=== PATIENT | female | born 1935 | race Caucasian/White ===

== ENCOUNTER 2016-10-12 15:52 | Inpatient (IN) | payer MEDICARE ==
[~2016-10-12 15:52] MED LIST: LEVOFLOXACIN 500MG-D5W PMX 500 MG in DEXTROSE/WATER 1 100ML.BAG IVPB STA
--- NOTE | 2016-10-12 16:13 | ED ---
General Adult HPI - General Source: patient, RN notes reviewed Mode of arrival: wheelchair Limitations: no limitations <Enoc Oropeza - Last Filed: 10/12/16 16:11> <Haris Owens - Last Filed: 10/12/16 19:55> - General Chief complaint: Shortness of Breath Stated complaint: SOB Time Seen by Provider: 10/12/16 15:59 - History of Present Illness Initial comments: Patient is a pleasant 80-year-old female presenting to the emergency department complaining of difficulty in breathing. Onset of symptoms was a couple of weeks ago. Symptoms have progressively worsened since that time. Symptoms do worsen with exertion. Patient does have fatigue. does have some increased leg swelling from normal. Patient does have occasional fluttering in her chest. No chest pain. Occasional nonproductive cough. (Enoc Oropeza) - Related Data Home Medications Medication Instructions Recorded Confirmed Allopurinol [Zyloprim] 300 mg PO DAILY 01/31/14 10/12/16 Furosemide [Lasix] 60 mg PO DAILY 01/31/14 10/12/16 Ibuprofen [Motrin] 800 mg PO BID 01/31/14 10/12/16 Levothyroxine Sodium [Synthroid] 100 mcg PO DAILY 01/31/14 10/12/16 Losartan [Cozaar] 50 mg PO BID 01/31/14 10/12/16 Simvastatin [Zocor] 40 mg PO HS 01/31/14 10/12/16 metFORMIN HCL [Glucophage] 500 mg PO BID 01/31/14 10/12/16 Glimepiride [Amaryl] 1 mg PO AC-BRKFST 03/10/16 10/12/16 Glucosamine HCl/Chondr Lemos A Na 1 tab PO DAILY 03/10/16 10/12/16 [Osteo Bi-Flex Caplet] Magnesium Oxide [Mag-Ox] 250 mg PO DAILY 03/10/16 10/12/16 Multivitamins, Thera [Multivitamin] 1 tab PO DAILY 03/19/16 10/12/16 hydrALAZINE HCL 25 mg PO BID 03/20/16 10/12/16 Apixaban [Eliquis] 2.5 mg PO BID 10/12/16 10/12/16 Aspirin EC [Ecotrin Low Dose] 81 mg PO DAILY 10/12/16 10/12/16 Flecainide [Tambocor] 50 mg PO BID 10/12/16 10/12/16 Pantoprazole Sodium [Protonix] 40 mg PO DAILY 10/12/16 10/12/16 Previous Rx's Medication Instructions Recorded Atenolol [Tenormin] 50 mg PO BID #60 tab 03/25/16 Allergies Allergy/AdvReac Type Severity Reaction Status Date / Time meperidine HCl [From Demerol] Allergy Nausea & Verified 10/12/16 17:33 Vomiting Penicillins Allergy Rash/Hives Verified 10/12/16 17:33 Sulfa (Sulfonamide Allergy Rash/Hives Verified 10/12/16 17:33 Antibiotics) Review of Systems ROS Other: All systems not noted in ROS Statement are negative. Constitutional: Denies: fever, chills Eyes: Denies: eye pain ENT: Denies: ear pain Respiratory: Reports: cough, dyspnea Cardiovascular: Reports: palpitations. Denies: chest pain Endocrine: Reports: fatigue Gastrointestinal: Denies: abdominal pain Genitourinary: Denies: dysuria Musculoskeletal: Denies: back pain Skin: Denies: rash Neurological: Reports: weakness (Generalized) <Enoc Oropeza - Last Filed: 10/12/16 16:11> ROS Other: All systems not noted in ROS Statement are negative. <Haris Owens - Last Filed: 10/12/16 19:55> ROS Statement: Those systems with pertinent positive or pertinent negative responses have been documented in the HPI. Past Medical History Past Medical History: Diabetes Mellitus, GERD/Reflux, Hyperlipidemia, Hypertension, Myocardial Infarction ([place]), Thyroid Disorder Last Myocardial Infarction Date:: 32 years ago History of Any Multi-Drug Resistant Organisms: None Reported Past Surgical History: Hysterectomy Additional Past Surgical History / Comment(s): hemmorrhoidectom/rectocele/ cystocele. vein stripping Past Anesthesia/Blood Transfusion Reactions: No Reported Reaction Past Psychological History: No Psychological Hx Reported Smoking Status: Never smoker Past Alcohol Use History: None Reported Past Drug Use History: None Reported - Past Family History Father Family Medical History: Coronary Artery Disease (CAD), Hyperlipidemia, Hypertension Mother Family Medical History: Unable to Obtain Sister(s) Family Medical History: Cancer <Enoc Oropeza - Last Filed: 10/12/16 16:11> General Exam Limitations: no limitations General appearance: alert, in no apparent distress Head exam: Present: atraumatic Eye exam: Present: normal appearance, PERRL ENT exam: Present: normal oropharynx Neck exam: Present: normal inspection Respiratory exam: Present: normal lung sounds bilaterally Cardiovascular Exam: Present: regular rate, normal rhythm GI/Abdominal exam: Present: soft. Absent: tenderness, guarding Extremities exam: Present: pedal edema. Absent: calf tenderness Neurological exam: Present: alert Psychiatric exam: Present: normal affect, normal mood Skin exam: Absent: rash <Enoc Oropeza - Last Filed: 10/12/16 16:11> EKG Findings - EKG Comments: EKG Findings:: Sinus rhythm at 76. First-degree AV block with a SC of 268. QRS 200. QT 452. QTC 508. Left axis. Left bundle branch block. Nonspecific ST-T. <Enoc Oropeza - Last Filed: 10/12/16 16:11> Medical Decision Making <Enoc Oropeza - Last Filed: 10/12/16 16:11> - Lab Data Result diagrams: 10/12/16 16:15 10/12/16 16:15 - Radiology Data Radiology results: report reviewed (X-ray were reviewed there is evidence of urinary fibrotic changes no acute findings otherwise), image reviewed <Haris Owens - Last Filed: 10/12/16 19:55> - Medical Decision Making I did a long discussion with the patient family regarding the findings patient will be admitted for treatment of renal failure and CHF. I did discuss the case with the attending covering Dr. Blood. (Haris Owens) - Lab Data Lab Results 10/12/16 10/12/16 10/12/16 Range/Units 16:15 16:15 16:15 WBC 9.5 (3.8-10.6) k/uL RBC 3.42 L (3.80-5.40) m/uL Hgb 10.8 L (11.4-16.0) gm/dL Hct 32.9 L (34.0-46.0) % MCV 96.0 (80.0-100.0) fL MCH 31.5 (25.0-35.0) pg MCHC 32.8 (31.0-37.0) g/dL RDW 16.0 H (11.5-15.5) % Plt Count 216 (150-450) k/uL Neutrophils % 75 % Lymphocytes % 17 % Monocytes % 5 % Eosinophils % 2 % Basophils % 0 % Neutrophils # 7.1 (1.3-7.7) k/uL Lymphocytes # 1.6 (1.0-4.8) k/uL Monocytes # 0.5 (0-1.0) k/uL Eosinophils # 0.2 (0-0.7) k/uL Basophils # 0.0 (0-0.2) k/uL PT (9.0-12.0) sec INR (<1.1) APTT (22.0-30.0) sec Sodium 141 (137-145) mmol/L Potassium 5.1 (3.5-5.1) mmol/L Chloride 108 H (98-107) mmol/L Carbon Dioxide 14 L (22-30) mmol/L Anion Gap 19 mmol/L BUN 102 H* (7-17) mg/dL Creatinine 3.41 H (0.52-1.04) mg/dL Est GFR (MDRD) Af Amer 16 (>60 ml/min/1.73 sqM) Est GFR (MDRD) Non-Af 13 (>60 ml/min/1.73 sqM) Glucose 136 H (74-99) mg/dL Calcium 9.2 (8.4-10.2) mg/dL Total Bilirubin 0.5 (0.2-1.3) mg/dL AST 23 (14-36) U/L ALT 31 (9-52) U/L Alkaline Phosphatase 107 (38-126) U/L Total Creatine Kinase 45 (30-135) U/L CK-MB (CK-2) 2.2 (0.0-2.4) ng/mL CK-MB (CK-2) Rel Index 4.9 Troponin I <0.012 (0.000-0.034) ng/mL NT-Pro-B Natriuret Pep pg/mL Total Protein 7.3 (6.3-8.2) g/dL Albumin 3.9 (3.5-5.0) g/dL 10/12/16 10/12/16 Range/Units 16:15 16:15 WBC (3.8-10.6) k/uL RBC (3.80-5.40) m/uL Hgb (11.4-16.0) gm/dL Hct (34.0-46.0) % MCV (80.0-100.0) fL MCH (25.0-35.0) pg MCHC (31.0-37.0) g/dL RDW (11.5-15.5) % Plt Count (150-450) k/uL Neutrophils % % Lymphocytes % % Monocytes % % Eosinophils % % Basophils % % Neutrophils # (1.3-7.7) k/uL Lymphocytes # (1.0-4.8) k/uL Monocytes # (0-1.0) k/uL Eosinophils # (0-0.7) k/uL Basophils # (0-0.2) k/uL PT 10.2 (9.0-12.0) sec INR 1.0 (<1.1) APTT 22.1 (22.0-30.0) sec Sodium (137-145) mmol/L Potassium (3.5-5.1) mmol/L Chloride (98-107) mmol/L Carbon Dioxide (22-30) mmol/L Anion Gap mmol/L BUN (7-17) mg/dL Creatinine (0.52-1.04) mg/dL Est GFR (MDRD) Af Amer (>60 ml/min/1.73 sqM) Est GFR (MDRD) Non-Af (>60 ml/min/1.73 sqM) Glucose (74-99) mg/dL Calcium (8.4-10.2) mg/dL Total Bilirubin (0.2-1.3) mg/dL AST (14-36) U/L ALT (9-52) U/L Alkaline Phosphatase (38-126) U/L Total Creatine Kinase (30-135) U/L CK-MB (CK-2) (0.0-2.4) ng/mL CK-MB (CK-2) Rel Index Troponin I (0.000-0.034) ng/mL NT-Pro-B Natriuret Pep 4000 pg/mL Total Protein (6.3-8.2) g/dL Albumin (3.5-5.0) g/dL Disposition <Enoc Oropeza - Last Filed: 10/12/16 16:11> <Haris Owens - Last Filed: 02/11/17 19:55> Clinical Impression: Congestive heart failure, Acute renal failure (ARF) Disposition: ADMITTED IP TO THIS HOSP Condition: Stable
[2016-10-12 16:30] LABS: Basophils % (A) 0 %; CH 32.2; CHCM 33.7; Eosinophils # (A) 0.2 k/uL (0-0.7); Eosinophils % (A) 2 %; HCT 32.9 % (34.0-46.0); HDW 3.13; HGB 10.8 gm/dL (11.4-16.0); Luc # (Auto) 0.19; Luc % (Auto) 2; Lymphocytes # (A) 1.6 k/uL (1.0-4.8); Lymphocytes % (A) 17 %; MCH 31.5 pg (25.0-35.0); MCHC 32.8 g/dL (31.0-37.0); Monocytes # (A) 0.5 k/uL (0-1.0); Monocytes % (A) 5 %; Neutrophils # (A) 7.1 k/uL (1.3-7.7); Neutrophils % (A) 75 %; RBC 3.42 m/uL (3.80-5.40); WBC 9.5 k/uL (3.8-10.6); WBC (Perox) 10.16
--- NOTE | 2016-10-12 16:30 | XR ---
EXAMINATION TYPE: XR chest 2V DATE OF EXAM: 10/12/2016 4:26 PM COMPARISON: 03/24/2016 HISTORY: Difficulty breathing. Chest pain. TECHNIQUE: Frontal and lateral views of the chest are obtained. FINDINGS: There is no heart failure nor confluent pneumonic infiltrate. There is mild coarsening of interstitial markings. There is a left axillary pacemaker with the lead tips in the right ventricle. There is no pleural effusion. IMPRESSION: Mild pulmonary fibrotic changes. No change compared to old exam.
[2016-10-12 16:40] LABS: Calcium 9.2 mg/dL (8.4-10.2); Potassium 5.1 mmol/L (3.5-5.1); Total Bilirubin 0.5 mg/dL (0.2-1.3); Total Protein 7.3 g/dL (6.3-8.2)
[2016-10-12 16:43] LABS: Partial Thromboplastin Time 22.1 sec (22.0-30.0); Prothrombin Time 10.2 sec (9.0-12.0)
[2016-10-12 16:59] LABS: Creatine Kinase 45 U/L (30-135)
[2016-10-12 17:12] LABS: Creatine Kinase MB 2.2 ng/mL (0.0-2.4); Troponin I <0.012 ng/mL (0.000-0.034)
[2016-10-12] MEDS ORDERED: FUROSEMIDE 10 MG/ML 4 ML VIAL IV SCH (20:00)
[2016-10-12] MEDS ORDERED: SODIUM CHLORIDE 0.9% 1,000 ML IV SCH (20:00)
[2016-10-12] MEDS ORDERED: LOSARTAN 50 MG TAB PO SCH (21:00)
[2016-10-12] MEDS ORDERED: metFORMIN 500 MG TAB PO SCH (21:00)
--- NOTE | 2016-10-12 21:13 | P.HPIM ---
History of Present Illness Chief complaint and history of present illness: Patient presented to the emergency room this evening with complaints of shortness of breath and weakness that has appeared to be worsening over some weeks now and getting worse to the point where she could not get up and around doing her normal activities in the house or outside. She also has noted some increase edema. Some decreased appetite. Mild cough. Shortness of breath with exertion. No definite fever or chills. No nausea or vomiting or diarrhea. She states that she has noticed abdominal girth increasing but not noticing any change in her bowel movements. No blood in her stools. She's been compliant with taking all her medications. Past medical history: 1. Patient does have a history of previous pacemaker placement for sick sinus syndrome. At one point she did have some congestive heart failure related to her bradycardia which resolved. Patient did have an echocardiogram last March which revealed an ejection fraction at that time normal at 55-60%. 2. Diabetes type 2 on oral medications 3. Hypertension 4. Hypothyroidism on replacement therapy 5. Previous surgeries that include hysterectomy, vein stripping and hemorrhoidectomy. 6. History of sleep apnea. Medications: ALLERGIES to penicillin and sulfa along with Demerol. Home medications: Please refer to list. Metformin 500 mg twice a day Hydralazine 25 mg twice a day Simvastatin 40 mg at at bedtime Protonix 40 mg daily Multiple vitamin 1 daily Mag oxide 250 mg daily Cozaar 50 mg twice a day Levothyroxin 100 g daily Ibuprofen 800 mg twice a day Glucosamine one daily Glimepiride 1 mg before breakfast Lasix 60 mg daily Flecainide 50 mg twice a day Atenolol 50 mg twice a day Aspirin 81 mg daily Eloquis 2.5 mg twice a day Allopurinol 300 mg daily. Review of systems: Basically as listed in the history of present illness Social history: The patient lives up in the [facility] and apparently is cared for by her daughter. She does not smoke or drink alcohol. Her about 10 years ago. Family history: Positive for heart disease. Father had coronary artery disease and hypertension and hyperlipidemia. Physical examination: Patient is lying in bed in no acute distress slightly flushed in the face. Temperature is 98.2 with a pulse of 70 respirations 20 and blood pressure 156/ 82. She is 96% saturated with 2 L nasal cannula. Mild facial flushing. Head and neck exam otherwise unremarkable. Extraocular movements were intact. Neck is supple without thyromegaly, adenopathy, or bruits detected. Breasts exam does not reveal any definite nodules. Lungs are generally clear to auscultation. Heart tones were somewhat distant but regular without murmurs or rubs appreciated. Abdomen is obese but positive bowel sounds. Soft and nontender without organomegaly or masses detected. Patient does have compression stockings in place but does have a grade 2 edema bilaterally without any tenderness. Neurologically she is alert and oriented. Cranial nerves intact. No focal weakness noted. Laboratory values: White count was 9.5 with a hemoglobin 10.8 and a platelet count of 216. INR is 1.0. BUN was 102 with a creatinine of 3.41 giving her GFR of 13. Sodium 141 with potassium IV 0.1 and a CO2 content of 14. Anion gap elevated at 19. Glucose is 136. Calcium was normal at 9.2. Other liver function tests and bilirubin and alk phos were normal. CK and troponin values normal. Albumin is 3.9. BNP was 4000. EKG shows a sinus rhythm with first-degree block and left axis deviation and left bundle branch block pattern. Chest x-ray is reported as mild fibrotic changes but no changes compared to last years exam in March. Impressions: 1. Acute on chronic renal failure etiology not determined at this time. Could be related to prerenal causes and need to rule out underlying urinary tract infection and sepsis. Need to check for any underlying obstruction. Patient is on multiple medications that can have some renal effects. 2. Possibility of acute congestive heart failure. 3. Hypertension 4. Hypothyroidism 5. Hyperlipidemia 6. Sleep apnea 7. Previous surgical history includes hysterectomy, hemorrhoidectomy, pacemaker placement and a stripping in the past. Plans: At this point we will attempt to rehydrate the patient gently. We will hold the patient's metformin, magnesium, losartan, ibuprofen, Lasix, and allopurinol. Renal ultrasound and echocardiogram ordered. Accu-Cheks and insulin coverage. Consult with cardiology and nephrology. Repeat renal function labs along with magnesium and thyroid function. Urinalysis and culture. Further recommendations and treatment pending clinical response and results of above. Discussed with patient and family at bedside along with the emergency room physician. Prognosis is guarded. Past Medical History Past Medical History: Diabetes Mellitus, GERD/Reflux, Hyperlipidemia, Hypertension, Myocardial Infarction ([place]), Thyroid Disorder Last Myocardial Infarction Date:: 32 years ago History of Any Multi-Drug Resistant Organisms: None Reported Past Surgical History: Hysterectomy Additional Past Surgical History / Comment(s): hemmorrhoidectom/rectocele/ cystocele. vein stripping Past Anesthesia/Blood Transfusion Reactions: No Reported Reaction Past Psychological History: No Psychological Hx Reported Smoking Status: Never smoker Past Alcohol Use History: None Reported Past Drug Use History: None Reported - Past Family History Father Family Medical History: Coronary Artery Disease (CAD), Hyperlipidemia, Hypertension Mother Family Medical History: Unable to Obtain Sister(s) Family Medical History: Cancer Medications and Allergies Home Medications Medication Instructions Recorded Confirmed Type Allopurinol [Zyloprim] 300 mg PO DAILY 01/31/14 10/12/16 History Furosemide [Lasix] 60 mg PO DAILY 01/31/14 10/12/16 History Ibuprofen [Motrin] 800 mg PO BID 01/31/14 10/12/16 History Levothyroxine Sodium [Synthroid] 100 mcg PO DAILY 01/31/14 10/12/16 History Losartan [Cozaar] 50 mg PO BID 01/31/14 10/12/16 History Simvastatin [Zocor] 40 mg PO HS 01/31/14 10/12/16 History metFORMIN HCL [Glucophage] 500 mg PO BID 01/31/14 10/12/16 History Glimepiride [Amaryl] 1 mg PO AC-BRKFST 03/10/16 10/12/16 History Glucosamine HCl/Chondr Lemos A Na 1 tab PO DAILY 03/10/16 10/12/16 History [Osteo Bi-Flex Caplet] Magnesium Oxide [Mag-Ox] 250 mg PO DAILY 03/10/16 10/12/16 History Multivitamins, Thera [Multivitamin] 1 tab PO DAILY 03/19/16 10/12/16 History hydrALAZINE HCL 25 mg PO BID 03/20/16 10/12/16 History Apixaban [Eliquis] 2.5 mg PO BID 10/12/16 10/12/16 History Aspirin EC [Ecotrin Low Dose] 81 mg PO DAILY 10/12/16 10/12/16 History Flecainide [Tambocor] 50 mg PO BID 10/12/16 10/12/16 History Pantoprazole Sodium [Protonix] 40 mg PO DAILY 10/12/16 10/12/16 History Allergies Allergy/AdvReac Type Severity Reaction Status Date / Time meperidine HCl [From Demerol] Allergy Nausea & Verified 10/12/16 17:33 Vomiting Penicillins Allergy Rash/Hives Verified 10/12/16 17:33 Sulfa (Sulfonamide Allergy Rash/Hives Verified 10/12/16 17:33 Antibiotics) Results CBC & Chem 7: 10/12/16 16:15 10/12/16 16:15
[2016-10-12 22:10] LABS: Appearance,Urine Turbid (Clear); Bacteria,Urine Many /hpf; Bilirubin,Urine Negative (Negative); Glucose,Urine (UA) Negative (Negative); Ketones,Urine Negative (Negative); Leukocyte Esterase,Urine Large (Negative); Nitrite,Urine Negative (Negative); PH, Urine 5.5 (5.0-8.0); Particle Count 7463; Protein,Urine 1+ (Negative); Specific Gravity,Urine 1.014 (1.001-1.035); Squamous Epithelial Cell,Urine 2 /hpf (0-4); UA Billing (MACRO vs. MICRO) MICRO; Urobilinogen,Urine <2.0 mg/dL (<2.0); WBC,Urine >182 /hpf (0-5)
[2016-10-12] MEDS: APIXABAN 2.5 MG TABLET PO SCH (22:23)
[2016-10-12] MEDS: hydrALAZINE HCL 25 MG TAB PO SCH (22:23)
[2016-10-12] MEDS: ATENOLOL 50 MG TAB PO SCH (22:23)
[2016-10-12] MEDS: FLECAINIDE 50 MG TAB PO SCH (22:23)
[2016-10-12] MEDS: ATORVASTATIN 20 MG TAB PO SCH (22:23)
[2016-10-12 22:24] LABS: Glucose,Whole Blood 136 mg/dL (75-99)
[2016-10-12] MEDS: INSULIN LISPRO (humaLOG) 300 UNIT/3 ML VIAL SQ SCH (22:32)
[2016-10-12] MEDS: SODIUM CHLORIDE 0.9% 1,000 ML IV SCH (22:33)
[2016-10-12] MEDS ORDERED: TEMAZEPAM 7.5 MG CAP PO PRN (23:31)
[2016-10-13 06:16] LABS: Glucose,Whole Blood 97 mg/dL (75-99)
[2016-10-13] MEDS: SODIUM CHLORIDE 0.9% 1,000 ML IV SCH (06:17)
[2016-10-13] MEDS: INSULIN LISPRO (humaLOG) 300 UNIT/3 ML VIAL SQ SCH ×4 (06:38→21:04)
[2016-10-13] MEDS: PANTOPRAZOLE 40 MG TABLET PO SCH (06:39)
[2016-10-13] MEDS: GLIMEPIRIDE 1 MG TAB PO SCH (06:39)
[2016-10-13] MEDS: LEVOTHYROXINE 100 MCG TAB PO SCH (06:39)
[2016-10-13 07:13] LABS: Anisocytosis Slight; Basophils % (A) 0 %; CHCM 33.1; Eosinophils # (A) 0.2 k/uL (0-0.7); Eosinophils % (A) 2 %; HCT 29.5 % (34.0-46.0); HDW 3.07; HGB 9.7 gm/dL (11.4-16.0); Luc # (Auto) 0.15; Luc % (Auto) 2; Lymphocytes # (A) 1.3 k/uL (1.0-4.8); Lymphocytes % (A) 17 %; MCHC 32.9 g/dL (31.0-37.0); MCV 97.4 fL (80.0-100.0); Macrocytosis Slight; Mean Platelet Volume 8.1; Monocytes # (A) 0.4 k/uL (0-1.0); Monocytes % (A) 6 %; Neutrophils # (A) 5.3 k/uL (1.3-7.7); Neutrophils % (A) 72 %; RBC 3.03 m/uL (3.80-5.40); WBC 7.3 k/uL (3.8-10.6)
[2016-10-13 07:26] LABS: Magnesium 1.9 mg/dL (1.6-2.3); Potassium 4.3 mmol/L (3.5-5.1)
--- NOTE | 2016-10-13 08:31 | US ---
EXAMINATION TYPE: US kidneys/renal and bladder DATE OF EXAM: 10/13/2016 8:18 AM COMPARISON: NONE CLINICAL HISTORY: acute renal failure. possible UTI EXAM MEASUREMENTS: Right Kidney: 11.5 x 4.6 x 5.2cm Left Kidney: 10.6 x 3.9 x 4.9cm TECHNOLOGIST IMPRESSION: There is no evidence for hydronephrosis at this point in time. No nephroli thiasis is seen. No masses are identified. The urinary bladder is anechoic. Bilateral ureteral jet s are seen. Right Kidney: No hydronephrosis or masses seen. There is normal cortical medullary differentiation. N o shadowing renal calculi. Left Kidney: No hydronephrosis or masses seen. There is normal cortical medullary differentiation. No shadowing renal calculi. Bladder: wnl Bilateral Jets seen: Yes IMPRESSION: No evidence of hydronephrosis, nephrolithiasis, or medical renal disease.
[2016-10-13] MEDS: hydrALAZINE HCL 25 MG TAB PO SCH ×2 (08:42→20:08)
[2016-10-13] MEDS: FLECAINIDE 50 MG TAB PO SCH ×2 (08:42→20:08)
[2016-10-13] MEDS: ASPIRIN 81 MG CHEW PO SCH (08:42)
[2016-10-13] MEDS: ATENOLOL 50 MG TAB PO SCH ×2 (08:42→20:08)
[2016-10-13] MEDS: APIXABAN 2.5 MG TABLET PO SCH ×2 (08:42→20:08)
[2016-10-13] MEDS ORDERED: NON-FORMULARY DRUG (Glucosamine Hcl/Chondr Su A Na [Osteo Bi-Flex Caplet] 1 TAB) PO SCH (09:00)
[2016-10-13] MEDS ORDERED: ALLOPURINOL 300 MG TAB PO SCH (09:00)
[2016-10-13] MEDS ORDERED: ALLOPURINOL 100 MG TAB PO SCH (09:00)
--- NOTE | 2016-10-13 09:34 | P.NPCON ---
History of Present Illness - Reason for Consult Consult date: 10/13/16 acute renal failure - History of Present Illness 80 year old female came in with weakness. Noted in the ED to have [id number]/ 3.4. Baseline creat is 1.2-1.4. She was recently started on lasix 60mg qd and is taking motrin 800mg bid (has been fro a long time). UA + for a UTI. Started on IVf and creat has improved to 2.9. No diarrhea but no no appetite. Renal US was negative. Review of Systems All systems: negative Past Medical History Past Medical History: Diabetes Mellitus, GERD/Reflux, Hyperlipidemia, Hypertension, Myocardial Infarction ([place]), Thyroid Disorder Last Myocardial Infarction Date:: 32 years ago History of Any Multi-Drug Resistant Organisms: None Reported Past Surgical History: Hysterectomy Additional Past Surgical History / Comment(s): hemmorrhoidectom/rectocele/ cystocele. vein stripping Past Anesthesia/Blood Transfusion Reactions: No Reported Reaction Type of Cardiac Device: Permanent Pacemaker Device Placement Date:: 03/2016 Past Psychological History: No Psychological Hx Reported Smoking Status: Never smoker Past Alcohol Use History: None Reported Past Drug Use History: None Reported - Past Family History Father Family Medical History: Coronary Artery Disease (CAD), Hyperlipidemia, Hypertension Mother Family Medical History: Unable to Obtain Sister(s) Family Medical History: Cancer Medications and Allergies Home Medications Medication Instructions Recorded Confirmed Type Allopurinol [Zyloprim] 300 mg PO DAILY 01/31/14 10/12/16 History Furosemide [Lasix] 60 mg PO DAILY 01/31/14 10/12/16 History Ibuprofen [Motrin] 800 mg PO BID 01/31/14 10/12/16 History Levothyroxine Sodium [Synthroid] 100 mcg PO DAILY 01/31/14 10/12/16 History Losartan [Cozaar] 50 mg PO BID 01/31/14 10/12/16 History Simvastatin [Zocor] 40 mg PO HS 01/31/14 10/12/16 History metFORMIN HCL [Glucophage] 500 mg PO BID 01/31/14 10/12/16 History Glimepiride [Amaryl] 1 mg PO AC-BRKFST 03/10/16 10/12/16 History Glucosamine HCl/Chondr Lemos A Na 1 tab PO DAILY 03/10/16 10/12/16 History [Osteo Bi-Flex Caplet] Magnesium Oxide [Mag-Ox] 250 mg PO DAILY 03/10/16 10/12/16 History Multivitamins, Thera [Multivitamin] 1 tab PO DAILY 03/19/16 10/12/16 History hydrALAZINE HCL 25 mg PO BID 03/20/16 10/12/16 History Apixaban [Eliquis] 2.5 mg PO BID 10/12/16 10/12/16 History Aspirin EC [Ecotrin Low Dose] 81 mg PO DAILY 10/12/16 10/12/16 History Flecainide [Tambocor] 50 mg PO BID 10/12/16 10/12/16 History Pantoprazole Sodium [Protonix] 40 mg PO DAILY 10/12/16 10/12/16 History Allergies Allergy/AdvReac Type Severity Reaction Status Date / Time meperidine HCl [From Demerol] Allergy Nausea & Verified 10/12/16 17:33 Vomiting Penicillins Allergy Rash/Hives Verified 10/12/16 17:33 Sulfa (Sulfonamide Allergy Rash/Hives Verified 10/12/16 17:33 Antibiotics) Physical Exam Vitals: Vital Signs Temp Pulse Resp BP Pulse Ox 10/13/16 08:00 96.9 F L 78 20 115/59 96 10/13/16 04:00 97.4 F L 75 18 113/56 98 10/13/16 00:00 97.0 F L 61 17 131/60 100 Intake and Output 10/12/16 10/13/16 10/13/16 22:59 06:59 14:59 Intake Total 400 240 Output Total 350 525 Balance -350 -125 240 Intake: Oral 400 240 Output: Urine 350 525 Other: Voiding Method Toilet # Voids 1 Weight 96.8 kg 96.2 kg - Constitutional General appearance: cooperative - Respiratory Respiratory: bilateral: CTA - Cardiovascular Rhythm: regular Heart sounds: normal: S1, S2 leg Peripheral Edema: bilateral: Trace - Gastrointestinal General gastrointestinal: normal bowel sounds, soft Results - Lab Results Most recent lab results Calcium 9.0 mg/dL (8.4-10.2) 10/13/16 05:55 Magnesium 1.9 mg/dL (1.6-2.3) 10/13/16 05:55 10/13/16 05:55 10/13/16 05:55 Assessment and Plan Plan: Assessment: 1. Nonoliguric BETINA due to volume depletion and chronic Motrin. 2. Stage III CKD with baseline creatinien 1.2-1.4 due to nephroslcerosis. 3. Metabolc Acidosis 4. UTI Plan: 1. Change IVF to D5W with 150meq NaHCO3. 2. Hold metformin. 3. Check BMP in am. 4. On levaquin for UTI.
--- NOTE | 2016-10-13 10:08 | P.PN ---
Progress Note - Text The patient is an 80-year-old female who presented yesterday to the emergency room with increasing weakness and fluid retention. She did have some dysuria. She was found to have acute renal failure with acute kidney injury nonoliguric with a initial BUN of 102 and creatinine of 3.41 and GFR of 13. Her furosemide and some of her other home medications have been held and she has been hydrated through the night. She also has had 1 dose of Levaquin and has been found to have marked pyuria in her urine. Culture pending. Patient herself is alert and oriented and states she feels somewhat better. Denies any unusual pain or shortness of breath. Vital signs reveal temperature of 96.9 with a pulse of 78 and respirations 20 and nonlabored. Blood pressure is 115/59 and she is 96% saturated on 2 L. Head and neck exam unremarkable. Lung and heart exam is clear at this time. Monitor shows sinus rhythm and at times pacemaker rhythm through the night. Patient still with a grade 1 distal edema. Some improvement since yesterday No focal neurological changes. Patient has put out about 900 mL of fluid since admission. Her weight is slightly down though from 96.8 kg to 96.2 kg. Laboratory values: White count is stable at 7.3 with slightly decreased hemoglobin 9.7 after hydration. Platelet count 183. BUN is 96 with a creatinine of 2.9 and a GFR of 16 showing hottest improvement over yesterday's. Blood sugar is 97. CO2 content slightly increased at 15. Potassium is 4.3 and sodium 142. Other testing showed a normal TSH 1.06 and normal magnesium 1.9. A urinalysis did reveal large leukocyte esterase with greater than 182 white cells. A bladder and kidney ultrasound did not show any evidence of obstruction or hydronephrosis. Impressions and plans: Patient has been seen by nephrology this morning. Their impressions are the patient has nonoliguric acute kidney injury from volume depletion and usage of anti-inflammatory medicine. This is associated with metabolic acidosis and likely an underlying urinary tract infection with possible sepsis and inflammatory response syndrome. Fluid administration has been changed per nephrology. Patient did receive a dose of Levaquin pending culture of her urine. Patient is ALLERGIC to penicillin and sulfa. Repeat laboratory values for tomorrow. We'll continue to hold some of her home medications which include her metformin , magnesium, losartan, ibuprofen, Lasix and allopurinol. Some of which may be reinstated pending clinical response. Anemia likely related to underlying kidney disease. Further workup may be needed if persistent. Protein electrophoresis ordered. Dr. Phil Blood to resume care tomorrow.
[2016-10-13] MEDS: DEXTROSE 5% IN WATER 1,000 ML with SODIUM BICARB (1 MEQ/ML) 150 ML IV SCH ×2 (11:29→21:01)
[2016-10-13] MEDS: MULTIVITAMINS, THERA 1 EACH TAB PO SCH (11:31)
[2016-10-13 11:34] LABS: Glucose,Whole Blood 110 mg/dL (75-99)
--- NOTE | 2016-10-13 11:41 | CONS ---
DATE OF CONSULTATION: CHIEF COMPLAINT: Shortness of breath Yamilet is an 80-year-old lady with history of type 2 diabetes, hypertension, hypothyroidism, sleep apnea, who presented to the hospital complaining of feeling fatigued, tired, and shortness of breath that has been getting worse over the last 1 to 2 weeks prior to coming in. She was getting tired and short of breath with very minimal activity. While I do not have LV function from this admission, she had an echo in the past that showed normal LV systolic function. She had been diuresed and developed significant prerenal azotemia. Her diuretics are currently on hold and she is receiving IV fluids. I do not believe she came in with congestive heart failure. Her chest x-ray did not reveal pulmonary congestion. She does not have significant leg edema. She had elevated BNP. Past medical history is significant for hypertension, diabetes, dyslipidemia, sick sinus syndrome, status post permanent pacemaker placement. Hypothyroidism, sleep apnea, hysterectomy, vein stripping hemorrhoidectomy, history of atrial fibrillation. Medications include: 1. Glucophage 500 b.i.d. 2. Hydralazine 25 b.i.d. 3. Zocor 40 daily. 4. Protonix. 5. Cozaar 50 b.i.d. 6. Synthroid. 7. Lasix. 8. Amaryl. 9. Tambocor. 10. Tenormin. 11. Zyloprim. 12. Eliquis. ALLERGIES: DEMEROL, PENICILLIN AND SULFA. FAMILY HISTORY: Negative for premature coronary artery disease. SOCIAL HISTORY: Negative for current smoking, ETOH abuse, or drug abuse. REVIEW OF SYSTEMS: HEENT: Unremarkable. CARDIAC: As described above. RESPIRATORY: As described above. GI: Negative. GENITOURINARY: As described above. PSYCHOSOCIAL: Negative. ENDOCRINE: Negative. Dermatological: Negative. CONSTITUTIONAL: Significant for not feeling well. Oncological: Negative. The rest of the system review is not relevant. EKG shows sinus rhythm with left bundle branch block with occasional PVCs. ASSESSMENT: 1. Acute exacerbation of chronic renal failure, shortness of breath, probably unrelated to heart failure. 2. Hypertension. 3. Paroxysmal atrial fibrillation. 4. Sick sinus syndrome, status post permanent pacemaker placement. I agree with holding the diuretics at this time. Continue the atenolol, aspirin and Eliquis, Apresoline and Insulin. Continue the Tambocor also.
[2016-10-13] MEDS ORDERED: MAGNESIUM OXIDE 250 MG TAB PO SCH (12:00)
[2016-10-13 13:58] LABS: Hemoglobin A1C 6.3 % (4.2-6.1)
[2016-10-13 16:39] LABS: Glucose,Whole Blood 164 mg/dL (75-99)
[2016-10-13] MEDS: ATORVASTATIN 20 MG TAB PO SCH (20:08)
[2016-10-13 21:42] LABS: Glucose,Whole Blood 195 mg/dL (75-99)
[2016-10-14 07:04] LABS: Glucose,Whole Blood 157 mg/dL (75-99)
[2016-10-14] MEDS: PANTOPRAZOLE 40 MG TABLET PO SCH (07:08)
[2016-10-14] MEDS: INSULIN LISPRO (humaLOG) 300 UNIT/3 ML VIAL SQ SCH ×4 (07:08→22:15)
[2016-10-14] MEDS: GLIMEPIRIDE 1 MG TAB PO SCH (07:08)
[2016-10-14] MEDS: LEVOTHYROXINE 100 MCG TAB PO SCH (07:08)
[2016-10-14 07:17] LABS: Calcium 9.1 mg/dL (8.4-10.2); Potassium 4.2 mmol/L (3.5-5.1)
--- NOTE | 2016-10-14 07:37 | ECHOF ---
Referral Reason: MEASUREMENTS -------- HEIGHT: 167.6 cm WEIGHT: 97.5 kg BP: 115/59 IVSd: 1.1 cm (0.6 - 1.1) LVIDd: 4.9 cm (3.9 - 5.3) LVPWd: 1.1 cm (0.6 - 1.1) LVIDs: 3.4 cm LA Diam: 3.9 cm (2.7 - 3.8) RVIDd: 3.9 cm (< 3.3) LAESV Index (A-L): 30.66 ml/m Ao Diam: 3.4 cm (2.0 - 3.7) AV Cusp: 2.0 cm (1.5 - 2.6) EPSS: 1.0 cm MV E Earnest: 1.29 m/s MV DecT: 194 ms MV A Earnest: 0.74 m/s MV E/A Ratio: 1.75 AV maxP.45 mmHg AV meanP.26 mmHg RAP: 5.00 mmHg RVSP: 48.16 mmHg MV EF SLOPE: 39.96 mm/s (70 - 150) MV EXCURSION: 17.70 mm (> 18.000) FINDINGS -------- Sinus rhythm with extra systolic beats. This was a technically good study. The left ventricular size is normal. There is borderline concentric left ventricular hypertrophy. Overall left ventricular systolic function is normal with, an EF between 55 - 60 %. The right ventricle is moderately enlarged. LA is midly dilated 29-33ml/m2. The right atrium is normal in size. Aortic valve is trileaflet and is mildly thickened. There is mild aortic stenosis present. Peak/mean gradient across the Aortic Valve is 13.45mmHg / 7.26mmHg. The mitral valve leaflets are mildly thickened. Mild mitral annular calcification present. Mild mitral regurgitation is present. Mild tricuspid regurgitation present. There is moderate pulmonary hypertension. The right ventricular systolic pressure, as measured by Doppler, is 48.16mmHg. Trace/mild (physiologic) pulmonic regurgitation. The aortic root size is normal. The inferior vena cava is mildly dilated. There is no pericardial effusion. CONCLUSIONS -------- 1. Sinus rhythm with extra systolic beats. 2. There is mild aortic stenosis present. 3. Peak/mean gradient across the Aortic Valve is 13.45mmHg / 7.26mmHg. 4. The mitral valve leaflets are mildly thickened. 5. Mild mitral annular calcification present. 6. Mild mitral regurgitation is present. 7. Mild tricuspid regurgitation present. 8. There is moderate pulmonary hypertension. 9. The right ventricular systolic pressure, as measured by Doppler, is 48.16mmHg. 10. Trace/mild (physiologic) pulmonic regurgitation. 11. The aortic root size is normal. 12. This was a technically good study. 13. The inferior vena cava is mildly dilated. 14. There is no pericardial effusion. 15. The left ventricular size is normal. 16. There is borderline concentric left ventricular hypertrophy. 17. Overall left ventricular systolic function is normal with, an EF between 55 - 60 %. 18. The right ventricle is moderately enlarged. 19. LA is midly dilated 29-33ml/m2. 20. The right atrium is normal in size. 21. Aortic valve is trileaflet and is mildly thickened. POTASH FLAKER: Payton Duenas RDCS
[2016-10-14 09:25] LABS: Anisocytosis Slight; CH 32.2; CHCM 33.8; HCT 28.7 % (34.0-46.0); HDW 3.08; HGB 9.6 gm/dL (11.4-16.0); MCH 32.1 pg (25.0-35.0); MCHC 33.4 g/dL (31.0-37.0); Mean Platelet Volume 8.3; RBC 2.99 m/uL (3.80-5.40); WBC 7.2 k/uL (3.8-10.6)
[2016-10-14] MEDS: DEXTROSE 5% IN WATER 1,000 ML with SODIUM BICARB (1 MEQ/ML) 150 ML IV SCH (09:33)
[2016-10-14] MEDS: hydrALAZINE HCL 25 MG TAB PO SCH ×2 (09:34→22:14)
[2016-10-14] MEDS: MULTIVITAMINS, THERA 1 EACH TAB PO SCH (09:34)
[2016-10-14] MEDS: APIXABAN 2.5 MG TABLET PO SCH ×2 (09:34→22:14)
[2016-10-14] MEDS: ASPIRIN 81 MG CHEW PO SCH (09:35)
[2016-10-14] MEDS: ATENOLOL 50 MG TAB PO SCH ×2 (09:35→22:14)
[2016-10-14] MEDS: FLECAINIDE 50 MG TAB PO SCH ×2 (09:35→22:14)
--- NOTE | 2016-10-14 11:11 | P.PN ---
Subjective Principal diagnosis: Renal failure This is an 80-year-old female with history of diabetes, hypertension, hyperlipidemia, hypothyroidism, sleep apnea, sick sinus syndrome with prior pacemaker implantation, paroxysmal atrial fibrillation who follows with Dr. Starr in the office. She presented to the hospital mainly with symptoms of feeling fatigued and tired. She also states that she's had progressively worsening shortness of breath. Patient had been diuresed significantly and developed prerenal azotemia. Currently her diuretics are on hold and she is receiving IV fluids. Chest x-ray on admission did not reveal any evidence of pulmonary congestion. Echocardiogram with Doppler study performed on admission revealed an ejection fraction of 55-60%. Blood pressure this morning 140/68 heart rate in the 60s. Potassium 4.2, BUN 77, creatinine 2.5. Patient was seen and examined, overall she states she feels well. Denies any shortness of breath. Objective - Vital Signs Vital signs: Vital Signs Temp 97.0 F L 10/14/16 08:00 Pulse 67 10/14/16 08:00 Resp 18 10/14/16 08:00 BP 149/68 10/14/16 08:00 Pulse Ox 96 10/14/16 08:00 Intake & Output 10/13/16 10/14/16 10/14/16 18:59 06:59 18:59 Intake Total 1380 1000 420 Output Total 300 600 600 Balance 1080 400 -180 Weight 97.4 kg Intake: IV 1000 Dextrose 5% in Water 1, 1000 000 ml @ 100 mls/hr IV . [id number] [place] with Sodium Bicarb (1 Meq/ml) 150 ml Rx#:[id number] Intake, IV Titration 800 Amount Dextrose 5% in Water 1, 400 000 ml @ 100 mls/hr IV . [id number] [place] with Sodium Bicarb (1 Meq/ml) 150 ml Rx#:[id number] Sodium Chloride 0.9% 1, 400 000 ml @ 100 mls/hr IV . Q10H [place] Rx#:[id number] Oral 580 420 Output: Urine 300 600 600 Other: Voiding Method Toilet Toilet Toilet # Voids 1 - Exam PHYSICAL EXAMINATION: HEENT: Head is atraumatic, normocephalic. Pupils equal, round. Neck is supple. There is no elevated jugular venous pressure. HEART EXAMINATION: Heart S1, S2 normal. No murmur or gallop heard. CHEST EXAMINATION: Lungs are clear to auscultation and precussion. No chest wall tenderness is noted on palpation or with deep breathing. ABDOMEN: Soft, nontender. Bowel sounds are heard. No organomegaly noted. EXTREMITIES: 2+ peripheral pulses with trace evidence of peripheral edema and no calf tenderness noted. NEUROLOGIC patient is awake, alert and oriented -3. . - Labs CBC & Chem 7: 10/14/16 05:26 10/14/16 05:47 Labs: Abnormal Lab Results - Last 24 Hours (Table) 10/13/16 10/13/16 10/13/16 Range/Units 05:55 11:33 16:37 RBC (3.80-5.40) m/uL Hgb (11.4-16.0) gm/dL Hct (34.0-46.0) % RDW (11.5-15.5) % Chloride (98-107) mmol/L BUN (7-17) mg/dL Creatinine (0.52-1.04) mg/dL Glucose (74-99) mg/dL POC Glucose (mg/dL) 110 H 164 H (75-99) mg/dL Hemoglobin A1c 6.3 H (4.2-6.1) % 10/13/16 10/14/16 10/14/16 Range/Units 20:58 05:26 05:47 RBC 2.99 L (3.80-5.40) m/uL Hgb 9.6 L (11.4-16.0) gm/dL Hct 28.7 L (34.0-46.0) % RDW 16.0 H (11.5-15.5) % Chloride 108 H (98-107) mmol/L BUN 77 H (7-17) mg/dL Creatinine 2.53 H (0.52-1.04) mg/dL Glucose 150 H (74-99) mg/dL POC Glucose (mg/dL) 195 H (75-99) mg/dL Hemoglobin A1c (4.2-6.1) % 10/14/16 Range/Units 06:26 RBC (3.80-5.40) m/uL Hgb (11.4-16.0) gm/dL Hct (34.0-46.0) % RDW (11.5-15.5) % Chloride (98-107) mmol/L BUN (7-17) mg/dL Creatinine (0.52-1.04) mg/dL Glucose (74-99) mg/dL POC Glucose (mg/dL) 157 H (75-99) mg/dL Hemoglobin A1c (4.2-6.1) % Microbiology - Last 24 Hours (Table) 10/12/16 21:40 Urine Culture - Preliminary Urine,Clean Catch Assessment and Plan (1) Pacemaker Status: Acute (2) Sleep apnea Status: Acute (3) Acute renal failure (ARF) Status: Acute (4) Diabetes mellitus Status: Acute (5) Hypertension Status: Acute (6) Paroxysmal a-fib Status: Acute Plan: From cardiology's perspective, we will recommend to continue the patient on her current medications. Continue to hold diuretics at this time. Once she is discharged home from the hospital we'll make her follow-up appointment with Dr. Starr in the office post discharge. DNP note has been reviewed, I agree with a documented findings and plan of care. Patient was seen and examined.
[2016-10-14 12:15] LABS: Glucose,Whole Blood 150 mg/dL (75-99)
[2016-10-14 14:27] VITALS: BMI 34.6
--- NOTE | 2016-10-14 15:07 | PN ---
Patient is seen for followup for acute kidney injury. She had been taking Motrin at home prior to admission. She is being treated for urinary tract infection and is maintained on IV fluids. Her serum creatinine has improved from 3.4 on admission to 2.53 now. Patient has had good urine output. She is maintained on a bicarb drip. On examination, blood pressure is 137/62, heart rate 62 per minute. She is afebrile. Examination of the heart, S1 and S2. Examination of the lungs, bilateral breath sounds are heard. Abdomen is soft, nontender. Examination of lower extremities shows no significant edema. [employer] exam is grossly intact. Labs show sodium 143, potassium 4.2, chloride 108, CO2 is 24, BUN 77, serum creatinine 2.53, hemoglobin at 9.6 g/dL. ASSESSMENT: 1. Acute kidney injury, prerenal, currently improving. Also, a component from acute kidney injury from NSAIDs. Patient is advised to avoid the use of NSAIDs on a long-term basis. 2. Hypovolemia. Continue IV fluids. 3. Non-gap metabolic acidosis secondary to renal failure, maintained on IV bicarb, currently improved. Will switch the bicarb to IV saline. 4. Urinary tract infection with gram-negative bacilli on urine culture. Plan is DC IV bicarb, switch fluids to normal saline. Avoid NSAIDs. Repeat labs in a.m.
[2016-10-14 16:40] LABS: Glucose,Whole Blood 86 mg/dL (75-99)
[2016-10-14] MEDS: SODIUM CHLORIDE 0.9% 1,000 ML IV SCH (17:25)
[2016-10-14 20:43] LABS: Glucose,Whole Blood 177 mg/dL (75-99)
[2016-10-14] MEDS: ATORVASTATIN 20 MG TAB PO SCH (22:14)
[2016-10-15 06:12] LABS: Glucose,Whole Blood 134 mg/dL (75-99)
--- NOTE | 2016-10-15 07:29 | PN ---
CHIEF COMPLAINT: Re-evaluation. HISTORY OF PRESENT ILLNESS: This is an elderly female, 80 years of age, was admitted to the hospital with feeling weak. The patient is noted to have evidence suggestive of acute on chronic renal failure. The patient medications have been held. She has been taking some nonsteroidals. Patient's general condition is improved. She is cautiously being hydrated. She denies any shortness of breath, cough, hemoptysis. Her echocardiogram reveals ejection fraction about 55%. Renal ultrasound reveals adequate renal size and structure. The patient has a pacemaker. REVIEW OF SYSTEMS: NEURO: Denies any headaches, dizziness. PSYCH: No anxiety. CARDIAC: No chest pain, angina, palpitation. RESPIRATORY: No shortness of breath, cough. GI: No nausea, vomiting, abdominal pain, diarrhea. : No symptoms of dysuria, hematuria. EXTREMITIES: No pain. Does have some edema. CONSTITUTIONAL: No fever or chills. PHYSICAL EXAMINATION: A pleasant female in no distress. Vital signs reveal temperature 97, pulse 67, respirations 18, blood pressure 149/60, pulse ox of 96% on room air. HEENT: Normocephalic. NECK: No JVD. Chest is clear to auscultation. CARDIAC: Normal S1, S2 with no gallops. Systolic murmur 2/6 left sternal border. ABDOMEN: Soft. Bowel sounds normal. No organomegaly. No bruits. Extremities reveal trace edema. Neurologically awake, alert, oriented with well-coordinated movements. LABORATORY ASSESSMENT: Electrolytes which are normal. Patient's BUN 77, creatinine 2.53, glucose 150. ASSESSMENT: 1. Acute on chronic renal failure, improving. 2. ASHD. 3. Hypertensive cardiovascular disease. 4. Diabetes mellitus. 5. Degenerative arthritis. PLAN: The patient at present is stable. Continue present medical regimen. Patient's condition discussed with the patient. Prognosis guarded. Patient's urine culture does reveal over 100,000 colonies of gram-negative bacilli. Patient will be placed on oral antibiotic. Patient's general condition discussed with the patient and daughter. Overall prognosis remains guarded.
[2016-10-15 07:33] LABS: Calcium 8.5 mg/dL (8.4-10.2)
[2016-10-15] MEDS: SODIUM CHLORIDE 0.9% 1,000 ML IV SCH ×2 (08:06→16:02)
[2016-10-15] MEDS: PANTOPRAZOLE 40 MG TABLET PO SCH (08:08)
[2016-10-15] MEDS: INSULIN LISPRO (humaLOG) 300 UNIT/3 ML VIAL SQ SCH ×4 (08:08→22:37)
[2016-10-15] MEDS: GLIMEPIRIDE 1 MG TAB PO SCH (08:08)
[2016-10-15] MEDS: LEVOTHYROXINE 100 MCG TAB PO SCH (08:08)
[2016-10-15] MEDS: ASPIRIN 81 MG CHEW PO SCH (08:09)
[2016-10-15] MEDS: APIXABAN 2.5 MG TABLET PO SCH ×2 (08:09→22:36)
[2016-10-15] MEDS: FLECAINIDE 50 MG TAB PO SCH ×2 (08:10→22:36)
[2016-10-15] MEDS: ATENOLOL 50 MG TAB PO SCH ×2 (08:10→22:36)
[2016-10-15] MEDS: hydrALAZINE HCL 25 MG TAB PO SCH ×2 (10:00→22:37)
[2016-10-15] MEDS: MULTIVITAMINS, THERA 1 EACH TAB PO SCH (10:01)
[2016-10-15 11:40] LABS: Glucose,Whole Blood 153 mg/dL (75-99)
--- NOTE | 2016-10-15 13:15 | P.PN ---
Subjective Principal diagnosis: Renal failure This is an 80-year-old female with history of diabetes, hypertension, hyperlipidemia, hypothyroidism, sleep apnea, sick sinus syndrome with prior pacemaker implantation, paroxysmal atrial fibrillation who follows with Dr. Starr in the office. She presented to the hospital mainly with symptoms of feeling fatigued and tired. She also states that she's had progressively worsening shortness of breath. Patient had been diuresed significantly and developed prerenal azotemia. Currently her diuretics are on hold and she is receiving IV fluids. Chest x-ray on admission did not reveal any evidence of pulmonary congestion. Echocardiogram with Doppler study performed on admission revealed an ejection fraction of 55-60%. Blood pressure this morning 118/60, heart rate in the 60s. Potassium 4.0, BUN 63 , creatinine 2.09 Patient was seen and examined, overall she states she feels well. Denies any shortness of breath. Objective - Vital Signs Vital signs: Vital Signs Temp 97.1 F L 10/15/16 08:00 Pulse 62 10/15/16 08:00 Resp 18 10/15/16 08:00 BP 118/57 10/15/16 08:00 Pulse Ox 96 10/15/16 08:35 Intake & Output 10/14/16 10/15/16 10/15/16 18:59 06:59 18:59 Intake Total 900 600 240 Output Total 1400 925 400 Balance -500 -325 -160 Weight 97.4 kg 99.2 kg Intake: Oral 900 600 240 Output: Urine 1400 925 400 Other: Voiding Method Toilet Toilet Toilet # Voids 2 - Exam PHYSICAL EXAMINATION: HEENT: Head is atraumatic, normocephalic. Pupils equal, round. Neck is supple. There is no elevated jugular venous pressure. HEART EXAMINATION: Heart S1, S2 normal. No murmur or gallop heard. CHEST EXAMINATION: Lungs are clear to auscultation and precussion. No chest wall tenderness is noted on palpation or with deep breathing. ABDOMEN: Soft, nontender. Bowel sounds are heard. No organomegaly noted. EXTREMITIES: 2+ peripheral pulses with trace evidence of peripheral edema and no calf tenderness noted. NEUROLOGIC patient is awake, alert and oriented -3. . - Labs CBC & Chem 7: 10/14/16 05:26 10/15/16 06:19 Labs: Abnormal Lab Results - Last 24 Hours (Table) 10/14/16 10/15/16 10/15/16 Range/Units 20:42 06:10 06:19 Chloride 108 H (98-107) mmol/L BUN 63 H (7-17) mg/dL Creatinine 2.09 H (0.52-1.04) mg/dL Glucose 131 H (74-99) mg/dL POC Glucose (mg/dL) 177 H 134 H (75-99) mg/dL 10/15/16 Range/Units 11:38 Chloride (98-107) mmol/L BUN (7-17) mg/dL Creatinine (0.52-1.04) mg/dL Glucose (74-99) mg/dL POC Glucose (mg/dL) 153 H (75-99) mg/dL Microbiology - Last 24 Hours (Table) 10/12/16 21:40 Urine Culture - Final Urine,Clean Catch Escherichia coli Assessment and Plan (1) Pacemaker Status: Acute (2) Sleep apnea Status: Acute (3) Acute renal failure (ARF) Status: Acute (4) Diabetes mellitus Status: Acute (5) Hypertension Status: Acute (6) Paroxysmal a-fib Status: Acute Plan: From cardiology's perspective, we will recommend to continue the patient on her current medications. Continue to hold diuretics at this time. Once she is discharged home from the hospital we'll make her follow-up appointment with Dr. Starr in the office post discharge. DNP note has been reviewed, I agree with a documented findings and plan of care. Patient was seen and examined.
[2016-10-15 16:48] LABS: Glucose,Whole Blood 199 mg/dL (75-99)
--- NOTE | 2016-10-15 19:17 | PN ---
Patient is seen for follow-up for acute kidney injury. Her renal function has been improving with serum creatinine now down to 2.02 from 3.4 mg/dL on initial admission. Patient is maintained on IV fluids at 75 mL an hour. She has good urine output. On examination, blood pressure is 130/60, heart rate 64 per minute. She is afebrile. Examination of the heart S1 and S2. Examination of the lungs: Bilateral breath sounds are heard. ABDOMEN: Soft, nontender. Examination of lower extremities shows no significant edema. [employer] exam is grossly intact. Patient is moving all 4 extremities. Labs revealed, sodium 142, potassium 4.0, BUN 63, serum creatinine 2.0 ASSESSMENT: 1. Acute kidney injury. Prerenal as well as from nonsteroidal anti-inflammatory agents. Currently maintained on IV fluids with improving renal function. 2. Escherichia coli urinary tract infection, maintained on Rocephin. 3. Hypovolemia, currently on normal saline at 75 mL an hour. 4. Diabetes, maintained on Amaryl. 5. Dyslipidemia. 6. Paroxysmal atrial fibrillation, currently with controlled ventricular response, maintained on atenolol and Eliquis. PLAN: Continue IV fluids. The patient can likely be discharged by tomorrow. She will need to follow up as outpatient.
[2016-10-15 20:43] LABS: Glucose,Whole Blood 149 mg/dL (75-99)
[2016-10-15] MEDS ORDERED: ACETAMINOPHEN TAB 500 MG TAB PO PRN (22:11)
[2016-10-15] MEDS: ATORVASTATIN 20 MG TAB PO SCH (22:36)
[2016-10-16 05:58] LABS: Glucose,Whole Blood 117 mg/dL (75-99)
[2016-10-16 06:52] LABS: Calcium 8.5 mg/dL (8.4-10.2)
[2016-10-16] MEDS: GLIMEPIRIDE 1 MG TAB PO SCH (06:54)
[2016-10-16] MEDS: LEVOTHYROXINE 100 MCG TAB PO SCH (06:54)
[2016-10-16] MEDS: PANTOPRAZOLE 40 MG TABLET PO SCH (06:54)
--- NOTE | 2016-10-16 06:57 | PN ---
CHIEF COMPLAINT: Re-evaluation. HISTORY OF PRESENT ILLNESS: This 80-year-old was admitted to the hospital with weakness and noted to have evidence suggestive of acute renal failure. The patient's renal failure is felt to be secondary to combination of prerenal azotemia associated with use of nonsteroidals and urinary tract infection. The patient is actually feeling much better. Breathing is well. She is feeling strong. Her renal function is improving. REVIEW OF SYSTEMS: NEURO: Denies any headaches, dizziness. PSYCH: No anxiety. CARDIAC: No chest pain, angina, palpitations. RESPIRATORY: No shortness of breath, cough, hemoptysis. GI: No nausea, vomiting, abdominal pain, diarrhea. : No symptoms of dysuria, hematuria, urgency, frequency. EXTREMITIES: Denies pain. Does have some edema. CONSTITUTIONAL: No fever or chills. PHYSICAL EXAMINATION: Pleasant female in no distress. Vital signs recorded as temperature 97.5, pulse 64, respirations 18, blood pressure 130/60, pulse ox 95% on room air. HEENT: Normocephalic. NECK: No JVD. Chest is clear to auscultation and percussion. CARDIAC: Normal S1, S2 with no gallops. Systolic murmur 2/6 left sternal border. ABDOMEN: Soft. Bowel sounds present. EXTREMITIES: 1+ edema of the ankles. NEUROLOGIC: Awake, alert, and oriented with well coordinated movements. Laboratory assessment was electrolytes which are normal. BUN down to 63, creatinine 2.09. Glucose 131. Calcium 8.5. Urine culture shows E. coli sensitive to Rocephin, which the patient is on. ASSESSMENT: 1. Acute on chronic renal failure, improved. 2. Acute kidney injury. 3. Diabetes mellitus. 4. Paroxysmal atrial fibrillation. 5. Urinary tract infection. PLAN: The patient is stable. Continue present medical regimen. Potential discharge home tomorrow.
[2016-10-16 07:55] VITALS: PULSE 74; TEMP 97.4
[2016-10-16] MEDS: APIXABAN 2.5 MG TABLET PO SCH (08:28)
[2016-10-16] MEDS: ASPIRIN 81 MG CHEW PO SCH (08:28)
[2016-10-16] MEDS: hydrALAZINE HCL 25 MG TAB PO SCH (08:29)
[2016-10-16] MEDS: FLECAINIDE 50 MG TAB PO SCH (08:29)
[2016-10-16] MEDS: ATENOLOL 50 MG TAB PO SCH (08:29)
[2016-10-16 08:53] VITALS: BP 145/68; RESP 15
[2016-10-16] MEDS: INSULIN LISPRO (humaLOG) 300 UNIT/3 ML VIAL SQ SCH (09:23)
[2016-10-16] MEDS: SODIUM CHLORIDE 0.9% 1,000 ML IV SCH (09:23)
--- NOTE | 2016-10-16 12:00 | P.PN ---
Subjective Principal diagnosis: Renal failure This is an 80-year-old female with history of diabetes, hypertension, hyperlipidemia, hypothyroidism, sleep apnea, sick sinus syndrome with prior pacemaker implantation, paroxysmal atrial fibrillation who follows with Dr. Starr in the office. She presented to the hospital mainly with symptoms of feeling fatigued and tired. She also states that she's had progressively worsening shortness of breath. Patient had been diuresed significantly and developed prerenal azotemia. Currently her diuretics are on hold and she is receiving IV fluids. Patient seen and examined this morning, feeling well overall. Planning for discharge home today. Objective - Vital Signs Vital signs: Vital Signs Temp 97.4 F L 10/16/16 08:00 Pulse 74 10/16/16 08:00 Resp 15 10/16/16 08:00 BP 145/68 10/16/16 08:00 Pulse Ox 96 10/16/16 09:17 Intake & Output 10/15/16 10/16/16 10/16/16 18:59 06:59 18:59 Intake Total 720 300 200 Output Total 1400 800 200 Balance -680 -500 0 Weight 101.1 kg Intake: Oral 720 300 200 Output: Urine 1400 800 200 Other: Voiding Method Toilet Toilet Toilet # Voids 2 # Bowel Movements 0 - Exam PHYSICAL EXAMINATION: HEENT: Head is atraumatic, normocephalic. Pupils equal, round. Neck is supple. There is no elevated jugular venous pressure. HEART EXAMINATION: Heart S1, S2 normal. No murmur or gallop heard. CHEST EXAMINATION: Lungs are clear to auscultation and precussion. No chest wall tenderness is noted on palpation or with deep breathing. ABDOMEN: Soft, nontender. Bowel sounds are heard. No organomegaly noted. EXTREMITIES: 2+ peripheral pulses with trace evidence of peripheral edema and no calf tenderness noted. NEUROLOGIC patient is awake, alert and oriented -3. . - Labs CBC & Chem 7: 10/14/16 05:26 10/16/16 05:55 Labs: Abnormal Lab Results - Last 24 Hours (Table) 10/14/16 10/15/16 10/15/16 Range/Units 05:47 16:44 20:41 Chloride (98-107) mmol/L Carbon Dioxide (22-30) mmol/L BUN (7-17) mg/dL Creatinine (0.52-1.04) mg/dL Glucose (74-99) mg/dL POC Glucose (mg/dL) 199 H 149 H (75-99) mg/dL Total Protein (PEP) 5.8 L (6.2-8.2) g/dL Albumin (PEP) 3.37 L (3.80-4.90) g/dL 10/16/16 10/16/16 Range/Units 05:55 05:57 Chloride 111 H (98-107) mmol/L Carbon Dioxide 21 L (22-30) mmol/L BUN 53 H (7-17) mg/dL Creatinine 1.87 H (0.52-1.04) mg/dL Glucose 115 H (74-99) mg/dL POC Glucose (mg/dL) 117 H (75-99) mg/dL Total Protein (PEP) (6.2-8.2) g/dL Albumin (PEP) (3.80-4.90) g/dL Microbiology - Last 24 Hours (Table) 10/12/16 21:40 Urine Culture - Final Urine,Clean Catch Escherichia coli Assessment and Plan (1) Pacemaker Status: Acute (2) Sleep apnea Status: Acute (3) Acute renal failure (ARF) Status: Acute (4) Diabetes mellitus Status: Acute (5) Hypertension Status: Acute (6) Paroxysmal a-fib Status: Acute Plan: From cardiology's perspective, we will recommend to continue the patient on her current medications. Patient may be discharged home today. We'll make her a follow-up appointment with Dr. Starr in the office post discharge. DNP note has been reviewed, I agree with a documented findings and plan of care. Patient was seen and examined.
--- NOTE | 2016-10-17 05:59 | PN ---
CHIEF COMPLAINT: Re-evaluation. HISTORY OF PRESENT ILLNESS: This is an 80-year-old female who was admitted to the hospital with weakness. Noted to have acute renal failure. The patient's renal function is improved and is approaching baseline. The patient in view of this with no further symptoms is going to be discharged home today. REVIEW OF SYSTEMS: NEURO: Denies any headaches, dizziness. PSYCH: No anxiety. CARDIAC: No chest pain, angina, palpitations. RESPIRATORY: No shortness breath, cough, hemoptysis. GI: No nausea, vomiting, abdominal pain, diarrhea. : No symptoms of dysuria, hematuria. EXTREMITIES: Chronic edema. CONSTITUTIONAL: No fever or chills. PHYSICAL EXAMINATION: Pleasant female in no distress. Vitals revealed temperature 97.4, pulse 74, respirations 14, blood pressure 148/63, pulse ox is 96% on room air. HEENT: Normocephalic. NECK: No JVD. Chest is clear to auscultation and percussion. CARDIAC: Normal S1, S2 with no gallop. Systolic murmur 2/6 left sternal border. No rubs. ABDOMEN: Soft, no palpable masses. Bowel sounds normal. Extremities reveal 1+ edema. NEUROLOGIC: Awake, alert, oriented with well coordinated movements. LABORATORY ASSESSMENT: Sodium 141, potassium 4, chloride 111, CO2 content 21, BUN 53, creatinine 1.87. Glucose was 115. Calcium was 8.5. ASSESSMENT: 1. Acute on chronic renal failure, improving. 2. Urinary tract infection. 3. Diabetes mellitus. 4. Pacemaker status. 5. History of paroxysmal atrial fibrillation. 6. Hypertension. PLAN: The patient at present is stable. Continue present medical regimen. The patient will be discharged home. The patient's medications are reviewed with the patient. The patient will see me in the next couple of days. We will probably start the patient back on Lasix at 20 mg. Patient's general condition was discussed with the patient. Prognosis remains guarded.
--- NOTE | 2016-11-24 13:59 | P.DS ---
Providers Date of admission: 10/12/16 19:55 Attending physician: Phil Blood Consults: 10/12/16 20:32 Consult Physician Urgent Consulting Provider: Sofia Child Consult Reason/Comments: acute renal failure Do you want consulting provider notified?: Yes, Notify in am 10/12/16 20:33 Consult Physician Urgent Consulting Provider: Liza Rendon Consult Reason/Comments: CHF Do you want consulting provider notified?: Yes, Notify in am Primary care physician: Phil Blood Hospital Course: Hospital course: This 81-year-old female was admitted to the hospital with generalized weakness and noted to be in acute on chronic renal failure. Patient also has underlying history of chronic congestive cardiac failure secondary to diastolic dysfunction , history of paroxysmal atrial fibrillation, mild pulmonary hypertension and mild aortic stenosis. Patient was also noted to have urinary tract infection which is treated. Her renal status improved. Nephrology is in the patient. It is felt the patient was also using nonsteroidals which had contributed to the renal failure. Her ultrasound of the kidneys revealed fairly normal kidneys. There is no obstruction. At the time of discharge patient's general condition was improved she was feeling markedly improved ambulatory and back to her usual status. At this point patient's being discharged home. Condition of the patient was discussed with patient and daughter. Prognosis remains guarded reviewed potential hazards to the kidney especially medications such as nonsteroidals. Patient was recommended to always check with the pharmacist if she has a new prescription. Adequate fluid intake and continuation of medication as discussed Final diagnosis to include 1. Acute on chronic renal failure 2. Chronic diastolic dysfunction associated CHF 3. Mild pulmonary hypertension 4. Mild aortic stenosis 5. Paroxysmal atrial fibrillation 6. Pacemaker status 7. History of gout 8. History of degenerative arthritis 9. Diabetes mellitus 10. Hypertension 11. Urinary tract infection Patient Condition at Discharge: Stable Plan - Discharge Summary New Discharge Prescriptions: Cephalexin [Keflex] 250 mg PO Q8HR #15 capsule Discharge Medication List Levothyroxine Sodium [Synthroid] 100 mcg PO DAILY 01/31/14 [History] Losartan [Cozaar] 50 mg PO BID 01/31/14 [History] Simvastatin [Zocor] 40 mg PO HS 01/31/14 [History] Glimepiride [Amaryl] 1 mg PO AC-BRKFST 03/10/16 [History] Magnesium Oxide [Mag-Ox] 250 mg PO DAILY 03/10/16 [History] hydrALAZINE HCL 25 mg PO BID 03/20/16 [History] Atenolol [Tenormin] 50 mg PO BID #60 tab 03/25/16 [Rx] Apixaban [Eliquis] 2.5 mg PO BID 10/12/16 [History] Aspirin EC [Ecotrin Low Dose] 81 mg PO DAILY 10/12/16 [History] Flecainide [Tambocor] 50 mg PO BID 10/12/16 [History] Pantoprazole Sodium [Protonix] 40 mg PO DAILY 10/12/16 [History] Acetaminophen Tab [Tylenol] 1,000 mg PO Q8HR PRN #0 tab 10/16/16 [Rx] Cephalexin [Keflex] 250 mg PO Q8HR #15 capsule 10/16/16 [Rx] Multivitamins, Thera [Multivitamin (formulary)] 1 each PO 1200 tab 10/16/16 [Rx ] Follow up Appointment(s)/Referral(s): Phil Blood MD [Primary Care Provider] - 10/21/16 9:15 am [facility], [NON-STAFF] - Theodore Starr MD [STAFF PHYSICIAN] - 10/28/16 4:00 pm (At [facility] Patient Instructions/Handouts: Heart Failure (DC), Acute Kidney Injury (DC) Discharge Disposition: HOME WITH HOME HEALTH SERVICES
== END 2016-10-16 11:46 | disposition home health service (06) | DRG 292 ==
LOC: EC 15:52 → 6SEL 19:55
PROVIDERS: ADMIT Internal Medicine; ATTEND Internal Medicine
DX: I13.0 Hypertensive heart and chronic kidney disease with heart failure and stage 1 through stage 4 chronic kidney disease, or unspecified chronic kidney disease (principal); N17.9 Acute kidney failure, unspecified; E87.2 Acidosis; I49.5 Sick sinus syndrome; E11.22 Type 2 diabetes mellitus with diabetic chronic kidney disease; I27.2 Other secondary pulmonary hypertension; E86.1 Hypovolemia; N39.0 Urinary tract infection, site not specified; I48.0 Paroxysmal atrial fibrillation; I50.32 Chronic diastolic (congestive) heart failure; E03.9 Hypothyroidism, unspecified; E78.5 Hyperlipidemia, unspecified; D63.1 Anemia in chronic kidney disease; N18.3 Chronic kidney disease, stage 3 (moderate); B96.20 Unspecified Escherichia coli [E. coli] as the cause of diseases classified elsewhere; G47.30 Sleep apnea, unspecified; K21.9 Gastro-esophageal reflux disease without esophagitis; M19.90 Unspecified osteoarthritis, unspecified site; I25.10 Atherosclerotic heart disease of native coronary artery without angina pectoris; T39.395A Adverse effect of other nonsteroidal anti-inflammatory drugs [NSAID], initial encounter; I25.2 Old myocardial infarction; Z79.82 Long term (current) use of aspirin; Z79.84 Long term (current) use of oral hypoglycemic drugs; Z79.1 Long term (current) use of non-steroidal anti-inflammatories (NSAID); Z79.899 Other long term (current) drug therapy; Z95.0 Presence of cardiac pacemaker; Z88.2 Allergy status to sulfonamides; Z88.0 Allergy status to penicillin; Z82.49 Family history of ischemic heart disease and other diseases of the circulatory system; I35.0 Nonrheumatic aortic (valve) stenosis; M10.9 Gout, unspecified
CPT/HCPCS: 36415; 71020; 76770; 80048; 80053; 81001; 82550; 82553; 83036; 83735; 83880; 84165; 84443; 84484; 84550; 85025; 85027; 85610; 85730; 87077; 87086; 87186; 93005; 93306; 94660; 94760; 99285

== ENCOUNTER 2016-12-10 14:14 | Inpatient (IN) | payer MEDICARE ==
[2016-12-10] MEDS ORDERED: FUROSEMIDE 10 MG/ML 4 ML VIAL IV STA (15:11)
--- NOTE | 2016-12-10 15:14 | ED ---
General Adult HPI - General Chief complaint: Shortness of Breath Stated complaint: SOB Hx CHF Time Seen by Provider: 12/10/16 15:00 Source: patient, RN notes reviewed Mode of arrival: wheelchair Limitations: no limitations - History of Present Illness Initial comments: This is an 81-year-old female who comes in with a past medical history significant for congestive heart failure. Patient states over the last week she 's noticed her reading coming more difficult especially with exertion. Patient states she also shows quite a bit more edema in her legs. Patient states she's also had a weight gain over the last few days. Patient denies any chest pain palpitations. Patient denies any recent fever chills or significant cough. Patient denies any abdominal pain. Patient denies nausea vomiting or diarrhea. Patient denies headache patient denies numbness weakness. Patient denies lightheadedness dizziness or near syncopal episode. Patient denies any recent injury or trauma. Patient denies any calf tenderness. - Related Data Home Medications Medication Instructions Recorded Confirmed Levothyroxine Sodium [Synthroid] 100 mcg PO DAILY 01/31/14 12/10/16 Simvastatin [Zocor] 40 mg PO HS 01/31/14 12/10/16 Glimepiride [Amaryl] 1 mg PO AC-BRKFST 03/10/16 12/10/16 Magnesium Oxide [Mag-Ox] 250 mg PO DAILY 03/10/16 12/10/16 hydrALAZINE HCL 25 mg PO DAILY 03/20/16 12/10/16 Apixaban [Eliquis] 2.5 mg PO BID 10/12/16 12/10/16 Aspirin EC [Ecotrin Low Dose] 81 mg PO DAILY 10/12/16 12/10/16 Flecainide [Tambocor] 50 mg PO BID 10/12/16 12/10/16 Pantoprazole Sodium [Protonix] 40 mg PO DAILY 10/12/16 12/10/16 Ferrous Sulfate [Feosol] 325 mg PO DAILY 12/10/16 12/10/16 Furosemide [Lasix] 40 mg PO DAILY 12/10/16 12/10/16 Losartan Potassium 50 mg PO DAILY 12/10/16 12/10/16 Multivitamins, Thera [Multivitamin 1 tab PO 1200 12/10/16 12/10/16 (formulary)] Previous Rx's Medication Instructions Recorded Atenolol [Tenormin] 50 mg PO BID #60 tab 03/25/16 Acetaminophen Tab [Tylenol] 1,000 mg PO Q8HR PRN #0 tab 10/16/16 Allergies Allergy/AdvReac Type Severity Reaction Status Date / Time meperidine HCl [From Demerol] Allergy Nausea & Verified 12/10/16 15:44 Vomiting Penicillins Allergy Rash/Hives Verified 12/10/16 15:44 Sulfa (Sulfonamide Allergy Rash/Hives Verified 12/10/16 15:44 Antibiotics) Review of Systems ROS Statement: Those systems with pertinent positive or pertinent negative responses have been documented in the HPI. ROS Other: All systems not noted in ROS Statement are negative. Past Medical History Past Medical History: Heart Failure, Diabetes Mellitus, GERD/Reflux, Hyperlipidemia, Hypertension, Myocardial Infarction (NC), Thyroid Disorder Last Myocardial Infarction Date:: 32 years ago History of Any Multi-Drug Resistant Organisms: None Reported Past Surgical History: Hysterectomy Additional Past Surgical History / Comment(s): hemmorrhoidectom/rectocele/ cystocele. vein stripping Past Anesthesia/Blood Transfusion Reactions: No Reported Reaction Type of Cardiac Device: Permanent Pacemaker Device Placement Date:: 03/2016 Past Psychological History: No Psychological Hx Reported Smoking Status: Never smoker Past Alcohol Use History: None Reported Past Drug Use History: None Reported - Past Family History Father Family Medical History: Coronary Artery Disease (CAD), Hyperlipidemia, Hypertension Mother Family Medical History: Unable to Obtain Sister(s) Family Medical History: Cancer General Exam - General Exam Comments Initial Comments: GENERAL: Patient is well-developed and well-nourished. Patient is nontoxic and well- hydrated and is in mild distress. ENT: Neck is soft and supple. No significant lymphadenopathy is noted. Oropharynx is clear. Moist mucous membranes. Neck has full range of motion without eliciting any pain. EYES: The sclera were anicteric and conjunctiva were pink and moist. Extraocular movements were intact and pupils were equal round and reactive to light. Eyelids were unremarkable. PULMONARY: Unlabored respirations. Good breath sounds bilaterally. No audible rales rhonchi or wheezing was noted. CARDIOVASCULAR: There is a regular rate and rhythm without any murmurs gallops or rubs. ABDOMEN: Soft and nontender with normal bowel sounds. No palpable organomegaly was noted. There is no palpable pulsatile mass. SKIN: Skin is clear with no lesions or rashes and otherwise unremarkable. NEUROLOGIC: Patient is alert and oriented x3. Cranial nerves II through XII are grossly intact. Motor and sensory are also intact. Normal speech, volume and content. Symmetrical smile. MUSCULOSKELETAL: Normal extremities with adequate strength and full range of motion. 2+ edema bilaterally. LYMPHATICS: No significant lymphadenopathy is noted PSYCHIATRIC: Normal psychiatric evaluation. Normal interpersonal interactions appears functionally intact in deals appropriately with others. No signs of depression. No signs of anxiety. Limitations: no limitations Course Vital Signs 12/10/16 12/10/16 14:55 15:53 Temperature 98.4 F Pulse Rate 89 71 Respiratory 20 18 Rate Blood Pressure 128/96 126/60 O2 Sat by Pulse 98 100 Oximetry Medical Decision Making - Medical Decision Making EKG shows a paced rhythm at 63 bpm CO interval 316 QRS is 28 QTC is 498 QTC is 509. Chest x-ray shows mild pulmonary edema patient received Lasix. I spoke with Dr. Blood he agreed to admit the patient I wrote admitting orders I continue the Lasix on the floor Nitropaste on the floor. - Lab Data Result diagrams: 12/10/16 15:15 12/10/16 15:15 Lab Results 12/10/16 12/10/16 12/10/16 Range/Units 15:15 15:15 15:15 WBC 6.8 (3.8-10.6) k/uL RBC 3.76 L (3.80-5.40) m/uL Hgb 11.8 (11.4-16.0) gm/dL Hct 37.7 (34.0-46.0) % MCV 100.4 H (80.0-100.0) fL MCH 31.4 (25.0-35.0) pg MCHC 31.3 (31.0-37.0) g/dL RDW 13.6 (11.5-15.5) % Plt Count 159 (150-450) k/uL Neutrophils % 70 % Lymphocytes % 21 % Monocytes % 5 % Eosinophils % 2 % Basophils % 0 % Neutrophils # 4.8 (1.3-7.7) k/uL Lymphocytes # 1.4 (1.0-4.8) k/uL Monocytes # 0.4 (0-1.0) k/uL Eosinophils # 0.1 (0-0.7) k/uL Basophils # 0.0 (0-0.2) k/uL Hypochromasia Slight Macrocytosis Slight PT (9.0-12.0) sec INR (<1.1) APTT (22.0-30.0) sec Sodium 139 (137-145) mmol/L Potassium 4.8 (3.5-5.1) mmol/L Chloride 102 (98-107) mmol/L Carbon Dioxide 22 (22-30) mmol/L Anion Gap 15 mmol/L BUN 62 H (7-17) mg/dL Creatinine 1.90 H (0.52-1.04) mg/dL Est GFR (MDRD) Af Amer 31 (>60 ml/min/1.73 sqM) Est GFR (MDRD) Non-Af 25 (>60 ml/min/1.73 sqM) Glucose 127 H (74-99) mg/dL Calcium 9.3 (8.4-10.2) mg/dL Magnesium 2.1 (1.6-2.3) mg/dL Total Bilirubin 0.4 (0.2-1.3) mg/dL AST 19 (14-36) U/L ALT 30 (9-52) U/L Alkaline Phosphatase 104 (38-126) U/L Total Creatine Kinase 20 L (30-135) U/L CK-MB (CK-2) 0.8 (0.0-2.4) ng/mL CK-MB (CK-2) Rel Index 4.0 Troponin I <0.012 (0.000-0.034) ng/mL NT-Pro-B Natriuret Pep pg/mL Total Protein 7.0 (6.3-8.2) g/dL Albumin 4.2 (3.5-5.0) g/dL 12/10/16 12/10/16 Range/Units 15:15 15:15 WBC (3.8-10.6) k/uL RBC (3.80-5.40) m/uL Hgb (11.4-16.0) gm/dL Hct (34.0-46.0) % MCV (80.0-100.0) fL MCH (25.0-35.0) pg MCHC (31.0-37.0) g/dL RDW (11.5-15.5) % Plt Count (150-450) k/uL Neutrophils % % Lymphocytes % % Monocytes % % Eosinophils % % Basophils % % Neutrophils # (1.3-7.7) k/uL Lymphocytes # (1.0-4.8) k/uL Monocytes # (0-1.0) k/uL Eosinophils # (0-0.7) k/uL Basophils # (0-0.2) k/uL Hypochromasia Macrocytosis PT 10.5 (9.0-12.0) sec INR 1.0 (<1.1) APTT 22.8 (22.0-30.0) sec Sodium (137-145) mmol/L Potassium (3.5-5.1) mmol/L Chloride (98-107) mmol/L Carbon Dioxide (22-30) mmol/L Anion Gap mmol/L BUN (7-17) mg/dL Creatinine (0.52-1.04) mg/dL Est GFR (MDRD) Af Amer (>60 ml/min/1.73 sqM) Est GFR (MDRD) Non-Af (>60 ml/min/1.73 sqM) Glucose (74-99) mg/dL Calcium (8.4-10.2) mg/dL Magnesium (1.6-2.3) mg/dL Total Bilirubin (0.2-1.3) mg/dL AST (14-36) U/L ALT (9-52) U/L Alkaline Phosphatase (38-126) U/L Total Creatine Kinase (30-135) U/L CK-MB (CK-2) (0.0-2.4) ng/mL CK-MB (CK-2) Rel Index Troponin I (0.000-0.034) ng/mL NT-Pro-B Natriuret Pep 41817 pg/mL Total Protein (6.3-8.2) g/dL Albumin (3.5-5.0) g/dL Critical Care Time Critical Care Time: Yes Total Critical Care Time: 35 Disposition Clinical Impression: Acute pulmonary edema Disposition: ADMITTED IP TO THIS HOSP Referrals: Phil Blood MD [Primary Care Provider] - 1-2 days Time of Disposition: 16:25
[2016-12-10 15:32] LABS: Basophils % (A) 0 %; CH 31.2; CHCM 31.2; Eosinophils # (A) 0.1 k/uL (0-0.7); Eosinophils % (A) 2 %; HCT 37.7 % (34.0-46.0); HDW 2.51; HGB 11.8 gm/dL (11.4-16.0); Hypochromasia Slight; Luc # (Auto) 0.12; Luc % (Auto) 2; Lymphocytes # (A) 1.4 k/uL (1.0-4.8); Lymphocytes % (A) 21 %; MCH 31.4 pg (25.0-35.0); MCHC 31.3 g/dL (31.0-37.0); MCV 100.4 fL (80.0-100.0); Macrocytosis Slight; Monocytes # (A) 0.4 k/uL (0-1.0); Monocytes % (A) 5 %; Neutrophils # (A) 4.8 k/uL (1.3-7.7); Neutrophils % (A) 70 %; RBC 3.76 m/uL (3.80-5.40); RDW 13.6 % (11.5-15.5); WBC 6.8 k/uL (3.8-10.6); WBC (Perox) 6.99
[2016-12-10 15:43] LABS: Partial Thromboplastin Time 22.8 sec (22.0-30.0); Prothrombin Time 10.5 sec (9.0-12.0)
--- NOTE | 2016-12-10 15:43 | XR ---
EXAMINATION TYPE: XR chest 2V DATE OF EXAM: 12/10/2016 3:34 PM CLINICAL HISTORY: History of CHF presents with shortness of breath. TECHNIQUE: Frontal and lateral views of the chest are obtained. COMPARISON: Prior chest x-ray October 12, 2016. FINDINGS: There is cardiomegaly with small right greater than left pleural effusions. A dual lead pa cemaker is redemonstrated. The cardiac silhouette size is within normal limits. Atherosclerotic [place] in thoracic aorta is redemonstrated. The osseous structures are intact. IMPRESSION: Cardiomegaly with new small right greater than left pleural effusions suggesting CHF exac erbation, clinical correlation advised.
[2016-12-10 15:46] LABS: Calcium 9.3 mg/dL (8.4-10.2); Magnesium 2.1 mg/dL (1.6-2.3); Potassium 4.8 mmol/L (3.5-5.1); Total Bilirubin 0.4 mg/dL (0.2-1.3)
[2016-12-10 15:59] LABS: Creatine Kinase 20 U/L (30-135)
[2016-12-10 16:12] LABS: Creatine Kinase MB 0.8 ng/mL (0.0-2.4); Troponin I <0.012 ng/mL (0.000-0.034)
[2016-12-10] MEDS: NITROGLYCERIN OINT 1 INCH/GM PACKET TOPICAL SCH ×2 (18:38→23:55)
[2016-12-10 21:08] LABS: Glucose,Whole Blood 165 mg/dL (75-99)
[2016-12-10] MEDS ORDERED: ACETAMINOPHEN TAB 500 MG TAB PO PRN (21:29)
[2016-12-10] MEDS: APIXABAN 2.5 MG TABLET PO SCH (22:19)
[2016-12-10] MEDS: FLECAINIDE 50 MG TAB PO SCH (22:19)
[2016-12-10] MEDS: ATORVASTATIN 20 MG TAB PO SCH (22:19)
[2016-12-10] MEDS: hydrALAZINE HCL 25 MG TAB PO SCH (22:19)
[2016-12-10] MEDS: ATENOLOL 50 MG TAB PO SCH (22:19)
[2016-12-10] MEDS ORDERED: MELATONIN 5 MG TABLET PO PRN (23:23)
[2016-12-10] MEDS: FUROSEMIDE 10 MG/ML 4 ML VIAL IV SCH (23:54)
[2016-12-11] MEDS: PANTOPRAZOLE 40 MG TABLET PO SCH (06:30)
[2016-12-11] MEDS: GLIMEPIRIDE 1 MG TAB PO SCH (06:30)
[2016-12-11] MEDS: LEVOTHYROXINE 100 MCG TAB PO SCH (06:30)
[2016-12-11 06:34] LABS: Glucose,Whole Blood 116 mg/dL (75-99)
[2016-12-11 06:56] LABS: Calcium 9.1 mg/dL (8.4-10.2); Potassium 4.1 mmol/L (3.5-5.1)
[2016-12-11] MEDS: FUROSEMIDE 10 MG/ML 4 ML VIAL IV SCH ×3 (09:20→16:16)
[2016-12-11] MEDS: NITROGLYCERIN OINT 1 INCH/GM PACKET TOPICAL SCH ×4 (09:31→20:42)
[2016-12-11] MEDS: APIXABAN 2.5 MG TABLET PO SCH ×2 (09:32→20:48)
[2016-12-11] MEDS: FERROUS SULFATE 325 MG TAB PO SCH (09:33)
[2016-12-11] MEDS: LOSARTAN 50 MG TAB PO SCH (09:33)
[2016-12-11] MEDS: FLECAINIDE 50 MG TAB PO SCH ×2 (09:33→20:48)
[2016-12-11] MEDS: hydrALAZINE HCL 25 MG TAB PO SCH ×2 (09:34→20:48)
[2016-12-11] MEDS: MAGNESIUM OXIDE 400 MG TAB PO SCH (09:36)
[2016-12-11] MEDS: ATENOLOL 50 MG TAB PO SCH ×2 (09:36→20:48)
[2016-12-11] MEDS: ASPIRIN 81 MG CHEW PO SCH (09:36)
--- NOTE | 2016-12-11 10:29 | HP ---
DATE OF ADMISSION: 12/10/2016 CHIEF COMPLAINT: Shortness of breath. HISTORY OF PRESENT ILLNESS: An 81-year-old female admitted to the hospital after presenting to the emergency room with complaints of shortness of breath. She had gained about 3 pounds of weight and had talked to me yesterday and I recommended that she take an extra Lasix dose. The patient, however during the night, had some increased orthopnea. She had to sleep on 2 pillows; normally she does not. The patient also noticed that with minimal activity she was getting out of breath. In view of this, she presented to the emergency room. She denied any chest pain. She has had no fever or chills or cough. She does have a history of atherosclerotic heart disease and a previous pacemaker for complete heart block. The patient is also followed by the software sales manager. She has underlying chronic kidney disease, stage IV, and is followed by the metal die finisher. Renal ultrasound showed there was normal kidney size with no hydronephrosis. The patient's admission back in October had a creatinine of 3.41 with a BUN of 102. It was felt that she had significant renal issues due to use of nonsteroidals. The patient is not on any nonsteroidals at present. Past medical history as mentioned above, ASHD, sick sinus syndrome with pacemaker with chronic atrial fibrillation and chronic kidney disease. The patient also has obstructive sleep apnea on BiPAP and hypothyroidism. She also has some chronic venostasis of the lower legs. She has gastroesophageal reflux with occasional symptoms and diabetes mellitus type 2 with no complications. PAST SURGICAL HISTORY: Significant for placement of a pacemaker. Allergies to PENICILLIN, SULFA. Sensitive to DEMEROL. Medications at present include: 1. Hydralazine 25 mg daily. 2. Simvastatin 40 mg daily. 3. Protonix 40 mg daily. 4. Multivitamin daily. 5. Magnesium oxide 1 daily. 6. Losartan 50 mg daily. 7. Levothyroxine 100 mcg daily. 8. Glimepiride 1 mg with breakfast. 9. Lasix 40 mg daily. 10. Tambocor 50 mg b.i.d. 11. Ferrous sulfate 1 daily. 12. Atenolol 50 mg b.i.d. 13. Aspirin 81 mg daily. 14. Eliquis 2.5 mg b.i.d. SOCIAL HISTORY: The patient is , lives alone. FAMILY MEDICAL HISTORY: The patient has 3 daughters, 1 daughter has had aortic valve disease. Other than that, in good health. The father of cardiac ailments. REVIEW OF SYSTEMS: NEURO: Denies any headaches, dizziness. No double vision, blurred vision. No symptoms of TIA, syncope, seizures. PSYCH: Anxiety and apprehension regarding dyspnea. PSYCH: Depression. CARDIAC: Denies angina or palpitations. At present complains of shortness of breath, dyspnea and orthopnea. RESPIRATORY: Shortness of breath. No cough or hemoptysis. GI: No nausea, vomiting, abdominal pain, heartburn, diarrhea, constipation, hematochezia, melena. : No symptoms of dysuria, hematuria, urgency, frequency. EXTREMITIES: Denies pain. Does have chronic edema. CONSTITUTIONAL: No fever or chills. SKIN: No rashes. ENT: No symptoms. PHYSICAL EXAMINATION: Pleasant female, at present in no distress. Vital signs reveal temperature of 98.4, pulse 89, respirations 20, blood pressure 128/96, pulse 98% on room air. HEENT: Normocephalic. HEENT: Normocephalic. NECK: 1+ JVD. No thyromegaly no supraclavicular lymphadenopathy. Oral cavity is moist. Pupils are reactive. Conjunctivae are pink. Scleral anicteric. CHEST: Clear to auscultation with decreased air flow at the bases. No rhonchi or wheezing appreciated. The patient does have some dullness to percussion in the right base. CARDIAC: Distant heart sounds. S1, S2 with no gallops. Systolic murmur 2/6 left sternal border and right second intercostal space. ABDOMEN: Soft, no palpable masses. Bowel sounds normal. No organomegaly. No abdominal bruits. EXTREMITIES: Reveal 1+ chronic edema. NEUROLOGIC: Awake, alert, oriented x3 with well-coordinated movements. LABORATORY ASSESSMENT: White count is normal. Hemoglobin is 11.8, platelet count 159. INR PTT and PTT are normal. Electrolytes are normal. BUN 62, creatinine 1.9, glucose 127, CK 20, troponin negative. BNP 19,000, has been 4.2. Chest x-ray shows changes of CHF. EKG reveals pacemaker rhythm. ASSESSMENT: 1. Acute on chronic congestive heart failure with diastolic dysfunction. 2. Sick sinus syndrome with history of atrial fibrillation and pacemaker. 3. Chronic kidney disease, stage IV. 4. Hypertension. 5. Mild aortic stenosis. 6. Obstructive sleep apnea. 7. History of carotid stenosis. PLAN: Patient admitted to the hospital and will be diuresed with close monitoring of renal function. Patient's general condition discussed with the patient. Prognosis guarded.
[2016-12-11] MEDS: MULTIVITAMINS, THERA 1 EACH TAB PO SCH (11:51)
[2016-12-11 11:55] LABS: Glucose,Whole Blood 142 mg/dL (75-99)
[2016-12-11 17:00] LABS: Glucose,Whole Blood 135 mg/dL (75-99)
[2016-12-11] MEDS: ATORVASTATIN 20 MG TAB PO SCH (20:48)
[2016-12-11 21:22] LABS: Glucose,Whole Blood 177 mg/dL (75-99)
--- NOTE | 2016-12-12 05:40 | PN ---
CHIEF COMPLAINT: Re-evaluation. HISTORY OF PRESENT ILLNESS: This 81-year-old female was admitted to the hospital because of shortness of breath. The patient has a history of chronic atrial fibrillation, pacemaker. The patient also has underlying history of chronic congestive cardiac failure secondary to diastolic dysfunction. She also has associated chronic kidney disease, stage IV. She is feeling better. She was unable to sleep well during the night because of having to urinate frequently. The patient's breathing, however, has improved. She is lying flatter in bed. REVIEW OF SYSTEMS: NEURO: Denies any headaches, dizziness. PSYCH: Some anxiety. CARDIAC: No chest pain, angina, palpitation. RESPIRATORY: No shortness of breath, cough, hemoptysis. No orthopnea today. GI: No nausea, vomiting, abdominal pain, diarrhea. : No symptoms of dysuria, hematuria. Does have frequency. EXTREMITIES: Decreased pain. CONSTITUTIONAL: No fever or chills. PHYSICAL EXAMINATION: Pleasant female in no distress. Vital signs reveal temperature 97.8, pulse 83, respirations 18, blood pressure 120/56, pulse ox 98% on 2 L. HEENT: Normocephalic. NECK: No JVD. CHEST: Mild decreased air flow at the bases. CARDIAC: Distant heart sounds. S1, S2 with no gallops. Systolic murmur 2/6 left sternal border. Irregular rhythm. ABDOMEN: Soft, no palpable masses. Bowel sounds normal. No organomegaly. No abdominal bruits. Extremities reveal chronic trace edema. NEUROLOGIC: Awake, alert, oriented with well coordinated movements. Laboratory assessment reveals normal electrolytes. Patient's CO2 content was 21. BUN 65, creatinine 1.87. Glucose 120. Calcium 9.1. ASSESSMENT: 1. Acute on chronic congestive cardiac failure secondary to diastolic dysfunction. 2. Hypertensive cardiovascular disease. 3. Chronic atrial fibrillation. 4. Sick sinus syndrome. 5. Pacemaker. 6. Chronic kidney disease, stage IV. 7. Degenerative arthritis. PLAN: The patient is stable. Continue present medical regimen. The patient's IV diuretics were decreased. Continue present regimen. Prognosis guarded. We will re-evaluate patient in the morning tomorrow. Potential discharge.
[2016-12-12 06:19] LABS: Glucose,Whole Blood 121 mg/dL (75-99)
[2016-12-12] MEDS: PANTOPRAZOLE 40 MG TABLET PO SCH (06:50)
[2016-12-12] MEDS: LEVOTHYROXINE 100 MCG TAB PO SCH (06:50)
[2016-12-12] MEDS: GLIMEPIRIDE 1 MG TAB PO SCH (06:50)
[2016-12-12 07:18] LABS: Calcium 9.1 mg/dL (8.4-10.2); Potassium 4.4 mmol/L (3.5-5.1)
[2016-12-12] MEDS: FUROSEMIDE 10 MG/ML 4 ML VIAL IV SCH ×2 (09:07→20:57)
[2016-12-12] MEDS: ATENOLOL 50 MG TAB PO SCH ×2 (09:09→20:58)
[2016-12-12] MEDS: FERROUS SULFATE 325 MG TAB PO SCH (09:09)
[2016-12-12] MEDS: FLECAINIDE 50 MG TAB PO SCH ×2 (09:09→20:57)
[2016-12-12] MEDS: NITROGLYCERIN OINT 1 INCH/GM PACKET TOPICAL SCH ×4 (09:10→20:54)
[2016-12-12] MEDS: ASPIRIN 81 MG CHEW PO SCH (09:11)
[2016-12-12] MEDS: LOSARTAN 50 MG TAB PO SCH (09:11)
[2016-12-12] MEDS: APIXABAN 2.5 MG TABLET PO SCH ×2 (09:12→20:58)
[2016-12-12] MEDS: hydrALAZINE HCL 25 MG TAB PO SCH ×2 (09:12→20:57)
[2016-12-12] MEDS: MAGNESIUM OXIDE 400 MG TAB PO SCH (09:13)
[2016-12-12 10:57] VITALS: BMI 34.8
[2016-12-12 11:57] LABS: Glucose,Whole Blood 102 mg/dL (75-99)
[2016-12-12] MEDS: MULTIVITAMINS, THERA 1 EACH TAB PO SCH (12:06)
[2016-12-12 13:04] LABS: Hemoglobin A1C 6.3 % (4.2-6.1)
--- NOTE | 2016-12-12 16:50 | XR ---
EXAMINATION TYPE: XR chest 2V DATE OF EXAM: 12/12/2016 4:13 PM COMPARISON: NONE INDICATION: Short of breath history of CHF TECHNIQUE: Single frontal view of the chest is obtained. FINDINGS: The heart size is normal. The pulmonary vasculature is normal. There may be some minimal blunting of the right costophrenic angle. Correlate for small pleural effus ion. Pacemaker overlies left chest. IMPRESSION: 1. There may be a small right pleural effusion.
[2016-12-12 17:18] LABS: Glucose,Whole Blood 131 mg/dL (75-99)
[2016-12-12] MEDS: ATORVASTATIN 20 MG TAB PO SCH (20:57)
[2016-12-12 21:13] LABS: Glucose,Whole Blood 173 mg/dL (75-99)
[2016-12-13 06:40] LABS: Glucose,Whole Blood 123 mg/dL (75-99)
[2016-12-13] MEDS: LEVOTHYROXINE 100 MCG TAB PO SCH (06:53)
[2016-12-13] MEDS: PANTOPRAZOLE 40 MG TABLET PO SCH (06:53)
[2016-12-13] MEDS: GLIMEPIRIDE 1 MG TAB PO SCH (06:53)
--- NOTE | 2016-12-13 07:03 | PN ---
CHIEF COMPLAINT: Re-evaluation. HISTORY OF PRESENT ILLNESS: An 81-year-old female who was admitted to the hospital with shortness of breath. Patient noted to be in congestive cardiac failure. Her symptoms are improved with diuresis. She also has underlying history of chronic kidney disease, stage IV. She has a history of atrial fibrillation chronic and sick sinus syndrome with a pacemaker. She feels much improved. REVIEW OF SYSTEMS: NEURO: Denies any headaches, dizziness. PSYCH: No anxiety. CARDIAC: No chest pain, angina, palpitation. RESPIRATORY: No shortness breath, cough. No orthopnea. GI: No nausea, vomiting, abdominal pain, diarrhea. : No symptoms of dysuria, hematuria. EXTREMITIES: Some edema. CONSTITUTIONAL: No fever or chills. PHYSICAL EXAMINATION: Pleasant female in no distress. Vital signs reveal temperature 96.5, pulse 62, respirations 16, blood pressure 113/59, pulse ox 97% on room air. HEENT: Normocephalic. NECK: No JVD. Chest is clear to auscultation with minimal air with decreased air flow at the right base. CARDIAC: Distant heart sounds. S1, S2 with no gallops. Systolic murmur 2/6 left sternal border. ABDOMEN: Soft. Bowel sounds present. Extremities reveal chronic nonpitting edema. NEUROLOGIC: Awake, alert, oriented with well coordinated movements. Laboratory assessment was electrolytes which are normal. BUN 69, creatinine 1.86 stable. A1c 6.3. Patient's blood sugar is adequately controlled. ASSESSMENT: 1. Acute on chronic congestive cardiac failure secondary to diastolic dysfunction. 2. Sick sinus syndrome. 3. Chronic atrial fibrillation. 4. Diabetes mellitus. 5. Chronic kidney disease, stage IV. PLAN: The patient at present is stable. Continue present medical regimen. The patient's condition discussed with the patient. Prognosis guarded. We will continue treating the patient with IV diuretic today. Plan for discharge home tomorrow. Patient's condition discussed with the patient. Prognosis guarded. Management for CHF discussed with the patient.
[2016-12-13] MEDS: ASPIRIN 81 MG CHEW PO SCH (08:09)
[2016-12-13] MEDS: FERROUS SULFATE 325 MG TAB PO SCH (08:10)
[2016-12-13] MEDS: ATENOLOL 50 MG TAB PO SCH (08:10)
[2016-12-13] MEDS: hydrALAZINE HCL 25 MG TAB PO SCH (08:10)
[2016-12-13] MEDS: MAGNESIUM OXIDE 400 MG TAB PO SCH (08:11)
[2016-12-13] MEDS: LOSARTAN 50 MG TAB PO SCH (08:11)
[2016-12-13] MEDS: APIXABAN 2.5 MG TABLET PO SCH (08:11)
[2016-12-13] MEDS: FLECAINIDE 50 MG TAB PO SCH (08:11)
[2016-12-13] MEDS: MULTIVITAMINS, THERA 1 EACH TAB PO SCH (08:11)
[2016-12-13 08:47] VITALS: BP 128/56; PULSE 63; RESP 18; TEMP 96.8
== END 2016-12-13 10:50 | disposition home health service (06) | DRG 291 ==
LOC: EC 14:14 → 6SEL 16:33
PROVIDERS: ADMIT Internal Medicine; ATTEND Internal Medicine
DX: I13.0 Hypertensive heart and chronic kidney disease with heart failure and stage 1 through stage 4 chronic kidney disease, or unspecified chronic kidney disease (principal); I50.33 Acute on chronic diastolic (congestive) heart failure; N18.4 Chronic kidney disease, stage 4 (severe); E11.22 Type 2 diabetes mellitus with diabetic chronic kidney disease; I48.2 Chronic atrial fibrillation; I35.0 Nonrheumatic aortic (valve) stenosis; G47.33 Obstructive sleep apnea (adult) (pediatric); I25.2 Old myocardial infarction; E78.5 Hyperlipidemia, unspecified; I25.10 Atherosclerotic heart disease of native coronary artery without angina pectoris; E03.9 Hypothyroidism, unspecified; K21.9 Gastro-esophageal reflux disease without esophagitis; M19.91 Primary osteoarthritis, unspecified site; Z88.2 Allergy status to sulfonamides; Z88.0 Allergy status to penicillin; Z95.0 Presence of cardiac pacemaker; Z79.82 Long term (current) use of aspirin; Z79.01 Long term (current) use of anticoagulants; Z79.84 Long term (current) use of oral hypoglycemic drugs; Z79.899 Other long term (current) drug therapy; Z82.49 Family history of ischemic heart disease and other diseases of the circulatory system
CPT/HCPCS: 36415; 71020; 80048; 80053; 82550; 82553; 83036; 83735; 83880; 84484; 85025; 85610; 85730; 93005; 94760; 96374; 99291

== ENCOUNTER → 2017-01-02 | Outpatient (CLI) | payer MEDICARE ==
--- NOTE | 2017-01-02 14:26 | PN ---
DATE OF SERVICE: 01/02/2017 An 81-year-old lady who has been [facility] for treatment of obstructive sleep apnea-hypopnea syndrome. Patient continued to use her BiPAP unit. She brought her unit with her and I checked the unit. Usage is 27 out of 30 nights for more than 4 hours. BiPAP pressure of 12/8 with a significant leak from the mask up to 42 L/min. At the same time, apnea-hypopnea index was totally normal, range only 1.1. [place] Sleepiness Scale today is 6. MEDICATIONS: Calcitriol, allopurinol, ( ), vitamin D, losartan, simvastatin, melatonin, acetaminophen, atenolol, furosemide, levothyroxine, glimepiride, magnesium oxide, multivitamins, Eliquis, aspirin, Tambocor, pantoprazole. During physical exam, an 81-year-old lady without distress. BP 113/55, HR 60, RR 16. Height 5, 3. Weight 215. Neck 15 inches in circumference. Temp 97.6. BMI 38, oxygen saturation at room air 98%. Oropharynx, extremely low position of soft palate. ABDOMEN: Obese. NECK: Supple. No JVD, Thyroid is not palpable. LUNGS: Clear to percussion and to auscultation. Good air exchange. No wheezing or rhonchi. HEART: S1, S2 regular. No murmurs, gallops, or rubs. CHAIR INSPECTOR AND LEVELER: Awake, alert, and oriented x3. Cranial nerves 2 to 7 intact. There is no fasciculation or atrophy noted. No focal deficits observed. EXTREMITIES: 1+ ankle edema. IMPRESSION: 1. Obstructive sleep apnea-hypopnea syndrome. Patient continued to demonstrate great compliance with treatment, benefiting from treatment. 2. There is quite a significant leak from the mask. 3. Obesity. 4. Diabetes mellitus. 5. Hypertension. 6. History of cardiac arrhythmia, status post permanent pacemaker insertion. 7. Congestive heart failure. 8. Hypothyroidism. 9. Acid reflux. 10. Gout. 11. Hyperlipidemia. PLAN: 1. Continue treatment with BiPAP every night for the whole night. 2. Watching weight. 3. Prescription for all necessary BiPAP supplies, including mask, tube, filters. 4. Precautions related to driving, no driving if feeling any sleepiness. Thank you very much for allowing me to participate in the management of your patient. Sincerely, Celio Islas MD, PhD, FAASM Diplomat of [place] [employer], Sleep Medicine Board by [place] [employer] [place] [employer] of [facility] [place]
== END | disposition home or self-care (01) ==
LOC: SLEEP 13:12
PROVIDERS: ATTEND Internal Medicine
DX: G47.33 Obstructive sleep apnea (adult) (pediatric) (principal); E66.9 Obesity, unspecified; I10 Essential (primary) hypertension; I50.9 Heart failure, unspecified; E03.9 Hypothyroidism, unspecified; E78.5 Hyperlipidemia, unspecified; I49.9 Cardiac arrhythmia, unspecified; K21.9 Gastro-esophageal reflux disease without esophagitis; M10.9 Gout, unspecified; Z95.0 Presence of cardiac pacemaker; Z68.38 Body mass index [BMI] 38.0-38.9, adult; Z79.84 Long term (current) use of oral hypoglycemic drugs; Z79.82 Long term (current) use of aspirin; Z99.89 Dependence on other enabling machines and devices; Z79.02 Long term (current) use of antithrombotics/antiplatelets; Z79.899 Other long term (current) drug therapy

== ENCOUNTER 2017-01-18 13:00 | Inpatient (IN) | payer MEDICARE ==
[2017-01-18] MEDS ORDERED: NITROGLYCERIN OINT 1 INCH/GM PACKET TOPICAL STA (13:41)
[2017-01-18] MEDS ORDERED: FUROSEMIDE 10 MG/ML 4 ML VIAL IV STA (13:43)
--- NOTE | 2017-01-18 13:48 | ED ---
General Adult HPI - General Chief complaint: Chest Pain Stated complaint: revisit JASMINE Time Seen by Provider: 01/18/17 13:20 Source: patient, RN notes reviewed Mode of arrival: wheelchair Limitations: no limitations - History of Present Illness Initial comments: This is an 81-year-old female who presents emergency Department complaining of difficulty breathing with exertion. Patient states is worsening over the last couple of days. Patient states she's also notices significant weight gain and edema to the legs. Patient denies any fever. Patient states she has had a cough recently but no sputum production. Patient denies any chest pain palpitations. Patient denies any abdominal pain patient denies nausea vomiting or diarrhea. Patient denies any lightheadedness dizziness or near syncopal episode. Patient states she did have a little chest pressure yesterday but it' s typical of her when she gets short of breath. Patient denies any diaphoresis patient denies any nausea. - Related Data Home Medications Medication Instructions Recorded Confirmed Levothyroxine Sodium [Synthroid] 100 mcg PO DAILY 01/31/14 01/18/17 Glimepiride [Amaryl] 1 mg PO AC-BRKFST 03/10/16 01/18/17 Magnesium Oxide [Mag-Ox] 250 mg PO DAILY 03/10/16 01/18/17 Apixaban [Eliquis] 2.5 mg PO BID 10/12/16 01/18/17 Aspirin EC [Ecotrin Low Dose] 81 mg PO DAILY 10/12/16 01/18/17 Flecainide [Tambocor] 50 mg PO BID 10/12/16 01/18/17 Pantoprazole Sodium [Protonix] 40 mg PO DAILY 10/12/16 01/18/17 Ferrous Sulfate [Iron (65 MG 325 mg PO DAILY 12/10/16 01/18/17 Elemental)] Losartan Potassium 50 mg PO DAILY 12/10/16 01/18/17 Multivitamins, Thera [Multivitamin 1 tab PO DAILY@1200 12/10/16 01/18/17 (formulary)] Allopurinol [Zyloprim] 100 mg PO DAILY 01/18/17 01/18/17 Calcitriol [Rocaltrol] 0.25 mcg PO TU 01/18/17 01/18/17 Cholecalciferol [Vitamin D3] 2,000 unit PO DAILY 01/18/17 01/18/17 Ciprofloxacin HCl [Cipro] 250 mg PO Q12HR 01/18/17 01/18/17 hydrALAZINE HCL [Apresoline] 12.5 mg PO DIRECTED 01/18/17 01/18/17 Previous Rx's Medication Instructions Recorded Atenolol [Tenormin] 50 mg PO BID #60 tab 03/25/16 Acetaminophen Tab [Tylenol] 1,000 mg PO Q8HR PRN #0 tab 12/13/16 Furosemide [Lasix] 40 mg PO BID #60 tablet 12/13/16 Melatonin 5 mg PO HS PRN #0 tablet 12/13/16 Simvastatin [Zocor] 20 mg PO HS #90 tab 12/13/16 Allergies Allergy/AdvReac Type Severity Reaction Status Date / Time meperidine HCl [From Demerol] Allergy Nausea & Verified 01/18/17 14:51 Vomiting Penicillins Allergy Rash/Hives Verified 01/18/17 14:51 Sulfa (Sulfonamide Allergy Rash/Hives Verified 01/18/17 14:51 Antibiotics) Review of Systems ROS Statement: Those systems with pertinent positive or pertinent negative responses have been documented in the HPI. ROS Other: All systems not noted in ROS Statement are negative. Past Medical History Past Medical History: Heart Failure, Diabetes Mellitus, GERD/Reflux, Hyperlipidemia, Hypertension, Myocardial Infarction (OR), Thyroid Disorder Additional Past Medical History / Comment(s): PALPITATIONS Last Myocardial Infarction Date:: 32 years ago History of Any Multi-Drug Resistant Organisms: None Reported Past Surgical History: Hysterectomy, Pacemaker Additional Past Surgical History / Comment(s): hemmorrhoidectomy/rectocele/ cystocele, cataracats,. vein stripping Past Anesthesia/Blood Transfusion Reactions: No Reported Reaction Type of Cardiac Device: Permanent Pacemaker Device Placement Date:: 03/2016 Past Psychological History: No Psychological Hx Reported Additional Psychological History / Comment(s): lives in own home has 2 steps into home. no pets. gets meals on wheels. has rolling walker /cane. gets meals on wheels. has life alert necklace. has 4 adults children, 4 grand kids,8 great grand kids. Smoking Status: Never smoker Past Alcohol Use History: None Reported Past Drug Use History: None Reported - Past Family History Father Family Medical History: Coronary Artery Disease (CAD), Hyperlipidemia, Hypertension Mother Family Medical History: Unable to Obtain Sister(s) Family Medical History: Cancer General Exam - General Exam Comments Initial Comments: GENERAL: Patient is well-developed and well-nourished. Patient is nontoxic and well- hydrated and is in mild distress ENT: Neck is soft and supple. No significant lymphadenopathy is noted. Oropharynx is clear. Moist mucous membranes. Neck has full range of motion without eliciting any pain. EYES: The sclera were anicteric and conjunctiva were pink and moist. Extraocular movements were intact and pupils were equal round and reactive to light. Eyelids were unremarkable. PULMONARY: Unlabored respirations. Good breath sounds bilaterally. No audible rales rhonchi or wheezing was noted. CARDIOVASCULAR: There is a regular rate and rhythm without any murmurs gallops or rubs. ABDOMEN: Soft and nontender with normal bowel sounds. No palpable organomegaly was noted. There is no palpable pulsatile mass. SKIN: Skin is clear with no lesions or rashes and otherwise unremarkable. NEUROLOGIC: Patient is alert and oriented x3. Cranial nerves II through XII are grossly intact. Motor and sensory are also intact. Normal speech, volume and content. Symmetrical smile. MUSCULOSKELETAL: Normal extremities with adequate strength and full range of motion. 2+ edema LYMPHATICS: No significant lymphadenopathy is noted PSYCHIATRIC: Normal psychiatric evaluation. Limitations: no limitations Course Vital Signs 01/18/17 01/18/17 01/18/17 13:16 13:42 14:03 Temperature 98.2 F Pulse Rate 65 63 Respiratory 20 18 16 Rate Blood Pressure 125/89 143/66 O2 Sat by Pulse 99 100 Oximetry Medical Decision Making - Medical Decision Making EKG shows ventricular paced rhythm at 72 bpm QRS is 212 QT interval 544 QTC is 595. Chest x-ray shows pulmonary edema - Lab Data Result diagrams: 01/18/17 13:35 01/18/17 13:35 Lab Results 01/18/17 01/18/17 01/18/17 Range/Units 13:35 13:35 13:35 WBC 8.6 (3.8-10.6) k/uL RBC 3.99 (3.80-5.40) m/uL Hgb 12.0 (11.4-16.0) gm/dL Hct 37.9 (34.0-46.0) % MCV 95.0 D (80.0-100.0) fL MCH 30.0 (25.0-35.0) pg MCHC 31.5 (31.0-37.0) g/dL RDW 14.1 (11.5-15.5) % Plt Count 211 (150-450) k/uL Neutrophils % 69 % Lymphocytes % 18 % Monocytes % 7 % Eosinophils % 4 % Basophils % 0 % Neutrophils # 6.0 (1.3-7.7) k/uL Lymphocytes # 1.6 (1.0-4.8) k/uL Monocytes # 0.6 (0-1.0) k/uL Eosinophils # 0.3 (0-0.7) k/uL Basophils # 0.0 (0-0.2) k/uL Hypochromasia Slight PT (9.0-12.0) sec INR (<1.1) APTT (22.0-30.0) sec Sodium 138 (137-145) mmol/L Potassium 4.9 (3.5-5.1) mmol/L Chloride 105 (98-107) mmol/L Carbon Dioxide 20 L (22-30) mmol/L Anion Gap 13 mmol/L BUN 62 H (7-17) mg/dL Creatinine 1.69 H (0.52-1.04) mg/dL Est GFR (MDRD) Af Amer 35 (>60 ml/min/1.73 sqM) Est GFR (MDRD) Non-Af 29 (>60 ml/min/1.73 sqM) Glucose 155 H (74-99) mg/dL Calcium 9.0 (8.4-10.2) mg/dL Magnesium 2.4 H (1.6-2.3) mg/dL Total Bilirubin 0.5 (0.2-1.3) mg/dL AST 23 (14-36) U/L ALT 26 (9-52) U/L Alkaline Phosphatase 121 (38-126) U/L Total Creatine Kinase <20 L (30-135) U/L CK-MB (CK-2) 1.0 (0.0-2.4) ng/mL CK-MB (CK-2) Rel Index 0.0 Troponin I <0.012 (0.000-0.034) ng/mL NT-Pro-B Natriuret Pep pg/mL Total Protein 6.8 (6.3-8.2) g/dL Albumin 3.8 (3.5-5.0) g/dL Urine Color Urine Appearance (Clear) Urine pH (5.0-8.0) Ur Specific [place] (1.001-1.035) Urine Protein (Negative) Urine Glucose (UA) (Negative) Urine Ketones (Negative) Urine Blood (Negative) Urine Nitrite (Negative) Urine Bilirubin (Negative) Urine Urobilinogen (<2.0) mg/dL Ur Leukocyte Esterase (Negative) Urine WBC (0-5) /hpf Ur Squamous Epith Cells (0-4) /hpf Urine Bacteria (None) /hpf 01/18/17 01/18/17 01/18/17 Range/Units 13:35 13:35 13:49 WBC (3.8-10.6) k/uL RBC (3.80-5.40) m/uL Hgb (11.4-16.0) gm/dL Hct (34.0-46.0) % MCV (80.0-100.0) fL MCH (25.0-35.0) pg MCHC (31.0-37.0) g/dL RDW (11.5-15.5) % Plt Count (150-450) k/uL Neutrophils % % Lymphocytes % % Monocytes % % Eosinophils % % Basophils % % Neutrophils # (1.3-7.7) k/uL Lymphocytes # (1.0-4.8) k/uL Monocytes # (0-1.0) k/uL Eosinophils # (0-0.7) k/uL Basophils # (0-0.2) k/uL Hypochromasia PT 11.4 (9.0-12.0) sec INR 1.1 (<1.1) APTT 23.3 (22.0-30.0) sec Sodium (137-145) mmol/L Potassium (3.5-5.1) mmol/L Chloride (98-107) mmol/L Carbon Dioxide (22-30) mmol/L Anion Gap mmol/L BUN (7-17) mg/dL Creatinine (0.52-1.04) mg/dL Est GFR (MDRD) Af Amer (>60 ml/min/1.73 sqM) Est GFR (MDRD) Non-Af (>60 ml/min/1.73 sqM) Glucose (74-99) mg/dL Calcium (8.4-10.2) mg/dL Magnesium (1.6-2.3) mg/dL Total Bilirubin (0.2-1.3) mg/dL AST (14-36) U/L ALT (9-52) U/L Alkaline Phosphatase (38-126) U/L Total Creatine Kinase (30-135) U/L CK-MB (CK-2) (0.0-2.4) ng/mL CK-MB (CK-2) Rel Index Troponin I (0.000-0.034) ng/mL NT-Pro-B Natriuret Pep 52766 pg/mL Total Protein (6.3-8.2) g/dL Albumin (3.5-5.0) g/dL Urine Color Light Yellow Urine Appearance Clear (Clear) Urine pH 5.0 (5.0-8.0) Ur Specific [place] 1.006 (1.001-1.035) Urine Protein Negative (Negative) Urine Glucose (UA) Negative (Negative) Urine Ketones Negative (Negative) Urine Blood Negative (Negative) Urine Nitrite Negative (Negative) Urine Bilirubin Negative (Negative) Urine Urobilinogen <2.0 (<2.0) mg/dL Ur Leukocyte Esterase Large H (Negative) Urine WBC 52 H (0-5) /hpf Ur Squamous Epith Cells <1 (0-4) /hpf Urine Bacteria Rare H (None) /hpf Disposition Clinical Impression: Acute pulmonary edema, Urinary tract infection Disposition: ADMITTED IP TO THIS HOSP Referrals: Phil Blood MD [Primary Care Provider] - 1-2 days Time of Disposition: 15:35
[2017-01-18 14:08] LABS: Basophils % (A) 0 %; CH 29.8; CHCM 31.6; Eosinophils # (A) 0.3 k/uL (0-0.7); Eosinophils % (A) 4 %; HCT 37.9 % (34.0-46.0); Hypochromasia Slight; Luc % (Auto) 2; Lymphocytes # (A) 1.6 k/uL (1.0-4.8); Lymphocytes % (A) 18 %; MCHC 31.5 g/dL (31.0-37.0); Mean Platelet Volume 7.7; Monocytes # (A) 0.6 k/uL (0-1.0); Monocytes % (A) 7 %; Neutrophils % (A) 69 %; RBC 3.99 m/uL (3.80-5.40); RDW 14.1 % (11.5-15.5); WBC 8.6 k/uL (3.8-10.6); WBC (Perox) 8.97
[2017-01-18 14:10] LABS: Magnesium 2.4 mg/dL (1.6-2.3); Potassium 4.9 mmol/L (3.5-5.1); Total Bilirubin 0.5 mg/dL (0.2-1.3); Total Protein 6.8 g/dL (6.3-8.2)
[2017-01-18 14:18] LABS: Partial Thromboplastin Time 23.3 sec (22.0-30.0)
[2017-01-18 14:20] LABS: INR 1.1 (<1.1); Prothrombin Time 11.4 sec (9.0-12.0)
--- NOTE | 2017-01-18 14:23 | XR ---
EXAMINATION TYPE: XR chest 2V DATE OF EXAM: 01/18/2017 2:14 PM COMPARISON: 12/12/2016 HISTORY: 81-year-old female with chest pain TECHNIQUE: Frontal and lateral views FINDINGS: Left anterior chest wall pacemaker generator with right atrial and right ventricular leads. Heart is borderline enlarged. Diffuse interstitial prominence has a chronic appearance. No jorden cons olidation or pleural effusion. IMPRESSION: Borderline heart size. Interstitial changes appear largely chronic. Correlate to exclude mild pulmona ry vascular congestion.
[2017-01-18 14:28] LABS: Creatine Kinase <20 U/L (30-135)
[2017-01-18 14:41] LABS: Troponin I <0.012 ng/mL (0.000-0.034)
[2017-01-18 14:54] LABS: Appearance,Urine Clear (Clear); Bacteria,Urine Rare /hpf; Bilirubin,Urine Negative (Negative); Glucose,Urine (UA) Negative (Negative); Ketones,Urine Negative (Negative); Leukocyte Esterase,Urine Large (Negative); Nitrite,Urine Negative (Negative); Particle Count 604; Protein,Urine Negative (Negative); Specific Gravity,Urine 1.006 (1.001-1.035); Squamous Epithelial Cell,Urine <1 /hpf (0-4); UA Billing (MACRO vs. MICRO) MICRO; Urobilinogen,Urine <2.0 mg/dL (<2.0); WBC,Urine 52 /hpf (0-5)
[2017-01-18] MEDS ORDERED: LEVOFLOXACIN 750 MG TAB PO STA (15:38)
[2017-01-18 16:43] LABS: Glucose,Whole Blood 144 mg/dL (75-99)
[2017-01-18] MEDS: NITROGLYCERIN OINT 1 INCH/GM PACKET TOPICAL SCH ×2 (17:27→21:08)
[2017-01-18] MEDS ORDERED: ACETAMINOPHEN TAB 500 MG TAB PO PRN (20:17)
[2017-01-18] MEDS ORDERED: hydrALAZINE HCL 25 MG TAB PO SCH (20:30)
[2017-01-18] MEDS ORDERED: MELATONIN 5 MG TABLET PO PRN (21:00)
--- NOTE | 2017-01-18 21:00 | P.HPIM ---
History of Present Illness Chief complaint: Shortness of breath. History of present illness: The patient is an 81-year-old female patient of Dr. Phil Corral for whom I am covering. Patient presented earlier today to the emergency room with shortness of breath the last 3 days increasing. Some cough associated with this. No fever or chills or hemoptysis. She also noted a weight gain of 5 pounds at that time. She states she felt some palpitations but no definite chest pain or discomfort. No actual phlegm production. Patient states she was short of breath with minimal exertion in her home. Also was feeling very weak over the past several days. Past medical history: Patient has a history of atherosclerotic heart disease along with previous pacemaker placement for complete heart block. She has chronic diastolic congestive heart failure. Patient apparently has chronic kidney disease stage IV and is followed by nephrology. There is a history of chronic atrial fibrillation. Obstructive sleep apnea on BiPAP. Hypothyroidism. Patient has chronic venous stasis of the lower extremities and gastroesophageal reflux. Type 2 diabetes. ALLERGIES are positive to penicillin and sulfa. Reactions to Demerol. Home medications: Melatonin 5 mg at at bedtime for sleep Hydralazine 12.5 mg for elevated blood pressures. Zocor 20 mg at at bedtime for cholesterol. Protonix 40 mg daily. Multiple vitamin daily. Magnesium oxide 250 mg daily Losartan 50 mg daily Levothyroxine 100 g daily Amaryl 1 mg before breakfast Lasix 40 mg twice a day Flecainide 50 mg twice a day Ferrous sulfate 325 mg daily Patient has recently been on ciprofloxacin 2050 mg twice a day for urinary tract infection per nephrology Vitamin D3 2000 units daily Calcitriol 0.25 g on Friday Atenolol 50 mg twice a day Aspirin 81 mg daily Eliquis 2.5 twice a day Allopurinol 100 mg daily Acetaminophen the thousand milligrams every 8 hours when necessary for pain. Social history: Patient is and still lives independently. Family history: Patient has a daughter who had aortic valve disease. Her father of cardiac illnesses. 2 other daughters in good health. Physical examination: Reveal temperature of 96.8 with a pulse of 78 and irregular. Respirations are 20, with blood pressure 122/67 and she is 98% saturated on room air. Head and neck examination reveals it to be atraumatic. Extraocular movements intact. Pupils equal and reactive to light. No adenopathy in the neck. No thyromegaly. No bruits detected. Breast and pelvic exam deferred. Lungs reveal rales at the left base. Heart tones were slightly irregular but no definite murmurs or rubs appreciated. Abdomen is soft and nontender without organomegaly. No masses. Extremities reveal grade 1-2 edema of the lower extremities with varicose veins. Homans signs negative bilaterally. Neurologically patient is alert. No cranial nerve deficits. No focal weakness. Laboratory results: White count is 8.6 with hemoglobin 12 and a platelet count of 211 INR 1.1 Sodium is 138 with potassium 4.9. CO2 content was 20. Blood urea nitrogen 62 with a creatinine 1.69 GFR 29. Blood sugar was 155. Magnesium mildly elevated at 2.4. CK was 20. Troponin 0.012. BNP was 18,600 Albumin 3.8. Urinalysis still shows large amount of leukocyte esterase. Radiologic studies: Interstitial changes present consistent with some pulmonary vascular congestion and borderline heart size. EKG shows a pacemaker rhythm. Impressions: 1. Acute on chronic diastolic congestive heart failure with shortness of breath and cough and elevated BNP studies. 2. Acute urinary tract infection on antibiotic as an outpatient with ciprofloxacin. 3. Hypermagnesemia 4. Chronic stage IV renal failure 5. Other comorbidities as listed in the past medical history. Plans: Patient has been started on IV Lasix and we will follow output and weights daily. Consult has been placed with cardiology. Will continue on Levaquin but decrease her dose in light of her renal failure. Also will hold magnesium. In light of renal failure may need decreased dose upon discharge. Follow up on renal function and electrolytes. Discussed with patient and staff at bedside. Past Medical History Past Medical History: Heart Failure, Diabetes Mellitus, GERD/Reflux, Hyperlipidemia, Hypertension, Myocardial Infarction (OR), Thyroid Disorder Additional Past Medical History / Comment(s): PALPITATIONS Last Myocardial Infarction Date:: 32 years ago History of Any Multi-Drug Resistant Organisms: None Reported Past Surgical History: Hysterectomy, Pacemaker Additional Past Surgical History / Comment(s): hemmorrhoidectomy/rectocele/ cystocele, cataracats,. vein stripping Past Anesthesia/Blood Transfusion Reactions: No Reported Reaction Type of Cardiac Device: Permanent Pacemaker Device Placement Date:: 03/2016 Past Psychological History: No Psychological Hx Reported Additional Psychological History / Comment(s): lives in own home has 2 steps into home. no pets. gets meals on wheels. has rolling walker /cane. gets meals on wheels. has life alert necklace. has 4 adults children, 4 grand kids,8 great grand kids. Smoking Status: Never smoker Past Alcohol Use History: None Reported Past Drug Use History: None Reported - Past Family History Father Family Medical History: Coronary Artery Disease (CAD), Hyperlipidemia, Hypertension Mother Family Medical History: Unable to Obtain Sister(s) Family Medical History: Cancer Medications and Allergies Home Medications Medication Instructions Recorded Confirmed Type Levothyroxine Sodium [Synthroid] 100 mcg PO DAILY 01/31/14 01/18/17 History Glimepiride [Amaryl] 1 mg PO AC-BRKFST 03/10/16 01/18/17 History Magnesium Oxide [Mag-Ox] 250 mg PO DAILY 03/10/16 01/18/17 History Apixaban [Eliquis] 2.5 mg PO BID 10/12/16 01/18/17 History Aspirin EC [Ecotrin Low Dose] 81 mg PO DAILY 10/12/16 01/18/17 History Flecainide [Tambocor] 50 mg PO BID 10/12/16 01/18/17 History Pantoprazole Sodium [Protonix] 40 mg PO DAILY 10/12/16 01/18/17 History Ferrous Sulfate [Iron (65 MG 325 mg PO DAILY 12/10/16 01/18/17 History Elemental)] Losartan Potassium 50 mg PO DAILY 12/10/16 01/18/17 History Multivitamins, Thera [Multivitamin 1 tab PO DAILY@1200 12/10/16 01/18/17 History (formulary)] Allopurinol [Zyloprim] 100 mg PO DAILY 01/18/17 01/18/17 History Calcitriol [Rocaltrol] 0.25 mcg PO TU 01/18/17 01/18/17 History Cholecalciferol [Vitamin D3] 2,000 unit PO DAILY 01/18/17 01/18/17 History Ciprofloxacin HCl [Cipro] 250 mg PO Q12HR 01/18/17 01/18/17 History hydrALAZINE HCL [Apresoline] 12.5 mg PO DIRECTED 01/18/17 01/18/17 History Allergies Allergy/AdvReac Type Severity Reaction Status Date / Time meperidine HCl [From Demerol] Allergy Nausea & Verified 01/18/17 14:51 Vomiting Penicillins Allergy Rash/Hives Verified 01/18/17 14:51 Sulfa (Sulfonamide Allergy Rash/Hives Verified 01/18/17 14:51 Antibiotics) Physical Exam Vitals: Vital Signs Temp Pulse Pulse Resp BP BP Pulse Ox 01/18/17 17:24 96.8 F L 78 20 122/67 98 01/18/17 17:20 78 16 01/18/17 16:21 97.8 F 60 16 136/87 98 01/18/17 16:10 96.8 F L 78 20 122/67 98 01/18/17 14:03 63 16 143/66 100 01/18/17 13:42 18 01/18/17 13:16 98.2 F 65 20 125/89 99 Intake and Output 01/18/17 01/18/17 01/18/17 06:59 14:59 22:59 Intake Total 120 Balance 120 Intake: Oral 120 Other: Voiding Method Toilet # Voids 1 Weight 99.79 kg 99.79 kg Patient Weight 01/19/17 06:59 Weight 99.79 kg Results CBC & Chem 7: 01/18/17 13:35 01/18/17 13:35 Labs: Abnormal Lab Results - Last 24 Hours (Table) 01/18/17 01/18/17 01/18/17 Range/Units 13:35 13:35 13:49 Carbon Dioxide 20 L (22-30) mmol/L BUN 62 H (7-17) mg/dL Creatinine 1.69 H (0.52-1.04) mg/dL Glucose 155 H (74-99) mg/dL POC Glucose (mg/dL) (75-99) mg/dL Magnesium 2.4 H (1.6-2.3) mg/dL Total Creatine Kinase <20 L (30-135) U/L Ur Leukocyte Esterase Large H (Negative) Urine WBC 52 H (0-5) /hpf Urine Bacteria Rare H (None) /hpf 01/18/17 Range/Units 16:39 Carbon Dioxide (22-30) mmol/L BUN (7-17) mg/dL Creatinine (0.52-1.04) mg/dL Glucose (74-99) mg/dL POC Glucose (mg/dL) 144 H (75-99) mg/dL Magnesium (1.6-2.3) mg/dL Total Creatine Kinase (30-135) U/L Ur Leukocyte Esterase (Negative) Urine WBC (0-5) /hpf Urine Bacteria (None) /hpf Thrombosis Risk Factor Assmnt - Choose All That Apply Each Factor Represents 1 point: Obesity (BMI >25), Swollen legs (current) Each Risk Factor Represents 3 Points: Age 75 years or older Thrombosis Risk Factor Assessment Total Risk Factor Score: 5 Thrombosis Risk Factor Assessment Level: High Risk
[2017-01-18] MEDS: FUROSEMIDE 10 MG/ML 4 ML VIAL IV SCH (21:09)
[2017-01-18 21:14] LABS: Glucose,Whole Blood 178 mg/dL (75-99)
[2017-01-18] MEDS: ATORVASTATIN 10 MG TAB PO SCH (22:49)
[2017-01-18] MEDS: FLECAINIDE 50 MG TAB PO SCH (22:49)
[2017-01-18] MEDS: APIXABAN 2.5 MG TABLET PO SCH (22:49)
[2017-01-18] MEDS: ATENOLOL 50 MG TAB PO SCH (22:49)
[2017-01-19 05:57] LABS: Glucose,Whole Blood 130 mg/dL (75-99)
[2017-01-19 06:47] LABS: Basophils % (A) 0 %; CH 29.9; CHCM 31.8; Eosinophils # (A) 0.2 k/uL (0-0.7); Eosinophils % (A) 3 %; HCT 33.1 % (34.0-46.0); HDW 2.86; HGB 10.6 gm/dL (11.4-16.0); Hypochromasia Slight; Luc # (Auto) 0.13; Luc % (Auto) 2; Lymphocytes # (A) 0.9 k/uL (1.0-4.8); Lymphocytes % (A) 13 %; MCH 30.2 pg (25.0-35.0); MCHC 31.9 g/dL (31.0-37.0); MCV 94.5 fL (80.0-100.0); Mean Platelet Volume 7.5; Monocytes # (A) 0.5 k/uL (0-1.0); Monocytes % (A) 7 %; Neutrophils # (A) 5.2 k/uL (1.3-7.7); Neutrophils % (A) 75 %; WBC (Perox) 7.42
[2017-01-19] MEDS: LEVOTHYROXINE 100 MCG TAB PO SCH (06:51)
[2017-01-19] MEDS: GLIMEPIRIDE 1 MG TAB PO SCH (06:51)
[2017-01-19 06:56] LABS: Calcium 9.2 mg/dL (8.4-10.2); Potassium 4.4 mmol/L (3.5-5.1)
[2017-01-19] MEDS: CHOLECALCIFEROL 1,000 UNIT TAB PO SCH (08:07)
[2017-01-19] MEDS: LOSARTAN 50 MG TAB PO SCH (08:07)
[2017-01-19] MEDS: PANTOPRAZOLE 40 MG TABLET PO SCH (08:07)
[2017-01-19] MEDS: ALLOPURINOL 100 MG TAB PO SCH (08:07)
[2017-01-19] MEDS: APIXABAN 2.5 MG TABLET PO SCH ×2 (08:08→21:30)
[2017-01-19] MEDS: ATENOLOL 50 MG TAB PO SCH ×2 (08:08→21:30)
[2017-01-19] MEDS: FERROUS SULFATE 325 MG TAB PO SCH (08:08)
[2017-01-19] MEDS: FLECAINIDE 50 MG TAB PO SCH ×2 (08:08→21:30)
[2017-01-19] MEDS: ASPIRIN 81 MG CHEW PO SCH (08:08)
[2017-01-19] MEDS: NITROGLYCERIN OINT 1 INCH/GM PACKET TOPICAL SCH (08:09)
[2017-01-19] MEDS: MULTIVITAMINS, THERA 1 EACH TAB PO SCH (08:09)
[2017-01-19] MEDS: FUROSEMIDE 10 MG/ML 4 ML VIAL IV SCH ×3 (08:11→21:31)
[2017-01-19] MEDS ORDERED: LEVOFLOXACIN 250 MG TAB PO SCH (09:00)
[2017-01-19] MEDS ORDERED: MAGNESIUM OXIDE 400 MG TAB PO SCH (09:00)
[2017-01-19] MEDS ORDERED: LEVOFLOXACIN 750 MG TAB PO SCH (09:00)
[2017-01-19] MEDS ORDERED: SENNOSIDES 8.6 MG TAB PO PRN (09:05)
--- NOTE | 2017-01-19 10:19 | P.PN ---
Progress Note - Text The patient is an 81-year-old female, a patient of Dr. Corral for whom I am covering this weekend. Patient presented yesterday to the emergency room with shortness of breath. As she appears to have acute on chronic diastolic congestive heart failure associated with shortness of breath and cough and elevated BNP levels. Ejection fractions from apical earlier this year were good. Patient does have comorbidities with the chronic stage III renal failure. And history of atherosclerotic heart disease with previous pacemaker placement for heart block and sick sinus syndrome. Chronic atrial fibrillation and type 2 diabetes. Also recent urinary tract infection. Presently this morning she is alert lying in bed. She is lying flat without acute shortness of breath and states she feels better than yesterday with exertion in the room. She still has her coughing. No chest pain. Vital signs reveal temperature 96.8 with a pulse of 63 and respirations 18 and nonlabored. Blood pressure 125/57 and she is 97% saturated on room air. Head and neck exam unremarkable except for her chronic facial erythema. Lungs are clearer this morning at the bases. No wheezing. Heart tones regular without murmurs. Abdomen nontender. Minimal edema. No new focal neurological changes. Laboratory results: White count is 7 with a hemoglobin 10.6 and a platelet count of 183. Electrolytes were unremarkable. Potassium 4.4. Blood urea nitrogen 63 with creatinine 1.8 and a GFR of 27. Blood sugar 121. I&O: Patient has had about 600 mL of output recorded. Her weight is down from 99.7 kg to 96.6 kg. Impressions and plans: At this time we will continue with the Lasix pending cardiology consultation. Recheck magnesium in the morning. Continue with Levaquin as culture of urine pending. Discussed with patient at bedside.
--- NOTE | 2017-01-19 11:16 | CONS ---
DATE OF CONSULTATION: Yamilet Lopez presents to the hospital with shortness of breath. She came in with difficulty breathing mostly with exertion. She denied any chest discomfort. This has been going on for quite some time and she also noticed some weight gain and edema. REVIEW OF SYSTEMS: No fever, chills, rigors. No cough or expectoration. No nausea, vomiting, diarrhea. No hematuria or dysuria. No strokes or seizures. No skin lesions or musculoskeletal complaints. Medication list was reviewed and is documented in the chart. ALLERGIES TO PENICILLIN AND SULFA. Past medical history of diabetes, diastolic heart failure, complete heart block status post permanent pacemaker implantation for syncope. Thyroid disorder. On examination, the blood pressure has been in the normal range here 125/57 mmHg. Heart rate is in the 60s. She is afebrile, 96.8. She is lying comfortably in bed. She lies flat in bed. Head and neck examination is normal. Heart sounds S1, S2 are soft. Lungs are clear to auscultation. IMPRESSION: 1. Worsening congestive heart failure, likely diastolic. 2. Permanent pacemaker implantation with 100% RV pacing and previously preserved LV systolic function. 3. Hypertension. Blood pressure is well controlled. 4. Chronic kidney disease with GFR around 30, stage IV kidney disease. 5. Elevated sugar level with diabetes. 6. Troponin is normal. BNP is 18,600. SUGGEST: This is likely a combination of diastolic heart failure in the setting of chronic kidney disease. Her blood pressure seems to be well controlled. I would add hydralazine 10 mg 3 times a day in addition to her current regimen and add metolazone a 2.5 mg at least once or twice a week. Repeat 2-D echo Doppler.
[2017-01-19 12:04] LABS: Glucose,Whole Blood 140 mg/dL (75-99)
[2017-01-19] MEDS: hydrALAZINE HCL 10 MG TAB PO SCH ×3 (12:10→21:30)
[2017-01-19] MEDS ORDERED: MAGNESIUM HYDROXIDE 2,400 MG/10 ML CUP PO PRN (13:56)
[2017-01-19 16:47] LABS: Glucose,Whole Blood 191 mg/dL (75-99)
[2017-01-19] MEDS: ATORVASTATIN 10 MG TAB PO SCH (21:31)
[2017-01-19 21:43] LABS: Glucose,Whole Blood 145 mg/dL (75-99)
[2017-01-20] MEDS: LEVOTHYROXINE 100 MCG TAB PO SCH (06:30)
[2017-01-20] MEDS: GLIMEPIRIDE 1 MG TAB PO SCH (06:30)
[2017-01-20 06:35] LABS: Glucose,Whole Blood 116 mg/dL (75-99)
[2017-01-20 07:17] LABS: Magnesium 2.2 mg/dL (1.6-2.3); Potassium 4.5 mmol/L (3.5-5.1)
[2017-01-20] MEDS: hydrALAZINE HCL 10 MG TAB PO SCH ×2 (08:04→21:24)
[2017-01-20] MEDS: CHOLECALCIFEROL 1,000 UNIT TAB PO SCH (08:05)
[2017-01-20] MEDS: PANTOPRAZOLE 40 MG TABLET PO SCH (08:05)
[2017-01-20] MEDS: FLECAINIDE 50 MG TAB PO SCH ×2 (08:05→21:23)
[2017-01-20] MEDS: FERROUS SULFATE 325 MG TAB PO SCH (08:05)
[2017-01-20] MEDS: FUROSEMIDE 10 MG/ML 4 ML VIAL IV SCH ×3 (08:05→23:55)
[2017-01-20] MEDS: APIXABAN 2.5 MG TABLET PO SCH ×2 (08:05→21:23)
[2017-01-20] MEDS: ASPIRIN 81 MG CHEW PO SCH (08:05)
[2017-01-20] MEDS: ALLOPURINOL 100 MG TAB PO SCH (08:05)
[2017-01-20] MEDS: ATENOLOL 50 MG TAB PO SCH ×2 (08:06→21:23)
[2017-01-20] MEDS: MULTIVITAMINS, THERA 1 EACH TAB PO SCH (08:06)
[2017-01-20] MEDS: LOSARTAN 50 MG TAB PO SCH (08:06)
[2017-01-20] MEDS: SPIRONOLACTONE 25 MG TAB PO SCH (08:14)
[2017-01-20 10:48] VITALS: BMI 34.0
[2017-01-20 11:16] LABS: Glucose,Whole Blood 164 mg/dL (75-99)
--- NOTE | 2017-01-20 14:40 | P.PN ---
<Laura Costa E - Last Filed: 01/20/17 14:32> Subjective Principal diagnosis: CHf This is an 81-year-old female who presented to the hospital mainly with complaints of exertional shortness of breath. She is also noted some weight gain at home. She is currently being treated for congestive heart failure, diastolic in nature. Patient also has a permanent pacemaker in place. Echocardiogram with Doppler study results are yet pending. Continues to be on IV Lasix. Weight down 1 kg. Objective - Vital Signs Vital signs: Vital Signs Temp 96.0 F L 01/20/17 11:27 Pulse 63 01/20/17 11:27 Resp 18 01/20/17 11:27 BP 123/58 01/20/17 11:27 Pulse Ox 98 01/20/17 11:27 Intake & Output 01/19/17 01/20/17 01/20/17 18:59 06:59 18:59 Intake Total 760 100 Output Total 1250 300 350 Balance -490 -300 -250 Weight 95.5 kg 95.5 kg Intake: Oral 760 100 Output: Urine 1250 300 350 Other: Voiding Method Toilet Toilet Toilet # Voids 2 1 2 # Bowel Movements 3 - Exam PHYSICAL EXAMINATION: HEENT: Head is atraumatic, normocephalic. Pupils equal, round. Neck is supple. There is elevated jugular venous pressure. HEART EXAMINATION: Heart S1, S2 normal. No murmur or gallop heard. CHEST EXAMINATION: His reveal diminished air entry to bilateral bases. ABDOMEN: Soft, nontender. Bowel sounds are heard. No organomegaly noted. EXTREMITIES: 2+ peripheral pulses with no evidence of peripheral edema and no calf tenderness noted. NEUROLOGIC patient is awake, alert and oriented -3. . - Labs CBC & Chem 7: 01/19/17 06:16 01/20/17 06:10 Labs: Abnormal Lab Results - Last 24 Hours (Table) 01/19/17 01/19/17 01/20/17 Range/Units 16:45 21:29 06:10 BUN 68 H (7-17) mg/dL Creatinine 1.98 H (0.52-1.04) mg/dL Glucose 123 H (74-99) mg/dL POC Glucose (mg/dL) 191 H 145 H (75-99) mg/dL 01/20/17 01/20/17 Range/Units 06:34 11:15 BUN (7-17) mg/dL Creatinine (0.52-1.04) mg/dL Glucose (74-99) mg/dL POC Glucose (mg/dL) 116 H 164 H (75-99) mg/dL Microbiology - Last 24 Hours (Table) 01/18/17 13:49 Urine Culture - Final Urine,Voided 01/18/17 13:53 Blood Culture - Preliminary Blood No Growth after 24 hours Assessment and Plan (1) Diastolic CHF, acute on chronic Status: Acute (2) Pacemaker Status: Acute (3) HTN (hypertension) Status: Acute (4) CKD (chronic kidney disease) Status: Acute (5) Diabetes Status: Acute (6) Hyperlipemia Status: Acute Plan: From Cardiologys perspective, we'll continue current medications. Await results of echocardiogram with Doppler study. DNP note has been reviewed, I agree with a documented findings and plan of care. Patient was seen and examined. <Romel Ladd - Last Filed: 01/21/17 13:31> Objective - Vital Signs Vital signs: Vital Signs Temp 97.5 F L 01/21/17 11:17 Pulse 62 01/21/17 11:18 Resp 18 01/21/17 11:18 BP 111/56 01/21/17 11:17 Pulse Ox 96 01/21/17 11:17 Intake & Output 01/20/17 01/21/17 01/21/17 18:59 06:59 18:59 Intake Total 420 360 Output Total 1350 700 300 Balance -930 -700 60 Weight 95.5 kg 95 kg Intake: Oral 420 360 Output: Urine 1350 700 300 Other: Voiding Method Toilet Toilet Toilet # Voids 2 2 1 # Bowel Movements 1 - Labs CBC & Chem 7: 01/19/17 06:16 01/21/17 08:37 Labs: Abnormal Lab Results - Last 24 Hours (Table) 01/20/17 01/20/17 01/21/17 Range/Units 16:22 21:08 05:51 Sodium (137-145) mmol/L BUN (7-17) mg/dL Creatinine (0.52-1.04) mg/dL Glucose (74-99) mg/dL POC Glucose (mg/dL) 158 H 159 H 141 H (75-99) mg/dL 01/21/17 01/21/17 Range/Units 08:37 11:17 Sodium 135 L (137-145) mmol/L BUN 71 H (7-17) mg/dL Creatinine 2.14 H (0.52-1.04) mg/dL Glucose 177 H (74-99) mg/dL POC Glucose (mg/dL) 152 H (75-99) mg/dL Microbiology - Last 24 Hours (Table) 01/18/17 13:53 Blood Culture - Preliminary Blood No Growth after 48 hours
[2017-01-20 16:38] LABS: Glucose,Whole Blood 158 mg/dL (75-99)
[2017-01-20 21:10] LABS: Glucose,Whole Blood 159 mg/dL (75-99)
[2017-01-20] MEDS: ATORVASTATIN 10 MG TAB PO SCH (21:23)
[2017-01-21 06:04] LABS: Glucose,Whole Blood 141 mg/dL (75-99)
[2017-01-21] MEDS: LEVOTHYROXINE 100 MCG TAB PO SCH (06:31)
[2017-01-21] MEDS: GLIMEPIRIDE 1 MG TAB PO SCH (06:31)
[2017-01-21] MEDS: FUROSEMIDE 10 MG/ML 4 ML VIAL IV SCH (08:18)
[2017-01-21] MEDS: ASPIRIN 81 MG CHEW PO SCH (08:20)
[2017-01-21] MEDS: FLECAINIDE 50 MG TAB PO SCH ×2 (08:20→20:34)
[2017-01-21] MEDS: CHOLECALCIFEROL 1,000 UNIT TAB PO SCH (08:20)
[2017-01-21] MEDS: hydrALAZINE HCL 10 MG TAB PO SCH ×2 (08:20→20:35)
[2017-01-21] MEDS: FERROUS SULFATE 325 MG TAB PO SCH (08:20)
[2017-01-21] MEDS: ALLOPURINOL 100 MG TAB PO SCH (08:20)
[2017-01-21] MEDS: PANTOPRAZOLE 40 MG TABLET PO SCH (08:20)
[2017-01-21] MEDS: APIXABAN 2.5 MG TABLET PO SCH ×2 (08:20→20:34)
[2017-01-21] MEDS: LOSARTAN 50 MG TAB PO SCH (08:20)
[2017-01-21] MEDS: MULTIVITAMINS, THERA 1 EACH TAB PO SCH (08:20)
[2017-01-21] MEDS: ATENOLOL 50 MG TAB PO SCH ×2 (08:21→20:34)
[2017-01-21] MEDS: FUROSEMIDE 20 MG TAB PO SCH ×2 (08:32→16:29)
--- NOTE | 2017-01-21 08:57 | PN ---
CHIEF COMPLAINT: Re-evaluation. HISTORY OF PRESENT ILLNESS: This is an 81-year-old female who was admitted to the hospital with shortness of breath and dyspnea on exertion class IV. The patient following admission was diuresed with ( ). REVIEW OF SYSTEMS: NEURO: Denies any headaches, dizziness. PSYCH: Some anxiety. CARDIAC: Denies chest pain, angina, palpitation. RESPIRATORY: Denies shortness of breath, cough, orthopnea. GI: No nausea, vomiting, abdominal pain, diarrhea. : No symptoms of dysuria, hematuria. EXTREMITIES: Denies pain. Some edema. CONSTITUTIONAL: No fever or chills. PHYSICAL EXAMINATION: A pleasant female in no distress. VITAL SIGNS: Temperature 97.1, pulse 62, respirations 18, blood pressure 111/46, pulse ox 97% on room air. HEENT: Normocephalic. NECK: No JVD. Chest is clear to auscultation and percussion. CARDIAC: Normal S1, S2 with no gallops. Irregular rhythm. Systolic murmur 2/6 at the apex. ABDOMEN: Soft. Bowel sounds normal. EXTREMITIES: Trace edema. NEUROLOGIC: Awake, alert, oriented, well coordinated movements. LABORATORY ASSESSMENT: Electrolytes normal. BUN 16, creatinine 1.98. Glucose 123. ASSESSMENT: 1. Acute on chronic congestive cardiac failure secondary to systolic dysfunction. 2. Sick sinus syndrome with a pacemaker. 3. Chronic atrial fibrillation. 4. Chronic kidney disease stage IV. PLAN: The patient is stable. Continue present medical regimen. The patient's IV Lasix, which will be decreased to oral Lasix. Patient will be added on small dose of Aldactone 12.5 mg every other day. Obviously with her renal status, we will have to be very careful with her potassium ( ) hydralazine 10 mg b.i.d. The patient's condition discussed with the patient. Prognosis remains guarded. Potential discharge in the next 24 to 48 hours.
[2017-01-21] MEDS ORDERED: CALCITRIOL 0.25 MCG CAP PO SCH (09:00)
[2017-01-21 09:42] LABS: Calcium 9.1 mg/dL (8.4-10.2); Potassium 4.2 mmol/L (3.5-5.1)
[2017-01-21 11:18] VITALS: RESP 18
[2017-01-21 11:18] LABS: Glucose,Whole Blood 152 mg/dL (75-99)
--- NOTE | 2017-01-21 11:33 | ECHOF ---
Referral Reason:chf MEASUREMENTS -------- HEIGHT: 167.6 cm WEIGHT: 95.3 kg BP: 111/58 RVIDd: 5.1 cm (< 3.3) IVSd: 1.0 cm (0.6 - 1.1) LVIDd: 5.2 cm (3.9 - 5.3) LVPWd: 1.1 cm (0.6 - 1.1) IVSs: 1.1 cm LVIDs: 4.6 cm LVPWs: 1.0 cm LAESV Index (A-L): 34.91 ml/m Ao Diam: 3.0 cm (2.0 - 3.7) AV Cusp: 1.8 cm (1.5 - 2.6) LA Diam: 4.6 cm (2.7 - 3.8) MV EXCURSION: 9.718 mm (> 18.000) MV EF SLOPE: 44 mm/s (70 - 150) EPSS: 1.7 cm MV E Earnest: 1.18 m/s MV DecT: 204 ms MV A Earnest: 0.66 m/s MV E/A Ratio: 1.81 RAP: 5.00 mmHg RVSP: 44.48 mmHg FINDINGS -------- Sinus rhythm. This was a technically difficult study with suboptimal views. Left ventricular wall thickness is normal. There is severe global hypokinesis of LV . Overall left ventricular systolic function is severely impaired with, an EF between 25 - 30 %. Mitral Doppler inflow pattern suggests diastolic filling abnormality 22.51. Basal Segment Rossi only. The right ventricle is severely enlarged. LA is moderately dilated 34-39 ml/m2 The right atrium is normal in size. 1.5mg of Definity was utilized for enhancement of images Aortic valve is trileaflet and is mildly thickened. The mitral valve leaflets are mildly thickened. Mild mitral regurgitation is present. Moderate tricuspid regurgitation present. There is mild pulmonary hypertension. The right ventricular systolic pressure, as measured by Doppler, is 44.48mmHg. Trace/mild (physiologic) pulmonic regurgitation. The aortic root size is normal. The pericardium is normal. CONCLUSIONS -------- 1. Sinus rhythm. 2. The right atrium is normal in size. 3. 1.5mg of Definity was utilized for enhancement of images 4. Aortic valve is trileaflet and is mildly thickened. 5. The mitral valve leaflets are mildly thickened. 6. Mild mitral regurgitation is present. 7. Moderate tricuspid regurgitation present. 8. There is mild pulmonary hypertension. 9. The right ventricular systolic pressure, as measured by Doppler, is 44.48mmHg. 10. Trace/mild (physiologic) pulmonic regurgitation. 11. The aortic root size is normal. 12. This was a technically difficult study with suboptimal views. 13. The pericardium is normal. 14. Left ventricular wall thickness is normal. 15. There is severe global hypokinesis of LV . 16. Overall left ventricular systolic function is severely impaired with, an EF between 25 - 30 %. 17. Mitral Doppler inflow pattern suggest diastolic filling abnormality 22.51. 18. Basal Segment Rossi only. 19. The right ventricle is severely enlarged. 20. LA is moderately dilated 34-39 ml/m2 QUOTATION CHECKER: Manisha Anand RDCS
--- NOTE | 2017-01-21 15:52 | P.PN ---
Subjective Principal diagnosis: CHf This is an 81-year-old female who presented to the hospital mainly with complaints of exertional shortness of breath. She is also noted some weight gain at home. She is currently being treated for congestive heart failure. Diuresed on IV Lasix, currently on by mouth Lasix. Creat 2.1 today, up from 1.9. Echocardiogram with Doppler study was performed which revealed an ejection fraction of 25-30%. Echocardiogram with Doppler study which was performed in October revealed an ejection fraction of 55-60%. Patient is 100% paced which could be contributing to the reduced LV function. Dr. Ladd hopes to do a venogram on the patient prior to discharge. Objective - Vital Signs Vital signs: Vital Signs Temp 97.5 F L 01/21/17 11:17 Pulse 62 01/21/17 11:18 Resp 18 01/21/17 11:18 BP 111/56 01/21/17 11:17 Pulse Ox 96 01/21/17 11:17 Intake & Output 01/20/17 01/21/17 01/21/17 18:59 06:59 18:59 Intake Total 420 600 Output Total 1350 700 800 Balance -930 -700 -200 Weight 95.5 kg 95 kg Intake: Oral 420 600 Output: Urine 1350 700 800 Other: Voiding Method Toilet Toilet Toilet # Voids 2 2 1 # Bowel Movements 1 - Exam PHYSICAL EXAMINATION: HEENT: Head is atraumatic, normocephalic. Pupils equal, round. Neck is supple. There is elevated jugular venous pressure. HEART EXAMINATION: Heart S1, S2 normal. No murmur or gallop heard. CHEST EXAMINATION: His reveal diminished air entry to bilateral bases. ABDOMEN: Soft, nontender. Bowel sounds are heard. No organomegaly noted. EXTREMITIES: 2+ peripheral pulses with no evidence of peripheral edema and no calf tenderness noted. NEUROLOGIC patient is awake, alert and oriented -3. . - Labs CBC & Chem 7: 01/19/17 06:16 01/21/17 08:37 Labs: Abnormal Lab Results - Last 24 Hours (Table) 01/20/17 01/20/17 01/21/17 Range/Units 16:22 21:08 05:51 Sodium (137-145) mmol/L BUN (7-17) mg/dL Creatinine (0.52-1.04) mg/dL Glucose (74-99) mg/dL POC Glucose (mg/dL) 158 H 159 H 141 H (75-99) mg/dL 01/21/17 01/21/17 Range/Units 08:37 11:17 Sodium 135 L (137-145) mmol/L BUN 71 H (7-17) mg/dL Creatinine 2.14 H (0.52-1.04) mg/dL Glucose 177 H (74-99) mg/dL POC Glucose (mg/dL) 152 H (75-99) mg/dL Microbiology - Last 24 Hours (Table) 01/18/17 13:53 Blood Culture - Preliminary Blood No Growth after 48 hours Assessment and Plan (1) Diastolic CHF, acute on chronic Status: Acute (2) Pacemaker Status: Acute (3) HTN (hypertension) Status: Acute (4) CKD (chronic kidney disease) Status: Acute (5) Diabetes Status: Acute (6) Hyperlipemia Status: Acute (7) Cardiomyopathy Status: Acute Plan: From Cardiologys perspective, we'll continue current medications. Check the creatinine in the morning, her [facility] would like to perform a venogram on the patient prior to discharge home. Further recommendations to follow. DNP note has been reviewed, I agree with a documented findings and plan of care. Patient was seen and examined.
[2017-01-21 16:27] LABS: Glucose,Whole Blood 138 mg/dL (75-99)
[2017-01-21] MEDS: ATORVASTATIN 10 MG TAB PO SCH (20:34)
[2017-01-21 21:23] LABS: Glucose,Whole Blood 206 mg/dL (75-99)
[2017-01-22 06:15] LABS: Glucose,Whole Blood 112 mg/dL (75-99)
[2017-01-22] MEDS: PANTOPRAZOLE 40 MG TABLET PO SCH (07:18)
[2017-01-22] MEDS: hydrALAZINE HCL 10 MG TAB PO SCH (07:18)
[2017-01-22] MEDS: LEVOTHYROXINE 100 MCG TAB PO SCH (07:18)
[2017-01-22] MEDS: SPIRONOLACTONE 25 MG TAB PO SCH (07:19)
[2017-01-22] MEDS: GLIMEPIRIDE 1 MG TAB PO SCH (07:19)
[2017-01-22] MEDS: ASPIRIN 81 MG CHEW PO SCH (07:20)
[2017-01-22] MEDS: CHOLECALCIFEROL 1,000 UNIT TAB PO SCH (07:20)
[2017-01-22] MEDS: ATENOLOL 50 MG TAB PO SCH (07:20)
[2017-01-22] MEDS: FERROUS SULFATE 325 MG TAB PO SCH (07:20)
[2017-01-22] MEDS: APIXABAN 2.5 MG TABLET PO SCH (07:20)
[2017-01-22] MEDS: ALLOPURINOL 100 MG TAB PO SCH (07:20)
[2017-01-22] MEDS: FUROSEMIDE 20 MG TAB PO SCH (07:21)
[2017-01-22] MEDS: LOSARTAN 50 MG TAB PO SCH (07:21)
[2017-01-22] MEDS: FLECAINIDE 50 MG TAB PO SCH (07:21)
[2017-01-22 07:37] VITALS: PULSE 60
--- NOTE | 2017-01-22 07:44 | PN ---
CHIEF COMPLAINT: Re-evaluation. HISTORY OF PRESENT ILLNESS: An 81-year-old was admitted to the hospital with congestive cardiac failure. The patient has improved symptoms. REVIEW OF SYSTEMS: NEURO: Denies any headaches, dizziness. PSYCH: Anxiety. CARDIAC: No chest pain, angina, palpitations. RESPIRATORY: No shortness of breath. No cough. No hemoptysis. GI: No nausea, vomiting, abdominal pain, diarrhea. : No symptoms of dysuria, hematuria. EXTREMITIES: Denies pain Edema improved. CONSTITUTIONAL: No fever or chills. PHYSICAL EXAMINATION: Pleasant female in no distress. VITALS: Temperature 97.2, pulse 65, respirations 20, blood pressure 111/58, pulse ox 96% on room air. HEENT: Normocephalic. NECK: No JVD. Chest is clear to auscultation. CARDIAC: Normal S1, S2 with no gallops. Systolic murmur 2/6 left sternal border. ABDOMEN: Soft. Bowel sounds are present. EXTREMITIES: Trace edema. NEUROLOGIC: Awake, alert, oriented with well coordinated movements. Laboratory assessment is an echocardiogram which shows significant decrease ejection fraction from October between 25% to 30%. Laboratory assessment reveals the sodium was 135, potassium 4.2, chloride 100, CO2 content 23, BUN 71, creatinine 2.14. Glucose was 177. ASSESSMENT: 1. Acute on chronic congestive cardiac failure secondary to systolic dysfunction. 2. Atrial fibrillation. 3. Pacemaker status. 4. Acute on chronic renal failure. PLAN: Continue present medical regimen. The patient's condition was discussed with the patient. Prognosis guarded. We will repeat patient's electrolytes, BUN and creatinine tomorrow. Potential discharge home tomorrow. I will also discuss with cardiology regarding consideration of Entresto in the treatment of this patient.
[2017-01-22 08:40] LABS: Potassium 4.3 mmol/L (3.5-5.1)
[2017-01-22 11:35] LABS: Glucose,Whole Blood 159 mg/dL (75-99)
[2017-01-22] MEDS: MULTIVITAMINS, THERA 1 EACH TAB PO SCH (13:19)
[2017-01-22 13:38] VITALS: BP 103/51; TEMP 98.8
[2017-01-22] MEDS ORDERED: IOHEXOL 350 MG/ML 50ML BOTTLE INJ ONE (13:41)
--- NOTE | 2017-01-22 13:46 | P.PCN ---
Preoperative Diagnosis: 81-year-old female admitted with congestive heart failure symptoms once again. She has complete heart block with 100% RV pacing few months back her LV function was reportedly in the normal range. Repeat 2-D echo revealed reduced LV systolic function, left ventricular ejection fraction between 25-30% and this is a new finding and explains her heart failure symptoms. Previously she had normal LV systolic function Impression and indication for the procedure dictated below: RV pacing-induced cardiomyopathy Recurrent congestive heart failure symptoms Suggest Upgrade to a biventricular pacemaker Procedure performed 10 mL of IV dye injected in the left upper extremity. Patent left subclavian and axillary venous system along with the innominate and SVC Plan Upgrade to a biventricular pacemaker Maximal heart failure medical therapy Postoperative Diagnosis: Procedure(s) Performed: Implants: Indications for Procedure: Operative Findings: Description of Procedure:
--- NOTE | 2017-01-25 13:31 | P.DS ---
Providers Date of admission: 01/18/17 15:35 Attending physician: Phil Blood Consults: 01/18/17 15:35 Consult Physician Routine Consulting Provider: [facility] Consult Reason/Comments: Acute pulmonary edema Do you want consulting provider notified?: Yes Primary care physician: Phil Blood Hospital Course: Hospital course: This 81-year-old female was admitted to the hospital with complaints of shortness of breath with minimal less than usual activity and associated with some orthopnea. Patient also has noticed some increased weight. She weighs is off every day. The patient tried taking extra Lasix at home due to the increased weight however due to progressive shortness of breath she presents to the emergency room. Patient's noted to have suggestion of decompensation of her congestive cardiac failure. Patient also has associated history of chronic kidney disease stage IV. The patient apparently had been placed on Cipro by the nephrology nurse practitioner for possible urinary tract infection. The patient's urine analysis was unremarkable and urine culture was negative. Patient not on any antibiotics. Patient's was seen by cardiology. Her repeat echo done reveals ejection fraction is down to 20-25% from 50% back in October 2016. In the interim she has had no myocardial infarction. She does have a pacemaker for sick sinus syndrome and bradycardia. She has had anticoagulation with Eliquis. Patient with IV diuresis improved. We also added a small dose Aldactone 12.5 mg every other day realizing patient does have chronic kidney disease stage IV. Her Lasix was increased to 60 mg daily. Have discussed the possibility of starting the patient on entresto. Patient after further that abrasion was taken in for a venogram by the system safety engineer to map out for a possible biventricular pacer. He has planned that a number months time. Meanwhile patient was doing well so she is discharged home. Again instructions to weigh herself and contact us if she gains more than 5 pounds a week or 2 pounds a day patient is fairly compliant with her diet and medications Final diagnosis to include 1. Acute on chronic congestive cardiac failure secondary to systolic dysfunction 2. Dilated cardiomyopathy 3. History of hypertension 4. Sick sinus syndrome status post pacemaker 5. Chronic kidney disease stage IV Plan - Discharge Summary New Discharge Prescriptions: Furosemide [Lasix] 60 mg PO BID@0900,1600 #60 tab hydrALAZINE HCL [Apresoline] 10 mg PO BID #60 tab Spironolactone [Aldactone] 12.5 mg PO Q48H #30 tab Discharge Medication List Levothyroxine Sodium [Synthroid] 100 mcg PO DAILY 01/31/14 [History] Glimepiride [Amaryl] 1 mg PO [id number] 03/10/16 [History] Magnesium Oxide [Mag-Ox] 250 mg PO DAILY 03/10/16 [History] Atenolol [Tenormin] 50 mg PO BID #60 tab 03/25/16 [Rx] Apixaban [Eliquis] 2.5 mg PO BID 10/12/16 [History] Flecainide [Tambocor] 50 mg PO BID 10/12/16 [History] Pantoprazole Sodium [Protonix] 40 mg PO DAILY 10/12/16 [History] Ferrous Sulfate [Iron (65 MG Elemental)] 325 mg PO DAILY 12/10/16 [History] Losartan Potassium 50 mg PO DAILY 12/10/16 [History] Multivitamins, Thera [Multivitamin (formulary)] 1 tab PO DAILY@1200 12/10/16 [ History] Acetaminophen Tab [Tylenol] 1,000 mg PO Q8HR PRN #0 tab 12/13/16 [Rx] Melatonin 5 mg PO HS PRN #0 tablet 12/13/16 [Rx] Simvastatin [Zocor] 20 mg PO HS #90 tab 12/13/16 [Rx] Allopurinol [Zyloprim] 100 mg PO DAILY 01/18/17 [History] Calcitriol [Rocaltrol] 0.25 mcg PO TU 01/18/17 [History] Cholecalciferol [Vitamin D3] 2,000 unit PO DAILY 01/18/17 [History] Furosemide [Lasix] 60 mg PO BID@0900,1600 #60 tab 01/22/17 [Rx] Spironolactone [Aldactone] 12.5 mg PO Q48H #30 tab 01/22/17 [Rx] hydrALAZINE HCL [Apresoline] 10 mg PO BID #60 tab 01/22/17 [Rx] Follow up Appointment(s)/Referral(s): Phil Blood MD [Primary Care Provider] - 1-2 days (office closed at this time patient given all info to make follow up APT.) [facility], [NON-STAFF] - Theodore Starr MD [STAFF PHYSICIAN] - 1 Week (office will contact patient to make APT. patient currently has APT on february 06 2017) Discharge Disposition: HOME SELF-CARE
== END 2017-01-22 15:51 | disposition home or self-care (01) | DRG 291 ==
LOC: EC 13:00 → 6SEL 15:35
PROVIDERS: ADMIT Internal Medicine; ATTEND Internal Medicine
PROC: B51M1ZZ Fluoroscopy of Right Upper Extremity Veins using Low Osmolar Contrast (ICD-10-PCS; principal; 2017-01-22 13:15)
DX: I13.0 Hypertensive heart and chronic kidney disease with heart failure and stage 1 through stage 4 chronic kidney disease, or unspecified chronic kidney disease (principal); I50.43 Acute on chronic combined systolic (congestive) and diastolic (congestive) heart failure; I44.2 Atrioventricular block, complete; N18.4 Chronic kidney disease, stage 4 (severe); N17.9 Acute kidney failure, unspecified; E11.22 Type 2 diabetes mellitus with diabetic chronic kidney disease; E83.41 Hypermagnesemia; I49.5 Sick sinus syndrome; N39.0 Urinary tract infection, site not specified; I25.2 Old myocardial infarction; G47.33 Obstructive sleep apnea (adult) (pediatric); I42.0 Dilated cardiomyopathy; I25.10 Atherosclerotic heart disease of native coronary artery without angina pectoris; I48.2 Chronic atrial fibrillation; E03.9 Hypothyroidism, unspecified; R53.1 Weakness; E78.5 Hyperlipidemia, unspecified; K21.9 Gastro-esophageal reflux disease without esophagitis; I87.8 Other specified disorders of veins; R05 Cough; Z88.0 Allergy status to penicillin; Z82.49 Family history of ischemic heart disease and other diseases of the circulatory system; Z79.899 Other long term (current) drug therapy; Z79.84 Long term (current) use of oral hypoglycemic drugs; Z79.82 Long term (current) use of aspirin; Z95.0 Presence of cardiac pacemaker; Z88.5 Allergy status to narcotic agent; Z88.2 Allergy status to sulfonamides; Z79.01 Long term (current) use of anticoagulants; Z98.49 Cataract extraction status, unspecified eye; Z71.3 Dietary counseling and surveillance; Z90.710 Acquired absence of both cervix and uterus
CPT/HCPCS: 36005; 36415; 71020; 75820; 80048; 80053; 81001; 82550; 82553; 83735; 83880; 84484; 85025; 85610; 85730; 87040; 87086; 93005; 93306; 96374; 99285

== ENCOUNTER 2017-02-13 12:24 | Day surgery (SDC) | payer MEDICARE ==
[2017-02-11 10:28] VITALS: BMI 33.2
[~2017-02-13 12:24] MED LIST changes: +CLINDAMYCIN 600 MG in SODIUM CHLORIDE 0.9% IRRIGATIO 250 ML IRRIGATION ONE; +HYDROmorphone 1 MG/ML 1 ML SYRINGE IVP PRN; +LACTATED RINGERS 1,000 ML IV SCH; -LEVOFLOXACIN 500MG-D5W PMX 500 MG in DEXTROSE/WATER 1 100ML.BAG IVPB STA; +LIDOCAINE 1% 20 ML VIAL (10MG/ML) FOR IV START INTRADERMA PRN; +ONDANSETRON 4 MG/2 ML VIAL IVP PRN; +SODIUM CHLORIDE 0.9% 1,000 ML IV SCH
[2017-02-13 13:32] LABS: Basophils % (A) 0 %; CH 30.3; CHCM 32.6; Eosinophils # (A) 0.3 k/uL (0-0.7); Eosinophils % (A) 3 %; HCT 38.3 % (34.0-46.0); HDW 2.65; HGB 12.5 gm/dL (11.4-16.0); Luc # (Auto) 0.18; Luc % (Auto) 2; Lymphocytes # (A) 1.9 k/uL (1.0-4.8); Lymphocytes % (A) 22 %; MCH 30.6 pg (25.0-35.0); MCHC 32.8 g/dL (31.0-37.0); MCV 93.3 fL (80.0-100.0); Mean Platelet Volume 8.4; Monocytes # (A) 0.4 k/uL (0-1.0); Monocytes % (A) 4 %; Neutrophils # (A) 5.9 k/uL (1.3-7.7); Neutrophils % (A) 68 %; RDW 15.3 % (11.5-15.5); WBC 8.6 k/uL (3.8-10.6); WBC (Perox) 8.56
[2017-02-13 13:37] LABS: Glucose,Whole Blood 142 mg/dL (75-99)
[2017-02-13] MEDS: CLINDAMYCIN 900 MG in DEXTROSE 5% IN WATER 50 ML IVPB ONE ×4 (15:05→17:59)
[2017-02-13] MEDS ORDERED: CLINDAMYCIN 300 MG in DEXTROSE 5% IN WATER 50 ML IVPB STA ×2 (16:02)
[2017-02-13] MEDS ORDERED: MIDAZOLAM 2 MG/2 ML VIAL ONE (16:25)
[2017-02-13] MEDS ORDERED: PROPOFOL 10 MG/ML 20 ML VIAL IV ONE (16:25)
[2017-02-13] MEDS ORDERED: fentaNYL (PF) 50 MCG/ML 2 ML AMP ONE (16:25)
[2017-02-13] MEDS ORDERED: LIDOCAINE 2% INJ 20 MG/ML SQ ONE (16:54)
[2017-02-13] MEDS ORDERED: LIDOCAINE 1% INJ 10MG/ML (10 ML MDV) SQ ONE (17:21)
[2017-02-13] MEDS ORDERED: IOHEXOL 350 MG/ML 50ML BOTTLE INJ ONE (17:55)
[2017-02-13] MEDS ORDERED: ACETAMINOPHEN TAB 325 MG TAB PO PRN ×2 (19:16→19:18)
[2017-02-13] MEDS ORDERED: HYDROcodone/APAP 5-325MG 1 EACH TAB PO PRN (19:18)
--- NOTE | 2017-02-13 19:32 | P.PCN ---
Preoperative Diagnosis: Transvenous temporary pacing procedure Indication for the procedure: Complete heart block with 100% RV pacing, pacemaker dependency, awaiting upgrade to an biventricular pacemaker Patient was brought to the EP lab in a fasting state. Written informed consent was obtained prior to the procedure. The right groin was prepped and draped as a protocol. A 6-Gabonese sheath was placed in the right femoral vein. Via this, a temporary pacing catheter was placed in the right ventricle. Thresholds were interrogated. Temporary pacing was performed through the rest of the procedure. At the end of the entire procedure, the TVP was removed. The sheath was removed and hemostasis was assured. Patient tolerated the procedure well without any acute complications. Procedure performed Transvenous temporary pacing Postoperative Diagnosis: Procedure(s) Performed: Implants: Anesthesia: MAC Indications for Procedure: Operative Findings: Description of Procedure:
--- NOTE | 2017-02-13 19:45 | LTR ---
February 13, 2017 RE: Yamilet Lopez Smitha Dear Dr. Blood: I had the pleasure of seeing Yamilet Lopez in electrophysiology follow-up. Yamilet underwent upgrade to a biventricular ICD and hopefully, this helps with her LV systolic function which plummeted after a dual chamber pacemaker implantation and 100% RV pacing. I will continue all her current medications. She will follow with you and Dr. Starr as before. Thank you for entrusting me with the care of your patient. Warm regards, Sincerely, ZHAO URENA MD
[2017-02-13] MEDS ORDERED: ACETAMINOPHEN IV (For NPO) 1,000 MG in EMPTY BAG 1 BAG IVPB ONE (20:00)
[2017-02-13] MEDS: hydrALAZINE HCL 10 MG TAB PO SCH (20:03)
[2017-02-13] MEDS: CLINDAMYCIN 900 MG in DEXTROSE 5% IN WATER 50 ML IVPB SCH ×2 (20:03)
[2017-02-13] MEDS: ATENOLOL 50 MG TAB PO SCH (20:04)
[2017-02-13] MEDS: FUROSEMIDE 20 MG TAB PO SCH (20:04)
--- NOTE | 2017-02-13 20:07 | PCN ---
DATE OF PROCEDURE: This patient is an 81-year-old female who underwent a biventricular ICD implantation. She has complete heart block, recent reduction in left ventricular systolic function with acute heart failure, with admission for an acute heart failure exacerbation. Currently she is stable from a heart failure standpoint. She has 100% RV pacing with a complete heart block. Previously LV function was normal. She was brought in for an upgrade to a biventricular pacemaker for management of cardiomyopathy and heart failure. She is appropriate medical treatment. Patient was brought to the EP lab in a fasting state. Written informed consent was obtained prior to the procedure. A transvenous temporary pacemaker was first placed. Thereafter the left pectoral area was prepped and draped as per protocol. Lidocaine 1% was used for local anesthesia. A 4 cm incision was made directly over the previous surgical site and carried down to the level of the generator. The dual-chamber generator was explanted. This was a [employer] [id number] implanted on 03/20/2016, following which there was a gradual progressive reduction in LV systolic function on 2-D echo along with development of heart failure. The left axillary vein was accessed at a single point, and via appropriate-sized introducer sheath, coronary sinus was cannulated and an LV lead was placed. Venogram was performed first. The venogram revealed that she had a very large coronary sinus body that became the lateral vein with a superior and inferior tributary. This was a very large-size lateral vein. She also had a middle cardiac vein. Because of the large caliber of the lateral vein, the largest lead was used for adequate fixation. The standard lead was also used; however, initially the standard curved lead was used. This was placed in the lateral vein in its superior tributary and then later in its inferior tributary. But this lead would slip once. The sheath was removed, and with a little bit of heel it would tend to tort out of the vein because of lack of adequate fixation. Therefore, a large curved lead was used. This was a [employer], model #1458QL, 75 cm in length, and serial #[id number]. This provided adequate and transfixation. However, initially this lead was placed in the superior tributary with excellent thresholds, but once again the lead would slip out, and therefore the inferior tributary was chosen. This resulted in high thresholds as well as diaphragmatic stimulation. Therefore over the wire the LV lead was positioned from the coronary sinus body to the lateral vein to this tributary, which connected to the middle cardiac vein. The tip was then placed in the middle cardiac vein for adequate transfixation because of the size of the lateral vein and the presence of phrenic nerve stimulation and high thresholds within the lateral vein and its tributary. This was a long procedure involving interrogation of the lateral vein, its superior tributary, its inferior tributary, and the middle cardiac vein. Two leads were used. Once the sheath was removed, the lead dislodged because of inadequate transfixation. Therefore the large curved lead had to be ( ) over the angioplasty wire. This was successfully performed and placed in the middle cardiac vein via the large-caliber lateral vein. Finally the lead was in very stable position. Thresholds were excellent, but we had to accept the middle cardiac vein as the target. Once again the route was the coronary sinus to the lateral vein to the inferior tributary connecting to the middle cardiac vein. Diaphragmatic stimulation was noted in the tributaries. Thresholds were poor in the inferior tributary. Transfixation and stability were poor in the superior tributary. Patient tolerated the procedure well without any acute complications. The new generator was implanted: [employer] [id number], serial #[id number]. The atrial pacing threshold was 1 v at 0.5 ms, pacing impedance of 419 ohms. RV pacing threshold was 0.75 v at 0.5 ms, pacing impedance of 830 ohms. LV pacing threshold from the middle cardiac vein distal poles 1 and 2 was 980 ohms, pacing threshold 0.75 v at 0.5 ms. No diaphragmatic stimulation noted. The device was then programmed to DDDR at 50 to 130 bpm with LV offset of minus 40 ms. Patient tolerated the procedure well without any acute complications. IMPRESSION: 1. Removal of the dual-chamber pacemaker generator. 2. Implantation of a new biventricular pacemaker generator, [id number]. 3. Insertion of an LV lead at the time of generator implant [id number]. 4. Increased procedural services as described above, modified 22.
[2017-02-13 20:11] LABS: Glucose,Whole Blood 119 mg/dL (75-99)
[2017-02-13] MEDS ORDERED: ATORVASTATIN 10 MG TAB PO SCH (21:00)
[2017-02-14] MEDS: CLINDAMYCIN 900 MG in DEXTROSE 5% IN WATER 50 ML IVPB SCH ×6 (01:35→13:29)
[2017-02-14] MEDS ORDERED: LEVOTHYROXINE 100 MCG TAB PO SCH (06:30)
[2017-02-14 06:58] LABS: Glucose,Whole Blood 125 mg/dL (75-99)
[2017-02-14] MEDS ORDERED: GLIMEPIRIDE 1 MG TAB PO SCH (07:30)
--- NOTE | 2017-02-14 07:32 | XR ---
EXAMINATION TYPE: XR chest 2V DATE OF EXAM: 02/14/2017 COMPARISON: NONE INDICATION: Lead placement check TECHNIQUE: Frontal and lateral views of the chest are obtained. FINDINGS: The heart size is mildly prominent. The pulmonary vasculature is normal. The lungs are clear. No pneumothorax is evident. Electronic device overlies the left chest. Pacemake r leads appear typical for placement IMPRESSION: 1. Cardiomegaly. 2. No pneumothorax post pacemaker exchange
[2017-02-14 07:33] VITALS: PULSE 60; RESP 16
[2017-02-14] MEDS: hydrALAZINE HCL 10 MG TAB PO SCH (08:26)
[2017-02-14] MEDS: ATENOLOL 50 MG TAB PO SCH (08:26)
[2017-02-14] MEDS: FUROSEMIDE 20 MG TAB PO SCH (08:26)
--- NOTE | 2017-02-14 08:53 | PN ---
Yamilet underwent upgrade to a biventricular pacemaker. She is doing well today. Her pacemaker site has healed well. There is no hematoma. Heart sounds are normal. Breath sounds are normal. Vitals are stable. She is afebrile. She has one more dose of antibiotic left. She is awaiting for pacemaker interrogation. Chest x-ray report was reviewed and is within normal limits. PLAN: Discharge home today and follow up in the device clinic in [address] Starr as before. No changes in the medications. FINAL IMPRESSION: 1. Third degree heart block with 100% RV pacing, pacemaker dependency. 2. Previously normal LV function and now within the last one year with 100% RV pacing severe LV dysfunction. 3. Congestive heart failure secondary to severe LV dysfunction secondary to 100% RV pacing. 4. Status post upgrade to a biventricular pacemaker with addition of an LV lead. Hopefully this improves the LV function and heart failure status.
[2017-02-14] MEDS ORDERED: LOSARTAN 25 MG TAB PO SCH (09:00)
[2017-02-14] MEDS ORDERED: ALLOPURINOL 100 MG TAB PO SCH (09:00)
[2017-02-14] MEDS ORDERED: SPIRONOLACTONE 25 MG TAB PO SCH (09:00)
[2017-02-14] MEDS ORDERED: MAGNESIUM OXIDE 400 MG TAB PO SCH (09:00)
[2017-02-14 11:25] VITALS: BP 117/49; TEMP 98.1
[2017-02-14 11:51] LABS: Glucose,Whole Blood 180 mg/dL (75-99)
== END 2017-02-14 15:48 | disposition home or self-care (01) ==
LOC: CATHEP 12:24 → 3OBS 18:53 → CATHEP 02-14 15:48
PROVIDERS: ATTEND Internal Medicine Clinical Cardiac Electrophysiology
DX: Z45.02 Encounter for adjustment and management of automatic implantable cardiac defibrillator (principal); I44.2 Atrioventricular block, complete; I42.9 Cardiomyopathy, unspecified; E11.9 Type 2 diabetes mellitus without complications; E78.00 Pure hypercholesterolemia, unspecified; E66.9 Obesity, unspecified; M19.90 Unspecified osteoarthritis, unspecified site; D64.9 Anemia, unspecified; I12.9 Hypertensive chronic kidney disease with stage 1 through stage 4 chronic kidney disease, or unspecified chronic kidney disease; N18.3 Chronic kidney disease, stage 3 (moderate); Z86.73 Personal history of transient ischemic attack (TIA), and cerebral infarction without residual deficits; Z68.35 Body mass index [BMI] 35.0-35.9, adult; I50.9 Heart failure, unspecified; Z79.02 Long term (current) use of antithrombotics/antiplatelets; Z79.82 Long term (current) use of aspirin; Z79.899 Other long term (current) drug therapy; Z88.0 Allergy status to penicillin; Z88.2 Allergy status to sulfonamides
CPT/HCPCS: 33225; 33229; 85025; 71020; C1769 ×5; C1894; C1892; C1730 ×2; C1900; C2621; J2001 ×2; J2250; J3010; J0131; J2704; Q9967

== ENCOUNTER → 2017-09-05 | Outpatient (CLI) | payer MEDICARE ==
[2017-09-05 11:59] LABS: Calcium 9.6 mg/dL (8.4-10.2); Potassium 4.7 mmol/L (3.5-5.1)
[2017-09-05 12:16] LABS: Appearance,Urine Clear (Clear); Bilirubin,Urine Negative (Negative); Blood,Urine Negative (Negative); Color,Urine Light Yellow; Glucose,Urine (UA) Negative (Negative); Ketones,Urine Negative (Negative); Leukocyte Esterase,Urine Trace (Negative); Mucus,Urine Rare /hpf; Nitrite,Urine Negative (Negative); Protein,Urine Negative (Negative); RBC,Urine 1 /hpf (0-5); Specific Gravity,Urine 1.004 (1.001-1.035); Squamous Epithelial Cell,Urine <1 /hpf (0-4); Urobilinogen,Urine <2.0 mg/dL (<2.0); WBC,Urine 8 /hpf (0-5)
== END | disposition home or self-care (01) ==
LOC: LABWHC1 11:07
PROVIDERS: ATTEND Internal Medicine
DX: N18.3 Chronic kidney disease, stage 3 (moderate) (principal); A49.8 Other bacterial infections of unspecified site
CPT/HCPCS: 36415; 80048; 81001; 87086

== ENCOUNTER 2017-10-10 13:45 | Inpatient (IN) | payer MEDICARE ==
[2017-10-10] MEDS ORDERED: IPRATROPIUM-ALBUTEROL 3 ML NEB INHALATION STA (14:23)
[2017-10-10] MEDS ORDERED: FUROSEMIDE 10 MG/ML 4 ML VIAL IV STA (14:23)
[2017-10-10] MEDS ORDERED: NITROGLYCERIN OINT 1 INCH/GM PACKET TOPICAL STA (14:23)
--- NOTE | 2017-10-10 14:25 | ED ---
General Adult HPI - General Chief complaint: Shortness of Breath Stated complaint: Dyspnea Time Seen by Provider: 10/10/17 14:15 Source: patient, family, RN notes reviewed Mode of arrival: wheelchair Limitations: no limitations - History of Present Illness Initial comments: Patient is a pleasant 81-year-old female presenting to the emergency Department with shortness of breath. Symptoms have been progressive for over the past week. No fever. Mild nonproductive cough. Legs have been swelling. Patient does have a history of similar symptoms previously associated with CHF. No history of asthma or COPD. No chest pain. - Related Data Home Medications Medication Instructions Recorded Confirmed Levothyroxine Sodium [Synthroid] 100 mcg PO DAILY 01/31/14 10/10/17 Apixaban [Eliquis] 2.5 mg PO BID 10/12/16 10/10/17 Flecainide [Tambocor] 50 mg PO BID 10/12/16 10/10/17 Multivitamins, Thera [Multivitamin 1 tab PO DAILY@1200 12/10/16 10/10/17 (formulary)] Allopurinol [Zyloprim] 100 mg PO DAILY 01/18/17 10/10/17 Calcitriol [Rocaltrol] 0.25 mcg PO TU 01/18/17 10/10/17 Cholecalciferol [Vitamin D3] 4,000 unit PO DAILY 01/18/17 10/10/17 Acetaminophen [Tylenol Arthritis] 650 mg PO Q8H PRN 07/11/17 10/10/17 Atenolol [Tenormin] 50 mg PO BID 10/10/17 10/10/17 Furosemide [Lasix] 20 mg PO DAILY 10/10/17 10/10/17 Glimepiride [Amaryl] 1 mg PO AC-BID 10/10/17 10/10/17 Losartan [Cozaar] 50 mg PO DAILY 10/10/17 10/10/17 Pantoprazole [Protonix] 40 mg PO DAILY 10/10/17 10/10/17 Spironolactone [Aldactone] 12.5 mg PO Q48H 10/10/17 10/10/17 Previous Rx's Medication Instructions Recorded Simvastatin [Zocor] 20 mg PO HS #90 tab 12/13/16 Allergies Allergy/AdvReac Type Severity Reaction Status Date / Time meperidine HCl [From Demerol] Allergy Nausea & Verified 10/10/17 15:12 Vomiting Penicillins Allergy Rash/Hives Verified 10/10/17 15:12 Sulfa (Sulfonamide Allergy Rash/Hives Verified 10/10/17 15:12 Antibiotics) Review of Systems ROS Statement: Those systems with pertinent positive or pertinent negative responses have been documented in the HPI. ROS Other: All systems not noted in ROS Statement are negative. Constitutional: Denies: fever Eyes: Denies: eye pain ENT: Denies: ear pain Respiratory: Reports: cough, dyspnea Cardiovascular: Denies: chest pain Endocrine: Reports: fatigue Gastrointestinal: Denies: abdominal pain, vomiting Genitourinary: Denies: dysuria Musculoskeletal: Denies: back pain Skin: Denies: rash Neurological: Denies: headache Past Medical History Past Medical History: Atrial Fibrillation, Heart Failure, Diabetes Mellitus, GERD/Reflux, Hyperlipidemia, Hypertension, Myocardial Infarction (PR), Sleep Apnea/CPAP/BIPAP, Thyroid Disorder Additional Past Medical History / Comment(s): PALPITATIONS, patient states kidney function tests are not normal and see saw Dr Child about it. Uses CPAP machine. Sick Sinus Syndrome with pacemaker, chronic afib Last Myocardial Infarction Date:: 32 years ago History of Any Multi-Drug Resistant Organisms: ESBL Date of last positivie culture/infection: 07/11/17 MDRO Source:: URINE Past Surgical History: Hysterectomy, Pacemaker Additional Past Surgical History / Comment(s): hemmorrhoidectomy/rectocele/ cystocele, cataracts,. vein stripping Past Anesthesia/Blood Transfusion Reactions: No Reported Reaction Type of Cardiac Device: Permanent Pacemaker Device Placement Date:: 01/2017 Past Psychological History: No Psychological Hx Reported Smoking Status: Never smoker Past Alcohol Use History: None Reported Past Drug Use History: None Reported - Past Family History Father Family Medical History: Coronary Artery Disease (CAD), Hyperlipidemia, Hypertension Mother Family Medical History: Unable to Obtain Sister(s) Family Medical History: Cancer General Exam Limitations: no limitations General appearance: alert, in no apparent distress Head exam: Present: atraumatic Eye exam: Present: normal appearance, PERRL ENT exam: Present: normal oropharynx Neck exam: Present: normal inspection Respiratory exam: Present: wheezes, rales Cardiovascular Exam: Present: regular rate, normal rhythm GI/Abdominal exam: Present: soft. Absent: tenderness Extremities exam: Present: pedal edema. Absent: calf tenderness Back exam: Present: normal inspection Neurological exam: Present: alert Psychiatric exam: Present: normal affect, normal mood Skin exam: Present: normal color Course Vital Signs 10/10/17 10/10/17 10/10/17 13:54 14:42 14:45 Temperature 97.0 F L Pulse Rate 65 62 68 Respiratory 18 20 Rate Blood Pressure 150/68 157/75 O2 Sat by Pulse 100 98 Oximetry 10/10/17 14:55 Temperature Pulse Rate 63 Respiratory Rate Blood Pressure O2 Sat by Pulse Oximetry EKG Findings - EKG Comments: EKG Findings:: Paced rhythm at 63. WA 208. QRS 190. QT 486. QTc 497. Left axis. Wide-complex QRS. Nonspecific ST-T. Medical Decision Making - Medical Decision Making Patient reevaluated and somewhat improved. Still wheezing. Patient still feels short of breath. Patient is not comfortable with discharge home. Case was discussed in detail with Dr. Arrieta, who will admit for Dr. Blood. Patient and family were updated. - Lab Data Result diagrams: 10/10/17 14:36 10/10/17 14:36 Lab Results 10/10/17 10/10/17 10/10/17 Range/Units 14:36 14:36 14:36 WBC 6.5 (3.8-10.6) k/uL RBC 3.32 L (3.80-5.40) m/uL Hgb 10.4 L (11.4-16.0) gm/dL Hct 33.0 L (34.0-46.0) % MCV 99.4 (80.0-100.0) fL MCH 31.3 (25.0-35.0) pg MCHC 31.5 (31.0-37.0) g/dL RDW 14.3 (11.5-15.5) % Plt Count 157 (150-450) k/uL Neutrophils % 65 % Lymphocytes % 22 % Monocytes % 8 % Eosinophils % 4 % Basophils % 0 % Neutrophils # 4.2 (1.3-7.7) k/uL Lymphocytes # 1.4 (1.0-4.8) k/uL Monocytes # 0.5 (0-1.0) k/uL Eosinophils # 0.3 (0-0.7) k/uL Basophils # 0.0 (0-0.2) k/uL PT (9.0-12.0) sec INR (<1.2) APTT (22.0-30.0) sec Sodium 144 (137-145) mmol/L Potassium 6.1 H (3.5-5.1) mmol/L Chloride 113 H (98-107) mmol/L Carbon Dioxide 17 L (22-30) mmol/L Anion Gap 14 mmol/L BUN 73 H (7-17) mg/dL Creatinine 2.26 H (0.52-1.04) mg/dL Est GFR (MDRD) Af Amer 25 (>60 ml/min/1.73 sqM) Est GFR (MDRD) Non-Af 21 (>60 ml/min/1.73 sqM) Glucose 115 H (74-99) mg/dL Calcium 9.6 (8.4-10.2) mg/dL Total Bilirubin 0.3 (0.2-1.3) mg/dL AST 22 (14-36) U/L ALT 27 (9-52) U/L Alkaline Phosphatase 160 H (38-126) U/L Total Creatine Kinase 55 (30-135) U/L CK-MB (CK-2) 1.7 (0.0-2.4) ng/mL CK-MB (CK-2) Rel Index 3.1 Troponin I 0.029 (0.000-0.034) ng/mL NT-Pro-B Natriuret Pep pg/mL Total Protein 7.0 (6.3-8.2) g/dL Albumin 4.0 (3.5-5.0) g/dL Urine Color Urine Appearance (Clear) Urine pH (5.0-8.0) Ur Specific [place] (1.001-1.035) Urine Protein (Negative) Urine Glucose (UA) (Negative) Urine Ketones (Negative) Urine Blood (Negative) Urine Nitrite (Negative) Urine Bilirubin (Negative) Urine Urobilinogen (<2.0) mg/dL Ur Leukocyte Esterase (Negative) Urine RBC (0-5) /hpf Urine WBC (0-5) /hpf Ur Squamous Epith Cells (0-4) /hpf Urine Bacteria (None) /hpf Urine Mucus (None) /hpf 02/05/1910/10/17 10/10/17 Range/Units 14:36 14:36 14:36 WBC (3.8-10.6) k/uL RBC (3.80-5.40) m/uL Hgb (11.4-16.0) gm/dL Hct (34.0-46.0) % MCV (80.0-100.0) fL MCH (25.0-35.0) pg MCHC (31.0-37.0) g/dL RDW (11.5-15.5) % Plt Count (150-450) k/uL Neutrophils % % Lymphocytes % % Monocytes % % Eosinophils % % Basophils % % Neutrophils # (1.3-7.7) k/uL Lymphocytes # (1.0-4.8) k/uL Monocytes # (0-1.0) k/uL Eosinophils # (0-0.7) k/uL Basophils # (0-0.2) k/uL PT 9.6 (9.0-12.0) sec INR 1.0 (<1.2) APTT 24.3 (22.0-30.0) sec Sodium (137-145) mmol/L Potassium (3.5-5.1) mmol/L Chloride (98-107) mmol/L Carbon Dioxide (22-30) mmol/L Anion Gap mmol/L BUN (7-17) mg/dL Creatinine (0.52-1.04) mg/dL Est GFR (MDRD) Af Amer (>60 ml/min/1.73 sqM) Est GFR (MDRD) Non-Af (>60 ml/min/1.73 sqM) Glucose (74-99) mg/dL Calcium (8.4-10.2) mg/dL Total Bilirubin (0.2-1.3) mg/dL AST (14-36) U/L ALT (9-52) U/L Alkaline Phosphatase (38-126) U/L Total Creatine Kinase (30-135) U/L CK-MB (CK-2) (0.0-2.4) ng/mL CK-MB (CK-2) Rel Index Troponin I (0.000-0.034) ng/mL NT-Pro-B Natriuret Pep 2590 pg/mL Total Protein (6.3-8.2) g/dL Albumin (3.5-5.0) g/dL Urine Color Light Yellow Urine Appearance Clear (Clear) Urine pH 5.5 (5.0-8.0) Ur Specific [place] 1.008 (1.001-1.035) Urine Protein Negative (Negative) Urine Glucose (UA) Negative (Negative) Urine Ketones Negative (Negative) Urine Blood Negative (Negative) Urine Nitrite Negative (Negative) Urine Bilirubin Negative (Negative) Urine Urobilinogen <2.0 (<2.0) mg/dL Ur Leukocyte Esterase Large H (Negative) Urine RBC 2 (0-5) /hpf Urine WBC 98 H (0-5) /hpf Ur Squamous Epith Cells <1 (0-4) /hpf Urine Bacteria Moderate H (None) /hpf Urine Mucus Rare H (None) /hpf - Radiology Data Radiology results: image reviewed (Chest x-ray shows left lung base nodule. No acute process.) Disposition Clinical Impression: Diastolic CHF, acute on chronic, Urinary tract infection, Dyspnea Disposition: ADMITTED IP TO THIS [facility] Referrals: Phil Blood MD [Primary Care Provider] - 1-2 days Decision Time: 16:15
[2017-10-10 14:47] LABS: Basophils % (A) 0 %; Eosinophils # (A) 0.3 k/uL (0-0.7); Eosinophils % (A) 4 %; HGB 10.4 gm/dL (11.4-16.0); Lymphocytes # (A) 1.4 k/uL (1.0-4.8); Lymphocytes % (A) 22 %; MCH 31.3 pg (25.0-35.0); MCHC 31.5 g/dL (31.0-37.0); MCV 99.4 fL (80.0-100.0); Mean Platelet Volume 7.8; Monocytes # (A) 0.5 k/uL (0-1.0); Monocytes % (A) 8 %; Neutrophils # (A) 4.2 k/uL (1.3-7.7); Neutrophils % (A) 65 %; Platelet Count 157 k/uL (150-450); RBC 3.32 m/uL (3.80-5.40); RDW 14.3 % (11.5-15.5); WBC 6.5 k/uL (3.8-10.6)
[2017-10-10 14:56] LABS: Appearance,Urine Clear (Clear); Bacteria,Urine Moderate /hpf; Bilirubin,Urine Negative (Negative); Blood,Urine Negative (Negative); Color,Urine Light Yellow; Glucose,Urine (UA) Negative (Negative); Ketones,Urine Negative (Negative); Leukocyte Esterase,Urine Large (Negative); Mucus,Urine Rare /hpf; Nitrite,Urine Negative (Negative); PH, Urine 5.5 (5.0-8.0); Protein,Urine Negative (Negative); RBC,Urine 2 /hpf (0-5); Specific Gravity,Urine 1.008 (1.001-1.035); Squamous Epithelial Cell,Urine <1 /hpf (0-4); Urobilinogen,Urine <2.0 mg/dL (<2.0); WBC,Urine 98 /hpf (0-5)
[2017-10-10 14:59] LABS: Calcium 9.6 mg/dL (8.4-10.2); Potassium 6.1 mmol/L (3.5-5.1); Total Bilirubin 0.3 mg/dL (0.2-1.3)
[2017-10-10 15:05] LABS: Partial Thromboplastin Time 24.3 sec (22.0-30.0); Prothrombin Time 9.6 sec (9.0-12.0)
[2017-10-10 15:17] LABS: Creatine Kinase MB 1.7 ng/mL (0.0-2.4); Troponin I 0.029 ng/mL (0.000-0.034)
--- NOTE | 2017-10-10 15:34 | XR ---
EXAMINATION TYPE: XR chest 2V DATE OF EXAM: 10/10/2017 COMPARISON: 07/17/2017 INDICATION: Difficulty breathing cough short of breath TECHNIQUE: Frontal and lateral views of the chest are obtained. FINDINGS: The heart size is normal. The pulmonary vasculature is normal. There is a 0.4 cm nodular along the left heart border. Suspicious infiltrates are not evident. Pacema ker overlies left chest.. IMPRESSION: 1. Small nodular density left lung base. Follow-up exam in 3 months is recommended. 2. An acute pulmonary process is not otherwise identified.
[2017-10-10] MEDS ORDERED: IPRATROPIUM-ALBUTEROL 3 ML NEB INHALATION PRN (16:18)
[2017-10-10] MEDS ORDERED: cefTRIAXone IN SWFI 1,000 MG/10 ML SYRINGE IVP STA (16:22)
[2017-10-10] MEDS: FUROSEMIDE 10 MG/ML 4 ML VIAL IV SCH (16:40)
[2017-10-10] MEDS: NITROGLYCERIN OINT 1 INCH/GM PACKET TOPICAL SCH ×2 (18:33→22:19)
[2017-10-10] MEDS: SODIUM CHLORIDE 0.9% 1,000 ML IV SCH (18:33)
[2017-10-10] MEDS ORDERED: ACETAMINOPHEN TAB 325 MG TAB PO PRN (19:23)
[2017-10-10] MEDS ORDERED: SPIRONOLACTONE 25 MG TAB PO SCH (19:30)
[2017-10-10] MEDS ORDERED: TEMAZEPAM 7.5 MG CAP PO PRN (19:53)
--- NOTE | 2017-10-10 19:54 | P.HPIM ---
History of Present Illness Chief complaint Cough and shortness of breath History of present illness The patient is a 81-year-old female who presented to emergency room with increasing shortness of breath and cough which has been progressive over the past week. Apparently she saw Dr. Blood her primary care physician about a week previous and at that time had her Lasix increased to 40 mg daily. She states she did have some improvement in her urination but continued to have increased cough and discolored phlegm and increasing shortness of breath. She denied any unusual chest pain. No definite fever or chills associated with this. No hemoptysis. Patient has had some increased urination but no unusual dysuria or hematuria. Past medical history Patient has history of chronic congestive heart failure with both systolic and diastolic dysfunction. Dilated cardiomyopathy Chronic venous insufficiency Chronic kidney disease stage 3-4. History of previous atrial fibrillation, paroxysmal on anticoagulation History of diabetes type 2 Positive history of gastroesophageal reflux Hypertension Surgical history: Patient has had pacemaker placement and a previous hysterectomy. Hemorrhoidectomy, rectocele, cystocele repair along with cataract surgery and varicose vein stripping. ALLERGIES Demerol with nausea and vomiting Penicillin with rash and hives Sulfa with rash and hives Home medications Protonix 40 mg daily Amaryl 1 mg before meals twice a day Aldactone 12.5 mg every 48 hours Cozaar 50 mg daily Levothyroxine 100 g daily Tambocor 50 mg twice a day Allopurinol 100 mg daily Calcitriol 0.25 g on Tuesdays Atenolol 50 mg twice a day Eloquis 2.5 twice a day Acetaminophen 650 mg every 8 hours when necessary for pain Lasix recently increased to 40 mg daily Cholecalciferol 4000 units daily Zocor 20 mg at at bedtime Multiple vitamin 1 daily Review of systems As mentioned in history of present illness Patient denies any unusual headache or visual disturbances. No recent falls or trauma. Positive cough which shortness of breath and dyspnea on minimal exertion as mentioned above. No abdominal pain. No nausea vomiting. No bowel changes. No medication. Increased frequency of urination without dysuria. Increase in edema and increase 10 pound weight gain. Social history Patient presently lives alone and has been . She does not smoke or intake alcohol. Family history Patient has a daughter with some cardiac concerns. Father had coronary artery disease and hypertension. He is . Mother also is unknown cause. One sister with a unknown type of malignancy. Physical examination Patient sitting up at the side of the bed. She is alert and oriented. In no acute distress. Temperature 96.9 with a pulse of 70 and respirations 18. Blood pressure has risen to 188/84. She is 100% saturated on room air. Head and neck exam is unremarkable. Atraumatic. Extraocular movements intact. Neck supple without bruits, adenopathy or thyromegaly. Breast and pelvic exam deferred. Lungs revealed generally good air entry with some end expiratory wheeze at the bases bilaterally. Heart tones were regular without murmurs. Abdomen is nontender. No definite organomegaly or masses detected. Extremities reveal 2+ bilateral edema. Neurologically she is alert. Cranial nerves intact. No focal weakness noted. Laboratory White count 6.5 with a hemoglobin 10.4 and a platelet count of 157. INR is 1.0 Sodium is 144 with a potassium 6.1 and a chloride of 133 and a CO2 content of 17. BUN is 73 with a creatinine of 2.26 giving her a GFR of only 21. Blood sugar was 1:15. Alk phos is elevated at 160 but all other liver function tests were unremarkable. Troponin was 0.029. BNP was 2590. Albumin 4 Urinalysis revealed large amount of leukocyte esterase with 98 white cells and moderate bacteria Chest x-ray showed small nodular density at the left lung base, 0.4 cm. Otherwise no acute processes noted. EKG showed wide complexes and pacemaker rhythm. There was some suspicion of pacemaker malfunction Impressions 1. Acute on chronic congestive heart failure with diastolic and systolic components. Associated with increasing shortness of breath, weight gain and edema along with wheezing in the chest. 2. Also additional acute bronchitis with wheeze. 3. Acute on chronic renal failure worsened likely secondary to urinary tract sepsis presently of unknown organism. 4. Hyperkalemia secondary to patient's renal failure. 5. Other comorbidities as listed in the past medical history. Plans The patient is being admitted and will be monitored on the cardiac floor. She will receive increase dosages of Lasix. Follow her weights and I and O. Urine sent for culture and antibiotics in the form of ceftriaxone have been initiated. We will hold her Aldactone even though she is only taking it 12.5 every other day. Kayexalate will be initiated and repeat laboratory values to be drawn tomorrow. Consult with cardiology for evaluation and treatment. Discussed with patient and nursing staff at bedside. Past Medical History Past Medical History: Atrial Fibrillation, Heart Failure, Diabetes Mellitus, GERD/Reflux, Hyperlipidemia, Hypertension, Myocardial Infarction ([place]), Sleep Apnea/CPAP/BIPAP, Thyroid Disorder Additional Past Medical History / Comment(s): PALPITATIONS, patient states kidney function tests are not normal and see saw Dr Child about it. Uses CPAP machine. Sick Sinus Syndrome with pacemaker, chronic afib Last Myocardial Infarction Date:: 32 years ago History of Any Multi-Drug Resistant Organisms: ESBL Date of last positivie culture/infection: 07/11/17 MDRO Source:: URINE Past Surgical History: Hysterectomy, Pacemaker Additional Past Surgical History / Comment(s): hemmorrhoidectomy/rectocele/ cystocele, cataracts,. vein stripping Past Anesthesia/Blood Transfusion Reactions: No Reported Reaction Type of Cardiac Device: Permanent Pacemaker Device Placement Date:: 01/2017 Past Psychological History: No Psychological Hx Reported Smoking Status: Never smoker Past Alcohol Use History: None Reported Past Drug Use History: None Reported - Past Family History Father Family Medical History: Coronary Artery Disease (CAD), Hyperlipidemia, Hypertension Mother Family Medical History: Unable to Obtain Sister(s) Family Medical History: Cancer Medications and Allergies Home Medications Medication Instructions Recorded Confirmed Type Levothyroxine Sodium [Synthroid] 100 mcg PO DAILY 01/31/14 10/10/17 History Apixaban [Eliquis] 2.5 mg PO BID 10/12/16 10/10/17 History Flecainide [Tambocor] 50 mg PO BID 10/12/16 10/10/17 History Multivitamins, Thera [Multivitamin 1 tab PO DAILY@1200 12/10/16 10/10/17 History (formulary)] Simvastatin [Zocor] 20 mg PO HS #90 tab 12/13/16 10/10/17 Rx Allopurinol [Zyloprim] 100 mg PO DAILY 01/18/17 10/10/17 History Calcitriol [Rocaltrol] 0.25 mcg PO TU 01/18/17 10/10/17 History Cholecalciferol [Vitamin D3] 4,000 unit PO DAILY 01/18/17 10/10/17 History Acetaminophen [Tylenol Arthritis] 650 mg PO Q8H PRN 07/11/17 10/10/17 History Atenolol [Tenormin] 50 mg PO BID 10/10/17 10/10/17 History Furosemide [Lasix] 20 mg PO DAILY 10/10/17 10/10/17 History Glimepiride [Amaryl] 1 mg PO AC-BID 10/10/17 10/10/17 History Losartan [Cozaar] 50 mg PO DAILY 10/10/17 10/10/17 History Pantoprazole [Protonix] 40 mg PO DAILY 10/10/17 10/10/17 History Spironolactone [Aldactone] 12.5 mg PO Q48H 10/10/17 10/10/17 History Allergies Allergy/AdvReac Type Severity Reaction Status Date / Time meperidine HCl [From Demerol] Allergy Nausea & Verified 10/10/17 15:12 Vomiting Penicillins Allergy Rash/Hives Verified 10/10/17 15:12 Sulfa (Sulfonamide Allergy Rash/Hives Verified 10/10/17 15:12 Antibiotics) Physical Exam Vitals: Vital Signs Temp Pulse Pulse Resp BP BP Pulse Ox 10/10/17 18:00 96.9 F L 70 18 188/84 100 10/10/17 17:52 68 20 121/56 95 10/10/17 16:39 98.2 F 65 20 119/51 95 10/10/17 14:55 63 10/10/17 14:45 68 10/10/17 14:42 62 20 157/75 98 10/10/17 13:54 97.0 F L 65 18 150/68 100 Intake and Output 10/10/17 10/10/17 10/10/17 06:59 14:59 22:59 Intake Total 240 Balance 240 Intake: Oral 240 Other: Voiding Method Toilet Weight 90.718 kg Patient Weight 10/11/17 06:59 Weight 90.718 kg Results CBC & Chem 7: 10/10/17 14:36 10/10/17 14:36 Labs: Abnormal Lab Results - Last 24 Hours (Table) 10/10/17 10/10/17 10/10/17 Range/Units 14:36 14:36 14:36 RBC 3.32 L (3.80-5.40) m/uL Hgb 10.4 L (11.4-16.0) gm/dL Hct 33.0 L (34.0-46.0) % Potassium 6.1 H (3.5-5.1) mmol/L Chloride 113 H (98-107) mmol/L Carbon Dioxide 17 L (22-30) mmol/L BUN 73 H (7-17) mg/dL Creatinine 2.26 H (0.52-1.04) mg/dL Glucose 115 H (74-99) mg/dL Alkaline Phosphatase 160 H (38-126) U/L Ur Leukocyte Esterase Large H (Negative) Urine WBC 98 H (0-5) /hpf Urine Bacteria Moderate H (None) /hpf Urine Mucus Rare H (None) /hpf
[2017-10-10] MEDS: IPRATROPIUM-ALBUTEROL 3 ML NEB INHALATION SCH (20:32)
[2017-10-10] MEDS: FLECAINIDE 50 MG TAB PO SCH (22:17)
[2017-10-10] MEDS: ATENOLOL 50 MG TAB PO SCH (22:17)
[2017-10-10] MEDS: APIXABAN 2.5 MG TABLET PO SCH (22:17)
[2017-10-10] MEDS: ATORVASTATIN 10 MG TAB PO SCH (22:17)
[2017-10-10] MEDS: SODIUM POLYSTYRENE SULFONATE 15 GM/60 ML BOTTLE PO SCH (22:18)
[2017-10-10 23:01] LABS: Creatine Kinase MB 1.1 ng/mL (0.0-2.4); Troponin I 0.028 ng/mL (0.000-0.034)
[2017-10-11 03:32] LABS: Basophils % (A) 0 %; Eosinophils # (A) 0.2 k/uL (0-0.7); Eosinophils % (A) 4 %; HCT 31.1 % (34.0-46.0); HGB 10.2 gm/dL (11.4-16.0); Lymphocytes # (A) 1.3 k/uL (1.0-4.8); Lymphocytes % (A) 24 %; MCH 31.9 pg (25.0-35.0); MCHC 32.6 g/dL (31.0-37.0); MCV 97.7 fL (80.0-100.0); Mean Platelet Volume 8.1; Monocytes # (A) 0.4 k/uL (0-1.0); Monocytes % (A) 7 %; Neutrophils # (A) 3.2 k/uL (1.3-7.7); Neutrophils % (A) 62 %; Platelet Count 160 k/uL (150-450); RBC 3.19 m/uL (3.80-5.40); RDW 14.6 % (11.5-15.5); WBC 5.3 k/uL (3.8-10.6)
[2017-10-11 03:46] LABS: Calcium 9.3 mg/dL (8.4-10.2); Potassium 5.2 mmol/L (3.5-5.1)
[2017-10-11 04:23] LABS: Troponin I 0.037 ng/mL (0.000-0.034)
[2017-10-11] MEDS: FUROSEMIDE 10 MG/ML 4 ML VIAL IV SCH (04:30)
[2017-10-11] MEDS: PANTOPRAZOLE 40 MG TABLET PO SCH (06:31)
[2017-10-11] MEDS: GLIMEPIRIDE 1 MG TAB PO SCH ×2 (06:31→17:25)
[2017-10-11] MEDS: LEVOTHYROXINE 100 MCG TAB PO SCH (06:32)
[2017-10-11] MEDS: IPRATROPIUM-ALBUTEROL 3 ML NEB INHALATION SCH ×4 (08:47→21:08)
[2017-10-11] MEDS: ALLOPURINOL 100 MG TAB PO SCH (08:53)
[2017-10-11] MEDS: APIXABAN 2.5 MG TABLET PO SCH ×2 (08:53→21:39)
[2017-10-11] MEDS: ATENOLOL 50 MG TAB PO SCH ×2 (08:53→21:39)
[2017-10-11] MEDS: NITROGLYCERIN OINT 1 INCH/GM PACKET TOPICAL SCH ×4 (08:54→21:40)
[2017-10-11] MEDS: CHOLECALCIFEROL 1,000 UNIT TAB PO SCH (08:54)
[2017-10-11] MEDS: cefTRIAXone IN SWFI 1,000 MG/10 ML SYRINGE IVP SCH ×2 (08:54→21:44)
[2017-10-11] MEDS: FLECAINIDE 50 MG TAB PO SCH ×2 (08:54→21:39)
[2017-10-11] MEDS: SODIUM POLYSTYRENE SULFONATE 15 GM/60 ML BOTTLE PO SCH ×2 (08:55→21:39)
[2017-10-11] MEDS: LOSARTAN 50 MG TAB PO SCH (10:19)
--- NOTE | 2017-10-11 10:37 | P.PN ---
Progress Note - Text The patient is an 81-year-old female presented to the emergency room yesterday with increasing shortness of breath, along with productive cough. The patient is a patient of Dr. Blood for whom I am covering. The patient appears to have some element of acute on chronic congestive heart failure along with acute bronchitis and acute on chronic renal failure. Patient also found to have urinary tract infection with sepsis and is presently on antibiotics along with respiratory treatments. Patient also hyperkalemic. Patient states she is feeling better with less cough today. No unusual chest pain. No nausea or vomiting. Patient states urinary symptoms improved. Vital signs reveal temperature 97 with a pulse of 76 and respirations 16. Blood pressure 104/59 and she is 99% saturated on room air. Patient still has some end expiratory wheezing diffusely. Heart tones were somewhat distant but regular. Abdomen nontender. Grade 1 edema. Seems overall improved. No focal neurological deficits. She is alert and oriented. Laboratory White count is 5.3 with a hemoglobin 10.2 and a platelet count of 160. Sodium was 141. Potassium is better at 5.2 although still elevated. CO2 content was 17. BUN of 75 with creatinine of 2.4 giving her a GFR of 19 which is about the same. Blood sugar 107. Troponin did go up slightly to 0.037. no urine culture back yet. Impressions and plans Will add a course of corticosteroids in light of her wheezing as I think her bronchitis may be causing more of her wheeze than congestive heart failure. Will also await further recommendations from cardiology. Repeat labs in the morning. She is still on Kayexalate. Discussed with patient at bedside this morning.
[2017-10-11 11:01] VITALS: BMI 32.5
--- NOTE | 2017-10-11 11:50 | P.CRDCN ---
History of Present Illness Consult date: 10/11/17 History of present illness: This is a 80-year-old female with history of nonischemic cardiomyopathy and also biventricular pacemaker and also chronic renal failure who came to the hospital with complaints of cough and increasing shortness of breath. Patient was having exertional shortness of breath. Denied any chest pain or palpitations. Her chest x-ray did not reveal any significant CHF. Her pro BNP is mildly elevated. On auscultation. Patient is found to have expiratory wheezing and rhonchi suggestive of bronchitis. Patient is started on inhalers along with antibiotics. Patient seemed to be feeling a little better. I will discontinue IV Lasix and start on by mouth Lasix. We'll hold off on the Aldactone because of hyperkalemia. Further recommendations will depend upon clinical course Past Medical History Past Medical History: Atrial Fibrillation, Heart Failure, Diabetes Mellitus, GERD/Reflux, Hyperlipidemia, Hypertension, Myocardial Infarction ([place]), Sleep Apnea/CPAP/BIPAP, Thyroid Disorder Additional Past Medical History / Comment(s): uti's,PALPITATIONS, patient states kidney function tests are not normal and see saw Dr Child about it. Uses CPAP machine. Sick Sinus Syndrome with pacemaker, chronic afib Last Myocardial Infarction Date:: 32 years ago History of Any Multi-Drug Resistant Organisms: ESBL Date of last positivie culture/infection: 07/11/17 MDRO Source:: URINE Past Surgical History: Hysterectomy, Pacemaker Additional Past Surgical History / Comment(s): hemmorrhoidectomy/rectocele/ cystocele, cataracts,. vein stripping Past Anesthesia/Blood Transfusion Reactions: No Reported Reaction Type of Cardiac Device: Permanent Pacemaker Device Placement Date:: 01/2017 Smoking Status: Never smoker - Past Family History Father Family Medical History: Coronary Artery Disease (CAD), Hyperlipidemia, Hypertension, Myocardial Infarction ([place]) Mother Family Medical History: Unable to Obtain Sister(s) Family Medical History: Cancer Medications and Allergies Home Medications Medication Instructions Recorded Confirmed Type Levothyroxine Sodium [Synthroid] 100 mcg PO DAILY 01/31/14 10/10/17 History Apixaban [Eliquis] 2.5 mg PO BID 10/12/16 10/10/17 History Flecainide [Tambocor] 50 mg PO BID 10/12/16 10/10/17 History Multivitamins, Thera [Multivitamin 1 tab PO DAILY@1200 12/10/16 10/10/17 History (formulary)] Simvastatin [Zocor] 20 mg PO HS #90 tab 12/13/16 10/10/17 Rx Allopurinol [Zyloprim] 100 mg PO DAILY 01/18/17 10/10/17 History Calcitriol [Rocaltrol] 0.25 mcg PO TU 01/18/17 10/10/17 History Cholecalciferol [Vitamin D3] 4,000 unit PO DAILY 01/18/17 10/10/17 History Acetaminophen [Tylenol Arthritis] 650 mg PO Q8H PRN 07/11/17 10/10/17 History Atenolol [Tenormin] 50 mg PO BID 10/10/17 10/10/17 History Furosemide [Lasix] 20 mg PO DAILY 10/10/17 10/10/17 History Glimepiride [Amaryl] 1 mg PO AC-BID 10/10/17 10/10/17 History Losartan [Cozaar] 50 mg PO DAILY 10/10/17 10/10/17 History Pantoprazole [Protonix] 40 mg PO DAILY 10/10/17 10/10/17 History Spironolactone [Aldactone] 12.5 mg PO Q48H 10/10/17 10/10/17 History Allergies Allergy/AdvReac Type Severity Reaction Status Date / Time meperidine HCl [From Demerol] Allergy Nausea & Verified 10/10/17 15:12 Vomiting Penicillins Allergy Rash/Hives Verified 10/10/17 15:12 Sulfa (Sulfonamide Allergy Rash/Hives Verified 10/10/17 15:12 Antibiotics) Physical Exam Vitals: Vital Signs Temp Pulse Pulse Resp BP BP BP 10/11/17 11:42 72 10/11/17 08:59 76 10/11/17 08:48 76 10/11/17 08:00 97.0 F L 82 16 104/59 10/11/17 04:00 60 16 101/49 10/11/17 00:00 98.0 F 77 18 129/86 10/10/17 20:42 72 10/10/17 20:32 74 10/10/17 20:00 97.1 F L 74 18 128/58 10/10/17 18:00 96.9 F L 70 18 188/84 10/10/17 17:52 68 20 121/56 10/10/17 16:39 98.2 F 65 20 119/51 10/10/17 14:55 63 10/10/17 14:45 68 10/10/17 14:42 62 20 157/75 10/10/17 13:54 97.0 F L 65 18 150/68 Pulse Ox 10/11/17 11:42 10/11/17 08:59 10/11/17 08:48 10/11/17 08:00 99 10/11/17 04:00 100 10/11/17 00:00 99 10/10/17 20:42 10/10/17 20:32 10/10/17 20:00 98 10/10/17 18:00 100 10/10/17 17:52 95 10/10/17 16:39 95 10/10/17 14:55 10/10/17 14:45 10/10/17 14:42 98 10/10/17 13:54 100 Intake and Output 10/10/17 10/11/17 10/11/17 22:59 06:59 14:59 Intake Total 240 200 Balance 240 200 Intake: Oral 240 200 Other: Voiding Method Toilet Toilet # Voids 0 2 Weight 90.718 kg 91.3 kg 91.3 kg Patient Weight 10/12/17 06:59 Weight 91.3 kg GENERAL EXAM: Patient is alert and oriented and doesn't appear to be in any acute distress HEENT: Normocephalic. Normal reaction of pupils, equal size, normal range of extraocular motion. No erythema or exudates in the throat. NECK: No masses, no nuchal rigidity. CHEST: No chest wall deformity. LUNGS: Diffuse expiratory wheezes and rhonchi HEART: S1 and S2 normal with no audible mumurs or gallops. Regular rhythm, femorals equal on both sides.. ABDOMEN: No hepatosplenomegaly, normal bowel sounds, no guarding or rigidity. SKIN: No rashes CENTRAL NERVOUS SYSTEM: No focal deficits. EXTREMITIES: Resolving edema Results 10/11/17 03:07 10/11/17 03:07 Cardiac Enzymes 10/10/17 10/10/17 10/10/17 Range/Units 14:36 14:36 21:52 AST 22 (14-36) U/L CK-MB (CK-2) 1.7 1.1 (0.0-2.4) ng/mL Troponin I 0.029 0.028 (0.000-0.034) ng/mL 10/11/17 Range/Units 03:07 AST (14-36) U/L CK-MB (CK-2) 1.0 (0.0-2.4) ng/mL Troponin I 0.037 H* (0.000-0.034) ng/mL Coagulation 10/10/17 Range/Units 14:36 PT 9.6 (9.0-12.0) sec APTT 24.3 (22.0-30.0) sec CBC 10/10/17 10/11/17 Range/Units 14:36 03:07 WBC 6.5 5.3 (3.8-10.6) k/uL RBC 3.32 L 3.19 L (3.80-5.40) m/uL Hgb 10.4 L 10.2 L (11.4-16.0) gm/dL Hct 33.0 L 31.1 L (34.0-46.0) % Plt Count 157 160 (150-450) k/uL Comprehensive Metabolic Panel 10/10/17 10/11/17 Range/Units 14:36 03:07 Sodium 144 141 (137-145) mmol/L Potassium 6.1 H 5.2 H (3.5-5.1) mmol/L Chloride 113 H 111 H (98-107) mmol/L Carbon Dioxide 17 L 17 L (22-30) mmol/L BUN 73 H 75 H (7-17) mg/dL Creatinine 2.26 H 2.40 H (0.52-1.04) mg/dL Glucose 115 H 107 H (74-99) mg/dL Calcium 9.6 9.3 (8.4-10.2) mg/dL AST 22 (14-36) U/L ALT 27 (9-52) U/L Alkaline Phosphatase 160 H (38-126) U/L Total Protein 7.0 (6.3-8.2) g/dL Albumin 4.0 (3.5-5.0) g/dL Current Medications Generic Name Dose Route Start Last Admin Trade Name Freq PRN Reason Stop Dose Admin Acetaminophen 650 mg 10/10/17 19:23 Tylenol Tab PO Q8H PRN Pain Albuterol/Ipratropium 3 ml 10/10/17 20:00 10/11/17 11:41 Duoneb 0.5 Mg-3 Mg/3 Ml Soln INHALATION 3 ml RT-QID [facility] Administration Albuterol/Ipratropium 3 ml 10/10/17 16:18 Duoneb 0.5 Mg-3 Mg/3 Ml Soln INHALATION RT-QID PRN Shortness Of Breath Or Wheezing Allopurinol 100 mg 10/11/17 09:00 10/11/17 08:53 Zyloprim PO 100 mg DAILY [facility] Administration Apixaban 2.5 mg 10/10/17 21:00 10/11/17 08:53 Eliquis PO 2.5 mg BID [facility] Administration Atenolol 50 mg 10/10/17 21:00 10/11/17 08:53 Tenormin PO 50 mg BID [facility] Administration Atorvastatin Calcium 10 mg 10/10/17 21:00 10/10/17 22:17 Lipitor PO 10 mg HS [facility] Administration Calcitriol 0.25 mcg 10/14/17 12:00 Rocaltrol PO TU [facility] Ceftriaxone Sodium 1,000 mg 10/11/17 09:00 10/11/17 08:54 Rocephin IVP 1,000 mg Q12HR [facility] Administration Cholecalciferol 4,000 unit 10/11/17 09:00 10/11/17 08:54 Vitamin D3 PO 4,000 unit DAILY [facility] Administration Flecainide Acetate 50 mg 10/10/17 21:00 10/11/17 08:54 Tambocor PO 50 mg BID [facility] Administration Furosemide 40 mg 10/11/17 16:00 Lasix PO BID@0900,1600 [facility] Glimepiride 1 mg 10/11/17 07:30 10/11/17 06:31 Amaryl PO 1 mg AC-BID [facility] Administration Sodium Chloride 1,000 mls @ 20 mls/hr 10/10/17 16:15 10/10/17 18:33 Saline 0.9% IV Not Given .Q24H [facility] Levothyroxine Sodium 100 mcg 10/11/17 06:30 10/11/17 06:32 Synthroid PO 100 mcg DAILY@0630 [facility] Administration Losartan Potassium 50 mg 10/11/17 09:00 10/11/17 10:19 Cozaar PO 50 mg DAILY [facility] Administration Methylprednisolone Sodium Succinate 40 mg 10/11/17 16:00 Solu-Medrol IV Q8HR [facility] Multivitamins 1 each 10/11/17 12:00 Theragran PO DAILY@1200 [facility] Nitroglycerin 1 inch 10/10/17 18:00 10/11/17 08:54 Nitro-Bid Oint TOPICAL 1 inch QID [facility] Administration Pantoprazole Sodium 40 mg 10/11/17 07:30 10/11/17 06:31 Protonix PO 40 mg AC-BRKFST [facility] Administration Sodium Polystyrene Sulfonate 15 gm 10/10/17 21:00 10/11/17 08:55 Kayexalate PO 15 gm BID [facility] Administration Temazepam 7.5 mg 10/10/17 19:53 Restoril PO HS PRN Insomnia Intake and Output 10/10/17 10/11/17 10/11/17 22:59 06:59 14:59 Intake Total 240 200 Balance 240 200 Intake: Oral 240 200 Other: Voiding Method Toilet Toilet # Voids 0 2 Weight 90.718 kg 91.3 kg 91.3 kg Patient Weight 10/12/17 06:59 Weight 91.3 kg 10/11/17 03:07 10/11/17 03:07 EKG Interpretations (text) Pacemaker rhythm Assessment and Plan (1) Acute asthmatic bronchitis Current Visit: Yes Status: Acute Code(s): J45.909 - UNSPECIFIED ASTHMA, UNCOMPLICATED SNOMED Code(s): 279201673 (2) Diastolic CHF, acute on chronic Current Visit: Yes Status: Acute Code(s): I50.33 - ACUTE ON CHRONIC DIASTOLIC (CONGESTIVE) HEART FAILURE SNOMED Code(s): 510378078 (3) CKD (chronic kidney disease) Current Visit: No Status: Acute Code(s): N18.9 - CHRONIC KIDNEY DISEASE, UNSPECIFIED SNOMED Code(s): 987385392 (4) Cardiomyopathy Current Visit: No Status: Acute Code(s): I42.9 - CARDIOMYOPATHY, UNSPECIFIED SNOMED Code(s): 59754657 Plan: Continue with antibiotics and bronchodilators. I will discontinue IV Lasix and start on by mouth Lasix. We'll hold off on Aldactone. Further comminution depend upon clinical course
[2017-10-11] MEDS: MULTIVITAMINS, THERA 1 EACH TAB PO SCH (12:32)
[2017-10-11] MEDS: FUROSEMIDE 40 MG TAB PO SCH (17:24)
[2017-10-11] MEDS: SODIUM CHLORIDE 0.9% 1,000 ML IV SCH (17:24)
[2017-10-11] MEDS: methylPREDNISolone SOD SUCCI 40 MG/ML 1 ML VIAL IV SCH ×2 (17:24→23:45)
[2017-10-11] MEDS: ATORVASTATIN 10 MG TAB PO SCH (21:39)
[2017-10-12] MEDS: LEVOTHYROXINE 100 MCG TAB PO SCH (06:36)
[2017-10-12] MEDS: PANTOPRAZOLE 40 MG TABLET PO SCH (06:36)
[2017-10-12] MEDS: GLIMEPIRIDE 1 MG TAB PO SCH ×2 (06:36→17:27)
[2017-10-12 07:25] LABS: Calcium 9.2 mg/dL (8.4-10.2); Potassium 4.9 mmol/L (3.5-5.1)
[2017-10-12 07:56] LABS: Glucose,Whole Blood 238 mg/dL (75-99)
[2017-10-12] MEDS: cefTRIAXone IN SWFI 1,000 MG/10 ML SYRINGE IVP SCH ×2 (08:01→22:23)
[2017-10-12] MEDS: methylPREDNISolone SOD SUCCI 40 MG/ML 1 ML VIAL IV SCH (08:01)
[2017-10-12] MEDS: ALLOPURINOL 100 MG TAB PO SCH (08:01)
[2017-10-12] MEDS: APIXABAN 2.5 MG TABLET PO SCH ×2 (08:01→23:35)
[2017-10-12] MEDS: ATENOLOL 50 MG TAB PO SCH ×2 (08:01→23:35)
[2017-10-12] MEDS: INSULIN ASPART 100 UNIT/ML 1 ML 10 ML VIAL SQ SCH ×4 (08:01→23:34)
[2017-10-12] MEDS: FLECAINIDE 50 MG TAB PO SCH ×2 (08:02→23:35)
[2017-10-12] MEDS: FUROSEMIDE 40 MG TAB PO SCH (08:02)
[2017-10-12] MEDS: SODIUM POLYSTYRENE SULFONATE 15 GM/60 ML BOTTLE PO SCH (08:02)
[2017-10-12] MEDS: LOSARTAN 50 MG TAB PO SCH (08:02)
[2017-10-12] MEDS: NITROGLYCERIN OINT 1 INCH/GM PACKET TOPICAL SCH ×4 (08:02→23:36)
[2017-10-12] MEDS: CHOLECALCIFEROL 1,000 UNIT TAB PO SCH (08:02)
--- NOTE | 2017-10-12 10:15 | P.PN ---
Progress Note - Text The patient is an 81-year-old female presented to the emergency room 2 days previous with increasing shortness of breath and productive cough. The patient is a patient of Dr. Blood for whom I am covering. The patient has acute bronchitis. Also element of acute on chronic congestive heart failure and acute on chronic renal failure. Patient was started on IV corticosteroids yesterday and appears to be improved this morning. Less shortness of breath and cough. Cardiology note to have regarded. Lasix has been changed to oral. The patient did present with hyperkalemia of 6.1 and a GFR of 21. Vital signs with temperature 97.1 with a pulse of 70 respirations 16. Blood pressure 120/91 and she is 98% saturated on room air. Lungs are clearer today with less expiratory wheeze. Heart tones are regular. Abdomen nontender. No unusual edema. She is alert and oriented without focal weakness. Laboratory Sodium was 141 with potassium down to 4.9. BUN is 82 with creatinine of 2.77. Blood sugars 238 on IV Solu-Medrol. Impressions and plans Patient at this time appears to be responding to treatment. Expiratory wheezing and cough has improved. At this time we will change her IV Solu-Medrol to oral prednisone. Patient also appears to have a urinary tract infection and is on ceftriaxone. Urine cultures pending. We will also add Symbicort Decrease Lasix to just once a day. Repeat BMP in the morning. Discussed with patient at bedside. Possible discharge to home over the next 24- 48 hours if continued improvement. We will also stop her Kayexalate and continue her off Aldactone at this time.
[2017-10-12] MEDS: predniSONE 20 MG TAB PO SCH (10:27)
[2017-10-12] MEDS: IPRATROPIUM-ALBUTEROL 3 ML NEB INHALATION SCH ×4 (10:31→18:55)
[2017-10-12 11:59] LABS: Glucose,Whole Blood 223 mg/dL (75-99)
--- NOTE | 2017-10-12 12:21 | P.PN ---
Subjective Progress Note Date: 10/19/17 Mrs. Lopez is seen and examined today in no acute distress. 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 She presented to the hospital with shortness of breath and is being treated for bronchitis with inhaler and steroids. IV lasix was changes to oral yesterday and she seems to be tolerating this well. Breathing is stable and much improved since admission. Renal function is increasing with Cr today 2.77. Continue to hold off on aldactone. Objective - Vital Signs Vital signs: Vital Signs Temp 97.0 F L 10/12/17 11:35 Pulse 81 10/12/17 11:35 Resp 16 10/12/17 11:35 BP 169/72 10/12/17 11:35 Pulse Ox 98 10/12/17 11:35 Intake & Output 10/11/17 10/12/17 10/12/17 18:59 06:59 18:59 Intake Total 200 600 Balance 200 600 Weight 91.3 kg 90.3 kg Intake: Oral 200 600 Other: Voiding Method Toilet # Voids 1 1 1 # Bowel Movements 1 - Exam Blood pressure 120/91 heart rate 78 afebrile. GENERAL: Well-appearing, well-nourished and in no acute distress. NECK: Supple without JVD or thyromegaly. LUNGS: Faint expiratory wheeze with coarse rhonchi. Respiration equal and unlabored. No rales. HEART: Regular rate and rhythm without murmurs, rubs or gallops. S1 and S2 heard. EXTREMITIES: Normal range of motion, no edema. No clubbing or cyanosis. Peripheral pulses intact and strong. - Labs CBC & Chem 7: 10/11/17 03:07 10/12/17 06:25 Labs: Abnormal Lab Results - Last 24 Hours (Table) 10/12/17 10/12/17 10/12/17 Range/Units 06:25 07:53 11:57 Carbon Dioxide 17 L (22-30) mmol/L BUN 82 H* (7-17) mg/dL Creatinine 2.77 H (0.52-1.04) mg/dL Glucose 221 H (74-99) mg/dL POC Glucose (mg/dL) 238 H 223 H (75-99) mg/dL Assessment and Plan Assessment: ASSESSMENT 1. Acute asthmatic bronchitis 2. Acute on chronic diastolic heart failure, mild and improved 3. Chronic kidney disease, Cr 2.77 4. Ischemic cardiomyopathy 5. Paroxysmal atrial fibrillation on termite control technician anticoagulation 6. Diabetes mellitus 7. Hypertension 8. Dysplidemia PLAN Obtain 2D echocardiogram and doppler study to assess cardiac structure and function. Continue with medical management, recommend pulmonary consult as this seems more pulmonary than cardiac origin. Nurse Practitioner note has been reviewed, I agree with a documented findings and plan of care. Patient was seen and examined.
[2017-10-12] MEDS: MULTIVITAMINS, THERA 1 EACH TAB PO SCH (12:49)
[2017-10-12] MEDS: SODIUM CHLORIDE 0.9% 1,000 ML IV SCH (14:33)
[2017-10-12 16:58] LABS: Glucose,Whole Blood 269 mg/dL (75-99)
[2017-10-12 18:16] LABS: Hemoglobin A1C 5.8 % (4.0-6.0)
[2017-10-12] MEDS: SYMBICORT 80-4.5 MCG INHALER INHALATION SCH (18:55)
[2017-10-12 21:06] LABS: Glucose,Whole Blood 287 mg/dL (75-99)
[2017-10-12] MEDS: ATORVASTATIN 10 MG TAB PO SCH (23:36)
[2017-10-13] MEDS: LEVOTHYROXINE 100 MCG TAB PO SCH (06:25)
[2017-10-13] MEDS: GLIMEPIRIDE 1 MG TAB PO SCH ×2 (06:25→16:58)
[2017-10-13] MEDS: PANTOPRAZOLE 40 MG TABLET PO SCH (06:25)
[2017-10-13 06:32] LABS: Glucose,Whole Blood 206 mg/dL (75-99)
[2017-10-13] MEDS: INSULIN ASPART 100 UNIT/ML 1 ML 10 ML VIAL SQ SCH ×4 (06:53→21:00)
[2017-10-13 07:02] LABS: Calcium 9.2 mg/dL (8.4-10.2); Potassium 3.9 mmol/L (3.5-5.1)
[2017-10-13] MEDS: SYMBICORT 80-4.5 MCG INHALER INHALATION SCH (07:37)
[2017-10-13] MEDS: IPRATROPIUM-ALBUTEROL 3 ML NEB INHALATION SCH ×4 (07:37→19:54)
--- NOTE | 2017-10-13 08:16 | P.PN ---
Progress Note - Text The patient is a 81-year-old female patient of Dr. Blood's for whom I'm covering who 3 days previous presented to emergency room with increasing shortness of breath along with a productive cough. [place] to have acute bronchitis with wheeze along with acute on chronic congestive heart failure and acute on chronic renal failure. Patient did improve somewhat on corticosteroids. She also has received some IV Lasix. She has had some increase in her BUN and creatinine. Initial hyperkalemia has improved. Patient was treated with Kayexalate. This morning she is still coughing. Nonproductive. Still short of breath with exertion in the room. Patient also appeared to have a urinary tract infection on presentation but apparently the lab did not conduct a urine culture. Symptoms though have resolved. Vital signs with temperature 97.8 with a pulse of 80 and respirations 18. Blood pressure 168/79 and she was 95% saturated. Lungs do reveal some end expiratory wheeze. Heart tones were regular. Abdomen nontender. No marked edema noted. No focal neurological changes. Laboratory Sodium is 139 with potassium 3.9. BUN has risen to 88 with a creatinine of 2.49 giving her GFR of 18. Blood sugar was 193 this morning. Impressions and plans 1. Patient continues on prednisone and respiratory treatments along with Symbicort inhaler and is also on ceftriaxone and continues to have some end expiratory wheeze. We will ask pulmonary medicine to see for evaluation and treatment. 2. Worsening renal failure. Patient has seen nephrology in the past and they will be consulted. 3. Cardiology has ordered an echocardiogram which is to be done today. Further recommendations pending results of above and recommendations from consultants. Discussed with patient at bedside.
[2017-10-13] MEDS: ALLOPURINOL 100 MG TAB PO SCH (08:27)
[2017-10-13] MEDS: FLECAINIDE 50 MG TAB PO SCH ×2 (08:27→21:00)
[2017-10-13] MEDS: CHOLECALCIFEROL 1,000 UNIT TAB PO SCH (08:27)
[2017-10-13] MEDS: ATENOLOL 50 MG TAB PO SCH ×2 (08:27→21:00)
[2017-10-13] MEDS: APIXABAN 2.5 MG TABLET PO SCH ×2 (08:27→21:00)
[2017-10-13] MEDS: predniSONE 20 MG TAB PO SCH (08:28)
[2017-10-13] MEDS: NITROGLYCERIN OINT 1 INCH/GM PACKET TOPICAL SCH ×4 (08:28→21:17)
[2017-10-13] MEDS: FUROSEMIDE 40 MG TAB PO SCH (08:28)
[2017-10-13] MEDS: MULTIVITAMINS, THERA 1 EACH TAB PO SCH (08:29)
[2017-10-13] MEDS: LOSARTAN 50 MG TAB PO SCH (08:34)
--- NOTE | 2017-10-13 10:24 | ECHOF ---
Referral Reason:shortness of breath MEASUREMENTS -------- HEIGHT: 165.1 cm WEIGHT: 90.3 kg BP: RVIDd: 3.9 cm (< 3.3) IVSd: 1.2 cm (0.6 - 1.1) LVIDd: 4.2 cm (3.9 - 5.3) LVPWd: 1.2 cm (0.6 - 1.1) IVSs: 1.5 cm LVIDs: 3.1 cm LVPWs: 1.4 cm LA Diam: 4.0 cm (2.7 - 3.8) LAESV Index (A-L): 45.19 ml/m Ao Diam: 2.5 cm (2.0 - 3.7) AV Cusp: 1.6 cm (1.5 - 2.6) LA Diam: 4.6 cm (2.7 - 3.8) MV EXCURSION: 13.666 mm (> 18.000) MV EF SLOPE: 60 mm/s (70 - 150) EPSS: 0.7 cm MV E Earnest: 0.68 m/s MV DecT: 322 ms MV A Earnest: 1.15 m/s MV E/A Ratio: 0.59 AV maxP.06 mmHg AV meanP.06 mmHg RAP: 5.00 mmHg RVSP: 36.57 mmHg FINDINGS -------- Pacerwire seen in RV and RA. This was a technically adequate study. The left ventricular size is normal. There is mild concentric left ventricular hypertrophy. Overa left ventricular systolic function is normal with, an EF between 55 - 60 %. The right ventricle is normal in size. LA is severely dilated >40 ml/m2 The right atrial size is normal. There is mild aortic valve sclerosis. There is mild aortic stenosis present. Peak/mean gradient a cross the Aortic Valve is 20.06mmHg / 11.06mmHg. The mitral valve is normal. Mild mitral regurgitation is present. Mild tricuspid regurgitation present. There is mild pulmonary hypertension. The right ventricular systolic pressure, as measured by Doppler, is 36.57mmHg. Trace/mild (physiologic) pulmonic regurgitation. The aortic root size is normal. There is no pericardial effusion. CONCLUSIONS -------- 1. Pacerwire seen in RV and RA. 2. This was a technically adequate study. 3. The left ventricular size is normal. 4. There is mild concentric left ventricular hypertrophy. 5. Overall left ventricular systolic function is normal with, an EF between 55 - 60 %. 6. LA is severely dilated >40 ml/m2 7. There is mild aortic valve sclerosis. 8. There is mild aortic stenosis present. 9. Peak/mean gradient across the Aortic Valve is 20.06mmHg / 11.06mmHg. 10. Mild mitral regurgitation is present. 11. Mild tricuspid regurgitation present. 12. There is mild pulmonary hypertension. 13. Trace/mild (physiologic) pulmonic regurgitation. 14. The aortic root size is normal. 15. There is no pericardial effusion. CODE NUMBER STAMPER: Jacinda Miller RDCS
[2017-10-13] MEDS: cefTRIAXone IN SWFI 1,000 MG/10 ML SYRINGE IVP SCH ×2 (10:30→21:00)
[2017-10-13 11:34] LABS: Glucose,Whole Blood 164 mg/dL (75-99)
--- NOTE | 2017-10-13 14:23 | P.PN ---
Subjective Progress Note Date: 10/13/17 Principal diagnosis: CHF Mrs. Lopez is seen and examined today in no acute distress. 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 She presented to the hospital with shortness of breath and is being treated for bronchitis with inhaler and steroids. IV lasix was changes to oral , patient's breathing is much more stable today overall. A repeat echocardiogram with Doppler study was performed which revealed a normal left ventricular systolic function. BUN 88, creatinine 2.4. Objective - Vital Signs Vital signs: Vital Signs Temp 97.8 F 10/13/17 04:00 Pulse 82 10/13/17 11:48 Resp 18 10/13/17 11:48 BP 120/58 10/13/17 11:48 Pulse Ox 97 10/13/17 11:48 Intake & Output 10/12/17 10/13/17 10/13/17 18:59 06:59 18:59 Intake Total 1340 360 Balance 1340 360 Weight 99 kg Intake: Oral 1340 360 Other: Voiding Method Toilet Toilet # Voids 1 1 2 # Bowel Movements 1 - Exam PHYSICAL EXAMINATION: HEENT: Head is atraumatic, normocephalic. Pupils equal, round. Neck is supple. There is no elevated jugular venous pressure. HEART EXAMINATION: Heart S1, S2 normal. No murmur or gallop heard. CHEST EXAMINATION: Lungs clear with mild expiratory wheezing throughout. ABDOMEN: Soft, nontender. Bowel sounds are heard. No organomegaly noted. EXTREMITIES: 2+ peripheral pulses with no evidence of peripheral edema and no calf tenderness noted. NEUROLOGIC patient is awake, alert and oriented -3. . - Labs CBC & Chem 7: 10/11/17 03:07 10/13/17 05:57 Labs: Abnormal Lab Results - Last 24 Hours (Table) 10/12/17 10/12/17 10/13/17 Range/Units 16:46 20:52 05:57 Carbon Dioxide 19 L (22-30) mmol/L BUN 88 H* (7-17) mg/dL Creatinine 2.49 H (0.52-1.04) mg/dL Glucose 193 H (74-99) mg/dL POC Glucose (mg/dL) 269 H 287 H (75-99) mg/dL 10/13/17 10/13/17 Range/Units 06:30 11:31 Carbon Dioxide (22-30) mmol/L BUN (7-17) mg/dL Creatinine (0.52-1.04) mg/dL Glucose (74-99) mg/dL POC Glucose (mg/dL) 206 H 164 H (75-99) mg/dL Assessment and Plan Plan: Assessment and plan #1 acute asthmatic bronchitis #2 diastolic congestive heart failure acute on chronic #3 chronic kidney disease, stage III #4 ischemic cardio myopathy #5 paroxysmal atrial fibrillation #6 diabetes #7 hypertension #8 hyperlipidemia Repeat echocardiogram with Doppler study was performed which revealed a normal left ventricular systolic function. From cardiology's perspective, we'll continue current medications, she may be able to be discharged once cleared by primary. DNP note has been reviewed, I agree with a documented findings and plan of care. Patient was seen and examined.
--- NOTE | 2017-10-13 15:28 | CONS ---
CONSULTATION REASON FOR CONSULT: Renal failure. HISTORY OF PRESENT ILLNESS: Patient is an 81-year-old female who was admitted to the hospital with complaints of shortness of breath. She also noticed increased swelling of her lower extremities. The patient was recently discharged. The patient was admitted to the hospital about 3 months ago with urine tract infection and acute kidney injury. Her serum creatinine on this admission was 2.26. It did go up to 2.7 and it is back down to 2.49 today. Her creatinine had been as high as 6 mg/dL on 07/21/2017. Serum creatinine was 2.1 on 09/05/2017. Currently, patient is maintained on 40 mg of Lasix p.o. daily. She has received IV Lasix. Currently, no fluids are running. She states overall she is feeling better. Blood pressure had been slightly low occasionally with systolic of 100- 101 mmHg. No history of use of NSAIDs. HOME MEDICATIONS: Included Lasix 20 mg daily and losartan at 50 mg daily. PAST MEDICAL HISTORY: Significant for hypertension, chronic kidney disease. Recent acute kidney injury, mainly ATN with peak creatinine about 6 on 07/21/2017 with subsequent improvement in kidney function. Creatinine coming down to about 2.1. The CKD stage IIIB with a previous baseline creatinine about 1.8-2 secondary to nephrosclerosis and cardiorenal syndrome, cardiomyopathy, systolic heart failure with ejection fraction 25% with moderate tricuspid regurgitation, type 2 diabetes, hypertension, hyperlipidemia, history of NE, hypothyroidism, atrial fibrillation, gastroesophageal reflux disease. PAST SURGICAL HISTORY: Hysterectomy, pacemaker placement, hemorrhoidectomy, rectocele, cystocele, vein stripping, cataract surgery. SOCIAL HISTORY: Negative for smoking, drug abuse or alcohol abuse. MEDICATIONS: At home include: Synthroid, Amaryl, Mag oxide, Tenormin, Eliquis, Tambocor, Protonix, iron, potassium, multivitamins, Zocor, Zyloprim, Rocaltrol, vitamin D3, Lasix, Aldactone, Tylenol. ALLERGIES: INCLUDE DEMEROL, PENICILLIN, SULFA, THE PENICILLIN AND SULFA CAUSE RASH AND HIVES AND DEMEROL CAUSES NAUSEA AND VOMITING. REVIEW OF SYSTEMS: As per HPI. Other systems negative. EXAMINATION: Patient is comfortable, awake, alert, oriented x3, not in any acute distress. Blood pressure is 142/60, heart rate 82 per minute. She is afebrile. Examination of the heart S1, S2. Examination lungs bilateral breath sounds are heard. Decreased breath sounds at bases. Abdomen is soft, nontender. Exam of lower extremities shows edema 1+ bilaterally. TEST BORER exam is grossly intact. LABS: Chest x-ray shows no acute pulmonary process. Pulmonary vasculature is normal. Small nodular density in the left lung base is noted. Other labs show sodium 139, potassium 3.9, chloride 105, CO2 is 19, BUN 88, serum creatinine 2.49. UA shows no blood or protein, large leukocyte esterase, WBC 98. ASSESSMENT: 1. Acute kidney injury secondary to hypoperfusion with serum creatinine peaking at 2.7 on this admission. It is back down to 2.49. The patient did receive Lasix initially. Currently, it is decreased to 40 mg p.o. daily. The angiotensin receptor blockers are also on hold. Her renal function has improved and I would continue with the current dose of Lasix. Chest x-ray does not show significant pulmonary vascular congestion. Continue to maintain patient off of Cozaar for now. 2. Hypertension, blood pressure currently controlled with occasional systolic pressures of 100-101 mmHg. Continue off of Cozaar. 3. Chronic kidney disease secondary to diabetic nephropathy with baseline creatinine about 1.8-2 mg/dL. 4. Pulmonary nodule to be evaluated by pulmonology. 5. Chronic kidney disease mineral bone disorder maintained on Rocaltrol, which we can continue. 6. Pyuria rule out urinary tract infection. 7. Disproportionately elevated BUN secondary to steroids. 8. Hyperkalemia on initial admission, currently resolved. Etiology was acute kidney injury and use of angiotensin receptor blockers and Aldactone on admission. 9. Cardiomyopathy, ejection fraction 25%. PLAN: Continue current dose of Lasix. Decrease dose of Cozaar it was not on hold. The patient still remains on it. I will decrease the dose to 25 mg daily. Repeat labs in a.m. and check urine culture. Check a CBC in a.m. to rule out underlying GI bleed. MMODL / IJN: [id number] /
[2017-10-13] MEDS: SODIUM CHLORIDE 0.9% 1,000 ML IV SCH (16:58)
[2017-10-13 17:06] LABS: Glucose,Whole Blood 232 mg/dL (75-99)
--- NOTE | 2017-10-13 17:31 | P.CNPUL ---
History of Present Illness Consult date: 10/13/17 Requesting physician: Bj Greenberg Reason for consult: dyspnea, cough, obstructive sleep apnea Chief complaint: Increasing shortness of breath, wheezing, congested cough History of present illness: Yamilet is a 81-year-old white female patient of Dr. Blood who we are asked to see in consultation for patient's persistent symptoms of shortness of breath, congested cough, wheezing. Patient also had increasing peripheral edema. Her cough has been increasingly worse over the last week and she apparently saw Dr. Blood, her PCP, who prescribed the patient oral Lasix 40 mg daily. She did not have any any fever or chills, her phlegm was discolored, yellowish and thick. She denies any chest pain or palpitations. Patient has an underlying history of nonischemic cardiomyopathy, status post biventricular pacemaker implantation , atrial fibrillation, congestive heart failure hypertension, hyperlipidemia, previous myocardial infarction as well as chronic renal failure. She was seen in consultation by cardiology and nephrology, who recommended the patient to remain on the current dose of oral Lasix of 40 mg daily. 2-D echocardiogram from 10/13/2017 showed left ventricular systolic function within normal limits with an EF between 55-60%, there is evidence of mild pulmonary hypertension with right ventricular systolic pressure of 36.57 mmHg. ProBNP was 2590, 3 sets of troponins were done and it peaked at 0.037, total CKs and CK-MBs were negative. Patient had evidence of hyperkalemia on admission, with potassium of 6.1, BUN of 73, and creatinine of 2.26. Currently her renal profile is slightly worse with BUN of 88 and creatinine of 2.49. Patient does have an underlying chronic kidney disease, stage IIIB with a previous baseline creatinine about 1.8-2 secondary to nephrosclerosis and cardiorenal syndrome, cardiomyopathy, systolic heart failure which ejection fraction of 25%. Hyperkalemia is currently resolved, nephrology is following, patient's angiotensin receptor blockers are on hold. Chest x-ray on admission on 2017 showed small nodular density in the left lung base, follow-up was recommended in 3 months. Patient is a lifetime nonsmoker. She states she used to see an asthma and inventory specialist manager in the past, and receive ALLERGY injections. Also has obstructive sleep apnea, has a BiPAP unit with pressures of 12/8 cm of water, the patient is compliant with. During our evaluation patient still has a congested cough, lung sounds are positive for scattered wheezes. But overall she reports improvement in terms of her dyspnea and coughing. She did receive IV Solu-Medrol, Symbicort, and nebulized treatments during this admission, and she responded to treatments well. Review of Systems All systems: negative Constitutional: Denies chills, Denies fever Eyes: denies blurred vision, denies pain Ears, nose, mouth and throat: Denies headache, Denies sore throat Cardiovascular: Reports dyspnea on exertion, Reports edema, Denies chest pain, Denies shortness of breath Respiratory: Reports congestion, Reports cough with sputum, Reports dyspnea, Reports respiratory infections, Reports sleep apnea, Reports wheezing, Denies cough Gastrointestinal: Denies abdominal pain, Denies diarrhea, Denies nausea, Denies vomiting Genitourinary: Denies dysuria, Denies hematuria Musculoskeletal: Denies myalgias Integumentary: Denies pruritus, Denies rash Neurological: Denies numbness, Denies weakness Psychiatric: Denies anxiety, Denies depression Endocrine: Denies fatigue, Denies weight change Allergic/Immunologic: Reports wheezing Past Medical History Past Medical History: Atrial Fibrillation, Heart Failure, Diabetes Mellitus, GERD/Reflux, Hyperlipidemia, Hypertension, Myocardial Infarction ([place]), Sleep Apnea/CPAP/BIPAP, Thyroid Disorder Additional Past Medical History / Comment(s): uti's,PALPITATIONS, patient states kidney function tests are not normal and see saw Dr Child about it. Uses CPAP machine. Sick Sinus Syndrome with pacemaker, chronic afib Last Myocardial Infarction Date:: 32 years ago History of Any Multi-Drug Resistant Organisms: ESBL Date of last positivie culture/infection: 07/11/17 MDRO Source:: URINE Past Surgical History: Hysterectomy, Pacemaker Additional Past Surgical History / Comment(s): hemmorrhoidectomy/rectocele/ cystocele, cataracts,. vein stripping Past Anesthesia/Blood Transfusion Reactions: No Reported Reaction Type of Cardiac Device: Permanent Pacemaker Device Placement Date:: 01/2017 Smoking Status: Never smoker - Past Family History Father Family Medical History: Coronary Artery Disease (CAD), Hyperlipidemia, Hypertension, Myocardial Infarction ([place]) Mother Family Medical History: Unable to Obtain Sister(s) Family Medical History: Cancer Medications and Allergies Home Medications Medication Instructions Recorded Confirmed Type Levothyroxine Sodium [Synthroid] 100 mcg PO DAILY 01/31/14 10/10/17 History Apixaban [Eliquis] 2.5 mg PO BID 10/12/16 10/10/17 History Flecainide [Tambocor] 50 mg PO BID 10/12/16 10/10/17 History Multivitamins, Thera [Multivitamin 1 tab PO DAILY@1200 12/10/16 10/10/17 History (formulary)] Simvastatin [Zocor] 20 mg PO HS #90 tab 12/13/16 10/10/17 Rx Allopurinol [Zyloprim] 100 mg PO DAILY 01/18/17 10/10/17 History Calcitriol [Rocaltrol] 0.25 mcg PO TU 01/18/17 10/10/17 History Cholecalciferol [Vitamin D3] 4,000 unit PO DAILY 01/18/17 10/10/17 History Acetaminophen [Tylenol Arthritis] 650 mg PO Q8H PRN 07/11/17 10/10/17 History Atenolol [Tenormin] 50 mg PO BID 10/10/17 10/10/17 History Furosemide [Lasix] 20 mg PO DAILY 10/10/17 10/10/17 History Glimepiride [Amaryl] 1 mg PO AC-BID 10/10/17 10/10/17 History Losartan [Cozaar] 50 mg PO DAILY 10/10/17 10/10/17 History Pantoprazole [Protonix] 40 mg PO DAILY 10/10/17 10/10/17 History Spironolactone [Aldactone] 12.5 mg PO Q48H 10/10/17 10/10/17 History Albuterol Inhaler [Ventolin Hfa 1 - 2 puff INHALATION Q6HR PRN 30 10/13/17 Rx Inhaler] Days #1 inhaler Budesonide-Formot 160-4.5 Mcg 2 puff INHALATION BID 30 Days #1 10/13/17 Rx [Symbicort 160-4.5 Mcg Inhaler] inhaler Cefuroxime Axetil [Ceftin] 500 mg PO BID 7 Days #14 tab 10/13/17 Rx Ipratropium-Albuterol Nebulize 0 ml INHALATION QID 30 Days #2 box 10/13/17 Rx [Duoneb 0.5 mg-3 mg/3 ml Soln] Montelukast Sodium [Singulair] 10 mg PO HS 30 Days #30 tab 10/13/17 Rx predniSONE 10 mg PO DAILY 16 Days #40 tab 10/13/17 Rx Allergies Allergy/AdvReac Type Severity Reaction Status Date / Time meperidine HCl [From Demerol] Allergy Nausea & Verified 10/10/17 15:12 Vomiting Penicillins Allergy Rash/Hives Verified 10/10/17 15:12 Sulfa (Sulfonamide Allergy Rash/Hives Verified 10/10/17 15:12 Antibiotics) Physical Exam Vitals: Vital Signs Temp Pulse Pulse Resp BP BP BP 10/13/17 15:57 79 18 131/63 10/13/17 15:43 84 10/13/17 15:20 76 10/13/17 11:48 82 16 120/58 10/13/17 11:30 92 10/13/17 11:20 88 10/13/17 08:20 76 18 142/60 10/13/17 07:55 80 10/13/17 07:40 76 10/13/17 04:00 97.8 F 76 18 168/79 10/13/17 00:00 97.9 F 88 18 119/67 10/12/17 20:00 98.0 F 91 16 100/49 10/12/17 19:05 104 H 10/12/17 18:56 101 H Pulse Ox 10/13/17 15:57 97 10/13/17 15:43 10/13/17 15:20 10/13/17 11:48 97 10/13/17 11:30 10/13/17 11:20 10/13/17 08:20 97 10/13/17 07:55 10/13/17 07:40 95 10/13/17 04:00 95 10/13/17 00:00 96 10/12/17 20:00 95 10/12/17 19:05 10/12/17 18:56 Intake and Output 10/13/17 10/13/17 10/13/17 06:59 14:59 22:59 Intake Total 360 Balance 360 Intake: Oral 360 Other: Voiding Method Toilet Toilet Toilet # Voids 1 2 Weight 99 kg Patient Weight 10/14/17 06:59 Weight 99 kg GENERAL EXAM: Alert, , comfortable in no apparent distress. HEAD: Normocephalic/atraumatic. EYES: Normal reaction of pupils, equal size. Conjunctiva pink, sclera white. NOSE: Clear with pink turbinates. THROAT: No erythema or exudates. NECK: No masses, no JVD, no thyroid enlargement, no adenopathy. CHEST: No chest wall deformity. Symmetrical expansion. LUNGS: Equal air entry with diffuse wheezing, patient has a congested cough CVS: Regular rate and rhythm, normal S1 and S2, no gallops, no murmurs, no rubs ABDOMEN: Soft, nontender. No hepatosplenomegaly, normal bowel sounds, no guarding or rigidity. EXTREMITIES: No clubbing, no edema, no cyanosis, 2+ pulses and upper and lower extremities. MUSCULOSKELETAL: Muscle strength and tone normal. SPINE: No scoliosis or deformity SKIN: No rashes CENTRAL NERVOUS SYSTEM: Alert and oriented -3. No focal deficits, tone is normal in all 4 extremities. PSYCHIATRIC: Alert and oriented -3. Appropriate affect. Intact judgment and insight. Results - Laboratory Findings CBC and BMP: 10/11/17 03:07 10/13/17 05:57 PT/INR, D-dimer PT 9.6 sec (9.0-12.0) 10/10/17 14:36 INR 1.0 (<1.2) 10/10/17 14:36 Abnormal lab findings: Abnormal Labs 10/10/17 10/10/17 10/10/17 14:36 14:36 14:36 RBC 3.32 L Hgb 10.4 L Hct 33.0 L Potassium 6.1 H Chloride 113 H Carbon Dioxide 17 L BUN 73 H Creatinine 2.26 H Glucose 115 H POC Glucose (mg/dL) Alkaline Phosphatase 160 H Troponin I Ur Leukocyte Esterase Large H Urine WBC 98 H Urine Bacteria Moderate H Urine Mucus Rare H 10/11/17 10/11/17 10/11/17 03:07 03:07 03:07 RBC 3.19 L Hgb 10.2 L Hct 31.1 L Potassium 5.2 H Chloride 111 H Carbon Dioxide 17 L BUN 75 H Creatinine 2.40 H Glucose 107 H POC Glucose (mg/dL) Alkaline Phosphatase Troponin I 0.037 H* Ur Leukocyte Esterase Urine WBC Urine Bacteria Urine Mucus 10/12/17 10/12/17 10/12/17 06:25 07:53 11:57 RBC Hgb Hct Potassium Chloride Carbon Dioxide 17 L BUN 82 H* Creatinine 2.77 H Glucose 221 H POC Glucose (mg/dL) 238 H 223 H Alkaline Phosphatase Troponin I Ur Leukocyte Esterase Urine WBC Urine Bacteria Urine Mucus 10/12/17 10/12/17 10/13/17 16:46 20:52 05:57 RBC Hgb Hct Potassium Chloride Carbon Dioxide 19 L BUN 88 H* Creatinine 2.49 H Glucose 193 H POC Glucose (mg/dL) 269 H 287 H Alkaline Phosphatase Troponin I Ur Leukocyte Esterase Urine WBC Urine Bacteria Urine Mucus 10/13/17 10/13/17 06:30 11:31 RBC Hgb Hct Potassium Chloride Carbon Dioxide BUN Creatinine Glucose POC Glucose (mg/dL) 206 H 164 H Alkaline Phosphatase Troponin I Ur Leukocyte Esterase Urine WBC Urine Bacteria Urine Mucus - Diagnostic Findings Chest x-ray: report reviewed Additional studies: 2-D echocardiogram, and 12-lead EKG reviewed Assessment and Plan Plan: Assessment: #1. Dyspnea, wheezing, congestive cough secondary to acute asthma exacerbation , with tracheobronchitis #2. Suspect severe persistent asthma, patient reports multiple exacerbations. Reports previously receiving ALLERGY shots from asthma/inventory specialist manager #3. Acute on chronic diastolic congestive heart failure, echocardiogram from shows left ventricular systolic function with EF of 55-60% #4. Acute on chronic renal failure, secondary to ATN. Creatinine peaked at 2.7 this admission, and is currently down to 2.49. Patient has a history of chronic kidney disease secondary to diabetic nephropathy #5. Possible UTI, urinalysis was positive for large amount of leukocyte esterase, urine WBCs, bacteria and mucus. Patient did not have any urinary symptoms on admission, did receive Rocephin empirically. Urine culture was sent , but the patient remained afebrile #6. Nonischemic cardiomyopathy, status post biventricular pacemaker placement #7. Chronic persistent atrial fibrillation, on long-term anticoagulation with Apixaban #8. Hyperkalemia, present on admission, with potassium 6.1, treated with Kayexalate, improved, today's potassium is 3.9 on 10/13/2017 #9. Small nodular density in the left lung base, nonspecific, will be followed up on an outpatient basis #10. Diabetes mellitus type 2 #11. GERD/reflux #12. Hyperlipidemia, hypertension #13. Previous history of myocardial infarction #14. Obstructive sleep apnea, on BiPAP therapy, compliant, her BiPAP settings are 08/08 #15. Lifetime nonsmoker Plan: We will switch the IV steroids to oral prednisone, continue with Rocephin, continue with nebulized treatments we will add Symbicort. We will add Singulair. Patient will need a follow-up appointment with Dr. Lux in the office. Suspect patient has severe persistent asthma, with current exacerbation , with an element of tracheobronchitis. From our standpoint upon discharge, she can be discharged home on prednisone taper, outpatient course of oral Ceftin , Symbicort, DuoNeb nebulized treatments, Ventolin HFA inhaler, and Singulair. Will follow-up regarding a small nodular density in the left lung base on an outpatient basis as well. Continue with her home BiPAP unit at her home settings. I performed a history & physical examination of the patient and discussed their management with my nurse practitioner, Rocio Eden. I reviewed the nurse practitioner's note and agree with the documented findings and plan of care. Lung sounds are positive for diffuse wheezes throughout the lung matthews. The findings and the impression was discussed with the patient. I attest to the documentation by the nurse practitioner. Time with Patient: Greater than 30
[2017-10-13] MEDS: SYMBICORT 160-4.5 MCG INHALER INHALATION SCH (19:54)
[2017-10-13 20:45] LABS: Glucose,Whole Blood 224 mg/dL (75-99)
[2017-10-13] MEDS ORDERED: MONTELUKAST 10 MG TAB PO SCH (21:00)
[2017-10-13] MEDS: ATORVASTATIN 10 MG TAB PO SCH (21:00)
[2017-10-14 00:28] LABS: Appearance,Urine Clear (Clear); Bilirubin,Urine Negative (Negative); Blood,Urine Negative (Negative); Color,Urine Yellow; Glucose,Urine (UA) Negative (Negative); Ketones,Urine Negative (Negative); Leukocyte Esterase,Urine Negative (Negative); Nitrite,Urine Negative (Negative); PH, Urine 5.5 (5.0-8.0); Protein,Urine Negative (Negative); Specific Gravity,Urine 1.011 (1.001-1.035); Urobilinogen,Urine <2.0 mg/dL (<2.0)
[2017-10-14 06:09] LABS: Glucose,Whole Blood 169 mg/dL (75-99)
[2017-10-14] MEDS: INSULIN ASPART 100 UNIT/ML 1 ML 10 ML VIAL SQ SCH ×2 (07:01→11:39)
[2017-10-14] MEDS: PANTOPRAZOLE 40 MG TABLET PO SCH (07:01)
[2017-10-14] MEDS: LEVOTHYROXINE 100 MCG TAB PO SCH (07:01)
[2017-10-14 07:03] LABS: Basophils % (A) 0 %; Eosinophils % (A) 0 %; HCT 28.8 % (34.0-46.0); HGB 8.9 gm/dL (11.4-16.0); Lymphocytes # (A) 0.9 k/uL (1.0-4.8); Lymphocytes % (A) 14 %; MCH 31.1 pg (25.0-35.0); MCHC 30.8 g/dL (31.0-37.0); MCV 100.9 fL (80.0-100.0); Macrocytosis Slight; Mean Platelet Volume 8.1; Monocytes # (A) 0.4 k/uL (0-1.0); Monocytes % (A) 6 %; Neutrophils # (A) 5.2 k/uL (1.3-7.7); Neutrophils % (A) 79 %; Platelet Count 169 k/uL (150-450); RBC 2.86 m/uL (3.80-5.40); RDW 14.5 % (11.5-15.5); WBC 6.7 k/uL (3.8-10.6)
[2017-10-14 07:04] VITALS: RESP 16
[2017-10-14] MEDS: IPRATROPIUM-ALBUTEROL 3 ML NEB INHALATION SCH ×2 (07:25→10:52)
[2017-10-14] MEDS: SYMBICORT 160-4.5 MCG INHALER INHALATION SCH (07:25)
[2017-10-14 07:38] LABS: Calcium 9.2 mg/dL (8.4-10.2); Potassium 4.2 mmol/L (3.5-5.1)
[2017-10-14 08:10] VITALS: TEMP 97.2
[2017-10-14] MEDS: GLIMEPIRIDE 1 MG TAB PO SCH (08:19)
[2017-10-14] MEDS: cefTRIAXone IN SWFI 1,000 MG/10 ML SYRINGE IVP SCH (08:19)
[2017-10-14] MEDS: APIXABAN 2.5 MG TABLET PO SCH (08:21)
[2017-10-14] MEDS: NITROGLYCERIN OINT 1 INCH/GM PACKET TOPICAL SCH ×2 (08:21→11:28)
[2017-10-14] MEDS: ALLOPURINOL 100 MG TAB PO SCH (08:21)
[2017-10-14] MEDS: FUROSEMIDE 40 MG TAB PO SCH (08:22)
[2017-10-14] MEDS: FLECAINIDE 50 MG TAB PO SCH (08:22)
[2017-10-14] MEDS: ATENOLOL 50 MG TAB PO SCH (08:22)
[2017-10-14] MEDS: CHOLECALCIFEROL 1,000 UNIT TAB PO SCH (08:22)
[2017-10-14] MEDS ORDERED: LOSARTAN 25 MG TAB PO SCH (09:00)
[2017-10-14] MEDS ORDERED: predniSONE 10 MG TAB PO SCH (09:00)
[2017-10-14] MEDS ORDERED: CEFUROXIME 250 MG TAB PO SCH (09:00)
--- NOTE | 2017-10-14 11:18 | P.PN ---
Subjective Progress Note Date: 10/14/17 Yamilet is a 81-year-old white female patient of Dr. Blood who we are asked to see in consultation for patient's persistent symptoms of shortness of breath, congested cough, wheezing. Patient also had increasing peripheral edema. Her cough has been increasingly worse over the last week and she apparently saw Dr. Blood, her PCP, who prescribed the patient oral Lasix 40 mg daily. She did not have any any fever or chills, her phlegm was discolored, yellowish and thick. She denies any chest pain or palpitations. Patient has an underlying history of nonischemic cardiomyopathy, status post biventricular pacemaker implantation , atrial fibrillation, congestive heart failure hypertension, hyperlipidemia, previous myocardial infarction as well as chronic renal failure. She was seen in consultation by cardiology and nephrology, who recommended the patient to remain on the current dose of oral Lasix of 40 mg daily. 2-D echocardiogram from 10/13/2017 showed left ventricular systolic function within normal limits with an EF between 55-60%, there is evidence of mild pulmonary hypertension with right ventricular systolic pressure of 36.57 mmHg. ProBNP was 2590, 3 sets of troponins were done and it peaked at 0.037, total CKs and CK-MBs were negative. Patient had evidence of hyperkalemia on admission, with potassium of 6.1, BUN of 73, and creatinine of 2.26. Currently her renal profile is slightly worse with BUN of 88 and creatinine of 2.49. Patient does have an underlying chronic kidney disease, stage IIIB with a previous baseline creatinine about 1.8-2 secondary to nephrosclerosis and cardiorenal syndrome, cardiomyopathy, systolic heart failure which ejection fraction of 25%. Hyperkalemia is currently resolved, nephrology is following, patient's angiotensin receptor blockers are on hold. Chest x-ray on admission on 2017 showed small nodular density in the left lung base, follow-up was recommended in 3 months. Patient is a lifetime nonsmoker. She states she used to see an asthma and medical imaging specialist in the past, and receive ALLERGY injections. Also has obstructive sleep apnea, has a BiPAP unit with pressures of 12/8 cm of water, the patient is compliant with. During our evaluation patient still has a congested cough, lung sounds are positive for scattered wheezes. But overall she reports improvement in terms of her dyspnea and coughing. She did receive IV Solu-Medrol, Symbicort, and nebulized treatments during this admission, and she responded to treatments well. The patient is seen again today 10/14/2017 in follow-up on the selective care unit. She is awake and alert in no acute distress. He is breathing easier today as compared to yesterday. She is maintaining O2 saturations in the upper 90s on room air. She's been afebrile. No tachycardia. No tachypnea. No leukocytosis. Hemoglobin 8.9. Creatinine 2.35. Objective - Vital Signs Vital signs: Vital Signs Temp 97.2 F L 10/14/17 08:00 Pulse 80 10/14/17 10:53 Resp 16 10/14/17 08:00 BP 125/61 10/14/17 08:00 Pulse Ox 98 10/14/17 08:00 Intake & Output 10/13/17 10/14/17 10/14/17 18:59 06:59 18:59 Intake Total 540 480 180 Output Total 250 Balance 540 230 180 Weight 99 kg 91.9 kg Intake: Oral 540 480 180 Output: Urine 250 Other: Voiding Method Toilet Toilet # Voids 2 1 - Exam GENERAL EXAM: Alert, active, comfortable in no apparent distress. HEAD: Normocephalic. EYES: Normal reaction of pupils, equal size. NOSE: Clear with pink turbinates. THROAT: No erythema or exudates. NECK: No masses, no JVD. CHEST: No chest wall deformity. LUNGS: Equal air entry with faint end expiratory wheeze.. CVS: S1 and S2 normal with no audible murmur, regular rhythm. ABDOMEN: No hepatosplenomegaly, normal bowel sounds, no guarding or rigidity. SPINE: No scoliosis or deformity SKIN: No rashes CENTRAL NERVOUS SYSTEM: No focal deficits, tone is normal in all 4 extremities. EXTREMITIES: There is no peripheral edema. No clubbing, no cyanosis. Peripheral pulses are intact. - Labs CBC & Chem 7: 10/14/17 06:41 10/14/17 06:41 Labs: Abnormal Lab Results - Last 24 Hours (Table) 10/13/17 10/13/17 10/13/17 Range/Units 11:31 17:00 20:44 RBC (3.80-5.40) m/uL Hgb (11.4-16.0) gm/dL Hct (34.0-46.0) % MCV (80.0-100.0) fL MCHC (31.0-37.0) g/dL Lymphocytes # (1.0-4.8) k/uL Carbon Dioxide (22-30) mmol/L BUN (7-17) mg/dL Creatinine (0.52-1.04) mg/dL Glucose (74-99) mg/dL POC Glucose (mg/dL) 164 H 232 H 224 H (75-99) mg/dL 10/14/17 10/14/17 10/14/17 Range/Units 06:05 06:41 06:41 RBC 2.86 L (3.80-5.40) m/uL Hgb 8.9 L (11.4-16.0) gm/dL Hct 28.8 L (34.0-46.0) % MCV 100.9 H (80.0-100.0) fL MCHC 30.8 L (31.0-37.0) g/dL Lymphocytes # 0.9 L (1.0-4.8) k/uL Carbon Dioxide 21 L (22-30) mmol/L BUN 84 H* (7-17) mg/dL Creatinine 2.35 H (0.52-1.04) mg/dL Glucose 148 H (74-99) mg/dL POC Glucose (mg/dL) 169 H (75-99) mg/dL Assessment and Plan Assessment: Impression: #1 Acute exacerbation of her suspected severe persistent chronic bronchial asthma. #2 Acute on chronic diastolic congestive heart failure with a preserved left ventricular systolic function and EF of 55-60%. #3 Acute on chronic renal failure secondary to acute tubular necrosis. His story of diabetic nephropathy. Current creatinine 2.35. #4 Obstructive sleep apnea utilizing BiPAP in the outpatient setting 12/8 cm of water. #5 Diabetes mellitus. #6 Hypertension. #7 Hyperlipidemia. #8 Atrial fibrillation anticoagulated with Eliquis. #9 Sick sinus syndrome status post permanent pacemaker implantation. #10 Hypothyroidism. Plan: The patient was seen and evaluated by Dr. Lux. She is cleared for discharge from the pulmonary standpoint. She would benefit from a workup in our office within 1-2 weeks' time including full pulmonary function testing to evaluate the severity of her moderate persistent asthma and make recommendations regarding maintenance medications. In the interim she'll remain on her Symbicort and albuterol. Please her prednisone taper. Complete her course of empiric antibiotics. She remains anticoagulated with Eliquis. She is encouraged to call sooner with any recurrence of symptoms or other questions or concerns. I, the cosigning physician, performed a history & physical examination of the patient. Lungs sounds have faint bilateral end expiratory wheeze. Diminished. Maintaining good O2 saturations in the 90s on room air. I discussed the assessment and plan of care with my nurse practitioner, Merline Devries. I attest to the above note as dictated by her.
[2017-10-14] MEDS: MULTIVITAMINS, THERA 1 EACH TAB PO SCH (11:28)
[2017-10-14 11:36] LABS: Glucose,Whole Blood 134 mg/dL (75-99)
[2017-10-14 11:38] VITALS: BP 145/67
[2017-10-14] MEDS ORDERED: CALCITRIOL 0.25 MCG CAP PO SCH (12:00)
[2017-10-14 12:02] VITALS: PULSE 84
--- NOTE | 2017-10-14 14:49 | P.PN ---
Subjective Progress Note Date: 10/14/17 Principal diagnosis: CHF Mrs. Lopez is seen and examined today in no acute distress. Past medical history significant for ischemic cardiomyopathy, biventriulcar pacemaker, paroxysmal atrial fibrillation on jail anticoagulation with Eliquis, hypertension, dyslipidemia, diabetes mellitus and chronic renal failure. She presented to the hospital with shortness of breath and is being treated for bronchitis with inhaler and steroids. IV lasix was changes to oral , patient's breathing is much more stable today overall. A repeat echocardiogram with Doppler study was performed which revealed a normal left ventricular systolic function. BUN 88, creatinine 2.4. O2 2017 Patient seen and examined this morning, breathing is stable. Hemodynamically stable. Arrangements being made for discharge home today. Objective - Vital Signs Vital signs: Vital Signs Temp 97.2 F L 10/14/17 08:00 Pulse 91 10/14/17 11:37 Resp 16 10/14/17 11:37 BP 145/67 10/14/17 11:37 Pulse Ox 91 L 10/14/17 11:37 Intake & Output 10/13/17 10/14/17 10/14/17 18:59 06:59 18:59 Intake Total 540 480 180 Output Total 250 Balance 540 230 180 Weight 99 kg 91.9 kg Intake: Oral 540 480 180 Output: Urine 250 Other: Voiding Method Toilet Toilet # Voids 2 1 1 - Exam PHYSICAL EXAMINATION: HEENT: Head is atraumatic, normocephalic. Pupils equal, round. Neck is supple. There is no elevated jugular venous pressure. HEART EXAMINATION: Heart S1, S2 normal. No murmur or gallop heard. CHEST EXAMINATION: Lungs clear with mild expiratory wheezing throughout. ABDOMEN: Soft, nontender. Bowel sounds are heard. No organomegaly noted. EXTREMITIES: 2+ peripheral pulses with no evidence of peripheral edema and no calf tenderness noted. NEUROLOGIC patient is awake, alert and oriented -3. . - Labs CBC & Chem 7: 10/14/17 06:41 10/14/17 06:41 Labs: Abnormal Lab Results - Last 24 Hours (Table) 10/13/17 10/13/17 10/14/17 Range/Units 17:00 20:44 06:05 RBC (3.80-5.40) m/uL Hgb (11.4-16.0) gm/dL Hct (34.0-46.0) % MCV (80.0-100.0) fL MCHC (31.0-37.0) g/dL Lymphocytes # (1.0-4.8) k/uL Carbon Dioxide (22-30) mmol/L BUN (7-17) mg/dL Creatinine (0.52-1.04) mg/dL Glucose (74-99) mg/dL POC Glucose (mg/dL) 232 H 224 H 169 H (75-99) mg/dL 10/14/17 10/14/17 10/14/17 Range/Units 06:41 06:41 11:34 RBC 2.86 L (3.80-5.40) m/uL Hgb 8.9 L (11.4-16.0) gm/dL Hct 28.8 L (34.0-46.0) % MCV 100.9 H (80.0-100.0) fL MCHC 30.8 L (31.0-37.0) g/dL Lymphocytes # 0.9 L (1.0-4.8) k/uL Carbon Dioxide 21 L (22-30) mmol/L BUN 84 H* (7-17) mg/dL Creatinine 2.35 H (0.52-1.04) mg/dL Glucose 148 H (74-99) mg/dL POC Glucose (mg/dL) 134 H (75-99) mg/dL Microbiology - Last 24 Hours (Table) 10/13/17 23:30 Urine Culture - Preliminary Urine,Clean Catch Assessment and Plan Plan: Assessment and plan #1 acute asthmatic bronchitis #2 diastolic congestive heart failure acute on chronic #3 chronic kidney disease, stage III #4 ischemic cardio myopathy #5 paroxysmal atrial fibrillation #6 diabetes #7 hypertension #8 hyperlipidemia Repeat echocardiogram with Doppler study was performed which revealed a normal left ventricular systolic function. From cardiology's perspective, we'll continue current medications, she may be able to be discharged once cleared by primary. DNP note has been reviewed, I agree with a documented findings and plan of care. Patient was seen and examined.
--- NOTE | 2017-10-14 19:04 | PN ---
PROGRESS NOTE Patient is seen for followup for acute kidney injury. Renal function has been staying fairly stable. Creatinine did decrease from 2.7-2.3 mg/dL. The patient is admitted to the hospital with shortness of breath. She did receive IV Lasix on initial admission. Currently maintained on oral Lasix. The patient is actually being discharged. She was evaluated by Pulmonary and has underlying asthma and will follow up as outpatient. Chest x-ray did not show any significant vascular congestion. PHYSICAL EXAMINATION: Blood pressure 145/67, heart rate 91 per minute. Patient is afebrile. HEART: S1 and S2. LUNGS: Bilateral breath sounds are heard. Abdomen is soft, nontender. Lower extremities show edema 1+ bilaterally. LABS: Show sodium 141, potassium 4.2, chloride 106, BUN 84, serum creatinine 2.35. Hemoglobin 8.9 g/dL. ASSESSMENT: 1. Acute kidney injury and chronic kidney disease, nonoliguric, currently improved. Patient's blood pressure had been slightly on the lower side. She did receive IV Lasix initially which is now switched over to oral and the patient has been fairly stable. 2. Hypertension, currently off of Cozaar. His blood pressure has been has been staying low. 3. Chronic kidney disease secondary to diabetic nephropathy with baseline creatinine of 1.82 mg/dL. 4. Chronic kidney disease mineral bone disorder maintained on Rocaltrol. 5. Hyperkalemia on initial admission, now resolved. 6. Cardiomyopathy, ejection fraction of about 20%. PLAN: Patient can be discharged home. She may continue with the decreased dose of Cozaar as well as oral Lasix. We will see her back for followup as outpatient in about 1 week's time. MMODL / IJN: [id number] /
--- NOTE | 2017-10-14 20:16 | PN ---
PROGRESS NOTE ATTENDING PHYSICIAN: Dr. Katarzyna Blood. CHIEF COMPLAINT: Re-evaluation. HISTORY OF PRESENT ILLNESS: 81-year-old woman was admitted to the hospital with cough, congestion and some wheezing. The patient is felt to have some respiratory infection. The patient has been treated for the same. She is feeling better. There is no wheezing. She has some rhonchi and her cough is improving and bringing up some sputum. Has mostly mucus. Denies any chest pain. No shortness of breath. No PND or orthopnea. REVIEW OF SYSTEMS: Neuro: Denies any headaches or dizziness. Psych no anxiety or depression. Cardiac: No chest pain, angina or palpitations. Respiratory: Some cough. No hemoptysis. GI no nausea, vomiting, abdominal pain, diarrhea, no melanotic stool. : No symptoms of dysuria or hematuria. Extremities: No pain or edema. Constitutional: No fever or chills. PHYSICAL EXAMINATION: Pleasant female in no distress. Vital signs reveals temperature 97.2, pulse 77, respirations 16, blood pressure 125/61, pulse ox 98% on room air. HEENT: Normocephalic. Neck no JVD. CHEST: Clear to auscultation with occasional rhonchi which cleared with cough. Cardiac: Normal S1, S2 with no gallop. Systolic murmur 2/6 left sternal border. ABDOMEN: Soft. Bowel sounds present. Extremities reveal no edema. Neurological awake, alert, oriented with well-coordinated movements. LABORATORY ASSESSMENT: Was hemoglobin 8.9 with no evidence of bleeding. BUN 84, creatinine 2.35, blood sugar 142. ASSESSMENT: 1. Tracheobronchitis improving. 2. Chronic kidney disease. 3. Hypertension. 4. Diabetes mellitus. 5. Chronic atrial fibrillation. 6. Chronic congestive cardiac failure, compensated with medical therapy. Congestive cardiac failure used to be secondary to systolic and diastolic dysfunction. Now the patient has improved systolic function. PLAN: Continue present medical regimen. Patient's condition discussed with the patient. Prognosis is guarded. The patient will be discharged home today. MMODL / IJN: [id number] /
--- NOTE | 2017-11-02 14:08 | P.DS ---
Providers Date of admission: 10/10/17 16:17 Attending physician: Phil Blood Consults: 10/10/17 16:15 Consult Physician Routine Consulting Provider: Nish Brooks Consult Reason/Comments: chf Do you want consulting provider notified?: Yes 10/12/17 12:20 Consult Physician Routine Consulting Provider: Haris Lux Consult Reason/Comments: increasing shortness of breath Do you want consulting provider notified?: Yes 10/13/17 08:17 Consult Physician Routine Consulting Provider: Sofia Child Consult Reason/Comments: elevated BUN and Creatinine Do you want consulting provider notified?: Yes Primary care physician: Phil Blood Hospital Course: This 81-year-old female was admitted to the hospital with tracheobronchitis wheezing and shortness of breath. She has a history of chronic congestive cardiac failure secondary to systolic and diastolic dysfunction. Recent biventricular pacer has improved her friend her function status. She's had an ejection fraction of 55% noted at this admission. He was a 25% previously. She also has underlying history of chronic kidney disease stage IV. His office significant anxiety relating to her dyspnea. She presents to the hospital in view of this. She was treated on the outpatient with increasing weight on increasing doses of Lasix. It was felt she probably had cardiac asthma on the outpatient evaluation. Posthospitalization patient placed on updrafts and oxygen continued on cardiac medications with no significant adjustment. General condition improved. She was also seen by nephrology for significantly elevated BUN. Medications readjusted. Condition stable at the time of discharge prognosis continues to be remained guarded she will follow up with Dr. Blood in outpatient. She will hospital stay she was seen by Dr. Greenberg was covering for me Final diagnosis to include 1. Acute exacerbation of bronchial asthma 2. Tracheobronchitis 3. Chronic congestive cardiac failure secondary systolic and diastolic dysfunction 4. Acute on chronic renal failure 5. Chronic kidney disease stage IV 6. Chronic atrial fibrillation and pacemaker status 7. Obesity. Plan - Discharge Summary Discharge Rx Participant: Yes New Discharge Prescriptions: New Budesonide-Formot 160-4.5 Mcg [Symbicort 160-4.5 Mcg Inhaler] 2 puff INHALATION RT-BID #1 puff Cefuroxime [Ceftin] 250 mg PO BID #14 tab predniSONE 10 mg PO DIRECTED #20 tab Continue Levothyroxine Sodium [Synthroid] 100 mcg PO DAILY Flecainide [Tambocor] 50 mg PO BID Apixaban [Eliquis] 2.5 mg PO BID Multivitamins, Thera [Multivitamin (formulary)] 1 tab PO DAILY@1200 Simvastatin [Zocor] 20 mg PO HS #90 tab Cholecalciferol [Vitamin D3] 4,000 unit PO DAILY Calcitriol [Rocaltrol] 0.25 mcg PO TU Allopurinol [Zyloprim] 100 mg PO DAILY Acetaminophen [Tylenol Arthritis] 650 mg PO Q8H PRN PRN Reason: Pain Furosemide [Lasix] 20 mg PO DAILY Glimepiride [Amaryl] 1 mg PO AC-BID Spironolactone [Aldactone] 12.5 mg PO Q48H Losartan [Cozaar] 50 mg PO DAILY Atenolol [Tenormin] 50 mg PO BID Pantoprazole [Protonix] 40 mg PO DAILY Discharge Medication List Levothyroxine Sodium [Synthroid] 100 mcg PO DAILY 01/31/14 [History] Apixaban [Eliquis] 2.5 mg PO BID 10/12/16 [History] Flecainide [Tambocor] 50 mg PO BID 10/12/16 [History] Multivitamins, Thera [Multivitamin (formulary)] 1 tab PO DAILY@1200 12/10/16 [ History] Simvastatin [Zocor] 20 mg PO HS #90 tab 12/13/16 [Rx] Allopurinol [Zyloprim] 100 mg PO DAILY 01/18/17 [History] Calcitriol [Rocaltrol] 0.25 mcg PO TU 01/18/17 [History] Cholecalciferol [Vitamin D3] 4,000 unit PO DAILY 01/18/17 [History] Acetaminophen [Tylenol Arthritis] 650 mg PO Q8H PRN 07/11/17 [History] Atenolol [Tenormin] 50 mg PO BID 10/10/17 [History] Furosemide [Lasix] 20 mg PO DAILY 10/10/17 [History] Glimepiride [Amaryl] 1 mg PO AC-BID 10/10/17 [History] Losartan [Cozaar] 50 mg PO DAILY 10/10/17 [History] Pantoprazole [Protonix] 40 mg PO DAILY 10/10/17 [History] Spironolactone [Aldactone] 12.5 mg PO Q48H 10/10/17 [History] Budesonide-Formot 160-4.5 Mcg [Symbicort 160-4.5 Mcg Inhaler] 2 puff INHALATION RT-BID #1 puff 10/14/17 [Rx] Cefuroxime [Ceftin] 250 mg PO BID #14 tab 10/14/17 [Rx] predniSONE 10 mg PO DIRECTED #20 tab 10/14/17 [Rx] Follow up Appointment(s)/Referral(s): Phil Blood MD [Primary Care Provider] - 1-2 days (Office is closed. Please call to make appointment) Sofia Child MD [STAFF PHYSICIAN] - 1 Week Haris Lux DO [Doctor of Osteopathic Medicine] - 1 Week (Office is closed. Please call to make appointment) [facility], [NON-STAFF] - Patient Instructions/Handouts: Heart Failure (DC), Urinary Tract Infection in Women (DC) Discharge Disposition: HOME SELF-CARE
== END 2017-10-14 13:15 | disposition home or self-care (01) | DRG 871 ==
LOC: EC 13:45 → 6SEL 16:17
PROVIDERS: ADMIT Internal Medicine; ATTEND Internal Medicine
DX: A41.9 Sepsis, unspecified organism (principal); I50.43 Acute on chronic combined systolic (congestive) and diastolic (congestive) heart failure; N17.0 Acute kidney failure with tubular necrosis; E11.21 Type 2 diabetes mellitus with diabetic nephropathy; I48.0 Paroxysmal atrial fibrillation; E11.22 Type 2 diabetes mellitus with diabetic chronic kidney disease; I48.1 Persistent atrial fibrillation; I13.0 Hypertensive heart and chronic kidney disease with heart failure and stage 1 through stage 4 chronic kidney disease, or unspecified chronic kidney disease; I42.0 Dilated cardiomyopathy; J45.901 Unspecified asthma with (acute) exacerbation; N18.4 Chronic kidney disease, stage 4 (severe); N39.0 Urinary tract infection, site not specified; E87.5 Hyperkalemia; E03.9 Hypothyroidism, unspecified; E78.5 Hyperlipidemia, unspecified; G47.33 Obstructive sleep apnea (adult) (pediatric); I07.1 Rheumatic tricuspid insufficiency; I25.2 Old myocardial infarction; I25.5 Ischemic cardiomyopathy; I27.20 Pulmonary hypertension, unspecified; I48.2 Chronic atrial fibrillation; I87.2 Venous insufficiency (chronic) (peripheral); J20.9 Acute bronchitis, unspecified; K21.9 Gastro-esophageal reflux disease without esophagitis; M89.9 Disorder of bone, unspecified; T38.0X5A Adverse effect of glucocorticoids and synthetic analogues, initial encounter; Z79.01 Long term (current) use of anticoagulants; Z79.51 Long term (current) use of inhaled steroids; Z79.84 Long term (current) use of oral hypoglycemic drugs; Z79.899 Other long term (current) drug therapy; Z82.49 Family history of ischemic heart disease and other diseases of the circulatory system; Z90.710 Acquired absence of both cervix and uterus; Z95.0 Presence of cardiac pacemaker; Z88.0 Allergy status to penicillin; Z88.2 Allergy status to sulfonamides; Z79.890 Hormone replacement therapy
CPT/HCPCS: 36415; 71046; 80048; 80053; 81001; 81003; 82550; 82553; 83036; 83735; 83880; 83970; 84484; 85025; 85610; 85730; 87086; 93005; 93306; 94640; 94760; 96374; 96375; 99285

== ENCOUNTER → 2017-11-25 | Outpatient (CLI) | payer MEDICARE ==
[2017-11-25 17:31] LABS: Appearance,Urine Clear (Clear); Bacteria,Urine Rare /hpf; Bilirubin,Urine Negative (Negative); Blood,Urine Negative (Negative); Calcium 9.1 mg/dL (8.4-10.2); Color,Urine Colorless; Glucose,Urine (UA) Negative (Negative); Ketones,Urine Negative (Negative); Leukocyte Esterase,Urine Small (Negative); Nitrite,Urine Negative (Negative); Phosphorus 5.3 mg/dL (2.5-4.5); Potassium 5.2 mmol/L (3.5-5.1); Protein,Urine Negative (Negative); RBC,Urine <1 /hpf (0-5); Specific Gravity,Urine 1.006 (1.001-1.035); Squamous Epithelial Cell,Urine 1 /hpf (0-4); Urobilinogen,Urine <2.0 mg/dL (<2.0); WBC,Urine 6 /hpf (0-5)
[2017-11-25 17:32] LABS: Basophils % (A) 0 %; Eosinophils # (A) 0.1 k/uL (0-0.7); Eosinophils % (A) 2 %; HCT 31.7 % (34.0-46.0); HGB 10.2 gm/dL (11.4-16.0); Lymphocytes # (A) 1.2 k/uL (1.0-4.8); Lymphocytes % (A) 23 %; MCV 96.8 fL (80.0-100.0); Mean Platelet Volume 8.2; Monocytes # (A) 0.5 k/uL (0-1.0); Monocytes % (A) 9 %; Neutrophils # (A) 3.3 k/uL (1.3-7.7); Neutrophils % (A) 62 %; Platelet Count 165 k/uL (150-450); RBC 3.27 m/uL (3.80-5.40); RDW 14.4 % (11.5-15.5); WBC 5.4 k/uL (3.8-10.6)
[2017-11-26 01:25] LABS: Iron Saturation 35.23 (12.00-45.00)
[2017-11-26 01:34] LABS: Vitamin D 25 Hydroxy 27.3 ng/mL (30.0-100.0)
[2017-11-26 01:42] LABS: Parathyroid Hormone Intact 203.9 pg/mL (14.0-72.0)
== END | disposition home or self-care (01) ==
LOC: LABWHC1 16:49
PROVIDERS: ATTEND Internal Medicine Nephrology
DX: N18.3 Chronic kidney disease, stage 3 (moderate) (principal); D50.9 Iron deficiency anemia, unspecified; E55.9 Vitamin D deficiency, unspecified; N25.81 Secondary hyperparathyroidism of renal origin; M10.9 Gout, unspecified; N39.0 Urinary tract infection, site not specified
CPT/HCPCS: 36415; 80048; 81001; 82306; 82728; 83540; 83550; 83735; 83970; 84100; 84550; 85025

== ENCOUNTER → 2018-02-05 | Outpatient (CLI) | payer MEDICARE ==
--- NOTE | 2018-02-05 16:14 | SFUN ---
SLEEP CENTER FOLLOW UP NOTE DATE OF SERVICE: 02/05/2018. 82-year-old lady has been followed in Sleep Center for treatment of obstructive sleep apnea-hypopnea syndrome. The patient continued to use her BiPAP equipment every night for the whole night without any problems related to mask fitting, pressure, or humidification. During the last year, she received new permanent pacemaker. Presently, she sleeps well with the machine. [place] Sleepiness Scale is 13. I checked her BiPAP unit pressure is 12/8 cm of water. Leak is 10 L/minute, which is normal range. Usage is 100% of the time more than 4 hours. Average usage is 7.7 hours. Apnea-hypopnea index only 1.2 per hour which is absolutely perfect. MEDICATIONS: Allopurinol, , Calcitriol, ferrous sulfate, Tambocor, Lasix, Amaryl, losartan, magnesium supplement, Protonix, Zocor, . PHYSICAL EXAM: GENERAL Patient in no distress. VITAL SIGNS BP 148/70, HR 70, RR 16, height 5 foot 3, weight 213, which is 2 pounds less than during previous visit, BMI 37.7, temperature 97.1. Oxygen saturation room air 97%. HEENT PERRLA, EOMI, evaluation of oropharynx showed extremely low position of soft palate. NECK Supple, no JVD. Thyroid is not palpable. LUNGS Clear to percussion and to auscultation. Good air exchange. No wheezing or rhonchi. HEART S1, S2 regular. No murmurs, gallops, or rubs. ABDOMEN Soft and nontender. Bowel sounds are present. No organomegaly appreciated. EXTREMITIES 1 to 2+ bilateral ankle edema. HOME HEALTH AID Awake, alert, and oriented X3. Cranial nerves 2 to 7 intact. There is no fasciculation or atrophy. noted. No focal deficits observed. IMPRESSION: 1. Obstructive sleep apnea-hypopnea syndrome. Patient demonstrated 100% compliance with treatment. Respiration is normal on treatment with CPAP. No significant leak from the mask. 2. Obesity. 3. Diabetes mellitus. 4. Hypertension. 5. History of cardiac arrhythmias, status post permanent pacemaker insertion. 6. Congestive heart failure. 7. Hypothyroidism. 8. Acid reflux. 9. Gout. 10.Hyperlipidemia. PLAN: 1. Patient will continue treatment with BiPAP every night for the whole night. 2. Watching and losing weight. 3. Sleep hygiene with regular time bed for at least 8 hours. 4. No driving if feeling any sleepiness. 5. Prescription for all necessary BiPAP supplies including mask, tube, filters. 6. Followup visit in 1 year or earlier if the patient has any problems. Thank you very much for allowing me to participate in management of your patient. Sincerely, Celio Islas MD, PhD, FAASM Diplomat of [employer] [employer] [employer] Psychologist [facility] MMODL / IJN: [id number] /
== END | disposition home or self-care (01) ==
LOC: SLEEP 13:51
PROVIDERS: ATTEND Internal Medicine
DX: G47.33 Obstructive sleep apnea (adult) (pediatric) (principal); E66.9 Obesity, unspecified; E11.9 Type 2 diabetes mellitus without complications; M10.9 Gout, unspecified; E78.5 Hyperlipidemia, unspecified; K21.9 Gastro-esophageal reflux disease without esophagitis; I11.0 Hypertensive heart disease with heart failure; I50.9 Heart failure, unspecified; Z79.899 Other long term (current) drug therapy; Z79.84 Long term (current) use of oral hypoglycemic drugs; Z79.891 Long term (current) use of opiate analgesic; Z86.79 Personal history of other diseases of the circulatory system; Z95.0 Presence of cardiac pacemaker; Z68.37 Body mass index [BMI] 37.0-37.9, adult

== ENCOUNTER 2018-02-19 21:01 | Inpatient (IN) | payer MEDICARE ==
[2018-02-19 21:53] LABS: Appearance,Urine Cloudy (Clear); Bilirubin,Urine Negative (Negative); Blood,Urine Trace (Negative); Color,Urine Yellow; Glucose,Urine (UA) Negative (Negative); Ketones,Urine Negative (Negative); Leukocyte Esterase,Urine Large (Negative); Mucus,Urine Rare /hpf; Nitrite,Urine Negative (Negative); PH, Urine 5.5 (5.0-8.0); Protein,Urine Trace (Negative); Specific Gravity,Urine 1.012 (1.001-1.035); Squamous Epithelial Cell,Urine 2 /hpf (0-4); Urobilinogen,Urine <2.0 mg/dL (<2.0); WBC,Urine >182 /hpf (0-5)
[2018-02-19 22:25] LABS: Basophils % (A) 0 %; Eosinophils # (A) 0.1 k/uL (0-0.7); Eosinophils % (A) 1 %; HCT 33.3 % (34.0-46.0); HGB 11.1 gm/dL (11.4-16.0); Lymphocytes # (A) 0.3 k/uL (1.0-4.8); Lymphocytes % (A) 3 %; MCH 32.1 pg (25.0-35.0); MCHC 33.4 g/dL (31.0-37.0); MCV 96.2 fL (80.0-100.0); Monocytes # (A) 0.3 k/uL (0-1.0); Monocytes % (A) 3 %; Neutrophils # (A) 8.6 k/uL (1.3-7.7); Neutrophils % (A) 93 %; Platelet Count 158 k/uL (150-450); RBC 3.46 m/uL (3.80-5.40); RDW 13.5 % (11.5-15.5); WBC 9.2 k/uL (3.8-10.6)
[2018-02-19 22:36] LABS: Albumin 3.8 g/dL (3.5-5.0); Magnesium 1.5 mg/dL (1.6-2.3); Phosphorus 4.4 mg/dL (2.5-4.5); Potassium 4.6 mmol/L (3.5-5.1); Total Bilirubin 0.3 mg/dL (0.2-1.3); Total Protein 6.2 g/dL (6.3-8.2)
--- NOTE | 2018-02-19 22:44 | XR ---
EXAMINATION TYPE: XR chest 2V DATE OF EXAM: 02/19/2018 COMPARISON: October 10, 2017 HISTORY: Weakness TECHNIQUE: Frontal and lateral views of the chest are obtained. FINDINGS: There is no heart failure nor confluent pneumonic infiltrate. Costophrenic angles are fran r. There is left axillary pacemaker with the lead tips in the right ventricle. There is no pleural ef fusion. There is slight blunting of the lateral left costophrenic angle. IMPRESSION: There is some mild pleural reaction or scarring at the lateral left lung base that is in creased compared to old exam. No heart failure.
[2018-02-19 22:57] LABS: Creatine Kinase MB 1.5 ng/mL (0.0-2.4); Troponin I 0.017 ng/mL (0.000-0.034)
[2018-02-19] MEDS ORDERED: MEROPENEM 2 GM in SODIUM CHLORIDE 0.9% 100 ML IVPB STA (23:26)
[2018-02-19] MEDS ORDERED: SODIUM CHLORIDE 0.9% 1,000 ML IV ONE (23:26)
--- NOTE | 2018-02-19 23:26 | ED ---
General Adult HPI - General Chief complaint: Recheck/Abnormal Lab/Rx Stated complaint: bacteria in urine Time Seen by Provider: 02/19/18 21:28 Source: patient, RN notes reviewed, old records reviewed Mode of arrival: ambulatory Limitations: no limitations - History of Present Illness Initial comments: This is an 82-year-old female to the ER for evaluation. She presents today for evaluation. Abnormal lab tests, mild abdominal pain burning with urination and shortness of breath on exertion. Patient does have a cavity lung medical history significant for kidney disease heart disease and chronic urinary tract infections. She denies fever no nausea no vomiting. No recent travel history no sick contacts. Patient states she had lab test on Friday was told they are abnormal and was told to come to the emergency room - Related Data Home Medications Medication Instructions Recorded Confirmed Levothyroxine Sodium [Synthroid] 100 mcg PO DAILY 01/31/14 02/19/18 Apixaban [Eliquis] 2.5 mg PO BID 10/12/16 02/19/18 Flecainide [Tambocor] 50 mg PO BID 10/12/16 02/19/18 Multivitamins, Thera [Multivitamin 1 tab PO DAILY@1200 12/10/16 02/19/18 (formulary)] Allopurinol [Zyloprim] 100 mg PO DAILY 01/18/17 02/19/18 Calcitriol [Rocaltrol] 0.25 mcg PO MOWEFR 01/18/17 02/19/18 Cholecalciferol [Vitamin D3] 4,000 unit PO DAILY 01/18/17 02/19/18 Acetaminophen [Tylenol Arthritis] 650 mg PO Q8H PRN 07/11/17 02/19/18 Atenolol [Tenormin] 50 mg PO BID 10/10/17 02/19/18 Furosemide [Lasix] 20 mg PO DAILY 10/10/17 02/19/18 Glimepiride [Amaryl] 1 mg PO AC-BID 10/10/17 02/19/18 Losartan [Cozaar] 25 mg PO DAILY 10/10/17 02/19/18 Pantoprazole [Protonix] 40 mg PO DAILY 10/10/17 02/19/18 Spironolactone [Aldactone] 12.5 mg PO Q48H 10/10/17 02/19/18 Previous Rx's Medication Instructions Recorded Simvastatin [Zocor] 20 mg PO HS #90 tab 12/13/16 Allergies Allergy/AdvReac Type Severity Reaction Status Date / Time meperidine HCl [From Demerol] Allergy Nausea & Verified 02/19/18 22:24 Vomiting Penicillins Allergy Rash/Hives Verified 02/19/18 22:24 Sulfa (Sulfonamide Allergy Rash/Hives Verified 02/19/18 22:24 Antibiotics) Review of Systems ROS Statement: Those systems with pertinent positive or pertinent negative responses have been documented in the HPI. ROS Other: All systems not noted in ROS Statement are negative. Past Medical History Past Medical History: Atrial Fibrillation, Heart Failure, Diabetes Mellitus, GERD/Reflux, Hyperlipidemia, Hypertension, Myocardial Infarction ([place]), Sleep Apnea/CPAP/BIPAP, Thyroid Disorder Additional Past Medical History / Comment(s): uti's,PALPITATIONS, patient states kidney function tests are not normal and see saw Dr Child about it. Uses CPAP machine. Sick Sinus Syndrome with pacemaker, chronic afib Last Myocardial Infarction Date:: 32 years ago History of Any Multi-Drug Resistant Organisms: ESBL Date of last positivie culture/infection: 07/11/17 MDRO Source:: URINE Past Surgical History: Hysterectomy, Pacemaker Additional Past Surgical History / Comment(s): hemmorrhoidectomy/rectocele/ cystocele, cataracts,. vein stripping Past Anesthesia/Blood Transfusion Reactions: No Reported Reaction Type of Cardiac Device: Permanent Pacemaker Device Placement Date:: 01/2017 Past Psychological History: No Psychological Hx Reported Smoking Status: Never smoker Past Alcohol Use History: None Reported Past Drug Use History: None Reported - Past Family History Father Family Medical History: Coronary Artery Disease (CAD), Hyperlipidemia, Hypertension, Myocardial Infarction ([place]) Mother Family Medical History: Unable to Obtain Sister(s) Family Medical History: Cancer General Exam - General Exam Comments Initial Comments: Bilateral lower extremity edema Limitations: no limitations General appearance: alert, in no apparent distress Head exam: Present: atraumatic, normocephalic, normal inspection Eye exam: Present: normal appearance, PERRL, EOMI. Absent: scleral icterus, conjunctival injection, periorbital swelling ENT exam: Present: normal exam, mucous membranes moist Neck exam: Present: normal inspection. Absent: tenderness, meningismus, lymphadenopathy Respiratory exam: Present: normal lung sounds bilaterally. Absent: respiratory distress, wheezes, rales, rhonchi, stridor Cardiovascular Exam: Present: regular rate, normal rhythm, normal heart sounds. Absent: systolic murmur, diastolic murmur, rubs, gallop, clicks GI/Abdominal exam: Present: soft, normal bowel sounds. Absent: distended, tenderness, guarding, rebound, rigid Extremities exam: Present: normal inspection, full ROM, normal capillary refill. Absent: tenderness, pedal edema, joint swelling, calf tenderness Back exam: Present: normal inspection Neurological exam: Present: alert, oriented X3, CN II-XII intact Psychiatric exam: Present: normal affect, normal mood Skin exam: Present: warm, dry, intact, normal color. Absent: rash Course Vital Signs 02/19/18 02/19/18 21:07 22:42 Temperature 97.9 F Pulse Rate 77 67 Respiratory 18 16 Rate Blood Pressure 153/74 115/56 O2 Sat by Pulse 95 100 Oximetry - Reevaluation(s) Reevaluation #1: 02/19/18 23:25 Medical records thoroughly reviewed Medical Decision Making - Medical Decision Making 82 female the ER for evaluation of abnormal outpatient lab test, positive urinary tract infection, acute renal fracture failure with dehydration, mild diastolic heart failure with lower extremity edema - Lab Data Result diagrams: 02/19/18 22:10 02/19/18 22:10 Lab Results 02/19/18 02/19/18 02/19/18 Range/Units 21:41 22:10 22:10 WBC 9.2 (3.8-10.6) k/uL RBC 3.46 L (3.80-5.40) m/uL Hgb 11.1 L (11.4-16.0) gm/dL Hct 33.3 L (34.0-46.0) % MCV 96.2 (80.0-100.0) fL MCH 32.1 (25.0-35.0) pg MCHC 33.4 (31.0-37.0) g/dL RDW 13.5 (11.5-15.5) % Plt Count 158 (150-450) k/uL Neutrophils % 93 % Lymphocytes % 3 % Monocytes % 3 % Eosinophils % 1 % Basophils % 0 % Neutrophils # 8.6 H (1.3-7.7) k/uL Lymphocytes # 0.3 L (1.0-4.8) k/uL Monocytes # 0.3 (0-1.0) k/uL Eosinophils # 0.1 (0-0.7) k/uL Basophils # 0.0 (0-0.2) k/uL Sodium (137-145) mmol/L Potassium (3.5-5.1) mmol/L Chloride (98-107) mmol/L Carbon Dioxide (22-30) mmol/L Anion Gap mmol/L BUN (7-17) mg/dL Creatinine (0.52-1.04) mg/dL Est GFR (CKD-EPI)AfAm (>60 ml/min/1.73 sqM) Est GFR (CKD-EPI)NonAf (>60 ml/min/1.73 sqM) Glucose (74-99) mg/dL Calcium (8.4-10.2) mg/dL Phosphorus (2.5-4.5) mg/dL Magnesium (1.6-2.3) mg/dL Total Bilirubin (0.2-1.3) mg/dL AST (14-36) U/L ALT (9-52) U/L Alkaline Phosphatase (38-126) U/L Total Creatine Kinase 39 (30-135) U/L CK-MB (CK-2) 1.5 (0.0-2.4) ng/mL CK-MB (CK-2) Rel Index 3.8 Troponin I 0.017 (0.000-0.034) ng/mL Total Protein (6.3-8.2) g/dL Albumin (3.5-5.0) g/dL Urine Color Yellow Urine Appearance Cloudy H (Clear) Urine pH 5.5 (5.0-8.0) Ur Specific [place] 1.012 (1.001-1.035) Urine Protein Trace H (Negative) Urine Glucose (UA) Negative (Negative) Urine Ketones Negative (Negative) Urine Blood Trace H (Negative) Urine Nitrite Negative (Negative) Urine Bilirubin Negative (Negative) Urine Urobilinogen <2.0 (<2.0) mg/dL Ur Leukocyte Esterase Large H (Negative) Urine WBC >182 H (0-5) /hpf Urine WBC Clumps Many H (None) /hpf Ur Squamous Epith Cells 2 (0-4) /hpf Urine Mucus Rare H (None) /hpf 02/19/18 Range/Units 22:10 WBC (3.8-10.6) k/uL RBC (3.80-5.40) m/uL Hgb (11.4-16.0) gm/dL Hct (34.0-46.0) % MCV (80.0-100.0) fL MCH (25.0-35.0) pg MCHC (31.0-37.0) g/dL RDW (11.5-15.5) % Plt Count (150-450) k/uL Neutrophils % % Lymphocytes % % Monocytes % % Eosinophils % % Basophils % % Neutrophils # (1.3-7.7) k/uL Lymphocytes # (1.0-4.8) k/uL Monocytes # (0-1.0) k/uL Eosinophils # (0-0.7) k/uL Basophils # (0-0.2) k/uL Sodium 136 L (137-145) mmol/L Potassium 4.6 (3.5-5.1) mmol/L Chloride 103 (98-107) mmol/L Carbon Dioxide 19 L (22-30) mmol/L Anion Gap 14 mmol/L BUN 84 H* (7-17) mg/dL Creatinine 2.57 H (0.52-1.04) mg/dL Est GFR (CKD-EPI)AfAm 19 (>60 ml/min/1.73 sqM) Est GFR (CKD-EPI)NonAf 17 (>60 ml/min/1.73 sqM) Glucose 150 H (74-99) mg/dL Calcium 9.0 (8.4-10.2) mg/dL Phosphorus 4.4 (2.5-4.5) mg/dL Magnesium 1.5 L (1.6-2.3) mg/dL Total Bilirubin 0.3 (0.2-1.3) mg/dL AST 19 (14-36) U/L ALT 29 (9-52) U/L Alkaline Phosphatase 97 (38-126) U/L Total Creatine Kinase (30-135) U/L CK-MB (CK-2) (0.0-2.4) ng/mL CK-MB (CK-2) Rel Index Troponin I (0.000-0.034) ng/mL Total Protein 6.2 L (6.3-8.2) g/dL Albumin 3.8 (3.5-5.0) g/dL Urine Color Urine Appearance (Clear) Urine pH (5.0-8.0) Ur Specific [place] (1.001-1.035) Urine Protein (Negative) Urine Glucose (UA) (Negative) Urine Ketones (Negative) Urine Blood (Negative) Urine Nitrite (Negative) Urine Bilirubin (Negative) Urine Urobilinogen (<2.0) mg/dL Ur Leukocyte Esterase (Negative) Urine WBC (0-5) /hpf Urine WBC Clumps (None) /hpf Ur Squamous Epith Cells (0-4) /hpf Urine Mucus (None) /hpf - Radiology Data Radiology results: report reviewed (Chest x-ray is negative for Acute disease), image reviewed Disposition Clinical Impression: Diastolic CHF, acute on chronic, Acute renal failure (ARF), Urinary tract infection Disposition: ADMITTED IP TO THIS [facility] Condition: Good Is patient prescribed a controlled substance at d/c from ED?: No Referrals: Phil Blood MD [Primary Care Provider] - 1-2 days
[2018-02-20] MEDS ORDERED: ACETAMINOPHEN TAB 325 MG TAB PO PRN (07:41)
[2018-02-20] MEDS ORDERED: LOSARTAN 25 MG TAB PO SCH (09:00)
[2018-02-20] MEDS ORDERED: CALCITRIOL 0.25 MCG CAP PO SCH (09:00)
[2018-02-20] MEDS: MEROPENEM 1 GM in SODIUM CHLORIDE 0.9% 100 ML IVPB SCH ×2 (10:17→20:42)
[2018-02-20] MEDS: SPIRONOLACTONE 25 MG TAB PO SCH (10:17)
[2018-02-20] MEDS: ALLOPURINOL 100 MG TAB PO SCH (10:18)
[2018-02-20] MEDS: FLECAINIDE 50 MG TAB PO SCH ×2 (10:19→20:42)
[2018-02-20] MEDS: APIXABAN 2.5 MG TABLET PO SCH ×2 (10:19→20:42)
[2018-02-20] MEDS: ATENOLOL 50 MG TAB PO SCH ×2 (10:19→20:42)
[2018-02-20] MEDS: LEVOTHYROXINE 100 MCG TAB PO SCH (10:20)
[2018-02-20] MEDS: PANTOPRAZOLE 40 MG TABLET PO SCH (10:20)
[2018-02-20 10:24] LABS: Calcium 8.6 mg/dL (8.4-10.2); Potassium 4.7 mmol/L (3.5-5.1)
[2018-02-20] MEDS: CHOLECALCIFEROL 1,000 UNIT TAB PO SCH (12:36)
[2018-02-20] MEDS: MULTIVITAMINS, THERA 1 EACH TAB PO SCH (12:36)
--- NOTE | 2018-02-20 15:59 | P.CONS ---
History of Present Illness - Reason for Consult Consult date: 02/20/18 - Chief Complaint recurrent urinary tract infection - History of Present Illness raoul 82-year-old woman relates that she started to feel very poorly at home, her son-in-law brought her to the hospital for further evaluation. She relates that she had been seen in the outpatient setting because she was having worsening urinary symptoms with frequency going every hour, burning and discomfort some bilateral flank pain and developing some shortness of breath on exertion. At the time of evaluation there is evidence of the urinary infection and with her many medical troubles was brought into hospital for treatment of her underlying infection. With her history of an ESBL E. coli the infectious diseases consultation was requested. Carbapenem antibiotic has been initiated. The patient continues to feel poorly, but at least does not have a high-grade fever or chill. She has significant fatigue and malaise. She's had multiple urinary tract infections she relates to 8 and the last period of time, and her last hospital stay in October she was having difficulties with congestive heart failure. Review of Systems raoul 82-year-old woman feels poorly HEENT:Denies headache or acute visual change. Denies sinus or mouth discomforts. Denies neck stiffness or pain. Denies significant oral cavity pain. Denies difficulty on swallowing. Lungs: Denies significant shortness of breath, cough, sputum production, or hemoptysis. Cardiovascular: Denies significant shortness of breath, chest pain, chest wall pain, orthopnea, dyspnea on exertion, syncope Gastrointestinal:patient had nausea at this is improved no emesis but does have bilateral flank pain and suprapubic pain Musculoskeletal: denies significant myalgias or arthralgias. No new joint swelling. Denies new back pain. Skin: Denies new rash or lesions. No new ulcers or wounds are related.. Neuro: Denies headache or visual change. she's having generalized weakness and difficulty ambulating Psychiatric:Denies anxiety or depression. Endocrine: significant fatigue with her illness weight has been stable Past Medical History Past Medical History: Atrial Fibrillation, Heart Failure, Diabetes Mellitus, GERD/Reflux, Hyperlipidemia, Hypertension, Myocardial Infarction ([place]), Sleep Apnea/CPAP/BIPAP, Thyroid Disorder Additional Past Medical History / Comment(s): uti's,PALPITATIONS, patient states kidney function tests are not normal and see saw Dr Child about it. Uses CPAP machine. Sick Sinus Syndrome with pacemaker, chronic afib Last Myocardial Infarction Date:: 32 years ago History of Any Multi-Drug Resistant Organisms: ESBL Year Discovered:: 07/11/17 MDRO Source:: URINE Past Surgical History: Hysterectomy, Pacemaker Additional Past Surgical History / Comment(s): hemmorrhoidectomy/rectocele/ cystocele, cataracts,. vein stripping Past Anesthesia/Blood Transfusion Reactions: No Reported Reaction Type of Cardiac Device: Permanent Pacemaker Device Placement Date:: 01/2017 Past Psychological History: No Psychological Hx Reported Additional Psychological History / Comment(s): lives in own home has 2 steps into home. recieved cleaning services .no pets. gets meals on wheels. has cpap machine,rolling walker /cane. has life alert necklace. she is an adult daughter and son-in-law who help her with day to day needs including shopping and transporter as needed. If she needs to have outpatient antibiotic therapy it would come and stay with her. Smoking Status: Never smoker Past Alcohol Use History: None Reported Past Drug Use History: None Reported - Past Family History Father Family Medical History: Coronary Artery Disease (CAD), Hyperlipidemia, Hypertension, Myocardial Infarction ([place]) Mother Family Medical History: Unable to Obtain Sister(s) Family Medical History: Cancer Medications and Allergies Home Medications and Allergies Comment(s): Current Medications Acetaminophen (Tylenol Tab) 650 mg PO Q8H PRN PRN Reason: Mild Pain Allopurinol (Zyloprim) 100 mg PO DAILY [facility] Last Admin: 02/20/18 10:18 Dose: 100 mg Apixaban (Eliquis) 2.5 mg PO BID [facility] Last Admin: 02/20/18 10:19 Dose: 2.5 mg Atenolol (Tenormin) 50 mg PO BID [facility] Last Admin: 02/20/18 10:19 Dose: 50 mg Atorvastatin Calcium (Lipitor) 10 mg PO HS [facility] Calcitriol (Rocaltrol) 0.25 mcg PO MoWeFr@0900 [facility] Last Admin: 02/20/18 10:19 Dose: 0.25 mcg Cholecalciferol (Vitamin D3) 4,000 unit PO DAILY@1200 [facility] Last Admin: 02/20/18 12:36 Dose: 4,000 unit Flecainide Acetate (Tambocor) 50 mg PO BID [facility] Last Admin: 02/20/18 10:19 Dose: 50 mg Glimepiride (Amaryl) 1 mg PO AC-BID [facility] Meropenem 1 gm/ Sodium (Chloride) 100 mls @ 200 mls/hr IVPB Q12HR [facility] Last Admin: 02/20/18 10:17 Dose: 200 mls/hr Levothyroxine Sodium (Synthroid) 100 mcg PO DAILY@0630 [facility] Last Admin: 02/20/18 10:20 Dose: 100 mcg Multivitamins (Theragran) 1 each PO DAILY@1200 [facility] Last Admin: 02/20/18 12:36 Dose: 1 each Pantoprazole Sodium (Protonix) 40 mg PO AC-BRKFST [facility] Last Admin: 02/20/18 10:20 Dose: 40 mg Spironolactone (Aldactone) 12.5 mg PO Q48H [facility] Last Admin: 02/20/18 10:17 Dose: 12.5 mg Home Medications Medication Instructions Recorded Confirmed Type Levothyroxine Sodium [Synthroid] 100 mcg PO DAILY 01/31/14 02/19/18 History Apixaban [Eliquis] 2.5 mg PO BID 10/12/16 02/19/18 History Flecainide [Tambocor] 50 mg PO BID 10/12/16 02/19/18 History Multivitamins, Thera [Multivitamin 1 tab PO DAILY@1200 12/10/16 02/19/18 History (formulary)] Simvastatin [Zocor] 20 mg PO HS #90 tab 12/13/16 02/19/18 Rx Allopurinol [Zyloprim] 100 mg PO DAILY 01/18/17 02/19/18 History Calcitriol [Rocaltrol] 0.25 mcg PO MOWEFR 01/18/17 02/19/18 History Cholecalciferol [Vitamin D3] 4,000 unit PO DAILY 01/18/17 02/19/18 History Acetaminophen [Tylenol Arthritis] 650 mg PO Q8H PRN 07/11/17 02/19/18 History Atenolol [Tenormin] 50 mg PO BID 10/10/17 02/19/18 History Furosemide [Lasix] 20 mg PO DAILY 10/10/17 02/19/18 History Glimepiride [Amaryl] 1 mg PO AC-BID 10/10/17 02/19/18 History Losartan [Cozaar] 25 mg PO DAILY 10/10/17 02/19/18 History Pantoprazole [Protonix] 40 mg PO DAILY 10/10/17 02/19/18 History Spironolactone [Aldactone] 12.5 mg PO Q48H 10/10/17 02/19/18 History Allergies Allergy/AdvReac Type Severity Reaction Status Date / Time meperidine HCl [From Demerol] Allergy Nausea & Verified 02/19/18 22:24 Vomiting Penicillins Allergy Rash/Hives Verified 02/19/18 22:24 Sulfa (Sulfonamide Allergy Rash/Hives Verified 02/19/18 22:24 Antibiotics) Physical Exam Vitals: Vital Signs Temp Pulse Pulse Resp BP BP Pulse Ox 02/20/18 15:00 97.2 F L 64 20 141/65 100 02/20/18 08:00 65 16 02/20/18 06:11 97.3 F L 65 16 99/42 94 L 02/20/18 00:46 97.4 F L 79 18 152/68 95 02/20/18 00:12 98.4 F 74 18 144/64 97 02/19/18 22:42 67 16 115/56 100 02/19/18 21:07 97.9 F 77 18 153/74 95 Intake and Output 02/20/18 02/20/18 02/20/18 06:59 14:59 22:59 Intake Total 400 Balance 400 Intake: Oral 400 Other: Voiding Method Toilet Toilet # Voids 2 1 # Bowel Movements 1 Weight 214.7 kg pleasant 82-year-old woman who is not feeling well, complaining of some flank pain and suprapubic pain and urinary frequency of nearly every hour. HEENT: Anicteric conjunctiva are pink and moist nasal mucosa grossly intact without significant lesions, there is no thrush. Neck: The neck is supple without significant lymphadenopathy or thyromegaly. Lungs: Good bilateral air entry without significant crackles or wheezing. There is no significant bronchial sounds. There is no egophony or dullness. Heart: Regular rate and rhythm with an audible S1-S2, no S3 no S4. There is no significant murmur click or rub, PMI was nondisplaced. Abdomen: Positive bowel sounds soft and nontender without palpable masses or organomegaly. There was no guarding or rebound.there is suprapubic tenderness, there is evidence of flank tenderness which is mild and symmetric Extremities: The upper extremities have excellent pulses they are symmetric, no significant petechiae or telangiectasia. No splinter hemorrhages were noted. The lower extremities are free from significant edema. The peripheral pulses were 2+ and symmetric. Neuro: Awake alert oriented to person place and time. There are no acute new gross focal sensory motor deficits. Results CBC & Chem 7: 02/19/18 22:10 02/20/18 09:49 Labs: Abnormal Lab Results - Last 24 Hours (Table) 02/19/18 02/19/18 02/19/18 Range/Units 21:41 22:10 22:10 RBC 3.46 L (3.80-5.40) m/uL Hgb 11.1 L (11.4-16.0) gm/dL Hct 33.3 L (34.0-46.0) % Neutrophils # 8.6 H (1.3-7.7) k/uL Lymphocytes # 0.3 L (1.0-4.8) k/uL Sodium 136 L (137-145) mmol/L Carbon Dioxide 19 L (22-30) mmol/L BUN 84 H* (7-17) mg/dL Creatinine 2.57 H (0.52-1.04) mg/dL Glucose 150 H (74-99) mg/dL Magnesium 1.5 L (1.6-2.3) mg/dL Total Protein 6.2 L (6.3-8.2) g/dL Urine Appearance Cloudy H (Clear) Urine Protein Trace H (Negative) Urine Blood Trace H (Negative) Ur Leukocyte Esterase Large H (Negative) Urine WBC >182 H (0-5) /hpf Urine WBC Clumps Many H (None) /hpf Urine Mucus Rare H (None) /hpf 02/20/18 Range/Units 09:49 RBC (3.80-5.40) m/uL Hgb (11.4-16.0) gm/dL Hct (34.0-46.0) % Neutrophils # (1.3-7.7) k/uL Lymphocytes # (1.0-4.8) k/uL Sodium 136 L (137-145) mmol/L Carbon Dioxide 18 L (22-30) mmol/L BUN 84 H* (7-17) mg/dL Creatinine 2.60 H (0.52-1.04) mg/dL Glucose 142 H (74-99) mg/dL Magnesium (1.6-2.3) mg/dL Total Protein (6.3-8.2) g/dL Urine Appearance (Clear) Urine Protein (Negative) Urine Blood (Negative) Ur Leukocyte Esterase (Negative) Urine WBC (0-5) /hpf Urine WBC Clumps (None) /hpf Urine Mucus (None) /hpf Microbiology - Last 24 Hours (Table) 02/19/18 21:41 Urine Culture - Preliminary Urine,Voided Laboratory Results WBC 9.2 k/uL (3.8-10.6) 02/19/18 22:10 RBC 3.46 m/uL (3.80-5.40) L 02/19/18 22:10 Hgb 11.1 gm/dL (11.4-16.0) L 02/19/18 22:10 Hct 33.3 % (34.0-46.0) L 02/19/18 22:10 MCV 96.2 fL (80.0-100.0) 02/19/18 22:10 MCH 32.1 pg (25.0-35.0) 02/19/18 22:10 MCHC 33.4 g/dL (31.0-37.0) 02/19/18 22:10 RDW 13.5 % (11.5-15.5) 02/19/18 22:10 Plt Count 158 k/uL (150-450) 02/19/18 22:10 Neutrophils % 93 % 02/19/18 22:10 Lymphocytes % 3 % 02/19/18 22:10 Monocytes % 3 % 02/19/18 22:10 Eosinophils % 1 % 02/19/18 22:10 Basophils % 0 % 02/19/18 22:10 Neutrophils # 8.6 k/uL (1.3-7.7) H 02/19/18 22:10 Lymphocytes # 0.3 k/uL (1.0-4.8) L 02/19/18 22:10 Monocytes # 0.3 k/uL (0-1.0) 02/19/18 22:10 Eosinophils # 0.1 k/uL (0-0.7) 02/19/18 22:10 Basophils # 0.0 k/uL (0-0.2) 02/19/18 22:10 Sodium 136 mmol/L (137-145) L 02/20/18 09:49 Potassium 4.7 mmol/L (3.5-5.1) 02/20/18 09:49 Chloride 105 mmol/L (98-107) 02/20/18 09:49 Carbon Dioxide 18 mmol/L (22-30) L 02/20/18 09:49 Anion Gap 13 mmol/L 02/20/18 09:49 BUN 84 mg/dL (7-17) H* 02/20/18 09:49 Creatinine 2.60 mg/dL (0.52-1.04) H 02/20/18 09:49 Est GFR (CKD-EPI)AfAm 19 (>60 ml/min/1.73 sqM) 02/20/18 09:49 Est GFR (CKD-EPI)NonAf 16 (>60 ml/min/1.73 sqM) 02/20/18 09:49 Glucose 142 mg/dL (74-99) H 02/20/18 09:49 Calcium 8.6 mg/dL (8.4-10.2) 02/20/18 09:49 Phosphorus 4.4 mg/dL (2.5-4.5) 02/19/18 22:10 Magnesium 1.5 mg/dL (1.6-2.3) L 02/19/18 22:10 Total Bilirubin 0.3 mg/dL (0.2-1.3) 02/19/18 22:10 AST 19 U/L (14-36) 02/19/18 22:10 ALT 29 U/L (9-52) 02/19/18 22:10 Alkaline Phosphatase 97 U/L (38-126) 02/19/18 22:10 Total Creatine Kinase 39 U/L (30-135) 02/19/18 22:10 CK-MB (CK-2) 1.5 ng/mL (0.0-2.4) 02/19/18 22:10 CK-MB (CK-2) Rel Index 3.8 02/19/18 22:10 Troponin I 0.017 ng/mL (0.000-0.034) 02/19/18 22:10 Total Protein 6.2 g/dL (6.3-8.2) L 02/19/18 22:10 Albumin 3.8 g/dL (3.5-5.0) 02/19/18 22:10 Urine Color Yellow 02/19/18 21:41 Urine Appearance Cloudy (Clear) H 02/19/18 21:41 Urine pH 5.5 (5.0-8.0) 02/19/18 21:41 Ur Specific [place] 1.012 (1.001-1.035) 02/19/18 21:41 Urine Protein Trace (Negative) H 02/19/18 21:41 Urine Glucose (UA) Negative (Negative) 02/19/18 21:41 Urine Ketones Negative (Negative) 02/19/18 21:41 Urine Blood Trace (Negative) H 02/19/18 21:41 Urine Nitrite Negative (Negative) 02/19/18 21:41 Urine Bilirubin Negative (Negative) 02/19/18 21:41 Urine Urobilinogen <2.0 mg/dL (<2.0) 02/19/18 21:41 Ur Leukocyte Esterase Large (Negative) H 02/19/18 21:41 Urine WBC >182 /hpf (0-5) H 02/19/18 21:41 Urine WBC Clumps Many /hpf (None) H 02/19/18 21:41 Ur Squamous Epith Cells 2 /hpf (0-4) 02/19/18 21:41 Urine Mucus Rare /hpf (None) H 02/19/18 21:41 Microbiology 02/19/18 21:41 Urine,Voided Urine Culture - Preliminary Assessment and Plan (1) UTI (urinary tract infection) Narrative/Plan: 82-year-old female presents to Hospital from home feeling very poorly. She is known history of multiple urinary tract infections and again is found to have evidence of sepsis from urinary tract. She has urine culture that does reveal evidence of ESBL in the Urine. If this is again found that we can make arrangements for outpatient antibiotic therapy with carbapenem. For now meropenem is being dose adjusted by pharmacy and should be appropriate for this isolate a pathogen from the past. We'll further adjust antibiotic therapy as needed. She does have chronic anemia that is actually improved from prior readings Does have evidence of chronic renal failure with an acute component at this time with her acute sepsis. Hydration is being utilized also. Her pain is being well managed. Chest x-ray is reviewed without evidence of any pneumonia. No other focus of infection is found at this time. She did have an ultrasound done several months ago and they did suggest a follow -up, if indicated that be done at this time. Current Visit: Yes Status: Acute Code(s): N39.0 - URINARY TRACT INFECTION, SITE NOT SPECIFIED SNOMED Code(s): 66543572 (2) Diastolic CHF, acute on chronic Current Visit: Yes Status: Acute Code(s): I50.33 - ACUTE ON CHRONIC DIASTOLIC (CONGESTIVE) HEART FAILURE SNOMED Code(s): 164774397 (3) CKD (chronic kidney disease) Current Visit: No Status: Acute Code(s): N18.9 - CHRONIC KIDNEY DISEASE, UNSPECIFIED SNOMED Code(s): 409499723
[2018-02-20] MEDS: GLIMEPIRIDE 1 MG TAB PO SCH (18:27)
[2018-02-20] MEDS: ATORVASTATIN 10 MG TAB PO SCH (20:42)
--- NOTE | 2018-02-20 22:29 | HP ---
HISTORY AND PHYSICAL ATTENDING PHYSICIAN: Dr. Lester Blood. CHIEF COMPLAINT: Not feeling well. HISTORY OF PRESENT ILLNESS: This 82-year-old female came to the emergency room for evaluation. Earlier in the day, I had talked to her about her worsening renal function. The patient also had evidence of urinary tract infection with no fever or chills. The patient has a prescription of Bactrim 400 and was told to take 1 every other day due to her renal status. The patient now presents to the emergency room, nervous because she has persistent E. coli in the urine which she has been resistant to being eradicated. The patient gets a repeat E. coli infection about every 4-6 weeks. The patient has the same bacteria resistant to oral antibiotics except for Bactrim and nitrofurantoin. She has bacteria sensitive to imipenem. The patient states she felt chills, felt malaise. She was basically nervous because of the fact regarding our discussion that her renal function is worsening and the GFR is at 18 now. The patient has no other symptoms at the time of evaluation. 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 The patient also has chronic congestive cardiac failure, adequately compensated with medical therapy. She has a history of carotid stenosis and cerebrovascular disease. The patient has history of diabetes mellitus, chronic lymphangitic and venous stasis, lower extremities. The patient also has history of a pacemaker. No history of any myocardial infarction, CVA, lung disease, liver disease, thyroid condition, ulcers, TB, hepatitis. No history of any rheumatic fever, myocardial infarction or CVA. PAST SURGICAL HISTORY: Significant for biventricular pacemaker placement. She has also had a previous hysterectomy, hemorrhoidectomy, rectocele, cystocele repair, cataract surgery and varicose vein stripping. PERSONAL HISTORY: Nonsmoker. No alcohol. ALLERGIES: To PENICILLIN, which causes rash and hives. The patient is not allergic to sulfa. Patient is allergic to DEMEROL with nausea, vomiting. SOCIAL HISTORY: Patient is , lives alone. FAMILY MEDICAL HISTORY: One daughter with a history of aortic valve disease. The patient's father had coronary artery disease and hypertension. Mother's health status unknown. One sister with an unknown type of malignancy. REVIEW OF SYSTEMS: NEURO: Denies any headaches, dizziness. PSYCH: Anxiety. CARDIAC: Denies chest pain, angina, palpitation. RESPIRATORY: Denies shortness of breath, cough, hemoptysis. GI: No nausea, vomiting, abdominal pain, diarrhea. : No symptoms of dysuria, hematuria. Has frequency, urgency, some dysuria. EXTREMITIES: No pain. Chronic edema. CONSTITUTIONAL: No fever, chills. HEMATOLOGICAL: No anemia or bleeding disorder. ENDOCRINE: Diabetes mellitus, controlled. SKIN: No rashes. PHYSICAL EXAMINATION: Pleasant female in no distress. Vital signs revealed temperature 97.3, pulse 65, respirations 16, blood pressure 99/42, pulse ox 94 on 2L. HEENT: Normocephalic. NECK: Supple. No JVD. Chest is clear to auscultation, percussion. CARDIAC: Normal S1, S2 with no gallops. There is irregular rhythm. Systolic murmur 2/6 at the apex. ABDOMEN: Soft. Bowel sounds normal. No organomegaly. No abdominal bruits. No CVA tenderness. Extremities reveal chronic edema. No tenderness. NEUROLOGICALLY: Awake, alert, oriented x3 with well-coordinated movements. LABORATORY ASSESSMENT: White count 9.2, hemoglobin 11.1. Sodium 136, potassium 4.6, chloride 103, CO2 of 19, BUN 84, creatinine 2.57, glucose 150. Magnesium was 1.5. Troponin 0.017. Urinalysis: Numerous WBCs, negative nitrite. ASSESSMENT: 1. Urinary tract infection with Escherichia coli resistant to most oral antibiotics. 2. Acute on chronic renal failure, stage 4. 3. Chronic atrial fibrillation. 4. Chronic congestive cardiac failure secondary to systolic dysfunction, compensated. 5. Biventricular pacer. 6. Diabetes mellitus. 7. Chronic venous hypertension, lower extremities. PLAN: The patient at present is clinically stable. Continue present medical regimen. The patient is on imipenem. Will ask ID's opinion as well as Nephrology to see the patient. Patient's condition discussed with the patient. Prognosis guarded. MMODL / IJN: [id number] /
[2018-02-21] MEDS: LEVOTHYROXINE 100 MCG TAB PO SCH (06:13)
[2018-02-21 08:59] LABS: Potassium 4.7 mmol/L (3.5-5.1)
[2018-02-21] MEDS: PANTOPRAZOLE 40 MG TABLET PO SCH (09:19)
[2018-02-21] MEDS: GLIMEPIRIDE 1 MG TAB PO SCH ×2 (09:19→17:09)
[2018-02-21] MEDS: FLECAINIDE 50 MG TAB PO SCH ×2 (09:19→22:29)
[2018-02-21] MEDS: ALLOPURINOL 100 MG TAB PO SCH (09:19)
[2018-02-21] MEDS: ATENOLOL 50 MG TAB PO SCH ×2 (09:20→22:29)
[2018-02-21] MEDS: MEROPENEM 1 GM in SODIUM CHLORIDE 0.9% 100 ML IVPB SCH ×2 (09:20→22:29)
[2018-02-21] MEDS: APIXABAN 2.5 MG TABLET PO SCH ×2 (09:20→22:29)
[2018-02-21] MEDS: MULTIVITAMINS, THERA 1 EACH TAB PO SCH (09:21)
[2018-02-21] MEDS: CHOLECALCIFEROL 1,000 UNIT TAB PO SCH (09:21)
--- NOTE | 2018-02-21 12:41 | P.NPCON ---
History of Present Illness - Reason for Consult chronic renal failure - History of Present Illness Reason for consultation: Chronic kidney disease next History of present illness: Patient is a 82-year-old female seen in renal consultation for acute kidney injury on chronic kidney disease. 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 Creatinine is 2.64 today. Patient had blood work done as an outpatient and the results were discussed by her primary care physician. Patient decided to come to the hospital. Patient states she did admit of urinary frequency as well as dysuria. She was noted to have E. coli on urine culture as an outpatient in the urine culture now showing group B strep. She is maintained on IV antibiotics. She was taking single strength Bactrim every other day prior to admission. She denies any chest pain or shortness of breath. Denies edema. Admits to good urine output. No hematuria. Appetite is good. Denies nausea vomiting or diarrhea. She does have chronic UTIs. She also has history of systolic CHF with ejection fraction of 25%. Vital signs are stable. General: The patient appeared well nourished and normally developed. HEENT: Head exam is unremarkable. Neck is without jugular venous distension. LUNGS: Lungs are clear to auscultation and percussion. Breath sounds decreased. HEART: Rate and Rhythm are regular. First and second heart sounds normal. No murmurs, rubs or gallops. ABDOMEN: Abdominal exam reveals normal bowel sounds. Non-tender and non- distended. No evidence of peritonitis. EXTREMITITES: No clubbing, cyanosis, or edema. Past Medical History Past Medical History: Atrial Fibrillation, Heart Failure, Diabetes Mellitus, GERD/Reflux, Hyperlipidemia, Hypertension, Myocardial Infarction ([place]), Sleep Apnea/CPAP/BIPAP, Thyroid Disorder Additional Past Medical History / Comment(s): uti's,PALPITATIONS, patient states kidney function tests are not normal and see saw Dr Child about it. Uses CPAP machine. Sick Sinus Syndrome with pacemaker, chronic afib Last Myocardial Infarction Date:: 32 years ago History of Any Multi-Drug Resistant Organisms: ESBL Date of last positivie culture/infection: 07/11/17 MDRO Source:: URINE Past Surgical History: Hysterectomy, Pacemaker Additional Past Surgical History / Comment(s): hemmorrhoidectomy/rectocele/ cystocele, cataracts,. vein stripping Past Anesthesia/Blood Transfusion Reactions: No Reported Reaction Type of Cardiac Device: Permanent Pacemaker Device Placement Date:: 01/2017 Past Psychological History: No Psychological Hx Reported Additional Psychological History / Comment(s): lives in own home has 2 steps into home. recieved cleaning services .no pets. gets meals on wheels. has cpap machine,rolling walker /cane. has life alert necklace. she is an adult daughter and son-in-law who help her with day to day needs including shopping and transporter as needed. If she needs to have outpatient antibiotic therapy it would come and stay with her. Smoking Status: Never smoker Past Alcohol Use History: None Reported Past Drug Use History: None Reported - Past Family History Father Family Medical History: Coronary Artery Disease (CAD), Hyperlipidemia, Hypertension, Myocardial Infarction ([place]) Mother Family Medical History: Unable to Obtain Sister(s) Family Medical History: Cancer Medications and Allergies Home Medications Medication Instructions Recorded Confirmed Type Levothyroxine Sodium [Synthroid] 100 mcg PO DAILY 01/31/14 02/19/18 History Apixaban [Eliquis] 2.5 mg PO BID 10/12/16 02/19/18 History Flecainide [Tambocor] 50 mg PO BID 10/12/16 02/19/18 History Multivitamins, Thera [Multivitamin 1 tab PO DAILY@1200 12/10/16 02/19/18 History (formulary)] Simvastatin [Zocor] 20 mg PO HS #90 tab 12/13/16 02/19/18 Rx Allopurinol [Zyloprim] 100 mg PO DAILY 01/18/17 02/19/18 History Calcitriol [Rocaltrol] 0.25 mcg PO MOWEFR 01/18/17 02/19/18 History Cholecalciferol [Vitamin D3] 4,000 unit PO DAILY 01/18/17 02/19/18 History Acetaminophen [Tylenol Arthritis] 650 mg PO Q8H PRN 07/11/17 02/19/18 History Atenolol [Tenormin] 50 mg PO BID 10/10/17 02/19/18 History Furosemide [Lasix] 20 mg PO DAILY 10/10/17 02/19/18 History Glimepiride [Amaryl] 1 mg PO AC-BID 10/10/17 02/19/18 History Losartan [Cozaar] 25 mg PO DAILY 10/10/17 02/19/18 History Pantoprazole [Protonix] 40 mg PO DAILY 10/10/17 02/19/18 History Spironolactone [Aldactone] 12.5 mg PO Q48H 10/10/17 02/19/18 History Allergies Allergy/AdvReac Type Severity Reaction Status Date / Time meperidine HCl [From Demerol] Allergy Nausea & Verified 02/19/18 22:24 Vomiting Penicillins Allergy Rash/Hives Verified 02/19/18 22:24 Sulfa (Sulfonamide Allergy Rash/Hives Verified 02/19/18 22:24 Antibiotics) Physical Exam Vitals: Vital Signs Temp Pulse Resp BP Pulse Ox 02/21/18 05:50 98.4 F 67 17 116/58 97 02/20/18 23:00 98.1 F 77 18 120/58 93 L 02/20/18 20:20 20 02/20/18 16:00 64 20 02/20/18 15:00 97.2 F L 64 20 141/65 100 Intake and Output 02/20/18 02/21/18 02/21/18 22:59 06:59 14:59 Other: Voiding Method Toilet # Voids 3 3 4 # Bowel Movements 1 Results - Lab Results Most recent lab results Calcium 9.0 mg/dL (8.4-10.2) 02/21/18 08:08 Phosphorus 4.4 mg/dL (2.5-4.5) 02/19/18 22:10 Magnesium 1.5 mg/dL (1.6-2.3) L 02/19/18 22:10 02/19/18 22:10 02/21/18 08:08 Assessment and Plan Plan: Assessment: 1. Mild nonoliguric acute kidney injury mostly prerenal from diuretics and UTI. Creatinine stable at 2.64 today. 2. Chronic kidney disease stage IV secondary to diabetic kidney disease and cardiorenal syndrome with baseline creatinine in the range of 2.3-2.5. 3. UTI with urine culture positive for E. coli as outpatient and now positive for group B strep. She is maintained on IV antibiotics. 4. Metabolic acidosis secondary to chronic kidney disease. 5. Diabetes mellitus. 6. Chronic systolic CHF with ejection fraction of 25%. Currently compensated. 7. Hypertension with chronic kidney disease. Controlled. 8. Chronic kidney disease mineral bone disease maintained on calcitriol. Plan: Encourage oral intake. Add oral sodium bicarbonate 650 mg twice daily. Continue to hold Cozaar and Lasix for now. Her blood pressures well controlled. Repeat electrolytes in the morning. Thank you for the consultation. I will continue to follow the patient with you during her hospital stay.
[2018-02-21] MEDS: SODIUM BICARBONATE TAB 650 MG TAB PO SCH ×2 (12:48→22:30)
--- NOTE | 2018-02-21 13:40 | P.PN ---
Subjective Progress Note Date: 02/21/18 This 82-year-old female was admitted to the hospital because of urinary tract infection and worsening renal function. Outpatient urine culture grew E. coli resistant to most antibiotics. The patient in view of this was admitted to the hospital and started on meropenem. Her urine culture is showing strep group B. She has had no fever. Her urinary symptoms are improved. She has no orthopnea or PND. She does have history of chronic congestive cardiac failure. IV fluids were discontinued renal function is stabilized creatinine encephalopathy 0.64 with the BUN is improved. Patient has been seen by nephrology and has been placed on medical treatment with sodium bicarbonate for mild acidosis from renal failure. Patient also has had history of diabetes mellitus blood sugars adequately controlled. REVIEW OF SYSTEMS: Neuro: Denies any headaches dizziness. Psych: Denies anxiety depression feels oriented. Cardiac: Denies chest pain and angina palpitations. Respiratory: Denies shortness of breath cough. GI: Denies nausea vomiting or abdominal pain. No diarrhea or constipation, no bowel movement yet. : Denies dysuria hematuria. Extremities: Denies pain. No edema. Skin: Intact. Constitutional: No fever, chills. Objective - Vital Signs Vital signs: Vital Signs Temp 98.4 F 02/21/18 05:50 Pulse 67 02/21/18 05:50 Resp 17 02/21/18 05:50 BP 116/58 02/21/18 05:50 Pulse Ox 97 02/21/18 05:50 Intake & Output 02/20/18 02/21/18 02/21/18 18:59 06:59 18:59 Intake Total 400 Balance 400 Intake: Oral 400 Other: Voiding Method Toilet Toilet Toilet # Voids 1 3 4 # Bowel Movements 1 1 PHYSICAL EXAMINATION: Cooperative, at present in no acute distress. HEENT: Neck supple. No JVD. Chest: Clear to auscultation percussion. Cardiac: Normal S1-S2 no gallops, no rubs. Abdomen: Soft bowel sounds present. Extremities: Chronic edema with no change no tenderness Neurologically: Awake, alert, oriented with well-coordinated movements. - Labs CBC & Chem 7: 02/19/18 22:10 02/21/18 08:08 Labs: Abnormal Lab Results - Last 24 Hours (Table) 02/21/18 Range/Units 08:08 Chloride 110 H (98-107) mmol/L Carbon Dioxide 18 L (22-30) mmol/L BUN 73 H (7-17) mg/dL Creatinine 2.64 H (0.52-1.04) mg/dL Glucose 108 H (74-99) mg/dL Microbiology - Last 24 Hours (Table) 02/19/18 21:41 Urine Culture - Final Urine,Voided Strep agalactiae - (group b) Assessment and Plan Assessment: ASSESSMENT: 1. Urinary tract infection with resistant bacteria. 2. Recurrent cystitis. 3. Chronic kidney disease stage IV. 4. Hypertensive cardiovascular disease. 5. Chronic congestive cardiac failure secondary to systolic dysfunction, stable. 6. Obesity 7. Acute kidney injury due to prerenal azotemia from increased diuresis and infection 8. Dilated cardiomyopathy 9. Mild metabolic acidosis secondary to renal disease PLAN: . Continue present medical regimen. Patient has been started on sodium bicarbonate by nephrology. Meanwhile will continue to monitor closely. Patient 's prognosis remains guarded continue present antibiotics for several discharge home tomorrow or day after
[2018-02-21 15:40] VITALS: RESP 16
[2018-02-21 17:31] LABS: Glucose,Whole Blood 137 mg/dL (75-99)
[2018-02-21] MEDS: ATORVASTATIN 10 MG TAB PO SCH (22:29)
[2018-02-22] MEDS: LEVOTHYROXINE 100 MCG TAB PO SCH (06:17)
[2018-02-22 07:36] LABS: Glucose,Whole Blood 121 mg/dL (75-99)
[2018-02-22] MEDS: ATENOLOL 50 MG TAB PO SCH (07:59)
[2018-02-22] MEDS: ALLOPURINOL 100 MG TAB PO SCH (07:59)
[2018-02-22] MEDS: SPIRONOLACTONE 25 MG TAB PO SCH (08:00)
[2018-02-22] MEDS: FLECAINIDE 50 MG TAB PO SCH (08:00)
[2018-02-22] MEDS: MEROPENEM 1 GM in SODIUM CHLORIDE 0.9% 100 ML IVPB SCH (08:00)
[2018-02-22] MEDS: GLIMEPIRIDE 1 MG TAB PO SCH (08:00)
[2018-02-22] MEDS: MULTIVITAMINS, THERA 1 EACH TAB PO SCH (08:00)
[2018-02-22] MEDS: SODIUM BICARBONATE TAB 650 MG TAB PO SCH (08:00)
[2018-02-22] MEDS: CHOLECALCIFEROL 1,000 UNIT TAB PO SCH (08:01)
[2018-02-22] MEDS: APIXABAN 2.5 MG TABLET PO SCH (08:01)
[2018-02-22] MEDS: PANTOPRAZOLE 40 MG TABLET PO SCH (08:01)
[2018-02-22 11:29] LABS: Potassium 4.8 mmol/L (3.5-5.1)
--- NOTE | 2018-02-22 12:06 | P.PN ---
Subjective Patient is seen in follow-up for acute kidney injury on chronic kidney disease. Creatinine is down to 2.2 today. She had 1 episode of diarrhea this morning. Admits to good urine output. Denies chest pain or shortness of breath. She is currently being treated for UTI. Vital signs are stable. General: The patient appeared well nourished and normally developed. HEENT: Head exam is unremarkable. Neck is without jugular venous distension. LUNGS: Lungs are clear to auscultation and percussion. Breath sounds decreased. HEART: Rate and Rhythm are regular. First and second heart sounds normal. No murmurs, rubs or gallops. ABDOMEN: Abdominal exam reveals normal bowel sounds. Non-tender and non- distended. No evidence of peritonitis. EXTREMITITES: No clubbing, cyanosis, or edema. Objective - Vital Signs Vital signs: Vital Signs Temp 98.1 F 02/22/18 06:00 Pulse 67 02/22/18 06:00 Resp 16 02/22/18 06:00 BP 132/54 02/22/18 06:00 Pulse Ox 95 02/22/18 06:00 Intake & Output 02/21/18 02/22/18 02/22/18 18:59 06:59 18:59 Intake Total 1000 Balance 1000 Weight 97.1 kg Intake: Oral 1000 Other: Voiding Method Toilet Toilet Toilet # Voids 4 3 # Bowel Movements 1 - Labs CBC & Chem 7: 02/19/18 22:10 02/22/18 10:50 Labs: Abnormal Lab Results - Last 24 Hours (Table) 02/21/18 02/22/18 02/22/18 Range/Units 17:28 07:22 10:50 Chloride 110 H (98-107) mmol/L Carbon Dioxide 20 L (22-30) mmol/L BUN 64 H (7-17) mg/dL Creatinine 2.20 H (0.52-1.04) mg/dL Glucose 125 H (74-99) mg/dL POC Glucose (mg/dL) 137 H 121 H (75-99) mg/dL Assessment and Plan Plan: Assessment: 1. Mild nonoliguric acute kidney injury mostly prerenal from diuretics and UTI. Improved. Creatinine down to 2.2 today. 2. Chronic kidney disease stage IV secondary to diabetic kidney disease and cardiorenal syndrome with baseline creatinine in the range of 2.3-2.5. 3. UTI with urine culture positive for E. coli as outpatient and now positive for group B strep. She is maintained on IV antibiotics. 4. Metabolic acidosis secondary to chronic kidney disease. Improved. 5. Diabetes mellitus. 6. Chronic systolic CHF with ejection fraction of 25%. Currently compensated. 7. Hypertension with chronic kidney disease. Controlled. 8. Chronic kidney disease mineral bone disease maintained on calcitriol. Plan: Encourage oral intake. Maintain oral sodium bicarbonate 650 mg twice daily. Continue to hold Cozaar and Lasix for now. Her blood pressures well controlled. Potential discharge today. She will need to follow-up as an outpatient in the next 1-2 weeks.
--- NOTE | 2018-02-22 12:36 | P.DS ---
Providers Date of admission: 02/20/18 11:35 Attending physician: Phil Blood Consults: 02/20/18 08:07 Consult Physician Routine Consulting Provider: Soifa Child Consult Reason/Comments: arf/crf Do you want consulting provider notified?: Yes 02/20/18 08:09 Consult Physician Routine Consulting Provider: Gama Villegas Reason/Comments: recurrant uti with resistant e.coli Do you want consulting provider notified?: Yes Primary care physician: Phil Blood Hospital Course: This 82-year-old female was admitted to the hospital because of feeling weak. She also had evidence incision made tract infection on a culture done on the outpatient. Her urine analysis have been unremarkable however the culture grown E. coli resistant to all medications except Bactrim and Macrodantin. She had taken 1 tablet of Bactrim 400 at home. The patient apparently also take an extra Lasix because she felt she was putting on more water weight. She does have underlying history of chronic congestive cardiac failure. The patient seen in the ER noted to have some further progression of her chronic kidney disease stage IV. Her GFR was down to 17. The patient mildly acidotic. Negative for any fever or lactic acid. The patient did have a suggestion of infection on urine analysis. Patient is admitted to start an IV hydration Lasix held patient placed on meropenem. Patient's general condition is improved she's had no fever or leukocytosis. No further urinary tract symptoms patient's renal function is improved. She was seen by the ditch repairer and the ID physician. Her urine culture comes back with strep group B. She is currently be discharged home on Bactrim 400 daily. Lasix 20 mg daily will be resumed. She was taking Lasix 40 every other day and 20 every other day. She will be seen in the office. She has been started on sodium bicarbonate one twice a day Final diagnosis to include 1. Acute on chronic kidney failure 2. CKD4 3 urinary tract infection with resistant bacteria 4. Recurrent cystitis 5. Hypertensive cardiovascular disease 6. Chronic congestive cardiac failure secondary to systolic dysfunction stable 7. Acute kidney injury due to prerenal azotemia from increased diuresis and infection 8. Mild metabolic acidosis secondary to renal disease 9. Dilated cardiomyopathy 10. Obesity Patient Condition at Discharge: Good Plan - Discharge Summary New Discharge Prescriptions: New Sodium Bicarbonate Tab 650 mg PO BID #60 tab Sulfamethoxazole/Trimethoprim [Bactrim SS 400-80 mg] 1 each PO QAM #7 tablet Continue Levothyroxine Sodium [Synthroid] 100 mcg PO DAILY Flecainide [Tambocor] 50 mg PO BID Apixaban [Eliquis] 2.5 mg PO BID Multivitamins, Thera [Multivitamin (formulary)] 1 tab PO DAILY@1200 Simvastatin [Zocor] 20 mg PO HS #90 tab Cholecalciferol [Vitamin D3] 4,000 unit PO DAILY Calcitriol [Rocaltrol] 0.25 mcg PO MOWEFR Allopurinol [Zyloprim] 100 mg PO DAILY Acetaminophen [Tylenol Arthritis] 650 mg PO Q8H PRN PRN Reason: Pain Furosemide [Lasix] 20 mg PO DAILY Glimepiride [Amaryl] 1 mg PO AC-BID Spironolactone [Aldactone] 12.5 mg PO Q48H Losartan [Cozaar] 25 mg PO DAILY Atenolol [Tenormin] 50 mg PO BID Pantoprazole [Protonix] 40 mg PO DAILY Discharge Medication List Levothyroxine Sodium [Synthroid] 100 mcg PO DAILY 01/31/14 [History] Apixaban [Eliquis] 2.5 mg PO BID 10/12/16 [History] Flecainide [Tambocor] 50 mg PO BID 10/12/16 [History] Multivitamins, Thera [Multivitamin (formulary)] 1 tab PO DAILY@1200 12/10/16 [ History] Simvastatin [Zocor] 20 mg PO HS #90 tab 12/13/16 [Rx] Allopurinol [Zyloprim] 100 mg PO DAILY 01/18/17 [History] Calcitriol [Rocaltrol] 0.25 mcg PO MOWEFR 01/18/17 [History] Cholecalciferol [Vitamin D3] 4,000 unit PO DAILY 01/18/17 [History] Acetaminophen [Tylenol Arthritis] 650 mg PO Q8H PRN 07/11/17 [History] Atenolol [Tenormin] 50 mg PO BID 10/10/17 [History] Furosemide [Lasix] 20 mg PO DAILY 10/10/17 [History] Glimepiride [Amaryl] 1 mg PO AC-BID 10/10/17 [History] Losartan [Cozaar] 25 mg PO DAILY 10/10/17 [History] Pantoprazole [Protonix] 40 mg PO DAILY 10/10/17 [History] Spironolactone [Aldactone] 12.5 mg PO Q48H 10/10/17 [History] Sodium Bicarbonate Tab 650 mg PO BID #60 tab 02/22/18 [Rx] Sulfamethoxazole/Trimethoprim [Bactrim SS 400-80 mg] 1 each PO QAM #7 tablet [Rx] Follow up Appointment(s)/Referral(s): Phil Blood MD [Primary Care Provider] - 1-2 days Patient Instructions/Handouts: Urinary Tract Infection in Women (DC) Activity/Diet/Wound Care/Special Instructions: activity as tolerated continue regular diet Discharge Disposition: HOME SELF-CARE
[2018-02-22 15:03] VITALS: BP 143/62; PULSE 69; TEMP 97.8
== END 2018-02-22 16:54 | disposition home or self-care (01) | DRG 682 ==
LOC: EC 21:01 → 4MS4W 23:27 → OBSVTOIN 02-20 11:35
PROVIDERS: ADMIT Internal Medicine; ATTEND Internal Medicine
DX: N17.9 Acute kidney failure, unspecified (principal); I50.23 Acute on chronic systolic (congestive) heart failure; I42.0 Dilated cardiomyopathy; E87.2 Acidosis; I13.2 Hypertensive heart and chronic kidney disease with heart failure and with stage 5 chronic kidney disease, or end stage renal disease; N39.0 Urinary tract infection, site not specified; N18.4 Chronic kidney disease, stage 4 (severe); I48.2 Chronic atrial fibrillation; E11.22 Type 2 diabetes mellitus with diabetic chronic kidney disease; B95.1 Streptococcus, group B, as the cause of diseases classified elsewhere; I65.29 Occlusion and stenosis of unspecified carotid artery; R19.7 Diarrhea, unspecified; T50.1X5A Adverse effect of loop [high-ceiling] diuretics, initial encounter; R53.81 Other malaise; K21.9 Gastro-esophageal reflux disease without esophagitis; G47.30 Sleep apnea, unspecified; E78.5 Hyperlipidemia, unspecified; E66.9 Obesity, unspecified; E07.9 Disorder of thyroid, unspecified; I49.5 Sick sinus syndrome; D64.9 Anemia, unspecified; I87.8 Other specified disorders of veins; I87.309 Chronic venous hypertension (idiopathic) without complications of unspecified lower extremity; I67.9 Cerebrovascular disease, unspecified; I25.2 Old myocardial infarction; Z90.710 Acquired absence of both cervix and uterus; Z95.0 Presence of cardiac pacemaker; Z79.899 Other long term (current) drug therapy; Z82.49 Family history of ischemic heart disease and other diseases of the circulatory system; Z87.440 Personal history of urinary (tract) infections; Z16.24 Resistance to multiple antibiotics; Z79.01 Long term (current) use of anticoagulants; Z79.84 Long term (current) use of oral hypoglycemic drugs; Z68.34 Body mass index [BMI] 34.0-34.9, adult; Z98.49 Cataract extraction status, unspecified eye; Z79.890 Hormone replacement therapy; Z83.49 Family history of other endocrine, nutritional and metabolic diseases; Z88.2 Allergy status to sulfonamides; Z88.0 Allergy status to penicillin; Z88.5 Allergy status to narcotic agent; Z80.9 Family history of malignant neoplasm, unspecified
CPT/HCPCS: 36415; 71046; 80048; 80053; 81001; 82550; 82553; 83735; 84100; 84484; 85025; 87086; 99285

== ENCOUNTER 2018-05-22 15:18 | Emergency (ER) | payer MEDICARE ==
[2018-05-22 15:35] VITALS: TEMP 98.2
[2018-05-22] MEDS ORDERED: SODIUM CHLORIDE 0.9% 1,000 ML IV STA (15:49)
[2018-05-22] MEDS ORDERED: LABETALOL 5 MG/ML VIAL MDV IVP STA (15:49)
[2018-05-22 16:05] LABS: Basophils % (A) 0 %; Eosinophils # (A) 0.2 k/uL (0-0.7); Eosinophils % (A) 2 %; HCT 32.7 % (34.0-46.0); HGB 10.8 gm/dL (11.4-16.0); Lymphocytes # (A) 1.3 k/uL (1.0-4.8); Lymphocytes % (A) 17 %; MCH 32.4 pg (25.0-35.0); MCHC 33.2 g/dL (31.0-37.0); MCV 97.6 fL (80.0-100.0); Mean Platelet Volume 7.5; Monocytes # (A) 0.3 k/uL (0-1.0); Monocytes % (A) 4 %; Neutrophils # (A) 5.6 k/uL (1.3-7.7); Neutrophils % (A) 75 %; Platelet Count 170 k/uL (150-450); RBC 3.35 m/uL (3.80-5.40); RDW 13.5 % (11.5-15.5); WBC 7.4 k/uL (3.8-10.6)
[2018-05-22 16:15] LABS: Albumin 3.9 g/dL (3.5-5.0); Magnesium 1.9 mg/dL (1.6-2.3); Total Bilirubin 0.4 mg/dL (0.2-1.3); Total Protein 6.8 g/dL (6.3-8.2)
[2018-05-22 16:18] LABS: Partial Thromboplastin Time 23.3 sec (22.0-30.0); Prothrombin Time 9.7 sec (9.0-12.0)
[2018-05-22 16:19] LABS: Creatine Kinase 41 U/L (30-135)
[2018-05-22 16:25] LABS: D-Dimer 0.62 mg/L FEU (<0.60)
[2018-05-22 16:32] LABS: Creatine Kinase MB 1.9 ng/mL (0.0-2.4); Troponin I <0.012 ng/mL (0.000-0.034)
--- NOTE | 2018-05-22 16:37 | ED ---
Dizziness HPI - General Chief Complaint: Syncope Stated Complaint: hypertension Time Seen by Provider: 05/22/18 15:45 Source: patient, RN notes reviewed, old records reviewed Mode of arrival: EMS Limitations: no limitations - History of Present Illness Initial Comments: this is a 82-year-old female the ER for evaluation. This patient presents today for evaluation of weakness and dizziness. Patient was seen by EMS and brought to ER for evaluation regarding dizziness and she noted that she had hypertension at home. Patient was concerned about elevated blood pressure. He does admit to be in have increased anxiety secondary to dizziness. She did not feel issues in the past several she has pressed on the past. Again currently denies any headache chest pain shortness breath or abdominal - Related Data Home Medications Medication Instructions Recorded Confirmed Levothyroxine Sodium [Synthroid] 100 mcg PO DAILY 01/31/14 05/22/18 Apixaban [Eliquis] 2.5 mg PO BID 10/12/16 05/22/18 Flecainide [Tambocor] 50 mg PO BID 10/12/16 05/22/18 Multivitamins, Thera [Multivitamin 1 tab PO DAILY 12/10/16 05/22/18 (formulary)] Allopurinol [Zyloprim] 100 mg PO DAILY 01/18/17 05/22/18 Calcitriol [Rocaltrol] 0.25 mcg PO MOWEFR 01/18/17 05/22/18 Cholecalciferol [Vitamin D3] 4,000 unit PO DAILY 01/18/17 05/22/18 Atenolol [Tenormin] 50 mg PO BID 10/10/17 05/22/18 Glimepiride [Amaryl] 1 mg PO AC-BID 10/10/17 05/22/18 Losartan [Cozaar] 25 mg PO DAILY 10/10/17 05/22/18 Pantoprazole [Protonix] 40 mg PO DAILY 10/10/17 05/22/18 Spironolactone [Aldactone] 12.5 mg PO Q48H 10/10/17 05/22/18 Acetaminophen [Tylenol] 1,000 mg PO Q8H PRN 05/22/18 05/22/18 Previous Rx's Medication Instructions Recorded Simvastatin [Zocor] 20 mg PO HS #90 tab 12/13/16 Sodium Bicarbonate Tab 650 mg PO BID #60 tab 02/22/18 Allergies Allergy/AdvReac Type Severity Reaction Status Date / Time meperidine HCl [From Demerol] Allergy Nausea & Verified 05/22/18 16:31 Vomiting Penicillins Allergy Rash/Hives Verified 05/22/18 16:31 Sulfa (Sulfonamide Allergy Rash/Hives Verified 05/22/18 16:31 Antibiotics) Review of Systems ROS Statement: Those systems with pertinent positive or pertinent negative responses have been documented in the HPI. ROS Other: All systems not noted in ROS Statement are negative. Past Medical History Past Medical History: Atrial Fibrillation, Heart Failure, Diabetes Mellitus, GERD/Reflux, Hyperlipidemia, Hypertension, Myocardial Infarction ([place]), Sleep Apnea/CPAP/BIPAP, Thyroid Disorder Additional Past Medical History / Comment(s): uti's,PALPITATIONS, patient states kidney function tests are not normal and see saw Dr Child about it. Uses CPAP machine. Sick Sinus Syndrome with pacemaker, chronic afib Last Myocardial Infarction Date:: 32 years ago History of Any Multi-Drug Resistant Organisms: ESBL Date of last positivie culture/infection: 07/11/17 MDRO Source:: URINE Past Surgical History: Hysterectomy, Pacemaker Additional Past Surgical History / Comment(s): hemmorrhoidectomy/rectocele/ cystocele, cataracts,. vein stripping Past Anesthesia/Blood Transfusion Reactions: No Reported Reaction Type of Cardiac Device: Permanent Pacemaker Device Placement Date:: 01/2017 Past Psychological History: No Psychological Hx Reported Smoking Status: Never smoker Past Alcohol Use History: None Reported Past Drug Use History: None Reported - Past Family History Father Family Medical History: Coronary Artery Disease (CAD), Hyperlipidemia, Hypertension, Myocardial Infarction ([place]) Mother Family Medical History: Unable to Obtain Sister(s) Family Medical History: Cancer General Exam Limitations: no limitations General appearance: alert, in no apparent distress Head exam: Present: atraumatic, normocephalic, normal inspection Eye exam: Present: normal appearance, PERRL, EOMI. Absent: scleral icterus, conjunctival injection, periorbital swelling ENT exam: Present: normal exam, mucous membranes moist Neck exam: Present: normal inspection. Absent: tenderness, meningismus, lymphadenopathy Respiratory exam: Present: normal lung sounds bilaterally. Absent: respiratory distress, wheezes, rales, rhonchi, stridor Cardiovascular Exam: Present: regular rate, normal rhythm, normal heart sounds. Absent: systolic murmur, diastolic murmur, rubs, gallop, clicks GI/Abdominal exam: Present: soft, normal bowel sounds. Absent: distended, tenderness, guarding, rebound, rigid Extremities exam: Present: normal inspection, full ROM, normal capillary refill. Absent: tenderness, pedal edema, joint swelling, calf tenderness Back exam: Present: normal inspection Neurological exam: Present: alert, oriented X3, CN II-XII intact Psychiatric exam: Present: normal affect, normal mood Skin exam: Present: warm, dry, intact, normal color. Absent: rash Course Vital Signs 05/22/18 05/22/18 05/22/18 15:32 16:03 17:46 Temperature 98.2 F Pulse Rate 60 64 67 Respiratory 16 18 16 Rate Blood Pressure 217/83 150/56 175/75 O2 Sat by Pulse 100 99 98 Oximetry 05/22/18 18:45 Temperature 98.2 F Pulse Rate 66 Respiratory 16 Rate Blood Pressure 164/75 O2 Sat by Pulse 98 Oximetry - Reevaluation(s) Reevaluation #1: patient does admit to anxiety symptoms now improved. Reevaluation #2: patient with elevated d-dimer low denies chest pain denies shortness of breath patient is also on Alquist EKG Findings - EKG Comments: EKG Findings:: EKG shows normal sinus rhythm rate of 67, [place] 162, QRS 22, QTc 536 Medical Decision Making - Medical Decision Making 82 female the ER for evaluation of dizziness near syncopal event dehydration. Patient states she feels much better currently. Like to be discharged home - Lab Data Result diagrams: 05/22/18 15:45 05/22/18 15:45 Lab Results 05/22/18 05/22/18 05/22/18 Range/Units 15:45 15:45 15:45 WBC 7.4 (3.8-10.6) k/uL RBC 3.35 L (3.80-5.40) m/uL Hgb 10.8 L (11.4-16.0) gm/dL Hct 32.7 L (34.0-46.0) % MCV 97.6 (80.0-100.0) fL MCH 32.4 (25.0-35.0) pg MCHC 33.2 (31.0-37.0) g/dL RDW 13.5 (11.5-15.5) % Plt Count 170 (150-450) k/uL Neutrophils % 75 % Lymphocytes % 17 % Monocytes % 4 % Eosinophils % 2 % Basophils % 0 % Neutrophils # 5.6 (1.3-7.7) k/uL Lymphocytes # 1.3 (1.0-4.8) k/uL Monocytes # 0.3 (0-1.0) k/uL Eosinophils # 0.2 (0-0.7) k/uL Basophils # 0.0 (0-0.2) k/uL PT (9.0-12.0) sec INR (<1.2) APTT (22.0-30.0) sec D-Dimer (<0.60) mg/L FEU Sodium 138 (137-145) mmol/L Potassium 5.0 (3.5-5.1) mmol/L Chloride 107 (98-107) mmol/L Carbon Dioxide 17 L (22-30) mmol/L Anion Gap 14 mmol/L BUN 75 H (7-17) mg/dL Creatinine 2.24 H (0.52-1.04) mg/dL Est GFR (CKD-EPI)AfAm 23 (>60 ml/min/1.73 sqM) Est GFR (CKD-EPI)NonAf 20 (>60 ml/min/1.73 sqM) Glucose 176 H (74-99) mg/dL Calcium 9.0 (8.4-10.2) mg/dL Phosphorus 5.0 H (2.5-4.5) mg/dL Magnesium 1.9 (1.6-2.3) mg/dL Total Bilirubin 0.4 (0.2-1.3) mg/dL AST 23 (14-36) U/L ALT 21 (9-52) U/L Alkaline Phosphatase 99 (38-126) U/L Total Creatine Kinase 41 (30-135) U/L CK-MB (CK-2) 1.9 (0.0-2.4) ng/mL CK-MB (CK-2) Rel Index 4.6 Troponin I <0.012 (0.000-0.034) ng/mL Total Protein 6.8 (6.3-8.2) g/dL Albumin 3.9 (3.5-5.0) g/dL Urine Color Urine Appearance (Clear) Urine pH (5.0-8.0) Ur Specific [place] (1.001-1.035) Urine Protein (Negative) Urine Glucose (UA) (Negative) Urine Ketones (Negative) Urine Blood (Negative) Urine Nitrite (Negative) Urine Bilirubin (Negative) Urine Urobilinogen (<2.0) mg/dL Ur Leukocyte Esterase (Negative) Urine RBC (0-5) /hpf Urine WBC (0-5) /hpf Ur Squamous Epith Cells (0-4) /hpf Urine Bacteria (None) /hpf Urine Mucus (None) /hpf 05/22/18 05/22/18 Range/Units 15:45 16:32 WBC (3.8-10.6) k/uL RBC (3.80-5.40) m/uL Hgb (11.4-16.0) gm/dL Hct (34.0-46.0) % MCV (80.0-100.0) fL MCH (25.0-35.0) pg MCHC (31.0-37.0) g/dL RDW (11.5-15.5) % Plt Count (150-450) k/uL Neutrophils % % Lymphocytes % % Monocytes % % Eosinophils % % Basophils % % Neutrophils # (1.3-7.7) k/uL Lymphocytes # (1.0-4.8) k/uL Monocytes # (0-1.0) k/uL Eosinophils # (0-0.7) k/uL Basophils # (0-0.2) k/uL PT 9.7 (9.0-12.0) sec INR 1.0 (<1.2) APTT 23.3 (22.0-30.0) sec D-Dimer 0.62 H (<0.60) mg/L FEU Sodium (137-145) mmol/L Potassium (3.5-5.1) mmol/L Chloride (98-107) mmol/L Carbon Dioxide (22-30) mmol/L Anion Gap mmol/L BUN (7-17) mg/dL Creatinine (0.52-1.04) mg/dL Est GFR (CKD-EPI)AfAm (>60 ml/min/1.73 sqM) Est GFR (CKD-EPI)NonAf (>60 ml/min/1.73 sqM) Glucose (74-99) mg/dL Calcium (8.4-10.2) mg/dL Phosphorus (2.5-4.5) mg/dL Magnesium (1.6-2.3) mg/dL Total Bilirubin (0.2-1.3) mg/dL AST (14-36) U/L ALT (9-52) U/L Alkaline Phosphatase (38-126) U/L Total Creatine Kinase (30-135) U/L CK-MB (CK-2) (0.0-2.4) ng/mL CK-MB (CK-2) Rel Index Troponin I (0.000-0.034) ng/mL Total Protein (6.3-8.2) g/dL Albumin (3.5-5.0) g/dL Urine Color Light Yellow Urine Appearance Clear (Clear) Urine pH 5.5 (5.0-8.0) Ur Specific [place] 1.007 (1.001-1.035) Urine Protein Negative (Negative) Urine Glucose (UA) Negative (Negative) Urine Ketones Negative (Negative) Urine Blood Negative (Negative) Urine Nitrite Negative (Negative) Urine Bilirubin Negative (Negative) Urine Urobilinogen <2.0 (<2.0) mg/dL Ur Leukocyte Esterase Trace H (Negative) Urine RBC 2 (0-5) /hpf Urine WBC 6 H (0-5) /hpf Ur Squamous Epith Cells <1 (0-4) /hpf Urine Bacteria Rare H (None) /hpf Urine Mucus Rare H (None) /hpf - Radiology Data Radiology results: report reviewed (CT brain is negative for acute disease), image reviewed Disposition Clinical Impression: Paroxysmal a-fib, Dizziness, Hypertension Disposition: HOME SELF-CARE Condition: Good Instructions: Dizziness (ED) Is patient prescribed a controlled substance at d/c from ED?: No Referrals: Phil Blood MD [Primary Care Provider] - 1-2 days
[2018-05-22 16:38] LABS: Appearance,Urine Clear (Clear); Bacteria,Urine Rare /hpf; Bilirubin,Urine Negative (Negative); Blood,Urine Negative (Negative); Color,Urine Light Yellow; Glucose,Urine (UA) Negative (Negative); Ketones,Urine Negative (Negative); Leukocyte Esterase,Urine Trace (Negative); Mucus,Urine Rare /hpf; Nitrite,Urine Negative (Negative); PH, Urine 5.5 (5.0-8.0); Protein,Urine Negative (Negative); RBC,Urine 2 /hpf (0-5); Specific Gravity,Urine 1.007 (1.001-1.035); Squamous Epithelial Cell,Urine <1 /hpf (0-4); Urobilinogen,Urine <2.0 mg/dL (<2.0); WBC,Urine 6 /hpf (0-5)
--- NOTE | 2018-05-22 16:57 | CT ---
EXAMINATION TYPE: CT brain wo con DATE OF EXAM: 05/22/2018 COMPARISON: 03/10/2016 HISTORY: Hypertension, dizziness and nausea. CT DLP: 1013 mGycm Automated exposure control for dose reduction was used. FINDINGS: There is cerebral cortical atrophy. There is a 4 cm area of hypodensity in the left posterior frontal lobe cortex consistent with old cortical infarct. There is no mass effect nor midline shift. There i s no sign of intracranial hemorrhage. There is hypodensity in the periventricular white matter. IMPRESSION: CEREBRAL ATROPHY. 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 SMALL VESSEL ISCHEMIA. CHRONIC LE FT MAXILLARY SINUSITIS NOTED WITH CALCIFICATION.
[2018-05-22 17:46] VITALS: RESP 16
[2018-05-22 18:46] VITALS: BP 164/75; PULSE 66
== END 2018-05-22 19:00 | disposition home or self-care (01) ==
LOC: EC 15:18
DX: I48.0 Paroxysmal atrial fibrillation (principal); I11.0 Hypertensive heart disease with heart failure; R42 Dizziness and giddiness; E86.0 Dehydration; I50.9 Heart failure, unspecified; E11.9 Type 2 diabetes mellitus without complications; K21.9 Gastro-esophageal reflux disease without esophagitis; I25.2 Old myocardial infarction; E07.9 Disorder of thyroid, unspecified; G47.30 Sleep apnea, unspecified; Z95.0 Presence of cardiac pacemaker; Z79.01 Long term (current) use of anticoagulants; Z79.84 Long term (current) use of oral hypoglycemic drugs; Z79.899 Other long term (current) drug therapy; Z88.5 Allergy status to narcotic agent; Z88.0 Allergy status to penicillin; Z88.2 Allergy status to sulfonamides
CPT/HCPCS: 36415; 70450; 80053; 81001; 82550; 82553; 83735; 84100; 84484; 85025; 85379; 85610; 85730; 87086; 93005; 96361; 96374; 99285

== ENCOUNTER 2018-08-01 15:04 | Emergency (ER) | payer MEDICARE ==
[2018-08-01 15:13] VITALS: TEMP 97.1
[2018-08-01] MEDS ORDERED: SODIUM CHLORIDE 0.9% 500 ML 500 ML IV ONE (15:36)
--- NOTE | 2018-08-01 15:40 | ED ---
Fall HPI <KendraDarren P - Last Filed: 08/01/18 18:22> - General Source: patient, EMS Mode of arrival: EMS <Derick Lawson - Last Filed: 08/02/18 01:28> - General Chief Complaint: Fall Stated Complaint: Facial Lac Time Seen by Provider: 08/01/18 15:21 - History of Present Illness Initial Comments: Patient is an 82-year-old female presenting for head trauma. The patient states that she is on [place] was for CHF in that just prior to arrival, she was outside checking her mail when she lost her balance falling forward hitting her face on the concrete. She is unsure whether she had loss of consciousness but she told EMS that she did not. She admits to some mild headache as well as some facial numbness that was originally but that has since resolved. She also denies any neck pain as well as back pain, chest pain, abdominal pain and states that she has not had any nausea or vomiting. She also states that she lives at home by herself but her daughter may be coming to live with her. ( Derick Lawson) - Related Data Home Medications Medication Instructions Recorded Confirmed Levothyroxine Sodium [Synthroid] 100 mcg PO DAILY 01/31/14 05/22/18 Apixaban [Eliquis] 2.5 mg PO BID 10/12/16 05/22/18 Flecainide [Tambocor] 50 mg PO BID 10/12/16 05/22/18 Multivitamins, Thera [Multivitamin 1 tab PO DAILY 12/10/16 05/22/18 (formulary)] Allopurinol [Zyloprim] 100 mg PO DAILY 01/18/17 05/22/18 Calcitriol [Rocaltrol] 0.25 mcg PO MOWEFR 01/18/17 05/22/18 Cholecalciferol [Vitamin D3] 4,000 unit PO DAILY 01/18/17 05/22/18 Atenolol [Tenormin] 50 mg PO BID 10/10/17 05/22/18 Glimepiride [Amaryl] 1 mg PO AC-BID 10/10/17 05/22/18 Losartan [Cozaar] 25 mg PO DAILY 10/10/17 05/22/18 Pantoprazole [Protonix] 40 mg PO DAILY 10/10/17 05/22/18 Spironolactone [Aldactone] 12.5 mg PO Q48H 10/10/17 05/22/18 Acetaminophen [Tylenol] 1,000 mg PO Q8H PRN 05/22/18 05/22/18 Previous Rx's Medication Instructions Recorded Simvastatin [Zocor] 20 mg PO HS #90 tab 12/13/16 Sodium Bicarbonate Tab 650 mg PO BID #60 tab 02/22/18 Doxycycline Monohydrate 150 mg PO BID 5 Days #10 tablet 08/01/18 Allergies Allergy/AdvReac Type Severity Reaction Status Date / Time meperidine HCl [From Demerol] Allergy Nausea & Verified 05/22/18 16:31 Vomiting Penicillins Allergy Rash/Hives Verified 05/22/18 16:31 Sulfa (Sulfonamide Allergy Rash/Hives Verified 05/22/18 16:31 Antibiotics) Review of Systems ROS Other: All systems not noted in ROS Statement are negative. <Darren Gardner P - Last Filed: 08/01/18 18:22> ROS Other: All systems not noted in ROS Statement are negative. <Derick Lawson - Last Filed: 08/02/18 01:28> ROS Statement: Those systems with pertinent positive or pertinent negative responses have been documented in the HPI. Constitutional: Negative for chills, fatigue and fever. HENT: Negative for congestion. Respiratory: Negative for chest tightness, shortness of breath and wheezing. Negative for cough Cardiovascular: Negative for chest pain and palpitations. Gastrointestinal: Negative for abdominal pain. Negative for abdominal distention , diarrhea, nausea and vomiting. Genitourinary: Negative for dysuria. Musculoskeletal: Negative for back pain, neck pain and neck stiffness. Positive for facial pain Skin: Positive for wound and color change Neurological: Negative for dizziness, speech difficulty, weakness and light- headedness. Psychiatric/Behavioral: Negative for agitation and confusion. Negative for anxiety (Derick Lawson) Past Medical History Past Medical History: Atrial Fibrillation, Heart Failure, Diabetes Mellitus, GERD/Reflux, Hyperlipidemia, Hypertension, Myocardial Infarction ([place]), Sleep Apnea/CPAP/BIPAP, Thyroid Disorder Additional Past Medical History / Comment(s): uti's,PALPITATIONS, patient states kidney function tests are not normal and see saw Dr Child about it. Uses CPAP machine. Sick Sinus Syndrome with pacemaker, chronic afib Last Myocardial Infarction Date:: 32 years ago History of Any Multi-Drug Resistant Organisms: ESBL Date of last positivie culture/infection: 07/03/18 ESBL E.coli MDRO Source:: URINE Past Surgical History: Hysterectomy, Pacemaker Additional Past Surgical History / Comment(s): hemmorrhoidectomy/rectocele/ cystocele, cataracts,. vein stripping Past Anesthesia/Blood Transfusion Reactions: No Reported Reaction Type of Cardiac Device: Permanent Pacemaker Device Placement Date:: 01/2017 Past Psychological History: No Psychological Hx Reported Smoking Status: Never smoker Past Alcohol Use History: None Reported Past Drug Use History: None Reported - Past Family History Father Family Medical History: Coronary Artery Disease (CAD), Hyperlipidemia, Hypertension, Myocardial Infarction ([place]) Mother Family Medical History: Unable to Obtain Sister(s) Family Medical History: Cancer <Derick Lawson - Last Filed: 08/02/18 01:28> General Exam <Darren Gardner - Last Filed: 08/01/18 18:22> Limitations: no limitations <Derick Lawson M - Last Filed: 08/02/18 01:28> - General Exam Comments Initial Comments: Constitutional: Pt is oriented to person, place, and time. Pt appears well- developed and well-nourished. No distress. HENT: Head: Normocephalic and overlying abrasions of the nasal bridge with raccoon eyes on the right.. Eyes: EOM are normal. Neck: Normal range of motion. Neck supple. Cardiovascular: Normal rate, regular rhythm, S1 normal, S2 normal and normal heart sounds. Exam reveals no gallop and no friction rub. No murmur heard. Pulmonary/Chest: Effort normal and breath sounds normal. No tachypnea and no bradypnea. No respiratory distress. No wheezes or rales noted. Abdominal: Soft. Bowel sounds are normal. Pt exhibits no shifting dullness, no distension, no pulsatile liver, no fluid wave, no abdominal bruit and no ascites. There is no tenderness. There is no rigidity, no rebound, no guarding, no tenderness at McBurney's point and negative Dudley's sign. Musculoskeletal: Normal range of motion. No tenderness to C-spine, T-spine, L- spine. Full range of motion of the lower extremities with 5 out of 5 muscle strength. No tenderness or pelvic instability Neurological: Pt is alert and oriented to person, place, and time. No cranial nerve deficit. Skin: Skin is warm and dry. No rash noted. Pt is not diaphoretic. No erythema. No pallor. 2 cm laceration above the right eye along eyebrow Psychiatric: Pt has a normal mood and affect. Pt behavior is normal. Thought content normal. (Derick Lawson) Vital Signs 08/01/18 08/01/18 15:06 19:35 Temperature 97.1 F L Pulse Rate 70 63 Respiratory 18 16 Rate Blood Pressure 169/76 166/69 O2 Sat by Pulse 97 99 Oximetry Procedures - Laceration Laceration #1 Consent Obtained: verbal consent Indication: laceration Site: face Size (cm): 2 Description: linear Depth: simple, single layer Anesthetic Used: lidocaine 1% Anesthesia Technique: local infiltration Amount (mls): 2 Pre-repair: wound explored, irrigated extensively Type of Sutures: vicryl Size of Sutures: 5-0 Number of Sutures: 5 Technique: simple, interrupted Patient Tolerated Procedure: well, no complications <Darren Gardner P - Last Filed: 08/01/18 18:22> Medical Decision Making - Lab Data Result diagrams: 08/01/18 15:55 08/01/18 15:55 <Darren Gardner - Last Filed: 08/01/18 18:22> - Lab Data Result diagrams: 08/01/18 15:55 08/01/18 15:55 <Derick Lawson - Last Filed: 08/02/18 01:28> - Medical Decision Making CT of the head and neck was performed and showed no evidence of acute pathology. However, CT of the face showed a minimally displaced left nasal bone fracture with soft tissue swelling. Results were communicated to the patient and her family and option of transfer to traumatic Center were observation could be performed overnight was offered but they currently declined and stated that because she does have a good social support network, the patient could be discharged home and that they would watch the patient appropriately.Explained all labs and diagnostic test results and that we will discharge the patient home and patient is to follow up with PCP in 1-2 days and return to the ED if symptoms worsen. Pt is agreeable to plan. (Derick Lawson) - Lab Data Lab Results 08/01/18 08/01/18 08/01/18 Range/Units 15:55 15:55 15:55 WBC 7.6 (3.8-10.6) k/uL RBC 3.50 L (3.80-5.40) m/uL Hgb 11.4 (11.4-16.0) gm/dL Hct 34.2 (34.0-46.0) % MCV 97.8 (80.0-100.0) fL MCH 32.6 (25.0-35.0) pg MCHC 33.3 (31.0-37.0) g/dL RDW 14.1 (11.5-15.5) % Plt Count 174 (150-450) k/uL Neutrophils % 78 % Lymphocytes % 14 % Monocytes % 4 % Eosinophils % 2 % Basophils % 0 % Neutrophils # 6.0 (1.3-7.7) k/uL Lymphocytes # 1.0 (1.0-4.8) k/uL Monocytes # 0.3 (0-1.0) k/uL Eosinophils # 0.2 (0-0.7) k/uL Basophils # 0.0 (0-0.2) k/uL PT 9.6 (9.0-12.0) sec INR 1.0 (<1.2) APTT 22.8 (22.0-30.0) sec Sodium 143 (137-145) mmol/L Potassium 4.6 (3.5-5.1) mmol/L Chloride 107 (98-107) mmol/L Carbon Dioxide 24 (22-30) mmol/L Anion Gap 12 mmol/L BUN 75 H (7-17) mg/dL Creatinine 2.44 H (0.52-1.04) mg/dL Est GFR (CKD-EPI)AfAm 20 (>60 ml/min/1.73 sqM) Est GFR (CKD-EPI)NonAf 18 (>60 ml/min/1.73 sqM) Glucose 122 H (74-99) mg/dL Calcium 9.3 (8.4-10.2) mg/dL Disposition <Darren Gardner - Last Filed: 08/01/18 18:22> Is patient prescribed a controlled substance at d/c from ED?: No Time of Disposition: 18:35 <Derick Lawson - Last Filed: 08/02/18 01:28> Clinical Impression: Nasal fracture, Head trauma Disposition: HOME SELF-CARE Condition: Good Instructions: Fall Prevention for Older Adults (ED) Prescriptions: Doxycycline Monohydrate 150 mg PO BID 5 Days #10 tablet Referrals: Phil Blood MD [Primary Care Provider] - 1-2 days Akshat Farfan MD [STAFF PHYSICIAN] - 1-2 days
[2018-08-01 16:17] LABS: Basophils % (A) 0 %; Eosinophils # (A) 0.2 k/uL (0-0.7); Eosinophils % (A) 2 %; HCT 34.2 % (34.0-46.0); HGB 11.4 gm/dL (11.4-16.0); Lymphocytes % (A) 14 %; MCH 32.6 pg (25.0-35.0); MCHC 33.3 g/dL (31.0-37.0); MCV 97.8 fL (80.0-100.0); Mean Platelet Volume 7.8; Monocytes # (A) 0.3 k/uL (0-1.0); Monocytes % (A) 4 %; Neutrophils % (A) 78 %; Platelet Count 174 k/uL (150-450); RDW 14.1 % (11.5-15.5); WBC 7.6 k/uL (3.8-10.6)
[2018-08-01 16:26] LABS: Partial Thromboplastin Time 22.8 sec (22.0-30.0); Prothrombin Time 9.6 sec (9.0-12.0)
--- NOTE | 2018-08-01 16:31 | CT ---
EXAMINATION TYPE: CT brain moshe garibay con DATE OF EXAM: 08/01/2018 COMPARISON: NONE HISTORY: Facial lacerations after fall injury CT DLP: 1775.2 mGycm. Automated Exposure Control for Dose Reduction was Utilized. TECHNIQUE: CT scan of the head and cervical spine are performed without contrast. FINDINGS: There is no acute intracranial hemorrhage, mass effect, or midline shift identified. Andrea te ischemic injury in the left frontal lobe. The ventricles and sulci are within normal limits in si ze. Cervical spine is visualized in its entirety from C1 through upper thoracic levels and demonstrates s atisfactory alignment without evidence of acute fracture or dislocation. Prevertebral soft tissue ap pears within normal limits. The C1-C2 articulation is unremarkable. IMPRESSION: 1. There is no acute fracture or dislocation evident in the cervical spine. 2. No acute intracranial hemorrhage, mass effect, or midline shift is seen. 3. Please refer to the concurrently performed CT of the facial bones for further findings.
[2018-08-01 16:33] LABS: Calcium 9.3 mg/dL (8.4-10.2); Potassium 4.6 mmol/L (3.5-5.1)
--- NOTE | 2018-08-01 16:36 | CT ---
EXAMINATION TYPE: CT facial bones wo con DATE OF EXAM: 08/01/2018 COMPARISON: NONE HISTORY: Facial lacerations after fall injury CT DLP: 1775.2 mGycm. Automated Exposure Control for Dose Reduction was Utilized. TECHNIQUE: CT scan of the sinuses is performed without contrast, axial images are obtained, coronal r eformatted images are also reviewed. FINDINGS: Repairer Controller Tester image reveals the presence of a dual-lead pacemaker. Soft tissue swelling is seen in the right periorbital region as well as near the nasal bridge. There is a minimally displaced fracture of the left nasal bone. The globes are intact. There is minimal right-sided preseptal soft tissue swelling. The bony orbits a re intact. Visualized portion of the mandible are unremarkable. The bilateral maxillary bones are int act. There is mucoperiosteal reaction with mucosal thickening and high density material within the left ma xillary sinus favored to represent chronic sinusitis. IMPRESSION: 1. Minimally displaced left nasal bone fracture. 2. Periorbital and right frontal scalp region soft tissue swelling/laceration. 3. Chronic left maxillary sinusitis with associated mucoperiosteal thickening.
--- NOTE | 2018-08-01 16:39 | XR ---
EXAMINATION TYPE: XR pelvis AP view DATE OF EXAM: 08/01/2018 CLINICAL HISTORY: Fall, pain TECHNIQUE: A single AP view of the pelvis is obtained. COMPARISON: None. FINDINGS: There is no acute fracture/dislocation evident in the pelvis. The hip and sacroiliac join ts appear symmetric.The overlying soft tissue appears unremarkable. IMPRESSION: There is no acute fracture or dislocation in the pelvis.
--- NOTE | 2018-08-01 16:41 | XR ---
EXAMINATION TYPE: XR chest 2V DATE OF EXAM: 08/01/2018 COMPARISON: Chest radiograph 02/19/2018 HISTORY: Fall, pain TECHNIQUE: Frontal and lateral views of the chest are obtained. FINDINGS: Trilead cardiac conduction device is present. The heart is enlarged but unchanged in the i nterval. No focal airspace opacity. No pleural effusion or pneumothorax. Osseous structures appear in tact. Multilevel degenerative changes of the spine and shoulders. IMPRESSION: No acute cardiopulmonary process. No evidence of a fracture.
[2018-08-01] MEDS ORDERED: LIDOCAINE (PF) 10 MG/ML 2 ML VIAL SQ STA (17:04)
[2018-08-01] MEDS ORDERED: LIDOCAINE 1%-EPI 1:100,000 20 ML VIAL SUBMUCOSAL STA (17:04)
[2018-08-01 19:36] VITALS: BP 166/69; PULSE 63; RESP 16
== END 2018-08-01 19:30 | disposition home or self-care (01) ==
LOC: EC 15:04
DX: S02.2XXA Fracture of nasal bones, initial encounter for closed fracture (principal); S05.31XA Ocular laceration without prolapse or loss of intraocular tissue, right eye, initial encounter; S01.111A Laceration without foreign body of right eyelid and periocular area, initial encounter; I48.91 Unspecified atrial fibrillation; I11.0 Hypertensive heart disease with heart failure; I50.9 Heart failure, unspecified; E11.9 Type 2 diabetes mellitus without complications; K21.9 Gastro-esophageal reflux disease without esophagitis; E78.5 Hyperlipidemia, unspecified; I25.2 Old myocardial infarction; E07.9 Disorder of thyroid, unspecified; G47.30 Sleep apnea, unspecified; Z79.84 Long term (current) use of oral hypoglycemic drugs; Z79.01 Long term (current) use of anticoagulants; Z79.899 Other long term (current) drug therapy; Z88.0 Allergy status to penicillin; Z88.2 Allergy status to sulfonamides; Z88.5 Allergy status to narcotic agent; Z95.0 Presence of cardiac pacemaker; Z53.8 Procedure and treatment not carried out for other reasons; W18.09XA Striking against other object with subsequent fall, initial encounter; Y93.01 Activity, walking, marching and hiking
CPT/HCPCS: 12011; 36415; 70450; 70486; 71046; 72125; 72170; 80048; 85025; 85610; 85730; 99284

== ENCOUNTER 2018-11-20 12:04 | Emergency (ER) | payer MEDICARE ==
--- NOTE | 2018-11-20 12:37 | ED ---
General Adult HPI - General Chief complaint: Shortness of Breath Stated complaint: SOB Time Seen by Provider: 11/20/18 12:18 Source: patient Mode of arrival: wheelchair Limitations: no limitations - History of Present Illness Initial comments: Dictation was produced using [employer] dictation software. please excuse any grammatical, word or spelling errors. Chief Complaint: 83-year-old female with past medical history of H or for ablation, heart failure, hypertension, CHF presents with shortness of breath and weight gain. History of Present Illness: 83-year-old female she presents with chief complaint of shortness of breath and weight gain. For the past week she's been feeling progressively short of breath. She does have a history of congestive heart failure. Patient is on a liquid is for atrial fibrillation. She reports that she has recent weight gain of approximately 4 pounds. She was instructed by cardiology to come to the emergency Department with anything more than 2 pounds of weight gain. Patient denies any excessive sodium ingestion recently. Denies any pain complaints. Denies any worsening of dyspnea with supine position. She is accompanied by her daughter. The ROS documented in this emergency department record has been reviewed and confirmed by me. Those systems with pertinent positive or negative responses have been documented in the HPI. All other systems are other negative and/or noncontributory. PHYSICAL EXAM: General Impression: Alert and oriented x3, not in acute distress HEENT: Normocephalic atraumatic, extra-ocular movements intact, pupils equal and reactive to light bilaterally, mucous membranes moist. Cardiovascular: Heart regular rate and rhythm, S1&S2 audible, no murmurs, rubs or gallops Chest: Lungs clear to auscultation bilaterally, no rhonchi, no wheeze, no rales Abdomen: Bowel sounds present, abdomen soft, non-tender, non-distended, no organomegaly Musculoskeletal: Pulses present and equal in all extremities, 1+ pitting edema Motor: no focal deficits noted Neurological: CN II-XII grossly intact, no focal motor or sensory deficits noted Skin: Intact with no visualized rashes Psych: Normal affect and mood ED course: 83 yo female presents with chief complaint of dyspnea 7 days. Upon arrival are within acceptable limits. Patient is in no acute distress. He shows that patient had an echocardiogram October last year most recently according to her notes. Laboratory evaluation obtained. CBC unremarkable. Metabolic panel shows creatinine of 2.41 which is around patient's baseline. Patient has negative troponin. Prematurity peptide is 4000. This is slightly elevated compared to recent prematurity peptide urinalysis is unremarkable. Chest x-rays unremarkable. Patient is well-appearing at this time. Clinical presentation consistent with mild CHF exacerbation. Patient is not hypoxic and rest of vital signs are unremarkable. Patient given 40 mg of IV Lasix. Patient clear for discharge. She is counseled on fluid restriction and withholding any salty foods. Patient does have a appointment with her primary care physician early next week. Patient amenable for discharge. She is told to return to emergency Department with any worsening symptoms. EKG interpretation: Ventricular rate 60, AV dual paced rhythm, AL interval 186, QS 190, QTC 498. No AL prolongation, no QTC prolongation, no ST or T-wave changes noted. Overall, this EKG is unremarkable - Related Data Home Medications Medication Instructions Recorded Confirmed Levothyroxine Sodium [Synthroid] 100 mcg PO DAILY 01/31/14 11/20/18 Apixaban [Eliquis] 2.5 mg PO BID 10/12/16 11/20/18 Flecainide [Tambocor] 50 mg PO BID 10/12/16 11/20/18 Multivitamins, Thera [Multivitamin 1 tab PO DAILY 12/10/16 11/20/18 (formulary)] Allopurinol [Zyloprim] 100 mg PO DAILY 01/18/17 11/20/18 Calcitriol [Rocaltrol] 0.25 mcg PO MOWEFR 01/18/17 11/20/18 Cholecalciferol [Vitamin D3] 4,000 unit PO DAILY 01/18/17 11/20/18 Atenolol [Tenormin] 50 mg PO BID 10/10/17 11/20/18 Glimepiride [Amaryl] 1 mg PO AC-BID 10/10/17 11/20/18 Losartan [Cozaar] 25 mg PO DAILY 10/10/17 11/20/18 Pantoprazole [Protonix] 40 mg PO DAILY 10/10/17 11/20/18 Spironolactone [Aldactone] 12.5 mg PO DAILY 10/10/17 11/20/18 Acetaminophen [Tylenol] 1,000 mg PO Q8H PRN 05/22/18 11/20/18 Torsemide [Demadex] 10 mg PO BID@0700,1300 11/20/18 11/20/18 Previous Rx's Medication Instructions Recorded Simvastatin [Zocor] 20 mg PO HS #90 tab 12/13/16 Sodium Bicarbonate Tab 650 mg PO BID #60 tab 02/22/18 Allergies Allergy/AdvReac Type Severity Reaction Status Date / Time meperidine HCl [From Demerol] Allergy Nausea & Verified 11/20/18 13:03 Vomiting Penicillins Allergy Rash/Hives Verified 11/20/18 13:03 Sulfa (Sulfonamide Allergy Rash/Hives Verified 11/20/18 13:03 Antibiotics) Review of Systems ROS Statement: Those systems with pertinent positive or pertinent negative responses have been documented in the HPI. ROS Other: All systems not noted in ROS Statement are negative. Past Medical History Past Medical History: Atrial Fibrillation, Heart Failure, Diabetes Mellitus, GERD/Reflux, Hyperlipidemia, Hypertension, Myocardial Infarction ([place]), Sleep Apnea/CPAP/BIPAP, Thyroid Disorder Additional Past Medical History / Comment(s): uti's,PALPITATIONS, patient states kidney function tests are not normal and see saw Dr Child about it. Uses CPAP machine. Sick Sinus Syndrome with pacemaker, chronic afib Last Myocardial Infarction Date:: 32 years ago History of Any Multi-Drug Resistant Organisms: ESBL Date of last positivie culture/infection: 07/03/18 ESBL E.coli MDRO Source:: URINE Past Surgical History: Hysterectomy, Pacemaker Additional Past Surgical History / Comment(s): hemmorrhoidectomy/rectocele/cystocele, cataracts,. vein stripping Past Anesthesia/Blood Transfusion Reactions: No Reported Reaction Type of Cardiac Device: Permanent Pacemaker Device Placement Date:: 01/2017 Past Psychological History: No Psychological Hx Reported Smoking Status: Never smoker Past Alcohol Use History: None Reported Past Drug Use History: None Reported - Past Family History Father Family Medical History: Coronary Artery Disease (CAD), Hyperlipidemia, Hypertension, Myocardial Infarction ([place]) Mother Family Medical History: Unable to Obtain Sister(s) Family Medical History: Cancer General Exam Limitations: no limitations Course Vital Signs 11/20/18 11/20/18 12:09 14:08 Temperature 97.4 F L Pulse Rate 60 60 Respiratory 16 18 Rate Blood Pressure 177/71 139/75 O2 Sat by Pulse 98 96 Oximetry Medical Decision Making - Lab Data Result diagrams: 11/20/18 12:40 11/20/18 12:40 Lab Results 11/20/18 11/20/18 11/20/18 Range/Units 12:40 12:40 12:40 WBC 7.0 (3.8-10.6) k/uL RBC 3.45 L (3.80-5.40) m/uL Hgb 11.2 L (11.4-16.0) gm/dL Hct 34.6 (34.0-46.0) % MCV 100.4 H (80.0-100.0) fL MCH 32.5 (25.0-35.0) pg MCHC 32.4 (31.0-37.0) g/dL RDW 13.6 (11.5-15.5) % Plt Count 166 (150-450) k/uL Neutrophils % 67 % Lymphocytes % 23 % Monocytes % 5 % Eosinophils % 3 % Basophils % 1 % Neutrophils # 4.7 (1.3-7.7) k/uL Lymphocytes # 1.6 (1.0-4.8) k/uL Monocytes # 0.4 (0-1.0) k/uL Eosinophils # 0.2 (0-0.7) k/uL Basophils # 0.0 (0-0.2) k/uL Macrocytosis Slight PT (9.0-12.0) sec INR (<1.2) APTT (22.0-30.0) sec Sodium 140 (137-145) mmol/L Potassium 5.1 (3.5-5.1) mmol/L Chloride 108 H (98-107) mmol/L Carbon Dioxide 23 (22-30) mmol/L Anion Gap 9 mmol/L BUN 76 H (7-17) mg/dL Creatinine 2.41 H (0.52-1.04) mg/dL Est GFR (CKD-EPI)AfAm 21 (>60 ml/min/1.73 sqM) Est GFR (CKD-EPI)NonAf 18 (>60 ml/min/1.73 sqM) Glucose 142 H (74-99) mg/dL Calcium 9.4 (8.4-10.2) mg/dL Magnesium 2.0 (1.6-2.3) mg/dL Total Bilirubin 0.4 (0.2-1.3) mg/dL AST 18 (14-36) U/L ALT 19 (9-52) U/L Alkaline Phosphatase 110 (38-126) U/L Troponin I (0.000-0.034) ng/mL NT-Pro-B Natriuret Pep 4090 pg/mL Total Protein 6.4 (6.3-8.2) g/dL Albumin 3.8 (3.5-5.0) g/dL Urine Color Urine Appearance (Clear) Urine pH (5.0-8.0) Ur Specific [place] (1.001-1.035) Urine Protein (Negative) Urine Glucose (UA) (Negative) Urine Ketones (Negative) Urine Blood (Negative) Urine Nitrite (Negative) Urine Bilirubin (Negative) Urine Urobilinogen (<2.0) mg/dL Ur Leukocyte Esterase (Negative) Urine RBC (0-5) /hpf Urine Bacteria (None) /hpf Urine Mucus (None) /hpf 11/20/18 11/20/18 11/20/18 Range/Units 12:40 12:40 14:00 WBC (3.8-10.6) k/uL RBC (3.80-5.40) m/uL Hgb (11.4-16.0) gm/dL Hct (34.0-46.0) % MCV (80.0-100.0) fL MCH (25.0-35.0) pg MCHC (31.0-37.0) g/dL RDW (11.5-15.5) % Plt Count (150-450) k/uL Neutrophils % % Lymphocytes % % Monocytes % % Eosinophils % % Basophils % % Neutrophils # (1.3-7.7) k/uL Lymphocytes # (1.0-4.8) k/uL Monocytes # (0-1.0) k/uL Eosinophils # (0-0.7) k/uL Basophils # (0-0.2) k/uL Macrocytosis PT 9.7 (9.0-12.0) sec INR 0.9 (<1.2) APTT 23.5 (22.0-30.0) sec Sodium (137-145) mmol/L Potassium (3.5-5.1) mmol/L Chloride (98-107) mmol/L Carbon Dioxide (22-30) mmol/L Anion Gap mmol/L BUN (7-17) mg/dL Creatinine (0.52-1.04) mg/dL Est GFR (CKD-EPI)AfAm (>60 ml/min/1.73 sqM) Est GFR (CKD-EPI)NonAf (>60 ml/min/1.73 sqM) Glucose (74-99) mg/dL Calcium (8.4-10.2) mg/dL Magnesium (1.6-2.3) mg/dL Total Bilirubin (0.2-1.3) mg/dL AST (14-36) U/L ALT (9-52) U/L Alkaline Phosphatase (38-126) U/L Troponin I <0.012 (0.000-0.034) ng/mL NT-Pro-B Natriuret Pep pg/mL Total Protein (6.3-8.2) g/dL Albumin (3.5-5.0) g/dL Urine Color Light Yellow Urine Appearance Clear (Clear) Urine pH 6.5 (5.0-8.0) Ur Specific [place] 1.008 (1.001-1.035) Urine Protein Trace H (Negative) Urine Glucose (UA) Negative (Negative) Urine Ketones Negative (Negative) Urine Blood Negative (Negative) Urine Nitrite Negative (Negative) Urine Bilirubin Negative (Negative) Urine Urobilinogen <2.0 (<2.0) mg/dL Ur Leukocyte Esterase Large H (Negative) Urine RBC 1 (0-5) /hpf Urine Bacteria Occasional H (None) /hpf Urine Mucus Rare H (None) /hpf Disposition Clinical Impression: Congestive heart disease Disposition: HOME SELF-CARE Condition: Good Instructions (If sedation given, give patient instructions): Heart Failure (ER) Is patient prescribed a controlled substance at d/c from ED?: No Referrals: Phil Blood MD [Primary Care Provider] - 1-2 days Time of Disposition: 14:52
[2018-11-20 12:55] LABS: Basophils % (A) 1 %; Eosinophils # (A) 0.2 k/uL (0-0.7); Eosinophils % (A) 3 %; HCT 34.6 % (34.0-46.0); HGB 11.2 gm/dL (11.4-16.0); Lymphocytes # (A) 1.6 k/uL (1.0-4.8); Lymphocytes % (A) 23 %; MCH 32.5 pg (25.0-35.0); MCHC 32.4 g/dL (31.0-37.0); MCV 100.4 fL (80.0-100.0); Macrocytosis Slight; Mean Platelet Volume 7.8; Monocytes # (A) 0.4 k/uL (0-1.0); Monocytes % (A) 5 %; Neutrophils # (A) 4.7 k/uL (1.3-7.7); Neutrophils % (A) 67 %; Platelet Count 166 k/uL (150-450); RBC 3.45 m/uL (3.80-5.40); RDW 13.6 % (11.5-15.5)
[2018-11-20 12:59] LABS: INR 0.9 (<1.2); Partial Thromboplastin Time 23.5 sec (22.0-30.0); Prothrombin Time 9.7 sec (9.0-12.0)
[2018-11-20 13:04] LABS: Albumin 3.8 g/dL (3.5-5.0); Calcium 9.4 mg/dL (8.4-10.2); Potassium 5.1 mmol/L (3.5-5.1); Total Bilirubin 0.4 mg/dL (0.2-1.3); Total Protein 6.4 g/dL (6.3-8.2)
--- NOTE | 2018-11-20 13:30 | XR ---
EXAMINATION TYPE: XR chest 2V DATE OF EXAM: 11/20/2018 COMPARISON: Chest x-ray August 01, 2018 HISTORY: Shortness of breath and weight gain. TECHNIQUE: Frontal and lateral views of the chest are obtained. FINDINGS: There is chronic parenchymal change without suspicious focal air space opacity, pleural ef fusion, or pneumothorax seen. The cardiac silhouette size is enlarged with multi lead pacemaker. T he osseous structures are demineralized. IMPRESSION: Chronic changes and cardiomegaly without acute pulmonary process. No significant change from prior.
[2018-11-20 14:09] VITALS: RESP 18
[2018-11-20] MEDS ORDERED: FUROSEMIDE 10 MG/ML 4 ML VIAL IV STA (14:09)
[2018-11-20 14:28] LABS: Appearance,Urine Clear (Clear); Bacteria,Urine Occasional /hpf; Bilirubin,Urine Negative (Negative); Blood,Urine Negative (Negative); Color,Urine Light Yellow; Glucose,Urine (UA) Negative (Negative); Ketones,Urine Negative (Negative); Leukocyte Esterase,Urine Large (Negative); Mucus,Urine Rare /hpf; Nitrite,Urine Negative (Negative); PH, Urine 6.5 (5.0-8.0); Protein,Urine Trace (Negative); RBC,Urine 1 /hpf (0-5); Specific Gravity,Urine 1.008 (1.001-1.035); Urobilinogen,Urine <2.0 mg/dL (<2.0)
[2018-11-20 15:12] VITALS: BP 156/76; PULSE 66; TEMP 97.8
== END 2018-11-20 15:16 | disposition home or self-care (01) ==
LOC: EC 12:04
DX: I50.9 Heart failure, unspecified (principal); R82.998 Other abnormal findings in urine; I11.0 Hypertensive heart disease with heart failure; I48.2 Chronic atrial fibrillation; E11.9 Type 2 diabetes mellitus without complications; E78.5 Hyperlipidemia, unspecified; I25.2 Old myocardial infarction; E07.9 Disorder of thyroid, unspecified; K21.9 Gastro-esophageal reflux disease without esophagitis; G47.30 Sleep apnea, unspecified; I49.5 Sick sinus syndrome; Z88.0 Allergy status to penicillin; Z88.2 Allergy status to sulfonamides; Z88.5 Allergy status to narcotic agent; Z79.01 Long term (current) use of anticoagulants; Z79.84 Long term (current) use of oral hypoglycemic drugs; Z79.890 Hormone replacement therapy; Z79.899 Other long term (current) drug therapy; Z95.0 Presence of cardiac pacemaker; Z99.89 Dependence on other enabling machines and devices; Z82.49 Family history of ischemic heart disease and other diseases of the circulatory system
CPT/HCPCS: 36415; 93005; 83880; 80053; 83735; 84484; 85025; 85610; 85730; 81001; 87086; 87077; 87186; 71046; 99285; 96374; J1940

== ENCOUNTER → 2019-04-01 | Outpatient (CLI) | payer MEDICARE ==
--- NOTE | 2019-04-01 14:09 | SFUN ---
SLEEP CENTER FOLLOW UP NOTE DATE OF SERVICE: 04/01/2019 An 83-year-old lady has been followed in the Sleep Center for treatment of obstructive sleep apnea-hypopnea syndrome. The patient continued to use her BiPAP equipment every night for the whole night without any significant problems. No snoring with the machine. [place] Sleepiness Scale slightly increased to 12. Patient explained that she was recently diagnosed with some kidney problems and CHF and she may go for treatment on dialysis. I checked her BiPAP unit, BiPAP pressure 12/8 cm of water. Usage is every night 100% of the time with average usage 8.7 hours per night. Leak only 1 L/minute which is perfect. Apnea-hypopnea index is only 1.1, which is also perfect. MEDICATIONS: Furosemide, sodium bicarb, atenolol, acetaminophen, simvastatin, Aldactone, glimepiride, pantoprazole, Tambocor, Eliquis, multivitamins, levothyroxine, allopurinol, calcitriol, vitamin D. PHYSICAL EXAM: Patient in no distress, BP 151/58, HR 60, RR 16, height 5 foot, 3 inches, weight 222 pounds which is 9 pounds more than during the last year, body mass index 39.3, temperature 96.9, oxygen saturation at room air 100%. ABDOMEN: Slightly obese. EXTREMITIES: 1+ ankle edema. IMPRESSION: 1. Obstructive sleep apnea-hypopnea syndrome. Patient demonstrated 100% compliance with treatment. Normal aspiration on treatment, benefitting from treatment. 2. Obesity. 3. Diabetes mellitus. 4. End-stage renal disease, according to patient. 5. Hypertension. 6. History of cardiac arrhythmias, status post permanent pacemaker insertion. 7. History of congestive heart failure. 8. Hypothyroidism. 9. Acid reflux. 10.Gout. 11.Hyperlipidemia. PLAN: 1. Patient will continue treatment with BiPAP every night for the whole night. 2. Watching and losing weight. 3. Sleep hygiene with regular time in bed for at least 7 or 8 hours. 4. No driving if feeling sleepiness. 5. Prescription for all necessary BiPAP supplies. Thank you very much for allowing me to participate in the management of your patient. Sincerely, Celio Islas MD, PhD, FAASM Diplomat of [place] [place] [employer] Certified [facility] [place] MMODL / IJN: [id number] /
== END | disposition home or self-care (01) ==

== ENCOUNTER 2019-05-26 19:21 | Observation (INO) | payer MEDICARE ==
[2019-05-26 21:14] LABS: Albumin 4.1 g/dL (3.5-5.0); Calcium 9.4 mg/dL (8.4-10.2); Potassium 4.8 mmol/L (3.5-5.1); Total Bilirubin 0.3 mg/dL (0.2-1.3); Total Protein 6.8 g/dL (6.3-8.2)
[2019-05-26 21:17] LABS: Appearance,Urine Clear (Clear); Bilirubin,Urine Negative (Negative); Blood,Urine Negative (Negative); Color,Urine Light Yellow; Glucose,Urine (UA) Negative (Negative); Ketones,Urine Negative (Negative); Leukocyte Esterase,Urine Moderate (Negative); Nitrite,Urine Negative (Negative); PH, Urine 6.5 (5.0-8.0); Protein,Urine 1+ (Negative); RBC,Urine <1 /hpf (0-5); Specific Gravity,Urine 1.012 (1.001-1.035); Squamous Epithelial Cell,Urine 1 /hpf (0-4); Urobilinogen,Urine <2.0 mg/dL (<2.0)
[2019-05-26 21:17] LABS: INR 0.9 (<1.2); Partial Thromboplastin Time 24.9 sec (22.0-30.0); Prothrombin Time 9.7 sec (9.0-12.0)
--- NOTE | 2019-05-26 21:24 | XR ---
EXAMINATION TYPE: XR chest 2V DATE OF EXAM: 05/26/2019 COMPARISON: 11/20/2018 HISTORY: Difficulty breathing TECHNIQUE: Frontal and lateral views of the chest are obtained. FINDINGS: There is an enlarged cardiomediastinal silhouette. Minimal interstitial pulmonary edema is seen. Central pulmonary vascular congestion is noted. Multilead left-sided cardiac device is present . No sizable pleural effusion or pneumothorax. Diffuse osseous demineralization is present. IMPRESSION: Mild fluid overload decompensated favoring congestive heart failure
[2019-05-26 21:47] LABS: Basophils % (A) 1 %; Eosinophils % (A) 2 %; HCT 34.3 % (34.0-46.0); HGB 11.7 gm/dL (11.4-16.0); Lymphocytes # (A) 1.6 k/uL (1.0-4.8); Lymphocytes % (A) 20 %; MCHC 34.2 g/dL (31.0-37.0); MCV 96.3 fL (80.0-100.0); Mean Platelet Volume 8.8; Monocytes # (A) 0.6 k/uL (0-1.0); Monocytes % (A) 7 %; Neutrophils # (A) 5.7 k/uL (1.3-7.7); Neutrophils % (A) 67 %; Platelet Count 171 k/uL (150-450); RBC 3.56 m/uL (3.80-5.40); RDW 15.5 % (11.5-15.5); WBC 8.4 k/uL (3.8-10.6)
[2019-05-26 21:48] LABS: Basophils # (A) 0.1 k/uL (0-0.2); Eosinophils # (A) 0.2 k/uL (0-0.7)
[2019-05-26] MEDS ORDERED: FUROSEMIDE 10 MG/ML 4 ML VIAL IV STA (22:58)
[2019-05-26] MEDS ORDERED: NALOXONE 0.4 MG/ML 1 ML VIAL IV PRN (22:59)
--- NOTE | 2019-05-26 22:59 | ED ---
SOB HPI - General Chief Complaint: Shortness of Breath Stated Complaint: SOB, Weight Gain Time Seen by Provider: 05/26/19 19:40 Source: patient Mode of arrival: wheelchair Limitations: no limitations - History of Present Illness Initial Comments: The patient is an 83-year-old female with past medical history of congestive heart failure who presents to the emergency room with reported shortness of breath. She states that over the past several days she has gained 7 pounds. She also reports to a decrease in the amount of urination. She does have a h istory of stage IV chronic kidney disease. She is on torsemide 20 mg daily. States that she did take an extra dose yesterday and today however she has had minimal urination. She reports to significant or extremity edema. Daughter is at bedside and states that the patient has been unable to walk across a room without getting short of breath. Also reports that she's been wheezing. The patient denies any chest pain, diaphoresis, nausea or vomiting. No recent fevers or chills. Denies a productive cough. No hemoptysis. No vomiting or tearing sensation to her back. Does report to a history of DVT after vein stripping. She is on Eliquis. Denies missing any doses. There are no other al leviating, precipitating or modifying factors - Related Data Home Medications Medication Instructions Recorded Confirmed Levothyroxine Sodium [Synthroid] 100 mcg PO DAILY 01/31/14 05/26/19 Apixaban [Eliquis] 2.5 mg PO BID 10/12/16 05/26/19 Flecainide [Tambocor] 50 mg PO BID 10/12/16 05/26/19 Multivitamins, Thera [Multivitamin 1 tab PO DAILY 12/10/16 05/26/19 (formulary)] Allopurinol [Zyloprim] 100 mg PO DAILY 01/18/17 05/26/19 Calcitriol [Rocaltrol] 0.25 mcg PO MOWEFR 01/18/17 05/26/19 Atenolol [Tenormin] 50 mg PO BID 10/10/17 05/26/19 Glimepiride [Amaryl] 1 mg PO AC-BID 10/10/17 05/26/19 Spironolactone [Aldactone] 12.5 mg PO DAILY 10/10/17 05/26/19 Acetaminophen [Tylenol] 1,000 mg PO Q8H PRN 05/22/18 05/26/19 Torsemide [Demadex] 20 mg PO DAILY 11/20/18 05/26/19 Cholecalciferol (Vitamin D3) 4,000 unit PO DAILY 05/26/19 05/26/19 [Vitamin D3] Previous Rx's Medication Instructions Recorded Simvastatin [Zocor] 20 mg PO HS #90 tab 12/13/16 Sodium Bicarbonate Tab 650 mg PO BID #60 tab 02/22/18 Cephalexin [Keflex] 500 mg PO Q12HR #10 cap 05/28/19 Nitrofurantoin Macrocrystal 100 mg PO AC-BID #10 capsule 05/28/19 [Nitrofurantoin] Torsemide [Demadex] 10 mg PO HS #30 tablet 05/28/19 Allergies Allergy/AdvReac Type Severity Reaction Status Date / Time meperidine HCl [From Demerol] Allergy Nausea & Verified 05/26/19 21:20 Vomiting Penicillins Allergy Rash/Hives Verified 05/26/19 21:20 Sulfa (Sulfonamide Allergy Rash/Hives Verified 05/26/19 21:20 Antibiotics) Review of Systems ROS Statement: Those systems with pertinent positive or pertinent negative responses have been documented in the HPI. ROS Other: All systems not noted in ROS Statement are negative. Past Medical History Past Medical History: Atrial Fibrillation, Heart Failure, Diabetes Mellitus, GERD/Reflux, Hyperlipidemia, Hypertension, Myocardial Infarction (ND), Sleep Apnea/CPAP/BIPAP, Thyroid Disorder Additional Past Medical History / Comment(s): uti's,PALPITATIONS, patient states kidney function tests are not normal and see saw Dr Child about it. Uses CPAP machine. Sick Sinus Syndrome with pacemaker, chronic afib. Stage 4 kidney disease. Last Myocardial Infarction Date:: 32 years ago History of Any Multi-Drug Resistant Organisms: ESBL Date of last positivie culture/infection: 07/03/18 ESBL E.coli MDRO Source:: URINE Past Surgical History: Hysterectomy, Pacemaker Additional Past Surgical History / Comment(s): hemmorrhoidectomy/rectocele/cystocele, cataracts,. vein stripping Past Anesthesia/Blood Transfusion Reactions: No Reported Reaction Type of Cardiac Device: Permanent Pacemaker Device Placement Date:: 01/2017 Past Psychological History: No Psychological Hx Reported Smoking Status: Never smoker Past Alcohol Use History: None Reported Past Drug Use History: None Reported - Past Family History Father Family Medical History: Coronary Artery Disease (CAD), Hyperlipidemia, Hypertension, Myocardial Infarction (ND) Mother Family Medical History: Unable to Obtain Sister(s) Family Medical History: Cancer General Exam Limitations: no limitations General appearance: alert, in no apparent distress Head exam: Present: atraumatic, normocephalic, normal inspection Eye exam: Present: normal appearance, PERRL, EOMI. Absent: scleral icterus, conjunctival injection, periorbital swelling ENT exam: Present: normal exam, mucous membranes moist Neck exam: Present: normal inspection. Absent: tenderness, meningismus, lymphadenopathy Respiratory exam: Present: rales. Absent: respiratory distress, wheezes, rhonchi, stridor Cardiovascular Exam: Present: regular rate, normal rhythm, normal heart sounds. Absent: systolic murmur, diastolic murmur, rubs, gallop, clicks GI/Abdominal exam: Present: soft, normal bowel sounds. Absent: distended, tenderness, guarding, rebound, rigid Extremities exam: Present: full ROM, normal capillary refill, pedal edema. Absent: tenderness, joint swelling, calf tenderness Back exam: Present: normal inspection Neurological exam: Present: alert, oriented X3, CN II-XII intact Psychiatric exam: Present: normal affect, normal mood Skin exam: Present: warm, dry, intact, normal color. Absent: rash Course Vital Signs 05/26/19 05/26/19 05/26/19 19:35 20:47 21:57 Temperature 97.9 F Pulse Rate 64 88 Pulse Rate [ Pulse Oximetery ] Respiratory 16 18 18 Rate Blood Pressure 183/67 154/75 Blood Pressure [Right Arm] O2 Sat by Pulse 99 98 Oximetry 05/26/19 05/27/19 23:32 00:00 Temperature 98 F 97.5 F L Pulse Rate 60 Pulse Rate [ 67 Pulse Oximetery ] Respiratory 18 19 Rate Blood Pressure 157/52 Blood Pressure 152/70 [Right Arm] O2 Sat by Pulse 97 97 Oximetry Medical Decision Making - Medical Decision Making Upon arrival the patient was placed into room 5. She is hooked up to continuous pulse ox and cardiac monitoring. A thorough history and physical exam was performed. A 12-lead EKG is performed which demonstrates a paced rhythm. Laboratory studies were conducted. WBC 11.7, BUNs 59, creatinine 2.2, glucose 169, BNP 7930. UA shows 1+ protein, moderate leukocyte esterase and 18 white blood cells. X-ray demonstrates fluid overload. I did discuss results with the patient. I did recommend hospital admission for which the patient did agree. A call discuss case with Dr. Buck who accepted admission. He did agree to Lasix diuresis. The patient was given 40 mg IV. I will consult cardiology. The patient remained in stable condition and was transported to the floor - Lab Data Result diagrams: 05/27/19 06:25 05/28/19 05:52 Lab Results 05/26/19 05/26/19 05/26/19 Range/Units 20:40 20:40 20:40 WBC 8.4 (3.8-10.6) k/uL RBC 3.56 L (3.80-5.40) m/uL Hgb 11.7 (11.4-16.0) gm/dL Hct 34.3 (34.0-46.0) % MCV 96.3 (80.0-100.0) fL MCH 33.0 (25.0-35.0) pg MCHC 34.2 (31.0-37.0) g/dL RDW 15.5 (11.5-15.5) % Plt Count 171 (150-450) k/uL Neutrophils % 67 % Lymphocytes % 20 % Monocytes % 7 % Eosinophils % 2 % Basophils % 1 % Neutrophils # 5.7 (1.3-7.7) k/uL Lymphocytes # 1.6 (1.0-4.8) k/uL Monocytes # 0.6 (0-1.0) k/uL Eosinophils # 0.2 (0-0.7) k/uL Basophils # 0.1 (0-0.2) k/uL PT (9.0-12.0) sec INR (<1.2) APTT (22.0-30.0) sec Sodium 139 (137-145) mmol/L Potassium 4.8 (3.5-5.1) mmol/L Chloride 104 (98-107) mmol/L Carbon Dioxide 25 (22-30) mmol/L Anion Gap 10 mmol/L BUN 59 H (7-17) mg/dL Creatinine 2.24 H (0.52-1.04) mg/dL Est GFR (CKD-EPI)AfAm 22 (>60 ml/min/1.73 sqM) Est GFR (CKD-EPI)NonAf 19 (>60 ml/min/1.73 sqM) Glucose 169 H (74-99) mg/dL Calcium 9.4 (8.4-10.2) mg/dL Total Bilirubin 0.3 (0.2-1.3) mg/dL AST 18 (14-36) U/L ALT 20 (9-52) U/L Alkaline Phosphatase 103 (38-126) U/L Creatine Kinase 36 (30-135) U/L Troponin I (0.000-0.034) ng/mL NT-Pro-B Natriuret Pep 7930 pg/mL Total Protein 6.8 (6.3-8.2) g/dL Albumin 4.1 (3.5-5.0) g/dL TSH 0.797 (0.465-4.680) mIU/L Urine Color Urine Appearance (Clear) Urine pH (5.0-8.0) Ur Specific [place] (1.001-1.035) Urine Protein (Negative) Urine Glucose (UA) (Negative) Urine Ketones (Negative) Urine Blood (Negative) Urine Nitrite (Negative) Urine Bilirubin (Negative) Urine Urobilinogen (<2.0) mg/dL Ur Leukocyte Esterase (Negative) Urine RBC (0-5) /hpf Urine WBC (0-5) /hpf Ur Squamous Epith Cells (0-4) /hpf 05/26/19 05/26/19 05/26/19 Range/Units 20:40 20:40 21:03 WBC (3.8-10.6) k/uL RBC (3.80-5.40) m/uL Hgb (11.4-16.0) gm/dL Hct (34.0-46.0) % MCV (80.0-100.0) fL MCH (25.0-35.0) pg MCHC (31.0-37.0) g/dL RDW (11.5-15.5) % Plt Count (150-450) k/uL Neutrophils % % Lymphocytes % % Monocytes % % Eosinophils % % Basophils % % Neutrophils # (1.3-7.7) k/uL Lymphocytes # (1.0-4.8) k/uL Monocytes # (0-1.0) k/uL Eosinophils # (0-0.7) k/uL Basophils # (0-0.2) k/uL PT 9.7 (9.0-12.0) sec INR 0.9 (<1.2) APTT 24.9 (22.0-30.0) sec Sodium (137-145) mmol/L Potassium (3.5-5.1) mmol/L Chloride (98-107) mmol/L Carbon Dioxide (22-30) mmol/L Anion Gap mmol/L BUN (7-17) mg/dL Creatinine (0.52-1.04) mg/dL Est GFR (CKD-EPI)AfAm (>60 ml/min/1.73 sqM) Est GFR (CKD-EPI)NonAf (>60 ml/min/1.73 sqM) Glucose (74-99) mg/dL Calcium (8.4-10.2) mg/dL Total Bilirubin (0.2-1.3) mg/dL AST (14-36) U/L ALT (9-52) U/L Alkaline Phosphatase (38-126) U/L Creatine Kinase (30-135) U/L Troponin I <0.012 (0.000-0.034) ng/mL NT-Pro-B Natriuret Pep pg/mL Total Protein (6.3-8.2) g/dL Albumin (3.5-5.0) g/dL TSH (0.465-4.680) mIU/L Urine Color Light Yellow Urine Appearance Clear (Clear) Urine pH 6.5 (5.0-8.0) Ur Specific [place] 1.012 (1.001-1.035) Urine Protein 1+ H (Negative) Urine Glucose (UA) Negative (Negative) Urine Ketones Negative (Negative) Urine Blood Negative (Negative) Urine Nitrite Negative (Negative) Urine Bilirubin Negative (Negative) Urine Urobilinogen <2.0 (<2.0) mg/dL Ur Leukocyte Esterase Moderate H (Negative) Urine RBC <1 (0-5) /hpf Urine WBC 18 H (0-5) /hpf Ur Squamous Epith Cells 1 (0-4) /hpf - EKG Data EKG Comments: EKG demonstrates a paced rhythm. Rate of 69. [place] interval 188. QRS 180. QTC 486. Pacemaker captures appropriately. No sgarbossa criteria. Disposition Clinical Impression: Congestive heart failure, Acute pulmonary edema Disposition: ADMITTED IP TO THIS HOSP Condition: Stable Is patient prescribed a controlled substance at d/c from ED?: No Decision to Admit Reason: Admit from EC Decision Date: 05/26/19 Decision Time: 22:59
[2019-05-26] MEDS ORDERED: ACETAMINOPHEN TAB 500 MG TAB PO PRN (23:01)
[2019-05-26] MEDS ORDERED: APIXABAN 2.5 MG TABLET PO SCH (23:15)
[2019-05-27] MEDS: SODIUM BICARBONATE TAB 650 MG TAB PO SCH ×2 (00:21→10:46)
[2019-05-27] MEDS: ATORVASTATIN 10 MG TAB PO SCH ×2 (00:21→20:36)
[2019-05-27] MEDS: FLECAINIDE 50 MG TAB PO SCH ×3 (00:21→20:36)
[2019-05-27] MEDS: ATENOLOL 50 MG TAB PO SCH ×3 (00:21→20:36)
[2019-05-27 00:42] VITALS: BMI 36.3
--- NOTE | 2019-05-27 01:16 | P.HPIM ---
History of Present Illness H&P Date: 05/26/19 Chief Complaint: Shortness of breath 83-year-old female with history of congestive heart failure and A. fib on blood thinners Patient lives alone at home. She is very hard of hearing give limited history this was assisted by her daughter at bedside who reported that her mother been having some wheezing off and on over the past couple weeks however over the past couple days she started to have progressively worsening of her shortness of breath as now she became shortness of breath with mild exertion. Last time she saw her PCP was a week ago when he did full exam and reported to them that her lungs were clear. No adjustments in her medications were done. However patient is reporting that she gained 7 pounds overnight yesterday for which she grew concerned and decided to come to the hospital. She also reports that her urine output has decreased significantly however she has not changed the doses of her diuretics. Patient daughter is not sure of her mother is compliant with fluid intakes but she thinks she has been taking her medications as prescribed. No recent traveling no recent hospitalization. Patient has obstructive sleep apnea and been compliant with her CPAP. Patient doesn't sleep on her back and she does wake up multiple times during the night over the past few days. But otherwise denies orthopnea. Patient also noticed that her legs were swollen Patient has chronic kidney disease stage IV and has an appointment on Friday for evaluation regarding AV fistula in preparation for dialysis in the future. she denies any chest pain fevers chills denies any coughing denies any abdominal pain nausea vomiting. She denies any changes in her bowel habits denies any GI bleeding. In the ED she was found to be in mild to moderate exacerbation of systolic CHF, due to the fact that the patient lives alone she preferred to be admitted to be monitored and treated with IV diuretics overnight Chest x-ray didn't reveal fluid congestion overload Review of Systems Pertinent positives as noted in HPI. All other systems were reviewed and are negative Past Medical History Past Medical History: Atrial Fibrillation, Heart Failure, Diabetes Mellitus, GERD/Reflux, Hyperlipidemia, Hypertension, Myocardial Infarction (ND), Sleep Apnea/CPAP/BIPAP, Thyroid Disorder Additional Past Medical History / Comment(s): uti's,PALPITATIONS, patient states kidney function tests are not normal and see saw Dr Child about it. Uses CPAP machine. Sick Sinus Syndrome with pacemaker, chronic afib. Stage 4 kidney disease. Last Myocardial Infarction Date:: 32 years ago History of Any Multi-Drug Resistant Organisms: ESBL Date of last positivie culture/infection: 07/03/18 ESBL E.coli MDRO Source:: URINE Past Surgical History: Hysterectomy, Pacemaker Additional Past Surgical History / Comment(s): hemmorrhoidectomy/rec tocele/cystocele, cataracts,. vein stripping Past Anesthesia/Blood Transfusion Reactions: No Reported Reaction Type of Cardiac Device: Permanent Pacemaker Device Placement Date:: 01/2017 Past Psychological History: No Psychological Hx Reported Smoking Status: Never smoker Past Alcohol Use History: None Reported Past Drug Use History: None Reported - Past Family History Father Family Medical History: Coronary Artery Disease (CAD), Hyperlipidemia, Hypertension, Myocardial Infarction (ND) Mother Family Medical History: Unable to Obtain Sister(s) Family Medical History: Cancer Medications and Allergies Home Medications Medication Instructions Recorded Confirmed Type Levothyroxine Sodium [Synthroid] 100 mcg PO DAILY 01/31/14 05/26/19 History Apixaban [Eliquis] 2.5 mg PO BID 10/12/16 05/26/19 History Flecainide [Tambocor] 50 mg PO BID 10/12/16 05/26/19 History Multivitamins, Thera [Multivitamin 1 tab PO DAILY 12/10/16 05/26/19 History (formulary)] Simvastatin [Zocor] 20 mg PO HS #90 tab 12/13/16 05/26/19 Rx Allopurinol [Zyloprim] 100 mg PO DAILY 01/18/17 05/26/19 History Calcitriol [Rocaltrol] 0.25 mcg PO MOWEFR 01/18/17 05/26/19 History Atenolol [Tenormin] 50 mg PO BID 10/10/17 05/26/19 History Glimepiride [Amaryl] 1 mg PO AC-BID 10/10/17 05/26/19 History Spironolactone [Aldactone] 12.5 mg PO DAILY 10/10/17 05/26/19 History Sodium Bicarbonate Tab 650 mg PO BID #60 tab 02/22/18 05/26/19 Rx Acetaminophen [Tylenol] 1,000 mg PO Q8H PRN 05/22/18 05/26/19 History Torsemide [Demadex] 20 mg PO DAILY 11/20/18 05/26/19 History Cholecalciferol (Vitamin D3) 4,000 unit PO DAILY 05/26/19 05/26/19 History [Vitamin D3] Allergies Allergy/AdvReac Type Severity Reaction Status Date / Time meperidine HCl [From Demerol] Allergy Nausea & Verified 05/26/19 21:20 Vomiting Penicillins Allergy Rash/Hives Verified 05/26/19 21:20 Sulfa (Sulfonamide Allergy Rash/Hives Verified 05/26/19 21:20 Antibiotics) Physical Exam Vitals: Vital Signs Temp Pulse Resp BP Pulse Ox 05/26/19 23:32 98 F 60 18 157/52 97 05/26/19 21:57 88 18 154/75 98 05/26/19 20:47 18 05/26/19 19:35 97.9 F 64 16 183/67 99 Intake and Output 05/26/19 05/26/19 05/27/19 14:59 22:59 06:59 Other: Weight 102.058 kg Patient was examined on the medical floor, she reported that she has went to the bathroom to urinate multiple times since she has received her IV diuretic Patient does seem to feel better already, she was on room air and was talking full sentences. And breathing comfortably Constitutional: No acute distress, conversant, pleasant, very hard of hearing, daughter at bedside assisting with history taking and exam Eyes: Anicteric sclerae, moist conjunctiva, no lid-lag Pupils equal round reactive to light ENMT: NC/AT Oropharynx clear, no erythema, exudates Neck: Supple, FROM, no masses, or JVD No carotid bruits No thyromegaly Lungs: Clear to auscultation Clear to percussion Normal respiratory effort, no accessory muscle use Cardiovascular: Heart regular in rate and rhythm, No murmurs, gallops, or rubs +1 leg edema bilaterally Abdominal: Soft Nontender, no guarding, rebound or rigidity Abdomen moving with respiration Normoactive bowel sounds No hepatomegaly, No splenomegaly No palpable mass No abdominal wall hernia noted Skin: Normal temperature, tone, texture, turgor No induration No subcutaneous nodules No rash, lesions No ulcers Extremities: No digital cyanosis No clubbing Pedal pulses intact and symmetrical Radial pulses intact and symmetrical No calf tenderness Psychiatric: Alert and oriented to person, place and time Appropriate affect fair judgment Neuro Muscles Strength 4/5 in all 4 extremities Sensation to light touch grossly present throughout Cranial nerves II-XII grossly intact, patient very hard of hearing No focal sensory deficits Lymphatics: no palpable cervical or supraclavicular , or inguinal lymph nodes Results CBC & Chem 7: 05/26/19 20:40 05/26/19 20:40 Labs: Abnormal Lab Results - Last 24 Hours (Table) 05/26/19 05/26/19 05/26/19 Range/Units 20:40 20:40 21:03 RBC 3.56 L (3.80-5.40) m/uL BUN 59 H (7-17) mg/dL Creatinine 2.24 H (0.52-1.04) mg/dL Glucose 169 H (74-99) mg/dL Urine Protein 1+ H (Negative) Ur Leukocyte Esterase Moderate H (Negative) Urine WBC 18 H (0-5) /hpf Assessment and Plan Assessment: 83-year-old female with history of congestive heart failure, A. fib on blood thinner, CK D stage IV and diabetes. Admitted as an inpatient with anticipated length of stay more than 2 midnights for acute exacerbation of systolic CHF, with mild to moderate fluid overload. Patient will be admitted for IV diuresis and close monitoring will recheck echocardiogram of the heart follow-up her electrolytes and kidney function which currently at baseline. Plan: Acute exacerbation of systolic CHF Fluid overload IV diuresis Check echocardiogram Cardiac consult Close monitoring of vital signs Strict I's and O's Continue with home meds Daily weights Fluid restriction Chronic conditions CK D stage IV, currently at baseline Obstructive sleep apnea continue CPAP Hypertension Hyperlipidemia A. fib on blood thinners GERD Diabetes mellitus continue with insulin sliding scale hold oral hypoglycemic agents Hypothyroid continue with levothyroxine History of CAD Fall precautions DVT prophylaxis patient is on blood thinner for A. fib Surrogate decision-maker: Patient daughter CODE STATUS: Full code Discussed with: Patient, ER, RN Anticipated length of stay more than [address]: Home with home health care A total of 65 minutes was spent on the care of this complex patient more than 50% of the time was spent in counseling and care coordination.
[2019-05-27 06:29] LABS: Glucose,Whole Blood 144 mg/dL (75-99)
[2019-05-27] MEDS: LEVOTHYROXINE 100 MCG TAB PO SCH (06:31)
[2019-05-27] MEDS: INSULIN ASPART (NovoLOG) 100 UNIT/ML VIAL SQ SCH ×4 (06:33→20:39)
[2019-05-27 06:50] LABS: Basophils % (A) 1 %; Eosinophils # (A) 0.1 k/uL (0-0.7); Eosinophils % (A) 2 %; HCT 31.4 % (34.0-46.0); HGB 10.6 gm/dL (11.4-16.0); Lymphocytes # (A) 1.3 k/uL (1.0-4.8); Lymphocytes % (A) 20 %; MCH 33.3 pg (25.0-35.0); MCHC 33.9 g/dL (31.0-37.0); MCV 98.2 fL (80.0-100.0); Mean Platelet Volume 8.2; Monocytes # (A) 0.5 k/uL (0-1.0); Monocytes % (A) 8 %; Neutrophils # (A) 4.5 k/uL (1.3-7.7); Neutrophils % (A) 67 %; Platelet Count 156 k/uL (150-450); RDW 15.1 % (11.5-15.5); WBC 6.7 k/uL (3.8-10.6)
[2019-05-27 07:06] LABS: Calcium 9.2 mg/dL (8.4-10.2); Potassium 4.3 mmol/L (3.5-5.1)
--- NOTE | 2019-05-27 09:01 | P.PN ---
Subjective Progress Note Date: 05/27/19 The patient is seen and examined follow-up, sitting bedside, breathing comfortably on room air. Reported that she was having increasing dyspnea exertion and lower extremity swelling prior to presenting also had a 5/6 pound weight gain. Also reports that she is scheduled to see Dr. Argueta to decide on hemodialysis catheter placement as she has chronic kidney disease stage IV . no acute events overnight Objective - Vital Signs Vital signs: Vital Signs Temp 98.0 F 05/27/19 04:00 Pulse 68 05/27/19 04:00 Resp 18 05/27/19 04:00 BP 138/65 05/27/19 04:00 Pulse Ox 96 05/27/19 04:00 Intake & Output 05/26/19 05/27/19 05/27/19 18:59 06:59 18:59 Output Total 400 Balance -400 Weight 99.7 kg Output: Urine 400 Other: Voiding Method Toilet - Exam Constitutional: No acute distress, conversant, pleasant Eyes: Anicteric sclerae, moist conjunctiva, no lid-lag, PERRLA ENMT: NC/AT,Oropharynx clear, no erythema, exudates Neck:Supple, FROM, no masses, or JVD, No carotid bruits; No thyromegaly Lungs: Clear to auscultation, Clear to percussion, Normal respiratory effort, no accessory muscle use Cardiovascular: Irregularly irregular, No murmurs, gallops, or rubs, + 1.5 peripheral edema Abdominal: Soft Nontender, nom distended, no guarding, no rebound or rigidity, Normoactive bowel sounds No hepatomegaly, No splenomegaly, No palpable mass No abdominal wall hernia noted Skin: Normal temperature, tone, texture, turgor, No induration No subcutaneous nodules, No rash, lesions, No ulcers Extremities:No digital cyanosis No clubbing, Pedal pulses intact and symmetrical Radial pulses intact and symmetrical Normal gait and station, No calf tenderness Psychiatric: Alert and oriented to person, place and time, Appropriate affect Intact judgement Neuro: Muscles Strength 5/5 in all 4 extremities, Sensation to light touch jatinder ssly present throughout, Cranial nerves II-XII grossly intact. No focal sensory deficits - Labs CBC & Chem 7: 05/27/19 06:25 05/27/19 06:25 Labs: Abnormal Lab Results - Last 24 Hours (Table) 05/26/19 05/26/19 05/26/19 Range/Units 20:40 20:40 21:03 RBC 3.56 L (3.80-5.40) m/uL Hgb (11.4-16.0) gm/dL Hct (34.0-46.0) % BUN 59 H (7-17) mg/dL Creatinine 2.24 H (0.52-1.04) mg/dL Glucose 169 H (74-99) mg/dL POC Glucose (mg/dL) (75-99) mg/dL Urine Protein 1+ H (Negative) Ur Leukocyte Esterase Moderate H (Negative) Urine WBC 18 H (0-5) /hpf 05/27/19 05/27/19 05/27/19 Range/Units 06:25 06:25 06:29 RBC 3.20 L (3.80-5.40) m/uL Hgb 10.6 L (11.4-16.0) gm/dL Hct 31.4 L (34.0-46.0) % BUN 60 H (7-17) mg/dL Creatinine 2.21 H (0.52-1.04) mg/dL Glucose 141 H (74-99) mg/dL POC Glucose (mg/dL) 144 H (75-99) mg/dL Urine Protein (Negative) Ur Leukocyte Esterase (Negative) Urine WBC (0-5) /hpf Microbiology - Last 24 Hours (Table) 05/26/19 21:03 Urine Culture - Preliminary Urine,Clean Catch Assessment and Plan (1) Acute on chronic combined systolic (congestive) and diastolic (congestive) heart failure Narrative/Plan: * Mildly decompensated in the setting of CKD stage IV possibly progressing to to ESRD * Initial chest x-ray showing mild CHF exacerbation, with elevated NT proBNP is 7000 range * We'll order echocardiogram, consult cardiology, continue low sodium diet, daily weights and strict I&O's * Continue diuresis with Lasix, Aldactone. Continue beta henok Current Visit: Yes Status: Acute Code(s): I50.43 - ACUTE ON CHRONIC COMBINED SYSTOLIC AND DIASTOLIC HRT FAIL SNOMED Code(s): 655417139686956 (2) CKD (chronic kidney disease), stage IV Narrative/Plan: * Nephrology consulted * Dr. Argueta vascular also consulted for possible hemodialysis catheter placement, we'll plan to hold DOAC Current Visit: Yes Status: Acute Code(s): N18.4 - CHRONIC KIDNEY DISEASE, STAGE 4 (SEVERE) SNOMED Code(s): 795120998 (3) Chronic atrial fibrillation Narrative/Plan: * With controlled ventricular rate * Continue with beta blockers * Patient continued on DOAC with eliquis (currently held for procedure) Current Visit: Yes Status: Chronic Code(s): I48.2 - CHRONIC ATRIAL FIBRILLATION SNOMED Code(s): 523501399 (4) Type 2 diabetes mellitus Narrative/Plan: * Continue to hold oral hypoglycemics * Monitor blood sugars with correctional scale insulin coverage Current Visit: Yes Status: Acute Code(s): E11.9 - TYPE 2 DIABETES MELLITUS WITHOUT COMPLICATIONS SNOMED Code(s): 18762762 Plan: Disposition * Anticipated discharge 1-2 days * Follow-up consultants recommendations
--- NOTE | 2019-05-27 10:12 | XR ---
EXAMINATION TYPE: XR chest 2V DATE OF EXAM: 05/27/2019 COMPARISON: 05/26/2019 HISTORY: Difficulty breathing TECHNIQUE: Frontal and lateral views of the chest are obtained. FINDINGS: There is no focal air space opacity, pleural effusion, or pneumothorax seen. The cardiac silhouette size is enlarged with multilead left-sided cardiac device. Lingular atelectasis is noted. The osseous structures are intact. Mild degenerative changes of the spine and diffuse osseous demin eralization. IMPRESSION: Lingular atelectasis otherwise no acute cardiopulmonary process.
[2019-05-27] MEDS: ALLOPURINOL 100 MG TAB PO SCH (10:40)
[2019-05-27] MEDS: FUROSEMIDE 10 MG/ML 4 ML VIAL IV SCH ×2 (10:41→20:36)
[2019-05-27] MEDS: SPIRONOLACTONE 25 MG TAB PO SCH (10:41)
--- NOTE | 2019-05-27 11:00 | ECHOF ---
Referral Reason:chf MEASUREMENTS -------- HEIGHT: 167.6 cm WEIGHT: 99.3 kg BP: 138/65 RVIDd: 4.6 cm (< 3.3) IVSd: 1.4 cm (0.6 - 1.1) LVIDd: 4.5 cm (3.9 - 5.3) LVPWd: 1.3 cm (0.6 - 1.1) IVSs: 1.6 cm LVIDs: 3.2 cm LVPWs: 1.7 cm LAESV Index (A-L): 30.37 ml/m Ao Diam: 3.1 cm (2.0 - 3.7) AV Cusp: 1.6 cm (1.5 - 2.6) LA Diam: 4.3 cm (2.7 - 3.8) EPSS: 0.9 cm MV E Earnest: 1.26 m/s MV DecT: 188 ms MV A Earnest: 0.88 m/s MV E/A Ratio: 1.43 AV maxP.45 mmHg AV meanP.76 mmHg RAP: 5.00 mmHg RVSP: 40.95 mmHg MV EF SLOPE: 99.91 mm/s (70 - 150) MV EXCURSION: 1.43 cm (> 18.000) FINDINGS -------- Sinus rhythm. This was a technically adequate study. The left ventricular size is normal. There is mild concentric left ventricular hypertrophy. Overa ll left ventricular systolic function is low-normal with, an EF between 50 - 55 %. The diastolic fi lling pattern is normal for the age of the patient. The right ventricle is severely enlarged. Left atrium is mildly dilated by volume. The right atrium is mildly enlarged. Interatrial and interventricular septum intact. There is moderate aortic valve sclerosis. There is mild aortic regurgitation. There is mild aorti c stenosis present. Peak/mean gradient across the valve is 24.45mmHg / 11.76mmHg. Mild mitral annular calcification present. Mild mitral regurgitation is present. [id number] tricuspid regurgitation present. There is moderate pulmonary hypertension. The r ight ventricular systolic pressure, as measured by Doppler, is 40.95mmHg. The pulmonic valve was not well visualized. There is no pulmonic regurgitation present. The aortic root size is normal. IVC not well visualized There is no pericardial effusion. CONCLUSIONS -------- 1. Sinus rhythm. 2. This was a technically adequate study. 3. The left ventricular size is normal. 4. There is mild concentric left ventricular hypertrophy. 5. Overall left ventricular systolic function is low-normal with, an EF between 50 - 55 %. 6. The diastolic filling pattern is normal for the age of the patient. 7. The right ventricle is severely enlarged. 8. Left atrium is mildly dilated by volume. 9. The right atrium is mildly enlarged. 10. There is moderate aortic valve sclerosis. 11. There is mild aortic regurgitation. 12. There is mild aortic stenosis present. 13. Peak/mean gradient across the valve is 24.45mmHg / 11.76mmHg. 14. Mild mitral annular calcification present. 15. Mild mitral regurgitation is present. 16. Ciqt-nn-oyyytksx tricuspid regurgitation present. 17. There is moderate pulmonary hypertension. 18. There is no pulmonic regurgitation present. 19. The aortic root size is normal. 20. IVC not well visualized 21. There is no pericardial effusion. LAYER OUT: Liliana Espinoza RDCS
[2019-05-27 11:52] LABS: Glucose,Whole Blood 149 mg/dL (75-99)
--- NOTE | 2019-05-27 13:06 | P.CRDCN ---
History of Present Illness History of present illness: This is a pleasant 83-year-old female past medical history significant for permanent pacemaker implantation secondary to complete heart block, pacemaker induced cardiomyopathy, hypertension, diabetes mellitus, dyslipidemia and chronic persistent atrial fibrillation on long-term anticoagulation and chronic kidney disease. She follows in the office with Dr. Starr. We have been asked in consultation secondary to fluid overload. She presented to the hospital yesterday with symptoms of shortness of breath, increasing abdominal girth and lower extremity edema. She states she had been relatively stable until about Friday when she started noticing when she would bend over her stomach felt full and she became short of breath with any sort of mild activity. She also noticed a 5 pound weight gain. She denies any change in her diet or habits. She has been started on IV Lasix 40 mg twice a day. She is seen and examined sitting up in bed in no acute distress. She states she has been up urinating frequently. She states her abdomen feels much less taut however she still has lower extremity edema. She still has some mild shortness of breath. She denies chest discomfort, dizziness, palpitations, nausea, vomiting or diaphoresis. Weight is down 3 kg since admission. The patient she has been seen by Dr. Child and they plan to place an AV fistula tomorrow. Prior to coming to the hospital she states she has not been urinating much at all. Since admission and IV lasix she has been up frequently and is putting out urine. Maintaining a negative fluid balance. EKG on arrival reveals ventricular paced rhythm with right bundle branch block. Chest x-ray on admission reveals fluid overload yesterday, repeat today has normalized. Laboratory data reviewed, WBC 6.7, hemoglobin 10.6, platelets 156, sodium 141, potassium 4.3, creatinine 2.21 with a GFR 20, proBNP 7930, TSH 0.797, creatinine enzymes negative 1. Current daily cardiac medications include atenolol 50 mg twice a day, Eliquis 2.5 mg twice a day, flecainide 50 mg twice a day, simvastatin 20 mg daily, Aldactone 12.5 mg daily and torsemide 20 mg daily. Echocardiogram obtained on admission reveals preserved LV systolic function with ejection fraction 50-55%, normal diastolic filling pattern, mild aortic regurgitation, mild aortic stenosis with a mean gradient of 11 mmHg, mild mitral regurgitation, mild to moderate tricuspid regurgitation and moderate pulmonary hypertension with RVSP of 40 mmHg. She recently underwent a Lexiscan stress test in the office April 2019 revealed a mild fixed defect involving the inferior basal wall secondary to soft tissue attenuation with no definite reversible ischemia noted. At the time of my exam: CONSTITUTIONAL: Denies fever. Denies chills. EYES: Denies blurred vision. Denies vision changes. Denies eye pain. EARS, NOSE, MOUTH & THROAT: Denies headache. Denies sore throat. Denies ear pain. CARDIOVASCULAR: Denies chest pain. Complains of shortness of breath. Denies orthopnea. Denies PND. Denies palpitations. RESPIRATORY: Denies cough. GASTROINTESTINAL: Denies abdominal pain. Denies diarrhea. Denies constipation. Denies nausea. Denies vomiting. MUSCULOSKELETAL: Denies myalgias. INTEGUMENTARY: Denies pruitis. Denies rash. NEUROLOGIC: Denies numbness. Denies tingling. Denies weakness. PSYCHIATRIC: Denies anxiety. Denies depression. ENDOCRINE: Denies fatigue. Denies weight change. Denies polydipsia. Denies polyurina. GENITOURINARY: Denies burning, hematuria or urgency with micturation. HEMATOLOGIC: Denies history of anemia. Denies bleeding. Blood pressure 131/94 heart rate 64 afebrile maintaining oxygen saturation on room air GENERAL: This is a 83-year-old female in no apparent distress at the time of my examination. HEENT: Head is atraumatic, normocephalic. Pupils are equal, round. Sclerae anicteric. Conjunctivae are clear. Mucous membranes of the mouth are moist. Neck is supple. There is no jugular venous distention. No carotid bruit is heard. LUNGS: Bibasilar rales, scattered rhonchi, no wheezes. No chest wall tenderness is noted on palpation or with deep breathing. HEART: Regular rate and rhythm with systolic ejectin murmur at the base, no rubs or gallops. S1 and S2 heard. distant heart sounds. ABDOMEN: Soft, nontender. Bowel sounds are heard. No organomegaly noted. EXTREMITIES: 1+ bilateral lower extremity pitting edema and no calf tenderness noted. VASCULAR: Radial and dorsalis pedis pulses palpated, no evidence of clubbing. NEUROLOGIC: Patient is awake, alert and oriented x3. ASSESSMENT Acute on chronic diastolic heart failure Fluid overload secondary to renal failure as well as heart failure Chronic kidney disease, creatinine 2.21. This is her baseline for the previous 2 years. Chronic persistent atrial fibrillation on long-term anticoagulation Complete heart block status post permanent pacemaker implantation Dyslipidemia Hypertension Diabetes mellitus PLAN Ramon has some placed on hold for AV fistula implantation tomorrow. Continue IV diuresis. Follow renal function and electrolytes in the morning. Document accurate intake and output along with daily weights. We will continue to follow and make recommendations accordingly. Thank you kindly for this consultation. Nurse Practitioner note has been reviewed, I agree with a documented findings and plan of care. Patient was seen and examined. Past Medical History Past Medical History: Atrial Fibrillation, Heart Failure, Diabetes Mellitus, GERD/Reflux, Hyperlipidemia, Hypertension, Myocardial Infarction ([place]), Sleep Apnea/CPAP/BIPAP, Thyroid Disorder Additional Past Medical History / Comment(s): uti's,PALPITATIONS, patient states kidney function tests are not normal and see saw Dr Child about it. Uses CPAP machine. Sick Sinus Syndrome with pacemaker, chronic afib. Stage 4 kidney disease. Last Myocardial Infarction Date:: 32 years ago History of Any Multi-Drug Resistant Organisms: ESBL Date of last positivie culture/infection: 07/03/18 ESBL E.coli MDRO Source:: URINE Past Surgical History: Hysterectomy, Pacemaker Additional Past Surgical History / Comment(s): hemmorrhoidectomy/rectocele/cystocele, cataracts,. vein stripping Past Anesthesia/Blood Transfusion Reactions: No Reported Reaction Type of Cardiac Device: Permanent Pacemaker Device Placement Date:: 01/2017 Past Psychological History: No Psychological Hx Reported Smoking Status: Never smoker Past Alcohol Use History: None Reported Past Drug Use History: None Reported - Past Family History Father Family Medical History: Coronary Artery Disease (CAD), Hyperlipidemia, Hypertension, Myocardial Infarction ([place]) Mother Family Medical History: Unable to Obtain Sister(s) Family Medical History: Cancer Medications and Allergies Home Medications Medication Instructions Recorded Confirmed Type Levothyroxine Sodium [Synthroid] 100 mcg PO DAILY 01/31/14 05/26/19 History Apixaban [Eliquis] 2.5 mg PO BID 10/12/16 05/26/19 History Flecainide [Tambocor] 50 mg PO BID 10/12/16 05/26/19 History Multivitamins, Thera [Multivitamin 1 tab PO DAILY 12/10/16 05/26/19 History (formulary)] Simvastatin [Zocor] 20 mg PO HS #90 tab 12/13/16 05/26/19 Rx Allopurinol [Zyloprim] 100 mg PO DAILY 01/18/17 05/26/19 History Calcitriol [Rocaltrol] 0.25 mcg PO MOWEFR 01/18/17 05/26/19 History Atenolol [Tenormin] 50 mg PO BID 10/10/17 05/26/19 History Glimepiride [Amaryl] 1 mg PO AC-BID 10/10/17 05/26/19 History Spironolactone [Aldactone] 12.5 mg PO DAILY 10/10/17 05/26/19 History Sodium Bicarbonate Tab 650 mg PO BID #60 tab 02/22/18 05/26/19 Rx Acetaminophen [Tylenol] 1,000 mg PO Q8H PRN 05/22/18 05/26/19 History Torsemide [Demadex] 20 mg PO DAILY 11/20/18 05/26/19 History Cholecalciferol (Vitamin D3) 4,000 unit PO DAILY 05/26/19 05/26/19 History [Vitamin D3] Allergies Allergy/AdvReac Type Severity Reaction Status Date / Time meperidine HCl [From Demerol] Allergy Nausea & Verified 05/26/19 21:20 Vomiting Penicillins Allergy Rash/Hives Verified 05/26/19 21:20 Sulfa (Sulfonamide Allergy Rash/Hives Verified 05/26/19 21:20 Antibiotics) Physical Exam Vitals: Vital Signs Temp Pulse Pulse Resp BP BP BP 05/27/19 11:55 97.6 F 64 16 131/94 05/27/19 08:40 98.4 F 92 16 90/59 05/27/19 08:00 66 05/27/19 04:00 98.0 F 68 18 138/65 05/27/19 00:08 97.5 F L 67 18 152/70 05/27/19 00:00 97.5 F L 67 19 152/70 05/26/19 23:32 98 F 60 18 157/52 05/26/19 21:57 88 18 154/75 05/26/19 20:47 18 05/26/19 19:35 97.9 F 64 16 183/67 Pulse Ox 05/27/19 11:55 97 05/27/19 08:40 97 05/27/19 08:00 05/27/19 04:00 96 05/27/19 00:08 97 05/27/19 00:00 97 05/26/19 23:32 97 05/26/19 21:57 98 05/26/19 20:47 05/26/19 19:35 99 Intake and Output 05/26/19 05/27/19 05/27/19 22:59 06:59 14:59 Intake Total 480 Output Total 400 800 Balance -400 -320 Intake: Oral 480 Output: Urine 400 800 Other: Voiding Method Toilet Toilet Weight 102.058 kg 99.7 kg Results 05/27/19 06:25 05/27/19 06:25 Cardiac Enzymes 05/26/19 05/26/19 Range/Units 20:40 20:40 AST 18 (14-36) U/L Troponin I <0.012 (0.000-0.034) ng/mL Coagulation 05/26/19 Range/Units 20:40 PT 9.7 (9.0-12.0) sec APTT 24.9 (22.0-30.0) sec CBC 05/26/19 05/27/19 Range/Units 20:40 06:25 WBC 8.4 6.7 (3.8-10.6) k/uL RBC 3.56 L 3.20 L (3.80-5.40) m/uL Hgb 11.7 10.6 L (11.4-16.0) gm/dL Hct 34.3 31.4 L (34.0-46.0) % Plt Count 171 156 (150-450) k/uL Comprehensive Metabolic Panel 05/26/19 05/27/19 Range/Units 20:40 06:25 Sodium 139 141 (137-145) mmol/L Potassium 4.8 4.3 (3.5-5.1) mmol/L Chloride 104 106 (98-107) mmol/L Carbon Dioxide 25 25 (22-30) mmol/L BUN 59 H 60 H (7-17) mg/dL Creatinine 2.24 H 2.21 H (0.52-1.04) mg/dL Glucose 169 H 141 H (74-99) mg/dL Calcium 9.4 9.2 (8.4-10.2) mg/dL AST 18 (14-36) U/L ALT 20 (9-52) U/L Alkaline Phosphatase 103 (38-126) U/L Total Protein 6.8 (6.3-8.2) g/dL Albumin 4.1 (3.5-5.0) g/dL Current Medications Generic Name Dose Route Start Last Admin Trade Name Chong PRN Reason Stop Dose Admin Acetaminophen 1,000 mg 05/26/19 23:01 Tylenol Tab PO Q8H PRN Pain or Fever > 100.5 Allopurinol 100 mg 05/27/19 09:00 05/27/19 10:40 Zyloprim PO 100 mg DAILY [facility] Administration Atenolol 50 mg 05/26/19 23:15 05/27/19 10:41 Tenormin PO 50 mg BID [facility] Administration Atorvastatin Calcium 10 mg 05/26/19 23:15 05/27/19 00:21 Lipitor PO Not Given HS [facility] Flecainide Acetate 50 mg 05/26/19 23:15 05/27/19 10:41 Tambocor PO 50 mg BID [facility] Administration Furosemide 40 mg 05/27/19 09:00 05/27/19 10:41 Lasix IV 40 mg Q12HR [facility] Administration Insulin Aspart 0 unit 05/27/19 07:30 05/27/19 06:33 Novolog SQ 1 unit ACHS [facility] Administration Protocol Levothyroxine Sodium 100 mcg 05/27/19 06:30 05/27/19 06:31 Synthroid PO 100 mcg DAILY@0630 [facility] Administration Naloxone HCl 0.2 mg 05/26/19 22:59 Narcan IV Q2M PRN Opioid Reversal Sodium Bicarbonate 650 mg 05/26/19 23:15 05/27/19 10:46 Sodium Bicarbonate Tab PO 650 mg BID [facility] Administration Spironolactone 12.5 mg 05/27/19 09:00 05/27/19 10:41 Aldactone PO 12.5 mg DAILY [facility] Administration Intake and Output 05/26/19 05/27/19 05/27/19 22:59 06:59 14:59 Intake Total 480 Output Total 400 800 Balance -400 -320 Intake: Oral 480 Output: Urine 400 800 Other: Voiding Method Toilet Toilet Weight 102.058 kg 99.7 kg 05/27/19 06:25 05/27/19 06:25
[2019-05-27 17:00] LABS: Glucose,Whole Blood 203 mg/dL (75-99)
[2019-05-27 20:30] LABS: Glucose,Whole Blood 100 mg/dL (75-99)
[2019-05-27] MEDS: APIXABAN 2.5 MG TABLET PO SCH (20:36)
--- NOTE | 2019-05-27 21:03 | CONS ---
DATE OF CONSULTATION: 05/27/2019 This patient is an 83-year-old female. She was supposed to see me in the office today for venous mapping for fistula. The patient had some shortness of breath. The patient was admitted and today her creatinine is 2.3. The patient also has a history of chronic renal failure, sleep apnea and diabetes. The patient has a history of DVT in the past and also had stripping done in the past x2. She is on Eliquis. On examination, the patient is seen in her room. NECK: Supple. Trachea central. CHEST: Clear. ABDOMEN: Soft. Brachial and radial pulses are present. Patient was seen by Dr. Child, who recommended at this point that she does not need urgent dialysis. We will wait. I will see her Friday in my office for venous mapping and we will arrange for fistula. MMLILI / TAVO: [id number] / MTDD
--- NOTE | 2019-05-27 21:12 | CONS ---
CONSULTATION Patient is an 83-year-old female with history of end-stage renal disease, stage IV, secondary to nephrosclerosis and chronic interstitial nephropathy. She was admitted to the hospital with complaints of increased shortness of breath and increased weight gain over the past few days; patient states just since the weekend, which is about 3-4 days. Patient noticed increased weight gain. She denies any change in her dose of diuretics. No complaints of chest pains. The patient was scheduled to see Dr. Argueta as outpatient for placement of a fistula in preparation for renal replacement therapy down the road. Patient states there is no change in her urine output. Her appetite is fairly good. PAST MEDICAL HISTORY: 1. CKD, stage IV. 2. Coronary artery disease. 3. History of atrial fibrillation. 4. Type 2 diabetes. 5. Gastroesophageal reflux disease. 6. Hyperlipidemia. 7. Hypothyroidism. 8. Chronic atrial fibrillation. PAST SURGICAL HISTORY: 1. Hysterectomy. 2. Pacemaker placement. 3. Hemorrhoidectomy. 4. Rectocele. 5. Cystocele. 6. Cataract surgery. 7. History of vein stripping. 8. Permanent pacemaker placement. SOCIAL HISTORY: Negative for smoking, drug abuse or alcohol abuse. MEDICATIONS: Medications prior to admission included: 1. Synthroid. 2. Eliquis. 3. Flecainide. 4. Zocor. 5. Zyloprim. 6. Rocaltrol. 7. Tenormin. 8. Amaryl. 9. Aldactone. 10.Tylenol. 11.Demadex. 12.Vitamin D3. ALLERGIES: ALLERGIES include: 1. DEMEROL. 2. PENICILLIN. 3. SULFA. Reaction causes rash and hives. REVIEW OF SYSTEMS: As per HPI. Other systems negative. PHYSICAL EXAMINATION: Patient is currently comfortable, awake, alert, oriented x3, not in any acute distress. This morning blood pressure was low at 90/59, heart rate 92 per minute. She is afebrile. EXAMINATION OF THE HEART: S1 and S2. EXAMINATION OF LUNGS: Bilateral breath sounds are heard. Basal crackles are heard. ABDOMEN: Soft, non-tender. Examination of lower extremities shows edema 2+ bilaterally. [employer] exam is grossly intact. LABS: Hemoglobin 10.6, sodium 141, potassium 4.3, BUN 60, serum creatinine 2.21. UA shows 1+ protein, leukocyte esterase moderate, WBCs 18. ASSESSMENT: 1. Chronic kidney disease, stage IV, secondary to nephrosclerosis and chronic interstitial nephropathy. Renal function is not far from baseline. At this time we do not need PermCath placement. Vascular Surgery has been consulted. If patient can have an AV fistula during her hospitalization, we can proceed with the surgery. Otherwise, she can follow up with Dr. Argueta as outpatient. 2. Volume overload, maintained on IV Lasix. 3. Congestive heart failure, acute on top of chronic, mainly diastolic; ejection fraction about 50% to 55%. 4. Moderate pulmonary hypertension. 5. Metabolic acidosis, maintained on sodium bicarb, which I will decrease, given the volume overload. PLAN: Continue with IV Lasix. At this time we do not need an IJ PermCath. Avoid hypotension. Patient's blood pressure was low this morning. If it continues to be low, I will decrease the Tenormin. Decrease oral sodium bicarb. Repeat labs in a.m. MMODL / IJN: [id number] /
[2019-05-28 06:10] LABS: Glucose,Whole Blood 161 mg/dL (75-99)
[2019-05-28 06:25] LABS: Calcium 8.9 mg/dL (8.4-10.2); Potassium 4.4 mmol/L (3.5-5.1)
[2019-05-28] MEDS: LEVOTHYROXINE 100 MCG TAB PO SCH (06:54)
[2019-05-28] MEDS: INSULIN ASPART (NovoLOG) 100 UNIT/ML VIAL SQ SCH (06:55)
[2019-05-28] MEDS: ALLOPURINOL 100 MG TAB PO SCH (08:26)
[2019-05-28] MEDS: FLECAINIDE 50 MG TAB PO SCH (08:26)
[2019-05-28] MEDS: ATENOLOL 50 MG TAB PO SCH (08:26)
[2019-05-28] MEDS: APIXABAN 2.5 MG TABLET PO SCH (08:26)
[2019-05-28] MEDS: SPIRONOLACTONE 25 MG TAB PO SCH (08:29)
[2019-05-28] MEDS: FUROSEMIDE 10 MG/ML 4 ML VIAL IV SCH (08:31)
--- NOTE | 2019-05-28 08:55 | PN ---
PROGRESS NOTE Patient is seen for followup for CKD. She is currently comfortable. Patient denies any significant symptoms. She wants to go home. She is breathing much better. PHYSICAL EXAMINATION: Blood pressure is 136/58, heart rate 77 per minute. She is afebrile. Examination of the heart S1, S2. Examination of the lungs, bilateral breath sounds are heard. Abdomen is soft, nontender. Examination of the lower extremities shows edema 1+ bilaterally. TAPE SEWER exam grossly intact. LABS: Show sodium 140, potassium 4.4, BUN 64, serum creatinine 2.3. ASSESSMENT: 1. CKD NKF stage IV, renal function close to baseline. 2. Volume overload, currently improved. 3. CKD mineral bone disorder. 4. Asymptomatic pyuria. PLAN: Patient can be discharged. Her diuretics will be increased to 20 mg of torsemide a.m., 10 mg in the afternoon. She will follow up as outpatient with Vascular Surgery and Nephrology in about one week. She is scheduled to see Dr. Argueta in the next 3 days. MMODL / IJN: [id number] /
[2019-05-28] MEDS ORDERED: SODIUM BICARBONATE TAB 650 MG TAB PO SCH (09:00)
[2019-05-28 09:03] VITALS: PULSE 64; RESP 18; TEMP 97.3
[2019-05-28] MEDS ORDERED: NITROFURANTOIN MONOHYD/M-CRYST 100 MG CAP PO STA (09:06)
[2019-05-28 10:02] VITALS: BP 138/63
--- NOTE | 2019-05-28 10:35 | P.DS ---
Providers Date of admission: 05/26/19 23:02 Expected date of discharge: 05/28/19 Attending physician: Raimundo Araiza MD Consults: 05/26/19 23:00 Consult Physician Urgent Consulting Provider: [facility] Consult Reason/Comments: AECHF Do you want consulting provider notified?: Yes 05/27/19 08:01 Consult Physician Routine Consulting Provider: Erik Argueta Consult Reason/Comments: renal failure, pt has appointment 05/28 for insertion of dialysis cath Do you want consulting provider notified?: Yes Consult Physician Urgent Consulting Provider: Sofia Child Consult Reason/Comments: renal failure Do you want consulting provider notified?: Yes Primary care physician: Phil Blood - Discharge Diagnosis(es) (1) Acute on chronic combined systolic (congestive) and diastolic (congestive) heart failure Current Visit: Yes Status: Acute (2) CKD (chronic kidney disease), stage IV Current Visit: Yes Status: Acute (3) Chronic atrial fibrillation Current Visit: Yes Status: Chronic (4) Type 2 diabetes mellitus Current Visit: Yes Status: Acute Hospital Course: the patient is a 83-year-old female is admitted with acute on chronic combined systolic and diastolic CHF exacerbation after presenting with increasing lower extremity swelling, weight gain, and progressively worsening dyspnea on exertion. On admission patient was noted to have elevated NT proBNP is 7000 range, and chest x-ray confirmed mild fluid overload suggesting decompensated CHF. The patient was started on diuresis with Lasix 40 mg IV twice a day, low-sodium diet, strict I's and O's and daily weights. She was diuresed well echocardiogram showed a preserved LVEF of 50-55%, normal diastolic filling pattern mild aortic regurgitation, mild aortic stenosis, mild MR, mild to moderate TR and moderate pulmonary artery hypertension. The patient was seen by nephrology for ongoing CKD stage IV secondary to nephrosclerosis and chronic interstitial neuropathy as he reports that the patient was supposed to be evaluated by vascular for possible treatment as catheter placement. Nephrology Dr. Child determined that the patient did not need IJ permanent catheter at this time and the patient was continued on Lasix and transitioned to oral diuretics with torsemide. She was subsequently discharged home after resolution of her symptoms and recommended to follow-up with nephrology, cardiology and vascular. This discharge process took approximately 35 minutes. Focused exam Cardiovascular: Regular rate and rhythm, no murmurs or gallops, +1 bilateral lower actually pitting edema Patient Condition at Discharge: Stable Plan - Discharge Summary Discharge Rx Participant: No New Discharge Prescriptions: New Cephalexin [Keflex] 500 mg PO Q12HR #10 cap Nitrofurantoin Macrocrystal [Nitrofurantoin] 100 mg PO AC-BID #10 capsule Torsemide 10 mg PO HS #30 tablet Continue Levothyroxine Sodium [Synthroid] 100 mcg PO DAILY Flecainide [Tambocor] 50 mg PO BID Apixaban [Eliquis] 2.5 mg PO BID Multivitamins, Thera [Multivitamin (formulary)] 1 tab PO DAILY Simvastatin [Zocor] 20 mg PO HS #90 tab Calcitriol [Rocaltrol] 0.25 mcg PO MOWEFR Allopurinol [Zyloprim] 100 mg PO DAILY Glimepiride [Amaryl] 1 mg PO AC-BID Spironolactone [Aldactone] 12.5 mg PO DAILY Atenolol [Tenormin] 50 mg PO BID Sodium Bicarbonate Tab 650 mg PO BID #60 tab Acetaminophen [Tylenol] 1,000 mg PO Q8H PRN PRN Reason: Pain Or Fever > 100.5 Torsemide [Demadex] 20 mg PO DAILY Cholecalciferol (Vitamin D3) [Vitamin D3] 4,000 unit PO DAILY Discharge Medication List Levothyroxine Sodium [Synthroid] 100 mcg PO DAILY 01/31/14 [History] Apixaban [Eliquis] 2.5 mg PO BID 10/12/16 [History] Flecainide [Tambocor] 50 mg PO BID 10/12/16 [History] Multivitamins, Thera [Multivitamin (formulary)] 1 tab PO DAILY 12/10/16 [History] Simvastatin [Zocor] 20 mg PO HS #90 tab 12/13/16 [Rx] Allopurinol [Zyloprim] 100 mg PO DAILY 01/18/17 [History] Calcitriol [Rocaltrol] 0.25 mcg PO MOWEFR 01/18/17 [History] Atenolol [Tenormin] 50 mg PO BID 10/10/17 [History] Glimepiride [Amaryl] 1 mg PO AC-BID 10/10/17 [History] Spironolactone [Aldactone] 12.5 mg PO DAILY 10/10/17 [History] Sodium Bicarbonate Tab 650 mg PO BID #60 tab 02/22/18 [Rx] Acetaminophen [Tylenol] 1,000 mg PO Q8H PRN 05/22/18 [History] Torsemide [Demadex] 20 mg PO DAILY 11/20/18 [History] Cholecalciferol (Vitamin D3) [Vitamin D3] 4,000 unit PO DAILY 05/26/19 [History] Cephalexin [Keflex] 500 mg PO Q12HR #10 cap 05/28/19 [Rx] Nitrofurantoin Macrocrystal [Nitrofurantoin] 100 mg PO AC-BID #10 capsule 05/28/19 [Rx] Torsemide 10 mg PO HS #30 tablet 05/28/19 [Rx] Follow up Appointment(s)/Referral(s): Phil Blood MD [Primary Care Provider] - 06/03/19 1:45 pm () Sofia Child MD [STAFF PHYSICIAN] - 06/01/19 1:40 pm (Friday -previously scheduled appointment) Erik Argueta MD [STAFF PHYSICIAN] - 05/31/19 9:30 am (Friday for venous mapping ) Patient Instructions/Handouts: Heart Failure (DC), Chronic Kidney Disease (DC) Discharge Disposition: HOME SELF-CARE
== END 2019-05-28 11:39 | disposition home or self-care (01) ==
LOC: EC 19:21 → 3SCARD 23:02
PROVIDERS: ADMIT Internal Medicine; ATTEND Internal Medicine
DX: I13.2 Hypertensive heart and chronic kidney disease with heart failure and with stage 5 chronic kidney disease, or end stage renal disease (principal); I50.43 Acute on chronic combined systolic (congestive) and diastolic (congestive) heart failure; N18.4 Chronic kidney disease, stage 4 (severe); I48.1 Persistent atrial fibrillation; I44.2 Atrioventricular block, complete; E87.2 Acidosis; N39.0 Urinary tract infection, site not specified; I42.8 Other cardiomyopathies; E03.9 Hypothyroidism, unspecified; I27.21 Secondary pulmonary arterial hypertension; I08.3 Combined rheumatic disorders of mitral, aortic and tricuspid valves; I49.5 Sick sinus syndrome; I25.10 Atherosclerotic heart disease of native coronary artery without angina pectoris; E78.5 Hyperlipidemia, unspecified; E11.22 Type 2 diabetes mellitus with diabetic chronic kidney disease; H91.90 Unspecified hearing loss, unspecified ear; G47.33 Obstructive sleep apnea (adult) (pediatric); Z99.89 Dependence on other enabling machines and devices; K21.9 Gastro-esophageal reflux disease without esophagitis; Z79.01 Long term (current) use of anticoagulants; Z79.890 Hormone replacement therapy; Z79.899 Other long term (current) drug therapy; Z88.0 Allergy status to penicillin; Z88.2 Allergy status to sulfonamides; Z88.5 Allergy status to narcotic agent; Z95.0 Presence of cardiac pacemaker; Z90.710 Acquired absence of both cervix and uterus; I25.2 Old myocardial infarction; Z87.440 Personal history of urinary (tract) infections; Z16.24 Resistance to multiple antibiotics; Z86.718 Personal history of other venous thrombosis and embolism; Z98.49 Cataract extraction status, unspecified eye; Z82.49 Family history of ischemic heart disease and other diseases of the circulatory system; Z83.49 Family history of other endocrine, nutritional and metabolic diseases; Z80.9 Family history of malignant neoplasm, unspecified
CPT/HCPCS: 96376 ×2; 96374; 99285; 36415; 93005; 93306; 83880; 80053; 80048 ×2; 84443; 82550; 84484; 85025 ×2; 85610; 85730; 81001; 87086; 87077; 87186; 71046 ×2; G0378 ×3; J1940 ×3

== ENCOUNTER 2019-08-16 15:52 | Inpatient (IN) | payer MEDICARE ==
[2019-08-16] MEDS ORDERED: IPRATROPIUM-ALBUTEROL 3 ML NEB INHALATION STA (16:20)
[2019-08-16] MEDS ORDERED: FUROSEMIDE 10 MG/ML 4 ML VIAL IV STA (16:20)
--- NOTE | 2019-08-16 16:23 | ED ---
General Adult HPI - General Chief complaint: Shortness of Breath Stated complaint: SOB Time Seen by Provider: 08/16/19 16:01 Source: patient, RN notes reviewed Mode of arrival: ambulatory Limitations: no limitations - History of Present Illness Initial comments: Patient is a pleasant 83-year-old female presenting to the emergency department with difficulty breathing. Onset of symptoms was yesterday. Minimal cough. Patient does have leg swelling and weight gain per family. Patient does have history of similar symptoms previously associated with CHF. Patient has fatigue, especially with exertion.no fever. - Related Data Home Medications Medication Instructions Recorded Confirmed Levothyroxine Sodium [Synthroid] 100 mcg PO DAILY 01/31/14 08/16/19 Apixaban [Eliquis] 2.5 mg PO BID 10/12/16 08/16/19 Flecainide [Tambocor] 50 mg PO BID 10/12/16 08/16/19 Multivitamins, Thera [Multivitamin 1 tab PO DAILY 12/10/16 08/16/19 (formulary)] Allopurinol [Zyloprim] 100 mg PO DAILY 01/18/17 08/16/19 Calcitriol [Rocaltrol] 0.25 mcg PO MOTUWETHFR 01/18/17 08/16/19 Atenolol [Tenormin] 50 mg PO BID 10/10/17 08/16/19 Glimepiride [Amaryl] 1 mg PO AC-BID 10/10/17 08/16/19 Spironolactone [Aldactone] 12.5 mg PO DAILY 10/10/17 08/16/19 Acetaminophen [Tylenol] 1,000 mg PO Q8H PRN 05/22/18 08/16/19 Torsemide [Demadex] 10 mg PO TID 11/20/18 08/16/19 Cholecalciferol (Vitamin D3) 4,000 unit PO DAILY 05/26/19 08/16/19 [Vitamin D3] Pantoprazole [Protonix] 40 mg PO DAILY 08/16/19 08/16/19 Previous Rx's Medication Instructions Recorded Simvastatin [Zocor] 20 mg PO HS #90 tab 12/13/16 Sodium Bicarbonate Tab 650 mg PO BID #60 tab 02/22/18 Allergies Allergy/AdvReac Type Severity Reaction Status Date / Time meperidine HCl [From Demerol] Allergy Nausea & Verified 08/16/19 16:51 Vomiting Penicillins Allergy Rash/Hives Verified 08/16/19 16:51 Sulfa (Sulfonamide Allergy Rash/Hives Verified 08/16/19 16:51 Antibiotics) Review of Systems ROS Statement: Those systems with pertinent positive or pertinent negative responses have been documented in the HPI. ROS Other: All systems not noted in ROS Statement are negative. Constitutional: Denies: fever, chills Eyes: Denies: eye pain ENT: Denies: ear pain Respiratory: Reports: dyspnea Cardiovascular: Denies: chest pain Endocrine: Reports: fatigue Gastrointestinal: Denies: abdominal pain Genitourinary: Denies: dysuria Musculoskeletal: Denies: back pain Skin: Denies: rash Neurological: Denies: weakness Past Medical History Past Medical History: Atrial Fibrillation, Heart Failure, Diabetes Mellitus, GERD/Reflux, Hyperlipidemia, Hypertension, Myocardial Infarction ([place]), Sleep Apnea/CPAP/BIPAP, Thyroid Disorder Additional Past Medical History / Comment(s): uti's,PALPITATIONS, patient states kidney function tests are not normal and see saw Dr Child about it. Uses CPAP machine. Sick Sinus Syndrome with pacemaker, chronic afib. Stage 4 kidney disease. Last Myocardial Infarction Date:: 32 years ago History of Any Multi-Drug Resistant Organisms: ESBL Date of last positivie culture/infection: 07/03/18 ESBL E.coli MDRO Source:: URINE Past Surgical History: Hysterectomy, Pacemaker Additional Past Surgical History / Comment(s): hemmorrhoidectomy/rectocele/cystocele, cataracts,. vein stripping Past Anesthesia/Blood Transfusion Reactions: No Reported Reaction Type of Cardiac Device: Permanent Pacemaker Device Placement Date:: 01/2017 Past Psychological History: No Psychological Hx Reported Smoking Status: Never smoker Past Alcohol Use History: None Reported Past Drug Use History: None Reported - Past Family History Father Family Medical History: Coronary Artery Disease (CAD), Hyperlipidemia, Hypertension, Myocardial Infarction ([place]) Mother Family Medical History: Unable to Obtain Sister(s) Family Medical History: Cancer General Exam Limitations: no limitations General appearance: alert, in no apparent distress Head exam: Present: normocephalic Eye exam: Present: normal appearance, PERRL ENT exam: Present: normal oropharynx Neck exam: Present: normal inspection Respiratory exam: Present: decreased breath sounds Cardiovascular Exam: Present: regular rate, normal rhythm GI/Abdominal exam: Present: soft. Absent: tenderness Extremities exam: Present: pedal edema. Absent: calf tenderness Neurological exam: Present: alert Psychiatric exam: Present: normal affect, normal mood Skin exam: Present: normal color Course Vital Signs 08/16/19 08/16/19 08/16/19 15:56 16:30 16:36 Temperature 97.6 F Pulse Rate 70 65 65 Respiratory 18 Rate Blood Pressure 176/74 149/56 O2 Sat by Pulse 100 98 Oximetry 08/16/19 08/16/19 08/16/19 16:38 16:46 17:00 Temperature Pulse Rate 68 68 Respiratory 20 20 Rate Blood Pressure O2 Sat by Pulse Oximetry EKG Findings - EKG Comments: EKG Findings:: paced rhythm with a rate of 68. QRS 180. QT or 84. QTC 514. Left axis. Wide-complex QRS. Nonspecific ST-T. Medical Decision Making - Medical Decision Making patient reevaluated and resting comfortably in bed. Patient and family updated on results and plan. Case discussed in detail with Dr. Buckley, covering for Dr. Blood, who will admit. Research done on previous urine cultures. Patient will be started on Rocephin. Nephrology will be placed on consult. - Lab Data Result diagrams: 08/16/19 16:10 08/16/19 16:10 Lab Results 08/16/19 08/16/19 08/16/19 Range/Units 16:10 16:10 16:10 WBC 7.3 (3.8-10.6) k/uL RBC 3.42 L (3.80-5.40) m/uL Hgb 10.7 L (11.4-16.0) gm/dL Hct 33.4 L (34.0-46.0) % MCV 97.8 (80.0-100.0) fL MCH 31.4 (25.0-35.0) pg MCHC 32.1 (31.0-37.0) g/dL RDW 13.5 (11.5-15.5) % Plt Count 202 (150-450) k/uL Neutrophils % 65 % Lymphocytes % 25 % Monocytes % 5 % Eosinophils % 2 % Basophils % 0 % Neutrophils # 4.7 (1.3-7.7) k/uL Lymphocytes # 1.8 (1.0-4.8) k/uL Monocytes # 0.4 (0-1.0) k/uL Eosinophils # 0.2 (0-0.7) k/uL Basophils # 0.0 (0-0.2) k/uL PT (9.0-12.0) sec INR (<1.2) APTT (22.0-30.0) sec Sodium 141 (137-145) mmol/L Potassium 5.2 H (3.5-5.1) mmol/L Chloride 107 (98-107) mmol/L Carbon Dioxide 22 (22-30) mmol/L Anion Gap 12 mmol/L BUN 92 H (7-17) mg/dL Creatinine 3.27 H (0.52-1.04) mg/dL Est GFR (CKD-EPI)AfAm 14 (>60 ml/min/1.73 sqM) Est GFR (CKD-EPI)NonAf 12 (>60 ml/min/1.73 sqM) Glucose 144 H (74-99) mg/dL Calcium 9.3 (8.4-10.2) mg/dL Total Bilirubin 0.3 (0.2-1.3) mg/dL AST 18 (14-36) U/L ALT 13 (4-34) U/L Alkaline Phosphatase 98 (38-126) U/L Troponin I (0.000-0.034) ng/mL NT-Pro-B Natriuret Pep 7340 pg/mL Total Protein 7.0 (6.3-8.2) g/dL Albumin 4.3 (3.5-5.0) g/dL Urine Color Urine Appearance (Clear) Urine pH (5.0-8.0) Ur Specific [place] (1.001-1.035) Urine Protein (Negative) Urine Glucose (UA) (Negative) Urine Ketones (Negative) Urine Blood (Negative) Urine Nitrite (Negative) Urine Bilirubin (Negative) Urine Urobilinogen (<2.0) mg/dL Ur Leukocyte Esterase (Negative) Urine RBC (0-5) /hpf Urine WBC (0-5) /hpf Urine WBC Clumps (None) /hpf Ur Squamous Epith Cells (0-4) /hpf Urine Mucus (None) /hpf 08/16/19 08/16/19 08/16/19 Range/Units 16:10 16:10 16:22 WBC (3.8-10.6) k/uL RBC (3.80-5.40) m/uL Hgb (11.4-16.0) gm/dL Hct (34.0-46.0) % MCV (80.0-100.0) fL MCH (25.0-35.0) pg MCHC (31.0-37.0) g/dL RDW (11.5-15.5) % Plt Count (150-450) k/uL Neutrophils % % Lymphocytes % % Monocytes % % Eosinophils % % Basophils % % Neutrophils # (1.3-7.7) k/uL Lymphocytes # (1.0-4.8) k/uL Monocytes # (0-1.0) k/uL Eosinophils # (0-0.7) k/uL Basophils # (0-0.2) k/uL PT 9.8 (9.0-12.0) sec INR 0.9 (<1.2) APTT 23.6 (22.0-30.0) sec Sodium (137-145) mmol/L Potassium (3.5-5.1) mmol/L Chloride (98-107) mmol/L Carbon Dioxide (22-30) mmol/L Anion Gap mmol/L BUN (7-17) mg/dL Creatinine (0.52-1.04) mg/dL Est GFR (CKD-EPI)AfAm (>60 ml/min/1.73 sqM) Est GFR (CKD-EPI)NonAf (>60 ml/min/1.73 sqM) Glucose (74-99) mg/dL Calcium (8.4-10.2) mg/dL Total Bilirubin (0.2-1.3) mg/dL AST (14-36) U/L ALT (4-34) U/L Alkaline Phosphatase (38-126) U/L Troponin I 0.013 (0.000-0.034) ng/mL NT-Pro-B Natriuret Pep pg/mL Total Protein (6.3-8.2) g/dL Albumin (3.5-5.0) g/dL Urine Color Light Yellow Urine Appearance Clear (Clear) Urine pH 5.5 (5.0-8.0) Ur Specific [place] 1.011 (1.001-1.035) Urine Protein Trace H (Negative) Urine Glucose (UA) Negative (Negative) Urine Ketones Negative (Negative) Urine Blood Negative (Negative) Urine Nitrite Negative (Negative) Urine Bilirubin Negative (Negative) Urine Urobilinogen <2.0 (<2.0) mg/dL Ur Leukocyte Esterase Large H (Negative) Urine RBC 1 (0-5) /hpf Urine WBC 110 H (0-5) /hpf Urine WBC Clumps Many H (None) /hpf Ur Squamous Epith Cells 3 (0-4) /hpf Urine Mucus Rare H (None) /hpf - Radiology Data Radiology results: image reviewed (Chest x-ray shows fibrosis) Disposition Clinical Impression: CHF (congestive heart failure), CKD (chronic kidney disease), Dyspnea, Urinary tract infection Disposition: ADMITTED IP TO THIS HOSP Is patient prescribed a controlled substance at d/c from ED?: No Referrals: Phil Blood MD [Primary Care Provider] - 1-2 days Decision Time: 17:56
[2019-08-16 16:30] LABS: Basophils % (A) 0 %; Eosinophils # (A) 0.2 k/uL (0-0.7); Eosinophils % (A) 2 %; HCT 33.4 % (34.0-46.0); HGB 10.7 gm/dL (11.4-16.0); Lymphocytes # (A) 1.8 k/uL (1.0-4.8); Lymphocytes % (A) 25 %; MCH 31.4 pg (25.0-35.0); MCHC 32.1 g/dL (31.0-37.0); MCV 97.8 fL (80.0-100.0); Mean Platelet Volume 8.6; Monocytes # (A) 0.4 k/uL (0-1.0); Monocytes % (A) 5 %; Neutrophils # (A) 4.7 k/uL (1.3-7.7); Neutrophils % (A) 65 %; Platelet Count 202 k/uL (150-450); RBC 3.42 m/uL (3.80-5.40); RDW 13.5 % (11.5-15.5); WBC 7.3 k/uL (3.8-10.6)
[2019-08-16 16:46] LABS: Appearance,Urine Clear (Clear); Bilirubin,Urine Negative (Negative); Blood,Urine Negative (Negative); Color,Urine Light Yellow; Glucose,Urine (UA) Negative (Negative); Ketones,Urine Negative (Negative); Leukocyte Esterase,Urine Large (Negative); Mucus,Urine Rare /hpf; Nitrite,Urine Negative (Negative); PH, Urine 5.5 (5.0-8.0); Protein,Urine Trace (Negative); RBC,Urine 1 /hpf (0-5); Specific Gravity,Urine 1.011 (1.001-1.035); Squamous Epithelial Cell,Urine 3 /hpf (0-4); Urobilinogen,Urine <2.0 mg/dL (<2.0); WBC,Urine 110 /hpf (0-5)
[2019-08-16 16:48] LABS: INR 0.9 (<1.2); Partial Thromboplastin Time 23.6 sec (22.0-30.0); Prothrombin Time 9.8 sec (9.0-12.0)
[2019-08-16 16:51] LABS: Albumin 4.3 g/dL (3.5-5.0); Calcium 9.3 mg/dL (8.4-10.2); Potassium 5.2 mmol/L (3.5-5.1); Total Bilirubin 0.3 mg/dL (0.2-1.3)
--- NOTE | 2019-08-16 17:36 | XR ---
EXAMINATION TYPE: XR chest 2V DATE OF EXAM: 08/16/2019 COMPARISON: 05/27/2019 HISTORY: Short of breath TECHNIQUE: 2 views FINDINGS: There is coarse interstitial density in the lungs. There is no pleural effusion. There is l eft axillary pacemaker. There is no obvious heart failure. There are chest leads. IMPRESSION: Pulmonary fibrosis. No heart failure. No significant change compared to old exam.
[2019-08-16] MEDS ORDERED: NALOXONE 0.4 MG/ML 1 ML VIAL IV PRN (17:56)
[2019-08-16] MEDS ORDERED: ASPIRIN 325 MG TAB PO STA (17:59)
[2019-08-16] MEDS: SODIUM CHLORIDE 0.9% 1,000 ML IV SCH (18:12)
[2019-08-16] MEDS: NITROGLYCERIN OINT 1 INCH/GM PACKET TOPICAL SCH ×2 (18:15→22:14)
[2019-08-16 20:54] LABS: Glucose,Whole Blood 166 mg/dL (75-99)
[2019-08-16] MEDS ORDERED: ACETAMINOPHEN TAB 500 MG TAB PO PRN (21:54)
[2019-08-16] MEDS: ATORVASTATIN 10 MG TAB PO SCH (22:14)
[2019-08-16] MEDS: SODIUM BICARBONATE TAB 650 MG TAB PO SCH (22:14)
[2019-08-16] MEDS: APIXABAN 2.5 MG TABLET PO SCH (22:14)
[2019-08-16] MEDS: ATENOLOL 50 MG TAB PO SCH (22:14)
[2019-08-16] MEDS: FLECAINIDE 50 MG TAB PO SCH (22:14)
[2019-08-16] MEDS: TORSEMIDE 20 MG TAB PO SCH (22:16)
[2019-08-17 00:41] VITALS: RESP 18
--- NOTE | 2019-08-17 01:14 | P.HPIM ---
History of Present Illness H&P Date: 08/16/19 Chief Complaint: Exertional dyspnea, urinary symptoms 83-year-old female with extensive past medical history Patient comes in due to 1 day history of difficulty in breathing with mild to moderate exertion. Patient also noticed weight gain of 5 pounds today with worsening of her leg swelling. For which she decided come to the hospital for evaluation most recent hospitalization back in May she had diastolic and systolic congestive heart failure exacerbation left ventricular EF was 50-55%. Since then she's been doing well. She denies any associated chest pain however she noticed worsening exertional dyspnea with [id number] exertion over the past 1-2 days today had worsening symptoms and she was afraid that she will get worse. She denies any sick contacts she denies any recent traveling. She reports that recently had a right arm fistula. She also reports associated dysuria and frequent urination with sensation of incomplete emptying of her bladder along with suprapubic abdominal discomfort denies any hematuria denies any nausea vomiting denies any back pain denies any fevers or chills. Patient doesn't use any home oxygen, she uses a walker. But she's been having difficulties climbing stairs recently due to worsening exertional dyspnea She reports that she is compliant with her medications In the ED blood work showed anemia at her baseline elevated creatinine with CK D stage IV at baseline vital signs are stable. EKG showed ventricular paced rhythm. Urine was positive for leukocyte esterases. Chest x-ray showed pulmonary fibrosis. Review of Systems Pertinent positives as noted in HPI. All other systems were reviewed and are negative Past Medical History Past Medical History: Atrial Fibrillation, Heart Failure, Diabetes Mellitus, GERD/Reflux, Hyperlipidemia, Hypertension, Myocardial Infarction ([place]), Sleep Apnea/CPAP/BIPAP, Thyroid Disorder Additional Past Medical History / Comment(s): uti's,PALPITATIONS, patient states kidney function tests are not normal and see saw Dr Child about it. Uses CPAP machine. Sick Sinus Syndrome with pacemaker, chronic afib. Stage 4 kidney disease. Last Myocardial Infarction Date:: 32 years ago History of Any Multi-Drug Resistant Organisms: ESBL Date of last positivie culture/infection: 07/03/18 ESBL E.coli MDRO Source:: URINE Past Surgical History: Hysterectomy, Pacemaker Additional Past Surgical History / Comment(s): hemmorrhoidectomy/r ectocele/cystocele, cataracts,. vein stripping Past Anesthesia/Blood Transfusion Reactions: No Reported Reaction Type of Cardiac Device: Permanent Pacemaker Device Placement Date:: 01/2017 Past Psychological History: No Psychological Hx Reported Additional Psychological History / Comment(s): lives in own home has 2 steps into home. recieved cleaning services .no pets. gets meals on wheels. has cpap machine,rolling walker /cane. has life alert necklace. she is an adult daughter and son-in-law who help her with day to day needs including shopping and transporter as needed. If she needs to have outpatient antibiotic therapy it would come and stay with her. Smoking Status: Never smoker Past Alcohol Use History: None Reported Past Drug Use History: None Reported - Past Family History Father Family Medical History: Coronary Artery Disease (CAD), Hyperlipidemia, Hypertension, Myocardial Infarction ([place]) Mother Family Medical History: Unable to Obtain Sister(s) Family Medical History: Cancer Medications and Allergies Home Medications Medication Instructions Recorded Confirmed Type Levothyroxine Sodium [Synthroid] 100 mcg PO DAILY 01/31/14 08/16/19 History Apixaban [Eliquis] 2.5 mg PO BID 10/12/16 08/16/19 History Flecainide [Tambocor] 50 mg PO BID 10/12/16 08/16/19 History Multivitamins, Thera [Multivitamin 1 tab PO DAILY 12/10/16 08/16/19 History (formulary)] Simvastatin [Zocor] 20 mg PO HS #90 tab 12/13/16 08/16/19 Rx Allopurinol [Zyloprim] 100 mg PO DAILY 01/18/17 08/16/19 History Calcitriol [Rocaltrol] 0.25 mcg PO MOTUWETHFR 01/18/17 08/16/19 History Atenolol [Tenormin] 50 mg PO BID 10/10/17 08/16/19 History Glimepiride [Amaryl] 1 mg PO AC-BID 10/10/17 08/16/19 History Spironolactone [Aldactone] 12.5 mg PO DAILY 10/10/17 08/16/19 History Sodium Bicarbonate Tab 650 mg PO BID #60 tab 02/22/18 08/16/19 Rx Acetaminophen [Tylenol] 1,000 mg PO Q8H PRN 05/22/18 08/16/19 History Torsemide [Demadex] 10 mg PO TID 11/20/18 08/16/19 History Cholecalciferol (Vitamin D3) 4,000 unit PO DAILY 05/26/19 08/16/19 History [Vitamin D3] Pantoprazole [Protonix] 40 mg PO DAILY 08/16/19 08/16/19 History Allergies Allergy/AdvReac Type Severity Reaction Status Date / Time meperidine HCl [From Demerol] Allergy Nausea & Verified 08/16/19 16:51 Vomiting Penicillins Allergy Rash/Hives Verified 08/16/19 16:51 Sulfa (Sulfonamide Allergy Rash/Hives Verified 08/16/19 16:51 Antibiotics) Physical Exam Vitals: Vital Signs Temp Pulse Pulse Resp BP BP Pulse Ox 08/16/19 19:00 60 16 146/50 100 08/16/19 18:49 97.5 F L 60 18 171/104 100 08/16/19 18:30 18 168/58 08/16/19 18:00 60 18 162/62 98 08/16/19 17:30 66 16 147/87 70 L 08/16/19 17:00 65 18 149/56 08/16/19 16:46 68 08/16/19 16:38 20 08/16/19 16:36 65 08/16/19 16:30 65 149/56 98 08/16/19 15:56 97.6 F 70 18 176/74 100 Intake and Output 08/16/19 08/16/19 08/16/19 06:59 14:59 22:59 Other: Weight 100.244 kg Constitutional: No acute distress, conversant, pleasant Eyes: Anicteric sclerae, moist conjunctiva, no lid-lag Pupils equal round reactive to light ENMT: NC/AT Oropharynx clear, no erythema, exudates Neck: Supple, FROM, no masses, or JVD No carotid bruits No thyromegaly Lungs: Clear to auscultation Clear to percussion Normal respiratory effort, no accessory muscle use Cardiovascular: Heart regular in rate and rhythm, No murmurs, gallops, or rubs +2 bilateral leg edema Abdominal: Soft, tenderness to deep palpation of the suprapubic region no guarding, rebound or rigidity Abdomen moving with respiration Normoactive bowel sounds No hepatomegaly, No splenomegaly No palpable mass No abdominal wall hernia noted Skin: Normal temperature, tone, texture, turgor No induration No subcutaneous nodules No rash, lesions No ulcers Extremities: palpable thrill over right AV fistula No digital cyanosis No clubbing Pedal pulses weak and symmetrical, toes warm to the touch, capillary refill immediate Radial pulses intact and symmetrical No calf tenderness Psychiatric: Alert and oriented to person, place and time Appropriate affect fair judgement Neuro Muscles Strength 5/5 in all 4 extremities Sensation to light touch grossly present throughout Cranial nerves II-XII grossly intact No focal sensory deficits Lymphatics: no palpable cervical or supraclavicular , or inguinal lymph nodes Results CBC & Chem 7: 08/16/19 16:10 08/16/19 16:10 Labs: Abnormal Lab Results - Last 24 Hours (Table) 08/16/19 08/16/19 08/16/19 Range/Units 16:10 16:10 16:22 RBC 3.42 L (3.80-5.40) m/uL Hgb 10.7 L (11.4-16.0) gm/dL Hct 33.4 L (34.0-46.0) % Potassium 5.2 H (3.5-5.1) mmol/L BUN 92 H (7-17) mg/dL Creatinine 3.27 H (0.52-1.04) mg/dL Glucose 144 H (74-99) mg/dL Urine Protein Trace H (Negative) Ur Leukocyte Esterase Large H (Negative) Urine WBC 110 H (0-5) /hpf Urine WBC Clumps Many H (None) /hpf Urine Mucus Rare H (None) /hpf Thrombosis Risk Factor Assmnt - Choose All That Apply Any of the Below Risk Factors Present?: Yes Each Factor Represents 1 point: Medical pt on bed rest, Obesity (BMI >25), Swollen legs (current) Other Risk Factors: Yes Each Risk Factor Represents 3 Points: Age 75 years or older Thrombosis Risk Factor Assessment Total Risk Factor Score: 6 Thrombosis Risk Factor Assessment Level: High Risk Assessment and Plan Assessment: 83-year-old female with extensive past medical history Comes in due to urinary symptoms and exertional difficulty in breathing patient was found to have urinary tract infection and possible underlying mild diastolic CHF exacerbation with weight gain and leg swelling admitted for diuresis and treatment of UTI Anticipated length of stay more than 2 midnight Plan: urinary tract infection acute on chronic diastolic CHF exacerbation, NYHA class 3 stage 4 CKD afib s/p pace maker, on eliquis anemia of chronic disease, stable at baseline, denies any GI bleeding hypothyroid hypertension diabetes mellitus HARRIS, on cpap patient started on IV diuretics rocephine , follow up cultures resume home meds daily 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
[2019-08-17 06:17] LABS: Glucose,Whole Blood 118 mg/dL (75-99)
[2019-08-17 06:37] LABS: Potassium 4.5 mmol/L (3.5-5.1)
[2019-08-17] MEDS: LEVOTHYROXINE 100 MCG TAB PO SCH (06:46)
[2019-08-17] MEDS ORDERED: INSULIN ASPART (NovoLOG) 100 UNIT/ML VIAL SQ SCH (07:30)
[2019-08-17] MEDS: SPIRONOLACTONE 25 MG TAB PO SCH (09:00)
[2019-08-17] MEDS: ASPIRIN 325 MG TAB PO SCH (09:02)
[2019-08-17] MEDS: APIXABAN 2.5 MG TABLET PO SCH ×2 (09:02→20:17)
[2019-08-17] MEDS: SODIUM BICARBONATE TAB 650 MG TAB PO SCH ×2 (09:02→20:17)
[2019-08-17] MEDS: ALLOPURINOL 100 MG TAB PO SCH (09:02)
[2019-08-17] MEDS: TORSEMIDE 20 MG TAB PO SCH ×3 (09:02→20:17)
[2019-08-17] MEDS: CALCITRIOL 0.25 MCG CAP PO SCH (09:02)
[2019-08-17] MEDS: PANTOPRAZOLE 40 MG TABLET PO SCH (09:02)
[2019-08-17] MEDS: ATENOLOL 50 MG TAB PO SCH ×2 (09:02→20:17)
[2019-08-17] MEDS: NITROGLYCERIN OINT 1 INCH/GM PACKET TOPICAL SCH ×4 (09:03→20:17)
[2019-08-17] MEDS ORDERED: hydrALAZINE HCL 20 MG/ML 1 ML VIAL IVP PRN (11:17)
--- NOTE | 2019-08-17 11:19 | P.NPCON ---
History of Present Illness - Reason for Consult acute renal failure, chronic renal failure - History of Present Illness Reason for consultation: Acute kidney injury on chronic kidney disease History of present illness: Patient is a 83-year-old female seen in renal consultation for acute kidney injury on chronic kidney disease. Patient has chronic kidney disease stage IV with baseline creatinine near 2.2. Etiology is diabetic kidney disease and cardiorenal syndrome. Patient has a maturing upper extremity AV fistula. Patient presented to the hospital due to dyspnea and edema. Patient states she takes 20 mg of torsemide in the morning and 10 mg in the afternoon. Patient had noticed about 4 pound weight gain and decided to come to the hospital. Patient states her edema has improved. She has good urine output. No hematuria or dysuria. Patient has chronic diastolic CHF and mild to moderate tricuspid regurgitation and moderate pulmonary hypertension. Hemodynamically she is stable. Blood sugars are controlled. Denies active chest pain or shortness of breath. Denies use of nonsteroidals. UA is suggestive of UTI. Vital signs are stable. General: The patient appeared well nourished and normally developed. HEENT: Head exam is unremarkable. Neck is without jugular venous distension. LUNGS: Lungs are clear to auscultation and percussion. Breath sounds decreased. HEART: Rate and Rhythm are regular. First and second heart sounds normal. No murmurs, rubs or gallops. ABDOMEN: Abdominal exam reveals normal bowel sounds. Non-tender and non- distended. No evidence of peritonitis. EXTREMITITES: No clubbing, cyanosis, or edema. Past Medical History Past Medical History: Atrial Fibrillation, Heart Failure, Diabetes Mellitus, GERD/Reflux, Hyperlipidemia, Hypertension, Myocardial Infarction ([place]), Sleep Apnea/CPAP/BIPAP, Thyroid Disorder Additional Past Medical History / Comment(s): uti's,PALPITATIONS, patient states kidney function tests are not normal and see saw Dr Child about it. Uses CPAP machine. Sick Sinus Syndrome with pacemaker, chronic afib. Stage 4 kidney disease. Last Myocardial Infarction Date:: 32 years ago History of Any Multi-Drug Resistant Organisms: ESBL Date of last positivie culture/infection: 07/03/18 ESBL E.coli MDRO Source:: URINE Past Surgical History: Hysterectomy, Pacemaker Additional Past Surgical History / Comment(s): hemmorrhoidecto my/rectocele/cystocele, cataracts,. vein stripping Past Anesthesia/Blood Transfusion Reactions: No Reported Reaction Type of Cardiac Device: Permanent Pacemaker Device Placement Date:: 01/2017 Past Psychological History: No Psychological Hx Reported Additional Psychological History / Comment(s): lives in own home has 2 steps into home. recieved cleaning services .no pets. gets meals on wheels. has cpap machine,rolling walker /cane. has life alert necklace. she is an adult daughter and son-in-law who help her with day to day needs including shopping and transporter as needed. If she needs to have outpatient antibiotic therapy it would come and stay with her. Smoking Status: Never smoker Past Alcohol Use History: None Reported Past Drug Use History: None Reported - Past Family History Father Family Medical History: Coronary Artery Disease (CAD), Hyperlipidemia, Hypertension, Myocardial Infarction ([place]) Mother Family Medical History: Unable to Obtain Sister(s) Family Medical History: Cancer Medications and Allergies Home Medications Medication Instructions Recorded Confirmed Type Levothyroxine Sodium [Synthroid] 100 mcg PO DAILY 01/31/14 08/16/19 History Apixaban [Eliquis] 2.5 mg PO BID 10/12/16 08/16/19 History Flecainide [Tambocor] 50 mg PO BID 10/12/16 08/16/19 History Multivitamins, Thera [Multivitamin 1 tab PO DAILY 12/10/16 08/16/19 History (formulary)] Simvastatin [Zocor] 20 mg PO HS #90 tab 12/13/16 08/16/19 Rx Allopurinol [Zyloprim] 100 mg PO DAILY 01/18/17 08/16/19 History Calcitriol [Rocaltrol] 0.25 mcg PO MOTUWETHFR 01/18/17 08/16/19 History Atenolol [Tenormin] 50 mg PO BID 10/10/17 08/16/19 History Glimepiride [Amaryl] 1 mg PO AC-BID 10/10/17 08/16/19 History Spironolactone [Aldactone] 12.5 mg PO DAILY 10/10/17 08/16/19 History Sodium Bicarbonate Tab 650 mg PO BID #60 tab 02/22/18 08/16/19 Rx Acetaminophen [Tylenol] 1,000 mg PO Q8H PRN 05/22/18 08/16/19 History Torsemide [Demadex] 10 mg PO TID 11/20/18 08/16/19 History Cholecalciferol (Vitamin D3) 4,000 unit PO DAILY 05/26/19 08/16/19 History [Vitamin D3] Pantoprazole [Protonix] 40 mg PO DAILY 08/16/19 08/16/19 History Allergies Allergy/AdvReac Type Severity Reaction Status Date / Time meperidine HCl [From Demerol] Allergy Nausea & Verified 08/16/19 16:51 Vomiting Penicillins Allergy Rash/Hives Verified 08/16/19 16:51 Sulfa (Sulfonamide Allergy Rash/Hives Verified 08/16/19 16:51 Antibiotics) Physical Exam Vitals: Vital Signs Temp Pulse Pulse Resp BP BP Pulse Ox 08/17/19 08:00 97.4 F L 62 177/66 100 08/17/19 03:06 68 18 158/65 98 08/16/19 23:34 98 F 65 18 163/60 99 08/16/19 19:00 60 16 146/50 100 08/16/19 18:49 97.5 F L 60 18 171/104 100 08/16/19 18:30 18 168/58 08/16/19 18:00 60 18 162/62 98 08/16/19 17:30 66 16 147/87 70 L 08/16/19 17:00 65 18 149/56 08/16/19 16:46 68 08/16/19 16:38 20 08/16/19 16:36 65 08/16/19 16:30 65 149/56 98 08/16/19 15:56 97.6 F 70 18 176/74 100 Intake and Output 08/16/19 08/17/19 08/17/19 22:59 06:59 14:59 Intake Total 120 Output Total 400 Balance -400 120 Intake: Oral 120 Output: Urine 400 Other: Voiding Method Bedside Commode # Voids 1 1 # Bowel Movements 1 Weight 100.244 kg 97.7 kg Results - Lab Results Most recent lab results Calcium 9.0 mg/dL (8.4-10.2) 08/17/19 05:57 08/16/19 16:10 08/17/19 05:57 Assessment and Plan Plan: Assessment: 1. Acute kidney injury mostly prerenal secondary to cardiorenal syndrome. Creatinine was 3.7 on admission and is down to 2.87 today. 2. Chronic kidney disease stage IV with baseline creatinine near 2.2 secondary to diabetic kidney disease and cardiorenal syndrome. Patient has a maturing upper extremity AV fistula. 3. Chronic diastolic CHF with mild to moderate tricuspid regurgitation and moderate pulmonary hypertension. 4. Diabetes mellitus. 5. Metabolic acidosis secondary to acute kidney injury. 6. Chronic kidney disease mineral bone disease maintained on calcitriol. 7. UTI maintained on antibiotics. 8. Hypertension with chronic kidney disease. Home meds resumed. Plan: Maintain home dose of torsemide. Continue oral sodium bicarbonate. Follow-up urine culture. Avoid nephrotoxins. Repeat electrolytes in the morning. No urgent need for renal replacement therapy at this time. I advised the patient to monitor her weight closely at home. To call our office is notices more than 3 pound weight gain or worsening of edema. Thank you for the consultation. I will continue to follow the patient with you during her hospital stay.
[2019-08-17 11:50] VITALS: BMI 34.7
[2019-08-17 11:53] LABS: Glucose,Whole Blood 163 mg/dL (75-99)
[2019-08-17] MEDS: FLECAINIDE 50 MG TAB PO SCH ×2 (12:51→20:17)
[2019-08-17 16:52] LABS: Glucose,Whole Blood 155 mg/dL (75-99)
[2019-08-17] MEDS: SODIUM CHLORIDE 0.9% 1,000 ML IV SCH (18:15)
--- NOTE | 2019-08-17 18:43 | P.PN ---
Subjective Progress Note Date: 08/17/19 (delayed charting seen at 0945) Principal diagnosis: shortness of breath Patient is an 83-year-old female with past medical history of chronic kidney disease stage IV with fistula in place, congestive heart failure with preserved ejection fraction, hypertension, dyslipidemia, multiple other comorbid conditions who presented to the ER with complaints of difficulty in breathing and a 5 pound weight gain. In the ER she underwent an extensive evaluation. Her initial vital signs showed an elevated blood pressure 176/74 but were otherwise within normal limits. Initial laboratory analysis showed a hemoglobin 10.7 which is at her baseline, erythema 5.2, creatinine 3.27 with normal baseline creatinine of approximately 2.4, urinalysis showed white blood cell count of 110.. Chest x-ray did not demonstrate any signs of heart failure did show some pulmonary fibrosis. He was found to clinically demonstrate congestive heart failure and an elevated BNP at 7340. She was given IV diuresis and admitted for further management of her congestive heart failure. She was also started on Rocephin for treatment of urinary tract infection. Patient seen and examined at bedside. She reports that her breathing is much better than on admission, no significant change in her lower extremity edema from baseline, no nausea, no vomiting, no shortness of breath. Her daughter is asking if she should continue to live alone. She states that she uses a rolling walker at baseline. She is not having any difficulty with dressing. She has Meals on Wheels and a sausage smoker are ready. She does not report any cognitive issues she doesn't forget to take her medications. She is able to tell me that her primary care physician is Dr. Blood, automatic clipper Dr. Velazco, kiln charger Dr. Starr. She states she feels her memory is good and that she does not need someone to live with her that she feels her daughter just wants to move in. We discussed that we will have physical therapy and occupational therapy evaluation. Spoke with Dr. Blood who feels that she is still okay to live independently. Objective - Vital Signs Vital signs: Vital Signs Temp 97.4 F L 08/17/19 08:00 Pulse 66 08/17/19 12:00 Resp 18 08/17/19 03:06 BP 148/55 08/17/19 12:00 Pulse Ox 98 08/17/19 12:00 Intake & Output 08/16/19 08/17/19 08/17/19 18:59 06:59 18:59 Intake Total 480 Output Total 400 Balance -400 480 Weight 100.244 kg 97.7 kg 97.7 kg Intake: Oral 480 Output: Urine 400 Other: Voiding Method Bedside Commode # Voids 1 1 # Bowel Movements 1 - Exam General: non toxic, no distress, appears at stated age Derm: warm, dry Head: atraumatic, normocephalic, symmetric Eyes: EOMI, no lid lag, anicteric sclera Mouth: no lip lesion, mucus membranes moist Cardiovascular: S1S2 reg, no murmur, positive posterior tibial pulse bilateral, Lungs: decreased bs bilateral, no rhonchi, no rales , no accessory muscle use Abdominal: soft, nontender to palpation, no guarding, no appreciable organomegaly Ext: no gross muscle atrophy, 1+ edema, no contractures Neuro: CN II-XI grossly intact, no focal neuro deficits Psych: Alert, oriented, appropriate affect - Labs CBC & Chem 7: 08/16/19 16:10 08/17/19 05:57 Labs: Abnormal Lab Results - Last 24 Hours (Table) 08/16/19 08/17/19 08/17/19 Range/Units 20:34 05:57 06:16 Chloride 110 H (98-107) mmol/L Carbon Dioxide 18 L (22-30) mmol/L BUN 94 H (7-17) mg/dL Creatinine 2.87 H (0.52-1.04) mg/dL Glucose 108 H (74-99) mg/dL POC Glucose (mg/dL) 166 H 118 H (75-99) mg/dL 08/17/19 08/17/19 Range/Units 11:51 16:51 Chloride (98-107) mmol/L Carbon Dioxide (22-30) mmol/L BUN (7-17) mg/dL Creatinine (0.52-1.04) mg/dL Glucose (74-99) mg/dL POC Glucose (mg/dL) 163 H 155 H (75-99) mg/dL Microbiology - Last 24 Hours (Table) 08/16/19 16:22 Urine Culture - Preliminary Urine,Voided Assessment and Plan Assessment: Acute exacerbation of diastolic congestive heart failure, NYHA class III with ejection fraction 50-55% -No indication to repeat echocardiogram -Continue with torsemide 30 mg daily, Aldactone -Strict I's and O's, daily weights -Continue with atenolol - not chronically on ARB and will not start due to CKD BETINA on CKD IV, with metabolic acoidosis, baseline creatinine 2.7 - Conitnue wih diuresis, Cr improving and likely due to heparorenal syndrome - continue with sodium bicarb - Nephro recs appreciated - avoid additional nephro toxic agents - repeat Cr in AM UTI present on admission - rocephine - await urine culture Diabetes mellitus type 2 -Hold Amaryl -Sliding-scale insulin -Follow blood sugars -Hemoglobin A1c 6.310/25/ Paroxysmal Atrial fibrillation, currently rate controlled -Continue with Eliquis for stroke prophylaxis and flecainide for rhythm control Chronic: Dyslipidemia Hypertension Hypothyroidism Vitamin D deficiency DVT prophylaxis: SCD Discussed with: Patient, nursing, Dr. Velazco Anticipated discharge: in AM Anticipated discharge place: home A total of 35 minutes was spent on the care of this complex patient more than 50% of the time was spent in counseling and care coordination.
[2019-08-17] MEDS: ATORVASTATIN 10 MG TAB PO SCH (20:17)
[2019-08-17 20:30] LABS: Glucose,Whole Blood 194 mg/dL (75-99)
[2019-08-18 06:20] LABS: Glucose,Whole Blood 145 mg/dL (75-99)
[2019-08-18] MEDS: LEVOTHYROXINE 100 MCG TAB PO SCH (06:23)
[2019-08-18 06:55] LABS: HGB 9.8 gm/dL (11.4-16.0); MCH 33.4 pg (25.0-35.0); MCHC 33.8 g/dL (31.0-37.0); MCV 98.8 fL (80.0-100.0); Mean Platelet Volume 8.7; Platelet Count 183 k/uL (150-450); RBC 2.94 m/uL (3.80-5.40); RDW 13.7 % (11.5-15.5); WBC 6.4 k/uL (3.8-10.6)
[2019-08-18 07:09] LABS: Calcium 9.2 mg/dL (8.4-10.2); Phosphorus 5.2 mg/dL (2.5-4.5); Potassium 4.4 mmol/L (3.5-5.1)
[2019-08-18] MEDS ORDERED: INSULIN ASPART (NovoLOG) 100 UNIT/ML VIAL SQ SCH (07:30)
[2019-08-18 08:09] VITALS: BP 120/56; PULSE 63; TEMP 98.2
[2019-08-18] MEDS: CALCITRIOL 0.25 MCG CAP PO SCH (08:17)
[2019-08-18] MEDS: ALLOPURINOL 100 MG TAB PO SCH (08:17)
[2019-08-18] MEDS: SODIUM BICARBONATE TAB 650 MG TAB PO SCH (08:17)
[2019-08-18] MEDS: FLECAINIDE 50 MG TAB PO SCH (08:17)
[2019-08-18] MEDS: TORSEMIDE 20 MG TAB PO SCH (08:17)
[2019-08-18] MEDS: PANTOPRAZOLE 40 MG TABLET PO SCH (08:18)
[2019-08-18] MEDS: APIXABAN 2.5 MG TABLET PO SCH (08:18)
[2019-08-18] MEDS: ASPIRIN 325 MG TAB PO SCH (08:18)
[2019-08-18] MEDS: NITROGLYCERIN OINT 1 INCH/GM PACKET TOPICAL SCH (08:18)
[2019-08-18] MEDS: ATENOLOL 50 MG TAB PO SCH (08:18)
[2019-08-18] MEDS: SPIRONOLACTONE 25 MG TAB PO SCH (08:18)
--- NOTE | 2019-08-18 10:38 | P.DS ---
Providers Date of admission: 08/16/19 17:56 Expected date of discharge: 08/18/19 Attending physician: Diogo Buckley MD Consults: 08/16/19 17:57 Consult Physician Urgent Consulting Provider: Sofia Child Consult Reason/Comments: renal failure Do you want consulting provider notified?: Yes Primary care physician: Phil Blood Hospital Course: Discharge Diagnosis: acute exacerbation of Diastolic CHF, EF 55% BETINA on CKD IV with fistula in place Group B strep UTI DM 2 Paroxysmal A fib on Eliquis HTN HLD Hypothyroidism Anemia of chronic kidney disease Hospital Course: Patient is an 83-year-old female with past medical history of chronic kidney disease stage IV with fistula in place, congestive heart failure with preserved ejection fraction, hypertension, dyslipidemia, multiple other comorbid conditions who presented to the ER with complaints of difficulty in breathing and a 5 pound weight gain. In the ER she underwent an extensive evaluation. Her initial vital signs showed an elevated blood pressure 176/74 but were otherwise within normal limits. Initial laboratory analysis showed a hemoglobin 10.7 which is at her baseline, erythema 5.2, creatinine 3.27 with normal baseline creatinine of approximately 2.4, urinalysis showed white blood cell count of 110.. Chest x-ray did not demonstrate any signs of heart failure did show some pulmonary fibrosis. He was found to clinically demonstrate congestive heart failure and an elevated BNP at 7340. She was given IV diuresis and admitted for further management of her congestive heart failure. She was also started on Rocephin for treatment of urinary tract infection. Urine culture final pending on discharge but showed group B strep and 1 additional gram negative organism. Her creatinine improved. Her fluid status was optimized and she was determined stable for discharge. She was seen by nephro who agreed with discharge. She will continue her Torsamide. She will call Dr. Velazco's office with weight gain or increased fluid. She will follow with nephro in 2-3 weeks and she has an appointment with Dr. Blood on 08/20 at 3:15pm. Patient seen and examined at bedside. No chest pain, breathing is at baseline, edema is improved and she feels that she can manage at home. Vital signs reviewed and stable. General: non toxic, no distress, appears younger than stated age Derm: warm, dry Head: atraumatic, normocephalic, symmetric Eyes: EOMI, no lid lag, anicteric sclera Mouth: no lip lesion, mucus membranes moist Cardiovascular: S1S2 reg, no murmur, positive posterior tibial pulse bilateral, Lungs: CTA bilateral, no rhonchi, no rales , no accessory muscle use Abdominal: soft, nontender to palpation, no guarding, no appreciable organomegaly Ext: no gross muscle atrophy, 1+ edema, no contractures Neuro: CN II-XI grossly intact, no focal neuro deficits Psych: Alert, oriented, appropriate affect A total of 25 minutes of time were spent preparing this complex discharge summary . Patient Condition at Discharge: Stable Plan - Discharge Summary New Discharge Prescriptions: New Torsemide [Demadex] 20 mg PO DAILY tab Torsemide [Demadex] 10 mg PO DAILY #30 tablet Cefpodoxime Proxetil [Vantin] 200 mg PO DAILY #5 tab Continue Levothyroxine Sodium [Synthroid] 100 mcg PO DAILY Flecainide [Tambocor] 50 mg PO BID Apixaban [Eliquis] 2.5 mg PO BID Multivitamins, Thera [Multivitamin (formulary)] 1 tab PO DAILY Simvastatin [Zocor] 20 mg PO HS #90 tab Calcitriol [Rocaltrol] 0.25 mcg PO MOTUWETHFR Allopurinol [Zyloprim] 100 mg PO DAILY Glimepiride [Amaryl] 1 mg PO AC-BID Spironolactone [Aldactone] 12.5 mg PO DAILY Atenolol [Tenormin] 50 mg PO BID Sodium Bicarbonate Tab 650 mg PO BID #60 tab Acetaminophen [Tylenol] 1,000 mg PO Q8H PRN PRN Reason: Pain Or Fever > 100.5 Cholecalciferol (Vitamin D3) [Vitamin D3] 4,000 unit PO DAILY Pantoprazole [Protonix] 40 mg PO DAILY Discontinued Torsemide [Demadex] 10 mg PO TID Discharge Medication List Levothyroxine Sodium [Synthroid] 100 mcg PO DAILY 01/31/14 [History] Apixaban [Eliquis] 2.5 mg PO BID 10/12/16 [History] Flecainide [Tambocor] 50 mg PO BID 10/12/16 [History] Multivitamins, Thera [Multivitamin (formulary)] 1 tab PO DAILY 12/10/16 [History] Simvastatin [Zocor] 20 mg PO HS #90 tab 12/13/16 [Rx] Allopurinol [Zyloprim] 100 mg PO DAILY 01/18/17 [History] Calcitriol [Rocaltrol] 0.25 mcg PO MOTUWETHFR 01/18/17 [History] Atenolol [Tenormin] 50 mg PO BID 10/10/17 [History] Glimepiride [Amaryl] 1 mg PO AC-BID 10/10/17 [History] Spironolactone [Aldactone] 12.5 mg PO DAILY 10/10/17 [History] Sodium Bicarbonate Tab 650 mg PO BID #60 tab 02/22/18 [Rx] Acetaminophen [Tylenol] 1,000 mg PO Q8H PRN 05/22/18 [History] Cholecalciferol (Vitamin D3) [Vitamin D3] 4,000 unit PO DAILY 05/26/19 [History] Pantoprazole [Protonix] 40 mg PO DAILY 08/16/19 [History] Cefpodoxime Proxetil [Vantin] 200 mg PO DAILY #5 tab 08/18/19 [Rx] Torsemide [Demadex] 10 mg PO DAILY #30 tablet 08/18/19 [Rx] Torsemide [Demadex] 20 mg PO DAILY tab 08/18/19 [Rx] Follow up Appointment(s)/Referral(s): Phil Blood MD [Primary Care Provider] - 08/23/19 3:00 pm (Friday) Sofia Child MD [STAFF PHYSICIAN] - 09/17/19 11:20 am (Friday) Activity/Diet/Wound Care/Special Instructions: Activity: as tolerated Diet: 2 gram sodium, 2L fluid restriction Special Instructions: Daily weights, call Dr. Velazco if increased weight gain Discharge Disposition: HOME SELF-CARE
--- NOTE | 2019-08-18 11:04 | P.PN ---
Subjective Patient is seen in follow-up for acute kidney injury on chronic kidney disease. Renal function improving. Creatinine 2.64 today. Urine output is good. No vomiting or diarrhea. Vital signs are stable. General: The patient appeared well nourished and normally developed. HEENT: Head exam is unremarkable. Neck is without jugular venous distension. LUNGS: Lungs are clear to auscultation and percussion. Breath sounds decreased. HEART: Rate and Rhythm are regular. First and second heart sounds normal. No murmurs, rubs or gallops. ABDOMEN: Abdominal exam reveals normal bowel sounds. Non-tender and non- distended. No evidence of peritonitis. EXTREMITITES: 1+ edema. Objective - Vital Signs Vital signs: Vital Signs Temp 98.2 F 08/18/19 08:00 Pulse 63 08/18/19 08:00 Resp 18 08/18/19 08:00 BP 120/56 08/18/19 08:00 Pulse Ox 97 08/18/19 08:00 Intake & Output 08/17/19 08/18/19 08/18/19 18:59 06:59 18:59 Intake Total 480 480 Output Total 250 Balance 480 -250 480 Weight 97.7 kg 97.7 kg Intake: Oral 480 480 Output: Urine 250 Other: Voiding Method Bedside Commode Bedside Commode # Voids 1 1 1 # Bowel Movements 1 - Labs CBC & Chem 7: 08/18/19 06:20 08/18/19 06:20 Labs: Abnormal Lab Results - Last 24 Hours (Table) 08/17/19 08/17/19 08/17/19 Range/Units 11:51 16:51 20:29 RBC (3.80-5.40) m/uL Hgb (11.4-16.0) gm/dL Hct (34.0-46.0) % Chloride (98-107) mmol/L Carbon Dioxide (22-30) mmol/L BUN (7-17) mg/dL Creatinine (0.52-1.04) mg/dL Glucose (74-99) mg/dL POC Glucose (mg/dL) 163 H 155 H 194 H (75-99) mg/dL Phosphorus (2.5-4.5) mg/dL 08/18/19 08/18/19 08/18/19 Range/Units 06:18 06:20 06:20 RBC 2.94 L (3.80-5.40) m/uL Hgb 9.8 L (11.4-16.0) gm/dL Hct 29.0 L (34.0-46.0) % Chloride 110 H (98-107) mmol/L Carbon Dioxide 19 L (22-30) mmol/L BUN 90 H (7-17) mg/dL Creatinine 2.64 H (0.52-1.04) mg/dL Glucose 128 H (74-99) mg/dL POC Glucose (mg/dL) 145 H (75-99) mg/dL Phosphorus 5.2 H (2.5-4.5) mg/dL Microbiology - Last 24 Hours (Table) 08/16/19 16:22 Urine Culture - Preliminary Urine,Voided Strep agalactiae - (group b) Gram Neg Bacilli Assessment and Plan Plan: Assessment: 1. Acute kidney injury mostly prerenal secondary to cardiorenal syndrome. Creatinine was 3.7 on admission and is down to 2.64 today. 2. Chronic kidney disease stage IV with baseline creatinine near 2.2 secondary to diabetic kidney disease and cardiorenal syndrome. Patient has a maturing upp er extremity AV fistula. 3. Chronic diastolic CHF with mild to moderate tricuspid regurgitation and moderate pulmonary hypertension. 4. Diabetes mellitus. 5. Metabolic acidosis secondary to acute kidney injury. Better. 6. Chronic kidney disease mineral bone disease maintained on calcitriol. 7. UTI maintained on antibiotics. Urine culture positive for group B strep and gram-negative bacilli. 8. Hypertension with chronic kidney disease. Home meds resumed. Plan: Maintain home dose of torsemide. Continue oral sodium bicarbonate. Avoid nephrotoxins. Repeat electrolytes in the morning. No urgent need for renal replacement therapy at this time. I advised the patient to monitor her weight closely at home. To call our office is notices more than 3 pound weight gain or worsening of edema. Potential discharge home today.
[2019-08-18 12:10] LABS: Glucose,Whole Blood 143 mg/dL (75-99)
== END 2019-08-18 13:30 | disposition home health service (06) | DRG 291 ==
LOC: EC 15:52 → 3SCARD 17:56
PROVIDERS: ADMIT Family Medicine; ATTEND Family Medicine
DX: I13.0 Hypertensive heart and chronic kidney disease with heart failure and stage 1 through stage 4 chronic kidney disease, or unspecified chronic kidney disease (principal); I50.43 Acute on chronic combined systolic (congestive) and diastolic (congestive) heart failure; N39.0 Urinary tract infection, site not specified; N18.4 Chronic kidney disease, stage 4 (severe); I48.20 Chronic atrial fibrillation, unspecified; N17.9 Acute kidney failure, unspecified; E87.2 Acidosis; J84.10 Pulmonary fibrosis, unspecified; G47.33 Obstructive sleep apnea (adult) (pediatric); E03.9 Hypothyroidism, unspecified; E78.5 Hyperlipidemia, unspecified; E11.22 Type 2 diabetes mellitus with diabetic chronic kidney disease; D63.1 Anemia in chronic kidney disease; I27.20 Pulmonary hypertension, unspecified; K21.9 Gastro-esophageal reflux disease without esophagitis; I49.5 Sick sinus syndrome; N25.0 Renal osteodystrophy; E55.9 Vitamin D deficiency, unspecified; B95.1 Streptococcus, group B, as the cause of diseases classified elsewhere; I07.1 Rheumatic tricuspid insufficiency; Z79.899 Other long term (current) drug therapy; Z79.890 Hormone replacement therapy; Z79.84 Long term (current) use of oral hypoglycemic drugs; Z79.01 Long term (current) use of anticoagulants; Z90.710 Acquired absence of both cervix and uterus; Z82.49 Family history of ischemic heart disease and other diseases of the circulatory system; Z88.0 Allergy status to penicillin; Z88.2 Allergy status to sulfonamides; Z88.8 Allergy status to other drugs, medicaments and biological substances; I25.2 Old myocardial infarction; Z86.19 Personal history of other infectious and parasitic diseases; Z87.440 Personal history of urinary (tract) infections; Z99.89 Dependence on other enabling machines and devices; Z98.49 Cataract extraction status, unspecified eye; Z80.9 Family history of malignant neoplasm, unspecified
CPT/HCPCS: 36415; 71046; 80048; 80053; 81001; 83735; 83880; 84100; 84484; 85025; 85027; 85610; 85730; 87077; 87086; 87186; 93005; 94640; 96365; 96375; 99285

== ENCOUNTER 2019-10-14 13:13 | Emergency (ER) | payer MEDICARE ==
--- NOTE | 2019-10-14 14:19 | ED ---
General Adult HPI - General Chief complaint: Shortness of Breath Stated complaint: SOB/weakness Time Seen by Provider: 10/14/19 13:20 Source: patient, family, RN notes reviewed, old records reviewed Mode of arrival: wheelchair Limitations: no limitations - History of Present Illness Initial comments: This is an 83-year-old female presents emergency Department with a past medical history significant for congestive heart failure and renal failure. Patient also states she is a diabetic. Patient comes in today because she states over the last week she's been having difficulty breathing and she thinks she's gone back and congestive heart failure. Patient states she was told that at about this time this month she would probably be on dialysis. Patient states she is post get blood work tomorrow but because of her difficulty breathing she decided come to the emergency department. Patient denies any chest pain or palpitations. Patient denies any recent fever chills or cough. Patient denies any headache patient denies numbness weakness. Patient denies any lightheadedness or dizziness. Patient denies any abdominal pain patient denies nausea vomiting diarrhea. - Related Data Home Medications Medication Instructions Recorded Confirmed Levothyroxine Sodium [Synthroid] 100 mcg PO DAILY 01/31/14 08/16/19 Apixaban [Eliquis] 2.5 mg PO BID 10/12/16 08/16/19 Flecainide [Tambocor] 50 mg PO BID 10/12/16 08/16/19 Multivitamins, Thera [Multivitamin 1 tab PO DAILY 12/10/16 08/16/19 (formulary)] Allopurinol [Zyloprim] 100 mg PO DAILY 01/18/17 08/16/19 Calcitriol [Rocaltrol] 0.25 mcg PO MOTUWETHFR 01/18/17 08/16/19 Atenolol [Tenormin] 50 mg PO BID 10/10/17 08/16/19 Glimepiride [Amaryl] 1 mg PO AC-BID 10/10/17 08/16/19 Spironolactone [Aldactone] 12.5 mg PO DAILY 10/10/17 08/16/19 Acetaminophen [Tylenol] 1,000 mg PO Q8H PRN 05/22/18 08/16/19 Cholecalciferol (Vitamin D3) 4,000 unit PO DAILY 05/26/19 08/16/19 [Vitamin D3] Pantoprazole [Protonix] 40 mg PO DAILY 08/16/19 08/16/19 Previous Rx's Medication Instructions Recorded Simvastatin [Zocor] 20 mg PO HS #90 tab 12/13/16 Sodium Bicarbonate Tab 650 mg PO BID #60 tab 02/22/18 Cefpodoxime Proxetil [Vantin] 200 mg PO DAILY #5 tab 08/18/19 Torsemide [Demadex] 10 mg PO DAILY #30 tablet 08/18/19 Torsemide [Demadex] 20 mg PO DAILY tab 08/18/19 Nitrofurantoin Monohyd/M-Cryst 100 mg PO Q12HR #14 cap 10/14/19 [Macrobid] Allergies Allergy/AdvReac Type Severity Reaction Status Date / Time meperidine HCl [From Demerol] Allergy Nausea & Verified 10/14/19 13:20 Vomiting Penicillins Allergy Rash/Hives Verified 10/14/19 13:20 Sulfa (Sulfonamide Allergy Rash/Hives Verified 10/14/19 13:20 Antibiotics) Review of Systems ROS Statement: Those systems with pertinent positive or pertinent negative responses have been documented in the HPI. ROS Other: All systems not noted in ROS Statement are negative. Past Medical History Past Medical History: Atrial Fibrillation, Heart Failure, Diabetes Mellitus, GERD/Reflux, Hyperlipidemia, Hypertension, Myocardial Infarction ([place]), Sleep Apnea/CPAP/BIPAP, Thyroid Disorder Additional Past Medical History / Comment(s): uti's,PALPITATIONS, patient states kidney function tests are not normal and see saw Dr Child about it. Uses CPAP machine. Sick Sinus Syndrome with pacemaker, chronic afib. Stage 4 kidney disease. Last Myocardial Infarction Date:: 32 years ago History of Any Multi-Drug Resistant Organisms: ESBL Date of last positivie culture/infection: 07/03/18 ESBL E.coli MDRO Source:: URINE Past Surgical History: Hysterectomy, Pacemaker Additional Past Surgical History / Comment(s): hemmorrhoidecto my/rectocele/cystocele, cataracts,. vein stripping Past Anesthesia/Blood Transfusion Reactions: No Reported Reaction Type of Cardiac Device: Permanent Pacemaker Device Placement Date:: 01/2017 Past Psychological History: No Psychological Hx Reported Smoking Status: Never smoker Past Alcohol Use History: None Reported Past Drug Use History: None Reported - Past Family History Father Family Medical History: Coronary Artery Disease (CAD), Hyperlipidemia, Hypertension, Myocardial Infarction ([place]) Mother Family Medical History: Unable to Obtain Sister(s) Family Medical History: Cancer General Exam - General Exam Comments Initial Comments: GENERAL: Patient is well-developed and well-nourished. Patient is nontoxic and well- hydrated and is in mild distress. ENT: Neck is soft and supple. No significant lymphadenopathy is noted. Oropharynx is clear. Moist mucous membranes. Neck has full range of motion without eliciting any pain. EYES: The sclera were anicteric and conjunctiva were pink and moist. Extraocular movements were intact and pupils were equal round and reactive to light. Eyelids were unremarkable. PULMONARY: Unlabored respirations. Good breath sounds bilaterally. No audible rales rhonchi or wheezing was noted. CARDIOVASCULAR: There is a regular rate and rhythm without any murmurs gallops or rubs. ABDOMEN: Soft and nontender with normal bowel sounds. SKIN: Skin is clear with no lesions or rashes and otherwise unremarkable. NEUROLOGIC: Patient is alert and oriented x3. Cranial nerves II through XII are grossly intact. Motor and sensory are also intact. Normal speech, volume and content. Symmetrical smile. MUSCULOSKELETAL: Normal extremities with adequate strength and full range of motion. 2+ edema bilaterally LYMPHATICS: No significant lymphadenopathy is noted PSYCHIATRIC: Normal psychiatric evaluation. Limitations: no limitations Course Vital Signs 10/14/19 10/14/19 10/14/19 13:19 14:45 15:00 Temperature 97.7 F Pulse Rate 70 63 Respiratory 20 18 18 Rate Blood Pressure 143/55 147/57 O2 Sat by Pulse 97 100 Oximetry 10/14/19 16:15 Temperature Pulse Rate 64 Respiratory 18 Rate Blood Pressure 148/57 O2 Sat by Pulse 99 Oximetry Medical Decision Making - Medical Decision Making EKG shows a paced rhythm at 63 bpm [place] interval is 204 QRS is 206 QT interval is 516 QTC is 520. Chest x-ray shows no acute abnormality. I spoke with Dr. Blood he agreed that the patient be discharged home I gave the patient a dose of Lasix prior to discharge and told to take an extra Demadex tomorrow. Patient also has a urinary tract infectious I gave her 1 dose of Rocephin. - Lab Data Result diagrams: 10/14/19 14:22 10/14/19 14:22 Lab Results 10/14/19 10/14/19 10/14/19 Range/Units 14:22 14:22 14:22 WBC 6.7 (3.8-10.6) k/uL RBC 3.22 L (3.80-5.40) m/uL Hgb 10.4 L (11.4-16.0) gm/dL Hct 32.3 L (34.0-46.0) % MCV 100.2 H (80.0-100.0) fL MCH 32.3 (25.0-35.0) pg MCHC 32.2 (31.0-37.0) g/dL RDW 14.3 (11.5-15.5) % Plt Count 168 (150-450) k/uL Neutrophils % 69 % Lymphocytes % 21 % Monocytes % 6 % Eosinophils % 2 % Basophils % 1 % Neutrophils # 4.6 (1.3-7.7) k/uL Lymphocytes # 1.4 (1.0-4.8) k/uL Monocytes # 0.4 (0-1.0) k/uL Eosinophils # 0.1 (0-0.7) k/uL Basophils # 0.0 (0-0.2) k/uL Macrocytosis Slight PT (9.0-12.0) sec INR (<1.2) APTT (22.0-30.0) sec Sample Site ABG pH (7.35-7.45) ABG pCO2 (35-45) mmHg ABG pO2 (83-108) mmHg ABG HCO3 (21-25) mmol/L ABG Total CO2 (19-24) mmol/L ABG O2 Saturation (94-97) % ABG Base Excess mmol/L Awnder Test FiO2 % Sodium 140 (137-145) mmol/L Potassium 4.6 (3.5-5.1) mmol/L Chloride 105 (98-107) mmol/L Carbon Dioxide 21 L (22-30) mmol/L Anion Gap 14 mmol/L BUN 81 H (7-17) mg/dL Creatinine 2.64 H (0.52-1.04) mg/dL Est GFR (CKD-EPI)AfAm 18 (>60 ml/min/1.73 sqM) Est GFR (CKD-EPI)NonAf 16 (>60 ml/min/1.73 sqM) Glucose 82 (74-99) mg/dL Uric Acid 7.6 H (3.7-7.4) mg/dL Calcium 9.2 (8.4-10.2) mg/dL Phosphorus 4.7 H (2.5-4.5) mg/dL Total Bilirubin 0.4 (0.2-1.3) mg/dL AST 16 (14-36) U/L ALT 12 (4-34) U/L Alkaline Phosphatase 96 (38-126) U/L Troponin I (0.000-0.034) ng/mL NT-Pro-B Natriuret Pep 45542 pg/mL Total Protein 6.9 (6.3-8.2) g/dL Albumin 4.0 (3.5-5.0) g/dL Urine Color Urine Appearance (Clear) Urine pH (5.0-8.0) Ur Specific [place] (1.001-1.035) Urine Protein (Negative) Urine Glucose (UA) (Negative) Urine Ketones (Negative) Urine Blood (Negative) Urine Nitrite (Negative) Urine Bilirubin (Negative) Urine Urobilinogen (<2.0) mg/dL Ur Leukocyte Esterase (Negative) Urine RBC (0-5) /hpf Urine WBC (0-5) /hpf Urine WBC Clumps (None) /hpf Urine Bacteria (None) /hpf Urine Mucus (None) /hpf Urine Creatinine mg/dL Protein/Creatinin Ratio Urine Total Protein mg/dL 10/14/19 10/14/19 10/14/19 Range/Units 14:22 14:22 14:22 WBC (3.8-10.6) k/uL RBC (3.80-5.40) m/uL Hgb (11.4-16.0) gm/dL Hct (34.0-46.0) % MCV (80.0-100.0) fL MCH (25.0-35.0) pg MCHC (31.0-37.0) g/dL RDW (11.5-15.5) % Plt Count (150-450) k/uL Neutrophils % % Lymphocytes % % Monocytes % % Eosinophils % % Basophils % % Neutrophils # (1.3-7.7) k/uL Lymphocytes # (1.0-4.8) k/uL Monocytes # (0-1.0) k/uL Eosinophils # (0-0.7) k/uL Basophils # (0-0.2) k/uL Macrocytosis PT 10.4 (9.0-12.0) sec INR 1.0 (<1.2) APTT 25.1 (22.0-30.0) sec Sample Site ABG pH (7.35-7.45) ABG pCO2 (35-45) mmHg ABG pO2 (83-108) mmHg ABG HCO3 (21-25) mmol/L ABG Total CO2 (19-24) mmol/L ABG O2 Saturation (94-97) % ABG Base Excess mmol/L Wander Test FiO2 % Sodium (137-145) mmol/L Potassium (3.5-5.1) mmol/L Chloride (98-107) mmol/L Carbon Dioxide (22-30) mmol/L Anion Gap mmol/L BUN (7-17) mg/dL Creatinine (0.52-1.04) mg/dL Est GFR (CKD-EPI)AfAm (>60 ml/min/1.73 sqM) Est GFR (CKD-EPI)NonAf (>60 ml/min/1.73 sqM) Glucose (74-99) mg/dL Uric Acid (3.7-7.4) mg/dL Calcium (8.4-10.2) mg/dL Phosphorus (2.5-4.5) mg/dL Total Bilirubin (0.2-1.3) mg/dL AST (14-36) U/L ALT (4-34) U/L Alkaline Phosphatase (38-126) U/L Troponin I <0.012 (0.000-0.034) ng/mL NT-Pro-B Natriuret Pep pg/mL Total Protein (6.3-8.2) g/dL Albumin (3.5-5.0) g/dL Urine Color Light Yellow Urine Appearance Cloudy H (Clear) Urine pH 5.5 (5.0-8.0) Ur Specific [place] 1.012 (1.001-1.035) Urine Protein Trace H (Negative) Urine Glucose (UA) Negative (Negative) Urine Ketones Negative (Negative) Urine Blood Negative (Negative) Urine Nitrite Negative (Negative) Urine Bilirubin Negative (Negative) Urine Urobilinogen <2.0 (<2.0) mg/dL Ur Leukocyte Esterase Negative (Negative) Urine RBC 1 (0-5) /hpf Urine WBC >182 H (0-5) /hpf Urine WBC Clumps Few H (None) /hpf Urine Bacteria Rare H (None) /hpf Urine Mucus Rare H (None) /hpf Urine Creatinine mg/dL Protein/Creatinin Ratio Urine Total Protein mg/dL 10/14/19 10/14/19 Range/Units 14:22 14:59 WBC (3.8-10.6) k/uL RBC (3.80-5.40) m/uL Hgb (11.4-16.0) gm/dL Hct (34.0-46.0) % MCV (80.0-100.0) fL MCH (25.0-35.0) pg MCHC (31.0-37.0) g/dL RDW (11.5-15.5) % Plt Count (150-450) k/uL Neutrophils % % Lymphocytes % % Monocytes % % Eosinophils % % Basophils % % Neutrophils # (1.3-7.7) k/uL Lymphocytes # (1.0-4.8) k/uL Monocytes # (0-1.0) k/uL Eosinophils # (0-0.7) k/uL Basophils # (0-0.2) k/uL Macrocytosis PT (9.0-12.0) sec INR (<1.2) APTT (22.0-30.0) sec Sample Site R Radial ABG pH 7.37 (7.35-7.45) ABG pCO2 36 (35-45) mmHg ABG pO2 81 L (83-108) mmHg ABG HCO3 21 (21-25) mmol/L ABG Total CO2 22 (19-24) mmol/L ABG O2 Saturation 95.3 (94-97) % ABG Base Excess -4.4 mmol/L Wander Test Yes FiO2 21 % Sodium (137-145) mmol/L Potassium (3.5-5.1) mmol/L Chloride (98-107) mmol/L Carbon Dioxide (22-30) mmol/L Anion Gap mmol/L BUN (7-17) mg/dL Creatinine (0.52-1.04) mg/dL Est GFR (CKD-EPI)AfAm (>60 ml/min/1.73 sqM) Est GFR (CKD-EPI)NonAf (>60 ml/min/1.73 sqM) Glucose (74-99) mg/dL Uric Acid (3.7-7.4) mg/dL Calcium (8.4-10.2) mg/dL Phosphorus (2.5-4.5) mg/dL Total Bilirubin (0.2-1.3) mg/dL AST (14-36) U/L ALT (4-34) U/L Alkaline Phosphatase (38-126) U/L Troponin I (0.000-0.034) ng/mL NT-Pro-B Natriuret Pep pg/mL Total Protein (6.3-8.2) g/dL Albumin (3.5-5.0) g/dL Urine Color Urine Appearance (Clear) Urine pH (5.0-8.0) Ur Specific [place] (1.001-1.035) Urine Protein (Negative) Urine Glucose (UA) (Negative) Urine Ketones (Negative) Urine Blood (Negative) Urine Nitrite (Negative) Urine Bilirubin (Negative) Urine Urobilinogen (<2.0) mg/dL Ur Leukocyte Esterase (Negative) Urine RBC (0-5) /hpf Urine WBC (0-5) /hpf Urine WBC Clumps (None) /hpf Urine Bacteria (None) /hpf Urine Mucus (None) /hpf Urine Creatinine 44.5 mg/dL Protein/Creatinin Ratio 0.584 Urine Total Protein 26 mg/dL Disposition Clinical Impression: Urinary tract infection Disposition: ADMITTED IP TO THIS [facility] Instructions (If sedation given, give patient instructions): Urinary Tract Infection in Women (ED) Prescriptions: Nitrofurantoin Monohyd/M-Cryst [Macrobid] 100 mg PO Q12HR #14 cap Is patient prescribed a controlled substance at d/c from ED?: No Referrals: Phil Blood MD [Primary Care Provider] - 1-2 days Time of Disposition: 16:29
[2019-10-14 14:47] LABS: Basophils % (A) 1 %; Eosinophils # (A) 0.1 k/uL (0-0.7); Eosinophils % (A) 2 %; HCT 32.3 % (34.0-46.0); HGB 10.4 gm/dL (11.4-16.0); Lymphocytes # (A) 1.4 k/uL (1.0-4.8); Lymphocytes % (A) 21 %; MCH 32.3 pg (25.0-35.0); MCHC 32.2 g/dL (31.0-37.0); MCV 100.2 fL (80.0-100.0); Macrocytosis Slight; Mean Platelet Volume 8.8; Monocytes # (A) 0.4 k/uL (0-1.0); Monocytes % (A) 6 %; Neutrophils # (A) 4.6 k/uL (1.3-7.7); Neutrophils % (A) 69 %; Platelet Count 168 k/uL (150-450); RBC 3.22 m/uL (3.80-5.40); RDW 14.3 % (11.5-15.5); WBC 6.7 k/uL (3.8-10.6)
[2019-10-14 14:48] VITALS: RESP 18
[2019-10-14 14:55] LABS: Calcium 9.2 mg/dL (8.4-10.2); Phosphorus 4.7 mg/dL (2.5-4.5); Potassium 4.6 mmol/L (3.5-5.1); Total Bilirubin 0.4 mg/dL (0.2-1.3); Total Protein 6.9 g/dL (6.3-8.2); Uric Acid 7.6 mg/dL (3.7-7.4)
[2019-10-14 15:03] LABS: ABG Base Excess -4.4 mmol/L; ABG HCO3 21 mmol/L (21-25); ABG Oxygen Saturation 95.3 % (94-97); ABG PCO2 36 mmHg (35-45); ABG PH 7.37 (7.35-7.45); ABG PO2 81 mmHg (83-108); ABG TCO2 22 mmol/L (19-24); Allen Test Performed? Yes
[2019-10-14 15:05] LABS: Partial Thromboplastin Time 25.1 sec (22.0-30.0); Prothrombin Time 10.4 sec (9.0-12.0)
[2019-10-14 15:10] LABS: Appearance,Urine Cloudy (Clear); Bacteria,Urine Rare /hpf; Bilirubin,Urine Negative (Negative); Blood,Urine Negative (Negative); Color,Urine Light Yellow; Glucose,Urine (UA) Negative (Negative); Ketones,Urine Negative (Negative); Leukocyte Esterase,Urine Negative (Negative); Mucus,Urine Rare /hpf; Nitrite,Urine Negative (Negative); PH, Urine 5.5 (5.0-8.0); Protein,Urine Trace (Negative); RBC,Urine 1 /hpf (0-5); Specific Gravity,Urine 1.012 (1.001-1.035); Urobilinogen,Urine <2.0 mg/dL (<2.0); WBC,Urine >182 /hpf (0-5)
[2019-10-14 15:12] LABS: Protein/Creatinine Ratio,Urine 0.584
--- NOTE | 2019-10-14 15:21 | XR ---
EXAMINATION TYPE: XR chest 2V DATE OF EXAM: 10/14/2019 COMPARISON: 08/16/2019 HISTORY: Difficulty breathing TECHNIQUE: Frontal and lateral views of the chest are obtained. FINDINGS: There is no focal air space opacity, pleural effusion, or pneumothorax seen. Chronic inter stitial prominence. The cardiac silhouette size is enlarged with multilead left-sided cardiac device. The osseous structures are intact. Arthropathy of the shoulders is noted as well as diffuse osseou s demineralization and mild degenerative change of the thoracic spine. IMPRESSION: Chronic findings with no acute cardiopulmonary process.
[2019-10-14] MEDS ORDERED: cefTRIAXone IN SWFI 1,000 MG/10 ML SYRINGE IVP STA (15:57)
[2019-10-14 16:17] VITALS: BP 148/57; PULSE 64
[2019-10-14] MEDS ORDERED: FUROSEMIDE 10 MG/ML 4 ML VIAL IV STA (16:27)
[2019-10-14 17:01] VITALS: TEMP 98
[2019-10-14 18:30] LABS: % Iron Saturation 12.41 (12.00-45.00)
== END 2019-10-14 16:55 | disposition other institution (70) ==
LOC: EC 13:13
DX: N39.0 Urinary tract infection, site not specified (principal); R60.0 Localized edema; R06.00 Dyspnea, unspecified; I48.20 Chronic atrial fibrillation, unspecified; I13.0 Hypertensive heart and chronic kidney disease with heart failure and stage 1 through stage 4 chronic kidney disease, or unspecified chronic kidney disease; I50.9 Heart failure, unspecified; N18.4 Chronic kidney disease, stage 4 (severe); E11.22 Type 2 diabetes mellitus with diabetic chronic kidney disease; K21.9 Gastro-esophageal reflux disease without esophagitis; E78.5 Hyperlipidemia, unspecified; I25.2 Old myocardial infarction; G47.30 Sleep apnea, unspecified; E07.9 Disorder of thyroid, unspecified; I49.5 Sick sinus syndrome; Z88.0 Allergy status to penicillin; Z88.2 Allergy status to sulfonamides; Z88.5 Allergy status to narcotic agent; Z79.01 Long term (current) use of anticoagulants; Z79.84 Long term (current) use of oral hypoglycemic drugs; Z79.890 Hormone replacement therapy; Z79.899 Other long term (current) drug therapy; Z95.0 Presence of cardiac pacemaker; Z99.89 Dependence on other enabling machines and devices; Z82.49 Family history of ischemic heart disease and other diseases of the circulatory system
CPT/HCPCS: 36415; 36600; 93005; 82652; 83880; 82570; 80053; 84156; 82805; 83540; 83550; 83605; 84100; 84550; 84484; 85025; 85610; 85730; 81001; 87040; 83970; 87086; 71046; 99285; 96374; 96375; J1940; J0696

== ENCOUNTER 2019-10-22 12:15 | Inpatient (IN) | payer MEDICARE ==
--- NOTE | 2019-10-22 12:39 | ED ---
General Adult HPI - General Chief complaint: Shortness of Breath Stated complaint: SOB Time Seen by Provider: 10/22/19 12:21 Source: patient, family, RN notes reviewed Mode of arrival: ambulatory Limitations: no limitations - History of Present Illness Initial comments: Patient is an 83-year-old female presenting to the emergency Department with fatigue and dyspnea. Patient saw her plasterer stucco today, Dr. Child, who does recommend patient be hospitalized for dialysis. Patient did have here graft placed in the right arm recently. Patient states fatigue has been severe. Patient has also had dyspnea and weight gain, especially the past few days. - Related Data Home Medications Medication Instructions Recorded Confirmed Levothyroxine Sodium [Synthroid] 100 mcg PO DAILY 01/31/14 10/22/19 Apixaban [Eliquis] 2.5 mg PO BID 10/12/16 10/22/19 Flecainide [Tambocor] 50 mg PO BID 10/12/16 10/22/19 Multivitamins, Thera [Multivitamin 1 tab PO DAILY 12/10/16 10/22/19 (formulary)] Allopurinol [Zyloprim] 100 mg PO DAILY 01/18/17 10/22/19 Calcitriol [Rocaltrol] 0.25 mcg PO MOTUWETHFR 01/18/17 10/22/19 Atenolol [Tenormin] 50 mg PO BID 10/10/17 10/22/19 Glimepiride [Amaryl] 1 mg PO AC-BID 10/10/17 10/22/19 Spironolactone [Aldactone] 12.5 mg PO DAILY 10/10/17 10/22/19 Acetaminophen [Tylenol] 1,000 mg PO Q8H PRN 05/22/18 10/22/19 Cholecalciferol (Vitamin D3) 4,000 unit PO DAILY 05/26/19 10/22/19 [Vitamin D3] Pantoprazole [Protonix] 40 mg PO DAILY 08/16/19 10/22/19 Torsemide [Demadex] 10 mg PO DAILY@1400 10/22/19 10/22/19 Previous Rx's Medication Instructions Recorded Simvastatin [Zocor] 20 mg PO HS #90 tab 12/13/16 Sodium Bicarbonate Tab 650 mg PO BID #60 tab 02/22/18 Torsemide [Demadex] 20 mg PO DAILY tab 08/18/19 Allergies Allergy/AdvReac Type Severity Reaction Status Date / Time meperidine HCl [From Demerol] Allergy Nausea & Verified 10/22/19 12:16 Vomiting Penicillins Allergy Rash/Hives Verified 10/22/19 12:16 Sulfa (Sulfonamide Allergy Rash/Hives Verified 10/22/19 12:16 Antibiotics) Review of Systems ROS Statement: Those systems with pertinent positive or pertinent negative responses have been documented in the HPI. ROS Other: All systems not noted in ROS Statement are negative. Constitutional: Denies: fever Eyes: Denies: eye pain ENT: Denies: ear pain Respiratory: Reports: as per HPI, dyspnea Cardiovascular: Reports: edema. Denies: chest pain Endocrine: Reports: fatigue Gastrointestinal: Denies: abdominal pain Genitourinary: Denies: dysuria Musculoskeletal: Denies: back pain Skin: Denies: rash Neurological: Denies: weakness Past Medical History Past Medical History: Atrial Fibrillation, Heart Failure, Diabetes Mellitus, GERD/Reflux, Hyperlipidemia, Hypertension, Myocardial Infarction ([place]), Renal Disease, Sleep Apnea/CPAP/BIPAP, Thyroid Disorder Additional Past Medical History / Comment(s): uti's,PALPITATIONS, patient states kidney function tests are not normal and see saw Dr Child about it. Uses CPAP machine. Sick Sinus Syndrome with pacemaker, chronic afib. Stage 4 kidney disease. Last Myocardial Infarction Date:: 32 years ago History of Any Multi-Drug Resistant Organisms: ESBL Date of last positivie culture/infection: 07/03/18 ESBL E.coli MDRO Source:: URINE Past Surgical History: Hysterectomy, Pacemaker Additional Past Surgical History / Comment(s): hemmorrhoidectomy/rectocele/cysto cristopher, cataracts,. vein stripping Past Anesthesia/Blood Transfusion Reactions: No Reported Reaction Type of Cardiac Device: Permanent Pacemaker Device Placement Date:: 01/2017 Past Psychological History: No Psychological Hx Reported Smoking Status: Never smoker Past Alcohol Use History: None Reported Past Drug Use History: None Reported - Past Family History Father Family Medical History: Coronary Artery Disease (CAD), Hyperlipidemia, Hypertension, Myocardial Infarction ([place]) Mother Family Medical History: Unable to Obtain Sister(s) Family Medical History: Cancer General Exam Limitations: no limitations General appearance: alert, in no apparent distress Head exam: Present: normocephalic Eye exam: Present: normal appearance Neck exam: Present: normal inspection Respiratory exam: Present: normal lung sounds bilaterally Cardiovascular Exam: Present: regular rate, normal rhythm GI/Abdominal exam: Present: soft. Absent: tenderness Extremities exam: Present: pedal edema. Absent: calf tenderness Neurological exam: Present: alert Psychiatric exam: Present: normal affect, normal mood Skin exam: Present: normal color Course Vital Signs 10/22/19 10/22/19 10/22/19 12:16 12:39 12:42 Temperature 97.5 F L Pulse Rate 60 69 Respiratory 16 16 Rate Blood Pressure 136/77 159/56 O2 Sat by Pulse 100 94 L 93 L Oximetry 10/22/19 10/22/19 13:00 13:30 Temperature Pulse Rate 67 72 Respiratory 16 16 Rate Blood Pressure 151/56 137/52 O2 Sat by Pulse 99 Oximetry EKG Findings - EKG Comments: EKG Findings:: Paced rhythm with rate of 60. CA 208. QRS to 6. QT 532. QTC 532. Left axis. LVH with repolarization change. Inferior Q waves. Nonspecific ST-T. Medical Decision Making - Medical Decision Making Patient reevaluated. Patient and family updated. Case discussed with Dr. Rudolph, who will admit covering for Dr. Blood. Dr. Child placed on consult. - Lab Data Result diagrams: 10/22/19 12:36 10/22/19 12:36 Lab Results 10/22/19 10/22/19 10/22/19 Range/Units 12:36 12:36 12:36 WBC 7.8 (3.8-10.6) k/uL RBC 3.27 L (3.80-5.40) m/uL Hgb 10.5 L (11.4-16.0) gm/dL Hct 32.5 L (34.0-46.0) % MCV 99.5 (80.0-100.0) fL MCH 32.2 (25.0-35.0) pg MCHC 32.4 (31.0-37.0) g/dL RDW 14.5 (11.5-15.5) % Plt Count 180 (150-450) k/uL Neutrophils % 74 % Lymphocytes % 17 % Monocytes % 5 % Eosinophils % 2 % Basophils % 1 % Neutrophils # 5.8 (1.3-7.7) k/uL Lymphocytes # 1.3 (1.0-4.8) k/uL Monocytes # 0.4 (0-1.0) k/uL Eosinophils # 0.2 (0-0.7) k/uL Basophils # 0.0 (0-0.2) k/uL Macrocytosis Slight PT (9.0-12.0) sec INR (<1.2) APTT (22.0-30.0) sec Sodium 139 (137-145) mmol/L Potassium 5.0 (3.5-5.1) mmol/L Chloride 106 (98-107) mmol/L Carbon Dioxide 22 (22-30) mmol/L Anion Gap 11 mmol/L BUN 101 H* (7-17) mg/dL Creatinine 2.55 H (0.52-1.04) mg/dL Est GFR (CKD-EPI)AfAm 19 (>60 ml/min/1.73 sqM) Est GFR (CKD-EPI)NonAf 17 (>60 ml/min/1.73 sqM) Glucose 184 H (74-99) mg/dL Plasma Lactic Acid Gilberto 1.0 (0.7-2.0) mmol/L Calcium 9.2 (8.4-10.2) mg/dL Phosphorus 5.4 H (2.5-4.5) mg/dL Magnesium 2.2 (1.6-2.3) mg/dL Total Bilirubin 0.4 (0.2-1.3) mg/dL AST 19 (14-36) U/L ALT 16 (4-34) U/L Alkaline Phosphatase 121 (38-126) U/L Creatine Kinase 24 L (30-135) U/L Troponin I (0.000-0.034) ng/mL NT-Pro-B Natriuret Pep pg/mL Total Protein 6.8 (6.3-8.2) g/dL Albumin 4.1 (3.5-5.0) g/dL Urine Color Urine Appearance (Clear) Urine pH (5.0-8.0) Ur Specific [place] (1.001-1.035) Urine Protein (Negative) Urine Glucose (UA) (Negative) Urine Ketones (Negative) Urine Blood (Negative) Urine Nitrite (Negative) Urine Bilirubin (Negative) Urine Urobilinogen (<2.0) mg/dL Ur Leukocyte Esterase (Negative) Urine RBC (0-5) /hpf Urine WBC (0-5) /hpf Ur Squamous Epith Cells (0-4) /hpf Urine Mucus (None) /hpf 10/22/19 10/22/19 10/22/19 Range/Units 12:36 12:36 12:36 WBC (3.8-10.6) k/uL RBC (3.80-5.40) m/uL Hgb (11.4-16.0) gm/dL Hct (34.0-46.0) % MCV (80.0-100.0) fL MCH (25.0-35.0) pg MCHC (31.0-37.0) g/dL RDW (11.5-15.5) % Plt Count (150-450) k/uL Neutrophils % % Lymphocytes % % Monocytes % % Eosinophils % % Basophils % % Neutrophils # (1.3-7.7) k/uL Lymphocytes # (1.0-4.8) k/uL Monocytes # (0-1.0) k/uL Eosinophils # (0-0.7) k/uL Basophils # (0-0.2) k/uL Macrocytosis PT 9.8 (9.0-12.0) sec INR 0.9 (<1.2) APTT 22.9 (22.0-30.0) sec Sodium (137-145) mmol/L Potassium (3.5-5.1) mmol/L Chloride (98-107) mmol/L Carbon Dioxide (22-30) mmol/L Anion Gap mmol/L BUN (7-17) mg/dL Creatinine (0.52-1.04) mg/dL Est GFR (CKD-EPI)AfAm (>60 ml/min/1.73 sqM) Est GFR (CKD-EPI)NonAf (>60 ml/min/1.73 sqM) Glucose (74-99) mg/dL Plasma Lactic Acid Gilberto (0.7-2.0) mmol/L Calcium (8.4-10.2) mg/dL Phosphorus (2.5-4.5) mg/dL Magnesium (1.6-2.3) mg/dL Total Bilirubin (0.2-1.3) mg/dL AST (14-36) U/L ALT (4-34) U/L Alkaline Phosphatase (38-126) U/L Creatine Kinase (30-135) U/L Troponin I <0.012 (0.000-0.034) ng/mL NT-Pro-B Natriuret Pep 20037 pg/mL Total Protein (6.3-8.2) g/dL Albumin (3.5-5.0) g/dL Urine Color Urine Appearance (Clear) Urine pH (5.0-8.0) Ur Specific [place] (1.001-1.035) Urine Protein (Negative) Urine Glucose (UA) (Negative) Urine Ketones (Negative) Urine Blood (Negative) Urine Nitrite (Negative) Urine Bilirubin (Negative) Urine Urobilinogen (<2.0) mg/dL Ur Leukocyte Esterase (Negative) Urine RBC (0-5) /hpf Urine WBC (0-5) /hpf Ur Squamous Epith Cells (0-4) /hpf Urine Mucus (None) /hpf 10/22/19 Range/Units 12:36 WBC (3.8-10.6) k/uL RBC (3.80-5.40) m/uL Hgb (11.4-16.0) gm/dL Hct (34.0-46.0) % MCV (80.0-100.0) fL MCH (25.0-35.0) pg MCHC (31.0-37.0) g/dL RDW (11.5-15.5) % Plt Count (150-450) k/uL Neutrophils % % Lymphocytes % % Monocytes % % Eosinophils % % Basophils % % Neutrophils # (1.3-7.7) k/uL Lymphocytes # (1.0-4.8) k/uL Monocytes # (0-1.0) k/uL Eosinophils # (0-0.7) k/uL Basophils # (0-0.2) k/uL Macrocytosis PT (9.0-12.0) sec INR (<1.2) APTT (22.0-30.0) sec Sodium (137-145) mmol/L Potassium (3.5-5.1) mmol/L Chloride (98-107) mmol/L Carbon Dioxide (22-30) mmol/L Anion Gap mmol/L BUN (7-17) mg/dL Creatinine (0.52-1.04) mg/dL Est GFR (CKD-EPI)AfAm (>60 ml/min/1.73 sqM) Est GFR (CKD-EPI)NonAf (>60 ml/min/1.73 sqM) Glucose (74-99) mg/dL Plasma Lactic Acid Gilberto (0.7-2.0) mmol/L Calcium (8.4-10.2) mg/dL Phosphorus (2.5-4.5) mg/dL Magnesium (1.6-2.3) mg/dL Total Bilirubin (0.2-1.3) mg/dL AST (14-36) U/L ALT (4-34) U/L Alkaline Phosphatase (38-126) U/L Creatine Kinase (30-135) U/L Troponin I (0.000-0.034) ng/mL NT-Pro-B Natriuret Pep pg/mL Total Protein (6.3-8.2) g/dL Albumin (3.5-5.0) g/dL Urine Color Yellow Urine Appearance Clear (Clear) Urine pH 5.5 (5.0-8.0) Ur Specific [place] 1.011 (1.001-1.035) Urine Protein Negative (Negative) Urine Glucose (UA) Negative (Negative) Urine Ketones Negative (Negative) Urine Blood Negative (Negative) Urine Nitrite Negative (Negative) Urine Bilirubin Negative (Negative) Urine Urobilinogen <2.0 (<2.0) mg/dL Ur Leukocyte Esterase Small H (Negative) Urine RBC 1 (0-5) /hpf Urine WBC 11 H (0-5) /hpf Ur Squamous Epith Cells <1 (0-4) /hpf Urine Mucus Rare H (None) /hpf - Radiology Data Radiology results: image reviewed (X-ray shows some atelectasis) Disposition Clinical Impression: Renal failure Disposition: ADMITTED IP TO THIS [facility] Condition: Serious Is patient prescribed a controlled substance at d/c from ED?: No Referrals: Phil Blood MD [Primary Care Provider] - 1-2 days Decision Time: 13:58
[2019-10-22 12:55] LABS: Basophils % (A) 1 %; Eosinophils # (A) 0.2 k/uL (0-0.7); Eosinophils % (A) 2 %; HCT 32.5 % (34.0-46.0); HGB 10.5 gm/dL (11.4-16.0); Lymphocytes # (A) 1.3 k/uL (1.0-4.8); Lymphocytes % (A) 17 %; MCH 32.2 pg (25.0-35.0); MCHC 32.4 g/dL (31.0-37.0); MCV 99.5 fL (80.0-100.0); Macrocytosis Slight; Mean Platelet Volume 8.5; Monocytes # (A) 0.4 k/uL (0-1.0); Monocytes % (A) 5 %; Neutrophils # (A) 5.8 k/uL (1.3-7.7); Neutrophils % (A) 74 %; Platelet Count 180 k/uL (150-450); RBC 3.27 m/uL (3.80-5.40); RDW 14.5 % (11.5-15.5); WBC 7.8 k/uL (3.8-10.6)
[2019-10-22 13:07] LABS: Albumin 4.1 g/dL (3.5-5.0); Calcium 9.2 mg/dL (8.4-10.2); Magnesium 2.2 mg/dL (1.6-2.3); Phosphorus 5.4 mg/dL (2.5-4.5); Total Bilirubin 0.4 mg/dL (0.2-1.3); Total Protein 6.8 g/dL (6.3-8.2)
--- NOTE | 2019-10-22 13:08 | XR ---
EXAMINATION TYPE: XR chest 2V DATE OF EXAM: 10/22/2019 COMPARISON: Prior chest x-ray 10/14/2019 HISTORY: Difficulty breathing TECHNIQUE: Frontal and lateral views of the chest are obtained. FINDINGS: Defibrillator device is stable. No evident pneumothorax or pleural effusion. Heart is enla rged. Aorta is dense and possibly ectatic. Patchy density present at the left lower lobe. There is th oracic spondylosis. IMPRESSION: There may be some subsegmental basilar atelectatic changes. Additional findings above.
[2019-10-22 13:10] LABS: INR 0.9 (<1.2); Partial Thromboplastin Time 22.9 sec (22.0-30.0); Prothrombin Time 9.8 sec (9.0-12.0)
[2019-10-22 13:26] LABS: Appearance,Urine Clear (Clear); Bilirubin,Urine Negative (Negative); Blood,Urine Negative (Negative); Color,Urine Yellow; Glucose,Urine (UA) Negative (Negative); Ketones,Urine Negative (Negative); Leukocyte Esterase,Urine Small (Negative); Mucus,Urine Rare /hpf; Nitrite,Urine Negative (Negative); PH, Urine 5.5 (5.0-8.0); Protein,Urine Negative (Negative); RBC,Urine 1 /hpf (0-5); Specific Gravity,Urine 1.011 (1.001-1.035); Squamous Epithelial Cell,Urine <1 /hpf (0-4); Urobilinogen,Urine <2.0 mg/dL (<2.0); WBC,Urine 11 /hpf (0-5)
[2019-10-22] MEDS ORDERED: NALOXONE 0.4 MG/ML 1 ML VIAL IV PRN (13:58)
[2019-10-22] MEDS ORDERED: HYDROcodone/APAP 5-325MG 1 EACH TAB PO PRN (16:58)
[2019-10-22 17:00] LABS: Glucose,Whole Blood 140 mg/dL (75-99)
--- NOTE | 2019-10-22 17:42 | P.HPIM ---
History of Present Illness H&P Date: 10/22/19 Chief Complaint: Shortness of breath 83-year-old female with PMH of atrial fibrillation, diabetes mellitus, hypertension, CAD, chronic kidney disease, sleep apnea on CPAP, hypothyroidism presents the ED after being sent from Dr. Child's clinic. Patient has been progressively feeling short of breath along with fatigue over the past week. Patient states she is usually very active. Patient reports her kidney function is progressively been getting worse and she recently underwent a right upper extremity fistula on July 14 at [facility]. She denies any headaches, fever or chills, chest pain, palpitations or changes in bowel habits. She does report some lower extremity swelling. She reports some nausea but denies any vomiting. Patient reports a dry cough that is associated with her shortness of breath. Patient states over the last couple of days she has been unable to produce much urine. She reports a decreased appetite. She denies any dizziness, numbness/weakness/tingling. In the ED, her vital signs are stable. CBC showed hemoglobin of 10.5. Coagulation panel was negative. CMP showed BUN of 101 and creatinine of 2.55. Troponin was less than 0.012, EKG showing atrial pacemaker rhythm with left axis deviation. BNP was 12,800, chest x-ray showing atelectatic changes. Urinalysis showed small leukocyte esterase. Patient is admitted for end-stage renal disease and initiation of dialysis. Vascular surgery and nephrology has been consulted. Review of Systems Pertinent positives and negatives as discussed in HPI, a complete review of systems was performed and all other systems are negative. Past Medical History Past Medical History: Atrial Fibrillation, Heart Failure, Diabetes Mellitus, GERD/Reflux, Hyperlipidemia, Hypertension, Myocardial Infarction (VT), Osteoarthritis (OA), Renal Disease, Rheumatoid Arthritis (RA), Sleep Apnea/CP AP/BIPAP, Thyroid Disorder Additional Past Medical History / Comment(s): uti's,PALPITATIONS, Uses CPAP machine. Sick Sinus Syndrome with pacemaker, chronic afib. Stage 4 kidney disease. Last Myocardial Infarction Date:: 32 years ago History of Any Multi-Drug Resistant Organisms: ESBL Date of last positivie culture/infection: 07/03/18 ESBL E.coli MDRO Source:: URINE Past Surgical History: Hysterectomy, Pacemaker Additional Past Surgical History / Comment(s): hemmorrhoidectomy/rectocele/cystocele, cataracts,. vein stripping x2, right arm fistula placement. Past Anesthesia/Blood Transfusion Reactions: No Reported Reaction Type of Cardiac Device: Permanent Pacemaker Device Placement Date:: 01/2017 Past Psychological History: No Psychological Hx Reported Additional Psychological History / Comment(s): lives in own home has 2 steps into home. recieved cleaning services .no pets. gets meals on wheels. has cpap machine,rolling walker /cane. has life alert necklace. she is an adult daughter and son-in-law who help her with day to day needs including shopping and transporter as needed. If she needs to have outpatient antibiotic therapy it would come and stay with her. Smoking Status: Never smoker Past Alcohol Use History: None Reported Past Drug Use History: None Reported - Past Family History Father Family Medical History: Coronary Artery Disease (CAD), Hyperlipidemia, Hypertension, Myocardial Infarction (VT) Mother Family Medical History: Unable to Obtain Sister(s) Family Medical History: Cancer Medications and Allergies Home Medications Medication Instructions Recorded Confirmed Type Levothyroxine Sodium [Synthroid] 100 mcg PO DAILY 01/31/14 10/22/19 History Apixaban [Eliquis] 2.5 mg PO BID 10/12/16 10/22/19 History Flecainide [Tambocor] 50 mg PO BID 10/12/16 10/22/19 History Multivitamins, Thera [Multivitamin 1 tab PO DAILY 12/10/16 10/22/19 History (formulary)] Simvastatin [Zocor] 20 mg PO HS #90 tab 12/13/16 10/22/19 Rx Allopurinol [Zyloprim] 100 mg PO DAILY 01/18/17 10/22/19 History Calcitriol [Rocaltrol] 0.25 mcg PO MOTUWETHFR 01/18/17 10/22/19 History Atenolol [Tenormin] 50 mg PO BID 10/10/17 10/22/19 History Glimepiride [Amaryl] 1 mg PO AC-BID 10/10/17 10/22/19 History Spironolactone [Aldactone] 12.5 mg PO DAILY 10/10/17 10/22/19 History Sodium Bicarbonate Tab 650 mg PO BID #60 tab 02/22/18 10/22/19 Rx Acetaminophen [Tylenol] 1,000 mg PO Q8H PRN 05/22/18 10/22/19 History Cholecalciferol (Vitamin D3) 4,000 unit PO DAILY 05/26/19 10/22/19 History [Vitamin D3] Pantoprazole [Protonix] 40 mg PO DAILY 08/16/19 10/22/19 History Torsemide [Demadex] 20 mg PO DAILY tab 08/18/19 10/22/19 Rx Torsemide [Demadex] 10 mg PO DAILY@1400 10/22/19 10/22/19 History Allergies Allergy/AdvReac Type Severity Reaction Status Date / Time meperidine HCl [From Demerol] Allergy Nausea & Verified 10/22/19 12:16 Vomiting Penicillins Allergy Rash/Hives Verified 10/22/19 12:16 Sulfa (Sulfonamide Allergy Rash/Hives Verified 10/22/19 12:16 Antibiotics) Physical Exam Vitals: Vital Signs Temp Pulse Pulse Resp BP BP Pulse Ox 10/22/19 15:00 97.4 F L 60 16 173/61 100 10/22/19 14:30 98.0 F 75 18 155/59 98 10/22/19 14:00 74 18 137/52 98 10/22/19 13:30 72 16 137/52 99 10/22/19 13:00 67 16 151/56 10/22/19 12:42 93 L 10/22/19 12:39 69 16 159/56 94 L 10/22/19 12:16 97.5 F L 60 16 136/77 100 Intake and Output 10/22/19 10/22/19 10/22/19 06:59 14:59 22:59 Other: Weight 100.698 kg 100.698 kg General: [non toxic], [no distress], [appears at stated age] Derm: [warm], [dry] Head: [atraumatic], [normocephalic], [symmetric] Eyes: [EOMI], [no lid lag], [anicteric sclera] Mouth: [no lip lesion], [mucus membranes moist] Cardiovascular: [S1S2 reg], [no murmur], [positive DP pulse bilateral], Lungs: [Decreased breath sounds bilateral], [no rhonchi, no rales] , [no accessory muscle use] Abdominal: [soft], [ nontender to palpation], [no guarding], [no appreciable organomegaly] Ext: [no gross muscle atrophy], [1+ pitting bilateral lower extremity edema], [no contractures], [right upper extremity fistula without thrill] Neuro: [ CN II-XI grossly intact], [no focal neuro deficits] Psych: [Alert], [oriented], [appropriate affect] Results CBC & Chem 7: 10/22/19 12:36 10/22/19 12:36 Labs: Abnormal Lab Results - Last 24 Hours (Table) 10/22/19 10/22/19 10/22/19 Range/Units 12:36 12:36 12:36 RBC 3.27 L (3.80-5.40) m/uL Hgb 10.5 L (11.4-16.0) gm/dL Hct 32.5 L (34.0-46.0) % BUN 101 H* (7-17) mg/dL Creatinine 2.55 H (0.52-1.04) mg/dL Glucose 184 H (74-99) mg/dL POC Glucose (mg/dL) (75-99) mg/dL Phosphorus 5.4 H (2.5-4.5) mg/dL Creatine Kinase 24 L (30-135) U/L Ur Leukocyte Esterase Small H (Negative) Urine WBC 11 H (0-5) /hpf Urine Mucus Rare H (None) /hpf 10/22/19 Range/Units 16:59 RBC (3.80-5.40) m/uL Hgb (11.4-16.0) gm/dL Hct (34.0-46.0) % BUN (7-17) mg/dL Creatinine (0.52-1.04) mg/dL Glucose (74-99) mg/dL POC Glucose (mg/dL) 140 H (75-99) mg/dL Phosphorus (2.5-4.5) mg/dL Creatine Kinase (30-135) U/L Ur Leukocyte Esterase (Negative) Urine WBC (0-5) /hpf Urine Mucus (None) /hpf Thrombosis Risk Factor Assmnt - Choose All That Apply Any of the Below Risk Factors Present?: Yes Each Factor Represents 1 point: Minor surgery planned, Obesity (BMI >25), Varicose veins Other Risk Factors: Yes Each Risk Factor Represents 3 Points: Age 75 years or older Other congenital or acquired thrombophilia - If yes, enter type in comment: No Thrombosis Risk Factor Assessment Total Risk Factor Score: 6 Thrombosis Risk Factor Assessment Level: High Risk Assessment and Plan Assessment: Stage IV CKD pending initiation of dialysis Diabetes mellitus with hyperglycemia Abnormal urinalysis Anemia Atrial fibrillation on anticoagulation Hypertension CAD Sleep apnea Hypothyroidism BUN 101 creatinine 2.55 GFR 17. Patient is admitted for initiation of dialysis due to her symptoms of extreme fatigue and dyspnea. Plans: Daily BMP. Avoid nephrotoxins. Continue calcitriol. Continue sodium bicarbonate supplementation. Consult nephrology. Consult vascular surgery for dialysis access. [id number] glucose 140. Plans: Insulin sliding-scale. Regular Accu-Cheks. Hyperglycemia precautions. Urinalysis shows leukocyte esterase positive. Patient is asymptomatic. Plans: Nothing further to do. Hemolytic 10.5. Normocytic. Likely due to chronic kidney disease. Plans: Daily CBC. Transfuse if hemoglobin less than 7. Plans: Continue atenolol. Continue flecainide. Stop Eliquis for plans to obtain dialysis access on Friday. BP 173/61. Plans: Continue beta henok. Continue Aldactone. Monitor vitals, adjust medications as necessary. Plans: Eliquis on hold for planned procedure. Continue Lipitor. Continue beta henok. Plans: CPAP at nighttime. Plans: Continue Synthroid. DVT prophylaxis: [SCD] Discussed with: [Patient] Anticipated discharge: [1-2 days] Anticipated discharge place: [Home] A total of [45] minutes was spent on the care of this complex patient more than 50% of the time was spent in counseling and care coordination. Patient names her son Gama decision maker if she can't make decisions for herself. Patient would like to be full code. Her PCP is Dr. Blood.
--- NOTE | 2019-10-22 19:45 | CONS ---
CONSULTATION Patient 83-year-old female. Patient has history of chronic renal failure. We created a fistula in the right arm of the left brachial fistula which needed transposition. Patient came with acute renal failure. Discussed with Dr. Child. The patient needs a catheter for dialysis. Then we will do the secondary procedure for transposition of basilic vein later on. The patient also has history of atrial fibrillation. Patient on Eliquis. She took her Eliquis today this morning. MEDICAL HISTORY: History of chronic renal failure, hypertension. SURGICAL HISTORY: Patient had basilar brachial fistula placed in the past. On examination, neck is supple. Trachea central. Chest is clear. Abdomen is soft. Femoral pulses are present. Patient has a fistula on the right upper arm, basilar brachial fistula which needs transposition. PLAN: Placement of the dialysis catheter and fistulogram. We will hold Eliquis and we will do that on Friday, dialysis catheter and fistulogram. MMODL / IJN: [id number] /
[2019-10-22] MEDS: ATORVASTATIN 10 MG TAB PO SCH (20:29)
[2019-10-22] MEDS: SODIUM BICARBONATE TAB 650 MG TAB PO SCH (20:29)
[2019-10-22] MEDS: ATENOLOL 50 MG TAB PO SCH (20:29)
[2019-10-22] MEDS: FLECAINIDE 50 MG TAB PO SCH (20:29)
[2019-10-22 20:33] LABS: Glucose,Whole Blood 201 mg/dL (75-99)
[2019-10-22] MEDS: INSULIN ASPART (NovoLOG) 100 UNIT/ML VIAL SQ SCH (20:35)
[2019-10-22] MEDS ORDERED: APIXABAN 2.5 MG TABLET PO SCH (21:00)
[2019-10-22] MEDS ORDERED: HEPARIN SODIUM,PORCINE 5,000 UNIT/ML 1 ML VIAL SQ SCH (21:00)
[2019-10-23] MEDS: LEVOTHYROXINE 100 MCG TAB PO SCH (05:29)
[2019-10-23 07:56] LABS: Glucose,Whole Blood 118 mg/dL (75-99)
[2019-10-23 08:11] LABS: Basophils % (A) 1 %; Eosinophils # (A) 0.2 k/uL (0-0.7); Eosinophils % (A) 2 %; HCT 30.9 % (34.0-46.0); HGB 9.7 gm/dL (11.4-16.0); Lymphocytes # (A) 1.2 k/uL (1.0-4.8); Lymphocytes % (A) 18 %; MCH 31.7 pg (25.0-35.0); MCHC 31.5 g/dL (31.0-37.0); MCV 100.4 fL (80.0-100.0); Macrocytosis Slight; Mean Platelet Volume 8.3; Monocytes # (A) 0.5 k/uL (0-1.0); Monocytes % (A) 7 %; Neutrophils % (A) 70 %; Platelet Count 181 k/uL (150-450); RBC 3.08 m/uL (3.80-5.40); RDW 14.4 % (11.5-15.5); WBC 7.1 k/uL (3.8-10.6)
[2019-10-23 08:21] LABS: Albumin 3.7 g/dL (3.5-5.0); Potassium 4.7 mmol/L (3.5-5.1); Total Bilirubin 0.4 mg/dL (0.2-1.3); Total Protein 6.4 g/dL (6.3-8.2)
[2019-10-23] MEDS ORDERED: TORSEMIDE 20 MG TAB PO SCH ×2 (09:00→14:00)
[2019-10-23] MEDS ORDERED: SPIRONOLACTONE 25 MG TAB PO SCH (09:00)
[2019-10-23] MEDS: INSULIN ASPART (NovoLOG) 100 UNIT/ML VIAL SQ SCH ×5 (09:02→20:23)
[2019-10-23] MEDS: FLECAINIDE 50 MG TAB PO SCH ×2 (09:11→20:19)
[2019-10-23] MEDS: PANTOPRAZOLE 40 MG TABLET PO SCH (09:11)
[2019-10-23] MEDS: SODIUM BICARBONATE TAB 650 MG TAB PO SCH ×2 (09:11→20:19)
[2019-10-23] MEDS: ALLOPURINOL 100 MG TAB PO SCH (09:11)
[2019-10-23] MEDS: ATENOLOL 50 MG TAB PO SCH ×2 (09:12→20:19)
[2019-10-23 11:42] LABS: Glucose,Whole Blood 280 mg/dL (75-99)
[2019-10-23] MEDS ORDERED: BISACODYL 10 MG SUPP RECTAL STA (12:15)
--- NOTE | 2019-10-23 12:19 | P.PN ---
Subjective Progress Note Date: 10/23/19 Principal diagnosis: Chronic kidney disease stage IV, shortness of breath Patient was seen and examined. No acute events overnight. Patient reports continuation of symptoms that is not improved. Patient states that she is not short of breath when she is at rest. Patient requesting a suppository for constipation. She denies any chest pain or palpitations. No nausea or vom iting. No fever or chills. Objective - Vital Signs Vital signs: Vital Signs Temp 97.5 F L 10/23/19 07:00 Pulse 60 10/23/19 07:00 Resp 18 10/23/19 07:00 BP 118/53 10/23/19 07:00 Pulse Ox 94 L 10/23/19 07:00 Intake & Output 10/22/19 10/23/19 10/23/19 18:59 06:59 18:59 Intake Total 300 Balance 300 Weight 100.698 kg Intake: Oral 300 Other: # Voids 1 - Exam General: [non toxic], [no distress], [appears at stated age] Derm: [warm], [dry] Head: [atraumatic], [normocephalic], [symmetric] Eyes: [EOMI], [no lid lag], [anicteric sclera] Mouth: [no lip lesion], [mucus membranes moist] Cardiovascular: [S1S2 reg], [no murmur], [positive DP pulse bilateral], Lungs: [Decreased breath sounds bilateral], [no rhonchi, no rales] , [no accessory muscle use] Abdominal: [soft], [ nontender to palpation], [no guarding], [no appreciable organomegaly] Ext: [no gross muscle atrophy], [1+ pitting bilateral lower extremity edema], [no contractures], [right upper extremity fistula without thrill] Neuro: [no focal neuro deficits] Psych: [Alert], [oriented], [appropriate affect] - Labs CBC & Chem 7: 10/23/19 07:52 10/23/19 07:52 Labs: Abnormal Lab Results - Last 24 Hours (Table) 10/22/19 10/22/19 10/22/19 Range/Units 12:36 12:36 12:36 RBC 3.27 L (3.80-5.40) m/uL Hgb 10.5 L (11.4-16.0) gm/dL Hct 32.5 L (34.0-46.0) % MCV (80.0-100.0) fL Chloride (98-107) mmol/L Carbon Dioxide (22-30) mmol/L BUN 101 H* (7-17) mg/dL Creatinine 2.55 H (0.52-1.04) mg/dL Glucose 184 H (74-99) mg/dL POC Glucose (mg/dL) (75-99) mg/dL Phosphorus 5.4 H (2.5-4.5) mg/dL Creatine Kinase 24 L (30-135) U/L Ur Leukocyte Esterase Small H (Negative) Urine WBC 11 H (0-5) /hpf Urine Mucus Rare H (None) /hpf 10/22/19 10/22/19 10/23/19 Range/Units 16:59 20:29 07:48 RBC (3.80-5.40) m/uL Hgb (11.4-16.0) gm/dL Hct (34.0-46.0) % MCV (80.0-100.0) fL Chloride (98-107) mmol/L Carbon Dioxide (22-30) mmol/L BUN (7-17) mg/dL Creatinine (0.52-1.04) mg/dL Glucose (74-99) mg/dL POC Glucose (mg/dL) 140 H 201 H 118 H (75-99) mg/dL Phosphorus (2.5-4.5) mg/dL Creatine Kinase (30-135) U/L Ur Leukocyte Esterase (Negative) Urine WBC (0-5) /hpf Urine Mucus (None) /hpf 10/23/19 10/23/19 10/23/19 Range/Units 07:52 07:52 11:36 RBC 3.08 L (3.80-5.40) m/uL Hgb 9.7 L (11.4-16.0) gm/dL Hct 30.9 L (34.0-46.0) % MCV 100.4 H (80.0-100.0) fL Chloride 109 H (98-107) mmol/L Carbon Dioxide 20 L (22-30) mmol/L BUN 98 H (7-17) mg/dL Creatinine 2.34 H (0.52-1.04) mg/dL Glucose 128 H (74-99) mg/dL POC Glucose (mg/dL) 280 H (75-99) mg/dL Phosphorus (2.5-4.5) mg/dL Creatine Kinase (30-135) U/L Ur Leukocyte Esterase (Negative) Urine WBC (0-5) /hpf Urine Mucus (None) /hpf Microbiology - Last 24 Hours (Table) 10/22/19 12:36 Urine Culture - Preliminary Urine,Voided Assessment and Plan Assessment: Constipation Stage IV CKD pending initiation of dialysis Diabetes mellitus with hyperglycemia Abnormal urinalysis Anemia Atrial fibrillation on anticoagulation Hypertension CAD Sleep apnea Hypothyroidism Plans for suppository today. BUN 101-98 creatinine 2.55-2.34 GFR 17-18. Patient is admitted for initiation of dialysis due to her symptoms of extreme fatigue and dyspnea. Plans: Daily BMP. Avoid nephrotoxins. Continue calcitriol. Continue sodium bicarbonate supplementation. Consult nephrology. Vascular access to be done tomorrow due to patient being on Eliquis. [id number] glucose 280. Plans: Insulin sliding-scale. Regular Accu-Cheks. Hyperglycemia precautions. Urinalysis shows leukocyte esterase positive. Patient is asymptomatic. Plans: Nothing further to do. Hemolytic 9.7. Normocytic. Likely due to chronic kidney disease. Plans: Daily CBC. Transfuse if hemoglobin less than 7. Plans: Continue atenolol. Continue flecainide. Stop Eliquis for plans to obtain dialysis access on Friday. BP 118/53. Plans: Continue beta henok. Continue Aldactone. Monitor vitals, adjust medications as necessary. Plans: Eliquis on hold for planned procedure. Continue Lipitor. Continue beta ehnok. Plans: CPAP at nighttime. Plans: Continue Synthroid. [Patient admitted for chronic kidney disease stage IV and initiation of dialysis for symptoms. Plans for fistulogram and vascular access to be done by vascular surgery tomorrow. Eliquis on hold. She is pending clinical improvement. Likely DC in 1-2 days.]
[2019-10-23] MEDS ORDERED: INSULIN ASPART (NovoLOG) 100 UNIT/ML VIAL SQ SCH ×2 (12:30→17:30)
--- NOTE | 2019-10-23 12:57 | P.NPCON ---
History of Present Illness - Reason for Consult Consult date: 10/23/19 acute renal failure - Chief Complaint Chronic kidney disease, short of breath - History of Present Illness This is an 83-year-old female known to us with chronic kidney disease stage IV, baseline creatinine is about 2.2 dated 05/27/2019 came in with shortness of breath and a creatinine of 2.64. Her urine protein to creatinine ratio of 0.5 date 10/14/2019 She presented with shortness of breath and fatigue over the last 1 week. She said that her urine output has dropped. She felt nauseated and may have vomited once and might have had some loose stools as well. No changes in medications. No numbness, tingling but she did say she had been experiencing some somnolence. She remains short of breath on exertion but that has not changed no cough no fever no chills No chest pain dizziness No headache She is known with hypothyroidism, obstructive sleep apnea on CPAP, had undergone a right upper extremity fistula on 07/14/2019 at [facility]. Past Medical History Past Medical History: Atrial Fibrillation, Heart Failure, Diabetes Mellitus, GERD/Reflux, Hyperlipidemia, Hypertension, Myocardial Infarction (CA), Osteoarthritis (OA), Renal Disease, Rheumatoid Arthritis (RA), Sleep Apnea/CPAP/BIPAP, Thyroid Disorder Additional Past Medical History / Comment(s): uti's,PALPITATIONS, Uses CPAP machine. Sick Sinus Syndrome with pacemaker, chronic afib. Stage 4 kidney disease. Last Myocardial Infarction Date:: 32 years ago History of Any Multi-Drug Resistant Organisms: ESBL Date of last positivie culture/infection: 07/03/18 ESBL E.coli MDRO Source:: URINE Past Surgical History: Hysterectomy, Pacemaker Additional Past Surgical History / Comment(s): hemmorrhoidectom y/rectocele/cystocele, cataracts,. vein stripping x2, right arm fistula placement. Past Anesthesia/Blood Transfusion Reactions: No Reported Reaction Type of Cardiac Device: Permanent Pacemaker Device Placement Date:: 01/2017 Past Psychological History: No Psychological Hx Reported Additional Psychological History / Comment(s): lives in own home has 2 steps into home. recieved cleaning services .no pets. gets meals on wheels. has cpap machine,rolling walker /cane. has life alert necklace. she is an adult daughter and son-in-law who help her with day to day needs including shopping and transporter as needed. If she needs to have outpatient antibiotic therapy it would come and stay with her. Smoking Status: Never smoker Past Alcohol Use History: None Reported Past Drug Use History: None Reported - Past Family History Father Family Medical History: Coronary Artery Disease (CAD), Hyperlipidemia, Hypertension, Myocardial Infarction (CA) Mother Family Medical History: Unable to Obtain Sister(s) Family Medical History: Cancer Medications and Allergies Home Medications Medication Instructions Recorded Confirmed Type Levothyroxine Sodium [Synthroid] 100 mcg PO DAILY 01/31/14 10/22/19 History Apixaban [Eliquis] 2.5 mg PO BID 10/12/16 10/22/19 History Flecainide [Tambocor] 50 mg PO BID 10/12/16 10/22/19 History Multivitamins, Thera [Multivitamin 1 tab PO DAILY 12/10/16 10/22/19 History (formulary)] Simvastatin [Zocor] 20 mg PO HS #90 tab 12/13/16 10/22/19 Rx Allopurinol [Zyloprim] 100 mg PO DAILY 01/18/17 10/22/19 History Calcitriol [Rocaltrol] 0.25 mcg PO MOTUWETHFR 01/18/17 10/22/19 History Atenolol [Tenormin] 50 mg PO BID 10/10/17 10/22/19 History Glimepiride [Amaryl] 1 mg PO AC-BID 10/10/17 10/22/19 History Spironolactone [Aldactone] 12.5 mg PO DAILY 10/10/17 10/22/19 History Sodium Bicarbonate Tab 650 mg PO BID #60 tab 02/22/18 10/22/19 Rx Acetaminophen [Tylenol] 1,000 mg PO Q8H PRN 05/22/18 10/22/19 History Cholecalciferol (Vitamin D3) 4,000 unit PO DAILY 05/26/19 10/22/19 History [Vitamin D3] Pantoprazole [Protonix] 40 mg PO DAILY 08/16/19 10/22/19 History Torsemide [Demadex] 20 mg PO DAILY tab 08/18/19 10/22/19 Rx Torsemide [Demadex] 10 mg PO DAILY@1400 10/22/19 10/22/19 History Allergies Allergy/AdvReac Type Severity Reaction Status Date / Time meperidine HCl [From Demerol] Allergy Nausea & Verified 10/22/19 12:16 Vomiting Penicillins Allergy Rash/Hives Verified 10/22/19 12:16 Sulfa (Sulfonamide Allergy Rash/Hives Verified 10/22/19 12:16 Antibiotics) Physical Exam Vitals: Vital Signs Temp Pulse Pulse Resp BP BP Pulse Ox 10/23/19 07:00 97.5 F L 60 18 118/53 94 L 10/22/19 22:16 97.8 F 60 17 147/64 100 10/22/19 18:04 151/60 10/22/19 15:00 97.4 F L 60 16 173/61 100 10/22/19 14:30 98.0 F 75 18 155/59 98 10/22/19 14:00 74 18 137/52 98 10/22/19 13:30 72 16 137/52 99 10/22/19 13:00 67 16 151/56 10/22/19 12:42 93 L Intake and Output 10/22/19 10/23/19 10/23/19 22:59 06:59 14:59 Intake Total 300 Balance 300 Intake: Oral 300 Other: # Voids 1 1 Weight 100.698 kg On examination she is awake alert oriented comfortable able to ambulate HEENT exam no JVP neck is supple no facial asymmetry Lungs are clear to auscultation good air entry bilaterally Heart sounds are unremarkable for any murmur rub gallop Abdomen soft nontender no organomegaly status masses Extremity exam was trace edema Neurologically awake alert oriented no asterixis She has a right upper arm fistula which is very deep and not be able to be used. Would likely need a second stage surgery to superficialize veins Results - Lab Results Most recent lab results Calcium 9.0 mg/dL (8.4-10.2) 10/23/19 07:52 Phosphorus 5.4 mg/dL (2.5-4.5) H 10/22/19 12:36 Magnesium 2.2 mg/dL (1.6-2.3) 10/22/19 12:36 10/23/19 07:52 10/23/19 07:52 Assessment and Plan Assessment: Impression 1. Acute kidney injury from possibly a viral syndrome with creatinine going up from 2.3-2.6 but further improving to 2.34 this morning. 2. Chronic kidney disease secondary to diabetic nephropathy. Baseline creatinine is 2.3 and GFR is 18-20 3. Mild degree of non-gap acidosis bicarb is 20 and gap 11 secondary to chronic kidney disease 4. Anemia of chronic kidney disease hemoglobin is 9.7 slightly below target 5. Blood pressure controlled 6. Status post AV fistula right upper arm but wean is deep and unable to be cannulated if needed will need surgery. Recommendation 1. Hold off any diuretic. 2. Check orthostatic changes and call me with results 3. Repeat labs tomorrow. 4. No dialysis for right now. 5. Consult Dr. Kendall lozano's surgery for her fistula which is deemed
[2019-10-23] MEDS: DARBEPOETIN ALFA 40 MCG/0.4 ML SYRINGE SQ SCH (14:21)
[2019-10-23 17:05] LABS: Glucose,Whole Blood 79 mg/dL (75-99)
[2019-10-23 17:05] LABS: Glucose,Whole Blood 65 mg/dL (75-99)
[2019-10-23] MEDS: ATORVASTATIN 10 MG TAB PO SCH (20:19)
[2019-10-23 20:25] LABS: Glucose,Whole Blood 137 mg/dL (75-99)
[2019-10-23 23:24] LABS: % Iron Saturation 9.58 (12.00-45.00)
[2019-10-24] MEDS: LEVOTHYROXINE 100 MCG TAB PO SCH (05:38)
[2019-10-24 07:22] LABS: Glucose,Whole Blood 145 mg/dL (75-99)
[2019-10-24 07:51] LABS: Basophils % (A) 1 %; Eosinophils # (A) 0.2 k/uL (0-0.7); Eosinophils % (A) 3 %; HCT 30.5 % (34.0-46.0); HGB 9.5 gm/dL (11.4-16.0); Lymphocytes # (A) 1.4 k/uL (1.0-4.8); Lymphocytes % (A) 22 %; MCH 30.8 pg (25.0-35.0); MCHC 31.2 g/dL (31.0-37.0); MCV 98.6 fL (80.0-100.0); Mean Platelet Volume 8.4; Monocytes # (A) 0.3 k/uL (0-1.0); Monocytes % (A) 5 %; Neutrophils # (A) 4.1 k/uL (1.3-7.7); Neutrophils % (A) 68 %; Platelet Count 163 k/uL (150-450); RBC 3.09 m/uL (3.80-5.40); RDW 14.4 % (11.5-15.5); WBC 6.1 k/uL (3.8-10.6)
[2019-10-24 08:03] LABS: Calcium 8.8 mg/dL (8.4-10.2); Potassium 4.7 mmol/L (3.5-5.1)
[2019-10-24] MEDS: FLECAINIDE 50 MG TAB PO SCH ×2 (08:22→21:08)
[2019-10-24] MEDS: PANTOPRAZOLE 40 MG TABLET PO SCH (08:22)
[2019-10-24] MEDS: INSULIN ASPART (NovoLOG) 100 UNIT/ML VIAL SQ SCH ×5 (08:22→21:07)
[2019-10-24] MEDS: SODIUM BICARBONATE TAB 650 MG TAB PO SCH ×2 (08:22→21:07)
[2019-10-24] MEDS: ALLOPURINOL 100 MG TAB PO SCH (08:22)
[2019-10-24] MEDS: ATENOLOL 50 MG TAB PO SCH ×2 (08:22→21:07)
[2019-10-24 12:14] LABS: Glucose,Whole Blood 189 mg/dL (75-99)
[2019-10-24] MEDS ORDERED: SODIUM FERRIC GLUCONAT-SUCROSE 125 MG in SODIUM CHLORIDE 0.9% 100 ML IVPB ONE (13:17)
--- NOTE | 2019-10-24 13:31 | P.PN ---
Subjective Progress Note Date: 10/24/19 Principal diagnosis: This is this 83-year-old female with chronic kidney disease stage IV baseline crit of 20-20 05/27/2019 came in with shortness of breath and a creatinine that had gone up to 2.64 on 10/14/2019. She was feeling somewhat nauseated and her urine output had dropped. This improved with hydration back to 2.3. Her symptoms are mostly to do with generalized fatigue and exertional shortness of breath. She has a good appetite occasionally does feel nauseated. Has some mild numbness tingling in her hands and feet. She is not somnolent. She is able to ambulate with a walker. Her GFR is 18 mL per minute She has a fistula in her right upper arm which is very deep and unable to be used. This morning she is not having any new complaints and she is feeling somewhat better. Vital signs are stable Urine output is not recorded Objective - Vital Signs Vital signs: Vital Signs Temp 97.8 F 10/24/19 06:22 Pulse 60 10/24/19 06:22 Resp 18 10/24/19 06:22 BP 129/65 10/24/19 06:22 Pulse Ox 94 L 10/24/19 06:22 Intake & Output 10/23/19 10/24/19 10/24/19 18:59 06:59 18:59 Intake Total 1000 500 Balance 1000 500 Intake: Oral 1000 500 Other: # Voids 1 # Bowel Movements 1 On exam she is awake alert oriented comfortable She is on room air. HEENT exam no JVP neck is supple no facial asymmetry Lungs are clear to auscultation, good air entry bilaterally Heart sounds unremarkable no murmur rub gallop Abdomen soft nontender no organomegaly ascites masses Extremity exam was trace edema Neurologically awake alert oriented - Labs CBC & Chem 7: 10/24/19 07:19 10/24/19 07:19 Labs: Abnormal Lab Results - Last 24 Hours (Table) 10/23/19 10/23/19 10/23/19 Range/Units 07:52 16:43 20:23 RBC (3.80-5.40) m/uL Hgb (11.4-16.0) gm/dL Hct (34.0-46.0) % Chloride (98-107) mmol/L Carbon Dioxide (22-30) mmol/L BUN (7-17) mg/dL Creatinine (0.52-1.04) mg/dL Glucose (74-99) mg/dL POC Glucose (mg/dL) 65 L 137 H (75-99) mg/dL Iron 25 L (50-170) ug/dL % Saturation 9.58 L (12.00-45.00) 10/24/19 10/24/19 10/24/19 Range/Units 07:04 07:19 07:19 RBC 3.09 L (3.80-5.40) m/uL Hgb 9.5 L (11.4-16.0) gm/dL Hct 30.5 L (34.0-46.0) % Chloride 108 H (98-107) mmol/L Carbon Dioxide 20 L (22-30) mmol/L BUN 87 H (7-17) mg/dL Creatinine 2.34 H (0.52-1.04) mg/dL Glucose 135 H (74-99) mg/dL POC Glucose (mg/dL) 145 H (75-99) mg/dL Iron (50-170) ug/dL % Saturation (12.00-45.00) 10/24/19 Range/Units 11:59 RBC (3.80-5.40) m/uL Hgb (11.4-16.0) gm/dL Hct (34.0-46.0) % Chloride (98-107) mmol/L Carbon Dioxide (22-30) mmol/L BUN (7-17) mg/dL Creatinine (0.52-1.04) mg/dL Glucose (74-99) mg/dL POC Glucose (mg/dL) 189 H (75-99) mg/dL Iron (50-170) ug/dL % Saturation (12.00-45.00) Microbiology - Last 24 Hours (Table) 10/22/19 12:36 Urine Culture - Final Urine,Voided Assessment and Plan Assessment: Impression 1. Acute kidney injury from possibly a viral syndrome with creatinine going up from 2.3-2.6 but further improving to 2.34 this morning. 2. Chronic kidney disease secondary to diabetic nephropathy. Baseline creatinine is 2.3 and GFR is 18-20 3. Mild degree of non-gap acidosis bicarb is 20 and gap 11 secondary to chronic kidney disease, bicarb is 20 this morning with a gap of 10 4. Anemia of chronic kidney disease hemoglobin is 9.7 slightly below target, hemoglobin is 9.5 this morning 5. Blood pressure controlled 6. Status post AV fistula right upper arm but is deep and unable to be cannulated if needed, therefore will need surgery. Recommendation 1. Hold off any diuretic. 2. No dialysis for right now. 3. Consult Dr. Kendall lozano's surgery for her fistula 4. Can be discharged to be followed up in the office in one week
--- NOTE | 2019-10-24 13:33 | P.PN ---
Subjective Progress Note Date: 10/24/19 Principal diagnosis: Chronic kidney disease stage IV, shortness of breath Patient was seen and examined. No acute events overnight. Patient reports continuation of symptoms that is not improved. Patient states that she is not short of breath when she is at rest. Had some episodes of vomiting at home but none currently. She continues to complain of extreme fatigue and weakness. She denies any chest pain or palpitations. No fever or chills. Objective - Vital Signs Vital signs: Vital Signs Temp 97.8 F 10/24/19 06:22 Pulse 60 10/24/19 06:22 Resp 18 10/24/19 06:22 BP 129/65 10/24/19 06:22 Pulse Ox 94 L 10/24/19 06:22 Intake & Output 10/23/19 10/24/19 10/24/19 18:59 06:59 18:59 Intake Total 1000 500 Balance 1000 500 Intake: Oral 1000 500 Other: # Voids 1 # Bowel Movements 1 - Exam General: [non toxic], [no distress], [appears at stated age] Derm: [warm], [dry] Head: [atraumatic], [normocephalic], [symmetric] Eyes: [EOMI], [no lid lag], [anicteric sclera] Mouth: [no lip lesion], [mucus membranes moist] Cardiovascular: [S1S2 reg], [no murmur], [positive DP pulse bilateral], Lungs: [Decreased breath sounds bilateral], [no rhonchi, no rales] , [no accessory muscle use] Abdominal: [soft], [ nontender to palpation], [no guarding], [no appreciable organomegaly] Ext: [no gross muscle atrophy], [1+ pitting bilateral lower extremity edema], [no contractures], [right upper extremity fistula without thrill] Neuro: [no focal neuro deficits] Psych: [Alert], [oriented], [appropriate affect] - Labs CBC & Chem 7: 10/24/19 07:19 10/24/19 07:19 Labs: Abnormal Lab Results - Last 24 Hours (Table) 10/23/19 10/23/19 10/23/19 Range/Units 07:52 16:43 20:23 RBC (3.80-5.40) m/uL Hgb (11.4-16.0) gm/dL Hct (34.0-46.0) % Chloride (98-107) mmol/L Carbon Dioxide (22-30) mmol/L BUN (7-17) mg/dL Creatinine (0.52-1.04) mg/dL Glucose (74-99) mg/dL POC Glucose (mg/dL) 65 L 137 H (75-99) mg/dL Iron 25 L (50-170) ug/dL % Saturation 9.58 L (12.00-45.00) 10/24/19 10/24/19 10/24/19 Range/Units 07:04 07:19 07:19 RBC 3.09 L (3.80-5.40) m/uL Hgb 9.5 L (11.4-16.0) gm/dL Hct 30.5 L (34.0-46.0) % Chloride 108 H (98-107) mmol/L Carbon Dioxide 20 L (22-30) mmol/L BUN 87 H (7-17) mg/dL Creatinine 2.34 H (0.52-1.04) mg/dL Glucose 135 H (74-99) mg/dL POC Glucose (mg/dL) 145 H (75-99) mg/dL Iron (50-170) ug/dL % Saturation (12.00-45.00) 10/24/19 Range/Units 11:59 RBC (3.80-5.40) m/uL Hgb (11.4-16.0) gm/dL Hct (34.0-46.0) % Chloride (98-107) mmol/L Carbon Dioxide (22-30) mmol/L BUN (7-17) mg/dL Creatinine (0.52-1.04) mg/dL Glucose (74-99) mg/dL POC Glucose (mg/dL) 189 H (75-99) mg/dL Iron (50-170) ug/dL % Saturation (12.00-45.00) Microbiology - Last 24 Hours (Table) 10/22/19 12:36 Urine Culture - Final Urine,Voided Assessment and Plan Assessment: Stage IV CKD pending initiation of dialysis Diabetes mellitus with hyperglycemia Abnormal urinalysis Anemia Atrial fibrillation on anticoagulation Hypertension CAD Sleep apnea Hypothyroidism BUN 101-98-87 creatinine 2.55-2.34-2.34 GFR 17-18-18. Patient is admitted for initiation of dialysis due to her symptoms of extreme fatigue and dyspnea. Plans: Daily BMP. Avoid nephrotoxins. Continue calcitriol. Continue sodium bicarbonate supplementation. Consult nephrology. Nephrology recommends holding off of dialysis and procedure for catheter placement has been canceled. Will discuss with Dr. Child tomorrow morning the need for dialysis in this patient. There are plans to repeat BMP tomorrow morning. [id number] glucose 189. Plans: Insulin sliding-scale. Regular Accu-Cheks. Hyperglycemia precautions. Urinalysis shows leukocyte esterase positive. Patient is asymptomatic. Plans: Nothing further to do. Hemolytic 9.7-9.5. Normocytic. Likely due to chronic kidney disease. Plans: Transfuse if hemoglobin less than 7. Plans: Continue atenolol. Continue flecainide. Stop Eliquis for plans to obtain dialysis access on Friday. BP 129/65. Plans: Continue beta henok. Continue Aldactone. Monitor vitals, adjust medications as necessary. Plans: Eliquis on hold for planned procedure. Continue Lipitor. Continue beta henok. Plans: CPAP at nighttime. Plans: Continue Synthroid. [Patient admitted for chronic kidney disease stage IV and initiation of dialysis for symptoms. Plans for dialysis canceled by nephrology. Patient with same symptoms as she had on admission. Repeat BMP tomorrow morning. Will discuss with Dr. Child need for dialysis. Likely DC in 1-2 days.]
[2019-10-24 17:28] LABS: Glucose,Whole Blood 152 mg/dL (75-99)
[2019-10-24 20:13] LABS: Glucose,Whole Blood 150 mg/dL (75-99)
[2019-10-24] MEDS: ATORVASTATIN 10 MG TAB PO SCH (21:07)
[2019-10-25] MEDS: LEVOTHYROXINE 100 MCG TAB PO SCH (06:23)
[2019-10-25 07:04] LABS: Glucose,Whole Blood 142 mg/dL (75-99)
[2019-10-25] MEDS: ALLOPURINOL 100 MG TAB PO SCH (08:16)
[2019-10-25] MEDS: ATENOLOL 50 MG TAB PO SCH ×2 (08:16→20:54)
[2019-10-25] MEDS: PANTOPRAZOLE 40 MG TABLET PO SCH (08:16)
[2019-10-25] MEDS: SODIUM BICARBONATE TAB 650 MG TAB PO SCH ×2 (08:16→20:54)
[2019-10-25] MEDS: INSULIN ASPART (NovoLOG) 100 UNIT/ML VIAL SQ SCH ×4 (08:16→20:53)
[2019-10-25] MEDS: FLECAINIDE 50 MG TAB PO SCH ×2 (08:16→20:54)
[2019-10-25] MEDS: CALCITRIOL 0.25 MCG CAP PO SCH (08:16)
[2019-10-25 08:51] LABS: Calcium 9.2 mg/dL (8.4-10.2); Potassium 5.3 mmol/L (3.5-5.1)
[2019-10-25 09:26] LABS: Basophils % (A) 0 %; Eosinophils # (A) 0.2 k/uL (0-0.7); Eosinophils % (A) 2 %; HCT 33.2 % (34.0-46.0); HGB 10.6 gm/dL (11.4-16.0); Lymphocytes # (A) 1.6 k/uL (1.0-4.8); Lymphocytes % (A) 19 %; MCH 31.9 pg (25.0-35.0); MCHC 31.9 g/dL (31.0-37.0); Macrocytosis Slight; Mean Platelet Volume 8.7; Monocytes # (A) 0.4 k/uL (0-1.0); Monocytes % (A) 5 %; Neutrophils # (A) 5.9 k/uL (1.3-7.7); Neutrophils % (A) 72 %; Platelet Count 180 k/uL (150-450); RBC 3.32 m/uL (3.80-5.40); RDW 14.4 % (11.5-15.5); WBC 8.2 k/uL (3.8-10.6)
--- NOTE | 2019-10-25 09:53 | P.PN ---
Subjective Chart was reviewed and patient examined. Except generalized weakness patient does not have any new complaints. She denies any shortness of breath at rest. Denies any nausea or vomiting. Her appetite has been decent. She's been having long-standing problems with difficulties in ambulation. She has numbness in both of her feet and hands. She has severe osteoarthritis in her knees and hips. Objective - Vital Signs Vital signs: Vital Signs Temp 97.0 F L 10/25/19 05:00 Pulse 60 10/25/19 05:00 Resp 20 10/25/19 05:00 BP 166/70 10/25/19 05:00 Pulse Ox 100 10/25/19 05:00 Intake & Output 10/24/19 10/25/19 10/25/19 18:59 06:59 18:59 Intake Total 320 900 Balance 320 900 Intake: Oral 320 900 Other: Voiding Method Toilet # Voids 2 3 - Exam Vital Signs: I have reviewed the vital signs. GENERAL: Well-nourished, Well-developed , no apparent distress, cooperative Eyes: PERRL, extraoculry movements intact, clear conjunctiva Head: : Atraumatic external nose and ears, oropharyngeal mucosa is moist without lesions or exudates Neck: Symmetric, trachea midline, No thyromegaly, no masses or neck vain pulsation, no neck rigidity CVS: +S1/S2, No murmurs or gallops. RESP: Unlabored respiratory effort. Clear to auscultation bilaterally. Abdomen: Bowel sounds present in all 4 quadrants, Soft to palpation, Nontender/Nondistended, No hepatosplenomegaly, no hernias or masses, no CVA tnderness Musculoskeletal: She has reduced mobility in both of her ankles and knees. There is some on kilos in the right ankle. No warmth or erythema. Right lower extremity with chronic swelling. Skin: Warm, Dry. 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, motor strenght 5/5 i upper and lower extremities, no clonus, patellar DTRs 2+ and sympetrical Psych: Awake, Alert, & Oriented (AAO) x3 Appropriate mood and affect - Labs CBC & Chem 7: 10/25/19 07:54 10/25/19 07:54 Labs: Abnormal Lab Results - Last 24 Hours (Table) 10/24/19 10/24/1910/24/20 Range/Units 11:59 17:01 20:12 RBC (3.80-5.40) m/uL Hgb (11.4-16.0) gm/dL Hct (34.0-46.0) % Potassium (3.5-5.1) mmol/L Carbon Dioxide (22-30) mmol/L BUN (7-17) mg/dL Creatinine (0.52-1.04) mg/dL Glucose (74-99) mg/dL POC Glucose (mg/dL) 189 H 152 H 150 H (75-99) mg/dL 10/25/19 10/25/19 10/25/19 Range/Units 07:01 07:54 07:54 RBC 3.32 L (3.80-5.40) m/uL Hgb 10.6 L (11.4-16.0) gm/dL Hct 33.2 L (34.0-46.0) % Potassium 5.3 H (3.5-5.1) mmol/L Carbon Dioxide 21 L (22-30) mmol/L BUN 83 H (7-17) mg/dL Creatinine 2.17 H (0.52-1.04) mg/dL Glucose 140 H (74-99) mg/dL POC Glucose (mg/dL) 142 H (75-99) mg/dL Assessment and Plan Assessment: 1. Acute on chronic kidney injury CKD stage IVV Continue present medications as per nephrology recommendations Awaiting nephrology input regarding need for initiating dialysis 2. Generalized weakness and difficulties in ambulation No obvious focal deficits Peripheral neuropathy and severe osteoarthritis certainly contributing to difficulties in ambulation Check flecainide level due to worsening renal function, as medications Have side effects of generalized weakness Check TSH 3. Paroxysmal atrial fibrillation Clinically patient appears to be in regular rhythm EKG showed paced rhythm Restart Eliquis once definitely no plans for any surgical interventions Check flecainide level 4. Chronic anemia Hemoglobin stable Clinically no signs of bleeding Likely see kidney with a component of iron deficiency She received IV iron as ordered by nephrology She's currently receiving DODIE 5. Type 2 diabetes mellitus with peripheral neuropathy Last A1c 6.5 Continue present management 6. Difficulties in ambulation Physical occupational therapy to evaluate the patient Most likely will need placement in a transitional rehab 7. Chronic diastolic CHF Diuretics on hold per nephrology
--- NOTE | 2019-10-25 10:01 | ECHOF ---
Referral Reason:shortness of breath MEASUREMENTS -------- HEIGHT: 167.6 cm WEIGHT: 100.7 kg BP: 166/70 IVSd: 1.3 cm (0.6 - 1.1) LVIDd: 5.4 cm (3.9 - 5.3) LVPWd: 1.2 cm (0.6 - 1.1) IVSs: 1.9 cm LVIDs: 3.5 cm LVPWs: 2.0 cm LA Diam: 3.9 cm (2.7 - 3.8) RVIDd: 3.3 cm (< 3.3) LAESV Index (A-L): 32.98 ml/m Ao Diam: 3.1 cm (2.0 - 3.7) AV Cusp: 1.5 cm (1.5 - 2.6) EPSS: 0.8 cm MV E Earnest: 1.50 m/s MV DecT: 169 ms MV A Earnest: 0.71 m/s MV E/A Ratio: 2.12 AV maxP.44 mmHg AV meanP.19 mmHg RAP: 5.00 mmHg RVSP: 66.22 mmHg MV EF SLOPE: 135.53 mm/s (70 - 150) MV EXCURSION: 18.07 mm (> 18.000) FINDINGS -------- Paced rhythm. This was a technically adequate study. The left ventricular size is normal. There is mild concentric left ventricular hypertrophy. Overa ll left ventricular systolic function is normal with, an EF between 55 - 60 %. The right ventricle is mildly enlarged. LA is midly dilated 29-33ml/m2. The right atrium is normal in size. Interatrial and interventricular septum intact. There is mild aortic valve sclerosis. Trace to mild aortic regurgitation. There is mild aortic st enosis present. Peak/mean gradient across the Aortic Valve is 20.44mmHg / 10.19mmHg. Mild mitral annular calcification present. Mild mitral regurgitation is present. [id number] tricuspid regurgitation present. There is severe pulmonary hypertension. The rig ht ventricular systolic pressure, as measured by Doppler, is 66.22mmHg. Trace/mild (physiologic) pulmonic regurgitation. The aortic root size is normal. Normal inferior vena cava with normal inspiratory collapse consistent with estimated right atrial pre ssure of 5 mmHg. The inferior vena cava is mildly dilated. There is no pericardial effusion. CONCLUSIONS -------- 1. Paced rhythm. 2. This was a technically adequate study. 3. The left ventricular size is normal. 4. There is mild concentric left ventricular hypertrophy. 5. Overall left ventricular systolic function is normal with, an EF between 55 - 60 %. 6. The right ventricle is mildly enlarged. 7. LA is midly dilated 29-33ml/m2. 8. The right atrium is normal in size. 9. Interatrial and interventricular septum intact. 10. There is mild aortic valve sclerosis. 11. Trace to mild aortic regurgitation. 12. There is mild aortic stenosis present. 13. Peak/mean gradient across the Aortic Valve is 20.44mmHg / 10.19mmHg. 14. Mild mitral annular calcification present. 15. Mild mitral regurgitation is present. 16. [id number] tricuspid regurgitation present. 17. There is severe pulmonary hypertension. 18. The right ventricular systolic pressure, as measured by Doppler, is 66.22mmHg. 19. Trace/mild (physiologic) pulmonic regurgitation. 20. The aortic root size is normal. 21. Normal inferior vena cava with normal inspiratory collapse consistent with estimated right atrial pressure of 5 mmHg. 22. The inferior vena cava is mildly dilated. 23. There is no pericardial effusion. HEALTH COMPANION: Payton Duensa RDCS
[2019-10-25 10:20] LABS: % Iron Saturation 11.86 (12.00-45.00)
[2019-10-25 11:29] LABS: Ferritin 178.4 ng/mL (10.0-291.0)
[2019-10-25 12:30] LABS: Glucose,Whole Blood 209 mg/dL (75-99)
--- NOTE | 2019-10-25 12:53 | PN ---
PROGRESS NOTE Patient is seen for followup for chronic kidney disease and acute kidney injury. She was admitted to the hospital with nausea and decreased oral intake and decreased urine output. The patient was initially sent in to start dialysis. However, her renal function improved over the weekend and overall patient states she is feeling better. Therefore, the dialysis is currently on hold. PHYSICAL EXAMINATION: This morning, blood pressure is 166/70, heart rate 60 per minute, she is afebrile . Examination of the heart S1, S2. Examination of the lungs, bilateral breath sounds are heard. Decreased breath sounds at base. Abdomen is soft, nontender. Examination of the lower extremities shows edema 1+ bilaterally. MED SPEC exam grossly intact. LABS: Show sodium of 137, potassium 5.3, chloride 105, CO2 is 21, BUN 83, creatinine 2.17, hemoglobin 10.6 g/dL. ASSESSMENT: 1. CKD stage IV, secondary to nephrosclerosis renal function close to baseline now. 2. Acute kidney injury, mostly prerenal, currently resolved, improving. 3. CKD mineral bone disorder, maintained on calcitriol. 4. Rule out urinary tract infection. Initial UA on 10/22 did not show any significant pyuria. However, patient is complaining of symptoms currently. We will recheck a UA. 5. Anemia of chronic disease maintained on Aranesp. PLAN: Continue to hold off on dialysis. Patient will need to follow up as outpatient with Dr. Argueta for further surgery on her AV fistula. Continue with the sodium bicarb for now. Patient has not been on any diuretics. I will add low-dose Demodex tomorrow if her serum potassium is higher. She should be maintained on low-potassium diet for now. MMODL / IJN: [id number] /
--- NOTE | 2019-10-25 14:14 | PN ---
PROGRESS NOTE Patient has history of chronic renal failure. Patient had a right basilic brachial fistula done in the past. The patient has been admitted with high BUN and creatinine. The patient was scheduled to have a dialysis catheter. The kidney function improved. PLAN: Patient going home. I will follow her in my office next week. We will wait for the function to improve, and she will need a transition of the basilic vein. Discussed with Nephrology, will schedule as an outpatient. MMODL / IJN: [id number] /
[2019-10-25 16:52] LABS: Glucose,Whole Blood 160 mg/dL (75-99)
[2019-10-25 18:26] LABS: Appearance,Urine Turbid (Clear); Bacteria,Urine Few /hpf; Bilirubin,Urine Negative (Negative); Blood,Urine Moderate (Negative); Color,Urine Yellow; Glucose,Urine (UA) Negative (Negative); Ketones,Urine Negative (Negative); Leukocyte Esterase,Urine Large (Negative); Nitrite,Urine Negative (Negative); Protein,Urine 2+ (Negative); RBC,Urine 25 /hpf (0-5); Urobilinogen,Urine <2.0 mg/dL (<2.0); WBC,Urine >182 /hpf (0-5)
[2019-10-25 18:35] LABS: Specific Gravity,Urine 1.015 (1.001-1.035)
[2019-10-25 20:07] LABS: Glucose,Whole Blood 174 mg/dL (75-99)
[2019-10-25] MEDS: ATORVASTATIN 10 MG TAB PO SCH (20:54)
[2019-10-26] MEDS: LEVOTHYROXINE 100 MCG TAB PO SCH (05:52)
[2019-10-26 07:52] LABS: Glucose,Whole Blood 128 mg/dL (75-99)
[2019-10-26] MEDS: INSULIN ASPART (NovoLOG) 100 UNIT/ML VIAL SQ SCH ×4 (07:55→21:20)
[2019-10-26] MEDS: ATENOLOL 50 MG TAB PO SCH ×2 (07:58→21:19)
[2019-10-26] MEDS: SODIUM BICARBONATE TAB 650 MG TAB PO SCH ×2 (07:58→21:19)
[2019-10-26] MEDS: FLECAINIDE 50 MG TAB PO SCH ×2 (07:58→21:19)
[2019-10-26] MEDS: PANTOPRAZOLE 40 MG TABLET PO SCH (07:58)
[2019-10-26] MEDS: ALLOPURINOL 100 MG TAB PO SCH (07:58)
[2019-10-26] MEDS: CALCITRIOL 0.25 MCG CAP PO SCH (07:59)
[2019-10-26] MEDS ORDERED: CEPHALEXIN 500 MG CAP PO SCH (09:00)
[2019-10-26 09:11] LABS: Basophils % (A) 0 %; Eosinophils # (A) 0.1 k/uL (0-0.7); Eosinophils % (A) 2 %; HGB 9.8 gm/dL (11.4-16.0); Lymphocytes # (A) 1.1 k/uL (1.0-4.8); Lymphocytes % (A) 16 %; MCH 31.5 pg (25.0-35.0); MCHC 31.6 g/dL (31.0-37.0); MCV 99.9 fL (80.0-100.0); Macrocytosis Slight; Mean Platelet Volume 8.3; Monocytes # (A) 0.4 k/uL (0-1.0); Monocytes % (A) 5 %; Neutrophils % (A) 74 %; Platelet Count 156 k/uL (150-450); RDW 14.5 % (11.5-15.5); WBC 6.7 k/uL (3.8-10.6)
--- NOTE | 2019-10-26 09:21 | P.PN ---
Subjective Patient states that she's feeling somewhat stronger and more energetic this morning. Her appetite has been decent and she ate her breakfast. She work with physical therapy yesterday and ambulated with a walker. She does use a rolling walker at baseline at home. She has severe osteoarthritis and lower extremities and peripheral neuropathy. Other complaint includes urgency and frequency with urination note burning. She also reports white crowdy vaginal discharge compatible with her previous history of yeast Monalisa infection. There are no immediate plans for hemodialysis and recommendation was made for her to go to shelter facility. Objective - Vital Signs Vital signs: Vital Signs Temp 97.4 F L 10/26/19 07:00 Pulse 60 10/26/19 07:00 Resp 16 10/26/19 07:00 BP 144/74 10/26/19 07:00 Pulse Ox 98 10/26/19 07:00 Intake & Output 10/25/19 10/26/19 10/26/19 18:59 06:59 18:59 Intake Total 500 Output Total 2 Balance 498 Intake: Oral 500 Output: Urine 2 Other: Voiding Method Toilet # Voids 3 2 - Exam Vital Signs: I have reviewed the vital signs. GENERAL: Well-nourished, Well-developed , no apparent distress, cooperative Eyes: PERRL, extraoculry movements intact, clear conjunctiva Head: : Atraumatic external nose and ears, oropharyngeal mucosa is moist without lesions or exudates Neck: Symmetric, trachea midline, No thyromegaly, no masses or neck vain pulsat ion, no neck rigidity CVS: +S1/S2, No murmurs or gallops. RESP: Unlabored respiratory effort. Clear to auscultation bilaterally. Abdomen: Bowel sounds present in all 4 quadrants, Soft to palpation, Nontender/Nondistended, No hepatosplenomegaly, no hernias or masses, no CVA tn derness Musculoskeletal: She has reduced mobility in both of her ankles and knees. There is some on kilos in the right ankle. No warmth or erythema. Right lower extremity with chronic swelling. Skin: Warm, Dry. 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, motor strenght 5/5 i upper and lower extremities, no clonus, patellar DTRs 2+ and sympetrical Psych: Awake, Alert, & Oriented (AAO) x3 Appropriate mood and affect - Labs CBC & Chem 7: 02/25/20 08:33 10/25/19 07:54 Labs: Abnormal Lab Results - Last 24 Hours (Table) 10/24/19 10/25/19 10/25/19 Range/Units 07:19 07:54 12:27 RBC 3.32 L (3.80-5.40) m/uL Hgb 10.6 L (11.4-16.0) gm/dL Hct 33.2 L (34.0-46.0) % POC Glucose (mg/dL) 209 H (75-99) mg/dL Iron 30 L (50-170) ug/dL % Saturation 11.86 L (12.00-45.00) Urine Appearance (Clear) Urine Protein (Negative) Urine Blood (Negative) Ur Leukocyte Esterase (Negative) Urine RBC (0-5) /hpf Urine WBC (0-5) /hpf Urine WBC Clumps (None) /hpf Urine Bacteria (None) /hpf 10/25/19 10/25/19 10/25/19 Range/Units 16:49 18:15 19:56 RBC (3.80-5.40) m/uL Hgb (11.4-16.0) gm/dL Hct (34.0-46.0) % POC Glucose (mg/dL) 160 H 174 H (75-99) mg/dL Iron (50-170) ug/dL % Saturation (12.00-45.00) Urine Appearance Turbid H (Clear) Urine Protein 2+ H (Negative) Urine Blood Moderate H (Negative) Ur Leukocyte Esterase Large H (Negative) Urine RBC 25 H (0-5) /hpf Urine WBC >182 H (0-5) /hpf Urine WBC Clumps Many H (None) /hpf Urine Bacteria Few H (None) /hpf 10/26/19 10/26/19 Range/Units 07:42 08:33 RBC 3.10 L (3.80-5.40) m/uL Hgb 9.8 L (11.4-16.0) gm/dL Hct 31.0 L (34.0-46.0) % POC Glucose (mg/dL) 128 H (75-99) mg/dL Iron (50-170) ug/dL % Saturation (12.00-45.00) Urine Appearance (Clear) Urine Protein (Negative) Urine Blood (Negative) Ur Leukocyte Esterase (Negative) Urine RBC (0-5) /hpf Urine WBC (0-5) /hpf Urine WBC Clumps (None) /hpf Urine Bacteria (None) /hpf Assessment and Plan Assessment: # Acute on chronic kidney injury CKD stage IVV Creatinine and BUN have improved and she reports good urine output as normal for her Nephrology recommended discharge and no hemodialysis for now #Urinary tract infection Patient is nontoxic nonseptic appearing Urine analysis with significant pyuria, leukocyte esterase, RBCs, nitrates Previous urine cultures showed pansensitive E. coli and group B streptococcus Current urine cultures no growth to date Patient tolerated cephalosporins in the past, and most recently in August of last year. We will start her on Keflex for 5 days. # Generalized weakness and difficulties in ambulation No obvious focal deficits Peripheral neuropathy and severe osteoarthritis certainly contributing to difficulties in ambulation Flecainide level sent out and pending although her dosing is compatible with renal function TSH pending She'll work with physical therapy Plan to discharge to shelter facility for physical therapy and close follow-up of her labs and medications on outpatient basis #Paroxysmal atrial fibrillation Clinically patient appears to be in regular rhythm EKG showed paced rhythm Since no plans for hemodialysis and axis creation we will restart her Eliquis today # Chronic anemia Hemoglobin stable Clinically no signs of bleeding Likely see kidney with a component of iron deficiency She received IV iron as ordered by nephrology She's currently receiving DODIE # Type 2 diabetes mellitus with peripheral neuropathy Last A1c 6.5 Continue present management # Difficulties in ambulation Physical occupational therapy to evaluate the patient Most likely will need placement in a transitional rehab #Chronic diastolic CHF Diuretics on hold per nephrology Disposition: Plan for discharge to shelter facility today. We'll ask nephrology to evaluate the patient would need diuretics on discharge
[2019-10-26 09:44] LABS: Calcium 8.7 mg/dL (8.4-10.2); Potassium 4.7 mmol/L (3.5-5.1)
[2019-10-26 12:04] LABS: Glucose,Whole Blood 193 mg/dL (75-99)
[2019-10-26] MEDS ORDERED: FUROSEMIDE 10 MG/ML 10 ML VIAL IV STA (12:17)
--- NOTE | 2019-10-26 13:38 | PN ---
PROGRESS NOTE Patient is seen for followup for CKD. She was initially admitted for possibly starting dialysis. However, renal function had improved post admission. Therefore, patient was not started on dialysis. This morning she is complaining of shortness of breath. She appears volume overloaded. Patient has also been complaining of increased urinary frequency and therefore a repeat UA was ordered yesterday which did come back as positive and it is a lot different from the UA on 10/22/2019. The urine culture from 10/22 did not show any growth. However, the urine will be sent again for culture. There is no ongoing fever. White cell count is not elevated. The patient was supposed to get discharged to [facility] today; however I will hold off on her discharge given the volume overload and the new UTI. PHYSICAL EXAMINATION: On examination today, patient is mildly short of breath, short of breath. Blood pressure is 144/74, heart rate 60 per minute. She is afebrile. EXAMINATION OF THE HEART: S1, S2. EXAMINATION OF LUNGS: Decreased breath sounds at the bases. Basal crackles are heard. ABDOMEN: Soft, nontender. Examination of lower extremities shows edema 2+ bilaterally. QUANTITATIVE DEVELOPER EXAM: Grossly intact. LABS: Labs show sodium 137, potassium 4.7, chloride 106, CO2 is 20, BUN 77, creatinine 2.19. GFR is at 20 mL/minute. ASSESSMENT: 1. Chronic kidney disease NKF stage 4 secondary to nephrosclerosis. 2. Acute kidney injury most likely prerenal currently improved. 3. Volume overload. We will give her one dose of IV Lasix and then we can resume her home dose of diuretics. 4. New urinary tract infection. Repeat urine culture will be ordered. Previous urine culture on 10/14/2019 grew Escherichia coli which was resistant to most antibiotics. Therefore, we will wait for the cultures to start her antibiotics. 5. Generalized debility. PLAN: Hold discharge, IV Lasix x1. Repeat a urine culture again and IV antibiotics based on the urine culture. MMODL / IJN: [id number] /
[2019-10-26 16:54] LABS: Glucose,Whole Blood 152 mg/dL (75-99)
[2019-10-26] MEDS: APIXABAN 2.5 MG TABLET PO SCH (16:56)
[2019-10-26 21:03] LABS: Glucose,Whole Blood 154 mg/dL (75-99)
[2019-10-26] MEDS: ATORVASTATIN 10 MG TAB PO SCH (21:19)
[2019-10-26] MEDS: CEPHALEXIN 250 MG CAP PO SCH (21:19)
[2019-10-26] MEDS: MICONAZOLE NITRATE 4%/2% VAG CREAM KIT VAGINAL SCH (21:25)
[2019-10-27 01:58] LABS: Glucose,Whole Blood 110 mg/dL (75-99)
[2019-10-27] MEDS: LEVOTHYROXINE 100 MCG TAB PO SCH (06:12)
[2019-10-27 06:49] LABS: Glucose,Whole Blood 145 mg/dL (75-99)
[2019-10-27] MEDS: APIXABAN 2.5 MG TABLET PO SCH (08:05)
[2019-10-27] MEDS: PANTOPRAZOLE 40 MG TABLET PO SCH (08:05)
[2019-10-27] MEDS: SODIUM BICARBONATE TAB 650 MG TAB PO SCH ×2 (08:05→21:14)
[2019-10-27] MEDS: ALLOPURINOL 100 MG TAB PO SCH (08:05)
[2019-10-27] MEDS: INSULIN ASPART (NovoLOG) 100 UNIT/ML VIAL SQ SCH ×4 (08:05→21:15)
[2019-10-27] MEDS: ATENOLOL 50 MG TAB PO SCH ×2 (08:05→21:14)
[2019-10-27] MEDS: CALCITRIOL 0.25 MCG CAP PO SCH (08:06)
[2019-10-27] MEDS: FLECAINIDE 50 MG TAB PO SCH ×2 (08:06→22:10)
[2019-10-27] MEDS: CEPHALEXIN 250 MG CAP PO SCH (08:06)
[2019-10-27 09:19] LABS: Calcium 9.1 mg/dL (8.4-10.2); Magnesium 2.2 mg/dL (1.6-2.3); Potassium 4.5 mmol/L (3.5-5.1)
[2019-10-27] MEDS: FUROSEMIDE 10 MG/ML 10 ML VIAL IV SCH ×2 (09:43→21:13)
--- NOTE | 2019-10-27 09:44 | P.PN ---
Subjective Patient reports no new events overnight. She did have some shortness of breath and dry cough yesterday and she was started back on diuresis by nephrology. She put out about 1.2 L overnight of urine. She does not report any significant complaints this morning. Objective - Vital Signs Vital signs: Vital Signs Temp 97.6 F 10/27/19 05:54 Pulse 61 10/27/19 05:54 Resp 16 10/27/19 05:54 BP 153/65 10/27/19 05:54 Pulse Ox 99 10/27/19 05:54 Intake & Output 10/26/19 10/27/19 10/27/19 18:59 06:59 18:59 Output Total 1200 Balance -1200 Output: Urine 1200 Other: # Voids 3 - Exam Vital Signs: I have reviewed the vital signs. GENERAL: Well-nourished, Well-developed , no apparent distress, cooperative Eyes: PERRL, extraoculry movements intact, clear conjunctiva Head: : Atraumatic external nose and ears, oropharyngeal mucosa is moist without lesions or exudates Neck: Symmetric, trachea midline, No thyromegaly, no masses or neck vain pulsation, no neck rigidity CVS: +S1/S2, No murmurs or gallops. RESP: Unlabored respiratory effort. Clear to auscultation bilaterally. Abdomen: Bowel sounds present in all 4 quadrants, Soft to palpation, Nontender/Nondistended, No hepatosplenomegaly, no hernias or masses, no CVA tnderness Musculoskeletal: She has reduced mobility in both of her ankles and knees. There is some on kilos in the right ankle. No warmth or erythema. Right lower extremity with chronic swelling. Skin: Warm, Dry. 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's locker room attendant II-XII grossly intact, motor strenght 5/5 i upper and lower extremities, no clonus, patellar DTRs 2+ and sympetrical Psych: Awake, Alert, & Oriented (AAO) x3 Appropriate mood and affect - Labs CBC & Chem 7: 10/26/19 08:33 10/27/19 08:27 Labs: Abnormal Lab Results - Last 24 Hours (Table) 10/26/19 10/26/19 10/26/19 Range/Units 08:33 11:53 16:48 Carbon Dioxide 20 L (22-30) mmol/L BUN 77 H (7-17) mg/dL Creatinine 2.19 H (0.52-1.04) mg/dL Glucose 161 H (74-99) mg/dL POC Glucose (mg/dL) 193 H 152 H (75-99) mg/dL 10/26/19 10/27/19 10/27/19 Range/Units 20:43 01:54 06:41 Carbon Dioxide (22-30) mmol/L BUN (7-17) mg/dL Creatinine (0.52-1.04) mg/dL Glucose (74-99) mg/dL POC Glucose (mg/dL) 154 H 110 H 145 H (75-99) mg/dL 10/27/19 Range/Units 08:27 Carbon Dioxide 21 L (22-30) mmol/L BUN 79 H (7-17) mg/dL Creatinine 2.15 H (0.52-1.04) mg/dL Glucose 150 H (74-99) mg/dL POC Glucose (mg/dL) (75-99) mg/dL Microbiology - Last 24 Hours (Table) 10/26/19 11:15 Urine Culture - Preliminary Urine,Clean Catch Assessment and Plan Assessment: # Acute on chronic kidney injury CKD stage IVV Creatinine and BUN have improved and she reports good urine output as normal for her Discussed with nephrology, recommend diuresis and initiation of hemodialysis We will hold Eliquis Strict I's and O's Chest x-ray #Urinary tract infection Patient is nontoxic nonseptic appearing Urine analysis with significant pyuria, leukocyte esterase, RBCs, nitrates Previous urine cultures showed pansensitive E. coli and group B streptococcus Current urine cultures no growth to date Patient tolerated cephalosporins in the past, and most recently in August of last year. Keflex day#2/ # Generalized weakness and difficulties in ambulation No obvious focal deficits Peripheral neuropathy and severe osteoarthritis certainly contributing to difficulties in ambulation Flecainide level sent out and pending although her dosing is compatible with renal function TSH pending She'll work with physical therapy Plan to discharge to correction facility for physical therapy and close fol low-up of her labs and medications on outpatient basis #Paroxysmal atrial fibrillation Clinically patient appears to be in regular rhythm EKG showed paced rhythm Hold Eliquis since there is a flattened for dialysis access creation # Chronic anemia Hemoglobin stable Clinically no signs of bleeding Likely see kidney with a component of iron deficiency She received IV iron as ordered by nephrology She's currently receiving DODIE # Type 2 diabetes mellitus with peripheral neuropathy Last A1c 6.5 Continue present management # Difficulties in ambulation Physical occupational therapy to evaluate the patient Most likely will need placement in a transitional rehab #Chronic diastolic CHF Diuretics restarted Disposition: Plan is for discharge this patient to correction facility eventually. However she will need to start hemodialysis prior for other volume control and uremia control per nephrology recommendations.
[2019-10-27 12:23] LABS: Glucose,Whole Blood 158 mg/dL (75-99)
--- NOTE | 2019-10-27 12:52 | PN ---
PROGRESS NOTE Patient is seen for followup for chronic kidney disease and fluid overload. Yesterday, she received a dose of IV Lasix as she was quite volume overloaded. Patient states she is feeling slightly better but still significantly short of breath. She is also complaining of weakness and states that she has not been eating much. PHYSICAL EXAMINATION: On examination, blood pressure is 153/65, heart rate 61 per minute. She is afebrile. EXAMINATION OF THE HEART: S1 and S2. Examination of lower extremities shows edema 2+ bilaterally. Examination of the lungs shows decreased breath sounds bases. Occasional crackles are heard. ABDOMEN: Soft. Morbidly obese. QUALITATIVE RESEARCHER exam grossly intact. LABS: Labs show sodium 138, potassium 4.5, chloride 105, CO2 is 21, BUN 79, creatinine 2.1. ASSESSMENT: 1. Chronic kidney disease stage 4, with some improvement in renal function. However, patient is volume overloaded at this time. I will maintain her on IV Lasix. We will continue to hold off on the discharge. Her UA was also positive. She has been started on empiric antibiotics. Urine culture is still pending. 2. Generalized debility. The patient may need to start dialysis this admission. We had resumed the Eliquis as it looked like she could wait, but since she is volume overloaded and continues with end stage she does not feel well with continued fatigue. 3. Volume overload. PLAN: Maintain patient on IV Lasix. Hold Eliquis for now for possible insertion of PD catheter this admission. MMODL / IJN: [id number] /
--- NOTE | 2019-10-27 14:01 | XR ---
EXAMINATION TYPE: XR chest 2V DATE OF EXAM: 10/27/2019 COMPARISON: 10/22/2019 HISTORY: Shortness of breath TECHNIQUE: Frontal and lateral views of the chest are obtained. FINDINGS: Scattered senescent parenchymal changes noted. Hyperinflation compatible with COPD. No evidence for infiltrate. No evidence for atelectasis. Cardiomegaly with pulmonary venous congestion and small pleural effusions. Mediastinal structures are stable and grossly unremarkable. No evidence for hilar prominence. Degenerative changes dorsal spine. IMPRESSION: 1. Findings are felt to reflect mild congestive failure.
[2019-10-27 17:13] LABS: Glucose,Whole Blood 143 mg/dL (75-99)
[2019-10-27] MEDS: ATORVASTATIN 10 MG TAB PO SCH (21:14)
[2019-10-27] MEDS: MICONAZOLE NITRATE 4%/2% VAG CREAM KIT VAGINAL SCH (21:15)
[2019-10-27 21:51] LABS: Glucose,Whole Blood 133 mg/dL (75-99)
[2019-10-28] MEDS: LEVOTHYROXINE 100 MCG TAB PO SCH (05:55)
[2019-10-28 07:10] LABS: Glucose,Whole Blood 150 mg/dL (75-99)
[2019-10-28] MEDS: FUROSEMIDE 10 MG/ML 10 ML VIAL IV SCH ×2 (08:07→21:09)
[2019-10-28] MEDS: INSULIN ASPART (NovoLOG) 100 UNIT/ML VIAL SQ SCH ×4 (08:07→21:33)
[2019-10-28] MEDS: ALLOPURINOL 100 MG TAB PO SCH (08:08)
[2019-10-28] MEDS: CALCITRIOL 0.25 MCG CAP PO SCH (08:08)
[2019-10-28] MEDS: SODIUM BICARBONATE TAB 650 MG TAB PO SCH ×2 (08:08→21:09)
[2019-10-28] MEDS: PANTOPRAZOLE 40 MG TABLET PO SCH (08:08)
[2019-10-28] MEDS: FLECAINIDE 50 MG TAB PO SCH ×2 (08:08→21:26)
[2019-10-28] MEDS: ATENOLOL 50 MG TAB PO SCH ×2 (08:08→21:09)
[2019-10-28 09:00] LABS: Potassium 4.1 mmol/L (3.5-5.1)
[2019-10-28 09:04] LABS: HCT 32.1 % (34.0-46.0); HGB 10.1 gm/dL (11.4-16.0); Hypochromasia Slight; MCH 31.4 pg (25.0-35.0); MCHC 31.4 g/dL (31.0-37.0); MCV 100.2 fL (80.0-100.0); Macrocytosis Slight; Mean Platelet Volume 8.8; Platelet Count 173 k/uL (150-450); RBC 3.21 m/uL (3.80-5.40); RDW 14.5 % (11.5-15.5); WBC 6.3 k/uL (3.8-10.6)
--- NOTE | 2019-10-28 11:08 | CDI ---
Documentation Clarification Form Date: 10/28/2019 10:42:54 AM From: Nelly Nation RN CCDS Admit Date: 10/24/2019 01:11:00 PM Patient Name: Yamilet Lopez Visit Number: [id number] Discharge Date: ATTENTION: The Clinical Documentation Specialists (CDI) and [facility] Coding Staff appreciate your assistance in clarifying documentation. Please respond to the clarification below the line at the bottom and electronically sign. The CDI & [facility] Coding staff will review the response and follow-up if needed. Please note: Queries are made part of the Legal Health Record. If you have any questions, please contact the author of this message via ITS. Dr. Washington, Conflicting documentation has been found in the medical record. Chronic Kidney Disease Stage 4, Is documented in the Nephrology progress notes 10/25, 10/26, 10/27 CKD Stage IV - V is documented in Dr. Pulido's Progress notes 10/25, 10/26 & 10/27 History/Risk Factors: 83-year-old female presents to the ED fatigue and dyspnea sent in by Dr. Child who recommends dialysis. Severe fatigue, dyspnea and weight gain with history of chronic diastolic CHF Clinical Indicators: Per Nephrology Progress Note 10/27 Chronic kidney disease stage 4, with some improvement in renal function. However, patient is volume overloaded at this time. I will maintain her on I Lasix 10/22 BUN 101 CR 2.55 GFR 17 10/27 BUN 79 CR 2.15 GFR 20 Patients Baseline Per Nephrology Consult 10/23 - CR 2.3, GFR is 18 20 Treatment: 10/26 Lasix 60mg IV once 10/27 Lasix 60mg IV Q12 hrs Christopher 10/27 Hold Eliquis for possible insertion of PD catheter. In order to capture the severity of condition, please clarify if the condition signifies: * CKD Stage 4 (GFR 15-29) * CKD Stage 5 (GFR <15) * Other, please specify * Unable to determine stage 4 (Last Revision: November 2017) MTDD
[2019-10-28 11:36] LABS: Glucose,Whole Blood 166 mg/dL (75-99)
[2019-10-28] MEDS: ACETAMINOPHEN TAB 325 MG TAB PO PRN ×2 (12:39→21:11)
--- NOTE | 2019-10-28 12:57 | P.PN ---
Subjective Progress Note Date: 10/28/19 Principal diagnosis: Chronic kidney disease stage IV, shortness of breath Patient was seen and examined. No acute events overnight. Patient reports continuation of symptoms that is not improved. Patient states that she is not short of breath when she is at rest. She continues to complain of extreme fatigue and weakness. She denies any chest pain or palpitations. No fever or chills. Objective - Vital Signs Vital signs: Vital Signs Temp 97.4 F L 10/28/19 05:00 Pulse 65 10/28/19 05:00 Resp 20 10/28/19 05:00 BP 144/60 10/28/19 05:00 Pulse Ox 100 10/28/19 05:00 Intake & Output 10/27/19 10/28/19 10/28/19 18:59 06:59 18:59 Intake Total 50 Output Total 1000 1100 Balance -1000 -1100 50 Intake: IV 50 cefTRIAXone 1 gm In 50 Sodium Chloride 0.9% 50 ml @ 100 mls/hr IVPB Q24HR [facility] Rx#:[id number] Output: Urine 1000 1100 - Exam General: [non toxic], [no distress], [appears at stated age] Derm: [warm], [dry] Head: [atraumatic], [normocephalic], [symmetric] Eyes: [EOMI], [no lid lag], [anicteric sclera] Mouth: [no lip lesion], [mucus membranes moist] Cardiovascular: [S1S2 reg], [no murmur], [positive DP pulse bilateral], Lungs: [Decreased breath sounds bilateral], [no rhonchi, no rales] , [no accessory muscle use] Abdominal: [soft], [ nontender to palpation], [no guarding], [no appreciable organomegaly] Ext: [no gross muscle atrophy], [1+ pitting bilateral lower extremity edema], [no contractures], [right upper extremity fistula without thrill] Neuro: [no focal neuro deficits] Psych: [Alert], [oriented], [appropriate affect] - Labs CBC & Chem 7: 10/28/19 08:26 10/28/19 08:26 Labs: Abnormal Lab Results - Last 24 Hours (Table) 10/27/19 10/27/19 10/28/19 Range/Units 17:11 21:31 07:08 RBC (3.80-5.40) m/uL Hgb (11.4-16.0) gm/dL Hct (34.0-46.0) % MCV (80.0-100.0) fL BUN (7-17) mg/dL Creatinine (0.52-1.04) mg/dL Glucose (74-99) mg/dL POC Glucose (mg/dL) 143 H 133 H 150 H (75-99) mg/dL 10/28/19 10/28/19 10/28/19 Range/Units 08:26 08:26 11:35 RBC 3.21 L (3.80-5.40) m/uL Hgb 10.1 L (11.4-16.0) gm/dL Hct 32.1 L (34.0-46.0) % MCV 100.2 H (80.0-100.0) fL BUN 82 H (7-17) mg/dL Creatinine 2.35 H (0.52-1.04) mg/dL Glucose 190 H (74-99) mg/dL POC Glucose (mg/dL) 166 H (75-99) mg/dL Microbiology - Last 24 Hours (Table) 10/26/19 11:15 Urine Culture - Final Urine,Clean Catch Escherichia coli Assessment and Plan Assessment: Stage IV CKD pending initiation of dialysis Diabetes mellitus with hyperglycemia Abnormal urinalysis Anemia Atrial fibrillation on anticoagulation Hypertension CAD Sleep apnea Hypothyroidism BUN 679-08-74-82 creatinine 2.55-2.34-2.34-2.35 GFR 17-18-18-18. Patient is admitted for initiation of dialysis due to her symptoms of extreme fatigue and dyspnea. Plans: Daily BMP. Avoid nephrotoxins. Continue calcitriol. Continue sodium bicarbonate supplementation. Consult nephrology. Patient scheduled for catheter placement with possible dialysis, will discuss with Dr. Child if necessary. There are plans to repeat BMP tomorrow morning. [id number]-[id number] glucose 166. Plans: Insulin sliding-scale. Regular Accu-Cheks. Hyperglycemia precautions. Urinalysis shows leukocyte esterase positive. Patient is asymptomatic. Plans: Nothing further to do. Hemolytic 9.7-9.5-10.1. Normocytic. Likely due to chronic kidney disease. Plans: Transfuse if hemoglobin less than 7. Plans: Continue atenolol. Continue flecainide. Stop Eliquis for plans to obtain dialysis access on Friday. BP 144/60. Plans: Continue beta henok. Continue Aldactone. Monitor vitals, adjust medications as necessary. Plans: Eliquis on hold for planned procedure. Continue Lipitor. Continue beta henok. Plans: CPAP at nighttime. Plans: Continue Synthroid. [Patient admitted for chronic kidney disease stage IV and initiation of dialysis for symptoms. Will discuss with Dr. Child need for dialysis. Likely DC in 1-2 days.]
--- NOTE | 2019-10-28 15:27 | P.DS ---
Providers Date of admission: 10/24/19 13:11 Expected date of discharge: 10/28/19 Attending physician: Raimundo Araiza MD Consults: 10/22/19 13:59 Consult Physician Urgent Consulting Provider: Sofia Child Consult Reason/Comments: renal failure Do you want consulting provider notified?: Yes 10/22/19 14:26 Consult Physician Urgent Consulting Provider: Erik Argueta Consult Reason/Comments: Renal failure Do you want consulting provider notified?: Already Contacted Primary care physician: [facility] Course: 83-year-old female with PMH of atrial fibrillation, diabetes mellitus, hypertension, CAD, chronic kidney disease, sleep apnea on CPAP, hypothyroidism presents the ED after being sent from Dr. Child's clinic. Patient has been progressively feeling short of breath along with fatigue over the past week. Patient states she is usually very active. Patient reports her kidney function is progressively been getting worse and she recently underwent a right upper extremity fistula on July 14 at [facility]. She denies any headaches, fever or chills, chest pain, palpitations or changes in bowel habits. She does report some lower extremity swelling. She reports some nausea but denies any vomiting. Patient reports a dry cough that is associated with her shortness of breath. Patient states over the last couple of days she has been unable to produce much urine. She reports a decreased appetite. She denies any dizziness, numbness/weakness/tingling. In the ED, her vital signs are stable. CBC showed hemoglobin of 10.5. Coagulation panel was negative. CMP showed BUN of 101 and creatinine of 2.55. Troponin was less than 0.012, EKG showing atrial pacemaker rhythm with left axis deviation. BNP was 12,800, chest x-ray showing atelectatic changes. Urinalysis showed small leukocyte esterase. Patient is admitted for end-stage renal disease and initiation of dialysis. Vascular surgery and nephrology has been consulted. Patient's BUN trended down from 101-82 at discharge. Creatinine trended down from 2.55-2.35 at discharge. Nephrology and vascular surgery was initially consulted to initiate dialysis but decision was made to hold off until later time. She was continued on calcitriol, sodium bicarb. Patient had a urinalysis positive for ESBL. She was initially on Rocephin which was transitioned to Zosyn and finally nitrofurantoin for discharge. Stage IV CKD pending initiation of dialysis Diabetes mellitus with hyperglycemia Abnormal urinalysis Anemia Atrial fibrillation on anticoagulation Hypertension CAD Hypothyroidism BUN 122-36-71-82 creatinine 2.55-2.34-2.34-2.35 GFR 17-18-18-18. Patient is admitted for initiation of dialysis due to her symptoms of extreme fatigue and dyspnea. Plans: Daily BMP. Avoid nephrotoxins. Continue calcitriol. Continue sodium bicarbonate supplementation. Consult nephrology. Patient scheduled for catheter placement with possible dialysis, will discuss with Dr. Child if necessary. There are plans to repeat BMP tomorrow morning. [id number] glucose 166. Plans: Insulin sliding-scale. Regular Accu-Cheks. Hyperglycemia precautions. Urinalysis shows leukocyte esterase positive. Urine culture positive ESBL. Patient is asymptomatic. Plans: Zosyn and transitioned nitrofurantoin on discharge. Hemolytic 9.7-9.5-10.1. Normocytic. Likely due to chronic kidney disease. Plans: Transfuse if hemoglobin less than 7. Plans: Continue atenolol. Continue flecainide. Stop Eliquis for plans to obtain dialysis access on Friday. BP 144/60. Plans: Continue beta henok. Continue Aldactone. Monitor vitals, adjust medications as necessary. Plans: Eliquis on hold for planned procedure. Continue Lipitor. Continue beta henok. Plans: Continue Synthroid. [Patient admitted for chronic kidney disease stage IV and initiation of dialysis for symptoms. Will discuss with Dr. Child need for dialysis. Likely DC in 1-2 days.] Pertinent Studies: Chest x-ray Patient Condition at Discharge: Stable Plan - Discharge Summary Discharge Rx Participant: No New Discharge Prescriptions: New Miconazole Nitrate 4%/2% [Monistat 3 Vaginal] 1 each VAGINAL HS 3 Days #1 kit INSULIN ASPART (NovoLOG) [NovoLOG (formulary)] 0 unit SQ ACHS vial Nitrofurantoin Macrocrystal [Macrodantin] 100 mg PO BID-W/MEALS #14 cap Continue Levothyroxine Sodium [Synthroid] 100 mcg PO DAILY Flecainide [Tambocor] 50 mg PO BID Apixaban [Eliquis] 2.5 mg PO BID Multivitamins, Thera [Multivitamin (formulary)] 1 tab PO DAILY Simvastatin [Zocor] 20 mg PO HS #90 tab Calcitriol [Rocaltrol] 0.25 mcg PO MOTUWETHFR Allopurinol [Zyloprim] 100 mg PO DAILY Atenolol [Tenormin] 50 mg PO BID Sodium Bicarbonate Tab 650 mg PO BID #60 tab Acetaminophen [Tylenol] 1,000 mg PO Q8H PRN PRN Reason: Pain Or Fever > 100.5 Cholecalciferol (Vitamin D3) [Vitamin D3] 4,000 unit PO DAILY Pantoprazole [Protonix] 40 mg PO DAILY Changed Torsemide [Demadex] 20 mg PO DAILY@1400 #0 Discontinued Glimepiride [Amaryl] 1 mg PO AC-BID Spironolactone [Aldactone] 12.5 mg PO DAILY Torsemide [Demadex] 20 mg PO DAILY tab Discharge Medication List Levothyroxine Sodium [Synthroid] 100 mcg PO DAILY 01/31/14 [History] Apixaban [Eliquis] 2.5 mg PO BID 10/12/16 [History] Flecainide [Tambocor] 50 mg PO BID 10/12/16 [History] Multivitamins, Thera [Multivitamin (formulary)] 1 tab PO DAILY 12/10/16 [History] Simvastatin [Zocor] 20 mg PO HS #90 tab 12/13/16 [Rx] Allopurinol [Zyloprim] 100 mg PO DAILY 01/18/17 [History] Calcitriol [Rocaltrol] 0.25 mcg PO MOTUWETHFR 01/18/17 [History] Atenolol [Tenormin] 50 mg PO BID 10/10/17 [History] Sodium Bicarbonate Tab 650 mg PO BID #60 tab 02/22/18 [Rx] Acetaminophen [Tylenol] 1,000 mg PO Q8H PRN 05/22/18 [History] Cholecalciferol (Vitamin D3) [Vitamin D3] 4,000 unit PO DAILY 05/26/19 [History] Pantoprazole [Protonix] 40 mg PO DAILY 08/16/19 [History] INSULIN ASPART (NovoLOG) [NovoLOG (formulary)] 0 unit SQ ACHS vial 10/26/19 [Rx] Miconazole Nitrate 4%/2% [Monistat 3 Vaginal] 1 each VAGINAL HS 3 Days #1 kit 10/26/19 [Rx] Nitrofurantoin Macrocrystal [Macrodantin] 100 mg PO BID-W/MEALS #14 cap 10/28/19 [Rx] Torsemide [Demadex] 20 mg PO DAILY@1400 #0 10/28/19 [Rx] Follow up Appointment(s)/Referral(s): Phil Blood MD [Primary Care Provider] - 1-2 days Sofia Child MD [STAFF PHYSICIAN] - 1 Week Erik Argueta MD [STAFF PHYSICIAN] - 10/27/19 (patient needs appointment on friday) Ambulatory/Diagnostic Orders: Basic Metabolic Panel [LAB.AMB] Time Frame: 1 Week, Location: None Selected Complete Blood Count w/diff [LAB.AMB] Location: None Selected Patient Instructions/Handouts: Chronic Kidney Disease (DC) Activity/Diet/Wound Care/Special Instructions: Diabetic diet Activity ad kaylyn with limitations as per PT Fall precautions Discharge Disposition: TRANSFER TO SNF/ECF
[2019-10-28] MEDS: PIPERACILLIN-TAZOBACTAM 3.375 GM in SODIUM CHLORIDE 0.9% 100 ML IVPB SCH (15:49)
[2019-10-28 17:02] LABS: Glucose,Whole Blood 140 mg/dL (75-99)
[2019-10-28] MEDS: ATORVASTATIN 10 MG TAB PO SCH (21:09)
[2019-10-28] MEDS: MICONAZOLE NITRATE 4%/2% VAG CREAM KIT VAGINAL SCH (21:20)
[2019-10-28 21:26] LABS: Glucose,Whole Blood 210 mg/dL (75-99)
--- NOTE | 2019-10-28 23:02 | PN ---
PROGRESS NOTE Patient is seen for followup for CKD. She has developed volume overload. Patient was started on IV Lasix 2 days ago. Her volume status has somewhat improved. She states she is breathing better and feeling better. However, patient remains quite weak. Serum creatinine is at about 2.3 mg/dL with estimated GFR at 18 mL/minute. However, this is with ongoing volume overload. I have discussed renal replacement therapy again with the patient and we will proceed with PermCath placement and start her on dialysis this admission, as patient will likely have repeated admissions for volume overload, generalized debility and overall feeling poor. PHYSICAL EXAMINATION: On examination, blood pressure was 146/55, heart rate 62 per minute. She is afebrile. EXAMINATION OF THE HEART: S1 and S2. EXAMINATION OF LUNGS: Bilateral breath sounds are heard. ABDOMEN: Soft, non-tender. Examination of lower extremities shows edema 1+ bilaterally. CONTROL PANEL ASSEMBLER exam is grossly intact. LABS: Sodium 139, potassium 4.1, chloride 105. CO2 is 23. BUN 82, creatinine 2.35, hemoglobin 10.1 g/dL. ASSESSMENT: 1. Chronic kidney disease, stage IV to IV. Start renal replacement therapy this admission. Ramon has been on hold. Will proceed with catheter placement in a.m. 2. Volume overload, now improved. 3. Chronic kidney disease mineral bone disorder, maintained on calcitriol. 4. Anemia of chronic disease, currently on Aranesp. 5. Metabolic acidosis, on sodium bicarb. 6. Urinary tract infection. Urine culture is growing Escherichia coli. Patient is maintained on antibiotics. PLAN: Proceed with dialysis catheter placement in a.m. and we will plan for first treatment tomorrow. MMODL / IJN: [id number] /
[2019-10-29 03:10] LABS: Hepatitis B Surface AB- Quant 3.5 mIU/mL; Hepatitis B Surface Antibody Non-Reactive (Non-Reactive); Hepatitis B Surface Antigen Non-Reactive (Non-Reactive)
[2019-10-29] MEDS: PIPERACILLIN-TAZOBACTAM 3.375 GM in SODIUM CHLORIDE 0.9% 100 ML IVPB SCH ×2 (03:40→16:32)
[2019-10-29] MEDS: LEVOTHYROXINE 100 MCG TAB PO SCH (05:45)
[2019-10-29 06:16] LABS: Magnesium 1.9 mg/dL (1.6-2.3); Potassium 4.1 mmol/L (3.5-5.1)
[2019-10-29 07:13] LABS: Glucose,Whole Blood 132 mg/dL (75-99)
[2019-10-29] MEDS: INSULIN ASPART (NovoLOG) 100 UNIT/ML VIAL SQ SCH ×4 (07:28→21:25)
[2019-10-29] MEDS: FUROSEMIDE 10 MG/ML 10 ML VIAL IV SCH ×2 (07:32→20:34)
[2019-10-29] MEDS: ALLOPURINOL 100 MG TAB PO SCH (08:38)
[2019-10-29] MEDS: PANTOPRAZOLE 40 MG TABLET PO SCH (08:38)
[2019-10-29] MEDS: SODIUM BICARBONATE TAB 650 MG TAB PO SCH ×2 (08:38→21:25)
[2019-10-29] MEDS: FLECAINIDE 50 MG TAB PO SCH ×2 (08:39→21:25)
[2019-10-29] MEDS: ATENOLOL 50 MG TAB PO SCH ×2 (08:39→21:25)
[2019-10-29] MEDS: ACETAMINOPHEN TAB 325 MG TAB PO PRN (08:39)
[2019-10-29] MEDS: CALCITRIOL 0.25 MCG CAP PO SCH (08:39)
[2019-10-29 11:38] LABS: Glucose,Whole Blood 150 mg/dL (75-99)
[2019-10-29 13:47] VITALS: BMI 35.0
[2019-10-29] MEDS ORDERED: IV FLUID CONTINUATION 250 ML IV ONE (14:00)
[2019-10-29] MEDS: MIDAZOLAM 2 MG/2 ML VIAL IV ONE ×2 (14:10→14:27)
[2019-10-29] MEDS: LIDOCAINE 1% INJ 10MG/ML (20 ML MDV) SQ ONE ×2 (14:11→14:24)
[2019-10-29] MEDS ORDERED: LIDOCAINE 1% INJ 10MG/ML (20 ML MDV) SQ ONE (14:29)
[2019-10-29] MEDS ORDERED: fentaNYL (PF) 50 MCG/ML 2 ML AMP IV ONE (14:34)
[2019-10-29] MEDS ORDERED: HEPARIN SODIUM 1,000 UN/ML (10ML VL) MISCELLANE ONE (14:49)
--- NOTE | 2019-10-29 15:35 | XR ---
EXAMINATION TYPE: XR chest 1V portable DATE OF EXAM: 10/29/2019 COMPARISON: NONE HISTORY: Permacath placement TECHNIQUE: Single frontal view of the chest is obtained. FINDINGS: Large bore dual-lumen right-sided dialysis catheter has been placed terminating in the dist al superior vena cava right above the cavoatrial junction. There is no focal air space opacity, pulmo nary vascular congestion, or pneumothorax seen. And trace left pleural effusion blunts the costophren ic angle. This is unchanged from the prior. The cardiac silhouette size is is enlarged with multilea d left-sided cardiac device. The osseous structures are intact. IMPRESSION: Right-sided hemodialysis catheter placement terminating in the distal superior vena cava without postprocedural pneumothorax. Stable trace left pleural effusion.
--- NOTE | 2019-10-29 16:04 | P.PN ---
Subjective Progress Note Date: 10/29/19 Principal diagnosis: Chronic kidney disease stage IV, shortness of breath Patient was seen and examined. No acute events overnight. Patient reports continuation of symptoms that is not improved. Patient reports no changes in her condition. She continues to complain of extreme fatigue and weakness. She denies any chest pain or palpitations. No fever or chills. Objective - Vital Signs Vital signs: Vital Signs Temp 98.2 F 10/29/19 12:36 Pulse 60 10/29/19 12:36 Resp 18 10/29/19 12:36 BP 155/61 10/29/19 12:36 Pulse Ox 95 10/29/19 10:13 Intake & Output 10/28/19 10/29/19 10/29/19 18:59 06:59 18:59 Intake Total 590 50 Output Total 900 1350 1300 Balance -310 -1350 -1250 Weight 98.5 kg 98.5 kg Intake: IV 50 50 cefTRIAXone 1 gm In 50 Sodium Chloride 0.9% 50 ml @ 100 mls/hr IVPB Q24HR [facility], [facility]–1983 Rx#:[id number] Oral 540 Output: Urine 900 1350 1300 Other: Voiding Method Toilet Toilet # Voids 1 # Bowel Movements 1 - Exam General: [non toxic], [no distress], [appears at stated age] Derm: [warm], [dry] Head: [atraumatic], [normocephalic], [symmetric] Eyes: [EOMI], [no lid lag], [anicteric sclera] Mouth: [no lip lesion], [mucus membranes moist] Cardiovascular: [S1S2 reg], [no murmur], [positive DP pulse bilateral], Lungs: [Decreased breath sounds bilateral], [no rhonchi, no rales] , [no accessory muscle use] Abdominal: [soft], [ nontender to palpation], [no guarding], [no appreciable organomegaly] Ext: [no gross muscle atrophy], [1+ pitting bilateral lower extremity edema], [no contractures], [right upper extremity fistula without thrill] Neuro: [no focal neuro deficits] Psych: [Alert], [oriented], [appropriate affect] - Labs CBC & Chem 7: 10/28/19 08:26 10/29/19 05:32 Labs: Abnormal Lab Results - Last 24 Hours (Table) 10/28/19 10/28/19 10/29/19 Range/Units 17:00 21:21 05:32 BUN 88 H (7-17) mg/dL Creatinine 2.60 H (0.52-1.04) mg/dL Glucose 138 H (74-99) mg/dL POC Glucose (mg/dL) 140 H 210 H (75-99) mg/dL 10/29/19 10/29/19 Range/Units 07:11 11:37 BUN (7-17) mg/dL Creatinine (0.52-1.04) mg/dL Glucose (74-99) mg/dL POC Glucose (mg/dL) 132 H 150 H (75-99) mg/dL Assessment and Plan Assessment: Stage IV CKD pending initiation of dialysis Diabetes mellitus with hyperglycemia ESBL UTI Anemia Atrial fibrillation on anticoagulation Hypertension CAD Hypothyroidism BUN [id number] creatinine 2.55-2.34-2.34-2.35-2.6 GFR 18-06-96-18-16. Patient is admitted for initiation of dialysis due to her symptoms of extreme fatigue and dyspnea. Plans: Daily BMP. Avoid nephrotoxins. Continue calcitriol. Continue sodium bicarbonate supplementation. Consult nephrology. Patient scheduled for catheter placement with dialysis today. There are plans to repeat BMP tomorrow morning. [id number] glucose 150. Plans: Insulin sliding-scale. Regular Accu-Cheks. Hyperglycemia precautions. Urinalysis shows leukocyte esterase positive. Urine culture positive ESBL. Patient is asymptomatic. Plans: Zosyn and transitioned nitrofurantoin on discharge. Hemolytic 9.7-9.5-10.1. Normocytic. Likely due to chronic kidney disease. Plans: Transfuse if hemoglobin less than 7. Plans: Continue atenolol. Continue flecainide. Stop Eliquis for plans to obtain dialysis access on Friday. BP 155/61. Plans: Continue beta henok. Continue Aldactone. Monitor vitals, adjust medications as necessary. Plans: Eliquis on hold for planned procedure. Continue Lipitor. Continue beta henok. Plans: Continue Synthroid. [Patient admitted for chronic kidney disease stage IV and initiation of dialysis for symptoms. Hemodialysis catheter today with first dialysis session. She is pending clinical improvement. Likely DC in 1-2 days.]
--- NOTE | 2019-10-29 16:45 | PN ---
PROGRESS NOTE Patient is seen for followup for CKD, stage IV to V. Patient was admitted to the hospital initially with feeling poorly, increased fatigue and weakness with the possibility of starting dialysis. However, patient's symptoms had improved until she felt she had a UTI and urine culture was positive. In the meantime, patient also developed volume overload and was started on IV Lasix. She continued to feel poorly and therefore it was decided to proceed with initiation of renal replacement therapy, as over the past few months as outpatient patient has been progressively declining with repeated admissions for CHF as well. Patient is scheduled for PermCath placement today and she will have her first treatment of hemodialysis today. She does have an AV fistula, which needs further intervention and is not yet ready for use, and she will follow up with Dr. Argueta as outpatient. PHYSICAL EXAMINATION: On examination, blood pressure this morning 155/61, heart rate 60 per minute. Patient is afebrile. EXAMINATION OF THE HEART: S1 and S2. EXAMINATION OF LUNGS: Decreased breath sounds at bases. ABDOMEN: Soft, non-tender. Examination of lower extremities shows edema 2+ bilaterally. LABS: Labs show sodium 139, potassium 4.1, chloride 105, BUN 88, serum creatinine 2.6. GFR is at 16. ASSESSMENT: 1. Chronic kidney disease, stage V, with repeated episodes of congestive heart failure, volume overload and overall decline over the past few months. Patient has been started on dialysis. She will have her first treatment today. She will be placed at the [facility], as she states that she wants to come to the [facility] unit which is about [address] [place]. 2. Volume overload, now improved. 3. Urinary tract infection with Escherichia coli, maintained on antibiotics. 4. Chronic kidney disease mineral bone disorder, maintained on calcitriol. 5. Anemia of chronic disease, currently on Aranesp. PLAN: Continue with IV Lasix for now. Switch to p.o. Lasix in a.m. Patient will be dialyzed again tomorrow and she can be discharged most likely on Friday. MMODL / IJN: [id number] /
--- NOTE | 2019-10-29 16:47 | IR ---
EXAMINATION TYPE: IR cvc insert central tunneled DATE OF EXAM: 10/29/2019 CLINICAL HISTORY: Renal failure. TECHNIQUE: Fluoroscopy. COMPARISON: None. FINDINGS: Fluoroscopic guidance was provided during tunneled catheter insertion procedure performed by Dr. Argueta. A total of 2.6 minutes of fluoroscopic time was utilized during the procedure and fo ur cine runs are saved to PACS. Images acquired show placement of large bore right internal jugular d ual lumen dialysis catheter. IMPRESSION: As Above.
[2019-10-29 17:13] LABS: Glucose,Whole Blood 160 mg/dL (75-99)
--- NOTE | 2019-10-29 17:48 | OP ---
OPERATIVE REPORT PREOPERATIVE DIAGNOSIS: 1. Acute on chronic renal failure. PROCEDURE: 1. Fistulogram, cephalobrachial fistula. 2. Ultrasound-guided 19 cm dialysis catheter placement in right-sided jugular approach. SEDATION TIME: 40 minutes. PROCEDURE DESCRIPTION: This patient has a history of chronic renal failure. Patient had a basilic brachial fistula placed in the past. The patient was admitted for medical issues. Patient will be needing transposition of basilic vein. The patient needs urgent dialysis catheter. We brought the patient to the lab director. Right arm and chest was prepped. Drapes were applied in a sterile manner and 1% lidocaine plain was instilled in the cubital fossa. Micropuncture was introduced to the basilic vein and micropuncture guidewire was passed. A 4-Guatem[place] dilator was advanced on top of the guidewire. Then with hand injection fistulogram was performed. The basilic vein was found to be patent. Axillary vein was found to be patent. Subclavian and the superior vena cava were visualized and were patent. After that we infiltrated 1% lidocaine in the neck and chest area. Ultrasound-guided micropuncture was introduced to the right internal jugular vein. After that we passed a 4-[place] dilator and then we passed a guidewire under fluoroscopic control. The guidewire was parked at the inferior vena cava. After that the tunnel was created. Through the tunnel we brought a 90 cm dialysis catheter. Dilator was advanced on top of the guidewire. Then sheath was advanced on top of the guidewire. Through the sheath we introduced the dialysis catheter. Tip of the catheter was in superior vena cava and atrial junction. Flushed with heparin, saline and hep- locked, secured with 3-0 nylon. Patient tolerated the procedure well. Sedation time was 40 minutes. Dressing applied. Patient tolerated the procedure well. MMODL / IJN: [id number] /
[2019-10-29 21:05] LABS: Glucose,Whole Blood 142 mg/dL (75-99)
[2019-10-29] MEDS: ATORVASTATIN 10 MG TAB PO SCH (21:25)
[2019-10-30] MEDS: PIPERACILLIN-TAZOBACTAM 3.375 GM in SODIUM CHLORIDE 0.9% 100 ML IVPB SCH ×2 (04:10→15:28)
[2019-10-30] MEDS: LEVOTHYROXINE 100 MCG TAB PO SCH (05:54)
[2019-10-30 07:06] LABS: Glucose,Whole Blood 118 mg/dL (75-99)
[2019-10-30] MEDS: INSULIN ASPART (NovoLOG) 100 UNIT/ML VIAL SQ SCH ×4 (07:16→21:02)
[2019-10-30] MEDS: ALLOPURINOL 100 MG TAB PO SCH (08:00)
--- NOTE | 2019-10-30 08:14 | P.PN ---
Subjective Progress Note Date: 10/30/19 Principal diagnosis: Chronic kidney disease stage IV, shortness of breath Patient was seen and examined. No acute events overnight. Right internal jugular catheter placed for dialysis. Last session was yesterday. Currently undergoing a session today. Patient reports that she feels better than the last couple of days. She denies any chest pain or palpitations. No fever or chills. Objective - Vital Signs Vital signs: Vital Signs Temp 97.1 F L 10/30/19 04:17 Pulse 61 10/30/19 04:17 Resp 16 10/30/19 04:17 BP 142/59 10/30/19 04:17 Pulse Ox 97 10/30/19 04:17 Intake & Output 10/29/19 10/30/19 10/30/19 18:59 06:59 18:59 Intake Total 270 Output Total 1300 1300 Balance -1030 -1300 Weight 98.5 kg 94 kg Intake: IV 50 Oral 220 Output: Urine 1300 800 Hemodialysis 500 Other: Voiding Method Toilet Toilet # Voids 1 # Bowel Movements 1 - Exam General: [non toxic], [no distress], [appears at stated age] Derm: [warm], [dry] Head: [atraumatic], [normocephalic], [symmetric] Eyes: [EOMI], [no lid lag], [anicteric sclera] Mouth: [no lip lesion], [mucus membranes moist] Cardiovascular: [S1S2 reg], [no murmur], [positive DP pulse bilateral], Lungs: [Decreased breath sounds bilateral], [no rhonchi, no rales] , [no accessory muscle use] Abdominal: [soft], [ nontender to palpation], [no guarding], [no appreciable organomegaly] Ext: [no gross muscle atrophy], [1+ pitting bilateral lower extremity edema], [no contractures], [right upper extremity fistula without thrill] Neuro: [no focal neuro deficits] Psych: [Alert], [oriented], [appropriate affect] - Labs CBC & Chem 7: 10/28/19 08:26 10/29/19 05:32 Labs: Abnormal Lab Results - Last 24 Hours (Table) 10/29/19 10/29/19 10/29/19 Range/Units 11:37 17:11 21:04 POC Glucose (mg/dL) 150 H 160 H 142 H (75-99) mg/dL 10/30/19 Range/Units 07:04 POC Glucose (mg/dL) 118 H (75-99) mg/dL Assessment and Plan Assessment: Stage IV CKD pending initiation of dialysis Diabetes mellitus with hyperglycemia ESBL UTI Anemia Atrial fibrillation on anticoagulation Hypertension CAD Hypothyroidism BUN [id number] creatinine 2.55-2.34-2.34-2.35-2.6 GFR 97-91-84-18-16. Patient is admitted for initiation of dialysis due to her symptoms of extreme fatigue and dyspnea. Plans: Daily BMP. Avoid nephrotoxins. Continue calcitriol. Continue sodium bicarbonate supplementation. Consult nephrology. Patient scheduled for dialysis today and Friday. There are plans to repeat BMP today. [id number] glucose 118. Plans: Insulin sliding-scale. Regular Accu-Cheks. Hyperglycemia precautions. Urinalysis shows leukocyte esterase positive. Urine culture positive ESBL. Patient is asymptomatic. Plans: Zosyn and transitioned nitrofurantoin on discharge. Hemolytic 9.7-9.5-10.1. Normocytic. Likely due to chronic kidney disease. Plans: Transfuse if hemoglobin less than 7. Plans: Continue atenolol. Continue flecainide. Restart Eliquis tonight. BP 142/59. Plans: Continue beta henok. Continue Aldactone. Monitor vitals, adjust medications as necessary. Plans: Restart Eliquis tonight. Continue Lipitor. Continue beta henok. Plans: Continue Synthroid. [Patient admitted for chronic kidney disease stage IV and initiation of dialysis for symptoms. Dialysis planned for today and Friday.]
[2019-10-30 09:12] LABS: Calcium 8.6 mg/dL (8.4-10.2); Potassium 3.9 mmol/L (3.5-5.1)
[2019-10-30 11:55] LABS: Glucose,Whole Blood 164 mg/dL (75-99)
[2019-10-30] MEDS: FUROSEMIDE 10 MG/ML 10 ML VIAL IV SCH ×2 (12:29→23:06)
[2019-10-30] MEDS: DARBEPOETIN ALFA 40 MCG/0.4 ML SYRINGE SQ SCH (12:29)
[2019-10-30] MEDS: PANTOPRAZOLE 40 MG TABLET PO SCH (12:31)
[2019-10-30] MEDS: FLECAINIDE 50 MG TAB PO SCH ×2 (12:31→21:01)
[2019-10-30] MEDS: SODIUM BICARBONATE TAB 650 MG TAB PO SCH ×2 (12:31→21:01)
[2019-10-30] MEDS: ATENOLOL 50 MG TAB PO SCH ×2 (12:31→21:01)
[2019-10-30] MEDS: APIXABAN 2.5 MG TABLET PO SCH ×2 (12:34→21:01)
--- NOTE | 2019-10-30 14:01 | P.PN ---
Subjective Progress Note Date: 10/30/19 ESRD on dialysis. Had treatment this morning. Objective - Vital Signs Vital signs: Vital Signs Temp 98.2 F 10/30/19 12:10 Pulse 60 10/30/19 12:10 Resp 16 10/30/19 12:10 BP 122/61 10/30/19 12:10 Pulse Ox 97 10/30/19 04:17 Intake & Output 10/29/19 10/30/19 10/30/19 18:59 06:59 18:59 Intake Total 270 Output Total 1300 1300 1000 Balance -1030 -1300 -1000 Weight 98.5 kg 94 kg Intake: IV 50 Oral 220 Output: Urine 1300 800 Hemodialysis 500 1000 Other: Voiding Method Toilet Toilet Toilet # Voids 1 # Bowel Movements 1 - Exam No acute distress S1-S2 heard Lungs clear Right jugular permacath No edema - Labs CBC & Chem 7: 10/28/19 08:26 10/30/19 08:48 Labs: Abnormal Lab Results - Last 24 Hours (Table) 10/29/19 10/29/19 10/30/19 Range/Units 17:11 21:04 07:04 Sodium (137-145) mmol/L BUN (7-17) mg/dL Creatinine (0.52-1.04) mg/dL Glucose (74-99) mg/dL POC Glucose (mg/dL) 160 H 142 H 118 H (75-99) mg/dL 10/30/19 10/30/19 Range/Units 08:48 11:53 Sodium 136 L (137-145) mmol/L BUN 52 H (7-17) mg/dL Creatinine 2.01 H (0.52-1.04) mg/dL Glucose 195 H (74-99) mg/dL POC Glucose (mg/dL) 164 H (75-99) mg/dL Assessment and Plan Assessment: #1 ESRD secondary to cardiorenal syndrome on dialysis. Started on 10/29/2019 #2 volume overload improved with dialysis #3 E. coli UTI #4 metabolic bone disease with ESRD #5 anemia with ESRD #6 diastolic CHF Plan: #1 continue with diuretics. Change to by mouth at discharge #2 next treatment on Friday and possible discharge to an outpatient dialysis f acility.
[2019-10-30 17:31] LABS: Glucose,Whole Blood 170 mg/dL (75-99)
[2019-10-30 20:38] LABS: Glucose,Whole Blood 229 mg/dL (75-99)
[2019-10-30] MEDS: ATORVASTATIN 10 MG TAB PO SCH (21:01)
[2019-10-31] MEDS: PIPERACILLIN-TAZOBACTAM 3.375 GM in SODIUM CHLORIDE 0.9% 100 ML IVPB SCH ×2 (03:46→16:44)
[2019-10-31] MEDS: LEVOTHYROXINE 100 MCG TAB PO SCH (05:47)
[2019-10-31 07:17] LABS: Glucose,Whole Blood 128 mg/dL (75-99)
[2019-10-31] MEDS: PANTOPRAZOLE 40 MG TABLET PO SCH (08:33)
[2019-10-31] MEDS: ATENOLOL 50 MG TAB PO SCH ×2 (08:33→21:36)
[2019-10-31] MEDS: FUROSEMIDE 10 MG/ML 10 ML VIAL IV SCH ×2 (08:33→21:37)
[2019-10-31] MEDS: APIXABAN 2.5 MG TABLET PO SCH ×2 (08:33→21:36)
[2019-10-31] MEDS: ALLOPURINOL 100 MG TAB PO SCH (08:33)
[2019-10-31] MEDS: SODIUM BICARBONATE TAB 650 MG TAB PO SCH (08:33)
[2019-10-31] MEDS: FLECAINIDE 50 MG TAB PO SCH ×2 (08:34→21:37)
[2019-10-31] MEDS: INSULIN ASPART (NovoLOG) 100 UNIT/ML VIAL SQ SCH ×4 (08:37→21:37)
--- NOTE | 2019-10-31 11:22 | P.PN ---
Subjective Progress Note Date: 10/31/19 ESRD on dialysis. Objective - Vital Signs Vital signs: Vital Signs Temp 97.0 F L 10/31/19 05:15 Pulse 62 10/31/19 05:15 Resp 18 10/31/19 05:15 BP 127/60 10/31/19 05:15 Pulse Ox 94 L 10/31/19 05:15 Intake & Output 10/30/19 10/31/19 10/31/19 18:59 06:59 18:59 Intake Total 750 50 240 Output Total 1000 Balance -250 50 240 Intake: Oral 750 50 240 Output: Hemodialysis 1000 Other: Voiding Method Toilet Toilet # Voids 2 1 # Bowel Movements 2 2 3 - Exam No acute distress S1-S2 heard Lungs clear Right jugular permacath No edema - Labs CBC & Chem 7: 10/28/19 08:26 10/30/19 08:48 Labs: Abnormal Lab Results - Last 24 Hours (Table) 10/30/19 10/30/19 10/30/19 Range/Units 11:53 17:23 20:33 POC Glucose (mg/dL) 164 H 170 H 229 H (75-99) mg/dL 10/31/19 Range/Units 07:16 POC Glucose (mg/dL) 128 H (75-99) mg/dL Assessment and Plan Assessment: #1 ESRD secondary to cardiorenal syndrome on dialysis. Started on 10/29/2019 #2 volume overload improved with dialysis #3 E. coli UTI #4 metabolic bone disease with ESRD #5 anemia with ESRD #6 diastolic CHF Plan: #1 continue with diuretics. Change to Lasix 80 mg by mouth twice a day at discharge #2 next treatment on Friday and possible discharge to an outpatient dialysis facility after dialysis.
[2019-10-31 11:41] LABS: Glucose,Whole Blood 237 mg/dL (75-99)
--- NOTE | 2019-10-31 13:33 | P.PN ---
Subjective Progress Note Date: 10/31/19 Principal diagnosis: Fatigue due to CKD Reported feeling much better after 2 dialysis treatments, she is feeling stronger but still weak. No nausea or vomiting. No fevers. Objective - Vital Signs Vital signs: Vital Signs Temp 98.1 F 10/31/19 12:09 Pulse 62 10/31/19 12:09 Resp 17 10/31/19 12:09 BP 146/67 10/31/19 12:09 Pulse Ox 98 10/31/19 12:09 Intake & Output 10/30/19 10/31/19 10/31/19 18:59 06:59 18:59 Intake Total 750 50 240 Output Total 1000 Balance -250 50 240 Intake: Oral 750 50 240 Output: Hemodialysis 1000 Other: Voiding Method Toilet Toilet # Voids 2 1 # Bowel Movements 2 2 3 - Exam Constitutional: No acute distress, conversant, pleasant Eyes:Anicteric sclerae, moist conjunctiva, no lid-lag, PERRLA, ENMT: Oropharynx clear, no erythema, exudates Neck: Supple, FROM, no masses, or JVD, No carotid bruits, No thyromegaly Lungs: Clear to auscultation, Clear to percussion, Normal respiratory effort, no accessory muscle use Cardiovascular: Heart regular in rate and rhythm, No murmurs, gallops, or rubs, No peripheral edema Abdominal: Soft, Nontender, no guarding, rebound or rigidity, Normoactive bowel sounds, No hepatomegaly, No splenomegaly, No palpable mass Skin: Normal temperature, tone, texture, turgor, no induration, No subcutaneous nodules, No rash, lesions, No ulcers Extremities: No digital cyanosis, No clubbing, Pedal pulses intact and symmetrical, Radial pulses intact and symmetrical, No calf tenderness Psychiatric: Alert and oriented to person, place and time, appropriate affect, intact judgement Neuro: Muscles Strength 5/5 in all 4 extremities, Sensation to light touch grossly present throughout, Cranial nerves II-XII grossly intact, no focal sensory deficits - Labs CBC & Chem 7: 10/28/19 08:26 10/30/19 08:48 Labs: Abnormal Lab Results - Last 24 Hours (Table) 10/30/19 10/30/19 10/31/19 Range/Units 17:23 20:33 07:16 POC Glucose (mg/dL) 170 H 229 H 128 H (75-99) mg/dL 10/31/19 Range/Units 11:39 POC Glucose (mg/dL) 237 H (75-99) mg/dL Assessment and Plan Plan: ESRD currently on dialysis Diabetes mellitus with hyperglycemia ESBL UTI Anemia Atrial fibrillation on anticoagulation Hypertension CAD Hypothyroidism Continue calcitriol. Continue sodium bicarbonate supplementation. Continue Aranecp for CKD induced anemia. Nephrology following. Dialysis tomorrow. Zosyn for ESBL Ecoli and transition to nitrofurantoin on discharge. Rest of medical issues stable, resume medications. Disposition: Likely [facility] for rehabilitation Anticipated discharge: 1-2 days
[2019-10-31 16:42] LABS: Glucose,Whole Blood 142 mg/dL (75-99)
[2019-10-31] MEDS: FOLIC ACID-VIT B COMPLEX-VIT C 1 CAP PO SCH (16:44)
[2019-10-31 21:20] LABS: Glucose,Whole Blood 177 mg/dL (75-99)
[2019-10-31] MEDS: ATORVASTATIN 10 MG TAB PO SCH (21:36)
[2019-11-01] MEDS: LEVOTHYROXINE 100 MCG TAB PO SCH (04:59)
[2019-11-01] MEDS: PIPERACILLIN-TAZOBACTAM 3.375 GM in SODIUM CHLORIDE 0.9% 100 ML IVPB SCH ×2 (04:59→15:57)
[2019-11-01 07:27] LABS: Glucose,Whole Blood 142 mg/dL (75-99)
[2019-11-01] MEDS: FUROSEMIDE 10 MG/ML 10 ML VIAL IV SCH ×3 (07:52→21:32)
[2019-11-01] MEDS: FLECAINIDE 50 MG TAB PO SCH ×2 (07:52→21:33)
[2019-11-01] MEDS: CALCITRIOL 0.25 MCG CAP PO SCH (07:52)
[2019-11-01] MEDS: FOLIC ACID-VIT B COMPLEX-VIT C 1 CAP PO SCH (07:52)
[2019-11-01] MEDS: PANTOPRAZOLE 40 MG TABLET PO SCH (07:53)
[2019-11-01] MEDS: APIXABAN 2.5 MG TABLET PO SCH ×2 (07:53→21:31)
[2019-11-01] MEDS: ALLOPURINOL 100 MG TAB PO SCH (07:53)
[2019-11-01] MEDS: INSULIN ASPART (NovoLOG) 100 UNIT/ML VIAL SQ SCH ×4 (07:56→21:33)
--- NOTE | 2019-11-01 08:39 | P.PN ---
Subjective Patient is seen in follow-up for her incisional disease. Scheduled for hemodialysis today. No chest pain or shortness of breath. Edema improved. Vital signs are stable. General: The patient appeared well nourished and normally developed. HEENT: Head exam is unremarkable. Neck is without jugular venous distension. LUNGS: Lungs are clear to auscultation and percussion. Breath sounds decreased. HEART: Rate and Rhythm are regular. First and second heart sounds normal. No murmurs, rubs or gallops. ABDOMEN: Abdominal exam reveals normal bowel sounds. Non-tender and non- distended. No evidence of peritonitis. EXTREMITITES: 1+ edema. Objective - Vital Signs Vital signs: Vital Signs Temp 97.5 F L 10/31/19 20:25 Pulse 57 L 10/31/19 20:25 Resp 18 10/31/19 20:25 BP 148/54 10/31/19 20:25 Pulse Ox 100 10/31/19 20:25 Intake & Output 10/31/19 11/01/19 11/01/19 18:59 06:59 18:59 Intake Total 580 Balance 580 Intake: Intake, IV Titration 100 Amount Piperacillin-Tazobactam 3 100 .375 gm In Sodium Chloride 0.9% 100 ml @ 25 mls/hr IVPB Q12H [facility] Rx# :[id number] Oral 480 Other: Voiding Method Toilet Toilet # Voids 0 # Bowel Movements 1 1 - Labs CBC & Chem 7: 10/28/19 08:26 10/30/19 08:48 Labs: Abnormal Lab Results - Last 24 Hours (Table) 10/31/19 10/31/19 10/31/19 Range/Units 11:39 16:40 21:11 POC Glucose (mg/dL) 237 H 142 H 177 H (75-99) mg/dL 11/01/19 Range/Units 07:10 POC Glucose (mg/dL) 142 H (75-99) mg/dL Assessment and Plan Plan: Assessment: 1. End-stage renal disease maintained on hemodialysis. She will be maintained on a Friday schedule. 2. Volume overload. Improved with ultrafiltration. 3. Chronic kidney disease mineral bone disease maintained on calcitriol. 4. Acute on chronic diastolic CHF. 5. Anemia of chronic kidney disease maintained on Aranesp. Plan: Hemodialysis today. Potential discharge to rehab after hemodialysis today.
[2019-11-01] MEDS: ATENOLOL 50 MG TAB PO SCH ×2 (10:55→21:32)
[2019-11-01 11:54] LABS: Glucose,Whole Blood 151 mg/dL (75-99)
[2019-11-01] MEDS: ACETAMINOPHEN TAB 325 MG TAB PO PRN ×2 (15:56→21:43)
--- NOTE | 2019-11-01 16:04 | P.PN ---
Subjective Progress Note Date: 11/01/19 Principal diagnosis: Fatigue due to CKD Feeling ok, no sob or pain. regaining strength gradually. No nausea or vomiting. No fevers. Objective - Vital Signs Vital signs: Vital Signs Temp 97.0 F L 11/01/19 14:44 Pulse 60 11/01/19 14:44 Resp 16 11/01/19 14:44 BP 138/58 11/01/19 14:44 Pulse Ox 95 11/01/19 14:44 Intake & Output 10/31/19 11/01/19 11/01/19 18:59 06:59 18:59 Intake Total 580 540 Output Total 2500 Balance 580 -1960 Intake: Intake, IV Titration 100 Amount Piperacillin-Tazobactam 3 100 .375 gm In Sodium Chloride 0.9% 100 ml @ 25 mls/hr IVPB Q12H [facility] Rx# :[id number] Oral 480 540 Output: Hemodialysis 2500 Other: Voiding Method Toilet Toilet # Voids 0 3 # Bowel Movements 1 1 2 - Exam Constitutional: No acute distress, conversant, pleasant Eyes:Anicteric sclerae, moist conjunctiva, no lid-lag, PERRLA, ENMT: Oropharynx clear, no erythema, exudates Neck: Supple, FROM, no masses, or JVD, No carotid bruits, No thyromegaly Lungs: Clear to auscultation, Clear to percussion, Normal respiratory effort, no accessory muscle use Cardiovascular: Heart regular in rate and rhythm, No murmurs, gallops, or rubs, No peripheral edema Abdominal: Soft, Nontender, no guarding, rebound or rigidity, Normoactive bowel sounds, No hepatomegaly, No splenomegaly, No palpable mass Skin: Normal temperature, tone, texture, turgor, no induration, No subcutaneous nodules, No rash, lesions, No ulcers Extremities: No digital cyanosis, No clubbing, Pedal pulses intact and symmetrical, Radial pulses intact and symmetrical, No calf tenderness Psychiatric: Alert and oriented to person, place and time, appropriate affect, intact judgement Neuro: Muscles Strength 5/5 in all 4 extremities, Sensation to light touch grossly present throughout, Cranial nerves II-XII grossly intact, no focal sensory deficits - Labs CBC & Chem 7: 10/28/19 08:26 10/30/19 08:48 Labs: Abnormal Lab Results - Last 24 Hours (Table) 10/31/19 10/31/19 11/01/19 Range/Units 16:40 21:11 07:10 POC Glucose (mg/dL) 142 H 177 H 142 H (75-99) mg/dL 11/01/19 Range/Units 11:51 POC Glucose (mg/dL) 151 H (75-99) mg/dL Assessment and Plan Plan: ESRD currently on dialysis Diabetes mellitus with hyperglycemia ESBL UTI Anemia Atrial fibrillation on anticoagulation Hypertension CAD Hypothyroidism Continue calcitriol. Continue sodium bicarbonate supplementation. Continue Aranecp for CKD induced anemia. Nephrology following. Dialysis tomorrow. Zosyn for ESBL Ecoli and transition to nitrofurantoin on discharge. Rest of medical issues stable, resume medications. Disposition: Likely [facility] for rehabilitation Anticipated discharge: 1-2 days
[2019-11-01 16:56] LABS: Glucose,Whole Blood 171 mg/dL (75-99)
[2019-11-01 20:51] LABS: Glucose,Whole Blood 190 mg/dL (75-99)
[2019-11-01] MEDS: ATORVASTATIN 10 MG TAB PO SCH (21:32)
[2019-11-02] MEDS: PIPERACILLIN-TAZOBACTAM 3.375 GM in SODIUM CHLORIDE 0.9% 100 ML IVPB SCH (03:47)
[2019-11-02] MEDS: LEVOTHYROXINE 100 MCG TAB PO SCH (05:14)
[2019-11-02 06:32] VITALS: BP 128/67; PULSE 60; RESP 20; TEMP 97.4
[2019-11-02 07:14] LABS: Glucose,Whole Blood 130 mg/dL (75-99)
[2019-11-02] MEDS: INSULIN ASPART (NovoLOG) 100 UNIT/ML VIAL SQ SCH ×2 (07:52→14:02)
[2019-11-02] MEDS: ALLOPURINOL 100 MG TAB PO SCH (07:53)
[2019-11-02] MEDS: APIXABAN 2.5 MG TABLET PO SCH (07:53)
[2019-11-02] MEDS: PANTOPRAZOLE 40 MG TABLET PO SCH (07:53)
[2019-11-02] MEDS: ATENOLOL 50 MG TAB PO SCH (07:53)
[2019-11-02] MEDS: CALCITRIOL 0.25 MCG CAP PO SCH (07:57)
[2019-11-02] MEDS: FLECAINIDE 50 MG TAB PO SCH (07:57)
[2019-11-02] MEDS: FOLIC ACID-VIT B COMPLEX-VIT C 1 CAP PO SCH (07:57)
[2019-11-02] MEDS: FUROSEMIDE 10 MG/ML 10 ML VIAL IV SCH (09:24)
--- NOTE | 2019-11-02 11:09 | P.DS ---
Providers Date of admission: 10/24/19 13:11 Expected date of discharge: 11/02/19 Attending physician: Raimundo Araiza MD Consults: 10/22/19 13:59 Consult Physician Urgent Consulting Provider: Sofia Child Consult Reason/Comments: renal failure Do you want consulting provider notified?: Yes 10/22/19 14:26 Consult Physician Urgent Consulting Provider: Erik Argueta Consult Reason/Comments: Renal failure Do you want consulting provider notified?: Already Contacted Primary care physician: Phil Blood Hospital Course: Discharge Diagnosis: ESRD on HD, new start (acute kidney injury and chronic kidney disease stage IV/5) Diabetes mellitus type 2 with hyperglycemia and peripheral neuropathy ESBL E coli urinary tract infection Anemia, chronic, iron deficient and chronic disease Paroxysmal Atrial fibrillation on anticoagulation Hypertension Coronary artery disease Hypothyroidism Chronic diastolic congestive heart failure Hospital Course: Patient is an 83-year-old female past medical history of atrial fibrillation, diabetes mellitus, hypertension, coronary artery disease, chronic kidney disease, obstructive sleep apnea on CPAP, and hypothyroidism who presented to the emergency department from Dr. Child's clinic due to symptoms of uremia. On arrival to the emergency department she was found to have a BUN of 101 and a creatinine of 2.55. She was having some signs and symptoms of uremia and was subsequently admitted for possible need for dialysis. Her Eliquis was held for possible need for vascular access. Her creatinine continued to improve with monitoring. She was noted to have urinary urgency and frequency with some burning. Urinalysis was done which showed ESBL E. coli in the urine. She was placed on Zosyn and completed treatment with 5 days of IV abx and will compelete macrobid treatment. She again developed fluid overload during her hospital stay requiring IV Lasix. Was ultimately decided to have a right sided permacath placed which was completed on 10/29 the patient was subsequently started on dialysis. She has tolerated her first 3 dialysis sessions during her hospital stay. She was determined stable for discharge to care home at [facility]. She will follow with Dr. Child in [address] Blood on discharge from [facility]. Patient seen and examined at bedside. Vital signs reviewed and stable. General: non toxic, no distress, appears at stated age Derm: warm, dry Head: atraumatic, normocephalic, symmetric Eyes: EOMI, no lid lag, anicteric sclera Mouth: no lip lesion, mucus membranes moist Cardiovascular: S1S2 reg, no murmur, positive posterior tibial pulse bilateral, Lungs: CTA bilateral, no rhonchi, no rales , no accessory muscle use Abdominal: soft, nontender to palpation, no guarding, no appreciable organomegaly Ext: no gross muscle atrophy, 2+ edema, no contractures Neuro: CN II-XI grossly intact, no focal neuro deficits Psych: Alert, oriented, appropriate affect A total of 35 minutes of time were spent preparing this complex discharge summary . Patient Condition at Discharge: Stable Plan - Discharge Summary Discharge Rx Participant: No New Discharge Prescriptions: New Miconazole Nitrate 4%/2% [Monistat 3 Vaginal] 1 each VAGINAL HS 3 Days #1 kit INSULIN ASPART (NovoLOG) [NovoLOG (formulary)] 0 unit SQ ACHS vial Nitrofurantoin Macrocrystal [Macrodantin] 100 mg PO BID-W/MEALS #14 cap Apixaban [Eliquis] 2.5 mg PO BID tablet sitaGLIPtin [Januvia] 25 mg PO DAILY #30 tablet Furosemide [Lasix] 80 mg PO BID@0900,1600 tab Folic Acid-Vit B Complex-Vit C [Nephrocaps] 1 each PO DAILY cap Continue Levothyroxine Sodium [Synthroid] 100 mcg PO DAILY Flecainide [Tambocor] 50 mg PO BID Apixaban [Eliquis] 2.5 mg PO BID Simvastatin [Zocor] 20 mg PO HS #90 tab Calcitriol [Rocaltrol] 0.25 mcg PO MOTUWETHFR Allopurinol [Zyloprim] 100 mg PO DAILY Atenolol [Tenormin] 50 mg PO BID Acetaminophen [Tylenol] 1,000 mg PO Q8H PRN PRN Reason: Pain Or Fever > 100.5 Cholecalciferol (Vitamin D3) [Vitamin D3] 4,000 unit PO DAILY Pantoprazole [Protonix] 40 mg PO DAILY Discontinued Multivitamins, Thera [Multivitamin (formulary)] 1 tab PO DAILY Glimepiride [Amaryl] 1 mg PO AC-BID Spironolactone [Aldactone] 12.5 mg PO DAILY Sodium Bicarbonate Tab 650 mg PO BID #60 tab Torsemide [Demadex] 20 mg PO DAILY tab Torsemide [Demadex] 10 mg PO DAILY@1400 Discharge Medication List Levothyroxine Sodium [Synthroid] 100 mcg PO DAILY 01/31/14 [History] Apixaban [Eliquis] 2.5 mg PO BID 10/12/16 [History] Flecainide [Tambocor] 50 mg PO BID 10/12/16 [History] Simvastatin [Zocor] 20 mg PO HS #90 tab 12/13/16 [Rx] Allopurinol [Zyloprim] 100 mg PO DAILY 01/18/17 [History] Calcitriol [Rocaltrol] 0.25 mcg PO MOTUWETHFR 01/18/17 [History] Atenolol [Tenormin] 50 mg PO BID 10/10/17 [History] Acetaminophen [Tylenol] 1,000 mg PO Q8H PRN 05/22/18 [History] Cholecalciferol (Vitamin D3) [Vitamin D3] 4,000 unit PO DAILY 05/26/19 [History] Pantoprazole [Protonix] 40 mg PO DAILY 08/16/19 [History] INSULIN ASPART (NovoLOG) [NovoLOG (formulary)] 0 unit SQ ACHS vial 10/26/19 [Rx] Miconazole Nitrate 4%/2% [Monistat 3 Vaginal] 1 each VAGINAL HS 3 Days #1 kit 10/26/19 [Rx] Nitrofurantoin Macrocrystal [Macrodantin] 100 mg PO BID-W/MEALS #14 cap 10/28/19 [Rx] Apixaban [Eliquis] 2.5 mg PO BID tablet 11/02/19 [Rx] Folic Acid-Vit B Complex-Vit C [Nephrocaps] 1 each PO DAILY cap 11/02/19 [Rx] Furosemide [Lasix] 80 mg PO BID@0900,1600 tab 11/02/19 [Rx] sitaGLIPtin [Januvia] 25 mg PO DAILY #30 tablet 11/02/19 [Rx] Follow up Appointment(s)/Referral(s): Phil Blood MD [Primary Care Provider] - 1-2 days Sofia Child MD [STAFF PHYSICIAN] - 1 Week Erik Argueta MD [STAFF PHYSICIAN] - 10/27/19 (patient needs appointment on friday) Ambulatory/Diagnostic Orders: Basic Metabolic Panel [LAB.AMB] Time Frame: 1 Week, Location: None Selected Complete Blood Count w/diff [LAB.AMB] Location: None Selected Patient Instructions/Handouts: Chronic Kidney Disease (DC) Activity/Diet/Wound Care/Special Instructions: Diabetic, renal diet Activity as tolerated. Supervision with all standing activities Fall precautions [facility] inserted friday10/29/2019 Discharge Disposition: TRANSFER TO SNF/ECF
[2019-11-02 11:49] LABS: Glucose,Whole Blood 204 mg/dL (75-99)
--- NOTE | 2019-11-02 12:32 | P.PN ---
Subjective Patient is seen in follow-up for end-stage renal disease. Tolerating hemodialysis well yesterday. No chest pain or shortness of breath. Edema impr geovanni. Scheduled to go to rehab today. Vital signs are stable. General: The patient appeared well nourished and normally developed. HEENT: Head exam is unremarkable. Neck is without jugular venous distension. LUNGS: Lungs are clear to auscultation and percussion. Breath sounds decreased. HEART: Rate and Rhythm are regular. First and second heart sounds normal. No murmurs, rubs or gallops. ABDOMEN: Abdominal exam reveals normal bowel sounds. Non-tender and non- distended. No evidence of peritonitis. EXTREMITITES: 1+ edema. Objective - Vital Signs Vital signs: Vital Signs Temp 97.4 F L 11/02/19 05:00 Pulse 60 11/02/19 05:00 Resp 20 11/02/19 05:00 BP 128/67 11/02/19 05:00 Pulse Ox 98 11/02/19 05:00 Intake & Output 11/01/19 11/02/19 11/02/19 18:59 06:59 18:59 Intake Total 540 740 200 Output Total 2500 Balance -1960 740 200 Intake: Oral 540 740 200 Output: Hemodialysis 2500 Other: Voiding Method Toilet Toilet Toilet # Voids 3 2 # Bowel Movements 2 1 - Labs CBC & Chem 7: 10/28/19 08:26 10/30/19 08:48 Labs: Abnormal Lab Results - Last 24 Hours (Table) 11/01/19 11/01/19 11/02/19 Range/Units 16:47 20:50 07:12 POC Glucose (mg/dL) 171 H 190 H 130 H (75-99) mg/dL 11/02/19 Range/Units 11:41 POC Glucose (mg/dL) 204 H (75-99) mg/dL Assessment and Plan Plan: Assessment: 1. End-stage renal disease maintained on hemodialysis. She will be maintained on a Friday schedule. 2. Volume overload. Improved with ultrafiltration. 3. Chronic kidney disease mineral bone disease maintained on calcitriol. 4. Acute on chronic diastolic CHF. 5. Anemia of chronic kidney disease maintained on Aranesp. Plan: Hemodialysis tomorrow. Stable for discharge to rehab from nephrology standpoint.
[2019-11-02] MEDS ORDERED: FUROSEMIDE 80 MG TAB PO SCH (16:00)
== END 2019-11-02 15:38 | DRG 673 ==
LOC: EC 12:15 → 6NMEDSUR 14:11 → OBSVTOIN 10-24 13:11
PROVIDERS: ADMIT Internal Medicine; ATTEND Internal Medicine
PROC: 5A1D70Z Performance of Urinary Filtration, Intermittent, Less than 6 Hours Per Day (ICD-10-PCS; 2019-10-29)
PROC: 0JHD3XZ Insertion of Tunneled Vascular Access Device into Right Upper Arm Subcutaneous Tissue and Fascia, Percutaneous Approach (ICD-10-PCS; principal; 2019-10-29 08:30)
PROC: B51W1ZZ Fluoroscopy of Dialysis Shunt/Fistula using Low Osmolar Contrast (ICD-10-PCS; 2019-10-29 08:30)
PROC: 02HV33Z Insertion of Infusion Device into Superior Vena Cava, Percutaneous Approach (ICD-10-PCS; 2019-10-29 08:30)
DX: N17.9 Acute kidney failure, unspecified (principal); I50.33 Acute on chronic diastolic (congestive) heart failure; E87.2 Acidosis; T82.898A Other specified complication of vascular prosthetic devices, implants and grafts, initial encounter; N39.0 Urinary tract infection, site not specified; Z16.12 Extended spectrum beta lactamase (ESBL) resistance; I13.2 Hypertensive heart and chronic kidney disease with heart failure and with stage 5 chronic kidney disease, or end stage renal disease; I49.5 Sick sinus syndrome; D63.1 Anemia in chronic kidney disease; E83.9 Disorder of mineral metabolism, unspecified; B37.3 Candidiasis of vulva and vagina; I48.0 Paroxysmal atrial fibrillation; N18.6 End stage renal disease; E11.22 Type 2 diabetes mellitus with diabetic chronic kidney disease; E11.42 Type 2 diabetes mellitus with diabetic polyneuropathy; E11.65 Type 2 diabetes mellitus with hyperglycemia; B96.20 Unspecified Escherichia coli [E. coli] as the cause of diseases classified elsewhere; D50.9 Iron deficiency anemia, unspecified; G47.33 Obstructive sleep apnea (adult) (pediatric); E78.5 Hyperlipidemia, unspecified; I25.10 Atherosclerotic heart disease of native coronary artery without angina pectoris; E03.9 Hypothyroidism, unspecified; M06.9 Rheumatoid arthritis, unspecified; M17.0 Bilateral primary osteoarthritis of knee; M16.0 Bilateral primary osteoarthritis of hip; K21.9 Gastro-esophageal reflux disease without esophagitis; K59.00 Constipation, unspecified; I25.2 Old myocardial infarction; Z99.2 Dependence on renal dialysis; E66.01 Morbid (severe) obesity due to excess calories; Z68.33 Body mass index [BMI] 33.0-33.9, adult; Z79.01 Long term (current) use of anticoagulants; Z79.84 Long term (current) use of oral hypoglycemic drugs; Z79.890 Hormone replacement therapy; Z79.899 Other long term (current) drug therapy; Z71.3 Dietary counseling and surveillance; Z86.19 Personal history of other infectious and parasitic diseases; Z87.440 Personal history of urinary (tract) infections; Z95.0 Presence of cardiac pacemaker; Z99.89 Dependence on other enabling machines and devices; Z90.710 Acquired absence of both cervix and uterus; Z98.42 Cataract extraction status, left eye; Z98.41 Cataract extraction status, right eye; Z98.890 Other specified postprocedural states; Z88.5 Allergy status to narcotic agent; Z88.0 Allergy status to penicillin; Z88.2 Allergy status to sulfonamides; Z82.49 Family history of ischemic heart disease and other diseases of the circulatory system; Z83.49 Family history of other endocrine, nutritional and metabolic diseases; Z80.9 Family history of malignant neoplasm, unspecified
CPT/HCPCS: 36415; 36558; 71045; 71046; 76937; 77001; 80048; 80053; 80299; 81001; 82550; 82728; 83540; 83550; 83605; 83735; 83880; 84100; 84443; 84484; 85025; 85027; 85610; 85730; 86704; 86706; 87077; 87086; 87186; 87324; 87340; 90935; 93005; 93306; 99285

== ENCOUNTER 2020-02-04 10:57 | Inpatient (IN) | payer MEDICARE ==
--- NOTE | 2020-02-04 11:37 | ED ---
General Adult HPI - General Chief complaint: Nausea/Vomiting/Diarrhea Stated complaint: Vomiting and Diarrhea Time Seen by Provider: 02/04/20 11:06 Source: patient, family, RN notes reviewed, old records reviewed Mode of arrival: wheelchair Limitations: no limitations - History of Present Illness Initial comments: 84-year-old female patient past medical history significant for end-stage renal disease on hemodialysis presents to ED for chief complaint of nausea and diarrhea. Patient reports she has been feeling this way since Friday. This was her last dialysis treatment. She also reports that she did have a procedure on Friday to create and AV fistula on her right upper extremity. She denies any focal area of pain. Denies any other complaints at this time. Systemic: Pt denies fatigue, fever/chills, rash. Pt denies weakness, night sweats, weight loss. Neuro: Pt denies headache, visual disturbances, syncope or pre-syncope. HEENT: Pt denies ocular discharge or irritation, otalgia, rhinorrhea, pharyngitis or notable lymphadenopathy. Cardiopulmonary: Pt denies chest pain, SOB, heart palpitations, dyspnea on exertion. Abdominal/GI: Pt denies abdominal pain, emesis. : Pt denies dysuria, burning w/ urination, frequency/urgency. Denies new onset urinary or bowel incontinence. MSK: Pt denies myalgia, loss of strength or function in extremities. Neuro: Pt denies new onset weakness, paresthesias. - Related Data Home Medications Medication Instructions Recorded Confirmed Levothyroxine Sodium [Synthroid] 100 mcg PO DAILY 01/31/14 10/22/19 Apixaban [Eliquis] 2.5 mg PO BID 10/12/16 10/22/19 Flecainide [Tambocor] 50 mg PO BID 10/12/16 10/22/19 Allopurinol [Zyloprim] 100 mg PO DAILY 01/18/17 10/22/19 Calcitriol [Rocaltrol] 0.25 mcg PO MOTUWETHFR 01/18/17 10/22/19 Atenolol [Tenormin] 50 mg PO BID 10/10/17 10/22/19 Acetaminophen [Tylenol] 1,000 mg PO Q8H PRN 05/22/18 10/22/19 Cholecalciferol (Vitamin D3) 4,000 unit PO DAILY 05/26/19 10/22/19 [Vitamin D3] Pantoprazole [Protonix] 40 mg PO DAILY 08/16/19 10/22/19 Previous Rx's Medication Instructions Recorded Simvastatin [Zocor] 20 mg PO HS #90 tab 12/13/16 INSULIN ASPART (NovoLOG) [NovoLOG 0 unit SQ ACHS vial 10/26/19 (formulary)] Miconazole Nitrate 4%/2% [Monistat 1 each VAGINAL HS 3 Days #1 kit 10/26/19 3 Vaginal] Nitrofurantoin Macrocrystal 100 mg PO BID-W/MEALS #14 cap 10/28/19 [Macrodantin] Apixaban [Eliquis] 2.5 mg PO BID tablet 11/02/19 Folic Acid-Vit B Complex-Vit C 1 each PO DAILY cap 11/02/19 [Nephrocaps] Furosemide [Lasix] 80 mg PO BID@0900,1600 tab 11/02/19 sitaGLIPtin [Januvia] 25 mg PO DAILY #30 tablet 11/02/19 Allergies Allergy/AdvReac Type Severity Reaction Status Date / Time meperidine HCl [From Demerol] Allergy Nausea & Verified 02/04/20 11:05 Vomiting Penicillins Allergy Rash/Hives Verified 02/04/20 11:05 Sulfa (Sulfonamide Allergy Rash/Hives Verified 02/04/20 11:05 Antibiotics) Review of Systems ROS Statement: Those systems with pertinent positive or pertinent negative responses have been documented in the HPI. ROS Other: All systems not noted in ROS Statement are negative. Past Medical History Past Medical History: Atrial Fibrillation, Heart Failure, Diabetes Mellitus, GERD/Reflux, Hyperlipidemia, Hypertension, Myocardial Infarction (VT), Osteoarthritis (OA), Renal Disease, Rheumatoid Arthritis (RA), Sleep Apnea/CPAP/BIPAP, Thyroid Disorder Additional Past Medical History / Comment(s): uti's,PALPITATIONS, Uses CPAP machine. Sick Sinus Syndrome with pacemaker, chronic afib. Stage 4 kidney disease. Last Myocardial Infarction Date:: 32 years ago History of Any Multi-Drug Resistant Organisms: ESBL Date of last positivie culture/infection: 11/17/19 MDRO Source:: ESBL URINE Past Surgical History: Hysterectomy, Pacemaker Additional Past Surgical History / Comment(s): hemmorrhoidectomy/rectocele/cystocele, cataracts,. vein stripping x2, right arm fistula placement. Past Anesthesia/Blood Transfusion Reactions: No Reported Reaction Type of Cardiac Device: Permanent Pacemaker Device Placement Date:: 01/2017 Past Psychological History: No Psychological Hx Reported Smoking Status: Never smoker Past Alcohol Use History: None Reported Past Drug Use History: None Reported - Past Family History Father Family Medical History: Coronary Artery Disease (CAD), Hyperlipidemia, Hypertension, Myocardial Infarction (VT) Mother Family Medical History: Unable to Obtain Sister(s) Family Medical History: Cancer General Exam - General Exam Comments Initial Comments: Constitutional: NAD, AOX3, Pt has pleasant affect. HEENT: NC/AT, trachea midline, neck supple, no lymphadenopathy.External ears appear normal, without discharge. Mucous membranes moist. EOM intact. There is no scleral icterus. No pallor noted. Cardiopulmonary: RRR, no murmurs, rubs or gallops, no JVD noted. Lungs CTAB in anterior and posterior matthews. No peripheral edema. Abdominal exam: Abdomen soft and non-distended. Abdomen non-tender to palpation in all 4 quadrants. Bowel sounds active in LLQ. No hepatosplenomegaly. No ecc hymosis Neuro: CN II-XII grossly intact. No nuchal rigidity. No raccon eyes, no villanueva sign. MSK: No posterior calf tenderness bilaterally, homans sign negative bilaterally. Posterior tibialis and radial pulse +2 bilaterally. Sensation intact in upper and lower extremities. Full active ROM in upper and lower extremities, 5/5 strength. Her CBC fistula evaluated on right upper extremity. There are localized ecchymosis recent procedure. Incision site appeared clean and dry without discharge or erythema. Neurovascularly intact. Limitations: no limitations Course Vital Signs 02/04/20 02/04/20 11:02 12:36 Temperature 97.5 F L Pulse Rate 65 66 Respiratory 18 18 Rate Blood Pressure 120/51 139/76 O2 Sat by Pulse 98 99 Oximetry Medical Decision Making - Medical Decision Making 84-year-old female patient past medical history significant for end-stage renal disease on hemodialysis presents to ED for chief complaint of nausea and diarrhea. Patient reports she has been feeling this way since Friday. This was her last dialysis treatment. She also reports that she did have a procedure on Friday to create and AV fistula on her right upper extremity. She denies any focal area of pain. Denies any other complaints at this time. Patient will signs are stable, afebrile. Physical exam displayed nontender abdomen. Area fistula creation was evaluated. There is bruising however the incision site appears clean and dry without any erythema or discharge. Patient neurovascularly intact distally. Laboratory investigations were obtained. Creatinine is 4.77. BUN is 63. UA was obtained via straight catheterization. This doesn't display grade 182 red blood cells, greater than 182 white blood cells many white blood cell clumps many bacteria. Due to patient's ALLERGIES and recent urine culture patient will have to be admitted to the hospital for IV antibiotics. Nephrology will be consulted. Case discussed with Dr. Blount. - Lab Data Result diagrams: 02/04/20 12:16 02/04/20 12:16 Lab Results 02/04/20 02/04/20 02/04/20 Range/Units 12:16 12:16 12:16 WBC 8.9 (3.8-10.6) k/uL RBC 3.56 L (3.80-5.40) m/uL Hgb 11.8 (11.4-16.0) gm/dL Hct 36.1 (34.0-46.0) % MCV 101.5 H (80.0-100.0) fL MCH 33.3 (25.0-35.0) pg MCHC 32.8 (31.0-37.0) g/dL RDW 15.4 (11.5-15.5) % Plt Count 154 (150-450) k/uL Neutrophils % 62 % Lymphocytes % 25 % Monocytes % 8 % Eosinophils % 2 % Basophils % 0 % Neutrophils # 5.5 (1.3-7.7) k/uL Lymphocytes # 2.2 (1.0-4.8) k/uL Monocytes # 0.7 (0-1.0) k/uL Eosinophils # 0.2 (0-0.7) k/uL Basophils # 0.0 (0-0.2) k/uL Macrocytosis Slight Sodium 133 L (137-145) mmol/L Potassium 4.0 (3.5-5.1) mmol/L Chloride 92 L (98-107) mmol/L Carbon Dioxide 26 (22-30) mmol/L Anion Gap 15 mmol/L BUN 63 H (7-17) mg/dL Creatinine 4.77 H (0.52-1.04) mg/dL Est GFR (CKD-EPI)AfAm 9 (>60 ml/min/1.73 sqM) Est GFR (CKD-EPI)NonAf 8 (>60 ml/min/1.73 sqM) Glucose 109 H (74-99) mg/dL Plasma Lactic Acid Gilberto (0.7-2.0) mmol/L Calcium 8.9 (8.4-10.2) mg/dL Phosphorus 4.5 (2.5-4.5) mg/dL Magnesium 1.8 (1.6-2.3) mg/dL Total Bilirubin 0.4 (0.2-1.3) mg/dL AST 22 (14-36) U/L ALT <6 (4-34) U/L Alkaline Phosphatase 101 (38-126) U/L Total Protein 6.5 (6.3-8.2) g/dL Albumin 3.7 (3.5-5.0) g/dL Lipase 27 (23-300) U/L Urine Color Yellow Urine Appearance Turbid H (Clear) Urine RBC >182 H (0-5) /hpf Urine WBC >182 H (0-5) /hpf Urine WBC Clumps Many H (None) /hpf Urine Bacteria Many H (None) /hpf 02/04/20 Range/Units 12:16 WBC (3.8-10.6) k/uL RBC (3.80-5.40) m/uL Hgb (11.4-16.0) gm/dL Hct (34.0-46.0) % MCV (80.0-100.0) fL MCH (25.0-35.0) pg MCHC (31.0-37.0) g/dL RDW (11.5-15.5) % Plt Count (150-450) k/uL Neutrophils % % Lymphocytes % % Monocytes % % Eosinophils % % Basophils % % Neutrophils # (1.3-7.7) k/uL Lymphocytes # (1.0-4.8) k/uL Monocytes # (0-1.0) k/uL Eosinophils # (0-0.7) k/uL Basophils # (0-0.2) k/uL Macrocytosis Sodium (137-145) mmol/L Potassium (3.5-5.1) mmol/L Chloride (98-107) mmol/L Carbon Dioxide (22-30) mmol/L Anion Gap mmol/L BUN (7-17) mg/dL Creatinine (0.52-1.04) mg/dL Est GFR (CKD-EPI)AfAm (>60 ml/min/1.73 sqM) Est GFR (CKD-EPI)NonAf (>60 ml/min/1.73 sqM) Glucose (74-99) mg/dL Plasma Lactic Acid Gilberto 1.0 (0.7-2.0) mmol/L Calcium (8.4-10.2) mg/dL Phosphorus (2.5-4.5) mg/dL Magnesium (1.6-2.3) mg/dL Total Bilirubin (0.2-1.3) mg/dL AST (14-36) U/L ALT (4-34) U/L Alkaline Phosphatase (38-126) U/L Total Protein (6.3-8.2) g/dL Albumin (3.5-5.0) g/dL Lipase (23-300) U/L Urine Color Urine Appearance (Clear) Urine RBC (0-5) /hpf Urine WBC (0-5) /hpf Urine WBC Clumps (None) /hpf Urine Bacteria (None) /hpf - EKG Data -: EKG Interpreted by Me (and Dr. Blount) EKG Comments: Ventricular rate 60, VT interval 184, QRS 204, QT/QTc 524/524. AV dual paced rhythm. Disposition Clinical Impression: UTI (urinary tract infection), ESRD (end stage renal disease) on dialysis Disposition: ADMITTED IP TO THIS HOSP Condition: Serious Is patient prescribed a controlled substance at d/c from ED?: No Referrals: Phil Blood MD [Primary Care Provider] - 1-2 days
[2020-02-04 12:27] LABS: Basophils % (A) 0 %; Eosinophils # (A) 0.2 k/uL (0-0.7); Eosinophils % (A) 2 %; HCT 36.1 % (34.0-46.0); HGB 11.8 gm/dL (11.4-16.0); Lymphocytes # (A) 2.2 k/uL (1.0-4.8); Lymphocytes % (A) 25 %; MCH 33.3 pg (25.0-35.0); MCHC 32.8 g/dL (31.0-37.0); MCV 101.5 fL (80.0-100.0); Macrocytosis Slight; Mean Platelet Volume 8.5; Monocytes # (A) 0.7 k/uL (0-1.0); Monocytes % (A) 8 %; Neutrophils # (A) 5.5 k/uL (1.3-7.7); Neutrophils % (A) 62 %; Platelet Count 154 k/uL (150-450); RBC 3.56 m/uL (3.80-5.40); RDW 15.4 % (11.5-15.5); WBC 8.9 k/uL (3.8-10.6)
--- NOTE | 2020-02-04 12:48 | XR ---
EXAMINATION TYPE: XR KUB DATE OF EXAM: 02/04/2020 12:44 PM CLINICAL HISTORY: Abdominal pain with nausea vomiting and diarrhea. TECHNIQUE: Two Upright KUB images of the abdomen are obtained. COMPARISON: None. FINDINGS: Scattered gas is seen in non-distended small bowel loops. Gas and fecal material is seen in non-distended colon. Nonspecific air-fluid levels in the right upper pelvis. Osseous structures are demineralized with underlying S-shaped scoliosis. Multilevel spurring and disc space narrowing throug hout the thoracolumbar spine. Overlying vascular calcification is present. There is partial visualiza tion of mild cardiomegaly and pacemaker leads. No pneumoperitoneum. IMPRESSION: Overall nonobstructive bowel gas pattern.
[2020-02-04 12:51] LABS: ALT <6 U/L (4-34); AST 22 U/L (14-36); African American GFR (CKD) 9 (>60 ml/min/1.73 sqM); Albumin 3.7 g/dL (3.5-5.0); Alkaline Phosphatase 101 U/L (38-126); Anion Gap 15 mmol/L; Blood Urea Nitrogen 63 mg/dL (7-17); Calcium 8.9 mg/dL (8.4-10.2); Carbon Dioxide 26 mmol/L (22-30); Chloride 92 mmol/L (98-107); Glucose 109 mg/dL (74-99); Magnesium 1.8 mg/dL (1.6-2.3); Non-African American GFR(CKD) 8 (>60 ml/min/1.73 sqM); Phosphorus 4.5 mg/dL (2.5-4.5); Sodium 133 mmol/L (137-145); Total Bilirubin 0.4 mg/dL (0.2-1.3); Total Protein 6.5 g/dL (6.3-8.2)
[2020-02-04 12:52] LABS: Bacteria,Urine Many /hpf; RBC,Urine >182 /hpf (0-5); WBC,Urine >182 /hpf (0-5)
[2020-02-04 12:59] LABS: Appearance,Urine Turbid (Clear); Color,Urine Yellow
[2020-02-04] MEDS ORDERED: NALOXONE 0.4 MG/ML 1 ML VIAL IV PRN (13:47)
[2020-02-04] MEDS ORDERED: ERTAPENEM 0.5 GM in SODIUM CHLORIDE 0.9% 50 ML IVPB ONE (14:00)
[2020-02-04] MEDS ORDERED: ONDANSETRON 4 MG TAB PO PRN (18:19)
[2020-02-04] MEDS ORDERED: ACETAMINOPHEN TAB 500 MG TAB PO PRN (18:19)
[2020-02-04] MEDS ORDERED: LOPERAMIDE 2 MG CAP PO PRN (18:19)
--- NOTE | 2020-02-04 19:12 | P.HPIM ---
History of Present Illness H&P Date: 02/04/20 Chief Complaint: Nausea and diarrhea This is a pleasant 84-year-old female who presents to [facility] with increased nausea and diarrhea since this Friday after dialysis. Past medical history includes end-stage renal disease hemodialysis Friday, congestive heart failure, pacemaker placement, diabetes, hypertension, hyperlipidemia, CAD, RA, GERD, sleep apnea on CPAP, chronic back pain and hypothyroidism. Patient started dialysis 3 months ago, had an AV fistula in her right upper extremity placed this past Friday. Patient states she has loose stools about 5 times a day. Patient wasn't able to go to her dialysis treatment today he cause of her diarrhea. As a result she was informed by her primary to go to the hospital. Patient denies hematochezia, melena, or watery stools. Patient further denies chest pain shortness of breath fever chills. UA in the ER revealed turbid urine with many bacteria white blood cells and red blood cells. Patient has a known history of recurrent ESBL UTI and will be place him. Antibiotics during hospital stay. Patient currently denies urinary symptoms. Patient was mildly hyponatremic at 133 BUN 63 creatinine 4.77 glucose 109. Hemoglobin A1c from 11/05/2019 was 6.6 TSH from 10/14/2019 was 1.12. Echocardiogram performed on 10/25/2019 revealed an ejection fraction of 55-60%. Review of Systems A 12 point review of systems was assessed patient was only positive for those identified in HPI Past Medical History Past Medical History: Atrial Fibrillation, Heart Failure, Diabetes Mellitus, GERD/Reflux, Hyperlipidemia, Hypertension, Myocardial Infarction ([place]), Osteoarthritis (OA), Renal Disease, Rheumatoid Arthritis (RA), Sleep Apnea/CPAP/BIPAP, Thyroid Disorder Additional Past Medical History / Comment(s): uti's,PALPITATIONS, Uses CPAP machine. Sick Sinus Syndrome with pacemaker, chronic afib. Stage 4 kidney disease. Last Myocardial Infarction Date:: 32 years ago History of Any Multi-Drug Resistant Organisms: ESBL Date of last positivie culture/infection: 11/17/19 MDRO Source:: ESBL URINE Past Surgical History: Hysterectomy, Pacemaker Additional Past Surgical History / Comment(s): hemmorrhoidectomy/rectocele/cystocele, cataracts,. vein stripping x2, right arm fistula placement. Past Anesthesia/Blood Transfusion Reactions: No Reported Reaction Type of Cardiac Device: Permanent Pacemaker Device Placement Date:: 01/2017 Past Psychological History: No Psychological Hx Reported Smoking Status: Never smoker Past Alcohol Use History: None Reported Past Drug Use History: None Reported - Past Family History Father Family Medical History: Coronary Artery Disease (CAD), Hyperlipidemia, Hyp ertension, Myocardial Infarction ([place]) Mother Family Medical History: Unable to Obtain Sister(s) Family Medical History: Cancer Medications and Allergies Home Medications Medication Instructions Recorded Confirmed Type Levothyroxine Sodium [Synthroid] 100 mcg PO DAILY 01/31/14 02/04/20 History Flecainide [Tambocor] 50 mg PO BID 10/12/16 02/04/20 History Allopurinol [Zyloprim] 100 mg PO DAILY 01/18/17 02/04/20 History Atenolol [Tenormin] 50 mg PO QAM 10/10/17 02/04/20 History Acetaminophen [Tylenol] 1,000 mg PO Q8H PRN 05/22/18 02/04/20 History Cholecalciferol (Vitamin D3) 4,000 unit PO DAILY 05/26/19 02/04/20 History [Vitamin D3] Pantoprazole [Protonix] 40 mg PO DAILY 08/16/19 02/04/20 History Apixaban [Eliquis] 2.5 mg PO BID tablet 11/02/19 02/04/20 Rx Atenolol [Tenormin] 25 mg PO HS 02/04/20 02/04/20 History Folic Acid-Vit B Complex-Vit C 1 cap PO DAILY 02/04/20 02/04/20 History [Nephrocaps] Insulin Lispro [humaLOG Kwikpen] See Protocol SQ AC-TID 02/04/20 02/04/20 History Loperamide HCl [Loperamide] 2 mg PO DAILY PRN 02/04/20 02/04/20 History Ondansetron [Zofran] 4 mg PO Q8HR PRN 02/04/20 02/04/20 History Simvastatin [Zocor] 20 mg PO DAILY 02/04/20 02/04/20 History Torsemide [Demadex] 40 mg PO DIRECTED 02/04/20 02/04/20 History Allergies Allergy/AdvReac Type Severity Reaction Status Date / Time Penicillins Allergy Rash/Hives Verified 02/04/20 14:06 Sulfa (Sulfonamide Allergy Rash/Hives Verified 02/04/20 14:06 Antibiotics) meperidine HCl [From Demerol] AdvReac Nausea & Verified 02/04/20 14:06 Vomiting Physical Exam Osteopathic Statement: *. No significant issues noted on an osteopathic structural exam other than those noted in the History and Physical/Consult. Vitals: Vital Signs Temp Pulse Resp BP Pulse Ox 02/04/20 18:14 86 16 120/53 97 02/04/20 15:24 87 16 141/86 99 02/04/20 12:36 66 18 139/76 99 02/04/20 11:02 97.5 F L 65 18 120/51 98 Intake and Output 02/04/20 02/04/20 02/04/20 06:59 14:59 22:59 Other: Weight 90.718 kg General: [non toxic], [no distress], [appears at stated age] Derm: [warm], [dry] Head: [atraumatic], [normocephalic], [symmetric] Eyes: [EOMI], [no lid lag], [anicteric sclera] Mouth: [no lip lesion], [mucus membranes moist] Cardiovascular: [S1S2 reg], [no murmur], [positive posterior tibial pulse bilateral], Lungs: [CTA bilateral], [no rhonchi, no rales] , [no accessory muscle use] Abdominal: [soft], [ nontender to palpation], [no guarding], [no appreciable organomegaly] Ext: [no gross muscle atrophy], [+2 b/l edema], [no contractures] right upper arm fistula with harmeet in place Neuro: [ CN II-XI grossly intact], [no focal neuro deficits] Psych: [Alert], [oriented], [appropriate affect] Results CBC & Chem 7: 02/04/20 12:16 02/04/20 12:16 Labs: Abnormal Lab Results - Last 24 Hours (Table) 02/04/20 02/04/20 02/04/20 Range/Units 12:16 12:16 12:16 RBC 3.56 L (3.80-5.40) m/uL MCV 101.5 H (80.0-100.0) fL Sodium 133 L (137-145) mmol/L Chloride 92 L (98-107) mmol/L BUN 63 H (7-17) mg/dL Creatinine 4.77 H (0.52-1.04) mg/dL Glucose 109 H (74-99) mg/dL Urine Appearance Turbid H (Clear) Urine RBC >182 H (0-5) /hpf Urine WBC >182 H (0-5) /hpf Urine WBC Clumps Many H (None) /hpf Urine Bacteria Many H (None) /hpf Thrombosis Risk Factor Assmnt - DVT/VTE Prophylaxis DVT/VTE Prophylaxis: Pharmacologic Prophylaxis ordered Assessment and Plan Plan: 1. Nausea and diarrhea rule out infectious etiology Stool cultures obtained Zofran when necessary 2. UTI with history of ESBL Continue ertapenem Consult ID 3. End-stage renal disease hemodialysis Friday Receiving HD currently Consult nephrology 4. Diabetes mellitus well controlled Most recent hemoglobin A1c was 6.6 in October of this year Insulin sliding scale Diabetic diet 5. Hypothyroid Restart levothyroxine 6. History of congestive heart failure, coronary artery disease, hyperlip idemia, GERD, and hypertension Restart home medications 7. History of chronic back pain with RA Tylenol when necessary pain 8. History of vitamin D deficiency Recheck vitamin D level Continue replacement therapy 9. GI and DVT prophylaxis 10. A.m. labs Greater than 45 minutes spent coordinating care and counseling Patient is a full code PCP is Dr. Blood Patient's power of trademark attorney is her daughter phone number [phone]
[2020-02-04] MEDS ORDERED: IPRATROPIUM-ALBUTEROL 3 ML NEB INHALATION PRN (19:13)
[2020-02-04 20:15] LABS: Glucose,Whole Blood 144 mg/dL (75-99)
[2020-02-04] MEDS: APIXABAN 2.5 MG TABLET PO SCH (22:00)
[2020-02-04] MEDS: FLECAINIDE 50 MG TAB PO SCH (22:00)
[2020-02-04] MEDS: ATENOLOL 25 MG TAB PO SCH (22:00)
[2020-02-05] MEDS: LEVOTHYROXINE 100 MCG TAB PO SCH (06:19)
[2020-02-05 07:37] LABS: Glucose,Whole Blood 125 mg/dL (75-99)
[2020-02-05] MEDS: FOLIC ACID-VIT B COMPLEX-VIT C 1 CAP PO SCH (07:57)
[2020-02-05] MEDS: FLECAINIDE 50 MG TAB PO SCH ×2 (07:57→20:26)
[2020-02-05] MEDS: ERTAPENEM 0.5 GM in SODIUM CHLORIDE 0.9% 50 ML IVPB SCH (07:57)
[2020-02-05] MEDS: TORSEMIDE 20 MG TAB PO SCH (07:58)
[2020-02-05] MEDS: CHOLECALCIFEROL 1,000 UNIT TAB PO SCH (07:58)
[2020-02-05] MEDS: PANTOPRAZOLE 40 MG TABLET PO SCH (07:59)
[2020-02-05] MEDS: ATENOLOL 50 MG TAB PO SCH (07:59)
[2020-02-05] MEDS: ALLOPURINOL 100 MG TAB PO SCH (07:59)
[2020-02-05] MEDS: INSULIN ASPART (NovoLOG) 100 UNIT/ML VIAL SQ SCH ×3 (07:59→17:45)
[2020-02-05] MEDS: ATORVASTATIN 10 MG TAB PO SCH (07:59)
[2020-02-05] MEDS: APIXABAN 2.5 MG TABLET PO SCH ×2 (07:59→20:26)
[2020-02-05 10:02] LABS: Albumin 3.6 g/dL (3.5-5.0); Calcium 8.9 mg/dL (8.4-10.2); Potassium 3.6 mmol/L (3.5-5.1); Total Bilirubin 0.3 mg/dL (0.2-1.3); Total Protein 6.3 g/dL (6.3-8.2)
[2020-02-05 10:34] LABS: Basophils % (A) 1 %; Eosinophils # (A) 0.1 k/uL (0-0.7); Eosinophils % (A) 3 %; HCT 35.9 % (34.0-46.0); HGB 11.8 gm/dL (11.4-16.0); Lymphocytes # (A) 1.4 k/uL (1.0-4.8); Lymphocytes % (A) 26 %; MCH 34.5 pg (25.0-35.0); MCHC 32.9 g/dL (31.0-37.0); MCV 104.8 fL (80.0-100.0); Macrocytosis Moderate; Mean Platelet Volume 8.4; Monocytes # (A) 0.4 k/uL (0-1.0); Monocytes % (A) 8 %; Neutrophils # (A) 3.3 k/uL (1.3-7.7); Neutrophils % (A) 60 %; Platelet Count 149 k/uL (150-450); RBC 3.43 m/uL (3.80-5.40); RDW 15.9 % (11.5-15.5); WBC 5.5 k/uL (3.8-10.6)
[2020-02-05 11:40] LABS: Glucose,Whole Blood 153 mg/dL (75-99)
--- NOTE | 2020-02-05 12:40 | P.NPCON ---
History of Present Illness - Reason for Consult Consult date: 02/05/20 end stage renal disease - Chief Complaint Nausea vomiting diarrhea - History of Present Illness This is a 84-year-old female with ESRD on dialysis Friday who came to the emergency room with nausea vomiting and diarrhea. This morning she is feeling better she has had 2 loose stools this morning. No abdominal pain no fever chills She has a good appetite. She is known with diabetes history of heart disease or arthritis sleep apnea. Past Medical History Past Medical History: Atrial Fibrillation, Heart Failure, Diabetes Mellitus, GERD/Reflux, Hyperlipidemia, Hypertension, Myocardial Infarction ([place]), Osteoarthritis (OA), Renal Disease, Rheumatoid Arthritis (RA), Sleep Apnea/CPAP/BIPAP, Thyroid Disorder Additional Past Medical History / Comment(s): uti's,PALPITATIONS, Uses CPAP machine. Sick Sinus Syndrome with pacemaker, chronic afib. Stage 4 kidney disease. Last Myocardial Infarction Date:: 32 years ago History of Any Multi-Drug Resistant Organisms: ESBL Date of last positivie culture/infection: 11/17/19 MDRO Source:: ESBL URINE Past Surgical History: Hysterectomy, Pacemaker Additional Past Surgical History / Comment(s): hemmorrhoidectomy/rectocele/ cystocele, cataracts,. vein stripping x2, right arm fistula placement. Past Anesthesia/Blood Transfusion Reactions: No Reported Reaction Type of Cardiac Device: Permanent Pacemaker Device Placement Date:: 01/2017 Past Psychological History: No Psychological Hx Reported Smoking Status: Never smoker Past Alcohol Use History: None Reported Past Drug Use History: None Reported - Past Family History Father Family Medical History: Coronary Artery Disease (CAD), Hyperlipidemia, Hypertension, Myocardial Infarction ([place]) Mother Family Medical History: Unable to Obtain Sister(s) Family Medical History: Cancer Medications and Allergies Home Medications Medication Instructions Recorded Confirmed Type Levothyroxine Sodium [Synthroid] 100 mcg PO DAILY 01/31/14 02/04/20 History Flecainide [Tambocor] 50 mg PO BID 10/12/16 02/04/20 History Allopurinol [Zyloprim] 100 mg PO DAILY 01/18/17 02/04/20 History Atenolol [Tenormin] 50 mg PO QAM 10/10/17 02/04/20 History Acetaminophen [Tylenol] 1,000 mg PO Q8H PRN 05/22/18 02/04/20 History Cholecalciferol (Vitamin D3) 4,000 unit PO DAILY 05/26/19 02/04/20 History [Vitamin D3] Pantoprazole [Protonix] 40 mg PO DAILY 08/16/19 02/04/20 History Apixaban [Eliquis] 2.5 mg PO BID tablet 11/02/19 02/04/20 Rx Atenolol [Tenormin] 25 mg PO HS 02/04/20 02/04/20 History Folic Acid-Vit B Complex-Vit C 1 cap PO DAILY 02/04/20 02/04/20 History [Nephrocaps] Insulin Lispro [humaLOG Kwikpen] See Protocol SQ AC-TID 02/04/20 02/04/20 History Loperamide HCl [Loperamide] 2 mg PO DAILY PRN 02/04/20 02/04/20 History Ondansetron [Zofran] 4 mg PO Q8HR PRN 02/04/20 02/04/20 History Simvastatin [Zocor] 20 mg PO DAILY 02/04/20 02/04/20 History Torsemide [Demadex] 40 mg PO DIRECTED 02/04/20 02/04/20 History Allergies Allergy/AdvReac Type Severity Reaction Status Date / Time Penicillins Allergy Rash/Hives Verified 02/04/20 14:06 Sulfa (Sulfonamide Allergy Rash/Hives Verified 02/04/20 14:06 Antibiotics) meperidine HCl [From Demerol] AdvReac Nausea & Verified 02/04/20 14:06 Vomiting Physical Exam Vitals: Vital Signs Temp Pulse Pulse Resp BP BP Pulse Ox 02/05/20 07:00 98.6 F 75 16 117/57 93 L 02/05/20 04:00 20 02/05/20 01:48 98.5 F 74 18 117/68 95 02/04/20 20:00 20 02/04/20 19:52 97.6 F 79 17 148/72 96 02/04/20 18:57 97.9 F 78 20 118/52 02/04/20 18:14 86 16 120/53 97 02/04/20 15:24 87 16 141/86 99 Intake and Output 02/04/20 02/05/20 02/05/20 22:59 06:59 14:59 Output Total 1450 Balance -1450 Output: Hemodialysis 1450 Other: Voiding Method Toilet Toilet Diaper # Voids 1 0 Weight 90.718 kg Examination awake alert oriented comfortable HEENT exam no JVP neck is supple no facial asymmetry Lungs are clear to auscultation with good air entry bilaterally Heart sounds unremarkable for any murmur rub gallop Abdomen soft nontender nondistended no organomegaly ascites masses Extremity exam was bluish discoloration of both lower extremities below midcalf somewhat coolish to touch. Extremity exam was no edema Neurologically awake alert oriented Results - Lab Results Most recent lab results Calcium 8.9 mg/dL (8.4-10.2) 02/05/20 09:14 Phosphorus 4.5 mg/dL (2.5-4.5) 02/04/20 12:16 Magnesium 1.8 mg/dL (1.6-2.3) 02/04/20 12:16 02/05/20 09:14 02/05/20 09:14 Assessment and Plan Assessment: Impression 1. ESRD on dialysis Friday was a Friday stable 2. Admitted with gastroenteritis, improving 3. Anemia of ESRD hemoglobin 11.8 about target 4. Electrolytes normal except for sodium of 136 Recommendation Patient can be discharged home as soon as she feels better today or tomorrow.. Maintain Friday visit for his dialysis schedule No need for IV fluids as she is eating well
--- NOTE | 2020-02-05 13:13 | P.PN ---
Subjective Progress Note Date: 02/05/20 Patient seen and examined at bedside. She denies chest pain shortness of breath, nausea, vomiting. fevers or chills. Patient states that her diarrhea has improved she has only gone twice with loose stools today. Patient currently being treated for UTI likely ESBL. Objective - Vital Signs Vital signs: Vital Signs Temp 98.6 F 02/05/20 07:00 Pulse 75 02/05/20 07:00 Resp 16 02/05/20 07:00 BP 117/57 02/05/20 07:00 Pulse Ox 93 L 02/05/20 07:00 Intake & Output 02/04/20 02/05/20 02/05/20 18:59 06:59 18:59 Output Total 1450 Balance -1450 Weight 90.718 kg Output: Hemodialysis 1450 Other: Voiding Method Toilet Toilet Diaper # Voids 0 - Exam General: [non toxic], [no distress], [appears at stated age] Derm: [warm], [dry] Head: [atraumatic], [normocephalic], [symmetric] Eyes: [EOMI], [no lid lag], [anicteric sclera] Mouth: [no lip lesion], [mucus membranes moist] Cardiovascular: [S1S2 reg], [no murmur], [positive posterior tibial pulse bilateral], Lungs: [CTA bilateral], [no rhonchi, no rales] , [no accessory muscle use] Abdominal: [soft], [ nontender to palpation], [no guarding], [no appreciable organomegaly] Ext: [no gross muscle atrophy], [no edema], [no contractures] Neuro: [ CN II-XI grossly intact], [no focal neuro deficits] Psych: [Alert], [oriented], [appropriate affect] - Labs CBC & Chem 7: 02/05/20 09:14 02/05/20 09:14 Labs: Abnormal Lab Results - Last 24 Hours (Table) 02/04/20 02/05/20 02/05/20 Range/Units 20:12 07:35 09:14 RBC 3.43 L (3.80-5.40) m/uL MCV 104.8 H (80.0-100.0) fL RDW 15.9 H (11.5-15.5) % Plt Count 149 L (150-450) k/uL Sodium (137-145) mmol/L BUN (7-17) mg/dL Creatinine (0.52-1.04) mg/dL Glucose (74-99) mg/dL POC Glucose (mg/dL) 144 H 125 H (75-99) mg/dL 02/05/20 02/05/20 Range/Units 09:14 11:39 RBC (3.80-5.40) m/uL MCV (80.0-100.0) fL RDW (11.5-15.5) % Plt Count (150-450) k/uL Sodium 136 L (137-145) mmol/L BUN 32 H (7-17) mg/dL Creatinine 2.99 H (0.52-1.04) mg/dL Glucose 172 H (74-99) mg/dL POC Glucose (mg/dL) 153 H (75-99) mg/dL Microbiology - Last 24 Hours (Table) 02/04/20 12:16 Urine Culture - Preliminary Urine,Catheterized Assessment and Plan Assessment: 1. Nausea and diarrhea improved Stool cultures negative Zofran when necessary 2. UTI with history of ESBL Continue ertapenem ID recommendations appreciated 3. End-stage renal disease hemodialysis Friday Creatinine improved nephrology recommendations appreciated 4. Diabetes mellitus well controlled Most recent hemoglobin A1c was 6.6 in October of this year Insulin sliding scale Diabetic diet 5. Hypothyroid on levothyroxine 6. History of congestive heart failure, coronary artery disease, hyperlipidemia, GERD, and hypertension continue current home meds 7. History of chronic back pain with RA Tylenol when necessary pain 8. History of vitamin D deficiency vitamin D level pending Continue replacement therapy 9. GI and DVT prophylaxis 10. A.m. labs
[2020-02-05 16:32] LABS: Glucose,Whole Blood 142 mg/dL (75-99)
[2020-02-05] MEDS ORDERED: VANCOMYCIN IV PER PHARMACY 1 EACH MISC MISCELLANE PRN (16:57)
[2020-02-05] MEDS ORDERED: VANCOMYCIN 1,500 MG in SODIUM CHLORIDE 0.9% 250 ML IVPB ONE (17:00)
[2020-02-05] MEDS: ATENOLOL 25 MG TAB PO SCH (20:26)
[2020-02-05 21:28] LABS: Glucose,Whole Blood 150 mg/dL (75-99)
[2020-02-06] MEDS: LEVOTHYROXINE 100 MCG TAB PO SCH (06:15)
[2020-02-06 07:14] LABS: Glucose,Whole Blood 132 mg/dL (75-99)
[2020-02-06] MEDS: TORSEMIDE 20 MG TAB PO SCH (07:56)
[2020-02-06] MEDS: FLECAINIDE 50 MG TAB PO SCH ×2 (07:56→20:20)
[2020-02-06] MEDS: FOLIC ACID-VIT B COMPLEX-VIT C 1 CAP PO SCH (07:56)
[2020-02-06] MEDS: ERTAPENEM 0.5 GM in SODIUM CHLORIDE 0.9% 50 ML IVPB SCH (07:56)
[2020-02-06] MEDS: INSULIN ASPART (NovoLOG) 100 UNIT/ML VIAL SQ SCH ×3 (07:57→17:10)
[2020-02-06] MEDS: ATORVASTATIN 10 MG TAB PO SCH (07:57)
[2020-02-06] MEDS: CHOLECALCIFEROL 1,000 UNIT TAB PO SCH (07:57)
[2020-02-06] MEDS: PANTOPRAZOLE 40 MG TABLET PO SCH (07:57)
[2020-02-06] MEDS: APIXABAN 2.5 MG TABLET PO SCH ×2 (07:57→20:20)
[2020-02-06] MEDS: ATENOLOL 50 MG TAB PO SCH (07:57)
[2020-02-06] MEDS: ALLOPURINOL 100 MG TAB PO SCH (07:57)
--- NOTE | 2020-02-06 09:00 | P.CONS ---
History of Present Illness - Reason for Consult Consult date: 02/05/20 UTI Requesting physician: Yecenia Leon - Chief Complaint dysuria and diarrhea x few days - History of Present Illness Patient is 84-year-old female with a past medical history significant for end-stage renal disease on hemodialysis through the right subclavian permacatheter the patient still makes urine and is presenting to the ER per advice of her primary care physician for symptoms of 4 significant dysuria describing it as a needles and pains and sharp pain when she urinates urinates she also complaining of some suprapubic discomfort more of a dull aching pain about 4 to 5-10 and no radiation in addition that the patient did have diarrhea with multiple loose stools patient says she was unable to go for her dialysis on Friday call the primary care physician who advised the patient to go to the ER for her symptoms patient did have a previous history of ESBL E. coli urinary tract infection with a loss urine culture has been positive for ESBL in October 2019 with these symptom had the patient has been evaluated by the ER physician on arrival to the ER patient has been afebrile she did have a normal white count significantly positive UA with evidence of hematuria as well patient did have chowdary PCR was negative stool for C. difficile has been negative patient has been started on ertapenem admitted to hospital and facility was consulted for further management of antibiotic therapy patient blood culture subsequently came back positive for gram-positive cocci in clusters as well. Review of Systems Positive point has been mentioned in HPI rest of the systems are negative Past Medical History Past Medical History: Atrial Fibrillation, Heart Failure, Diabetes Mellitus, GERD/Reflux, Hyperlipidemia, Hypertension, Myocardial Infarction ([place]), Osteoarthritis ([place]), Renal Disease, Rheumatoid Arthritis (RA), Sleep Apnea/CPAP/BIPAP, Thyroid Disorder Additional Past Medical History / Comment(s): uti's,PALPITATIONS, Uses CPAP machine. Sick Sinus Syndrome with pacemaker, chronic afib. Stage 4 kidney disease. Last Myocardial Infarction Date:: 32 years ago History of Any Multi-Drug Resistant Organisms: ESBL Year Discovered:: 11/17/19 MDRO Source:: ESBL URINE Past Surgical History: Hysterectomy, Pacemaker Additional Past Surgical History / Comment(s): hemmorrhoidectomy/rectocele/cystocele, cataracts,. vein stripping x2, right arm fistula placement. Past Anesthesia/Blood Transfusion Reactions: No Reported Reaction Type of Cardiac Device: Permanent Pacemaker Device Placement Date:: 01/2017 Past Psychological History: No Psychological Hx Reported Smoking Status: Never smoker Past Alcohol Use History: None Reported Past Drug Use History: None Reported - Past Family History Father Family Medical History: Coronary Artery Disease (CAD), Hyperlipidemia, Hypertension, Myocardial Infarction ([place]) Mother Family Medical History: Unable to Obtain Sister(s) Family Medical History: Cancer Medications and Allergies Home Medications Medication Instructions Recorded Confirmed Type Levothyroxine Sodium [Synthroid] 100 mcg PO DAILY 01/31/14 02/04/20 History Flecainide [Tambocor] 50 mg PO BID 10/12/16 02/04/20 History Allopurinol [Zyloprim] 100 mg PO DAILY 01/18/17 02/04/20 History Atenolol [Tenormin] 50 mg PO QAM 10/10/17 02/04/20 History Acetaminophen [Tylenol] 1,000 mg PO Q8H PRN 05/22/18 02/04/20 History Cholecalciferol (Vitamin D3) 4,000 unit PO DAILY 05/26/19 02/04/20 History [Vitamin D3] Pantoprazole [Protonix] 40 mg PO DAILY 08/16/19 02/04/20 History Apixaban [Eliquis] 2.5 mg PO BID tablet 11/02/19 02/04/20 Rx Atenolol [Tenormin] 25 mg PO HS 02/04/20 02/04/20 History Folic Acid-Vit B Complex-Vit C 1 cap PO DAILY 02/04/20 02/04/20 History [Nephrocaps] Insulin Lispro [humaLOG Kwikpen] See Protocol SQ AC-TID 02/04/20 02/04/20 History Loperamide HCl [Loperamide] 2 mg PO DAILY PRN 02/04/20 02/04/20 History Ondansetron [Zofran] 4 mg PO Q8HR PRN 02/04/20 02/04/20 History Simvastatin [Zocor] 20 mg PO DAILY 02/04/20 02/04/20 History Torsemide [Demadex] 40 mg PO DIRECTED 02/04/20 02/04/20 History Allergies Allergy/AdvReac Type Severity Reaction Status Date / Time Penicillins Allergy Rash/Hives Verified 02/04/20 14:06 Sulfa (Sulfonamide Allergy Rash/Hives Verified 02/04/20 14:06 Antibiotics) meperidine HCl [From Demerol] AdvReac Nausea & Verified 02/04/20 14:06 Vomiting Physical Exam Vitals: Vital Signs Temp Pulse Pulse Resp BP BP Pulse Ox 02/05/20 14:46 98.2 F 65 15 99/53 97 02/05/20 07:00 98.6 F 75 16 117/57 93 L 02/05/20 04:00 20 02/05/20 01:48 98.5 F 74 18 117/68 95 02/04/20 20:00 20 02/04/20 19:52 97.6 F 79 17 148/72 96 02/04/20 18:57 97.9 F 78 20 118/52 02/04/20 18:14 86 16 120/53 97 Intake and Output 02/05/20 02/05/20 02/05/20 06:59 14:59 22:59 Other: Voiding Method Toilet # Voids 0 4 # Bowel Movements 3 GENERAL DESCRIPTION: Elderly female up in the chair, no distress. No tachypnea or accessory muscle of respiration use. HEENT: Shows Pallor , no scleral icterus. Oral mucous membrane is dry. NECK: Trachea central, no thyromegaly. LUNGS: Unlabored breathing. Clear to auscultation anteriorly. No wheeze or crackle. HEART: S1, S2, regular rate and rhythm. ABDOMEN: Soft, no tenderness , guarding or rigidity EXTREMITIES: No edema of feet. SKIN: No rash, no masses palpable. NEUROLOGICAL: The patient is awake, alert, oriented x3, mood and affect normal. Results CBC & Chem 7: 02/05/20 09:14 02/05/20 09:14 Labs: Abnormal Lab Results - Last 24 Hours (Table) 02/04/20 02/05/20 02/05/20 Range/Units 20:12 05:07 07:35 RBC (3.80-5.40) m/uL MCV (80.0-100.0) fL RDW (11.5-15.5) % Plt Count (150-450) k/uL Sodium (137-145) mmol/L BUN (7-17) mg/dL Creatinine (0.52-1.04) mg/dL Glucose (74-99) mg/dL POC Glucose (mg/dL) 144 H 125 H (75-99) mg/dL Stool Lactoferrin POSITIVE H (NEGATIVE) 02/05/20 02/05/20 02/05/20 Range/Units 09:14 09:14 11:39 RBC 3.43 L (3.80-5.40) m/uL MCV 104.8 H (80.0-100.0) fL RDW 15.9 H (11.5-15.5) % Plt Count 149 L (150-450) k/uL Sodium 136 L (137-145) mmol/L BUN 32 H (7-17) mg/dL Creatinine 2.99 H (0.52-1.04) mg/dL Glucose 172 H (74-99) mg/dL POC Glucose (mg/dL) 153 H (75-99) mg/dL Stool Lactoferrin (NEGATIVE) Microbiology - Last 24 Hours (Table) 02/04/20 12:16 Urine Culture - Preliminary Urine,Catheterized Assessment and Plan Assessment: 1-patient presented hospital with significant dysuria and suprapubic discomfort in this patient who did have history of recurrent ESBL E. coli urinary tract infection with concern for possible structural abnormality possible cystitis as the patient do not have a fever or elevated white count to be suspicious for deep infection 2-positive blood culture with gram-positive cocci, possible skin contaminant , however in view of the patient permacatheter will have to make sure not dealing with the permacatheter infection (1) Gram-positive bacteremia Current Visit: Yes Status: Acute Code(s): R78.81 - BACTEREMIA SNOMED Code(s): 197025834406 (2) UTI (urinary tract infection) Current Visit: Yes Status: Acute Code(s): N39.0 - URINARY TRACT INFECTION, SITE NOT SPECIFIED SNOMED Code(s): 53608408 Plan: 1-blood cultures will be repeated x1 now 2-vancomycin pharmacy to dose her with a target trough of 15 while watching her kidney function and Vanco trough closely. 3-Invanz 500 g daily, dose adjusted to the kidney function 4-obtain ultrasound of the kidneys and bladder area to rule out any structural normality We will follow on clinical condition and cultures to further adjust medication if needed Thank you for this consultation we will follow the patient along with you Time with Patient: Greater than 30
[2020-02-06 09:01] LABS: Basophils % (A) 0 %; Eosinophils # (A) 0.2 k/uL (0-0.7); Eosinophils % (A) 3 %; HCT 35.9 % (34.0-46.0); HGB 11.4 gm/dL (11.4-16.0); Lymphocytes # (A) 2.2 k/uL (1.0-4.8); Lymphocytes % (A) 30 %; MCH 32.7 pg (25.0-35.0); MCHC 31.7 g/dL (31.0-37.0); MCV 103.3 fL (80.0-100.0); Macrocytosis Slight; Monocytes # (A) 0.5 k/uL (0-1.0); Monocytes % (A) 7 %; Neutrophils # (A) 4.1 k/uL (1.3-7.7); Neutrophils % (A) 56 %; Platelet Count 169 k/uL (150-450); RBC 3.47 m/uL (3.80-5.40); RDW 15.3 % (11.5-15.5); WBC 7.3 k/uL (3.8-10.6)
[2020-02-06 09:13] LABS: Albumin 3.7 g/dL (3.5-5.0); Calcium 9.1 mg/dL (8.4-10.2); Potassium 3.7 mmol/L (3.5-5.1); Total Bilirubin 0.5 mg/dL (0.2-1.3); Total Protein 6.5 g/dL (6.3-8.2)
--- NOTE | 2020-02-06 10:58 | US ---
EXAMINATION TYPE: US kidneys/renal and bladder DATE OF EXAM: 02/06/2020 COMPARISON: Previous study dated 07/18/2017. CLINICAL HISTORY: recurrent UTI. Recurrent UTI, exam done portable EXAM MEASUREMENTS: Right Kidney: 10.6 x 5.1 x 4.4 cm Left Kidney: 9.7 x 4.6 x 4.7 cm Right Kidney: cortical thinning, no hydronephrosis or masses seen Left Kidney: cortical thinning, no hydronephrosis, 1.2cm hypoechoic area inferior pole Bladder: not fully distended Bilateral Jets seen: no There is no evidence of hydronephrosis at this time. There is a 1.2 cm hypoechoic mass in the inferio r aspect of the left kidney. This does not meet the requirements of a simple cyst. IMPRESSION: 1. NO EVIDENCE OF HYDRONEPHROSIS AT THIS TIME. 2. LESION IN THE INFERIOR POLE OF THE LEFT KIDNEY DOES NOT MEET THE REQUIREMENTS OF A SIMPLE CYST. FU RTHER INVESTIGATION WITH CT OR MR WOULD BE SUGGESTED.
--- NOTE | 2020-02-06 11:28 | P.PN ---
Subjective Progress Note Date: 02/06/20 Principal diagnosis: Tonya 84-year-old female with ESRD on dialysis Friday was admitted with basically nausea vomiting and loose stools and presumed gastroenteritis. She also has recurrent UTI supposedly. This admission she did not complain of any dysuria but the urine culture and urinalysis are positive for gram-negative in the past she has had E. coli. She never had any fever dysuria or frequency. She is currently on Invanz IV. This morning she has had 2 loose stools small amount of no abdominal pain. No nausea vomiting. Objective - Vital Signs Vital signs: Vital Signs Temp 98.0 F 02/06/20 02:10 Pulse 67 02/06/20 02:10 Resp 16 02/05/20 20:15 BP 130/61 02/06/20 02:10 Pulse Ox 96 02/06/20 02:10 Intake & Output 02/05/20 02/06/20 02/06/20 18:59 06:59 18:59 Intake Total 250 Balance 250 Intake: Intake, IV Titration 250 Amount Vancomycin 1,500 mg In 250 Sodium Chloride 0.9% 250 ml @ 125 mls/hr IVPB ONCE ONE Rx#:[id number] Other: Voiding Method Toilet Toilet Toilet # Voids 4 2 # Bowel Movements 3 2 On examination is awake alert oriented somewhat hard of hearing. HEENT exam no JVP, neck is supple no facial asymmetry Lungs clear to auscultation good air entry bilaterally Heart sounds are unremarkable for any murmur rub gallop Abdomen soft nontender Extremity exam was no edema Neurologically awake alert oriented somewhat hard of hearing - Labs CBC & Chem 7: 02/06/20 08:07 02/06/20 08:07 Labs: Abnormal Lab Results - Last 24 Hours (Table) 02/05/20 02/05/20 02/05/20 Range/Units 05:07 11:39 16:31 RBC (3.80-5.40) m/uL MCV (80.0-100.0) fL Sodium (137-145) mmol/L BUN (7-17) mg/dL Creatinine (0.52-1.04) mg/dL Glucose (74-99) mg/dL POC Glucose (mg/dL) 153 H 142 H (75-99) mg/dL Stool Lactoferrin POSITIVE H (NEGATIVE) 02/05/20 02/06/20 02/06/20 Range/Units 21:27 07:13 08:07 RBC 3.47 L (3.80-5.40) m/uL MCV 103.3 H (80.0-100.0) fL Sodium (137-145) mmol/L BUN (7-17) mg/dL Creatinine (0.52-1.04) mg/dL Glucose (74-99) mg/dL POC Glucose (mg/dL) 150 H 132 H (75-99) mg/dL Stool Lactoferrin (NEGATIVE) 02/06/20 Range/Units 08:07 RBC (3.80-5.40) m/uL MCV (80.0-100.0) fL Sodium 136 L (137-145) mmol/L BUN 44 H (7-17) mg/dL Creatinine 4.43 H (0.52-1.04) mg/dL Glucose 129 H (74-99) mg/dL POC Glucose (mg/dL) (75-99) mg/dL Stool Lactoferrin (NEGATIVE) Microbiology - Last 24 Hours (Table) 02/05/20 05:07 Stool Culture - Preliminary Stool 02/04/20 14:45 Blood Culture Gram Stain - Preliminary Blood Blood Culture - Preliminary Coagulase Negative Staph 02/04/20 12:16 Urine Culture - Preliminary Urine,Catheterized Gram Neg Bacilli 02/04/20 14:45 Blood Culture - Final Blood Assessment and Plan Assessment: Impression 1. ESRD on dialysis Friday and Friday stable and 2. Admitted with gastroenteritis, improving 3. asymptomatic recurrent and frequent and urinary tract infection with E. coli with urinalysis with pyuria. Currently on Invanz 4 Anemia of ESRD hemoglobin 11.8 > 1.4 at above target 4. Electrolytes normal except for sodium of 136. 5. Calcium and phosphorous control 8.9 and 4.5 Recommendation Patient can be discharged home as soon as she feels better today or tomorrow.. Maintain dialysis schedule No need for IV fluids as she is eating well
[2020-02-06 11:39] LABS: Glucose,Whole Blood 174 mg/dL (75-99)
[2020-02-06] MEDS ORDERED: VANCOMYCIN 1,500 MG in SODIUM CHLORIDE 0.9% 250 ML IVPB ONE (12:00)
--- NOTE | 2020-02-06 12:10 | P.PN ---
Subjective Progress Note Date: 02/06/20 Patient seen and examined at bedside while getting an ultrasound of her kidneys. Patient is resting comfortably. Patient continues to have 1-2 bowel movements of loose stools in the morning. Stool cultures were negative. She will be given Questran for loose stools. She denies chest pain, shortness of breath, nausea, vomiting, fever, or chills Objective - Vital Signs Vital signs: Vital Signs Temp 98.0 F 02/06/20 02:10 Pulse 67 02/06/20 02:10 Resp 16 02/05/20 20:15 BP 130/61 02/06/20 02:10 Pulse Ox 96 02/06/20 02:10 Intake & Output 02/05/20 02/06/20 02/06/20 18:59 06:59 18:59 Intake Total 250 Balance 250 Intake: Intake, IV Titration 250 Amount Vancomycin 1,500 mg In 250 Sodium Chloride 0.9% 250 ml @ 125 mls/hr IVPB ONCE ONE Rx#:[id number] Other: Voiding Method Toilet Toilet Toilet # Voids 4 2 # Bowel Movements 3 2 - Exam General: [non toxic], [no distress], [appears at stated age] Derm: [warm], [dry] Head: [atraumatic], [normocephalic], [symmetric] Eyes: [EOMI], [no lid lag], [anicteric sclera] Mouth: [no lip lesion], [mucus membranes moist] Cardiovascular: [S1S2 reg], [no murmur], [positive posterior tibial pulse bilateral], Lungs: [CTA bilateral], [no rhonchi, no rales] , [no accessory muscle use] Abdominal: [soft], [ nontender to palpation], [no guarding], [no appreciable organomegaly] Ext: [no gross muscle atrophy], [no edema], [no contractures] Neuro: [ CN II-XI grossly intact], [no focal neuro deficits] Psych: [Alert], [oriented], [appropriate affect]. - Labs CBC & Chem 7: 02/06/20 08:07 02/06/20 08:07 Labs: Abnormal Lab Results - Last 24 Hours (Table) 02/05/20 02/05/20 02/05/20 Range/Units 05:07 16:31 21:27 RBC (3.80-5.40) m/uL MCV (80.0-100.0) fL Sodium (137-145) mmol/L BUN (7-17) mg/dL Creatinine (0.52-1.04) mg/dL Glucose (74-99) mg/dL POC Glucose (mg/dL) 142 H 150 H (75-99) mg/dL Stool Lactoferrin POSITIVE H (NEGATIVE) 02/06/20 02/06/20 02/06/20 Range/Units 07:13 08:07 08:07 RBC 3.47 L (3.80-5.40) m/uL MCV 103.3 H (80.0-100.0) fL Sodium 136 L (137-145) mmol/L BUN 44 H (7-17) mg/dL Creatinine 4.43 H (0.52-1.04) mg/dL Glucose 129 H (74-99) mg/dL POC Glucose (mg/dL) 132 H (75-99) mg/dL Stool Lactoferrin (NEGATIVE) 02/06/20 Range/Units 11:37 RBC (3.80-5.40) m/uL MCV (80.0-100.0) fL Sodium (137-145) mmol/L BUN (7-17) mg/dL Creatinine (0.52-1.04) mg/dL Glucose (74-99) mg/dL POC Glucose (mg/dL) 174 H (75-99) mg/dL Stool Lactoferrin (NEGATIVE) Microbiology - Last 24 Hours (Table) 02/05/20 05:07 Stool Culture - Preliminary Stool 02/04/20 14:45 Blood Culture Gram Stain - Preliminary Blood Blood Culture - Preliminary Coagulase Negative Staph 02/04/20 12:16 Urine Culture - Preliminary Urine,Catheterized Gram Neg Bacilli 02/04/20 14:45 Blood Culture - Final Blood Assessment and Plan Assessment: 1. Nausea and diarrhea improved Stool cultures negative Zofran when necessary questran for loose stools 2. UTI with history of ESBL Continue ertapenem ID recommendations appreciated 3. End-stage renal disease hemodialysis Friday nephrology recommendations appreciated 4. Diabetes mellitus well controlled Most recent hemoglobin A1c was 6.6 in October of this year Insulin sliding scale Diabetic diet 5. Hypothyroid on levothyroxine 6. History of congestive heart failure, coronary artery disease, hyperlipidemia, GERD, and hypertension continue current home meds 7. History of chronic back pain with RA Tylenol when necessary pain 8. History of vitamin D deficiency Continue replacement therapy 9. GI and DVT prophylaxis 10. A.m. labs
--- NOTE | 2020-02-06 16:15 | PN ---
PROGRESS NOTE DATE OF SERVICE: 02/06/2020 REASON FOR FOLLOWUP: 1. Urinary tract infection. 2. Bacteremia. INTERVAL HISTORY: The patient is currently afebrile. The patient is breathing comfortably. The patient's urinary symptom has slightly improved. No chest pain, shortness of breath or cough. No abdominal pain. Still having diarrhea. PHYSICAL EXAMINATION: Blood pressure 130/61 with a pulse of 67, temperature 98. She is 96% on room air. General description is an elderly female lying in bed in no distress. Respiratory system: Unlabored breathing, clear to auscultation anteriorly. Heart S1, S2. Regular rate and rhythm. Abdomen soft, no tenderness. LABS: Hemoglobin 11.4, white count 7.3, creatinine 4.43. DIAGNOSTIC IMPRESSION AND PLAN: 1. Patient with admission to the hospital for urinary tract infection in this patient who did have a history of recurrent UTIs. Urine showing a Gram-negative and sensitivities. Ultrasound negative for any hydronephrosis, did show cyst in the left kidney. We will keep the patient on Invanz while waiting for the culture to finalize. 2. Patient positive blood culture with coagulase negative staph. Did have a Perm-A- Cath. We will follow up on the repeat culture. Keep the patient on vancomycin and monitor clinical course closely. MMODL / IJN: [id number] /
[2020-02-06 16:48] LABS: Glucose,Whole Blood 161 mg/dL (75-99)
[2020-02-06] MEDS: ATENOLOL 25 MG TAB PO SCH (20:20)
[2020-02-06 20:53] LABS: Glucose,Whole Blood 157 mg/dL (75-99)
[2020-02-07] MEDS: LEVOTHYROXINE 100 MCG TAB PO SCH (06:23)
[2020-02-07 07:12] LABS: Glucose,Whole Blood 143 mg/dL (75-99)
[2020-02-07 07:38] LABS: Basophils % (A) 0 %; Eosinophils # (A) 0.2 k/uL (0-0.7); Eosinophils % (A) 3 %; HGB 10.6 gm/dL (11.4-16.0); Lymphocytes # (A) 1.7 k/uL (1.0-4.8); Lymphocytes % (A) 25 %; MCH 32.9 pg (25.0-35.0); MCHC 32.1 g/dL (31.0-37.0); MCV 102.5 fL (80.0-100.0); Macrocytosis Slight; Mean Platelet Volume 7.9; Monocytes # (A) 0.4 k/uL (0-1.0); Monocytes % (A) 5 %; Neutrophils # (A) 4.4 k/uL (1.3-7.7); Neutrophils % (A) 65 %; Platelet Count 157 k/uL (150-450); RBC 3.22 m/uL (3.80-5.40); RDW 15.2 % (11.5-15.5); WBC 6.8 k/uL (3.8-10.6)
[2020-02-07 07:39] LABS: Calcium 8.4 mg/dL (8.4-10.2); Potassium 3.6 mmol/L (3.5-5.1)
[2020-02-07] MEDS: PANTOPRAZOLE 40 MG TABLET PO SCH (08:47)
[2020-02-07] MEDS: ATORVASTATIN 10 MG TAB PO SCH (08:47)
[2020-02-07] MEDS: CHOLECALCIFEROL 1,000 UNIT TAB PO SCH (08:47)
[2020-02-07] MEDS: ALLOPURINOL 100 MG TAB PO SCH (08:47)
[2020-02-07] MEDS: FOLIC ACID-VIT B COMPLEX-VIT C 1 CAP PO SCH (08:47)
[2020-02-07] MEDS: FLECAINIDE 50 MG TAB PO SCH ×2 (08:47→20:29)
[2020-02-07] MEDS: ERTAPENEM 0.5 GM in SODIUM CHLORIDE 0.9% 50 ML IVPB SCH (08:47)
[2020-02-07] MEDS: ATENOLOL 50 MG TAB PO SCH (08:48)
[2020-02-07] MEDS: INSULIN ASPART (NovoLOG) 100 UNIT/ML VIAL SQ SCH ×3 (08:48→17:09)
[2020-02-07] MEDS: CHOLESTYRAMINE (WITH SUGAR) 4 GM PACKET PO SCH (08:58)
[2020-02-07] MEDS: APIXABAN 2.5 MG TABLET PO SCH ×2 (08:58→20:28)
[2020-02-07 09:10] LABS: Vancomycin,Random 24.1 ug/mL
[2020-02-07 11:22] LABS: Glucose,Whole Blood 148 mg/dL (75-99)
--- NOTE | 2020-02-07 11:28 | P.PN ---
Subjective patient is seen in follow-up for end-stage liver disease. She is maintained on hemodialysis on Friday schedule. Continues to complain of diarrhea. States she is having 4-5 loose bowel movements daily. No vomiting. Tolerating oral intake. Vital signs are stable. General: The patient appeared well nourished and normally developed. HEENT: Head exam is unremarkable. Neck is without jugular venous distension. LUNGS: Lungs are clear to auscultation and percussion. Breath sounds decreased. HEART: Rate and Rhythm are regular. ABDOMEN: Soft, nontender. EXTREMITITES: No clubbing, cyanosis, or edema. Objective - Vital Signs Vital signs: Vital Signs Temp 97.8 F 02/07/20 06:55 Pulse 71 02/07/20 06:55 Resp 16 02/07/20 06:55 BP 104/62 02/07/20 06:55 Pulse Ox 96 02/07/20 06:55 Intake & Output 02/06/20 02/07/20 02/07/20 18:59 06:59 18:59 Intake Total 120 Balance 120 Intake: Oral 120 Other: Voiding Method Toilet Toilet # Voids 1 # Bowel Movements 2 - Labs CBC & Chem 7: 02/07/20 07:02 02/07/20 07:02 Labs: Abnormal Lab Results - Last 24 Hours (Table) 02/06/20 02/06/20 02/06/20 Range/Units 11:37 16:46 20:52 RBC (3.80-5.40) m/uL Hgb (11.4-16.0) gm/dL Hct (34.0-46.0) % MCV (80.0-100.0) fL Sodium (137-145) mmol/L BUN (7-17) mg/dL Creatinine (0.52-1.04) mg/dL Glucose (74-99) mg/dL POC Glucose (mg/dL) 174 H 161 H 157 H (75-99) mg/dL 02/07/20 02/07/20 02/07/20 Range/Units 06:53 07:02 07:02 RBC 3.22 L (3.80-5.40) m/uL Hgb 10.6 L (11.4-16.0) gm/dL Hct 33.0 L (34.0-46.0) % MCV 102.5 H (80.0-100.0) fL Sodium 135 L (137-145) mmol/L BUN 51 H (7-17) mg/dL Creatinine 5.23 H (0.52-1.04) mg/dL Glucose 143 H (74-99) mg/dL POC Glucose (mg/dL) 143 H (75-99) mg/dL 02/07/20 Range/Units 11:05 RBC (3.80-5.40) m/uL Hgb (11.4-16.0) gm/dL Hct (34.0-46.0) % MCV (80.0-100.0) fL Sodium (137-145) mmol/L BUN (7-17) mg/dL Creatinine (0.52-1.04) mg/dL Glucose (74-99) mg/dL POC Glucose (mg/dL) 148 H (75-99) mg/dL Microbiology - Last 24 Hours (Table) 02/05/20 17:09 Blood Culture - Preliminary Blood No Growth after 24 hours 02/04/20 12:16 Urine Culture - Final Urine,Catheterized Escherichia coli 02/05/20 05:07 Stool Culture - Preliminary Stool Assessment and Plan Plan: Assessment: 1. End-stage renal disease maintained on hemodialysis on Friday schedule. 2. UTI with urine culture positive for E. coli maintained on antibiotics. 3. Coag-negative staph bacteremia maintained on vancomycin. Repeat culture neg ative. 4. Diarrhea. C. diff negative. Stool lactoferrin positive. Maintain on Imodium and Questran. 5. Diabetes mellitus. Plan: Hemodialysis today. Avoid excessive ultrafiltration due to diarrhea. Patient does not appear volume overloaded at this time. Follow-up cultures.
--- NOTE | 2020-02-07 14:18 | P.PN ---
Subjective Progress Note Date: 02/07/20 Principal diagnosis: Diarrhea Patient was seen and examined. No acute events overnight. Patient reports 4 bowel movements this morning. Described as liquid brown. She denies any jorden blood or melena. She denies any chest pain, shortness of breath or palpitations. No nausea or vomiting. Tolerating oral intake. Objective - Vital Signs Vital signs: Vital Signs Temp 97.8 F 02/07/20 06:55 Pulse 71 02/07/20 06:55 Resp 16 02/07/20 06:55 BP 104/62 02/07/20 06:55 Pulse Ox 96 02/07/20 06:55 Intake & Output 02/06/20 02/07/20 02/07/20 18:59 06:59 18:59 Intake Total 120 50 Balance 120 50 Intake: Intake, IV Titration 50 Amount Ertapenem 0.5 gm In 50 Sodium Chloride 0.9% 50 ml @ 100 mls/hr IVPB DAILY [facility] Rx#:[id number] Oral 120 Other: Voiding Method Toilet Toilet Toilet # Voids 1 # Bowel Movements 2 3 - Exam General: [non toxic], [no distress], [appears at stated age] Derm: [warm], [dry] Head: [atraumatic], [normocephalic], [symmetric] Eyes: [EOMI], [no lid lag], [anicteric sclera] Mouth: [no lip lesion], [mucus membranes moist] Cardiovascular: [S1S2 reg], [no murmur], [positive DP pulse bilateral], Lungs: [CTA bilateral], [no rhonchi, no rales] , [no accessory muscle use] Abdominal: [soft], [ nontender to palpation], [no guarding], [no appreciable organomegaly], [hyperactive bowel sounds] Ext: [no gross muscle atrophy], [1+ pitting lower extremity edema], [no contractures] Neuro: [no focal neuro deficits] Psych: [Alert], [oriented], [appropriate affect] - Labs CBC & Chem 7: 02/07/20 07:02 02/07/20 07:02 Labs: Abnormal Lab Results - Last 24 Hours (Table) 02/05/20 02/06/20 02/06/20 Range/Units 09:14 16:46 20:52 RBC (3.80-5.40) m/uL Hgb (11.4-16.0) gm/dL Hct (34.0-46.0) % MCV (80.0-100.0) fL Sodium (137-145) mmol/L BUN (7-17) mg/dL Creatinine (0.52-1.04) mg/dL Glucose (74-99) mg/dL POC Glucose (mg/dL) 161 H 157 H (75-99) mg/dL Vit D 1,25-Dihydroxy 14 L (20 - 79) pg/mL 02/07/20 02/07/20 02/07/20 Range/Units 06:53 07:02 07:02 RBC 3.22 L (3.80-5.40) m/uL Hgb 10.6 L (11.4-16.0) gm/dL Hct 33.0 L (34.0-46.0) % MCV 102.5 H (80.0-100.0) fL Sodium 135 L (137-145) mmol/L BUN 51 H (7-17) mg/dL Creatinine 5.23 H (0.52-1.04) mg/dL Glucose 143 H (74-99) mg/dL POC Glucose (mg/dL) 143 H (75-99) mg/dL Vit D 1,25-Dihydroxy (20 - 79) pg/mL 02/07/20 Range/Units 11:05 RBC (3.80-5.40) m/uL Hgb (11.4-16.0) gm/dL Hct (34.0-46.0) % MCV (80.0-100.0) fL Sodium (137-145) mmol/L BUN (7-17) mg/dL Creatinine (0.52-1.04) mg/dL Glucose (74-99) mg/dL POC Glucose (mg/dL) 148 H (75-99) mg/dL Vit D 1,25-Dihydroxy (20 - 79) pg/mL Microbiology - Last 24 Hours (Table) 02/05/20 17:09 Blood Culture - Preliminary Blood No Growth after 24 hours 02/04/20 12:16 Urine Culture - Final Urine,Catheterized Escherichia coli 02/05/20 05:07 Stool Culture - Preliminary Stool Assessment and Plan Assessment: Nausea and diarrhea UTI with history of ESBL Bacteremia ESRD on hemodialysis Friday Diabetes mellitus Chronic conditions: Hypothyroidism, AFib, history of CHF, CAD, dyslipidemia, GERD, hypertension Patient stool culture has been negative. C. diff negative 2. Stool lactoferrin positive. Stool for occult blood negative. Plans: Continue Questran scheduled. Imodium as needed for diarrhea. Zofran as needed for nausea or vomiting. Urine culture positive for ESBL. Plans: Discussed with Dr. Ayon, plans for Invanz 500 mg daily for 10 more days. Patient will need PICC line. Coagulase-negative staph seen on blood culture. Likely contaminant. Plans: Repeat blood culture negative at 24 hours. Continue vancomycin dosed per pha rmacy. ID following. Creatinine 5.23. Plans: Resume hemodialysis Friday schedule. Nephrology following. [id number] glucose 148. Plans: Insulin sliding scale. Regular Accu-Cheks. Hypoglycemic precautions. Restart flecainide and Eliquis for A. fib. Lipitor restarted for CAD and dyslipidemia. Restart atenolol for history of CHF. Restart Protonix for history of GERD. [Patient with continued diarrhea, slightly improved from admission, workup unrevealing so far. She will need PICC line for IV antibiotics (ESBL UTI and staph bacteremia). Plans for [facility]. Anticipate DC in 1-2 days.]
[2020-02-07] MEDS ORDERED: TORSEMIDE 20 MG TAB PO SCH (16:00)
[2020-02-07 16:35] LABS: Glucose,Whole Blood 89 mg/dL (75-99)
--- NOTE | 2020-02-07 16:55 | CDI ---
Documentation Clarification Form Date: 02/07/2020 04:27:35 PM From: Bonita Newton RN, CCDS Admit Date: 02/06/2020 09:58:00 AM Patient Name: Yamilet Lopez Visit Number: [id number] Discharge Date: ATTENTION: The Clinical Documentation Specialists (CDI) and [facility] Coding Staff appreciate your assistance in clarifying documentation. Please respond to the clarification below the line at the bottom and electronically sign. The CDI & [facility] Coding staff will review the response and follow-up if needed. Please note: Queries are made part of the Legal Health Record. If you have any questions, please contact the author of this message via ITS. Dr. Sandra Washington CHF is documented in the past medical history your H/P and subsequent progress notes and clarification is requests for the acuity and the type of CHF if known. History/Risk Factors: ESRD on HD, Hypertension Congestive heart failure, Diabetes Mellitus, Coronary artery disease. Clinical Indicators: 84-year-old female who present with nausea and diarrhea. She has a past medical history per progress notes of CHF with current treatment. 02/06/20 VS/Pulse OX: 155/63 63 18 97.4 10/25/19 Echocardiogram Results: Paced rhythm. Overall left ventricular systolic function is normal with, an EF between 55-60 % Treatment: Demadex 40 mg po MoWeFr [facility] Demadex 40 mg poSuTuTh [facility] Lipitor 10 mg po daily Tenormin 25 mg po [facility] In your professional opinion, can you please clarify the acuity and type of CHF if known? Diastolic Heart Failure: Acute Chronic Acute on Chronic Systolic Heart Failure: Acute Chronic Acute on Chronic Systolic & Diastolic Heart Failure: Acute Chronic Acute on Chronic Heart Failure Unable to Determine Other, please specify (Last Revision: November 2017) Patient does not have CHF according to her last Echocardiogram MTDD
[2020-02-07] MEDS: ATENOLOL 25 MG TAB PO SCH (20:28)
[2020-02-07 20:37] LABS: Glucose,Whole Blood 169 mg/dL (75-99)
--- NOTE | 2020-02-08 03:27 | PN ---
PROGRESS NOTE DATE OF SERVICE: 02/07/2020 REASON FOR FOLLOWUP: 1. ESBL E coli urinary tract infection. 2. Positive blood culture with Coagulase Negative Staph. INTERVAL HISTORY: The patient is currently afebrile. She is feeling better. Breathing comfortably. Denies having any chest pain or shortness of breath or cough. No abdominal pain. Still has some diarrhea though her urinary symptoms have improved. PHYSICAL EXAMINATION: Blood pressure 122/63 with a pulse of 61, temperature 97.6. She is 95% on room air. General description is an elderly female up in the chair in no distress. RESPIRATORY SYSTEM: Unlabored breathing, clear to auscultation anteriorly. HEART: S1, S2. Regular rate and rhythm. ABDOMEN: Soft, no tenderness. LABS: Hemoglobin 10.6, white count 6.8, BUN of 51, creatinine 5.23. DIAGNOSTIC IMPRESSION AND PLAN: 1. Patient with ESBL Escherichia coli urinary tract infection. This patient clinically responded to Invanz which will continue through a Midline for another 10 days to finish the course of therapy. 2. Patient with a positive blood culture with coagulase negative staph, possible contamination. Repeat blood culture has been negative. We will discontinue the vancomycin. MMODL / IJN: [id number] /
[2020-02-08] MEDS: LEVOTHYROXINE 100 MCG TAB PO SCH (06:01)
[2020-02-08] MEDS: ERTAPENEM 0.5 GM in SODIUM CHLORIDE 0.9% 50 ML IVPB SCH (07:23)
[2020-02-08] MEDS: PANTOPRAZOLE 40 MG TABLET PO SCH (07:24)
[2020-02-08] MEDS: FOLIC ACID-VIT B COMPLEX-VIT C 1 CAP PO SCH (07:24)
[2020-02-08] MEDS: ATORVASTATIN 10 MG TAB PO SCH (07:24)
[2020-02-08] MEDS: ATENOLOL 50 MG TAB PO SCH (07:24)
[2020-02-08] MEDS: TORSEMIDE 20 MG TAB PO SCH (07:25)
[2020-02-08] MEDS: CHOLECALCIFEROL 1,000 UNIT TAB PO SCH (07:25)
[2020-02-08] MEDS: FLECAINIDE 50 MG TAB PO SCH (07:25)
[2020-02-08] MEDS: APIXABAN 2.5 MG TABLET PO SCH (07:25)
[2020-02-08] MEDS: ALLOPURINOL 100 MG TAB PO SCH (07:25)
[2020-02-08] MEDS: CHOLESTYRAMINE (WITH SUGAR) 4 GM PACKET PO SCH (07:26)
[2020-02-08 07:34] LABS: Glucose,Whole Blood 124 mg/dL (75-99)
[2020-02-08] MEDS: INSULIN ASPART (NovoLOG) 100 UNIT/ML VIAL SQ SCH ×2 (07:49→12:08)
[2020-02-08 08:41] VITALS: BP 112/63; PULSE 63; RESP 16; TEMP 98
[2020-02-08 08:44] LABS: HCT 33.4 % (34.0-46.0); HGB 10.8 gm/dL (11.4-16.0); MCH 33.5 pg (25.0-35.0); MCHC 32.4 g/dL (31.0-37.0); MCV 103.5 fL (80.0-100.0); Macrocytosis Slight; Mean Platelet Volume 7.5; Platelet Count 166 k/uL (150-450); RBC 3.23 m/uL (3.80-5.40); RDW 15.1 % (11.5-15.5); WBC 7.8 k/uL (3.8-10.6)
[2020-02-08 08:47] LABS: Calcium 8.6 mg/dL (8.4-10.2); Potassium 3.6 mmol/L (3.5-5.1)
[2020-02-08 08:52] LABS: Vancomycin,Random 18.6 ug/mL
--- NOTE | 2020-02-08 11:14 | P.PN ---
Subjective patient is seen in follow-up for end-stage renal disease. She is maintained on hemodialysis on Friday schedule. Continues to complain of diarrhea but improved since admission. States she had about 3 bowel movements last night. No vomiting. Tolerating oral intake. Tolerated hemodialysis while yesterday. Vital signs are stable. General: The patient appeared well nourished and normally developed. HEENT: Head exam is unremarkable. Neck is without jugular venous distension. LUNGS: Lungs are clear to auscultation and percussion. Breath sounds decreased. HEART: Rate and Rhythm are regular. ABDOMEN: Soft, nontender. EXTREMITITES: No clubbing, cyanosis, or edema. Objective - Vital Signs Vital signs: Vital Signs Temp 98.0 F 02/08/20 07:00 Pulse 63 02/08/20 07:00 Resp 16 02/08/20 07:00 BP 112/63 02/08/20 07:00 Pulse Ox 94 L 02/08/20 07:00 Intake & Output 02/07/20 02/08/20 02/08/20 18:59 06:59 18:59 Intake Total 590 40 50 Output Total 500 Balance 90 40 50 Intake: IV 50 Ertapenem 0.5 gm In 50 Sodium Chloride 0.9% 50 ml @ 100 mls/hr IVPB DAILY [facility] Rx#:[id number] Intake, IV Titration 50 Amount Ertapenem 0.5 gm In 50 Sodium Chloride 0.9% 50 ml @ 100 mls/hr IVPB DAILY [facility] Rx#:[id number] Oral 540 20 Blood Product 20 Output: Hemodialysis 500 Other: Voiding Method Toilet Toilet # Voids 4 3 # Bowel Movements 3 1 - Labs CBC & Chem 7: 02/08/20 08:22 02/08/20 08:22 Labs: Abnormal Lab Results - Last 24 Hours (Table) 02/05/20 02/07/20 02/07/20 Range/Units 09:14 11:05 20:35 RBC (3.80-5.40) m/uL Hgb (11.4-16.0) gm/dL Hct (34.0-46.0) % MCV (80.0-100.0) fL Sodium (137-145) mmol/L BUN (7-17) mg/dL Creatinine (0.52-1.04) mg/dL Glucose (74-99) mg/dL POC Glucose (mg/dL) 148 H 169 H (75-99) mg/dL Vit D 1,25-Dihydroxy 14 L (20 - 79) pg/mL 02/08/20 02/08/20 02/08/20 Range/Units 07:24 08:22 08:22 RBC 3.23 L (3.80-5.40) m/uL Hgb 10.8 L (11.4-16.0) gm/dL Hct 33.4 L (34.0-46.0) % MCV 103.5 H (80.0-100.0) fL Sodium 136 L (137-145) mmol/L BUN 23 H (7-17) mg/dL Creatinine 3.39 H (0.52-1.04) mg/dL Glucose 150 H (74-99) mg/dL POC Glucose (mg/dL) 124 H (75-99) mg/dL Vit D 1,25-Dihydroxy (20 - 79) pg/mL Microbiology - Last 24 Hours (Table) 02/04/20 14:45 Blood Culture Gram Stain - Final Blood Blood Culture - Final Coagulase Negative Staph 02/05/20 17:09 Blood Culture - Preliminary Blood No Growth after 48 hours 02/05/20 05:07 Stool Culture - Preliminary Stool Monalisa albicans Assessment and Plan Plan: Assessment: 1. End-stage renal disease maintained on hemodialysis on Friday schedule. 2. UTI with urine culture positive for E. coli maintained on antibiotics. 3. Coag-negative staph bacteremia maintained on vancomycin. Repeat culture negative. 4. Diarrhea. C. diff negative. Stool lactoferrin positive. Stool culture positive for Monalisa. Maintain on Imodium and Questran. 5. Diabetes mellitus. Plan: Hemodialysis tomorrow. Follow-up cultures.
[2020-02-08 12:01] LABS: Glucose,Whole Blood 162 mg/dL (75-99)
--- NOTE | 2020-02-08 13:10 | P.DS ---
Providers Date of admission: 02/06/20 09:58 Expected date of discharge: 02/08/20 Attending physician: Yecenia Leon DO Consults: 02/04/20 13:47 Consult Physician Stat Consulting Provider: Denilson Alcocer Consult Reason/Comments: UTI, ESRD on HD Do you want consulting provider notified?: Yes 02/04/20 18:24 Consult Physician Routine Consulting Provider: Israel Ayon Consult Reason/Comments: UTI hx of esbl Do you want consulting provider notified?: Yes 02/06/20 07:16 Consult Physician Routine Consulting Provider: Israel Ayon Consult Reason/Comments: UTI with hx or esbl Do you want consulting provider notified?: Yes Primary care physician: Phil Blood [facility] Course: This is a pleasant 84-year-old female who presents to [facility] with increased nausea and diarrhea since this Friday after dialysis. Past medical history includes end-stage renal disease hemodialysis Friday, congestive heart failure, pacemaker placement, diabetes, hypertension, hyperlipidemia, CAD, RA, GERD, sleep apnea on CPAP, chronic back pain and hypothyroidism. Patient started dialysis 3 months ago, had an AV fistula in her right upper extremity placed this past Friday. Patient states she has loose stools about 5 times a day. Patient wasn't able to go to her dialysis treatment today he cause of her diarrhea. As a result she was informed by her primary to go to the hospital. Patient denies hematochezia, melena, or watery stools. Patient further denies chest pain shortness of breath fever chills. UA in the ER revealed turbid urine with many bacteria white blood cells and red blood cells. Patient has a known history of recurrent ESBL UTI and will be place him. Antibiotics during hospital stay. Patient currently denies urinary symptoms. Patient was mildly hyponatremic at 133 BUN 63 creatinine 4.77 glucose 109. She was ruled out for infectious cause of diarrhea. C. diff was negative 2. Stool lactoferrin was positive. Stool for occult blood was negative. Stool culture was negative. She was started on Questran and given Imodium as needed for diarrhea. Her diarrhea slowly improved during her hospitalization. Her urine culture was positive for ESBL. She was started on Invanz and infectious disease was consulted. Her initial blood culture did grow coagulase- negative staph which was thought to be related to contaminant. Her repeat blood cultures were negative at 48 hours. Infectious disease recommended completing 10 days of Invanz IV in the outpatient setting. Nephrology was consulted to resume hemodialysis on a Friday schedule. PT and OT was consulted and social work was involved, patient was agreeable for [facility]. Patient was started on insulin sliding scale along with regular Accu-Cheks and hypoglycemic precautions for her diabetes mellitus. Her medications were resumed for A. fib, CAD, dyslipidemia, GERD and history of CHF. Patient was seen and examined. No acute events overnight. Patient reports 1 bowel movement today, more formed stool and yesterday. She denies any chest pain, shortness of breath or palpitations. No nausea or vomiting. No fever or chills. General: [non toxic], [no distress], [appears at stated age] Derm: [warm], [dry] Head: [atraumatic], [normocephalic], [symmetric] Eyes: [EOMI], [no lid lag], [anicteric sclera] Mouth: [no lip lesion], [mucus membranes moist] Cardiovascular: [S1S2 reg], [no murmur], [positive DP pulse bilateral], [right chest port] Lungs: [CTA bilateral], [no rhonchi, no rales] , [no accessory muscle use] Abdominal: [soft], [ nontender to palpation], [no guarding], [no appreciable organomegaly], [hyperactive bowel sounds] Ext: [no gross muscle atrophy], [1+ pitting lower extremity edema], [no contractures], [right upper extremity surgical scar with harmeet intact healing well with no erythema] Neuro: [no focal neuro deficits] Psych: [Alert], [oriented], [appropriate affect] Nausea and diarrhea UTI with history of ESBL Bacteremia ESRD on hemodialysis Friday Diabetes mellitus Chronic conditions: Hypothyroidism, AFib, history of CHF, CAD, dyslipidemia, GERD, hypertension Patient stool culture has been negative. C. diff negative 2. Stool lactoferrin positive. Stool for occult blood negative. Plans: Continue Questran scheduled. Imodium as needed for diarrhea. Zofran as needed for nausea or vomiting. Urine culture positive for ESBL. Plans: Discussed with Dr. Gabo, plans for Invanz 500 mg daily for 10 more days. Patient will need PICC line. Coagulase-negative staph seen on blood culture. Likely contaminant. Plans: Repeat blood culture negative at 48 hours. DC vancomycin and continue Invanz for 10 more days. ID following. Creatinine 3.39. Plans: Resume hemodialysis Friday schedule. Nephrology following. [id number] glucose 162. Plans: Insulin sliding scale. Regular Accu-Cheks. Hypoglycemic precautions. Restart flecainide and Eliquis for A. fib. Lipitor restarted for CAD and dyslipidemia. Restart atenolol for history of CHF. Restart Protonix for history of GERD. [Patient with continued diarrhea, slightly improved from admission, workup unrevealing so far. She will need PICC line for IV antibiotics (ESBL UTI and staph bacteremia). Plans for [facility]. Anticipate DC today. This complex discharge took about 45 minutes to complete.] Pertinent Studies: KUB, bladder ultrasound Procedures: Midline Patient Condition at Discharge: Stable Plan - Discharge Summary Discharge Rx Participant: No New Discharge Prescriptions: New Ipratropium-Albuterol Nebulize [Duoneb 0.5 mg-3 mg/3 ml Soln] 3 ml INHALATION RT-QID PRN ml PRN Reason: Shortness Of Breath Or Wheezing Ertapenem [INVanz] 0.5 gm IVPB DAILY #10 vial Cholestyramine (with Sugar) [Questran Packet] 4 gm PO DAILY@1000 packet Continue Levothyroxine Sodium [Synthroid] 100 mcg PO DAILY Flecainide [Tambocor] 50 mg PO BID Allopurinol [Zyloprim] 100 mg PO DAILY Atenolol [Tenormin] 50 mg PO QAM Acetaminophen [Tylenol] 1,000 mg PO Q8H PRN PRN Reason: Pain Or Fever > 100.5 Cholecalciferol (Vitamin D3) [Vitamin D3] 4,000 unit PO DAILY Pantoprazole [Protonix] 40 mg PO DAILY Apixaban [Eliquis] 2.5 mg PO BID tablet Ondansetron [Zofran] 4 mg PO Q8HR PRN PRN Reason: Nausea Loperamide HCl [Loperamide] 2 mg PO DAILY PRN PRN Reason: Diarrhea Folic Acid-Vit B Complex-Vit C [Nephrocaps] 1 cap PO DAILY Torsemide [Demadex] 40 mg PO DIRECTED Atenolol [Tenormin] 25 mg PO HS Simvastatin [Zocor] 20 mg PO DAILY Insulin Lispro [humaLOG Kwikpen] See Protocol SQ AC-TID Discharge Medication List Levothyroxine Sodium [Synthroid] 100 mcg PO DAILY 01/31/14 [History] Flecainide [Tambocor] 50 mg PO BID 10/12/16 [History] Allopurinol [Zyloprim] 100 mg PO DAILY 01/18/17 [History] Atenolol [Tenormin] 50 mg PO QAM 10/10/17 [History] Acetaminophen [Tylenol] 1,000 mg PO Q8H PRN 05/22/18 [History] Cholecalciferol (Vitamin D3) [Vitamin D3] 4,000 unit PO DAILY 05/26/19 [History] Pantoprazole [Protonix] 40 mg PO DAILY 08/16/19 [History] Apixaban [Eliquis] 2.5 mg PO BID tablet 11/02/19 [Rx] Atenolol [Tenormin] 25 mg PO HS 02/04/20 [History] Folic Acid-Vit B Complex-Vit C [Nephrocaps] 1 cap PO DAILY 02/04/20 [History] Insulin Lispro [humaLOG Kwikpen] See Protocol SQ AC-TID 02/04/20 [History] Loperamide HCl [Loperamide] 2 mg PO DAILY PRN 02/04/20 [History] Ondansetron [Zofran] 4 mg PO Q8HR PRN 02/04/20 [History] Simvastatin [Zocor] 20 mg PO DAILY 02/04/20 [History] Torsemide [Demadex] 40 mg PO DIRECTED 02/04/20 [History] Cholestyramine (with Sugar) [Questran Packet] 4 gm PO DAILY@1000 packet 02/08/20 [Rx] Ertapenem [INVanz] 0.5 gm IVPB DAILY #10 vial 02/08/20 [Rx] Ipratropium-Albuterol Nebulize [Duoneb 0.5 mg-3 mg/3 ml Soln] 3 ml INHALATION RT-QID PRN ml 02/08/20 [Rx] Follow up Appointment(s)/Referral(s): Phil Blood MD [Primary Care Provider] - 1-2 days Sofia Child MD [STAFF PHYSICIAN] - 1 Week (patient will see at Dialysis center at [facility] at [phone]) Israel Ayon MD [STAFF PHYSICIAN] - 02/15/20 10:00 am Patient Instructions/Handouts: Urinary Tract Infection in Women (DC), How to Care for Your Midline Catheter (DC) Activity/Diet/Wound Care/Special Instructions: Diet: Low fiber, Diabetic, Renal FU with PCP within 3 days of DC. Take Questran and Imodium as needed for diarrhea. Take Invanz 500 mg IV QD x 10 days. Resume hemodialysis MonWedFri Discharge Disposition: TRANSFER TO SNF/ECF
--- NOTE | 2020-02-08 14:02 | PN ---
PROGRESS NOTE DATE OF SERVICE: 02/08/2020 REASON FOR FOLLOWUP: ESBL E coli urinary tract infection. INTERVAL HISTORY: The patient is currently afebrile, patient is breathing comfortably. Denies having any chest pain or cough. No nausea. No abdominal pain. Urinary symptoms have improved and diarrhea has slowed down. PHYSICAL EXAMINATION: Blood pressure 120/60 with a pulse of 63, temperature 98. She is 94% on room air. General description is an elderly female, up in the chair in no distress. RESPIRATORY SYSTEM: Unlabored breathing, clear to auscultation anteriorly. HEART: S1, S2. Regular rate and rhythm. ABDOMEN: Soft, no tenderness. LABS: Hemoglobin is 10.8, white count of 7.8, creatinine is 3.39. DIAGNOSTIC IMPRESSION AND PLAN: 1. Patient with ESBL E coli intact infection, symptomatic in this patient who has shown some clinical improvement on Invanz. She will get a midline. Continue with Invanz 5 mg daily for another 10 days and close outpatient followup. 2. Positive blood culture with Staph epi likely contaminant. Vancomycin has been discontinued. MMODL / IJN: [id number] /
== END 2020-02-08 16:05 | DRG 689 ==
LOC: EC 10:57 → 4SSUR 15:31 → OBSVTOIN 02-06 09:58
PROVIDERS: ADMIT Internal Medicine; ATTEND Internal Medicine
PROC: 5A1D70Z Performance of Urinary Filtration, Intermittent, Less than 6 Hours Per Day (ICD-10-PCS; principal; 2020-02-04)
PROC: 05HF33Z Insertion of Infusion Device into Left Cephalic Vein, Percutaneous Approach (ICD-10-PCS; 2020-02-08 07:30)
DX: N39.0 Urinary tract infection, site not specified (principal); N18.6 End stage renal disease; Z16.12 Extended spectrum beta lactamase (ESBL) resistance; E87.1 Hypo-osmolality and hyponatremia; I13.2 Hypertensive heart and chronic kidney disease with heart failure and with stage 5 chronic kidney disease, or end stage renal disease; I48.20 Chronic atrial fibrillation, unspecified; R78.81 Bacteremia; I49.5 Sick sinus syndrome; D63.1 Anemia in chronic kidney disease; E11.22 Type 2 diabetes mellitus with diabetic chronic kidney disease; Z20.828 Contact with and (suspected) exposure to other viral communicable diseases; R31.9 Hematuria, unspecified; B96.20 Unspecified Escherichia coli [E. coli] as the cause of diseases classified elsewhere; E03.9 Hypothyroidism, unspecified; E78.5 Hyperlipidemia, unspecified; I25.10 Atherosclerotic heart disease of native coronary artery without angina pectoris; I25.2 Old myocardial infarction; K21.9 Gastro-esophageal reflux disease without esophagitis; K52.9 Noninfective gastroenteritis and colitis, unspecified; M06.9 Rheumatoid arthritis, unspecified; E55.9 Vitamin D deficiency, unspecified; G47.30 Sleep apnea, unspecified; G89.29 Other chronic pain; M19.90 Unspecified osteoarthritis, unspecified site; M54.9 Dorsalgia, unspecified; H91.90 Unspecified hearing loss, unspecified ear; Z79.01 Long term (current) use of anticoagulants; Z79.4 Long term (current) use of insulin; Z79.890 Hormone replacement therapy; Z79.899 Other long term (current) drug therapy; Z99.2 Dependence on renal dialysis; Z95.0 Presence of cardiac pacemaker; Z88.5 Allergy status to narcotic agent; Z88.0 Allergy status to penicillin; Z88.2 Allergy status to sulfonamides; Z90.710 Acquired absence of both cervix and uterus; Z98.42 Cataract extraction status, left eye; Z98.41 Cataract extraction status, right eye; Z87.440 Personal history of urinary (tract) infections; Z86.19 Personal history of other infectious and parasitic diseases; Z82.49 Family history of ischemic heart disease and other diseases of the circulatory system; Z80.9 Family history of malignant neoplasm, unspecified
CPT/HCPCS: 36410; 36415; 74018; 76770; 76937; 80048; 80053; 80202; 81001; 82272; 82652; 83605; 83630; 83690; 83735; 84100; 85025; 85027; 87040; 87045; 87046; 87077; 87086; 87186; 87324; 90935; 93005; 99285

== ENCOUNTER 2020-02-22 11:48 | Inpatient (IN) | payer MEDICARE ==
--- NOTE | 2020-02-22 12:13 | ED ---
General Adult HPI - General Chief complaint: Weakness Stated complaint: Weakness Time Seen by Provider: 02/22/20 11:51 Source: patient, EMS, RN notes reviewed Mode of arrival: EMS Limitations: no limitations - History of Present Illness Initial comments: This an 84-year-old female presents emergency Department from home chief complaint of weakness. Patient states that she feels so weak at this time secondary to diarrhea. Patient states that she is recently finished IV antibiotics through her PICC line. Patient states that every time she has UTI s he ended with diarrhea. Patient states that it's persistent loose stool last several days. Patient is on hemodialysis Friday and Friday. She states she did not go yesterday. She states that she feels like she is retaining fluid at this point. Patient denies any fevers or chills no chest pain no complains abdominal pain denies any melena hematochezia. Patient states that she also has temporary catheter for dialysis secondary to her fistula been corrected. - Related Data Home Medications Medication Instructions Recorded Confirmed Levothyroxine Sodium [Synthroid] 100 mcg PO HS@209901/31/14 02/22/20 Flecainide [Tambocor] 50 mg PO BID@0700,209910/12/16 02/22/20 Allopurinol [Zyloprim] 100 mg PO DAILY@0700 01/18/17 02/22/20 Atenolol [Tenormin] 50 mg PO DAILY@1200 10/10/17 02/22/20 Acetaminophen [Tylenol] 1,000 mg PO Q8H PRN MDD 3000 MG 05/22/18 02/22/20 Cholecalciferol (Vitamin D3) 4,000 unit PO DAILY@1200 05/26/19 02/22/20 [Vitamin D3] Pantoprazole [Protonix] 40 mg PO HS@209908/16/19 02/22/20 Atenolol [Tenormin] 25 mg PO HS@209902/04/20 02/22/20 Folic Acid-Vit B Complex-Vit C 1 cap PO DAILY@1700 02/04/20 02/22/20 [Nephrocaps] Insulin Lispro [humaLOG Kwikpen] See Protocol SQ AC-TID 02/04/20 02/22/20 Ondansetron [Zofran] 4 mg PO Q8HR PRN 02/04/20 02/22/20 Simvastatin [Zocor] 20 mg PO HS@2100 02/04/20 02/22/20 Torsemide [Demadex] 40 mg PO SUTUTHSA@0700 02/04/20 02/22/20 Apixaban [Eliquis] 2.5 mg PO BID@0700,1700 02/22/20 02/22/20 Banatrol Plus Packet 1 packet PO TID@0700,1200,1700 02/22/20 02/22/20 Kaopectate Susp 262 mg PO BID@0700,1900 02/22/20 02/22/20 Kaopectate Susp 262 mg PO DAILY PRN 02/22/20 02/22/20 Torsemide [Demadex] 40 mg PO MOWEFR@1300 02/22/20 02/22/20 Allergies Allergy/AdvReac Type Severity Reaction Status Date / Time Penicillins Allergy Rash/Hives Verified 02/22/20 13:00 Sulfa (Sulfonamide Allergy Rash/Hives Verified 02/22/20 13:00 Antibiotics) meperidine HCl [From Demerol] AdvReac Nausea & Verified 02/22/20 13:00 Vomiting Review of Systems ROS Statement: Those systems with pertinent positive or pertinent negative responses have been documented in the HPI. ROS Other: All systems not noted in ROS Statement are negative. Past Medical History Past Medical History: Atrial Fibrillation, Heart Failure, Diabetes Mellitus, GERD/Reflux, Hyperlipidemia, Hypertension, Myocardial Infarction (MO), Osteoa rthritis (OA), Renal Disease, Rheumatoid Arthritis (RA), Sleep Apnea/CPAP/BIPAP, Thyroid Disorder Additional Past Medical History / Comment(s): uti's,PALPITATIONS, Uses CPAP m achine. Sick Sinus Syndrome with pacemaker, chronic afib. Stage 4 kidney disease. Last Myocardial Infarction Date:: 32 years ago History of Any Multi-Drug Resistant Organisms: ESBL Date of last positivie culture/infection: 02/04/20 MDRO Source:: ESBL URINE Past Surgical History: Hysterectomy, Pacemaker Additional Past Surgical History / Comment(s): h emmorrhoidectomy/rectocele/cystocele, cataracts,. vein stripping x2, right arm fistula placement. Past Anesthesia/Blood Transfusion Reactions: No Reported Reaction Type of Cardiac Device: Permanent Pacemaker Device Placement Date:: 01/2017 Past Psychological History: No Psychological Hx Reported Smoking Status: Never smoker Past Alcohol Use History: None Reported Past Drug Use History: None Reported - Past Family History Father Family Medical History: Coronary Artery Disease (CAD), Hyperlipidemia, Hypertension, Myocardial Infarction (MO) Mother Family Medical History: Unable to Obtain Sister(s) Family Medical History: Cancer General Exam Limitations: no limitations General appearance: alert, in no apparent distress Head exam: Present: atraumatic, normocephalic, normal inspection Eye exam: Present: normal appearance, PERRL, EOMI. Absent: scleral icterus, conjunctival injection, periorbital swelling ENT exam: Present: normal exam, normal oropharynx, mucous membranes moist, TM's normal bilaterally Neck exam: Present: normal inspection, full ROM. Absent: tenderness, meningismus, lymphadenopathy Respiratory exam: Present: normal lung sounds bilaterally. Absent: respiratory distress, wheezes, rales, rhonchi, stridor Cardiovascular Exam: Present: regular rate, normal rhythm, normal heart sounds. Absent: systolic murmur, diastolic murmur, rubs, gallop, clicks GI/Abdominal exam: Present: soft, normal bowel sounds. Absent: distended, tenderness, guarding, rebound, rigid Extremities exam: Present: pedal edema Neurological exam: Present: alert, oriented X3 Skin exam: Present: warm, dry, intact, normal color. Absent: rash Course Vital Signs 02/22/20 11:58 Temperature 98.0 F Pulse Rate 78 Respiratory 16 Rate Blood Pressure 122/48 O2 Sat by Pulse 96 Oximetry Medical Decision Making - Medical Decision Making 84-year-old female presented for generalized weakness. Patient has weakness related to dehydration, hypokalemia. Patient also missed dialysis which her creatinine has gone from 3-6. Patient's has been on recent antibiotics and is concerning for possible C. diff. Patient will be admitted for hemodialysis, stool studies, lactate replacement and further evaluation. - Lab Data Result diagrams: 02/22/20 12:14 02/22/20 12:14 Lab Results 02/22/20 02/22/20 02/22/20 Range/Units 12:14 12:14 12:14 WBC 5.6 (3.8-10.6) k/uL RBC 3.03 L (3.80-5.40) m/uL Hgb 10.6 L (11.4-16.0) gm/dL Hct 31.1 L (34.0-46.0) % MCV 102.7 H (80.0-100.0) fL MCH 35.2 H (25.0-35.0) pg MCHC 34.2 (31.0-37.0) g/dL RDW 15.7 H (11.5-15.5) % Plt Count 199 (150-450) k/uL Neutrophils % 69 % Lymphocytes % 19 % Monocytes % 6 % Eosinophils % 4 % Basophils % 0 % Neutrophils # 3.8 (1.3-7.7) k/uL Lymphocytes # 1.1 (1.0-4.8) k/uL Monocytes # 0.3 (0-1.0) k/uL Eosinophils # 0.2 (0-0.7) k/uL Basophils # 0.0 (0-0.2) k/uL Macrocytosis Slight PT 10.7 (9.0-12.0) sec INR 1.0 (<1.2) APTT 24.8 (22.0-30.0) sec Sodium 139 (137-145) mmol/L Potassium 3.1 L (3.5-5.1) mmol/L Chloride 103 (98-107) mmol/L Carbon Dioxide 24 (22-30) mmol/L Anion Gap 12 mmol/L BUN 30 H (7-17) mg/dL Creatinine 6.43 H (0.52-1.04) mg/dL Est GFR (CKD-EPI)AfAm 6 (>60 ml/min/1.73 sqM) Est GFR (CKD-EPI)NonAf 5 (>60 ml/min/1.73 sqM) Glucose 162 H (74-99) mg/dL Plasma Lactic Acid Gilberto (0.7-2.0) mmol/L Calcium 8.6 (8.4-10.2) mg/dL Phosphorus 3.7 (2.5-4.5) mg/dL Magnesium 1.7 (1.6-2.3) mg/dL Total Bilirubin 0.3 (0.2-1.3) mg/dL AST 18 (14-36) U/L ALT 10 (4-34) U/L Alkaline Phosphatase 129 H (38-126) U/L Troponin I (0.000-0.034) ng/mL NT-Pro-B Natriuret Pep pg/mL Total Protein 5.7 L (6.3-8.2) g/dL Albumin 3.1 L (3.5-5.0) g/dL 02/22/20 02/22/20 02/22/20 Range/Units 12:14 12:14 12:14 WBC (3.8-10.6) k/uL RBC (3.80-5.40) m/uL Hgb (11.4-16.0) gm/dL Hct (34.0-46.0) % MCV (80.0-100.0) fL MCH (25.0-35.0) pg MCHC (31.0-37.0) g/dL RDW (11.5-15.5) % Plt Count (150-450) k/uL Neutrophils % % Lymphocytes % % Monocytes % % Eosinophils % % Basophils % % Neutrophils # (1.3-7.7) k/uL Lymphocytes # (1.0-4.8) k/uL Monocytes # (0-1.0) k/uL Eosinophils # (0-0.7) k/uL Basophils # (0-0.2) k/uL Macrocytosis PT (9.0-12.0) sec INR (<1.2) APTT (22.0-30.0) sec Sodium (137-145) mmol/L Potassium (3.5-5.1) mmol/L Chloride (98-107) mmol/L Carbon Dioxide (22-30) mmol/L Anion Gap mmol/L BUN (7-17) mg/dL Creatinine (0.52-1.04) mg/dL Est GFR (CKD-EPI)AfAm (>60 ml/min/1.73 sqM) Est GFR (CKD-EPI)NonAf (>60 ml/min/1.73 sqM) Glucose (74-99) mg/dL Plasma Lactic Acid Gilberto 2.3 H* (0.7-2.0) mmol/L Calcium (8.4-10.2) mg/dL Phosphorus (2.5-4.5) mg/dL Magnesium (1.6-2.3) mg/dL Total Bilirubin (0.2-1.3) mg/dL AST (14-36) U/L ALT (4-34) U/L Alkaline Phosphatase (38-126) U/L Troponin I 0.020 (0.000-0.034) ng/mL NT-Pro-B Natriuret Pep 59635 pg/mL Total Protein (6.3-8.2) g/dL Albumin (3.5-5.0) g/dL Disposition Clinical Impression: Acute on chronic renal failure, ESRD (end stage renal disease) on dialysis, Hypokalemia, Diarrhea Disposition: ADMITTED IP TO THIS HOSP Condition: Fair Referrals: Phil Blood MD [Primary Care Provider] - 1-2 days
[2020-02-22 12:44] LABS: Partial Thromboplastin Time 24.8 sec (22.0-30.0); Prothrombin Time 10.7 sec (9.0-12.0)
--- NOTE | 2020-02-22 12:45 | XR ---
EXAMINATION TYPE: XR chest 2V DATE OF EXAM: 02/22/2020 COMPARISON: Chest x-ray October 29, 2019 HISTORY: Weakness. TECHNIQUE: Frontal and lateral views of the chest are obtained. FINDINGS: Stable right internal jugular Mediport catheter. Persisting cardiomegaly with multi lead pa cemaker along with atherosclerotic and slightly ectatic thoracic aorta. Persistent mild central vasc ular congestion in the lung volumes. No new focal airspace opacity, pleural effusion, or pneumothorax seen bilaterally. The osseous structures remain somewhat demineralized. IMPRESSION: Overall stable findings, cardiomegaly and low lung volumes with mild central vascular con gestion. No new focal infiltrate.
[2020-02-22 12:46] LABS: Albumin 3.1 g/dL (3.5-5.0); Calcium 8.6 mg/dL (8.4-10.2); Magnesium 1.7 mg/dL (1.6-2.3); Phosphorus 3.7 mg/dL (2.5-4.5); Potassium 3.1 mmol/L (3.5-5.1); Total Bilirubin 0.3 mg/dL (0.2-1.3); Total Protein 5.7 g/dL (6.3-8.2)
[2020-02-22 12:52] LABS: Basophils % (A) 0 %; Eosinophils # (A) 0.2 k/uL (0-0.7); Eosinophils % (A) 4 %; HCT 31.1 % (34.0-46.0); HGB 10.6 gm/dL (11.4-16.0); Lymphocytes # (A) 1.1 k/uL (1.0-4.8); Lymphocytes % (A) 19 %; MCH 35.2 pg (25.0-35.0); MCHC 34.2 g/dL (31.0-37.0); MCV 102.7 fL (80.0-100.0); Macrocytosis Slight; Mean Platelet Volume 8.6; Monocytes # (A) 0.3 k/uL (0-1.0); Monocytes % (A) 6 %; Neutrophils # (A) 3.8 k/uL (1.3-7.7); Neutrophils % (A) 69 %; Platelet Count 199 k/uL (150-450); RBC 3.03 m/uL (3.80-5.40); RDW 15.7 % (11.5-15.5); WBC 5.6 k/uL (3.8-10.6)
[2020-02-22] MEDS ORDERED: POTASSIUM CHLORIDE ER 20 MEQ TAB.ER PO STA (14:36)
[2020-02-22] MEDS ORDERED: NALOXONE 0.4 MG/ML 1 ML VIAL IV PRN ×2 (14:38→16:30)
[2020-02-22] MEDS ORDERED: ONDANSETRON 4 MG/2 ML VIAL IVP PRN (16:30)
--- NOTE | 2020-02-22 16:46 | P.HPIM ---
History of Present Illness H&P Date: 02/22/20 Chief Complaint: Weakness 84-year-old female presents emergency Department from home chief complaint of weakness. Due to the weakness she was not able to make it to dialysis yesterday. She states that her weakness is secondary to diarrhea which started several days ago. Earlier in the month she has similar presentation with diarrhea and UTI induced weakness, she grew ESBL in the urine and she just recently finished 10 days course of IV Invanz. Patient states that every time she has UTI she ended with diarrhea. She states that she feels like she is retaining fluid at this point. She also has nausea but no vomiting. Patient denies any fevers or chills no chest pain no complains abdominal pain denies any melena hematochezia. In the emergency department she was hemodynamically stable, exam was unrevealing, labs were for only significant for low potassium at 3.1 and her lactic acid is 2.3. Rest of labs were reassuring. She was admitted to the hospital for further evaluation and management. Review of Systems Complete review of system performed, pertinent positives per HPI, otherwise negative Past Medical History Past Medical History: Atrial Fibrillation, Heart Failure, Diabetes Mellitus, GERD/Reflux, Hyperlipidemia, Hypertension, Myocardial Infarction ([place]), Osteoarthritis (OA), Renal Disease, Rheumatoid Arthritis (RA), Sleep Apnea/CPAP/BIPAP, Thyroid Disorder Additional Past Medical History / Comment(s): uti's,PALPITATIONS, Uses CPAP machine. Sick Sinus Syndrome with pacemaker, chronic afib. Stage 4 kidney disease. Last Myocardial Infarction Date:: 32 years ago History of Any Multi-Drug Resistant Organisms: ESBL Date of last positivie culture/infection: 02/04/20 MDRO Source:: ESBL URINE Past Surgical History: Hysterectomy, Pacemaker Additional Past Surgical History / Comment(s): hemmorrhoidectomy/r ectocele/cystocele, cataracts,. vein stripping x2, right arm fistula placement. Past Anesthesia/Blood Transfusion Reactions: No Reported Reaction Type of Cardiac Device: Permanent Pacemaker Device Placement Date:: 01/2017 Past Psychological History: No Psychological Hx Reported Smoking Status: Never smoker Past Alcohol Use History: None Reported Past Drug Use History: None Reported - Past Family History Father Family Medical History: Coronary Artery Disease (CAD), Hyperlipidemia, Hypertension, Myocardial Infarction ([place]) Mother Family Medical History: Unable to Obtain Sister(s) Family Medical History: Cancer Medications and Allergies Home Medications Medication Instructions Recorded Confirmed Type Levothyroxine Sodium [Synthroid] 100 mcg PO HS@209901/31/14 02/22/20 History Flecainide [Tambocor] 50 mg PO BID@0700,2100 10/12/16 02/22/20 History Allopurinol [Zyloprim] 100 mg PO DAILY@0700 01/18/17 02/22/20 History Atenolol [Tenormin] 50 mg PO DAILY@1200 10/10/17 02/22/20 History Acetaminophen [Tylenol] 1,000 mg PO Q8H PRN MDD 3000 MG 05/22/18 02/22/20 History Cholecalciferol (Vitamin D3) 4,000 unit PO DAILY@119905/26/19 02/22/20 History [Vitamin D3] Pantoprazole [Protonix] 40 mg PO HS@209908/16/19 02/22/20 History Atenolol [Tenormin] 25 mg PO HS@209902/04/20 02/22/20 History Folic Acid-Vit B Complex-Vit C 1 cap PO DAILY@169902/04/20 02/22/20 History [Nephrocaps] Insulin Lispro [humaLOG Kwikpen] See Protocol SQ AC-TID 02/04/20 02/22/20 History Ondansetron [Zofran] 4 mg PO Q8HR PRN 02/04/20 02/22/20 History Simvastatin [Zocor] 20 mg PO HS@209902/04/20 02/22/20 History Torsemide [Demadex] 40 mg PO SUTUTHSA@0700 02/04/20 02/22/20 History Apixaban [Eliquis] 2.5 mg PO BID@0700,1700 02/22/20 02/22/20 History Banatrol Plus Packet 1 packet PO TID@0700,1200,0 02/22/20 02/22/20 History Kaopectate Susp 262 mg PO BID@0700,1900 02/22/20 02/22/20 History Kaopectate Susp 262 mg PO DAILY PRN 02/22/20 02/22/20 History Torsemide [Demadex] 40 mg PO MOWEFR@1300 02/22/20 02/22/20 History Allergies Allergy/AdvReac Type Severity Reaction Status Date / Time Penicillins Allergy Rash/Hives Verified 02/22/20 13:00 Sulfa (Sulfonamide Allergy Rash/Hives Verified 02/22/20 13:00 Antibiotics) meperidine HCl [From Demerol] AdvReac Nausea & Verified 02/22/20 13:00 Vomiting Physical Exam Vitals: Vital Signs Temp Pulse Resp BP Pulse Ox 02/22/20 11:58 98.0 F 78 16 122/48 96 Intake and Output 02/21/20 02/22/20 02/22/20 22:59 06:59 14:59 Other: Weight 90.718 kg Constitutional: No acute distress, conversant, pleasant Eyes:Anicteric sclerae, moist conjunctiva, no lid-lag, PERRLA, ENMT: Oropharynx clear, no erythema, exudates Neck: Supple, FROM, no masses, or JVD, No carotid bruits, No thyromegaly Lungs: Clear to auscultation, Clear to percussion, Normal respiratory effort, no accessory muscle use Cardiovascular: Heart regular in rate and rhythm, No murmurs, gallops, or rubs, No peripheral edema Abdominal: Soft, Nontender, no guarding, rebound or rigidity, Normoactive bowel sounds, No hepatomegaly, No splenomegaly, No palpable mass Skin: Normal temperature, tone, texture, turgor, no induration, No subcutaneous nodules, No rash, lesions, No ulcers Extremities: No digital cyanosis, No clubbing, Pedal pulses intact and symmetrical, Radial pulses intact and symmetrical, No calf tenderness Psychiatric: Alert and oriented to person, place and time, appropriate affect, intact judgement Neuro: Muscles Strength 5/5 in all 4 extremities, Sensation to light touch grossly present throughout, Cranial nerves II-XII grossly intact, no focal sensory deficits Results CBC & Chem 7: 02/22/20 12:14 02/22/20 12:14 Labs: Abnormal Lab Results - Last 24 Hours (Table) 02/22/20 02/22/20 02/22/20 Range/Units 12:14 12:14 12:14 RBC 3.03 L (3.80-5.40) m/uL Hgb 10.6 L (11.4-16.0) gm/dL Hct 31.1 L (34.0-46.0) % MCV 102.7 H (80.0-100.0) fL MCH 35.2 H (25.0-35.0) pg RDW 15.7 H (11.5-15.5) % Potassium 3.1 L (3.5-5.1) mmol/L BUN 30 H (7-17) mg/dL Creatinine 6.43 H (0.52-1.04) mg/dL Glucose 162 H (74-99) mg/dL Plasma Lactic Acid Gilberto 2.3 H* (0.7-2.0) mmol/L Alkaline Phosphatase 129 H (38-126) U/L Total Protein 5.7 L (6.3-8.2) g/dL Albumin 3.1 L (3.5-5.0) g/dL Assessment and Plan Plan: Severe diarrhea, acute dehydration IV fluids Stool studies, stool for WBCs, cultures and C. diff Monitor clinically Hypokalemia Replace and follow in a.m. Lactic acidosis Repeat lactic acid Likely secondary to above ESRD Consult nephrology for dialysis Recent UTI Check UA Diabetes type 2 Sliding scale insulin Chronic Atrial Fibrillation, CHF GERD/Reflux, Hyperlipidemia, Hypertension, Hypothyroidism All stable resume meds Admit to inpatient, anticipate length of stay more than 2 minutes
[2020-02-22] MEDS: LACTATED RINGERS 1,000 ML IV SCH (17:06)
[2020-02-22] MEDS: APIXABAN 2.5 MG TABLET PO SCH (17:07)
[2020-02-22 19:13] LABS: Glucose,Whole Blood 93 mg/dL (75-99)
[2020-02-22] MEDS: INSULIN ASPART (NovoLOG) 100 UNIT/ML VIAL SQ SCH ×2 (19:13→21:11)
[2020-02-22 20:20] LABS: Appearance,Urine Cloudy (Clear); Bacteria,Urine Occasional /hpf; Bilirubin,Urine Negative (Negative); Blood,Urine Trace (Negative); Color,Urine Yellow; Glucose,Urine (UA) Negative (Negative); Hyaline Casts,Urine 11 /lpf (0-2); Ketones,Urine Negative (Negative); Leukocyte Esterase,Urine Large (Negative); Mucus,Urine Rare /hpf; Nitrite,Urine Negative (Negative); PH, Urine 5.5 (5.0-8.0); Protein,Urine 1+ (Negative); RBC,Urine 4 /hpf (0-5); Squamous Epithelial Cell,Urine 5 /hpf (0-4); WBC,Urine >182 /hpf (0-5)
[2020-02-22] MEDS: PANTOPRAZOLE 40 MG TABLET PO SCH (21:26)
[2020-02-22] MEDS: atenoloL 25 MG TAB PO SCH ×2 (21:26→21:28)
[2020-02-22] MEDS: FLECAINIDE 50 MG TAB PO SCH (21:26)
[2020-02-22] MEDS: ATORVASTATIN 10 MG TAB PO SCH (21:26)
[2020-02-22] MEDS: LEVOTHYROXINE 100 MCG TAB PO SCH (21:57)
[2020-02-23 07:54] LABS: Basophils % (A) 1 %; Eosinophils # (A) 0.2 k/uL (0-0.7); Eosinophils % (A) 4 %; HCT 30.4 % (34.0-46.0); HGB 9.9 gm/dL (11.4-16.0); Lymphocytes # (A) 1.4 k/uL (1.0-4.8); Lymphocytes % (A) 25 %; MCH 34.3 pg (25.0-35.0); MCHC 32.5 g/dL (31.0-37.0); MCV 105.7 fL (80.0-100.0); Macrocytosis Moderate; Monocytes # (A) 0.3 k/uL (0-1.0); Monocytes % (A) 5 %; Neutrophils # (A) 3.4 k/uL (1.3-7.7); Neutrophils % (A) 63 %; Platelet Count 174 k/uL (150-450); RBC 2.88 m/uL (3.80-5.40); RDW 15.6 % (11.5-15.5); WBC 5.5 k/uL (3.8-10.6)
[2020-02-23 08:00] LABS: Albumin 2.8 g/dL (3.5-5.0); Calcium 8.5 mg/dL (8.4-10.2); Magnesium 1.7 mg/dL (1.6-2.3); Potassium 3.5 mmol/L (3.5-5.1); Total Bilirubin 0.4 mg/dL (0.2-1.3); Total Protein 5.3 g/dL (6.3-8.2)
[2020-02-23] MEDS: INSULIN ASPART (NovoLOG) 100 UNIT/ML VIAL SQ SCH ×4 (08:49→21:38)
[2020-02-23 08:50] LABS: Glucose,Whole Blood 119 mg/dL (75-99)
[2020-02-23] MEDS ORDERED: ERTAPENEM 1 GM in SODIUM CHLORIDE 0.9% 50 ML IVPB SCH (09:00)
[2020-02-23] MEDS: APIXABAN 2.5 MG TABLET PO SCH ×2 (09:07→17:58)
[2020-02-23] MEDS: FLECAINIDE 50 MG TAB PO SCH ×2 (09:33→21:34)
[2020-02-23] MEDS: allopurinoL 100 MG TAB PO SCH (09:33)
[2020-02-23 12:17] LABS: Glucose,Whole Blood 167 mg/dL (75-99)
--- NOTE | 2020-02-23 14:17 | P.PN ---
Subjective Progress Note Date: 02/23/20 Principal diagnosis: diarrhea Patient is currently resting. According to nursing staff she had 4 loose BMs since last night. Currently undergoing dialysis. No fevers or chills. Objective - Vital Signs Vital signs: Vital Signs Temp 97.6 F 02/23/20 06:07 Pulse 71 02/23/20 10:00 Resp 18 02/23/20 10:00 BP 140/56 02/23/20 10:00 Pulse Ox 96 02/23/20 10:00 Intake & Output 02/22/20 02/23/20 02/23/20 18:59 06:59 18:59 Weight 90.718 kg 90.718 kg - Exam Constitutional: No acute distress, conversant, pleasant Eyes:Anicteric sclerae, moist conjunctiva, no lid-lag, PERRLA, ENMT: Oropharynx clear, no erythema, exudates Neck: Supple, FROM, no masses, or JVD, No carotid bruits, No thyromegaly Lungs: Clear to auscultation, Clear to percussion, Normal respiratory effort, no accessory muscle use Cardiovascular: Heart regular in rate and rhythm, No murmurs, gallops, or rubs, No peripheral edema Abdominal: Soft, Nontender, no guarding, rebound or rigidity, Normoactive bowel sounds, No hepatomegaly, No splenomegaly, No palpable mass Skin: Normal temperature, tone, texture, turgor, no induration, No subcutaneous nodules, No rash, lesions, No ulcers Extremities: No digital cyanosis, No clubbing, Pedal pulses intact and symmetrical, Radial pulses intact and symmetrical, No calf tenderness Psychiatric: Alert and oriented to person, place and time, appropriate affect, intact judgement Neuro: Muscles Strength 5/5 in all 4 extremities, Sensation to light touch grossly present throughout, Cranial nerves II-XII grossly intact, no focal senso ry deficits - Labs CBC & Chem 7: 02/23/20 07:21 02/23/20 07:21 Labs: Abnormal Lab Results - Last 24 Hours (Table) 02/22/20 02/23/20 02/23/20 Range/Units 20:07 07:21 07:21 RBC 2.88 L (3.80-5.40) m/uL Hgb 9.9 L (11.4-16.0) gm/dL Hct 30.4 L (34.0-46.0) % MCV 105.7 H (80.0-100.0) fL RDW 15.6 H (11.5-15.5) % Chloride 108 H (98-107) mmol/L Carbon Dioxide 21 L (22-30) mmol/L BUN 31 H (7-17) mg/dL Creatinine 6.15 H (0.52-1.04) mg/dL Glucose 100 H (74-99) mg/dL POC Glucose (mg/dL) (75-99) mg/dL Total Protein 5.3 L (6.3-8.2) g/dL Albumin 2.8 L (3.5-5.0) g/dL Urine Appearance Cloudy H (Clear) Urine Protein 1+ H (Negative) Urine Blood Trace H (Negative) Ur Leukocyte Esterase Large H (Negative) Urine WBC >182 H (0-5) /hpf Urine WBC Clumps Few H (None) /hpf Ur Squamous Epith Cells 5 H (0-4) /hpf Urine Bacteria Occasional H (None) /hpf Hyaline Casts 11 H (0-2) /lpf Urine Mucus Rare H (None) /hpf 02/23/20 02/23/20 Range/Units 08:48 12:15 RBC (3.80-5.40) m/uL Hgb (11.4-16.0) gm/dL Hct (34.0-46.0) % MCV (80.0-100.0) fL RDW (11.5-15.5) % Chloride (98-107) mmol/L Carbon Dioxide (22-30) mmol/L BUN (7-17) mg/dL Creatinine (0.52-1.04) mg/dL Glucose (74-99) mg/dL POC Glucose (mg/dL) 119 H 167 H (75-99) mg/dL Total Protein (6.3-8.2) g/dL Albumin (3.5-5.0) g/dL Urine Appearance (Clear) Urine Protein (Negative) Urine Blood (Negative) Ur Leukocyte Esterase (Negative) Urine WBC (0-5) /hpf Urine WBC Clumps (None) /hpf Ur Squamous Epith Cells (0-4) /hpf Urine Bacteria (None) /hpf Hyaline Casts (0-2) /lpf Urine Mucus (None) /hpf Microbiology - Last 24 Hours (Table) 02/22/20 20:07 Urine Culture - Preliminary Urine,Voided 02/22/20 15:48 Stool Culture - Preliminary Stool Assessment and Plan Plan: Severe diarrhea, acute dehydration IV fluids C.diff negative, awaiting stool for WBCs, cultures Consult GI Start immodium UTI Start invanz Consult ID Hypokalemia Replaced Lactic acidosis Resolved ESRD Nephrology following Dialysis today Diabetes type 2 Sliding scale insulin Chronic Atrial Fibrillation, CHF GERD/Reflux, Hyperlipidemia, Hypertension, Hypothyroidism All stable resume meds
[2020-02-23] MEDS: atenoloL 50 MG TAB PO SCH (14:40)
[2020-02-23] MEDS: LACTATED RINGERS 1,000 ML IV SCH (15:11)
[2020-02-23 16:42] LABS: Glucose,Whole Blood 94 mg/dL (75-99)
--- NOTE | 2020-02-23 17:41 | P.NPCON ---
History of Present Illness - Reason for Consult end stage renal disease - History of Present Illness Reason for consultation: End-stage renal disease History of present illness: Patient is a 84-year-old female seen in renal consultation for end-stage renal disease. She is maintained on hemodialysis on Friday schedule via right chest permacath. She has a maturing AV fistula as well. Patient's last hemodialysis was on Friday. Patient felt extremely weak and was having diarrhea so treatment on Friday. She denies any chest pain or shortness of breath. Patient states since she left the hospital last admission she's been having continuous diarrhea. She's having multiple episodes daily. No melena or hematochezia. Hemodynamically stable. She does complain of weakness. She did complete 10 day course of IV antibiotics for ESBL UTI. Patient attributes the diarrhea to the antibiotics. Her potassium was low on admission which was replaced. She denies abdominal pain. No dizziness or syncopal episodes. Otherwise she has no active complaints. Vital signs are stable. General: The patient appeared well nourished and normally developed. HEENT: Head exam is unremarkable. Neck is without jugular venous distension. LUNGS: Breath sounds decreased. HEART: Rate and Rhythm are regular. ABDOMEN: Soft, nontender. EXTREMITITES: Trace edema. Past Medical History Past Medical History: Atrial Fibrillation, Heart Failure, Diabetes Mellitus, Deep Vein Thrombosis (DVT), GERD/Reflux, Hyperlipidemia, Hypertension, Myocardial Infarction ([place]), Osteoarthritis (OA), Pulmonary Embolus (PE), Renal Disease, Rheumatoid Arthritis (RA), Sleep Apnea/CPAP/BIPAP, Thyroid Disorder Additional Past Medical History / Comment(s): Pt recently admitted to [facility] on 02/06/20 with UTI/ESBL/bacteremia. Other hx: IDDM type II, diabetic neuropathy bilateral hands/feet, ESRD with hemodialysis M/W/F, has temporary boone cath for dialysis d/t R upper arm recent fistula surgery 02/01/20 in which fistula was repositioned, R arm/shoulder limited ROM since fistula surgery, current UTI, recurrent UTIs, pt was told she had a past NM d/t EKG, palpitations, SSS with pacer, HARRIS with Cpap, chronic back and bilateral knee pain, hypothyroid. Last Myocardial Infarction Date:: unknown History of Any Multi-Drug Resistant Organisms: ESBL Date of last positivie culture/infection: 02/04/20 MDRO Source:: ESBL URINE Past Surgical History: Bladder Surgery, Hysterectomy, Pacemaker Additional Past Surgical History / Comment(s): 02/01/20 R upper arm fistula repositioned, R chest boone cath, rectocele, cystocele, hemorrhoidectomy, bilateral leg vein strippings, bilateral cataract removal, Picc lines Past Anesthesia/Blood Transfusion Reactions: No Reported Reaction Type of Cardiac Device: Permanent Pacemaker Device Placement Date:: 01/2017 Smoking Status: Never smoker - Past Family History Father Family Medical History: Coronary Artery Disease (CAD), Hyperlipidemia, Hypertension, Myocardial Infarction (NM) Mother Family Medical History: Unable to Obtain Sister(s) Family Medical History: Cancer Medications and Allergies Home Medications Medication Instructions Recorded Confirmed Type Levothyroxine Sodium [Synthroid] 100 mcg PO HS@209901/31/14 02/22/20 History Flecainide [Tambocor] 50 mg PO BID@0700,209910/12/16 02/22/20 History Allopurinol [Zyloprim] 100 mg PO DAILY@0700 01/18/17 02/22/20 History Atenolol [Tenormin] 50 mg PO DAILY@1200 10/10/17 02/22/20 History Acetaminophen [Tylenol] 1,000 mg PO Q8H PRN MDD 3000 MG 05/22/18 02/22/20 History Cholecalciferol (Vitamin D3) 4,000 unit PO DAILY@1200 05/26/19 02/22/20 History [Vitamin D3] Pantoprazole [Protonix] 40 mg PO HS@209908/16/19 02/22/20 History Atenolol [Tenormin] 25 mg PO HS@209902/04/20 02/22/20 History Folic Acid-Vit B Complex-Vit C 1 cap PO DAILY@1700 02/04/20 02/22/20 History [Nephrocaps] Insulin Lispro [humaLOG Kwikpen] See Protocol SQ AC-TID 02/04/20 02/22/20 History Ondansetron [Zofran] 4 mg PO Q8HR PRN 02/04/20 02/22/20 History Simvastatin [Zocor] 20 mg PO HS@209902/04/20 02/22/20 History Torsemide [Demadex] 40 mg PO SUTUTHSA@0700 02/04/20 02/22/20 History Apixaban [Eliquis] 2.5 mg PO BID@0700,1700 02/22/20 02/22/20 History Banatrol Plus Packet 1 packet PO TID@0700,1200,1700 02/22/20 02/22/20 History Kaopectate Susp 262 mg PO BID@0700,1900 02/22/20 02/22/20 History Kaopectate Susp 262 mg PO DAILY PRN 02/22/20 02/22/20 History Torsemide [Demadex] 40 mg PO MOWEFR@1300 02/22/20 02/22/20 History Allergies Allergy/AdvReac Type Severity Reaction Status Date / Time Penicillins Allergy Rash/Hives Verified 02/22/20 13:00 Sulfa (Sulfonamide Allergy Rash/Hives Verified 02/22/20 13:00 Antibiotics) meperidine HCl [From Demerol] AdvReac Nausea & Verified 02/22/20 13:00 Vomiting Physical Exam Vitals: Vital Signs Temp Pulse Pulse Resp BP BP Pulse Ox 02/23/20 17:24 98.6 F 60 16 126/56 02/23/20 15:15 16 02/23/20 14:55 97.8 F 69 16 150/55 100 02/23/20 14:39 56 L 16 104/56 95 02/23/20 10:00 71 18 140/56 96 02/23/20 06:07 97.6 F 74 18 146/51 96 02/23/20 02:16 60 18 121/32 97 02/22/20 23:20 63 16 115/51 98 02/22/20 22:00 97.3 F L 61 16 122/32 98 02/22/20 19:09 64 18 133/47 96 Intake and Output 02/23/20 02/23/20 02/23/20 06:59 14:59 22:59 Output Total 1999 Balance -1999 Output: Hemodialysis 1999 Other: Voiding Method Bedpan Weight 90.718 kg Results - Lab Results Most recent lab results Calcium 8.5 mg/dL (8.4-10.2) 02/23/20 07:21 Phosphorus 4.0 mg/dL (2.5-4.5) 02/23/20 07:21 Magnesium 1.7 mg/dL (1.6-2.3) 02/23/20 07:21 02/23/20 07:21 02/23/20 07:21 Assessment and Plan Plan: Assessment: 1. End-stage renal disease maintained on hemodialysis on Friday schedule via right chest permacath. She also has a maturing AV fistula. 2. Diarrhea. C. diff negative. Patient did complete recent course of antibiotics. Stool culture pending. 3. Hypokalemia from poor intake. Better post replacement. 4. Metabolic acidosis secondary to chronic kidney disease. 5. Recent ESBL UTI status post antibiotics. UA again suggestive of UTI. Plan: Hemodialysis today with goal 1.5-2 L ultrafiltration. Check magnesium and phosphorus level. Follow-up cultures. Thank you for the consultation. I will continue to follow the patient with you during her hospital stay.
[2020-02-23] MEDS: atenoloL 25 MG TAB PO SCH (21:31)
[2020-02-23] MEDS: PANTOPRAZOLE 40 MG TABLET PO SCH (21:32)
[2020-02-23] MEDS: ATORVASTATIN 10 MG TAB PO SCH (21:32)
[2020-02-23] MEDS: LEVOTHYROXINE 100 MCG TAB PO SCH (21:32)
[2020-02-23 21:34] LABS: Glucose,Whole Blood 148 mg/dL (75-99)
[2020-02-24 06:47] LABS: Glucose,Whole Blood 98 mg/dL (75-99)
--- NOTE | 2020-02-24 07:11 | P.CONS ---
History of Present Illness - Reason for Consult Consult date: 02/23/20 Urinary tract infection Requesting physician: Osman Mcmanus - Chief Complaint Weakness and diarrhea 2 days - History of Present Illness Patient is 84-year-old female with a past medical history significant for end-stage renal disease on hemodialysis in this patient who still makes urine was recently admitted to the hospital for symptomatic urinary tract i nfection urine cultures were positive for ESBL E. coli patient got midline has completed her IV antibiotic therapy last week, patient is not presenting to the ER as she complains of weakness no energy and significant diarrhea that the patient has for a week now patient mentions she did have multiple loose stools with no blood or mucus in the stools denies significant crampy abdominal pain and some nausea but no vomiting and decreased oral intake patient also complaining of some urinary frequency and discomfort but no hematuria. The symptom has the patient was evaluated by the ER physician on arrival to the ER , The patient has been afebrile her white count has been normal , patient did have stool for C. diff which came back negative patient did have a positive UA patient has been started on Invanz and infectious disease was consulted for further management of antibiotic therapy Review of Systems Positive point has been mentioned in the HPI rest of the systems are negative Past Medical History Past Medical History: Atrial Fibrillation, Heart Failure, Diabetes Mellitus, Deep Vein Thrombosis (DVT), GERD/Reflux, Hyperlipidemia, Hypertension, Myocardial Infarction ([place]), Osteoarthritis (OA), Pulmonary Embolus (PE), Renal Disease, Rheumatoid Arthritis (RA), Sleep Apnea/CPAP/BIPAP, Thyroid Disorder Additional Past Medical History / Comment(s): Pt recently admitted to [facility] on 02/06/20 with UTI/ESBL/bacteremia. Other hx: IDDM type II, diabetic neuropathy bilateral hands/feet, ESRD with hemodialysis M/W/F, has temporary boone cath for dialysis d/t R upper arm recent fistula surgery 02/01/20 in which fistula was repositioned, R arm/shoulder limited ROM since fistula surgery, current UTI, recurrent UTIs, pt was told she had a past [place] d/t EKG, palpitations, SSS with pacer, HARRIS with Cpap, chronic back and bilateral knee pain, hypothyroid. Last Myocardial Infarction Date:: unknown History of Any Multi-Drug Resistant Organisms: ESBL Year Discovered:: 02/04/20 MDRO Source:: ESBL URINE Past Surgical History: Bladder Surgery, Hysterectomy, Pacemaker Additional Past Surgical History / Comment(s): 02/01/20 R upper arm fistula repositioned, R chest boone cath, rectocele, cystocele, hemorrhoidectomy, bilateral leg vein strippings, bilateral cataract removal, Picc lines Past Anesthesia/Blood Transfusion Reactions: No Reported Reaction Type of Cardiac Device: Permanent Pacemaker Device Placement Date:: 01/2017 Smoking Status: Never smoker - Past Family History Father Family Medical History: Coronary Artery Disease (CAD), Hyperlipidemia, Hypertension, Myocardial Infarction ([place]) Mother Family Medical History: Unable to Obtain Sister(s) Family Medical History: Cancer Medications and Allergies Home Medications Medication Instructions Recorded Confirmed Type Levothyroxine Sodium [Synthroid] 100 mcg PO HS@209901/31/14 02/22/20 History Flecainide [Tambocor] 50 mg PO BID@0700,2100 10/12/16 02/22/20 History Allopurinol [Zyloprim] 100 mg PO DAILY@0700 01/18/17 02/22/20 History Atenolol [Tenormin] 50 mg PO DAILY@1200 10/10/17 02/22/20 History Acetaminophen [Tylenol] 1,000 mg PO Q8H PRN MDD 3000 MG 05/22/18 02/22/20 History Cholecalciferol (Vitamin D3) 4,000 unit PO DAILY@1200 05/26/19 02/22/20 History [Vitamin D3] Pantoprazole [Protonix] 40 mg PO HS@2100 08/16/19 02/22/20 History Atenolol [Tenormin] 25 mg PO HS@209902/04/20 02/22/20 History Folic Acid-Vit B Complex-Vit C 1 cap PO DAILY@1700 02/04/20 02/22/20 History [Nephrocaps] Insulin Lispro [humaLOG Kwikpen] See Protocol SQ AC-TID 02/04/20 02/22/20 History Ondansetron [Zofran] 4 mg PO Q8HR PRN 02/04/20 02/22/20 History Simvastatin [Zocor] 20 mg PO HS@209902/04/20 02/22/20 History Torsemide [Demadex] 40 mg PO SUTUTHSA@0700 02/04/20 02/22/20 History Apixaban [Eliquis] 2.5 mg PO BID@0700,1700 02/22/20 02/22/20 History Banatrol Plus Packet 1 packet PO TID@0700,1200,1700 02/22/20 02/22/20 History Kaopectate Susp 262 mg PO BID@0700,1900 02/22/20 02/22/20 History Kaopectate Susp 262 mg PO DAILY PRN 02/22/20 02/22/20 History Torsemide [Demadex] 40 mg PO MOWEFR@1300 02/22/20 02/22/20 History Allergies Allergy/AdvReac Type Severity Reaction Status Date / Time Penicillins Allergy Rash/Hives Verified 02/22/20 13:00 Sulfa (Sulfonamide Allergy Rash/Hives Verified 02/22/20 13:00 Antibiotics) meperidine HCl [From Demerol] AdvReac Nausea & Verified 02/22/20 13:00 Vomiting Physical Exam Vitals: Vital Signs Temp Pulse Resp BP Pulse Ox 02/23/20 10:00 71 18 140/56 96 02/23/20 06:07 97.6 F 74 18 146/51 96 02/23/20 02:16 60 18 121/32 97 02/22/20 23:20 63 16 115/51 98 02/22/20 22:00 97.3 F L 61 16 122/32 98 02/22/20 19:09 64 18 133/47 96 02/22/20 15:15 18 02/22/20 15:03 70 18 117/69 95 Intake and Output 02/22/20 02/23/20 02/23/20 22:59 06:59 14:59 Other: Weight 90.718 kg GENERAL DESCRIPTION: An elderly female lying in bed, no distress. No tachypnea or accessory muscle of respiration use. HEENT: Shows Pallor , no scleral icterus. Oral mucous membrane is dry. No pharyngeal erythema or thrush NECK: Trachea central, no thyromegaly. LUNGS: Unlabored breathing. Clear to auscultation anteriorly. No wheeze or crackle. HEART: S1, S2, regular rate and rhythm. No loud murmur ABDOMEN: Soft, no tenderness , guarding or rigidity, no organomegaly EXTREMITIES: No edema of feet. SKIN: No rash, no masses palpable. NEUROLOGICAL: The patient is awake, alert, oriented x3, mood and affect normal. Results CBC & Chem 7: 02/23/20 07:21 02/23/20 07:21 Labs: Abnormal Lab Results - Last 24 Hours (Table) 02/22/20 02/23/20 02/23/20 Range/Units 20:07 07:21 07:21 RBC 2.88 L (3.80-5.40) m/uL Hgb 9.9 L (11.4-16.0) gm/dL Hct 30.4 L (34.0-46.0) % MCV 105.7 H (80.0-100.0) fL RDW 15.6 H (11.5-15.5) % Chloride 108 H (98-107) mmol/L Carbon Dioxide 21 L (22-30) mmol/L BUN 31 H (7-17) mg/dL Creatinine 6.15 H (0.52-1.04) mg/dL Glucose 100 H (74-99) mg/dL POC Glucose (mg/dL) (75-99) mg/dL Total Protein 5.3 L (6.3-8.2) g/dL Albumin 2.8 L (3.5-5.0) g/dL Urine Appearance Cloudy H (Clear) Urine Protein 1+ H (Negative) Urine Blood Trace H (Negative) Ur Leukocyte Esterase Large H (Negative) Urine WBC >182 H (0-5) /hpf Urine WBC Clumps Few H (None) /hpf Ur Squamous Epith Cells 5 H (0-4) /hpf Urine Bacteria Occasional H (None) /hpf Hyaline Casts 11 H (0-2) /lpf Urine Mucus Rare H (None) /hpf 02/23/20 02/23/20 Range/Units 08:48 12:15 RBC (3.80-5.40) m/uL Hgb (11.4-16.0) gm/dL Hct (34.0-46.0) % MCV (80.0-100.0) fL RDW (11.5-15.5) % Chloride (98-107) mmol/L Carbon Dioxide (22-30) mmol/L BUN (7-17) mg/dL Creatinine (0.52-1.04) mg/dL Glucose (74-99) mg/dL POC Glucose (mg/dL) 119 H 167 H (75-99) mg/dL Total Protein (6.3-8.2) g/dL Albumin (3.5-5.0) g/dL Urine Appearance (Clear) Urine Protein (Negative) Urine Blood (Negative) Ur Leukocyte Esterase (Negative) Urine WBC (0-5) /hpf Urine WBC Clumps (None) /hpf Ur Squamous Epith Cells (0-4) /hpf Urine Bacteria (None) /hpf Hyaline Casts (0-2) /lpf Urine Mucus (None) /hpf Microbiology - Last 24 Hours (Table) 02/22/20 20:07 Urine Culture - Preliminary Urine,Voided 02/22/20 15:48 Stool Culture - Preliminary Stool Assessment and Plan Assessment: 1-patient presented to the hospital with diarrhea and this patient who was recently admitted to this hospital beginning of January with similar presentation and that when she was diagnosed with a central line related infection urine culture were positive for ESBL and the patient completed treatment with the patient denies and advanced patient did have an ultrasound of the kidney did not show any hydronephrosis however there was a cyst on the left kidney which did not meet criteria for simple cysts now again having the positive UA with concern for another episode of some medicated the infection C. diff was a concern however that has been ruled out with a negative testing 2-abdominal ultrasound of the kidney with concern for left renal cyst not simple 3-Patient with multiple antibiotic ALLERGIES that would limit the number of antibiotic safe to use (1) Diarrhea Current Visit: Yes Status: Acute Code(s): R19.7 - DIARRHEA, UNSPECIFIED SNOMED Code(s): 16634284 (2) UTI (urinary tract infection) Current Visit: No Status: Acute Code(s): N39.0 - URINARY TRACT INFECTION, SITE NOT SPECIFIED SNOMED Code(s): 35699221 Plan: 1- Agree with Invanz 500 mg daily while waiting for the cultures to finalize 2-check a stool for C. diff PCR and stool culture 3-CT abdominal pelvis renal protocol for further investigation of the left renal cyst, which clear with the nephrology for use of IV contrast We will follow on clinical condition and cultures to further adjust medication if needed Thank you for this consultation will follow this patient with you Time with Patient: Greater than 30
[2020-02-24] MEDS: INSULIN ASPART (NovoLOG) 100 UNIT/ML VIAL SQ SCH ×4 (07:34→21:35)
[2020-02-24] MEDS: ERTAPENEM 0.5 GM in SODIUM CHLORIDE 0.9% 50 ML IVPB SCH (08:38)
[2020-02-24] MEDS: FLECAINIDE 50 MG TAB PO SCH ×2 (08:38→22:17)
[2020-02-24] MEDS: allopurinoL 100 MG TAB PO SCH (08:39)
[2020-02-24] MEDS: APIXABAN 2.5 MG TABLET PO SCH ×2 (08:39→16:59)
[2020-02-24] MEDS: LACTATED RINGERS 1,000 ML IV SCH (08:40)
[2020-02-24] MEDS: ACETAMINOPHEN TAB 500 MG TAB PO PRN (08:45)
[2020-02-24 09:52] LABS: Calcium 8.4 mg/dL (8.4-10.2); Magnesium 1.7 mg/dL (1.6-2.3); Phosphorus 3.1 mg/dL (2.5-4.5); Potassium 3.8 mmol/L (3.5-5.1)
[2020-02-24] MEDS: LACTOBACILLUS ACIDOPH & BULGAR 1 EACH PACKET PO SCH ×3 (10:39→22:17)
--- NOTE | 2020-02-24 11:13 | P.PN ---
Subjective Patient is seen in follow-up for end-stage renal disease. She is maintained on hemodialysis on Friday schedule. Tolerated hemodialysis well yesterday. Diarrhea is much better. Oral intake is fair. No vomiting. Vital signs are stable. General: The patient appeared well nourished and normally developed. HEENT: Head exam is unremarkable. Neck is without jugular venous distension. LUNGS: Lungs are clear to auscultation and percussion. Breath sounds decreased. HEART: Rate and Rhythm are regular. ABDOMEN: soft, nontender. EXTREMITITES: No edema. Objective - Vital Signs Vital signs: Vital Signs Temp 98.1 F 02/24/20 07:00 Pulse 73 02/24/20 07:00 Resp 18 02/24/20 07:00 BP 144/70 02/24/20 07:00 Pulse Ox 97 02/24/20 07:00 Intake & Output 02/23/20 02/24/20 02/24/20 18:59 06:59 18:59 Output Total 1999 -1999 Weight 90.718 kg Output: Hemodialysis 1999 Other: Voiding Method Bedpan Bedpan Bedpan # Voids 1 0 # Bowel Movements 1 - Labs CBC & Chem 7: 02/23/20 07:21 02/24/20 09:02 Labs: Abnormal Lab Results - Last 24 Hours (Table) 02/22/20 02/23/20 02/23/20 Range/Units 15:48 12:15 21:33 Creatinine (0.52-1.04) mg/dL Glucose (74-99) mg/dL POC Glucose (mg/dL) 167 H 148 H (75-99) mg/dL Stool Lactoferrin POSITIVE H (NEGATIVE) 02/24/20 Range/Units 09:02 Creatinine 3.43 H (0.52-1.04) mg/dL Glucose 154 H (74-99) mg/dL POC Glucose (mg/dL) (75-99) mg/dL Stool Lactoferrin (NEGATIVE) Assessment and Plan Plan: Assessment: 1. End-stage renal disease maintained on hemodialysis on Friday schedule via right chest permacath. She also has a maturing AV fistula. 2. Diarrhea. C. diff negative. Patient did complete recent course of antibiotics. Stool culture pending. 3. Hypokalemia from poor intake. Better post replacement. 4. Metabolic acidosis secondary to chronic kidney disease. Better. 5. Recent ESBL UTI status post antibiotics. UA again suggestive of UTI. Plan: Hemodialysis tomorrow with goal 1.5-2 L ultrafiltration. Follow-up cultures. Phosphorus normal.
[2020-02-24 11:36] LABS: Glucose,Whole Blood 143 mg/dL (75-99)
[2020-02-24] MEDS: atenoloL 50 MG TAB PO SCH (12:52)
[2020-02-24] MEDS: NYSTATIN 100,000 UNIT/ML SUSP 500,000 UNIT/5 ML CUP PO SCH ×3 (12:52→22:16)
[2020-02-24 16:28] LABS: Glucose,Whole Blood 189 mg/dL (75-99)
--- NOTE | 2020-02-24 17:43 | PN ---
PROGRESS NOTE DATE OF SERVICE: 02/24/2020 REASON FOR FOLLOWUP: Diarrhea, UTI and oropharyngeal candidiasis. INTERVAL HISTORY: The patient is currently afebrile. She has been complaining of some soreness in her mouth. The patient's diarrhea has resolved. She did not have any bowel movement last night. Denies having any abdominal pain. No nausea, no vomiting, and currently not having any urine output. PHYSICAL EXAMINATION: Her blood pressure is 144/70 with a pulse of 73, temperature 98.1. She is 97% on room air. General description is an elderly female lying in bed in no distress. RESPIRATORY SYSTEM: Unlabored breathing. Clear to auscultation anteriorly. HEART: S1, S2. Regular rate and rhythm. ABDOMEN: Soft. No tenderness. LABS: Urine so far pending. Stool cultures pending. DIAGNOSTIC IMPRESSION AND PLAN: 1. Patient admitted to hospital with acute nausea, vomiting and diarrhea with concern for possible infectious etiology. Stool for C difficile is negative. The patient clinically responded to the [facility]; to continue as needed in the outpatient setting. 2. Patient with positive urinalysis in this patient who hardly makes any urine, with a question of possible stagnation of the urine in the bladder for a long time. UTI less likely but not entirely excluded. Possible cystitis, for which the patient has received 3 days of antibiotic. That should be more than enough. 3. Oral thrush. Will add nystatin swish and swallow for a week. This was discussed in detail with the admitting physician working on discharge. MMODL / IJN: [id number] /
--- NOTE | 2020-02-24 17:57 | P.PN ---
Subjective Progress Note Date: 02/24/20 Principal diagnosis: diarrhea Patient has been feeling better, diarrhea is improving. No pain. No other overnight issues. Objective - Vital Signs Vital signs: Vital Signs Temp 99.2 F 02/24/20 14:45 Pulse 96 02/24/20 14:45 Resp 19 02/24/20 14:45 BP 107/57 02/24/20 14:45 Pulse Ox 90 L 02/24/20 14:45 Intake & Output 02/23/20 02/24/20 02/24/20 18:59 06:59 18:59 Output Total 1999 Balance -1999 Weight 90.718 kg Output: Hemodialysis 1999 Other: Voiding Method Bedpan Bedpan Bedpan # Voids 1 0 1 # Bowel Movements 1 - Exam Constitutional: No acute distress, conversant, pleasant Eyes:Anicteric sclerae, moist conjunctiva, no lid-lag, PERRLA, ENMT: Oropharynx clear, no erythema, exudates Neck: Supple, FROM, no masses, or JVD, No carotid bruits, No thyromegaly Lungs: Clear to auscultation, Clear to percussion, Normal respiratory effort, no accessory muscle use Cardiovascular: Heart regular in rate and rhythm, No murmurs, gallops, or rubs, No peripheral edema Abdominal: Soft, Nontender, no guarding, rebound or rigidity, Normoactive bowel sounds, No hepatomegaly, No splenomegaly, No palpable mass Skin: Normal temperature, tone, texture, turgor, no induration, No subcutaneous nodules, No rash, lesions, No ulcers Extremities: No digital cyanosis, No clubbing, Pedal pulses intact and symmetrical, Radial pulses intact and symmetrical, No calf tenderness Psychiatric: Alert and oriented to person, place and time, appropriate affect, intact judgement Neuro: Muscles Strength 5/5 in all 4 extremities, Sensation to light touch grossly present throughout, Cranial nerves II-XII grossly intact, no focal sensory deficits - Labs CBC & Chem 7: 02/23/20 07:21 02/24/20 09:02 Labs: Abnormal Lab Results - Last 24 Hours (Table) 02/23/20 02/24/20 02/24/20 Range/Units 21:33 09:02 11:30 Creatinine 3.43 H (0.52-1.04) mg/dL Glucose 154 H (74-99) mg/dL POC Glucose (mg/dL) 148 H 143 H (75-99) mg/dL 02/24/20 Range/Units 16:26 Creatinine (0.52-1.04) mg/dL Glucose (74-99) mg/dL POC Glucose (mg/dL) 189 H (75-99) mg/dL Assessment and Plan Plan: Severe diarrhea, acute dehydration IV fluids C.diff negative, Stool for lactoferrin positive, awaiting stool cultures Consult GI pending On immodium when necessary UTI Continue invanz ID following Lactic acidosis Resolved ESRD Nephrology following Dialysis today Diabetes type 2 Sliding scale insulin Chronic Atrial Fibrillation, CHF GERD/Reflux, Hyperlipidemia, Hypertension, Hypothyroidism All stable resume meds
[2020-02-24 21:35] LABS: Glucose,Whole Blood 95 mg/dL (75-99)
[2020-02-24] MEDS: ATORVASTATIN 10 MG TAB PO SCH (22:17)
[2020-02-24] MEDS: atenoloL 25 MG TAB PO SCH (22:17)
[2020-02-24] MEDS: LEVOTHYROXINE 100 MCG TAB PO SCH (22:17)
[2020-02-24] MEDS: PANTOPRAZOLE 40 MG TABLET PO SCH (22:17)
[2020-02-25] MEDS: LACTATED RINGERS 1,000 ML IV SCH ×2 (03:09→22:11)
--- NOTE | 2020-02-25 04:48 | P.CONS ---
History of Present Illness - Reason for Consult Consult date: 02/24/20 Diarrhea Requesting physician: Meghann Bazan - Chief Complaint Weakness - History of Present Illness 84-year-old female with multiple medical comorbidities including hypertension, diabetes mellitus, hyperlipidemia, osteoarthritis, HARRIS, end-stage renal disease on hemodialysis, recurrent UTIs and GERD who presented to the hospital with chief complaint of weakness. The patient has had problems with recurrent urinary tract infections and was recently treated at the beginning of the month for similar complaint. At that time she received IV antibiotic therapy. She r eports that bowel movements often become loose in association with the antibiotic therapy. Subsequently she developed dehydration and weakness. She reports multiple loose nonbloody bowel movements prior to presentation. Currently reporting that her bowel movements have become more formed and soft in nature. She denies any gross bleeding or melanotic stool. She reports last colonoscopy was performed remotely. Testing for Clostridium difficile was negative on presentation with laboratory evaluation significant for WBC 5.5, hemoglobin 9.9, platelet count 274,000. Currently receiving Imodium as needed for loose stool. She is denying any abdominal pain at this time. Review of Systems REVIEW OF SYSTEMS: CONSTITUTIONAL: Denies any fevers, chills, weight change or fatigue. CARDIOVASCULAR: Denies any chest pain, palpitations high or low blood pressures RESPIRATORY: Denies any shortness of breath, hemoptysis or cough. GENITOURINARY: No dysuria or hematuria, known end-stage renal disease on hemodialysis. MUSCULOSKELETAL: No weakness reported. SKIN: Denies any new rashes or lesions, jaundice or pallor. PSYCHIATRIC: Denies any depression or anxiety. NEUROLOGY: Denies headache, denies any new focal deficits. EARS/NOSE/THROAT: No recent hearing change, congestion, nasal discharge or sore throat. EYES: No pain in eyes, discharge or change in vision. GASTROINTESTINAL: As per HPI. Past Medical History Past Medical History: Atrial Fibrillation, Heart Failure, Diabetes Mellitus, Deep Vein Thrombosis (DVT), GERD/Reflux, Hyperlipidemia, Hypertension, Myocardial Infarction ([place]), Osteoarthritis ([place]), Pulmonary Embolus ([place]), Renal Disease, Rheumatoid Arthritis (RA), Sleep Apnea/CPAP/BIPAP, Thyroid Disorder Additional Past Medical History / Comment(s): Pt recently admitted to [facility] on 02/06/20 with UTI/ESBL/bacteremia. Other hx: IDDM type II, diabetic neuropathy bilateral hands/feet, ESRD with hemodialysis M/W/F, has temporary boone cath for dialysis d/t R upper arm recent fistula surgery 02/01/20 in which fistula was repositioned, R arm/shoulder limited ROM since fistula surgery, current UTI, recurrent UTIs, pt was told she had a past [place] d/t EKG, palpitations, SSS with pacer, HARRIS with Cpap, chronic back and bilateral knee pain, hypothyroid. Last Myocardial Infarction Date:: unknown History of Any Multi-Drug Resistant Organisms: ESBL Year Discovered:: 02/04/20 MDRO Source:: ESBL URINE Past Surgical History: Bladder Surgery, Hysterectomy, Pacemaker Additional Past Surgical History / Comment(s): 02/01/20 R upper arm fistula repositioned, R chest boone cath, rectocele, cystocele, hemorrhoidectomy, bilateral leg vein strippings, bilateral cataract removal, Picc lines Past Anesthesia/Blood Transfusion Reactions: No Reported Reaction Type of Cardiac Device: Permanent Pacemaker Device Placement Date:: 01/2017 Smoking Status: Never smoker - Past Family History Father Family Medical History: Coronary Artery Disease (CAD), Hyperlipidemia, Hypertension, Myocardial Infarction ([place]) Mother Family Medical History: Unable to Obtain Sister(s) Family Medical History: Cancer Medications and Allergies Home Medications Medication Instructions Recorded Confirmed Type Levothyroxine Sodium [Synthroid] 100 mcg PO HS@209901/31/14 02/22/20 History Flecainide [Tambocor] 50 mg PO BID@0700,2100 10/12/16 02/22/20 History Allopurinol [Zyloprim] 100 mg PO DAILY@0700 01/18/17 02/22/20 History Atenolol [Tenormin] 50 mg PO DAILY@1200 10/10/17 02/22/20 History Acetaminophen [Tylenol] 1,000 mg PO Q8H PRN MDD 3000 MG 05/22/18 02/22/20 History Cholecalciferol (Vitamin D3) 4,000 unit PO DAILY@1200 05/26/19 02/22/20 History [Vitamin D3] Pantoprazole [Protonix] 40 mg PO HS@209908/16/19 02/22/20 History Atenolol [Tenormin] 25 mg PO HS@209902/04/20 02/22/20 History Folic Acid-Vit B Complex-Vit C 1 cap PO DAILY@1700 02/04/20 02/22/20 History [Nephrocaps] Insulin Lispro [humaLOG Kwikpen] See Protocol SQ AC-TID 02/04/20 02/22/20 History Ondansetron [Zofran] 4 mg PO Q8HR PRN 02/04/20 02/22/20 History Simvastatin [Zocor] 20 mg PO HS@2100 02/04/20 02/22/20 History Torsemide [Demadex] 40 mg PO SUTUTHSA@0700 02/04/20 02/22/20 History Apixaban [Eliquis] 2.5 mg PO BID@0700,1700 02/22/20 02/22/20 History Banatrol Plus Packet 1 packet PO TID@0700,1200,1700 02/22/20 02/22/20 History Kaopectate Susp 262 mg PO BID@0700,1900 02/22/20 02/22/20 History Kaopectate Susp 262 mg PO DAILY PRN 02/22/20 02/22/20 History Torsemide [Demadex] 40 mg PO MOWEFR@1300 02/22/20 02/22/20 History Allergies Allergy/AdvReac Type Severity Reaction Status Date / Time Penicillins Allergy Rash/Hives Verified 02/22/20 13:00 Sulfa (Sulfonamide Allergy Rash/Hives Verified 02/22/20 13:00 Antibiotics) meperidine HCl [From Demerol] AdvReac Nausea & Verified 02/22/20 13:00 Vomiting Physical Exam Vitals: Vital Signs Temp Pulse Pulse Resp BP BP Pulse Ox 02/24/20 12:55 79 108/61 02/24/20 07:00 98.1 F 73 18 144/70 97 02/24/20 00:00 16 02/23/20 23:00 98.7 F 69 116/65 95 02/23/20 18:50 97.6 F 83 115/67 98 02/23/20 17:24 98.6 F 60 16 126/56 02/23/20 15:15 16 02/23/20 14:55 97.8 F 69 16 150/55 100 02/23/20 14:39 56 L 16 104/56 95 Intake and Output 02/23/20 02/24/2002/23/20 22:59 06:59 14:59 Output Total 1999 -1999 Output: Hemodialysis 1999 Other: Voiding Method Bedpan Bedpan Bedpan # Voids 1 0 1 # Bowel Movements 1 On physical examination, patient appears comfortable in no apparent distress. HEAD: Normocephalic, atraumatic. EYES: No scleral icterus. No conjunctival injection. MOUTH: No lesions, tongue midline. NECK: Trachea midline, no gross abnormalities. CHEST: Clear to auscultation with no wheezing or rhonchi appreciated. HEART: S1-S2 appreciated. ABDOMEN: Soft, obese. Bowel sounds are positive. No organomegaly. No guarding or rigidity. EXTREMITIES: No pedal edema. SKIN: No rashes, no jaundice. NEUROLOGIC: Alert and oriented x3. No focal deficits. Results CBC & Chem 7: 02/23/20 07:21 02/24/20 09:02 Labs: Abnormal Lab Results - Last 24 Hours (Table) 02/22/20 02/23/20 02/24/20 Range/Units 15:48 21:33 09:02 Creatinine 3.43 H (0.52-1.04) mg/dL Glucose 154 H (74-99) mg/dL POC Glucose (mg/dL) 148 H (75-99) mg/dL Stool Lactoferrin POSITIVE H (NEGATIVE) 02/24/20 Range/Units 11:30 Creatinine (0.52-1.04) mg/dL Glucose (74-99) mg/dL POC Glucose (mg/dL) 143 H (75-99) mg/dL Stool Lactoferrin (NEGATIVE) Chest x-ray: report reviewed (Stable cardiomegaly and low lung volumes on chest x-ray) Assessment and Plan (1) Diarrhea Narrative/Plan: 84-year-old female with multiple medical comorbidities including end-stage renal disease on hemodialysis and recurrent urinary tract infections requiring anti biotic therapy who presented with weakness and loose stools. Patient recently hospitalized at the beginning of month with antibiotic therapy at that time. She reports often developing loose stools in association with antibiotic therapy and subsequently had developed weakness. Testing for Clostridium difficile negative on presentation. Stool lactoferrin positive. Currently reporting that her bowel movements are more formed and soft. Unclear if symptoms are secondary to antibiotics effect with testing for Clostridium difficile negative and, with extensive stool studies still pending for investigation of other etiology, currently symptoms are improving. Current Visit: Yes Status: Acute Code(s): R19.7 - DIARRHEA, UNSPECIFIED SNOMED Code(s): 32961025 (2) ESRD (end stage renal disease) on dialysis Current Visit: Yes Status: Acute Code(s): N18.6 - END STAGE RENAL DISEASE; Z99.2 - DEPENDENCE ON RENAL DIALYSIS SNOMED Code(s): 304754703 Plan: Supportive care Okay for diet as tolerated Continue Imodium as needed for symptomatic treatment of diarrhea Probiotic added Appreciate recommendations from nephrology and infectious disease service Continue to monitor stool output EIA for Clostridium difficile negative, stool lactoferrin positive and other stool studies pending Thank you for allowing us to participate in the care of the patient
[2020-02-25 06:48] LABS: Glucose,Whole Blood 103 mg/dL (75-99)
[2020-02-25] MEDS: INSULIN ASPART (NovoLOG) 100 UNIT/ML VIAL SQ SCH ×4 (07:23→21:30)
[2020-02-25] MEDS: FLECAINIDE 50 MG TAB PO SCH ×2 (08:08→20:53)
[2020-02-25] MEDS: NYSTATIN 100,000 UNIT/ML SUSP 500,000 UNIT/5 ML CUP PO SCH ×4 (08:08→20:53)
[2020-02-25] MEDS: allopurinoL 100 MG TAB PO SCH (08:08)
[2020-02-25] MEDS: APIXABAN 2.5 MG TABLET PO SCH ×2 (08:09→18:45)
[2020-02-25] MEDS: LACTOBACILLUS ACIDOPH & BULGAR 1 EACH PACKET PO SCH ×3 (08:09→20:53)
[2020-02-25] MEDS: ERTAPENEM 0.5 GM in SODIUM CHLORIDE 0.9% 50 ML IVPB SCH (08:09)
[2020-02-25] MEDS: ACETAMINOPHEN TAB 500 MG TAB PO PRN ×2 (08:15→20:56)
--- NOTE | 2020-02-25 10:41 | P.PN ---
Subjective Patient is seen in follow-up for end-stage renal disease. She is maintained on hemodialysis on Friday schedule. Diarrhea is much better but not completely resolved. Oral intake is fair. No vomiting. Vital signs are stable. General: The patient appeared well nourished and normally developed. HEENT: Head exam is unremarkable. Neck is without jugular venous distension. LUNGS: Lungs are clear to auscultation and percussion. Breath sounds decreased. HEART: Rate and Rhythm are regular. ABDOMEN: soft, nontender. EXTREMITITES: No edema. Objective - Vital Signs Vital signs: Vital Signs Temp 97.5 F L 02/25/20 07:00 Pulse 61 02/25/20 07:00 Resp 16 02/25/20 07:00 BP 107/62 02/25/20 07:00 Pulse Ox 98 02/25/20 07:00 Intake & Output 02/24/20 02/25/20 02/25/20 18:59 06:59 18:59 Other: Voiding Method Bedpan # Voids 1 1 # Bowel Movements 1 - Labs CBC & Chem 7: 02/23/20 07:21 02/24/20 09:02 Labs: Abnormal Lab Results - Last 24 Hours (Table) 02/24/20 02/24/20 02/25/20 Range/Units 11:30 16:26 06:47 POC Glucose (mg/dL) 143 H 189 H 103 H (75-99) mg/dL Microbiology - Last 24 Hours (Table) 02/22/20 20:07 Urine Culture - Final Urine,Voided Monalisa albicans 02/22/20 15:48 Stool Culture - Preliminary Stool Assessment and Plan Plan: Assessment: 1. End-stage renal disease maintained on hemodialysis on Friday schedule via right chest permacath. She also has a maturing AV fistula. 2. Diarrhea. C. diff negative. Patient did complete recent course of antibiotics. Stool culture pending. 3. Hypokalemia from poor intake. Better post replacement. 4. Metabolic acidosis secondary to chronic kidney disease. Better. 5. Recent ESBL UTI status post antibiotics. UA again suggestive of UTI. Urine culture this admission positive for Monalisa. Plan: Hemodialysis today with goal 1.5-2 L ultrafiltration. Follow-up cultures. Phosphorus normal.
[2020-02-25 11:25] LABS: Glucose,Whole Blood 133 mg/dL (75-99)
[2020-02-25] MEDS: CHOLESTYRAMINE (WITH SUGAR) 4 GM PACKET PO SCH ×2 (13:00→16:42)
[2020-02-25] MEDS: atenoloL 50 MG TAB PO SCH (13:00)
--- NOTE | 2020-02-25 16:01 | P.PN ---
Subjective Progress Note Date: 02/25/20 Principal diagnosis: diarrhea Patient complained about the sutures left over on her right arm. She was supposed to see vascular surgery today in the office in order to remove those sutures. Doing well otherwise, no overnight issues. Objective - Vital Signs Vital signs: Vital Signs Temp 97.9 F 02/25/20 14:56 Pulse 60 02/25/20 14:56 Resp 18 02/25/20 14:56 BP 139/59 02/25/20 14:56 Pulse Ox 96 02/25/20 14:56 Intake & Output 02/24/20 02/25/20 02/25/20 18:59 06:59 18:59 Intake Total 500 Balance 500 Intake: Oral 500 Other: Voiding Method Bedpan Toilet # Voids 1 1 # Bowel Movements 1 - Exam Constitutional: No acute distress, conversant, pleasant Eyes:Anicteric sclerae, moist conjunctiva, no lid-lag, PERRLA, ENMT: Oropharynx clear, no erythema, exudates Neck: Supple, FROM, no masses, or JVD, No carotid bruits, No thyromegaly Lungs: Clear to auscultation, Clear to percussion, Normal respiratory effort, no accessory muscle use Cardiovascular: Heart regular in rate and rhythm, No murmurs, gallops, or rubs, No peripheral edema Abdominal: Soft, Nontender, no guarding, rebound or rigidity, Normoactive bowel sounds, No hepatomegaly, No splenomegaly, No palpable mass Skin: Normal temperature, tone, texture, turgor, no induration, No subcutaneous nodules, No rash, lesions, No ulcers Extremities: No digital cyanosis, No clubbing, Pedal pulses intact and symmetrical, Radial pulses intact and symmetrical, No calf tenderness Psychiatric: Alert and oriented to person, place and time, appropriate affect, intact judgement Neuro: Muscles Strength 5/5 in all 4 extremities, Sensation to light touch grossly present throughout, Cranial nerves II-XII grossly intact, no focal sensory deficits - Labs CBC & Chem 7: 02/23/20 07:21 02/24/20 09:02 Labs: Abnormal Lab Results - Last 24 Hours (Table) 02/24/20 02/25/20 02/25/20 Range/Units 16:26 06:47 11:24 POC Glucose (mg/dL) 189 H 103 H 133 H (75-99) mg/dL Microbiology - Last 24 Hours (Table) 02/22/20 20:07 Urine Culture - Final Urine,Voided Monalisa albicans 02/22/20 15:48 Stool Culture - Preliminary Stool Assessment and Plan Plan: Severe diarrhea, acute dehydration Could be side effects from antibiotics treatment C.diff negative, Stool for lactoferrin positive, Stool cultures negative On immodium when necessary UTI Received 3 days of invanz Urine cultures growing Monalisa ID recommended fluconazole 200 mg 1 Lactic acidosis Resolved ESRD Nephrology following Dialysis Diabetes type 2 Sliding scale insulin Chronic Atrial Fibrillation, CHF GERD/Reflux, Hyperlipidemia, Hypertension, Hypothyroidism All stable resume meds Disposition: Rehabilitation Anticipated discharge: Friday
[2020-02-25 16:33] LABS: Glucose,Whole Blood 97 mg/dL (75-99)
--- NOTE | 2020-02-25 16:52 | PN ---
PROGRESS NOTE DATE OF SERVICE: 02/25/2020 REASON FOR FOLLOWUP: UTI, diarrhea and oral thrush. INTERVAL HISTORY: The patient is currently afebrile. The patient is breathing comfortably. The patient denies having any chest pain or shortness of breath or cough. Her oral sores have improved. No nausea or vomiting. Still complaining of diarrhea; did have about 2 episodes today. PHYSICAL EXAMINATION: Blood pressure 139/59 with a pulse of 60, temperature 97.9. She is 96% on room air. General description is an elderly female up in the chair in no distress. RESPIRATORY SYSTEM: Unlabored breathing. Clear to auscultation anteriorly. HEART: S1, S2. Regular rate and rhythm. ABDOMEN: Soft. No tenderness. LABS: No new labs have been obtained today. Urine has been finalized with Monalisa albicans. Stool culture is negative. Stool for C difficile was negative. DIAGNOSTIC IMPRESSION/PLAN: 1. Patient admitted to hospital with acute diarrhea with concern for possible infectious etiology in this patient who has been exposed to antibiotic recently. The patient's stool for C difficile was negative. Cultures so far pending. Continue the Questran for symptomatic relief. 2. Patient with a positive urinalysis with concern for urinary tract infection. Initial cultures ESBL now showing Monalisa albicans, possible colonizer. Will give her one dose of Diflucan and discontinue Invanz. 3. Oral thrush. Continue nystatin swish and swallow. MMODL / IJN: [id number] / MTDD
[2020-02-25] MEDS ORDERED: FLUCONAZOLE 100 MG TAB PO ONE (17:00)
[2020-02-25] MEDS: PANTOPRAZOLE 40 MG TABLET PO SCH (20:53)
[2020-02-25] MEDS: atenoloL 25 MG TAB PO SCH (20:53)
[2020-02-25] MEDS: ATORVASTATIN 10 MG TAB PO SCH (20:53)
[2020-02-25] MEDS: LEVOTHYROXINE 100 MCG TAB PO SCH (20:53)
[2020-02-25 21:10] LABS: Glucose,Whole Blood 175 mg/dL (75-99)
--- NOTE | 2020-02-25 22:04 | PN ---
PROGRESS NOTE DATE OF SERVICE: 02/25/2020 Patient is an 84-year-old pleasant white female admitted to the hospital with urinary tract infection and presently on broad-spectrum antibiotics. Since being in the hospital she started having severe diarrhea. She was having 5-6 loose watery bowel movements with no bleeding. Stool for C difficile toxin was negative. She was started on Imodium as well as Questran and this morning she is feeling better. She had about two bowel movements today which were soft in consistency. She reports no abdominal pain. No nausea, vomiting. Presently undergoing hemodialysis. EXAMINATION: Appears comfortable, no apparent distress. VITAL SIGNS: Stable. Blood pressure is 112/88, pulse rate 86 per minute and afebrile. HEENT examination unremarkable. Conjunctivae pink, sclerae anicteric. Oral cavity no lesions. NECK: No JVD or lymph node enlargement. CHEST: Clear to auscultation. HEART: Regular rate and rhythm. ABDOMEN: Soft. ( ). ASSESSMENT: 1. ( ) Clostridium difficile toxin was negative. The patient presently is on Imodium and Questran and her symptoms are gradually improving. 2. End-stage renal disease, on hemodialysis. 3. History of hypertension and diabetes mellitus. RECOMMENDATIONS: 1. Continue with Imodium as needed. 2. Questran one packet daily. 3. Continue with symptomatic and supportive care. 4. No plans on any endoscopic intervention. Thank you for this consultation. MMODL / IJN: [id number] /
[2020-02-26 00:24] LABS: Hepatitis B Surface AB- Quant 3.5 mIU/mL; Hepatitis B Surface Antibody Non-Reactive (Non-Reactive); Hepatitis B Surface Antigen Non-Reactive (Non-Reactive)
[2020-02-26] MEDS: LOPERAMIDE 2 MG CAP PO PRN ×2 (01:02→17:42)
[2020-02-26 06:52] LABS: Glucose,Whole Blood 109 mg/dL (75-99)
--- NOTE | 2020-02-26 07:11 | OP ---
OPERATIVE REPORT Yamilet is an 84-year-old female, well known to me. We created a basilic brachial fistula and then patient had a ( ) in the basilic vein. She came with diarrhea and abdominal pain. She has been admitted. The patient has a right IJ catheter, having dialysis. PHYSICAL EXAMINATION: NECK: Supple. CHEST: Clear. The patient has a right IJ catheter. ABDOMEN: Soft. There is a good thrill present in the fistula graft and suggests healing good. PLAN: We will remove the stitches and the patient will follow up in my office in a month for ultrasound of the right arm. MMODL / IJN: [id number] /
[2020-02-26] MEDS: NYSTATIN 100,000 UNIT/ML SUSP 500,000 UNIT/5 ML CUP PO SCH ×4 (08:12→21:04)
[2020-02-26] MEDS: FLECAINIDE 50 MG TAB PO SCH ×2 (08:12→21:04)
[2020-02-26] MEDS: LACTOBACILLUS ACIDOPH & BULGAR 1 EACH PACKET PO SCH ×3 (08:12→21:04)
[2020-02-26] MEDS: CHOLESTYRAMINE (WITH SUGAR) 4 GM PACKET PO SCH ×2 (08:12→17:42)
[2020-02-26] MEDS: INSULIN ASPART (NovoLOG) 100 UNIT/ML VIAL SQ SCH ×4 (08:12→20:50)
[2020-02-26] MEDS: allopurinoL 100 MG TAB PO SCH (08:12)
[2020-02-26] MEDS: APIXABAN 2.5 MG TABLET PO SCH ×2 (08:12→17:43)
--- NOTE | 2020-02-26 09:57 | P.PN ---
Subjective Patient is seen in follow-up for end-stage renal disease. She is maintained on hemodialysis on Friday schedule. Diarrhea is much better but not completely resolved. States she had 1 loose bowel movement overnight and again this morning. Oral intake is fair. No vomiting. Vital signs are stable. General: The patient appeared well nourished and normally developed. HEENT: Head exam is unremarkable. Neck is without jugular venous distension. LUNGS: Lungs are clear to auscultation and percussion. Breath sounds decreased. HEART: Rate and Rhythm are regular. ABDOMEN: soft, nontender. EXTREMITITES: No edema. Objective - Vital Signs Vital signs: Vital Signs Temp 98.1 F 02/26/20 07:00 Pulse 67 02/26/20 07:00 Resp 16 02/26/20 07:00 BP 106/83 02/26/20 07:00 Pulse Ox 93 L 02/26/20 07:00 Intake & Output 02/25/20 02/26/20 02/26/20 18:59 06:59 18:59 Intake Total 900 0 Output Total 2400 1 Balance -1500 -1 Intake: Intake, IV Titration 0 Amount Lactated Ringers 1,000 ml 0 @ 50 mls/hr IV .Q20H [facility] Rx#:[id number] Oral 500 Hemodialysis 400 Output: Stool 1 Hemodialysis 2400 Other: Voiding Method Toilet # Voids 1 # Bowel Movements 1 - Labs CBC & Chem 7: 02/23/20 07:21 02/24/20 09:02 Labs: Abnormal Lab Results - Last 24 Hours (Table) 02/25/20 02/25/20 02/26/20 Range/Units 11:24 21:09 06:51 POC Glucose (mg/dL) 133 H 175 H 109 H (75-99) mg/dL Microbiology - Last 24 Hours (Table) 02/22/20 15:48 Stool Culture - Final Stool Assessment and Plan Plan: Assessment: 1. End-stage renal disease maintained on hemodialysis on Friday schedule via right chest permacath. She also has a maturing AV fistula. 2. Diarrhea. C. diff negative. Patient did complete recent course of antibiotics. Stool culture negative. 3. Hypokalemia from poor intake. Better post replacement. 4. Metabolic acidosis secondary to chronic kidney disease. Better. 5. Recent ESBL UTI status post antibiotics. UA again suggestive of UTI. Urine culture this admission positive for Monalisa. Plan: Hemodialysis Friday. Follow-up cultures. Phosphorus normal.
[2020-02-26 11:32] LABS: Glucose,Whole Blood 112 mg/dL (75-99)
[2020-02-26] MEDS: atenoloL 50 MG TAB PO SCH (12:33)
--- NOTE | 2020-02-26 13:23 | PN ---
PROGRESS NOTE DATE OF SERVICE: 02/26/2020 Patient is a 74-year-old pleasant white female with history of end-stage renal disease, on hemodialysis, admitted to hospital with UTI and subsequently developed severe diarrhea. She is doing much better today. She remains on antibiotics. In regards to the diarrhea, C diff toxin was negative. She is presently receiving Questran and her stool has been more solid. She had two bowel movements last night and as per the nursing staff, there was no diarrhea. PHYSICAL EXAMINATION: Appears comfortable, no apparent distress. Vital signs stable. Blood pressure 106/80, pulse rate 67, temperature 98.1. HEENT examination unremarkable. Conjunctivae pink. Sclerae anicteric. Oral cavity no lesions. NECK: No JVD or lymph node enlargement. CHEST was clear to auscultation. HEART: Regular rate and rhythm. ABDOMEN: Soft. Bowel sounds are positive. EXTREMITIES: No pedal edema. NEUROLOGIC: Alert and oriented x3. No focal deficits. LABS: From today, none available. IMPRESSION: 1. Acute onset of diarrhea for the last 3-4 days duration since this hospitalization, probably antibiotic related. C difficile toxin is negative. On Questran, doing much better. Also, on Imodium as needed but she has not needed in the last one day. 2. Urinary tract infection, on broad-spectrum antibiotics. 3. End-stage renal disease, on hemodialysis. RECOMMENDATION: 1. Continue with Imodium and Questran as needed. 2. Continue antibiotics for UTI. 3. Advance diet as tolerated. 4. No plans on any endoscopic intervention. Thank you for this consultation. MMODL / IJN: [id number] /
--- NOTE | 2020-02-26 15:36 | PN ---
PROGRESS NOTE DATE OF SERVICE: 02/26/2020 REASON FOR FOLLOW UP: 1. Diarrhea. 2. UTI. 3. Oral thrush. INTERVAL HISTORY: Patient is currently afebrile. The patient is feeling better. Breathing comfortably. Oral sores have improved. No chest pain, shortness of breath or cough. No abdominal pain. Did have one loose stool today. PHYSICAL EXAMINATION: Blood pressure 106/83 with a pulse of 67, temperature 98.1. General description is an elderly female lying in bed in no distress .Respiratory system: Unlabored breathing, clear to auscultation anteriorly. Heart S1, S2. Regular rate and rhythm. Abdomen soft, no tenderness. LABS: No new labs have been obtained today. DIAGNOSTIC IMPRESSION AND PLAN: 1. Patient admitted to the hospital with diarrhea with concern for possible infectious colitis. However, stool culture and stool for C. diff negative. Continue with Questran for symptomatic relief. 2. Positive UA. No significant urine symptoms. Culture with Monalisa albicans. Received one dose of Diflucan. No need for further antifungal at this point. 3. Thrush. Continue nystatin swish and swallow for about a week. MMODL / IJN: [id number] /
--- NOTE | 2020-02-26 15:56 | P.PN ---
Subjective Progress Note Date: 02/26/20 Principal diagnosis: diarrhea Patient continues to have diarrhea. She had a total of 3 loose stools yesterday. No nausea or vomiting. No significant abdominal pain. Objective - Vital Signs Vital signs: Vital Signs Temp 98.3 F 02/26/20 14:34 Pulse 69 02/26/20 14:34 Resp 16 02/26/20 14:34 BP 110/52 02/26/20 14:34 Pulse Ox 98 02/26/20 14:34 Intake & Output 02/25/20 02/26/20 02/26/20 18:59 06:59 18:59 Intake Total 900 0 Output Total 2400 1 Balance -1500 -1 Intake: Intake, IV Titration 0 Amount Lactated Ringers 1,000 ml 0 @ 50 mls/hr IV .Q20H [facility] Rx#:[id number] Oral 500 Hemodialysis 400 Output: Stool 1 Hemodialysis 2400 Other: Voiding Method Toilet # Voids 1 1 # Bowel Movements 1 1 - Exam Constitutional: No acute distress, conversant, pleasant Eyes:Anicteric sclerae, moist conjunctiva, no lid-lag, PERRLA, ENMT: Oropharynx clear, no erythema, exudates Neck: Supple, FROM, no masses, or JVD, No carotid bruits, No thyromegaly Lungs: Clear to auscultation, Clear to percussion, Normal respiratory effort, no accessory muscle use Cardiovascular: Heart regular in rate and rhythm, No murmurs, gallops, or rubs, No peripheral edema Abdominal: Soft, Nontender, no guarding, rebound or rigidity, Normoactive bowel sounds, No hepatomegaly, No splenomegaly, No palpable mass Skin: Normal temperature, tone, texture, turgor, no induration, No subcutaneous nodules, No rash, lesions, No ulcers Extremities: No digital cyanosis, No clubbing, Pedal pulses intact and symmetrical, Radial pulses intact and symmetrical, No calf tenderness Psychiatric: Alert and oriented to person, place and time, appropriate affect, intact judgement Neuro: Muscles Strength 5/5 in all 4 extremities, Sensation to light touch grossly present throughout, Cranial nerves II-XII grossly intact, no focal sensory deficits - Labs CBC & Chem 7: 02/23/20 07:21 02/24/20 09:02 Labs: Abnormal Lab Results - Last 24 Hours (Table) 02/25/20 02/26/20 02/26/20 Range/Units 21:09 06:51 11:31 POC Glucose (mg/dL) 175 H 109 H 112 H (75-99) mg/dL Microbiology - Last 24 Hours (Table) 02/22/20 15:48 Stool Culture - Final Stool Assessment and Plan Plan: Severe diarrhea, acute dehydration Could be side effects from antibiotics treatment C.diff negative, Stool for lactoferrin positive, Stool cultures negative On Questran and immodium when necessary UTI Received 3 days of invanz Urine cultures growing Monalisa ID recommended fluconazole 200 mg 1 Lactic acidosis Resolved ESRD Nephrology following Dialysis Diabetes type 2 Sliding scale insulin Chronic Atrial Fibrillation, CHF GERD/Reflux, Hyperlipidemia, Hypertension, Hypothyroidism All stable resume meds Disposition: Rehabilitation Anticipated discharge: Friday
[2020-02-26 16:47] LABS: Glucose,Whole Blood 224 mg/dL (75-99)
[2020-02-26 20:22] LABS: Glucose,Whole Blood 118 mg/dL (75-99)
[2020-02-26] MEDS: PANTOPRAZOLE 40 MG TABLET PO SCH (21:04)
[2020-02-26] MEDS: LACTATED RINGERS 1,000 ML IV SCH (21:04)
[2020-02-26] MEDS: ATORVASTATIN 10 MG TAB PO SCH (21:04)
[2020-02-26] MEDS: atenoloL 25 MG TAB PO SCH (21:04)
[2020-02-26] MEDS: LEVOTHYROXINE 100 MCG TAB PO SCH (21:04)
[2020-02-27 06:53] LABS: Glucose,Whole Blood 113 mg/dL (75-99)
--- NOTE | 2020-02-27 09:07 | P.PN ---
Subjective Patient is seen in follow-up for end-stage renal disease. She is maintained on hemodialysis on Friday schedule. Diarrhea is much better but not completely resolved. States she had 3 loose bowel movements since midnight. Oral intake is fair. No vomiting. Vital signs are stable. General: The patient appeared well nourished and normally developed. HEENT: Head exam is unremarkable. Neck is without jugular venous distension. LUNGS: Lungs are clear to auscultation and percussion. Breath sounds decreased. HEART: Rate and Rhythm are regular. ABDOMEN: Soft, nontender. EXTREMITITES: No edema. Objective - Vital Signs Vital signs: Vital Signs Temp 98.6 F 02/27/20 03:34 Pulse 62 02/27/20 03:34 Resp 17 02/27/20 03:34 BP 100/46 02/27/20 03:34 Pulse Ox 94 L 02/27/20 03:34 Intake & Output 02/26/20 02/27/20 02/27/20 18:59 06:59 18:59 Intake Total 1250 Output Total 2 Balance 1248 Intake: Intake, IV Titration 750 Amount Lactated Ringers 1,000 ml 750 @ 50 mls/hr IV .Q20H [facility] Rx#:[id number] Oral 500 Output: Stool 2 Other: Voiding Method Toilet # Voids 1 2 # Bowel Movements 1 - Labs CBC & Chem 7: 02/23/20 07:21 02/24/20 09:02 Labs: Abnormal Lab Results - Last 24 Hours (Table) 02/26/20 02/26/20 02/26/20 Range/Units 11:31 16:46 20:18 POC Glucose (mg/dL) 112 H 224 H 118 H (75-99) mg/dL 02/27/20 Range/Units 06:52 POC Glucose (mg/dL) 113 H (75-99) mg/dL Assessment and Plan Plan: Assessment: 1. End-stage renal disease maintained on hemodialysis on Friday schedule via right chest permacath. She also has a maturing AV fistula. 2. Diarrhea. C. diff negative. Patient did complete recent course of antibiotics. Stool culture negative. 3. Hypokalemia from poor intake. Better post replacement. 4. Metabolic acidosis secondary to chronic kidney disease. Better. 5. Recent ESBL UTI status post antibiotics. UA again suggestive of UTI. Urine culture this admission positive for Monalisa. Plan: Hemodialysis Friday. Phosphorus normal.
[2020-02-27] MEDS: INSULIN ASPART (NovoLOG) 100 UNIT/ML VIAL SQ SCH ×4 (09:23→21:09)
[2020-02-27] MEDS: NYSTATIN 100,000 UNIT/ML SUSP 500,000 UNIT/5 ML CUP PO SCH ×4 (09:29→21:09)
[2020-02-27] MEDS: CHOLESTYRAMINE (WITH SUGAR) 4 GM PACKET PO SCH ×2 (09:29→17:43)
[2020-02-27] MEDS: FLECAINIDE 50 MG TAB PO SCH ×2 (09:29→21:09)
[2020-02-27] MEDS: LACTOBACILLUS ACIDOPH & BULGAR 1 EACH PACKET PO SCH ×3 (09:29→21:09)
[2020-02-27] MEDS: allopurinoL 100 MG TAB PO SCH (09:29)
[2020-02-27] MEDS: APIXABAN 2.5 MG TABLET PO SCH ×2 (09:29→17:37)
[2020-02-27 11:25] LABS: Glucose,Whole Blood 130 mg/dL (75-99)
--- NOTE | 2020-02-27 12:00 | P.PN ---
Subjective Progress Note Date: 02/27/20 Principal diagnosis: diarrhea Patient is feeling better. Stools are more formed compared to yesterday. Only had 2 bowel movements yesterday, one last night. No fevers or chills. Objective - Vital Signs Vital signs: Vital Signs Temp 97.8 F 02/27/20 07:00 Pulse 62 02/27/20 07:00 Resp 16 02/27/20 07:00 BP 148/69 02/27/20 07:00 Pulse Ox 98 02/27/20 07:00 Intake & Output 02/26/20 02/27/20 02/27/20 18:59 06:59 18:59 Intake Total 1250 Output Total 2 Balance 1248 Intake: Intake, IV Titration 750 Amount Lactated Ringers 1,000 ml 750 @ 50 mls/hr IV .Q20H [facility] Rx#:[id number] Oral 500 Output: Stool 2 Other: Voiding Method Toilet # Voids 1 2 # Bowel Movements 1 - Exam Constitutional: No acute distress, conversant, pleasant Eyes:Anicteric sclerae, moist conjunctiva, no lid-lag, PERRLA, ENMT: Oropharynx clear, no erythema, exudates Neck: Supple, FROM, no masses, or JVD, No carotid bruits, No thyromegaly Lungs: Clear to auscultation, Clear to percussion, Normal respiratory effort, no accessory muscle use Cardiovascular: Heart regular in rate and rhythm, No murmurs, gallops, or rubs, No peripheral edema Abdominal: Soft, Nontender, no guarding, rebound or rigidity, Normoactive bowel sounds, No hepatomegaly, No splenomegaly, No palpable mass Skin: Normal temperature, tone, texture, turgor, no induration, No subcutaneous nodules, No rash, lesions, No ulcers Extremities: No digital cyanosis, No clubbing, Pedal pulses intact and symmetrical, Radial pulses intact and symmetrical, No calf tenderness Psychiatric: Alert and oriented to person, place and time, appropriate affect, intact judgement Neuro: Muscles Strength 5/5 in all 4 extremities, Sensation to light touch grossly present throughout, Cranial nerves II-XII grossly intact, no focal sensory deficits - Labs CBC & Chem 7: 02/23/20 07:21 02/24/20 09:02 Labs: Abnormal Lab Results - Last 24 Hours (Table) 02/26/20 02/26/20 02/27/20 Range/Units 16:46 20:18 06:52 POC Glucose (mg/dL) 224 H 118 H 113 H (75-99) mg/dL 02/27/20 Range/Units 11:24 POC Glucose (mg/dL) 130 H (75-99) mg/dL Assessment and Plan Plan: Severe diarrhea, acute dehydration Improving Could be side effects from antibiotics treatment C.diff negative, Stool for lactoferrin positive, Stool cultures negative On Questran and immodium when necessary UTI Received 3 days of invanz Urine cultures growing Monalisa ID recommended fluconazole 200 mg 1 Lactic acidosis Resolved ESRD Nephrology following Dialysis Diabetes type 2 Sliding scale insulin Chronic Atrial Fibrillation, CHF GERD/Reflux, Hyperlipidemia, Hypertension, Hypothyroidism All stable resume meds Disposition: Rehabilitation Anticipated discharge: Friday
[2020-02-27] MEDS: atenoloL 50 MG TAB PO SCH (13:17)
--- NOTE | 2020-02-27 14:21 | PN ---
PROGRESS NOTE DATE OF SERVICE: 02/27/2020 Patient is an 84-year-old pleasant white female admitted to the hospital with UTI on broad-spectrum antibiotics. She developed diarrhea while in the hospital and presently receiving Questran 1 packet 3 times daily. Her diarrhea has resolved. She had 2 solid bowel movements. She is however complaining of Questran causing abdominal discomfort and nausea. PHYSICAL EXAMINATION: Appears comfortable in no apparent distress. Vital signs stable. Blood pressure is 143/89, pulse rate 62, temperature 97.8. HEENT examination unremarkable. Conjunctivae pink. Sclerae anicteric. Oral cavity no lesions. NECK: No JVD or lymph node enlargement. Chest was clear to auscultation. HEART: Regular rate and rhythm. ABDOMEN: Soft. Bowel sounds are positive. No organomegaly. Extremities: No pedal edema. Neuro: She is alert and oriented x3. No focal deficits. No labs available from today. IMPRESSION: 1. Acute urinary tract infection, on broad-spectrum antibiotics. 2. Diarrhea probably related to antibiotics. C. dif negative, on Questran one packet 3 times daily. Doing much better. Diarrhea resolved. 3. Nausea secondary to Questran. RECOMMENDATIONS: 1. We will decrease Questran to one packet twice daily and after that if she continues to have solid bowel movements, the Questran can be given only as needed. 2. Continue broad-spectrum antibiotics for UTI. 3. We will sign off at this time. Please call us if needed. Thank you for this consultation. MMODL / IJN: [id number] /
[2020-02-27 17:15] LABS: Glucose,Whole Blood 121 mg/dL (75-99)
[2020-02-27] MEDS: LACTATED RINGERS 1,000 ML IV SCH (17:37)
[2020-02-27] MEDS: atenoloL 25 MG TAB PO SCH (21:09)
[2020-02-27] MEDS: PANTOPRAZOLE 40 MG TABLET PO SCH (21:09)
[2020-02-27] MEDS: LEVOTHYROXINE 100 MCG TAB PO SCH (21:09)
[2020-02-27] MEDS: ATORVASTATIN 10 MG TAB PO SCH (21:09)
[2020-02-27 21:21] LABS: Glucose,Whole Blood 148 mg/dL (75-99)
--- NOTE | 2020-02-28 05:16 | PN ---
PROGRESS NOTE DATE OF SERVICE: 02/27/2020 REASON FOR FOLLOWUP: 1. Diarrhea. 2. Possible UTI. 3. Thrush. INTERVAL HISTORY: The patient is currently afebrile. The patient is feeling better. Breathing comfortably. Oral soreness has improved. No chest pain, shortness of breath or cough. No abdominal pain. Still complaining of some diarrhea though, but no worsening. PHYSICAL EXAMINATION: Blood pressure 148/63 with a pulse of 62, temperature 97.7. She is 100% on room air. General description is an elderly female lying in bed in no distress. RESPIRATORY SYSTEM: Unlabored breathing, clear to auscultation anteriorly. HEART: S1, S2. Regular rate and rhythm. ABDOMEN: Soft, no tenderness. LABS: No new labs have been obtained today. DIAGNOSTIC IMPRESSION AND PLAN: 1. Patient admitted to the hospital with diarrhea in this patient. Stool for Clostridium difficile is negative. Stool culture negative as well. Continue with Questran for symptomatic relief. 2. Patient with positive UA concern for urinary tract infection. Urine did show Monalisa. Did get a dose of Diflucan to be enough with her medication currently on. 3. Oral thrush. Continue with nystatin swish and swallow for about a week. MMODL / IJN: [id number] / [id number]
[2020-02-28 07:01] LABS: Glucose,Whole Blood 115 mg/dL (75-99)
[2020-02-28] MEDS: INSULIN ASPART (NovoLOG) 100 UNIT/ML VIAL SQ SCH ×3 (07:11→17:03)
[2020-02-28] MEDS: APIXABAN 2.5 MG TABLET PO SCH ×2 (07:15→16:02)
[2020-02-28] MEDS: allopurinoL 100 MG TAB PO SCH (07:15)
[2020-02-28] MEDS: FLECAINIDE 50 MG TAB PO SCH (07:16)
[2020-02-28] MEDS: LACTOBACILLUS ACIDOPH & BULGAR 1 EACH PACKET PO SCH ×2 (07:16→16:02)
[2020-02-28] MEDS: NYSTATIN 100,000 UNIT/ML SUSP 500,000 UNIT/5 ML CUP PO SCH ×2 (07:16→12:47)
[2020-02-28 08:45] VITALS: RESP 18
[2020-02-28] MEDS: CHOLESTYRAMINE (WITH SUGAR) 4 GM PACKET PO SCH (09:19)
[2020-02-28 11:50] LABS: Glucose,Whole Blood 112 mg/dL (75-99)
[2020-02-28] MEDS: LACTATED RINGERS 1,000 ML IV SCH (11:59)
[2020-02-28] MEDS: atenoloL 50 MG TAB PO SCH (12:47)
--- NOTE | 2020-02-28 13:20 | PN ---
PROGRESS NOTE DATE OF SERVICE: 02/28/2020 REASON FOR FOLLOW UP: 1. Diarrhea. 2. Possible UTI. 3. Oral thrush. INTERVAL HISTORY: Patient is currently afebrile. The patient is breathing comfortably. The patient denies having any chest pain or shortness of breath or cough. No abdominal pain. Did have one loose stool today. PHYSICAL EXAMINATION: Blood pressure 131/61 with a pulse of 65, temperature 97.7. She is 98% on room air. General description: The patient is an elderly female lying in bed in no distress. Respiratory system: Unlabored breathing, clear to auscultation anteriorly. Heart S1, S2. Regular rate and rhythm. Abdomen soft, no tenderness. LABS: No new labs have been obtained today. DIAGNOSTIC IMPRESSION/PLAN: 1. Patient admitted to the hospital with diarrhea with concern for possible infectious etiology though cultures remain to be negative. Currently on Questran for symptomatic relief. 2. Urinary tract infection, adequately treated. 3. Oral thrush, continue nystatin swish and swallow. MMODL / IJN: [id number] /
[2020-02-28 15:31] VITALS: BP 106/63; PULSE 73; TEMP 97.8
--- NOTE | 2020-02-28 15:50 | P.DS ---
Providers Date of admission: 02/22/20 14:29 Expected date of discharge: 02/28/20 Attending physician: Meghann Bazan DO Consults: 02/22/20 14:38 Consult Physician Stat Consulting Provider: Shaji Velazco Consult Reason/Comments: Dialysis Do you want consulting provider notified?: Yes 02/23/20 07:59 Consult Physician Routine Consulting Provider: Israel Ayon Consult Reason/Comments: uti Do you want consulting provider notified?: Yes 02/23/20 14:10 Consult Physician Routine Consulting Provider: Eloisa Brooks Consult Reason/Comments: diarrhea Do you want consulting provider notified?: Yes 02/25/20 09:16 Consult Physician Routine Consulting Provider: Erik Argueta Consult Reason/Comments: staple removal Do you want consulting provider notified?: Yes Primary care physician: [facility] Course: 84-year-old female presents emergency Department from home chief complaint of weakness. Due to the weakness she was not able to make it to dialysis. She stated that her weakness is secondary to diarrhea which started several days ago. Earlier in the month she has similar presentation with diarrhea and UTI induced weakness, she grew ESBL in the urine and she just recently finished 10 days course of IV Invanz. Patient states that every time she has UTI she ended with diarrhea. She states that she feels like she is retaining fluid at this point. She also had nausea but no vomiting. Patient denied any fevers or chills no chest pain no complains abdominal pain denies any melena hematochezia. In the emergency department she was hemodynamically stable, exam was unrevealing, labs were for only significant for low potassium at 3.1 and her lactic acid is 2.3. Rest of labs were reassuring. She was admitted to the hospital for further evaluation and management. Patient was admitted to the hospital for dehydration and intractable diarrhea. She was started on gentle IV fluids hydration. Diarrhea was worked up, she tested negative for C. diff, stool for lactoferrin was positive. Stool cultures were negative. UA was positive for UTI and due to that she was started on Invanz. Patient was also seen by ID and GI. Patient was started on questran and Imodium. GI did not recommend any further intervention like colonoscopy. ID recommended treating the UTI only for 3 days as patient was not severely sick. Patient was also resumed on her dialysis regimen by nephrology service. She did have old harmeet on her right arm from previous attempt to do an AV fistula. Those were taken out by vascular surgery. Despite improvement in her diarrhea patient continued to be significantly weak, was seen by physical therapy and recommended rehabilitation placement. She will be discharged to rehab in a stable condition. Time for discharge 35 min Patient Condition at Discharge: Fair Plan - Discharge Summary Discharge Rx Participant: No New Discharge Prescriptions: Continue Levothyroxine Sodium [Synthroid] 100 mcg PO HS@2100 Flecainide [Tambocor] 50 mg PO BID@0700,2100 Allopurinol [Zyloprim] 100 mg PO DAILY@0700 Atenolol [Tenormin] 50 mg PO DAILY@1200 Acetaminophen [Tylenol] 1,000 mg PO Q8H PRN MDD 3000 MG PRN Reason: Pain Or Fever > 100.5 Cholecalciferol (Vitamin D3) [Vitamin D3] 4,000 unit PO DAILY@1200 Pantoprazole [Protonix] 40 mg PO HS@2100 Ondansetron [Zofran] 4 mg PO Q8HR PRN PRN Reason: Nausea Folic Acid-Vit B Complex-Vit C [Nephrocaps] 1 cap PO DAILY@1700 Torsemide [Demadex] 40 mg PO SUTUTHSA@0700 Atenolol [Tenormin] 25 mg PO HS@2100 Simvastatin [Zocor] 20 mg PO HS@2100 Insulin Lispro [humaLOG Kwikpen] See Protocol SQ AC-TID Banatrol Plus Packet 1 packet PO TID@0700,1200,1700 Kaopectate Susp 262 mg PO DAILY PRN PRN Reason: Diarrhea Kaopectate Susp 262 mg PO BID@0700,1900 Torsemide [Demadex] 40 mg PO MOWEFR@1300 Apixaban [Eliquis] 2.5 mg PO BID@0700,1700 Discharge Medication List Levothyroxine Sodium [Synthroid] 100 mcg PO HS@2100 01/31/14 [History] Flecainide [Tambocor] 50 mg PO BID@0700,2100 10/12/16 [History] Allopurinol [Zyloprim] 100 mg PO DAILY@0700 01/18/17 [History] Atenolol [Tenormin] 50 mg PO DAILY@1200 10/10/17 [History] Acetaminophen [Tylenol] 1,000 mg PO Q8H PRN MDD 3000 MG 05/22/18 [History] Cholecalciferol (Vitamin D3) [Vitamin D3] 4,000 unit PO DAILY@1200 05/26/19 [History] Pantoprazole [Protonix] 40 mg PO HS@2100 08/16/19 [History] Atenolol [Tenormin] 25 mg PO HS@2100 02/04/20 [History] Folic Acid-Vit B Complex-Vit C [Nephrocaps] 1 cap PO DAILY@17002/04/20 [History] Insulin Lispro [humaLOG Kwikpen] See Protocol SQ AC-TID 02/04/20 [History] Ondansetron [Zofran] 4 mg PO Q8HR PRN 02/04/20 [History] Simvastatin [Zocor] 20 mg PO HS@209902/04/20 [History] Torsemide [Demadex] 40 mg PO SUTUTHSA@0700 02/04/20 [History] Apixaban [Eliquis] 2.5 mg PO BID@0700,1700 02/22/20 [History] Banatrol Plus Packet 1 packet PO TID@0700,1200,1700 02/22/20 [History] Kaopectate Susp 262 mg PO BID@0700,1900 02/22/20 [History] Kaopectate Susp 262 mg PO DAILY PRN 02/22/20 [History] Torsemide [Demadex] 40 mg PO MOWEFR@1300 02/22/20 [History] Follow up Appointment(s)/Referral(s): Phil Blood MD [Primary Care Provider] - 1-2 days
--- NOTE | 2020-02-28 16:05 | PN ---
PROGRESS NOTE Patient is seen for followup for end-stage renal disease. Patient is seen on dialysis. She is tolerating her treatment well. She denies any significant complaints. There are plans for discharge to rehab from hospitalization. It appears that patient will be going to [facility] and then transfer to [facility] once a bed is available there. She will be going to the [facility]. PHYSICAL EXAMINATION: On examination today, blood pressure 131/61, heart rate 65 per minute. She is afebrile. EXAMINATION OF THE HEART: S1 and S2. EXAMINATION OF LUNGS: Decreased breath sounds at bases. ABDOMEN: Soft, non-tender. Examination of lower extremities shows no significant edema. 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 LABS: Labs show potassium 3.8 on 02/24/2020. ASSESSMENT: 1. End-stage renal disease, on hemodialysis on a Friday, Friday, Friday schedule. Patient is being dialyzed today. If she is discharged, she can follow up as outpatient. Otherwise we will check labs tomorrow morning. 2. Status post recent urinary tract infection. Current urine culture growing Monalisa albicans. 3. Chronic kidney disease mineral bone disorder. 4. Diarrhea, currently resolved/significantly improved. Clostridium difficile toxin was negative. 5. Hypokalemia, status post replacement. PLAN: Next dialysis on Friday. Check labs tomorrow if patient is not discharged. Patient is encouraged to increase her oral intake. MMODL / IJN: [id number] /
[2020-02-28 16:51] LABS: Glucose,Whole Blood 180 mg/dL (75-99)
--- NOTE | 2020-03-01 09:04 | CDI ---
Documentation Clarification Form Date: 03/01/20 From: Josefina Pena Phone: If you have a question about this query, please contact Karina Juan, Community Living Specialist at [phone] between 8am and 5pm. Admit Date: 02/22/20 Discharge Date: 02/27/30 Patient Name: YOSELIN MINOR Visit Number: [id number] ATTENTION: The Clinical Documentation Specialists (CDI) and [facility] Coding Staff appreciate your assistance in clarifying documentation. Please respond to the clarification below the line at the bottom and electronically sign. The CDI & [facility] Coding staff will review the response and follow-up if needed. Please note: Queries are made part of the Legal Health Record. If you have any questions, please contact the author of this message via ITS. Dear Dr. Osman Mcmanus, Chronic CHF is documented in the H&P, Pns-02/22, 02/23, 02/24, 02/25 & 02/26. History/Risk Factors: HTN w ESRD & chronic CHF, BETINA, chronic atrial fib, thrush, UTI Clinical Indicators: Cardiovascular: Heart regular in rate and rhythm, No murmurs, gallops, or rubs. No peripheral edema VS/Pulse OX: T-98.0, P-78, R-16, BP-122/48, O2-96 BNP: 29404 10/25/19 Echocardiogram Results: Overall left ventricular systolic function is normal with EF between 555-605. Chest X Ray: Overall stable findings, cardiomegaly and low lung volumes with mild central vascular congestion. No new focal infiltrate. Treatment: Home med w no change: Demadex 40 mg PO MOWEFR @1300, Demadex 40 mg PO SUTUTHSA @0700 In your professional opinion, can you please clarify the type of chronic CHF if known? Systolic Heart Failure Diastolic Heart Failure Systolic & Diastolic Heart Failure Unable to Determine Other, please specify Diastolic Heart Failure MTDD
== END 2020-02-28 18:00 | DRG 393 ==
LOC: EC 11:48 → 6NMEDSUR 14:29 → 4SSUR 17:56
PROVIDERS: ADMIT Internal Medicine; ATTEND Internal Medicine
PROC: 5A1D70Z Performance of Urinary Filtration, Intermittent, Less than 6 Hours Per Day (ICD-10-PCS; principal; 2020-02-23)
PROC: 5A09457 Assistance with Respiratory Ventilation, 24-96 Consecutive Hours, Continuous Positive Airway Pressure (ICD-10-PCS; 2020-02-25)
DX: K52.1 Toxic gastroenteritis and colitis (principal); N18.6 End stage renal disease; N17.9 Acute kidney failure, unspecified; I48.20 Chronic atrial fibrillation, unspecified; E87.2 Acidosis; I13.2 Hypertensive heart and chronic kidney disease with heart failure and with stage 5 chronic kidney disease, or end stage renal disease; B37.0 Candidal stomatitis; I50.32 Chronic diastolic (congestive) heart failure; N39.0 Urinary tract infection, site not specified; E83.9 Disorder of mineral metabolism, unspecified; E86.0 Dehydration; I49.5 Sick sinus syndrome; E11.40 Type 2 diabetes mellitus with diabetic neuropathy, unspecified; E11.22 Type 2 diabetes mellitus with diabetic chronic kidney disease; Z79.4 Long term (current) use of insulin; M06.9 Rheumatoid arthritis, unspecified; Z99.2 Dependence on renal dialysis; E03.9 Hypothyroidism, unspecified; R19.7 Diarrhea, unspecified; E87.6 Hypokalemia; T36.1X5A Adverse effect of cephalosporins and other beta-lactam antibiotics, initial encounter; R11.0 Nausea; T46.6X5A Adverse effect of antihyperlipidemic and antiarteriosclerotic drugs, initial encounter; G47.33 Obstructive sleep apnea (adult) (pediatric); G89.29 Other chronic pain; M54.9 Dorsalgia, unspecified; M25.561 Pain in right knee; M25.562 Pain in left knee; E78.5 Hyperlipidemia, unspecified; N28.1 Cyst of kidney, acquired; I83.90 Asymptomatic varicose veins of unspecified lower extremity; K21.9 Gastro-esophageal reflux disease without esophagitis; I25.2 Old myocardial infarction; M19.90 Unspecified osteoarthritis, unspecified site; Z79.01 Long term (current) use of anticoagulants; Z79.890 Hormone replacement therapy; Z79.899 Other long term (current) drug therapy; Z86.19 Personal history of other infectious and parasitic diseases; Z90.710 Acquired absence of both cervix and uterus; Z95.0 Presence of cardiac pacemaker; Z86.79 Personal history of other diseases of the circulatory system; Z87.42 Personal history of other diseases of the female genital tract; Z87.19 Personal history of other diseases of the digestive system; Z86.718 Personal history of other venous thrombosis and embolism; Z86.711 Personal history of pulmonary embolism; Z87.448 Personal history of other diseases of urinary system; Z87.440 Personal history of urinary (tract) infections; Z98.42 Cataract extraction status, left eye; Z98.41 Cataract extraction status, right eye; Z88.5 Allergy status to narcotic agent; Z88.0 Allergy status to penicillin; Z88.2 Allergy status to sulfonamides; Z82.49 Family history of ischemic heart disease and other diseases of the circulatory system; Z83.49 Family history of other endocrine, nutritional and metabolic diseases; Z80.9 Family history of malignant neoplasm, unspecified
CPT/HCPCS: 36415; 71046; 80048; 80053; 81001; 83605; 83630; 83735; 83880; 84100; 84484; 85025; 85610; 85730; 86706; 87045; 87046; 87086; 87324; 87340; 90935; 93005; 96365; 99285

== ENCOUNTER 2020-04-05 09:32 | Observation (INO) | payer MEDICARE ==
--- NOTE | 2020-04-05 10:21 | ED ---
General Adult HPI - General Chief complaint: Extremity Problem,Nontraumatic Stated complaint: fistula problem Time Seen by Provider: 04/05/20 09:35 Source: patient, family, RN notes reviewed, old records reviewed Mode of arrival: wheelchair Limitations: physical limitation - History of Present Illness Initial comments: This is an 84-year-old female who presents emergency department because she has a fistula in her right arm and she went to get dialysis in the people at dialysis noted her arm distally and hand were swollen and so they wanted her to be evaluated emergency department before she got dialyzed. They were concerned that she might have an infection. Patient states that she has a temporary catheter in place for the dialysis but they did not want to use that either. Patient states aside from that she has no symptoms currently she has no fever chills she denies any redness or upper arm pain she states below the physician there is a little bit of discomfort with swelling. Patient denies any shortness of breath difficulty breathing or chest pain. - Related Data Home Medications Medication Instructions Recorded Confirmed Levothyroxine Sodium [Synthroid] 100 mcg PO HS@209901/31/14 02/22/20 Flecainide [Tambocor] 50 mg PO BID@0700,2100 10/12/16 02/22/20 allopurinoL [Zyloprim] 100 mg PO DAILY@0700 01/18/17 02/22/20 atenoloL [Tenormin] 50 mg PO DAILY@1200 10/10/17 02/22/20 Acetaminophen [Tylenol] 1,000 mg PO Q8H PRN MDD 3000 MG 05/22/18 02/22/20 Cholecalciferol (Vitamin D3) 4,000 unit PO DAILY@1200 05/26/19 02/22/20 [Vitamin D3] Pantoprazole [Protonix] 40 mg PO HS@2100 08/16/19 02/22/20 Folic Acid-Vit B Complex-Vit C 1 cap PO DAILY@1700 02/04/20 02/22/20 [Nephrocaps] Insulin Lispro [humaLOG Kwikpen] See Protocol SQ AC-TID 02/04/20 02/22/20 Ondansetron [Zofran] 4 mg PO Q8HR PRN 02/04/20 02/22/20 Simvastatin [Zocor] 20 mg PO HS@2100 02/04/20 02/22/20 Torsemide [Demadex] 40 mg PO SUTUTHSA@0700 02/04/20 02/22/20 atenoloL [Tenormin] 25 mg PO HS@2100 02/04/20 02/22/20 Apixaban [Eliquis] 2.5 mg PO BID@0700,1700 02/22/20 02/22/20 Banatrol Plus Packet 1 packet PO TID@0700,1200,1700 02/22/20 02/22/20 Kaopectate Susp 262 mg PO BID@0700,1900 02/22/20 02/22/20 Kaopectate Susp 262 mg PO DAILY PRN 02/22/20 02/22/20 Torsemide [Demadex] 40 mg PO MOWEFR@1300 02/22/20 02/22/20 Allergies Allergy/AdvReac Type Severity Reaction Status Date / Time Penicillins Allergy Rash/Hives Verified 04/05/20 09:40 Sulfa (Sulfonamide Allergy Rash/Hives Verified 04/05/20 09:40 Antibiotics) meperidine HCl [From Demerol] AdvReac Nausea & Verified 04/05/20 09:40 Vomiting Review of Systems ROS Statement: Those systems with pertinent positive or pertinent negative responses have been documented in the HPI. ROS Other: All systems not noted in ROS Statement are negative. Past Medical History Past Medical History: Atrial Fibrillation, Heart Failure, Diabetes Mellitus, Deep Vein Thrombosis (DVT), GERD/Reflux, Hyperlipidemia, Hypertension, Myocardial Infarction (DE), Osteoarthritis (OA), Pulmonary Embolus (PE), Renal Disease, Rheumatoid Arthritis (RA), Sleep Apnea/CPAP/BIPAP, Thyroid Disorder Additional Past Medical History / Comment(s): Pt recently admitted to [facility] on 02/06/20 with UTI/ESBL/bacteremia. Other hx: IDDM type II, diabetic neuropathy bilateral hands/feet, ESRD with hemodialysis M/W/F, has temporary boone cath for dialysis d/t R upper arm recent fistula surgery 02/01/20 in which fistula was repositioned, R arm/shoulder limited ROM since fistula surgery, current UTI, recurrent UTIs, pt was told she had a past DE d/t EKG, palpitations, SSS with pacer, HARRIS with Cpap, chronic back and bilateral knee pain, hypothyroid. Last Myocardial Infarction Date:: unknown History of Any Multi-Drug Resistant Organisms: ESBL Date of last positivie culture/infection: 02/04/20 MDRO Source:: ESBL URINE Past Surgical History: Bladder Surgery, Hysterectomy, Pacemaker Additional Past Surgical History / Comment(s): 02/01/20 R upper arm fistula repositioned, R chest boone cath, rectocele, cystocele, hemorrhoidectomy, bilateral leg vein strippings, bilateral cataract removal, Picc lines Past Anesthesia/Blood Transfusion Reactions: No Reported Reaction Type of Cardiac Device: Permanent Pacemaker Device Placement Date:: 01/2017 Past Psychological History: No Psychological Hx Reported Smoking Status: Never smoker Past Alcohol Use History: None Reported Past Drug Use History: None Reported - Past Family History Father Family Medical History: Coronary Artery Disease (CAD), Hyperlipidemia, Hypertension, Myocardial Infarction (DE) Mother Family Medical History: Unable to Obtain Sister(s) Family Medical History: Cancer General Exam - General Exam Comments Initial Comments: GENERAL: Patient is well-developed and well-nourished. Patient is nontoxic and well- hydrated and is in no acute distress. ENT: Neck is soft and supple. No significant lymphadenopathy is noted. Oropharynx is clear. Moist mucous membranes. Neck has full range of motion without shawn citing any pain. EYES: The sclera were anicteric and conjunctiva were pink and moist. Extraocular movements were intact and pupils were equal round and reactive to light. Eyelids were unremarkable. PULMONARY: Unlabored respirations. Good breath sounds bilaterally. No audible rales rhonchi or wheezing was noted. CARDIOVASCULAR: There is a regular rate and rhythm without any murmurs gallops or rubs ABDOMEN: Soft and nontender with normal bowel sounds. SKIN: Skin is clear with no lesions or rashes and otherwise unremarkable. NEUROLOGIC: Patient is alert and oriented x3. Cranial nerves II through XII are grossly intact. Motor and sensory are also intact. Normal speech, volume and content. Symmetrical smile. MUSCULOSKELETAL: Patient has some swelling to the right forearm and hand. There is no redness or erythema the fistula does not appear to be infected. LYMPHATICS: No significant lymphadenopathy is noted PSYCHIATRIC: Normal psychiatric evaluation. Limitations: physical limitation Course Vital Signs 04/05/20 04/05/20 04/05/20 09:35 10:59 11:15 Temperature 98.0 F Pulse Rate 65 66 103 H Respiratory 18 21 20 Rate Blood Pressure 175/63 134/79 124/42 O2 Sat by Pulse 98 100 96 Oximetry Medical Decision Making - Medical Decision Making Ultrasound showed no DVT. Dr. Child wanted the patient to be admitted so the patient was admitted for dialysis. - Lab Data Result diagrams: 04/05/20 10:11 04/05/20 10:11 Lab Results 04/05/20 04/05/20 04/05/20 Range/Units 10:11 10:11 10:11 WBC 6.7 (3.8-10.6) k/uL RBC 3.22 L (3.80-5.40) m/uL Hgb 10.7 L (11.4-16.0) gm/dL Hct 33.8 L (34.0-46.0) % MCV 105.0 H (80.0-100.0) fL MCH 33.4 (25.0-35.0) pg MCHC 31.8 (31.0-37.0) g/dL RDW 14.4 (11.5-15.5) % Plt Count 237 (150-450) k/uL Neutrophils % 67 % Lymphocytes % 23 % Monocytes % 5 % Eosinophils % 2 % Basophils % 1 % Neutrophils # 4.5 (1.3-7.7) k/uL Lymphocytes # 1.6 (1.0-4.8) k/uL Monocytes # 0.3 (0-1.0) k/uL Eosinophils # 0.1 (0-0.7) k/uL Basophils # 0.0 (0-0.2) k/uL Macrocytosis Moderate Sodium 131 L (137-145) mmol/L Potassium 5.0 (3.5-5.1) mmol/L Chloride 97 L (98-107) mmol/L Carbon Dioxide 27 (22-30) mmol/L Anion Gap 7 mmol/L BUN 34 H (7-17) mg/dL Creatinine 2.44 H (0.52-1.04) mg/dL Est GFR (CKD-EPI)AfAm 20 (>60 ml/min/1.73 sqM) Est GFR (CKD-EPI)NonAf 17 (>60 ml/min/1.73 sqM) Glucose 139 H (74-99) mg/dL Plasma Lactic Acid Gilberto 1.9 (0.7-2.0) mmol/L Calcium 8.8 (8.4-10.2) mg/dL Total Bilirubin 0.4 (0.2-1.3) mg/dL AST 26 (14-36) U/L ALT 15 (4-34) U/L Alkaline Phosphatase 152 H (38-126) U/L NT-Pro-B Natriuret Pep pg/mL Total Protein 6.0 L (6.3-8.2) g/dL Albumin 3.4 L (3.5-5.0) g/dL 04/05/20 Range/Units 10:11 WBC (3.8-10.6) k/uL RBC (3.80-5.40) m/uL Hgb (11.4-16.0) gm/dL Hct (34.0-46.0) % MCV (80.0-100.0) fL MCH (25.0-35.0) pg MCHC (31.0-37.0) g/dL RDW (11.5-15.5) % Plt Count (150-450) k/uL Neutrophils % % Lymphocytes % % Monocytes % % Eosinophils % % Basophils % % Neutrophils # (1.3-7.7) k/uL Lymphocytes # (1.0-4.8) k/uL Monocytes # (0-1.0) k/uL Eosinophils # (0-0.7) k/uL Basophils # (0-0.2) k/uL Macrocytosis Sodium (137-145) mmol/L Potassium (3.5-5.1) mmol/L Chloride (98-107) mmol/L Carbon Dioxide (22-30) mmol/L Anion Gap mmol/L BUN (7-17) mg/dL Creatinine (0.52-1.04) mg/dL Est GFR (CKD-EPI)AfAm (>60 ml/min/1.73 sqM) Est GFR (CKD-EPI)NonAf (>60 ml/min/1.73 sqM) Glucose (74-99) mg/dL Plasma Lactic Acid Gilberto (0.7-2.0) mmol/L Calcium (8.4-10.2) mg/dL Total Bilirubin (0.2-1.3) mg/dL AST (14-36) U/L ALT (4-34) U/L Alkaline Phosphatase (38-126) U/L NT-Pro-B Natriuret Pep 5070 pg/mL Total Protein (6.3-8.2) g/dL Albumin (3.5-5.0) g/dL Disposition Clinical Impression: Missed dialysis, Fluid retention Disposition: ADMITTED IP TO THIS HOSP Referrals: Phil Blood MD [Primary Care Provider] - 1-2 days Time of Disposition: 11:59
[2020-04-05 10:34] LABS: Albumin 3.4 g/dL (3.5-5.0); Calcium 8.8 mg/dL (8.4-10.2); Total Bilirubin 0.4 mg/dL (0.2-1.3)
--- NOTE | 2020-04-05 10:46 | XR ---
EXAMINATION TYPE: XR chest 2V DATE OF EXAM: 04/05/2020 COMPARISON: 02/22/2020 INDICATION: Difficulty breathing TECHNIQUE: Frontal and lateral views of the chest are obtained. FINDINGS: The heart size is normal. The pulmonary vasculature is normal. Mild left lower lobe infiltrate is silhouetting the left diaphragm. Pacemaker overlies left chest. Do uble-lumen catheter is present on right with the tips in the distal superior vena cava region.. IMPRESSION: 1. Mild left lower lobe infiltrate. Correlate for subsegmental atelectasis and pneumonia
[2020-04-05 10:54] LABS: Basophils % (A) 1 %; Eosinophils # (A) 0.1 k/uL (0-0.7); Eosinophils % (A) 2 %; HCT 33.8 % (34.0-46.0); HGB 10.7 gm/dL (11.4-16.0); Lymphocytes # (A) 1.6 k/uL (1.0-4.8); Lymphocytes % (A) 23 %; MCH 33.4 pg (25.0-35.0); MCHC 31.8 g/dL (31.0-37.0); Macrocytosis Moderate; Mean Platelet Volume 8.1; Monocytes # (A) 0.3 k/uL (0-1.0); Monocytes % (A) 5 %; Neutrophils # (A) 4.5 k/uL (1.3-7.7); Neutrophils % (A) 67 %; Platelet Count 237 k/uL (150-450); RBC 3.22 m/uL (3.80-5.40); RDW 14.4 % (11.5-15.5); WBC 6.7 k/uL (3.8-10.6)
--- NOTE | 2020-04-05 11:54 | US ---
EXAMINATION TYPE: US venous doppler duplex UE RT DATE OF EXAM: 04/05/2020 COMPARISON: NONE CLINICAL HISTORY: Swollen and painful arm . Right hand pain and swelling, patient on blood thinners SIDE PERFORMED: Right Subclavian vein not seen due to bandage covering between neck and shoulder Right Arm: Visualized portions appear negative for DVT, fistula seen and appears patent IMPRESSION: 1. Right upper extremity ultrasound negative for deep venous thrombosis. 2. 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
[2020-04-05] MEDS ORDERED: ACETAMINOPHEN TAB 325 MG TAB PO PRN (12:43)
[2020-04-05] MEDS ORDERED: NALOXONE 0.4 MG/ML 1 ML VIAL IV PRN (12:43)
[2020-04-05] MEDS ORDERED: ONDANSETRON 4 MG/2 ML VIAL IVP PRN (12:43)
[2020-04-05] MEDS ORDERED: BISMUTH SUBSALICYLATE 4,192 MG/240 ML BOTTLE PO PRN (13:18)
[2020-04-05] MEDS ORDERED: LOPERAMIDE 2 MG CAP PO PRN (13:18)
[2020-04-05] MEDS ORDERED: DICYCLOMINE 10 MG CAP PO PRN (13:18)
[2020-04-05 13:26] LABS: Glucose,Whole Blood 104 mg/dL (75-99)
--- NOTE | 2020-04-05 13:54 | P.HPIM ---
History of Present Illness H&P Date: 04/05/20 Chief Complaint: missed dialysis, swollen hand 84-year-old woman with past medical history of end-stage renal disease, chronic atrial fibrillation, heart failure with reduced ejection fraction, DM/HTN/HLD/CAD, hypothyroidism presented after missed dialysis session with concern over swollen hand on the side of her fistula. Patient tells me that she had her fistula placed in October of this year, and it was revised in early January. Since January, she is noticed that there is still a little bit of drainage coming from a small area which did not appear to heal. Today, she was scheduled for dialysis to access her fistula for the first time, who called the Center had a time with concern over the drainage, and she is recommended to go to the emergency room to rule out infection of the fistula prior to access. As a consequence, she missed her dialysis session today. On review of systems she denies fevers, chills, nausea, vomiting, abdominal pain, chest pain, palpitati ons, orthopnea, syncope, dysuria, dyschezia, numbness/weakness. She denies foul-smelling drainage. On arrival patient was afebrile, 124/42, heart rate 103, 96% on room air. CBC was unremarkable. Chemistries were unremarkable. LFTs were unremarkable. BNP shows elevation to 5070, it was as high as 10,400 which is symptomatically from volume overload last month. Doppler of the right upper extremity was negative for DVT and showed a patent arteriovenous fistula. Chest x-ray shows a biventricular pacemaker, increased vascular congestion and fluid in the minor fissure. Review of Systems All Systems reviewed and pertinent positives and negatives noted in HPI, all other symptoms are negative Past Medical History Past Medical History: Atrial Fibrillation, Heart Failure, Diabetes Mellitus, Deep Vein Thrombosis (DVT), GERD/Reflux, Hyperlipidemia, Hypertension, Myocardial Infarction (UT), Osteoarthritis (OA), Pulmonary Embolus (PE), Renal Disease, Rheumatoid Arthritis (RA), Sleep Apnea/CPAP/BIPAP, Thyroid Disorder Additional Past Medical History / Comment(s): Pt recently admitted to [facility] on 02/06/20 with UTI/ESBL/bacteremia. Other hx: IDDM type II, diabetic neuropathy bilateral hands/feet, ESRD with hemodialysis M/W/F, has temporary boone cath for dialysis d/t R upper arm recent fistula surgery 02/01/20 in which fistula was repositioned, R arm/shoulder limited ROM since fistula surgery, current UTI, recurrent UTIs, pt was told she had a past UT d/t EKG, palpitations, SSS with pacer, HARRIS with Cpap, chronic back and bilateral knee pain, hypothyroid. Last Myocardial Infarction Date:: unknown History of Any Multi-Drug Resistant Organisms: ESBL Date of last positivie culture/infection: 02/04/20 MDRO Source:: ESBL URINE Past Surgical History: Bladder Surgery, Hysterectomy, Pacemaker Additional Past Surgical History / Comment(s): 02/01/20 R upper arm fistula repositioned, R chest boone cath, rectocele, cystocele, hemorrhoidectomy, daniel ateral leg vein strippings, bilateral cataract removal, Picc lines Past Anesthesia/Blood Transfusion Reactions: No Reported Reaction Type of Cardiac Device: Permanent Pacemaker Device Placement Date:: 01/2017 Past Psychological History: No Psychological Hx Reported Smoking Status: Never smoker Past Alcohol Use History: None Reported Past Drug Use History: None Reported - Past Family History Father Family Medical History: AFIB, AICD/Pacemaker, Congestive Heart Failure (CHF), Coronary Artery Disease (CAD), Diabetes Mellitus, Dialysis, Deep Vein Thrombosis (DVT), Hyperlipidemia, Hypertension, Myocardial Infarction (UT), Rheumatoid Arthritis (RA) Mother Family Medical History: Unable to Obtain Sister(s) Family Medical History: Cancer Medications and Allergies Home Medications Medication Instructions Recorded Confirmed Type Levothyroxine Sodium [Synthroid] 100 mcg PO HS 01/31/14 04/05/20 History Flecainide [Tambocor] 50 mg PO BID 10/12/16 04/05/20 History allopurinoL [Zyloprim] 100 mg PO DAILY 01/18/17 04/05/20 History atenoloL [Tenormin] 50 mg PO DAILY@1200 10/10/17 04/05/20 History Acetaminophen [Tylenol] 1,000 mg PO Q8H PRN MDD 3000 MG 05/22/18 04/05/20 History Cholecalciferol (Vitamin D3) 4,000 unit PO DAILY@1200 05/26/19 04/05/20 History [Vitamin D3] Pantoprazole [Protonix] 40 mg PO HS 08/16/19 04/05/20 History Folic Acid-Vit B Complex-Vit C 1 cap PO DAILY@1700 02/04/20 04/05/20 History [Nephrocaps] Insulin Lispro [humaLOG Kwikpen] See Protocol SQ AC-TID 02/04/20 04/05/20 History Ondansetron [Zofran] 4 mg PO Q8HR PRN 02/04/20 04/05/20 History Torsemide [Demadex] 40 mg PO SUTUTHSA@0600 02/04/20 04/05/20 History Apixaban [Eliquis] 2.5 mg PO BID 02/22/20 04/05/20 History Kaopectate Susp 262 mg PO BID@0900,1700 02/22/20 04/05/20 History Kaopectate Susp 262 mg PO DAILY PRN 02/22/20 04/05/20 History Torsemide [Demadex] 40 mg PO MOWEFR@1300 02/22/20 04/05/20 History Atorvastatin [Lipitor] 10 mg PO DAILY 04/05/20 04/05/20 History Dicyclomine [Bentyl] 10 mg PO TID PRN 04/05/20 04/05/20 History Loperamide HCl [Loperamide] 2 mg PO QID PRN 04/05/20 04/05/20 History Allergies Allergy/AdvReac Type Severity Reaction Status Date / Time Penicillins Allergy Rash/Hives Verified 04/05/20 12:33 Sulfa (Sulfonamide Allergy Rash/Hives Verified 04/05/20 12:33 Antibiotics) meperidine HCl [From Demerol] AdvReac Nausea & Verified 04/05/20 12:33 Vomiting Physical Exam Osteopathic Statement: *. No significant issues noted on an osteopathic structural exam other than those noted in the History and Physical/Consult. Vitals: Vital Signs Temp Pulse Resp BP Pulse Ox 04/05/20 12:38 81 20 132/65 98 04/05/20 11:15 103 H 20 124/42 96 04/05/20 10:59 66 21 134/79 100 04/05/20 09:35 98.0 F 65 18 175/63 98 Intake and Output 04/04/20 04/05/20 04/05/20 22:59 06:59 14:59 Other: Weight 90.718 kg Gen: awake, alert HEENT: normocephalic, atraumatic, good hearing acuity, moist mucous membranes Resp: mild fine crackles in the bases of the posterior lung matthews, good air exchange without accessory muscle use CVS: good distal perfusion x 4, RRR, no murmurs, clicks, gallops GI: soft, NTTP, ND : no SPT, no CVAT, tabor catheter not present MSK: no pitting edema, no clubbing Neuro: non-focal, no sensory deficits, appropriate tone Psych: cooperative, euthymic mood Results CBC & Chem 7: 04/05/20 10:11 04/05/20 10:11 Labs: Abnormal Lab Results - Last 24 Hours (Table) 04/05/20 04/05/20 04/05/20 Range/Units 10:11 10:11 13:22 RBC 3.22 L (3.80-5.40) m/uL Hgb 10.7 L (11.4-16.0) gm/dL Hct 33.8 L (34.0-46.0) % MCV 105.0 H (80.0-100.0) fL Sodium 131 L (137-145) mmol/L Chloride 97 L (98-107) mmol/L BUN 34 H (7-17) mg/dL Creatinine 2.44 H (0.52-1.04) mg/dL Glucose 139 H (74-99) mg/dL POC Glucose (mg/dL) 104 H (75-99) mg/dL Alkaline Phosphatase 152 H (38-126) U/L Total Protein 6.0 L (6.3-8.2) g/dL Albumin 3.4 L (3.5-5.0) g/dL BNP 5070 Chest x-ray: report reviewed, image reviewed (See HPI) Venous US: report reviewed (See HPI) Assessment and Plan Assessment: 1. Volume overload 2. Right upper extremity edema 3. End-stage renal disease 4. Chronic combined systolic and diastolic heart failure 5. Permanent atrial fibrillation, rate controlled 6. Coronary artery disease 7. Hypertension 8. Hyperlipidemia 9. Hypothyroidism 10. HARRIS 11. RA 12. History of DVT/PE 13. GERD without esophagitis 84-year-old woman with past medical history of ESRD, heart failure with reduced ejection fraction, CAD/HTN/HLD/DM type II present after missing a dialysis session due to concern over right upper extremity swelling and drainage from the area of the fistula revision done in early January. Plan: #VO/RUE Edema/ESRD/HFrEF - I/Os, daily weights - continue home torsemide - nephrology consult for iHD - BCx pending to r/o bacteremia - will not start abx at this time as patient does not appear septic on exam, and no s/s of infx - continue D3, Nephrocap, Dandy #Permanent AFib - continue flecainide - continue atenolol - continue eliquis - rate controlled with BiV pacemaker Chronic Medical Conditions: #CAD #HTN #HLD #Hypothyroidism #HARRIS #RA #Hx of DVT/PE #GERD #Diabetes Type II - continue medications from home - renal friendly diet DVT PPx: eliquis Code Status: DNAR DPOA: Son Dispo: likely home tomorrow following dialysis today and overnight observation
[2020-04-05 16:50] LABS: Glucose,Whole Blood 94 mg/dL (75-99)
[2020-04-05] MEDS ORDERED: FOLIC ACID-VIT B COMPLEX-VIT C 1 CAP PO SCH (17:00)
[2020-04-05] MEDS: INSULIN ASPART (NovoLOG) 100 UNIT/ML VIAL SQ SCH (17:03)
[2020-04-05] MEDS: BISMUTH SUBSALICYLATE 4,192 MG/240 ML BOTTLE PO SCH (17:14)
[2020-04-05 20:11] LABS: Glucose,Whole Blood 177 mg/dL (75-99)
--- NOTE | 2020-04-05 20:36 | CONS ---
CONSULTATION REASON FOR CONSULT: End-stage renal disease. HISTORY OF PRESENT ILLNESS: The patient is an 84-year-old female with end-stage renal disease, on hemodialysis at [facility] on a Friday, Friday, Friday schedule. Patient was brought into the emergency room and she had drainage from her right arm at the site of the AV graft. She recently had intervention on her right arm AV graft and the family had noticed drainage from the site. There is no fever or chest pains. Patient has some shortness of breath. She was scheduled for hemodialysis today as outpatient, but she has missed her treatment. The patient has had volume overload with significant lower extremity edema. She denies any chest pains. The Dopplers of the right arm did not show any DVT. PAST MEDICAL HISTORY: End-stage renal disease, CHF, diastolic dysfunction, history of repeated urinary tract infections, atrial fibrillation, previous history of DVT, gastroesophageal reflux disease, osteoarthritis, rheumatoid arthritis, obstructive sleep apnea and hypothyroidism. PAST SURGICAL HISTORY: Hysterectomy, pacemaker placement, PermCath insertion, AV graft, cataract surgery, surgery for rectocele, cystocele, hemorrhoidectomy, transposition of the AV fistula. SOCIAL HISTORY: Negative for smoking, drug abuse or alcohol abuse. MEDICATIONS: Medications prior to admission included: Synthroid, Zyloprim, Tenormin, Tylenol, vitamin D, Protonix, insulin, Nephrocaps, Zocor, Eliquis, Demadex. ALLERGIES: INCLUDE SULFA, PENICILLIN, DEMEROL. REVIEW OF SYSTEMS: As per HPI. Other systems negative. PHYSICAL EXAMINATION: Patient is comfortable, mildly short of breath, not in any acute distress. Blood pressure is 124/42, heart rate 103 per minute. She is afebrile. Examination of the heart S1, S2. Examination: Decreased breath sounds at bases. Abdomen is soft, nontender. Examination of lower extremities shows edema 3 to 4+ bilaterally. There is edema noted in her right arm as well. No significant redness or tenderness is noted. AV fistula is functioning well. LAB: Show sodium 131, potassium 5.0, chloride 97, BUN 34, creatinine 2.4, hemoglobin 10.7 g/dL. IMPRESSION: 1. Hyponatremia, mostly associated with hypo hypervolemia and renal failure. Expect improvement post dialysis. 2. Anemia of chronic disease. 3. CKD mineral bone disorder. PLAN: Hemodialysis today mostly for ultrafiltration and volume overload and we will repeat hemodialysis again tomorrow. There does not appear to be any significant infection. Patient needs to follow up as outpatient with her vascular surgeon from [facility]. Hopefully, as we improve her volume status, the swelling in the right arm improved to some degree as well. MMNIRMALAL / STEPHENN: [id number] /
[2020-04-05] MEDS ORDERED: LEVOTHYROXINE 100 MCG TAB PO SCH (21:00)
[2020-04-05] MEDS ORDERED: PANTOPRAZOLE 40 MG TABLET PO SCH (21:00)
[2020-04-05] MEDS: FLECAINIDE 50 MG TAB PO SCH (21:21)
[2020-04-05] MEDS: APIXABAN 2.5 MG TABLET PO SCH (21:21)
[2020-04-06 05:58] LABS: Glucose,Whole Blood 105 mg/dL (75-99)
[2020-04-06] MEDS ORDERED: TORSEMIDE 20 MG TAB PO SCH (06:00)
[2020-04-06] MEDS: INSULIN ASPART (NovoLOG) 100 UNIT/ML VIAL SQ SCH ×2 (07:12→11:35)
[2020-04-06 07:17] LABS: Basophils % (A) 1 %; Eosinophils # (A) 0.1 k/uL (0-0.7); Eosinophils % (A) 2 %; HGB 10.2 gm/dL (11.4-16.0); Hypochromasia Slight; Lymphocytes # (A) 1.7 k/uL (1.0-4.8); Lymphocytes % (A) 25 %; MCH 33.9 pg (25.0-35.0); MCHC 31.8 g/dL (31.0-37.0); MCV 106.8 fL (80.0-100.0); Macrocytosis Moderate; Mean Platelet Volume 7.8; Monocytes # (A) 0.4 k/uL (0-1.0); Monocytes % (A) 5 %; Neutrophils # (A) 4.5 k/uL (1.3-7.7); Neutrophils % (A) 66 %; Platelet Count 237 k/uL (150-450); RDW 14.4 % (11.5-15.5); WBC 6.8 k/uL (3.8-10.6)
[2020-04-06] MEDS: FLECAINIDE 50 MG TAB PO SCH (07:30)
[2020-04-06] MEDS: APIXABAN 2.5 MG TABLET PO SCH (07:30)
[2020-04-06 07:31] LABS: Calcium 8.5 mg/dL (8.4-10.2); Magnesium 1.7 mg/dL (1.6-2.3); Phosphorus 3.4 mg/dL (2.5-4.5); Potassium 4.3 mmol/L (3.5-5.1)
[2020-04-06] MEDS: BISMUTH SUBSALICYLATE 4,192 MG/240 ML BOTTLE PO SCH (07:31)
[2020-04-06] MEDS ORDERED: allopurinoL 100 MG TAB PO SCH (09:00)
[2020-04-06] MEDS ORDERED: MIDODRINE 5 MG TAB PO PRN (09:20)
[2020-04-06 11:34] LABS: Glucose,Whole Blood 99 mg/dL (75-99)
[2020-04-06 11:54] VITALS: BP 153/53; PULSE 64; RESP 18; TEMP 98.5
[2020-04-06] MEDS ORDERED: atenoloL 50 MG TAB PO SCH (12:00)
[2020-04-06] MEDS ORDERED: CHOLECALCIFEROL 1,000 UNIT TAB PO SCH (12:00)
--- NOTE | 2020-04-06 12:17 | PN ---
PROGRESS NOTE Patient is seen for followup for end-stage renal disease. She is currently seen on dialysis, tolerating her treatment well. Patient was admitted mainly for fluid overload. She presented to the hospital with drainage from her access arm after recent intervention. There was no major signs of infection. However, patient has been volume overloaded. She was dialyzed yesterday we removed about 2 L. She is being dialyzed again. We will remove about 3 L of fluid today. Overall, she states she feels better. PHYSICAL EXAMINATION: Blood pressure was 141/51, heart rate 67 per minute, she is afebrile. Examination of the heart S1, S2. Examination of the lungs, bilateral breath sounds are heard. Abdomen is soft, nontender. Examination of lower extremities shows edema 1+ bilaterally. [facility] exam grossly intact. Edema noted in the right arm, minimal drainage noted at the site of the graft. LABS: Show sodium 138, potassium 4.3, chloride 105, BUN 23, creatinine 2.05 hemoglobin 10.2 g/dL. ASSESSMENT: 1. End-stage renal disease, on hemodialysis on a Friday, Friday, Friday schedule. Patient is receiving an extra treatment today. 2. Volume overload, slowly improving. We have removed about 5 L of fluid between yesterday and today. 3. Right arm swelling, status post recent intervention on the right arm AV graft. 4. CKD mineral bone disorder. 5. History of repeated urinary tract infections. PLAN: Patient can be discharged. Follow up as outpatient for hemodialysis tomorrow. We will again remove about 3 L as tolerated. MMODL / IJN: [id number] /
--- NOTE | 2020-04-06 17:01 | P.DS ---
Providers Date of admission: 04/05/20 12:28 Expected date of discharge: 04/06/20 Attending physician: Meghann Bazan DO Consults: 04/05/20 12:18 Consult Physician Urgent Consulting Provider: Sofia Child Consult Reason/Comments: Missed dialysis, fluid overload Do you want consulting provider notified?: Already Contacted Primary care physician: [facility] Course: 84-year-old woman with past medical history of end-stage renal disease, chronic atrial fibrillation, heart failure with reduced ejection fraction, DM/HTN/HLD/CAD, hypothyroidism presented after missed dialysis session with concern over swollen hand on the side of her fistula. Patient tells me that she had her fistula placed in October of this year, and it was revised in early January. Since January, she is noticed that there is still a little bit of drainage coming from a small area which did not appear to heal. Today, she was scheduled for dialysis to access her fistula for the first time, who called the Center had a time with concern over the drainage, and she is recommended to go to the emergency room to rule out infection of the fistula prior to access. As a consequence, she missed her dialysis session today. On review of systems she denies fevers, chills, nausea, vomiting, abdominal pain, chest pain, palpitations, orthopnea, syncope, dysuria, dyschezia, numbness/weakness. She denies foul-smelling drainage. On arrival patient was afebrile, 124/42, heart rate 103, 96% on room air. CBC was unremarkable. Chemistries were unremarkable. LFTs were unremarkable. BNP shows elevation to 5070, it was as high as 10,400 which is symptomatically from volume overload last month. Doppler of the right upper extremity was negative for DVT and showed a patent arteriovenous fistula. Chest x-ray shows a biventricular pacemaker, increased vascular congestion and fluid in the minor fissure. Blood cultures were collected and were negative at 24 hours at the time of discharge. Nephrology was consulted and recommended resuming dialysis. Patient was seen and examined during dialysis. No acute events overnight. Patient reports some redness in her cheeks bilaterally with some swelling. Patient reports improvement in her breathing since starting dialysis. She denies any chest pain or palpitations. No nausea or vomiting. No fever or chills. General: [non toxic], [no distress], [appears at stated age] Derm: [warm], [dry] Head: [atraumatic], [normocephalic], [symmetric] Eyes: [EOMI], [no lid lag], [anicteric sclera] Mouth: [no lip lesion], [mucus membranes moist] Cardiovascular: [S1S2 reg], [no murmur], [positive DP pulse bilateral], Lungs: [Decreased breath sounds bilateral], [no rhonchi, no rales] , [no accessory muscle use] Abdominal: [soft], [ nontender to palpation], [no guarding], [no appreciable organomegaly] Ext: [no gross muscle atrophy], [no edema], [no contractures] Neuro: [no focal neuro deficits] Psych: [Alert], [oriented], [appropriate affect] 1. Volume overload 2. Facial swelling with redness 3. Right upper extremity edema 4. End-stage renal disease 5. Chronic combined systolic and diastolic heart failure 6. Permanent atrial fibrillation, rate controlled 7. Coronary artery disease 8. Hypertension 9. Hyperlipidemia 10. Hypothyroidism 11. HARRIS 12. RA 13. History of DVT/PE 14. GERD without esophagitis 84-year-old woman with past medical history of ESRD, heart failure with reduced ejection fraction, CAD/HTN/HLD/DM type II present after missing a dialysis session due to concern over right upper extremity swelling and drainage from the area of the fistula revision done in early January. Plan: #VO/RUE Edema/ESRD/HFrEF - I/Os, daily weights - continue home torsemide - nephrology consult for iHD - BCx pending to r/o bacteremia - will not start abx at this time as patient does not appear septic on exam, and no s/s of infx - continue D3, Nephrocap, Dandy #Facial swelling with redness likely flare up of rosacea -Do not recommend treatment at this time. Conservative management. Continue to monitor. Discussed with patient regarding avoidance of sunlight. #Permanent AFib - continue flecainide - continue atenolol - continue eliquis - rate controlled with BiV pacemaker Chronic Medical Conditions: #CAD #HTN #HLD #Hypothyroidism #HARRIS #RA #Hx of DVT/PE #GERD #Diabetes Type II - continue medications from home - renal friendly diet [Patient admitted for volume overload likely related to missed dialysis session. Nephrology on board. Plans on DC home after dialysis session today.] Pertinent Studies: Chest x-ray, venous Doppler Patient Condition at Discharge: Stable Plan - Discharge Summary Discharge Rx Participant: No New Discharge Prescriptions: Continue Levothyroxine Sodium [Synthroid] 100 mcg PO HS Flecainide [Tambocor] 50 mg PO BID allopurinoL [Zyloprim] 100 mg PO DAILY atenoloL [Tenormin] 50 mg PO DAILY@1200 Acetaminophen [Tylenol] 1,000 mg PO Q8H PRN MDD 3000 MG PRN Reason: Pain Or Fever > 100.5 Cholecalciferol (Vitamin D3) [Vitamin D3] 4,000 unit PO DAILY@1200 Pantoprazole [Protonix] 40 mg PO HS Ondansetron [Zofran] 4 mg PO Q8HR PRN PRN Reason: Nausea Folic Acid-Vit B Complex-Vit C [Nephrocaps] 1 cap PO DAILY@1700 Torsemide [Demadex] 40 mg PO SUTUTHSA@0600 Insulin Lispro [humaLOG Kwikpen] See Protocol SQ AC-TID Kaopectate Susp 262 mg PO DAILY PRN PRN Reason: Diarrhea Kaopectate Susp 262 mg PO BID@0900,1700 Torsemide [Demadex] 40 mg PO MOWEFR@1300 Apixaban [Eliquis] 2.5 mg PO BID Loperamide HCl [Loperamide] 2 mg PO QID PRN PRN Reason: Diarrhea Dicyclomine [Bentyl] 10 mg PO TID PRN PRN Reason: Constipation Atorvastatin [Lipitor] 10 mg PO DAILY Discharge Medication List Levothyroxine Sodium [Synthroid] 100 mcg PO HS 01/31/14 [History] Flecainide [Tambocor] 50 mg PO BID 10/12/16 [History] allopurinoL [Zyloprim] 100 mg PO DAILY 01/18/17 [History] atenoloL [Tenormin] 50 mg PO DAILY@1200 10/10/17 [History] Acetaminophen [Tylenol] 1,000 mg PO Q8H PRN MDD 3000 MG 05/22/18 [History] Cholecalciferol (Vitamin D3) [Vitamin D3] 4,000 unit PO DAILY@1200 05/26/19 [History] Pantoprazole [Protonix] 40 mg PO HS 08/16/19 [History] Folic Acid-Vit B Complex-Vit C [Nephrocaps] 1 cap PO DAILY@1700 02/04/20 [History] Insulin Lispro [humaLOG Kwikpen] See Protocol SQ AC-TID 02/04/20 [History] Ondansetron [Zofran] 4 mg PO Q8HR PRN 02/04/20 [History] Torsemide [Demadex] 40 mg PO SUTUTHSA@0600 02/04/20 [History] Apixaban [Eliquis] 2.5 mg PO BID 02/22/20 [History] Kaopectate Susp 262 mg PO BID@0900,1700 02/22/20 [History] Kaopectate Susp 262 mg PO DAILY PRN 02/22/20 [History] Torsemide [Demadex] 40 mg PO MOWEFR@1300 02/22/20 [History] Atorvastatin [Lipitor] 10 mg PO DAILY 04/05/20 [History] Dicyclomine [Bentyl] 10 mg PO TID PRN 04/05/20 [History] Loperamide HCl [Loperamide] 2 mg PO QID PRN 04/05/20 [History] Follow up Appointment(s)/Referral(s): Phil Blood MD [Primary Care Provider] - 1-2 days Sofia Child MD [STAFF PHYSICIAN] - 1 Week Patient Instructions/Handouts: Hemodialysis (DC) Activity/Diet/Wound Care/Special Instructions: Diet: Renal FU PCP within 3 days of DC. FU within Nephrology within 1 week of DC. Take all meds as advised. Resume dialysis schedule in the outpatient setting. Come back to ED or call 911 for worsening CP, SOB, palpitations or dizziness. Discharge Disposition: HOME SELF-CARE
[2020-04-07] MEDS ORDERED: TORSEMIDE 20 MG TAB PO SCH (13:00)
== END 2020-04-06 14:05 | disposition home or self-care (01) ==
LOC: EC 09:32 → 1SOBS 12:28
PROVIDERS: ADMIT Internal Medicine; ATTEND Internal Medicine
DX: E87.70 Fluid overload, unspecified (principal); R22.0 Localized swelling, mass and lump, head; R60.0 Localized edema; N18.6 End stage renal disease; I50.42 Chronic combined systolic (congestive) and diastolic (congestive) heart failure; I48.21 Permanent atrial fibrillation; I25.10 Atherosclerotic heart disease of native coronary artery without angina pectoris; I13.2 Hypertensive heart and chronic kidney disease with heart failure and with stage 5 chronic kidney disease, or end stage renal disease; E78.5 Hyperlipidemia, unspecified; E03.9 Hypothyroidism, unspecified; G47.33 Obstructive sleep apnea (adult) (pediatric); M06.9 Rheumatoid arthritis, unspecified; K21.9 Gastro-esophageal reflux disease without esophagitis; I25.2 Old myocardial infarction; M19.90 Unspecified osteoarthritis, unspecified site; E11.42 Type 2 diabetes mellitus with diabetic polyneuropathy; E11.22 Type 2 diabetes mellitus with diabetic chronic kidney disease; I49.5 Sick sinus syndrome; G89.29 Other chronic pain; M54.9 Dorsalgia, unspecified; M25.562 Pain in left knee; M25.561 Pain in right knee; L71.9 Rosacea, unspecified; E87.1 Hypo-osmolality and hyponatremia; D63.1 Anemia in chronic kidney disease; E83.9 Disorder of mineral metabolism, unspecified; M89.9 Disorder of bone, unspecified; Z91.15 Patient's noncompliance with renal dialysis; Z20.828 Contact with and (suspected) exposure to other viral communicable diseases; Z79.890 Hormone replacement therapy; Z79.899 Other long term (current) drug therapy; Z79.4 Long term (current) use of insulin; Z79.01 Long term (current) use of anticoagulants; Z88.0 Allergy status to penicillin; Z88.2 Allergy status to sulfonamides; Z88.5 Allergy status to narcotic agent; Z86.718 Personal history of other venous thrombosis and embolism; Z86.711 Personal history of pulmonary embolism; Z99.89 Dependence on other enabling machines and devices; Z87.440 Personal history of urinary (tract) infections; Z86.19 Personal history of other infectious and parasitic diseases; Z99.2 Dependence on renal dialysis; Z98.890 Other specified postprocedural states; Z95.0 Presence of cardiac pacemaker; Z90.710 Acquired absence of both cervix and uterus; Z87.19 Personal history of other diseases of the digestive system; Z86.79 Personal history of other diseases of the circulatory system; Z98.41 Cataract extraction status, right eye; Z98.42 Cataract extraction status, left eye; Z82.49 Family history of ischemic heart disease and other diseases of the circulatory system; Z83.438 Family history of other disorder of lipoprotein metabolism and other lipidemia; Z80.9 Family history of malignant neoplasm, unspecified; Z83.3 Family history of diabetes mellitus; Z82.61 Family history of arthritis
CPT/HCPCS: 99285; 36415; 83880; 80053; 80048; 83605; 83735; 84100; 85025 ×2; 87040; 71046; 93971; G0378 ×2; U0003; 90935

== ENCOUNTER 2020-05-25 11:55 | Inpatient (IN) | payer MEDICARE ==
[2020-05-25] MEDS ORDERED: MORPHINE SULFATE 2 MG/ML SYRINGE IVP STA (12:33)
[2020-05-25 12:38] LABS: Basophils % (A) 0 %; Eosinophils # (A) 0.1 k/uL (0-0.7); Eosinophils % (A) 2 %; HCT 34.7 % (34.0-46.0); HGB 11.4 gm/dL (11.4-16.0); Lymphocytes # (A) 1.2 k/uL (1.0-4.8); Lymphocytes % (A) 14 %; MCH 34.9 pg (25.0-35.0); MCHC 32.8 g/dL (31.0-37.0); MCV 106.5 fL (80.0-100.0); Macrocytosis Moderate; Mean Platelet Volume 7.8; Monocytes # (A) 0.4 k/uL (0-1.0); Monocytes % (A) 5 %; Neutrophils # (A) 6.4 k/uL (1.3-7.7); Neutrophils % (A) 78 %; Platelet Count 133 k/uL (150-450); RBC 3.26 m/uL (3.80-5.40); RDW 14.4 % (11.5-15.5); WBC 8.2 k/uL (3.8-10.6)
[2020-05-25 12:47] LABS: Albumin 4.1 g/dL (3.5-5.0); Potassium 4.8 mmol/L (3.5-5.1); Total Bilirubin 0.5 mg/dL (0.2-1.3); Total Protein 6.9 g/dL (6.3-8.2)
--- NOTE | 2020-05-25 13:04 | XR ---
EXAMINATION TYPE: XR forearm LT, XR humerus LT DATE OF EXAM: 05/25/2020 CLINICAL HISTORY: Pain after fall injury. TECHNIQUE: Two views of the left forearm and humerus are obtained. COMPARISON: None. FINDINGS: Osseous structures are demineralized. There is no acute fracture or dislocation seen in th e left humerus. Mild to moderate narrowing and spurring glenohumeral and acromioclavicular joints. So me spurring from the medial epicondyles distal humerus. The overlying soft tissue appears within norm al limits. Images of left forearm show no acute fracture or dislocation the radius or ulna. Radiocarpal joint sp richard loss. Moderate to severe triscaphe joint space narrowing. Peripheral IV in the dorsum of the prox imal hand. IMPRESSION: No acute fracture or dislocation is evident in the left forearm or humerus.
--- NOTE | 2020-05-25 13:06 | XR ---
EXAMINATION TYPE: XR chest 2V DATE OF EXAM: 05/25/2020 COMPARISON: Chest x-ray April 05, 2020 HISTORY: Pain after fall injury. TECHNIQUE: Single frontal supine view of the chest is obtained. FINDINGS: Stable dual-lumen right internal jugular dialysis catheter. There is no suspicious new foc al air space opacity, pleural effusion, or pneumothorax seen. Stable somewhat low lung volumes. The cardiac silhouette size is stable and mildly enlarged with multilead pacemaker redemonstrated and ath erosclerotic aorta. Calcified left hilar granulomas or lymph nodes redemonstrated. The osseous struc tures remain demineralized.. IMPRESSION: Cardiomegaly without new acute pulmonary process.
--- NOTE | 2020-05-25 13:08 | XR ---
EXAMINATION TYPE: XR Hip LT and AP Pelvis DATE OF EXAM: 05/25/2020 COMPARISON: NONE HISTORY: Pain after fall injury. TECHNIQUE: A single AP view of the pelvis is obtained. Two views of the left hip are obtained. FINDINGS: Osseous structures are demineralized. There is acute displaced comminuted fracture involvin g the greater trochanter of the left proximal femur. No extension through the femoral neck clearly se en no hip joint dislocation. [id number] axial joint space loss in both hips. Pubic symphysis is intact. Sacroiliac joints show asymmetric right greater than left narrowing and sclerosis. Overlying vascular calcification is present bilaterally. IMPRESSION: There is acute minimally displaced comminuted fracture through the greater trochanter le ft proximal femur.
--- NOTE | 2020-05-25 13:10 | XR ---
EXAMINATION TYPE: XR lumbar spine 2 or 3V DATE OF EXAM: 05/25/2020 CLINICAL HISTORY: Pain after fall injury. TECHNIQUE: Frontal and lateral images of the lumbar spine are obtained. COMPARISON: None FINDINGS: There are 5 lumbar type vertebral bodies identified. There is levoconvex scoliosis centere d at L3 level. Moderate to severe multilevel disc space narrowing and moderate multilevel anterior an d lateral spurring. Vertebral body heights fairly well maintained. Vacuum disc phenomenon L3-L4 throu gh L5-S1 levels. Endplate sclerosis L5-S1 level. Vascular calcification overlying abdominal aorta ext ending into the iliac branch vessels. No acute fracture or dislocation. IMPRESSION: As above.
[2020-05-25] MEDS ORDERED: NALOXONE 0.4 MG/ML 1 ML VIAL IV PRN ×2 (13:32→14:18)
--- NOTE | 2020-05-25 13:35 | ED ---
Fall HPI - General Source: patient, EMS Mode of arrival: EMS <Harika Loving Dhruv - Last Filed: 05/25/20 13:57> <Paul Simmons - Last Filed: 05/25/20 14:17> - General Chief Complaint: Fall Stated Complaint: fall, hip injury Time Seen by Provider: 05/25/20 11:59 - History of Present Illness Initial Comments: 84-year-old fever present today for chief complaint of left hip pain after fall. Patient states she tripped falling onto her left side she states she also bumped her left arm when she attempted to cut herself. She complains of some bruising of the left arm she states this is because she is in all quit she states she has no limited range of motion of the left arm. She states she is unable to weight-bear and ambulate secondary to pain in the left hip. She is concerned about fracture. She states she has mild low back pain she denies any severe tenderness. She denies any head injury head or neck pain she states she will believe she did not hit her head she will this was an unwitnessed fall. She denies loss of consciousness. She denies any chest pain short is a breath. Deep inspiration. Patient denies any numbness tingling loss of sensation of the left lower extremity. Patient has no additional complaints patient does do dialysis with scheduled dialysis for tomorrow (Harika Loving) - Related Data Home Medications Medication Instructions Recorded Confirmed Levothyroxine Sodium [Synthroid] 100 mcg PO HS 01/31/14 04/05/20 Flecainide [Tambocor] 50 mg PO BID 10/12/16 04/05/20 allopurinoL [Zyloprim] 100 mg PO DAILY 01/18/17 04/05/20 atenoloL [Tenormin] 50 mg PO DAILY@1200 10/10/17 04/05/20 Acetaminophen [Tylenol] 1,000 mg PO Q8H PRN MDD 3000 MG 05/22/18 04/05/20 Cholecalciferol (Vitamin D3) 4,000 unit PO DAILY@1200 05/26/19 04/05/20 [Vitamin D3] Pantoprazole [Protonix] 40 mg PO HS 08/16/19 04/05/20 Folic Acid-Vit B Complex-Vit C 1 cap PO DAILY@1700 02/04/20 04/05/20 [Nephrocaps] Insulin Lispro [humaLOG Kwikpen] See Protocol SQ AC-TID 02/04/20 04/05/20 Ondansetron [Zofran] 4 mg PO Q8HR PRN 02/04/20 04/05/20 Torsemide [Demadex] 40 mg PO SUTUTHSA@0600 02/04/20 04/05/20 Apixaban [Eliquis] 2.5 mg PO BID 02/22/20 04/05/20 Kaopectate Susp 262 mg PO BID@0900,1700 02/22/20 04/05/20 Kaopectate Susp 262 mg PO DAILY PRN 02/22/20 04/05/20 Torsemide [Demadex] 40 mg PO MOWEFR@1300 02/22/20 04/05/20 Atorvastatin [Lipitor] 10 mg PO DAILY 04/05/20 04/05/20 Dicyclomine [Bentyl] 10 mg PO TID PRN 04/05/20 04/05/20 Loperamide HCl [Loperamide] 2 mg PO QID PRN 04/05/20 04/05/20 Allergies Allergy/AdvReac Type Severity Reaction Status Date / Time Penicillins Allergy Rash/Hives Verified 04/05/20 12:33 Sulfa (Sulfonamide Allergy Rash/Hives Verified 04/05/20 12:33 Antibiotics) meperidine HCl [From Demerol] AdvReac Nausea & Verified 04/05/20 12:33 Vomiting Review of Systems ROS Other: All systems not noted in ROS Statement are negative. <Harika Loving - Last Filed: 05/25/20 13:57> ROS Other: All systems not noted in ROS Statement are negative. <Paul Simmons - Last Filed: 05/25/20 14:17> ROS Statement: Those systems with pertinent positive or pertinent negative responses have been documented in the HPI. Past Medical History Past Medical History: Atrial Fibrillation, Heart Failure, Diabetes Mellitus, Deep Vein Thrombosis (DVT), GERD/Reflux, Hyperlipidemia, Hypertension, Myocardial Infarction ([place]), Osteoarthritis (OA), Pulmonary Embolus ([place]), Renal Disease, Rheumatoid Arthritis (RA), Sleep Apnea/CPAP/BIPAP, Thyroid Disorder Additional Past Medical History / Comment(s): Pt recently admitted to [facility] on 02/06/20 with UTI/ESBL/bacteremia. Other hx: IDDM type II, diabetic neuropathy bilateral hands/feet, ESRD with hemodialysis M/W/F, has temporary boone cath for dialysis d/t R upper arm recent fistula surgery 02/01/20 in which fistula was repositioned, R arm/shoulder limited ROM since fistula surgery, current UTI, recurrent UTIs, pt was told she had a past [place] d/t EKG, palpitations, SSS with pacer, HARRIS with Cpap, chronic back and bilateral knee pain, hypothyroid. Last Myocardial Infarction Date:: unknown History of Any Multi-Drug Resistant Organisms: ESBL Date of last positivie culture/infection: 02/04/20 MDRO Source:: ESBL URINE Past Surgical History: Bladder Surgery, Hysterectomy, Pacemaker Additional Past Surgical History / Comment(s): 02/01/20 R upper arm fistula repositioned, R chest boone cath, rectocele, cystocele, hemorrhoidectomy, bilateral leg vein strippings, bilateral cataract removal, Picc lines Past Anesthesia/Blood Transfusion Reactions: No Reported Reaction Type of Cardiac Device: Permanent Pacemaker Device Placement Date:: 01/2017 Past Psychological History: No Psychological Hx Reported Smoking Status: Never smoker Past Alcohol Use History: None Reported Past Drug Use History: None Reported - Past Family History Father Family Medical History: AFIB, AICD/Pacemaker, Congestive Heart Failure (CHF), Coronary Artery Disease (CAD), Diabetes Mellitus, Dialysis, Deep Vein Thrombosis (DVT), Hyperlipidemia, Hypertension, Myocardial Infarction ([place]), Rheumatoid Arthritis (RA) Mother Family Medical History: Unable to Obtain Sister(s) Family Medical History: Cancer <Harika Loving L - Last Filed: 05/25/20 13:57> General Exam Limitations: physical limitation <Harika Loving L - Last Filed: 05/25/20 13:57> - General Exam Comments Initial Comments: General: The patient is awake and alert, appears uncomfortable Eye: +3 mm pupils are equal, round and reactive to light, extra-ocular movements are intact. No nystagmus. There is normal conjunctiva bilaterally. No signs of icterus. Ears, nose, mouth and throat: There are moist mucous membranes and no oral lesions. No raccoon or Muñiz sign no scalp hematomas appreciated Neck: The neck is supple, there is no tenderness or JVD. Cardiovascular: There is a regular rate and rhythm. No murmur, rub or gallop is appreciated. Respiratory: Lungs are clear to auscultation, respirations are non-labored, breath sounds are equal. No wheezes, stridor, rales, or rhonchi. Gastrointestinal: Soft, non-distended, non-tender abdomen without masses or organomegaly noted. There is no rebound or guarding present. Musculoskeletal: No specific shortening or rotation is appreciated. Patient is full sensation proximal distal to area of injury with +2 dorsalis pedis pulses. Patient is no tenderness to patient of the knees bilaterally or the ankles. Patient does have some tenderness over the left lateral hip. Patient has no midline tenderness to palpation of the cervical thoracic or lumbar spine , some lumbar paraspinal tenderness appreciated. Neurological: A&O x 3. CN II-XII intact, There are no obvious motor or sensory deficits. Coordination appears grossly intact. Speech is normal. Skin: Skin is warm and dry and no rashes or lesions are noted. Psychiatric: Cooperative, appropriate mood & affect, normal judgment. (Harika Loving) Course <Harika Loving - Last Filed: 05/25/20 13:57> Vital Signs 05/25/20 11:57 Temperature 97.7 F Pulse Rate 64 Respiratory 6 L Rate Blood Pressure 145/126 O2 Sat by Pulse 100 Oximetry - Reevaluation(s) Reevaluation #1: 05/25/20 13:57 Signed out to attending pending CT (Harika Loving) Medical Decision Making - Lab Data Result diagrams: 05/25/20 12:29 05/25/20 12:29 <Harika Loving - Last Filed: 05/25/20 13:57> - Lab Data Result diagrams: 05/25/20 12:29 05/25/20 12:29 <Paul Simmons - Last Filed: 05/25/20 14:17> - Medical Decision Making 84yo female presenting for cc of fall with left hip pain. XR concerning for greater trochanter fracture. She is neurovascularly intact she denied any head injury however given this was unwitnessed fall she was not sure and on eliquis CT of the brain was obtained. No focal neurological deficits. Patient case discussed with Dr Hinson who consulted brand protection manager orthopedic PA who recommended CT of the left hip for further characterization. (Harika Loving) Patient is sent out to me by previous shift physician topographical field assistant Laurie Wilcox. I did discussed patient case with Enmanuel Quiroz. She recommended getting a CT of the head. There is acute comminuted fracture of the left proximal femur involving the greater trochanter with intertrochanteric extension. Patient will be admitted to orthopedic surgery service. (Paul Simmons) - Lab Data Lab Results 05/25/20 05/25/20 05/25/20 Range/Units 12:29 12:29 12:29 WBC 8.2 (3.8-10.6) k/uL RBC 3.26 L (3.80-5.40) m/uL Hgb 11.4 (11.4-16.0) gm/dL Hct 34.7 (34.0-46.0) % MCV 106.5 H (80.0-100.0) fL MCH 34.9 (25.0-35.0) pg MCHC 32.8 (31.0-37.0) g/dL RDW 14.4 (11.5-15.5) % Plt Count 133 L (150-450) k/uL Neutrophils % 78 % Lymphocytes % 14 % Monocytes % 5 % Eosinophils % 2 % Basophils % 0 % Neutrophils # 6.4 (1.3-7.7) k/uL Lymphocytes # 1.2 (1.0-4.8) k/uL Monocytes # 0.4 (0-1.0) k/uL Eosinophils # 0.1 (0-0.7) k/uL Basophils # 0.0 (0-0.2) k/uL Macrocytosis Moderate PT 10.0 (9.0-12.0) sec INR 1.0 (<1.2) APTT 23.0 (22.0-30.0) sec Sodium 134 L (137-145) mmol/L Potassium 4.8 (3.5-5.1) mmol/L Chloride 97 L (98-107) mmol/L Carbon Dioxide 26 (22-30) mmol/L Anion Gap 11 mmol/L BUN 38 H (7-17) mg/dL Creatinine 2.65 H (0.52-1.04) mg/dL Est GFR (CKD-EPI)AfAm 18 (>60 ml/min/1.73 sqM) Est GFR (CKD-EPI)NonAf 16 (>60 ml/min/1.73 sqM) Glucose 147 H (74-99) mg/dL Calcium 9.0 (8.4-10.2) mg/dL Total Bilirubin 0.5 (0.2-1.3) mg/dL AST 31 (14-36) U/L ALT 21 (4-34) U/L Alkaline Phosphatase 121 (38-126) U/L Total Protein 6.9 (6.3-8.2) g/dL Albumin 4.1 (3.5-5.0) g/dL Disposition Is patient prescribed a controlled substance at d/c from ED?: No Time of Disposition: 13:35 Decision to Admit Reason: Admit from EC Decision Date: 05/25/20 Decision Time: 13:35 <Harika Loving - Last Filed: 05/25/20 13:57> <Paul Simmons - Last Filed: 05/25/20 14:17> Clinical Impression: Fall, Chronic kidney disease, Femur fracture Disposition: ADMITTED IP TO THIS HOSP Condition: Stable Referrals: Phil Blood MD [Primary Care Provider] - 1-2 days
--- NOTE | 2020-05-25 13:50 | CT ---
EXAMINATION TYPE: CT brain cspine wo con DATE OF EXAM: 05/25/2020 COMPARISON: Prior exam 08/01/2018 HISTORY: Fall CT DLP: 1490.3 mGycm Automated exposure control for dose reduction was used. TECHNIQUE: CT scan of the head and cervical spine are performed without contrast. FINDINGS: There is no acute intracranial hemorrhage, mass effect, or midline shift identified. Left frontal low-attenuation consistent with prior infarct is again noted, there is periventricular white matter consistent with chronic small vessel ischemic change. There may be choroid plexus cysts which are stable. There are cerebral vascular calcifications present. Cerumen present in the external santiago tory canal on the right. The ventricles and sulci are within normal limits in size. The globes are i ntact and the visualized sinuses are similar appearance, suspect chronic sinusitis change, findings a re similar with abnormal soft tissue in probable associated calcification within the left maxillary s inus. Cervical spine is visualized in its entirety from C1 through upper thoracic levels and demonstrates p atent alignment without evidence of acute fracture or dislocation. Prevertebral soft tissue appears within normal limits. Degenerative disc changes are again noted. There are facet arthropathy changes . Right jugular central venous catheter is present. The C1-C2 articulation is unremarkable. IMPRESSION: 1. There is no acute fracture or dislocation evident in the cervical spine. 2. No acute intracranial hemorrhage, mass effect, or midline shift is seen.
--- NOTE | 2020-05-25 14:15 | CT ---
EXAMINATION TYPE: CT hip LT wo con DATE OF EXAM: 05/25/2020 COMPARISON: Pelvic and Left hip x-ray earlier today. HISTORY: Left hip fracture, fall injury with pain. CT DLP: 652.6 mGycm Automated exposure control for dose reduction was used. FINDINGS: Corresponding to x-ray there is acute comminuted displaced fracture through the left proximal femur i nvolving the greater trochanter with 2-3 small fracture fragments. Not well seen on ultrasound there is fracture line extension of acute comminuted fracture through the intertrochanteric region of left proximal femur seen best on coronal image 54 and axial image 29. This extends above the lesser trocha nter with cortical disruption. No hip joint dislocation. Mild to moderate axial joint space loss and acetabular spurring. Muscle bulk preserved. Bunn catheter in decompressed bladder. Scattered pelvic phleboliths. Occasion al diverticula in the visualized sigmoid colon. No suspicious pelvic fluid collection. IMPRESSION: Acute comminuted fracture left proximal femur involving greater trochanter with intertroc hanteric extension on CT less well seen on plain films.
[2020-05-25 14:43] LABS: Glucose,Whole Blood 156 mg/dL (75-99)
[2020-05-25] MEDS: SODIUM CHLORIDE 0.9% 1,000 ML IV SCH (17:30)
[2020-05-25] MEDS ORDERED: ACETAMINOPHEN TAB 325 MG TAB PO PRN (18:14)
[2020-05-25] MEDS ORDERED: MORPHINE SULFATE 4 MG/ML SYRINGE IV PRN (18:14)
--- NOTE | 2020-05-25 18:16 | P.CONS ---
History of Present Illness - Reason for Consult Consult date: 05/25/20 Requesting physician: Pelon Sanchez - History of Present Illness 84-year-old female with PMH of atrial fibrillation CHF, diabetes mellitus, hypertension, dyslipidemia, history of pacemaker, ESRD on hemodialysis, sleep apnea, hypothyroidism presents the ED after fall. Patient states that she was sitting at her kitchen table and reached over for her Rollator. She reports that her knees buckled and she twisted and went down. She denies any loss of consciousness. She experienced left-sided hip pain after her fall. She was able to call her daughter nearby to call EMS. Patient currently reports 7 out of 10 pain in her hip with numbness in her toes in the left lower extremity. She denies any headache, lower extremity edema, nausea or vomiting, fever or chills, cough, chest pain, shortness of breath, palpitations, changes in urination or bowel habits. No changes in appetite or weight. She denies any dizziness, numbness/weakness/tingling of the extremities. In the ED, her vital signs were stable except for elevated blood pressure 145/126. CBC showed MCV of 106.5. CMP showed sodium of 134, chloride of 97, BUN of 38, creatinine of 2.65, glucose of 147. CT head and C-spine was negative. CT of the hip showed acute fracture of the left proximal femur involving the greater trochanter with intertrochanteric extension. Patient is admitted for greater than 48 hour admission for orthopedic evaluation for left femoral fracture. Review of Systems Pertinent positives and negatives as discussed in HPI, a complete review of systems was performed and all other systems are negative. Past Medical History Past Medical History: Atrial Fibrillation, Heart Failure, Diabetes Mellitus, Deep Vein Thrombosis (DVT), GERD/Reflux, Hyperlipidemia, Hypertension, Myocardial Infarction ([place]), Osteoarthritis ([place]), Pulmonary Embolus ([place]), Renal Disease, Rheumatoid Arthritis ([place]), Sleep Apnea/CPAP/BIPAP, Thyroid Disorder Additional Past Medical History / Comment(s): Pt admitted to [facility] on 02/06/20 with UTI/ESBL/bacteremia. Other hx: IDDM type II, diabetic neuropathy bilateral hands/feet, ESRD with hemodialysis, has temporary boone cath for dialysis d/t R upper arm recent fistula surgery 02/01/20 in which fistula was repositioned, R arm/shoulder limited ROM since fistula surgery, current UTI, recurrent UTIs, pt was told she had a past CT d/t EKG, palpitations, SSS with pacer, HARRIS with Cpap, chronic back and bilateral knee pain, hypothyroid. Last Myocardial Infarction Date:: unknown History of Any Multi-Drug Resistant Organisms: ESBL Year Discovered:: 02/04/20 MDRO Source:: ESBL URINE Past Surgical History: Bladder Surgery, Hysterectomy, Pacemaker Additional Past Surgical History / Comment(s): 02/01/20 R upper arm fistula repositioned, R chest boone cath, rectocele, cystocele, hemorrhoidectomy, bilateral leg vein strippings, bilateral cataract removal, Picc lines Past Anesthesia/Blood Transfusion Reactions: No Reported Reaction Type of Cardiac Device: Permanent Pacemaker Device Placement Date:: 01/2017 Past Psychological History: No Psychological Hx Reported Additional Psychological History / Comment(s): Pt resides in her own home. Her vicky and son-in-law are temporarily staying with her to help out. She has a CPap, rolling walker, cane, life alert. 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 She recieves meals on wheels. Pt currently receiving home care thru [facility] Smoking Status: Never smoker Past Alcohol Use History: None Reported Past Drug Use History: None Reported - Past Family History Father Family Medical History: AFIB, AICD/Pacemaker, Congestive Heart Failure (CHF), Coronary Artery Disease (CAD), Diabetes Mellitus, Dialysis, Deep Vein Thrombosis (DVT), Hyperlipidemia, Hypertension, Myocardial Infarction ([place]), Rheumatoid Arthritis ([place]) Mother Family Medical History: Unable to Obtain Sister(s) Family Medical History: Cancer Medications and Allergies Home Medications Medication Instructions Recorded Confirmed Type Levothyroxine Sodium [Synthroid] 100 mcg PO DAILY 01/31/14 05/25/20 History Flecainide [Tambocor] 50 mg PO BID 10/12/16 05/25/20 History allopurinoL [Zyloprim] 100 mg PO DAILY 01/18/17 05/25/20 History atenoloL [Tenormin] 50 mg PO DAILY 10/10/17 05/25/20 History Acetaminophen [Tylenol] 1,000 mg PO DAILY 05/22/18 05/25/20 History Cholecalciferol (Vitamin D3) 4,000 unit PO DAILY 05/26/19 05/25/20 History [Vitamin D3] Pantoprazole [Protonix] 40 mg PO DAILY 08/16/19 05/25/20 History Folic Acid-Vit B Complex-Vit C 1 cap PO DAILY 02/04/20 05/25/20 History [Nephrocaps] Insulin Lispro [humaLOG Kwikpen] See Protocol SQ AC-TID 02/04/20 05/25/20 History Ondansetron [Zofran] 4 mg PO Q8HR PRN 02/04/20 05/25/20 History Apixaban [Eliquis] 2.5 mg PO BID 02/22/20 05/25/20 History Torsemide [Demadex] 40 mg PO DAILY 02/22/20 05/25/20 History Loperamide HCl [Loperamide] 2 mg PO DAILY PRN 04/05/20 05/25/20 History Calcium Acetate [Phoslo] 667 mg PO DAILY 05/25/20 05/25/20 History Mirtazapine [Remeron] 15 mg PO HS 05/25/20 05/25/20 History Nitrofurantoin Monohyd/M-Cryst 100 mg PO BID 05/25/20 05/25/20 History [Macrobid] Prednisolone Acetate/Pf 1 drop BOTH EYES DAILY 05/25/20 05/25/20 History [Prednisolone Acet 1% Eye Drop] Simvastatin [Zocor] 20 mg PO DAILY 05/25/20 05/25/20 History Allergies Allergy/AdvReac Type Severity Reaction Status Date / Time Penicillins Allergy Rash/Hives Verified 05/25/20 15:22 Sulfa (Sulfonamide Allergy Rash/Hives Verified 05/25/20 15:22 Antibiotics) meperidine HCl [From Demerol] AdvReac Nausea & Verified 05/25/20 15:22 Vomiting Physical Exam Vitals: Vital Signs Temp Pulse Resp BP Pulse Ox 05/25/20 15:05 97.7 F 88 18 141/75 96 05/25/20 15:04 88 18 141/75 96 05/25/20 11:57 97.7 F 64 6 L 145/126 100 Intake and Output 05/25/20 05/25/20 05/25/20 06:59 14:59 22:59 Other: Voiding Method Indwelling Catheter Weight 87.09 kg General: [non toxic], [no distress], [appears at stated age] Derm: [warm], [dry] Head: [atraumatic], [normocephalic], [symmetric] Eyes: [EOMI], [no lid lag], [anicteric sclera] Mouth: [no lip lesion], [mucus membranes moist] Cardiovascular: [S1S2 reg], [no murmur], [positive DP pulse bilateral], Lungs: [CTA bilateral], [no rhonchi, no rales] , [no accessory muscle use] Abdominal: [soft], [ nontender to palpation], [no guarding], [no appreciable organomegaly] Ext: [no gross muscle atrophy], [no edema], [no contractures], tenderness to palpation left lateral hip with restricted range of motion due to pain Neuro: [ CN II-XI grossly intact], [no focal neuro deficits], decreased sensation in the left toes to touch Psych: [Alert], [oriented], [appropriate affect] Results CBC & Chem 7: 05/25/20 12:29 05/25/20 12:29 Labs: Abnormal Lab Results - Last 24 Hours (Table) 05/25/20 05/25/20 05/25/20 Range/Units 12:29 12:29 14:39 RBC 3.26 L (3.80-5.40) m/uL MCV 106.5 H (80.0-100.0) fL Plt Count 133 L (150-450) k/uL Sodium 134 L (137-145) mmol/L Chloride 97 L (98-107) mmol/L BUN 38 H (7-17) mg/dL Creatinine 2.65 H (0.52-1.04) mg/dL Glucose 147 H (74-99) mg/dL POC Glucose (mg/dL) 156 H (75-99) mg/dL Assessment and Plan Assessment: Left proximal femoral fracture ESRD on hemodialysis Diabetes mellitus Chronic conditions: Hypothyroidism, atrial fibrillation, history of CHF, CAD, dyslipidemia, GERD, hypertension As seen on CT hip. Plans: Orthopedic evaluation. Adequate pain control. Hold Eliquis. Nothing by mouth after midnight for possible surgery tomorrow. Cardiology consulted for clearance. Fall precautions. Creatinine 2.65. Plans: Nephrology consulted to initiate hemodialysis. Repeat BMP tomorrow morning. [id number] glucose 156. Plans: Insulin sliding scale. Regular Accu-Cheks. Hypoglycemic precautions. DVT prophylaxis: [SCD boots] Discussed with: [Patient] Anticipated discharge: [2-3 days] Anticipated discharge place: [Home versus [facility]] A total of [35] minutes was spent on the care of this complex patient more than 50% of the time was spent in counseling and care coordination. Patient would like to be full code. Her daughter Krystle is the decision maker if she can't make decisions for herself. Her PCP is Dr. Blood. Thank you for this consult. Please call with any additional questions or concerns.
[2020-05-25] MEDS: MIRTAZAPINE 15 MG TAB PO SCH (20:05)
[2020-05-25] MEDS: FLECAINIDE 50 MG TAB PO SCH (21:39)
[2020-05-25] MEDS: MORPHINE SULFATE 2 MG/ML SYRINGE IVP PRN (23:05)
[2020-05-26] MEDS: HYDROcodone/APAP 5-325MG 1 EACH TAB PO PRN ×4 (00:01→19:35)
[2020-05-26] MEDS: MORPHINE SULFATE 2 MG/ML SYRINGE IVP PRN (02:53)
[2020-05-26] MEDS: LEVOTHYROXINE 100 MCG TAB PO SCH (06:11)
[2020-05-26 07:28] LABS: Basophils % (A) 0 %; Eosinophils # (A) 0.1 k/uL (0-0.7); Eosinophils % (A) 1 %; HCT 31.2 % (34.0-46.0); HGB 10.1 gm/dL (11.4-16.0); Lymphocytes # (A) 1.2 k/uL (1.0-4.8); Lymphocytes % (A) 15 %; MCH 34.3 pg (25.0-35.0); MCHC 32.4 g/dL (31.0-37.0); MCV 105.9 fL (80.0-100.0); Macrocytosis Moderate; Mean Platelet Volume 7.8; Monocytes # (A) 0.5 k/uL (0-1.0); Monocytes % (A) 6 %; Neutrophils # (A) 5.9 k/uL (1.3-7.7); Neutrophils % (A) 76 %; Platelet Count 128 k/uL (150-450); RBC 2.94 m/uL (3.80-5.40); WBC 7.8 k/uL (3.8-10.6)
[2020-05-26] MEDS: CALCIUM ACETATE 667 MG TAB PO SCH (08:37)
[2020-05-26] MEDS: allopurinoL 100 MG TAB PO SCH (08:46)
[2020-05-26] MEDS: atenoloL 50 MG TAB PO SCH (08:46)
[2020-05-26] MEDS: ATORVASTATIN 10 MG TAB PO SCH (08:46)
[2020-05-26] MEDS: FLECAINIDE 50 MG TAB PO SCH (08:47)
[2020-05-26] MEDS: TORSEMIDE 20 MG TAB PO SCH (08:47)
[2020-05-26] MEDS: PANTOPRAZOLE 40 MG TABLET PO SCH (08:47)
--- NOTE | 2020-05-26 09:46 | P.HPOR ---
<Trudy Bains - Last Filed: 05/26/20 09:44> History of Present Illness H&P Date: 05/26/20 This patient is an 84-year-old female with past medical history of diabetes, ESRD currently on hemodialysis, CHF, atrial fibrillation currently on Eliquis that presented to [facility] ED yesterday 05/25/20 with complaints of left hip pain following a ground level fall. The patient states she was getting up from her chair and her knee gave out, causing her to fall into the left hip. She experienced immediate pain and was unable to get off the ground. EMS was called, and the patient was transported to [facility] ED. CT scan of the left hip revealed an intertrochanteric hip fracture. Patient was admitted under the care of Dr. Sanchez for surgical intervention, with consults placed to internal medicine, cardiology, and nephrology. At the time of my exam, the patient is complaining of isolated left hip pain. She notes mild pain in the left upper extremity, although it is improved from yesterday and she is able to move her shoulder, elbow, wrist without pain. Patient notes she ambulates with a walker at baseline for the past 3-4 years. She denies chest pain, shortness of breath, nausea, vomiting, fevers, chills, numbness or tingling of the left lower extremity. Vital signs stable. Past Medical History Past Medical History: Atrial Fibrillation, Heart Failure, Diabetes Mellitus, Deep Vein Thrombosis (DVT), GERD/Reflux, Hyperlipidemia, Hypertension, My ocardial Infarction ([place]), Osteoarthritis (OA), Pulmonary Embolus (PE), Renal Disease, Rheumatoid Arthritis (RA), Sleep Apnea/CPAP/BIPAP, Thyroid Disorder Additional Past Medical History / Comment(s): Pt admitted to [facility] on 02/06/20 with UTI/ESBL/bacteremia. Other hx: IDDM type II, diabetic neuropathy bilateral hands/feet, ESRD with hemodialysis, has temporary boone cath for dialysis d/t R upper arm recent fistula surgery 02/01/20 in which fistula was repositioned, R arm/shoulder limited ROM since fistula surgery, current UTI, recurrent UTIs, pt was told she had a past [place] d/t EKG, palpitations, SSS with pacer, HARRIS with Cpap, chronic back and bilateral knee pain, hypothyroid. Last Myocardial Infarction Date:: unknown History of Any Multi-Drug Resistant Organisms: ESBL Date of last positivie culture/infection: 02/04/20 MDRO Source:: ESBL URINE Past Surgical History: Bladder Surgery, Hysterectomy, Pacemaker Additional Past Surgical History / Comment(s): 02/01/20 R upper arm fistula repositioned, R chest boone cath, rectocele, cystocele, hemorrhoidectomy, bilateral leg vein strippings, bilateral cataract removal, Picc lines Past Anesthesia/Blood Transfusion Reactions: No Reported Reaction Type of Cardiac Device: Permanent Pacemaker Device Placement Date:: 01/2017 Past Psychological History: No Psychological Hx Reported Additional Psychological History / Comment(s): Pt resides in her own home. Her vicky and son-in-law are temporarily staying with her to help out. She has a CPap, rolling walker, cane, life alert. 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 She recieves meals on wheels. Pt currently receiving home care thru [facility] Smoking Status: Never smoker Past Alcohol Use History: None Reported Past Drug Use History: None Reported - Past Family History Father Family Medical History: AFIB, AICD/Pacemaker, Congestive Heart Failure (CHF), Coronary Artery Disease (CAD), Diabetes Mellitus, Dialysis, Deep Vein Thrombosis (DVT), Hyperlipidemia, Hypertension, Myocardial Infarction ([place]), Rheumatoid Arthritis (RA) Mother Family Medical History: Unable to Obtain Sister(s) Family Medical History: Cancer Medications and Allergies Home Medications Medication Instructions Recorded Confirmed Type Levothyroxine Sodium [Synthroid] 100 mcg PO DAILY 01/31/14 05/25/20 History Flecainide [Tambocor] 50 mg PO BID 10/12/16 05/25/20 History allopurinoL [Zyloprim] 100 mg PO DAILY 01/18/17 05/25/20 History atenoloL [Tenormin] 50 mg PO DAILY 10/10/17 05/25/20 History Acetaminophen [Tylenol] 1,000 mg PO DAILY 05/22/18 05/25/20 History Cholecalciferol (Vitamin D3) 4,000 unit PO DAILY 05/26/19 05/25/20 History [Vitamin D3] Pantoprazole [Protonix] 40 mg PO DAILY 08/16/19 05/25/20 History Folic Acid-Vit B Complex-Vit C 1 cap PO DAILY 02/04/20 05/25/20 History [Nephrocaps] Insulin Lispro [humaLOG Kwikpen] See Protocol SQ AC-TID 02/04/20 05/25/20 History Ondansetron [Zofran] 4 mg PO Q8HR PRN 02/04/20 05/25/20 History Apixaban [Eliquis] 2.5 mg PO BID 02/22/20 05/25/20 History Torsemide [Demadex] 40 mg PO DAILY 02/22/20 05/25/20 History Loperamide HCl [Loperamide] 2 mg PO DAILY PRN 04/05/20 05/25/20 History Calcium Acetate [Phoslo] 667 mg PO DAILY 05/25/20 05/25/20 History Mirtazapine [Remeron] 15 mg PO HS 05/25/20 05/25/20 History Nitrofurantoin Monohyd/M-Cryst 100 mg PO BID 05/25/20 05/25/20 History [Macrobid] Prednisolone Acetate/Pf 1 drop BOTH EYES DAILY 05/25/20 05/25/20 History [Prednisolone Acet 1% Eye Drop] Simvastatin [Zocor] 20 mg PO DAILY 05/25/20 05/25/20 History Allergies Allergy/AdvReac Type Severity Reaction Status Date / Time Penicillins Allergy Rash/Hives Verified 05/25/20 15:22 Sulfa (Sulfonamide Allergy Rash/Hives Verified 05/25/20 15:22 Antibiotics) meperidine HCl [From Demerol] AdvReac Nausea & Verified 05/25/20 15:22 Vomiting Physical Examination On examination, the patient is lying in bed in no apparent distress. She is alert and oriented 3. Right appears normocephalic and atraumatic. Her pain today appears nonlabored. On inspection of the right lower and upper extremities, no deformity or signs of trauma. On inspection of the left upper extremity, there is ecchymosis of the forearm without lacerations or abrasions. There is no pain on palpation of the left shoulder, humerus, elbow, forearm, wrist, hand. On inspection of the left lower extremity, there is no ecchymosis or open wounds to the left hip. There is diffuse palpation of the left hip. There is no pain on palpation of the left thigh, knee, lower leg, ankle, foot. Patient has good strength and range of motion of the left ankle. No pain with passive range of motion of the ankle. Motor and sensory function are intact. Dorsalis pedis pulse +2. Left lower extremity is warm and well perfused with brisk capillary refill distally. Calves are soft and nontender to palpation bilaterally. Results Left hip CT scan 05/25/20: Acute intertrochanteric hip fracture. Left forearm and humerus x-rays 05/25/20: No acute fractures or dislocations. Head/cervical spine CT 05/25/20: Per report, negative for acute processes. - Labs Labs: Abnormal Lab Results - Last 24 Hours (Table) 05/25/20 05/25/20 05/25/20 Range/Units 12:29 12:29 14:39 RBC 3.26 L (3.80-5.40) m/uL Hgb (11.4-16.0) gm/dL Hct (34.0-46.0) % MCV 106.5 H (80.0-100.0) fL Plt Count 133 L (150-450) k/uL Sodium 134 L (137-145) mmol/L Chloride 97 L (98-107) mmol/L BUN 38 H (7-17) mg/dL Creatinine 2.65 H (0.52-1.04) mg/dL Glucose 147 H (74-99) mg/dL POC Glucose (mg/dL) 156 H (75-99) mg/dL 05/26/20 Range/Units 07:05 RBC 2.94 L (3.80-5.40) m/uL Hgb 10.1 L (11.4-16.0) gm/dL Hct 31.2 L (34.0-46.0) % MCV 105.9 H (80.0-100.0) fL Plt Count 128 L (150-450) k/uL Sodium (137-145) mmol/L Chloride (98-107) mmol/L BUN (7-17) mg/dL Creatinine (0.52-1.04) mg/dL Glucose (74-99) mg/dL POC Glucose (mg/dL) (75-99) mg/dL H & H 05/25/20 05/26/20 Range/Units 12:29 07:05 Hgb 11.4 10.1 L (11.4-16.0) gm/dL Hct 34.7 31.2 L (34.0-46.0) % Coagulation 05/25/20 Range/Units 12:29 INR 1.0 (<1.2) Result Diagrams: 05/26/20 07:05 05/25/20 12:29 Assessment and Plan Assessment: Acute left intertrochanteric hip fracture Plan: - The clinical and imaging findings were discussed with the patient. The patient was discussed with Dr. Sanchez. Recommended operative fixation of the the left intertrochanteric hip fracture. We will plan for a closed reduction and insertion of a left IT nail this afternoon, pending medical clearance from internal medicine, cardiology, and nephrology. - Strict non-weight bearing on left lower extremity. Bed rest. - Pain management as needed. - NPO diet. <Pelon Sanchez - Last Filed: 05/26/20 12:55> Results - Labs Labs: Abnormal Lab Results - Last 24 Hours (Table) 05/25/20 05/25/20 05/25/20 Range/Units 12:29 12:29 14:39 RBC 3.26 L (3.80-5.40) m/uL Hgb (11.4-16.0) gm/dL Hct (34.0-46.0) % MCV 106.5 H (80.0-100.0) fL Plt Count 133 L (150-450) k/uL Sodium 134 L (137-145) mmol/L Chloride 97 L (98-107) mmol/L BUN 38 H (7-17) mg/dL Creatinine 2.65 H (0.52-1.04) mg/dL Est GFR (CKD-EPI)AfAm (60.0-200.0) Est GFR (CKD-EPI)NonAf (60.0-200.0) Glucose 147 H (74-99) mg/dL POC Glucose (mg/dL) 156 H (75-99) mg/dL Calcium (8.7-10.3) mg/dL Total Protein (6.2-8.2) g/dL Albumin (3.80-4.90) g/dL 05/26/20 05/26/20 Range/Units 07:05 07:05 RBC 2.94 L (3.80-5.40) m/uL Hgb 10.1 L (11.4-16.0) gm/dL Hct 31.2 L (34.0-46.0) % MCV 105.9 H (80.0-100.0) fL Plt Count 128 L (150-450) k/uL Sodium (137-145) mmol/L Chloride (98-107) mmol/L BUN 46.0 H (7-17) mg/dL Creatinine 3.4 H (0.52-1.04) mg/dL Est GFR (CKD-EPI)AfAm 13.5 L (60.0-200.0) Est GFR (CKD-EPI)NonAf 11.6 L (60.0-200.0) Glucose 159 H (74-99) mg/dL POC Glucose (mg/dL) (75-99) mg/dL Calcium 8.4 L (8.7-10.3) mg/dL Total Protein 5.4 L (6.2-8.2) g/dL Albumin 3.60 L (3.80-4.90) g/dL H & H 05/25/20 05/26/20 Range/Units 12:29 07:05 Hgb 11.4 10.1 L (11.4-16.0) gm/dL Hct 34.7 31.2 L (34.0-46.0) % Coagulation 05/25/20 Range/Units 12:29 INR 1.0 (<1.2) Result Diagrams: 05/26/20 07:05 05/26/20 07:05 Assessment and Plan Plan: Reviewed and agree with above (amendments/corrections noted below). The patient was also seen and examined by me. S: The patient states that her knee simply gave out. She ambulates almost exclusively with a rolling walker. She previously used a cane but finds walker gives her much better stability. She had a recent cortisone injections in both knees by Dr. Emanuel Ingram (05/18/20). She does admit to previous falls but none recently. After she fell, she was unable to get up off the floor and did not try to bear any weight on the leg. She localizes the pain to the left hip. She is on hemodialysis and has been since 10/2019. She lives at home with her daughter and son-in-law. O: Mild pain in the hip with heel pound. Pain with logroll. She does tolerate limited passive hip circumduction but has pain with internal rotation. Subjectively diminished sensation in bilateral feet but at baseline, per the patient. Intact gross motor function with dorsiflexion and plantar flexion. No obvious weakness. Palpable dorsalis pedis pulse. The foot is warm and well- perfused. Imaging: Left hip x-rays and CT scan of the pelvis were reviewed from an orthopedic standpoint: Mildly comminuted greater trochanter fracture with distal extension along the posterior calcar. No definitive fracture lines into the anterior cortex. A: Displaced left greater trochanter fracture with nondisplaced intertrochanteric extension status post fall on 05/25/20. CKD on hemodialysis Diabetes mellitus A fib status post AICD implantation on chronic anticoagulation H/o MDRO (ESBL UTI) Multiple medical comorbidities P: I discussed the diagnosis and radiographic findings in detail with the patient. We reviewed the pertinent anatomy and pathophysiology of the injury. We discussed treatment options and I explained the rationale behind surgical intervention. I explained that this fracture has a high risk of further displacement. Given that and her compromised healing potential from her multiple comorbidities, I recommended operative treatment: Planned surgical procedure: Surgical stabilization of left intertrochanteric femur fracture with intramedullary nailing. We discussed the surgical plan along with the expected postoperative course. Risks and benefits were reviewed, including (but not limited to) the risks of infection, bleeding, blood clots, anesthesia-related complications and possible need for additional surgery. Questions were invited and answered. The patient expressed understanding and wishes to proceed with surgery. The patient will be kept on bedrest. Continue PRN pain management. NPO. We will plan for surgery after preoperative evaluation cardiology and nephrology teams. Pelon Sanchez D.O. [facility]
--- NOTE | 2020-05-26 11:00 | ECHOF ---
Ref[place] Reason[place] [facility] [place]ASUREMENTS -------- HEIGHT: 167.6 cm WEIGHT: 87.1 kg BP: RVIDd: 3.4 cm (< 3.3) IVSd: 1.5 cm (0.6 - 1.1) LVIDd: 3.7 cm (3.9 - 5.3) LVPWd: 1.5 cm (0.6 - 1.1) IVSs: 1.8 cm LVIDs: 2.4 cm LVPWs: 1.5 cm LA Diam: 3.6 cm (2.7 - 3.8) Ao Diam: 3.4 cm (2.0 - 3.7) AV Cusp: 1.7 cm (1.5 - 2.6) MV EXCURSION: 9.718 mm (> 18.000) MV EF SLOPE: 47 mm/s (70 - 150) EPSS: 0.9 cm MV E Earnest: 1.00 m/s MV DecT: 278 ms MV A Earnest: 0.84 m/s MV E/A Ratio: 1.19 RAP: 5.00 mmHg RVSP: 46.82 mmHg FINDINGS -------- Paced rhythm. This was a technically adequate study. The left ventricular size is normal. There is mild concentric left ventricular hypertrophy. Overa ll left ventricular systolic function is normal with, an EF between 60 - 65 %. The right ventricle is mildly enlarged. The left atrial size is normal. The right atrium is normal in size. Interatrial and interventricular septum intact. There is mild aortic valve sclerosis. Mild mitral annular calcification present. There is trace mitral regurgitation. Mild tricuspid regurgitation present. There is moderate pulmonary hypertension. The right ventric ular systolic pressure, as measured by Doppler, is 46.82mmHg. Trace/mild (physiologic) pulmonic regurgitation. The aortic root size is normal. Normal inferior vena cava with normal inspiratory collapse consistent with estimated right atrial pre ssure of 5 mmHg. There is no pericardial effusion. CONCLUSIONS -------- 1. Paced rhythm. 2. This was a technically adequate study. 3. The left ventricular size is normal. 4. There is mild concentric left ventricular hypertrophy. 5. Overall left ventricular systolic function is normal with, an EF between 60 - 65 %. 6. The right ventricle is mildly enlarged. 7. The left atrial size is normal. 8. There is mild aortic valve sclerosis. 9. Mild mitral annular calcification present. 10. There is trace mitral regurgitation. 11. Mild tricuspid regurgitation present. 12. There is moderate pulmonary hypertension. 13. The right ventricular systolic pressure, as measured by Doppler, is 46.82mmHg. 14. Trace/mild (physiologic) pulmonic regurgitation. 15. There is no pericardial effusion. [employer]: Payton Duenas RDCS
[2020-05-26 11:18] LABS: African American GFR (CKD) 13.5 (60.0-200.0); Albumin 3.6 g/dL (3.80-4.90); Anion Gap 10.8 mmol/L (4.00-12.00); BUN/Creat Ratio 13.53 Ratio (12.00-20.00); Calcium 8.4 mg/dL (8.7-10.3); Carbon Dioxide 26.2 mmol/L (21.6-31.8); Globulin 1.8 g/dL (1.6-3.3); Magnesium 1.7 mg/dL (1.5-2.4); Non-African American GFR(CKD) 11.6 (60.0-200.0); Potassium 4.7 mmol/L (3.5-5.5); Total Bilirubin 0.3 mg/dL (0.3-1.2); Total Protein 5.4 g/dL (6.2-8.2)
--- NOTE | 2020-05-26 11:19 | P.NPCON ---
History of Present Illness - Reason for Consult end stage renal disease - History of Present Illness reason for consultation: End-stage renal disease History of present illness: Patient is a 84-year-old female seen in renal consultation for end-stage renal disease. She is maintained on hemodialysis on Friday schedule. Patient states she was eating a tomato in her kitchen and subsequently fell. She denies hitting her head. She called her daughter and was brought to the hospital. she is noted to have an acute comminuted fracture of the left proximal humor and is scheduled for surgical intervention today. no fever or chills. No vomiting or diarrhea. No cough. No abdominal pain. No chest pain or shortness of breath. hemodynamically stable. Vital signs are stable. General: The patient appeared well nourished and normally developed. HEENT: Head exam is unremarkable. Neck is without jugular venous distension. LUNGS: Breath sounds decreased. HEART: Rate and Rhythm are regular. ABDOMEN: soft, nontender. EXTREMITITES: No clubbing, cyanosis, or edema. Past Medical History Past Medical History: Atrial Fibrillation, Heart Failure, Diabetes Mellitus, Deep Vein Thrombosis (DVT), GERD/Reflux, Hyperlipidemia, Hypertension, Myocardial Infarction ([place]), Osteoarthritis (OA), Pulmonary Embolus (PE), Renal Disease, Rheumatoid Arthritis (RA), Sleep Apnea/CPAP/BIPAP, Thyroid Disorder Additional Past Medical History / Comment(s): Pt admitted to [facility] on 02/06/20 with UTI/ESBL/bacteremia. Other hx: IDDM type II, diabetic neuropathy bilateral hands/feet, ESRD with hemodialysis, has temporary boone cath for dialysis d/t R upper arm recent fistula surgery 02/01/20 in which fistula was repositioned, R arm/shoulder limited ROM since fistula surgery, current UTI, recurrent UTIs, pt was told she had a past [place] d/t EKG, palpitations, SSS with pacer, HARRIS with Cpap, chronic back and bilateral knee pain, hypothyroid. Last Myocardial Infarction Date:: unknown History of Any Multi-Drug Resistant Organisms: ESBL Date of last positivie culture/infection: 02/04/20 MDRO Source:: ESBL URINE Past Surgical History: Bladder Surgery, Hysterectomy, Pacemaker Additional Past Surgical History / Comment(s): 02/01/20 R upper arm fistula repositioned, R chest boone cath, rectocele, cystocele, hemorrhoidectomy, bilateral leg vein strippings, bilateral cataract removal, Picc lines Past Anesthesia/Blood Transfusion Reactions: No Reported Reaction Type of Cardiac Device: Permanent Pacemaker Device Placement Date:: 01/2017 Past Psychological History: No Psychological Hx Reported Additional Psychological History / Comment(s): Pt resides in her own home. Her vicky and son-in-law are temporarily staying with her to help out. She has a CPap, rolling walker, cane, life alert. 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 She recieves meals on wheels. Pt currently receiving home care thru [facility] Smoking Status: Never smoker Past Alcohol Use History: None Reported Past Drug Use History: None Reported - Past Family History Father Family Medical History: AFIB, AICD/Pacemaker, Congestive Heart Failure (CHF), Coronary Artery Disease (CAD), Diabetes Mellitus, Dialysis, Deep Vein Thrombosis (DVT), Hyperlipidemia, Hypertension, Myocardial Infarction ([place]), Rheumatoid Arthritis (RA) Mother Family Medical History: Unable to Obtain Sister(s) Family Medical History: Cancer Medications and Allergies Home Medications Medication Instructions Recorded Confirmed Type RX: Levothyroxine Sodium 100 mcg PO DAILY 01/31/14 05/25/20 History [Synthroid] RX: Flecainide [Tambocor] 50 mg PO BID 10/12/16 05/25/20 History RX: allopurinoL [Zyloprim] 100 mg PO DAILY 01/18/17 05/25/20 History RX: atenoloL [Tenormin] 50 mg PO DAILY 10/10/17 05/25/20 History RX: Acetaminophen [Tylenol] 1,000 mg PO DAILY 05/22/18 05/25/20 History RX: Cholecalciferol (Vitamin D3) 4,000 unit PO DAILY 05/26/19 05/25/20 History [Vitamin D3] RX: Pantoprazole [Protonix] 40 mg PO DAILY 08/16/19 05/25/20 History RX: Folic Acid-Vit B Complex-Vit C 1 cap PO DAILY 02/04/20 05/25/20 History [Nephrocaps] RX: Insulin Lispro [humaLOG See Protocol SQ AC-TID 02/04/20 05/25/20 History Kwikpen] RX: Ondansetron [Zofran] 4 mg PO Q8HR PRN 02/04/20 05/25/20 History RX: Apixaban [Eliquis] 2.5 mg PO BID 02/22/20 05/25/20 History RX: Torsemide [Demadex] 40 mg PO DAILY 02/22/20 05/25/20 History RX: Loperamide HCl [Loperamide] 2 mg PO DAILY PRN 04/05/20 05/25/20 History Calcium Acetate [Phoslo] 667 mg PO DAILY 05/25/20 05/25/20 History Mirtazapine [Remeron] 15 mg PO HS 05/25/20 05/25/20 History Nitrofurantoin Monohyd/M-Cryst 100 mg PO BID 05/25/20 05/25/20 History [Macrobid] Prednisolone Acetate/Pf 1 drop BOTH EYES DAILY 05/25/20 05/25/20 History [Prednisolone Acet 1% Eye Drop] Simvastatin [Zocor] 20 mg PO DAILY 05/25/20 05/25/20 History Allergies Allergy/AdvReac Type Severity Reaction Status Date / Time Penicillins Allergy Rash/Hives Verified 05/25/20 15:22 Sulfa (Sulfonamide Allergy Rash/Hives Verified 05/25/20 15:22 Antibiotics) meperidine HCl [From Demerol] AdvReac Nausea & Verified 05/25/20 15:22 Vomiting Physical Exam Vitals: Vital Signs Temp Pulse Pulse Resp BP BP Pulse Ox 05/26/20 07:00 98.1 F 63 16 125/70 92 L 05/26/20 02:18 98.3 F 64 16 104/56 93 L 05/25/20 23:33 65 18 05/25/20 20:05 65 18 05/25/20 18:45 97.5 F L 65 18 148/77 98 05/25/20 15:05 97.7 F 88 18 141/75 96 05/25/20 15:04 88 18 141/75 96 05/25/20 11:57 97.7 F 64 6 L 145/126 100 Intake and Output 05/25/20 05/26/20 05/26/20 22:59 06:59 14:59 Output Total 650 275 Balance -650 -275 Output: Urine 650 275 Other: Voiding Method Indwelling Catheter Indwelling Catheter Results - Lab Results Most recent lab results Calcium 9.0 mg/dL (8.4-10.2) 05/25/20 12:29 05/26/20 07:05 05/25/20 12:29 Assessment and Plan Plan: Assessment: 1. End-stage renal disease maintained on hemodialysis on Friday schedule. 2. Left hip fracture scheduled for surgery today. 3. Chronic kidney disease mineral bone disease maintained on PhosLo. 4. Chronic diastolic CHF and moderate pulmonary hypertension. plan: Hemodialysis today. Cleared for left hip surgery from nephrology standpoint. Thank you for the consultation. I will continue to follow the patient with you during her hospital stay.
--- NOTE | 2020-05-26 12:53 | P.CRDCN ---
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 She follows in the office with Dr. Starr. We have been asked to see in consultation for preoperative evaluation. She states she was sitting down and her table was attempting to stand up when she lost her footing and fell landing on her left side. She denies loss of consciousness, chest pain, dizziness or palpitations surrounding the fall. Diagnostic imaging revealed minimally displaced comminuted left great trochanter of the left proximal femur fracture. She is scheduled to undergo surgical repair this afternoon. Her last dose of Eliquis was yesterday morning. She is also scheduled to have hemodialysis prior to surgery. She is seen and examined resting comfortably sitting up in bed in no acute distress. She denies symptoms of shortness of breath, chest pain, dizziness or palpitations. Echocardiogram obtained this morning reveals preserved LV systolic function with ejection fraction 60-65%, mild TR and moderate pulmonary hypertension with RVSP of 46 mmHg. DIAGNOSTICS There is no EKG obtained on admission. Chest xray negative for an acute cardiopulmonary process. Laboratory reviewed, WBC 7.8, hemoglobin 10.1, platelets 128, sodium 135, potassium 4.7, creatinine on admission 2.6 5 repeat today 3.4, magnesium 1.7. Current cardiac medications include Eliquis 2.5 mg twice a day, flecainide 50 mg twice a day, simvastatin 20 mg daily, torsemide 40 mg daily and atenolol 50 mg daily. REVIEW OF SYSTEMS At the time of my exam: CONSTITUTIONAL: Denies fever or chills. CARDIOVASCULAR: Denies chest pain, shortness of breath, orthopnea, PND or palpitations. RESPIRATORY: Denies cough. GASTROINTESTINAL: Denies abdominal pain, diarrhea, constipation, nausea or v omiting. MUSCULOSKELETAL: Denies myalgias. NEUROLOGIC: Denies numbness, tingling or weakness. ENDOCRINE: Denies fatigue, weight change, polydipsia or polyurina. GENITOURINARY: Denies burning, hematuria or urgency with micturation. HEMATOLOGIC: Denies history of anemia or bleeding. PHYSICAL EXAMINATION Blood pressure 125/70 heart rate 63 afebrile and maintaining oxygen saturation on room air. CONSTITUTIONAL: No apparent distress. HEENT: Head is normocephalic. Pupils are equal, round. Sclerae anicteric. Mucous membranes of the mouth are moist. No JVD. No carotid bruit. CHEST EXAMINATION: Lungs are clear to auscultation. No chest wall tenderness is noted on palpation or with deep breathing. HEART EXAMINATION: Regular rate and rhythm. S1, S2 heard. No murmurs, gallops or rub. ABDOMEN: Soft, nontender. Positive bowel sounds. EXTREMITIES: 2+ peripheral pulses, no lower extremity edema and no calf tenderness. NEUROLOGIC EXAMINATION: Patient is awake, alert and oriented x3. ASSESSMENT Fall Left intertrochanteric fracture Permanent pacemaker implantation Chronic persistent atrial fibrillation on long-term anticoagulation End-stage renal disease on hemodialysis History of pacemaker induced cardiomyopathy Hypertension Dyslipidemia PLAN Obtain baseline preoperative EKG please. Discontinue flecainide secondary to end-stage renal disease. We will consider initiation of amiodarone postoperatively. Clinically stable from a cardiac perspective. The patient is euvolemic and having no symptoms of angina. She is increased risk secondary to multiple comorbid conditions. Magnet should be used over her pacemaker during the procedure. Cautious fluid administration and optimal blood pressure control intraoperatively. Resume Eliquis postoperatively. Further recommendations to follow based upon clinical course. Thank you kindly for this consultation. Nurse Practitioner note has been reviewed, I agree with a documented findings and plan of care. Patient was seen and examined. Past Medical History Past Medical History: Atrial Fibrillation, Heart Failure, Diabetes Mellitus, Deep Vein Thrombosis (DVT), GERD/Reflux, Hyperlipidemia, Hypertension, Myocardial Infarction ([place]), Osteoarthritis (OA), Pulmonary Embolus (PE), Renal Disease, Rheumatoid Arthritis (RA), Sleep Apnea/CPAP/BIPAP, Thyroid Disorder Additional Past Medical History / Comment(s): Pt admitted to [facility] on 02/06/20 with UTI/ESBL/bacteremia. Other hx: IDDM type II, diabetic neuropathy bilateral hands/feet, ESRD with hemodialysis, has temporary boone cath for dialysis d/t R upper arm recent fistula surgery 02/01/20 in which fistula was repositioned, R arm/shoulder limited ROM since fistula surgery, current UTI, recurrent UTIs, pt was told she had a past [place] d/t EKG, palpitations, SSS with pacer, HARRIS with Cpap, chronic back and bilateral knee pain, hypothyroid. Last Myocardial Infarction Date:: unknown History of Any Multi-Drug Resistant Organisms: ESBL Date of last positivie culture/infection: 02/04/20 MDRO Source:: ESBL URINE Past Surgical History: Bladder Surgery, Hysterectomy, Pacemaker Additional Past Surgical History / Comment(s): 02/01/20 R upper arm fistula repositioned, R chest boone cath, rectocele, cystocele, hemorrhoidectomy, bilateral leg vein strippings, bilateral cataract removal, Picc lines Past Anesthesia/Blood Transfusion Reactions: No Reported Reaction Type of Cardiac Device: Permanent Pacemaker Device Placement Date:: 01/2017 Past Psychological History: No Psychological Hx Reported Additional Psychological History / Comment(s): Pt resides in her own home. Her vicky and son-in-law are temporarily staying with her to help out. She has a CPap, rolling walker, cane, life alert. 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 She recieves meals on wheels. Pt currently receiving home care thru [facility] Smoking Status: Never smoker Past Alcohol Use History: None Reported Past Drug Use History: None Reported - Past Family History Father Family Medical History: AFIB, AICD/Pacemaker, Congestive Heart Failure (CHF), Coronary Artery Disease (CAD), Diabetes Mellitus, Dialysis, Deep Vein Thrombosis (DVT), Hyperlipidemia, Hypertension, Myocardial Infarction ([place]), Rheumatoid Arthritis (RA) Mother Family Medical History: Unable to Obtain Sister(s) Family Medical History: Cancer Medications and Allergies Home Medications Medication Instructions Recorded Confirmed Type Levothyroxine Sodium [Synthroid] 100 mcg PO DAILY 01/31/14 05/25/20 History Flecainide [Tambocor] 50 mg PO BID 10/12/16 05/25/20 History allopurinoL [Zyloprim] 100 mg PO DAILY 01/18/17 05/25/20 History atenoloL [Tenormin] 50 mg PO DAILY 10/10/17 05/25/20 History Acetaminophen [Tylenol] 1,000 mg PO DAILY 05/22/18 05/25/20 History Cholecalciferol (Vitamin D3) 4,000 unit PO DAILY 05/26/19 05/25/20 History [Vitamin D3] Pantoprazole [Protonix] 40 mg PO DAILY 08/16/19 05/25/20 History Folic Acid-Vit B Complex-Vit C 1 cap PO DAILY 02/04/20 05/25/20 History [Nephrocaps] Insulin Lispro [humaLOG Kwikpen] See Protocol SQ AC-TID 02/04/20 05/25/20 History Ondansetron [Zofran] 4 mg PO Q8HR PRN 02/04/20 05/25/20 History Apixaban [Eliquis] 2.5 mg PO BID 02/22/20 05/25/20 History Torsemide [Demadex] 40 mg PO DAILY 02/22/20 05/25/20 History Loperamide HCl [Loperamide] 2 mg PO DAILY PRN 04/05/20 05/25/20 History Calcium Acetate [Phoslo] 667 mg PO DAILY 05/25/20 05/25/20 History Mirtazapine [Remeron] 15 mg PO HS 05/25/20 05/25/20 History Nitrofurantoin Monohyd/M-Cryst 100 mg PO BID 05/25/20 05/25/20 History [Macrobid] Prednisolone Acetate/Pf 1 drop BOTH EYES DAILY 05/25/20 05/25/20 History [Prednisolone Acet 1% Eye Drop] Simvastatin [Zocor] 20 mg PO DAILY 05/25/20 05/25/20 History Allergies Allergy/AdvReac Type Severity Reaction Status Date / Time Penicillins Allergy Rash/Hives Verified 05/25/20 15:22 Sulfa (Sulfonamide Allergy Rash/Hives Verified 05/25/20 15:22 Antibiotics) meperidine HCl [From Demerol] AdvReac Nausea & Verified 05/25/20 15:22 Vomiting Physical Exam Vitals: Vital Signs Temp Pulse Pulse Resp BP BP Pulse Ox 05/26/20 07:00 98.1 F 63 16 125/70 92 L 05/26/20 02:18 98.3 F 64 16 104/56 93 L 05/25/20 23:33 65 18 05/25/20 20:05 65 18 05/25/20 18:45 97.5 F L 65 18 148/77 98 05/25/20 15:05 97.7 F 88 18 141/75 96 05/25/20 15:04 88 18 141/75 96 05/25/20 11:57 97.7 F 64 6 L 145/126 100 Intake and Output 05/25/20 05/26/20 05/26/20 22:59 06:59 14:59 Output Total 650 275 Balance -650 -275 Output: Urine 650 275 Other: Voiding Method Indwelling Catheter Indwelling Catheter Results 05/26/20 07:05 05/26/20 07:05 Cardiac Enzymes 05/25/20 Range/Units 12:29 AST 31 (14-36) U/L Coagulation 05/25/20 Range/Units 12:29 PT 10.0 (9.0-12.0) sec APTT 23.0 (22.0-30.0) sec CBC 05/25/20 05/26/20 Range/Units 12:29 07:05 WBC 8.2 7.8 (3.8-10.6) k/uL RBC 3.26 L 2.94 L (3.80-5.40) m/uL Hgb 11.4 10.1 L (11.4-16.0) gm/dL Hct 34.7 31.2 L (34.0-46.0) % Plt Count 133 L 128 L (150-450) k/uL Comprehensive Metabolic Panel 05/25/20 Range/Units 12:29 Sodium 134 L (137-145) mmol/L Potassium 4.8 (3.5-5.1) mmol/L Chloride 97 L (98-107) mmol/L Carbon Dioxide 26 (22-30) mmol/L BUN 38 H (7-17) mg/dL Creatinine 2.65 H (0.52-1.04) mg/dL Glucose 147 H (74-99) mg/dL Calcium 9.0 (8.4-10.2) mg/dL AST 31 (14-36) U/L ALT 21 (4-34) U/L Alkaline Phosphatase 121 (38-126) U/L Total Protein 6.9 (6.3-8.2) g/dL Albumin 4.1 (3.5-5.0) g/dL Current Medications Generic Name Dose Route Start Last Admin Trade Name Freq PRN Reason Stop Dose Admin Acetaminophen 650 mg 05/25/20 18:14 Acetaminophen Tab 325 Mg Tab PO Q6HR PRN Mild Pain or Fever > 100.5 Hydrocodone Bitart/Acetaminophen 1 each 05/25/20 18:14 05/26/20 08:46 Hydrocodone/Apap 5-325mg 1 Each Tab PO 1 each Q4HR PRN Administration Moderate Pain Allopurinol 100 mg 05/26/20 09:00 05/26/20 08:46 Allopurinol 100 Mg Tab PO 100 mg DAILY [place] Administration Atenolol 50 mg 05/26/20 09:00 05/26/20 08:46 Atenolol 50 Mg Tab PO 50 mg DAILY [place] Administration Atorvastatin Calcium 10 mg 05/26/20 09:00 05/26/20 08:46 Atorvastatin 10 Mg Tab PO 10 mg DAILY [place] Administration Calcium Acetate 667 mg 05/26/20 09:00 05/26/20 08:37 Calcium Acetate 667 Mg Tab PO Not Given DAILY [place] Flecainide Acetate 50 mg 05/25/20 21:00 05/26/20 08:47 Flecainide 50 Mg Tab PO 50 mg BID [place] Administration Sodium Chloride 1,000 mls @ 50 mls/hr 05/25/20 13:45 05/25/20 17:30 Saline 0.9% IV 50 mls/hr .Q20H [place] Administration Levothyroxine Sodium 100 mcg 05/26/20 06:30 05/26/20 06:11 Levothyroxine 100 Mcg Tab PO 100 mcg DAILY@0630 [place] Administration Mirtazapine 15 mg 05/25/20 21:00 05/25/20 20:05 Mirtazapine 15 Mg Tab PO 15 mg HS [place] Administration Morphine Sulfate 2 mg 05/25/20 15:02 05/26/20 02:53 Morphine Sulfate 2 Mg/Ml Syringe IVP 2 mg Q4H PRN Administration Pain/Discomfort Morphine Sulfate 2 mg 05/25/20 18:14 05/25/20 20:06 Morphine Sulfate 4 Mg/Ml Syringe IV 2 mg Q4HR PRN Administration Severe Pain Naloxone HCl 0.2 mg 05/25/20 13:32 Naloxone 0.4 Mg/Ml 1 Ml Vial IV Q2M PRN Opioid Reversal Naloxone HCl 0.2 mg 05/25/20 14:18 Naloxone 0.4 Mg/Ml 1 Ml Vial IV Q2M PRN Opioid Reversal Pantoprazole Sodium 40 mg 05/26/20 07:30 05/26/20 08:47 Pantoprazole 40 Mg Tablet PO 40 mg DAILY@0730 [place] Administration Torsemide 40 mg 05/26/20 09:00 05/26/20 08:47 Torsemide 20 Mg Tab PO 40 mg DAILY [place] Administration Intake and Output 05/25/20 05/26/20 05/26/20 22:59 06:59 14:59 Output Total 650 275 Balance -650 -275 Output: Urine 650 275 Other: Voiding Method Indwelling Catheter Indwelling Catheter 05/26/20 07:05 05/25/20 12:29
[2020-05-26] MEDS: SODIUM CHLORIDE 0.9% 1,000 ML IV SCH (16:03)
[2020-05-26 16:42] LABS: Glucose,Whole Blood 158 mg/dL (75-99)
[2020-05-26] MEDS: INSULIN ASPART (NovoLOG) 100 UNIT/ML VIAL SQ SCH ×2 (17:19→20:43)
--- NOTE | 2020-05-26 17:26 | P.PN ---
Subjective Progress Note Date: 05/26/20 Patient was seen and examined. No acute events overnight. Upset surgery was not today. Complains of uncontrolled pain in her hip. She denies any chest pain, shortness breath or palpitations. No nausea or vomiting. No fever or chills. Objective - Vital Signs Vital signs: Vital Signs Temp 97.6 F 05/26/20 14:40 Pulse 65 05/26/20 14:40 Resp 18 05/26/20 14:40 BP 161/80 05/26/20 14:40 Pulse Ox 100 05/26/20 14:40 Intake & Output 05/25/20 05/26/20 05/26/20 18:59 06:59 18:59 Output Total 400 525 Balance -400 -525 Weight 87.09 kg Output: Urine 400 525 Other: Voiding Method Indwelling Catheter Indwelling Catheter Indwelling Catheter - Exam General: [non toxic], [no distress], [appears at stated age] Derm: [warm], [dry] Head: [atraumatic], [normocephalic], [symmetric] Eyes: [EOMI], [no lid lag], [anicteric sclera] Mouth: [no lip lesion], [mucus membranes moist] Cardiovascular: [S1S2 reg], [no murmur], [positive DP pulse bilateral], Lungs: [CTA bilateral], [no rhonchi, no rales] , [no accessory muscle use] Abdominal: [soft], [ nontender to palpation], [no guarding], [no appreciable organomegaly] Ext: [no gross muscle atrophy], [no edema], [no contractures], tenderness to palpation left lateral hip with restricted range of motion due to pain, right upper extremity fistula Neuro: [no focal neuro deficits], decreased sensation in the left toes to touch Psych: [Alert], [oriented], [appropriate affect] - Labs CBC & Chem 7: 05/26/20 07:05 05/26/20 07:05 Labs: Abnormal Lab Results - Last 24 Hours (Table) 05/26/20 05/26/20 05/26/20 Range/Units 07:05 07:05 16:40 RBC 2.94 L (3.80-5.40) m/uL Hgb 10.1 L (11.4-16.0) gm/dL Hct 31.2 L (34.0-46.0) % MCV 105.9 H (80.0-100.0) fL Plt Count 128 L (150-450) k/uL BUN 46.0 H (9.0-27.0) mg/dL Creatinine 3.4 H (0.6-1.5) mg/dL Est GFR (CKD-EPI)AfAm 13.5 L (60.0-200.0) Est GFR (CKD-EPI)NonAf 11.6 L (60.0-200.0) Glucose 159 H (70-110) mg/dL POC Glucose (mg/dL) 158 H (75-99) mg/dL Calcium 8.4 L (8.7-10.3) mg/dL Total Protein 5.4 L (6.2-8.2) g/dL Albumin 3.60 L (3.80-4.90) g/dL Assessment and Plan Assessment: Left proximal femoral fracture ESRD on hemodialysis Diabetes mellitus Atrial fibrillation Chronic conditions: Hypothyroidism, atrial fibrillation, history of CHF, CAD, dyslipidemia, GERD, hypertension As seen on CT hip. Nephrology cleared the patient for surgery. Patient is clinically stable from a cardiac perspective as per cardiology. Echocardiogram shows EF 60-65% with mild concentric LVH. Plans: Orthopedic evaluation. Adequate pain control. Hold Eliquis. Nothing by mouth after midnight for possible surgery tomorrow. Fall precautions. Creatinine 3.4. Plans: Nephrology consulted to initiate hemodialysis. Repeat BMP tomorrow morning. [id number] glucose 158. Plans: Insulin sliding scale. Regular Accu-Cheks. Hypoglycemic precautions. Plans: Continue atenolol. Cardiology discontinued flecainide. Hold anticoagulation due to possible surgery tomorrow. Thank you for this consult. Please call with any additional questions or concerns.
[2020-05-26] MEDS: MIRTAZAPINE 15 MG TAB PO SCH (20:43)
[2020-05-26 20:49] LABS: Glucose,Whole Blood 173 mg/dL (75-99)
[2020-05-27] MEDS: HYDROcodone/APAP 5-325MG 1 EACH TAB PO PRN ×4 (01:21→21:26)
[2020-05-27] MEDS: LEVOTHYROXINE 100 MCG TAB PO SCH (06:12)
[2020-05-27] MEDS: SODIUM CHLORIDE 0.9% 1,000 ML IV SCH (06:12)
[2020-05-27 06:58] LABS: Glucose,Whole Blood 142 mg/dL (75-99)
[2020-05-27] MEDS: INSULIN ASPART (NovoLOG) 100 UNIT/ML VIAL SQ SCH ×4 (07:08→21:26)
--- NOTE | 2020-05-27 08:06 | P.PN ---
Subjective Progress Note Date: 05/27/20 Principal diagnosis: This 84-year-old female with ESRD on dialysis Friday is admitted after a fall and fracture of the left hip. She is scheduled for surgery today. She also complains of left ankle pain. Denies any chest pain fever chills cough shortness of breath He slept fine last night. While signs are stable. Other than the pain in her left hip and the left ankle she is denying any other complaints History of present illness: Patient is a 84-year-old female seen in renal consultation for end-stage renal disease. She is maintained on hemodialysis on Friday schedule. Patient states she was eating a tomato in her kitchen and subsequently fell. She denies hitting her head. She called her daughter and was brought to the hospital. she is noted to have an acute comminuted fracture of the left proximal humor and is scheduled for surgical intervention today. no fever or chills. No vomiting or diarrhea. No cough. No abdominal pain. No chest pain or shortness of breath. hemodynamically stable. Past Medical History Past Medical History: Atrial Fibrillation, Heart Failure, Diabetes Mellitus, Deep Vein Thrombosis (DVT), GERD/Reflux, Hyperlipidemia, Hypertension, Myocardial Infarction ([place]), Osteoarthritis (OA), Pulmonary Embolus (PE), Renal Disease, Rheumatoid Arthritis (RA), Sleep Apnea/CPAP/BIPAP, Thyroid Disorder Objective - Vital Signs Vital signs: Vital Signs Temp 98.4 F 05/27/20 00:40 Pulse 60 05/27/20 00:40 Resp 20 05/27/20 03:40 BP 119/63 05/27/20 00:40 Pulse Ox 93 L 05/27/20 00:40 Intake & Output 05/26/20 05/27/20 05/27/20 18:59 06:59 18:59 Intake Total 200 Output Total 1500 300 Balance -1500 -100 Intake: Oral 200 Output: Urine 300 Hemodialysis 1500 Other: Voiding Method Indwelling Catheter Indwelling Catheter Indwelling Catheter Vital signs are stable. General: The patient appeared well nourished and normally developed. HEENT: Head exam is unremarkable. Neck is without jugular venous distension. LUNGS: Breath sounds decreased. HEART: Rate and Rhythm are regular. ABDOMEN: soft, nontender. EXTREMITITES: No clubbing, cyanosis, or edema. Neurologically awake alert oriented able to move all her extremities - Labs CBC & Chem 7: 05/26/20 07:05 05/26/20 07:05 Labs: Abnormal Lab Results - Last 24 Hours (Table) 05/26/20 05/26/20 05/26/20 Range/Units 07:05 16:40 20:35 BUN 46.0 H (9.0-27.0) mg/dL Creatinine 3.4 H (0.6-1.5) mg/dL Est GFR (CKD-EPI)AfAm 13.5 L (60.0-200.0) Est GFR (CKD-EPI)NonAf 11.6 L (60.0-200.0) Glucose 159 H (70-110) mg/dL POC Glucose (mg/dL) 158 H 173 H (75-99) mg/dL Calcium 8.4 L (8.7-10.3) mg/dL Total Protein 5.4 L (6.2-8.2) g/dL Albumin 3.60 L (3.80-4.90) g/dL 05/27/20 Range/Units 06:56 BUN (9.0-27.0) mg/dL Creatinine (0.6-1.5) mg/dL Est GFR (CKD-EPI)AfAm (60.0-200.0) Est GFR (CKD-EPI)NonAf (60.0-200.0) Glucose (70-110) mg/dL POC Glucose (mg/dL) 142 H (75-99) mg/dL Calcium (8.7-10.3) mg/dL Total Protein (6.2-8.2) g/dL Albumin (3.80-4.90) g/dL Assessment and Plan Assessment: Impression 1. ESRD on dialysis with a permacath on the right chest. Dialyzed yesterday. She says her wrist dialysis earlier in October 2019 Her scheduled dialysis is Friday 2. Fall with fracture of the left hip for surgery today 3. Atrial fibrillation 4. Diabetes mellitus 5. History of DVT, pulmonary embolism 6. History of biventricular pacemaker. 7. History of sleep apnea on BiPAP. 8. Anemia hemoglobin is 10.1 at target Admission 1. Clear nephrologically to go through surgery. 2. Watch labs tomorrow. Including lites and CBC 3. Next dialysis Friday, we will try to use the fistula
[2020-05-27] MEDS: PANTOPRAZOLE 40 MG TABLET PO SCH (08:45)
[2020-05-27] MEDS: TORSEMIDE 20 MG TAB PO SCH (08:45)
[2020-05-27] MEDS: allopurinoL 100 MG TAB PO SCH (08:45)
[2020-05-27] MEDS: CALCIUM ACETATE 667 MG TAB PO SCH (08:45)
[2020-05-27] MEDS: ATORVASTATIN 10 MG TAB PO SCH (08:45)
[2020-05-27] MEDS: atenoloL 50 MG TAB PO SCH (08:48)
--- NOTE | 2020-05-27 08:48 | P.PN ---
Subjective Progress Note Date: 05/27/20 Principal diagnosis: Preoperative cardiac assessment This is a pleasant 84-year-old female patient with long-standing persistent atrial fibrillation as well as end-stage renal disease on hemodialysis as well as permanent pacemaker implantation was admitted to the hospital after she fell at home and developed left intertrochanteric fracture. She is in process of having surgery later on today. She underwent an echocardiogram which revealed normal left ventricular systolic function. Her oral anticoagulation is on hold at this point. She was seen this morning. She is asymptomatic from a cardiovascular standpoint of view. Hemodynamically she continues to be stable with oral anticoagulations continues to be on hold. She is going to undergo the surgery later on today. Objective - Vital Signs Vital signs: Vital Signs Temp 98.2 F 05/27/20 07:00 Pulse 67 05/27/20 07:00 Resp 19 05/27/20 07:00 BP 119/50 05/27/20 07:00 Pulse Ox 93 L 05/27/20 07:00 Intake & Output 05/26/20 05/27/20 05/27/20 18:59 06:59 18:59 Intake Total 200 Output Total 1500 300 Balance -1500 -100 Intake: Oral 200 Output: Urine 300 Hemodialysis 1500 Other: Voiding Method Indwelling Catheter Indwelling Catheter Indwelling Catheter - Constitutional General appearance: Present: no acute distress - Respiratory Respiratory: bilateral: CTA - Cardiovascular Rhythm: irregularly irregular Heart sounds: normal: S1, S2 - Labs CBC & Chem 7: 05/26/20 07:05 05/26/20 07:05 Labs: Abnormal Lab Results - Last 24 Hours (Table) 05/26/20 05/26/20 05/26/20 Range/Units 07:05 16:40 20:35 BUN 46.0 H (9.0-27.0) mg/dL Creatinine 3.4 H (0.6-1.5) mg/dL Est GFR (CKD-EPI)AfAm 13.5 L (60.0-200.0) Est GFR (CKD-EPI)NonAf 11.6 L (60.0-200.0) Glucose 159 H (70-110) mg/dL POC Glucose (mg/dL) 158 H 173 H (75-99) mg/dL Calcium 8.4 L (8.7-10.3) mg/dL Total Protein 5.4 L (6.2-8.2) g/dL Albumin 3.60 L (3.80-4.90) g/dL 05/27/20 Range/Units 06:56 BUN (9.0-27.0) mg/dL Creatinine (0.6-1.5) mg/dL Est GFR (CKD-EPI)AfAm (60.0-200.0) Est GFR (CKD-EPI)NonAf (60.0-200.0) Glucose (70-110) mg/dL POC Glucose (mg/dL) 142 H (75-99) mg/dL Calcium (8.7-10.3) mg/dL Total Protein (6.2-8.2) g/dL Albumin (3.80-4.90) g/dL Assessment and Plan Assessment: Assessment #1 status post fall and Status post intertrochanteric fracture #2 permanent pacemaker implantation #3 long-standing persistent atrial fibrillation was controlled heart rate #4 multiple comorbid conditions Plan #1 continue the current medical regimen #2 proceed with the surgery #3 presume as soon as possible and safe after the surgery
[2020-05-27] MEDS ORDERED: MIDAZOLAM 2 MG/2 ML VIAL ONE (09:52)
[2020-05-27] MEDS ORDERED: fentaNYL (PF) 50 MCG/ML 2 ML AMP ONE (09:52)
[2020-05-27] MEDS ORDERED: KETAMINE 10 MG/ML 20 ML VIAL ONE (09:52)
[2020-05-27] MEDS ORDERED: SODIUM CHLORIDE 0.9% 1,000 ML IV ONE (09:56)
[2020-05-27] MEDS ORDERED: ceFAZolin 1,000 MG in SODIUM CHLORIDE 0.9% 1,000 ML IRRIGATION ONE (10:38)
--- NOTE | 2020-05-27 11:08 | FL ---
EXAMINATION TYPE: FL guidance operating room, XR Hip Limited LT DATE OF EXAM: 05/27/2020 CLINICAL HISTORY: Left hip fracture. TECHNIQUE: Fluoroscopy. Limited intraoperative views left hip. COMPARISON: CT left hip 2 days ago. FINDINGS: Fluoroscopic guidance was provided during open reduction internal fixation procedure perfo rmed by Dr. Dudley. A total of 44 seconds of fluoroscopic time was utilized during the procedure and 2 spot intraoperative images are acquired. Intraoperative images obtained show placement of intramedullary william with distal transverse fixating s crew in larger proximal femoral neck fixating screws through the intertrochanteric fracture left prox imal femur. Satisfactory alignment is seen on frontal intraoperative projection obtained. Some underp enetration near the hip joint noted. IMPRESSION: As Above.
[2020-05-27 11:23] LABS: Glucose,Whole Blood 153 mg/dL (75-99)
[2020-05-27 11:35] LABS: Glucose,Whole Blood 75 mg/dL (75-99)
--- NOTE | 2020-05-27 11:54 | OP ---
OPERATIVE REPORT DATE OF PROCEDURE: 05/27/2020 PREOPERATIVE DIAGNOSIS: Left intertrochanteric hip fracture. POSTOPERATIVE DIAGNOSIS: Left intertrochanteric hip fracture. PROCEDURE PERFORMED: Left intramedullary hip screw fixation for a left intertrochanteric hip fracture. SURGEON: Isaiah Dudley M.D. ANESTHESIA: Spinal with sedation. ESTIMATED BLOOD LOSS: 100 mL. TOURNIQUET: None. DRAINS: None. COMPLICATIONS: None apparent. DISPOSITION: Postanesthesia care unit. INDICATIONS: Yamilet is a very pleasant 84-year-old female. She fell off a stool at her home a day and a half ago. She presented to [facility], where workup including x-rays and a CT scan revealed a nondisplaced fracture of the intertrochanteric region of her left hip. She was admitted to the medical service due to her multiple medical comorbidities. This surgery had to be delayed. She underwent dialysis yesterday. She was then cleared for surgery and we proceeded today. The risks of procedure were discussed in detail. These risks include, but are not limited to risk of infection, nerve damage, bleeding, pain, and a small risk of deep vein thrombosis which could lead to fatal pulmonary embolism. Further risks include failure for the fracture to heal and failure of the hardware. All of her questions with regard to the risks of procedure were answered to her satisfaction. Appropriate informed consent was obtained. DESCRIPTION OF PROCEDURE: Patient was identified in preop holding area. Surgical site was marked by both the patient and myself. She was given 2 g of Ancef IV for prophylactic purposes. She was then transported to the operative suite. She was placed supine on the operative table. Spinal anesthetic was then administered, dosed per Anesthesia without apparent complication. She was then transferred to the fracture table. She was then placed onto the fracture table well-padded in preparation for surgery. The fluoroscopy was then brought in. The fracture was reduced anatomically and this was confirmed with fluoroscopy prior to proceeding. The left lower extremity was then prepped and draped in the usual sterile fashion. Standard surgical pause was undertaken to ensure that we were operating on the correct site and that appropriate preop antibiotics were given. All staff in room were in agreement and we proceeded. The tip of the greater trochanter was identified via fluoroscopy. An approximate 3 cm incision extending from the tip of the greater trochanter proximally was then made. The incision was then taken down sharply to the tensor fascia. The tensor fascia was then incised in line with the incision. This gave me excellent exposure to the greater trochanter. The awl was then placed on the medial tip of the greater trochanter and the threaded guide pin was then advanced down from the medial tip of the greater trochanter down the center of the femoral canal. Again this was confirmed with fluoroscopic imaging. The starting drill was then utilized to open the proximal femur to the level of the lesser trochanter. The threaded guide pin was then removed and a ball-tipped guidewire was then advanced down the femoral canal. Again, its placement was confirmed with fluoroscopic imaging. I then reamed the femoral canal starting with a 9 mm reamer and increasing up to a 13 mm reamer to accept the gamma nail. I then had the traveling sales representative open a Perpetuall Gamma nail. It was 180 mm x 11 mm x 125 degrees. It was assembled on the back table by the surgical supply assistant. It was then inserted over the ball-tipped guidewire. The ball-tipped guidewire was removed. I then proceeded with placement of the hip screw. A second small incision was then made on the lateral thigh. The threaded guide pin was then advanced through the nail and into the center of the femoral head on both AP and lateral views. The tip-apex distance was appropriate. I then measured and it measured 90 mm. The over reamer was then set to 90 mm and advanced over the threaded guide pin under fluoroscopic imaging. I then had the traveling sales representative open a 90 mm partially-threaded cannulated hip screw. This was inserted over the threaded guide pin deep into the center of the femoral head. The tip-apex distance was appropriate. The screw had excellent purchase in the bone of the femoral head. The set screw was then tightened down fully and then backed off 1/4 turn to allow for compression at the fracture site. I then proceeded with placement of the distal locking screw. A third small incision was made on the lateral thigh. A 5 mm x 40 mm locking screw was then placed through the static hole in the distal nail. Again, its placement was confirmed with fluoroscopic imaging. At this point in time, no further work was deemed necessary. Final AP and lateral views were taken. The nail was within the femoral canal. The distal locking screws was of appropriate length and through the nail. The hip screw was placed deep into the center of the femoral head on both AP and lateral views. The tip-apex distance was appropriate. At this point time, no further work was deemed necessary. The jig was removed and the wounds were thoroughly irrigated with sterile saline solution with antibiotic added. The tensor fascia was then closed with 0 Vicryl interrupted suture. Subcutaneous tissue closed with 2-0 Vicryl interrupted suture and the skin was closed with stainless steel harmeet. A sterile compressive dressing was then applied. All sponge and needle counts were deemed correct prior to closure. The patient tolerated procedure without apparent complication. She was transferred to the recovery room in stable conditions. MMODL / IJN: [id number] /
--- NOTE | 2020-05-27 12:19 | P.PN ---
Subjective Progress Note Date: 05/27/20 Patient was seen and examined. No acute events overnight. Underwent left intramedullary hip screw fixation for left intertrochanteric hip fracture. She was seen and examined after her procedure. She reports well-controlled pain in her left hip. She denies any chest pain, shortness breath or palpitations. No nausea or vomiting. No fever or chills. Objective - Vital Signs Vital signs: Vital Signs Temp 97.0 F L 05/27/20 11:00 Pulse 63 05/27/20 11:15 Resp 18 05/27/20 11:15 BP 133/59 05/27/20 11:15 Pulse Ox 95 05/27/20 11:15 Intake & Output 05/26/20 05/27/20 05/27/20 18:59 06:59 18:59 Intake Total 200 251.5 Output Total 1500 300 400 Balance -1500 -100 -148.5 Intake: IV 101.5 Intake, IV Titration 150 Amount Sodium Chloride 0.9% 1, 150 000 ml @ 50 mls/hr IV . Q20H [facility] Rx#:[id number] Oral 200 Output: Urine 300 300 Hemodialysis 1500 Estimated Blood Loss 100 Other: Voiding Method Indwelling Catheter Indwelling Catheter Indwelling Catheter - Exam General: [non toxic], [no distress], [appears at stated age] Derm: [warm], [dry] Head: [atraumatic], [normocephalic], [symmetric] Eyes: [EOMI], [no lid lag], [anicteric sclera] Mouth: [no lip lesion], [mucus membranes moist] Cardiovascular: [S1S2 reg], [no murmur], [positive DP pulse bilateral], Lungs: [CTA bilateral], [no rhonchi, no rales] , [no accessory muscle use] Abdominal: [soft], [ nontender to palpation], [no guarding], [no appreciable organomegaly] Ext: [no gross muscle atrophy], [no edema], [no contractures], tenderness to palpation left lateral hip with restricted range of motion due to pain, right upper extremity fistula Neuro: [no focal neuro deficits], decreased sensation in the left toes to touch Psych: [Alert], [oriented], [appropriate affect] - Labs CBC & Chem 7: 05/26/20 07:05 05/26/20 07:05 Labs: Abnormal Lab Results - Last 24 Hours (Table) 05/26/20 05/26/20 05/27/20 Range/Units 16:40 20:35 06:56 POC Glucose (mg/dL) 158 H 173 H 142 H (75-99) mg/dL 05/27/20 Range/Units 11:21 POC Glucose (mg/dL) 153 H (75-99) mg/dL Assessment and Plan Assessment: Left proximal femoral fracture ESRD on hemodialysis Diabetes mellitus Atrial fibrillation Chronic conditions: Hypothyroidism, atrial fibrillation, history of CHF, CAD, dyslipidemia, GERD, hypertension As seen on CT hip. Nephrology cleared the patient for surgery. Patient is clinically stable from a cardiac perspective as per cardiology. Echocardiogram shows EF 60-65% with mild concentric LVH. POD 0. Plans: Orthopedic surgery on board. Adequate pain control. Hold Eliquis and resume when okay by orthopedic surgery. Restart diet. Fall precautions. Follow PT and OT recommendations. Fall precaution. Creatinine 3.4. Plans: Nephrology consulted to initiate hemodialysis. Repeat BMP tomorrow morning. [id number] glucose 75. Plans: Insulin sliding scale. Regular Accu-Cheks. Hypoglycemic precautions. Plans: Continue atenolol. Cardiology discontinued flecainide. Hold anticoagulation due to surgery.
[2020-05-27] MEDS: MORPHINE SULFATE 2 MG/ML SYRINGE IVP PRN (13:10)
[2020-05-27 16:36] LABS: Glucose,Whole Blood 160 mg/dL (75-99)
[2020-05-27 20:31] LABS: Glucose,Whole Blood 182 mg/dL (75-99)
[2020-05-27] MEDS: MIRTAZAPINE 15 MG TAB PO SCH (21:26)
[2020-05-27] MEDS: HEPARIN SODIUM,PORCINE 5,000 UNIT/ML 1 ML VIAL SQ SCH (21:26)
[2020-05-28] MEDS: SODIUM CHLORIDE 0.9% 1,000 ML IV SCH ×2 (05:58→09:00)
[2020-05-28] MEDS: LEVOTHYROXINE 100 MCG TAB PO SCH (05:58)
[2020-05-28 06:49] LABS: Basophils % (A) 0 %; Eosinophils # (A) 0.1 k/uL (0-0.7); Eosinophils % (A) 1 %; HCT 28.8 % (34.0-46.0); HGB 9.2 gm/dL (11.4-16.0); Lymphocytes # (A) 1.1 k/uL (1.0-4.8); Lymphocytes % (A) 18 %; MCH 34.3 pg (25.0-35.0); MCV 106.9 fL (80.0-100.0); Macrocytosis Moderate; Mean Platelet Volume 8.1; Monocytes # (A) 0.4 k/uL (0-1.0); Monocytes % (A) 7 %; Neutrophils # (A) 4.5 k/uL (1.3-7.7); Neutrophils % (A) 73 %; Platelet Count 126 k/uL (150-450); RBC 2.69 m/uL (3.80-5.40); RDW 14.5 % (11.5-15.5); WBC 6.2 k/uL (3.8-10.6)
[2020-05-28 07:25] LABS: Glucose,Whole Blood 153 mg/dL (75-99)
--- NOTE | 2020-05-28 08:51 | P.PN ---
Subjective Progress Note Date: 05/28/20 Principal diagnosis: This 84-year-old female with ESRD on dialysis Friday is admitted after a fall and fracture of the left hip. She Underwent left intramedullary hip screw fixation for left intertrochanteric hip fracture yesterday 05/27/20. She is stable, she is stable postop.. Denies any chest pain fever chills cough shortness of breath History of present illness: Patient is a 84-year-old female seen in renal consultation for end-stage renal disease. She is maintained on hemodialysis on Friday schedule. Patient states she was eating a tomato in her kitchen and subsequently fell. She denies hitting her head. She called her daughter and was brought to the hospital. she is noted to have an acute comminuted fracture of the left proximal humor and is scheduled for surgical intervention today. no fever or chills. No vomiting or diarrhea. No cough. No abdominal pain. No chest pain or shortness of breath. hemodynamically stable. Past Medical History Past Medical History: Atrial Fibrillation, Heart Failure, Diabetes Mellitus, Deep Vein Thrombosis (DVT), GERD/Reflux, Hyperlipidemia, Hypertension, Myocardial Infarction (TN), Osteoarthritis (OA), Pulmonary Embolus (PE), Renal Disease, Rheumatoid Arthritis (RA), Sleep Apnea/CPAP/BIPAP, Thyroid Disorder Objective - Vital Signs Vital signs: Vital Signs Temp 97.5 F L 05/28/20 00:46 Pulse 66 05/28/20 00:46 Resp 15 05/28/20 00:46 BP 131/47 05/28/20 00:46 Pulse Ox 94 L 05/28/20 00:46 Intake & Output 05/27/20 05/28/20 05/28/20 18:59 06:59 18:59 Intake Total 251.5 400 Output Total 500 300 Balance -248.5 100 Intake: IV 101.5 Intake, IV Titration 150 400 Amount Sodium Chloride 0.9% 1, 150 400 000 ml @ 50 mls/hr IV . Q20H [facility] Rx#:[id number] Output: Urine 400 300 Estimated Blood Loss 100 Other: Voiding Method Indwelling Catheter Indwelling Catheter On examination she is awake alert oriented 3 HEENT exam no JVP neck is supple no facial asymmetry Lungs clear to auscultation good air entry bilaterally heart sounds are unremarkable normal sinus rhythm Abdomen soft nontender Extremity exam reveals trace edema Neurologically awake alert oriented - Labs CBC & Chem 7: 05/28/20 05:52 05/26/20 07:05 Labs: Abnormal Lab Results - Last 24 Hours (Table) 05/27/20 05/27/20 05/27/20 Range/Units 11:21 16:34 20:29 RBC (3.80-5.40) m/uL Hgb (11.4-16.0) gm/dL Hct (34.0-46.0) % MCV (80.0-100.0) fL Plt Count (150-450) k/uL POC Glucose (mg/dL) 153 H 160 H 182 H (75-99) mg/dL 05/28/20 05/28/20 Range/Units 05:52 06:59 RBC 2.69 L (3.80-5.40) m/uL Hgb 9.2 L (11.4-16.0) gm/dL Hct 28.8 L (34.0-46.0) % MCV 106.9 H (80.0-100.0) fL Plt Count 126 L (150-450) k/uL POC Glucose (mg/dL) 153 H (75-99) mg/dL Assessment and Plan Assessment: Impression 1. ESRD on dialysis with a permacath on the right chest. On dialysis since October 2019 Her scheduled dialysis is Friday 2. Fall with fracture of the left hip Underwent left intramedullary hip screw fixation for left intertrochanteric hip fracture 05/27/2020. 3. Atrial fibrillation seems to be normal sinus rhythm 4. Diabetes mellitus 5. History of DVT, pulmonary embolism 6. History of biventricular pacemaker. 7. History of sleep apnea on BiPAP. Currently on room air 8. Anemia hemoglobin is 10.1 at target. 9. Anemia hemoglobin went down from 11.42 days ago to 9.2 t Admission 1. Watch hemoglobin. 2. Will be dialyzed tomorrow with the ultrafiltration goal of 2.5 liters over 3-1/2 hours. 3. Start darbepoetin 40 g every week 4. Iron sat
[2020-05-28] MEDS: HYDROcodone/APAP 5-325MG 1 EACH TAB PO PRN ×3 (09:21→21:19)
[2020-05-28] MEDS: CALCIUM ACETATE 667 MG TAB PO SCH (09:22)
[2020-05-28] MEDS: atenoloL 50 MG TAB PO SCH (09:22)
[2020-05-28] MEDS: ATORVASTATIN 10 MG TAB PO SCH (09:22)
[2020-05-28] MEDS: PANTOPRAZOLE 40 MG TABLET PO SCH (09:22)
[2020-05-28] MEDS: allopurinoL 100 MG TAB PO SCH (09:22)
[2020-05-28] MEDS: TORSEMIDE 20 MG TAB PO SCH (09:23)
[2020-05-28] MEDS: INSULIN ASPART (NovoLOG) 100 UNIT/ML VIAL SQ SCH ×4 (09:23→21:20)
[2020-05-28] MEDS: HEPARIN SODIUM,PORCINE 5,000 UNIT/ML 1 ML VIAL SQ SCH (09:23)
[2020-05-28 09:41] LABS: African American GFR (CKD) 12.6 (60.0-200.0); Anion Gap 10.4 mmol/L (4.00-12.00); BUN/Creat Ratio 13.06 Ratio (12.00-20.00); Calcium 8.5 mg/dL (8.7-10.3); Carbon Dioxide 21.6 mmol/L (21.6-31.8); Non-African American GFR(CKD) 10.8 (60.0-200.0)
--- NOTE | 2020-05-28 10:13 | P.PN ---
Subjective Progress Note Date: 05/28/20 Principal diagnosis: Intertrochanteric fracture left hip. Status post close reduction with insertion of intertrochanteric nail left hip. Multiple medical comorbidities. This patient is an 84-year-old female with past medical history of diabetes, ESRD currently on hemodialysis, CHF, atrial fibrillation currently on Eliquis that presented to [facility] ED on 05/25/20 with complaints of left hip pain following a ground level fall. The patient states she was getting up from her chair and her knee gave out, causing her to fall into the left hip. She experienced immediate pain and was unable to get off the ground. EMS was called, and the patient was transported to [facility] ED. CT scan of the left hip revealed an intertrochanteric hip fracture. Patient was admitted under the care of Dr. Sanchez for surgical intervention, with consults placed to internal medicine, cardiology, and nephrology. At the time of my exam, the patient is complaining of isolated left hip pain. She notes mild pain in the left upper extremity, although it is improved from yesterday and she is able to move her shoulder, elbow, wrist without pain. Patient notes she ambulates with a walker at baseline for the past 3-4 years. She denies chest pain, shortness of breath, nausea, vomiting, fevers, chills, numbness or tingling of the left lower extremity. Vital signs stable. 05/28/2020: The patient is postop day #1 status post close reduction and insertion of intertrochanteric nail of the left hip. She is stable from an orthopedic standpoint. She has no new complaints or concerns today. Vital signs are stable. Objective - Vital Signs Vital signs: Vital Signs Temp 97.5 F L 05/28/20 00:46 Pulse 63 05/28/20 07:00 Resp 18 05/28/20 07:00 BP 137/71 05/28/20 07:00 Pulse Ox 93 L 05/28/20 07:00 Intake & Output 05/27/20 05/28/20 05/28/20 18:59 06:59 18:59 Intake Total 251.5 400 Output Total 500 300 Balance -248.5 100 Intake: IV 101.5 Intake, IV Titration 150 400 Amount Sodium Chloride 0.9% 1, 150 400 000 ml @ 50 mls/hr IV . Q20H [facility] Rx#:[id number] Output: Urine 400 300 Estimated Blood Loss 100 Other: Voiding Method Indwelling Catheter Indwelling Catheter Indwelling Catheter - Exam This is a pleasant 84-year-old female in no acute distress. She is hearing impaired and has lost her hearing aid through the night in bed. Exam of the left hip reveals that her dressing is clean, dry and intact. She has full foot and ankle motion without difficulty or pain. Pedal pulse +2/4. Neurovascular status to the lower extremity is intact. - Labs CBC & Chem 7: 05/28/20 05:52 05/28/20 05:52 Labs: Abnormal Lab Results - Last 24 Hours (Table) 05/27/20 05/27/20 05/27/20 Range/Units 11:21 16:34 20:29 RBC (3.80-5.40) m/uL Hgb (11.4-16.0) gm/dL Hct (34.0-46.0) % MCV (80.0-100.0) fL Plt Count (150-450) k/uL BUN (9.0-27.0) mg/dL Creatinine (0.6-1.5) mg/dL Est GFR (CKD-EPI)AfAm (60.0-200.0) Est GFR (CKD-EPI)NonAf (60.0-200.0) Glucose (70-110) mg/dL POC Glucose (mg/dL) 153 H 160 H 182 H (75-99) mg/dL Calcium (8.7-10.3) mg/dL 05/28/20 05/28/20 05/28/20 Range/Units 05:52 05:52 06:59 RBC 2.69 L (3.80-5.40) m/uL Hgb 9.2 L (11.4-16.0) gm/dL Hct 28.8 L (34.0-46.0) % MCV 106.9 H (80.0-100.0) fL Plt Count 126 L (150-450) k/uL BUN 47.0 H (9.0-27.0) mg/dL Creatinine 3.6 H (0.6-1.5) mg/dL Est GFR (CKD-EPI)AfAm 12.6 L (60.0-200.0) Est GFR (CKD-EPI)NonAf 10.8 L (60.0-200.0) Glucose 153 H (70-110) mg/dL POC Glucose (mg/dL) 153 H (75-99) mg/dL Calcium 8.5 L (8.7-10.3) mg/dL Assessment and Plan (1) Intertrochanteric fracture of left hip Current Visit: Yes Status: Acute Code(s): S72.142A - DISPLACED INTERTROCHANTERIC FRACTURE OF LEFT FEMUR, INIT SNOMED Code(s): 024502370 (2) Status post-operative repair of closed fracture of left hip Current Visit: Yes Status: Acute Code(s): Z98.890 - OTHER SPECIFIED POSTPROCEDURAL STATES; Z87.81 - PERSONAL HISTORY OF (HEALED) TRAUMATIC FRACTURE SNOMED Code(s): 507312307 (3) CKD (chronic kidney disease) Current Visit: Yes Status: Acute Code(s): N18.9 - CHRONIC KIDNEY DISEASE, UNSPECIFIED SNOMED Code(s): 796642282 (4) Fall Current Visit: Yes Status: Acute Code(s): W19.XXXA - UNSPECIFIED FALL, INITIAL ENCOUNTER SNOMED Code(s): 5915608 (5) Diabetes mellitus Current Visit: No Status: Acute Code(s): E11.9 - TYPE 2 DIABETES MELLITUS WITHOUT COMPLICATIONS SNOMED Code(s): 11358928 Plan: The clinical findings are discussed with the patient and nursing staff. She may get up with physical therapy today. She will most likely will require inpatient rehab. Continue care.
--- NOTE | 2020-05-28 10:14 | P.PN ---
Subjective Progress Note Date: 05/28/20 Principal diagnosis: Preoperative cardiac assessment This is a pleasant 84-year-old female patient with long-standing persistent atrial fibrillation as well as end-stage renal disease on hemodialysis as well as permanent pacemaker implantation was admitted to the hospital after she fell at home and developed left intertrochanteric fracture. She is in process of having surgery later on today. She underwent an echocardiogram which revealed normal left ventricular systolic function. Her oral anticoagulation is on hold at this point. The patient was seen today 05/28/2020. She underwent surgery yesterday and was uneventful. She is hemodynamically stable. I am going to continue the current medical regimen and start the patient back on oral anticoagulation with Eliquis. We will follow-up with the patient on when necessary case Objective - Vital Signs Vital signs: Vital Signs Temp 97.5 F L 05/28/20 00:46 Pulse 63 05/28/20 07:00 Resp 18 05/28/20 07:00 BP 137/71 05/28/20 07:00 Pulse Ox 93 L 05/28/20 07:00 Intake & Output 05/27/20 05/28/20 05/28/20 18:59 06:59 18:59 Intake Total 251.5 400 Output Total 500 300 Balance -248.5 100 Intake: IV 101.5 Intake, IV Titration 150 400 Amount Sodium Chloride 0.9% 1, 150 400 000 ml @ 50 mls/hr IV . Q20H [facility] Rx#:[id number] Output: Urine 400 300 Estimated Blood Loss 100 Other: Voiding Method Indwelling Catheter Indwelling Catheter Indwelling Catheter - Constitutional General appearance: Present: no acute distress - Respiratory Respiratory: bilateral: diminished - Cardiovascular Heart sounds: normal: S1, S2 - Labs CBC & Chem 7: 05/28/20 05:52 05/28/20 05:52 Labs: Abnormal Lab Results - Last 24 Hours (Table) 05/27/20 05/27/20 05/27/20 Range/Units 11:21 16:34 20:29 RBC (3.80-5.40) m/uL Hgb (11.4-16.0) gm/dL Hct (34.0-46.0) % MCV (80.0-100.0) fL Plt Count (150-450) k/uL BUN (9.0-27.0) mg/dL Creatinine (0.6-1.5) mg/dL Est GFR (CKD-EPI)AfAm (60.0-200.0) Est GFR (CKD-EPI)NonAf (60.0-200.0) Glucose (70-110) mg/dL POC Glucose (mg/dL) 153 H 160 H 182 H (75-99) mg/dL Calcium (8.7-10.3) mg/dL 05/28/20 05/28/20 05/28/20 Range/Units 05:52 05:52 06:59 RBC 2.69 L (3.80-5.40) m/uL Hgb 9.2 L (11.4-16.0) gm/dL Hct 28.8 L (34.0-46.0) % MCV 106.9 H (80.0-100.0) fL Plt Count 126 L (150-450) k/uL BUN 47.0 H (9.0-27.0) mg/dL Creatinine 3.6 H (0.6-1.5) mg/dL Est GFR (CKD-EPI)AfAm 12.6 L (60.0-200.0) Est GFR (CKD-EPI)NonAf 10.8 L (60.0-200.0) Glucose 153 H (70-110) mg/dL POC Glucose (mg/dL) 153 H (75-99) mg/dL Calcium 8.5 L (8.7-10.3) mg/dL Assessment and Plan Assessment: Assessment #1 status post fall and Status post intertrochanteric fracture and status post surgery #2 permanent pacemaker implantation #3 long-standing persistent atrial fibrillation was controlled heart rate #4 multiple comorbid conditions Plan #1 continue the current medical regimen #2 start the patient on oral anticoagulation #3 follow-up with the patient on when necessary case
[2020-05-28 11:47] LABS: Glucose,Whole Blood 133 mg/dL (75-99)
[2020-05-28] MEDS ORDERED: DARBEPOETIN ALFA 40 MCG/0.4 ML SYRINGE SQ SCH (12:00)
--- NOTE | 2020-05-28 12:59 | P.PN ---
Subjective Progress Note Date: 05/28/20 Patient was seen and examined. No acute events overnight. Underwent left intramedullary hip screw fixation for left intertrochanteric hip fracture POD 1. She reports worsening pain in her left hip. She denies any chest pain, shortness breath or palpitations. No nausea or vomiting. No fever or chills. Objective - Vital Signs Vital signs: Vital Signs Temp 97.5 F L 05/28/20 00:46 Pulse 63 05/28/20 07:00 Resp 18 05/28/20 07:00 BP 137/71 05/28/20 07:00 Pulse Ox 93 L 05/28/20 07:00 Intake & Output 05/27/20 05/28/20 05/28/20 18:59 06:59 18:59 Intake Total 251.5 400 Output Total 500 300 Balance -248.5 100 Intake: IV 101.5 Intake, IV Titration 150 400 Amount Sodium Chloride 0.9% 1, 150 400 000 ml @ 50 mls/hr IV . Q20H [facility] Rx#:[id number] Output: Urine 400 300 Estimated Blood Loss 100 Other: Voiding Method Indwelling Catheter Indwelling Catheter Indwelling Catheter - Exam General: [non toxic], [no distress], [appears at stated age] Derm: [warm], [dry] Head: [atraumatic], [normocephalic], [symmetric] Eyes: [EOMI], [no lid lag], [anicteric sclera] Mouth: [no lip lesion], [mucus membranes moist] Cardiovascular: [S1S2 reg], [no murmur], [positive DP pulse bilateral], Lungs: [CTA bilateral], [no rhonchi, no rales] , [no accessory muscle use] Abdominal: [soft], [ nontender to palpation], [no guarding], [no appreciable organomegaly] Ext: [no gross muscle atrophy], [no edema], [no contractures], tenderness to palpation left lateral hip with restricted range of motion due to pain, right upper extremity fistula Neuro: [no focal neuro deficits], decreased sensation in the left toes to touch Psych: [Alert], [oriented], [appropriate affect] - Labs CBC & Chem 7: 05/28/20 05:52 05/28/20 05:52 Labs: Abnormal Lab Results - Last 24 Hours (Table) 05/27/20 05/27/20 05/28/20 Range/Units 16:34 20:29 05:52 RBC (3.80-5.40) m/uL Hgb (11.4-16.0) gm/dL Hct (34.0-46.0) % MCV (80.0-100.0) fL Plt Count (150-450) k/uL BUN 47.0 H (9.0-27.0) mg/dL Creatinine 3.6 H (0.6-1.5) mg/dL Est GFR (CKD-EPI)AfAm 12.6 L (60.0-200.0) Est GFR (CKD-EPI)NonAf 10.8 L (60.0-200.0) Glucose 153 H (70-110) mg/dL POC Glucose (mg/dL) 160 H 182 H (75-99) mg/dL Calcium 8.5 L (8.7-10.3) mg/dL 05/28/20 05/28/20 05/28/20 Range/Units 05:52 06:59 11:19 RBC 2.69 L (3.80-5.40) m/uL Hgb 9.2 L (11.4-16.0) gm/dL Hct 28.8 L (34.0-46.0) % MCV 106.9 H (80.0-100.0) fL Plt Count 126 L (150-450) k/uL BUN (9.0-27.0) mg/dL Creatinine (0.6-1.5) mg/dL Est GFR (CKD-EPI)AfAm (60.0-200.0) Est GFR (CKD-EPI)NonAf (60.0-200.0) Glucose (70-110) mg/dL POC Glucose (mg/dL) 153 H 133 H (75-99) mg/dL Calcium (8.7-10.3) mg/dL Assessment and Plan Assessment: Left proximal femoral fracture ESRD on hemodialysis Diabetes mellitus Atrial fibrillation Chronic conditions: Hypothyroidism, atrial fibrillation, history of CHF, CAD, dyslipidemia, GERD, hypertension As seen on CT hip. Nephrology cleared the patient for surgery. Patient is clinically stable from a cardiac perspective as per cardiology. Echocardiogram shows EF 60-65% with mild concentric LVH. POD 1. Plans: Orthopedic surgery on board. Adequate pain control. Hold Eliquis and resume when okay by orthopedic surgery. Restart diet. Fall precautions. Follow PT and OT recommendations. Fall precaution Creatinine 1.99. Plans: Nephrology consulted to initiate hemodialysis. Repeat BMP tomorrow morning. [id number] glucose 195. Plans: Insulin sliding scale. Regular Accu-Cheks. Hypoglycemic precautions. Plans: Continue atenolol. Cardiology discontinued flecainide. Restart anticoagulation when okay with orthopedic surgery. [Patient needs better pain control. Working with PT and OT. She is pending clinical improvement. Likely DC in 1-2 days.]
[2020-05-28 16:42] LABS: Glucose,Whole Blood 162 mg/dL (75-99)
[2020-05-28 20:00] LABS: Hemoglobin A1C 5.4 % (4.0-6.0)
[2020-05-28 20:26] LABS: Glucose,Whole Blood 186 mg/dL (75-99)
[2020-05-28] MEDS: MIRTAZAPINE 15 MG TAB PO SCH (21:19)
[2020-05-28] MEDS: APIXABAN 2.5 MG TABLET PO SCH (21:20)
[2020-05-29] MEDS: HYDROcodone/APAP 5-325MG 1 EACH TAB PO PRN ×2 (04:00→07:47)
[2020-05-29] MEDS: LEVOTHYROXINE 100 MCG TAB PO SCH (06:01)
[2020-05-29 06:43] LABS: HCT 27.8 % (34.0-46.0); HGB 9.3 gm/dL (11.4-16.0); MCH 35.6 pg (25.0-35.0); MCHC 33.3 g/dL (31.0-37.0); MCV 106.8 fL (80.0-100.0); Macrocytosis Moderate; Platelet Count 140 k/uL (150-450); RDW 15.2 % (11.5-15.5); WBC 6.8 k/uL (3.8-10.6)
[2020-05-29 06:50] LABS: Glucose,Whole Blood 160 mg/dL (75-99)
[2020-05-29] MEDS: TORSEMIDE 20 MG TAB PO SCH ×2 (07:47→17:33)
[2020-05-29] MEDS: INSULIN ASPART (NovoLOG) 100 UNIT/ML VIAL SQ SCH ×4 (07:47→21:29)
[2020-05-29] MEDS: ATORVASTATIN 10 MG TAB PO SCH (07:48)
[2020-05-29] MEDS: PANTOPRAZOLE 40 MG TABLET PO SCH (07:48)
[2020-05-29] MEDS: allopurinoL 100 MG TAB PO SCH (07:48)
[2020-05-29] MEDS: CALCIUM ACETATE 667 MG TAB PO SCH (07:48)
[2020-05-29] MEDS: APIXABAN 2.5 MG TABLET PO SCH ×2 (07:49→21:29)
[2020-05-29 09:11] LABS: % Iron Saturation 11.93 (12.00-45.00)
[2020-05-29 09:30] LABS: Anion Gap 10.2 mmol/L (4.00-12.00); Calcium 8.4 mg/dL (8.7-10.3); Carbon Dioxide 20.8 mmol/L (21.6-31.8); Non-African American GFR(CKD) 11.2 (60.0-200.0); Potassium 4.9 mmol/L (3.5-5.5)
[2020-05-29] MEDS: MORPHINE SULFATE 2 MG/ML SYRINGE IVP PRN (10:02)
[2020-05-29] MEDS ORDERED: HYDROcodone/APAP 10-325MG 1 EACH TAB PO PRN (10:30)
[2020-05-29] MEDS ORDERED: HYDROmorphone 0.5 MG/0.5 ML SYRINGE IVP PRN ×3 (10:31)
[2020-05-29] MEDS: atenoloL 50 MG TAB PO SCH (10:34)
[2020-05-29] MEDS: traMADol 50 MG TAB PO PRN ×2 (10:56→17:32)
[2020-05-29 11:14] LABS: Glucose,Whole Blood 104 mg/dL (75-99)
--- NOTE | 2020-05-29 12:01 | P.PN ---
Subjective Progress Note Date: 05/29/20 Principal diagnosis: Left IT fracture The patient is postop day #2 status post close reduction and insertion of intertrochanteric nail of the left hip. She is stable from an orthopedic standpoint. She has pain at the surgical site. She has no new complaints or concerns today. Vital signs are stable. Objective - Vital Signs Vital signs: Vital Signs Temp 97.2 F L 05/29/20 07:00 Pulse 61 05/29/20 07:00 Resp 17 05/29/20 07:00 BP 145/61 05/29/20 07:00 Pulse Ox 98 05/29/20 07:00 Intake & Output 05/28/20 05/29/20 05/29/20 18:59 06:59 18:59 Intake Total 480 160 Output Total 400 500 Balance 80 -340 Intake: Intake, IV Titration 160 160 Amount Sodium Chloride 0.9% 1, 160 160 000 ml @ 20 mls/hr IV . Q24H [facility] Rx#:[id number] Oral 320 Output: Urine 400 500 Other: Voiding Method Indwelling Catheter Indwelling Catheter Indwelling Catheter # Bowel Movements 1 - Exam Exam of the left hip reveals that her dressing is clean, dry and intact. She has full foot and ankle motion without difficulty or pain. Pedal pulse +2/4. Neurovascular status to the lower extremity is intact. - Constitutional General appearance: Present: no acute distress - Labs CBC & Chem 7: 05/29/20 06:20 05/29/20 06:20 Labs: Abnormal Lab Results - Last 24 Hours (Table) 05/28/20 05/28/20 05/29/20 Range/Units 16:32 20:21 06:20 RBC (3.80-5.40) m/uL Hgb (11.4-16.0) gm/dL Hct (34.0-46.0) % MCV (80.0-100.0) fL MCH (25.0-35.0) pg Plt Count (150-450) k/uL Carbon Dioxide (21.6-31.8) mmol/L BUN (9.0-27.0) mg/dL Creatinine (0.6-1.5) mg/dL Est GFR (CKD-EPI)AfAm (60.0-200.0) Est GFR (CKD-EPI)NonAf (60.0-200.0) Glucose (70-110) mg/dL POC Glucose (mg/dL) 162 H 186 H (75-99) mg/dL Calcium (8.7-10.3) mg/dL Iron 26 L (50-170) ug/dL TIBC 218 L (228-460) ug/dL % Saturation 11.93 L (12.00-45.00) 05/29/20 05/29/20 05/29/20 Range/Units 06:20 06:20 06:49 RBC 2.60 L (3.80-5.40) m/uL Hgb 9.3 L (11.4-16.0) gm/dL Hct 27.8 L (34.0-46.0) % MCV 106.8 H (80.0-100.0) fL MCH 35.6 H (25.0-35.0) pg Plt Count 140 L (150-450) k/uL Carbon Dioxide 20.8 L (21.6-31.8) mmol/L BUN 63.0 H (9.0-27.0) mg/dL Creatinine 3.5 H (0.6-1.5) mg/dL Est GFR (CKD-EPI)AfAm 13.0 L (60.0-200.0) Est GFR (CKD-EPI)NonAf 11.2 L (60.0-200.0) Glucose 141 H (70-110) mg/dL POC Glucose (mg/dL) 160 H (75-99) mg/dL Calcium 8.4 L (8.7-10.3) mg/dL Iron (50-170) ug/dL TIBC (228-460) ug/dL % Saturation (12.00-45.00) 05/29/20 Range/Units 11:13 RBC (3.80-5.40) m/uL Hgb (11.4-16.0) gm/dL Hct (34.0-46.0) % MCV (80.0-100.0) fL MCH (25.0-35.0) pg Plt Count (150-450) k/uL Carbon Dioxide (21.6-31.8) mmol/L BUN (9.0-27.0) mg/dL Creatinine (0.6-1.5) mg/dL Est GFR (CKD-EPI)AfAm (60.0-200.0) Est GFR (CKD-EPI)NonAf (60.0-200.0) Glucose (70-110) mg/dL POC Glucose (mg/dL) 104 H (75-99) mg/dL Calcium (8.7-10.3) mg/dL Iron (50-170) ug/dL TIBC (228-460) ug/dL % Saturation (12.00-45.00) Assessment and Plan (1) Intertrochanteric fracture of left hip Narrative/Plan: She will continue with pain management, wound care, PT, DVT prophylaxis and medical management. Will increase her pain meds. She is touchdown weightbearing with walker. She will most likely will require inpatient rehab. Continue care. Current Visit: Yes Status: Acute Priority: Medium Code(s): S72.142A - DISPLACED INTERTROCHANTERIC FRACTURE OF LEFT FEMUR, INIT SNOMED Code(s): 006800420 Time with Patient: Less than 30
[2020-05-29] MEDS: HYDROcodone/APAP 10-325MG 1 EACH TAB PO PRN ×2 (13:58→21:29)
--- NOTE | 2020-05-29 16:11 | P.PN ---
Subjective Progress Note Date: 05/29/20 Patient was seen and examined. No acute events overnight. Underwent left intramedullary hip screw fixation for left intertrochanteric hip fracture POD 2. She reports worsening pain in her left hip only with movement. She denies any chest pain, shortness breath or palpitations. No nausea or vomiting. No fever or chills. Objective - Vital Signs Vital signs: Vital Signs Temp 97.6 F 05/29/20 14:39 Pulse 72 05/29/20 14:39 Resp 17 05/29/20 14:39 BP 139/58 05/29/20 14:39 Pulse Ox 92 L 05/29/20 14:39 Intake & Output 05/28/20 05/29/20 05/29/20 18:59 06:59 18:59 Intake Total 480 160 160 Output Total 427 260 3089 Balance 80 -340 -2690 Intake: IV 160 Sodium Chloride 0.9% 1, 160 000 ml @ 20 mls/hr IV . Q24H [facility] Rx#:[id number] Intake, IV Titration 160 160 Amount Sodium Chloride 0.9% 1, 160 160 000 ml @ 20 mls/hr IV . Q24H [facility] Rx#:[id number] Oral 320 Output: Urine 400 500 350 Hemodialysis 2500 Other: Voiding Method Indwelling Catheter Indwelling Catheter Indwelling Catheter # Bowel Movements 1 1 - Exam General: [non toxic], [no distress], [appears at stated age] Derm: [warm], [dry] Head: [atraumatic], [normocephalic], [symmetric] Eyes: [EOMI], [no lid lag], [anicteric sclera] Mouth: [no lip lesion], [mucus membranes moist] Cardiovascular: [S1S2 reg], [no murmur], [positive DP pulse bilateral], Lungs: [CTA bilateral], [no rhonchi, no rales] , [no accessory muscle use] Abdominal: [soft], [ nontender to palpation], [no guarding], [no appreciable organomegaly] Ext: [no gross muscle atrophy], [no edema], [no contractures], tenderness to palpation left lateral hip with restricted range of motion due to pain, right upper extremity fistula Neuro: [no focal neuro deficits], decreased sensation in the left toes to touch Psych: [Alert], [oriented], [appropriate affect] - Labs CBC & Chem 7: 05/29/20 06:20 05/29/20 06:20 Labs: Abnormal Lab Results - Last 24 Hours (Table) 05/28/20 05/28/20 05/29/20 Range/Units 16:32 20:21 06:20 RBC (3.80-5.40) m/uL Hgb (11.4-16.0) gm/dL Hct (34.0-46.0) % MCV (80.0-100.0) fL MCH (25.0-35.0) pg Plt Count (150-450) k/uL Carbon Dioxide (21.6-31.8) mmol/L BUN (9.0-27.0) mg/dL Creatinine (0.6-1.5) mg/dL Est GFR (CKD-EPI)AfAm (60.0-200.0) Est GFR (CKD-EPI)NonAf (60.0-200.0) Glucose (70-110) mg/dL POC Glucose (mg/dL) 162 H 186 H (75-99) mg/dL Calcium (8.7-10.3) mg/dL Iron 26 L (50-170) ug/dL TIBC 218 L (228-460) ug/dL % Saturation 11.93 L (12.00-45.00) 05/29/20 05/29/20 05/29/20 Range/Units 06:20 06:20 06:49 RBC 2.60 L (3.80-5.40) m/uL Hgb 9.3 L (11.4-16.0) gm/dL Hct 27.8 L (34.0-46.0) % MCV 106.8 H (80.0-100.0) fL MCH 35.6 H (25.0-35.0) pg Plt Count 140 L (150-450) k/uL Carbon Dioxide 20.8 L (21.6-31.8) mmol/L BUN 63.0 H (9.0-27.0) mg/dL Creatinine 3.5 H (0.6-1.5) mg/dL Est GFR (CKD-EPI)AfAm 13.0 L (60.0-200.0) Est GFR (CKD-EPI)NonAf 11.2 L (60.0-200.0) Glucose 141 H (70-110) mg/dL POC Glucose (mg/dL) 160 H (75-99) mg/dL Calcium 8.4 L (8.7-10.3) mg/dL Iron (50-170) ug/dL TIBC (228-460) ug/dL % Saturation (12.00-45.00) 05/29/20 Range/Units 11:13 RBC (3.80-5.40) m/uL Hgb (11.4-16.0) gm/dL Hct (34.0-46.0) % MCV (80.0-100.0) fL MCH (25.0-35.0) pg Plt Count (150-450) k/uL Carbon Dioxide (21.6-31.8) mmol/L BUN (9.0-27.0) mg/dL Creatinine (0.6-1.5) mg/dL Est GFR (CKD-EPI)AfAm (60.0-200.0) Est GFR (CKD-EPI)NonAf (60.0-200.0) Glucose (70-110) mg/dL POC Glucose (mg/dL) 104 H (75-99) mg/dL Calcium (8.7-10.3) mg/dL Iron (50-170) ug/dL TIBC (228-460) ug/dL % Saturation (12.00-45.00) Assessment and Plan Assessment: Left proximal femoral fracture Acute blood loss anemia ESRD on hemodialysis Diabetes mellitus Atrial fibrillation Chronic conditions: Hypothyroidism, atrial fibrillation, history of CHF, CAD, dyslipidemia, GERD, hypertension As seen on CT hip. Nephrology cleared the patient for surgery. Patient is clinically stable from a cardiac perspective as per cardiology. Echocardiogram shows EF 60-65% with mild concentric LVH. POD 2. Plans: Orthopedic surgery on board. Adequate pain control. Eliquis restarted. Restart diet. Fall precautions. Follow PT and OT recommendations. Fall precaution Hemoglobin 9.3. Iron study shows iron deficiency. Plans: Start ferrous sulfa te. Transfuse if hemoglobin less than 7. Repeat CBC tomorrow morning. Creatinine 3.5. Plans: Nephrology consulted to initiate hemodialysis. Repeat BMP tomorrow morning. Refsn-je-ewck glucose 104. Plans: Insulin sliding scale. Regular Accu-Cheks. Hypoglycemic precautions. Plans: Continue atenolol. Cardiology discontinued flecainide. Anticoagulation restarted by orthopedic surgery. [Patient needs better pain control. Working with PT and OT. Plans for [facility] rehab. She is pending clinical improvement. Likely DC in 1-2 days.]
[2020-05-29 16:23] LABS: Glucose,Whole Blood 189 mg/dL (75-99)
--- NOTE | 2020-05-29 16:31 | PN ---
PROGRESS NOTE Patient is seen for followup for end-stage renal disease. She is currently seen on hemodialysis. Patient is tolerating her treatment well. She has some pain in her hip area from surgery. PHYSICAL EXAMINATION: This morning, blood pressure was 145/61, heart rate of 70 per minute, patient is afebrile. Examination of the heart S1, S2. Examination of the lungs, bilateral breath sounds are heard. Abdomen is soft, nontender. Examination of the lower extremities shows no significant edema. [employer]CH[employer] exam grossly intact. LABS: Show sodium 137, potassium 4.9, chloride 106, creatinine 3.5, hemoglobin 9.3 g/dL. ASSESSMENT: 1. End-stage renal disease, on hemodialysis on a Friday, Friday, Friday schedule. 2. Status post fall and fracture of left hip status post left intramedullary hip fixation on 05/27/2020 with screw. 3. Atrial fibrillation, currently in sinus rhythm. 4. End-stage renal disease, maintained on a Friday, Friday, Friday schedule via PermCath which needs to be removed. PLAN: Next hemodialysis will be on Friday hopefully as outpatient. We can remove the dialysis catheter post treatment as it was scheduled to be removed this week as outpatient. Her AV graft is functional and has been in use without any issues. MMODL / IJN: [id number] /
[2020-05-29] MEDS: FERROUS SULFATE 325 MG TAB PO SCH (17:32)
[2020-05-29] MEDS: SODIUM CHLORIDE 0.9% 1,000 ML IV SCH (17:50)
[2020-05-29 20:54] LABS: Glucose,Whole Blood 150 mg/dL (75-99)
[2020-05-29] MEDS: MIRTAZAPINE 15 MG TAB PO SCH (21:29)
[2020-05-30] MEDS: traMADol 50 MG TAB PO PRN (01:47)
[2020-05-30] MEDS: LEVOTHYROXINE 100 MCG TAB PO SCH (05:35)
[2020-05-30 06:46] LABS: Glucose,Whole Blood 160 mg/dL (75-99)
[2020-05-30] MEDS: PANTOPRAZOLE 40 MG TABLET PO SCH (08:32)
[2020-05-30] MEDS: CALCIUM ACETATE 667 MG TAB PO SCH (08:33)
[2020-05-30] MEDS: atenoloL 50 MG TAB PO SCH (08:33)
[2020-05-30] MEDS: FERROUS SULFATE 325 MG TAB PO SCH (08:33)
[2020-05-30] MEDS: TORSEMIDE 20 MG TAB PO SCH (08:33)
[2020-05-30] MEDS: APIXABAN 2.5 MG TABLET PO SCH (08:33)
[2020-05-30] MEDS: INSULIN ASPART (NovoLOG) 100 UNIT/ML VIAL SQ SCH ×2 (08:33→13:12)
[2020-05-30] MEDS: ATORVASTATIN 10 MG TAB PO SCH (08:33)
[2020-05-30] MEDS: allopurinoL 100 MG TAB PO SCH (08:33)
[2020-05-30] MEDS: SODIUM CHLORIDE 0.9% 1,000 ML IV SCH (08:34)
[2020-05-30] MEDS ORDERED: LIDOCAINE 1% INJ 10MG/ML (20 ML MDV) SQ ONE (10:00)
[2020-05-30 11:32] LABS: Glucose,Whole Blood 153 mg/dL (75-99)
--- NOTE | 2020-05-30 14:21 | P.DS ---
Providers Date of admission: 05/25/20 14:18 Expected date of discharge: 05/30/20 Attending physician: Isaiah Dudley Consults: 05/25/20 13:33 Consult Physician Routine Consulting Provider: Shaji Velazco Consult Reason/Comments: dialysis patient Do you want consulting provider notified?: Yes 05/25/20 14:07 Consult Physician Routine Consulting Provider: Denice Owen Consult Reason/Comments: IM consult Do you want consulting provider notified?: Yes 05/25/20 16:17 Consult Physician Stat Consulting Provider: [facility] Consult Reason/Comments: cardiac clearance for surgery Do you want consulting provider notified?: Yes 05/29/20 13:48 Consult Physician Routine Consulting Provider: Erik Argueta Consult Reason/Comments: discontinue dialysis catheter Do you want consulting provider notified?: Yes Primary care physician: Phil Blood - Discharge Diagnosis(es) (1) Intertrochanteric fracture of left hip Patient was admitted to the OR on 05/27/2020 to undergo closed reduction internal fixation with Gamma nail for left IT fracture. She desired to proceed with elective surgery after given informed consent. She underwent the above procedure which she tolerated well without complication. Postoperative hospital course has remained without complication. She continued with dialysis treatments and medical management. On day of discharge she is afebrile, vital signs stable, labs within acceptable ranges, tolerating by mouth meds and diet, voiding without difficulty, positive flatus, denies abdominal pain or calf pain, pain is controlled on oral pain medication and has no new complaints. Wound is benign, neurovascular status is intact, calf is soft and nontender, abdomen soft and nontender. Review of systems is negative for numbness, tingling, fever, chills, chest pain, shortness of breath, nausea, vomiting, dizziness, headaches, slurred speech or other. Current Visit: Yes Status: Acute Priority: Medium (2) Status post-operative repair of closed fracture of left hip Current Visit: Yes Status: Acute Priority: Medium Patient Condition at Discharge: Good Plan - Discharge Summary Discharge Rx Participant: No New Discharge Prescriptions: New HYDROcodone/APAP 10-325MG [[place] 10-325] 1 tab PO Q4HR PRN #42 tab PRN Reason: Pain No Action Levothyroxine Sodium [Synthroid] 100 mcg PO DAILY Flecainide [Tambocor] 50 mg PO BID allopurinoL [Zyloprim] 100 mg PO DAILY atenoloL [Tenormin] 50 mg PO DAILY Acetaminophen [Tylenol] 1,000 mg PO DAILY Cholecalciferol (Vitamin D3) [Vitamin D3] 4,000 unit PO DAILY Pantoprazole [Protonix] 40 mg PO DAILY Ondansetron [Zofran] 4 mg PO Q8HR PRN PRN Reason: Nausea Folic Acid-Vit B Complex-Vit C [Nephrocaps] 1 cap PO DAILY Insulin Lispro [humaLOG Kwikpen] See Protocol SQ AC-TID Torsemide [Demadex] 40 mg PO DAILY Apixaban [Eliquis] 2.5 mg PO BID Loperamide HCl [Loperamide] 2 mg PO DAILY PRN PRN Reason: Diarrhea Nitrofurantoin Monohyd/M-Cryst [Macrobid] 100 mg PO BID Calcium Acetate [Phoslo] 667 mg PO DAILY Mirtazapine [Remeron] 15 mg PO HS Simvastatin [Zocor] 20 mg PO DAILY Prednisolone Acetate/Pf [Prednisolone Acet 1% Eye Drop] 1 drop BOTH EYES DAILY Discharge Medication List Levothyroxine Sodium [Synthroid] 100 mcg PO DAILY 01/31/14 [History] Flecainide [Tambocor] 50 mg PO BID 10/12/16 [History] allopurinoL [Zyloprim] 100 mg PO DAILY 01/18/17 [History] atenoloL [Tenormin] 50 mg PO DAILY 10/10/17 [History] Acetaminophen [Tylenol] 1,000 mg PO DAILY 05/22/18 [History] Cholecalciferol (Vitamin D3) [Vitamin D3] 4,000 unit PO DAILY 05/26/19 [History] Pantoprazole [Protonix] 40 mg PO DAILY 08/16/19 [History] Folic Acid-Vit B Complex-Vit C [Nephrocaps] 1 cap PO DAILY 02/04/20 [History] Insulin Lispro [humaLOG Kwikpen] See Protocol SQ AC-TID 02/04/20 [History] Ondansetron [Zofran] 4 mg PO Q8HR PRN 02/04/20 [History] Apixaban [Eliquis] 2.5 mg PO BID 02/22/20 [History] Torsemide [Demadex] 40 mg PO DAILY 02/22/20 [History] Loperamide HCl [Loperamide] 2 mg PO DAILY PRN 04/05/20 [History] Calcium Acetate [Phoslo] 667 mg PO DAILY 05/25/20 [History] Mirtazapine [Remeron] 15 mg PO HS 05/25/20 [History] Nitrofurantoin Monohyd/M-Cryst [Macrobid] 100 mg PO BID 05/25/20 [History] Prednisolone Acetate/Pf [Prednisolone Acet 1% Eye Drop] 1 drop BOTH EYES DAILY 05/25/20 [History] Simvastatin [Zocor] 20 mg PO DAILY 05/25/20 [History] HYDROcodone/APAP 10-325MG [[place] 10-325] 1 tab PO Q4HR PRN #42 tab 05/30/20 [Rx] Follow up Appointment(s)/Referral(s): Phil Blood MD [Primary Care Provider] - 1-2 days Arvind Yang, [NON-STAFF] - As Needed Isaiah Dudley MD [STAFF PHYSICIAN] - 10 Days Activity/Diet/Wound Care/Special Instructions: Touch down weightbearing keep wound clean and dry f/u with Dr. Dudley in office take meds as directed Discharge Disposition: TRANSFER TO SNF/ECF
--- NOTE | 2020-05-30 14:42 | PN ---
PROGRESS NOTE Patient is seen for followup for end-stage renal disease. This morning patient is doing fairly well, she denies any significant complaints. Vascular Surgery was consulted to remove the hemodialysis catheter. PHYSICAL EXAMINATION: Today blood pressure was 95/53, heart rate 61 per minute, patient is afebrile. Examination of the heart S1, S2. Examination of the lungs, bilateral breath sounds are heard. Abdomen is soft, nontender. Examination of the lower extremities shows no significant edema. There is trace edema noted in the left lower extremity. Leg post surgery. LABS: Not available from today. ASSESSMENT: 1. End-stage renal disease, on hemodialysis on a Friday, Friday, Friday schedule. Patient has a functioning AV graft in the right arm. 2. Status post fall and fracture left leg, status post intramedullary screw placement and fixation on 05/27/2020. 3. Atrial fibrillation, currently in sinus rhythm, maintained on anticoagulation. PLAN: Hemodialysis in a.m. Remove PermCath while patient is in the hospital as she was scheduled to have it out this week as outpatient. MMODL / IJN: [id number] /
--- NOTE | 2020-05-30 14:46 | P.PN ---
Subjective Progress Note Date: 05/30/20 Principal diagnosis: hip pain Patient is an 84-year-old female with a history of end-stage renal disease on hemodialysis Friday, Friday, Friday, afebrile, diabetes, hypertension, and dyslipidemia who initially presented to the emergency department after a fall. She was found have a left proximal femur fracture and subsequently underwent left intramedullary nailing on 05/27. Patient seen and examined at bedside. She complains of significant left hip pain that is worse with movement or sitting in the chair. She denies any chest pain, shortness breath, nausea, or vomiting. General: non toxic, moderate distress secondary to pain, appears at stated age Derm: warm, dry Head: atraumatic, normocephalic, symmetric Eyes: EOMI, no lid lag, anicteric sclera Mouth: no lip lesion, mucus membranes moist Cardiovascular: S1S2 reg, no murmur, positive posterior tibial pulse bilateral, Lungs: Decreased breath sounds bilateral, no rhonchi, no rales , no accessory muscle use Abdominal: soft, nontender to palpation, no guarding, no appreciable organomegaly Ext: no gross muscle atrophy, no edema, no contractures Neuro: CN II-XI grossly intact, no focal neuro deficits Psych: Alert, oriented, appropriate affect End-stage renal disease on hemodialysis Friday/Friday/Friday -Nephrology recommendations appreciated -Plan for removal of permacath today as fistula is functioning -Likely to be discharged after removal of permacath. Acute blood loss anemia and anemia of chronic disease -Stable -Iron supplementation and maintain their and as -Follow CBC with hemodialysis Left proximal femoral neck fracture -Status post IM nailing -Pain medications -On Eliquis for DVT prophylaxis -PT/OT Diabetes mellitus type 2 -Resume home sliding scale -A1c 5.4 Chronic conditions: A. fib, compensated congestive heart failure, coronary artery disease, dyslipidemia, hypertension, GERD Medically optimized for discharge to [facility] once permacath has been removed. Medication reconciliation addressed. Objective - Vital Signs Vital signs: Vital Signs Temp 98.0 F 05/30/20 07:00 Pulse 61 05/30/20 07:00 Resp 18 05/30/20 07:00 BP 95/53 05/30/20 07:00 Pulse Ox 98 05/30/20 07:00 Intake & Output 0905/30/20 05/30/20 18:59 06:59 18:59 Intake Total 160 360 Output Total 2850 400 Balance -2690 -40 Intake: IV 160 Sodium Chloride 0.9% 1, 160 000 ml @ 20 mls/hr IV . Q24H [facility] Rx#:[id number] Intake, IV Titration 160 Amount Sodium Chloride 0.9% 1, 160 000 ml @ 20 mls/hr IV . Q24H [facility] Rx#:[id number] Oral 200 Output: Urine 350 400 Hemodialysis 2500 Other: Voiding Method Indwelling Catheter Indwelling Catheter Indwelling Catheter # Bowel Movements 1 - Labs CBC & Chem 7: 05/29/20 06:20 05/29/20 06:20 Labs: Abnormal Lab Results - Last 24 Hours (Table) 05/29/20 05/29/20 05/30/20 Range/Units 16:21 20:43 06:44 POC Glucose (mg/dL) 189 H 150 H 160 H (75-99) mg/dL 05/30/20 Range/Units 11:30 POC Glucose (mg/dL) 153 H (75-99) mg/dL
[2020-05-30 14:53] VITALS: BP 147/55; PULSE 66; RESP 17; TEMP 97.3
[2020-05-30] MEDS: MORPHINE SULFATE 2 MG/ML SYRINGE IVP PRN (15:30)
== END 2020-05-30 16:15 | DRG 480 ==
LOC: EC 11:55 → 4SSUR 14:18
PROVIDERS: ADMIT Orthopaedic Surgery Sports Medicine; ATTEND Orthopaedic Surgery Sports Medicine
PROC: 5A1D70Z Performance of Urinary Filtration, Intermittent, Less than 6 Hours Per Day (ICD-10-PCS; 2020-05-26)
PROC: 5A09457 Assistance with Respiratory Ventilation, 24-96 Consecutive Hours, Continuous Positive Airway Pressure (ICD-10-PCS; 2020-05-27)
PROC: 0QS736Z Reposition Left Upper Femur with Intramedullary Internal Fixation Device, Percutaneous Approach (ICD-10-PCS; principal; 2020-05-27 10:00)
DX: S72.142A Displaced intertrochanteric fracture of left femur, initial encounter for closed fracture (principal); N18.6 End stage renal disease; I13.2 Hypertensive heart and chronic kidney disease with heart failure and with stage 5 chronic kidney disease, or end stage renal disease; I42.8 Other cardiomyopathies; I48.11 Longstanding persistent atrial fibrillation; D62 Acute posthemorrhagic anemia; I50.32 Chronic diastolic (congestive) heart failure; I49.5 Sick sinus syndrome; I27.22 Pulmonary hypertension due to left heart disease; E83.9 Disorder of mineral metabolism, unspecified; D63.1 Anemia in chronic kidney disease; E11.22 Type 2 diabetes mellitus with diabetic chronic kidney disease; E11.40 Type 2 diabetes mellitus with diabetic neuropathy, unspecified; M06.9 Rheumatoid arthritis, unspecified; Z99.2 Dependence on renal dialysis; Z79.4 Long term (current) use of insulin; S40.022A Contusion of left upper arm, initial encounter; K21.9 Gastro-esophageal reflux disease without esophagitis; E78.5 Hyperlipidemia, unspecified; M19.90 Unspecified osteoarthritis, unspecified site; G47.33 Obstructive sleep apnea (adult) (pediatric); E03.9 Hypothyroidism, unspecified; I07.1 Rheumatic tricuspid insufficiency; I25.10 Atherosclerotic heart disease of native coronary artery without angina pectoris; Y92.000 Kitchen of unspecified non-institutional (private) residence as the place of occurrence of the external cause; W01.0XXA Fall on same level from slipping, tripping and stumbling without subsequent striking against object, initial encounter; I25.2 Old myocardial infarction; Z79.899 Other long term (current) drug therapy; Z79.01 Long term (current) use of anticoagulants; Z86.718 Personal history of other venous thrombosis and embolism; Z91.81 History of falling; Z79.890 Hormone replacement therapy; Z86.711 Personal history of pulmonary embolism; Z87.440 Personal history of urinary (tract) infections; Z90.710 Acquired absence of both cervix and uterus; Z95.0 Presence of cardiac pacemaker; Z98.890 Other specified postprocedural states; Z95.828 Presence of other vascular implants and grafts; Z98.42 Cataract extraction status, left eye; Z98.41 Cataract extraction status, right eye; Z88.5 Allergy status to narcotic agent; Z88.0 Allergy status to penicillin; Z88.2 Allergy status to sulfonamides; Z83.3 Family history of diabetes mellitus; Z82.49 Family history of ischemic heart disease and other diseases of the circulatory system; Z82.61 Family history of arthritis; Z80.9 Family history of malignant neoplasm, unspecified
CPT/HCPCS: 36415; 70450; 71046; 72100; 72125; 73501; 73502; 80048; 80053; 83036; 83540; 83550; 83735; 85025; 85027; 85610; 85730; 90935; 93005; 93306; 96374; 99285

== ENCOUNTER 2020-07-26 10:13 | Emergency (ER) | payer MEDICARE ==
[2020-07-26 10:23] VITALS: RESP 18
--- NOTE | 2020-07-26 10:55 | ED ---
SOB HPI - General Chief Complaint: Shortness of Breath Stated Complaint: CHF/low blood pressure Time Seen by Provider: 07/26/20 10:20 Source: patient Mode of arrival: ambulatory Limitations: no limitations - History of Present Illness Initial Comments: Patient is an [age] female past medical history of A. fib, end-stage renal disease on hemodialysis, hypertension who presents emergency Department with reported shortness of breath. Patient states that she has had progressive shortness of breath for the past several months. She does see Dr. Vance in office for this. He reports that she has been diagnosed with CHF. She does take diuretics she still makes urine. Patient is on dialysis and goes Friday and Friday. Patient did receive her dialysis yesterday he has of the holiday. Denies missing any sessions. Patient reported taking her blood pressure earlier today and found to be low. Patient was concerned about the progressive nature of her symptoms and therefore presented today to the emergency department. She denies any chest pain. No nausea, vomiting. Denies any changes in her bowel or bladder habits. No recent medication changes. No other alleviating, precipitating or modifying factors - Related Data Home Medications Medication Instructions Recorded Confirmed Levothyroxine Sodium [Synthroid] 100 mcg PO DAILY 01/31/14 07/26/20 allopurinoL [Zyloprim] 100 mg PO DAILY 01/18/17 07/26/20 atenoloL [Tenormin] 25 mg PO SUTUTHSA@199910/10/17 07/26/20 Pantoprazole [Protonix] 40 mg PO DAILY 08/16/19 07/26/20 Insulin Lispro [humaLOG Kwikpen] See Protocol SQ AC-TID 02/04/20 07/26/20 Ondansetron [Zofran] 4 mg PO Q8HR PRN 02/04/20 07/26/20 Apixaban [Eliquis] 2.5 mg PO BID 02/22/20 07/26/20 Torsemide [Demadex] 40 mg PO DAILY 02/22/20 07/26/20 Calcium Acetate [PhosLo] 667 mg PO DAILY 05/25/20 07/26/20 Mirtazapine [Remeron] 15 mg PO HS 05/25/20 07/26/20 Prednisolone Acetate/Pf 1 drop BOTH EYES HS 05/25/20 07/26/20 [Prednisolone Acet 1% Eye Drop] Simvastatin [Zocor] 20 mg PO HS 05/25/20 07/26/20 Acetaminophen [Tylenol Arthritis] 650 mg PO TID PRN 07/26/20 07/26/20 Carboxymethylcellulose Sodium 1 drop BOTH EYES BID 07/26/20 07/26/20 [Refresh Tears] Cholecalciferol (Vitamin D3) 125 mcg PO DAILY 07/26/20 07/26/20 [Vitamin D3] Diphenox-Atrop 2.5-0.025 mg 1 tab PO Q8H PRN 07/26/20 07/26/20 [Lomotil] Flecainide [Tambocor] 50 mg PO BID 07/26/20 07/26/20 Sodium Chloride 5% Ophth Soln 1 drop BOTH EYES HS 07/26/20 07/26/20 [Nikko 128] Virt-Caps 1mg 1 cap PO DAILY 07/26/20 07/26/20 Allergies Allergy/AdvReac Type Severity Reaction Status Date / Time amoxicillin Allergy Rash/Hives Verified 07/26/20 11:51 Penicillins Allergy Rash/Hives Verified 07/26/20 11:51 Sulfa (Sulfonamide Allergy Rash/Hives Verified 07/26/20 11:51 Antibiotics) meperidine HCl [From Demerol] AdvReac Nausea & Verified 07/26/20 11:51 Vomiting Review of Systems ROS Statement: Those systems with pertinent positive or pertinent negative responses have been documented in the HPI. ROS Other: All systems not noted in ROS Statement are negative. Past Medical History Past Medical History: Atrial Fibrillation, Heart Failure, Diabetes Mellitus, Deep Vein Thrombosis (DVT), GERD/Reflux, Hyperlipidemia, Hypertension, Myocardial Infarction (AR), Osteoarthritis (OA), Pulmonary Embolus (PE), Renal Disease, Rheumatoid Arthritis (RA), Sleep Apnea/CPAP/BIPAP, Thyroid Disorder Additional Past Medical History / Comment(s): Pt admitted to [facility] on 02/06/20 with UTI/ESBL/bacteremia. Other hx: IDDM type II, diabetic neuropathy bilateral hands/feet, ESRD with hemodialysis, has temporary boone cath for dialysis d/t R upper arm recent fistula surgery 02/01/20 in which fistula was repositioned, R arm/shoulder limited ROM since fistula surgery, current UTI, recurrent UTIs, pt was told she had a past AR d/t EKG, palpitations, SSS with pacer, HARRIS with Cpap, chronic back and bilateral knee pain, hypothyroid. Last Myocardial Infarction Date:: unknown History of Any Multi-Drug Resistant Organisms: ESBL Date of last positivie culture/infection: 02/04/20 MDRO Source:: ESBL URINE Past Surgical History: Bladder Surgery, Hysterectomy, Pacemaker Additional Past Surgical History / Comment(s): 02/01/20 R upper arm fistula re positioned, R chest boone cath, rectocele, cystocele, hemorrhoidectomy, bilateral leg vein strippings, bilateral cataract removal, Picc lines Past Anesthesia/Blood Transfusion Reactions: No Reported Reaction Type of Cardiac Device: Permanent Pacemaker Device Placement Date:: 01/2017 Past Psychological History: No Psychological Hx Reported Smoking Status: Never smoker - Past Family History Father Family Medical History: AFIB, AICD/Pacemaker, Congestive Heart Failure (CHF), Coronary Artery Disease (CAD), Diabetes Mellitus, Dialysis, Deep Vein Thrombosis (DVT), Hyperlipidemia, Hypertension, Myocardial Infarction (AR), Rheumatoid Arthritis (RA) Mother Family Medical History: Unable to Obtain Sister(s) Family Medical History: Cancer General Exam Limitations: no limitations Course Vital Signs 07/26/20 07/26/20 07/26/20 10:21 12:09 13:44 Temperature 98.2 F 98.3 F Pulse Rate 62 60 69 Respiratory 18 18 18 Rate Blood Pressure 136/64 127/48 146/80 O2 Sat by Pulse 100 100 98 Oximetry Medical Decision Making - Medical Decision Making Upon arrival patient is placed in a trauma 1. A thorough history and physical exam was performed. Patient's vitals are obtained and the patient is saturating 100% on room air. Blood pressures obtained and is stable. I did recommend completing laboratory studies. The lead EKG was performed as well as a chest x- ray. Laboratory studies are unremarkable for a hemoglobin 5.3 which is her on the patient's baseline. Creatinine is 2.8. Troponin is negative. Chest x-ray demonstrates no signs of CHF. Patient is reevaluated. Results are discussed with the patient. I do believe that the patient needs pulmonary function testing and an echo. Patient states that she will follow up outpatient in order to have the testing performed as this has been a chronic issue for her. The patient follow up with Dr. Starr. A bedside cardiac ultrasound was performed which demonstrates no signs of pericardial effusion. Patient understood this. If she has any new or worsening symptoms she should return to the emergency room. Patient was discharged home in stable condition - Lab Data Result diagrams: 07/26/20 11:00 07/26/20 11:00 Lab Results 07/26/20 07/26/20 07/26/20 Range/Units 11:00 11:00 11:00 WBC 7.0 (3.8-10.6) k/uL RBC 2.61 L (3.80-5.40) m/uL Hgb 9.3 L (11.4-16.0) gm/dL Hct 28.3 L (34.0-46.0) % MCV 108.5 H (80.0-100.0) fL MCH 35.7 H (25.0-35.0) pg MCHC 32.9 (31.0-37.0) g/dL RDW 16.2 H (11.5-15.5) % Plt Count 185 (150-450) k/uL MPV 7.9 Neutrophils % 68 % Lymphocytes % 25 % Monocytes % 4 % Eosinophils % 2 % Basophils % 0 % Neutrophils # 4.8 (1.3-7.7) k/uL Lymphocytes # 1.7 (1.0-4.8) k/uL Monocytes # 0.3 (0-1.0) k/uL Eosinophils # 0.1 (0-0.7) k/uL Basophils # 0.0 (0-0.2) k/uL Manual Slide Review Performed Anisocytosis Slight Macrocytosis Marked A PT 10.0 (9.0-12.0) sec INR 1.0 (<1.2) APTT 25.3 (22.0-30.0) sec Sodium 130 L (137-145) mmol/L Potassium 4.4 (3.5-5.1) mmol/L Chloride 94 L (98-107) mmol/L Carbon Dioxide 29 (22-30) mmol/L Anion Gap 7 mmol/L BUN 42 H (7-17) mg/dL Creatinine 2.86 H (0.52-1.04) mg/dL Est GFR (CKD-EPI)AfAm 17 (>60 ml/min/1.73 sqM) Est GFR (CKD-EPI)NonAf 14 (>60 ml/min/1.73 sqM) Glucose 215 H (74-99) mg/dL Plasma Lactic Acid Gilberto (0.7-2.0) mmol/L Calcium 8.5 (8.4-10.2) mg/dL Total Bilirubin 0.4 (0.2-1.3) mg/dL AST 24 (14-36) U/L ALT 13 (4-34) U/L Alkaline Phosphatase 96 (38-126) U/L Troponin I (0.000-0.034) ng/mL NT-Pro-B Natriuret Pep pg/mL Total Protein 5.7 L (6.3-8.2) g/dL Albumin 3.1 L (3.5-5.0) g/dL 07/26/20 07/26/20 07/26/20 Range/Units 11:00 11:00 11:00 WBC (3.8-10.6) k/uL RBC (3.80-5.40) m/uL Hgb (11.4-16.0) gm/dL Hct (34.0-46.0) % MCV (80.0-100.0) fL MCH (25.0-35.0) pg MCHC (31.0-37.0) g/dL RDW (11.5-15.5) % Plt Count (150-450) k/uL MPV Neutrophils % % Lymphocytes % % Monocytes % % Eosinophils % % Basophils % % Neutrophils # (1.3-7.7) k/uL Lymphocytes # (1.0-4.8) k/uL Monocytes # (0-1.0) k/uL Eosinophils # (0-0.7) k/uL Basophils # (0-0.2) k/uL Manual Slide Review Anisocytosis Macrocytosis PT (9.0-12.0) sec INR (<1.2) APTT (22.0-30.0) sec Sodium (137-145) mmol/L Potassium (3.5-5.1) mmol/L Chloride (98-107) mmol/L Carbon Dioxide (22-30) mmol/L Anion Gap mmol/L BUN (7-17) mg/dL Creatinine (0.52-1.04) mg/dL Est GFR (CKD-EPI)AfAm (>60 ml/min/1.73 sqM) Est GFR (CKD-EPI)NonAf (>60 ml/min/1.73 sqM) Glucose (74-99) mg/dL Plasma Lactic Acid Gilberto 1.7 (0.7-2.0) mmol/L Calcium (8.4-10.2) mg/dL Total Bilirubin (0.2-1.3) mg/dL AST (14-36) U/L ALT (4-34) U/L Alkaline Phosphatase (38-126) U/L Troponin I <0.012 (0.000-0.034) ng/mL NT-Pro-B Natriuret Pep 5590 pg/mL Total Protein (6.3-8.2) g/dL Albumin (3.5-5.0) g/dL - EKG Data EKG Comments: EKG demonstrates AV paced rhythm. Rate of 61. QRS 208. QTC of 571. No acute ST segment elevations or depressions. Pacemaker does capture appropriately Disposition Clinical Impression: Acute respiratory insufficiency, Renal failure, CKD (chronic kidney disease), stage IV Disposition: HOME SELF-CARE Condition: Stable Instructions (If sedation given, give patient instructions): Shortness of Breath (ED) Additional Instructions: Please follow-up Dr. Starr and Dr. Lux. I do recommend an echo of your heart. Return to the emergency department for any new or worsening symptoms Is patient prescribed a controlled substance at d/c from ED?: No Referrals: Liza Vargas MD [Primary Care Provider] - 1-2 days Theodore Starr MD [STAFF PHYSICIAN] - 1-2 days Time of Disposition: 13:08
--- NOTE | 2020-07-26 11:15 | XR ---
EXAMINATION TYPE: XR chest 2V DATE OF EXAM: 07/26/2020 COMPARISON: 05/25/2020 HISTORY: Shortness of breath TECHNIQUE: Frontal and lateral views of the chest are obtained. FINDINGS: Scattered senescent parenchymal changes noted. Hyperinflation compatible with COPD. No evidence for infiltrate. No evidence for atelectasis. Heart size is stable. Mediastinal structures are stable and grossly unremarkable. No evidence for hilar prominence. Degenerative changes dorsal spine. IMPRESSION: 1. No evidence for acute pulmonary disease.
[2020-07-26 11:20] LABS: Anisocytosis Slight; Basophils % (A) 0 %; Eosinophils # (A) 0.1 k/uL (0-0.7); Eosinophils % (A) 2 %; HCT 28.3 % (34.0-46.0); HGB 9.3 gm/dL (11.4-16.0); Lymphocytes # (A) 1.7 k/uL (1.0-4.8); Lymphocytes % (A) 25 %; MCH 35.7 pg (25.0-35.0); MCHC 32.9 g/dL (31.0-37.0); MCV 108.5 fL (80.0-100.0); Macrocytosis Marked; Mean Platelet Volume 7.9; Monocytes # (A) 0.3 k/uL (0-1.0); Monocytes % (A) 4 %; Neutrophils # (A) 4.8 k/uL (1.3-7.7); Neutrophils % (A) 68 %; Platelet Count 185 k/uL (150-450); RBC 2.61 m/uL (3.80-5.40); RDW 16.2 % (11.5-15.5)
[2020-07-26 11:32] LABS: Albumin 3.1 g/dL (3.5-5.0); Calcium 8.5 mg/dL (8.4-10.2); Potassium 4.4 mmol/L (3.5-5.1); Total Bilirubin 0.4 mg/dL (0.2-1.3); Total Protein 5.7 g/dL (6.3-8.2)
[2020-07-26 11:36] LABS: Partial Thromboplastin Time 25.3 sec (22.0-30.0)
[2020-07-26 13:45] VITALS: BP 146/80; PULSE 69; TEMP 98.3
== END 2020-07-26 13:44 | disposition home or self-care (01) ==
LOC: EC 10:13
DX: R06.89 Other abnormalities of breathing (principal); I13.2 Hypertensive heart and chronic kidney disease with heart failure and with stage 5 chronic kidney disease, or end stage renal disease; E11.22 Type 2 diabetes mellitus with diabetic chronic kidney disease; N18.6 End stage renal disease; I50.9 Heart failure, unspecified; E03.9 Hypothyroidism, unspecified; K21.9 Gastro-esophageal reflux disease without esophagitis; E78.5 Hyperlipidemia, unspecified; I48.91 Unspecified atrial fibrillation; G47.33 Obstructive sleep apnea (adult) (pediatric); I25.2 Old myocardial infarction; Z79.4 Long term (current) use of insulin; Z79.899 Other long term (current) drug therapy; Z79.890 Hormone replacement therapy; Z79.01 Long term (current) use of anticoagulants; Z88.0 Allergy status to penicillin; Z88.2 Allergy status to sulfonamides; Z88.5 Allergy status to narcotic agent; Z86.718 Personal history of other venous thrombosis and embolism; Z99.2 Dependence on renal dialysis; Z99.89 Dependence on other enabling machines and devices
CPT/HCPCS: 36415; 71046; 80053; 83605; 83880; 84484; 85025; 85610; 85730; 93005; 99285

== ENCOUNTER → 2020-09-12 | Outpatient (CLI) | payer MEDICARE ==
[2020-09-12 21:10] LABS: Gliadin AB IgA, Deaminated NEGATIVE (NEGATIVE); Gliadin AB IgA, Unit 4.2 U/mL; Gliadin AB IgG, Deaminated NEGATIVE (NEGATIVE)
== END | disposition home or self-care (01) ==
LOC: LABWHC1 11:18
PROVIDERS: ATTEND Nurse Practitioner
DX: K52.9 Noninfective gastroenteritis and colitis, unspecified (principal)
CPT/HCPCS: 36415; 83516

== ENCOUNTER → 2020-10-10 | Outpatient (CLI) | payer MEDICARE ==
--- NOTE | 2020-10-10 10:25 | US ---
EXAMINATION TYPE: US kidneys/renal and bladder DATE OF EXAM: 10/10/2020 COMPARISON: NONE CLINICAL HISTORY: N28 Renal Cyst. History of renal cyst EXAM MEASUREMENTS: Right Kidney: 9.9 x 4.5 x 3.5 cm Left Kidney: 9.6 x 4.2 x 4.3 cm Right Kidney: echogenic, thin renal cortex Left Kidney: echogenic, thin renal cortex, cystic area lower pole = 1.6 x 1.3 x 1.5cm Bladder: not fully distended Bilateral Jets seen: no There is no evidence for hydronephrosis at this point in time. Thinned renal cortex bilaterally is re demonstrated. No nephrolithiasis is seen. No concerning masses are identified on images saved. Stab le roughly 1.5 cm thin-walled cyst left kidney lower pole level. The urinary bladder is greatly diste nded. Bilateral ureteral jets are not seen. IMPRESSION: Evidence of chronic medical renal disease. No hydronephrosis seen bilaterally.
== END | disposition home or self-care (01) ==
LOC: RADUSWWP 09:52
PROVIDERS: ATTEND Urology
DX: N18.9 Chronic kidney disease, unspecified (principal)
CPT/HCPCS: 76770

== ENCOUNTER → 2020-11-23 | Outpatient (CLI) | payer MEDICARE ==
--- NOTE | 2020-11-23 14:26 | CT ---
EXAMINATION TYPE: CT abdomen pelvis wo con DATE OF EXAM: 11/23/2020 COMPARISON: None INDICATION: hematuria DLP: 850.6 mGycm, Automated exposure control for dose reduction was used. CONTRAST: 0 mL of Isovue 300. Study performed with Oral Contrast. Patient had difficulty tolerating the ora l contrast. TECHNIQUE: Axial images were obtained from above the diaphragm to the pubic rami in the axial plane a t 5 mm thick sections. Reconstructed images are reviewed on the computer in the coronal plane. FINDINGS: Limited CT sections are obtained the lung bases. Minimal nonspecific infiltrate greater at the left base may be present.. Coronary artery calcification is present. CT ABDOMEN: Liver: Normal Spleen: Normal Pancreas: Normal Adrenal glands: The adrenal glands are normal. Gallbladder: Normal Kidneys: Couple of small subcentimeter hyperdense areas are within the inferior pole left kidney may be small angiomyolipomas.. No hydronephrosis is present. No cysts are present. No renal stones are identified. No hydroureter is evident. No ureteral stones are evident. Aorta: Vascular calcification is within the aorta. Inferior vena cava: Normal. CT PELVIS: Loops of bowel within the abdomen and pelvis are normal. There are loops of bowel which are incom pletely distended or lack oral contrast limiting their evaluation. Appendix: Not identified. No dilated tubular structure or inflammatory changes. Urinary bladder: Tiny amount of air is within the urinary bladder which can be from recent instrument ation. No radiopaque urinary bladder foreign bodies are identified. Urinary bladder is incompletely d istended. Some mild diffuse wall thickening cannot be excluded. Genitourinary structures: Uterus and ovaries are not identified. Osseous structures: Left hip pin is present. Degenerative changes at sacroiliac joints. Facet hypertr ophy and degenerative changes are present. Degenerative disc changes are present within the lumbar sp ine. Endplate spurring at the L3-4 level is present with an estimated 0.8 cm into the spinal canal. A P spinal canal stenosis however is not present. IMPRESSIONS: 1. No definite ureteral or renal stones. 2. No suspicious etiology to account for hematuria. 3. Minimal air within the urinary bladder can be related to recent instrumentation. 4. Some mild diffuse wall thickening may be related to incomplete distention. Consider cystitis withi n the differential.
== END | disposition home or self-care (01) ==
LOC: RADCTMAIN 11:57
PROVIDERS: ATTEND Urology
DX: R31.9 Hematuria, unspecified (principal)
CPT/HCPCS: 74176

== ENCOUNTER 2021-01-10 10:55 | Observation (INO) | payer MEDICARE ==
--- NOTE | 2021-01-10 12:13 | ED ---
General Adult HPI - General Chief complaint: Weakness Stated complaint: weakness Time Seen by Provider: 01/10/21 12:01 Source: patient, RN notes reviewed Mode of arrival: wheelchair Limitations: no limitations - History of Present Illness Initial comments: Patient is a pleasant 85-year-old female presenting to the emergency department with concern for urinary tract infection. Patient has generalized weakness. Patient has fatigue. Patient usually gets exhausted after just showering. Symptoms have been intermittent multiple times over the past year or more. Symptoms are generally associated with urinary tract infection. No isolated area of weakness. No fever. No confusion. - Related Data Home Medications Medication Instructions Recorded Confirmed Levothyroxine Sodium [Synthroid] 100 mcg PO DAILY 01/31/14 07/26/20 allopurinoL [Zyloprim] 100 mg PO DAILY 01/18/17 07/26/20 atenoloL [Tenormin] 25 mg PO CATHYUTHSA@199910/10/17 07/26/20 Pantoprazole [Protonix] 40 mg PO DAILY 08/16/19 07/26/20 Insulin Lispro [humaLOG Kwikpen] See Protocol SQ AC-TID 02/04/20 07/26/20 Ondansetron [Zofran] 4 mg PO Q8HR PRN 02/04/20 07/26/20 Apixaban [Eliquis] 2.5 mg PO BID 02/22/20 07/26/20 Torsemide [Demadex] 40 mg PO DAILY 02/22/20 07/26/20 Calcium Acetate [PhosLo] 667 mg PO DAILY 05/25/20 07/26/20 Mirtazapine [Remeron] 15 mg PO HS 05/25/20 07/26/20 Prednisolone Acetate/Pf 1 drop BOTH EYES HS 05/25/20 07/26/20 [Prednisolone Acet 1% Eye Drop] Simvastatin [Zocor] 20 mg PO HS 05/25/20 07/26/20 Acetaminophen [Tylenol Arthritis] 650 mg PO TID PRN 07/26/20 07/26/20 Carboxymethylcellulose Sodium 1 drop BOTH EYES BID 07/26/20 07/26/20 [Refresh Tears] Cholecalciferol (Vitamin D3) 125 mcg PO DAILY 07/26/20 07/26/20 [Vitamin D3] Diphenox-Atrop 2.5-0.025 mg 1 tab PO Q8H PRN 07/26/20 07/26/20 [Lomotil] Flecainide [Tambocor] 50 mg PO BID 07/26/20 07/26/20 Sodium Chloride 5% Ophth Soln 1 drop BOTH EYES HS 07/26/20 07/26/20 [Nikko 128] Virt-Caps 1mg 1 cap PO DAILY 07/26/20 07/26/20 Allergies Allergy/AdvReac Type Severity Reaction Status Date / Time amoxicillin Allergy Rash/Hives Verified 01/10/21 11:38 Penicillins Allergy Rash/Hives Verified 01/10/21 11:38 Sulfa (Sulfonamide Allergy Rash/Hives Verified 01/10/21 11:38 Antibiotics) meperidine HCl [From Demerol] AdvReac Nausea & Verified 01/10/21 11:38 Vomiting Review of Systems ROS Statement: Those systems with pertinent positive or pertinent negative responses have been documented in the HPI. ROS Other: All systems not noted in ROS Statement are negative. Constitutional: Denies: fever Eyes: Denies: eye pain ENT: Denies: ear pain Respiratory: Denies: cough Cardiovascular: Denies: chest pain Endocrine: Reports: fatigue Gastrointestinal: Denies: abdominal pain Genitourinary: Denies: dysuria Musculoskeletal: Denies: back pain Skin: Denies: rash Neurological: Reports: as per HPI. Denies: headache, confusion Past Medical History Past Medical History: Atrial Fibrillation, Heart Failure, Diabetes Mellitus, Deep Vein Thrombosis (DVT), GERD/Reflux, Hyperlipidemia, Hypertension, Myocardial Infarction (VT), Osteoarthritis (OA), Pulmonary Embolus (PE), Renal Disease, Rheumatoid Arthritis (RA), Sleep Apnea/CPAP/BIPAP, Thyroid Disorder Additional Past Medical History / Comment(s): Pt admitted to [facility] on 02/06/20 with UTI/ESBL/bacteremia. Other hx: IDDM type II, diabetic neuropathy bilateral hands/feet, ESRD with hemodialysis, has temporary boone cath for dialysis d/t R upper arm recent fistula surgery 02/01/20 in which fistula was repositioned, R arm/shoulder limited ROM since fistula surgery, current UTI, recurrent UTIs, pt was told she had a past VT d/t EKG, palpitations, SSS with pacer, HARRIS with Cpap, chronic back and bilateral knee pain, hypothyroid. Last Myocardial Infarction Date:: unknown History of Any Multi-Drug Resistant Organisms: ESBL Date of last positivie culture/infection: 02/04/20 MDRO Source:: ESBL URINE Past Surgical History: Bladder Surgery, Hysterectomy, Pacemaker Additional Past Surgical History / Comment(s): 02/01/20 R upper arm fistula repositioned, R chest boone cath, rectocele, cystocele, hemorrhoidectomy, bilateral leg vein strippings, bilateral cataract removal, Picc lines Past Anesthesia/Blood Transfusion Reactions: No Reported Reaction Type of Cardiac Device: Permanent Pacemaker Device Placement Date:: 01/2017 Past Psychological History: No Psychological Hx Reported Smoking Status: Never smoker Past Alcohol Use History: None Reported Past Drug Use History: None Reported - Past Family History Father Family Medical History: AFIB, AICD/Pacemaker, Congestive Heart Failure (CHF), Coronary Artery Disease (CAD), Diabetes Mellitus, Dialysis, Deep Vein Thrombosis (DVT), Hyperlipidemia, Hypertension, Myocardial Infarction (VT), Rheumatoid Arthritis (RA) Mother Family Medical History: Unable to Obtain Sister(s) Family Medical History: Cancer General Exam Limitations: no limitations General appearance: alert, in no apparent distress Head exam: Present: atraumatic Eye exam: Present: normal appearance, PERRL, EOMI Neck exam: Present: normal inspection Respiratory exam: Present: normal lung sounds bilaterally Cardiovascular Exam: Present: regular rate, normal rhythm GI/Abdominal exam: Present: soft, normal bowel sounds. Absent: distended, tenderness, guarding, rebound, rigid, pulsatile mass Extremities exam: Present: pedal edema. Absent: calf tenderness Neurological exam: Present: alert. Absent: motor sensory deficit Expanded Neurological exam: Present: protecting the airway Speech: Present: fluid speech Cranial nerves: EOM's Intact: Normal Motor strength exam: RUE: 5, LUE: 5, RLE: 5, LLE: 5 Eye Response: (4) open spontaneously Motor Response: (6) obeys commands Verbal Response: (5) oriented Psychiatric exam: Present: normal affect, normal mood Skin exam: Present: normal color Course Vital Signs 01/10/21 11:35 Temperature 98.2 F Pulse Rate 70 Respiratory 20 Rate Blood Pressure 123/53 O2 Sat by Pulse 98 Oximetry EKG Findings - EKG Comments: EKG Findings:: Paced rhythm with a rate of 70. QRS to a 4. QTC 504. QTC 544. Left axis. Nonspecific intraventricular block. Nonspecific ST-T. Medical Decision Making - Medical Decision Making Patient did miss dialysis today. Patient recently has been on both Cipro and Macrobid for urinary tract infection. Patient and family updated on results and plan. Case was discussed in detail with Dr. Holbrook, covering for Dr. Marvin who sent the patient in. He will admit. - Lab Data Result diagrams: 01/10/21 12:02 01/10/21 12:02 Lab Results 01/10/21 01/10/21 01/10/21 Range/Units 11:49 12:02 12:02 WBC 6.4 (3.8-10.6) k/uL RBC 3.36 L (3.80-5.40) m/uL Hgb 12.5 (11.4-16.0) gm/dL Hct 36.3 (34.0-46.0) % MCV 108.0 H (80.0-100.0) fL MCH 37.1 H (25.0-35.0) pg MCHC 34.3 (31.0-37.0) g/dL RDW 14.1 (11.5-15.5) % Plt Count 139 L (150-450) k/uL MPV 8.3 Neutrophils % 62 % Lymphocytes % 27 % Monocytes % 6 % Eosinophils % 2 % Basophils % 0 % Neutrophils # 3.9 (1.3-7.7) k/uL Lymphocytes # 1.7 (1.0-4.8) k/uL Monocytes # 0.4 (0-1.0) k/uL Eosinophils # 0.2 (0-0.7) k/uL Basophils # 0.0 (0-0.2) k/uL Macrocytosis Moderate PT 9.9 (9.0-12.0) sec INR 0.9 (<1.2) APTT 23.6 (22.0-30.0) sec Sodium (137-145) mmol/L Potassium (3.5-5.1) mmol/L Chloride (98-107) mmol/L Carbon Dioxide (22-30) mmol/L Anion Gap mmol/L BUN (7-17) mg/dL Creatinine (0.52-1.04) mg/dL Est GFR (CKD-EPI)AfAm (>60 ml/min/1.73 sqM) Est GFR (CKD-EPI)NonAf (>60 ml/min/1.73 sqM) Glucose (74-99) mg/dL Plasma Lactic Acid Gilberto (0.7-2.0) mmol/L Calcium (8.4-10.2) mg/dL Magnesium (1.6-2.3) mg/dL Total Bilirubin (0.2-1.3) mg/dL AST (14-36) U/L ALT (4-34) U/L Alkaline Phosphatase (38-126) U/L Total Protein (6.3-8.2) g/dL Albumin (3.5-5.0) g/dL TSH (0.465-4.680) mIU/L Free T4 (0.78-2.19) ng/dL Free T3 pg/mL (2.8-5.3) pg/ml Urine Color Yellow Urine Appearance Cloudy H (Clear) Urine pH 8.0 (5.0-8.0) Ur Specific [place] 1.019 (1.001-1.035) Urine Protein 1+ H (Negative) Urine Glucose (UA) Trace H (Negative) Urine Ketones Negative (Negative) Urine Blood Trace H (Negative) Urine Nitrite Negative (Negative) Urine Bilirubin Negative (Negative) Urine Urobilinogen <2.0 (<2.0) mg/dL Ur Leukocyte Esterase Large H (Negative) Urine RBC 5 (0-5) /hpf Urine WBC >182 H (0-5) /hpf Ur Squamous Epith Cells 3 (0-4) /hpf Urine Bacteria Moderate H (None) /hpf 01/10/21 01/10/21 Range/Units 12:02 12:02 WBC (3.8-10.6) k/uL RBC (3.80-5.40) m/uL Hgb (11.4-16.0) gm/dL Hct (34.0-46.0) % MCV (80.0-100.0) fL MCH (25.0-35.0) pg MCHC (31.0-37.0) g/dL RDW (11.5-15.5) % Plt Count (150-450) k/uL MPV Neutrophils % % Lymphocytes % % Monocytes % % Eosinophils % % Basophils % % Neutrophils # (1.3-7.7) k/uL Lymphocytes # (1.0-4.8) k/uL Monocytes # (0-1.0) k/uL Eosinophils # (0-0.7) k/uL Basophils # (0-0.2) k/uL Macrocytosis PT (9.0-12.0) sec INR (<1.2) APTT (22.0-30.0) sec Sodium 137 (137-145) mmol/L Potassium 4.2 (3.5-5.1) mmol/L Chloride 94 L (98-107) mmol/L Carbon Dioxide 34 H (22-30) mmol/L Anion Gap 9 mmol/L BUN 58 H (7-17) mg/dL Creatinine 4.70 H (0.52-1.04) mg/dL Est GFR (CKD-EPI)AfAm 9 (>60 ml/min/1.73 sqM) Est GFR (CKD-EPI)NonAf 8 (>60 ml/min/1.73 sqM) Glucose 199 H (74-99) mg/dL Plasma Lactic Acid Gilberto 0.9 (0.7-2.0) mmol/L Calcium 8.8 (8.4-10.2) mg/dL Magnesium 1.9 (1.6-2.3) mg/dL Total Bilirubin 0.4 (0.2-1.3) mg/dL AST 24 (14-36) U/L ALT 16 (4-34) U/L Alkaline Phosphatase 125 (38-126) U/L Total Protein 6.5 (6.3-8.2) g/dL Albumin 3.8 (3.5-5.0) g/dL TSH 0.601 (0.465-4.680) mIU/L Free T4 1.30 (0.78-2.19) ng/dL Free T3 pg/mL 3.1 (2.8-5.3) pg/ml Urine Color Urine Appearance (Clear) Urine pH (5.0-8.0) Ur Specific [place] (1.001-1.035) Urine Protein (Negative) Urine Glucose (UA) (Negative) Urine Ketones (Negative) Urine Blood (Negative) Urine Nitrite (Negative) Urine Bilirubin (Negative) Urine Urobilinogen (<2.0) mg/dL Ur Leukocyte Esterase (Negative) Urine RBC (0-5) /hpf Urine WBC (0-5) /hpf Ur Squamous Epith Cells (0-4) /hpf Urine Bacteria (None) /hpf - Radiology Data Radiology results: image reviewed (Chest x-ray shows no acute process) Disposition Clinical Impression: Urinary tract infection, ESRD (end stage renal disease) on dialysis Disposition: ADMITTED IP TO THIS HOSP Is patient prescribed a controlled substance at d/c from ED?: No Referrals: Liza Vargas MD [Primary Care Provider] - 1-2 days Decision Time: 13:43
[2021-01-10 12:29] LABS: Basophils % (A) 0 %; Eosinophils # (A) 0.2 k/uL (0-0.7); Eosinophils % (A) 2 %; HCT 36.3 % (34.0-46.0); HGB 12.5 gm/dL (11.4-16.0); Lymphocytes # (A) 1.7 k/uL (1.0-4.8); Lymphocytes % (A) 27 %; MCH 37.1 pg (25.0-35.0); MCHC 34.3 g/dL (31.0-37.0); Macrocytosis Moderate; Mean Platelet Volume 8.3; Monocytes # (A) 0.4 k/uL (0-1.0); Monocytes % (A) 6 %; Neutrophils # (A) 3.9 k/uL (1.3-7.7); Neutrophils % (A) 62 %; Platelet Count 139 k/uL (150-450); RBC 3.36 m/uL (3.80-5.40); RDW 14.1 % (11.5-15.5); WBC 6.4 k/uL (3.8-10.6)
[2021-01-10 12:33] LABS: Appearance,Urine Cloudy (Clear); Bacteria,Urine Moderate /hpf; Bilirubin,Urine Negative (Negative); Blood,Urine Trace (Negative); Color,Urine Yellow; Glucose,Urine (UA) Trace (Negative); Ketones,Urine Negative (Negative); Leukocyte Esterase,Urine Large (Negative); Nitrite,Urine Negative (Negative); Protein,Urine 1+ (Negative); RBC,Urine 5 /hpf (0-5); Specific Gravity,Urine 1.019 (1.001-1.035); Squamous Epithelial Cell,Urine 3 /hpf (0-4); Urobilinogen,Urine <2.0 mg/dL (<2.0); WBC,Urine >182 /hpf (0-5)
--- NOTE | 2021-01-10 12:39 | XR ---
EXAMINATION TYPE: XR chest 2V DATE OF EXAM: 01/10/2021 COMPARISON: 07/26/20 HISTORY: Shortness of breath TECHNIQUE: Frontal and lateral views of the chest are obtained. FINDINGS: Scattered senescent parenchymal changes noted. Hyperinflation compatible with COPD. No evidence for infiltrate. No evidence for atelectasis. Heart size is stable. Mediastinal structures are stable and grossly unremarkable. No evidence for hilar prominence. Degenerative changes dorsal spine. IMPRESSION: 1. No evidence for acute pulmonary disease.
[2021-01-10 12:44] LABS: Albumin 3.8 g/dL (3.5-5.0); Calcium 8.8 mg/dL (8.4-10.2); Magnesium 1.9 mg/dL (1.6-2.3); Potassium 4.2 mmol/L (3.5-5.1); Total Bilirubin 0.4 mg/dL (0.2-1.3); Total Protein 6.5 g/dL (6.3-8.2)
[2021-01-10 12:49] LABS: INR 0.9 (<1.2); Partial Thromboplastin Time 23.6 sec (22.0-30.0); Prothrombin Time 9.9 sec (9.0-12.0)
[2021-01-10 12:58] LABS: T4, Free (Free Thyroxine) 1.3 ng/dL (0.78-2.19)
[2021-01-10] MEDS ORDERED: NALOXONE 0.4 MG/ML 1 ML VIAL IV PRN ×2 (13:43→17:37)
[2021-01-10] MEDS: SODIUM CHLORIDE 0.9% 1,000 ML IV SCH (14:29)
[2021-01-10] MEDS ORDERED: CALCIUM CARBONATE 500 MG CHEWABLE PO PRN (17:38)
[2021-01-10] MEDS ORDERED: LOPERAMIDE 2 MG CAP PO PRN (17:38)
[2021-01-10] MEDS ORDERED: MIDODRINE 5 MG TAB PO PRN (17:38)
[2021-01-10] MEDS ORDERED: ONDANSETRON 4 MG TAB PO PRN (17:38)
--- NOTE | 2021-01-10 17:47 | P.HPIM ---
History of Present Illness H&P Date: 01/10/21 Chief Complaint: weakness 85-year-old female presenting to the emergency department with concern for urinary tract infection. Patient has generalized weakness ongoing for the past several months according to patient. She also has dysuria and itching with urination. No hematuria. No fevers or chills. According to patient she usually gets exhausted after just showering. She has history of recurrent urinary tract infections. Evaluation in the emergency department revealed recurrent UTI, she was admitted for further evaluation and management. Review of Systems Complete review of system performed, pertinent positives per HPI, otherwise negative Past Medical History Past Medical History: Atrial Fibrillation, Heart Failure, Diabetes Mellitus, Deep Vein Thrombosis (DVT), GERD/Reflux, Hyperlipidemia, Hypertension, Myocardial Infarction (CO), Osteoarthritis (OA), Pulmonary Embolus (PE), Renal Disease, Rheumatoid Arthritis (RA), Sleep Apnea/CPAP/BIPAP, Thyroid Disorder Additional Past Medical History / Comment(s): Pt admitted to [facility] on 02/06/20 with UTI/ESBL/bacteremia. Other hx: IDDM type II, diabetic neuropathy bilateral hands/feet, ESRD with hemodialysis, has temporary boone cath for dialysis d/t R upper arm recent fistula surgery 02/01/20 in which fistula was repositioned, R arm/shoulder limited ROM since fistula surgery, current UTI, recurrent UTIs, pt was told she had a past CO d/t EKG, palpitations, SSS with pacer, HARRIS with Cpap, chronic back and bilateral knee pain, hypothyroid. Last Myocardial Infarction Date:: unknown History of Any Multi-Drug Resistant Organisms: ESBL Date of last positivie culture/infection: 02/04/20 MDRO Source:: ESBL URINE Past Surgical History: Bladder Surgery, Hysterectomy, Pacemaker Additional Past Surgical History / Comment(s): 02/01/20 R upper arm fistula repositioned, R chest boone cath, rectocele, cystocele, hemorrhoidectomy, bilateral leg vein strippings, bilateral cataract removal, Picc lines Past Anesthesia/Blood Transfusion Reactions: No Reported Reaction Type of Cardiac Device: Permanent Pacemaker Device Placement Date:: 01/2017 Past Psychological History: No Psychological Hx Reported Smoking Status: Never smoker Past Alcohol Use History: None Reported Past Drug Use History: None Reported - Past Family History Father Family Medical History: AFIB, AICD/Pacemaker, Congestive Heart Failure (CHF), Coronary Artery Disease (CAD), Diabetes Mellitus, Dialysis, Deep Vein Thrombosis (DVT), Hyperlipidemia, Hypertension, Myocardial Infarction (CO), Rheumatoid Arthritis (RA) Mother Family Medical History: Unable to Obtain Sister(s) Family Medical History: Cancer Medications and Allergies Home Medications Medication Instructions Recorded Confirmed Type Levothyroxine Sodium [Synthroid] 100 mcg PO DAILY 01/31/14 01/10/21 History allopurinoL [Zyloprim] 100 mg PO DAILY 01/18/17 01/10/21 History atenoloL [Tenormin] 25 mg PO HS 10/10/17 01/10/21 History Pantoprazole [Protonix] 40 mg PO DAILY 08/16/19 01/10/21 History Insulin Lispro [humaLOG Kwikpen] See Protocol SQ AC-TID 02/04/20 01/10/21 History Ondansetron [Zofran] 4 mg PO Q8HR PRN 02/04/20 01/10/21 History Apixaban [Eliquis] 2.5 mg PO BID 02/22/20 01/10/21 History Torsemide [Demadex] 40 mg PO DAILY 02/22/20 01/10/21 History Calcium Acetate [PhosLo] 667 mg PO DAILY 05/25/20 01/10/21 History Mirtazapine [Remeron] 15 mg PO HS 05/25/20 01/10/21 History Simvastatin [Zocor] 20 mg PO HS 05/25/20 01/10/21 History Diphenox-Atrop 2.5-0.025 mg 1 tab PO Q8H 07/26/20 01/10/21 History [Lomotil] Flecainide [Tambocor] 50 mg PO BID 07/26/20 01/10/21 History Acetaminophen Tab [Tylenol Tab] 1,000 mg PO Q8H 01/10/21 01/10/21 History Atenolol [Tenormin] 50 mg PO DAILY 01/10/21 01/10/21 History Calcium Carbonate [Tums] 1,000 mg PO QID PRN 01/10/21 01/10/21 History Cholecalciferol [Vitamin D3 (25 100 mcg PO DAILY 01/10/21 01/10/21 History Mcg = 1000 Iu)] Folic Acid-Vit B Complex-Vit C 1 cap PO DAILY 01/10/21 01/10/21 History [Nephrocaps] Lidocaine-Prilocaine Cream [Emla 1 applic TOPICAL DAILY PRN 01/10/21 01/10/21 History Cream 2.5%/2.5%] Loperamide HCl [Imodium A-D] 2 mg PO DAILY 01/10/21 01/10/21 History Loperamide [Imodium] 2 - 4 mg PO QID PRN 01/10/21 01/10/21 History Midodrine [ProAmatine] 5 mg PO MOWEFR PRN 01/10/21 01/10/21 History Allergies Allergy/AdvReac Type Severity Reaction Status Date / Time amoxicillin Allergy Rash/Hives Verified 01/10/21 11:38 Penicillins Allergy Rash/Hives Verified 01/10/21 11:38 Sulfa (Sulfonamide Allergy Rash/Hives Verified 01/10/21 11:38 Antibiotics) meperidine HCl [From Demerol] AdvReac Nausea & Verified 01/10/21 11:38 Vomiting Physical Exam Vitals: Vital Signs Temp Pulse Resp BP Pulse Ox 01/10/21 14:51 98.4 F 70 18 135/67 100 01/10/21 14:29 89 16 164/75 98 01/10/21 11:35 98.2 F 70 20 123/53 98 Intake and Output 01/10/21 01/10/21 01/10/21 06:59 14:59 22:59 Other: Weight 87.997 kg Constitutional: No acute distress, conversant, pleasant Eyes:Anicteric sclerae, moist conjunctiva, no lid-lag, PERRLA, ENMT: Oropharynx clear, no erythema, exudates Neck: Supple, FROM, no masses, or JVD, No carotid bruits, No thyromegaly Lungs: Clear to auscultation, Clear to percussion, Normal respiratory effort, no accessory muscle use Cardiovascular: Heart regular in rate and rhythm, No murmurs, gallops, or rubs, No peripheral edema Abdominal: Soft, Nontender, no guarding, rebound or rigidity, Normoactive bowel sounds, No hepatomegaly, No splenomegaly, No palpable mass Skin: Normal temperature, tone, texture, turgor, no induration, No subcutaneous nodules, No rash, lesions, No ulcers Extremities: No digital cyanosis, No clubbing, Pedal pulses intact and symmetrical, Radial pulses intact and symmetrical, No calf tenderness Psychiatric: Alert and oriented to person, place and time, appropriate affect, intact judgement Neuro: Muscles Strength 5/5 in all 4 extremities, Sensation to light touch grossly present throughout, Cranial nerves II-XII grossly intact, no focal sensory deficits Results CBC & Chem 7: 01/10/21 12:02 01/10/21 12:02 Labs: Abnormal Lab Results - Last 24 Hours (Table) 01/10/21 01/10/21 01/10/21 Range/Units 11:49 12:02 12:02 RBC 3.36 L (3.80-5.40) m/uL MCV 108.0 H (80.0-100.0) fL MCH 37.1 H (25.0-35.0) pg Plt Count 139 L (150-450) k/uL Chloride 94 L (98-107) mmol/L Carbon Dioxide 34 H (22-30) mmol/L BUN 58 H (7-17) mg/dL Creatinine 4.70 H (0.52-1.04) mg/dL Glucose 199 H (74-99) mg/dL Urine Appearance Cloudy H (Clear) Urine Protein 1+ H (Negative) Urine Glucose (UA) Trace H (Negative) Urine Blood Trace H (Negative) Ur Leukocyte Esterase Large H (Negative) Urine WBC >182 H (0-5) /hpf Urine Bacteria Moderate H (None) /hpf Assessment and Plan Plan: Acute urinary tract infection/acute cystitis Start ceftriaxone 1 g IV daily Consult infectious disease due to recurrent nature of his infection Urine cultures and blood cultures End-stage renal disease Continue with dialysis Consult nephrology Diabetes type 2 Sliding scale insulin Last A1c in October was 5.7, no need to repeat Blood sugar checks every before meals and at bedtime History of sick sinus syndrome status post pacemaker History of atrial fibrillation History of DVT/PE All stable Resume meds Admit to observation
[2021-01-10] MEDS: ACETAMINOPHEN TAB 500 MG TAB PO SCH (19:49)
[2021-01-10] MEDS: APIXABAN 2.5 MG TABLET PO SCH (22:55)
[2021-01-10] MEDS: atenoloL 25 MG TAB PO SCH (22:55)
[2021-01-10] MEDS: ATORVASTATIN 10 MG TAB PO SCH (22:55)
[2021-01-10] MEDS: FLECAINIDE 50 MG TAB PO SCH (22:57)
[2021-01-10] MEDS: MIRTAZAPINE 15 MG TAB PO SCH (22:57)
[2021-01-10] MEDS: INSULIN ASPART (NovoLOG) 100 UNIT/ML VIAL SQ SCH (23:02)
[2021-01-11] MEDS: ACETAMINOPHEN TAB 500 MG TAB PO SCH ×4 (00:27→23:32)
[2021-01-11] MEDS: LEVOTHYROXINE 100 MCG TAB PO SCH (05:42)
[2021-01-11 07:30] LABS: Basophils % (A) 1 %; Eosinophils # (A) 0.2 k/uL (0-0.7); Eosinophils % (A) 3 %; HCT 38.5 % (34.0-46.0); HGB 12.7 gm/dL (11.4-16.0); Lymphocytes # (A) 1.6 k/uL (1.0-4.8); Lymphocytes % (A) 22 %; MCH 35.9 pg (25.0-35.0); MCV 108.8 fL (80.0-100.0); Macrocytosis Marked; Monocytes # (A) 0.4 k/uL (0-1.0); Monocytes % (A) 6 %; Neutrophils # (A) 4.8 k/uL (1.3-7.7); Neutrophils % (A) 67 %; Platelet Count 153 k/uL (150-450); RBC 3.54 m/uL (3.80-5.40); RDW 14.2 % (11.5-15.5); WBC 7.1 k/uL (3.8-10.6)
[2021-01-11 08:07] LABS: Glucose,Whole Blood 135 mg/dL (75-99)
[2021-01-11] MEDS: APIXABAN 2.5 MG TABLET PO SCH ×2 (08:08→20:29)
[2021-01-11] MEDS: allopurinoL 100 MG TAB PO SCH (08:08)
[2021-01-11] MEDS: CHOLECALCIFEROL 25 MCG (1000 IU) TABLET PO SCH (08:08)
[2021-01-11] MEDS: CALCIUM ACETATE 667 MG TAB PO SCH (08:08)
[2021-01-11] MEDS: FOLIC ACID-VIT B COMPLEX-VIT C 1 CAP PO SCH (08:08)
[2021-01-11] MEDS: FLECAINIDE 50 MG TAB PO SCH ×2 (08:08→20:28)
[2021-01-11] MEDS: PANTOPRAZOLE 40 MG TABLET PO SCH (08:09)
[2021-01-11] MEDS: TORSEMIDE 20 MG TAB PO SCH (08:09)
[2021-01-11] MEDS: INSULIN ASPART (NovoLOG) 100 UNIT/ML VIAL SQ SCH ×4 (08:14→20:45)
[2021-01-11] MEDS: atenoloL 50 MG TAB PO SCH (08:16)
--- NOTE | 2021-01-11 11:59 | P.NPCON ---
History of Present Illness - Reason for Consult end stage renal disease - History of Present Illness Reason for consultation: End-stage renal disease History of present illness: Patient is a 85-year-old female seen in consultation for end-stage renal disease. She is maintained on hemodialysis on Friday schedule. Patient missed yesterday's hemodialysis treatment at her outpatient dialysis center and was dialyzed here in the hospital. Patient came to the hospital due to burning with urination. She also complains of generalized weakness and fatigue. Denies fever or chills. No cough. No vomiting or diarrhea. Hemodynamically stable. She tested negative for coronavirus. Cultures are pending. She is receiving IV antibiotics. No chest pain or shortness of breath. No melena or hematochezia. No hematuria. Vital signs are stable. General: The patient appeared well nourished and normally developed. HEENT: Head exam is unremarkable. Neck is without jugular venous distension. LUNGS: Breath sounds decreased. HEART: Rate and Rhythm are regular. ABDOMEN: Soft, no distention. EXTREMITITES: No edema. Past Medical History Past Medical History: Atrial Fibrillation, Heart Failure, Diabetes Mellitus, Deep Vein Thrombosis (DVT), GERD/Reflux, Hyperlipidemia, Hypertension, Myocardial Infarction (RI), Osteoarthritis (OA), Pulmonary Embolus (PE), Renal Disease, Rheumatoid Arthritis (RA), Sleep Apnea/CPAP/BIPAP, Thyroid Disorder Additional Past Medical History / Comment(s): Pt admitted to [facility] on 02/06/20 with UTI/ESBL/bacteremia. Other hx: IDDM type II, diabetic neuropathy bilateral hands/feet, ESRD with hemodialysis, has temporary boone cath for dialysis d/t R upper arm recent fistula surgery 02/01/20 in which fistula was repositioned, R arm/shoulder limited ROM since fistula surgery, current UTI, recurrent UTIs, pt was told she had a past RI d/t EKG, palpitations, SSS with pacer, HARRIS with Cpap, chronic back and bilateral knee pain, hypothyroid. Last Myocardial Infarction Date:: unknown History of Any Multi-Drug Resistant Organisms: ESBL Date of last positivie culture/infection: 02/04/20 MDRO Source:: ESBL URINE Past Surgical History: Bladder Surgery, Hysterectomy, Pacemaker Additional Past Surgical History / Comment(s): 02/01/20 R upper arm fistula repositioned, R chest boone cath, rectocele, cystocele, hemorrhoidectomy, bilateral leg vein strippings, bilateral cataract removal, Picc lines Past Anesthesia/Blood Transfusion Reactions: No Reported Reaction Type of Cardiac Device: Permanent Pacemaker Device Placement Date:: 01/2017 Past Psychological History: No Psychological Hx Reported Additional Psychological History / Comment(s): Pt resides in her own home. Her vicky and son-in-law are temporarily staying with her to help out. She has a CPap, rolling walker, cane, life alert. 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 She recieves meals on wheels. Pt currently receiving home care thru [facility] Smoking Status: Never smoker Past Alcohol Use History: None Reported Past Drug Use History: None Reported - Past Family History Father Family Medical History: AFIB, AICD/Pacemaker, Congestive Heart Failure (CHF), Coronary Artery Disease (CAD), Diabetes Mellitus, Dialysis, Deep Vein Thrombosis (DVT), Hyperlipidemia, Hypertension, Myocardial Infarction (RI), Rheumatoid Arthritis (RA) Mother Family Medical History: Unable to Obtain Sister(s) Family Medical History: Cancer Medications and Allergies Home Medications Medication Instructions Recorded Confirmed Type Levothyroxine Sodium [Synthroid] 100 mcg PO DAILY 01/31/14 01/10/21 History allopurinoL [Zyloprim] 100 mg PO DAILY 01/18/17 01/10/21 History atenoloL [Tenormin] 25 mg PO HS 10/10/17 01/10/21 History Pantoprazole [Protonix] 40 mg PO DAILY 08/16/19 01/10/21 History Insulin Lispro [humaLOG Kwikpen] See Protocol SQ AC-TID 02/04/20 01/10/21 History Ondansetron [Zofran] 4 mg PO Q8HR PRN 02/04/20 01/10/21 History Apixaban [Eliquis] 2.5 mg PO BID 02/22/20 01/10/21 History Torsemide [Demadex] 40 mg PO DAILY 02/22/20 01/10/21 History Calcium Acetate [PhosLo] 667 mg PO DAILY 05/25/20 01/10/21 History Mirtazapine [Remeron] 15 mg PO HS 05/25/20 01/10/21 History Simvastatin [Zocor] 20 mg PO HS 05/25/20 01/10/21 History Diphenox-Atrop 2.5-0.025 mg 1 tab PO Q8H 07/26/20 01/10/21 History [Lomotil] Flecainide [Tambocor] 50 mg PO BID 07/26/20 01/10/21 History Acetaminophen Tab [Tylenol Tab] 1,000 mg PO Q8H 01/10/21 01/10/21 History Atenolol [Tenormin] 50 mg PO DAILY 01/10/21 01/10/21 History Calcium Carbonate [Tums] 1,000 mg PO QID PRN 01/10/21 01/10/21 History Cholecalciferol [Vitamin D3 (25 100 mcg PO DAILY 01/10/21 01/10/21 History Mcg = 1000 Iu)] Folic Acid-Vit B Complex-Vit C 1 cap PO DAILY 01/10/21 01/10/21 History [Nephrocaps] Lidocaine-Prilocaine Cream [Emla 1 applic TOPICAL DAILY PRN 01/10/21 01/10/21 History Cream 2.5%/2.5%] Loperamide HCl [Imodium A-D] 2 mg PO DAILY 01/10/21 01/10/21 History Loperamide [Imodium] 2 - 4 mg PO QID PRN 01/10/21 01/10/21 History Midodrine [ProAmatine] 5 mg PO MOWEFR PRN 01/10/21 01/10/21 History Allergies Allergy/AdvReac Type Severity Reaction Status Date / Time amoxicillin Allergy Rash/Hives Verified 01/10/21 11:38 Penicillins Allergy Rash/Hives Verified 01/10/21 11:38 Sulfa (Sulfonamide Allergy Rash/Hives Verified 01/10/21 11:38 Antibiotics) meperidine HCl [From Demerol] AdvReac Nausea & Verified 01/10/21 11:38 Vomiting Physical Exam Vitals: Vital Signs Temp Pulse Pulse Pulse Resp BP BP 01/11/21 08:00 70 18 01/11/21 04:00 97.9 F 70 18 121/62 01/10/21 19:59 98.3 F 69 17 152/61 01/10/21 19:47 97.6 F 67 18 152/61 01/10/21 14:51 98.4 F 70 18 135/67 01/10/21 14:29 89 16 164/75 Pulse Ox 01/11/21 08:00 01/11/21 04:00 97 01/10/21 19:59 98 01/10/21 19:47 01/10/21 14:51 100 01/10/21 14:29 98 Intake and Output 01/10/21 01/11/21 01/11/21 22:59 06:59 14:59 Intake Total 460 480 Output Total 1500 Balance -1500 460 480 Intake: Intake, IV Titration 100 Amount cefTRIAXone 1 gm In 100 Sodium Chloride 0.9% 50 ml @ 100 mls/hr IVPB Q12HR [facility] Rx#:[id number] Oral 360 480 Output: Hemodialysis 1500 Other: Voiding Method Toilet # Voids 1 1 # Bowel Movements 1 Weight 87.997 kg Results - Lab Results Most recent lab results Calcium 8.8 mg/dL (8.4-10.2) 01/10/21 12:02 Magnesium 1.9 mg/dL (1.6-2.3) 01/10/21 12:02 01/11/21 07:09 01/10/21 12:02 Assessment and Plan Plan: Assessment: 1. End-stage renal disease maintained on hemodialysis on Friday schedule. 2. UTI maintained on antibiotics. 3. Chronic kidney disease mineral bone disease maintained on PhosLo. 4. Chronic diastolic CHF. Plan: Hemodialysis tomorrow. Follow-up cultures. Thank you for the consultation. I will continue to follow the patient with you during her hospital stay.
[2021-01-11 12:39] LABS: Glucose,Whole Blood 161 mg/dL (75-99)
[2021-01-11] MEDS: SODIUM CHLORIDE 0.9% 1,000 ML IV SCH (13:01)
--- NOTE | 2021-01-11 13:14 | CONS ---
CONSULTATION DATE OF SERVICE: 01/11/2021 REASON FOR CONSULTATION: Recurrent urinary tract infection. HISTORY OF PRESENT ILLNESS: The patient is an 85-year-old female with a past medical history significant for recurrent UTI. The patient presented to [facility] ER with concern for generalized weakness and fatigue and patient complaining of . Patient's symptom have been going on for almost a year intermittently and mentioned infection. The patient did mention she did have burning of urine as well as some frequency but denies having any suprapubic or flank pain. The patient denies high-grade fever or chills. The patient denies having any headache. No chest pain. No shortness of breath. No cough. No nausea, vomiting. No abdominal pain and no diarrhea. With these symptoms, the patient was evaluated by the ER physician. On arrival to the ER, the patient was afebrile. The patient did have a normal white count. No left shift. The patient did have an elevated creatinine of 4.70. Did have a positive UA with large leukocyte esterase, more than 1-2 WBCs. Moderate bacteria with cultures pending. The patient did have a chest x-ray that was negative for any acute pulmonary process. The patient was started on Rocephin and has admitted to the hospital. Infectious Disease was consulted for further management of antibiotic therapy. REVIEW OF SYSTEMS: Positive points have been mentioned in HPI. Rest of systems are negative. PAST MEDICAL HISTORY: Significant for recurrent urinary tract infection, atrial fibrillation, heart failure, diabetes mellitus, DVT, hyperlipidemia, hypertension, MS, osteoarthritis, sigmoid diverticulitis and previous history of ESBL UTI. PAST SURGICAL HISTORY: Bladder surgery, hysterectomy, pacemaker placement. SOCIAL HISTORY: Denies smoking, drinking or drug use. FAMILY HISTORY: Father with history of atrial fibrillation, AICD placement. ALLERGIES: PENICILLIN, SULFA, AMOXICILLIN, MORPHINE with a rash. Tolerated Rocephin without any problem. PHYSICAL EXAMINATION: Blood pressure 121/62 with a pulse of 73, temperature of 97.9. She is 97% on room air. General description: The patient is an elderly female lying in bed in no distress. No tachypnea or accessory muscles of respiration use. HEENT: Examination shows no pallor or scleral icterus. Oral mucous membranes dry. NECK: Trachea central. No thyromegaly. LUNGS: Unlabored breathing. Clear to auscultation. No wheeze or crackles. HEART S1, S2. Regular rate and rhythm. ABDOMEN: Soft, no tenderness. No guarding. No rigidity. No organomegaly. EXTREMITIES: No edema of the feet. SKIN: No rashes or mass palpable. NEUROLOGICAL: Patient is awake, alert, oriented times three. Mood and affect normal. LABORATORY DATA: Hemoglobin is 12.5, white count 6.4, BUN of 58, creatinine 4.70, positive UA as mentioned above. The patient recently did have an abdominal ultrasound on 10/10/2020, did not show any evidence of hydronephrosis. She did have a CT of abdomen and pelvis on 11/23/2020, did not show any hydronephrosis, some question of cystitis. The patient last urine culture done on 12/19/2020 was Streptococcus agalactiae. DIAGNOSTIC IMPRESSION AND PLAN: Patient admitted to the hospital with generalized weakness, no energy and and history of recurrent UTI with a positive UA. The patient did have a recent CT as well as ultrasound, did not show any hydronephrosis or structure abnormality with concern for a symptomatic urinary tract infection, likely from enteric Gram-negative pathogen. PLAN: 1. Continue the patient on Rocephin . 2. Gentle hydration. 3. We will follow on clinical condition and cultures to further adjust medication if needed. Thank you for this consultation. We will follow this patient along with you. MMODL / IJN: [id number] /
--- NOTE | 2021-01-11 15:27 | P.PN ---
Subjective Progress Note Date: 01/11/21 Principal diagnosis: Dysuria Patient still having symptoms of dysuria and some itching with urination. Otherwise doing okay. Denied having any abdominal or chest pain. No fevers or chills. No nausea or vomiting. Objective - Vital Signs Vital signs: Vital Signs Temp 97.6 F 01/11/21 12:34 Pulse 73 01/11/21 12:34 Resp 16 01/11/21 12:34 BP 111/62 01/11/21 12:34 Pulse Ox 100 01/11/21 12:34 Intake & Output 01/10/21 01/11/21 01/11/21 18:59 06:59 18:59 Intake Total 460 600 Output Total 1500 Balance -1040 600 Weight 87.997 kg Intake: Intake, IV Titration 100 Amount cefTRIAXone 1 gm In 100 Sodium Chloride 0.9% 50 ml @ 100 mls/hr IVPB Q12HR [facility] Rx#:[id number] Oral 360 600 Output: Hemodialysis 1500 Other: Voiding Method Toilet # Voids 1 1 # Bowel Movements 1 - Exam Constitutional: No acute distress, conversant, pleasant Eyes:Anicteric sclerae, moist conjunctiva, no lid-lag, PERRLA, ENMT: Oropharynx clear, no erythema, exudates Neck: Supple, FROM, no masses, or JVD, No carotid bruits, No thyromegaly Lungs: Clear to auscultation, Clear to percussion, Normal respiratory effort, no accessory muscle use Cardiovascular: Heart regular in rate and rhythm, No murmurs, gallops, or rubs, No peripheral edema Abdominal: Soft, Nontender, no guarding, rebound or rigidity, Normoactive bowel sounds, No hepatomegaly, No splenomegaly, No palpable mass Skin: Normal temperature, tone, texture, turgor, no induration, No subcutaneous nodules, No rash, lesions, No ulcers Extremities: No digital cyanosis, No clubbing, Pedal pulses intact and symmetri agusto, Radial pulses intact and symmetrical, No calf tenderness Psychiatric: Alert and oriented to person, place and time, appropriate affect, intact judgement Neuro: Muscles Strength 5/5 in all 4 extremities, Sensation to light touch grossly present throughout, Cranial nerves II-XII grossly intact, no focal sensory deficits - Labs CBC & Chem 7: 01/11/21 07:01/10/21 12:02 Labs: Abnormal Lab Results - Last 24 Hours (Table) 01/11/21 01/11/21 01/11/21 Range/Units 07:09 08:05 12:38 RBC 3.54 L (3.80-5.40) m/uL MCV 108.8 H (80.0-100.0) fL MCH 35.9 H (25.0-35.0) pg Macrocytosis Marked A POC Glucose (mg/dL) 135 H 161 H (75-99) mg/dL Microbiology - Last 24 Hours (Table) 01/10/21 11:49 Urine Culture - Preliminary Urine,Voided Assessment and Plan Plan: Acute urinary tract infection/acute cystitis Continue ceftriaxone 1 g IV daily Seen by infectious disease due to recurrent nature of his infection Urine cultures and blood cultures pending End-stage renal disease Continue with dialysis Seen by nephrology Diabetes type 2 Sliding scale insulin Last A1c in October was 5.7, no need to repeat Blood sugar checks every before meals and at bedtime History of sick sinus syndrome status post pacemaker History of atrial fibrillation History of DVT/PE All stable Resume meds
[2021-01-11 16:03] LABS: African American GFR (CKD) 16.2 (60.0-200.0); Albumin 4.1 g/dL (3.80-4.90); Albumin/Globulin Ratio 1.71 (1.60-3.17); Anion Gap 15.6 mmol/L (4.00-12.00); BUN/Creat Ratio 10.69 Ratio (12.00-20.00); Calcium 8.9 mg/dL (8.7-10.3); Carbon Dioxide 24.4 mmol/L (21.6-31.8); Globulin 2.4 g/dL (1.6-3.3); Magnesium 2.5 mg/dL (1.5-2.4); Phosphorus 5.1 mg/dL (2.4-5.1); Potassium 4.4 mmol/L (3.5-5.5); Total Bilirubin 0.2 mg/dL (0.3-1.2); Total Protein 6.5 g/dL (6.2-8.2)
[2021-01-11 17:09] LABS: Glucose,Whole Blood 150 mg/dL (75-99)
[2021-01-11] MEDS: PHENAZOPYRIDINE 100 MG TAB PO SCH ×2 (17:18→20:28)
[2021-01-11] MEDS: atenoloL 25 MG TAB PO SCH (20:28)
[2021-01-11] MEDS: ATORVASTATIN 10 MG TAB PO SCH (20:28)
[2021-01-11] MEDS: MIRTAZAPINE 15 MG TAB PO SCH (20:29)
[2021-01-11 20:39] LABS: Glucose,Whole Blood 178 mg/dL (75-99)
[2021-01-12] MEDS: LEVOTHYROXINE 100 MCG TAB PO SCH (05:37)
[2021-01-12 07:34] LABS: Glucose,Whole Blood 124 mg/dL (75-99)
[2021-01-12] MEDS: INSULIN ASPART (NovoLOG) 100 UNIT/ML VIAL SQ SCH ×3 (08:34→17:31)
[2021-01-12] MEDS: APIXABAN 2.5 MG TABLET PO SCH (08:37)
[2021-01-12] MEDS: FLECAINIDE 50 MG TAB PO SCH (08:37)
[2021-01-12] MEDS: PANTOPRAZOLE 40 MG TABLET PO SCH (08:37)
[2021-01-12] MEDS: CALCIUM ACETATE 667 MG TAB PO SCH (08:37)
[2021-01-12] MEDS: PHENAZOPYRIDINE 100 MG TAB PO SCH ×2 (08:37→16:16)
[2021-01-12] MEDS: CHOLECALCIFEROL 25 MCG (1000 IU) TABLET PO SCH (08:37)
[2021-01-12] MEDS: ACETAMINOPHEN TAB 500 MG TAB PO SCH ×2 (08:38→16:16)
[2021-01-12] MEDS: allopurinoL 100 MG TAB PO SCH (08:38)
[2021-01-12] MEDS: FOLIC ACID-VIT B COMPLEX-VIT C 1 CAP PO SCH (08:39)
[2021-01-12] MEDS: atenoloL 50 MG TAB PO SCH (08:46)
[2021-01-12 12:19] LABS: Glucose,Whole Blood 136 mg/dL (75-99)
[2021-01-12] MEDS: SODIUM CHLORIDE 0.9% 1,000 ML IV SCH (13:00)
--- NOTE | 2021-01-12 13:11 | P.PN ---
Subjective Patient is seen in follow-up for end-stage renal disease. She is maintained on hemodialysis on Friday schedule. Denies any hematuria or dysuria. Hemodynamically stable. No chest pain or shortness of breath. Vital signs are stable. General: The patient appeared well nourished and normally developed. HEENT: Head exam is unremarkable. Neck is without jugular venous distension. h sounds decreased. HEART: Rate and Rhythm are regular. ABDOMEN: Soft, no distention. EXTREMITITES: No edema. Objective - Vital Signs Vital signs: Vital Signs Temp 97.6 F 01/12/21 04:53 Pulse 74 01/12/21 08:00 Resp 16 01/12/21 08:00 BP 121/62 01/12/21 04:53 Pulse Ox 96 01/12/21 04:53 Intake & Output 01/11/21 01/12/21 01/12/21 18:59 06:59 18:59 Intake Total 910 420 Balance 910 420 Intake: Intake, IV Titration 100 Amount cefTRIAXone 1 gm In 100 Sodium Chloride 0.9% 50 ml @ 100 mls/hr IVPB Q12HR [facility] Rx#:[id number] Oral 910 320 Other: Voiding Method Toilet Diaper Diaper # Voids 1 1 # Bowel Movements 1 - Labs CBC & Chem 7: 01/11/21 07:09 01/11/21 07:09 Labs: Abnormal Lab Results - Last 24 Hours (Table) 01/11/21 01/11/21 01/11/21 Range/Units 07:09 17:08 20:27 Anion Gap 15.60 H (4.00-12.00) mmol/L BUN 31.0 H (9.0-27.0) mg/dL Creatinine 2.9 H (0.6-1.5) mg/dL Est GFR (CKD-EPI)AfAm 16.2 L (60.0-200.0) Est GFR (CKD-EPI)NonAf 14.0 L (60.0-200.0) BUN/Creatinine Ratio 10.69 L (12.00-20.00) Ratio Glucose 134 H (70-110) mg/dL POC Glucose (mg/dL) 150 H 178 H (75-99) mg/dL Magnesium 2.5 H (1.5-2.4) mg/dL Total Bilirubin 0.2 L (0.3-1.2) mg/dL Alkaline Phosphatase 150 H (41-126) U/L 01/12/21 01/12/21 Range/Units 07:33 12:17 Anion Gap (4.00-12.00) mmol/L BUN (9.0-27.0) mg/dL Creatinine (0.6-1.5) mg/dL Est GFR (CKD-EPI)AfAm (60.0-200.0) Est GFR (CKD-EPI)NonAf (60.0-200.0) BUN/Creatinine Ratio (12.00-20.00) Ratio Glucose (70-110) mg/dL POC Glucose (mg/dL) 124 H 136 H (75-99) mg/dL Magnesium (1.5-2.4) mg/dL Total Bilirubin (0.3-1.2) mg/dL Alkaline Phosphatase (41-126) U/L Microbiology - Last 24 Hours (Table) 01/10/21 11:49 Urine Culture - Final Urine,Voided 01/10/21 14:27 Blood Culture - Preliminary Blood No Growth after 24 hours Assessment and Plan Plan: Assessment: 1. End-stage renal disease maintained on hemodialysis on Friday schedule. 2. UTI maintained on antibiotics. Urine culture positive for skin jason. 3. Chronic kidney disease mineral bone disease maintained on PhosLo. 4. Chronic diastolic CHF. Plan: Hemodialysis today.
[2021-01-12 13:16] VITALS: TEMP 97.7
[2021-01-12 13:23] VITALS: RESP 18
--- NOTE | 2021-01-12 14:36 | PN ---
PROGRESS NOTE DATE OF SERVICE: 01/12/2021 REASON FOR FOLLOWUP: Urinary tract infection. INTERVAL HISTORY: The patient is currently afebrile. The patient is breathing comfortably. Patient denies having any chest pain, shortness of breath or cough. No abdominal pain. Urinary symptoms have improved. PHYSICAL EXAMINATION: VITAL SIGNS: Blood pressure 126/58, pulse of 70, temperature 97.7, she is 98% on room air. GENERAL DESCRIPTION: An elderly female lying in bed in no distress. RESPIRATORY SYSTEM: Unlabored breathing, clear to auscultation anteriorly. HEART: S1, S2. Regular rate and rhythm. ABDOMEN: Soft, no tenderness. LABS: Urine is currently negative. Blood culture negative. DIAGNOSTIC IMPRESSION AND PLAN: Patient admitted to the hospital with some weakness. Did have urinary symptoms of burning. However, this patient is dialysis dependent and hardly makes any urine and urine will be concentrated. Patient with no fever or elevated white count, possible cystitis would be the other option, for which the patient received 3 days of IV Rocephin and make a short course of oral Ceftin. Discussed with the admitting physician working on discharge. MMODL / IJN: [id number] /
--- NOTE | 2021-01-12 14:42 | P.DS ---
Providers Date of admission: 01/10/21 13:51 Expected date of discharge: 01/12/21 Attending physician: sOman Mcmanus MD Consults: 01/10/21 13:41 Consult Physician Urgent Consulting Provider: Shaji Velazco Consult Reason/Comments: missed dialysis today Do you want consulting provider notified?: Yes 01/10/21 17:39 Consult Physician Routine Consulting Provider: Israel Ayon Consult Reason/Comments: uti Do you want consulting provider notified?: Yes Primary care physician: Liza Vargas MD Hospital Course: 85-year-old female presenting to the emergency department with concern for urinary tract infection. Patient has generalized weakness ongoing for the past several months according to patient. She also has dysuria and itching with urination. No hematuria. No fevers or chills. At baseline and she only urinates small amount of urine due to her chronic kidney disease. According to patient she usually gets exhausted after just showering. She has history of recurrent urinary tract infections. Evaluation in the emergency department revealed recurrent UTI, she was admitted for further evaluation and management. Upon admission nephrology was consulted for dialysis. She was started on ceftriaxone IV. Due to recurrent nature of her urinary tract infection she was seen by infectious disease who did not advise chronic outpatient antibiotics treatment. For her urinary symptoms have started empirically on Pyridium which improved her symptoms. Urine Cultures grew normal jason. She is currently doing well, will be discharged in stable condition. Plan - Discharge Summary Discharge Rx Participant: No New Discharge Prescriptions: New Cefdinir [Omnicef] 300 mg PO Q12HR 5 Days #10 capsule Phenazopyridine [Pyridium] 100 mg PO TID 10 Days #30 tab Continue Levothyroxine Sodium [Synthroid] 100 mcg PO DAILY allopurinoL [Zyloprim] 100 mg PO DAILY atenoloL [Tenormin] 25 mg PO HS Pantoprazole [Protonix] 40 mg PO DAILY Ondansetron [Zofran] 4 mg PO Q8HR PRN PRN Reason: Nausea And Vomiting Insulin Lispro [humaLOG Kwikpen] See Protocol SQ AC-TID Torsemide [Demadex] 40 mg PO DAILY Apixaban [Eliquis] 2.5 mg PO BID Calcium Acetate [PhosLo] 667 mg PO DAILY Mirtazapine [Remeron] 15 mg PO HS Simvastatin [Zocor] 20 mg PO HS Diphenox-Atrop 2.5-0.025 mg [Lomotil] 1 tab PO Q8H Flecainide [Tambocor] 50 mg PO BID Lidocaine-Prilocaine Cream [Emla Cream 2.5%/2.5%] 1 applic TOPICAL DAILY PRN PRN Reason: dialysis Loperamide HCl [Imodium A-D] 2 mg PO DAILY Loperamide [Imodium] 2 - 4 mg PO QID PRN PRN Reason: Diarrhea Acetaminophen Tab [Tylenol] 1,000 mg PO Q8H Midodrine [ProAmatine] 5 mg PO MOWEFR PRN PRN Reason: low heart rate Calcium Carbonate [Tums] 1,000 mg PO QID PRN PRN Reason: between meals and snacks Atenolol [Tenormin] 50 mg PO DAILY Folic Acid-Vit B Complex-Vit C [Nephrocaps] 1 cap PO DAILY Cholecalciferol [Vitamin D3 (25 Mcg = 1000 Iu)] 100 mcg PO DAILY Discharge Medication List Levothyroxine Sodium [Synthroid] 100 mcg PO DAILY 01/31/14 [History] allopurinoL [Zyloprim] 100 mg PO DAILY 01/18/17 [History] atenoloL [Tenormin] 25 mg PO HS 10/10/17 [History] Pantoprazole [Protonix] 40 mg PO DAILY 08/16/19 [History] Insulin Lispro [humaLOG Kwikpen] See Protocol SQ AC-TID 02/04/20 [History] Ondansetron [Zofran] 4 mg PO Q8HR PRN 02/04/20 [History] Apixaban [Eliquis] 2.5 mg PO BID 02/22/20 [History] Torsemide [Demadex] 40 mg PO DAILY 02/22/20 [History] Calcium Acetate [PhosLo] 667 mg PO DAILY 05/25/20 [History] Mirtazapine [Remeron] 15 mg PO HS 05/25/20 [History] Simvastatin [Zocor] 20 mg PO HS 05/25/20 [History] Diphenox-Atrop 2.5-0.025 mg [Lomotil] 1 tab PO Q8H 07/26/20 [History] Flecainide [Tambocor] 50 mg PO BID 07/26/20 [History] Acetaminophen Tab [Tylenol] 1,000 mg PO Q8H 01/10/21 [History] Atenolol [Tenormin] 50 mg PO DAILY 01/10/21 [History] Calcium Carbonate [Tums] 1,000 mg PO QID PRN 01/10/21 [History] Cholecalciferol [Vitamin D3 (25 Mcg = 1000 Iu)] 100 mcg PO DAILY 01/10/21 [History] Folic Acid-Vit B Complex-Vit C [Nephrocaps] 1 cap PO DAILY 01/10/21 [History] Lidocaine-Prilocaine Cream [Emla Cream 2.5%/2.5%] 1 applic TOPICAL DAILY PRN 01/10/21 [History] Loperamide HCl [Imodium A-D] 2 mg PO DAILY 01/10/21 [History] Loperamide [Imodium] 2 - 4 mg PO QID PRN 01/10/21 [History] Midodrine [ProAmatine] 5 mg PO MOWEFR PRN 01/10/21 [History] Cefdinir [Omnicef] 300 mg PO Q12HR 5 Days #10 capsule 01/12/21 [Rx] Phenazopyridine [Pyridium] 100 mg PO TID 10 Days #30 tab 01/12/21 [Rx] Follow up Appointment(s)/Referral(s): Liza Vargas MD [Primary Care Provider] - 1-2 days
[2021-01-12] MEDS: TORSEMIDE 20 MG TAB PO SCH (16:16)
[2021-01-12 16:49] VITALS: BP 128/72; PULSE 70
[2021-01-12 17:04] LABS: Glucose,Whole Blood 82 mg/dL (75-99)
== END 2021-01-12 18:14 ==
LOC: EC 10:55 → 5NMEDONC 13:51 → 4SSUR 15:08 → 5NMEDONC 15:09
PROVIDERS: ADMIT Internal Medicine; ATTEND Internal Medicine
DX: N30.00 Acute cystitis without hematuria (principal); I13.2 Hypertensive heart and chronic kidney disease with heart failure and with stage 5 chronic kidney disease, or end stage renal disease; N18.6 End stage renal disease; I50.32 Chronic diastolic (congestive) heart failure; I48.91 Unspecified atrial fibrillation; R53.83 Other fatigue; R53.1 Weakness; E11.40 Type 2 diabetes mellitus with diabetic neuropathy, unspecified; E11.22 Type 2 diabetes mellitus with diabetic chronic kidney disease; I49.5 Sick sinus syndrome; M89.8X9 Other specified disorders of bone, unspecified site; I25.2 Old myocardial infarction; E03.9 Hypothyroidism, unspecified; G47.33 Obstructive sleep apnea (adult) (pediatric); G89.29 Other chronic pain; M54.9 Dorsalgia, unspecified; M25.561 Pain in right knee; M25.562 Pain in left knee; R00.2 Palpitations; E78.5 Hyperlipidemia, unspecified; R79.89 Other specified abnormal findings of blood chemistry; M19.90 Unspecified osteoarthritis, unspecified site; Z20.822 Contact with and (suspected) exposure to COVID-19; Z95.828 Presence of other vascular implants and grafts; Z95.0 Presence of cardiac pacemaker; Z86.718 Personal history of other venous thrombosis and embolism; Z86.711 Personal history of pulmonary embolism; Z99.2 Dependence on renal dialysis; Z87.440 Personal history of urinary (tract) infections; Z99.89 Dependence on other enabling machines and devices; Z91.15 Patient's noncompliance with renal dialysis; Z87.19 Personal history of other diseases of the digestive system; Z16.24 Resistance to multiple antibiotics; Z90.710 Acquired absence of both cervix and uterus; Z79.890 Hormone replacement therapy; Z79.899 Other long term (current) drug therapy; Z79.4 Long term (current) use of insulin; Z79.01 Long term (current) use of anticoagulants; Z88.2 Allergy status to sulfonamides; Z88.0 Allergy status to penicillin; Z88.5 Allergy status to narcotic agent; Z82.49 Family history of ischemic heart disease and other diseases of the circulatory system; Z83.3 Family history of diabetes mellitus; Z82.61 Family history of arthritis; Z83.438 Family history of other disorder of lipoprotein metabolism and other lipidemia; Z80.9 Family history of malignant neoplasm, unspecified
CPT/HCPCS: 90970 ×2; 96366 ×2; 96365; 99285; 36415; 93005; 84439; 84481; 80053 ×2; 83605; 83735 ×2; 84100; 84443; 85025 ×2; 85610; 85730; 81001; 87040; 87086; 87635; 71046; G0378 ×3; J0696 ×3; 90935

== ENCOUNTER 2021-02-02 17:36 | Observation (INO) | payer MEDICARE ==
--- NOTE | 2021-02-02 18:09 | ED ---
General Adult HPI - General Chief complaint: Nausea/Vomiting/Diarrhea Stated complaint: nausea, vomiting Time Seen by Provider: 02/02/21 17:56 Source: patient, family, EMS, RN notes reviewed Mode of arrival: EMS Limitations: no limitations - History of Present Illness Initial comments: Patient is a pleasant 85-year-old female presenting to the emergency department with near syncopal episode, lightheadedness and nausea. Onset of symptoms was following dialysis. Patient does sometimes have nausea vomiting following dialysis however normally does not get lightheaded. Patient felt like she was given a past. Patient states nausea is resolved following Zofran by EMS. Patient still feels lightheaded and a little bit dizzy. Patient does not feel c onfused. No weakness. No chest pain or dyspnea. - Related Data Home Medications Medication Instructions Recorded Confirmed Levothyroxine Sodium [Synthroid] 100 mcg PO DAILY 01/31/14 02/02/21 allopurinoL [Zyloprim] 100 mg PO DAILY 01/18/17 02/02/21 atenoloL [Tenormin] 25 mg PO HS 10/10/17 02/02/21 Pantoprazole [Protonix] 40 mg PO DAILY 08/16/19 02/02/21 Insulin Lispro [humaLOG Kwikpen] See Protocol SQ AC-TID 02/04/20 02/02/21 Ondansetron [Zofran] 4 mg PO Q8HR PRN 02/04/20 02/02/21 Apixaban [Eliquis] 2.5 mg PO BID 02/22/20 02/02/21 Torsemide [Demadex] 40 mg PO DAILY 02/22/20 02/02/21 Calcium Acetate [PhosLo] 667 mg PO DAILY 05/25/20 02/02/21 Mirtazapine [Remeron] 15 mg PO HS 05/25/20 02/02/21 Simvastatin [Zocor] 20 mg PO HS 05/25/20 02/02/21 Diphenox-Atrop 2.5-0.025 mg 1 tab PO Q8H 07/26/20 02/02/21 [Lomotil] Flecainide [Tambocor] 50 mg PO BID 07/26/20 02/02/21 Acetaminophen Tab [Tylenol] 1,000 mg PO Q8H 01/10/21 02/02/21 Atenolol [Tenormin] 50 mg PO DAILY 01/10/21 02/02/21 Calcium Carbonate [Tums] 1,000 mg PO QID PRN 01/10/21 02/02/21 Cholecalciferol [Vitamin D3 (25 100 mcg PO DAILY 01/10/21 02/02/21 Mcg = 1000 Iu)] Folic Acid-Vit B Complex-Vit C 1 cap PO DAILY 01/10/21 02/02/21 [Nephrocaps] Lidocaine-Prilocaine Cream [Emla 1 applic TOPICAL DAILY PRN 01/10/21 02/02/21 Cream 2.5%/2.5%] Loperamide HCl [Imodium A-D] 2 mg PO DAILY 01/10/21 02/02/21 Loperamide [Imodium] 2 - 4 mg PO QID PRN 01/10/21 02/02/21 Midodrine [ProAmatine] 5 mg PO MOWEFR PRN 01/10/21 02/02/21 Allergies Allergy/AdvReac Type Severity Reaction Status Date / Time amoxicillin Allergy Rash/Hives Verified 02/02/21 19:15 Penicillins Allergy Rash/Hives Verified 02/02/21 19:15 Sulfa (Sulfonamide Allergy Rash/Hives Verified 02/02/21 19:15 Antibiotics) meperidine HCl [From Demerol] AdvReac Nausea & Verified 02/02/21 19:15 Vomiting Review of Systems ROS Statement: Those systems with pertinent positive or pertinent negative responses have been documented in the HPI. ROS Other: All systems not noted in ROS Statement are negative. Constitutional: Denies: fever Eyes: Denies: eye pain ENT: Denies: ear pain Respiratory: Denies: cough, dyspnea Cardiovascular: Denies: as per HPI Endocrine: Denies: fatigue Gastrointestinal: Reports: nausea. Denies: abdominal pain Genitourinary: Denies: dysuria Musculoskeletal: Denies: back pain Skin: Denies: rash Neurological: Reports: as per HPI. Denies: headache, weakness, confusion Past Medical History Past Medical History: Atrial Fibrillation, Heart Failure, Diabetes Mellitus, Deep Vein Thrombosis (DVT), GERD/Reflux, Hyperlipidemia, Hypertension, Myocardial Infarction (OR), Osteoarthritis (OA), Pulmonary Embolus (PE), Renal Disease, Rheumatoid Arthritis (RA), Sleep Apnea/CPAP/BIPAP, Thyroid Disorder Additional Past Medical History / Comment(s): Pt admitted to [facility] on 02/06/20 with UTI/ESBL/bacteremia. Other hx: IDDM type II, diabetic neuropathy bilateral hands/feet, ESRD with hemodialysis, has temporary boone cath for dialysis d/t R upper arm recent fistula surgery 02/01/20 in which fistula was repositioned, R arm/shoulder limited ROM since fistula surgery, current UTI, recurrent UTIs, pt was told she had a past OR d/t EKG, palpitations, SSS with pacer, HARRIS with Cpap, chronic back and bilateral knee pain, hypothyroid. Last Myocardial Infarction Date:: unknown History of Any Multi-Drug Resistant Organisms: ESBL Date of last positivie culture/infection: 02/04/20 MDRO Source:: ESBL URINE Past Surgical History: Bladder Surgery, Hysterectomy, Pacemaker Additional Past Surgical History / Comment(s): 02/01/20 R upper arm fistula repositioned, R chest boone cath, rectocele, cystocele, hemorrhoidectomy, bilateral leg vein strippings, bilateral cataract removal, Picc lines Past Anesthesia/Blood Transfusion Reactions: No Reported Reaction Type of Cardiac Device: Permanent Pacemaker Device Placement Date:: 01/2017 Past Psychological History: No Psychological Hx Reported Smoking Status: Never smoker Past Alcohol Use History: None Reported Past Drug Use History: None Reported - Past Family History Father Family Medical History: AFIB, AICD/Pacemaker, Congestive Heart Failure (CHF), Coronary Artery Disease (CAD), Diabetes Mellitus, Dialysis, Deep Vein Thrombosis (DVT), Hyperlipidemia, Hypertension, Myocardial Infarction (OR), Rheumatoid Arthritis (RA) Mother Family Medical History: Unable to Obtain Sister(s) Family Medical History: Cancer General Exam Limitations: no limitations General appearance: alert, in no apparent distress Head exam: Present: normocephalic Eye exam: Present: normal appearance, PERRL, EOMI, nystagmus (Horizontal nystagmus) ENT exam: Present: normal oropharynx Neck exam: Present: normal inspection Respiratory exam: Present: normal lung sounds bilaterally Cardiovascular Exam: Present: regular rate, normal rhythm GI/Abdominal exam: Present: soft. Absent: tenderness Extremities exam: Present: pedal edema (Reported as chronic and unchanged). Absent: calf tenderness Neurological exam: Present: alert, oriented X3, CN II-XII intact Expanded Neurological exam: Present: protecting the airway Patient oriented to: Present: person, place, time Speech: Present: fluid speech Sensory exam: Upper Extremity Light Touch: Normal, Lower Extremity Light Touch: Normal Motor strength exam: RUE: 5, LUE: 5, RLE: 4, LLE: 4 Eye Response: (4) open spontaneously Motor Response: (6) obeys commands Verbal Response: (5) oriented Psychiatric exam: Present: normal affect, normal mood Skin exam: Present: normal color Course Vital Signs 02/02/21 17:44 Temperature 97.3 F L Pulse Rate 71 Respiratory 16 Rate Blood Pressure 135/45 O2 Sat by Pulse 96 Oximetry EKG Findings - EKG Comments: EKG Findings:: Paced rhythm with a rate of 70. QRS to 100. QT 508. QTC 548. Left axis. Wide QRS complex. Nonspecific ST-T. Medical Decision Making - Medical Decision Making Patient reevaluated and still not feeling well. Patient states she is unable to get up or try to walk. Patient and family updated on results and plan. Case discussed with Dr. lara, covering for Dr. hemphill, who will admit. He would like to hold on consults at this time until he evaluates patient. Patient and family updated. - Lab Data Result diagrams: 02/02/21 18:07 02/02/21 18:15 Lab Results 02/02/21 02/02/21 02/02/21 Range/Units 18:07 18:15 18:15 WBC 5.6 (3.8-10.6) k/uL RBC 2.88 L (3.80-5.40) m/uL Hgb 10.0 L D (11.4-16.0) gm/dL Hct 31.2 L (34.0-46.0) % MCV 108.2 H (80.0-100.0) fL MCH 34.8 (25.0-35.0) pg MCHC 32.1 (31.0-37.0) g/dL RDW 16.0 H (11.5-15.5) % Plt Count 147 L (150-450) k/uL MPV 8.0 Neutrophils % 78 % Lymphocytes % 13 % Monocytes % 6 % Eosinophils % 2 % Basophils % 1 % Neutrophils # 4.4 (1.3-7.7) k/uL Lymphocytes # 0.7 L (1.0-4.8) k/uL Monocytes # 0.3 (0-1.0) k/uL Eosinophils # 0.1 (0-0.7) k/uL Basophils # 0.0 (0-0.2) k/uL Macrocytosis Marked A PT 10.1 (9.0-12.0) sec INR 0.9 (<1.2) APTT 22.6 (22.0-30.0) sec Sodium 136 L (137-145) mmol/L Potassium 3.5 (3.5-5.1) mmol/L Chloride 96 L (98-107) mmol/L Carbon Dioxide 33 H (22-30) mmol/L Anion Gap 7 mmol/L BUN 14 (7-17) mg/dL Creatinine 1.85 H (0.52-1.04) mg/dL Est GFR (CKD-EPI)AfAm 28 (>60 ml/min/1.73 sqM) Est GFR (CKD-EPI)NonAf 24 (>60 ml/min/1.73 sqM) Glucose 158 H (74-99) mg/dL Calcium 8.7 (8.4-10.2) mg/dL Magnesium 1.6 (1.6-2.3) mg/dL Total Bilirubin 0.4 (0.2-1.3) mg/dL AST 26 (14-36) U/L ALT 18 (4-34) U/L Alkaline Phosphatase 143 H (38-126) U/L Troponin I (0.000-0.034) ng/mL Total Protein 5.8 L (6.3-8.2) g/dL Albumin 3.4 L (3.5-5.0) g/dL 02/02/21 Range/Units 18:15 WBC (3.8-10.6) k/uL RBC (3.80-5.40) m/uL Hgb (11.4-16.0) gm/dL Hct (34.0-46.0) % MCV (80.0-100.0) fL MCH (25.0-35.0) pg MCHC (31.0-37.0) g/dL RDW (11.5-15.5) % Plt Count (150-450) k/uL MPV Neutrophils % % Lymphocytes % % Monocytes % % Eosinophils % % Basophils % % Neutrophils # (1.3-7.7) k/uL Lymphocytes # (1.0-4.8) k/uL Monocytes # (0-1.0) k/uL Eosinophils # (0-0.7) k/uL Basophils # (0-0.2) k/uL Macrocytosis PT (9.0-12.0) sec INR (<1.2) APTT (22.0-30.0) sec Sodium (137-145) mmol/L Potassium (3.5-5.1) mmol/L Chloride (98-107) mmol/L Carbon Dioxide (22-30) mmol/L Anion Gap mmol/L BUN (7-17) mg/dL Creatinine (0.52-1.04) mg/dL Est GFR (CKD-EPI)AfAm (>60 ml/min/1.73 sqM) Est GFR (CKD-EPI)NonAf (>60 ml/min/1.73 sqM) Glucose (74-99) mg/dL Calcium (8.4-10.2) mg/dL Magnesium (1.6-2.3) mg/dL Total Bilirubin (0.2-1.3) mg/dL AST (14-36) U/L ALT (4-34) U/L Alkaline Phosphatase (38-126) U/L Troponin I <0.012 (0.000-0.034) ng/mL Total Protein (6.3-8.2) g/dL Albumin (3.5-5.0) g/dL - Radiology Data Radiology results: report reviewed (Computed tomography scan the brain shows old frontal infarct. No acute intercranial abnormality.), image reviewed (Chest x- ray shows no acute process) Disposition Clinical Impression: Near syncope Disposition: ADMITTED IP TO THIS HOSP Is patient prescribed a controlled substance at d/c from ED?: No Referrals: Liza Vargas MD [Primary Care Provider] - 1-2 days Decision Time: 20:17
[2021-02-02 18:31] LABS: INR 0.9 (<1.2); Partial Thromboplastin Time 22.6 sec (22.0-30.0); Prothrombin Time 10.1 sec (9.0-12.0)
[2021-02-02 18:39] LABS: Albumin 3.4 g/dL (3.5-5.0); Calcium 8.7 mg/dL (8.4-10.2); Magnesium 1.6 mg/dL (1.6-2.3); Potassium 3.5 mmol/L (3.5-5.1); Total Bilirubin 0.4 mg/dL (0.2-1.3); Total Protein 5.8 g/dL (6.3-8.2)
[2021-02-02 18:55] LABS: Basophils % (A) 1 %; Eosinophils # (A) 0.1 k/uL (0-0.7); Eosinophils % (A) 2 %; HCT 31.2 % (34.0-46.0); Lymphocytes # (A) 0.7 k/uL (1.0-4.8); Lymphocytes % (A) 13 %; MCH 34.8 pg (25.0-35.0); MCHC 32.1 g/dL (31.0-37.0); MCV 108.2 fL (80.0-100.0); Macrocytosis Marked; Monocytes # (A) 0.3 k/uL (0-1.0); Monocytes % (A) 6 %; Neutrophils # (A) 4.4 k/uL (1.3-7.7); Neutrophils % (A) 78 %; Platelet Count 147 k/uL (150-450); RBC 2.88 m/uL (3.80-5.40); WBC 5.6 k/uL (3.8-10.6)
--- NOTE | 2021-02-02 19:03 | CT ---
EXAMINATION TYPE: CT brain wo con DATE OF EXAM: 02/02/2021 COMPARISON: 05/25/2020 HISTORY: Syncope, nausea, vomiting post dialysis. CT DLP: 1137.4 mGycm Automated exposure control for dose reduction was used. There is some cerebral cortical atrophy. There is 4 cm area of hypodensity left posterior frontal lob e consistent with old cortical infarct. There is no mass effect nor midline shift. There is no sign o f intracranial hemorrhage. There is hyperostosis frontalis. There is opacification left maxillary sinus with calcification and wall thickening consistent with a mucocele. The calvarium is intact. 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 No acute intracranial abnormality. Left maxil debora sinus mucocele unchanged.
--- NOTE | 2021-02-02 19:09 | XR ---
EXAMINATION TYPE: XR chest 2V DATE OF EXAM: 02/02/2021 COMPARISON: 01/10/2021 HISTORY: Syncope TECHNIQUE: FINDINGS: There is no heart failure nor confluent pneumonic infiltrate. Costophrenic angles are clear . There is left axillary pacemaker. There are chest leads. IMPRESSION: No active cardiopulmonary disease. No change.
[2021-02-02] MEDS ORDERED: MECLIZINE 12.5 MG TAB PO STA (19:30)
[2021-02-02] MEDS ORDERED: METOCLOPRAMIDE 5 MG/ML 2 ML VIAL IVP STA (19:30)
[2021-02-02] MEDS ORDERED: NALOXONE 0.4 MG/ML 1 ML VIAL IV PRN (20:17)
[2021-02-02] MEDS ORDERED: LORazepam 2 MG/ML INJ IV PRN (20:17)
[2021-02-02] MEDS ORDERED: ONDANSETRON 4 MG/2 ML VIAL IVP PRN (20:17)
[2021-02-03] MEDS ORDERED: CALCIUM CARBONATE 500 MG CHEWABLE PO PRN (00:04)
--- NOTE | 2021-02-03 00:04 | P.HPIM ---
History of Present Illness H&P Date: 02/02/21 The patient is an 85-year-old female with an extensive PMH of presented to the emergency room due to complaints of lightheadedness and blurred vision. The patient reports that she was in her usual state of health when she underwent her regular dialysis session this morning. She reports that they took 2 L in contrast to the 3-4 L of fluid there normally take, and that immediately following the dialysis session, she felt somewhat nauseous. She reports that she was able to leave the center and upon arrival at home, she was trying to get up out of her wheelchair when she felt severely lightheaded and nauseous. She felt as though she was going to faint and had some blurred vision but was able to sit back down and never lost consciousness. She reported having 4-5 episodes of vomiting, nonbloody nonbilious. She notes that her symptoms only came on when she tried to stand up and that she feels back to her baseline when she is laying down. At the time of interview, she reported feeling like her usual self and denied active complaints. She reports chronic dysuria for which she is fo llowing with the urologist and is scheduled to undergo a cystoscopy and bladder biopsy next week . Also reports chronic lower extremity edema that is unchanged. She denied weakness, numbness, tingling, facial asymmetry, or slurring of speech. Reports that her blurred vision has improved dramatically but continues to be slightly worse from her baseline although she reports long- standing poor eyesight. She denied chest pain, shortness of breath, headache, abdominal pain, or diarrhea. 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 Chest x-ray was unremarkable. EKG revealed an AV dual paced rhythm at 70 bpm. Laboratory evaluation was reviewed and was remarkable for hemoglobin 10.0, platelets 147, sodium 136, chloride 96, CO2 33, BUN 14, creatinine 1.85, glucose 158, troponin less than 0.012. Review of systems: Pertinent positives and negatives as discussed in HPI, a complete review of systems was performed and all other systems are negative. Physical examination: General: non toxic, no distress, appears at stated age, Obese Derm: no unusual rashes/lesions no unusual ecchymoses, warm, dry Head: atraumatic, normocephalic, symmetric Eyes: EOMI, no lid lag, anicteric sclera, pupils equal round reactive to light ENT: Nose and ears atraumatic, no thrush, no pharyngeal erythema Neck: No thyromegaly, no cervical lymphadenopathy, trachea midline, supple Mouth: no lip lesion, mucus membranes moist Cardiovascular: S1S2 reg, no murmur, positive posterior tibial pulse bilateral, 2+ bilateral lower extremity pitting edema, capillary refill less than 2 seconds Lungs: CTA bilateral, no rhonchi, no rales , no accessory muscle use Abdominal: soft, nontender to palpation, no guarding, no appreciable organ omegaly, normal bowel sounds Ext: no gross muscle atrophy, muscle strength 4 out of 5 in all 4 extremities grossly, no contractures, Neuro: CN II-XI grossly intact, light touch intact all 4 extremities, finger to nose within normal limits, Psych: Alert, oriented, appropriate affect Assessment/plan Near syncope, suspected secondary to hemodynamic changes following dialysis, possibly overdiuresis -Obtain orthostatic vital signs -Fall precautions -Cardiac monitoring Chronic conditions: Afib, HTN, HLD, CHF not in acute exacerbation -C/w home meds DVT prophylaxis -Eliquis The patient is admitted with an anticipated less than 2 midnight stay for evaluation of near syncope CODE STATUS: Full Code Discussed with: Patient, Daughter, Son-in-law Anticipated discharge date: in am Anticipated discharge place: Home A total of 35 minutes was spent on the care of this complex patient more than 50 % of the time was spent in counseling and care coordination. Past Medical History Past Medical History: Atrial Fibrillation, Heart Failure, Diabetes Mellitus, D eep Vein Thrombosis (DVT), GERD/Reflux, Hyperlipidemia, Hypertension, Myocardial Infarction (PA), Osteoarthritis (OA), Pulmonary Embolus (PE), Renal Disease, Rheumatoid Arthritis (RA), Sleep Apnea/CPAP/BIPAP, Thyroid Disorder Additional Past Medical History / Comment(s): Pt admitted to [facility] on 02/06/20 with UTI/ESBL/bacteremia. Other hx: IDDM type II, diabetic neuropathy bilateral hands/feet, ESRD with hemodialysis, has temporary boone cath for dialysis d/t R upper arm recent fistula surgery 02/01/20 in which fistula was repositioned, R arm/shoulder limited ROM since fistula surgery, current UTI, recurrent UTIs, pt was told she had a past PA d/t EKG, palpitations, SSS with pacer, HARRIS with Cpap, chronic back and bilateral knee pain, hypothyroid. Last Myocardial Infarction Date:: unknown History of Any Multi-Drug Resistant Organisms: ESBL Date of last positivie culture/infection: 02/04/20 MDRO Source:: ESBL URINE Past Surgical History: Bladder Surgery, Hysterectomy, Pacemaker Additional Past Surgical History / Comment(s): 02/01/20 R upper arm fistula repositioned, R chest boone cath, rectocele, cystocele, hemorrhoidectomy, bilateral leg vein strippings, bilateral cataract removal, Picc lines Past Anesthesia/Blood Transfusion Reactions: No Reported Reaction Type of Cardiac Device: Permanent Pacemaker Device Placement Date:: 01/2017 Past Psychological History: No Psychological Hx Reported Smoking Status: Never smoker Past Alcohol Use History: None Reported Past Drug Use History: None Reported - Past Family History Father Family Medical History: AFIB, AICD/Pacemaker, Congestive Heart Failure (CHF), Coronary Artery Disease (CAD), Diabetes Mellitus, Dialysis, Deep Vein Thrombosis (DVT), Hyperlipidemia, Hypertension, Myocardial Infarction (PA), Rheumatoid Arthritis (RA) Mother Family Medical History: Unable to Obtain Sister(s) Family Medical History: Cancer Medications and Allergies Home Medications Medication Instructions Recorded Confirmed Type Levothyroxine Sodium [Synthroid] 100 mcg PO DAILY 01/31/14 02/02/21 History allopurinoL [Zyloprim] 100 mg PO DAILY 01/18/17 02/02/21 History atenoloL [Tenormin] 25 mg PO HS 10/10/17 02/02/21 History Pantoprazole [Protonix] 40 mg PO DAILY 08/16/19 02/02/21 History Insulin Lispro [humaLOG Kwikpen] See Protocol SQ AC-TID 02/04/20 02/02/21 History Ondansetron [Zofran] 4 mg PO Q8HR PRN 02/04/20 02/02/21 History Apixaban [Eliquis] 2.5 mg PO BID 02/22/20 02/02/21 History Torsemide [Demadex] 40 mg PO DAILY 02/22/20 02/02/21 History Calcium Acetate [PhosLo] 667 mg PO DAILY 05/25/20 02/02/21 History Mirtazapine [Remeron] 15 mg PO HS 05/25/20 02/02/21 History Simvastatin [Zocor] 20 mg PO HS 05/25/20 02/02/21 History Diphenox-Atrop 2.5-0.025 mg 1 tab PO Q8H 07/26/20 02/02/21 History [Lomotil] Flecainide [Tambocor] 50 mg PO BID 07/26/20 02/02/21 History Acetaminophen Tab [Tylenol] 1,000 mg PO Q8H 01/10/21 02/02/21 History Atenolol [Tenormin] 50 mg PO DAILY 01/10/21 02/02/21 History Calcium Carbonate [Tums] 1,000 mg PO QID PRN 01/10/21 02/02/21 History Cholecalciferol [Vitamin D3 (25 100 mcg PO DAILY 01/10/21 02/02/21 History Mcg = 1000 Iu)] Folic Acid-Vit B Complex-Vit C 1 cap PO DAILY 01/10/21 02/02/21 History [Nephrocaps] Lidocaine-Prilocaine Cream [Emla 1 applic TOPICAL DAILY PRN 01/10/21 02/02/21 History Cream 2.5%/2.5%] Loperamide HCl [Imodium A-D] 2 mg PO DAILY 01/10/21 02/02/21 History Loperamide [Imodium] 2 - 4 mg PO QID PRN 01/10/21 02/02/21 History Midodrine [ProAmatine] 5 mg PO MOWEFR PRN 01/10/21 02/02/21 History Allergies Allergy/AdvReac Type Severity Reaction Status Date / Time amoxicillin Allergy Rash/Hives Verified 02/02/21 19:15 Penicillins Allergy Rash/Hives Verified 02/02/21 19:15 Sulfa (Sulfonamide Allergy Rash/Hives Verified 02/02/21 19:15 Antibiotics) meperidine HCl [From Demerol] AdvReac Nausea & Verified 02/02/21 19:15 Vomiting Physical Exam Vitals: Vital Signs Temp Pulse Pulse Resp BP BP Pulse Ox 02/02/21 22:41 97.6 F 71 16 147/60 97 02/02/21 22:03 97.8 F 70 18 118/52 96 02/02/21 21:04 96 02/02/21 17:44 97.3 F L 71 16 135/45 96 Intake and Output 02/02/21 02/02/21 02/03/21 14:59 22:59 06:59 Other: Weight 90.718 kg Results CBC & Chem 7: 02/02/21 18:07 02/02/21 18:15 Labs: Abnormal Lab Results - Last 24 Hours (Table) 02/02/21 02/02/21 Range/Units 18:07 18:15 RBC 2.88 L (3.80-5.40) m/uL Hgb 10.0 L D (11.4-16.0) gm/dL Hct 31.2 L (34.0-46.0) % MCV 108.2 H (80.0-100.0) fL RDW 16.0 H (11.5-15.5) % Plt Count 147 L (150-450) k/uL Lymphocytes # 0.7 L (1.0-4.8) k/uL Macrocytosis Marked A Sodium 136 L (137-145) mmol/L Chloride 96 L (98-107) mmol/L Carbon Dioxide 33 H (22-30) mmol/L Creatinine 1.85 H (0.52-1.04) mg/dL Glucose 158 H (74-99) mg/dL Alkaline Phosphatase 143 H (38-126) U/L Total Protein 5.8 L (6.3-8.2) g/dL Albumin 3.4 L (3.5-5.0) g/dL
[2021-02-03] MEDS: DIPHENOX-ATROP 2.5-0.025 MG 1 EACH TAB PO SCH ×4 (01:13→23:01)
[2021-02-03 03:11] LABS: Glucose,Whole Blood 189 mg/dL (75-99)
[2021-02-03] MEDS: LEVOTHYROXINE 100 MCG TAB PO SCH (06:00)
[2021-02-03 07:32] LABS: Glucose,Whole Blood 119 mg/dL (75-99)
[2021-02-03] MEDS: INSULIN ASPART (NovoLOG) 100 UNIT/ML VIAL SQ SCH ×4 (07:54→23:00)
[2021-02-03] MEDS: CHOLECALCIFEROL 25 MCG (1000 IU) TABLET PO SCH (08:20)
[2021-02-03] MEDS: atenoloL 50 MG TAB PO SCH (08:20)
[2021-02-03] MEDS: PANTOPRAZOLE 40 MG TABLET PO SCH (08:20)
[2021-02-03] MEDS: APIXABAN 2.5 MG TABLET PO SCH ×2 (08:21→23:01)
[2021-02-03] MEDS: allopurinoL 100 MG TAB PO SCH (08:21)
[2021-02-03] MEDS: FLECAINIDE 50 MG TAB PO SCH ×2 (08:21→23:01)
[2021-02-03] MEDS: FOLIC ACID-VIT B COMPLEX-VIT C 1 CAP PO SCH (08:21)
[2021-02-03] MEDS: CALCIUM ACETATE 667 MG TAB PO SCH (08:21)
--- NOTE | 2021-02-03 12:10 | P.PN ---
Subjective Progress Note Date: 02/03/21 Principal diagnosis: dizziness Patient is 85-year-old female with end-stage renal disease on hemodialysis Friday/Friday/Friday, diabetes, congestive heart failure, and multiple other comorbid conditions who presented to the emergency room due to lightheadedness and blurred vision. She underwent dialysis which returned home she felt very weak and though she was going to pass out. She states she started to fall and her family member caught her. In the ER her blood work was essentially at her baseline. Vital signs were stable. Arrangements are made for observation. Or thostatic vitals were negative. Telemetry was unremarkable. Patient continued to complain of some dizziness and had an unusual [id number] noted on the left and therefore neurology was consulted. Imaging CT brain: Old left posterior frontal lobe infarct Patient seen and examined. She reports that she had some dizziness and walking to the bathroom today, not nearly as severe as before. She has been on hemodialysis the last 1 year and states that she has been getting progressively weak. She has not had any courses of physical therapy. She states that her breathing is at baseline, she denies any chest pain. 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 She denies any personal history of stroke. General: non toxic, no distress, appears at stated age Derm: warm, dry Head: atraumatic, normocephalic, symmetric Eyes: EOMI, no lid lag, anicteric sclera Mouth: no lip lesion, mucus membranes moist Cardiovascular: S1S2 reg, no murmur, positive posterior tibial pulse bilateral, Lungs: CTA bilateral, no rhonchi, no rales , no accessory muscle use Abdominal: soft, nontender to palpation, no guarding, no appreciable organomegaly Ext: no gross muscle atrophy, 2+ edema, no contractures Neuro: CN II-XI grossly intact, muscle strength bilateral upper extremities 5 out of 5, muscle strength 3 out of 5 bilateral lower extremities, finger to nose intact, [id number] poor with left heel apply to right landrum but intact with right heel applied to left landrum, Babinski equivocal Psych: Alert, oriented, appropriate affect Dizziness with poor balance -Possibly secondary to hemodynamic changes of hemodialysis -Orthostatic vital signs negative -Consult neurology, likely cannot have MRI secondary to permanent pacemaker -Fall precautions -Continue with telemetry monitoring End-stage renal disease on hemodialysis Friday/Friday/Friday, anemia of end- stage renal disease -Outpatient follow-up with nephrology -Felix Reagan Diabetes mellitus -Sliding-scale insulin -Follow Accu-Cheks Chronic diastolic congestive heart failure not in exacerbation, ejection fraction 60-65% -Not chronically on RAMAKRISHNA inhibitor -Continue beta henok -Fluid status controlled with dialysis -Resume Demadex A. fib -Eliquis, atenolol -Flecainide Hypertension, controlled -Continue medications -Follow blood pressures Dyslipidemia -Lipitor Chronic: Hypothyroidism Home once cleared by neurology, continue with tele, check echo Objective - Vital Signs Vital signs: Vital Signs Temp 98.0 F 02/03/21 07:01 Pulse 70 02/03/21 07:01 Resp 14 02/03/21 07:01 BP 100/54 02/03/21 07:01 Pulse Ox 96 02/03/21 07:01 Intake & Output 02/02/21 02/03/21 02/03/21 18:59 06:59 18:59 Intake Total 350 Balance 350 Weight 90.718 kg 90.718 kg Intake: Oral 350 Other: Voiding Method Toilet Bedside Commode - Labs CBC & Chem 7: 02/02/21 18:07 02/02/21 18:15 Labs: Abnormal Lab Results - Last 24 Hours (Table) 02/02/21 02/02/21 02/03/21 Range/Units 18:07 18:15 03:10 RBC 2.88 L (3.80-5.40) m/uL Hgb 10.0 L D (11.4-16.0) gm/dL Hct 31.2 L (34.0-46.0) % MCV 108.2 H (80.0-100.0) fL RDW 16.0 H (11.5-15.5) % Plt Count 147 L (150-450) k/uL Lymphocytes # 0.7 L (1.0-4.8) k/uL Macrocytosis Marked A Sodium 136 L (137-145) mmol/L Chloride 96 L (98-107) mmol/L Carbon Dioxide 33 H (22-30) mmol/L Creatinine 1.85 H (0.52-1.04) mg/dL Glucose 158 H (74-99) mg/dL POC Glucose (mg/dL) 189 H (75-99) mg/dL Alkaline Phosphatase 143 H (38-126) U/L Total Protein 5.8 L (6.3-8.2) g/dL Albumin 3.4 L (3.5-5.0) g/dL 02/03/21 Range/Units 07:30 RBC (3.80-5.40) m/uL Hgb (11.4-16.0) gm/dL Hct (34.0-46.0) % MCV (80.0-100.0) fL RDW (11.5-15.5) % Plt Count (150-450) k/uL Lymphocytes # (1.0-4.8) k/uL Macrocytosis Sodium (137-145) mmol/L Chloride (98-107) mmol/L Carbon Dioxide (22-30) mmol/L Creatinine (0.52-1.04) mg/dL Glucose (74-99) mg/dL POC Glucose (mg/dL) 119 H (75-99) mg/dL Alkaline Phosphatase (38-126) U/L Total Protein (6.3-8.2) g/dL Albumin (3.5-5.0) g/dL
[2021-02-03 12:27] LABS: Glucose,Whole Blood 161 mg/dL (75-99)
[2021-02-03] MEDS ORDERED: ASPIRIN 81 MG PO SCH (12:45)
--- NOTE | 2021-02-03 13:04 | P.CNNES ---
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 Neurology is consulted for off balance and poor heel to landrum over the left. Patient stated that she's been having some nausea and vomiting following dialysis with sometimes she gets does not get lightheadedness which the she felt lightheaded. She also felt little bit dizzy. In the ED she received Zofran and she felt her nausea has improved. According to patient she stated that she's been having dizzy since yesterday after dialysis and she felt like it's mostly with movement. She's also been feeling nauseous. She said that she has chronic unsteady walk-in ends been going on for for some time but nothing recent. She denies of any double double vision, any difficulty getting her words out, any focal weakness. She denies of any new numbness. Today she feels that this is improved but get worse and the one she's morning around. She stated that that she usually uses a 4 wheeled walker at baseline in which she is at dialysis as she basically is wheeled by wheelchair. She denies being told that she had the an old stroke in the past. She said that she has significant arthritis throughout her body. She has bilateral knee pain and hip pain. Some of the home medication are:Eliquis 2.5 mg 1 tablet twice a day, atenolol, folic acid vitamin B complex, insulin, Synthroid, midodrine, Remeron 50 mg daily at bedtime, Zocor 20 mg daily, allopurinol, atenolol, vitamin D3. Some other workup in the hospital consisted of: CT of the head is reported as old left posterior frontal lobe infarct with the out change. No acute intracranial abnormality. Left maxillary sinus at mucoc renetta unchanged. EKG is reported as AV dual paced rhythm with occasional ventricular paced complexes at. Abnormal EKG. Initial blood cells 5.6 which is considered normal. Hemoglobin 7.0 which is slightly low and MCV is 108.2 which is elevated that. The platelets 147 which is a mildly low. Sodium is 136 which is minimally low. Creatinine is 1.85 with his slightly elevated but the patient is known to have end-stage renal disease on dialysis. The glucose on presentation is 158. Patient had orthostatics: Supine and the blood pressure is 120/50: Sitting is 113/47 and standing is 119/44. The only heart rate that was recorded during that time, the states 70 bites and doesn't say whether was sitting is sitting or standing. Review of Systems Review of system: The 12 point system was reviewed and apparent positive and negative per HPI. Past Medical History Past Medical History: Atrial Fibrillation, Heart Failure, Diabetes Mellitus, Deep Vein Thrombosis (DVT), GERD/Reflux, Hyperlipidemia, Hypertension, My ocardial Infarction (IL), Osteoarthritis (OA), Pulmonary Embolus (PE), Renal Disease, Rheumatoid Arthritis (RA), Sleep Apnea/CPAP/BIPAP, Thyroid Disorder Additional Past Medical History / Comment(s): Pt admitted to [facility] on 02/06/20 with UTI/ESBL/bacteremia. Other hx: IDDM type II, diabetic neuropathy bilateral hands/feet, ESRD with hemodialysis, has temporary boone cath for dialysis d/t R upper arm recent fistula surgery 02/01/20 in which fistula was repositioned, R arm/shoulder limited ROM since fistula surgery, current UTI, recurrent UTIs, pt was told she had a past IL d/t EKG, palpitations, SSS with pacer, HARRIS with Cpap, chronic back and bilateral knee pain, hypothyroid. Last Myocardial Infarction Date:: unknown History of Any Multi-Drug Resistant Organisms: ESBL Date of last positivie culture/infection: 02/04/20 MDRO Source:: ESBL URINE Past Surgical History: Bladder Surgery, Hysterectomy, Pacemaker Additional Past Surgical History / Comment(s): 02/01/20 R upper arm fistula repositioned, R chest boone cath, rectocele, cystocele, hemorrhoidectomy, bilateral leg vein strippings, bilateral cataract removal, Picc lines Past Anesthesia/Blood Transfusion Reactions: No Reported Reaction Type of Cardiac Device: Permanent Pacemaker Device Placement Date:: 01/2017 Past Psychological History: No Psychological Hx Reported Smoking Status: Never smoker Past Alcohol Use History: None Reported Past Drug Use History: None Reported - Past Family History Father Family Medical History: AFIB, AICD/Pacemaker, Congestive Heart Failure (CHF), Coronary Artery Disease (CAD), Diabetes Mellitus, Dialysis, Deep Vein Thrombosis (DVT), Hyperlipidemia, Hypertension, Myocardial Infarction (IL), Rheumatoid Arthritis (RA) Mother Family Medical History: Unable to Obtain Sister(s) Family Medical History: Cancer Medications and Allergies Home Medications Medication Instructions Recorded Confirmed Type Levothyroxine Sodium [Synthroid] 100 mcg PO DAILY 01/31/14 02/02/21 History allopurinoL [Zyloprim] 100 mg PO DAILY 01/18/17 02/02/21 History atenoloL [Tenormin] 25 mg PO HS 10/10/17 02/02/21 History Pantoprazole [Protonix] 40 mg PO DAILY 08/16/19 02/02/21 History Insulin Lispro [humaLOG Kwikpen] See Protocol SQ AC-TID 02/04/20 02/02/21 History Ondansetron [Zofran] 4 mg PO Q8HR PRN 02/04/20 02/02/21 History Apixaban [Eliquis] 2.5 mg PO BID 02/22/20 02/02/21 History Torsemide [Demadex] 40 mg PO DAILY 02/22/20 02/02/21 History Calcium Acetate [PhosLo] 667 mg PO DAILY 05/25/20 02/02/21 History Mirtazapine [Remeron] 15 mg PO HS 05/25/20 02/02/21 History Simvastatin [Zocor] 20 mg PO HS 05/25/20 02/02/21 History Diphenox-Atrop 2.5-0.025 mg 1 tab PO Q8H 07/26/20 02/02/21 History [Lomotil] Flecainide [Tambocor] 50 mg PO BID 07/26/20 02/02/21 History Acetaminophen Tab [Tylenol] 1,000 mg PO Q8H 01/10/21 02/02/21 History Atenolol [Tenormin] 50 mg PO DAILY 01/10/21 02/02/21 History Calcium Carbonate [Tums] 1,000 mg PO QID PRN 01/10/21 02/02/21 History Cholecalciferol [Vitamin D3 (25 100 mcg PO DAILY 01/10/21 02/02/21 History Mcg = 1000 Iu)] Folic Acid-Vit B Complex-Vit C 1 cap PO DAILY 01/10/21 02/02/21 History [Nephrocaps] Lidocaine-Prilocaine Cream [Emla 1 applic TOPICAL DAILY PRN 01/10/21 02/02/21 History Cream 2.5%/2.5%] Loperamide HCl [Imodium A-D] 2 mg PO DAILY 01/10/21 02/02/21 History Loperamide [Imodium] 2 - 4 mg PO QID PRN 01/10/21 02/02/21 History Midodrine [ProAmatine] 5 mg PO MOWEFR PRN 01/10/21 02/02/21 History Allergies Allergy/AdvReac Type Severity Reaction Status Date / Time amoxicillin Allergy Rash/Hives Verified 02/02/21 19:15 Penicillins Allergy Rash/Hives Verified 02/02/21 19:15 Sulfa (Sulfonamide Allergy Rash/Hives Verified 02/02/21 19:15 Antibiotics) meperidine HCl [From Demerol] AdvReac Nausea & Verified 02/02/21 19:15 Vomiting Physical Examination - Vital Signs Vital Signs: Vital Signs Temp Pulse Pulse Resp BP BP BP 02/03/21 07:01 98.0 F 70 14 100/54 02/03/21 02:00 97.9 F 70 18 113/47 02/02/21 22:41 97.6 F 71 16 147/60 02/02/21 22:03 97.8 F 70 18 118/52 02/02/21 21:04 02/02/21 17:44 97.3 F L 71 16 135/45 BP BP Pulse Ox 02/03/21 07:01 96 02/03/21 02:00 119/44 120/50 98 02/02/21 22:41 97 02/02/21 22:03 96 02/02/21 21:04 96 02/02/21 17:44 96 Intake and Output 02/02/21 02/03/21 02/03/21 22:59 06:59 14:59 Intake Total 350 Balance 350 Intake: Oral 350 Other: Voiding Method Toilet Bedside Commode Weight 90.718 kg GENERAL: The patient is a morbid obese woman lying in bed and is not in acute distress. CHEST: The heart rate is regular rate rhythm. No murmurs to auscultation. No carotid bruit bilaterally. LUNG: Clear to auscultation bilaterally no wheezing noted throughout. Not labored breathing. ABDOMEN/GI: Bowel sounds present in all 4 quadrants. No tenderness to palpation throughout. NEUROLOGICAL: Higher mental function: The patient is awake, alert, oriented to self, place and time. Patient is following commands. No aphasia and no neglect. Cranial nerves: The pupils are round, equal and reactive to light and accommodation. Visual matthews are full to confrontation throughout. Extraocular movement is intact no nystagmus is noted. Facial sensation is normal to touch throughout. The facial strength is normal throughout. Hearing is moderately to severely decrease and worse over the right > left (has old hearing loss over bilateral ears right >left). Tongue is midline and moved [id number] without any difficulty. No dysarthria is noted. Shoulder shrug is normal bilaterally. Motor: Gait is deferred because of dizziness. The strength is 5 over 5 throughout upper while lowers are limited because of pain. In the bilateral proximal lowers she had 4/5 and limited because of pain while distal are 5/5. Normal tone and bulk. Cerebellum: Normal finger to nose bilaterally while bilateral lower (heel to landrum) has ataxia but limited because of pain. Sensation: Sensation is normal to touch throughout. Reflexes (right/left): 1+ throughout. Plantars are mute bilaterally. Results Coagulation study: PT of 10.1, INR 0.9 and PTT of 22.6 Voss virus PCR was not detected. - Laboratory Findings CBC and BMP: 02/02/21 18:07 02/02/21 18:15 Abnormal Lab Findings: Abnormal Labs 02/02/21 02/02/21 02/03/21 18:07 18:15 03:10 RBC 2.88 L Hgb 10.0 L D Hct 31.2 L MCV 108.2 H RDW 16.0 H Plt Count 147 L Lymphocytes # 0.7 L Macrocytosis Marked A Sodium 136 L Chloride 96 L Carbon Dioxide 33 H Creatinine 1.85 H Glucose 158 H POC Glucose (mg/dL) 189 H Alkaline Phosphatase 143 H Total Protein 5.8 L Albumin 3.4 L 02/03/21 07:30 RBC Hgb Hct MCV RDW Plt Count Lymphocytes # Macrocytosis Sodium Chloride Carbon Dioxide Creatinine Glucose POC Glucose (mg/dL) 119 H Alkaline Phosphatase Total Protein Albumin Assessment and Plan Assessment: * Acute nausea, vomiting and vertigo: Seems more positional vertigo vs post di alysis effect. Cannot rule out stroke. * Chronic unsteady gait, bilateral ataxia: Unknown exactly. There is multiple factors that cause cause this diabetic peripheral neuropathy vs Vitamin deficiency (B12, folate or copper defiency) vs thoracic or lumbar myelopathy. Cannot defientely rule out acute stroke but unlikely. 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 (patient is unaware of it) * End stage renal disease on dialysis * Macrocytic anemia * Heart failure * Diabetes * Diabetic peripheral neuropathy * Atrial fibrillation on Eliquis * History of DVT * History of pulmonary embolism * Hypertension * Hyperlipidemia * History of myocardial infarction * Sick sinus syndrome and atrial fibrillation status post pacemaker * Sleep apnea on CPAP * Hypothyroidism * Near legally blind of both eyes (she was notified of this by her Ophthamologist) * Chronic Hearing loss of bilateral ears (right >left) * Rheumatoid Arthritis * Morbid Obesity Plan: * I ordered CT angiography of the head and neck and that to be coordinated with dialysis. * Cannot get MRI Brain because of pacemaker. * Currently the patient is on Eliquis 2.5 mg 1 tablet twice a day as well as Lipitor 10 mg daily at bedtime. Recommend possibly consideration of adding aspirin 81mg daily in addition to the Eliquis because of strokelike symptoms and the we'll defer the addition of aspirin to the primary team if its safe because of anemia. I increased the Lipitor from 10 to 40 mg daily at bedtime for secondary stroke prophylaxis. * Recommend 2-D echo, lipid panel, TSH level. Last HbA1c is 5.8 (10/12/2020). * Continue continuous cardiac monitoring. Placed on every 4 hours neuro checks. * Consulted physical therapy and occupational therapy. * Regarding the macrocytic anemia I ordered vitamin B12, folate, methylmalonic acid and copper level. * If work-up are negative, will consider CT thoracic and lumbar down the line. * Recommend EMG with NCS as outpatient. * Will defer the rest of medical management to the primary team. Upon discharge, the patient needs to follow-up with a neurologist as outpatient within 1-2 weeks. The plan is discussed with the primary team and her nurse. Thank you for the consultation. Jamaal Lux MD Neuro-Hospitalist Time with Patient: Greater than 30
--- NOTE | 2021-02-03 16:16 | CT ---
EXAMINATION TYPE: CT angio head neck DATE OF EXAM: 02/03/2021 COMPARISON: None HISTORY: Near syncope CT DLP: 397.3 mGycm Automated exposure control for dose reduction was used. CONTRAST: Performed with IV Contrast, patient injected with 100 mL of Isovue 370. There are 3-D post processed images. Images obtained from the aortic arch to the vertex of the brain with contrast. Thoracic aorta is atheromatous. There is plaque formation at the aortic arch. There is normal branchi ng pattern of the great vessels on the aortic arch. There is arterial flow in both subclavian arterie s. There is some stenosis of the proximal right subclavian artery. Similar change is also seen proxim al left subclavian artery with probably more than 50% stenosis. 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 There is arterial flow in the common internal and external carotid arteries bilaterally. There is pro bably more than 85% stenosis proximal left internal carotid artery. Similar plaque formation is seen and approximate 75% stenosis proximal right internal carotid artery. There is arterial flow in both v ertebral arteries. There is arterial flow in the vertebrobasilar artery system. There is arterial flow in the anterior middle and posterior cerebral arteries. There is no mass effec t. I see no evidence of intracranial arterial hemodynamic stenosis. There is no sign of aneurysm or n eovascularity. There is normal enhancement of the venous sinuses. IMPRESSION: No significant intracranial angiographic abnormality. Hemodynamic stenosis seen in the internal carotid arteries bilaterally near the carotid artery bifurc ations. Moderate plaque formation. High density opacification left maxillary sinus consistent with mu cocele unchanged.
--- NOTE | 2021-02-03 16:35 | ECHOF ---
Referral Reason:presyncope, chf, a fib MEASUREMENTS -------- HEIGHT: 165.1 cm WEIGHT: 90.7 kg BP: 119/44 RVIDd: 3.9 cm (< 3.3) IVSd: 1.3 cm (0.6 - 1.1) LVIDd: 4.9 cm (3.9 - 5.3) LVPWd: 1.4 cm (0.6 - 1.1) IVSs: 2.1 cm LVIDs: 2.9 cm LVPWs: 1.8 cm LA Diam: 3.7 cm (2.7 - 3.8) Ao Diam: 3.2 cm (2.0 - 3.7) AV Cusp: 1.8 cm (1.5 - 2.6) MV EXCURSION: 21.388 mm (> 18.000) MV EF SLOPE: 102 mm/s (70 - 150) EPSS: 1.8 cm MV E Earnest: 1.07 m/s MV DecT: 266 ms MV A Earnest: 0.78 m/s MV E/A Ratio: 1.37 AV maxP.40 mmHg AV meanP.58 mmHg RAP: 5.00 mmHg RVSP: 46.26 mmHg FINDINGS -------- Pacerwire seen in RV and RA. This was a technically adequate study. The left ventricular size is normal. There is moderate concentric left ventricular hypertrophy. O verall left ventricular systolic function is normal with, an EF between 55 - 60 %. The right ventricle is moderately enlarged. The left atrium is normal in size. The right atrial size is normal. Interatrial and interventricular septum intact. There is mild aortic valve sclerosis. Peak/mean gradient across the Aortic Valve is 17.40mmHg / 9.5 8mmHg. Mild mitral annular calcification present. Mild mitral regurgitation is present. Mild tricuspid regurgitation present. There is mild to moderate pulmonary hypertension. The right ventricular systolic pressure, as measured by Doppler, is 46.26mmHg. Trace/mild (physiologic) pulmonic regurgitation. The aortic root size is normal. Normal inferior vena cava with normal inspiratory collapse consistent with estimated right atrial pre ssure of 5 mmHg. There is no pericardial effusion. CONCLUSIONS -------- 1. Pacerwire seen in RV and RA. 2. There is moderate concentric left ventricular hypertrophy. 3. Overall left ventricular systolic function is normal with, an EF between 55 - 60 %. 4. The right ventricle is moderately enlarged. 5. The left atrium is normal in size. 6. There is mild aortic valve sclerosis. 7. Mild mitral annular calcification present. 8. Mild mitral regurgitation is present. 9. Mild tricuspid regurgitation present. 10. There is mild to moderate pulmonary hypertension. 11. Trace/mild (physiologic) pulmonic regurgitation. 12. There is no pericardial effusion. [employer]NCE OFFICER: Payton Duenas RDCS
[2021-02-03 17:34] LABS: Glucose,Whole Blood 152 mg/dL (75-99)
[2021-02-03 20:01] LABS: Glucose,Whole Blood 176 mg/dL (75-99)
[2021-02-03 20:36] LABS: Chol/HDL Ratio 3.39; Cholesterol 139 mg/dL (0-200); LDL Cholesterol,Calculated 61.6 mg/dL (0.0-131.0)
[2021-02-03] MEDS ORDERED: atenoloL 25 MG TAB PO SCH (21:00)
[2021-02-03] MEDS ORDERED: ATORVASTATIN 10 MG TAB PO SCH (21:00)
[2021-02-03 22:38] LABS: Folate, Serum >24.0 ng/mL
[2021-02-03] MEDS: ATORVASTATIN 40 MG TAB PO SCH (23:01)
[2021-02-03] MEDS: MIRTAZAPINE 15 MG TAB PO SCH (23:01)
[2021-02-04] MEDS: LEVOTHYROXINE 100 MCG TAB PO SCH (05:58)
[2021-02-04 08:09] LABS: Glucose,Whole Blood 136 mg/dL (75-99)
[2021-02-04] MEDS: DIPHENOX-ATROP 2.5-0.025 MG 1 EACH TAB PO SCH ×2 (08:21→15:39)
[2021-02-04] MEDS: INSULIN ASPART (NovoLOG) 100 UNIT/ML VIAL SQ SCH ×4 (08:52→21:35)
[2021-02-04] MEDS: CHOLECALCIFEROL 25 MCG (1000 IU) TABLET PO SCH (08:53)
[2021-02-04] MEDS: PANTOPRAZOLE 40 MG TABLET PO SCH (08:53)
[2021-02-04] MEDS: FOLIC ACID-VIT B COMPLEX-VIT C 1 CAP PO SCH (08:53)
[2021-02-04] MEDS: FLECAINIDE 50 MG TAB PO SCH ×2 (08:53→21:36)
[2021-02-04] MEDS: atenoloL 50 MG TAB PO SCH (08:53)
[2021-02-04] MEDS: CALCIUM ACETATE 667 MG TAB PO SCH (08:53)
--- NOTE | 2021-02-04 08:53 | US ---
EXAMINATION TYPE: US carotid duplex BILAT DATE OF EXAM: 02/04/2021 COMPARISON: 06/28/2011 CLINICAL HISTORY: carotid stenosis. EXAM MEASUREMENTS: RIGHT: Peak Systolic Velocity (PSV) cm/sec ----- Right CCA: 79.2 ----- Right ICA: 164.0 ----- Right ECA: 114.0 ICA/CCA ratio: 2.1 RIGHT: End Diastole cm/sec ----- Right CCA: 14.5 ----- Right ICA: 29.3 ----- Right ECA: 0.0 LEFT: Peak Systolic Velocity (PSV) cm/sec ----- Left CCA: 82.5 ----- Left ICA: 274.8 ----- Left ECA: 122.1 ICA/CCA ratio: 3.3 LEFT: End Diastole cm/sec ----- Left CCA: 12.7 ----- Left ICA: 40.7 ----- Left ECA: 0.0 VERTEBRALS (direction of flow): Right Vertebral: Antegrade Left Vertebral: Antegrade Rhythm: Normal Moderate plaque seen bilateral with bilateral ICA stenosis. IMPRESSION: 1. Moderate 50-70% right internal carotid artery stenosis. 2. Severe greater than 70% stenosis of the left internal carotid artery. Criteria for Assigning % of Stenosis / Diameter reduction (Estimation based on the indirect measurements of the internal carotid artery velocities (ICA PSV). 1. Normal (no stenosis)=ICA PSV < 125 cm/s: ratio < 2.0: ICA EDV<40 cm/s. 2. Less than 50% stenosis=ICA PSV < 125 cm/s: ratio < 2.0: ICA EDV<40 cm/s. 3. 50 to 69% stenosis=ICA PSV of 125 to 230 cm/s: ration 2.0 ? 4.0: ICA EDV 40-100 cm/s. 4. Greater than 70% stenosis to near occlusion= ICA PSV > 230 cm/s: ratio > 4.0: ICA EDV > 100 cm/s. 5. Near occlusion= ICA PSV velocities may be low or undetectable: variable ratio and ICA EDV. 6. Total occlusion=unable to detect flow.
[2021-02-04] MEDS: allopurinoL 100 MG TAB PO SCH (08:54)
[2021-02-04] MEDS: TORSEMIDE 20 MG TAB PO SCH (08:54)
--- NOTE | 2021-02-04 09:34 | P.PN ---
Subjective Progress Note Date: 02/04/21 The patient was seen at bedside and she stated that her dizziness has been improving. She denies of any focal weakness, numbness, visual disturbance that is new. Denies any further nausea or vomiting. CT angiography of the head and neck was reported as no significant intercranial and angiographic abnormality. Hemodynamic stenosis seen in the internal carotid arteries bilaterally near the carotid artery bifurcation. Moderate plaque formation. High density O pacification left maxillary sinus consistent with the mucocele unchanged. In the body of the report it is mentioned that there is probably more than 85% stenosis of the proximal left internal carotid artery. Similar plaque formation is seen at approximately 75% stenosis of the proximal right internal carotid artery. 2-D echo was reported as moderate concentric left ventricle hypertrophy. Ejection fraction between 55-60%. Right ventricle is moderately enlarged. Left atrial is normal in size. Lipid panel: Triglyceride of 182, cholesterol 139, LDL of 61, HDL of 41. Vitamin B12 of 390 and the normal is between 200-944. Folate level is more than 24 which is considered normal left. TSH 2.160 which is considered normal. Carotid duplex is reported as moderate 50-70% right internal carotid artery stenosis. While in the left shows severe greater than 70% stenosis of the left internal carotid artery. Per the patient nurse the aspirin was not given because she is scheduled for a bladder biopsy this . Objective - Vital Signs Vital signs: Vital Signs Temp 97.6 F 02/04/21 07:00 Pulse 70 02/04/21 07:00 Resp 18 02/04/21 07:00 BP 108/55 02/04/21 07:00 Pulse Ox 95 02/04/21 07:00 Intake & Output 02/03/21 02/04/21 02/04/21 18:59 06:59 18:59 Intake Total 150 Balance 150 Intake: Oral 150 Other: Voiding Method Toilet Toilet Toilet Bedside Commode Bedside Commode Bedside Commode # Voids 4 0 # Bowel Movements 1 - Exam GENERAL: The patient is a morbid obese woman lying in bed and is not in acute distress. NEUROLOGICAL: Higher mental function: The patient is awake, alert, oriented to self, place and time. Patient is following commands. No aphasia and no neglect. Cranial nerves: The pupils are round, equal and reactive to light and accommod ation. Visual matthews are full to confrontation throughout. Extraocular movement is intact no nystagmus is noted. Facial sensation is normal to touch throughout. The facial strength is normal throughout. Hearing is moderately to severely decrease and worse over the right > left (has old hearing loss over bilateral ears right >left). Tongue is midline and moved [id number] without any difficulty. No dysarthria is noted. Shoulder shrug is normal bilaterally. Motor: Gait is deferred. The strength is 5 over 5 throughout upper while lowers are limited because of pain. In the bilateral proximal lowers she had 4/5 and limited because of pain while distal are 5/5. Normal tone and bulk. Cerebellum: Normal finger to nose bilaterally while bilateral lower (heel to landrum) has ataxia but limited because of pain. Sensation: Sensation is normal to touch throughout. Reflexes (right/left): 1+ throughout. Plantars are mute bilaterally. - Labs CBC & Chem 7: 02/02/21 18:07 02/02/21 18:15 Labs: Abnormal Lab Results - Last 24 Hours (Table) 02/03/21 02/03/21 02/03/21 Range/Units 12:25 12:59 17:32 POC Glucose (mg/dL) 161 H 152 H (75-99) mg/dL Triglycerides 182.0 H (0.0-149.0) mg/dL 02/03/21 02/04/21 Range/Units 19:59 08:08 POC Glucose (mg/dL) 176 H 136 H (75-99) mg/dL Triglycerides (0.0-149.0) mg/dL Assessment and Plan Assessment: * Acute nausea, vomiting and vertigo: Seems more positional vertigo vs post dialysis effect. Cannot rule out stroke (but seem low on the differential). * Chronic unsteady gait, bilateral ataxia: Unknown exactly. There is multiple factors that cause cause this diabetic peripheral neuropathy vs vs thoracic or lumbar myelopathy. Cannot defientely rule out acute stroke but unlikely. 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 * Moderate to severe bilateral internal carotid arteries (left > right. On CTA left is >80% while right is 75%. While carotid duplex left >70% while right is 50-70% stenosis). 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 Hemodynamic stenosis seen in the internal carotid arteries bilaterally near the carotid artery bifurcation. Moderate plaque formation. High density O pacification left maxillary sinus consistent with the mucocele unchanged. In the body of the report it is mentioned that there is probably more than 85% stenosis of the proximal left internal carotid artery. Similar plaque formation is seen at approximately 75% stenosis of the proximal right internal carotid artery. * Carotid duplex is reported as moderate 50-70% right internal carotid artery stenosis. While in the left shows severe greater than 70% stenosis of the left internal carotid artery. * 2-D echo was reported as moderate concentric left ventricle hypertrophy. Ejection fraction between 55-60%. Right ventricle is moderately enlarged. Left atrial is normal in size. * Lipid panel: Triglyceride of 182, cholesterol 139, LDL of 61, HDL of 41. LDL goal in stroke is <70. * Vitamin B12 of 390. I started the patient on Vitamin 500mcg daily since her vitamin b12 is low normal (normal is between 200-944). * Folate level is more than 24 which is considered normal left. * TSH 2.160 which is considered normal. * Last HbA1c is 5.8 (10/12/2020). * Consulted vascular surgery. I don't think her carotid stenosis are symptomatic and from neurological stand point, carotid intervention can be done as outpatient but will defer that final decision between patient and vascular team. * Cannot get MRI Brain because of pacemaker. * Currently the patient is on Eliquis 2.5 mg 1 tablet twice a day as well as Lipitor 10 mg daily at bedtime. Recommend possibly consideration of adding aspirin 81mg daily in addition to the Eliquis because of strokelike symptoms and the we'll defer the addition of aspirin to the primary team if its safe because of anemia. ASA not started since getting bladder biopsy this coming up . Continue Lipitor 40 mg daily at bedtime for secondary stroke prophylaxis. * On Continuous cardiac monitoring and on every 4 hours neuro checks. * Physical therapy and occupational therapy are consulted. * Pending copper level. * If work-up are negative, will consider CT thoracic and lumbar down the line and can be done as outpatient since patient gait unsteadiness is chronic issue. Recommend EMG with NCS as outpatient. * Will defer the rest of medical management to the primary team. * I was notified by the patient nurse there is a family dynamics, one of her daughter wants everything to be done on her and another daughter is not as aggressive. The patient the wants to be in nursing facility and she notified yesterday that some of her family members are not inclined of that idea. Upon discharge, the patient needs to follow-up with a neurologist as outpatient within 1-2 weeks. The plan is discussed with the patient's primary team and her nurse. Jamaal Lux MD Neuro-Hospitalist Time with Patient: Less than 30
[2021-02-04] MEDS: APIXABAN 2.5 MG TABLET PO SCH (10:31)
[2021-02-04] MEDS: CYANOCOBALAMIN 500 MCG TAB PO SCH (11:22)
[2021-02-04 11:42] LABS: Glucose,Whole Blood 193 mg/dL (75-99)
--- NOTE | 2021-02-04 13:04 | P.NPCON ---
History of Present Illness - Reason for Consult Consult date: 02/04/21 end stage renal disease - Chief Complaint Postdialysis visual blurring - History of Present Illness This is a 85-year-old female with ESRD on dialysis Friday She was admitted with postdialysis visual blurring gait instability. Prior to this episode she has had poor vision and her doctor coffee blender had told her that she is nearly legally blind. The vision got much worse and remained so. She denies any lightheadedness per se. She felt nauseated. Workup has shown bilateral carotid artery disease. CT scan the brain shows old left posterior frontal lobe infarct without any changes. Chest x-ray was unremarkable. EKG shows wide complexes with dual paced rhythm. Patient under went CT angiogram, showed stenosis in the internal carotid arteries bilaterally near the carried artery bifurcations with moderate plaque Currently patient is comfortable although she is still has not regained her vision thought was. No chest pain shortness of breath nausea vomiting. Past Medical History Past Medical History: Atrial Fibrillation, Heart Failure, Diabetes Mellitus, Deep Vein Thrombosis (DVT), GERD/Reflux, Hyperlipidemia, Hypertension, Myocardial Infarction (MT), Osteoarthritis (OA), Pulmonary Embolus (PE), Renal Disease, Rheumatoid Arthritis (RA), Sleep Apnea/CPAP/BIPAP, Thyroid Disorder Additional Past Medical History / Comment(s): Pt admitted to [facility] on 02/06/20 with UTI/ESBL/bacteremia. Other hx: IDDM type II, diabetic neuropathy bilateral hands/feet, ESRD with hemodialysis, has temporary boone cath for dialysis d/t R upper arm recent fistula surgery 02/01/20 in which fistula was repositioned, R arm/shoulder limited ROM since fistula surgery, current UTI, recurrent UTIs, pt was told she had a past MT d/t EKG, palpitations, SSS with pacer, HARRIS with Cpap, chronic back and bilateral knee pain, hypothyroid. Last Myocardial Infarction Date:: unknown History of Any Multi-Drug Resistant Organisms: ESBL Date of last positivie culture/infection: 02/04/20 MDRO Source:: ESBL URINE Past Surgical History: Bladder Surgery, Hysterectomy, Pacemaker Additional Past Surgical History / Comment(s): 02/01/20 R upper arm fistula repositioned, R chest boone cath, rectocele, cystocele, hemorrhoidectomy, bilateral leg vein strippings, bilateral cataract removal, Picc lines Past Anesthesia/Blood Transfusion Reactions: No Reported Reaction Type of Cardiac Device: Permanent Pacemaker Device Placement Date:: 01/2017 Past Psychological History: No Psychological Hx Reported Smoking Status: Never smoker Past Alcohol Use History: None Reported Past Drug Use History: None Reported - Past Family History Father Family Medical History: AFIB, AICD/Pacemaker, Congestive Heart Failure (CHF), Coronary Artery Disease (CAD), Diabetes Mellitus, Dialysis, Deep Vein Thrombosis (DVT), Hyperlipidemia, Hypertension, Myocardial Infarction (MT), Rheumatoid Arthritis (RA) Mother Family Medical History: Unable to Obtain Sister(s) Family Medical History: Cancer Medications and Allergies Home Medications Medication Instructions Recorded Confirmed Type Levothyroxine Sodium [Synthroid] 100 mcg PO DAILY 01/31/14 02/02/21 History allopurinoL [Zyloprim] 100 mg PO DAILY 01/18/17 02/02/21 History atenoloL [Tenormin] 25 mg PO HS 10/10/17 02/02/21 History Pantoprazole [Protonix] 40 mg PO DAILY 08/16/19 02/02/21 History Insulin Lispro [humaLOG Kwikpen] See Protocol SQ AC-TID 02/04/20 02/02/21 History Ondansetron [Zofran] 4 mg PO Q8HR PRN 02/04/20 02/02/21 History Apixaban [Eliquis] 2.5 mg PO BID 02/22/20 02/02/21 History Torsemide [Demadex] 40 mg PO DAILY 02/22/20 02/02/21 History Calcium Acetate [PhosLo] 667 mg PO DAILY 05/25/20 02/02/21 History Mirtazapine [Remeron] 15 mg PO HS 05/25/20 02/02/21 History Simvastatin [Zocor] 20 mg PO HS 05/25/20 02/02/21 History Diphenox-Atrop 2.5-0.025 mg 1 tab PO Q8H 07/26/20 02/02/21 History [Lomotil] Flecainide [Tambocor] 50 mg PO BID 07/26/20 02/02/21 History Acetaminophen Tab [Tylenol] 1,000 mg PO Q8H 01/10/21 02/02/21 History Atenolol [Tenormin] 50 mg PO DAILY 01/10/21 02/02/21 History Calcium Carbonate [Tums] 1,000 mg PO QID PRN 01/10/21 02/02/21 History Cholecalciferol [Vitamin D3 (25 100 mcg PO DAILY 01/10/21 02/02/21 History Mcg = 1000 Iu)] Folic Acid-Vit B Complex-Vit C 1 cap PO DAILY 01/10/21 02/02/21 History [Nephrocaps] Lidocaine-Prilocaine Cream [Emla 1 applic TOPICAL DAILY PRN 01/10/21 02/02/21 History Cream 2.5%/2.5%] Loperamide HCl [Imodium A-D] 2 mg PO DAILY 01/10/21 02/02/21 History Loperamide [Imodium] 2 - 4 mg PO QID PRN 01/10/21 02/02/21 History Midodrine [ProAmatine] 5 mg PO MOWEFR PRN 01/10/21 02/02/21 History Allergies Allergy/AdvReac Type Severity Reaction Status Date / Time amoxicillin Allergy Rash/Hives Verified 02/02/21 19:15 Penicillins Allergy Rash/Hives Verified 02/02/21 19:15 Sulfa (Sulfonamide Allergy Rash/Hives Verified 02/02/21 19:15 Antibiotics) meperidine HCl [From Demerol] AdvReac Nausea & Verified 02/02/21 19:15 Vomiting Physical Exam Vitals: Vital Signs Temp Pulse Resp BP Pulse Ox 02/04/21 07:00 97.6 F 70 18 108/55 95 02/04/21 01:59 99.0 F 70 16 118/57 99 02/03/21 20:00 70 16 02/03/21 19:39 97.5 F L 70 16 105/62 94 L 02/03/21 15:00 97.5 F L 70 18 113/62 92 L Intake and Output 02/03/21 02/04/21 02/04/21 22:59 06:59 14:59 Intake Total 150 Balance 150 Intake: Oral 150 Other: Voiding Method Toilet Toilet Bedside Commode Bedside Commode # Voids 0 # Bowel Movements 1 On examination she is chronically hard of hearing. HEENT exam no JVP neck supple no facial asymmetry Lungs are clear to auscultation good air entry bilaterally Heart sounds unremarkable no murmur rub gallop Abdomen soft nontender Extremity exam was no edema Neurologically awake alert oriented Results - Lab Results Most recent lab results Calcium 8.7 mg/dL (8.4-10.2) 02/02/21 18:15 Magnesium 1.6 mg/dL (1.6-2.3) 02/02/21 18:15 02/02/21 18:07 02/02/21 18:15 Assessment and Plan Assessment: Impression 1. ESRD on dialysis Friday with the right upper arm graft 2. Admitted with postdialysis loss of vision and gait instability and nausea probably TIA. Bilateral carotid artery stenosis with complete occlusion 3. Anemia of chronic illness with ESRD hemoglobin is 10 at target 4. Atrial fibrillation, status post pacer 5. History of DVT 6. History of coronary artery disease 7. History of PE. 8. History of bladder mass, she was scheduled to have cystoscopy and biopsy day after tomorrow Recommendation 1. Will be dialyzed tomorrow, will take off 2 L. 2. Vascular surgery evaluation regarding carotid disease 3. Monitor calcium phosphorus hemoglobin iron saturation 4. Maintain blood pressure slightly higher currently low. We will reduce the atenolol to 25 twice a day currently on 50 mg and 25 mg daily Thank you for this consultation we'll continue to follow
--- NOTE | 2021-02-04 13:41 | P.PN ---
Subjective Progress Note Date: 02/04/21 (delayed charting seen at 1105) Principal diagnosis: dizziness Patient is 85-year-old female with end-stage renal disease on hemodialysis Friday/Friday/Friday, diabetes, congestive heart failure, and multiple other comorbid conditions who presented to the emergency room due to lightheadedness and blurred vision. She underwent dialysis which returned home she felt very weak and though she was going to pass out. She states she started to fall and her family member caught her. In the ER her blood work was essentially at her baseline. Vital signs were stable. Arrangements are made for observation. Orthostatic vitals were negative. Telemetry was unremarkable. Patient continued to complain of some dizziness and had an unusual [id number] noted on the left and therefore neurology was consulted. She underwent CTA head and neck which showed carotid stentosis. Imaging CT brain: Old left posterior frontal lobe infarct CTA head and neck:Stenosis L 85%, Right 75% Carotid doppler: left >70%, right 50-70% Echo: EF 55-60% Patient seen and examined. She reports that she had some dizziness and walking to the bathroom today, not nearly as severe as before. She has been on hemodialysis the last 1 year and states that she has been getting progressively weak. She has not had any courses of physical therapy. She states that her breathing is at baseline, she denies any chest pain. 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 She denies any personal history of stroke. General: non toxic, no distress, appears at stated age Derm: warm, dry Head: atraumatic, normocephalic, symmetric Eyes: EOMI, no lid lag, anicteric sclera Mouth: no lip lesion, mucus membranes moist Cardiovascular: S1S2 reg, no murmur, positive posterior tibial pulse bilateral, Lungs: CTA bilateral, no rhonchi, no rales , no accessory muscle use Abdominal: soft, nontender to palpation, no guarding, no appreciable organomegaly Ext: no gross muscle atrophy, 2+ edema, no contractures Neuro: CN II-XI grossly intact, muscle strength bilateral upper extremities 5 out of 5, muscle strength 3 out of 5 bilateral lower extremities, finger to nose intact, [id number] poor with left heel apply to right landrum but intact with right heel applied to left landrum, Babinski equivocal Psych: Alert, oriented, appropriate affect Dizziness with poor balance, bilateral carotid stenosis -Possibly secondary to hemodynamic changes of hemodialysis in conjuction with bilateral carotid disease -Orthostatic vital signs negative -neurology recs appreciated - await vascular recs -Fall precautions -Continue with telemetry monitoring - currently off eliquis and ASA as plans for bladder biopsy as outpatient on 02/08 End-stage renal disease on hemodialysis Friday/Friday/Friday, anemia of end- stage renal disease -Outpatient follow-up with nephrology -Felix Reagan Diabetes mellitus -Sliding-scale insulin -Follow Accu-Cheks Chronic diastolic congestive heart failure not in exacerbation, ejection fraction 60-65% -Not chronically on RAMAKRISHNA inhibitor -Continue beta henok -Fluid status controlled with dialysis -Resume Demadex A. fib -Eliquis, atenolol -Flecainide Hypertension, controlled -Continue medications -Follow blood pressures Dyslipidemia -Lipitor Chronic: Hypothyroidism DVT prophylaxis: SCDs Discussed with: patient, neruology, nursing Anticipated discharge: 1-[address]: home A total of 35 minutes was spent on the care of this complex patient more than 50% of the time was spent in counseling and care coordination. Objective - Vital Signs Vital signs: Vital Signs Temp 97.6 F 02/04/21 07:00 Pulse 70 02/04/21 07:00 Resp 18 02/04/21 07:00 BP 108/55 02/04/21 07:00 Pulse Ox 95 02/04/21 07:00 Intake & Output 02/03/21 02/04/21 02/04/21 18:59 06:59 18:59 Intake Total 150 Balance 150 Intake: Oral 150 Other: Voiding Method Toilet Toilet Toilet Bedside Commode Bedside Commode Bedside Commode # Voids 4 0 # Bowel Movements 1 - Labs CBC & Chem 7: 02/02/21 18:07 02/02/21 18:15 Labs: Abnormal Lab Results - Last 24 Hours (Table) 02/03/21 02/03/21 02/03/21 Range/Units 12:59 17:32 19:59 POC Glucose (mg/dL) 152 H 176 H (75-99) mg/dL Triglycerides 182.0 H (0.0-149.0) mg/dL 02/04/21 02/04/21 Range/Units 08:08 11:41 POC Glucose (mg/dL) 136 H 193 H (75-99) mg/dL Triglycerides (0.0-149.0) mg/dL
--- NOTE | 2021-02-04 15:39 | P.GSCN ---
History of Present Illness Consult date: 02/04/21 Reason for Consult: Carotid stenosis. History of present illness: Patient is an 85-year-old female who was admitted to the hospital after exper iencing episodes of vertiginous type symptoms associated with weakness of the legs and paresthesias of the upper and lower extremities shortly after undergoing dialysis. She indicates that this neurologic symptom of paresthesias is a very chronic problem for her. She denied any focal motor or new sensory deficit, slurring of her speech, amaurosis type symptoms or facial droop. During her hospital stay she did undergo carotid duplex imaging which demonstrates bilateral carotid stenosis. CT angiography also demonstrated bilateral carotid stenosis. She denies any previous renovascular accident. Past Medical History Past Medical History: Atrial Fibrillation, Heart Failure, Diabetes Mellitus, Dialysis, Deep Vein Thrombosis (DVT), GERD/Reflux, Hyperlipidemia, Hypertension, Myocardial Infarction (IL), Osteoarthritis (OA), Pulmonary Embolus (PE), Renal Disease, Rheumatoid Arthritis (RA), Sleep Apnea/CPAP/BIPAP, Thyroid Disorder Additional Past Medical History / Comment(s): Pt admitted to [facility] on 02/06/20 with UTI/ESBL/bacteremia. Other hx: IDDM type II, diabetic neuropathy bilateral hands/feet, ESRD with hemodialysis, has temporary boone cath for dialysis d/t R upper arm recent fistula surgery 02/01/20 in which fistula was repositioned, R arm/shoulder limited ROM since fistula surgery, current UTI, recurrent UTIs, pt was told she had a past IL d/t EKG, palpitations, SSS with pacer, HARRIS with Cpap, chronic back and bilateral knee pain, hypothyroid. Last Myocardial Infarction Date:: unknown History of Any Multi-Drug Resistant Organisms: ESBL Year Discovered:: 02/04/20 MDRO Source:: ESBL URINE Past Surgical History: Bladder Surgery, Hysterectomy, Pacemaker Additional Past Surgical History / Comment(s): 02/01/20 R upper arm fistula repositioned, R chest boone cath, rectocele, cystocele, hemorrhoidectomy, bilateral leg vein strippings, bilateral cataract removal, Picc lines Past Anesthesia/Blood Transfusion Reactions: No Reported Reaction Type of Cardiac Device: Permanent Pacemaker Device Placement Date:: 01/2017 Past Psychological History: No Psychological Hx Reported Smoking Status: Never smoker Past Alcohol Use History: None Reported Past Drug Use History: None Reported - Past Family History Father Family Medical History: AFIB, AICD/Pacemaker, Congestive Heart Failure (CHF), Coronary Artery Disease (CAD), Diabetes Mellitus, Dialysis, Deep Vein Thrombosis (DVT), Hyperlipidemia, Hypertension, Myocardial Infarction (IL), Rheumatoid Arthritis (RA) Mother Family Medical History: Unable to Obtain Sister(s) Family Medical History: Cancer Medications and Allergies Home Medications Medication Instructions Recorded Confirmed Type Levothyroxine Sodium [Synthroid] 100 mcg PO DAILY 01/31/14 02/02/21 History allopurinoL [Zyloprim] 100 mg PO DAILY 01/18/17 02/02/21 History atenoloL [Tenormin] 25 mg PO HS 10/10/17 02/02/21 History Pantoprazole [Protonix] 40 mg PO DAILY 08/16/19 02/02/21 History Insulin Lispro [humaLOG Kwikpen] See Protocol SQ AC-TID 02/04/20 02/02/21 History Ondansetron [Zofran] 4 mg PO Q8HR PRN 02/04/20 02/02/21 History Apixaban [Eliquis] 2.5 mg PO BID 02/22/20 02/02/21 History Torsemide [Demadex] 40 mg PO DAILY 02/22/20 02/02/21 History Calcium Acetate [PhosLo] 667 mg PO DAILY 05/25/20 02/02/21 History Mirtazapine [Remeron] 15 mg PO HS 05/25/20 02/02/21 History Simvastatin [Zocor] 20 mg PO HS 05/25/20 02/02/21 History Diphenox-Atrop 2.5-0.025 mg 1 tab PO Q8H 07/26/20 02/02/21 History [Lomotil] Flecainide [Tambocor] 50 mg PO BID 07/26/20 02/02/21 History Acetaminophen Tab [Tylenol] 1,000 mg PO Q8H 01/10/21 02/02/21 History Atenolol [Tenormin] 50 mg PO DAILY 01/10/21 02/02/21 History Calcium Carbonate [Tums] 1,000 mg PO QID PRN 01/10/21 02/02/21 History Cholecalciferol [Vitamin D3 (25 100 mcg PO DAILY 01/10/21 02/02/21 History Mcg = 1000 Iu)] Folic Acid-Vit B Complex-Vit C 1 cap PO DAILY 01/10/21 02/02/21 History [Nephrocaps] Lidocaine-Prilocaine Cream [Emla 1 applic TOPICAL DAILY PRN 01/10/21 02/02/21 History Cream 2.5%/2.5%] Loperamide HCl [Imodium A-D] 2 mg PO DAILY 01/10/21 02/02/21 History Loperamide [Imodium] 2 - 4 mg PO QID PRN 01/10/21 02/02/21 History Midodrine [ProAmatine] 5 mg PO MOWEFR PRN 01/10/21 02/02/21 History Allergies Allergy/AdvReac Type Severity Reaction Status Date / Time amoxicillin Allergy Rash/Hives Verified 02/02/21 19:15 Penicillins Allergy Rash/Hives Verified 02/02/21 19:15 Sulfa (Sulfonamide Allergy Rash/Hives Verified 02/02/21 19:15 Antibiotics) meperidine HCl [From Demerol] AdvReac Nausea & Verified 02/02/21 19:15 Vomiting Surgical - Exam Osteopathic Statement: *. No significant issues noted on an osteopathic structural exam other than those noted in the History and Physical/Consult. Vital Signs Temp Pulse Resp BP Pulse Ox 97.3 F L 71 16 135/45 96 02/02/21 17:44 02/02/21 17:44 02/02/21 17:44 02/02/21 17:44 02/02/21 17:44 - Eyes PERRL, normal ocular movement - Neck no masses, no bruits, trachea midline, no lymphadectomy, no venous distension - Respiratory normal expansion, clear to percussion - Cardiovascular Rhythm: irregularly irregular - Abdomen Abdomen: soft, non tender, bowel sounds - Integumentary no rash, no abnormal pigmentation - Psychiatric oriented to time, oriented to person, oriented to place, speech is normal Results - Labs 02/02/21 18:07 02/02/21 18:15 Abnormal Lab Results - Last 24 Hours (Table) 02/03/21 02/03/21 02/03/21 Range/Units 12:59 17:32 19:59 POC Glucose (mg/dL) 152 H 176 H (75-99) mg/dL Triglycerides 182.0 H (0.0-149.0) mg/dL 02/04/21 02/04/21 Range/Units 08:08 11:41 POC Glucose (mg/dL) 136 H 193 H (75-99) mg/dL Triglycerides (0.0-149.0) mg/dL Diabetes panel 02/03/21 Range/Units 12:59 Triglycerides 182.0 H (0.0-149.0) mg/dL HDL Cholesterol 41.0 (40.0-60.0) mg/dL Thyroid panel 02/03/21 Range/Units 12:59 TSH 2.160 (0.350-5.500) uIU/mL Pituitary panel 02/03/21 Range/Units 12:59 TSH 2.160 (0.350-5.500) uIU/mL Assessment and Plan Assessment: #1: Asymptomatic carotid stenosis (bilateral). On duplex left is slightly greater than 70% and the right is 50-69% degree of severity. #2: Diabetes mellitus with diabetic neuropathy. #3: Dialysis-dependent renal failure. #4: Atrial fibrillation. #5: Abnormal coagulation profile (patient on oral anticoagulation for atrial fibrillation). #6: History of hypertension. #7: History of congestive heart failure. #8: History of dyslipidemia Plan: #1: I do not believe the patient's carotid stenosis is symptomatic at this time and this can be followed as an outpatient. She has had her dialysis work performed via the [facility] in [place] and it appears she is more likely than not to follow with this group in reference to her carotid occlusive disease. I would be more than happy to see the patient as an outpatient should she decide in this manner. #2: Agree with the medical therapy. Thank you very much for allowing me to participate the care of your patient. I trust this consultation is useful and if I can be of future assistance please for free to contact me. Time with Patient: Greater than 30
[2021-02-04 17:14] LABS: Glucose,Whole Blood 125 mg/dL (75-99)
[2021-02-04 20:25] LABS: Glucose,Whole Blood 187 mg/dL (75-99)
[2021-02-04] MEDS: MIRTAZAPINE 15 MG TAB PO SCH (21:36)
[2021-02-04] MEDS: ATORVASTATIN 40 MG TAB PO SCH (21:37)
[2021-02-05] MEDS: DIPHENOX-ATROP 2.5-0.025 MG 1 EACH TAB PO SCH ×3 (00:34→16:26)
[2021-02-05] MEDS: LEVOTHYROXINE 100 MCG TAB PO SCH (05:43)
[2021-02-05 07:52] LABS: Glucose,Whole Blood 135 mg/dL (75-99)
[2021-02-05] MEDS: INSULIN ASPART (NovoLOG) 100 UNIT/ML VIAL SQ SCH ×4 (09:13→20:20)
[2021-02-05] MEDS: allopurinoL 100 MG TAB PO SCH (09:16)
[2021-02-05] MEDS: PANTOPRAZOLE 40 MG TABLET PO SCH (09:16)
[2021-02-05] MEDS: CALCIUM ACETATE 667 MG TAB PO SCH (09:16)
[2021-02-05] MEDS: CHOLECALCIFEROL 25 MCG (1000 IU) TABLET PO SCH (09:16)
[2021-02-05] MEDS: FLECAINIDE 50 MG TAB PO SCH ×2 (09:17→20:20)
[2021-02-05] MEDS: CYANOCOBALAMIN 500 MCG TAB PO SCH (09:17)
[2021-02-05] MEDS: FOLIC ACID-VIT B COMPLEX-VIT C 1 CAP PO SCH (09:23)
--- NOTE | 2021-02-05 11:22 | P.PN ---
Subjective Progress Note Date: 02/05/21 Principal diagnosis: Carotid stenosis Patient is seen and examined in bed. She denies any deficits at this time. States that if she does get up too fast she does get dizzy otherwise no other complaints. She is being followed by nephrology as well as neurology. Objective - Vital Signs Vital signs: Vital Signs Temp 98.0 F 02/05/21 07:00 Pulse 69 02/05/21 07:00 Resp 16 02/05/21 07:00 BP 109/63 02/05/21 07:00 Pulse Ox 95 02/05/21 07:00 Intake & Output 02/04/21 02/05/21 02/05/21 18:59 06:59 18:59 Intake Total 150 360 Balance 150 360 Intake: Oral 150 360 Other: Voiding Method Toilet Toilet Bedside Commode Bedside Commode # Voids 2 0 1 # Bowel Movements 2 1 - Exam General appearance: The patient is alert, oriented, in no acute distress. HET: Head is normocephalic and atraumatic. Pupils are equal and reactive, EOM intact. Neck: Supple without lymphadenopathy. Trachea midline. Heart: S1 S2. Regular rate and rhythm. Lungs: Clear to auscultation. Extremities: Normal skin color and turgor. No cyanosis, rash, ulceration, clubbing, or edema. Radial and pedal pulses are 2/4 bilaterally. Neurological: No focal deficits. Alert and oriented 3. Strength and sensation are grossly intact. - Labs CBC & Chem 7: 02/02/21 18:07 02/02/21 18:15 Labs: Abnormal Lab Results - Last 24 Hours (Table) 02/04/21 02/04/21 02/04/21 Range/Units 11:41 17:12 20:24 POC Glucose (mg/dL) 193 H 125 H 187 H (75-99) mg/dL 02/05/21 Range/Units 07:51 POC Glucose (mg/dL) 135 H (75-99) mg/dL Assessment and Plan Assessment: 1. Asymptomatic bilateral internal carotid stenosis on duplex left is slightly greater than 70% and the right is 50-69% degree of severe deep 2. Syncope 3. Diabetes mellitus with diabetic neuropathy 4. end-stage renal disease on hemodialysis 5. History atrial fibrillation 6. History of hypertension 7. History of congestive heart failure 8. History of dyslipidemia Plan: 1. Recommend outpatient follow-up with vascular surgery for carotid stenosis via [facility] in [place] or Dr. De La Rosa for her carotid occlusive disease 2. Continue medical therapy Thank you for this consultation, patient may be discharged home from a vascular surgical standpoint is otherwise medically cleared. The impression and plan of care has been dictated as directed. I performed a history and examination of this patient, discussed the same with the dictator. I agree with the dictator's note ,documented as a scribe. Any additional findings or plans will be noted.
[2021-02-05 11:59] LABS: Glucose,Whole Blood 142 mg/dL (75-99)
--- NOTE | 2021-02-05 13:31 | P.PN ---
Subjective Progress Note Date: 02/05/21 The patient is seen at bedside and stated is doing better compared to initial presentation. She continues to have dizziness with position but denies nausea, vomitting, focal weakness, visual disturbance or difficulty getting her words out. She was seen by vascular surgery team and they stated no surgical intervention as inpatient and to follow-up as outpatient with vascular team. Today the patient is in the process of getting dialysis. Objective - Vital Signs Vital signs: Vital Signs Temp 98.0 F 02/05/21 07:00 Pulse 69 02/05/21 07:00 Resp 16 02/05/21 08:00 BP 109/63 02/05/21 07:00 Pulse Ox 95 02/05/21 07:00 Intake & Output 02/04/21 02/05/21 02/05/21 18:59 06:59 18:59 Intake Total 150 360 Balance 150 360 Intake: Oral 150 360 Other: Voiding Method Toilet Toilet Toilet Bedside Commode Bedside Commode Bedside Commode # Voids 2 0 1 # Bowel Movements 2 1 - Exam GENERAL: The patient is a morbid obese woman lying in bed and is not in acute distress. NEUROLOGICAL: Higher mental function: The patient is awake, alert, oriented to self, place and time. Patient is following commands. No aphasia and no neglect. Cranial nerves: The pupils are round, equal and reactive to light and accommodation. Visual matthews are full to confrontation throughout. Extraocular movement is intact no nystagmus is noted. Facial sensation is normal to touch throughout. The facial strength is normal throughout. Hearing is moderately to severely decrease and worse over the right > left (has old hearing loss over bilateral ears right >left). Tongue is midline and moved [id number] without any difficulty. No dysarthria is noted. Shoulder shrug is normal bilaterally. Motor: Gait is deferred. The strength is 5 over 5 throughout upper while lowers are limited because of pain. In the bilateral proximal lowers she had 4/5 and limited because of pain while distal are 5/5. Normal tone and bulk. Cerebellum: Normal finger to nose bilaterally while bilateral lower (heel to landrum) has ataxia but limited because of pain. Sensation: Sensation is normal to touch throughout. Reflexes (right/left): 1+ throughout. Plantars are mute bilaterally. - Labs CBC & Chem 7: 02/02/21 18:07 02/02/21 18:15 Labs: Abnormal Lab Results - Last 24 Hours (Table) 02/04/21 02/04/21 02/05/21 Range/Units 17:12 20:24 07:51 POC Glucose (mg/dL) 125 H 187 H 135 H (75-99) mg/dL 02/05/21 Range/Units 11:58 POC Glucose (mg/dL) 142 H (75-99) mg/dL Assessment and Plan Assessment: * Acute nausea, vomiting and vertigo: Seems more positional vertigo vs post dialysis effect. Cannot rule out stroke (but seem low on the differential). * Chronic unsteady gait, bilateral ataxia: Unknown exactly. There is multiple factors that cause cause this diabetic peripheral neuropathy vs vs thoracic or lumbar myelopathy. Cannot defientely rule out acute stroke but unlikely. 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 * Moderate to severe bilateral internal carotid arteries (left > right. On CTA left is >80% while right is 75%. While carotid duplex left >70% while right is 50-70% stenosis) and seem asymptomatic. 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 Hemodynamic stenosis seen in the internal carotid arteries bilaterally near the carotid artery bifurcation. Moderate plaque formation. High density O pacification left maxillary sinus c onsistent with the mucocele unchanged. In the body of the report it is mentioned that there is probably more than 85% stenosis of the proximal left internal carotid artery. Similar plaque formation is seen at approximately 75% stenosis of the proximal right internal carotid artery. * Carotid duplex is reported as moderate 50-70% right internal carotid artery stenosis. While in the left shows severe greater than 70% stenosis of the left internal carotid artery. * 2-D echo was reported as moderate concentric left ventricle hypertrophy. Ejection fraction between 55-60%. Right ventricle is moderately enlarged. Left atrial is normal in size. * Lipid panel: Triglyceride of 182, cholesterol 139, LDL of 61, HDL of 41. LDL goal in stroke is <70. * Vitamin B12 of 390. I started the patient on Vitamin 500mcg daily since her vitamin b12 is low normal (normal is between 200-944). * Folate level is more than 24 which is considered normal left. * TSH 2.160 which is considered normal. * Last HbA1c is 5.8 (10/12/2020). * Consulted vascular surgery. I don't think her carotid stenosis are symptomatic and from neurological stand point. Vascular team evaluated the patient and no inpatient intervention and to follow-up as outpatient. * Cannot get MRI Brain because of pacemaker. * Currently the patient is on Eliquis 2.5 mg 1 tablet twice a day as well as Lipitor 10 mg daily at bedtime. Recommend possibly consideration of adding aspirin 81mg daily in addition to the Eliquis because of strokelike symptoms and the we'll defer the addition of aspirin to the primary team if its safe because of anemia. ASA not started since getting bladder biopsy this coming up . Continue Lipitor 40 mg daily at bedtime for secondary stroke prophylaxis. * On Continuous cardiac monitoring and on every 4 hours neuro checks. * Physical therapy and occupational therapy are consulted. * Pending copper level. * If work-up are negative, will consider CT thoracic and lumbar down the line and can be done as outpatient since patient gait unsteadiness is chronic issue. Recommend EMG with NCS as outpatient. * Will defer the rest of medical management to the primary team. * I was notified by the patient nurse there is a family dynamics, one of her daughter wants everything to be done on her and another daughter is not as aggressive. The patient the wants to be in nursing facility and she notified yesterday that some of her family members are not inclined of that idea. * Upon discharge, the patient needs to follow-up with a neurologist as outpatient within 1-2 weeks. The plan is discussed with the patient. There is no further work-up from neurological stand point. Jamaal Lux MD Neuro-Hospitalist Time with Patient: Less than 30
[2021-02-05] MEDS ORDERED: diphenhydrAMINE 25 MG CAP PO PRN (13:55)
[2021-02-05] MEDS ORDERED: FLUCONAZOLE 150 MG TAB PO STA (13:56)
--- NOTE | 2021-02-05 15:28 | PN ---
PROGRESS NOTE Patient is seen for followup for end-stage renal disease. She was admitted to the hospital with complaints of blurred vision. She is found to have carotid artery stenosis bilaterally. She has been evaluated by Vascular Surgery. It is noted to be left side greater than 70% and the right side, 50-69 percent in terms of severity. There are no plans for intervention at this time from vascular standpoint. The patient is also being followed by Neurology. EXAMINATION: Today, blood pressure was 109/63, heart rate 69 per minute. She is afebrile. Examination of the heart S1, S2. Examination of the lungs, bilateral breath sounds are heard. Abdomen is soft, nontender. Examination of lower extremities shows chronic edema bilaterally. LABS: Not available from today. On February 02, potassium was 3.5, sodium 136. ASSESSMENT: 1. End-stage renal disease, on hemodialysis on a Friday, Friday, Friday schedule. 2. History of blurred vision and decreased vision, being followed by Neurology. CT scan was unremarkable. Angiographic 70% carotid artery stenosis on 1 side and about 50-69 percent on the other side with no plans for intervention at this time. 3. Chronic kidney disease mineral bone disorder. PLAN: Hemodialysis today. Follow up with Neurology. MMODL / IJN: [id number] /
--- NOTE | 2021-02-05 15:48 | P.PN ---
Subjective Progress Note Date: 02/05/21 Patient is doing well today. She denies any dizziness to me this morning. She reports feeling weak and unable to do her activities of daily living Objective - Vital Signs Vital signs: Vital Signs Temp 97.4 F L 02/05/21 15:00 Pulse 70 02/05/21 15:00 Resp 16 02/05/21 15:00 BP 113/54 02/05/21 15:00 Pulse Ox 95 02/05/21 15:00 Intake & Output 02/04/21 02/05/21 02/05/21 18:59 06:59 18:59 Intake Total 150 360 Balance 150 360 Intake: Oral 150 360 Other: Voiding Method Toilet Toilet Toilet Bedside Commode Bedside Commode Bedside Commode # Voids 2 0 1 # Bowel Movements 2 1 - Exam General: The patient is awake and alert, in no distress Eye: there is normal conjunctiva bilaterally. Neck: The neck is supple, there is no JVD. Cardiovascular: Normal S1-S2, no S3-S4, no murmurs. Respiratory: Lungs clear to auscultation bilaterally Gastrointestinal: Abdomen is soft, nontender Musculoskeletal: There is no pedal edema. Neurological:. Speech is normal. Skin: Skin is warm and dry - Labs CBC & Chem 7: 02/02/21 18:07 02/02/21 18:15 Labs: Abnormal Lab Results - Last 24 Hours (Table) 02/04/21 02/04/21 02/05/21 Range/Units 17:12 20:24 07:51 POC Glucose (mg/dL) 125 H 187 H 135 H (75-99) mg/dL 02/05/21 Range/Units 11:58 POC Glucose (mg/dL) 142 H (75-99) mg/dL Assessment and Plan Assessment: Patient is 85-year-old female with end-stage renal disease on hemodialysis Friday/Friday/Friday, diabetes, congestive heart failure, and multiple other comorbid conditions who presented to the emergency room due to lightheadedness and blurred vision. She underwent dialysis which returned home she felt very weak and though she was going to pass out. She states she started to fall and her family member caught her. In the ER her blood work was essentially at her baseline. Vital signs were stable. Arrangements are made for observation. Orthostatic vitals were negative. Telemetry was unremarkable. Patient continued to complain of some dizziness and had an unusual [id number] noted on the left and therefore neurology was consulted. She underwent CTA head and neck which showed carotid stentosis. Imaging CT brain: Old left posterior frontal lobe infarct CTA head and neck:Stenosis L 85%, Right 75% Carotid doppler: left >70%, right 50-70% Echo: EF 55-60% Dizziness with poor balance, bilateral carotid stenosis -Orthostatic vital signs negative -neurology recs appreciated -Seen and evaluated by vascular surgery. Carotid stenosis is less likely contributing to her symptoms. At the follow-up outpatient. -Fall precautions - currently off eliquis and ASA as plans for bladder biopsy as outpatient on 02/08 End-stage renal disease on hemodialysis Friday/Friday/Friday, anemia of end- stage renal disease -Outpatient follow-up with nephrology -Merary, Nephrocaps Diabetes mellitus -Sliding-scale insulin -Follow Accu-Cheks Chronic diastolic congestive heart failure not in exacerbation, ejection fraction 60-65% -Not chronically on RAMAKRISHNA inhibitor -Continue beta henok -Fluid status controlled with dialysis -Resume Demadex A. fib -Eliquis, atenolol -Flecainide Hypertension, controlled -Continue medications -Follow blood pressures Dyslipidemia -Lipitor Chronic: Hypothyroidism Physical debility: Seen and evaluated by PT/OT. Recommended subacute rehab. Awaiting placement DVT prophylaxis: SCDs Discussed with: patient Anticipated discharge: Tomorrow Anticipated discharge place: [facility] A total of 35 minutes was spent on the care of this complex patient more than 50% of the time was spent in counseling and care coordination.
[2021-02-05] MEDS: TORSEMIDE 20 MG TAB PO SCH (16:29)
[2021-02-05] MEDS: atenoloL 50 MG TAB PO SCH (16:50)
[2021-02-05 17:19] LABS: Glucose,Whole Blood 121 mg/dL (75-99)
[2021-02-05 17:47] LABS: African American GFR (CKD) 21 (>60 ml/min/1.73 sqM); Anion Gap 6 mmol/L; Blood Urea Nitrogen 23 mg/dL (7-17); Calcium 8.7 mg/dL (8.4-10.2); Carbon Dioxide 30 mmol/L (22-30); Chloride 104 mmol/L (98-107); Glucose 147 mg/dL (74-99); Magnesium 1.7 mg/dL (1.6-2.3); Non-African American GFR(CKD) 18 (>60 ml/min/1.73 sqM); Phosphorus 3.6 mg/dL (2.5-4.5); Potassium 4.1 mmol/L (3.5-5.1); Sodium 140 mmol/L (137-145)
[2021-02-05 20:16] LABS: Glucose,Whole Blood 182 mg/dL (75-99)
[2021-02-05] MEDS: MIRTAZAPINE 15 MG TAB PO SCH (20:20)
[2021-02-05] MEDS: ATORVASTATIN 40 MG TAB PO SCH (20:20)
[2021-02-06 02:54] VITALS: PULSE 70; RESP 16
[2021-02-06 03:48] LABS: HCT 31.4 % (37.2-46.3); HGB 9.8 g/dL (12.0-15.0); MCH 36.2 pg (27.0-32.0); MCHC 31.2 g/dL (32.0-37.0); MCV 115.9 fL (80.0-97.0); Mean Platelet Volume 11.1 fL (9.5-12.2); Platelet Count 179 X 10*3/uL (140-440); RBC 2.71 X 10*6/uL (4.10-5.20); WBC 6.25 X 10*3/uL (4.50-10.00)
[2021-02-06] MEDS: DIPHENOX-ATROP 2.5-0.025 MG 1 EACH TAB PO SCH ×2 (04:06→08:59)
[2021-02-06 04:35] LABS: Basophils # (A) 0.02 X 10*3/uL (0.00-0.10); Basophils % (A) 0.3 %; Eosinophils % (A) 1.6 %; Lymphocytes # (A) 1.67 X 10*3/uL (0.90-5.00); Lymphocytes % (A) 26.7 %; Macrocytosis (M) 2+; Neutrophils # (A) 3.94 X 10*3/uL (1.80-7.70); Neutrophils % (A) 63.1 %
[2021-02-06] MEDS: LEVOTHYROXINE 100 MCG TAB PO SCH (05:57)
[2021-02-06 07:12] LABS: Glucose,Whole Blood 132 mg/dL (75-99)
[2021-02-06 07:58] VITALS: BP 111/59; TEMP 97.9
[2021-02-06] MEDS: INSULIN ASPART (NovoLOG) 100 UNIT/ML VIAL SQ SCH ×2 (08:14→12:34)
[2021-02-06] MEDS: CHOLECALCIFEROL 25 MCG (1000 IU) TABLET PO SCH (08:14)
[2021-02-06] MEDS: allopurinoL 100 MG TAB PO SCH (08:14)
[2021-02-06] MEDS: CALCIUM ACETATE 667 MG TAB PO SCH (08:14)
[2021-02-06] MEDS: FOLIC ACID-VIT B COMPLEX-VIT C 1 CAP PO SCH (08:14)
[2021-02-06] MEDS: TORSEMIDE 20 MG TAB PO SCH (08:14)
[2021-02-06] MEDS: atenoloL 50 MG TAB PO SCH (08:15)
[2021-02-06] MEDS: PANTOPRAZOLE 40 MG TABLET PO SCH (08:15)
[2021-02-06] MEDS: FLECAINIDE 50 MG TAB PO SCH (08:15)
[2021-02-06] MEDS: CYANOCOBALAMIN 500 MCG TAB PO SCH (08:15)
--- NOTE | 2021-02-06 10:16 | P.PN ---
Subjective Patient is seen in follow-up for end-stage renal disease. She is maintained on hemodialysis on Friday schedule. No problems with dialysis yesterday. Working with physical therapy. Still complains of blurry vision. Vital signs are stable. General: The patient appeared well nourished and normally developed. HEENT: Head exam is unremarkable. Neck is without jugular venous distension. LUNGS: Breath sounds decreased. HEART: Rate and Rhythm are regular. ABDOMEN: Soft, no distention. EXTREMITITES: Trace edema. Objective - Vital Signs Vital signs: Vital Signs Temp 97.9 F 02/06/21 07:57 Pulse 70 02/06/21 07:57 Resp 16 02/06/21 07:57 BP 111/59 02/06/21 07:57 Pulse Ox 96 02/06/21 07:57 Intake & Output 02/05/21 02/06/21 02/06/21 18:59 06:59 18:59 Intake Total 596 150 Output Total 4000 Balance -3404 150 Intake: Oral 596 150 Output: Hemodialysis 1999 Other: Voiding Method Toilet Toilet Toilet Bedside Commode Bedside Commode # Voids 1 1 # Bowel Movements 1 1 - Labs CBC & Chem 7: 02/05/21 17:03 02/05/21 17:03 Labs: Abnormal Lab Results - Last 24 Hours (Table) 02/03/21 02/05/21 02/05/21 Range/Units 12:59 11:58 17:03 RBC 2.71 L (4.10-5.20) X 10*6/uL Hgb 9.8 L (12.0-15.0) g/dL Hct 31.4 L (37.2-46.3) % MCV 115.9 H (80.0-97.0) fL MCH 36.2 H (27.0-32.0) pg MCHC 31.2 L (32.0-37.0) g/dL RDW 16.0 H (11.5-14.5) % BUN (7-17) mg/dL Creatinine (0.52-1.04) mg/dL Glucose (74-99) mg/dL POC Glucose (mg/dL) 142 H (75-99) mg/dL Methylmalonic Acid 1.55 H (<0.40) umol/L 02/05/21 02/05/21 02/05/21 Range/Units 17:03 17:17 20:14 RBC (4.10-5.20) X 10*6/uL Hgb (12.0-15.0) g/dL Hct (37.2-46.3) % MCV (80.0-97.0) fL MCH (27.0-32.0) pg MCHC (32.0-37.0) g/dL RDW (11.5-14.5) % BUN 23 H (7-17) mg/dL Creatinine 2.35 H (0.52-1.04) mg/dL Glucose 147 H (74-99) mg/dL POC Glucose (mg/dL) 121 H 182 H (75-99) mg/dL Methylmalonic Acid (<0.40) umol/L 02/06/21 Range/Units 07:11 RBC (4.10-5.20) X 10*6/uL Hgb (12.0-15.0) g/dL Hct (37.2-46.3) % MCV (80.0-97.0) fL MCH (27.0-32.0) pg MCHC (32.0-37.0) g/dL RDW (11.5-14.5) % BUN (7-17) mg/dL Creatinine (0.52-1.04) mg/dL Glucose (74-99) mg/dL POC Glucose (mg/dL) 132 H (75-99) mg/dL Methylmalonic Acid (<0.40) umol/L Assessment and Plan Plan: Assessment: 1. End-stage renal disease maintained on hemodialysis on Friday schedule. 2. Blurred vision. Neurology following. She is noted to have bilateral carotid artery stenosis. 3. Chronic kidney disease mineral bone disease maintained on PhosLo. 4. Diabetes mellitus. Plan: Hemodialysis tomorrow. Possible discharge to [facility] today.
--- NOTE | 2021-02-06 10:47 | P.DS ---
Providers Date of admission: 02/05/21 15:44 Expected date of discharge: 02/06/21 Attending physician: Maryanne Mina MD Consults: 02/03/21 10:17 Consult Physician Routine Consulting Provider: Jamaal Lux Consult Reason/Comments: poor heal to landrum left, off balanced Do you want consulting provider notified?: Yes 02/03/21 13:18 Consult Physician Routine Consulting Provider: Denilson Alcocer Consult Reason/Comments: ESRD Do you want consulting provider notified?: Yes 02/04/21 07:37 Consult Physician Routine Consulting Provider: Nba Ramirez Consult Reason/Comments: bilateral internal carotid stenosis Do you want consulting provider notified?: Yes Primary care physician: Liza Vargas MD Hospital Course: Patient is 85-year-old female with end-stage renal disease on hemodialysis Friday/Friday/Friday, diabetes, congestive heart failure, and multiple other comorbid conditions who presented to the emergency room due to lightheadedness and blurred vision. She underwent dialysis which returned home she felt very weak and though she was going to pass out. She states she started to fall and her family member caught her. In the ER her blood work was essentially at her baseline. Vital signs were stable. Arrangements are made for observation. Orthostatic vitals were negative. Telemetry was unremarkable. Patient continued to complain of some dizziness and had an unusual [id number] noted on the left and therefore neurology was consulted. She underwent CTA head and neck which showed carotid stentosis. 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 Carotid stenosis is less likely contributing to her symptoms. Plan to follow-up outpatient. - currently off eliquis and ASA as plans for bladder biopsy as outpatient on 02/08 End-stage renal disease on hemodialysis Friday/Friday/Friday, anemia of end- stage renal disease -Outpatient follow-up with nephrology -Merary Diabetes mellitus -Continue home regimen Chronic diastolic congestive heart failure not in exacerbation, ejection fraction 60-65% -Not chronically on RAMAKRISHNA inhibitor -Continue beta henok -Fluid status controlled with dialysis -Resume Demadex A. fib -Eliquis, atenolol -Flecainide Hypertension, controlled -Continue medications -Follow blood pressures Dyslipidemia -Lipitor Chronic: Hypothyroidism Physical debility: Seen and evaluated by PT/OT. Recommended subacute rehab initially then changed assessment good to go home Patient will be discharged home in a stable condition. For further details about this hospitalization please refer to the electronic chart. Time spent on discharge > 30 minutes including counseling and coordination of care Patient Condition at Discharge: Stable Plan - Discharge Summary Discharge Rx Participant: Yes New Discharge Prescriptions: New Atorvastatin [Lipitor] 40 mg PO HS #30 tab Cyanocobalamin [Vitamin B-12] 500 mcg PO DAILY #30 tab Continue Levothyroxine Sodium [Synthroid] 100 mcg PO DAILY allopurinoL [Zyloprim] 100 mg PO DAILY atenoloL [Tenormin] 25 mg PO HS Pantoprazole [Protonix] 40 mg PO DAILY Insulin Lispro [humaLOG Kwikpen] See Protocol SQ AC-TID Torsemide [Demadex] 40 mg PO DAILY Apixaban [Eliquis] 2.5 mg PO BID Calcium Acetate [PhosLo] 667 mg PO DAILY Mirtazapine [Remeron] 15 mg PO HS Flecainide [Tambocor] 50 mg PO BID Midodrine [ProAmatine] 5 mg PO MOWEFR PRN PRN Reason: low heart rate Calcium Carbonate [Tums] 1,000 mg PO QID PRN PRN Reason: between meals and snacks Atenolol [Tenormin] 50 mg PO DAILY Folic Acid-Vit B Complex-Vit C [Nephrocaps] 1 cap PO DAILY Cholecalciferol [Vitamin D3 (25 Mcg = 1000 Iu)] 100 mcg PO DAILY Discontinued Ondansetron [Zofran] 4 mg PO Q8HR PRN PRN Reason: Nausea And Vomiting Simvastatin [Zocor] 20 mg PO HS Diphenox-Atrop 2.5-0.025 mg [Lomotil] 1 tab PO Q8H Lidocaine-Prilocaine Cream [Emla Cream 2.5%/2.5%] 1 applic TOPICAL DAILY PRN PRN Reason: dialysis Loperamide HCl [Imodium A-D] 2 mg PO DAILY Loperamide [Imodium] 2 - 4 mg PO QID PRN PRN Reason: Diarrhea Acetaminophen Tab [Tylenol] 1,000 mg PO Q8H Discharge Medication List Levothyroxine Sodium [Synthroid] 100 mcg PO DAILY 01/31/14 [History] allopurinoL [Zyloprim] 100 mg PO DAILY 01/18/17 [History] atenoloL [Tenormin] 25 mg PO HS 10/10/17 [History] Pantoprazole [Protonix] 40 mg PO DAILY 08/16/19 [History] Insulin Lispro [humaLOG Kwikpen] See Protocol SQ AC-TID 02/04/20 [History] Apixaban [Eliquis] 2.5 mg PO BID 02/22/20 [History] Torsemide [Demadex] 40 mg PO DAILY 02/22/20 [History] Calcium Acetate [PhosLo] 667 mg PO DAILY 05/25/20 [History] Mirtazapine [Remeron] 15 mg PO HS 05/25/20 [History] Flecainide [Tambocor] 50 mg PO BID 07/26/20 [History] Atenolol [Tenormin] 50 mg PO DAILY 01/10/21 [History] Calcium Carbonate [Tums] 1,000 mg PO QID PRN 01/10/21 [History] Cholecalciferol [Vitamin D3 (25 Mcg = 1000 Iu)] 100 mcg PO DAILY 01/10/21 [History] Folic Acid-Vit B Complex-Vit C [Nephrocaps] 1 cap PO DAILY 01/10/21 [History] Midodrine [ProAmatine] 5 mg PO MOWEFR PRN 01/10/21 [History] Atorvastatin [Lipitor] 40 mg PO HS #30 tab 02/06/21 [Rx] Cyanocobalamin [Vitamin B-12] 500 mcg PO DAILY #30 tab 02/06/21 [Rx] Follow up Appointment(s)/Referral(s): Liza Vargas MD [Primary Care Provider] - 1-2 days [facility], [NON-STAFF] - 1 Week Patient Instructions/Handouts: Syncope (DC) Activity/Diet/Wound Care/Special Instructions: Follow up with Neurologist after discharge Discharge Disposition: HOME WITH HOME HEALTH SERVICES
[2021-02-06 12:00] LABS: Glucose,Whole Blood 175 mg/dL (75-99)
== END 2021-02-06 14:26 | disposition home health service (06) ==
LOC: EC 17:36 → 6NMEDSUR 20:18 → INTOOBSV 02-05 15:44 → OBSVTOIN 02-05 15:44 → UNDODISIN 02-06 14:26
PROVIDERS: ADMIT Internal Medicine; ATTEND Internal Medicine
DX: I65.23 Occlusion and stenosis of bilateral carotid arteries (principal); R27.0 Ataxia, unspecified; I50.32 Chronic diastolic (congestive) heart failure; I13.2 Hypertensive heart and chronic kidney disease with heart failure and with stage 5 chronic kidney disease, or end stage renal disease; E11.22 Type 2 diabetes mellitus with diabetic chronic kidney disease; N18.6 End stage renal disease; D63.8 Anemia in other chronic diseases classified elsewhere; I48.91 Unspecified atrial fibrillation; E78.5 Hyperlipidemia, unspecified; E03.9 Hypothyroidism, unspecified; E11.42 Type 2 diabetes mellitus with diabetic polyneuropathy; I49.5 Sick sinus syndrome; H54.8 Legal blindness, as defined in USA; H91.90 Unspecified hearing loss, unspecified ear; I25.2 Old myocardial infarction; I25.10 Atherosclerotic heart disease of native coronary artery without angina pectoris; M06.9 Rheumatoid arthritis, unspecified; E66.01 Morbid (severe) obesity due to excess calories; M19.90 Unspecified osteoarthritis, unspecified site; M89.8X9 Other specified disorders of bone, unspecified site; R53.1 Weakness; R30.0 Dysuria; D53.9 Nutritional anemia, unspecified; G47.33 Obstructive sleep apnea (adult) (pediatric); K21.9 Gastro-esophageal reflux disease without esophagitis; N32.9 Bladder disorder, unspecified; M25.561 Pain in right knee; M25.562 Pain in left knee; M25.559 Pain in unspecified hip; R53.81 Other malaise; N81.6 Rectocele; N81.10 Cystocele, unspecified; R79.1 Abnormal coagulation profile; Z79.01 Long term (current) use of anticoagulants; Z79.4 Long term (current) use of insulin; Z79.890 Hormone replacement therapy; Z79.899 Other long term (current) drug therapy; Z88.0 Allergy status to penicillin; Z88.2 Allergy status to sulfonamides; Z88.1 Allergy status to other antibiotic agents; Z88.5 Allergy status to narcotic agent; Z16.12 Extended spectrum beta lactamase (ESBL) resistance; Z99.2 Dependence on renal dialysis; Z95.0 Presence of cardiac pacemaker; Z90.710 Acquired absence of both cervix and uterus; Z87.440 Personal history of urinary (tract) infections; Z86.718 Personal history of other venous thrombosis and embolism; Z86.711 Personal history of pulmonary embolism; Z83.3 Family history of diabetes mellitus; Z82.49 Family history of ischemic heart disease and other diseases of the circulatory system
CPT/HCPCS: 96374; 99285; 36415; 94760; 93005; 93306; 97530 ×2; 97162; 97166; 83921; 80061; 80053; 80048; 84443; 82607; 82525; 82746; 83735 ×2; 84100; 84484 ×2; 85025 ×2; 85610; 85730; 87635; 71046; 93880; 70496; 70450; 70498; G0378 ×5; J2765; Q9967; 90935

== ENCOUNTER 2021-02-11 18:01 | Observation (INO) | payer MEDICARE ==
--- NOTE | 2021-02-11 18:36 | ED ---
General Adult HPI - General Chief complaint: Weakness Stated complaint: weakness Time Seen by Provider: 02/11/21 18:26 Source: patient, EMS Mode of arrival: EMS Limitations: no limitations - History of Present Illness Initial comments: Patient presents to the ED by ambulance for evaluation. Patient states that she has had chills since yesterday, and she states that she has felt generally weak today. Patient states that she was recently told that her urine culture was positive, and she states that she is not currently on any antibiotic treatment. Patient admits to having burning dysuria, but she states that she has had that for years. Patient is a hemodialysis patient, and she states that she was last dialyzed on Friday (2 days ago). Patient states that she does still make a small amount of urine daily. Patient denies taking any antipyretic medication today. Patient states that she is fully vaccinated against Covid. Patient denies having any pain, trauma or injury, headache, focal neuro deficit, neck pain or stiffness, sore throat, otalgia, chest pain, dyspnea, cough or cold symptoms, palpitations, dizziness, abdominal pain, nausea/vomiting/diarrhea, hematuria, rash, or any other symptoms or complaints. - Related Data Home Medications Medication Instructions Recorded Confirmed Levothyroxine Sodium [Synthroid] 100 mcg PO DAILY 01/31/14 02/02/21 allopurinoL [Zyloprim] 100 mg PO DAILY 01/18/17 02/02/21 atenoloL [Tenormin] 25 mg PO HS 10/10/17 02/02/21 Pantoprazole [Protonix] 40 mg PO DAILY 08/16/19 02/02/21 Insulin Lispro [humaLOG Kwikpen] See Protocol SQ AC-TID 02/04/20 02/02/21 Apixaban [Eliquis] 2.5 mg PO BID 02/22/20 02/02/21 Torsemide [Demadex] 40 mg PO DAILY 02/22/20 02/02/21 Calcium Acetate [PhosLo] 667 mg PO DAILY 05/25/20 02/02/21 Mirtazapine [Remeron] 15 mg PO HS 05/25/20 02/02/21 Flecainide [Tambocor] 50 mg PO BID 07/26/20 02/02/21 Atenolol [Tenormin] 50 mg PO DAILY 01/10/21 02/02/21 Calcium Carbonate [Tums] 1,000 mg PO QID PRN 01/10/21 02/02/21 Cholecalciferol [Vitamin D3 (25 100 mcg PO DAILY 01/10/21 02/02/21 Mcg = 1000 Iu)] Folic Acid-Vit B Complex-Vit C 1 cap PO DAILY 01/10/21 02/02/21 [Nephrocaps] Midodrine [ProAmatine] 5 mg PO MOWEFR PRN 01/10/21 02/02/21 Previous Rx's Medication Instructions Recorded Atorvastatin [Lipitor] 40 mg PO HS #30 tab 02/06/21 Cyanocobalamin [Vitamin B-12] 500 mcg PO DAILY #30 tab 02/06/21 Allergies Allergy/AdvReac Type Severity Reaction Status Date / Time amoxicillin Allergy Rash/Hives Verified 02/02/21 19:15 Penicillins Allergy Rash/Hives Verified 02/02/21 19:15 Sulfa (Sulfonamide Allergy Rash/Hives Verified 02/02/21 19:15 Antibiotics) meperidine HCl [From Demerol] AdvReac Nausea & Verified 02/02/21 19:15 Vomiting Review of Systems ROS Statement: Those systems with pertinent positive or pertinent negative responses have been documented in the HPI. ROS Other: All systems not noted in ROS Statement are negative. Past Medical History Past Medical History: Atrial Fibrillation, Heart Failure, Diabetes Mellitus, Dialysis, Deep Vein Thrombosis (DVT), GERD/Reflux, Hyperlipidemia, Hypertension, Myocardial Infarction (MT), Osteoarthritis (OA), Pulmonary Embolus (PE), Renal Disease, Rheumatoid Arthritis (RA), Sleep Apnea/CPAP/BIPAP, Thyroid Disorder Additional Past Medical History / Comment(s): Pt admitted to [facility] on 02/[facility]/20 with UTI/ESBL/bacteremia. Other hx: IDDM type II, diabetic neuropathy bilateral hands/feet, ESRD with hemodialysis, has temporary boone cath for dialysis d/t R upper arm recent fistula surgery 02/01/20 in which fistula was repositioned, R arm/shoulder limited ROM since fistula surgery, current UTI, recurrent UTIs, pt was told she had a past MT d/t EKG, palpitations, SSS with pacer, HARRIS with Cpap, chronic back and bilateral knee pain, hypothyroid. Last Myocardial Infarction Date:: unknown History of Any Multi-Drug Resistant Organisms: ESBL Date of last positivie culture/infection: 02/04/20 MDRO Source:: ESBL URINE Past Surgical History: Bladder Surgery, Hysterectomy, Pacemaker Additional Past Surgical History / Comment(s): 02/01/20 R upper arm fistula repositioned, R chest boone cath, rectocele, cystocele, hemorrhoidectomy, bilateral leg vein strippings, bilateral cataract removal, Picc lines Past Anesthesia/Blood Transfusion Reactions: No Reported Reaction Type of Cardiac Device: Permanent Pacemaker Device Placement Date:: 01/2017 Past Psychological History: No Psychological Hx Reported Smoking Status: Never smoker Past Alcohol Use History: None Reported Past Drug Use History: None Reported - Past Family History Father Family Medical History: AFIB, AICD/Pacemaker, Congestive Heart Failure (CHF), Coronary Artery Disease (CAD), Diabetes Mellitus, Dialysis, Deep Vein Thrombosis (DVT), Hyperlipidemia, Hypertension, Myocardial Infarction (MT), Rheumatoid Arthritis (RA) Mother Family Medical History: Unable to Obtain Sister(s) Family Medical History: Cancer General Exam Limitations: no limitations General appearance: alert, in no apparent distress Head exam: Present: atraumatic, normocephalic Eye exam: Present: normal appearance, EOMI ENT exam: Present: normal oropharynx, mucous membranes moist Neck exam: Present: other (Trachea is in midline). Absent: tenderness, meningismus Respiratory exam: Present: normal lung sounds bilaterally. Absent: respiratory distress, wheezes, rales, rhonchi, stridor Cardiovascular Exam: Present: regular rate, normal rhythm, normal heart sounds, other (Normal radial pulses bilaterally) GI/Abdominal exam: Present: soft. Absent: distended, tenderness, guarding Extremities exam: Present: other (Right upper arm AV fistula with palpable thrill). Absent: tenderness, pedal edema, calf tenderness Back exam: Absent: CVA tenderness (R), CVA tenderness (L) Neurological exam: Present: alert, oriented X3. Absent: motor sensory deficit Psychiatric exam: Present: normal affect, normal mood Skin exam: Present: warm, dry, intact, normal color Course Vital Signs 02/11/21 02/11/21 18:04 20:06 Temperature 100.2 F H 99.7 F H Pulse Rate 70 70 Respiratory 18 18 Rate Blood Pressure 119/51 95/38 O2 Sat by Pulse 95 95 Oximetry - Reevaluation(s) Reevaluation #1: 02/11/21 20:09 Patient denies development of any new symptoms while in the ED. Patient remains alert and breathing comfortably with a normal room air oxygen saturation. Patient has been hemodynamically stable while in the ED. Patient's daughter is now in the ED at bedside with the patient. Patient's daughter reports that they were recently told that the patient grew VRE in her urine, and she states that her primary care provider is attempting to get the patient an appointment to see Dr. Ayon (infectious disease). Patient and daughter are aware the patient's test results, and they both agreed hospital admission at this time. 02/11/21 20:21 Case, H&P, test results and ED management thus far were discussed with Dr. Araiza. He accepts hospital admission. He agrees with nephrology and infectious disease consultations. He has no further recommendations at this time. EKG Findings - EKG Comments: EKG Findings:: AV paced rhythm, ventricular rate of 70 bpm, QRS duration of 210 ms, QTc interval of 535 ms Medical Decision Making - Medical Decision Making Given the patient's UA findings and low-grade fever, I suspect that the patient's generalized weakness and chills are likely secondary to a urinary tract infection. I do not see the VRE growth on any of the patient's recent urine culture reports within the EMR, however, given the patient's daughter's report that the patient's PCP called them reporting that the patient grew VRE in her urine, patient was treated in the ED with both IV ceftriaxone and IV linezolid. Dr. Araiza has accepted hospital admission. Orders for infectious disease and nephrology consultations have been placed. - Lab Data Result diagrams: 02/11/21 19:10 02/11/21 19:10 Lab Results 02/11/21 02/11/21 02/11/21 Range/Units 19:10 19:10 19:10 WBC 4.4 (3.8-10.6) k/uL RBC 2.56 L (3.80-5.40) m/uL Hgb 9.5 L (11.4-16.0) gm/dL Hct 27.4 L (34.0-46.0) % MCV 107.1 H (80.0-100.0) fL MCH 37.1 H (25.0-35.0) pg MCHC 34.6 (31.0-37.0) g/dL RDW 15.0 (11.5-15.5) % Plt Count 131 L (150-450) k/uL MPV 7.9 Neutrophils % 80 % Lymphocytes % 12 % Monocytes % 6 % Eosinophils % 1 % Basophils % 1 % Neutrophils # 3.5 (1.3-7.7) k/uL Lymphocytes # 0.5 L (1.0-4.8) k/uL Monocytes # 0.3 (0-1.0) k/uL Eosinophils # 0.0 (0-0.7) k/uL Basophils # 0.0 (0-0.2) k/uL Macrocytosis Moderate PT 10.6 (9.0-12.0) sec INR 1.0 (<1.2) APTT 27.0 (22.0-30.0) sec Sodium 133 L (137-145) mmol/L Potassium 4.4 (3.5-5.1) mmol/L Chloride 98 (98-107) mmol/L Carbon Dioxide 26 (22-30) mmol/L Anion Gap 9 mmol/L BUN 44 H (7-17) mg/dL Creatinine 4.10 H (0.52-1.04) mg/dL Est GFR (CKD-EPI)AfAm 11 (>60 ml/min/1.73 sqM) Est GFR (CKD-EPI)NonAf 9 (>60 ml/min/1.73 sqM) Glucose 123 H (74-99) mg/dL Plasma Lactic Acid Gilberto (0.7-2.0) mmol/L Calcium 8.3 L (8.4-10.2) mg/dL Magnesium 1.4 L (1.6-2.3) mg/dL Total Bilirubin 0.3 (0.2-1.3) mg/dL AST 23 (14-36) U/L ALT 13 (4-34) U/L Alkaline Phosphatase 118 (38-126) U/L Troponin I (0.000-0.034) ng/mL Total Protein 5.3 L (6.3-8.2) g/dL Albumin 3.0 L (3.5-5.0) g/dL TSH 0.037 L (0.465-4.680) mIU/L Urine Color Urine Appearance (Clear) Urine pH (5.0-8.0) Ur Specific [place] (1.001-1.035) Urine Protein (Negative) Urine Glucose (UA) (Negative) Urine Ketones (Negative) Urine Blood (Negative) Urine Nitrite (Negative) Urine Bilirubin (Negative) Urine Urobilinogen (<2.0) mg/dL Ur Leukocyte Esterase (Negative) Urine RBC (0-5) /hpf Urine WBC (0-5) /hpf Urine WBC Clumps (None) /hpf Urine Bacteria (None) /hpf 02/11/21 02/11/21 02/11/21 Range/Units 19:10 19:10 19:17 WBC (3.8-10.6) k/uL RBC (3.80-5.40) m/uL Hgb (11.4-16.0) gm/dL Hct (34.0-46.0) % MCV (80.0-100.0) fL MCH (25.0-35.0) pg MCHC (31.0-37.0) g/dL RDW (11.5-15.5) % Plt Count (150-450) k/uL MPV Neutrophils % % Lymphocytes % % Monocytes % % Eosinophils % % Basophils % % Neutrophils # (1.3-7.7) k/uL Lymphocytes # (1.0-4.8) k/uL Monocytes # (0-1.0) k/uL Eosinophils # (0-0.7) k/uL Basophils # (0-0.2) k/uL Macrocytosis PT (9.0-12.0) sec INR (<1.2) APTT (22.0-30.0) sec Sodium (137-145) mmol/L Potassium (3.5-5.1) mmol/L Chloride (98-107) mmol/L Carbon Dioxide (22-30) mmol/L Anion Gap mmol/L BUN (7-17) mg/dL Creatinine (0.52-1.04) mg/dL Est GFR (CKD-EPI)AfAm (>60 ml/min/1.73 sqM) Est GFR (CKD-EPI)NonAf (>60 ml/min/1.73 sqM) Glucose (74-99) mg/dL Plasma Lactic Acid Gilberto 1.9 (0.7-2.0) mmol/L Calcium (8.4-10.2) mg/dL Magnesium (1.6-2.3) mg/dL Total Bilirubin (0.2-1.3) mg/dL AST (14-36) U/L ALT (4-34) U/L Alkaline Phosphatase (38-126) U/L Troponin I <0.012 (0.000-0.034) ng/mL Total Protein (6.3-8.2) g/dL Albumin (3.5-5.0) g/dL TSH (0.465-4.680) mIU/L Urine Color Yellow Urine Appearance Turbid H (Clear) Urine pH 8.0 (5.0-8.0) Ur Specific [place] 1.020 (1.001-1.035) Urine Protein 2+ H (Negative) Urine Glucose (UA) Negative (Negative) Urine Ketones Negative (Negative) Urine Blood 2 (Negative) Urine Nitrite Positive (Negative) Urine Bilirubin Negative (Negative) Urine Urobilinogen <0.2 (<2.0) mg/dL Ur Leukocyte Esterase Large (Negative) Urine RBC 3 (0-5) /hpf Urine WBC >182 H (0-5) /hpf Urine WBC Clumps Many H (None) /hpf Urine Bacteria Few H (None) /hpf - Radiology Data Radiology results: report reviewed (Chest x-ray: No active cardiopulmonary disease) Disposition Clinical Impression: Generalized weakness, UTI (urinary tract infection), Chronic renal failure Disposition: ADMITTED IP TO THIS HOSP Condition: Stable Is patient prescribed a controlled substance at d/c from ED?: No Time of Disposition: 20:21
[2021-02-11] MEDS ORDERED: ACETAMINOPHEN TAB 500 MG TAB PO STA (18:55)
[2021-02-11 19:17] LABS: Basophils % (A) 1 %; Eosinophils % (A) 1 %; HCT 27.4 % (34.0-46.0); HGB 9.5 gm/dL (11.4-16.0); Lymphocytes # (A) 0.5 k/uL (1.0-4.8); Lymphocytes % (A) 12 %; MCH 37.1 pg (25.0-35.0); MCHC 34.6 g/dL (31.0-37.0); MCV 107.1 fL (80.0-100.0); Macrocytosis Moderate; Mean Platelet Volume 7.9; Monocytes # (A) 0.3 k/uL (0-1.0); Monocytes % (A) 6 %; Neutrophils # (A) 3.5 k/uL (1.3-7.7); Neutrophils % (A) 80 %; Platelet Count 131 k/uL (150-450); RBC 2.56 m/uL (3.80-5.40); WBC 4.4 k/uL (3.8-10.6)
[2021-02-11 19:25] LABS: Prothrombin Time 10.6 sec (9.0-12.0)
[2021-02-11 19:33] LABS: Calcium 8.3 mg/dL (8.4-10.2); Magnesium 1.4 mg/dL (1.6-2.3); Potassium 4.4 mmol/L (3.5-5.1); Total Bilirubin 0.3 mg/dL (0.2-1.3); Total Protein 5.3 g/dL (6.3-8.2)
[2021-02-11 19:47] LABS: Appearance,Urine Turbid (Clear); Bilirubin,Urine Negative (Negative); Blood,Urine 2 (Negative); Color,Urine Yellow; Glucose,Urine (UA) Negative (Negative); Ketones,Urine Negative (Negative); Protein,Urine 2+ (Negative)
[2021-02-11 19:48] LABS: Bacteria,Urine Few /hpf; Leukocyte Esterase,Urine Large (Negative); Nitrite,Urine Positive (Negative); RBC,Urine 3 /hpf (0-5); Urobilinogen,Urine <0.2 mg/dL (<2.0); WBC,Urine >182 /hpf (0-5)
[2021-02-11] MEDS ORDERED: LINEZOLID 600 MG in DEXTROSE/WATER 1 300ML.BAG IVPB STA (20:08)
--- NOTE | 2021-02-11 20:32 | XR ---
EXAMINATION TYPE: XR chest 2V DATE OF EXAM: 02/11/2021 COMPARISON: 02/02/2021 HISTORY: Nausea and vomiting TECHNIQUE: 2 views FINDINGS: There is no heart failure nor confluent pneumonic infiltrate. There is left axillary pacema ker. Costophrenic angles are clear. There are no hilar masses. There are chest leads. IMPRESSION: No active cardiopulmonary disease. Minimal partly fibrotic changes. No adverse change com pared to old exam.
[2021-02-12] MEDS ORDERED: MIDODRINE 5 MG TAB PO PRN (01:11)
--- NOTE | 2021-02-12 02:02 | P.HPIM ---
History of Present Illness H&P Date: 02/11/21 Chief Complaint: generalized weakness 85-year-old female with approximately, diastolic CHF, diabetes mellitus, and stage renal disease on hemodialysis Friday right arm AV fistula Patient comes in due to generalized weakness over the past day or 2 her most r ecent dialysis was Friday when he took 3 L with premature irregular for her. She tolerated pretty well. However today she was feeling extremely weak with low-grade fever, she denies any chest pain or trouble breathing denies any nausea vomiting or abdominal pain denies any GI bleeding. She was told by her primary doctor that her urine was positive for VRE she gets recurrent urinary tract infections and decided to come in for evaluation. In the ED her vital signs were stable patient blood work overall showed chronic anemia with macrocytosis and mild thrombocytopenia, end-stage renal disease, and hypomagnesemia. Most recent echocardiogram showed diastolic CHF with left ventricular ejection fraction 55-60% Recent CT angiogram the neck suggested left carotid stenosis with more than 70% occlusion and right carotid between 5070 percent patient was evaluated by vascular surgery no recommendations were made for any immediate intervention during her most recent admission to the hospital Patient was hospitalized in mid December and early January of this year for similar complaints of generalized weakness and some focal neuro deficits at that time Currently patient feels well she is laying down comfortably in bed trying to get some rest and sleep she is anticipating hemodialysis in the morning and requesting medications to continue she denies any urinary symptoms she does makes little urine she described it as turbid , but denies any hematuria dysuria or lower abdominal pain Review of Systems Pertinent positives as noted in HPI. All other systems were reviewed and are negative Past Medical History Past Medical History: Atrial Fibrillation, Heart Failure, CVA/TIA, Diabetes Mellitus, Dialysis, Deep Vein Thrombosis (DVT), GERD/Reflux, Hyperlipidemia, Hypertension, Myocardial Infarction (ME), Osteoarthritis (OA), Pulmonary Embolus (PE), Renal Disease, Rheumatoid Arthritis (RA), Sleep Apnea/CPAP/BIPAP, Thyroid Disorder Additional Past Medical History / Comment(s): on 02/06/20 with UTI /ESBL/bacteremia. Other hx: IDDM type II, diabetic neuropathy bilateral hands/feet, ESRD with hemodialysis, recurrent UTIs, pt was told she had a past ME d/t EKG, palpitations, SSS with pacer, HARRIS with Cpap, chronic back and bilateral knee pain, hypothyroid. bilat carotid artery occlusions and a stroke she was unaware of Last Myocardial Infarction Date:: unknown History of Any Multi-Drug Resistant Organisms: ESBL, VRE Date of last positivie culture/infection: 02/04/20 MDRO Source:: ESBL URINE Past Surgical History: Bladder Surgery, Hysterectomy, Pacemaker Additional Past Surgical History / Comment(s): 02/01/20 R upper arm fistula repositioned, R chest boone cath, rectocele, cystocele, hemorrhoidectomy, bilateral leg vein strippings, bilateral cataract removal, Picc lines Past Anesthesia/Blood Transfusion Reactions: No Reported Reaction Type of Cardiac Device: Permanent Pacemaker Device Placement Date:: 01/2017 Past Psychological History: No Psychological Hx Reported Additional Psychological History / Comment(s): Pt resides in her own home. Her vicky and son-in-law are temporarily staying with her to help out. She has a CPap, rolling walker, cane, life alert. 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 She recieves meals on wheels. Pt currently receiving home care thru [facility] Smoking Status: Never smoker Past Alcohol Use History: None Reported Past Drug Use History: None Reported - Past Family History Father Family Medical History: AFIB, AICD/Pacemaker, Congestive Heart Failure (CHF), Coronary Artery Disease (CAD), Diabetes Mellitus, Dialysis, Deep Vein Thrombosis (DVT), Hyperlipidemia, Hypertension, Myocardial Infarction (ME), Rheumatoid Arthritis (RA) Mother Family Medical History: Unable to Obtain Sister(s) Family Medical History: Cancer Medications and Allergies Home Medications Medication Instructions Recorded Confirmed Type Levothyroxine Sodium [Synthroid] 100 mcg PO DAILY 01/31/14 02/11/21 History allopurinoL [Zyloprim] 100 mg PO DAILY 01/18/17 02/11/21 History atenoloL [Tenormin] 25 mg PO HS 10/10/17 02/11/21 History Pantoprazole [Protonix] 40 mg PO DAILY 08/16/19 02/11/21 History Insulin Lispro [humaLOG Kwikpen] See Protocol SQ AC-TID 02/04/20 02/11/21 History Apixaban [Eliquis] 2.5 mg PO BID 02/22/20 02/11/21 History Torsemide [Demadex] 40 mg PO DAILY 02/22/20 02/11/21 History Calcium Acetate [PhosLo] 667 mg PO DAILY 05/25/20 02/11/21 History Mirtazapine [Remeron] 15 mg PO HS 05/25/20 02/11/21 History Flecainide [Tambocor] 50 mg PO BID 07/26/20 02/11/21 History Atenolol [Tenormin] 50 mg PO DAILY 01/10/21 02/11/21 History Calcium Carbonate [Tums] 1,000 mg PO QID PRN 01/10/21 02/11/21 History Cholecalciferol [Vitamin D3 (25 100 mcg PO DAILY 01/10/21 02/11/21 History Mcg = 1000 Iu)] Folic Acid-Vit B Complex-Vit C 1 cap PO DAILY 01/10/21 02/11/21 History [Nephrocaps] Midodrine [ProAmatine] 5 mg PO MOWEFR PRN 01/10/21 02/11/21 History Atorvastatin [Lipitor] 40 mg PO HS #30 tab 02/06/21 02/11/21 Rx Cyanocobalamin [Vitamin B-12] 500 mcg PO DAILY #30 tab 02/06/21 02/11/21 Rx Allergies Allergy/AdvReac Type Severity Reaction Status Date / Time amoxicillin Allergy Rash/Hives Verified 02/02/21 19:15 Penicillins Allergy Rash/Hives Verified 02/02/21 19:15 Sulfa (Sulfonamide Allergy Rash/Hives Verified 02/02/21 19:15 Antibiotics) meperidine HCl [From Demerol] AdvReac Nausea & Verified 02/02/21 19:15 Vomiting Physical Exam Vitals: Vital Signs Temp Pulse Resp BP Pulse Ox 02/11/21 22:17 99.3 F 70 19 118/45 98 02/11/21 21:31 99.1 F 70 18 110/49 96 02/11/21 20:30 70 18 100/58 96 02/11/21 20:06 99.7 F H 70 18 95/38 95 02/11/21 18:04 100.2 F H 70 18 119/51 95 Intake and Output 02/11/21 02/11/21 02/11/21 06:59 14:59 22:59 Other: Weight 87.09 kg Constitutional: No acute distress, conversant, pleasant Eyes: Anicteric sclerae, moist conjunctiva, Pupils equal round reactive to light ENMT: NC/AT Oropharynx clear, no erythema, or exudates Neck: Supple, FROM, no masses, or JVD No carotid bruits No thyromegaly Lungs: Clear to auscultation Clear to percussion Normal respiratory effort, no accessory muscle use Cardiovascular: Heart regular in rate and rhythm, No murmurs, gallops, or rubs +1 bilateral peripheral edema Abdominal: Soft Nontender, no guarding, rebound or rigidity Abdomen moving with respiration Normoactive bowel sounds No hepatomegaly, No splenomegaly No palpable mass No abdominal wall hernia noted Skin: Positive thrill on the right arm AV fistula Normal temperature, tone, texture, turgor No induration No subcutaneous nodules Patient reported some sloughing on her bottom she claims that it's because of long hours of dialysis while sitting down Extremities: No digital cyanosis No clubbing Pedal pulses intact and symmetrical Radial pulses intact and symmetrical No calf tenderness Psychiatric: Alert and oriented to person, place Appropriate affect fair judgement Neuro Muscles Strength 4/5 in all 4 extremities Sensation to light touch grossly present throughout Cranial nerves II-XII grossly intact No focal sensory deficits Lymphatics: no palpable cervical or supraclavicular , or inguinal lymph nodes Results CBC & Chem 7: 02/11/21 19:10 02/11/21 19:10 Labs: Abnormal Lab Results - Last 24 Hours (Table) 02/11/21 02/11/21 02/11/21 Range/Units 19:10 19:10 19:17 RBC 2.56 L (3.80-5.40) m/uL Hgb 9.5 L (11.4-16.0) gm/dL Hct 27.4 L (34.0-46.0) % MCV 107.1 H (80.0-100.0) fL MCH 37.1 H (25.0-35.0) pg Plt Count 131 L (150-450) k/uL Lymphocytes # 0.5 L (1.0-4.8) k/uL Sodium 133 L (137-145) mmol/L BUN 44 H (7-17) mg/dL Creatinine 4.10 H (0.52-1.04) mg/dL Glucose 123 H (74-99) mg/dL Calcium 8.3 L (8.4-10.2) mg/dL Magnesium 1.4 L (1.6-2.3) mg/dL Total Protein 5.3 L (6.3-8.2) g/dL Albumin 3.0 L (3.5-5.0) g/dL TSH 0.037 L (0.465-4.680) mIU/L Urine Appearance Turbid H (Clear) Urine Protein 2+ H (Negative) Urine WBC >182 H (0-5) /hpf Urine WBC Clumps Many H (None) /hpf Urine Bacteria Few H (None) /hpf Thrombosis Risk Factor Assmnt - Choose All That Apply Each Risk Factor Represents 3 Points: Age 75 years or older, History of DVT/PE Thrombosis Risk Factor Assessment Total Risk Factor Score: 6 Thrombosis Risk Factor Assessment Level: High Risk Assessment and Plan Assessment: UTI, verbal report of VRE urine culture from PCP office Generalized weakness Plan Empiric antibiotics with linezolid Follow-up cultures Tylenol for fever Follow-up labs Monitor vital signs Chronic conditions Anemia of chronic disease macrocytic Patient denies any bleeding A. fib on Eliquis status post pacemaker Hypotension resume midodrine Diabetes mellitus, insulin sliding scale Diastolic CHF with left ventricular ejection fraction 55-60% currently compensated End-stage renal disease on hemodialysis Friday through a right arm AV fistula CODE STATUS: Full code DVT prophylaxis: Eliquis Discussed with: Patient, ER, RN Anticipated length of stay more than [address]: Home A total of 70 minutes was spent on the care of this complex patient more than 50% of the time was spent in counseling and care coordination.
[2021-02-12] MEDS: LEVOTHYROXINE 100 MCG TAB PO SCH (05:37)
[2021-02-12 06:22] LABS: Basophils % (A) 1 %; Eosinophils # (A) 0.1 k/uL (0-0.7); Eosinophils % (A) 1 %; HCT 30.3 % (34.0-46.0); HGB 10.3 gm/dL (11.4-16.0); Lymphocytes % (A) 22 %; MCHC 33.8 g/dL (31.0-37.0); Macrocytosis Marked; Mean Platelet Volume 8.3; Monocytes # (A) 0.3 k/uL (0-1.0); Monocytes % (A) 7 %; Neutrophils % (A) 66 %; Platelet Count 111 k/uL (150-450); RBC 2.77 m/uL (3.80-5.40); RDW 15.1 % (11.5-15.5); WBC 4.5 k/uL (3.8-10.6)
[2021-02-12 06:25] LABS: MCV 109.5 fL (80.0-100.0)
[2021-02-12 06:34] LABS: Calcium 8.3 mg/dL (8.4-10.2); Total Bilirubin 0.5 mg/dL (0.2-1.3); Total Protein 5.7 g/dL (6.3-8.2)
[2021-02-12 06:59] LABS: Glucose,Whole Blood 141 mg/dL (75-99)
[2021-02-12] MEDS: INSULIN ASPART (NovoLOG) 100 UNIT/ML VIAL SQ SCH ×4 (08:33→21:32)
[2021-02-12] MEDS: atenoloL 50 MG TAB PO SCH (09:54)
[2021-02-12] MEDS: APIXABAN 2.5 MG TABLET PO SCH ×2 (09:58→20:41)
[2021-02-12] MEDS: FOLIC ACID-VIT B COMPLEX-VIT C 1 CAP PO SCH (09:58)
[2021-02-12] MEDS: CHOLECALCIFEROL 25 MCG (1000 IU) TABLET PO SCH (09:59)
[2021-02-12] MEDS: allopurinoL 100 MG TAB PO SCH (09:59)
[2021-02-12] MEDS: FLECAINIDE 50 MG TAB PO SCH ×2 (09:59→20:41)
[2021-02-12] MEDS: PANTOPRAZOLE 40 MG TABLET PO SCH (09:59)
[2021-02-12] MEDS: CYANOCOBALAMIN 500 MCG TAB PO SCH (09:59)
[2021-02-12] MEDS: CALCIUM ACETATE 667 MG TAB PO SCH (09:59)
[2021-02-12] MEDS: LINEZOLID 600 MG in DEXTROSE/WATER 1 300ML.BAG IVPB SCH ×2 (10:24→20:41)
[2021-02-12 11:40] LABS: Glucose,Whole Blood 123 mg/dL (75-99)
--- NOTE | 2021-02-12 11:40 | P.PN ---
Subjective Progress Note Date: 02/12/21 Principal diagnosis: CC: Generalized weakness Patient is a 85-year-old female with approximately, diastolic CHF, diabetes mellitus, and stage renal disease on hemodialysis Friday right arm AV fistula who presented to the ED with generalized weakness. Patient was recently admitted in mid December and early January for similar complaints. On previous admission patient was cleared for discharge home by physical therapy. Patient reports having dysuria and her primary urologist spoke with her daughter and said she had a VRE UTI. Patient this morning states that her dysuria is improving. She is scheduled for dialysis today. Patient denies any fever chills nausea and vomiting. Her labs were reviewed and were unremarkable. Patient's vital signs also unremarkable. Objective - Vital Signs Vital signs: Vital Signs Temp 98.6 F 02/12/21 07:58 Pulse 69 02/12/21 07:58 Resp 19 02/12/21 07:58 BP 106/41 02/12/21 07:58 Pulse Ox 99 02/12/21 07:58 Intake & Output 02/11/21 02/12/21 02/12/21 18:59 06:59 18:59 Weight 87.09 kg 87.09 kg Other: Voiding Method Diaper Incontinent # Voids 2 - Exam General examination - Alert and Oriented 3 in NAD Heart - + S1S2 no murmurs Lungs - Clear to auscultation Abdomen soft NT ND +ve BS Extremities - No edema GLOBAL PROGRAM DIRECTOR - Moving all 4 extremities spontaneously Psych - Calm and cooperative - Labs CBC & Chem 7: 02/12/21 05:27 02/12/21 05:27 Labs: Abnormal Lab Results - Last 24 Hours (Table) 02/11/21 02/11/21 02/11/21 Range/Units 19:10 19:10 19:17 RBC 2.56 L (3.80-5.40) m/uL Hgb 9.5 L (11.4-16.0) gm/dL Hct 27.4 L (34.0-46.0) % MCV 107.1 H (80.0-100.0) fL MCH 37.1 H (25.0-35.0) pg Plt Count 131 L (150-450) k/uL Lymphocytes # 0.5 L (1.0-4.8) k/uL Macrocytosis Sodium 133 L (137-145) mmol/L BUN 44 H (7-17) mg/dL Creatinine 4.10 H (0.52-1.04) mg/dL Glucose 123 H (74-99) mg/dL POC Glucose (mg/dL) (75-99) mg/dL Calcium 8.3 L (8.4-10.2) mg/dL Magnesium 1.4 L (1.6-2.3) mg/dL AST (14-36) U/L Total Protein 5.3 L (6.3-8.2) g/dL Albumin 3.0 L (3.5-5.0) g/dL TSH 0.037 L (0.465-4.680) mIU/L Urine Appearance Turbid H (Clear) Urine Protein 2+ H (Negative) Urine WBC >182 H (0-5) /hpf Urine WBC Clumps Many H (None) /hpf Urine Bacteria Few H (None) /hpf 02/12/21 02/12/21 02/12/21 Range/Units 05:27 05:27 06:57 RBC 2.77 L (3.80-5.40) m/uL Hgb 10.3 L (11.4-16.0) gm/dL Hct 30.3 L (34.0-46.0) % MCV 109.5 H (80.0-100.0) fL MCH 37.0 H (25.0-35.0) pg Plt Count 111 L (150-450) k/uL Lymphocytes # (1.0-4.8) k/uL Macrocytosis Marked A Sodium 134 L (137-145) mmol/L BUN 47 H (7-17) mg/dL Creatinine 3.97 H (0.52-1.04) mg/dL Glucose 119 H (74-99) mg/dL POC Glucose (mg/dL) 141 H (75-99) mg/dL Calcium 8.3 L (8.4-10.2) mg/dL Magnesium (1.6-2.3) mg/dL AST 45 H (14-36) U/L Total Protein 5.7 L (6.3-8.2) g/dL Albumin 3.0 L (3.5-5.0) g/dL TSH (0.465-4.680) mIU/L Urine Appearance (Clear) Urine Protein (Negative) Urine WBC (0-5) /hpf Urine WBC Clumps (None) /hpf Urine Bacteria (None) /hpf Microbiology - Last 24 Hours (Table) 02/11/21 19:17 Urine Culture - Preliminary Urine,Catheterized Assessment and Plan Assessment: UTI with verbal report of VRE urine culture from her urologist office -We'll consult urology and infectious disease -Resume linezolid -Patient's symptoms are improving -Follow up blood culture and urine culture Generalized weakness likely due to the above -PT OT consult End-stage renal disease on hemodialysis Friday through a right arm AV fistula -Nephrology on board Anemia of chronic disease -Stable with no overt signs of bleeding Atrial fibrillation on Eliquis status post pacemaker -Heart rate is controlled -Resume flecainide -Resume atenolol Diabetes mellitus -Sliding-scale insulin Diastolic CHF with left ventricular ejection fraction 55-60% -Compensated -Follow status to be managed with dialysis and home dose torsemide History of hypotension -Resume home dose midodrine Hypothyroidism: Resume Synthroid CODE STATUS:full code DVT prophylaxis: Eliquis Anticipated length of stay > than [address]: home vs SNF Disposition: Awaiting for infectious disease to give final antibiotic recommendations and duration. Anticipated patient be ready for discharge in the next 24 hours
[2021-02-12 16:27] LABS: Glucose,Whole Blood 127 mg/dL (75-99)
--- NOTE | 2021-02-12 16:36 | CONS ---
CONSULTATION REASON FOR CONSULTATION: End-stage renal disease. HISTORY OF PRESENT ILLNESS: Patient is an 85-year-old female with end-stage renal disease, on hemodialysis on a Friday, Friday, Friday schedule. Patient was admitted to the hospital with complaints of weakness and inability to get up. The patient has had recent admissions for urinary tract infection. She denied any significant urinary symptoms. Patient admitted to low-grade fever at home. She has been she did have a temperature of 100.2 degrees Fahrenheit on initial admission. Urine culture is currently pending. PAST MEDICAL HISTORY: End-stage renal disease, anemia of chronic disease, atrial fibrillation, coronary artery disease, history of CVA, history of CHF, gastroesophageal reflux disease, MD, history of PE, rheumatoid arthritis, obstructive sleep apnea, hypothyroidism, neuropathy, sick sinus syndrome, chronic back pain, carotid artery disease. PAST SURGICAL HISTORY: Hysterectomy, right arm AV fistula, previous PermCath, hemorrhoidectomy, cataract surgery, rectocele and cystocele repair, permanent pacemaker placement. SOCIAL HISTORY: Negative for smoking, drug abuse or alcohol abuse. MEDICATIONS: Medications at home included Synthroid, Zyloprim, Tenormin, Protonix, insulin, Eliquis, Demadex, PhosLo, Remeron, Tambocor , Tums, midodrine, Lipitor, vitamin B12. ALLERGIES: Include AMOXICILLIN, PENICILLIN, SULFA, DEMEROL. PHYSICAL EXAMINATION: Patient is comfortable, awake, not in any acute distress. Alert and oriented x3. Blood pressure this morning 106/41, heart rate 69 per minute, she is afebrile. Examination of the heart S1, S2. Examination of the lungs, bilateral breath sounds are heard. Abdomen is soft, nontender. Examination of lower extremities shows chronic edema. Chronic skin changes. FAMILY LAW MEDIATOR exam grossly intact. Patient is being assessed by Physical Therapy currently. LAB: Show hemoglobin 10.3, sodium 134, potassium 5.0, BUN 47, creatinine 3.97. UA shows WBCs more than 182. ASSESSMENT: 1. End-stage renal disease, on hemodialysis on a Friday, Friday, Friday schedule. 2. Pyuria, rule out another urinary tract infection. 3. Generalized weakness. 4. Chronic kidney disease mineral bone disorder. 5. Coronary artery disease. PLAN: Hemodialysis today. Follow up on urine cultures. Continue with phosphate binders. Continue physical therapy. MMODL / IJN: [id number] /
--- NOTE | 2021-02-12 19:10 | P.GSCN ---
History of Present Illness Consult date: 02/12/21 Reason for Consult: Recurrent UTIs History of present illness: This is an an 85-year-old female with hx of multiple comorbidities. She is admi tted to the hospital with weakness, low-grade fever and chills. She had a recent hospitalization for weakness. She has a history of recurrent UTIs, and a recent urine culture that showed VRE . Of note she underwent a cystoscopy for microscopic hematuria that showed erythematous lesion within the bladder, she was recommended to undergo a biopsy and bilateral retrograde pyelogram. Surgery was scheduled last week, but was canceled due to to positive urine culture. At this time she also complains of dysuria and significant vaginal itching. Denies any flank pain. She had a CT abdomen and pelvis that showed no normality. Review of Systems - Constitutional Reports chills, Reports fatigue, Reports fever, Reports weakness - EENT Ears, nose, mouth and throat: Denies dysphagia - Cardiovascular Denies chest pain, Denies shortness of breath - Respiratory Denies cough, Denies 7 - Gastrointestinal Reports as per HPI - Genitourinary Genitourinary: Reports dysuria - Neurological Denies headaches, Denies syncope Past Medical History Past Medical History: Atrial Fibrillation, Heart Failure, CVA/TIA, Diabetes Mellitus, Dialysis, Deep Vein Thrombosis (DVT), GERD/Reflux, Hyperlipidemia, Hypertension, Myocardial Infarction (DE), Osteoarthritis (OA), Pulmonary Embolus (PE), Renal Disease, Rheumatoid Arthritis (RA), Sleep Apnea/CPAP/BIPAP, Thyroid Disorder Additional Past Medical History / Comment(s): on 02/06/20 with UTI/ESBL/bacteremia. Other hx: IDDM type II, diabetic neuropathy bilateral hands/feet, ESRD with hemodialysis, recurrent UTIs, pt was told she had a past DE d/t EKG, palpitations, SSS with pacer, HARRIS with Cpap, chronic back and bilateral knee pain, hypothyroid. bilat carotid artery occlusions and a stroke she was unaware of Last Myocardial Infarction Date:: unknown History of Any Multi-Drug Resistant Organisms: ESBL, VRE Year Discovered:: 02/04/20 MDRO Source:: ESBL URINE Past Surgical History: Bladder Surgery, Hysterectomy, Pacemaker Additional Past Surgical History / Comment(s): 02/01/20 R upper arm fistula reposi tioned, R chest boone cath, rectocele, cystocele, hemorrhoidectomy, bilateral leg vein strippings, bilateral cataract removal, Picc lines Past Anesthesia/Blood Transfusion Reactions: No Reported Reaction Type of Cardiac Device: Permanent Pacemaker Device Placement Date:: 01/2017 Past Psychological History: No Psychological Hx Reported Additional Psychological History / Comment(s): Pt resides in her own home. Her vicky and son-in-law are temporarily staying with her to help out. She has a CPap, rolling walker, cane, life alert. 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 She reciev es meals on wheels. Pt currently receiving home care thru [facility] Smoking Status: Never smoker Past Alcohol Use History: None Reported Past Drug Use History: None Reported - Past Family History Father Family Medical History: AFIB, AICD/Pacemaker, Congestive Heart Failure (CHF), Coronary Artery Disease (CAD), Diabetes Mellitus, Dialysis, Deep Vein Thrombosis (DVT), Hyperlipidemia, Hypertension, Myocardial Infarction (DE), Rheumatoid Arthritis (RA) Mother Family Medical History: Unable to Obtain Sister(s) Family Medical History: Cancer Medications and Allergies Home Medications Medication Instructions Recorded Confirmed Type Levothyroxine Sodium [Synthroid] 100 mcg PO DAILY 01/31/14 02/11/21 History allopurinoL [Zyloprim] 100 mg PO DAILY 01/18/17 02/11/21 History atenoloL [Tenormin] 25 mg PO HS 10/10/17 02/11/21 History Pantoprazole [Protonix] 40 mg PO DAILY 08/16/19 02/11/21 History Insulin Lispro [humaLOG Kwikpen] See Protocol SQ AC-TID 02/04/20 02/11/21 History Apixaban [Eliquis] 2.5 mg PO BID 02/22/20 02/11/21 History Torsemide [Demadex] 40 mg PO DAILY 02/22/20 02/11/21 History Calcium Acetate [PhosLo] 667 mg PO DAILY 05/25/20 02/11/21 History Mirtazapine [Remeron] 15 mg PO HS 05/25/20 02/11/21 History Flecainide [Tambocor] 50 mg PO BID 07/26/20 02/11/21 History Atenolol [Tenormin] 50 mg PO DAILY 01/10/21 02/11/21 History Calcium Carbonate [Tums] 1,000 mg PO QID PRN 01/10/21 02/11/21 History Cholecalciferol [Vitamin D3 (25 100 mcg PO DAILY 01/10/21 02/11/21 History Mcg = 1000 Iu)] Folic Acid-Vit B Complex-Vit C 1 cap PO DAILY 01/10/21 02/11/21 History [Nephrocaps] Midodrine [ProAmatine] 5 mg PO MOWEFR PRN 01/10/21 02/11/21 History Atorvastatin [Lipitor] 40 mg PO HS #30 tab 02/06/21 02/11/21 Rx Cyanocobalamin [Vitamin B-12] 500 mcg PO DAILY #30 tab 02/06/21 02/11/21 Rx Allergies Allergy/AdvReac Type Severity Reaction Status Date / Time amoxicillin Allergy Rash/Hives Verified 02/02/21 19:15 Penicillins Allergy Rash/Hives Verified 02/02/21 19:15 Sulfa (Sulfonamide Allergy Rash/Hives Verified 02/02/21 19:15 Antibiotics) meperidine HCl [From Demerol] AdvReac Nausea & Verified 02/02/21 19:15 Vomiting Surgical - Exam Vital Signs Temp Pulse Resp BP Pulse Ox 100.2 F H 70 18 119/51 95 02/11/21 18:04 02/11/21 18:04 02/11/21 18:04 02/11/21 18:04 02/11/21 18:04 - General well developed, well nourished, no distress, no pain - Eyes PERRL, normal ocular movement - ENT normal nares, normal mucosa - Respiratory normal expansion, normal respiratory effort - Abdomen Abdomen: soft, non tender - Psychiatric oriented to time, oriented to person, oriented to place Results - Labs 02/12/21 05:27 02/12/21 05:27 Abnormal Lab Results - Last 24 Hours (Table) 02/11/21 02/11/21 02/11/21 Range/Units 19:10 19:10 19:17 RBC 2.56 L (3.80-5.40) m/uL Hgb 9.5 L (11.4-16.0) gm/dL Hct 27.4 L (34.0-46.0) % MCV 107.1 H (80.0-100.0) fL MCH 37.1 H (25.0-35.0) pg Plt Count 131 L (150-450) k/uL Lymphocytes # 0.5 L (1.0-4.8) k/uL Macrocytosis Sodium 133 L (137-145) mmol/L BUN 44 H (7-17) mg/dL Creatinine 4.10 H (0.52-1.04) mg/dL Glucose 123 H (74-99) mg/dL POC Glucose (mg/dL) (75-99) mg/dL Calcium 8.3 L (8.4-10.2) mg/dL Magnesium 1.4 L (1.6-2.3) mg/dL AST (14-36) U/L Total Protein 5.3 L (6.3-8.2) g/dL Albumin 3.0 L (3.5-5.0) g/dL TSH 0.037 L (0.465-4.680) mIU/L Urine Appearance Turbid H (Clear) Urine Protein 2+ H (Negative) Urine WBC >182 H (0-5) /hpf Urine WBC Clumps Many H (None) /hpf Urine Bacteria Few H (None) /hpf 02/12/21 02/12/21 02/12/21 Range/Units 05:27 05:27 06:57 RBC 2.77 L (3.80-5.40) m/uL Hgb 10.3 L (11.4-16.0) gm/dL Hct 30.3 L (34.0-46.0) % MCV 109.5 H (80.0-100.0) fL MCH 37.0 H (25.0-35.0) pg Plt Count 111 L (150-450) k/uL Lymphocytes # (1.0-4.8) k/uL Macrocytosis Marked A Sodium 134 L (137-145) mmol/L BUN 47 H (7-17) mg/dL Creatinine 3.97 H (0.52-1.04) mg/dL Glucose 119 H (74-99) mg/dL POC Glucose (mg/dL) 141 H (75-99) mg/dL Calcium 8.3 L (8.4-10.2) mg/dL Magnesium (1.6-2.3) mg/dL AST 45 H (14-36) U/L Total Protein 5.7 L (6.3-8.2) g/dL Albumin 3.0 L (3.5-5.0) g/dL TSH (0.465-4.680) mIU/L Urine Appearance (Clear) Urine Protein (Negative) Urine WBC (0-5) /hpf Urine WBC Clumps (None) /hpf Urine Bacteria (None) /hpf 02/12/21 Range/Units 11:38 RBC (3.80-5.40) m/uL Hgb (11.4-16.0) gm/dL Hct (34.0-46.0) % MCV (80.0-100.0) fL MCH (25.0-35.0) pg Plt Count (150-450) k/uL Lymphocytes # (1.0-4.8) k/uL Macrocytosis Sodium (137-145) mmol/L BUN (7-17) mg/dL Creatinine (0.52-1.04) mg/dL Glucose (74-99) mg/dL POC Glucose (mg/dL) 123 H (75-99) mg/dL Calcium (8.4-10.2) mg/dL Magnesium (1.6-2.3) mg/dL AST (14-36) U/L Total Protein (6.3-8.2) g/dL Albumin (3.5-5.0) g/dL TSH (0.465-4.680) mIU/L Urine Appearance (Clear) Urine Protein (Negative) Urine WBC (0-5) /hpf Urine WBC Clumps (None) /hpf Urine Bacteria (None) /hpf Microbiology - Last 24 Hours (Table) 02/11/21 19:17 Urine Culture - Preliminary Urine,Catheterized Diabetes panel 02/11/21 02/12/21 Range/Units 19:10 05:27 Sodium 133 L 134 L (137-145) mmol/L Potassium 4.4 5.0 (3.5-5.1) mmol/L Chloride 98 100 (98-107) mmol/L Carbon Dioxide 26 27 (22-30) mmol/L BUN 44 H 47 H (7-17) mg/dL Creatinine 4.10 H 3.97 H (0.52-1.04) mg/dL Glucose 123 H 119 H (74-99) mg/dL Calcium 8.3 L 8.3 L (8.4-10.2) mg/dL AST 23 45 H (14-36) U/L ALT 13 16 (4-34) U/L Alkaline Phosphatase 118 101 (38-126) U/L Total Protein 5.3 L 5.7 L (6.3-8.2) g/dL Albumin 3.0 L 3.0 L (3.5-5.0) g/dL Thyroid panel 02/11/21 Range/Units 19:10 TSH 0.037 L (0.465-4.680) mIU/L Calcium panel 02/11/21 02/12/21 Range/Units 19:10 05:27 Calcium 8.3 L 8.3 L (8.4-10.2) mg/dL Albumin 3.0 L 3.0 L (3.5-5.0) g/dL Pituitary panel 02/11/21 02/12/21 Range/Units 19:10 05:27 Sodium 133 L 134 L (137-145) mmol/L Potassium 4.4 5.0 (3.5-5.1) mmol/L Chloride 98 100 (98-107) mmol/L Carbon Dioxide 26 27 (22-30) mmol/L BUN 44 H 47 H (7-17) mg/dL Creatinine 4.10 H 3.97 H (0.52-1.04) mg/dL Glucose 123 H 119 H (74-99) mg/dL Calcium 8.3 L 8.3 L (8.4-10.2) mg/dL TSH 0.037 L (0.465-4.680) mIU/L Adrenal panel 02/11/21 02/12/21 Range/Units 19:10 05:27 Sodium 133 L 134 L (137-145) mmol/L Potassium 4.4 5.0 (3.5-5.1) mmol/L Chloride 98 100 (98-107) mmol/L Carbon Dioxide 26 27 (22-30) mmol/L BUN 44 H 47 H (7-17) mg/dL Creatinine 4.10 H 3.97 H (0.52-1.04) mg/dL Glucose 123 H 119 H (74-99) mg/dL Calcium 8.3 L 8.3 L (8.4-10.2) mg/dL Total Bilirubin 0.3 0.5 (0.2-1.3) mg/dL AST 23 45 H (14-36) U/L ALT 13 16 (4-34) U/L Alkaline Phosphatase 118 101 (38-126) U/L Total Protein 5.3 L 5.7 L (6.3-8.2) g/dL Albumin 3.0 L 3.0 L (3.5-5.0) g/dL Assessment and Plan Assessment: 85-year-old female with multiple comorbidities, end-stage renal disease on he modialysis. She has history of recurrent UTIs and microscopic hematuria, underwent a cystoscopy that showed an erythematous lesion within the bladder. She was scheduled for biopsy last week, surgery was canceled due to a positive urine culture. Fitted to the hospital with weakness, low-grade fever -Follow up on urine culture, ID is on board for her UTI -Given her history of recurrent UTIs, and multidrug resistant UTIs, we'll attempt to do the bladder biopsy while she is still in the hospital after she received adequate antibiotic coverage and her current urine cultures is finalized
--- NOTE | 2021-02-12 20:31 | CONS ---
CONSULTATION DATE OF SERVICE: 02/12/2021 REASON FOR FOLLOW UP: VRE urinary tract infection. HISTORY OF PRESENT ILLNESS: The patient is an 85-year-old female with a past medical history significant for end-stage renal disease, on hemodialysis. Patient still makes some urine. The patient has been brought to the ER yesterday evening for evaluation of fever and chills since yesterday. The patient complaining of feeling weak all day long. Patient apparently recently did have a urine culture positive and has been told was positive for VRE and has been advised to go to the hospital. The patient denies having any headache or URI symptoms. Denies having any chest pain. No shortness of breath or cough. No nausea, vomiting, abdominal pain, no diarrhea. Still making a small amount of urine, has been complaining of significant burning and knife-like sensation with urination. The patient on admission to the hospital did have a low-grade fever of 100.2. The patient did have a normal white count with no left shift. Urine did shows more than 1-2 WBC, many bacteria. She was started on on basis of previous culture. Infectious disease was consulted for further management of antibiotic therapy. REVIEW OF SYSTEMS: Positive points have been mentioned in HPI. Rest of systems are negative. PAST MEDICAL HISTORY: Atrial fibrillation, heart failure, diabetes mellitus, DVT, gastroesophageal reflux disease, hypertension, hyperlipidemia, OK, , recurrent UTI. PAST SURGICAL HISTORY: Right arm AV fistula, right chest Javier catheter placement, hemorrhoidectomy and bilateral leg vein stripping, bilateral cataract surgery. SOCIAL HISTORY: Denies smoking, drinking or drug use. FAMILY HISTORY: Father with history of AICD placement, sister with history of cancer. ALLERGIES: TO PENICILLIN, SULFA AND MEPERIDINE. MEDICATIONS: Including the patient is currently on: Zyloprim, Eliquis, Tenormin, Atenolol, Lipitor, PhosLo, vitamin D3, vitamin B12, Tambocor, NovoLog, Linezolid, Protonix and Demadex. PHYSICAL EXAMINATION: Blood pressure 106/41, pulse of 69, temperature 98.6. She is 99% on 2 L nasal cannula. General description: The patient is an elderly female lying in bed in no distress. No tachypnea or accessory muscles of respiration use. HEENT: Examination shows slight pallor. No scleral icterus. Oral mucous membranes dry. NECK: Trachea central. No thyromegaly. LUNGS unlabored breathing, decreased breath sounds in the base, with no wheeze or crackles. HEART S1, S2. Regular rate and rhythm. ABDOMEN soft, no tenderness. No guarding. No rigidity. EXTREMITIES: No edema of the feet. Examination of right arm AV fistula site with no swelling. No redness. NEUROLOGICAL: Patient is awake, alert, oriented times three. Mood and affect normal. LABS: Hemoglobin is 10.8, white count 4.5. BUN of 47, creatinine 3.97. Electrolytes have been normal. Urine was positive. Cultures are pending. DIAGNOSTIC IMPRESSION AND PLAN: Patient admitted to the hospital with fever, feeling weak in this patient who did have history of recurrent urinary tract infection. She is a dialysis patient but still makes small amount of urine and has significant urinary symptoms. The patient currently does not have any other obvious focus for fever with chest x-ray was negative. Abdomen was soft. Rectal examination no evidence of any cellulitis. PLAN: 1. Patient to continue with linezolid 600 mg twice a day as the patient recently urine culture positive VRE. 2. Will wait for the urine culture to finalize to determine her discharge antibiotics. Thank you for this consultation, we will follow this patient along with you. MMODL / IJN: [id number] /
[2021-02-12] MEDS: ATORVASTATIN 40 MG TAB PO SCH (20:40)
[2021-02-12] MEDS: atenoloL 25 MG TAB PO SCH (20:41)
[2021-02-12] MEDS ORDERED: MIRTAZAPINE 15 MG TAB PO SCH (21:00)
[2021-02-12 21:05] LABS: Glucose,Whole Blood 251 mg/dL (75-99)
[2021-02-13 04:30] LABS: Hepatitis B Surface AB- Quant <3.5 mIU/mL; Hepatitis B Surface Antibody Non-Reactive (Non-Reactive); Hepatitis B Surface Antigen Non-Reactive (Non-Reactive)
[2021-02-13] MEDS: LEVOTHYROXINE 100 MCG TAB PO SCH (05:33)
[2021-02-13 07:04] LABS: Glucose,Whole Blood 109 mg/dL (75-99)
[2021-02-13] MEDS: INSULIN ASPART (NovoLOG) 100 UNIT/ML VIAL SQ SCH ×4 (07:16→21:11)
[2021-02-13] MEDS ORDERED: LINEZOLID 600 MG TAB PO SCH (09:00)
[2021-02-13] MEDS: FOLIC ACID-VIT B COMPLEX-VIT C 1 CAP PO SCH (09:18)
[2021-02-13] MEDS: FLECAINIDE 50 MG TAB PO SCH ×2 (09:18→21:12)
[2021-02-13] MEDS: CALCIUM ACETATE 667 MG TAB PO SCH (09:18)
[2021-02-13] MEDS: CHOLECALCIFEROL 25 MCG (1000 IU) TABLET PO SCH (09:18)
[2021-02-13] MEDS: PANTOPRAZOLE 40 MG TABLET PO SCH (09:18)
[2021-02-13] MEDS: TORSEMIDE 20 MG TAB PO SCH (09:18)
[2021-02-13] MEDS: atenoloL 50 MG TAB PO SCH (09:19)
[2021-02-13] MEDS: allopurinoL 100 MG TAB PO SCH (09:19)
[2021-02-13] MEDS: CYANOCOBALAMIN 500 MCG TAB PO SCH (09:19)
[2021-02-13 11:21] LABS: Glucose,Whole Blood 153 mg/dL (75-99)
--- NOTE | 2021-02-13 11:29 | P.PN ---
Subjective Progress Note Date: 02/13/21 Principal diagnosis: CC: Generalized weakness Patient says that her dysuria is improving. She says that she still feels weak and has a long way to go. Patient is wondering when she'll get her bladder biopsy done. I told her that I will defer that to urology. Objective - Vital Signs Vital signs: Vital Signs Temp 97.9 F 02/13/21 08:00 Pulse 64 02/13/21 08:00 Resp 18 02/13/21 08:00 BP 111/74 02/13/21 08:00 Pulse Ox 98 02/13/21 08:00 Intake & Output 02/12/21 02/13/21 02/13/21 18:59 06:59 18:59 Intake Total 300 Output Total 1999 Balance -1999 300 Intake: Intake, IV Titration 300 Amount Linezolid 600 mg In 300 Dextrose/Water 1 300ml. 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 4 extremities spontaneously Psych - Calm and cooperative - Labs CBC & Chem 7: 02/12/21 05:27 02/12/21 05:27 Labs: Abnormal Lab Results - Last 24 Hours (Table) 02/12/21 02/12/21 02/12/21 Range/Units 11:38 16:25 21:03 POC Glucose (mg/dL) 123 H 127 H 251 H (75-99) mg/dL 02/13/21 Range/Units 07:03 POC Glucose (mg/dL) 109 H (75-99) mg/dL Microbiology - Last 24 Hours (Table) 02/11/21 19:17 Blood Culture - Preliminary Blood No Growth after 24 hours 02/11/21 19:17 Blood Culture - Preliminary Blood No Growth after 24 hours 02/11/21 19:17 Urine Culture - Preliminary Urine,Catheterized Gram Neg Bacilli Assessment and Plan Assessment: UTI with verbal report of VRE urine culture from her urologist office -Cultures from urologist office are growing VRE -Cultures done on admission are pending -Urology following -Infectious disease to manage antibiotics -Resume linezolid -Patient's symptoms are improving -Follow up blood culture and urine culture Bladder lesion with history of microscopic hematuria -Patient was scheduled for a cystoscopy however was canceled due to the UTI -Urology may plan to do cystoscopy while inpatient Generalized weakness likely due to the above -PT OT consult -> recommends home with home care versus longterm facility End-stage renal disease on hemodialysis Friday through a right arm AV fistula -Nephrology on board Anemia of chronic disease -Stable with no overt signs of bleeding Atrial fibrillation on Eliquis status post pacemaker -Heart rate is controlled -Resume flecainide -Resume atenolol Diabetes mellitus -Sliding-scale insulin Diastolic CHF with left ventricular ejection fraction 55-60% -Compensated -Follow status to be managed with dialysis and home dose torsemide History of hypotension -Resume home dose midodrine Hypothyroidism: Resume Synthroid CODE STATUS:full code DVT prophylaxis: Eliquis Anticipated length of stay > than [address]: home vs SNF Disposition: Awaiting for infectious disease to give final antibiotic recommendations and duration. Anticipated patient be ready for discharge in the next 24 hours
--- NOTE | 2021-02-13 14:08 | PN ---
PROGRESS NOTE Patient is seen for followup for end-stage renal disease. This morning she states she is feeling much stronger. Patient did work with physical therapy yesterday. She tolerated her dialysis fairly well. We had about 2 L of ultrafiltration yesterday. PHYSICAL EXAMINATION: Blood pressure 111/74, heart rate 64 per minute. She is afebrile. Examination of the heart S1, S2. Examination of the lungs, bilateral breath sounds are heard. Abdomen is soft, nontender. Examination of lower extremities shows edema 1+ bilaterally, which is mostly chronic. 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 LAB: Show hemoglobin 10.3, sodium 134, potassium 5.0, BUN 47, serum creatinine 3.97. Urine culture growing Gram-negative bacilli. ASSESSMENT: 1. End-stage renal disease, on hemodialysis on a Friday, Friday, Friday schedule. 2. Repeated urinary tract infections, possible colonization. The patient did have a negative urine culture on 01/10/2021. She is again status post antibiotics. 3. Generalized weakness seems to have improved. 4. Chronic kidney disease, mineral bone disorder. 5. Anemia of chronic disease. 6. History of neuropathy. PLAN: The patient will need adjustment of antibiotics as I see that she is maintained on Zyvox and the urine culture is growing Gram-negative bacilli. She is being followed by infectious disease. MMODL / IJN: [id number] /
--- NOTE | 2021-02-13 14:09 | P.PN ---
Progress Note - Text Progress Note Date: 02/13/21 no acute overnight events, indicates that in her dysuria has improved. Urine cultures growing gram-negative bacilli, she is currently on Linezolid. Denies any gross hematuria or flank pain A/P 85-year-old female with history of microscopic hematuria, recurrent UTIs. cystoscopy showed erythematous lesion within the bladder, recommended to undergo a biopsy. Surgery canceled due to VRE. -Continue antibiotics, follow up on final urine culture -hold Eliquis for now, she is scheduled for a cystoscopy bladder biopsy, and bilateral retrograde pyelograms in the OR for FridayFebruary 16.
[2021-02-13 16:25] LABS: Glucose,Whole Blood 202 mg/dL (75-99)
--- NOTE | 2021-02-13 19:50 | PN ---
PROGRESS NOTE DATE OF SERVICE: 02/13/2021 REASON FOR FOLLOWUP: Urinary tract infection. INTERVAL HISTORY: Patient is currently afebrile. The patient is breathing comfortably. The patient denies having any chest pain. No shortness of breath or cough. No nausea, vomiting, abdominal pain or diarrhea. PHYSICAL EXAMINATION: Blood pressure is 120/71 with a pulse of 71, temperature is 97.7. She is 97% on room air. General description is an elderly female lying in no distress. Respiratory system: Unlabored breathing, clear to auscultation anteriorly. Heart S1, S2. Regular rate and rhythm. ABDOMEN: Soft, no tenderness. EXTREMITIES: No edema of the feet. LABS: Urine now showing an E coli that is sensitive pathogen. DIAGNOSTIC IMPRESSION AND PLAN: Patient with a history of recurrent urinary tract infection with recent outpatient culture positive for VRE. However, culture this admission showing E coli that is sensitive pathogen. Blood culture has been negative. Antibiotic adjusted to Rocephin 1 g daily and we will monitor clinical course closely. MMODL / IJN: [id number] /
[2021-02-13 20:35] LABS: Glucose,Whole Blood 142 mg/dL (75-99)
[2021-02-13] MEDS: atenoloL 25 MG TAB PO SCH (21:12)
[2021-02-13] MEDS: ATORVASTATIN 40 MG TAB PO SCH (21:12)
[2021-02-14] MEDS: LEVOTHYROXINE 100 MCG TAB PO SCH (05:31)
[2021-02-14 06:51] LABS: Glucose,Whole Blood 106 mg/dL (75-99)
[2021-02-14] MEDS: INSULIN ASPART (NovoLOG) 100 UNIT/ML VIAL SQ SCH ×3 (07:02→17:12)
[2021-02-14 08:48] LABS: African American GFR (CKD) 12 (>60 ml/min/1.73 sqM); Anion Gap 10 mmol/L; Blood Urea Nitrogen 32 mg/dL (7-17); Calcium 8.1 mg/dL (8.4-10.2); Carbon Dioxide 23 mmol/L (22-30); Chloride 104 mmol/L (98-107); Glucose 159 mg/dL (74-99); Magnesium 1.6 mg/dL (1.6-2.3); Non-African American GFR(CKD) 10 (>60 ml/min/1.73 sqM); Potassium 3.5 mmol/L (3.5-5.1); Sodium 137 mmol/L (137-145)
[2021-02-14 08:55] LABS: HCT 27.3 % (34.0-46.0); Hypochromasia Slight; MCHC 32.1 g/dL (31.0-37.0); MCV 109.2 fL (80.0-100.0); Macrocytosis Marked; Mean Platelet Volume 8.8; Platelet Count 133 k/uL (150-450); RDW 15.6 % (11.5-15.5); WBC 4.2 k/uL (3.8-10.6)
[2021-02-14 08:58] LABS: HGB 8.7 gm/dL (11.4-16.0)
--- NOTE | 2021-02-14 11:39 | P.DS ---
<Samson Fuller - Last Filed: 02/14/21 11:12> Providers Expected date of discharge: 02/14/21 Hospital Course: Discharge Diagnosis: UTI positive for E. coli Bladder lesion with history of microscopic hematuria Generalized weakness Hypomagnesemia ESRD on dialysis Anemia of chronic disease Atrial fibrillation on Eliquis status post pacemaker placement Chronic diastolic heart failure Insulin-dependent diabetes mellitus type 2 Hypertension Hyperlipidemia Hospital Course: The patient is an 85-year-old female with a past medical history of CAD with previous CT and pacemaker, diastolic congestive heart failure, chronic anemia, ESRD on dialysis Mondays/Wednesdays/Fridays, hypertension, hyperlipidemia, hypothyroidism, insulin-dependent diabetes mellitus-II, and atrial fibrillation on anticoagulation with Eliquis. She presented to the hospital on 02/11/21 with a chief complaint of generalized weakness and a low-grade fever with reports that her PCP told her that her urine was positive for VRE so she came to the emergency department for further evaluation. Patient was seen and fully evaluated in the emergency department. An EKG was completed showing a ventricular paced rhythm at 70 bpm chest x-ray revealed minimal partly fibrotic changes with no active or acute cardiopulmonary process. Labs drawn and CBC was consistent with patient's chronic anemia with hemoglobin of 9.5 with baseline hemoglobin of 10 and chronic thrombocytopenia with platelet count of 131, BMP consistent with ESRD. Patient was found to have hypomagnesemia with magnesium of 1.4 which was replaced. She was found positive UTI and initially started on IV Linezolid which was continued pending urine culture which was positive for E. coli. Patient is scheduled to have cystoscopy with biopsy of previously noted lesion within her bladder on 02/16/21. Patient receiving dialysis treatment at this time and to then be discharged home on Keflex 500 mg twice daily for the next 3 days. Patient also instructed to hold Eliquis pending surgical procedure and to resume as instructed by urologist after completion of procedure. Physical Examination: Patient seen and examined at bedside. She reports feeling well. Denies having any headache, lightheadedness, dizziness, changes in vision or hearing, chest pain or palpitations, shortness of breath, abdominal pain, nausea, vomiting, or experiencing any focal weakness/numbness/tingling in extremities. Vital signs reviewed and stable. General: Nontoxic, no distress and appears stated age. Derm: Skin warm and dry, normal coloration for ethnicity. Head: Atraumatic, normocephalic and symmetric. Eyes: EOMs intact, no lid lag, and anicteric sclera Mouth: no lip lesions, mucus membranes moist Cardiovascular: regular rate and rhythm with normal S1S2, no murmur, positive posterior tibial pulses bilaterally, and cap refill < 2 seconds. AV fistula proximal region of right upper extremity, bruit and thrill intact. Lungs: Respirations even, regular, and unlabored on room air. Lungs CTA bilaterally, no rhonchi, no rales, no wheezing, and no accessory muscle usage. Abdominal: soft, nontender to palpation, no guarding, no appreciable organomegaly. Ext: ROM intact. No gross muscle atrophy, no edema, no contractures. Neuro: Speech clear, face symmetrical and CN II-XII grossly intact with no noted focal neuro deficits Psych: Alert and oriented to person, place, time, and situation. Appropriate and pleasant affect. A total of 45 minutes of time were spent preparing this complex discharge s adalgisa. Patient Condition at Discharge: Stable Plan - Discharge Summary New Discharge Prescriptions: New Cephalexin [Keflex] 500 mg PO Q12HR 3 Days #6 cap Continue Levothyroxine Sodium [Synthroid] 100 mcg PO DAILY allopurinoL [Zyloprim] 100 mg PO DAILY atenoloL [Tenormin] 25 mg PO HS Pantoprazole [Protonix] 40 mg PO DAILY Insulin Lispro [humaLOG Kwikpen] See Protocol SQ AC-TID Torsemide [Demadex] 40 mg PO DAILY Calcium Acetate [PhosLo] 667 mg PO DAILY Mirtazapine [Remeron] 15 mg PO HS Flecainide [Tambocor] 50 mg PO BID Atorvastatin [Lipitor] 40 mg PO HS #30 tab Cyanocobalamin [Vitamin B-12] 500 mcg PO DAILY #30 tab Midodrine [ProAmatine] 5 mg PO MOWEFR PRN PRN Reason: low heart rate Calcium Carbonate [Tums] 1,000 mg PO QID PRN PRN Reason: between meals and snacks Atenolol [Tenormin] 50 mg PO DAILY Folic Acid-Vit B Complex-Vit C [Nephrocaps] 1 cap PO DAILY Cholecalciferol [Vitamin D3 (25 Mcg = 1000 Iu)] 100 mcg PO DAILY Discontinued Apixaban [Eliquis] 2.5 mg PO BID Discharge Medication List Levothyroxine Sodium [Synthroid] 100 mcg PO DAILY 01/31/14 [History] allopurinoL [Zyloprim] 100 mg PO DAILY 01/18/17 [History] atenoloL [Tenormin] 25 mg PO HS 10/10/17 [History] Pantoprazole [Protonix] 40 mg PO DAILY 08/16/19 [History] Insulin Lispro [humaLOG Kwikpen] See Protocol SQ AC-TID 02/04/20 [History] Torsemide [Demadex] 40 mg PO DAILY 02/22/20 [History] Calcium Acetate [PhosLo] 667 mg PO DAILY 05/25/20 [History] Mirtazapine [Remeron] 15 mg PO HS 05/25/20 [History] Flecainide [Tambocor] 50 mg PO BID 07/26/20 [History] Atenolol [Tenormin] 50 mg PO DAILY 01/10/21 [History] Calcium Carbonate [Tums] 1,000 mg PO QID PRN 01/10/21 [History] Cholecalciferol [Vitamin D3 (25 Mcg = 1000 Iu)] 100 mcg PO DAILY 01/10/21 [History] Folic Acid-Vit B Complex-Vit C [Nephrocaps] 1 cap PO DAILY 01/10/21 [History] Midodrine [ProAmatine] 5 mg PO MOWEFR PRN 01/10/21 [History] Atorvastatin [Lipitor] 40 mg PO HS #30 tab 02/06/21 [Rx] Cyanocobalamin [Vitamin B-12] 500 mcg PO DAILY #30 tab 02/06/21 [Rx] Cephalexin [Keflex] 500 mg PO Q12HR 3 Days #6 cap 02/14/21 [Rx] Follow up Appointment(s)/Referral(s): Liza Vargas MD [Primary Care Provider] - 02/20/21 4:30 pm Rafael Canas MD [STAFF PHYSICIAN] - 02/20/21 9:40 am [facility], [NON-STAFF] - Activity/Diet/Wound Care/Special Instructions: Activity: As tolerated. Diet: Heart healthy diet Special Instructions: Hold Eliquis as discussed until further cleared by your urologist-Dr. Rahbar to resume after your cystoscopy. Cystoscopy is currently scheduled outpatient for FridayFebruary 16 at 3:00pm, please plan to arrive at the hospital at least 2 hours before your scheduled time. Hospital registration will call you to register you and give you your arrival time and instructions. Discharge Disposition: HOME WITH HOME HEALTH SERVICES <Meghann Bazan - Last Filed: 02/14/21 17:07> Providers Date of admission: 02/11/21 20:23 Attending physician: Raimundo Araiza MD Consults: 02/11/21 20:23 Consult Physician Urgent Consulting Provider: Shaji Velazco Consult Reason/Comments: dialysis patient, chronic renal failure Do you want consulting provider notified?: Yes 02/11/21 20:25 Consult Physician Urgent Consulting Provider: Israel Ayon Consult Reason/Comments: UTI, reported VRE Do you want consulting provider notified?: Yes 02/12/21 10:02 Consult Physician Routine Consulting Provider: Rafael Canas Consult Reason/Comments: UTI with history of VRE Do you want consulting provider notified?: Yes Primary care physician: Liza Vargas MD Hospital Course: Samson Fuller NP rendered care for this patient independently, reviewed the findings and plan as documented in the note above. I did not physically speak with or examine the patient on this date.
[2021-02-14 11:43] LABS: Glucose,Whole Blood 118 mg/dL (75-99)
--- NOTE | 2021-02-14 13:31 | PN ---
PROGRESS NOTE Patient is seen for followup for end-stage renal disease. She is currently comfortable, awake. Denies any significant complaints. PHYSICAL EXAMINATION: Blood pressure 111/60, heart rate 70 per minute. She is afebrile. Examination of the heart S1, S2. Examination of the lungs, bilateral breath sounds are heard. Abdomen is soft, nontender. Examination of lower extremities edema 1+ bilaterally. [employer] exam grossly intact. LAB: Show sodium 137, potassium 3.5, chloride 104, BUN 32, creatinine 3.76, hemoglobin 8.7 g/dL. ASSESSMENT: 1. End-stage renal disease, on hemodialysis on a Friday, Friday . 2. Chronic kidney disease, mineral bone disorder, maintained on PhosLo. 3. Generalized weakness, receiving physical therapy. 4. Volume overload. PLAN: Hemodialysis today. Increase UF to about 3-4 L as tolerated and consider extra treatment tomorrow if the patient is still hospitalized. Add Araaminap. MMODL / IJN: [id number] /
[2021-02-14] MEDS: CALCIUM ACETATE 667 MG TAB PO SCH (13:41)
[2021-02-14] MEDS: FLECAINIDE 50 MG TAB PO SCH (13:41)
[2021-02-14] MEDS: atenoloL 50 MG TAB PO SCH (13:41)
[2021-02-14] MEDS: FOLIC ACID-VIT B COMPLEX-VIT C 1 CAP PO SCH (13:41)
[2021-02-14] MEDS: CYANOCOBALAMIN 500 MCG TAB PO SCH (13:41)
[2021-02-14] MEDS: PANTOPRAZOLE 40 MG TABLET PO SCH (13:42)
[2021-02-14] MEDS: CHOLECALCIFEROL 25 MCG (1000 IU) TABLET PO SCH (13:42)
[2021-02-14] MEDS: allopurinoL 100 MG TAB PO SCH (13:42)
[2021-02-14 13:47] VITALS: RESP 18
[2021-02-14] MEDS: TORSEMIDE 20 MG TAB PO SCH (13:48)
[2021-02-14] MEDS ORDERED: DARBEPOETIN ALFA 60 MCG/0.3 ML SYRINGE SQ SCH (14:00)
[2021-02-14] MEDS: MAGNESIUM SULFATE-D5W PMX 1 GM in DEXTROSE/WATER 1 100ML.BAG IVPB SCH ×3 (14:34→17:12)
[2021-02-14 14:50] VITALS: BP 110/64; PULSE 61; TEMP 98.4
--- NOTE | 2021-02-14 15:33 | PN ---
PROGRESS NOTE DATE OF SERVICE: 02/14/2021. REASON FOR FOLLOW UP: E coli urinary tract infection. INTERVAL HISTORY: The patient is afebrile. The patient is breathing comfortably. Patient denies any chest pain. No shortness of breath. No abdominal pain. Urinary symptoms has been complaining of some itching. PHYSICAL EXAMINATION: Blood pressure 135/62 with a pulse of 53. Temperature 96.9. She is 94% on room air. General description is an elderly female lying in bed in no distress. Respiratory system: Unlabored breathing. Clear to auscultation anteriorly. Heart S1, S2. Regular rate and rhythm. ABDOMEN: Soft, no tenderness. LAB: Hemoglobin 8.1, white count 4.2, BUN of 32, creatinine 3.76. DIAGNOSTIC IMPRESSION AND PLAN: Patient with E coli urinary tract infection. Overall improvement on Rocephin. Finish therapy with a short course of oral Ceftin. May benefit from a low-dose prophylaxis Keflex to prevent recurrent urinary tract infection. Continue supportive care. MMODL / IJN: [id number] /
[2021-02-14 16:30] LABS: Glucose,Whole Blood 201 mg/dL (75-99)
--- NOTE | 2021-02-14 16:47 | P.PN ---
Progress Note - Text Progress Note Date: 02/14/21 no acute overnight events, denies any urinary issues. Her urine culture growing E. coli, susceptible to PO antibiotics. medically she is stable for discharge, A/P 85-year-old female with history of microscopic hematuria, recurrent UTIs. cystoscopy showed erythematous lesion within the bladder, recommended to undergo a biopsy. Urine culture growing E. coli, susceptible to po antibiotics -We discussed the surgery with patient daughter, she is okay for discharge from urology standpoint, she will follow up on Friday for the cystoscopy, bladder biopsy, bilateral retrograde
== END 2021-02-14 19:00 | disposition home health service (06) ==
LOC: EC 18:01 → 4SSUR 20:23
PROVIDERS: ADMIT Internal Medicine; ATTEND Internal Medicine
DX: N39.0 Urinary tract infection, site not specified (principal); B96.20 Unspecified Escherichia coli [E. coli] as the cause of diseases classified elsewhere; Z16.21 Resistance to vancomycin; I13.2 Hypertensive heart and chronic kidney disease with heart failure and with stage 5 chronic kidney disease, or end stage renal disease; N18.6 End stage renal disease; I50.32 Chronic diastolic (congestive) heart failure; N32.9 Bladder disorder, unspecified; Z99.2 Dependence on renal dialysis; D53.9 Nutritional anemia, unspecified; D63.8 Anemia in other chronic diseases classified elsewhere; D69.6 Thrombocytopenia, unspecified; E83.42 Hypomagnesemia; M89.9 Disorder of bone, unspecified; E11.40 Type 2 diabetes mellitus with diabetic neuropathy, unspecified; E11.22 Type 2 diabetes mellitus with diabetic chronic kidney disease; I48.91 Unspecified atrial fibrillation; E78.5 Hyperlipidemia, unspecified; I25.2 Old myocardial infarction; M06.9 Rheumatoid arthritis, unspecified; G47.33 Obstructive sleep apnea (adult) (pediatric); K21.9 Gastro-esophageal reflux disease without esophagitis; M19.90 Unspecified osteoarthritis, unspecified site; E03.9 Hypothyroidism, unspecified; I49.5 Sick sinus syndrome; I95.9 Hypotension, unspecified; I65.23 Occlusion and stenosis of bilateral carotid arteries; I25.10 Atherosclerotic heart disease of native coronary artery without angina pectoris; G89.29 Other chronic pain; M54.9 Dorsalgia, unspecified; M25.562 Pain in left knee; M25.561 Pain in right knee; Z16.12 Extended spectrum beta lactamase (ESBL) resistance; Z16.24 Resistance to multiple antibiotics; Z20.822 Contact with and (suspected) exposure to COVID-19; Z79.4 Long term (current) use of insulin; Z79.890 Hormone replacement therapy; Z79.01 Long term (current) use of anticoagulants; Z79.899 Other long term (current) drug therapy; Z88.0 Allergy status to penicillin; Z88.2 Allergy status to sulfonamides; Z88.5 Allergy status to narcotic agent; Z86.711 Personal history of pulmonary embolism; Z87.440 Personal history of urinary (tract) infections; Z86.718 Personal history of other venous thrombosis and embolism; Z90.710 Acquired absence of both cervix and uterus; Z98.42 Cataract extraction status, left eye; Z98.41 Cataract extraction status, right eye; Z86.73 Personal history of transient ischemic attack (TIA), and cerebral infarction without residual deficits; Z95.0 Presence of cardiac pacemaker; Z82.61 Family history of arthritis; Z83.3 Family history of diabetes mellitus; Z82.49 Family history of ischemic heart disease and other diseases of the circulatory system; Z80.9 Family history of malignant neoplasm, unspecified
CPT/HCPCS: 96366 ×4; 96367 ×2; 96372; 96365; 99285; 36415; 93005; 97162; 97530; 97535; 97165; 84439; 80053 ×2; 80048; 83605; 83735 ×2; 84443; 84484; 85025 ×2; 85027; 85610; 85730; 86706; 87340; 81001; 87040; 87324; 87086; 87077; 87186; 87635; 71046; G0257 ×2; G0378 ×4; J0696 ×3; J2020 ×2; J3475; J0881; 90935

== ENCOUNTER → 2021-02-16 | Day surgery (SDC) | payer MEDICARE ==
[~2021-02-16] MED LIST changes: -CLINDAMYCIN 600 MG in SODIUM CHLORIDE 0.9% IRRIGATIO 250 ML IRRIGATION ONE; +DEXAMETHASONE SOD PHOSPHATE 4 MG/ML 1 ML VIAL IV ONE; +HYDROmorphone 0.5 MG/0.5 ML SYRINGE IVP ONE; -HYDROmorphone 1 MG/ML 1 ML SYRINGE IVP PRN; +IOPAMIDOL-370 50ML BTL IRRIGATION ONE; +LIDOCAINE 1% (10MG/ML) FOR IV START INTRADERMA ONE; -LIDOCAINE 1% 20 ML VIAL (10MG/ML) FOR IV START INTRADERMA PRN; +LIDOCAINE 1% INJ 10MG/ML (20 ML MDV) ONE; +MIDAZOLAM 2 MG/2 ML VIAL IV PRN; +ONDANSETRON 4 MG/2 ML VIAL IVP ONE; -ONDANSETRON 4 MG/2 ML VIAL IVP PRN; +PHENYLEPHRINE-0.9% NACL SYG 1,000 MCG/10 ML SYRINGE ONE; +PROPOFOL 10 MG/ML 20 ML VIAL IV ONE; -SODIUM CHLORIDE 0.9% 1,000 ML IV SCH; +SODIUM CHLORIDE 0.9% 100 ML with ceFAZolin 2,000 MG IV ONE; +fentaNYL (PF) 50 MCG/ML 2 ML AMP IV PRN; +fentaNYL (PF) 50 MCG/ML 2 ML AMP ONE
[2021-02-16 14:04] LABS: Glucose,Whole Blood 115 mg/dL (75-99)
[2021-02-16 15:32] VITALS: TEMP 96.8
--- NOTE | 2021-02-16 15:59 | P.OP ---
Date of Procedure: 02/16/21 Preoperative Diagnosis: Microscopic hematuria Postoperative Diagnosis: Same Procedure(s) Performed: Cystoscopy, bladder biopsy, fulguration Implants: none Anesthesia: MICHEALA Surgeon: Rafael Canas Estimated Blood Loss (ml): 20 Pathology: other (bladder biopsy) Condition: stable Disposition: PACU Indications for Procedure: 85-year-old female with multiple comorbidities, end-stage renal disease on hemodialysis. She has history of recurrent UTIs and microscopic hematuria, underwent a cystoscopy that showed an erythematous lesion within the bladder. She was scheduled for biopsy last week, surgery was canceled due to a positive urine culture. presented to the hospital with weakness, low-grade fever. She is currently on antibiotics, based on culture susceptibility. Discussed with her the option of doing the bladder biopsy while she is on antibiotics. Discussed the risk which includes but not limited to bleeding, infection, bladder perforation. she understood all the risk and agreed to proceed Operative Findings: Diffusely erythematous bladder, bladder mucosa very friable Description of Procedure: Patient brought to the operating room, general anesthesia was induced. She was prepped and draped in sterile fahsion and placed in dorsal lithotomy position. A cystoscopy fitted with 21-Cymro sheath was inserted per urethra, cystoscopy was performed which showed a very friable bladder, and diffuse erythema throughout the bladder, CIS could not be roled out. The previous lesion at the dome could not be visualized this time, but of note the bladder was very friable. I could not identify ureteral orifice. At this time I inserted a resectoscope fitted with a 25-Cymro sheath, multiple biopsies of the bladder was taken and sent to pathology. The area of biopsy was thoroughly fulgurated. The bladder was emptied at end of the case with return of clear urine. An 18- Cymro Bunn catheter was placed with return of clear urine. Patient tolerated the procedure well was taken to PACU in stable condition
[2021-02-16 16:15] LABS: Glucose,Whole Blood 136 mg/dL (75-99)
[2021-02-16 16:23] VITALS: RESP 17
[2021-02-16 18:57] VITALS: BP 126/50; PULSE 64
== END | disposition home or self-care (01) ==
LOC: OR 12:54
PROVIDERS: ADMIT Internal Medicine; ATTEND Urology
DX: N30.21 Other chronic cystitis with hematuria (principal); N30.01 Acute cystitis with hematuria; Z87.440 Personal history of urinary (tract) infections; I48.91 Unspecified atrial fibrillation; I13.2 Hypertensive heart and chronic kidney disease with heart failure and with stage 5 chronic kidney disease, or end stage renal disease; E11.22 Type 2 diabetes mellitus with diabetic chronic kidney disease; N18.6 End stage renal disease; E11.42 Type 2 diabetes mellitus with diabetic polyneuropathy; I50.9 Heart failure, unspecified; Z99.2 Dependence on renal dialysis; Z86.73 Personal history of transient ischemic attack (TIA), and cerebral infarction without residual deficits; Z86.718 Personal history of other venous thrombosis and embolism; K21.9 Gastro-esophageal reflux disease without esophagitis; E78.5 Hyperlipidemia, unspecified; I25.2 Old myocardial infarction; M19.90 Unspecified osteoarthritis, unspecified site; Z86.711 Personal history of pulmonary embolism; M06.9 Rheumatoid arthritis, unspecified; G47.30 Sleep apnea, unspecified; E03.9 Hypothyroidism, unspecified; I49.5 Sick sinus syndrome; Z95.0 Presence of cardiac pacemaker; G47.33 Obstructive sleep apnea (adult) (pediatric); G89.29 Other chronic pain; M54.9 Dorsalgia, unspecified; M25.562 Pain in left knee; M25.561 Pain in right knee; Z86.19 Personal history of other infectious and parasitic diseases; Z90.710 Acquired absence of both cervix and uterus; Z98.890 Other specified postprocedural states; Z98.42 Cataract extraction status, left eye; Z98.41 Cataract extraction status, right eye; Z82.49 Family history of ischemic heart disease and other diseases of the circulatory system; Z83.3 Family history of diabetes mellitus; Z83.438 Family history of other disorder of lipoprotein metabolism and other lipidemia; Z82.61 Family history of arthritis; Z80.9 Family history of malignant neoplasm, unspecified; Z79.890 Hormone replacement therapy; Z79.4 Long term (current) use of insulin; Z79.899 Other long term (current) drug therapy; Z88.0 Allergy status to penicillin; Z88.2 Allergy status to sulfonamides; Z88.5 Allergy status to narcotic agent
CPT/HCPCS: 88305; 52204; C1758 ×3; J1100; J2405; J0690; J2001; J3010; J2370; J2704; J1170; Q9967

== ENCOUNTER 2021-02-19 10:22 | Emergency (ER) | payer MEDICARE ==
[2021-02-19 10:47] VITALS: TEMP 98
--- NOTE | 2021-02-19 11:18 | ED ---
General Adult HPI <Haris Owens - Last Filed: 02/19/21 14:24> - General Source: family, RN notes reviewed, old records reviewed Mode of arrival: wheelchair - History of Present Illness -: days(s) (3) Location: abdomen (Suprapubic) Radiation: non-radiation Severity scale (1-10): 0 Consistency: intermittent, now resolved Associated Symptoms: nausea/vomiting, weakness <Fausto Anderson - Last Filed: 02/19/21 14:33> - General Chief complaint: Recheck/Abnormal Lab/Rx Stated complaint: bladder problems - History of Present Illness Initial comments: 85-year-old white female presents to the emergency room with her family members 2 with complaints of fatigue, suprapubic abdominal pain, nausea and vomiting and diarrhea Friday. Patient's daughter states that she had a bladder biopsy done on February [address] Gonzalez and Bunn catheter was placed. Patient is taking Pyridium also patient has been complaining of pain with urination despite having Bunn catheter in place. Family states that patient had 4 episodes of vomiting food yesterday with 3 episodes of diarrhea that were watery but not bloody. Today patient has had 3 episodes of diarrhea but no vomiting but is complaining of nausea. She is fatigued. States that she is scheduled to have her dialysis today but was too sick to go. Daughter states that patient did have [employer] bur[employer] this morning and was able to keep it down. Patient has a history of renal dialysis, atrial fibrillation, pacemaker, [place], CVA, heart william lure, diabetes, hypertension, pulmonary embolism, rectocele and cystocele. Patient has a fistula in her right upper arm for renal dialysis. Patient denies any shortness of breath or chest pain. Patient denies fevers. (Fausto Anderson) - Related Data Home Medications Medication Instructions Recorded Confirmed Levothyroxine Sodium [Synthroid] 100 mcg PO DAILY 01/31/14 02/19/21 allopurinoL [Zyloprim] 100 mg PO DAILY 01/18/17 02/19/21 atenoloL [Tenormin] 25 mg PO HS 10/10/17 02/19/21 Pantoprazole [Protonix] 40 mg PO DAILY 08/16/19 02/19/21 Insulin Lispro [humaLOG Kwikpen] See Protocol SQ AC-TID 02/04/20 02/19/21 Torsemide [Demadex] 40 mg PO DAILY 02/22/20 02/19/21 Calcium Acetate [PhosLo] 667 mg PO DAILY 05/25/20 02/19/21 Mirtazapine [Remeron] 15 mg PO HS 05/25/20 02/19/21 Flecainide [Tambocor] 50 mg PO BID 07/26/20 02/19/21 Atenolol [Tenormin] 50 mg PO DAILY 01/10/21 02/19/21 Calcium Carbonate [Tums] 1,000 mg PO QID PRN 01/10/21 02/19/21 Cholecalciferol [Vitamin D3 (25 100 mcg PO DAILY 01/10/21 02/19/21 Mcg = 1000 Iu)] Folic Acid-Vit B Complex-Vit C 1 cap PO DAILY 01/10/21 02/19/21 [Nephrocaps] Midodrine [ProAmatine] 5 mg PO MOWEFR PRN 01/10/21 02/19/21 Lidocaine-Prilocaine Cream [Emla 1 applic TOPICAL DAILY PRN 02/19/21 02/19/21 Cream 2.5%/2.5%] Previous Rx's Medication Instructions Recorded Atorvastatin [Lipitor] 40 mg PO HS #30 tab 02/06/21 Cyanocobalamin [Vitamin B-12] 500 mcg PO DAILY #30 tab 02/06/21 Phenazopyridine HCl [Pyridium] 100 mg PO TID #9 tab 02/16/21 Allergies Allergy/AdvReac Type Severity Reaction Status Date / Time amoxicillin Allergy Rash/Hives Verified 02/19/21 10:47 Penicillins Allergy Rash/Hives Verified 02/19/21 10:47 Sulfa (Sulfonamide Allergy Rash/Hives Verified 02/19/21 10:47 Antibiotics) meperidine HCl [From Demerol] AdvReac Nausea & Verified 02/19/21 10:47 Vomiting Review of Systems ROS Other: All systems not noted in ROS Statement are negative. <Haris Owens - Last Filed: 02/19/21 14:24> ROS Other: All systems not noted in ROS Statement are negative. <Fausto Anderson - Last Filed: 02/19/21 14:33> ROS Statement: Those systems with pertinent positive or pertinent negative responses have been documented in the HPI. Past Medical History Past Medical History: Atrial Fibrillation, Heart Failure, CVA/TIA, Diabetes Mellitus, Dialysis, Deep Vein Thrombosis (DVT), GERD/Reflux, Hyperlipidemia, Hypertension, Myocardial Infarction ([place]), Osteoarthritis (OA), Pulmonary Embolus (PE), Renal Disease, Rheumatoid Arthritis (RA), Sleep Apnea/CPAP/BIPAP, Thyroid Disorder Additional Past Medical History / Comment(s): on 02/06/20 with UTI/ESBL/bacteremia. Other hx: IDDM type II, diabetic neuropathy bilateral hands/feet, ESRD with hemodialysis, recurrent UTIs, pt was told she had a past [place] d/t EKG, palpitations, SSS with pacer, HARRIS with Cpap, chronic back and bilateral knee pain, hypothyroid. bilat carotid artery occlusions and a stroke she was unaware of Last Myocardial Infarction Date:: unknown History of Any Multi-Drug Resistant Organisms: ESBL, MRSA, VRE Date of last positivie culture/infection: 02/01/21 VRE & MRSA at [facility] MDRO Source:: URINE-VRE & MRSA Past Surgical History: Bladder Surgery, Hysterectomy, Pacemaker Additional Past Surgical History / Comment(s): 02/01/20 R upper arm fistula repositioned, R chest booen cath, rectocele, cystocele, hemorrhoidectomy, bilateral leg vein strippings, bilateral cataract removal, Picc lines, bladder biopsy Past Anesthesia/Blood Transfusion Reactions: No Reported Reaction Type of Cardiac Device: Permanent Pacemaker Device Placement Date:: 01/2017 Past Psychological History: No Psychological Hx Reported Smoking Status: Never smoker Past Alcohol Use History: None Reported Past Drug Use History: None Reported - Past Family History Father Family Medical History: AFIB, AICD/Pacemaker, Congestive Heart Failure (CHF), Coronary Artery Disease (CAD), Diabetes Mellitus, Dialysis, Deep Vein Thrombosis (DVT), Hyperlipidemia, Hypertension, Myocardial Infarction ([place]), Rheumatoid Arthritis (RA) Mother Family Medical History: Unable to Obtain Sister(s) Family Medical History: Cancer <MonicaFausto - Last Filed: 02/19/21 14:33> General Exam Limitations: physical limitation General appearance: alert, in no apparent distress Head exam: Present: atraumatic, normocephalic, normal inspection Eye exam: Present: normal appearance, PERRL, EOMI. Absent: scleral icterus, conjunctival injection, periorbital swelling Pupils: Present: normal accommodation ENT exam: Present: normal exam, normal oropharynx, mucous membranes moist Neck exam: Present: normal inspection, full ROM. Absent: tenderness, meningismus, lymphadenopathy Respiratory exam: Present: normal lung sounds bilaterally. Absent: respiratory distress, wheezes, rales, rhonchi, stridor, chest wall tenderness, accessory muscle use Cardiovascular Exam: Present: bradycardia GI/Abdominal exam: Present: soft, normal bowel sounds. Absent: distended, tenderness, guarding, rebound, rigid, mass, pulsatile mass, hernia External exam: Present: other (Patient has an indwelling Bunn catheter) Extremities exam: Present: full ROM, normal capillary refill, pedal edema. Absent: tenderness, calf tenderness Neurological exam: Present: alert, oriented X3, CN II-XII intact Psychiatric exam: Present: normal affect, normal mood Skin exam: Present: warm, dry, intact, normal color. Absent: rash, cyanosis, diaphoretic, erythema, petechiae, pallor, mottled <Fausto Anderson - Last Filed: 02/19/21 14:33> Course <Haris Owens - Last Filed: 02/19/21 14:24> Vital Signs 02/19/21 02/19/21 02/19/21 10:44 11:51 13:42 Temperature 98.0 F Pulse Rate 58 L 68 70 Respiratory 20 18 16 Rate Blood Pressure 111/66 130/51 123/49 O2 Sat by Pulse 68 L 98 96 Oximetry - Reevaluation(s) Reevaluation #1: 02/19/21 14:06 Provider supervision: I did personally evaluate this case patient did present with complaints of weakness she has had a bladder biopsy recently she does have evidence of some blood in the urine is likely secondary to the biopsy. No fevers chills or sweats. Patient did miss dialysis today however the creatinine is very similar to previous numbers patient will be discharged and keep follow- up with dialysis and PND.. I do agree with the assessment and plan. 02/19/21 14:24 (Haris Owens) EKG Findings - EKG Results: EKG: no acute changes (02/11/2021) <Fausto Anderson - Last Filed: 02/19/21 14:33> Medical Decision Making - Lab Data Result diagrams: 02/19/21 11:23 02/19/21 11:23 <Haris Owens - Last Filed: 02/19/21 14:24> - Lab Data Result diagrams: 02/19/21 11:23 02/19/21 11:23 <Fausto Anderson - Last Filed: 02/19/21 14:33> - Medical Decision Making 85-year-old female with no vomiting or diarrhea in the emergency room. Patient is afebrile with no chest pain or cough. Labs are unremarkable. Patient has an appointment with Dr. Canas tomorrow status post bladder biopsy and Dr. Sanchez her PCP tomorrow. Family is comfortable with being discharged home. Was directed by Dr Owen not to treat urine for UTI as it is likely posttraumatic from the bladder biopsy and patient did just finish antibiotics this week. Case discussed with Dr. Owens who was agreeable to being discharged home. Patient advised to the dialysis Friday and return to the emergency room with worsening symptoms. (Fausto Anderson) - Lab Data Lab Results 02/19/21 02/19/21 02/19/21 Range/Units 11:23 11:23 11:23 WBC 6.9 (3.8-10.6) k/uL RBC 2.38 L (3.80-5.40) m/uL Hgb 8.6 L (11.4-16.0) gm/dL Hct 25.6 L (34.0-46.0) % MCV 107.6 H (80.0-100.0) fL MCH 36.2 H (25.0-35.0) pg MCHC 33.7 (31.0-37.0) g/dL RDW 15.5 (11.5-15.5) % Plt Count 193 (150-450) k/uL MPV 7.7 Neutrophils % 67 % Lymphocytes % 25 % Monocytes % 4 % Eosinophils % 2 % Basophils % 0 % Neutrophils # 4.6 (1.3-7.7) k/uL Lymphocytes # 1.7 (1.0-4.8) k/uL Monocytes # 0.3 (0-1.0) k/uL Eosinophils # 0.1 (0-0.7) k/uL Basophils # 0.0 (0-0.2) k/uL Macrocytosis Marked A PT 13.6 H (9.0-12.0) sec INR 1.3 H (<1.2) APTT 25.1 (22.0-30.0) sec Sodium (137-145) mmol/L Potassium (3.5-5.1) mmol/L Chloride (98-107) mmol/L Carbon Dioxide (22-30) mmol/L Anion Gap mmol/L BUN (7-17) mg/dL Creatinine (0.52-1.04) mg/dL Est GFR (CKD-EPI)AfAm (>60 ml/min/1.73 sqM) Est GFR (CKD-EPI)NonAf (>60 ml/min/1.73 sqM) Glucose (74-99) mg/dL Plasma Lactic Acid Gilberto (0.7-2.0) mmol/L Calcium (8.4-10.2) mg/dL Total Bilirubin (0.2-1.3) mg/dL AST (14-36) U/L ALT (4-34) U/L Alkaline Phosphatase (38-126) U/L Troponin I (0.000-0.034) ng/mL Total Protein (6.3-8.2) g/dL Albumin (3.5-5.0) g/dL Amylase (30-110) U/L Lipase (23-300) U/L Urine Color Dark Vonore Urine Appearance Cloudy H (Clear) Urine pH 6.5 (5.0-8.0) Ur Specific Weiner 1.021 (1.001-1.035) Urine Protein 2+ H (Negative) Urine Glucose (UA) Negative (Negative) Urine Ketones Negative (Negative) Urine Blood Large H (Negative) Urine Nitrite Positive H (Negative) Urine Bilirubin 1+ H (Negative) Urine Urobilinogen 3.0 (<2.0) mg/dL Ur Leukocyte Esterase Large H (Negative) Urine RBC >182 H (0-5) /hpf Urine WBC >182 H (0-5) /hpf Urine WBC Clumps Moderate H (None) /hpf Ur Squamous Epith Cells 2 (0-4) /hpf Urine Bacteria Moderate H (None) /hpf Hyaline Casts 19 H (0-2) /lpf Urine Mucus Rare H (None) /hpf 06/02/19/21 02/19/21 Range/Units 11:23 11:23 11:23 WBC (3.8-10.6) k/uL RBC (3.80-5.40) m/uL Hgb (11.4-16.0) gm/dL Hct (34.0-46.0) % MCV (80.0-100.0) fL MCH (25.0-35.0) pg MCHC (31.0-37.0) g/dL RDW (11.5-15.5) % Plt Count (150-450) k/uL MPV Neutrophils % % Lymphocytes % % Monocytes % % Eosinophils % % Basophils % % Neutrophils # (1.3-7.7) k/uL Lymphocytes # (1.0-4.8) k/uL Monocytes # (0-1.0) k/uL Eosinophils # (0-0.7) k/uL Basophils # (0-0.2) k/uL Macrocytosis PT (9.0-12.0) sec INR (<1.2) APTT (22.0-30.0) sec Sodium 140 (137-145) mmol/L Potassium 4.3 (3.5-5.1) mmol/L Chloride 105 (98-107) mmol/L Carbon Dioxide 27 (22-30) mmol/L Anion Gap 8 mmol/L BUN 33 H (7-17) mg/dL Creatinine 3.52 H (0.52-1.04) mg/dL Est GFR (CKD-EPI)AfAm 13 (>60 ml/min/1.73 sqM) Est GFR (CKD-EPI)NonAf 11 (>60 ml/min/1.73 sqM) Glucose 118 H (74-99) mg/dL Plasma Lactic Acid Gilberto 1.9 (0.7-2.0) mmol/L Calcium 8.5 (8.4-10.2) mg/dL Total Bilirubin 0.3 (0.2-1.3) mg/dL AST 25 (14-36) U/L ALT 13 (4-34) U/L Alkaline Phosphatase 187 H (38-126) U/L Troponin I <0.012 (0.000-0.034) ng/mL Total Protein 5.3 L (6.3-8.2) g/dL Albumin 2.9 L (3.5-5.0) g/dL Amylase 38 (30-110) U/L Lipase 16 L (23-300) U/L Urine Color Urine Appearance (Clear) Urine pH (5.0-8.0) Ur Specific Weiner (1.001-1.035) Urine Protein (Negative) Urine Glucose (UA) (Negative) Urine Ketones (Negative) Urine Blood (Negative) Urine Nitrite (Negative) Urine Bilirubin (Negative) Urine Urobilinogen (<2.0) mg/dL Ur Leukocyte Esterase (Negative) Urine RBC (0-5) /hpf Urine WBC (0-5) /hpf Urine WBC Clumps (None) /hpf Ur Squamous Epith Cells (0-4) /hpf Urine Bacteria (None) /hpf Hyaline Casts (0-2) /lpf Urine Mucus (None) /hpf Disposition <Haris Owens - Last Filed: 02/19/21 14:24> Is patient prescribed a controlled substance at d/c from ED?: No Time of Disposition: 14:33 <Fausto Anderson - Last Filed: 02/19/21 14:33> Clinical Impression: Nausea vomiting and diarrhea Disposition: HOME SELF-CARE Condition: Fair Instructions (If sedation given, give patient instructions): Acute Nausea and Vomiting (ED), Acute Diarrhea (ED) Additional Instructions: Keep your appointment as scheduled with Dr. Sanchez and Dr. Canas tomorrow. Have dialysis Friday. Return to the emergency room with worsening symptoms, chest pain, shortness breath, inability to keep fluids down or fever. Referrals: Liza Vargas MD [Primary Care Provider] - 1-2 days
[2021-02-19 11:57] LABS: Basophils % (A) 0 %; Eosinophils # (A) 0.1 k/uL (0-0.7); Eosinophils % (A) 2 %; HCT 25.6 % (34.0-46.0); HGB 8.6 gm/dL (11.4-16.0); Lymphocytes # (A) 1.7 k/uL (1.0-4.8); Lymphocytes % (A) 25 %; MCH 36.2 pg (25.0-35.0); MCHC 33.7 g/dL (31.0-37.0); MCV 107.6 fL (80.0-100.0); Macrocytosis Marked; Mean Platelet Volume 7.7; Monocytes # (A) 0.3 k/uL (0-1.0); Monocytes % (A) 4 %; Neutrophils # (A) 4.6 k/uL (1.3-7.7); Neutrophils % (A) 67 %; Platelet Count 193 k/uL (150-450); RBC 2.38 m/uL (3.80-5.40); RDW 15.5 % (11.5-15.5); WBC 6.9 k/uL (3.8-10.6)
[2021-02-19 12:03] LABS: Appearance,Urine Cloudy (Clear); Bacteria,Urine Moderate /hpf; Bilirubin,Urine 1+ (Negative); Blood,Urine Large (Negative); Color,Urine Dark Orange; Glucose,Urine (UA) Negative (Negative); Hyaline Casts,Urine 19 /lpf (0-2); Ketones,Urine Negative (Negative); Leukocyte Esterase,Urine Large (Negative); Mucus,Urine Rare /hpf; Nitrite,Urine Positive (Negative); PH, Urine 6.5 (5.0-8.0); Protein,Urine 2+ (Negative); RBC,Urine >182 /hpf (0-5); Specific Gravity,Urine 1.021 (1.001-1.035); Squamous Epithelial Cell,Urine 2 /hpf (0-4); WBC,Urine >182 /hpf (0-5)
--- NOTE | 2021-02-19 12:16 | XR ---
EXAMINATION TYPE: XR KUB DATE OF EXAM: 02/19/2021 Comparison: 02/04/2020 Clinical History: 85-year-old female with abdominal pain abdominal pain Findings: Osteopenia. Degenerative changes lumbar spine. Previous intramedullary nail and screw fixation proxim al left femur. 3 AICD leads noted. Some mild patchy density at the left base. No dilated small bowel. No significant stool burden. Supine imaging limited for assessment of free air. Vascular calcifications in the pelvis. Impression: 1. Mild patchy atelectasis or early infiltrate at the left base. Correlate with patient's symptoms. 2. Nonobstructive bowel gas pattern. No significant stool burden.
[2021-02-19 12:17] LABS: INR 1.3 (<1.2); Partial Thromboplastin Time 25.1 sec (22.0-30.0); Prothrombin Time 13.6 sec (9.0-12.0)
[2021-02-19 12:22] LABS: Albumin 2.9 g/dL (3.5-5.0); Calcium 8.5 mg/dL (8.4-10.2); Potassium 4.3 mmol/L (3.5-5.1); Total Bilirubin 0.3 mg/dL (0.2-1.3); Total Protein 5.3 g/dL (6.3-8.2)
[2021-02-19 13:44] VITALS: PULSE 70
[2021-02-19 14:44] VITALS: BP 124/96; RESP 18
== END 2021-02-19 14:56 | disposition home or self-care (01) ==
LOC: EC 10:22
DX: R11.2 Nausea with vomiting, unspecified (principal); R19.7 Diarrhea, unspecified; R53.1 Weakness; R30.9 Painful micturition, unspecified; R10.2 Pelvic and perineal pain; R53.83 Other fatigue; I13.2 Hypertensive heart and chronic kidney disease with heart failure and with stage 5 chronic kidney disease, or end stage renal disease; I50.9 Heart failure, unspecified; E11.22 Type 2 diabetes mellitus with diabetic chronic kidney disease; N18.6 End stage renal disease; E78.5 Hyperlipidemia, unspecified; M06.9 Rheumatoid arthritis, unspecified; I25.2 Old myocardial infarction; K21.9 Gastro-esophageal reflux disease without esophagitis; I48.91 Unspecified atrial fibrillation; G47.33 Obstructive sleep apnea (adult) (pediatric); M19.90 Unspecified osteoarthritis, unspecified site; E11.40 Type 2 diabetes mellitus with diabetic neuropathy, unspecified; E03.9 Hypothyroidism, unspecified; Z86.711 Personal history of pulmonary embolism; Z86.73 Personal history of transient ischemic attack (TIA), and cerebral infarction without residual deficits; Z86.718 Personal history of other venous thrombosis and embolism; Z87.440 Personal history of urinary (tract) infections; Z79.4 Long term (current) use of insulin; Z79.890 Hormone replacement therapy; Z88.0 Allergy status to penicillin; Z88.2 Allergy status to sulfonamides; Z88.5 Allergy status to narcotic agent; Z99.2 Dependence on renal dialysis
CPT/HCPCS: 36415; 74018; 80053; 81001; 82150; 83605; 83690; 84484; 85025; 85610; 85730; 87086; 93005; 99285

== ENCOUNTER 2021-03-21 11:05 | Emergency (ER) | payer MEDICARE ==
[2021-03-21 11:09] VITALS: TEMP 98
[2021-03-21] MEDS ORDERED: SODIUM CHLORIDE 0.9% 500 ML 500 ML IV STA (11:42)
--- NOTE | 2021-03-21 11:52 | ED ---
Nausea/Vomiting/Diarrhea HPI - General Chief complaint: Nausea/Vomiting/Diarrhea Stated complaint: Vomiting/Diarrhea/Weakness Time Seen by Provider: 03/21/21 11:22 Source: patient, RN notes reviewed Mode of arrival: ambulatory Limitations: no limitations - History of Present Illness Initial comments: This is a 85-year-old female presents emergency from with family chief complaint of generalized weakness, vomiting diarrhea. Symptoms started last night several episodes of vomiting, diarrhea. States that she's little more weak than usual today. Patient has known renal disease and was scheduled for dialysis today but was recommended to come emergency department. Patient's had recurrent urinary tract infections and she has very low urine output. Patient had recent ESBL and VRE. No reported fever no chest pain she does complain of shortness breath though this is chronic. Patient has chronic leg swelling not worsened usual - Related Data Home Medications Medication Instructions Recorded Confirmed Levothyroxine Sodium [Synthroid] 100 mcg PO DAILY 01/31/14 02/19/21 allopurinoL [Zyloprim] 100 mg PO DAILY 01/18/17 02/19/21 atenoloL [Tenormin] 25 mg PO HS 10/10/17 02/19/21 Pantoprazole [Protonix] 40 mg PO DAILY 08/16/19 02/19/21 Insulin Lispro [humaLOG Kwikpen] See Protocol SQ AC-TID 02/04/20 02/19/21 Torsemide [Demadex] 40 mg PO DAILY 02/22/20 02/19/21 Calcium Acetate [PhosLo] 667 mg PO DAILY 05/25/20 02/19/21 Mirtazapine [Remeron] 15 mg PO HS 05/25/20 02/19/21 Flecainide [Tambocor] 50 mg PO BID 07/26/20 02/19/21 Atenolol [Tenormin] 50 mg PO DAILY 01/10/21 02/19/21 Calcium Carbonate [Tums] 1,000 mg PO QID PRN 01/10/21 02/19/21 Cholecalciferol [Vitamin D3 (25 100 mcg PO DAILY 01/10/21 02/19/21 Mcg = 1000 Iu)] Folic Acid-Vit B Complex-Vit C 1 cap PO DAILY 01/10/21 02/19/21 [Nephrocaps] Midodrine [ProAmatine] 5 mg PO MOWEFR PRN 01/10/21 02/19/21 Lidocaine-Prilocaine Cream [Emla 1 applic TOPICAL DAILY PRN 02/19/21 02/19/21 Cream 2.5%/2.5%] Previous Rx's Medication Instructions Recorded Atorvastatin [Lipitor] 40 mg PO HS #30 tab 02/06/21 Cyanocobalamin [Vitamin B-12] 500 mcg PO DAILY #30 tab 02/06/21 Phenazopyridine HCl [Pyridium] 100 mg PO TID #9 tab 02/16/21 Cephalexin [Keflex] 500 mg PO Q8HR #21 cap 03/21/21 Allergies Allergy/AdvReac Type Severity Reaction Status Date / Time amoxicillin Allergy Rash/Hives Verified 03/21/21 13:22 Penicillins Allergy Rash/Hives Verified 03/21/21 13:22 Sulfa (Sulfonamide Allergy Rash/Hives Verified 03/21/21 13:22 Antibiotics) meperidine HCl [From Demerol] AdvReac Nausea & Verified 03/21/21 13:22 Vomiting Review of Systems ROS Statement: Those systems with pertinent positive or pertinent negative responses have been documented in the HPI. ROS Other: All systems not noted in ROS Statement are negative. Past Medical History Past Medical History: Atrial Fibrillation, Heart Failure, CVA/TIA, Diabetes Mellitus, Dialysis, Deep Vein Thrombosis (DVT), GERD/Reflux, Hyperlipidemia, Hypertension, Myocardial Infarction ([place]), Osteoarthritis (OA), Pulmonary Embolus (PE), Renal Disease, Rheumatoid Arthritis (RA), Sleep Apnea/CPAP/BIPAP, Thyroid Disorder Additional Past Medical History / Comment(s): on 02/06/20 with UTI/ESBL/bacteremia. Other hx: IDDM type II, diabetic neuropathy bilateral hands/feet, ESRD with hemodialysis, recurrent UTIs, pt was told she had a past [place] d/t EKG, palpitations, SSS with pacer, HARRIS with Cpap, chronic back and bilateral knee pain, hypothyroid. bilat carotid artery occlusions and a stroke she was unaware of Last Myocardial Infarction Date:: unknown History of Any Multi-Drug Resistant Organisms: ESBL, MRSA, VRE Date of last positivie culture/infection: 02/01/21 VRE & MRSA at [facility] MDRO Source:: URINE-VRE & MRSA Past Surgical History: Bladder Surgery, Hysterectomy, Pacemaker Additional Past Surgical History / Comment(s): 02/01/20 R upper arm fistula repositioned, R chest boone cath, rectocele, cystocele, hemorrhoidectomy, bilateral leg vein strippings, bilateral cataract removal, Picc lines, bladder biopsy Past Anesthesia/Blood Transfusion Reactions: No Reported Reaction Type of Cardiac Device: Permanent Pacemaker Device Placement Date:: 01/2017 Past Psychological History: No Psychological Hx Reported Smoking Status: Never smoker Past Alcohol Use History: None Reported Past Drug Use History: None Reported - Past Family History Father Family Medical History: AFIB, AICD/Pacemaker, Congestive Heart Failure (CHF), Coronary Artery Disease (CAD), Diabetes Mellitus, Dialysis, Deep Vein Thrombosis (DVT), Hyperlipidemia, Hypertension, Myocardial Infarction (PA), Rheumatoid Arthritis (RA) Mother Family Medical History: Unable to Obtain Sister(s) Family Medical History: Cancer General Exam Limitations: no limitations General appearance: alert, in no apparent distress Head exam: Present: atraumatic, normocephalic, normal inspection Neck exam: Present: normal inspection, full ROM. Absent: tenderness, meningismus, lymphadenopathy Respiratory exam: Present: normal lung sounds bilaterally. Absent: respiratory distress, wheezes, rales, rhonchi, stridor Cardiovascular Exam: Present: regular rate, normal rhythm, normal heart sounds. Absent: systolic murmur, diastolic murmur, rubs, gallop, clicks GI/Abdominal exam: Present: soft, normal bowel sounds. Absent: distended, tende rness, guarding, rebound, rigid Extremities exam: Present: pedal edema Neurological exam: Present: alert, oriented X3 Skin exam: Present: warm, dry, intact, normal color. Absent: rash Course Vital Signs 03/21/21 11:06 Temperature 98 F Pulse Rate 70 Respiratory 18 Rate Blood Pressure 107/47 O2 Sat by Pulse 100 Oximetry Medical Decision Making - Medical Decision Making 85-year-old female presented for nausea vomiting diarrhea. Patient's found have urinary tract infection. Patient does have chronic renal failure she is scheduled for dialysis. I discussed with family and patient regarding her curre nt diagnosis UTI. I did offer admission family and patient requests to be discharged home will contact dialysis and return for any worsening change in symptoms. - Lab Data Result diagrams: 03/21/21 11:45 03/21/21 11:45 Lab Results 03/21/21 03/21/21 03/21/21 Range/Units 11:45 11:45 11:45 WBC 7.8 (3.8-10.6) k/uL RBC 3.26 L (3.80-5.40) m/uL Hgb 12.0 D (11.4-16.0) gm/dL Hct 37.4 (34.0-46.0) % MCV 114.6 H D (80.0-100.0) fL MCH 36.7 H (25.0-35.0) pg MCHC 32.0 (31.0-37.0) g/dL RDW 16.3 H (11.5-15.5) % Plt Count 188 (150-450) k/uL MPV 7.9 Neutrophils % 75 % Lymphocytes % 18 % Monocytes % 5 % Eosinophils % 1 % Basophils % 0 % Neutrophils # 5.9 (1.3-7.7) k/uL Lymphocytes # 1.4 (1.0-4.8) k/uL Monocytes # 0.4 (0-1.0) k/uL Eosinophils # 0.1 (0-0.7) k/uL Basophils # 0.0 (0-0.2) k/uL Hypochromasia Slight Anisocytosis Slight Macrocytosis Marked A Sodium 136 L (137-145) mmol/L Potassium 5.2 H (3.5-5.1) mmol/L Chloride 99 (98-107) mmol/L Carbon Dioxide 30 (22-30) mmol/L Anion Gap 7 mmol/L BUN 30 H (7-17) mg/dL Creatinine 3.73 H (0.52-1.04) mg/dL Est GFR (CKD-EPI)AfAm 12 (>60 ml/min/1.73 sqM) Est GFR (CKD-EPI)NonAf 10 (>60 ml/min/1.73 sqM) Glucose 97 (74-99) mg/dL Calcium 8.8 (8.4-10.2) mg/dL Phosphorus 3.8 (2.5-4.5) mg/dL Magnesium 1.7 (1.6-2.3) mg/dL Total Bilirubin 0.3 (0.2-1.3) mg/dL AST 27 (14-36) U/L ALT 15 (4-34) U/L Alkaline Phosphatase 178 H (38-126) U/L Total Protein 5.5 L (6.3-8.2) g/dL Albumin 2.8 L (3.5-5.0) g/dL Lipase 13 L (23-300) U/L Urine Color Yellow Urine Appearance Cloudy H (Clear) Urine pH 6.0 (5.0-8.0) Ur Specific Cardinal 1.022 (1.001-1.035) Urine Protein Trace H (Negative) Urine Glucose (UA) Negative (Negative) Urine Ketones Negative (Negative) Urine Blood Negative (Negative) Urine Nitrite Negative (Negative) Urine Bilirubin Negative (Negative) Urine Urobilinogen <2.0 (<2.0) mg/dL Ur Leukocyte Esterase Large H (Negative) Urine RBC 3 (0-5) /hpf Urine WBC 173 H (0-5) /hpf Urine WBC Clumps Moderate H (None) /hpf Ur Squamous Epith Cells 1 (0-4) /hpf Hyaline Casts 19 H (0-2) /lpf Urine Mucus Rare H (None) /hpf Disposition Clinical Impression: Nausea vomiting and diarrhea, CKD (chronic kidney disease), UTI (urinary tract infection) Disposition: HOME SELF-CARE Condition: Stable Instructions (If sedation given, give patient instructions): Urinary Tract Infection in Women (ED) Additional Instructions: Please return to the Emergency Department if symptoms worsen or any other concerns. Prescriptions: Cephalexin [Keflex] 500 mg PO Q8HR #21 cap Is patient prescribed a controlled substance at d/c from ED?: No Referrals: Liza Vargas MD [Primary Care Provider] - 1-2 days Time of Disposition: 13:28
--- NOTE | 2021-03-21 12:06 | XR ---
EXAMINATION TYPE: XR chest 2V DATE OF EXAM: 03/21/2021 COMPARISON: 02/11/2021 HISTORY: Shortness of breath TECHNIQUE: Frontal and lateral views of the chest are obtained. FINDINGS: Scattered senescent parenchymal changes noted. Hyperinflation compatible with COPD. No evidence for infiltrate. No evidence for atelectasis. Heart size is stable. Mediastinal structures are stable and grossly unremarkable. No evidence for hilar prominence. Degenerative changes dorsal spine. IMPRESSION: 1. No evidence for acute pulmonary disease.
[2021-03-21 12:12] LABS: Anisocytosis Slight; Basophils % (A) 0 %; Eosinophils # (A) 0.1 k/uL (0-0.7); Eosinophils % (A) 1 %; HCT 37.4 % (34.0-46.0); Hypochromasia Slight; Lymphocytes # (A) 1.4 k/uL (1.0-4.8); Lymphocytes % (A) 18 %; MCH 36.7 pg (25.0-35.0); Macrocytosis Marked; Mean Platelet Volume 7.9; Monocytes # (A) 0.4 k/uL (0-1.0); Monocytes % (A) 5 %; Neutrophils # (A) 5.9 k/uL (1.3-7.7); Neutrophils % (A) 75 %; Platelet Count 188 k/uL (150-450); RBC 3.26 m/uL (3.80-5.40); RDW 16.3 % (11.5-15.5); WBC 7.8 k/uL (3.8-10.6)
[2021-03-21 12:14] LABS: Albumin 2.8 g/dL (3.5-5.0); Calcium 8.8 mg/dL (8.4-10.2); MCV 114.6 fL (80.0-100.0); Magnesium 1.7 mg/dL (1.6-2.3); Phosphorus 3.8 mg/dL (2.5-4.5); Potassium 5.2 mmol/L (3.5-5.1); Total Bilirubin 0.3 mg/dL (0.2-1.3); Total Protein 5.5 g/dL (6.3-8.2)
[2021-03-21 13:03] LABS: Appearance,Urine Cloudy (Clear); Bilirubin,Urine Negative (Negative); Blood,Urine Negative (Negative); Color,Urine Yellow; Glucose,Urine (UA) Negative (Negative); Hyaline Casts,Urine 19 /lpf (0-2); Ketones,Urine Negative (Negative); Leukocyte Esterase,Urine Large (Negative); Mucus,Urine Rare /hpf; Nitrite,Urine Negative (Negative); Protein,Urine Trace (Negative); RBC,Urine 3 /hpf (0-5); Specific Gravity,Urine 1.022 (1.001-1.035); Squamous Epithelial Cell,Urine 1 /hpf (0-4); Urobilinogen,Urine <2.0 mg/dL (<2.0); WBC,Urine 173 /hpf (0-5)
[2021-03-21 13:51] VITALS: BP 112/42; PULSE 68; RESP 17
== END 2021-03-21 13:51 | disposition home or self-care (01) ==
LOC: EC 11:05
DX: N39.0 Urinary tract infection, site not specified (principal); E11.22 Type 2 diabetes mellitus with diabetic chronic kidney disease; I13.2 Hypertensive heart and chronic kidney disease with heart failure and with stage 5 chronic kidney disease, or end stage renal disease; N18.6 End stage renal disease; R19.7 Diarrhea, unspecified; I50.9 Heart failure, unspecified; E11.40 Type 2 diabetes mellitus with diabetic neuropathy, unspecified; E78.5 Hyperlipidemia, unspecified; I25.2 Old myocardial infarction; I48.91 Unspecified atrial fibrillation; G47.33 Obstructive sleep apnea (adult) (pediatric); E03.9 Hypothyroidism, unspecified; K21.9 Gastro-esophageal reflux disease without esophagitis; M06.9 Rheumatoid arthritis, unspecified; Z86.711 Personal history of pulmonary embolism; Z86.73 Personal history of transient ischemic attack (TIA), and cerebral infarction without residual deficits; Z86.718 Personal history of other venous thrombosis and embolism; Z87.440 Personal history of urinary (tract) infections; Z79.890 Hormone replacement therapy; Z79.4 Long term (current) use of insulin; Z88.0 Allergy status to penicillin; Z88.2 Allergy status to sulfonamides; Z88.5 Allergy status to narcotic agent; Z99.2 Dependence on renal dialysis
CPT/HCPCS: 36415; 71046; 80053; 81001; 83690; 83735; 84100; 85025; 87086; 93005; 96360; 99285

== ENCOUNTER 2021-04-07 09:16 | Inpatient (IN) | payer MEDICARE ==
[2021-04-07] MEDS ORDERED: ALBUTEROL NEBULIZED 2.5 MG/3 ML INHALATION STA (09:35)
[2021-04-07] MEDS ORDERED: IPRATROPIUM 0.5 MG/2.5 ML NEBU INHALATION STA (09:35)
--- NOTE | 2021-04-07 09:49 | ED ---
General Adult HPI - General Chief complaint: Shortness of Breath Stated complaint: JASMINE Time Seen by Provider: 04/07/21 09:18 Source: patient, EMS, RN notes reviewed, old records reviewed Mode of arrival: EMS Limitations: no limitations - History of Present Illness Initial comments: 85-year-old female with history of CHF, end-stage renal disease on hemodialysis and COPD presenting with increased dyspnea over the past 24 hours. She states that she had session of dialysis yesterday and received not full reduction 1.7 L. She has no chest pain. No fever. She does have a cough. She wears a CPAP machine at night and states that she had increased dyspnea throughout the night last night which was worse while lying flat. - Related Data Home Medications Medication Instructions Recorded Confirmed Levothyroxine Sodium [Synthroid] 100 mcg PO DAILY 01/31/14 03/21/21 allopurinoL [Zyloprim] 100 mg PO AC-BRKFST 01/18/17 03/21/21 atenoloL [Tenormin] 25 mg PO AC-SUPPER 10/10/17 03/21/21 Pantoprazole [Protonix] 40 mg PO AC-BRKFST 08/16/19 03/21/21 Insulin Lispro [humaLOG Kwikpen] See Protocol SQ AC-TID 02/04/20 03/21/21 Torsemide [Demadex] 40 mg PO SUTUTHSA@0700 02/22/20 03/21/21 Calcium Acetate [PhosLo] 1,334 mg PO AC-TID 05/25/20 03/21/21 Mirtazapine [Remeron] 15 mg PO HS 05/25/20 03/21/21 Flecainide [Tambocor] 50 mg PO AC-BID 07/26/20 03/21/21 Atenolol [Tenormin] 50 mg PO SUTUTHSA@0700 01/10/21 03/21/21 Calcium Carbonate [Tums] 1,000 mg PO QID PRN 01/10/21 03/21/21 Cholecalciferol [Vitamin D3 (25 100 mcg PO AC-LUNCH 01/10/21 03/21/21 Mcg = 1000 Iu)] Folic Acid-Vit B Complex-Vit C 1 cap PO AC-LUNCH 01/10/21 03/21/21 [Nephrocaps] Midodrine [ProAmatine] 5 mg PO MOWEFR PRN 01/10/21 03/21/21 Lidocaine-Prilocaine Cream [Emla 1 applic TOPICAL DAILY PRN 02/19/21 03/21/21 Cream 2.5%/2.5%] Acetaminophen Tab [Tylenol Tab] 1,000 mg PO AC-BID 03/21/21 03/21/21 Apixaban [Eliquis] 2.5 mg PO AC-BID 03/21/21 03/21/21 Diphenox-Atrop 2.5-0.025 mg 1 tab PO AC-BID 03/21/21 03/21/21 [Lomotil] Famotidine [Pepcid] 20 mg PO AC-TID PRN 03/21/21 03/21/21 Imodium Multi-Symptom 2mg/125mg Cap 2 cap PO AC-BID 03/21/21 03/21/21 Ondansetron HCl [Zofran] 4 mg PO Q8H PRN 03/21/21 03/21/21 Torsemide [Demadex] 40 mg PO MOWEFR@1800 03/21/21 03/21/21 Previous Rx's Medication Instructions Recorded Atorvastatin [Lipitor] 40 mg PO HS #30 tab 02/06/21 Cyanocobalamin [Vitamin B-12] 500 mcg PO DAILY #30 tab 02/06/21 Cephalexin [Keflex] 500 mg PO Q8HR #21 cap 03/21/21 Allergies Allergy/AdvReac Type Severity Reaction Status Date / Time amoxicillin Allergy Rash/Hives Verified 03/21/21 13:22 Penicillins Allergy Rash/Hives Verified 03/21/21 13:22 Sulfa (Sulfonamide Allergy Rash/Hives Verified 03/21/21 13:22 Antibiotics) meperidine HCl [From Demerol] AdvReac Nausea & Verified 03/21/21 13:22 Vomiting Review of Systems ROS Statement: Those systems with pertinent positive or pertinent negative responses have been documented in the HPI. ROS Other: All systems not noted in ROS Statement are negative. Past Medical History Past Medical History: Atrial Fibrillation, Heart Failure, CVA/TIA, Diabetes Mellitus, Dialysis, Deep Vein Thrombosis (DVT), GERD/Reflux, Hyperlipidemia, Hypertension, Myocardial Infarction (ID), Osteoarthritis (OA), Pulmonary Embolus (PE), Renal Disease, Rheumatoid Arthritis (RA), Sleep Apnea/CPAP/BIPAP, Thyroid Disorder Additional Past Medical History / Comment(s): on 02/06/20 with UTI/ESBL/bacteremia. Other hx: IDDM type II, diabetic neuropathy bilateral hands/feet, ESRD with hemodialysis, recurrent UTIs, pt was told she had a past [place] d/t EKG, palpitations, SSS with pacer, HARRIS with Cpap, chronic back and bilat eral knee pain, hypothyroid. bilat carotid artery occlusions and a stroke she was unaware of Last Myocardial Infarction Date:: unknown History of Any Multi-Drug Resistant Organisms: ESBL, MRSA, VRE Date of last positivie culture/infection: 02/01/21 VRE & MRSA at [facility] MDRO Source:: URINE-VRE & MRSA Past Surgical History: Bladder Surgery, Hysterectomy, Pacemaker Additional Past Surgical History / Comment(s): 02/01/20 R upper arm fistula repositioned, R chest boone cath, rectocele, cystocele, hemorrhoidectomy, bilateral leg vein strippings, bilateral cataract removal, Picc lines, bladder biopsy Past Anesthesia/Blood Transfusion Reactions: No Reported Reaction Type of Cardiac Device: Permanent Pacemaker Device Placement Date:: 01/2017 Past Psychological History: No Psychological Hx Reported Smoking Status: Never smoker Past Alcohol Use History: None Reported Past Drug Use History: None Reported - Past Family History Father Family Medical History: AFIB, AICD/Pacemaker, Congestive Heart Failure (CHF), Coronary Artery Disease (CAD), Diabetes Mellitus, Dialysis, Deep Vein Thrombosis (DVT), Hyperlipidemia, Hypertension, Myocardial Infarction (ID), Rheumatoid Arthritis (RA) Mother Family Medical History: Unable to Obtain Sister(s) Family Medical History: Cancer General Exam Limitations: no limitations General appearance: alert, in no apparent distress Head exam: Present: atraumatic, normocephalic Eye exam: Present: normal appearance, PERRL Neck exam: Present: normal inspection. Absent: tenderness, meningismus Respiratory exam: Present: wheezes, rales, decreased breath sounds Cardiovascular Exam: Present: regular rate, normal rhythm GI/Abdominal exam: Present: soft. Absent: distended, tenderness Extremities exam: Present: pedal edema Back exam: Present: normal inspection Neurological exam: Present: alert, oriented X3, CN II-XII intact. Absent: motor sensory deficit Psychiatric exam: Present: normal affect, normal mood Skin exam: Present: warm, dry, intact Course Vital Signs 04/07/21 04/07/21 04/07/21 09:16 09:26 09:30 Temperature 98.3 F Pulse Rate 77 72 Respiratory 18 16 Rate Blood Pressure 125/55 125/55 O2 Sat by Pulse 98 100 100 Oximetry 04/07/21 04/07/21 04/07/21 10:00 10:18 10:30 Temperature Pulse Rate 72 75 80 Respiratory 17 16 Rate Blood Pressure 115/37 98/83 O2 Sat by Pulse 97 Oximetry EKG Findings - EKG Comments: EKG Findings:: EKG: Atrial sensed ventricular paced rhythm, rate of 73, SC interval 196, QRS duration 194, QTC 559, Medical Decision Making - Medical Decision Making 85-year-old female with history of COPD, end-stage renal disease, CHF presenting with dyspnea. Patient is wheezing on exam with diminished breath sounds bilaterally. She started on steroids, given albuterol and Atrovent in the emergency department. Additionally she has a chest x-ray showing small effusion. No focal pneumonia. She has normal white blood cell count, stable hemoglobin. She has an elevated BNP at 11,400. She will be admitted for combination of fluid overload with end-stage renal disease, and COPD exacerbation. Case discussed with Dr. Owen who will admit. - Lab Data Result diagrams: 04/07/21 09:30 04/07/21 09:54 Lab Results 04/07/21 04/07/21 04/07/21 Range/Units 09:30 09:54 09:54 WBC 8.2 (3.8-10.6) k/uL RBC 3.75 L (3.80-5.40) m/uL Hgb 13.6 (11.4-16.0) gm/dL Hct 42.3 (34.0-46.0) % MCV 112.7 H (80.0-100.0) fL MCH 36.4 H (25.0-35.0) pg MCHC 32.3 (31.0-37.0) g/dL RDW 15.5 (11.5-15.5) % Plt Count 132 L (150-450) k/uL MPV 8.2 Neutrophils % 59 % Lymphocytes % 32 % Monocytes % 5 % Eosinophils % 1 % Basophils % 0 % Neutrophils # 4.8 (1.3-7.7) k/uL Lymphocytes # 2.6 (1.0-4.8) k/uL Monocytes # 0.4 (0-1.0) k/uL Eosinophils # 0.1 (0-0.7) k/uL Basophils # 0.0 (0-0.2) k/uL Manual Slide Review Performed Macrocytosis Marked A PT 15.7 H (9.0-12.0) sec INR 1.6 H (<1.2) APTT 28.8 (22.0-30.0) sec Sodium 134 L (137-145) mmol/L Potassium 3.5 (3.5-5.1) mmol/L Chloride 95 L (98-107) mmol/L Carbon Dioxide 33 H (22-30) mmol/L Anion Gap 6 mmol/L BUN 13 (7-17) mg/dL Creatinine 2.54 H (0.52-1.04) mg/dL Est GFR (CKD-EPI)AfAm 19 (>60 ml/min/1.73 sqM) Est GFR (CKD-EPI)NonAf 16 (>60 ml/min/1.73 sqM) Glucose 88 (74-99) mg/dL Plasma Lactic Acid Gilberto (0.7-2.0) mmol/L Calcium 8.2 L (8.4-10.2) mg/dL Magnesium 1.7 (1.6-2.3) mg/dL Total Bilirubin 0.5 (0.2-1.3) mg/dL AST 36 (14-36) U/L ALT 21 (4-34) U/L Alkaline Phosphatase 203 H (38-126) U/L Troponin I (0.000-0.034) ng/mL NT-Pro-B Natriuret Pep pg/mL Total Protein 4.9 L (6.3-8.2) g/dL Albumin 2.4 L (3.5-5.0) g/dL 04/07/21 04/07/21 04/07/21 Range/Units 09:54 09:54 09:54 WBC (3.8-10.6) k/uL RBC (3.80-5.40) m/uL Hgb (11.4-16.0) gm/dL Hct (34.0-46.0) % MCV (80.0-100.0) fL MCH (25.0-35.0) pg MCHC (31.0-37.0) g/dL RDW (11.5-15.5) % Plt Count (150-450) k/uL MPV Neutrophils % % Lymphocytes % % Monocytes % % Eosinophils % % Basophils % % Neutrophils # (1.3-7.7) k/uL Lymphocytes # (1.0-4.8) k/uL Monocytes # (0-1.0) k/uL Eosinophils # (0-0.7) k/uL Basophils # (0-0.2) k/uL Manual Slide Review Macrocytosis PT (9.0-12.0) sec INR (<1.2) APTT (22.0-30.0) sec Sodium (137-145) mmol/L Potassium (3.5-5.1) mmol/L Chloride (98-107) mmol/L Carbon Dioxide (22-30) mmol/L Anion Gap mmol/L BUN (7-17) mg/dL Creatinine (0.52-1.04) mg/dL Est GFR (CKD-EPI)AfAm (>60 ml/min/1.73 sqM) Est GFR (CKD-EPI)NonAf (>60 ml/min/1.73 sqM) Glucose (74-99) mg/dL Plasma Lactic Acid Gilberto 1.7 (0.7-2.0) mmol/L Calcium (8.4-10.2) mg/dL Magnesium (1.6-2.3) mg/dL Total Bilirubin (0.2-1.3) mg/dL AST (14-36) U/L ALT (4-34) U/L Alkaline Phosphatase (38-126) U/L Troponin I 0.019 (0.000-0.034) ng/mL NT-Pro-B Natriuret Pep 14670 pg/mL Total Protein (6.3-8.2) g/dL Albumin (3.5-5.0) g/dL Disposition Clinical Impression: Generalized weakness, Acute exacerbation of chronic obstructive pulmonary disease, Fluid overload Disposition: ADMITTED IP TO THIS HOSP Condition: Stable Is patient prescribed a controlled substance at d/c from ED?: No Referrals: Liza Vargas MD [Primary Care Provider] - 1-2 days Decision to Admit Reason: Admit from EC Decision Date: 04/07/21 Decision Time: 11:00
[2021-04-07 10:03] LABS: Basophils % (A) 0 %; Eosinophils # (A) 0.1 k/uL (0-0.7); Eosinophils % (A) 1 %; HCT 42.3 % (34.0-46.0); HGB 13.6 gm/dL (11.4-16.0); Lymphocytes # (A) 2.6 k/uL (1.0-4.8); Lymphocytes % (A) 32 %; MCH 36.4 pg (25.0-35.0); MCHC 32.3 g/dL (31.0-37.0); MCV 112.7 fL (80.0-100.0); Macrocytosis Marked; Mean Platelet Volume 8.2; Monocytes # (A) 0.4 k/uL (0-1.0); Monocytes % (A) 5 %; Neutrophils # (A) 4.8 k/uL (1.3-7.7); Neutrophils % (A) 59 %; Platelet Count 132 k/uL (150-450); RBC 3.75 m/uL (3.80-5.40); RDW 15.5 % (11.5-15.5); WBC 8.2 k/uL (3.8-10.6)
[2021-04-07 10:17] LABS: INR 1.6 (<1.2); Partial Thromboplastin Time 28.8 sec (22.0-30.0); Prothrombin Time 15.7 sec (9.0-12.0)
[2021-04-07 10:21] LABS: Potassium 3.5 mmol/L (3.5-5.1)
[2021-04-07 10:22] LABS: Albumin 2.4 g/dL (3.5-5.0); Calcium 8.2 mg/dL (8.4-10.2); Magnesium 1.7 mg/dL (1.6-2.3); Total Bilirubin 0.5 mg/dL (0.2-1.3); Total Protein 4.9 g/dL (6.3-8.2)
--- NOTE | 2021-04-07 10:38 | XR ---
EXAMINATION TYPE: XR chest 2V DATE OF EXAM: 04/07/2021 COMPARISON: 03/21/2021 INDICATION: Occultly breathing TECHNIQUE: Single frontal view of the chest is obtained. FINDINGS: The heart size is enlarged. The pulmonary vasculature is normal. Minimal left pleural effusion is present. Electronic device overlies the chest. IMPRESSION: 1. Minimal left pleural effusion.
[2021-04-07] MEDS ORDERED: IPRATROPIUM-ALBUTEROL 3 ML NEB INHALATION PRN (10:53)
[2021-04-07] MEDS ORDERED: predniSONE 20 MG TAB PO SCH (11:00)
[2021-04-07] MEDS: MIDODRINE 5 MG TAB PO SCH ×2 (11:10→16:32)
[2021-04-07] MEDS: IPRATROPIUM-ALBUTEROL 3 ML NEB INHALATION SCH ×3 (11:26→20:35)
[2021-04-07] MEDS ORDERED: CALCIUM CARBONATE 500 MG CHEWABLE PO PRN (11:52)
[2021-04-07] MEDS ORDERED: FAMOTIDINE 20 MG TAB PO PRN (11:52)
[2021-04-07 12:00] LABS: Glucose,Whole Blood 79 mg/dL (75-99)
--- NOTE | 2021-04-07 13:09 | P.HPIM ---
History of Present Illness H&P Date: 04/07/21 Chief Complaint: Shortness of breath This is a 85-year-old female with complex past medical history noted below significant for end-stage renal disease on hemodialysis presented to the emergency room with shortness of breath. Patient said that her symptoms started in the last 24 hours and is being getting progressively worse. Patient is a very poor historian and very hard of hearing. Her daughter at bedside told me that she patient had dialysis yesterday with approximately 1.5 L of fluid removal. She told me that typically patient get 2 or 2.5 L removed. Patient w as also complaining that her CPAP was not working last night. Her daughter said that patient did not want to keep the CPAP on. She presented to the emergency room with worsening shortness of breath. Patient denies fevers or chills. No cough or chest pain. Patient was evaluated in the ER and was found to have elevated BNP. Chest x-ray showed minimal left pleural effusion. Patient was noted to be hypotensive and was started on midodrine by ER physician. She is currently placed on observation for further management. Review of Systems Review of system: 14 points review of systems were obtained and were negative except to what were mentioned in the HPI. Past Medical History Past Medical History: Atrial Fibrillation, Heart Failure, CVA/TIA, Diabetes Mellitus, Dialysis, Deep Vein Thrombosis (DVT), GERD/Reflux, Hyperlipidemia, Hypertension, Myocardial Infarction ([place]), Osteoarthritis (OA), Pulmonary Embolus (PE), Renal Disease, Rheumatoid Arthritis (RA), Sleep Apnea/CPAP/BIPAP, Thyroid Disorder Additional Past Medical History / Comment(s): on 02/06/20 with UTI/ESBL/bacteremia. Other hx: IDDM type II, diabetic neuropathy bilateral hands/feet, ESRD with hemodialysis, recurrent UTIs, pt was told she had a past [place] d/t EKG, palpitations, SSS with pacer, HARRIS with Cpap, chronic back and bila teral knee pain, hypothyroid. bilat carotid artery occlusions and a stroke she was unaware of Last Myocardial Infarction Date:: unknown History of Any Multi-Drug Resistant Organisms: ESBL, MRSA, VRE Date of last positivie culture/infection: 02/01/21 VRE & MRSA at [facility] MDRO Source:: URINE-VRE & MRSA Past Surgical History: Bladder Surgery, Hysterectomy, Pacemaker Additional Past Surgical History / Comment(s): 02/01/20 R upper arm fistula repositioned, R chest boone cath, rectocele, cystocele, hemorrhoidectomy, bilateral leg vein strippings, bilateral cataract removal, Picc lines, bladder biopsy Past Anesthesia/Blood Transfusion Reactions: No Reported Reaction Type of Cardiac Device: Permanent Pacemaker Device Placement Date:: 01/2017 Past Psychological History: No Psychological Hx Reported Additional Psychological History / Comment(s): Pt resides in her own home. Her vicky and son-in-law are temporarily staying with her to help out. She has a CPap, rolling walker, cane, life alert. 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 She recieves meals on wheels. Pt currently receiving home care thru [facility] Smoking Status: Never smoker Past Alcohol Use History: None Reported Past Drug Use History: None Reported - Past Family History Father Family Medical History: AFIB, AICD/Pacemaker, Congestive Heart Failure (CHF), Coronary Artery Disease (CAD), Diabetes Mellitus, Dialysis, Deep Vein Thrombosis (DVT), Hyperlipidemia, Hypertension, Myocardial Infarction ([place]), Rheumatoid Art hritis (RA) Mother Family Medical History: Unable to Obtain Sister(s) Family Medical History: Cancer Medications and Allergies Home Medications Medication Instructions Recorded Confirmed Type Levothyroxine Sodium [Synthroid] 100 mcg PO DAILY 01/31/14 04/07/21 History allopurinoL [Zyloprim] 100 mg PO AC-BRKFST 01/18/17 04/07/21 History atenoloL [Tenormin] 25 mg PO AC-SUPPER 10/10/17 04/07/21 History Pantoprazole [Protonix] 40 mg PO AC-BRKFST 08/16/19 04/07/21 History Insulin Lispro [humaLOG Kwikpen] See Protocol SQ AC-TID 02/04/20 04/07/21 History Torsemide [Demadex] 40 mg PO SUTUTHSA@0700 02/22/20 04/07/21 History Calcium Acetate [PhosLo] 1,334 mg PO AC-TID 05/25/20 04/07/21 History Mirtazapine [Remeron] 15 mg PO HS 05/25/20 04/07/21 History Flecainide [Tambocor] 50 mg PO AC-BID 07/26/20 04/07/21 History Atenolol [Tenormin] 50 mg PO SUTUTHSA@0700 01/10/21 04/07/21 History Calcium Carbonate [Tums] 1,000 mg PO QID PRN 01/10/21 04/07/21 History Cholecalciferol [Vitamin D3 (25 100 mcg PO AC-LUNCH 01/10/21 04/07/21 History Mcg = 1000 Iu)] Folic Acid-Vit B Complex-Vit C 1 cap PO AC-LUNCH 01/10/21 04/07/21 History [Nephrocaps] Midodrine [ProAmatine] 5 mg PO MOWEFR PRN 01/10/21 04/07/21 History Atorvastatin [Lipitor] 40 mg PO HS #30 tab 02/06/21 04/07/21 Rx Cyanocobalamin [Vitamin B-12] 500 mcg PO DAILY #30 tab 02/06/21 04/07/21 Rx Lidocaine-Prilocaine Cream [Emla 1 applic TOPICAL DAILY PRN 02/19/21 04/07/21 History Cream 2.5%/2.5%] Acetaminophen Tab [Tylenol Tab] 1,000 mg PO AC-BID 03/21/21 04/07/21 History Apixaban [Eliquis] 2.5 mg PO AC-BID 03/21/21 04/07/21 History Cephalexin [Keflex] 500 mg PO Q8HR #21 cap 03/21/21 04/07/21 Rx Diphenox-Atrop 2.5-0.025 mg 1 tab PO AC-BID 03/21/21 04/07/21 History [Lomotil] Famotidine [Pepcid] 20 mg PO AC-TID PRN 03/21/21 04/07/21 History Imodium Multi-Symptom 2mg/125mg Cap 2 cap PO AC-BID 03/21/21 04/07/21 History Ondansetron HCl [Zofran] 4 mg PO Q8H PRN 03/21/21 04/07/21 History Torsemide [Demadex] 40 mg PO MOWEFR@1800 03/21/21 04/07/21 History Allergies Allergy/AdvReac Type Severity Reaction Status Date / Time amoxicillin Allergy Rash/Hives Verified 03/21/21 13:22 Penicillins Allergy Rash/Hives Verified 03/21/21 13:22 Sulfa (Sulfonamide Allergy Rash/Hives Verified 03/21/21 13:22 Antibiotics) meperidine HCl [From Demerol] AdvReac Nausea & Verified 03/21/21 13:22 Vomiting Physical Exam Vitals: Vital Signs Temp Pulse Pulse Resp BP BP Pulse Ox 04/07/21 11:52 98.1 F 71 18 112/56 94 L 04/07/21 11:10 82 16 91/71 97 04/07/21 10:30 80 16 98/83 04/07/21 10:18 75 04/07/21 10:00 72 17 115/37 97 04/07/21 09:30 72 16 125/55 100 04/07/21 09:26 100 04/07/21 09:16 98.3 F 77 18 125/55 98 Intake and Output 04/06/21 04/07/21 04/07/21 22:59 06:59 14:59 Other: Weight 87.09 kg General: The patient is awake and alert, in no distress Eye: there is normal conjunctiva bilaterally. Neck: The neck is supple, there is no JVD. Cardiovascular: Normal S1-S2, no S3-S4, no murmurs. Respiratory: Lungs clear to auscultation bilaterally Gastrointestinal: Abdomen is soft, nontender Musculoskeletal: There is no pedal edema. Neurological:. Speech is normal. Skin: Skin is warm and dry Results CBC & Chem 7: 04/07/21 09:30 04/07/21 09:54 Labs: Abnormal Lab Results - Last 24 Hours (Table) 04/07/21 04/07/21 04/07/21 Range/Units 09:30 09:54 09:54 RBC 3.75 L (3.80-5.40) m/uL MCV 112.7 H (80.0-100.0) fL MCH 36.4 H (25.0-35.0) pg Plt Count 132 L (150-450) k/uL Macrocytosis Marked A PT 15.7 H (9.0-12.0) sec INR 1.6 H (<1.2) Sodium 134 L (137-145) mmol/L Chloride 95 L (98-107) mmol/L Carbon Dioxide 33 H (22-30) mmol/L Creatinine 2.54 H (0.52-1.04) mg/dL Calcium 8.2 L (8.4-10.2) mg/dL Alkaline Phosphatase 203 H (38-126) U/L Total Protein 4.9 L (6.3-8.2) g/dL Albumin 2.4 L (3.5-5.0) g/dL Assessment and Plan Assessment: This is a 85-year-old female with very complex past medical history noted below who presented to the emergency room with worsening shortness of breath. She was evaluated in the ER and placed on observation for further management of her medical problems noted below. 1. Acute diastolic heart failure exacerbation, started on IV Lasix 40 mg every 8 hours. A repeat BMP within the next day or 2. Last echocardiogram showed preserved ejection fraction of 60-65%. 2. End-stage renal disease on hemodialysis, nephrology consulted. Patient may benefit from extra dialysis session tomorrow. 3. Chronic atrial fibrillation on anticoagulation with Eliquis. Atenolol was discontinued secondary to hypotension. We'll continue telemetry monitoring. Start metoprolol 12.5 mg twice daily. EKG in the ER showed paced rhythm 4. Essential hypertension, now with borderline low blood pressure. Patient was started on midodrine 5 mg twice daily. Home dose of atenolol was discontinued. We will continue to monitor closely. 5. Obstructive sleep apnea, encouraged to bring her CPAP machine from home to be used at night. 6. Type 2 diabetes, continue sliding scale insulin
[2021-04-07] MEDS: CHOLECALCIFEROL 25 MCG (1000 IU) TABLET PO SCH (13:25)
[2021-04-07] MEDS: CALCIUM ACETATE 667 MG TAB PO SCH ×2 (13:25→16:31)
[2021-04-07] MEDS: FUROSEMIDE 10 MG/ML 4 ML VIAL IV SCH ×2 (13:27→19:33)
[2021-04-07] MEDS: FOLIC ACID-VIT B COMPLEX-VIT C 1 CAP PO SCH (13:27)
[2021-04-07] MEDS: INSULIN ASPART (NovoLOG) 100 UNIT/ML VIAL SQ SCH ×3 (13:37→21:09)
[2021-04-07] MEDS: FLECAINIDE 50 MG TAB PO SCH (16:31)
[2021-04-07] MEDS: LOPERAMIDE 2 MG CAP PO SCH (16:31)
[2021-04-07] MEDS: DIPHENOX-ATROP 2.5-0.025 MG 1 EACH TAB PO SCH (16:32)
[2021-04-07] MEDS: APIXABAN 2.5 MG TABLET PO SCH (16:32)
[2021-04-07] MEDS: ACETAMINOPHEN TAB 500 MG TAB PO SCH (16:32)
[2021-04-07] MEDS: CEPHALEXIN 500 MG CAP PO SCH (16:32)
[2021-04-07 17:28] LABS: Glucose,Whole Blood 158 mg/dL (75-99)
[2021-04-07] MEDS: MIRTAZAPINE 15 MG TAB PO SCH (19:33)
[2021-04-07] MEDS: ATORVASTATIN 40 MG TAB PO SCH (19:35)
[2021-04-07] MEDS: METOPROLOL TARTRATE 12.5 MG TAB PO SCH (19:35)
[2021-04-07 20:17] LABS: Glucose,Whole Blood 170 mg/dL (75-99)
[2021-04-08] MEDS: CEPHALEXIN 500 MG CAP PO SCH ×3 (01:11→17:44)
[2021-04-08] MEDS: FUROSEMIDE 10 MG/ML 4 ML VIAL IV SCH ×4 (03:51→18:25)
[2021-04-08] MEDS: LEVOTHYROXINE 100 MCG TAB PO SCH (06:12)
[2021-04-08 07:05] LABS: Glucose,Whole Blood 78 mg/dL (75-99)
[2021-04-08] MEDS: APIXABAN 2.5 MG TABLET PO SCH ×2 (07:33→17:44)
[2021-04-08] MEDS: PANTOPRAZOLE 40 MG TABLET PO SCH (07:33)
[2021-04-08] MEDS: ACETAMINOPHEN TAB 500 MG TAB PO SCH ×2 (07:33→17:43)
[2021-04-08] MEDS: DIPHENOX-ATROP 2.5-0.025 MG 1 EACH TAB PO SCH ×2 (07:33→17:44)
[2021-04-08] MEDS: LOPERAMIDE 2 MG CAP PO SCH ×2 (07:34→17:43)
[2021-04-08] MEDS: FLECAINIDE 50 MG TAB PO SCH ×2 (07:34→17:44)
[2021-04-08] MEDS: CYANOCOBALAMIN 500 MCG TAB PO SCH (07:34)
[2021-04-08] MEDS: allopurinoL 100 MG TAB PO SCH (07:34)
[2021-04-08] MEDS: CALCIUM ACETATE 667 MG TAB PO SCH ×3 (07:34→17:42)
[2021-04-08] MEDS: INSULIN ASPART (NovoLOG) 100 UNIT/ML VIAL SQ SCH ×4 (07:35→20:40)
[2021-04-08] MEDS: METOPROLOL TARTRATE 12.5 MG TAB PO SCH ×2 (07:35→20:40)
[2021-04-08] MEDS: MIDODRINE 5 MG TAB PO SCH ×2 (07:36→17:43)
[2021-04-08] MEDS: IPRATROPIUM-ALBUTEROL 3 ML NEB INHALATION SCH ×4 (08:10→20:33)
[2021-04-08 11:49] LABS: Glucose,Whole Blood 102 mg/dL (75-99)
--- NOTE | 2021-04-08 12:05 | CONS ---
CONSULTATION REASON FOR CONSULT: End-stage renal disease. HISTORY OF PRESENT ILLNESS: The patient is an 85-year-old female with end-stage renal disease, on dialysis on a Friday, Friday, Friday schedule. She was admitted to the hospital with complaints of shortness of breath. The patient stated that she had only 1.7 L of fluid removed on Friday as her blood pressure was low. She subsequently became short of breath with no complaints of cough, fever, chills, nausea, vomiting or abdominal pain, and therefore came into the hospital. Chest x-ray did not show any significant pulmonary vascular congestion. Patient is advised that she will be dialyzed tomorrow. She currently does not have her hearing aid as it is gone for repair, but patient is able to communicate. PAST MEDICAL HISTORY: CVA, TIA type 2 diabetes, end-stage renal disease, DVT, hypertension, [place], rheumatoid arthritis, obstructive sleep apnea, hypothyroidism, PE, repeated urinary tract infections, neuropathy, CKD mineral bone disorder, anemia of chronic disease, TIA, osteoarthritis. PAST SURGICAL HISTORY: Hysterectomy, pacemaker placement, cystocele repair, hemorrhoidectomy, AV fistula, PermCath placement removal, cataract surgery, PICC lines, bladder biopsy, rectocele repair. SOCIAL HISTORY: Negative for smoking, drug abuse or alcohol abuse. MEDICATIONS: Medications prior to admission included Synthroid, Zyloprim, Tenormin, Protonix, insulin, Demadex, Remeron, PhosLo, Tambocor, Tenormin, Tums, vitamin D, vitamin C, midodrine, Tylenol, Eliquis, Keflex, Lomotil, Pepcid, Imodium p.r.n., Zofran, Demadex. ALLERGIES: Include AMOXICILLIN, PENICILLIN, SULFA, DEMEROL, which causes nausea, vomiting. Others cause rash and hives. REVIEW OF SYSTEMS: As per HPI. Other systems negative. EXAMINATION: Comfortable, awake, not in any acute distress. Alert, oriented x3. Blood pressure is 116/50, heart rate 70 per minute. She is afebrile. Examination of the heart S1, S2. Examination of lungs, decreased breath sounds at bases. Abdomen is soft, nontender. Examination of lower extremities chronic edema. SPORTS MEDICINE PHYSICIAN exam grossly intact. LAB: Show sodium 134, potassium 3.5, chloride 95, CO2 is 33, BUN 13, creatinine 2.5, hemoglobin previously 13.6 on April 07. ASSESSMENT: 1. End-stage renal disease, on hemodialysis Friday, Friday, Friday schedule. 2. Mild volume overload, although chest x-ray does not show significant pulmonary vascular congestion. We will plan for dialysis tomorrow with goal UF about 2-3 L as tolerated. 3. History of repeated urinary tract infections. 4. Chronic kidney disease, mineral bone disorder. 5. Type 2 diabetes with retinopathy. PLAN: Hemodialysis in a.m. UF goal about 2 -3 L as tolerated. Blood pressure is on the lower side. Chest x-ray did not show significant pulmonary vascular congestion. Therefore, I do not believe patient is significantly volume overloaded. Thank you for this consultation. We will continue to follow the patient with you during her hospitalization. MMODL / IJN: [id number] /
[2021-04-08] MEDS: CHOLECALCIFEROL 25 MCG (1000 IU) TABLET PO SCH (12:36)
[2021-04-08] MEDS: FOLIC ACID-VIT B COMPLEX-VIT C 1 CAP PO SCH (12:36)
--- NOTE | 2021-04-08 14:05 | P.PN ---
Subjective Progress Note Date: 04/08/21 Patient is feeling better today. Her shortness of breath improved. Objective - Vital Signs Vital signs: Vital Signs Temp 98.1 F 04/08/21 07:00 Pulse 78 04/08/21 11:46 Resp 18 04/08/21 07:00 BP 116/50 04/08/21 07:00 Pulse Ox 98 04/08/21 08:08 Intake & Output 04/07/21 04/08/21 04/08/21 18:59 06:59 18:59 Intake Total 180 Balance 180 Weight 87.09 kg 88.5 kg Intake: Oral 180 Other: Voiding Method Diaper Diaper Diaper External Catheter External Catheter # Voids 0 1 1 # Bowel Movements 1 - Exam General: The patient is awake and alert, in no distress Eye: there is normal conjunctiva bilaterally. Neck: The neck is supple, there is no JVD. Cardiovascular: Normal S1-S2, no S3-S4, no murmurs. Respiratory: Lungs clear to auscultation bilaterally Gastrointestinal: Abdomen is soft, nontender Musculoskeletal: There is no pedal edema. Neurological:. Speech is normal. Skin: Skin is warm and dry - Labs CBC & Chem 7: 04/07/21 09:30 04/07/21 09:54 Labs: Abnormal Lab Results - Last 24 Hours (Table) 04/07/21 04/07/21 04/08/21 Range/Units 17:27 20:16 11:47 POC Glucose (mg/dL) 158 H 170 H 102 H (75-99) mg/dL Assessment and Plan Assessment: This is a 85-year-old female with very complex past medical history noted below who presented to the emergency room with worsening shortness of breath. She was evaluated in the ER and placed on observation for further management of her medical problems noted below. 1. Acute diastolic heart failure exacerbation, started on IV Lasix 40 mg every 8 hours. repeat BNP within the next day or 2. Last echocardiogram showed preserved ejection fraction of 60-65%. 2. End-stage renal disease on hemodialysis, nephrology consulted. Plan for hemodialysis in the morning 3. Chronic atrial fibrillation on anticoagulation with Eliquis. Atenolol was discontinued secondary to hypotension. We'll continue telemetry monitoring. Start metoprolol 12.5 mg twice daily. EKG in the ER showed paced rhythm 4. Essential hypertension, now with borderline low blood pressure. Patient was started on midodrine 5 mg twice daily. Home dose of atenolol was discontinued. We will continue to monitor closely. 5. Obstructive sleep apnea, encouraged to bring her CPAP machine from home to be used at night. 6. Type 2 diabetes, continue sliding scale insulin
[2021-04-08 16:49] LABS: Glucose,Whole Blood 112 mg/dL (75-99)
[2021-04-08 20:35] LABS: Glucose,Whole Blood 160 mg/dL (75-99)
[2021-04-08] MEDS: ATORVASTATIN 40 MG TAB PO SCH (20:39)
[2021-04-08] MEDS: MIRTAZAPINE 15 MG TAB PO SCH (20:40)
[2021-04-09] MEDS: CEPHALEXIN 500 MG CAP PO SCH ×3 (00:06→17:06)
[2021-04-09] MEDS: FUROSEMIDE 10 MG/ML 4 ML VIAL IV SCH ×2 (03:43→12:59)
[2021-04-09] MEDS: LEVOTHYROXINE 100 MCG TAB PO SCH (05:30)
[2021-04-09 07:18] LABS: Glucose,Whole Blood 46 mg/dL (75-99)
[2021-04-09] MEDS: INSULIN ASPART (NovoLOG) 100 UNIT/ML VIAL SQ SCH ×2 (07:25→13:00)
[2021-04-09] MEDS: IPRATROPIUM-ALBUTEROL 3 ML NEB INHALATION SCH ×4 (07:30→19:34)
[2021-04-09 07:43] LABS: Glucose,Whole Blood 48 mg/dL (75-99)
[2021-04-09 08:06] LABS: Glucose,Whole Blood 63 mg/dL (75-99)
[2021-04-09] MEDS: ACETAMINOPHEN TAB 500 MG TAB PO SCH ×2 (08:07→17:06)
[2021-04-09] MEDS: CALCIUM ACETATE 667 MG TAB PO SCH ×3 (08:08→17:07)
[2021-04-09] MEDS: LOPERAMIDE 2 MG CAP PO SCH ×2 (08:08→17:07)
[2021-04-09] MEDS: CYANOCOBALAMIN 500 MCG TAB PO SCH (08:08)
[2021-04-09] MEDS: MIDODRINE 5 MG TAB PO SCH ×2 (08:08→17:07)
[2021-04-09] MEDS: PANTOPRAZOLE 40 MG TABLET PO SCH (08:08)
[2021-04-09] MEDS: allopurinoL 100 MG TAB PO SCH (08:08)
[2021-04-09] MEDS: FLECAINIDE 50 MG TAB PO SCH ×2 (08:08→17:07)
[2021-04-09] MEDS: APIXABAN 2.5 MG TABLET PO SCH ×2 (08:08→17:07)
[2021-04-09] MEDS: METOPROLOL TARTRATE 12.5 MG TAB PO SCH ×2 (08:09→20:56)
[2021-04-09] MEDS: DIPHENOX-ATROP 2.5-0.025 MG 1 EACH TAB PO SCH ×2 (08:09→17:07)
[2021-04-09 08:25] LABS: Glucose,Whole Blood 42 mg/dL (75-99)
[2021-04-09 08:27] LABS: Glucose,Whole Blood 40 mg/dL (75-99)
[2021-04-09 08:30] LABS: Glucose,Whole Blood 45 mg/dL (75-99)
[2021-04-09 08:54] LABS: Glucose,Whole Blood 74 mg/dL (75-99)
[2021-04-09 12:04] LABS: Glucose,Whole Blood 188 mg/dL (75-99)
[2021-04-09] MEDS: CHOLECALCIFEROL 25 MCG (1000 IU) TABLET PO SCH (12:59)
[2021-04-09] MEDS: FOLIC ACID-VIT B COMPLEX-VIT C 1 CAP PO SCH (13:00)
--- NOTE | 2021-04-09 15:40 | PN ---
PROGRESS NOTE Patient is seen for followup for end-stage renal disease. She was admitted to the hospital with shortness of breath. Chest x-ray did not show worsening CHF. The patient will be dialyzed today, goal UF of about 2 L. She is maintained on updraft treatments and currently doing better. PHYSICAL EXAMINATION: On examination today, blood pressure was 106/62, heart rate 86 per minute. Patient is afebrile. Examination of the heart S1, S2. Examination of the lungs, bilateral breath sounds are heard. Abdomen is soft, nontender. Examination of lower extremities shows edema 1+ bilaterally. COIL TIER exam grossly intact. LAB: Show sodium of 134, potassium 3.5, creatinine 2.54, hemoglobin 13.6 g/dL. ASSESSMENT: 1. End-stage renal disease, on hemodialysis on a Friday, Friday, Friday schedule. 2. Shortness of breath associated with possible underlying mild volume overload. Expect improvement post dialysis today. 3. Chronic kidney disease, mineral bone disorder. 4. Chronic atrial fibrillation maintained on anticoagulation. 5. Obstructive sleep apnea. PLAN: Hemodialysis today. Increase UF as tolerated. Weigh patient post dialysis and this will be used as her dry weight as outpatient. We will hold off on antihypertensive medications to avoid hypotension during dialysis. MMODL / IJN: [id number] /
--- NOTE | 2021-04-09 15:48 | P.PN ---
Subjective Progress Note Date: 04/09/21 Patient is doing well today. She denies any shortness of breath. She is scheduled for hemodialysis today. Objective - Vital Signs Vital signs: Vital Signs Temp 97.5 F L 04/09/21 15:00 Pulse 77 04/09/21 15:19 Resp 16 04/09/21 15:00 BP 112/55 04/09/21 15:00 Pulse Ox 90 L 04/09/21 15:00 Intake & Output 04/08/21 04/09/21 04/09/21 18:59 06:59 18:59 Intake Total 180 400 712 Output Total 400 Balance 180 400 312 Weight 84 kg Intake: Oral 180 400 712 Output: Urine 400 Other: Voiding Method Diaper Bedpan Bedpan External Catheter Diaper Diaper # Voids 1 2 1 # Bowel Movements 1 - Exam General: The patient is awake and alert, in no distress Eye: there is normal conjunctiva bilaterally. Neck: The neck is supple, there is no JVD. Cardiovascular: Normal S1-S2, no S3-S4, no murmurs. Respiratory: Lungs clear to auscultation bilaterally Gastrointestinal: Abdomen is soft, nontender Musculoskeletal: There is no pedal edema. Neurological:. Speech is normal. Skin: Skin is warm and dry - Labs CBC & Chem 7: 04/07/21 09:30 04/07/21 09:54 Labs: Abnormal Lab Results - Last 24 Hours (Table) 04/08/21 04/08/21 04/09/21 Range/Units 16:47 20:31 07:16 POC Glucose (mg/dL) 112 H 160 H 46 L (75-99) mg/dL 04/09/21 04/09/21 04/09/21 Range/Units 07:42 08:04 08:24 POC Glucose (mg/dL) 48 L 63 L 42 L (75-99) mg/dL 04/09/21 04/09/21 04/09/21 Range/Units 08:25 08:29 08:51 POC Glucose (mg/dL) 40 L 45 L 74 L (75-99) mg/dL 04/09/21 Range/Units 12:02 POC Glucose (mg/dL) 188 H (75-99) mg/dL Assessment and Plan Assessment: This is a 85-year-old female with very complex past medical history noted below who presented to the emergency room with worsening shortness of breath. She was evaluated in the ER and placed on observation for further management of her medical problems noted below. 1. Acute diastolic heart failure exacerbation, started on IV Lasix 40 mg every 8 hours. repeat BNP within the next day or 2. Last echocardiogram showed preserved ejection fraction of 60-65%. 2. End-stage renal disease on hemodialysis, nephrology consulted. Plan for hemodialysis today 3. Chronic atrial fibrillation on anticoagulation with Eliquis. Atenolol was discontinued secondary to hypotension. We'll continue telemetry monitoring. Start metoprolol 12.5 mg twice daily. EKG in the ER showed paced rhythm 4. Essential hypertension, now with borderline low blood pressure. Patient was started on midodrine 5 mg twice daily. Home dose of atenolol was discontinued. We will continue to monitor closely. 5. Obstructive sleep apnea, encouraged to bring her CPAP machine from home to be used at night. 6. Type 2 diabetes, continue sliding scale insulin Patient was seen and evaluated by PT/OT. She will qualify for subacute rehab. [facility].
[2021-04-09 17:17] LABS: Glucose,Whole Blood 94 mg/dL (75-99)
[2021-04-09 20:35] LABS: Glucose,Whole Blood 128 mg/dL (75-99)
[2021-04-09] MEDS: ATORVASTATIN 40 MG TAB PO SCH (20:56)
[2021-04-09] MEDS: MIRTAZAPINE 15 MG TAB PO SCH (20:56)
[2021-04-10] MEDS: LEVOTHYROXINE 100 MCG TAB PO SCH (05:51)
[2021-04-10] MEDS: IPRATROPIUM-ALBUTEROL 3 ML NEB INHALATION SCH ×3 (07:37→16:03)
[2021-04-10 07:41] LABS: Glucose,Whole Blood 54 mg/dL (75-99)
[2021-04-10 08:09] LABS: Glucose,Whole Blood 49 mg/dL (75-99)
[2021-04-10 08:09] LABS: Glucose,Whole Blood 46 mg/dL (75-99)
[2021-04-10] MEDS: ACETAMINOPHEN TAB 500 MG TAB PO SCH (08:24)
[2021-04-10] MEDS: METOPROLOL TARTRATE 12.5 MG TAB PO SCH (08:26)
[2021-04-10] MEDS: LOPERAMIDE 2 MG CAP PO SCH (08:26)
[2021-04-10] MEDS: CALCIUM ACETATE 667 MG TAB PO SCH ×2 (08:26→13:12)
[2021-04-10] MEDS: PANTOPRAZOLE 40 MG TABLET PO SCH (08:26)
[2021-04-10] MEDS: FLECAINIDE 50 MG TAB PO SCH (08:26)
[2021-04-10] MEDS: APIXABAN 2.5 MG TABLET PO SCH (08:26)
[2021-04-10] MEDS: DIPHENOX-ATROP 2.5-0.025 MG 1 EACH TAB PO SCH (08:26)
[2021-04-10] MEDS: CYANOCOBALAMIN 500 MCG TAB PO SCH (08:26)
[2021-04-10] MEDS: MIDODRINE 5 MG TAB PO SCH (08:26)
[2021-04-10] MEDS: allopurinoL 100 MG TAB PO SCH (08:26)
[2021-04-10 08:35] LABS: Glucose,Whole Blood 42 mg/dL (75-99)
[2021-04-10 08:49] LABS: Glucose,Whole Blood 42 mg/dL (75-99)
[2021-04-10 09:32] LABS: Glucose,Whole Blood 69 mg/dL (75-99)
[2021-04-10 11:48] LABS: Glucose,Whole Blood 96 mg/dL (75-99)
[2021-04-10] MEDS: CHOLECALCIFEROL 25 MCG (1000 IU) TABLET PO SCH (13:12)
[2021-04-10] MEDS: FOLIC ACID-VIT B COMPLEX-VIT C 1 CAP PO SCH (13:12)
--- NOTE | 2021-04-10 13:49 | P.DS ---
Providers Date of admission: 04/09/21 09:37 Expected date of discharge: 04/10/21 Attending physician: Denice Owen Consults: 04/07/21 10:53 Consult Physician Routine Consulting Provider: Sofia Child Consult Reason/Comments: ESRD Do you want consulting provider notified?: Yes Primary care physician: Liza Vargas MD Hospital Course: This is a 85-year-old female with very complex past medical history noted below who presented to the emergency room with worsening shortness of breath. She was evaluated in the ER and placed on observation for further management of her m edical problems noted below. 1. Acute diastolic heart failure exacerbation, started on IV Lasix 40 mg every 8 hours. Last echocardiogram showed preserved ejection fraction of 60-65%. 2. End-stage renal disease on hemodialysis, nephrology consulted. 3. Chronic atrial fibrillation on anticoagulation with Eliquis. Atenolol was discontinued secondary to hypotension. Started metoprolol 12.5 mg twice daily. EKG in the ER showed paced rhythm 4. Essential hypertension, now with borderline low blood pressure. Patient was started on midodrine 5 mg twice daily. Home dose of atenolol was discontinued. We will continue to monitor closely. 5. Obstructive sleep apnea, encouraged to bring her CPAP machine from home to be used at night. 6. Type 2 diabetes, with episode of hypoglycemia. Home dose of insulin was discontinued. Patient's overall condition improved significantly throughout her hospital stay. Her volume status improved with dialysis. She will continue dialysis as sche duled. Patient was also noted to have a poor appetite here in the hospital and was encouraged to eat frequent small meals. Her insulin was discontinued secondary to hypoglycemia. Patient was having blood glucose in the 50s and 60s that she was asymptomatic and it corrected quickly after drinking orange juice. Patient was seen and evaluated by PT/OT. She will qualify for subacute rehab. She will be discharged to [facility] Patient Condition at Discharge: Stable Plan - Discharge Summary Discharge Rx Participant: Yes New Discharge Prescriptions: New Metoprolol Tartrate [Lopressor] 12.5 mg PO BID tab Torsemide [Demadex] 40 mg PO DAILY #30 tablet Midodrine [ProAmatine] 5 mg PO AC-BID tab Continue Levothyroxine Sodium [Synthroid] 100 mcg PO DAILY allopurinoL [Zyloprim] 100 mg PO AC-BRKFST Pantoprazole [Protonix] 40 mg PO AC-BRKFST Calcium Acetate [PhosLo] 1,334 mg PO AC-TID Mirtazapine [Remeron] 15 mg PO HS Flecainide [Tambocor] 50 mg PO AC-BID Atorvastatin [Lipitor] 40 mg PO HS #30 tab Cyanocobalamin [Vitamin B-12] 500 mcg PO DAILY #30 tab Calcium Carbonate [Tums] 1,000 mg PO QID PRN PRN Reason: between meals and snacks Folic Acid-Vit B Complex-Vit C [Nephrocaps] 1 cap PO AC-LUNCH Cholecalciferol [Vitamin D3 (25 Mcg = 1000 Iu)] 100 mcg PO AC-LUNCH Lidocaine-Prilocaine Cream [Emla Cream 2.5%/2.5%] 1 applic TOPICAL DAILY PRN PRN Reason: avf access Apixaban [Eliquis] 2.5 mg PO AC-BID Diphenox-Atrop 2.5-0.025 mg [Lomotil] 1 tab PO AC-BID Famotidine [Pepcid] 20 mg PO AC-TID PRN PRN Reason: Heartburn Discontinued atenoloL [Tenormin] 25 mg PO AC-SUPPER Insulin Lispro [humaLOG Kwikpen] See Protocol SQ AC-TID Torsemide [Demadex] 40 mg PO SUTUTHSA@0700 Cephalexin [Keflex] 500 mg PO Q8HR #21 cap Torsemide [Demadex] 40 mg PO MOWEFR@1800 Midodrine [ProAmatine] 5 mg PO MOWEFR PRN PRN Reason: low heart rate Atenolol [Tenormin] 50 mg PO SUTUTHSA@0700 Imodium Multi-Symptom 2mg/125mg Cap 2 cap PO AC-BID Acetaminophen Tab [Tylenol Tab] 1,000 mg PO AC-BID Ondansetron HCl [Zofran] 4 mg PO Q8H PRN PRN Reason: Nausea And Vomiting Discharge Medication List Levothyroxine Sodium [Synthroid] 100 mcg PO DAILY 01/31/14 [History] allopurinoL [Zyloprim] 100 mg PO AC-BRKFST 01/18/17 [History] Pantoprazole [Protonix] 40 mg PO AC-BRKFST 08/16/19 [History] Calcium Acetate [PhosLo] 1,334 mg PO AC-TID 05/25/20 [History] Mirtazapine [Remeron] 15 mg PO HS 05/25/20 [History] Flecainide [Tambocor] 50 mg PO AC-BID 07/26/20 [History] Calcium Carbonate [Tums] 1,000 mg PO QID PRN 01/10/21 [History] Cholecalciferol [Vitamin D3 (25 Mcg = 1000 Iu)] 100 mcg PO AC-LUNCH 01/10/21 [History] Folic Acid-Vit B Complex-Vit C [Nephrocaps] 1 cap PO AC-LUNCH 01/10/21 [History] Atorvastatin [Lipitor] 40 mg PO HS #30 tab 02/06/21 [Rx] Cyanocobalamin [Vitamin B-12] 500 mcg PO DAILY #30 tab 02/06/21 [Rx] Lidocaine-Prilocaine Cream [Emla Cream 2.5%/2.5%] 1 applic TOPICAL DAILY PRN 02/19/21 [History] Apixaban [Eliquis] 2.5 mg PO AC-BID 03/21/21 [History] Diphenox-Atrop 2.5-0.025 mg [Lomotil] 1 tab PO AC-BID 03/21/21 [History] Famotidine [Pepcid] 20 mg PO AC-TID PRN 03/21/21 [History] Metoprolol Tartrate [Lopressor] 12.5 mg PO BID tab 04/10/21 [Rx] Midodrine [ProAmatine] 5 mg PO AC-BID tab 04/10/21 [Rx] Torsemide [Demadex] 40 mg PO DAILY #30 tablet 04/10/21 [Rx] Follow up Appointment(s)/Referral(s): Liza Vargas MD [Primary Care Provider] - 1-2 days Discharge Disposition: TRANSFER TO SNF/ECF
[2021-04-10 15:31] VITALS: BP 99/61; RESP 16; TEMP 97.7
[2021-04-10 16:16] VITALS: PULSE 73
--- NOTE | 2021-04-10 19:28 | PN ---
PROGRESS NOTE Patient is seen for followup for end-stage renal disease. She is currently comfortable. Patient states that her blood sugar had dropped this morning and she is trying to drink orange juice. She denied any chest pains or shortness of breath. PHYSICAL EXAMINATION: On examination today, blood pressure 99/61, heart rate 55 per minute. She is afebrile. Examination of the heart S1, S2. Examination of the lungs, bilateral breath sounds are heard. Abdomen is soft, nontender. Examination of lower extremities shows chronic skin changes. Trace edema noted. DIRECTOR BUSINESS MANAGEMENT exam grossly intact. LAB: Revealed serum glucose of 96. On 04/07 potassium was 3.5 mEq/L. ASSESSMENT: 1. End-stage renal disease, on hemodialysis on a Friday, Friday, Friday schedule. 2. Mild volume overload, currently improved. 3. Hypoglycemia, now improved with increased oral intake. 4. Chronic kidney disease mineral bone disorder. PLAN: Okay to discharge post dialysis today. Patient will be maintained on a Friday, Friday, Friday schedule post discharge. MMODL / IJN: [id number] /
== END 2021-04-10 16:30 | DRG 291 ==
LOC: EC 09:16 → 6NMEDSUR 10:53 → OBSVTOIN 04-09 09:37
PROVIDERS: ADMIT Internal Medicine; ATTEND Internal Medicine
PROC: 5A1D70Z Performance of Urinary Filtration, Intermittent, Less than 6 Hours Per Day (ICD-10-PCS; principal; 2021-04-08)
PROC: 5A1D70Z Performance of Urinary Filtration, Intermittent, Less than 6 Hours Per Day (ICD-10-PCS; 2021-04-09)
DX: I13.2 Hypertensive heart and chronic kidney disease with heart failure and with stage 5 chronic kidney disease, or end stage renal disease (principal); I50.33 Acute on chronic diastolic (congestive) heart failure; N18.6 End stage renal disease; I48.20 Chronic atrial fibrillation, unspecified; N39.0 Urinary tract infection, site not specified; R78.81 Bacteremia; J44.1 Chronic obstructive pulmonary disease with (acute) exacerbation; I95.9 Hypotension, unspecified; E11.22 Type 2 diabetes mellitus with diabetic chronic kidney disease; H91.90 Unspecified hearing loss, unspecified ear; Z99.2 Dependence on renal dialysis; M06.9 Rheumatoid arthritis, unspecified; E87.70 Fluid overload, unspecified; M89.9 Disorder of bone, unspecified; E11.42 Type 2 diabetes mellitus with diabetic polyneuropathy; D63.8 Anemia in other chronic diseases classified elsewhere; E03.9 Hypothyroidism, unspecified; R53.1 Weakness; E11.319 Type 2 diabetes mellitus with unspecified diabetic retinopathy without macular edema; G89.29 Other chronic pain; M54.9 Dorsalgia, unspecified; E11.649 Type 2 diabetes mellitus with hypoglycemia without coma; E78.5 Hyperlipidemia, unspecified; G47.33 Obstructive sleep apnea (adult) (pediatric); I25.2 Old myocardial infarction; Z79.01 Long term (current) use of anticoagulants; Z79.4 Long term (current) use of insulin; Z79.890 Hormone replacement therapy; Z79.899 Other long term (current) drug therapy; Z86.711 Personal history of pulmonary embolism; Z86.73 Personal history of transient ischemic attack (TIA), and cerebral infarction without residual deficits; Z87.440 Personal history of urinary (tract) infections; Z90.710 Acquired absence of both cervix and uterus; Z95.0 Presence of cardiac pacemaker; Z88.0 Allergy status to penicillin; Z88.1 Allergy status to other antibiotic agents; Z88.8 Allergy status to other drugs, medicaments and biological substances; Z87.19 Personal history of other diseases of the digestive system; Z98.49 Cataract extraction status, unspecified eye
CPT/HCPCS: 36415; 71046; 80053; 83605; 83735; 83880; 84484; 85025; 85610; 85730; 90935; 93005; 94640; 94760; 99285

== ENCOUNTER 2021-06-19 09:24 | Observation (INO) | payer MEDICARE ==
--- NOTE | 2021-06-19 09:48 | ED ---
General Adult HPI - General Chief complaint: Extremity Problem,Nontraumatic Stated complaint: Low BP, pain from fistula Time Seen by Provider: 06/19/21 09:32 Source: patient Mode of arrival: wheelchair Limitations: physical limitation - History of Present Illness Initial comments: Dictation was produced using [employer] dictation software. please excuse any grammatical, word or spelling errors. Chief Complaint: 85-year-old female past medical history of end-stage renal disease presents to the emergency department for right upper extremity pain. History of Present Illness: 85-year-old female she has multiple comorbidities. Patient is accompanied by . Patient has history of end-stage renal disease. Her semiautomatic taper operator is Dr. Child. She gets dialysis Friday was a Friday. Patient had balloon angioplasty of her fistula for nonfunctioning right upper extremity fistula. Since then she's been having pain. Patient had completed dialysis yesterday and Friday. States that she has increasing swelling and pain to the right lower extremity. Denies any fevers. She took her blood pressure this morning was allegedly low with systolics in the 80s. Patient states she feels weak. Denies any pain anywhere else. No chest pain or shortness of breath. The ROS documented in this emergency department record has been reviewed and confirmed by me. Those systems with pertinent positive or negative responses have been documented in the HPI. All other systems are other negative and/or noncontributory. PHYSICAL EXAM: General Impression: Alert and oriented x3, not in acute distress HEENT: Normocephalic atraumatic, extra-ocular movements intact, pupils equal and reactive to light bilaterally, mucous membranes moist. Cardiovascular: Heart regular rate and rhythm Chest: Able to complete full sentences, no retractions, no tachypnea Abdomen: abdomen soft, non-tender, non-distended, no organomegaly Musculoskeletal: Pulses present and equal in all extremities, no peripheral edema Right upper extremity: Tender to palpation, mild 1+ pitting edema, palpable thrill to the fistula Motor: no focal deficits noted Neurological: CN II-XII grossly intact, no focal motor or sensory deficits noted Skin: Intact with no visualized rashes Psych: Normal affect and mood ED course: 85-year-old female presents to the emergency department for right upper extremity pain, low blood pressure measurement at home and generalized weakness. As upon arrival shows blood pressure of 97/43 cumbersome vital signs within acceptable limits. Patient's medications are reviewed. EKG interpretation: Ventricular rate 70, paced rhythm,. Interval 174, QRS 20, QTC 568.. No DE prolongation, no QTC prolongation, no ST or T-wave changes noted. EKG compared to 04/07/2021 showing no changes. Overall, this EKG is unremarkable Laboratory evaluation obtained. CBC, metabolic panel within acceptable limits. 4 Plex viral PCR is negative. Patient reevaluated with improvement of blood pressure after IV fluid bolus. Family reports that patient is too weak to come home. She lives at home with her family member who has a bad back. They're requesting hospital admission to hopefully be transferred to rehab facility versus detention. Discussed with sound Physician. Patient Will Be Admitted. - Related Data Home Medications Medication Instructions Recorded Confirmed Levothyroxine Sodium [Synthroid] 100 mcg PO DAILY 01/31/14 06/19/21 allopurinoL [Zyloprim] 100 mg PO AC-BRKFST 01/18/17 06/19/21 Pantoprazole [Protonix] 40 mg PO AC-BRKFST 08/16/19 06/19/21 Calcium Acetate [PhosLo] 1,334 mg PO AC-TID 05/25/20 06/19/21 Mirtazapine [Remeron] 15 mg PO HS 05/25/20 06/19/21 Flecainide [Tambocor] 50 mg PO AC-BID 07/26/20 06/19/21 Calcium Carbonate [Tums] 1,000 mg PO QID PRN 01/10/21 06/19/21 Cholecalciferol [Vitamin D3 (25 100 mcg PO AC-LUNCH 01/10/21 06/19/21 Mcg = 1000 Iu)] Folic Acid-Vit B Complex-Vit C 1 cap PO AC-LUNCH 01/10/21 06/19/21 [Nephrocaps] Lidocaine-Prilocaine Cream [Emla 1 applic TOPICAL DAILY PRN 02/19/21 06/19/21 Cream 2.5%/2.5%] Apixaban [Eliquis] 2.5 mg PO AC-BID 03/21/21 06/19/21 Diphenox-Atrop 2.5-0.025 mg 1 tab PO AC-BID 03/21/21 06/19/21 [Lomotil] Famotidine [Pepcid] 20 mg PO AC-TID PRN 03/21/21 06/19/21 Previous Rx's Medication Instructions Recorded Atorvastatin [Lipitor] 40 mg PO HS #30 tab 02/06/21 Cyanocobalamin [Vitamin B-12] 500 mcg PO DAILY #30 tab 02/06/21 Metoprolol Tartrate [Lopressor] 12.5 mg PO BID tab 04/10/21 Midodrine [ProAmatine] 5 mg PO AC-BID tab 04/10/21 Torsemide [Demadex] 40 mg PO DAILY #30 tablet 04/10/21 Allergies Allergy/AdvReac Type Severity Reaction Status Date / Time amoxicillin Allergy Rash/Hives Verified 06/19/21 10:55 Penicillins Allergy Rash/Hives Verified 06/19/21 10:55 Sulfa (Sulfonamide Allergy Rash/Hives Verified 06/19/21 10:55 Antibiotics) meperidine HCl [From Demerol] AdvReac Nausea & Verified 06/19/21 10:55 Vomiting Review of Systems ROS Statement: Those systems with pertinent positive or pertinent negative responses have been documented in the HPI. ROS Other: All systems not noted in ROS Statement are negative. Past Medical History Past Medical History: Atrial Fibrillation, Heart Failure, CVA/TIA, Diabetes Mellitus, Dialysis, Deep Vein Thrombosis (DVT), GERD/Reflux, Hyperlipidemia, Hypertension, Myocardial Infarction (CA), Osteoarthritis (OA), Pulmonary Embolus (PE), Renal Disease, Rheumatoid Arthritis (RA), Sleep Apnea/CPAP/BIPAP, Thyroid Disorder Additional Past Medical History / Comment(s): on 02/06/20 with UTI/ESBL/ bacteremia. Other hx: IDDM type II, diabetic neuropathy bilateral hands/feet, ESRD with hemodialysis, recurrent UTIs, pt was told she had a past CA d/t EKG, palpitations, SSS with pacer, HARRIS with Cpap, chronic back and bilateral knee pain, hypothyroid. bilat carotid artery occlusions and a stroke she was unaware of Last Myocardial Infarction Date:: unknown History of Any Multi-Drug Resistant Organisms: ESBL, MRSA, VRE Date of last positivie culture/infection: 02/01/21 VRE & MRSA at [facility] MDRO Source:: URINE-VRE & MRSA Past Surgical History: Bladder Surgery, Hysterectomy, Pacemaker Additional Past Surgical History / Comment(s): 02/01/20 R upper arm fistula repositioned, R chest boone cath, rectocele, cystocele, hemorrhoidectomy, bilateral leg vein strippings, bilateral cataract removal, Picc lines, bladder biopsy Past Anesthesia/Blood Transfusion Reactions: No Reported Reaction Type of Cardiac Device: Permanent Pacemaker Device Placement Date:: 01/2017 Past Psychological History: No Psychological Hx Reported Smoking Status: Never smoker Past Alcohol Use History: None Reported Past Drug Use History: None Reported - Past Family History Father Family Medical History: AFIB, AICD/Pacemaker, Congestive Heart Failure (CHF), Coronary Artery Disease (CAD), Diabetes Mellitus, Dialysis, Deep Vein Thrombosis (DVT), Hyperlipidemia, Hypertension, Myocardial Infarction (CA), Rheumatoid Art hritis (RA) Mother Family Medical History: Unable to Obtain Sister(s) Family Medical History: Cancer General Exam Limitations: physical limitation Course Vital Signs 06/19/21 06/19/21 06/19/21 09:27 09:49 10:43 Temperature 97.6 F Pulse Rate 72 71 70 Respiratory 16 18 16 Rate Blood Pressure 97/43 88/49 107/49 O2 Sat by Pulse 97 95 95 Oximetry 06/19/21 12:15 Temperature Pulse Rate 92 Respiratory 18 Rate Blood Pressure 123/55 O2 Sat by Pulse Oximetry Medical Decision Making - Lab Data Result diagrams: 06/19/21 09:42 06/19/21 09:42 Lab Results 06/19/21 06/19/21 06/19/21 Range/Units 09:42 09:42 09:49 WBC 8.8 (3.8-10.6) k/uL RBC 2.96 L (3.80-5.40) m/uL Hgb 11.1 L (11.4-16.0) gm/dL Hct 33.8 L (34.0-46.0) % MCV 114.0 H (80.0-100.0) fL MCH 37.6 H (25.0-35.0) pg MCHC 33.0 (31.0-37.0) g/dL RDW 15.4 (11.5-15.5) % Plt Count 136 L (150-450) k/uL MPV 8.7 Neutrophils % 77 % Lymphocytes % 15 % Monocytes % 6 % Eosinophils % 1 % Basophils % 0 % Neutrophils # 6.8 (1.3-7.7) k/uL Lymphocytes # 1.3 (1.0-4.8) k/uL Monocytes # 0.5 (0-1.0) k/uL Eosinophils # 0.0 (0-0.7) k/uL Basophils # 0.0 (0-0.2) k/uL Manual Slide Review Performed Macrocytosis Marked A Sodium 134 L (137-145) mmol/L Potassium 3.8 (3.5-5.1) mmol/L Chloride 95 L (98-107) mmol/L Carbon Dioxide 31 H (22-30) mmol/L Anion Gap 8 mmol/L BUN 21 H (7-17) mg/dL Creatinine 2.32 H (0.52-1.04) mg/dL Est GFR (CKD-EPI)AfAm 21 (>60 ml/min/1.73 sqM) Est GFR (CKD-EPI)NonAf 18 (>60 ml/min/1.73 sqM) Glucose 184 H (74-99) mg/dL Calcium 8.0 L (8.4-10.2) mg/dL Magnesium 1.6 (1.6-2.3) mg/dL Influenza Type A (PCR) Not Detected (Not Detectd) Influenza Type B (PCR) Not Detected (Not Detectd) RSV (PCR) Not Detected (Not Detectd) SARS-CoV-2 (PCR) Not Detected (Not Detectd) Disposition Clinical Impression: Hypotension Disposition: ADMITTED IP TO THIS HOSP Condition: Fair Referrals: Liza Vargas MD [Primary Care Provider] - 1-2 days
[2021-06-19] MEDS ORDERED: SODIUM CHLORIDE 0.9% 1,000 ML IV STA (09:52)
[2021-06-19 09:54] LABS: Basophils % (A) 0 %; Eosinophils % (A) 1 %; HCT 33.8 % (34.0-46.0); HGB 11.1 gm/dL (11.4-16.0); Lymphocytes # (A) 1.3 k/uL (1.0-4.8); Lymphocytes % (A) 15 %; MCH 37.6 pg (25.0-35.0); Macrocytosis Marked; Mean Platelet Volume 8.7; Monocytes # (A) 0.5 k/uL (0-1.0); Monocytes % (A) 6 %; Neutrophils # (A) 6.8 k/uL (1.3-7.7); Neutrophils % (A) 77 %; Platelet Count 136 k/uL (150-450); RBC 2.96 m/uL (3.80-5.40); RDW 15.4 % (11.5-15.5); WBC 8.8 k/uL (3.8-10.6)
[2021-06-19 10:15] LABS: Magnesium 1.6 mg/dL (1.6-2.3); Potassium 3.8 mmol/L (3.5-5.1)
--- NOTE | 2021-06-19 11:13 | US ---
EXAMINATION TYPE: US venous doppler duplex UE RT DATE OF EXAM: 06/19/2021 COMPARISON: NONE CLINICAL HISTORY: 85-year-old female right arm pain and swelling , s/p fistula intervention. SIDE PERFORMED: Right Arm TECHNIQUE: Grayscale, color doppler, spectral doppler imaging performed of the deep veins of the upp er extremities. FINDINGS: There is normal flow, compressibility and vascular waveforms. Right Arm: Negative for DVT Brass Bobbin Winder notes: Fistula/graft appears patent. IMPRESSION: No evidence for DVT within the right upper extremity. The fistula/graft also appears patent by color flow.
[2021-06-19] MEDS ORDERED: NALOXONE 0.4 MG/ML 1 ML VIAL IV PRN (12:17)
--- NOTE | 2021-06-19 12:30 | P.HPIM ---
History of Present Illness H&P Date: 06/19/21 Chief Complaint: Lethargy This is an 85-year-old white female with history of end-stage renal disease on hemodialysis underwent fistulogram yesterday and plan. Patient has been feeling weak fatigue and tired. She denies chest pain or abdominal pain. She denies shortness of breath. She denies subjective fever or chills. Family at bedside. There is no dizziness or loss of consciousness. Review of Systems 10 systems reviewed, pertinent positive and negative findings as in HPI. No chest pain no abdominal pain Past Medical History Past Medical History: Atrial Fibrillation, Heart Failure, CVA/TIA, Diabetes Mellitus, Dialysis, Deep Vein Thrombosis (DVT), GERD/Reflux, Hyperlipidemia, Hypertension, Myocardial Infarction (IL), Osteoarthritis (OA), Pulmonary Embolus (PE), Renal Disease, Rheumatoid Arthritis (RA), Sleep Apnea/CPAP/BIPAP, Thyroid Disorder Additional Past Medical History / Comment(s): on 02/06/20 with UTI/ESBL/bacteremia. Other hx: IDDM type II, diabetic neuropathy bilateral hands/feet, ESRD with hemodialysis, recurrent UTIs, pt was told she had a past IL d/t EKG, palpitations, SSS with pacer, HARRIS with Cpap, chronic back and bilateral knee pain, hypothyroid. bilat carotid artery occlusions and a stroke she was unaware of Last Myocardial Infarction Date:: unknown History of Any Multi-Drug Resistant Organisms: ESBL, MRSA, VRE Date of last positivie culture/infection: 02/01/21 VRE & MRSA at [facility] MDRO Source:: URINE-VRE & MRSA Past Surgical History: Bladder Surgery, Hysterectomy, Pacemaker Additional Past Surgical History / Comment(s): 02/01/20 R upper arm fistula repositioned, R chest boone cath, rectocele, cystocele, hemorrhoidectomy, bilateral leg vein strippings, bilateral cataract removal, Picc lines, bladder biopsy Past Anesthesia/Blood Transfusion Reactions: No Reported Reaction Type of Cardiac Device: Permanent Pacemaker Device Placement Date:: 01/2017 Past Psychological History: No Psychological Hx Reported Smoking Status: Never smoker Past Alcohol Use History: None Reported Past Drug Use History: None Reported - Past Family History Father Family Medical History: AFIB, AICD/Pacemaker, Congestive Heart Failure (CHF), Coronary Artery Disease (CAD), Diabetes Mellitus, Dialysis, Deep Vein Thrombosis (DVT), Hyperlipidemia, Hypertension, Myocardial Infarction (IL), Rheumatoid Arthritis (RA) Mother Family Medical History: Unable to Obtain Sister(s) Family Medical History: Cancer Medications and Allergies Home Medications Medication Instructions Recorded Confirmed Type Levothyroxine Sodium [Synthroid] 100 mcg PO DAILY 01/31/14 06/19/21 History allopurinoL [Zyloprim] 100 mg PO AC-BRKFST 01/18/17 06/19/21 History Pantoprazole [Protonix] 40 mg PO AC-BRKFST 08/16/19 06/19/21 History Calcium Acetate [PhosLo] 1,334 mg PO AC-TID 05/25/20 06/19/21 History Mirtazapine [Remeron] 15 mg PO HS 05/25/20 06/19/21 History Flecainide [Tambocor] 50 mg PO AC-BID 07/26/20 06/19/21 History Calcium Carbonate [Tums] 1,000 mg PO QID PRN 01/10/21 06/19/21 History Cholecalciferol [Vitamin D3 (25 100 mcg PO AC-LUNCH 01/10/21 06/19/21 History Mcg = 1000 Iu)] Folic Acid-Vit B Complex-Vit C 1 cap PO AC-LUNCH 01/10/21 06/19/21 History [Nephrocaps] Atorvastatin [Lipitor] 40 mg PO HS #30 tab 02/06/21 06/19/21 Rx Cyanocobalamin [Vitamin B-12] 500 mcg PO DAILY #30 tab 02/06/21 06/19/21 Rx Lidocaine-Prilocaine Cream [Emla 1 applic TOPICAL DAILY PRN 02/19/21 06/19/21 History Cream 2.5%/2.5%] Apixaban [Eliquis] 2.5 mg PO AC-BID 03/21/21 06/19/21 History Diphenox-Atrop 2.5-0.025 mg 1 tab PO AC-BID 03/21/21 06/19/21 History [Lomotil] Famotidine [Pepcid] 20 mg PO AC-TID PRN 03/21/21 06/19/21 History Metoprolol Tartrate [Lopressor] 12.5 mg PO BID tab 04/10/21 06/19/21 Rx Midodrine [ProAmatine] 5 mg PO AC-BID tab 04/10/21 06/19/21 Rx Torsemide [Demadex] 40 mg PO DAILY #30 tablet 04/10/21 06/19/21 Rx Allergies Allergy/AdvReac Type Severity Reaction Status Date / Time amoxicillin Allergy Rash/Hives Verified 06/19/21 10:55 Penicillins Allergy Rash/Hives Verified 06/19/21 10:55 Sulfa (Sulfonamide Allergy Rash/Hives Verified 06/19/21 10:55 Antibiotics) meperidine HCl [From Demerol] AdvReac Nausea & Verified 06/19/21 10:55 Vomiting Physical Exam Vitals: Vital Signs Temp Pulse Resp BP Pulse Ox 06/19/21 12:15 92 18 123/55 06/19/21 10:43 70 16 107/49 95 06/19/21 09:49 71 18 88/49 95 06/19/21 09:27 97.6 F 72 16 97/43 97 Intake and Output 06/18/21 06/19/21 06/19/21 22:59 06:59 14:59 Other: Weight 83.007 kg Constitutional: No acute distress, conversant, pleasant Eyes: Anicteric sclerae, moist conjunctiva, no lid-lag, PERRLA ENMT: NC/AT,Oropharynx clear, no erythema, exudates Neck:Supple, FROM, no masses, or JVD, No carotid bruits; No thyromegaly Lungs: Clear to auscultation, Clear to percussion, Normal respiratory effort, no accessory muscle use Cardiovascular: Heart regular in rate and rhythm, No murmurs, gallops, or rubs 1+ bilateral peripheral edema Abdominal: Soft Nontender, nom distended, no guarding, no rebound or rigidity, Normoactive bowel sounds Skin: Normal temperature, tone, texture, turgor, No induration No subcutaneous nodules, No rash, lesions, No ulcers Extremities:No digital cyanosis No clubbing, Pedal pulses intact and symmetri agusto Radial pulses intact and symmetrical Normal gait and station, Psychiatric: Alert and oriented to person, place and time, Appropriate affect Intact judgement Neuro: Muscles Strength 5/5 in all 4 extremities, Sensation to light touch grossly present throughout, Cranial nerves II-XII grossly intact. No focal sensory deficits Results CBC & Chem 7: 06/19/21 09:42 06/19/21 09:42 Labs: Abnormal Lab Results - Last 24 Hours (Table) 06/19/21 06/19/21 Range/Units 09:42 09:42 RBC 2.96 L (3.80-5.40) m/uL Hgb 11.1 L (11.4-16.0) gm/dL Hct 33.8 L (34.0-46.0) % MCV 114.0 H (80.0-100.0) fL MCH 37.6 H (25.0-35.0) pg Plt Count 136 L (150-450) k/uL Macrocytosis Marked A Sodium 134 L (137-145) mmol/L Chloride 95 L (98-107) mmol/L Carbon Dioxide 31 H (22-30) mmol/L BUN 21 H (7-17) mg/dL Creatinine 2.32 H (0.52-1.04) mg/dL Glucose 184 H (74-99) mg/dL Calcium 8.0 L (8.4-10.2) mg/dL Assessment and Plan Plan: 1. Lethargy and weakness: Multifactorial, consult PT/OT 2. End-stage renal disease secondary to hypertension and diabetes on hemodialysis: Continue hemodialysis per schedule, consult nephrology. 3. Hypothyroidism: Continue Synthroid 4. Chronic atrial fibrillation: Continue flecainide and oral anticoagulation 5. 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 Congestive heart failure, chronic unspecified type: Continue fluid manage ment with renal replacement therapy. 7. History of DVT: On Eliquis 8. Gout without acute attack: Continue allopurinol 9. GERD without esophagitis: Continue PPI 10. Hyperlipidemia: Continue statin DVT prophylaxis:Eliquis Disposition: Likely needs rehab placement. Treatment plan discussed with the patient and family at bedside
[2021-06-19] MEDS ORDERED: FAMOTIDINE 20 MG TAB PO PRN (12:46)
[2021-06-19] MEDS ORDERED: CALCIUM CARBONATE 500 MG CHEWABLE PO PRN (12:46)
--- NOTE | 2021-06-19 14:28 | CDI ---
Documentation Clarification Form Date: 06/19/2021 02:05:00 PM From: Dee Bryan RN, CCDS Admit Date: 06/19/2021 12:17:00 PM Patient Name: Yamilet Lopez Visit Number: [id number] ATTENTION: The Clinical Documentation Specialists (CDI) and [facility] Coding Staff appreciate your assistance in clarifying documentation. Please respond to the clarification below the line at the bottom and electronically sign. The CDI & [facility] Coding staff will review the response and follow-up if needed. Please note: Queries are made part of the Legal Health Record. If you have any questions, please contact the author of this message via ITS. Dr. Danika Pereira Your patient has the documented diagnosis of unspecified CHF in the 06/19 H&P. Additional information regarding the type & acuity of CHF is requested. History/Risk Factors: A Fib, CHF, CVA, DM2, ESRD on HD, DVT, GERD, HLD, HTN, [place], OA, PE, RA, Sleep Apnea, Thyroid disorder, bilateral diabetic neuropathy, bilateral carotid occlusions Clinical Indicators: 06/19 H&P: " Congestive heart failure, chronic unspecified type: Continue fluid management with renal replacement therapy." VS/Pulse OX: BNP: not done 02/03/21 Echocardiogram Results: EF 55-60% Chest x ray: not done Treatment: IVF bolus 0.9% NS1L Demadex 40 mg po Daily In your professional opinion, can you please clarify the [acuity and type] of CHF if known? [ ] Chronic Systolic Heart Failure (reduced EF) [ x ] Chronic Diastolic Heart Failure (preserved EF) [ ] Chronic Systolic & Diastolic Heart Failure [ ] Other, please specify [ ] Unable to determine (Template Last Revised: October 2020) MTDD
[2021-06-19 17:09] LABS: Glucose,Whole Blood 102 mg/dL (75-99)
[2021-06-19] MEDS ORDERED: MIDODRINE 5 MG TAB PO SCH (17:30)
[2021-06-19] MEDS: CALCIUM ACETATE 667 MG TAB PO SCH (18:20)
[2021-06-19] MEDS: APIXABAN 2.5 MG TABLET PO SCH (18:21)
[2021-06-19] MEDS: FLECAINIDE 50 MG TAB PO SCH (18:27)
[2021-06-19 20:28] LABS: Glucose,Whole Blood 115 mg/dL (75-99)
[2021-06-19] MEDS ORDERED: METOPROLOL TARTRATE 12.5 MG TAB PO SCH (21:00)
[2021-06-19] MEDS: MIRTAZAPINE 15 MG TAB PO SCH (21:29)
[2021-06-19] MEDS: ATORVASTATIN 40 MG TAB PO SCH (21:29)
[2021-06-20] MEDS: LEVOTHYROXINE 100 MCG TAB PO SCH (06:03)
[2021-06-20 07:13] LABS: Glucose,Whole Blood 102 mg/dL (75-99)
[2021-06-20] MEDS: APIXABAN 2.5 MG TABLET PO SCH ×2 (08:59→17:15)
[2021-06-20] MEDS: allopurinoL 100 MG TAB PO SCH (08:59)
[2021-06-20] MEDS: CALCIUM ACETATE 667 MG TAB PO SCH ×3 (09:00→17:14)
[2021-06-20] MEDS: PANTOPRAZOLE 40 MG TABLET PO SCH (09:03)
[2021-06-20 09:21] LABS: ALT 18 U/L (4-34); AST 22 U/L (14-36); African American GFR (CKD) 15 (>60 ml/min/1.73 sqM); Albumin 2.2 g/dL (3.5-5.0); Albumin/Globulin Ratio 0.8; Alkaline Phosphatase 184 U/L (38-126); Anion Gap 6 mmol/L; Blood Urea Nitrogen 29 mg/dL (7-17); Calcium 8.1 mg/dL (8.4-10.2); Carbon Dioxide 31 mmol/L (22-30); Chloride 97 mmol/L (98-107); Globulin 2.6 g/dL; Glucose 138 mg/dL (74-99); Non-African American GFR(CKD) 13 (>60 ml/min/1.73 sqM); Potassium 3.7 mmol/L (3.5-5.1); Sodium 134 mmol/L (137-145); Total Bilirubin 0.5 mg/dL (0.2-1.3); Total Protein 4.8 g/dL (6.3-8.2)
[2021-06-20 09:22] LABS: Basophils % (A) 0 %; Eosinophils # (A) 0.1 k/uL (0-0.7); Eosinophils % (A) 2 %; HCT 31.6 % (34.0-46.0); Hypochromasia Slight; Lymphocytes # (A) 1.1 k/uL (1.0-4.8); Lymphocytes % (A) 22 %; MCH 36.5 pg (25.0-35.0); MCHC 31.7 g/dL (31.0-37.0); MCV 115.4 fL (80.0-100.0); Macrocytosis Marked; Mean Platelet Volume 8.4; Monocytes # (A) 0.3 k/uL (0-1.0); Monocytes % (A) 5 %; Neutrophils # (A) 3.6 k/uL (1.3-7.7); Neutrophils % (A) 69 %; Platelet Count 115 k/uL (150-450); RBC 2.74 m/uL (3.80-5.40); RDW 15.2 % (11.5-15.5); WBC 5.2 k/uL (3.8-10.6)
[2021-06-20] MEDS: FLECAINIDE 50 MG TAB PO SCH ×2 (10:20→17:15)
[2021-06-20] MEDS: TORSEMIDE 20 MG TAB PO SCH (10:20)
--- NOTE | 2021-06-20 11:12 | P.PN ---
Subjective Progress Note Date: 06/20/21 Feels okay, no chest pain no abdominal pain no nausea no vomiting. No chest pain no shortness of breath Objective - Vital Signs Vital signs: Vital Signs Temp 98.9 F 06/20/21 07:26 Pulse 70 06/20/21 07:26 Resp 16 06/20/21 07:26 BP 120/64 06/20/21 07:26 Pulse Ox 97 06/20/21 07:26 Intake & Output 06/19/21 06/20/21 06/20/21 18:59 06:59 18:59 Intake Total 240 Balance 240 Weight 83.007 kg Intake: Oral 240 Other: Voiding Method Incontinent External Catheter - Exam Constitutional: No acute distress, conversant, pleasant Eyes: Anicteric sclerae, moist conjunctiva, no lid-lag, PERRLA ENMT: NC/AT,Oropharynx clear, no erythema, exudates Neck:Supple, FROM, no masses, or JVD Lungs: Clear to auscultation, Clear to percussion, Normal respiratory effort, no accessory muscle use Cardiovascular: Heart regular in rate and rhythm, No murmurs, gallops, or rubs 1+ bilateral peripheral edema Abdominal: Soft Nontender, nom distended, no guarding, no rebound or rigidity, Normoactive bowel sounds Skin: Normal temperature, tone, texture, turgor, No induration No subcutaneous nodules, No rash, lesions, No ulcers Extremities:No digital cyanosis No clubbing, Pedal pulses intact and symmetrical Radial pulses intact and symmetrical Normal gait and station, Psychiatric: Alert and oriented to person, place and time, Appropriate affect Intact judgement Neuro: Muscles Strength 5/5 in all 4 extremities, Sensation to light touch grossly present throughout, Cranial nerves II-XII grossly intact. No focal sensory deficits - Labs CBC & Chem 7: 06/20/21 08:27 06/20/21 08:27 Labs: Abnormal Lab Results - Last 24 Hours (Table) 06/19/21 06/19/21 06/20/21 Range/Units 17:07 20:25 07:12 RBC (3.80-5.40) m/uL Hgb (11.4-16.0) gm/dL Hct (34.0-46.0) % MCV (80.0-100.0) fL MCH (25.0-35.0) pg Plt Count (150-450) k/uL Macrocytosis Sodium (137-145) mmol/L Chloride (98-107) mmol/L Carbon Dioxide (22-30) mmol/L BUN (7-17) mg/dL Creatinine (0.52-1.04) mg/dL Glucose (74-99) mg/dL POC Glucose (mg/dL) 102 H 115 H 102 H (75-99) mg/dL Calcium (8.4-10.2) mg/dL Alkaline Phosphatase (38-126) U/L Total Protein (6.3-8.2) g/dL Albumin (3.5-5.0) g/dL 06/20/21 06/20/21 Range/Units 08:27 08:27 RBC 2.74 L (3.80-5.40) m/uL Hgb 10.0 L (11.4-16.0) gm/dL Hct 31.6 L (34.0-46.0) % MCV 115.4 H (80.0-100.0) fL MCH 36.5 H (25.0-35.0) pg Plt Count 115 L (150-450) k/uL Macrocytosis Marked A Sodium 134 L (137-145) mmol/L Chloride 97 L (98-107) mmol/L Carbon Dioxide 31 H (22-30) mmol/L BUN 29 H (7-17) mg/dL Creatinine 3.17 H (0.52-1.04) mg/dL Glucose 138 H (74-99) mg/dL POC Glucose (mg/dL) (75-99) mg/dL Calcium 8.1 L (8.4-10.2) mg/dL Alkaline Phosphatase 184 H (38-126) U/L Total Protein 4.8 L (6.3-8.2) g/dL Albumin 2.2 L (3.5-5.0) g/dL Assessment and Plan Plan: 1. Lethargy and weakness: Multifactorial, consult PT/OT 2. End-stage renal disease secondary to hypertension and diabetes on hemodialysis: Continue hemodialysis per schedule, consult nephrology. 3. Hypothyroidism: Continue Synthroid 4. Chronic atrial fibrillation: Continue flecainide and oral anticoagulation 5. 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 Congestive heart failure, chronic diastolic : Continue fluid management with renal replacement therapy. EF 55-60% 7. History of DVT: On Eliquis 8. Gout without acute attack: Continue allopurinol 9. GERD without esophagitis: Continue PPI 10. Hyperlipidemia: Continue statin DVT prophylaxis:Eliquis Disposition: Likely needs rehab placement.
[2021-06-20 11:29] LABS: Glucose,Whole Blood 171 mg/dL (75-99)
[2021-06-20] MEDS: NYSTATIN 100,000 UNIT/GM POWD 15 GM TOPICAL SCH ×3 (11:58→20:30)
[2021-06-20] MEDS: CHOLECALCIFEROL 25 MCG (1000 IU) TABLET PO SCH (11:59)
[2021-06-20 16:30] LABS: Glucose,Whole Blood 80 mg/dL (75-99)
[2021-06-20 20:09] LABS: Glucose,Whole Blood 155 mg/dL (75-99)
[2021-06-20] MEDS: MIRTAZAPINE 15 MG TAB PO SCH (20:29)
[2021-06-20] MEDS: ATORVASTATIN 40 MG TAB PO SCH (20:29)
--- NOTE | 2021-06-20 20:36 | CONS ---
CONSULTATION REASON FOR CONSULT: End-stage renal disease. HISTORY OF PRESENT ILLNESS: Patient is an 85-year-old female with end-stage renal disease, on hemodialysis on a Friday, Friday, Friday schedule. Patient was admitted to the hospital with complaints of increased weakness. She denied any fevers or chills, nausea or vomiting. Patient does have a history of fluid abuse and volume overload as outpatient. There was no chest x-ray done today. Patient is scheduled for hemodialysis today. Her blood pressure usually remains on the lower side, and patient has used midodrine during treatment. She denies any cough or fever. PAST MEDICAL HISTORY: End-stage renal disease, anemia of chronic disease, CKD mineral bone disorder, history of atrial fibrillation, CHF, type 2 diabetes, history of [place], history of PE, rheumatoid arthritis, hypothyroidism, history of multiple urinary tract infections, neuropathy. PAST SURGICAL HISTORY: Hysterectomy, pacemaker placement, right arm AV fistula, previous catheter placements and removal, hemorrhoidectomy, bilateral vein stripping, cataract surgery, bladder biopsy, rectocele, cystocele repair. SOCIAL HISTORY: Negative for smoking, drug abuse or alcohol abuse. MEDICATIONS: Medications prior to admission included zyloprim, Synthroid, Protonix, PhosLo, Remeron, Tums, vitamin D, Lipitor, Eliquis, Lomotil, Pepcid, Lopressor, midodrine, Demadex. ALLERGIES: ALLERGIES include AMOXICILLIN, PENICILLIN, which causes rash and hives, including SULFA. DEMEROL caused nausea and vomiting. PHYSICAL EXAMINATION: Patient is currently comfortable, awake. She is in tears, as she does not want her records to be sent to her daughter in [place]. No significant distress otherwise. Blood pressure this morning was 120/64, heart rate 70 per minute. She is afebrile. EXAMINATION OF THE HEART: S1 and S2. EXAMINATION OF LUNGS: Bilateral breath sounds are heard. Abdomen is soft, non-tender. Examination of lower extremities shows edema 1+ bilaterally. GREETING CARD WRITER EXAM: Grossly intact. LABS: Sodium 134, potassium 3.7, BUN 29, creatinine 3.1, hemoglobin 10.0. ASSESSMENT: 1. End-stage renal disease, on hemodialysis on a Friday, Friday, Friday schedule. Patient will be dialyzed today. 2. Weakness, currently being worked up, possible component of generalized debility. 3. Chronic kidney disease mineral bone disorder. 4. Mild volume overload. We will plan for about 2 L of ultrafiltration today. 5. Anemia of chronic disease. PLAN: Hemodialysis today. Continue phosphate binders. May continue with the diuretics as well and repeat labs in a.m. MMODL / IJN: [id number] /
[2021-06-21 04:28] LABS: Hepatitis B Surface AB- Quant 3.5 mIU/mL; Hepatitis B Surface Antibody Nonreactive (Nonreactive); Hepatitis B Surface Antigen Nonreactive (Nonreactive)
[2021-06-21] MEDS: LEVOTHYROXINE 100 MCG TAB PO SCH (05:42)
[2021-06-21] MEDS: APIXABAN 2.5 MG TABLET PO SCH ×2 (07:47→17:42)
[2021-06-21] MEDS: PANTOPRAZOLE 40 MG TABLET PO SCH (07:47)
[2021-06-21] MEDS: CALCIUM ACETATE 667 MG TAB PO SCH ×3 (07:48→17:42)
[2021-06-21] MEDS: FLECAINIDE 50 MG TAB PO SCH ×2 (07:48→17:42)
[2021-06-21] MEDS: allopurinoL 100 MG TAB PO SCH (07:48)
[2021-06-21] MEDS: NYSTATIN 100,000 UNIT/GM POWD 15 GM TOPICAL SCH ×3 (07:48→20:20)
[2021-06-21] MEDS: TORSEMIDE 20 MG TAB PO SCH (07:48)
[2021-06-21 07:49] LABS: Glucose,Whole Blood 88 mg/dL (75-99)
[2021-06-21 09:53] LABS: Basophils # (A) 0.02 X 10*3/uL (0.00-0.10); Basophils % (A) 0.4 %; Eosinophils # (A) 0.11 X 10*3/uL (0.04-0.35); Eosinophils % (A) 2.1 %; HCT 31.9 % (37.2-46.3); HGB 9.9 g/dL (12.0-15.0); Lymphocytes # (A) 1.67 X 10*3/uL (0.90-5.00); Lymphocytes % (A) 31.9 %; Mean Platelet Volume 10.6 fL (9.5-12.2); Monocytes # (A) 0.58 X 10*3/uL (0.20-1.00); Monocytes % (A) 11.1 %; Neutrophils # (A) 2.82 X 10*3/uL (1.80-7.70); Neutrophils % (A) 53.9 %; Platelet Count 129 X 10*3/uL (140-440); RBC 2.75 X 10*6/uL (4.10-5.20); RDW 15.9 % (11.5-14.5); WBC 5.23 X 10*3/uL (4.50-10.00)
[2021-06-21] MEDS: CHOLECALCIFEROL 25 MCG (1000 IU) TABLET PO SCH (11:54)
[2021-06-21 12:07] LABS: Glucose,Whole Blood 145 mg/dL (75-99)
[2021-06-21 12:57] VITALS: BMI 29.5
[2021-06-21 13:24] LABS: Hepatitis B Virus DNA Not detected (Not detected); Hepatitis B Virus DNA, Quant <10 IU/mL (<10); Log HBV IU/mL <1.00 (<1.00)
[2021-06-21 16:00] LABS: Albumin 2.3 g/dL (3.8-4.9); Albumin/Globulin Ratio 1.06 (1.60-3.17); Anion Gap 11.8 mmol/L (4.00-12.00); BUN/Creat Ratio 7.61 Ratio (12.00-20.00); Blood Urea Nitrogen 17.8 mg/dL (9.0-27.0); Calcium 8.1 mg/dL (8.7-10.3); Carbon Dioxide 26.2 mmol/L (21.6-31.8); Globulin 2.2 g/dL (1.6-3.3); Non-African American GFR(CKD) 18.1 (60.0-200.0); Potassium 3.9 mmol/L (3.5-5.5); Total Bilirubin 0.4 mg/dL (0.30-1.20); Total Protein 4.6 g/dL (6.2-8.2)
[2021-06-21] MEDS ORDERED: DARBEPOETIN ALFA 60 MCG/0.3 ML SYRINGE SQ SCH (17:00)
--- NOTE | 2021-06-21 17:17 | P.PN ---
Subjective Progress Note Date: 06/21/21 (delayed charting seen at 1430) Principal diagnosis: weakness Patient is a 87-year-old female with a history of end-stage renal disease on hemodialysis, diastolic CHF with ejection fraction 55-60%, noninsulin-dependent diabetes mellitus, hypertension, dyslipidemia, and multiple other comorbid conditions who presented for worsening generalized weakness. She had undergone a fistulogram the day prior to admission. She underwent upper extremity venous Doppler right which was negative for DVT. Otherwise her labs were consistent with baseline. Hepatitis surface antigens were negative. Influenza, RSV, and COVID are all negative. Patient seen and examined at bedside. She reports worsening of her bilateral lower extremity weakness this is progressive. She denies any chest pain, shortness breath, nausea, or vomiting. General: non toxic, no distress, appears at stated age Derm: warm, dry, bess appearance bilateral face Head: atraumatic, normocephalic, symmetric Eyes: EOMI, no lid lag, anicteric sclera Mouth: no lip lesion, mucus membranes moist Cardiovascular: S1S2 reg, no murmur, positive posterior tibial pulse bilateral, Lungs: CTA bilateral, no rhonchi, no rales , no accessory muscle use Abdominal: soft, nontender to palpation, no guarding, no appreciable organomegaly Ext: no gross muscle atrophy, no edema, no contractures Neuro: CN II-XI grossly intact, no focal neuro deficits Psych: Alert, oriented, appropriate affect Generalized progressive weakness - PT/OT - check B12, TSH, VIt D - check CK, No shoulder weakness to suspect PMR but stilla possability, check ESR and CPR - Arrangements for SNF End-stage renal disease on hemodialysis -Nephrology recommendations -We'll need to change her dialysis sites due to patient going to an ECF Anemia of chronic renal disease -Stable -Follow CBC Diabetes mellitus type 2 - follow BS DVT prophylaxis: Heparin Discussed with: patient, nursing, Anticipated discharge: in am Anticipated discharge place: SNF A total of 35 minutes was spent on the care of this complex patient more than 50% of the time was spent in counseling and care coordination. Objective - Vital Signs Vital signs: Vital Signs Temp 98.6 F 06/21/21 14:00 Pulse 68 06/21/21 14:00 Resp 16 06/21/21 14:00 BP 97/58 06/21/21 14:00 Pulse Ox 91 L 06/21/21 14:00 Intake & Output 06/20/21 06/21/21 06/21/21 18:59 06:59 18:59 Weight 83.007 kg Other: Voiding Method Incontinent External Catheter # Voids 4 1 # Bowel Movements 3 1 - Labs CBC & Chem 7: 06/21/21 06:26 06/21/21 06:26 Labs: Abnormal Lab Results - Last 24 Hours (Table) 06/20/21 06/21/21 06/21/21 Range/Units 20:08 06:26 06:26 RBC 2.75 L (4.10-5.20) X 10*6/uL Hgb 9.9 L (12.0-15.0) g/dL Hct 31.9 L (37.2-46.3) % MCV 116.0 H (80.0-97.0) fL MCH 36.0 H (27.0-32.0) pg MCHC 31.0 L (32.0-37.0) g/dL RDW 15.9 H (11.5-14.5) % Plt Count 129 L (140-440) X 10*3/uL Creatinine 2.3 H (0.6-1.5) mg/dL Est GFR (CKD-EPI)AfAm 21.0 L (60.0-200.0) Est GFR (CKD-EPI)NonAf 18.1 L (60.0-200.0) BUN/Creatinine Ratio 7.61 L (12.00-20.00) Ratio POC Glucose (mg/dL) 155 H (75-99) mg/dL Calcium 8.1 L (8.7-10.3) mg/dL Alkaline Phosphatase 197 H (41-126) U/L Total Protein 4.6 L (6.2-8.2) g/dL Albumin 2.3 L (3.8-4.9) g/dL Albumin/Globulin Ratio 1.06 L (1.60-3.17) g/dL 06/21/21 Range/Units 12:02 RBC (4.10-5.20) X 10*6/uL Hgb (12.0-15.0) g/dL Hct (37.2-46.3) % MCV (80.0-97.0) fL MCH (27.0-32.0) pg MCHC (32.0-37.0) g/dL RDW (11.5-14.5) % Plt Count (140-440) X 10*3/uL Creatinine (0.6-1.5) mg/dL Est GFR (CKD-EPI)AfAm (60.0-200.0) Est GFR (CKD-EPI)NonAf (60.0-200.0) BUN/Creatinine Ratio (12.00-20.00) Ratio POC Glucose (mg/dL) 145 H (75-99) mg/dL Calcium (8.7-10.3) mg/dL Alkaline Phosphatase (41-126) U/L Total Protein (6.2-8.2) g/dL Albumin (3.8-4.9) g/dL Albumin/Globulin Ratio (1.60-3.17) g/dL Microbiology - Last 24 Hours (Table) 06/19/21 13:57 Blood Culture - Preliminary Blood No Growth after 48 hours
[2021-06-21 18:07] LABS: C Reactive Protein 5.5 mg/dL (<1.0)
--- NOTE | 2021-06-21 18:34 | PN ---
PROGRESS NOTE Patient is seen for followup for end-stage renal disease. This morning patient states she is feeling better. She wants to be able to get up and have a shower. She is also complaining of vaginal itching. PHYSICAL EXAMINATION: On examination today, blood pressure this morning 120/70, heart rate 68 per minute, she is afebrile. Examination of the heart S1, S2. Examination of the lungs, bilateral breath sounds are heard. Abdomen is soft, nontender. Examination of lower extremities shows 1+ edema bilaterally. The patient has chronic edema as well. THERAPIST PHYSICAL exam grossly intact. LAB: Show hemoglobin 9.9 on June 21. Sodium 138, potassium 3.9, BUN 17.8, creatinine 2.3. ASSESSMENT: 1. End-stage renal disease, on hemodialysis on a Friday, Friday, Friday schedule. 2. Generalized weakness. 3. Mild volume overload, currently improved. 4. Anemia of chronic disease. We will give the patient one dose of Aranesp. 5. CKD mineral bone disorder, maintained on PhosLo. 6. Paroxysmal atrial fibrillation, maintained on Eliquis. PLAN: Add Aranesp and hemodialysis in a.m. I will also give her Monistat cream. MMODL / IJN: [id number] /
[2021-06-21 20:19] LABS: Glucose,Whole Blood 118 mg/dL (75-99)
[2021-06-21] MEDS: MIRTAZAPINE 15 MG TAB PO SCH (20:20)
[2021-06-21] MEDS: ATORVASTATIN 40 MG TAB PO SCH (20:20)
[2021-06-21] MEDS: MICONAZOLE NITRATE 2% CREAM 14 GM TUBE TOPICAL SCH (20:20)
[2021-06-22] MEDS: LEVOTHYROXINE 100 MCG TAB PO SCH (05:36)
[2021-06-22 06:45] LABS: Glucose,Whole Blood 101 mg/dL (75-99)
[2021-06-22] MEDS: allopurinoL 100 MG TAB PO SCH (07:37)
[2021-06-22] MEDS: APIXABAN 2.5 MG TABLET PO SCH ×2 (07:37→16:47)
[2021-06-22] MEDS: CALCIUM ACETATE 667 MG TAB PO SCH ×3 (07:37→16:47)
[2021-06-22] MEDS: PANTOPRAZOLE 40 MG TABLET PO SCH (07:37)
[2021-06-22] MEDS: FLECAINIDE 50 MG TAB PO SCH ×2 (07:38→16:47)
[2021-06-22] MEDS: TORSEMIDE 20 MG TAB PO SCH (07:38)
[2021-06-22] MEDS: NYSTATIN 100,000 UNIT/GM POWD 15 GM TOPICAL SCH ×3 (07:41→22:05)
[2021-06-22] MEDS: MICONAZOLE NITRATE 2% CREAM 14 GM TUBE TOPICAL SCH ×2 (07:41→22:06)
[2021-06-22 11:47] LABS: Glucose,Whole Blood 166 mg/dL (75-99)
[2021-06-22] MEDS: CHOLECALCIFEROL 25 MCG (1000 IU) TABLET PO SCH (12:32)
[2021-06-22 16:39] LABS: Glucose,Whole Blood 117 mg/dL (75-99)
--- NOTE | 2021-06-22 16:56 | P.PN ---
Subjective Progress Note Date: 06/22/21 Hospital course: Patient is a 87-year-old female with a history of end-stage renal disease on hemodialysis, diastolic CHF with ejection fraction 55-60%, noninsulin-dependent diabetes mellitus, hypertension, dyslipidemia, and multiple other comorbid conditions who presented to the hospital for worsening generalized weakness. She had undergone a fistulogram the day prior to admission. She underwent right upper extremity venous Doppler due to swelling and right arm pain which was negative for DVT. Otherwise her labs were consistent with baseline. Hepatitis surface antigens were negative. Influenza, RSV, and COVID are all negative. Physical exam: Patient seen and examined at bedside. She has been up and worked with PT/OT. She reports continued fatigue and weakness of her lower extremities and is requiring 1-2 person assist. She denies experiencing any chest pain, palpitations, shortness of breath, dyspnea with exertion, or any other complaints. She reports worsening of her bilateral lower extremity weakness this is progressive. She denies any chest pain, shortness breath, nausea, or vomiting. General: non toxic, no distress, appears at stated age Derm: warm, dry, bess appearance bilateral face Head: atraumatic, normocephalic, symmetric Eyes: EOMI, no lid lag, anicteric sclera Mouth: no lip lesion, mucus membranes moist Cardiovascular: S1S2 reg, no murmur, positive posterior tibial pulse bilaterally Lungs: CTA bilateral, no rhonchi, no rales , no accessory muscle use Abdominal: soft, nontender to palpation, no guarding, no appreciable organomegaly Ext: no gross muscle atrophy, no edema, no contractures Neuro: CN II-XI grossly intact, no focal neuro deficits Psych: Alert, oriented, appropriate affect Assessment and plan of care: Generalized weakness and activity intolerance - PT/OT evaluated recommending placement in SNF for continued rehabilitation with therapeutic activity, gait training, therapeutic exercise, balance, strength, and increased endurance. - CK 26, CRP 5.5, and ESR 41. -Vitamin D and TSH normal findings. Vitamin B12 1141. -Plan is for discharge to [facility] for continued PT/OT tomorrow afternoon. End-stage renal disease on hemodialysis -Nephrology following -Plan is for patient to receive dialysis tomorrow and be discharged to [facility] for continued PT/OT. Arrangements have been made for patient to go to [facility] in [place] Tuesdays, , and Saturdays. Anemia of chronic renal disease -Stable -Follow CBC Diabetes mellitus type 2 -Glycemic protocol, heart healthy CODE STATUS: Full code DVT prophylaxis: Heparin Discussed with: Patient and RN Anticipated discharge: Discharged to [facility] tomorrow after dialysis Anticipated discharge place: [facility] A total of 40 minutes was spent on the care of this complex patient more than 50% of the time was spent in counseling and care coordination. Objective - Vital Signs Vital signs: Vital Signs Temp 98.2 F 06/22/21 07:28 Pulse 70 06/22/21 07:28 Resp 17 06/22/21 07:28 BP 125/70 06/22/21 07:28 Pulse Ox 98 06/22/21 07:28 Intake & Output 06/21/21 06/22/21 06/22/21 18:59 06:59 18:59 Weight 83.007 kg Other: Voiding Method Diaper Diaper Incontinent Incontinent External Catheter # Voids 0 # Bowel Movements 1 1 1 - Labs CBC & Chem 7: 06/21/21 06:26 06/21/21 06:26 Labs: Abnormal Lab Results - Last 24 Hours (Table) 06/21/21 06/21/21 06/21/21 Range/Units 06:26 06:26 12:02 RBC 2.75 L (4.10-5.20) X 10*6/uL Hgb 9.9 L (12.0-15.0) g/dL Hct 31.9 L (37.2-46.3) % MCV 116.0 H (80.0-97.0) fL MCH 36.0 H (27.0-32.0) pg MCHC 31.0 L (32.0-37.0) g/dL RDW 15.9 H (11.5-14.5) % Plt Count 129 L (140-440) X 10*3/uL ESR (0-20) mm/hr Creatinine 2.3 H (0.6-1.5) mg/dL Est GFR (CKD-EPI)AfAm 21.0 L (60.0-200.0) Est GFR (CKD-EPI)NonAf 18.1 L (60.0-200.0) BUN/Creatinine Ratio 7.61 L (12.00-20.00) Ratio POC Glucose (mg/dL) 145 H (75-99) mg/dL Calcium 8.1 L (8.7-10.3) mg/dL Alkaline Phosphatase 197 H (41-126) U/L Creatine Kinase (30-135) U/L C-Reactive Protein (<1.0) mg/dL Total Protein 4.6 L (6.2-8.2) g/dL Albumin 2.3 L (3.8-4.9) g/dL Albumin/Globulin Ratio 1.06 L (1.60-3.17) g/dL Vitamin B12 (200.0-944.0) pg/mL 06/21/21 06/21/21 06/21/21 Range/Units 17:36 17:36 17:36 RBC (4.10-5.20) X 10*6/uL Hgb (12.0-15.0) g/dL Hct (37.2-46.3) % MCV (80.0-97.0) fL MCH (27.0-32.0) pg MCHC (32.0-37.0) g/dL RDW (11.5-14.5) % Plt Count (140-440) X 10*3/uL ESR 41 H (0-20) mm/hr Creatinine (0.6-1.5) mg/dL Est GFR (CKD-EPI)AfAm (60.0-200.0) Est GFR (CKD-EPI)NonAf (60.0-200.0) BUN/Creatinine Ratio (12.00-20.00) Ratio POC Glucose (mg/dL) (75-99) mg/dL Calcium (8.7-10.3) mg/dL Alkaline Phosphatase (41-126) U/L Creatine Kinase 26 L (30-135) U/L C-Reactive Protein 5.5 H (<1.0) mg/dL Total Protein (6.2-8.2) g/dL Albumin (3.8-4.9) g/dL Albumin/Globulin Ratio (1.60-3.17) g/dL Vitamin B12 1141.0 H (200.0-944.0) pg/mL 06/21/21 06/22/21 Range/Units 20:18 06:43 RBC (4.10-5.20) X 10*6/uL Hgb (12.0-15.0) g/dL Hct (37.2-46.3) % MCV (80.0-97.0) fL MCH (27.0-32.0) pg MCHC (32.0-37.0) g/dL RDW (11.5-14.5) % Plt Count (140-440) X 10*3/uL ESR (0-20) mm/hr Creatinine (0.6-1.5) mg/dL Est GFR (CKD-EPI)AfAm (60.0-200.0) Est GFR (CKD-EPI)NonAf (60.0-200.0) BUN/Creatinine Ratio (12.00-20.00) Ratio POC Glucose (mg/dL) 118 H 101 H (75-99) mg/dL Calcium (8.7-10.3) mg/dL Alkaline Phosphatase (41-126) U/L Creatine Kinase (30-135) U/L C-Reactive Protein (<1.0) mg/dL Total Protein (6.2-8.2) g/dL Albumin (3.8-4.9) g/dL Albumin/Globulin Ratio (1.60-3.17) g/dL Vitamin B12 (200.0-944.0) pg/mL Microbiology - Last 24 Hours (Table) 06/19/21 13:57 Blood Culture - Preliminary Blood No Growth after 48 hours
--- NOTE | 2021-06-22 20:23 | PN ---
PROGRESS NOTE Patient is seen for followup for end-stage renal disease. Patient is comfortable. She will be discharged to rehab. Normally she is maintained on a Friday, Friday, Friday schedule, but she will be going to rehab in [place] and will be maintained on a Friday, , Friday schedule. She was dialyzed for a short time today and patient will be dialyzed again tomorrow for about 2-1/2 hours prior to discharge. On examination today, blood pressure was 125/70, heart rate 70 per minute. She is afebrile. EXAMINATION OF THE HEART: S1 and S2. EXAMINATION OF LUNGS: Bilateral breath sounds are heard. Abdomen is soft, non-tender. Examination of lower extremities shows chronic edema, chronic skin changes. 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 Labs are not available from today. ASSESSMENT: 1. End-stage renal disease, on hemodialysis. Patient will be maintained on a Friday, , Friday schedule as outpatient, as she is going to rehab in [place]. 2. Chronic kidney disease mineral bone disorder. 3. Volume overload, somewhat improved. 4. Hypotension during dialysis, maintained on midodrine. 5. Type 2 diabetes. 6. Perianal candidiasis, maintained on Monistat, improved. PLAN: Repeat hemodialysis tomorrow for about 2-1/2 hours, and patient can be discharged with plans for outpatient treatment on Friday. MARILYN / TAVO: [id number] /
[2021-06-22 20:30] LABS: Glucose,Whole Blood 101 mg/dL (75-99)
[2021-06-22] MEDS: MIRTAZAPINE 15 MG TAB PO SCH (22:05)
[2021-06-22] MEDS: ATORVASTATIN 40 MG TAB PO SCH (22:05)
[2021-06-23] MEDS: LEVOTHYROXINE 100 MCG TAB PO SCH (06:10)
[2021-06-23 07:19] LABS: Glucose,Whole Blood 82 mg/dL (75-99)
[2021-06-23] MEDS: PANTOPRAZOLE 40 MG TABLET PO SCH (07:42)
[2021-06-23] MEDS: FLECAINIDE 50 MG TAB PO SCH ×2 (07:42→18:00)
[2021-06-23] MEDS: CALCIUM ACETATE 667 MG TAB PO SCH ×3 (07:42→18:00)
[2021-06-23] MEDS: allopurinoL 100 MG TAB PO SCH (07:42)
[2021-06-23] MEDS: APIXABAN 2.5 MG TABLET PO SCH ×2 (07:42→18:00)
[2021-06-23] MEDS: NYSTATIN 100,000 UNIT/GM POWD 15 GM TOPICAL SCH ×3 (07:46→20:52)
[2021-06-23] MEDS: MICONAZOLE NITRATE 2% CREAM 14 GM TUBE TOPICAL SCH ×2 (07:46→20:52)
--- NOTE | 2021-06-23 08:54 | P.DS ---
Providers Date of admission: 06/19/21 12:17 Expected date of discharge: 06/23/21 Attending physician: Danika Pereira MD Consults: 06/19/21 11:52 Consult Physician Routine Consulting Provider: Sofia Child Consult Reason/Comments: esrd Do you want consulting provider notified?: Yes Primary care physician: Liza Vargas MD Hospital Course: Discharge Diagnosis: Generalized weakness and activity intolerance End-stage renal disease on hemodialysis Anemia of chronic renal disease, stable Diabetes mellitus type 2 Hospital Course: Patient is a 87-year-old female with a history of end-stage renal disease on hemodialysis, diastolic CHF with ejection fraction 55-60%, noninsulin-dependent diabetes mellitus, hypertension, dyslipidemia, and multiple other comorbid conditions who presented to the hospital for worsening generalized weakness. She had undergone a fistulogram the day prior to admission. She underwent right upper extremity venous Doppler due to swelling and right arm pain which was negative for DVT reporting dialysis fistula/graft patent. EKG showing AV dual paced rhythm at 70 bpm. Otherwise her labs were consistent with baseline. Hepatitis surface antigens were negative. Influenza, RSV, and COVID are all negative. Patient received monitoring, evaluation by PT/OT and arrangements have been made for patient to be discharged to [facility] for [place] nued PT/OT and go to [facility] in [place] Tuesdays, , and Saturdays for dialysis. Patient is medically stable for discharge at this time once dialysis is completed. Physical exam: Patient seen and examined at bedside. She is awaiting completion of dialysis and is aware of plans for discharge to [facility] later today once dialysis is completed. Patient denies having any any complaints at this time including headache, lightheadedness, dizziness, chest pain, palpitations, or shortness of breath. She does report continued weakness in lower extremities but does state it is slightly better. General: non toxic, no distress, appears at stated age Derm: warm, dry, bess appearance bilateral face Head: atraumatic, normocephalic, symmetric Eyes: EOMI, no lid lag, anicteric sclera Mouth: no lip lesion, mucus membranes moist Cardiovascular: S1S2 reg, no murmur, positive posterior tibial pulse bilaterally Lungs: CTA bilateral, no rhonchi, no rales , no accessory muscle use Abdominal: soft, nontender to palpation, no guarding, no appreciable organomegaly Ext: no gross muscle atrophy, no edema, no contractures Neuro: CN II-XI grossly intact, no focal neuro deficits Psych: Alert, oriented, appropriate affect A total of 45 minutes of time were spent preparing this complex discharge summary. Patient Condition at Discharge: Stable Plan - Discharge Summary Discharge Rx Participant: No New Discharge Prescriptions: New Miconazole 2% Cream [Monistat-Derm] 1 applic TOPICAL BID gm Nystatin 100,000 Unit/gm Powd [Mycostatin Powder] 1 applic TOPICAL TID gm Continue Levothyroxine Sodium [Synthroid] 100 mcg PO DAILY allopurinoL [Zyloprim] 100 mg PO AC-BRKFST Pantoprazole [Protonix] 40 mg PO AC-BRKFST Calcium Acetate [PhosLo] 1,334 mg PO AC-TID Mirtazapine [Remeron] 15 mg PO HS Flecainide [Tambocor] 50 mg PO AC-BID Atorvastatin [Lipitor] 40 mg PO HS #30 tab Cyanocobalamin [Vitamin B-12] 500 mcg PO DAILY #30 tab Calcium Carbonate [Tums] 1,000 mg PO QID PRN PRN Reason: between meals and snacks Folic Acid-Vit B Complex-Vit C [Nephrocaps] 1 cap PO AC-LUNCH Cholecalciferol [Vitamin D3 (25 Mcg = 1000 Iu)] 100 mcg PO AC-LUNCH Lidocaine-Prilocaine Cream [Emla Cream 2.5%/2.5%] 1 applic TOPICAL DAILY PRN PRN Reason: avf access Apixaban [Eliquis] 2.5 mg PO AC-BID Famotidine [Pepcid] 20 mg PO AC-TID PRN PRN Reason: Heartburn Torsemide [Demadex] 40 mg PO DAILY #30 tablet Discontinued Metoprolol Tartrate [Lopressor] 12.5 mg PO BID tab Diphenox-Atrop 2.5-0.025 mg [Lomotil] 1 tab PO AC-BID Midodrine [ProAmatine] 5 mg PO AC-BID tab Discharge Medication List Levothyroxine Sodium [Synthroid] 100 mcg PO DAILY 01/31/14 [History] allopurinoL [Zyloprim] 100 mg PO AC-BRKFST 01/18/17 [History] Pantoprazole [Protonix] 40 mg PO AC-BRKFST 08/16/19 [History] Calcium Acetate [PhosLo] 1,334 mg PO AC-TID 05/25/20 [History] Mirtazapine [Remeron] 15 mg PO HS 05/25/20 [History] Flecainide [Tambocor] 50 mg PO AC-BID 07/26/20 [History] Calcium Carbonate [Tums] 1,000 mg PO QID PRN 01/10/21 [History] Cholecalciferol [Vitamin D3 (25 Mcg = 1000 Iu)] 100 mcg PO AC-LUNCH 01/10/21 [History] Folic Acid-Vit B Complex-Vit C [Nephrocaps] 1 cap PO AC-LUNCH 01/10/21 [History] Atorvastatin [Lipitor] 40 mg PO HS #30 tab 02/06/21 [Rx] Cyanocobalamin [Vitamin B-12] 500 mcg PO DAILY #30 tab 02/06/21 [Rx] Lidocaine-Prilocaine Cream [Emla Cream 2.5%/2.5%] 1 applic TOPICAL DAILY PRN 02/19/21 [History] Apixaban [Eliquis] 2.5 mg PO AC-BID 03/21/21 [History] Famotidine [Pepcid] 20 mg PO AC-TID PRN 03/21/21 [History] Torsemide [Demadex] 40 mg PO DAILY #30 tablet 04/10/21 [Rx] Miconazole 2% Cream [Monistat-Derm] 1 applic TOPICAL BID gm 06/23/21 [Rx] Nystatin 100,000 Unit/gm Powd [Mycostatin Powder] 1 applic TOPICAL TID gm 06/23/21 [Rx] Follow up Appointment(s)/Referral(s): Liza Vargas MD [Primary Care Provider] - 1-2 days [facility] [NON-STAFF] - 06/26/21 12:05 pm (Chair time will be 12:20p.m. on Tuesdays, , and Saturdays. Patient needs to arrive at 12:05p.m. for first treatment on Friday. ) Discharge Disposition: TRANSFER TO SNF/ECF
[2021-06-23] MEDS ORDERED: FLUCONAZOLE 150 MG TAB PO STA (08:59)
[2021-06-23 09:09] LABS: HCT 30.2 % (37.2-46.3); HGB 9.6 g/dL (12.0-15.0); MCH 35.4 pg (27.0-32.0); MCHC 31.8 g/dL (32.0-37.0); MCV 111.4 fL (80.0-97.0); Mean Platelet Volume 10.4 fL (9.5-12.2); Platelet Count 153 X 10*3/uL (140-440); RBC 2.71 X 10*6/uL (4.10-5.20); RDW 15.1 % (11.5-14.5)
[2021-06-23 09:50] LABS: African American GFR (CKD) 21.4 (60.0-200.0); Anion Gap 9.4 mmol/L (4.00-12.00); BUN/Creat Ratio 9.96 Ratio (12.00-20.00); Blood Urea Nitrogen 22.9 mg/dL (9.0-27.0); Calcium 8.2 mg/dL (8.7-10.3); Carbon Dioxide 24.6 mmol/L (21.6-31.8); Magnesium 1.8 mg/dL (1.5-2.4); Non-African American GFR(CKD) 18.5 (60.0-200.0); Potassium 4.2 mmol/L (3.5-5.5)
[2021-06-23] MEDS: ACETAMINOPHEN TAB 325 MG TAB PO PRN (10:14)
[2021-06-23 11:35] LABS: Glucose,Whole Blood 180 mg/dL (75-99)
[2021-06-23] MEDS: CHOLECALCIFEROL 25 MCG (1000 IU) TABLET PO SCH (12:15)
--- NOTE | 2021-06-23 15:21 | P.PN ---
Subjective Progress Note Date: 06/23/21 Follow-up for ESRD. Objective - Vital Signs Vital signs: Vital Signs Temp 97.5 F L 06/23/21 08:00 Pulse 70 06/23/21 08:00 Resp 17 06/23/21 08:00 BP 107/55 06/23/21 08:00 Pulse Ox 94 L 06/23/21 08:00 Intake & Output 06/22/21 06/23/21 06/23/21 18:59 06:59 18:59 Intake Total 236 180 Output Total 450 Balance 236 -450 180 Intake: Oral 236 180 Output: Urine 450 Other: Voiding Method Diaper Diaper Diaper Incontinent Incontinent Incontinent External Catheter # Bowel Movements 1 0 - Exam No acute distress S1-S2 heard Decreased breath sounds No edema - Labs CBC & Chem 7: 06/23/21 06:23 06/23/21 06:23 Labs: Abnormal Lab Results - Last 24 Hours (Table) 06/22/21 06/22/21 06/23/21 Range/Units 16:38 20:24 06:23 WBC 4.40 L (4.50-10.00) X 10*3/uL RBC 2.71 L (4.10-5.20) X 10*6/uL Hgb 9.6 L (12.0-15.0) g/dL Hct 30.2 L (37.2-46.3) % MCV 111.4 H (80.0-97.0) fL MCH 35.4 H (27.0-32.0) pg MCHC 31.8 L (32.0-37.0) g/dL RDW 15.1 H (11.5-14.5) % Creatinine (0.6-1.5) mg/dL Est GFR (CKD-EPI)AfAm (60.0-200.0) Est GFR (CKD-EPI)NonAf (60.0-200.0) BUN/Creatinine Ratio (12.00-20.00) Ratio POC Glucose (mg/dL) 117 H 101 H (75-99) mg/dL Calcium (8.7-10.3) mg/dL 06/23/21 06/23/21 Range/Units 06:23 11:33 WBC (4.50-10.00) X 10*3/uL RBC (4.10-5.20) X 10*6/uL Hgb (12.0-15.0) g/dL Hct (37.2-46.3) % MCV (80.0-97.0) fL MCH (27.0-32.0) pg MCHC (32.0-37.0) g/dL RDW (11.5-14.5) % Creatinine 2.3 H (0.6-1.5) mg/dL Est GFR (CKD-EPI)AfAm 21.4 L (60.0-200.0) Est GFR (CKD-EPI)NonAf 18.5 L (60.0-200.0) BUN/Creatinine Ratio 9.96 L (12.00-20.00) Ratio POC Glucose (mg/dL) 180 H (75-99) mg/dL Calcium 8.2 L (8.7-10.3) mg/dL Microbiology - Last 24 Hours (Table) 06/19/21 13:57 Blood Culture - Preliminary Blood No Growth after 72 hours Assessment and Plan Assessment: #1 ESRD on hemodialysis TTS schedule. #2 hypotensive episodes on midodrine #3 perianal candidiasis. #4 volume overload improved with dialysis #5 anemia with ESRD Plan: #1 hemodialysis TTS schedule. Can be discharged after dialysis
[2021-06-23] MEDS: TORSEMIDE 20 MG TAB PO SCH (17:00)
[2021-06-23 17:16] LABS: Glucose,Whole Blood 87 mg/dL (75-99)
[2021-06-23] MEDS: MIRTAZAPINE 15 MG TAB PO SCH (20:52)
[2021-06-23] MEDS: ATORVASTATIN 40 MG TAB PO SCH (20:52)
[2021-06-23 22:30] LABS: Glucose,Whole Blood 117 mg/dL (75-99)
[2021-06-24] MEDS: LEVOTHYROXINE 100 MCG TAB PO SCH (06:20)
[2021-06-24 07:22] LABS: Glucose,Whole Blood 84 mg/dL (75-99)
[2021-06-24] MEDS: FLECAINIDE 50 MG TAB PO SCH ×2 (07:28→17:11)
[2021-06-24] MEDS: PANTOPRAZOLE 40 MG TABLET PO SCH (07:28)
[2021-06-24] MEDS: allopurinoL 100 MG TAB PO SCH (07:28)
[2021-06-24] MEDS: APIXABAN 2.5 MG TABLET PO SCH ×2 (07:28→17:11)
[2021-06-24] MEDS: CALCIUM ACETATE 667 MG TAB PO SCH ×3 (07:28→17:11)
[2021-06-24] MEDS: TORSEMIDE 20 MG TAB PO SCH (07:28)
[2021-06-24] MEDS: NYSTATIN 100,000 UNIT/GM POWD 15 GM TOPICAL SCH ×3 (07:30→20:55)
[2021-06-24] MEDS: MICONAZOLE NITRATE 2% CREAM 14 GM TUBE TOPICAL SCH ×2 (07:31→20:55)
[2021-06-24] MEDS: ACETAMINOPHEN TAB 325 MG TAB PO PRN (07:39)
--- NOTE | 2021-06-24 09:49 | P.PN ---
Subjective Progress Note Date: 06/24/21 Follow-up for ESRD. Objective - Vital Signs Vital signs: Vital Signs Temp 97.6 F 06/24/21 07:27 Pulse 84 06/24/21 07:27 Resp 20 06/24/21 07:27 BP 124/58 06/24/21 07:27 Pulse Ox 97 06/24/21 07:27 Intake & Output 06/23/21 06/24/21 06/24/21 18:59 06:59 18:59 Intake Total 680 Output Total 2800 150 Balance -2120 -150 Intake: Oral 380 Hemodialysis 300 Output: Urine 150 Hemodialysis 2800 Other: Voiding Method Diaper External Catheter External Catheter Incontinent External Catheter # Bowel Movements 3 - Exam No acute distress S1-S2 heard Decreased breath sounds No edema - Labs CBC & Chem 7: 06/23/21 06:23 06/23/21 06:23 Labs: Abnormal Lab Results - Last 24 Hours (Table) 06/23/21 06/23/21 06/23/21 Range/Units 06:23 11:33 22:19 Creatinine 2.3 H (0.6-1.5) mg/dL Est GFR (CKD-EPI)AfAm 21.4 L (60.0-200.0) Est GFR (CKD-EPI)NonAf 18.5 L (60.0-200.0) BUN/Creatinine Ratio 9.96 L (12.00-20.00) Ratio POC Glucose (mg/dL) 180 H 117 H (75-99) mg/dL Calcium 8.2 L (8.7-10.3) mg/dL Microbiology - Last 24 Hours (Table) 06/19/21 13:57 Blood Culture - Preliminary Blood No Growth after 96 hours Assessment and Plan Assessment: #1 ESRD on hemodialysis TTS schedule. #2 hypotensive episodes on midodrine #3 perianal candidiasis. #4 volume overload improved with dialysis #5 anemia with ESRD Plan: #1 hemodialysis TTS schedule. #2 stable from nephrology for discharge
[2021-06-24 11:36] LABS: Glucose,Whole Blood 147 mg/dL (75-99)
[2021-06-24] MEDS: CHOLECALCIFEROL 25 MCG (1000 IU) TABLET PO SCH (12:32)
--- NOTE | 2021-06-24 14:50 | P.PN ---
Subjective Progress Note Date: 06/24/21 Hospital course: Patient is a 87-year-old female with a history of end-stage renal disease on hemodialysis, diastolic CHF with ejection fraction 55-60%, noninsulin-dependent diabetes mellitus, hypertension, dyslipidemia, and multiple other comorbid conditions who presented to the hospital for worsening generalized weakness. She had undergone a fistulogram the day prior to admission. She underwent right upper extremity venous Doppler due to swelling and right arm pain which was negative for DVT. Otherwise her labs were consistent with baseline. Hepatitis surface antigens were negative. Influenza, RSV, and COVID are all . Physical exam: Patient seen and examined at bedside this morning she reports feeling sleepy but otherwise denies having any complaints . [facility] to previously arranged transportation being no longer available after patient completed dialysis yesterday. income tax manager was contacted and reported transportation would not be available again until Friday morning. Patient aware of delayed discharge and currently denied experiencing any chest pain, pa lpitations, shortness of breath, dyspnea with exertion, or any other complaints. General: non toxic, no distress, appears at stated age Derm: warm, dry, bess appearance bilateral face Head: atraumatic, normocephalic, symmetric Eyes: EOMI, no lid lag, anicteric sclera Mouth: no lip lesion, mucus membranes moist Cardiovascular: S1S2 reg, no murmur, positive posterior tibial pulse bilaterally Lungs: CTA bilateral, no rhonchi, no rales , no accessory muscle use Abdominal: soft, nontender to palpation, no guarding, no appreciable organomegaly Ext: no gross muscle atrophy, no edema, no contractures Neuro: CN II-XI grossly intact, no focal neuro deficits Psych: Alert, oriented, appropriate affect Assessment and plan of care: Generalized weakness and activity intolerance - PT/OT evaluated recommending placement in SNF for continued rehabilitation with therapeutic activity, gait training, therapeutic exercise, balance, stren gth, and increased endurance. - CK 26, CRP 5.5, and ESR 41. -Vitamin D and TSH normal findings. Vitamin B12 1141. -Plan is for discharge to [facility] for continued PT/OT End-stage renal disease on hemodialysis -Nephrology following -Plan is for patient to receive dialysis tomorrow and be discharged to [facility] for continued PT/OT. Arrangements have been made for patient to go to [facility] [place] in [place] Tuesdays, , and Saturdays. Anemia of chronic renal disease -Stable -Follow CBC Diabetes mellitus type 2 -Glycemic protocol, heart healthy CODE STATUS: Full code DVT prophylaxis: Heparin Discussed with: Patient and RN Anticipated discharge: Discharged to [facility] tomorrow a.m. Anticipated discharge place: [facility] A total of 40 minutes was spent on the care of this complex patient more than 50% of the time was spent in counseling and care coordination. Objective - Vital Signs Vital signs: Vital Signs Temp 97.6 F 06/24/21 07:27 Pulse 84 06/24/21 07:27 Resp 20 06/24/21 07:27 BP 124/58 06/24/21 07:27 Pulse Ox 97 06/24/21 07:27 Intake & Output 06/23/21 06/24/21 06/24/21 18:59 06:59 18:59 Intake Total 680 Output Total 2800 150 Balance -2120 -150 Intake: Oral 380 Hemodialysis 300 Output: Urine 150 Hemodialysis 2800 Other: Voiding Method Diaper External Catheter External Catheter Incontinent External Catheter # Bowel Movements 3 - Labs CBC & Chem 7: 06/23/21 06:23 06/23/21 06:23 Labs: Abnormal Lab Results - Last 24 Hours (Table) 06/23/21 06/24/21 Range/Units 22:19 11:35 POC Glucose (mg/dL) 117 H 147 H (75-99) mg/dL Microbiology - Last 24 Hours (Table) 06/19/21 13:57 Blood Culture - Preliminary Blood No Growth after 96 hours
[2021-06-24 16:39] LABS: Glucose,Whole Blood 137 mg/dL (75-99)
[2021-06-24] MEDS: ATORVASTATIN 40 MG TAB PO SCH (20:55)
[2021-06-24] MEDS: MIRTAZAPINE 15 MG TAB PO SCH (20:55)
[2021-06-24 21:03] LABS: Glucose,Whole Blood 131 mg/dL (75-99)
[2021-06-25 01:40] VITALS: TEMP 97.8
[2021-06-25] MEDS: LEVOTHYROXINE 100 MCG TAB PO SCH (05:57)
[2021-06-25 06:49] LABS: Glucose,Whole Blood 91 mg/dL (75-99)
[2021-06-25 07:39] VITALS: BP 132/56; PULSE 78; RESP 16
[2021-06-25] MEDS: APIXABAN 2.5 MG TABLET PO SCH (07:43)
[2021-06-25] MEDS: PANTOPRAZOLE 40 MG TABLET PO SCH (07:43)
[2021-06-25] MEDS: TORSEMIDE 20 MG TAB PO SCH (07:43)
[2021-06-25] MEDS: allopurinoL 100 MG TAB PO SCH (07:43)
[2021-06-25] MEDS: FLECAINIDE 50 MG TAB PO SCH (07:43)
[2021-06-25] MEDS: CALCIUM ACETATE 667 MG TAB PO SCH (07:43)
[2021-06-25] MEDS: MICONAZOLE NITRATE 2% CREAM 14 GM TUBE TOPICAL SCH (07:44)
[2021-06-25] MEDS: NYSTATIN 100,000 UNIT/GM POWD 15 GM TOPICAL SCH (07:44)
--- NOTE | 2021-06-25 09:17 | P.DS ---
Providers Date of admission: 06/19/21 12:17 Expected date of discharge: 06/25/21 Attending physician: Danika Pereira MD Consults: 06/19/21 11:52 Consult Physician Routine Consulting Provider: Sofia Child Consult Reason/Comments: esrd Do you want consulting provider notified?: Yes Primary care physician: Liza Vargas MD Hospital Course: Discharge Diagnosis: Generalized weakness and activity intolerance End-stage renal disease on hemodialysis Anemia of chronic renal disease, stable Diabetes mellitus type 2 Hospital Course: Patient is a 87-year-old female with a history of end-stage renal disease on hemodialysis, diastolic CHF with ejection fraction 55-60%, noninsulin-dependent diabetes mellitus, hypertension, dyslipidemia, and multiple other comorbid conditions who presented to the hospital for worsening generalized weakness. She had undergone a fistulogram the day prior to admission. She underwent right upper extremity venous Doppler due to swelling and right arm pain which was negative for DVT reporting dialysis fistula/graft patent. EKG showing AV dual paced rhythm at 70 bpm. Otherwise her labs were consistent with baseline. Hepatitis surface antigens were negative. Influenza, RSV, and COVID are all negative. Patient received monitoring, evaluation by PT/OT and arrangements have been made for patient to be discharged to [facility] [place] for is[place] nued PT/OT and go to [facility] in [place] Tuesdays, , and Saturdays for dialysis. Physical exam: Patient seen and examined at bedside. Shet denied having any discomorts or complaints at this time including headache, lightheadedness, dizziness, chest pain, palpitations, or shortness of breath. She is awaiting transportation to take her to [facility] where she will receive continued PT for her generalized and BLE weakness. General: non toxic, no distress, appears at stated age Derm: warm, dry, bess appearance bilateral face Head: atraumatic, normocephalic, symmetric Eyes: EOMI, no lid lag, anicteric sclera Mouth: no lip lesion, mucus membranes moist Cardiovascular: S1S2 reg, no murmur, positive posterior tibial pulse bilaterally Lungs: CTA bilateral, no rhonchi, no rales , no accessory muscle use Abdominal: soft, nontender to palpation, no guarding, no appreciable organomegaly Ext: no gross muscle atrophy, no edema, no contractures Neuro: CN II-XI grossly intact, no focal neuro deficits Psych: Alert, oriented, appropriate affect A total of 45 minutes of time were spent preparing this complex discharge reji juan. Patient Condition at Discharge: Stable Plan - Discharge Summary Discharge Rx Participant: No New Discharge Prescriptions: New Miconazole 2% Cream [Monistat-Derm] 1 applic TOPICAL BID gm Nystatin 100,000 Unit/gm Powd [Mycostatin Powder] 1 applic TOPICAL TID gm Continue Levothyroxine Sodium [Synthroid] 100 mcg PO DAILY allopurinoL [Zyloprim] 100 mg PO AC-BRKFST Pantoprazole [Protonix] 40 mg PO AC-BRKFST Calcium Acetate [PhosLo] 1,334 mg PO AC-TID Mirtazapine [Remeron] 15 mg PO HS Flecainide [Tambocor] 50 mg PO AC-BID Atorvastatin [Lipitor] 40 mg PO HS #30 tab Cyanocobalamin [Vitamin B-12] 500 mcg PO DAILY #30 tab Calcium Carbonate [Tums] 1,000 mg PO QID PRN PRN Reason: between meals and snacks Folic Acid-Vit B Complex-Vit C [Nephrocaps] 1 cap PO AC-LUNCH Cholecalciferol [Vitamin D3 (25 Mcg = 1000 Iu)] 100 mcg PO AC-LUNCH Lidocaine-Prilocaine Cream [Emla Cream 2.5%/2.5%] 1 applic TOPICAL DAILY PRN PRN Reason: avf access Apixaban [Eliquis] 2.5 mg PO AC-BID Famotidine [Pepcid] 20 mg PO AC-TID PRN PRN Reason: Heartburn Torsemide [Demadex] 40 mg PO DAILY #30 tablet Discontinued Metoprolol Tartrate [Lopressor] 12.5 mg PO BID tab Diphenox-Atrop 2.5-0.025 mg [Lomotil] 1 tab PO AC-BID Midodrine [ProAmatine] 5 mg PO AC-BID tab Discharge Medication List Levothyroxine Sodium [Synthroid] 100 mcg PO DAILY 01/31/14 [History] allopurinoL [Zyloprim] 100 mg PO AC-BRKFST 01/18/17 [History] Pantoprazole [Protonix] 40 mg PO AC-BRKFST 08/16/19 [History] Calcium Acetate [PhosLo] 1,334 mg PO AC-TID 05/25/20 [History] Mirtazapine [Remeron] 15 mg PO HS 05/25/20 [History] Flecainide [Tambocor] 50 mg PO AC-BID 07/26/20 [History] Calcium Carbonate [Tums] 1,000 mg PO QID PRN 01/10/21 [History] Cholecalciferol [Vitamin D3 (25 Mcg = 1000 Iu)] 100 mcg PO AC-LUNCH 01/10/21 [History] Folic Acid-Vit B Complex-Vit C [Nephrocaps] 1 cap PO AC-LUNCH 01/10/21 [History] Atorvastatin [Lipitor] 40 mg PO HS #30 tab 02/06/21 [Rx] Cyanocobalamin [Vitamin B-12] 500 mcg PO DAILY #30 tab 02/06/21 [Rx] Lidocaine-Prilocaine Cream [Emla Cream 2.5%/2.5%] 1 applic TOPICAL DAILY PRN 02/19/21 [History] Apixaban [Eliquis] 2.5 mg PO AC-BID 03/21/21 [History] Famotidine [Pepcid] 20 mg PO AC-TID PRN 03/21/21 [History] Torsemide [Demadex] 40 mg PO DAILY #30 tablet 04/10/21 [Rx] Miconazole 2% Cream [Monistat-Derm] 1 applic TOPICAL BID gm 06/23/21 [Rx] Nystatin 100,000 Unit/gm Powd [Mycostatin Powder] 1 applic TOPICAL TID gm 06/23/21 [Rx] Follow up Appointment(s)/Referral(s): Liza Vargas MD [Primary Care Provider] - 1-2 days [facility] [[facility]] - 06/26/21 12:05 pm (Chair time will be 12:20p.m. on Tuesdays, , and Saturdays. Patient needs to arrive at 12:05p.m. for first treatment on Friday. ) Activity/Diet/Wound Care/Special Instructions: Activity: As tolerated. Take breaks as needed. Diet: Heart healthy and carb consistent diet. Avoid salts, or foods with hidden salts such as canned or boxed foods and frozen dinners. Extra salt makes your heart work harder and traps the fluid in your body for longer. Special Instructions: Take all of your medications as directed and remember to keep all of your doctor's appointments and follow-up as needed. Thank you for allowing us to participate in your care, it was truly a pleasure having you for our patient!!! You are being transferred to [facility] for continued physical therapy. Corbin ureña have been made for Dialysis at [facility] on Tuesdays, and Saturdays. Discharge Disposition: TRANSFER TO SNF/ECF
== END 2021-06-25 12:54 ==
LOC: EC 09:24 → INTOOBSV 12:17 → 5NMEDONC 12:17 → 4SSUR 15:43 → UNDODISIN 06-25 12:54
PROVIDERS: ADMIT Internal Medicine; ATTEND Internal Medicine
DX: T82.848A Pain due to vascular prosthetic devices, implants and grafts, initial encounter (principal); E11.22 Type 2 diabetes mellitus with diabetic chronic kidney disease; E11.40 Type 2 diabetes mellitus with diabetic neuropathy, unspecified; I13.2 Hypertensive heart and chronic kidney disease with heart failure and with stage 5 chronic kidney disease, or end stage renal disease; I50.32 Chronic diastolic (congestive) heart failure; N18.6 End stage renal disease; D63.1 Anemia in chronic kidney disease; Z99.2 Dependence on renal dialysis; E78.5 Hyperlipidemia, unspecified; I48.20 Chronic atrial fibrillation, unspecified; K21.9 Gastro-esophageal reflux disease without esophagitis; I25.2 Old myocardial infarction; M19.90 Unspecified osteoarthritis, unspecified site; M06.9 Rheumatoid arthritis, unspecified; I49.5 Sick sinus syndrome; G47.33 Obstructive sleep apnea (adult) (pediatric); G89.29 Other chronic pain; M25.561 Pain in right knee; M25.562 Pain in left knee; M54.9 Dorsalgia, unspecified; E03.9 Hypothyroidism, unspecified; M10.9 Gout, unspecified; G62.9 Polyneuropathy, unspecified; R32 Unspecified urinary incontinence; I48.0 Paroxysmal atrial fibrillation; R53.1 Weakness; E83.9 Disorder of mineral metabolism, unspecified; I95.3 Hypotension of hemodialysis; B37.89 Other sites of candidiasis; Z20.822 Contact with and (suspected) exposure to COVID-19; Z86.711 Personal history of pulmonary embolism; Z86.718 Personal history of other venous thrombosis and embolism; Z86.73 Personal history of transient ischemic attack (TIA), and cerebral infarction without residual deficits; Z87.440 Personal history of urinary (tract) infections; Z86.14 Personal history of Methicillin resistant Staphylococcus aureus infection; Z95.0 Presence of cardiac pacemaker; Z16.24 Resistance to multiple antibiotics; Z90.710 Acquired absence of both cervix and uterus; Z79.899 Other long term (current) drug therapy; Z79.890 Hormone replacement therapy; Z79.01 Long term (current) use of anticoagulants; Z88.0 Allergy status to penicillin; Z88.5 Allergy status to narcotic agent; Z88.2 Allergy status to sulfonamides; Z71.9 Counseling, unspecified; Y71.2 Prosthetic and other implants, materials and accessory cardiovascular devices associated with adverse incidents; Z98.890 Other specified postprocedural states; Z82.49 Family history of ischemic heart disease and other diseases of the circulatory system; Z83.3 Family history of diabetes mellitus; Z82.61 Family history of arthritis; Z80.9 Family history of malignant neoplasm, unspecified
CPT/HCPCS: 90970 ×3; 96372; 96360; 99285; 36415; 93005; 97530 ×2; 97162; 97166; 80053 ×2; 80048 ×2; 85652; 87517; 84443; 82607; 82550; 83735 ×2; 85025 ×3; 85027; 86140; 86706; 87340; 87040; 82306; 86704; 87635; 87636; 93971; G0378 ×8; J0881; 90935

== ENCOUNTER → 2022-03-12 | Outpatient (CLI) | payer MEDICARE ==
[2022-03-13 08:00] LABS: Appearance,Urine Turbid (Clear); Bilirubin,Urine Small (Negative); Blood,Urine Moderate (Negative); Color,Urine Dark Yellow (Yellow); Ketones,Urine Trace mg/dL (Negative); Nitrite,Urine Negative (Negative); PH, Urine 5.5 (5.0-8.0); Specific Gravity,Urine 1.018 (1.001-1.030); Urobilinogen,Urine 0.2 (0.2,1.0)
[2022-03-13 09:13] LABS: Bacteria,Urine 3+ /HPF (None Seen)
== END | disposition home or self-care (01) ==
LOC: LABMARSNF 22:24 → LABPRL 22:24 → EDSTATUS 22:25
PROVIDERS: ATTEND Internal Medicine Geriatric Medicine
DX: E11.22 Type 2 diabetes mellitus with diabetic chronic kidney disease (principal); N18.6 End stage renal disease; D64.9 Anemia, unspecified
CPT/HCPCS: 81001; 87086

== ENCOUNTER 2022-12-03 10:35 | Observation (INO) | payer MEDICARE ==
[2022-12-03 12:52] LABS: Basophils % (A) 0 %; Eosinophils # (A) 0.1 k/uL (0-0.7); Eosinophils % (A) 2 %; HCT 32.3 % (34.0-46.0); HGB 10.5 gm/dL (11.4-16.0); Lymphocytes # (A) 1.5 k/uL (1.0-4.8); Lymphocytes % (A) 21 %; MCH 35.6 pg (25.0-35.0); MCHC 32.4 g/dL (31.0-37.0); MCV 109.9 fL (80.0-100.0); Macrocytosis Marked; Mean Platelet Volume 9.1; Monocytes # (A) 0.3 k/uL (0-1.0); Monocytes % (A) 5 %; Neutrophils # (A) 5.1 k/uL (1.3-7.7); Neutrophils % (A) 71 %; Platelet Count 144 k/uL (150-450); RBC 2.94 m/uL (3.80-5.40); RDW 15.7 % (11.5-15.5); WBC 7.2 k/uL (3.8-10.6)
[2022-12-03] MEDS ORDERED: NALOXONE 0.4 MG/ML 1 ML VIAL IV PRN (13:09)
[2022-12-03 13:11] LABS: Albumin 3.3 g/dL (3.5-5.0); Partial Thromboplastin Time 24.6 sec (22.0-30.0); Potassium 3.8 mmol/L (3.5-5.1); Prothrombin Time 10.5 sec (9.0-12.0); Total Bilirubin 0.6 mg/dL (0.2-1.3); Total Protein 5.7 g/dL (6.3-8.2)
--- NOTE | 2022-12-03 13:13 | ED ---
Recheck HPI - General Chief Complaint: Recheck/Abnormal Lab/Rx Stated Complaint: Recheck Time Seen by Provider: 12/03/22 11:09 Source: patient, RN notes reviewed Mode of arrival: EMS Limitations: no limitations - History of Present Illness Initial Comments: Patient is a new EKG 87-year-old female presenting to the emergency room via EMS from [facility] with uncontrollable bleeding from the distal portion of her AV fistula after applying her asthma cream to her fistula site predialysis this morning. Pressure dressing and clamp was applied to hold pressure. She reports that she underwent a fistulogram along with ballooning of Werner Ambia 4 days ago. She did have dialysis on Friday, 3 days ago without complications. She denies any other complaints or concerns with the exception of her bleeding AV fistula site. She is on renally adjusted Eliquis. She denies any chest pain, shortness of breath, headache, dizziness, fevers or chills. In addition to her end-stage renal disease she has a past medical history significa nt for Hypertension, hyperlipidemia, diabetes, A. fib, pulmonary emboli, osteoarthritis, sleep apnea, hypothyroidism, CVA, HARRIS and peripheral neuropathy. - Related Data Home Medications Medication Instructions Recorded Confirmed Levothyroxine Sodium [Synthroid] 100 mcg PO DAILY 01/31/14 12/03/22 allopurinoL [Zyloprim] 100 mg PO AC-BRKFST 01/18/17 12/03/22 Calcium Acetate [PhosLo] 2,001 mg PO TID-W/MEALS 05/25/20 12/03/22 Mirtazapine [Remeron] 15 mg PO HS 05/25/20 12/03/22 Calcium Carbonate [Tums] 1,000 mg PO QID PRN 01/10/21 12/03/22 Cholecalciferol [Vitamin D3 (25 100 mcg PO AC-LUNCH 01/10/21 12/03/22 Mcg = 1000 Iu)] Folic Acid-Vit B Complex-Vit C 1 cap PO AC-LUNCH 01/10/21 12/03/22 [Nephrocaps] Lidocaine-Prilocaine Cream [Emla 1 applic TOPICAL DAILY PRN 02/19/21 12/03/22 Cream 2.5%/2.5%] Apixaban [Eliquis] 2.5 mg PO BID@0800,1700 03/21/21 12/03/22 Acetaminophen [Tylenol 8 Hour] 650 mg PO Q4H PRN 12/03/22 12/03/22 Amiodarone [Cordarone] 200 mg PO DAILY@1700 12/03/22 12/03/22 Atorvastatin [Lipitor] 20 mg PO HS 12/03/22 12/03/22 Biotin 10 mg PO DAILY@1700 12/03/22 12/03/22 Chlorhexidine Gluconate [Hibiclens] 1 applic TOPICAL MOWESA 12/03/22 12/03/22 Docusate [Colace] 100 mg PO BID@0800,1700 12/03/22 12/03/22 Gabapentin [Neurontin] 100 mg PO DAILY@169912/03/22 12/03/22 Gabapentin [Neurontin] 200 mg PO DAILY@0800 12/03/22 12/03/22 Glucerna Shake 1 can PO TUTHSA@1000 12/03/22 12/03/22 INSULIN LISPRO (HumaLOG) [humaLOG] See Protocol SQ AC-TID 12/03/22 12/03/22 Insulin Glargine [Lantus Vial] 15 unit SQ HS 12/03/22 12/03/22 Loratadine [Claritin] 10 mg PO Q2D 12/03/22 12/03/22 Midodrine HCl [ProAmatine] 10 mg PO DAILY 12/03/22 12/03/22 Mirabegron [Myrbetriq] 25 mg PO DAILY 12/03/22 12/03/22 Nystatin 100,000 Unit/gm Powd 1 applic TOPICAL TID 12/03/22 12/03/22 [Mycostatin Powder] Ondansetron [Zofran] 4 mg PO DAILY PRN 12/03/22 12/03/22 Potassium Chloride [Klor-Con M20] 20 meq PO DAILY@169912/03/22 12/03/22 Sodium Chloride 5% Ophth Soln 1 drop BOTH EYES BID@0800,1700 12/03/22 12/03/22 [Nikko 128] Torsemide [Demadex] 60 mg PO DAILY@1700 12/03/22 12/03/22 bisacodyL [Dulcolax] 10 mg RECTAL DAILY PRN 12/03/22 12/03/22 guaiFENesin [guaiFENesin Oral 200 mg PO Q4H PRN 12/03/22 12/03/22 Solution] metroNIDAZOLE 0.75% CREAM 1 applic TOPICAL BID PRN 12/03/22 12/03/22 [Metrocream 0.75%] Previous Rx's Medication Instructions Recorded Cyanocobalamin [Vitamin B-12] 500 mcg PO DAILY #30 tab 02/06/21 Allergies Allergy/AdvReac Type Severity Reaction Status Date / Time amoxicillin Allergy Rash/Hives Verified 12/03/22 13:03 Penicillins Allergy Rash/Hives Verified 12/03/22 13:03 Sulfa (Sulfonamide Allergy Rash/Hives Verified 12/03/22 13:03 Antibiotics) meperidine HCl [From Demerol] AdvReac Nausea & Verified 12/03/22 13:03 Vomiting Review of Systems ROS Statement: Those systems with pertinent positive or pertinent negative responses have been documented in the HPI. ROS Other: All systems not noted in ROS Statement are negative. Past Medical History Past Medical History: Atrial Fibrillation, Heart Failure, CVA/TIA, Diabetes Mellitus, Dialysis, Deep Vein Thrombosis (DVT), GERD/Reflux, Hyperlipidemia, Hypertension, Myocardial Infarction (NH), Osteoarthritis (OA), Pulmonary Embolus (PE), Renal Disease, Rheumatoid Arthritis (RA), Sleep Apnea/CPAP/BIPAP, Thyroid Disorder Additional Past Medical History / Comment(s): on 02/06/20 with UTI/ESBL/bacteremia. Other hx: IDDM type II, diabetic neuropathy bilateral hands/feet, ESRD with hemodialysis, recurrent UTIs, pt was told she had a past NH d/t EKG, palpitations, SSS with pacer, HARRIS with Cpap, chronic back and bilateral knee pain, hypothyroid. bilat carotid artery occlusions and a stroke she was unaware of Last Myocardial Infarction Date:: unknown History of Any Multi-Drug Resistant Organisms: ESBL, MRSA, VRE Date of last positivie culture/infection: 02/01/21 VRE & MRSA at [facility] MDRO Source:: URINE-VRE & MRSA Past Surgical History: Bladder Surgery, Hysterectomy, Pacemaker Additional Past Surgical History / Comment(s): 02/01/20 R upper arm fistula repositioned, R chest boone cath, rectocele, cystocele, hemorrhoidectomy, bilateral leg vein strippings, bilateral cataract removal, Picc lines, bladder biopsy Past Anesthesia/Blood Transfusion Reactions: No Reported Reaction Type of Cardiac Device: Permanent Pacemaker Device Placement Date:: 01/2017 Past Psychological History: No Psychological Hx Reported Smoking Status: Never smoker Past Alcohol Use History: None Reported Past Drug Use History: None Reported - Past Family History Father Family Medical History: AFIB, AICD/Pacemaker, Congestive Heart Failure (CHF), Coronary Artery Disease (CAD), Diabetes Mellitus, Dialysis, Deep Vein Thrombosis (DVT), Hyperlipidemia, Hypertension, Myocardial Infarction (NH), Rheumatoid Arthritis (RA) Mother Family Medical History: Unable to Obtain Sister(s) Family Medical History: Cancer General Exam - General Exam Comments Initial Comments: GENERAL: No acute distress, well developed, well nourished. HEENT: Normocephalic, atraumatic. Pupils equal, round, reactive to light. Moist mucous membranes. Very hard of hearing LUNGS: No respiratory distress. Clear to auscultation, no adventitious sounds, no use of accessory muscles. HEART: Regular rate and rhythm without murmur, rub, or gallop. ABDOMEN: Normal bowel sounds. Soft, non-tender, non-distended. BACK: Normal inspection. EXTREMITIES: Bilateral lower extremity edema +2, compression stockings intact. No tenderness. Moves all extremities. AV fistula as below. +/+ NEUROLOGIC: Alert & oriented x 3. CN II-XII grossly intact. PSYCHIATRIC: Normal affect and behavior. DERMATOLOGIC: AV fistula right upper arm with small pinhole opening likely pre- ulceration of repeated needlesticks from hemodialysis. Limitations: no limitations Course Vital Signs 12/03/22 12/03/22 12/03/22 10:54 12:00 13:00 Temperature 97.9 F 97.7 F 97 F L Pulse Rate 77 81 78 Respiratory 16 16 16 Rate Blood Pressure 121/66 142/84 137/65 O2 Sat by Pulse 97 100 100 Oximetry 12/03/22 12/03/22 12/03/22 15:00 16:00 17:00 Temperature 97 F L 97.3 F L 97 F L Pulse Rate 80 79 78 Respiratory 16 16 16 Rate Blood Pressure 143/68 139/70 137/65 O2 Sat by Pulse 100 100 100 Oximetry 12/03/22 17:23 Temperature 97.3 F L Pulse Rate 80 Respiratory 16 Rate Blood Pressure 141/87 O2 Sat by Pulse 100 Oximetry Medical Decision Making - Medical Decision Making Was pt. sent in by a medical professional or institution (PRACHI Escobar, PIPED POCKET MACHINE OPERATOR, urgent care, hospital, or chcf...) When possible be specific @ -[facility] Did you speak to anyone other than the patient for history (EMS, parent, family, police, friend...)? What history was obtained from this source @ -No Did you review nursing and triage notes (agree or disagree)? Why? @ -I reviewed and agree with nursing and triage notes Were old charts reviewed (outside hosp., previous admission, EMS record, old EKG, old radiological studies, urgent care reports/EKG's, chcf records)? Report findings @ -No old charts were reviewed Differential Diagnosis (chest pain, altered mental status, abdominal pain women, abdominal pain men, vaginal bleeding, weakness, fever, dyspnea, syncope, headache, dizziness, GI bleed, back pain, seizure, CVA, palpatations, mental health, musculoskeletal)? @ -not applicable EKG interpreted by me (3pts min.). @ -None done X-rays interpreted by me (1pt min.). @ -None done CT interpreted by me (1pt min.). @ -None done U/S interpreted by me (1pt. min.). @ -None done What testing was considered but not performed or refused? (CT, X-rays, U/S, labs)? Why? @ -None What meds were considered but not given or refused? Why? @ -None Did you discuss the management of the patient with other professionals (professionals i.e. PRACHI Escobar, PIPED POCKET MACHINE OPERATOR, lab, RT, psych nurse, social worker psychiatric, louver door assembler, teacher, maritime officer, casey saw operator)? Give summary @ -Yes, I spoke with Dr. Kaplan litigated the AV fistula site at the bedside and advised observation admission with dialysis. Spoke to Dr. Velez on for patient's primary care provider who is accepting of admission and observation status will consult nephrology for dialysis. Was smoking cessation discussed for >3mins.? @ -No Was critical care preformed (if so, how long)? @ -No Were there social determinants of health that impacted care today? How? (Homelessness, low income, unemployed, alcoholism, drug addiction, transportation, low edu. Level, literacy, decrease access to med. care, senior care, rehab)? @ -No Was there de-escalation of care discussed even if they declined (Discuss DNR or withdrawal of care, Hospice)? DNR status @ -No What co-morbidities impacted this encounter? (DM, HTN, Smoking, COPD, CAD, Cancer, CVA, ARF, Chemo, Hep., AIDS, mental health diagnosis, sleep apnea, morbid obesity)? @ -ESRD on HD Was patient admitted / discharged? Hospital course, mention meds given and route, prescriptions, significant lab abnormalities, going to OR and other pertinent info. @ -87-year-old female presenting to the emergency room via EMS from [facility] with uncontrollable bleeding from the distal portion of her AV fistula after applying her asthma cream to her fistula site predialysis this morning. Pressure dressing and clamp was applied to hold pressure. Assessment revealed continued bleeding at a pulsating rate from site. Will obtain coags, cmp, and CBC. Vascular contacted regarding patient status for recommendations given recent fistulogram with ballooning. Vascular to bedside with litigation of bleeding site. Vascular surgeon recommended admission for observationor surgery at this time. Spoke with Dr. Velez on for [facility] services covering for patient's primary care provider who is accepting of admission advise consult nephrology for dialysis orders. CBCs stable with a hemoglobin of 10.5 platelet count low at 144 but stable. Coags normal. CMP reveals chronic renal failure creatinine 5.81, BUN 54, electrolytes normal. No indication for further diagnostic imaging or laboratory studies at this time. Will admit patient to observation unit under [facility] services with vascular and nephrology consult for continued monitoring and treatment of AV fistula malfunction. Undiagnosed new problem with uncertain prognosis? @ -No Drug Therapy requiring intensive monitoring for toxicity (Heparin, Nitro, Insulin, Cardizem)? @ -No Were any procedures done? @ -No Diagnosis/symptom? @ -Right arm AV fistula malfunction Acute, or Chronic, or Acute on Chronic? @ -Acute Uncomplicated (without systemic symptoms) or Complicated (systemic symptoms)? @ -Complicated Side effects of treatment? @ -No Exacerbation, Progression, or Severe Exacerbation? @ -No Poses a threat to life or bodily function? How? (Chest pain, USA, NH, pneumonia, PE, COPD, DKA, ARF, appy, cholecystitis, CVA, Diverticulitis, Homicidal, Suicidal, threat to staff... and all critical care pts) @ -Yes, risk for continued bleeding and severe anemia along with inability to undergo dialysis. Case discussed with Dr. Mitchell. - Lab Data Result diagrams: 12/03/22 12:40 12/03/22 12:40 Lab Results 12/03/22 12/03/22 12/03/22 Range/Units 12:40 12:40 12:40 WBC 7.2 (3.8-10.6) k/uL RBC 2.94 L (3.80-5.40) m/uL Hgb 10.5 L (11.4-16.0) gm/dL Hct 32.3 L (34.0-46.0) % MCV 109.9 H (80.0-100.0) fL MCH 35.6 H (25.0-35.0) pg MCHC 32.4 (31.0-37.0) g/dL RDW 15.7 H (11.5-15.5) % Plt Count 144 L (150-450) k/uL MPV 9.1 Neutrophils % 71 % Lymphocytes % 21 % Monocytes % 5 % Eosinophils % 2 % Basophils % 0 % Neutrophils # 5.1 (1.3-7.7) k/uL Lymphocytes # 1.5 (1.0-4.8) k/uL Monocytes # 0.3 (0-1.0) k/uL Eosinophils # 0.1 (0-0.7) k/uL Basophils # 0.0 (0-0.2) k/uL Macrocytosis Marked A PT 10.5 (9.0-12.0) sec INR 1.0 (<1.2) APTT 24.6 (22.0-30.0) sec Sodium 137 (137-145) mmol/L Potassium 3.8 (3.5-5.1) mmol/L Chloride 98 (98-107) mmol/L Carbon Dioxide 25 (22-30) mmol/L Anion Gap 14 mmol/L BUN 54 H (7-17) mg/dL Creatinine 5.81 H (0.52-1.04) mg/dL Est GFR (CKD-EPI)AfAm 7 (>60 ml/min/1.73 sqM) Est GFR (CKD-EPI)NonAf 6 (>60 ml/min/1.73 sqM) Glucose 252 H (74-99) mg/dL POC Glucose (mg/dL) (70-110) mg/dL POC Glu Extrusion Die Template Maker ID Calcium 7.0 L (8.4-10.2) mg/dL Total Bilirubin 0.6 (0.2-1.3) mg/dL AST 18 (14-36) U/L ALT 20 (4-34) U/L Alkaline Phosphatase 99 (38-126) U/L Total Protein 5.7 L (6.3-8.2) g/dL Albumin 3.3 L (3.5-5.0) g/dL 12/03/22 Range/Units 14:05 WBC (3.8-10.6) k/uL RBC (3.80-5.40) m/uL Hgb (11.4-16.0) gm/dL Hct (34.0-46.0) % MCV (80.0-100.0) fL MCH (25.0-35.0) pg MCHC (31.0-37.0) g/dL RDW (11.5-15.5) % Plt Count (150-450) k/uL MPV Neutrophils % % Lymphocytes % % Monocytes % % Eosinophils % % Basophils % % Neutrophils # (1.3-7.7) k/uL Lymphocytes # (1.0-4.8) k/uL Monocytes # (0-1.0) k/uL Eosinophils # (0-0.7) k/uL Basophils # (0-0.2) k/uL Macrocytosis PT (9.0-12.0) sec INR (<1.2) APTT (22.0-30.0) sec Sodium (137-145) mmol/L Potassium (3.5-5.1) mmol/L Chloride (98-107) mmol/L Carbon Dioxide (22-30) mmol/L Anion Gap mmol/L BUN (7-17) mg/dL Creatinine (0.52-1.04) mg/dL Est GFR (CKD-EPI)AfAm (>60 ml/min/1.73 sqM) Est GFR (CKD-EPI)NonAf (>60 ml/min/1.73 sqM) Glucose (74-99) mg/dL POC Glucose (mg/dL) 220 H (70-110) mg/dL POC Glu Extrusion Die Template Maker ID Sivakumar Mackenzie Calcium (8.4-10.2) mg/dL Total Bilirubin (0.2-1.3) mg/dL AST (14-36) U/L ALT (4-34) U/L Alkaline Phosphatase (38-126) U/L Total Protein (6.3-8.2) g/dL Albumin (3.5-5.0) g/dL Disposition Clinical Impression: Dialysis AV fistula malfunction Disposition: ADMITTED IP TO THIS HOSP Condition: Stable Is patient prescribed a controlled substance at d/c from ED?: No Time of Disposition: 13:12
[2022-12-03 14:08] LABS: Glucose,Whole Blood 220 mg/dL (70-110)
[2022-12-03] MEDS ORDERED: ACETAMINOPHEN TAB 325 MG TAB PO PRN (14:44)
[2022-12-03] MEDS ORDERED: CALCIUM CARBONATE 500 MG CHEWABLE PO PRN (14:44)
[2022-12-03] MEDS ORDERED: bisacodyL 10 MG SUPP RECTAL PRN (14:44)
[2022-12-03] MEDS ORDERED: guaiFENesin SYRUP 100MG/5ML 200 MG/10 ML CUP PO PRN (14:44)
[2022-12-03] MEDS ORDERED: ONDANSETRON 4 MG TAB PO PRN (14:44)
--- NOTE | 2022-12-03 14:59 | P.GSCN ---
History of Present Illness Consult date: 12/03/22 Reason for Consult: Bleeding fistula Requesting physician: Jackie Farfan History of present illness: Pleasant 87-year-old female presented to the emergency department with concerns for right upper extremity bleeding from her fistula. Patient was planning on going to dialysis however he had bleeding. Patient has end-stage renal disease requiring dialysis on Friday schedule. Right upper extremity fistula was placed by the [facility] in [place]. She believes it was around 2019. His last week she underwent a fistulogram with balloon angioplasty at [facility] with Dr. Tamayo. She otherwise follows with Dr. Bunn in the office. She does have a history of a previous brachial fistula in [address] Argueta but since then has followed with the [facility] out of [place] and has a right AV fistula. Patient states bleeding started right prior to coming into the emergency department, it was pulsatile. Patient denies any previous bleeding from fistula, she is on Eliquis for history of atrial fibrillation. Currently denies any chest pain, shortness of breath, dizziness or weakness. Past Medical History Past Medical History: Atrial Fibrillation, Heart Failure, CVA/TIA, Diabetes Mellitus, Dialysis, Deep Vein Thrombosis (DVT), GERD/Reflux, Hyperlipidemia, Hypertension, Myocardial Infarction (CO), Osteoarthritis (OA), Pulmonary Embolus (PE), Renal Disease, Rheumatoid Arthritis (RA), Sleep Apnea/CPAP/BIPAP, Thyroid Disorder Additional Past Medical History / Comment(s): on 02/06/20 with UTI/ESBL/bacteremia. Other hx: IDDM type II, diabetic neuropathy bilateral hands/feet, ESRD with hemodialysis, recurrent UTIs, pt was told she had a past [place] d/t EKG, palpitations, SSS with pacer, HARRIS with Cpap, chronic back and bilateral knee pain, hypothyroid. bilat carotid artery occlusions and a stroke she was unaware of Last Myocardial Infarction Date:: unknown History of Any Multi-Drug Resistant Organisms: ESBL, MRSA, VRE Year Discovered:: 02/01/21 VRE & MRSA at [facility] MDRO Source:: URINE-VRE & MRSA Past Surgical History: Bladder Surgery, Hysterectomy, Pacemaker Additional Past Surgical History / Comment(s): 02/01/20 R upper arm fistula repositioned, R chest boone cath, rectocele, cystocele, hemorrhoidectomy, bilateral leg vein strippings, bilateral cataract removal, Picc lines, bladder biopsy Past Anesthesia/Blood Transfusion Reactions: No Reported Reaction Type of Cardiac Device: Permanent Pacemaker Device Placement Date:: 01/2017 Past Psychological History: No Psychological Hx Reported Smoking Status: Never smoker Past Alcohol Use History: None Reported Past Drug Use History: None Reported - Past Family History Father Family Medical History: AFIB, AICD/Pacemaker, Congestive Heart Failure (CHF), Coronary Artery Disease (CAD), Diabetes Mellitus, Dialysis, Deep Vein Thrombosis (DVT), Hyperlipidemia, Hypertension, Myocardial Infarction (CO), Rheumatoid Arthritis (RA) Mother Family Medical History: Unable to Obtain Sister(s) Family Medical History: Cancer Medications and Allergies Home Medications Medication Instructions Recorded Confirmed Type Levothyroxine Sodium [Synthroid] 100 mcg PO DAILY 01/31/14 12/03/22 History allopurinoL [Zyloprim] 100 mg PO AC-BRKFST 01/18/17 12/03/22 History Calcium Acetate [PhosLo] 2,001 mg PO TID-W/MEALS 05/25/20 12/03/22 History Mirtazapine [Remeron] 15 mg PO HS 05/25/20 12/03/22 History Calcium Carbonate [Tums] 1,000 mg PO QID PRN 01/10/21 12/03/22 History Cholecalciferol [Vitamin D3 (25 100 mcg PO AC-LUNCH 01/10/21 12/03/22 History Mcg = 1000 Iu)] Folic Acid-Vit B Complex-Vit C 1 cap PO AC-LUNCH 01/10/21 12/03/22 History [Nephrocaps] Cyanocobalamin [Vitamin B-12] 500 mcg PO DAILY #30 tab 02/06/21 12/03/22 Rx Lidocaine-Prilocaine Cream [Emla 1 applic TOPICAL DAILY PRN 02/19/21 12/03/22 History Cream 2.5%/2.5%] Apixaban [Eliquis] 2.5 mg PO BID@0800,1700 03/21/21 12/03/22 History Acetaminophen [Tylenol 8 Hour] 650 mg PO Q4H PRN 12/03/22 12/03/22 History Amiodarone [Cordarone] 200 mg PO DAILY@1700 12/03/22 12/03/22 History Atorvastatin [Lipitor] 20 mg PO HS 12/03/22 12/03/22 History Biotin 10 mg PO DAILY@1700 12/03/22 12/03/22 History Chlorhexidine Gluconate [Hibiclens] 1 applic TOPICAL MOWESA 12/03/22 12/03/22 History Docusate [Colace] 100 mg PO BID@0800,1700 12/03/22 12/03/22 History Gabapentin [Neurontin] 100 mg PO DAILY@1700 12/03/22 12/03/22 History Gabapentin [Neurontin] 200 mg PO DAILY@0800 12/03/22 12/03/22 History Glucerna Shake 1 can PO TUTHSA@1000 12/03/22 12/03/22 History INSULIN LISPRO (HumaLOG) [humaLOG] See Protocol SQ AC-TID 12/03/22 12/03/22 History Insulin Glargine [Lantus Vial] 15 unit SQ HS 12/03/22 12/03/22 History Loratadine [Claritin] 10 mg PO Q2D 12/03/22 12/03/22 History Midodrine HCl [ProAmatine] 10 mg PO DAILY 12/03/22 12/03/22 History Mirabegron [Myrbetriq] 25 mg PO DAILY 12/03/22 12/03/22 History Nystatin 100,000 Unit/gm Powd 1 applic TOPICAL TID 12/03/22 12/03/22 History [Mycostatin Powder] Ondansetron [Zofran] 4 mg PO DAILY PRN 12/03/22 12/03/22 History Potassium Chloride [Klor-Con M20] 20 meq PO DAILY@169912/03/22 12/03/22 History Sodium Chloride 5% Ophth Soln 1 drop BOTH EYES BID@0800,1700 12/03/22 12/03/22 History [Nikko 128] Torsemide [Demadex] 60 mg PO DAILY@169912/03/22 12/03/22 History bisacodyL [Dulcolax] 10 mg RECTAL DAILY PRN 12/03/22 12/03/22 History guaiFENesin [guaiFENesin Oral 200 mg PO Q4H PRN 12/03/22 12/03/22 History Solution] metroNIDAZOLE 0.75% CREAM 1 applic TOPICAL BID PRN 12/03/22 12/03/22 History [Metrocream 0.75%] Allergies Allergy/AdvReac Type Severity Reaction Status Date / Time amoxicillin Allergy Rash/Hives Verified 12/03/22 13:03 Penicillins Allergy Rash/Hives Verified 12/03/22 13:03 Sulfa (Sulfonamide Allergy Rash/Hives Verified 12/03/22 13:03 Antibiotics) meperidine HCl [From Demerol] AdvReac Nausea & Verified 12/03/22 13:03 Vomiting Surgical - Exam Vital Signs Temp Pulse Resp BP Pulse Ox 97.9 F 77 16 121/66 97 12/03/22 10:54 12/03/22 10:54 12/03/22 10:54 12/03/22 10:54 12/03/22 10:54 General appearance: The patient is alert, oriented, appears in no acute distress. HET: Head is normocephalic and atraumatic. Pupils are equal and reactive. Neck: Supple. Heart: Regular. Lungs: Equal expansion, normal respiratory effort. Abdomen: Soft, nontender, nondistended. Extremities: Normal skin color and turgor. Palpable radial pulse. Right upper extremity with AV fistula, with scarring and scabbing. Distal aspect small ulceration with pulsatile bleeding. The suture in the proximal aspect of the fistula. Palpable thrill. Neurological: No focal deficits. Alert and oriented 3. Results - Labs 12/03/22 12:40 12/03/22 12:40 Assessment and Plan Assessment: 1. Bleeding fistula from small ulceration 2. End-stage renal disease requiring hemodialysis 3. Recent right upper extremity fistulogram and balloon angioplasty 4. History atrial fibrillation on Eliquis Plan: Patient seen and examined in the emergency room with tournaquet present. When removed patient had pulsatile bleeding pressure was applied. Suture was placed with good hemostasis. See procedure note from Dr. Ramirez. Consult to nephrology for hemodialysis. Patient is otherwise cleared for discharge if no further bleeding. Patient to follow-up with Dr. Bunn in the office as scheduled. The impression and plan of care has been dictated as directed. Dr. Ramirez I performed a history and examination of this patient, discussed the same with the dictator. I agree with the dictator's note ,documented as a scribe. Any additional findings or plans will be noted.
[2022-12-03] MEDS ORDERED: LORATADINE 10 MG TAB PO SCH (15:00)
--- NOTE | 2022-12-03 16:28 | P.NPCON ---
History of Present Illness - Reason for Consult end stage renal disease - History of Present Illness Reason for consultation: End-stage renal disease History of present illness: Patient is a 87-year-old female seen in renal consultation for end-stage renal disease. She was seen and examined in the emergency room. She is maintained on hemodialysis on Friday schedule. Patient resides at [facility]. Patient states she applied lidocaine cream this morning and noticed bleeding from her fistula site. She was subsequently sent to the hospital. She was seen by vascular surgery and suture was applied earlier today. There is no active bleeding at this time. Patient denies chest pain or shortness of breath. Potassium level III.8. No vomiting or diarrhea. Hemodynamically stable. Patient has long-standing history of diabetes mellitus. Currently she is resting in bed. She is on room air. She has no active complaints. She denies any trauma. Vital signs are stable. General: No acute distress. HEENT: Head exam is unremarkable. LUNGS: No audible rhonchi or wheezes. HEART: Rate and Rhythm are regular. ABDOMEN: Soft, no distention. EXTREMITITES: Trace edema. Past Medical History Past Medical History: Atrial Fibrillation, Heart Failure, CVA/TIA, Diabetes Mellitus, Dialysis, Deep Vein Thrombosis (DVT), GERD/Reflux, Hyperlipidemia, Hypertension, Myocardial Infarction ([place]), Osteoarthritis (OA), Pulmonary Embolus (PE), Renal Disease, Rheumatoid Arthritis (RA), Sleep Apnea/CPAP/BIPAP, Thyroid Disorder Additional Past Medical History / Comment(s): on 02/06/20 with UTI/ESBL/bacteremia. Other hx: IDDM type II, diabetic neuropathy bilateral hands/feet, ESRD with hemodialysis, recurrent UTIs, pt was told she had a past NC d/t EKG, palpitations, SSS with pacer, HARRIS with Cpap, chronic back and bilateral knee pain, hypothyroid. bilat carotid artery occlusions and a stroke she was unaware of Last Myocardial Infarction Date:: unknown History of Any Multi-Drug Resistant Organisms: ESBL, MRSA, VRE Date of last positivie culture/infection: 02/01/21 VRE & MRSA at [facility] MDRO Source:: URINE-VRE & MRSA Past Surgical History: Bladder Surgery, Hysterectomy, Pacemaker Additional Past Surgical History / Comment(s): 02/01/20 R upper arm fistula repositioned, R chest boone cath, rectocele, cystocele, hemorrhoidectomy, bilateral leg vein strippings, bilateral cataract removal, Picc lines, bladder biopsy Past Anesthesia/Blood Transfusion Reactions: No Reported Reaction Type of Cardiac Device: Permanent Pacemaker Device Placement Date:: 01/2017 Past Psychological History: No Psychological Hx Reported Smoking Status: Never smoker Past Alcohol Use History: None Reported Past Drug Use History: None Reported - Past Family History Father Family Medical History: AFIB, AICD/Pacemaker, Congestive Heart Failure (CHF), Coronary Artery Disease (CAD), Diabetes Mellitus, Dialysis, Deep Vein Thrombosis (DVT), Hyperlipidemia, Hypertension, Myocardial Infarction (NC), Rheumatoid Arthritis (RA) Mother Family Medical History: Unable to Obtain Sister(s) Family Medical History: Cancer Medications and Allergies Home Medications Medication Instructions Recorded Confirmed Type Levothyroxine Sodium [Synthroid] 100 mcg PO DAILY 01/31/14 12/03/22 History allopurinoL [Zyloprim] 100 mg PO AC-BRKFST 01/18/17 12/03/22 History Calcium Acetate [PhosLo] 2,001 mg PO TID-W/MEALS 05/25/20 12/03/22 History Mirtazapine [Remeron] 15 mg PO HS 05/25/20 12/03/22 History Calcium Carbonate [Tums] 1,000 mg PO QID PRN 01/10/21 12/03/22 History Cholecalciferol [Vitamin D3 (25 100 mcg PO AC-LUNCH 01/10/21 12/03/22 History Mcg = 1000 Iu)] Folic Acid-Vit B Complex-Vit C 1 cap PO AC-LUNCH 01/10/21 12/03/22 History [Nephrocaps] Cyanocobalamin [Vitamin B-12] 500 mcg PO DAILY #30 tab 02/06/21 12/03/22 Rx Lidocaine-Prilocaine Cream [Emla 1 applic TOPICAL DAILY PRN 02/19/21 12/03/22 Hi story Cream 2.5%/2.5%] Apixaban [Eliquis] 2.5 mg PO BID@0800,1700 03/21/21 12/03/22 History Acetaminophen [Tylenol 8 Hour] 650 mg PO Q4H PRN 12/03/22 12/03/22 History Amiodarone [Cordarone] 200 mg PO DAILY@1700 12/03/22 12/03/22 History Atorvastatin [Lipitor] 20 mg PO HS 12/03/22 12/03/22 History Biotin 10 mg PO DAILY@1700 12/03/22 12/03/22 History Chlorhexidine Gluconate [Hibiclens] 1 applic TOPICAL MOWESA 12/03/22 12/03/22 History Docusate [Colace] 100 mg PO BID@0800,1700 12/03/22 12/03/22 History Gabapentin [Neurontin] 100 mg PO DAILY@1700 12/03/22 12/03/22 History Gabapentin [Neurontin] 200 mg PO DAILY@0800 12/03/22 12/03/22 History Glucerna Shake 1 can PO TUTHSA@1000 12/03/22 12/03/22 History INSULIN LISPRO (HumaLOG) [humaLOG] See Protocol SQ AC-TID 12/03/22 12/03/22 History Insulin Glargine [Lantus Vial] 15 unit SQ HS 12/03/22 12/03/22 History Loratadine [Claritin] 10 mg PO Q2D 12/03/22 12/03/22 History Midodrine HCl [ProAmatine] 10 mg PO DAILY 12/03/22 12/03/22 History Mirabegron [Myrbetriq] 25 mg PO DAILY 12/03/22 12/03/22 History Nystatin 100,000 Unit/gm Powd 1 applic TOPICAL TID 12/03/22 12/03/22 History [Mycostatin Powder] Ondansetron [Zofran] 4 mg PO DAILY PRN 12/03/22 12/03/22 History Potassium Chloride [Klor-Con M20] 20 meq PO DAILY@169912/03/22 12/03/22 History Sodium Chloride 5% Ophth Soln 1 drop BOTH EYES BID@0800,1700 12/03/22 12/03/22 History [Nikko 128] Torsemide [Demadex] 60 mg PO DAILY@0 12/03/22 12/03/22 History bisacodyL [Dulcolax] 10 mg RECTAL DAILY PRN 12/03/22 12/03/22 History guaiFENesin [guaiFENesin Oral 200 mg PO Q4H PRN 12/03/22 12/03/22 History Solution] metroNIDAZOLE 0.75% CREAM 1 applic TOPICAL BID PRN 12/03/22 12/03/22 History [Metrocream 0.75%] Allergies Allergy/AdvReac Type Severity Reaction Status Date / Time amoxicillin Allergy Rash/Hives Verified 12/03/22 13:03 Penicillins Allergy Rash/Hives Verified 12/03/22 13:03 Sulfa (Sulfonamide Allergy Rash/Hives Verified 12/03/22 13:03 Antibiotics) meperidine HCl [From Demerol] AdvReac Nausea & Verified 12/03/22 13:03 Vomiting Physical Exam Vitals: Vital Signs Temp Pulse Resp BP Pulse Ox 12/03/22 15:00 97 F L 80 99 H 143/68 100 12/03/22 10:54 97.9 F 77 16 121/66 97 Intake and Output 12/03/22 12/03/22 12/03/22 06:59 14:59 22:59 Other: Weight 91.172 kg Results - Lab Results Most recent lab results Calcium 7.0 mg/dL (8.4-10.2) L 12/03/22 12:40 12/03/22 12:40 12/03/22 12:40 Assessment and Plan Plan: Assessment: 1. End-stage renal disease maintained on hemodialysis on Friday schedule AV fistula. 2. Bleeding from the AV fistula. Seen by vascular surgery. Suture placed. No active bleeding. 3. Anemia of chronic kidney disease. Hemoglobin at goal. 4. Chronic kidney disease mineral bone disease maintained on PhosLo. 5. History of A. fib on amiodarone. 6. Diabetes mellitus. Plan: Hemodialysis tomorrow. Maintain torsemide. Potential discharge after dialysis tomorrow. Thank you for the consultation. I will continue to follow the patient with you during her hospital stay.
[2022-12-03] MEDS: DOCUSATE 100 MG CAP PO SCH (16:54)
[2022-12-03] MEDS: CALCIUM ACETATE 667 MG TAB PO SCH (16:54)
[2022-12-03] MEDS ORDERED: POTASSIUM CHLORIDE ER 20 MEQ TAB.ER PO SCH (17:00)
[2022-12-03] MEDS ORDERED: NON FORMULARY DRUG (Biotin [Biotin] 5 MG Capsule) PO SCH (17:00)
[2022-12-03] MEDS ORDERED: AMIODARONE 200 MG TAB PO SCH (17:00)
[2022-12-03] MEDS ORDERED: GABAPENTIN 100 MG CAP PO SCH (17:00)
[2022-12-03] MEDS ORDERED: TORSEMIDE 20 MG TAB PO SCH (17:00)
[2022-12-03] MEDS: SODIUM CHLORIDE 5% OPHTH DROPS 15 ML BTL BOTH EYES SCH (17:03)
[2022-12-03] MEDS ORDERED: MIRTAZAPINE 15 MG TAB PO SCH (21:00)
[2022-12-03] MEDS ORDERED: INSULIN DETEMIR (LEVEMIR) 100 UNIT/ML SYR SQ SCH (21:00)
[2022-12-03] MEDS ORDERED: ATORVASTATIN 20 MG TAB PO SCH (21:00)
[2022-12-03 22:41] LABS: Glucose,Whole Blood 183 mg/dL (70-110)
--- NOTE | 2022-12-04 01:24 | HP ---
HISTORY AND PHYSICAL CHIEF COMPLAINTS: Bleeding from the AV fistula HISTORY OF PRESENT ILLNESS: This is an 87-year-old woman with a past medical history of multiple medical issues, chronic renal hemodialysis, was noted to have bleeding from the cyst on the right side. The patient was taken to [facility]. Hemoglobin is stable. Dr. Ramirez saw the patient and inserted a stitch which controlled the bleeding at this time. There is no history of any fever, rigors, or chills. PAST MEDICAL HISTORY: Reviewed include chronic renal failure, atrial fibrillation, CHF. Rest of the history and rest of the chart is also reviewed. HOME MEDICATIONS: Reviewed include Zofran, doses and rest of medications noted. ALLERGIES: Reviewed, rest of allergies noted. FAMILY HISTORY: Reviewed includes CHF, rest of the family history noted. SOCIAL HISTORY: No history of smoking or alcohol. REVIEW OF SYSTEMS: A 14-point review is negative except as mentioned earlier. PHYSICAL EXAMINATION: VITAL SIGNS: Pulse is 77, blood pressure 121/66, and respirations 16. NECK: No jugular venous distention. CARDIOVASCULAR: S1, S2. RESPIRATIONS: Clear to auscultation. ABDOMEN: Soft, obese. LEGS: No edema, no swelling. NERVOUS SYSTEM: No focal deficit. SKIN: Right AV fistula present, bandaged. No active bleeding at this time. LABS: Reviewed, hemoglobin 10.4. ASSESSMENT: 1. Bleeding from the right AV fistula. 2. Chronic kidney disease, end-stage renal disease, on hemodialysis. 3. History of atrial fibrillation. 4. Diabetes mellitus, type 2. 5. History of DVT. 6. Hypertension. 7. Multiple medical issues. RECOMMENDATIONS AND DISCUSSION: This 87-year-old woman presented with multiple complex medical issues, we will monitor the patient closely. Continue the current management, continue symptomatic treatment. Repeat labs in the morning. Otherwise, we will recommend to resume the home medications once they are confirmed and nephrology evaluation for continued hemodialysis. Prognosis guarded. Further recommendations to follow. MMODL / IJN: [id number] / MTDD
[2022-12-04] MEDS ORDERED: LEVOTHYROXINE 100 MCG TAB PO SCH (06:30)
[2022-12-04] MEDS: CALCIUM ACETATE 667 MG TAB PO SCH ×2 (06:38→12:40)
[2022-12-04 07:12] LABS: Glucose,Whole Blood 80 mg/dL (70-110)
[2022-12-04] MEDS ORDERED: allopurinoL 100 MG TAB PO SCH (07:30)
[2022-12-04 07:55] LABS: Basophils % (A) 0 %; Eosinophils # (A) 0.1 k/uL (0-0.7); Eosinophils % (A) 2 %; HCT 30.5 % (34.0-46.0); HGB 9.7 gm/dL (11.4-16.0); Lymphocytes # (A) 1.6 k/uL (1.0-4.8); Lymphocytes % (A) 20 %; MCHC 31.9 g/dL (31.0-37.0); MCV 109.9 fL (80.0-100.0); Macrocytosis Marked; Mean Platelet Volume 8.8; Monocytes # (A) 0.4 k/uL (0-1.0); Monocytes % (A) 5 %; Neutrophils # (A) 5.8 k/uL (1.3-7.7); Neutrophils % (A) 71 %; Platelet Count 154 k/uL (150-450); RBC 2.78 m/uL (3.80-5.40); RDW 15.2 % (11.5-15.5); WBC 8.1 k/uL (3.8-10.6)
[2022-12-04 07:57] LABS: African American GFR (CKD) 7 (>60 ml/min/1.73 sqM); Anion Gap 15 mmol/L; Blood Urea Nitrogen 60 mg/dL (7-17); Calcium 6.8 mg/dL (8.4-10.2); Carbon Dioxide 20 mmol/L (22-30); Chloride 103 mmol/L (98-107); Glucose 63 mg/dL (74-99); Non-African American GFR(CKD) 6 (>60 ml/min/1.73 sqM); Potassium 4.3 mmol/L (3.5-5.1); Sodium 138 mmol/L (137-145)
[2022-12-04] MEDS ORDERED: GABAPENTIN 100 MG CAP PO SCH (08:00)
[2022-12-04] MEDS ORDERED: NON FORMULARY DRUG (Mirabegron [Myrbetriq] 25 MG Tab.Er.24h) PO SCH (09:00)
[2022-12-04] MEDS ORDERED: CYANOCOBALAMIN 500 MCG TAB PO SCH (09:00)
[2022-12-04] MEDS ORDERED: MIDODRINE 5 MG TAB PO SCH (09:00)
--- NOTE | 2022-12-04 10:18 | P.PN ---
Subjective Progress Note Date: 12/04/22 Principal diagnosis: Bleeding fistula Patient seen and examined today as a follow-up for bleeding right upper extremity fistula. Suture in place with no further bleeding. Patient is currently undergoing hemodialysis. No other complaints at this time. Hemoglobin stable at 9.7. Objective - Vital Signs Vital signs: Vital Signs Temp 98 F 12/04/22 07:00 Pulse 84 12/04/22 07:00 Resp 18 12/04/22 07:00 BP 105/66 12/04/22 07:00 Pulse Ox 100 12/04/22 07:00 FiO2 Intake & Output 12/03/22 12/04/22 12/04/22 18:59 06:59 18:59 Intake Total 120 Balance 120 Weight 91.172 kg 91.172 kg Intake: Oral 120 Other: # Voids 0 0 # Bowel Movements 0 - Exam General appearance: The patient is alert, oriented, appears in no acute distress. HET: Head is normocephalic and atraumatic. Pupils are equal and reactive. Neck: Supple. Heart: Regular. Lungs: Equal expansion, normal respiratory effort. Abdomen: Soft, nontender, nondistended. Extremities: Normal skin color and turgor. Right upper extremity fistula suture intact, dressing in place clean dry and intact. No bleeding. Palpable thrill. Currently undergoing hemodialysis. Neurological: No focal deficits. - Labs CBC & Chem 7: 12/04/22 06:15 12/04/22 06:15 Labs: Abnormal Lab Results - Last 24 Hours (Table) 12/03/22 12/03/22 12/03/22 Range/Units 12:40 12:40 14:05 RBC 2.94 L (3.80-5.40) m/uL Hgb 10.5 L (11.4-16.0) gm/dL Hct 32.3 L (34.0-46.0) % MCV 109.9 H (80.0-100.0) fL MCH 35.6 H (25.0-35.0) pg RDW 15.7 H (11.5-15.5) % Plt Count 144 L (150-450) k/uL Macrocytosis Marked A Carbon Dioxide (22-30) mmol/L BUN 54 H (7-17) mg/dL Creatinine 5.81 H (0.52-1.04) mg/dL Glucose 252 H (74-99) mg/dL POC Glucose (mg/dL) 220 H (70-110) mg/dL Calcium 7.0 L (8.4-10.2) mg/dL Total Protein 5.7 L (6.3-8.2) g/dL Albumin 3.3 L (3.5-5.0) g/dL 12/03/22 12/04/22 12/04/22 Range/Units 22:39 06:15 06:15 RBC 2.78 L (3.80-5.40) m/uL Hgb 9.7 L (11.4-16.0) gm/dL Hct 30.5 L (34.0-46.0) % MCV 109.9 H (80.0-100.0) fL MCH (25.0-35.0) pg RDW (11.5-15.5) % Plt Count (150-450) k/uL Macrocytosis Marked A Carbon Dioxide 20 L (22-30) mmol/L BUN 60 H (7-17) mg/dL Creatinine 6.00 H (0.52-1.04) mg/dL Glucose 63 L (74-99) mg/dL POC Glucose (mg/dL) 183 H (70-110) mg/dL Calcium 6.8 L (8.4-10.2) mg/dL Total Protein (6.3-8.2) g/dL Albumin (3.5-5.0) g/dL Assessment and Plan Assessment: 1. Bleeding fistula from small ulceration status post suture repair 2. End-stage renal disease requiring hemodialysis 3. Recent right upper extremity fistulogram and balloon angioplasty 4. History atrial fibrillation on Eliquis Plan: Right upper extremity fistula without any further bleeding. Patient is cleared from vascular surgery for discharge after hemodialysis. She is to follow-up with Dr. Bunn in the office as scheduled. The impression and plan of care has been dictated as directed. Dr. Ramirez I performed a history and examination of this patient, discussed the same with the dictator. I agree with the dictator's note ,documented as a scribe. Any additional findings or plans will be noted.
--- NOTE | 2022-12-04 11:10 | P.PN ---
Subjective Patient is seen in follow-up for her incisional disease. She's made to not hemodialysis on Friday schedule. Tolerating dialysis well. No bleeding from the fistula site. Vital signs are stable. General: No acute distress. HEENT: Head exam is unremarkable. LUNGS: No audible rhonchi or wheezes. HEART: Rate and Rhythm are regular. ABDOMEN: No distention. EXTREMITITES: No edema. Objective - Vital Signs Vital signs: Vital Signs Temp 98 F 12/04/22 07:00 Pulse 84 12/04/22 08:00 Resp 18 12/04/22 08:00 BP 105/66 12/04/22 07:00 Pulse Ox 100 12/04/22 07:00 FiO2 Intake & Output 12/03/22 12/04/22 12/04/22 18:59 06:59 18:59 Intake Total 120 Balance 120 Weight 91.172 kg 91.172 kg Intake: Oral 120 Other: # Voids 0 0 # Bowel Movements 0 - Labs CBC & Chem 7: 12/04/22 06:15 12/04/22 06:15 Labs: Abnormal Lab Results - Last 24 Hours (Table) 12/03/22 12/03/22 12/03/22 Range/Units 12:40 12:40 14:05 RBC 2.94 L (3.80-5.40) m/uL Hgb 10.5 L (11.4-16.0) gm/dL Hct 32.3 L (34.0-46.0) % MCV 109.9 H (80.0-100.0) fL MCH 35.6 H (25.0-35.0) pg RDW 15.7 H (11.5-15.5) % Plt Count 144 L (150-450) k/uL Macrocytosis Marked A Carbon Dioxide (22-30) mmol/L BUN 54 H (7-17) mg/dL Creatinine 5.81 H (0.52-1.04) mg/dL Glucose 252 H (74-99) mg/dL POC Glucose (mg/dL) 220 H (70-110) mg/dL Calcium 7.0 L (8.4-10.2) mg/dL Total Protein 5.7 L (6.3-8.2) g/dL Albumin 3.3 L (3.5-5.0) g/dL 12/03/22 12/04/22 12/04/22 Range/Units 22:39 06:15 06:15 RBC 2.78 L (3.80-5.40) m/uL Hgb 9.7 L (11.4-16.0) gm/dL Hct 30.5 L (34.0-46.0) % MCV 109.9 H (80.0-100.0) fL MCH (25.0-35.0) pg RDW (11.5-15.5) % Plt Count (150-450) k/uL Macrocytosis Marked A Carbon Dioxide 20 L (22-30) mmol/L BUN 60 H (7-17) mg/dL Creatinine 6.00 H (0.52-1.04) mg/dL Glucose 63 L (74-99) mg/dL POC Glucose (mg/dL) 183 H (70-110) mg/dL Calcium 6.8 L (8.4-10.2) mg/dL Total Protein (6.3-8.2) g/dL Albumin (3.5-5.0) g/dL Assessment and Plan Plan: Assessment: 1. End-stage renal disease maintained on hemodialysis on Friday schedule AV fistula. 2. Bleeding from the AV fistula. Seen by vascular surgery. Suture placed. No active bleeding. 3. Anemia of chronic kidney disease. 4. Chronic kidney disease mineral bone disease maintained on PhosLo. 5. History of A. fib on amiodarone. 6. Diabetes mellitus. Plan: Currently seen while undergoing hemodialysis. Another treatment tomorrow per her outpatient schedule. Maintain torsemide. Potential discharge after dialysis today. Resume DODIE outpatient.
[2022-12-04 12:16] LABS: Glucose,Whole Blood 117 mg/dL (70-110)
[2022-12-04] MEDS ORDERED: CHOLECALCIFEROL 25 MCG (1000 IU) TABLET PO SCH (12:30)
[2022-12-04] MEDS ORDERED: FOLIC ACID-VIT B COMPLEX-VIT C 1 CAP PO SCH (12:30)
[2022-12-04] MEDS: DOCUSATE 100 MG CAP PO SCH (12:40)
[2022-12-04] MEDS: SODIUM CHLORIDE 5% OPHTH DROPS 15 ML BTL BOTH EYES SCH (13:59)
--- NOTE | 2022-12-04 14:27 | P.DS ---
Providers Date of admission: 12/03/22 14:42 Expected date of discharge: 12/04/22 Attending physician: Luis E Velez Consults: 12/03/22 12:30 Consult Physician Stat Consulting Provider: Nba Ramirez Consult Reason/Comments: Dialysis access bleeding Do you want consulting provider notified?: Already Contacted 12/03/22 13:09 Consult Physician Stat Consulting Provider: Shaji Velazco Consult Reason/Comments: ESRD HD TTS Do you want consulting provider notified?: Yes Primary care physician: Gama Mcginnis Hospital Course: Final diagnosis Bleeding from the right AV fistula status post stitch with no further bleeding Chronic kidney disease, end-stage renal disease on hemodialysis history of atrial fibrillation Diabetes mellitus, type II history of DVT Hypertension History of heart failure History of CVA/TIA GERD Hyperlipidemia Discharge disposition Patient is being discharged in a stable condition with guarded prognosis to [facility]. Patient will follow-up with Dr. Mcginnis in the outpatient setting upon discharge. Patient is to continue with hemodialysis as scheduled and outpatient follow-up with nephrology. Patient okay to resume anticoagulation per vascular surgery. Total time taken is greater than 35 minutes. Hospital course This is a 87-year-old female who was recently admitted for fistula bleeding on the right side of her fistula hemodialysis site and was evaluated by vascular surgery. Patient did have a stitch placed and no further bleeding noted. On exam today follow-up during hemodialysis with nursing at the bedside with no noted bleeding wheezing or leakage and has been cleared by vascular surgery to resume anticoagulation and return back to [facility]. Patient continue on hemodialysis schedule an outpatient follow-up with nephrology. Please refer to other consultation notes for further HPI. Currently no reports of chest pain, shortness of breath, or palpitations. Patient is afebrile. No reports of nausea or vomiting and patient is tolerating diet. Patient will be going to [facility] today. Guarded prognosis. Physical exam: Gen: This is a 87-year-old female who is awake, alert and oriented 3, well- developed, well-nourished, obese HEENT: Head is atraumatic, normocephalic. Pupils equal, round. Sclerae is anicteric. NECK: Supple. No JVD. No lymphadenopathy. No thyromegaly. LUNGS: Diminished breath sounds bilaterally with no wheezes or rhonchi. No intercostal retractions. HEART: S1, S2 are muffled ABDOMEN: Soft. Bowel sounds are present. No masses. No tenderness. EXTREMITIES: No pedal edema. No calf tenderness. NEUROLOGICAL: Patient is awake, alert and oriented x3. Cranial nerves 2 through 12 are grossly intact. Diffusely weak Please refer to medication reconciliation sheet for a list of medications. The impression and plan of care has been dictated by Leslie Nelson, Nurse Practitioner as directed. Dr. Agustin MD I have performed a history and examination and MDM of this patient, discussed the same with the dictator, and agree with the dictator's assessment and plan as written ,documented as a scribe. Based on total visit time, I have performed more than 50% of the visit. Patient Condition at Discharge: Stable Plan - Discharge Summary New Discharge Prescriptions: Continue Levothyroxine Sodium [Synthroid] 100 mcg PO DAILY allopurinoL [Zyloprim] 100 mg PO AC-BRKFST Calcium Acetate [PhosLo] 2,001 mg PO TID-W/MEALS Mirtazapine [Remeron] 15 mg PO HS Cyanocobalamin [Vitamin B-12] 500 mcg PO DAILY #30 tab Atorvastatin [Lipitor] 20 mg PO HS Biotin 10 mg PO DAILY@1700 bisacodyL [Dulcolax] 10 mg RECTAL DAILY PRN PRN Reason: Constipation Glucerna Shake 1 can PO TUTHSA@1000 INSULIN LISPRO (HumaLOG) [humaLOG] See Protocol SQ AC-TID Loratadine [Claritin] 10 mg PO Q2D metroNIDAZOLE 0.75% CREAM [Metrocream 0.75%] 1 applic TOPICAL BID PRN PRN Reason: face rosacea Mirabegron [Myrbetriq] 25 mg PO DAILY Nystatin 100,000 Unit/gm Powd [Mycostatin Powder] 1 applic TOPICAL TID Potassium Chloride [Klor-Con M20] 20 meq PO DAILY@1700 Torsemide [Demadex] 60 mg PO DAILY@1700 Gabapentin [Neurontin] 100 mg PO DAILY@1700 #3 cap Calcium Carbonate [Tums] 1,000 mg PO QID PRN PRN Reason: between meals and snacks Folic Acid-Vit B Complex-Vit C [Nephrocaps] 1 cap PO AC-LUNCH Cholecalciferol [Vitamin D3 (25 Mcg = 1000 Iu)] 100 mcg PO AC-LUNCH Lidocaine-Prilocaine Cream [Emla Cream 2.5%/2.5%] 1 applic TOPICAL DAILY PRN PRN Reason: dialysis/avf access Apixaban [Eliquis] 2.5 mg PO BID@0800,1700 Acetaminophen [Tylenol 8 Hour] 650 mg PO Q4H PRN PRN Reason: general discomfort Amiodarone [Cordarone] 200 mg PO DAILY@1700 Chlorhexidine Gluconate [Hibiclens] 1 applic TOPICAL [place]OWESA Docusate [Colace] 100 mg PO BID@0800,1700 guaiFENesin [guaiFENesin Oral Solution] 200 mg PO Q4H PRN PRN Reason: Cough Insulin Glargine [Lantus Vial] 15 unit SQ HS Midodrine HCl [ProAmatine] 10 mg PO DAILY Sodium Chloride 5% Ophth Soln [Nikko 128] 1 drop BOTH EYES BID@0800,1700 Ondansetron [Zofran] 4 mg PO DAILY PRN PRN Reason: Nausea Gabapentin [Neurontin] 200 mg PO DAILY@0800 #3 cap Discharge Medication List Levothyroxine Sodium [Synthroid] 100 mcg PO DAILY 01/31/14 [History] allopurinoL [Zyloprim] 100 mg PO AC-BRKFST 01/18/17 [History] Calcium Acetate [PhosLo] 2,001 mg PO TID-W/MEALS 05/25/20 [History] Mirtazapine [Remeron] 15 mg PO HS 05/25/20 [History] Calcium Carbonate [Tums] 1,000 mg PO QID PRN 01/10/21 [History] Cholecalciferol [Vitamin D3 (25 Mcg = 1000 Iu)] 100 mcg PO AC-LUNCH 01/10/21 [History] Folic Acid-Vit B Complex-Vit C [Nephrocaps] 1 cap PO AC-LUNCH 01/10/21 [History] Cyanocobalamin [Vitamin B-12] 500 mcg PO DAILY #30 tab 02/06/21 [Rx] Lidocaine-Prilocaine Cream [Emla Cream 2.5%/2.5%] 1 applic TOPICAL DAILY PRN 02/19/21 [History] Apixaban [Eliquis] 2.5 mg PO BID@0800,1700 03/21/21 [History] Acetaminophen [Tylenol 8 Hour] 650 mg PO Q4H PRN 12/03/22 [History] Amiodarone [Cordarone] 200 mg PO DAILY@169912/03/22 [History] Atorvastatin [Lipitor] 20 mg PO HS 12/03/22 [History] Biotin 10 mg PO DAILY@17012/03/22 [History] Chlorhexidine Gluconate [Hibiclens] 1 applic TOPICAL MOWESA 12/03/22 [History] Docusate [Colace] 100 mg PO BID@0800,1700 12/03/22 [History] Glucerna Shake 1 can PO TUTHSA@1000 12/03/22 [History] INSULIN LISPRO (HumaLOG) [humaLOG] See Protocol SQ AC-TID 12/03/22 [History] Insulin Glargine [Lantus Vial] 15 unit SQ HS 12/03/22 [History] Loratadine [Claritin] 10 mg PO Q2D 12/03/22 [History] Midodrine HCl [ProAmatine] 10 mg PO DAILY 12/03/22 [History] Mirabegron [Myrbetriq] 25 mg PO DAILY 12/03/22 [History] Nystatin 100,000 Unit/gm Powd [Mycostatin Powder] 1 applic TOPICAL TID 12/03/22 [History] Ondansetron [Zofran] 4 mg PO DAILY PRN 12/03/22 [History] Potassium Chloride [Klor-Con M20] 20 meq PO DAILY@169912/03/22 [History] Sodium Chloride 5% Ophth Soln [Nikko 128] 1 drop BOTH EYES BID@0800,0 12/03/22 [History] Torsemide [Demadex] 60 mg PO DAILY@169912/03/22 [History] bisacodyL [Dulcolax] 10 mg RECTAL DAILY PRN 12/03/22 [History] guaiFENesin [guaiFENesin Oral Solution] 200 mg PO Q4H PRN 12/03/22 [History] metroNIDAZOLE 0.75% CREAM [Metrocream 0.75%] 1 applic TOPICAL BID PRN 12/03/22 [History] Gabapentin [Neurontin] 100 mg PO DAILY@170 #3 cap 12/04/22 [Rx] Gabapentin [Neurontin] 200 mg PO DAILY@0800 #3 cap 12/04/22 [Rx] Follow up Appointment(s)/Referral(s): Gama Mcginnis MD [Primary Care Provider] - 1-2 days Activity/Diet/Wound Care/Special Instructions: Patient is going to [facility] as tolerated Continue with renal diet and dialysis as scheduled Okay to resume anticoagulant per vascular surgery Discharge Disposition: TRANSFER TO SNF/ECF
[2022-12-04 14:36] VITALS: BP 133/67; PULSE 88; RESP 18; TEMP 98.2
[2022-12-04] MEDS ORDERED: CHLORHEXIDINE GLUCONATE TOPICAL SCH (14:44)
[2022-12-05] MEDS ORDERED: NON FORMULARY DRUG (Glucerna Shake 1 CAN Ml) PO SCH (10:00)
== END 2022-12-04 16:18 ==
LOC: EC 10:35 → 6NMEDSUR 14:42
PROVIDERS: ADMIT Hospitalist; ATTEND Hospitalist
DX: T82.838A Hemorrhage due to vascular prosthetic devices, implants and grafts, initial encounter (principal); I13.2 Hypertensive heart and chronic kidney disease with heart failure and with stage 5 chronic kidney disease, or end stage renal disease; I50.9 Heart failure, unspecified; N18.6 End stage renal disease; E78.5 Hyperlipidemia, unspecified; E11.22 Type 2 diabetes mellitus with diabetic chronic kidney disease; I48.91 Unspecified atrial fibrillation; E03.9 Hypothyroidism, unspecified; G47.33 Obstructive sleep apnea (adult) (pediatric); E11.42 Type 2 diabetes mellitus with diabetic polyneuropathy; K21.9 Gastro-esophageal reflux disease without esophagitis; M06.9 Rheumatoid arthritis, unspecified; D63.1 Anemia in chronic kidney disease; N25.0 Renal osteodystrophy; I25.2 Old myocardial infarction; E66.9 Obesity, unspecified; Z20.822 Contact with and (suspected) exposure to COVID-19; Z86.711 Personal history of pulmonary embolism; Z86.718 Personal history of other venous thrombosis and embolism; Z86.73 Personal history of transient ischemic attack (TIA), and cerebral infarction without residual deficits; Z87.440 Personal history of urinary (tract) infections; Z79.890 Hormone replacement therapy; Z79.01 Long term (current) use of anticoagulants; Z79.899 Other long term (current) drug therapy; Z79.4 Long term (current) use of insulin; Z88.0 Allergy status to penicillin; Z88.2 Allergy status to sulfonamides
CPT/HCPCS: 96372; 99285; 36415; 80053; 80048; 85025 ×2; 85610; 85730; 87635; G0378 ×2; 90935

== ENCOUNTER 2022-12-07 12:52 | Inpatient (IN) | payer MEDICARE ==
--- NOTE | 2022-12-07 13:25 | ED ---
General Adult HPI - General Stated complaint: Hemorrhage Time Seen by Provider: 12/07/22 12:55 Source: patient, RN notes reviewed, old records reviewed - History of Present Illness Initial comments: This is an 87-year-old female with a AV fistula in her right arm. While the patient was in the shower she scratched an open up and started bleeding heavily. Patient states she is on eliquis. Patient was transported with a tourniquet [facility] they removed the tourniquet and the patient continued to bleed heavily so they eventually wrapped under pressure and it is stopped most of the bleeding. Patient denies any difficulty breathing shortest breath per day patient denies any lightheadedness or dizziness. Patient is pain. - Related Data Home Medications Medication Instructions Recorded Confirmed Levothyroxine Sodium [Synthroid] 100 mcg PO DAILY 01/31/14 12/07/22 allopurinoL [Zyloprim] 100 mg PO AC-BRKFST 01/18/17 12/07/22 Calcium Acetate [PhosLo] 2,001 mg PO TID-W/MEALS 05/25/20 12/07/22 Mirtazapine [Remeron] 15 mg PO HS 05/25/20 12/07/22 Calcium Carbonate [Tums] 1,000 mg PO QID PRN 01/10/21 12/07/22 Cholecalciferol [Vitamin D3 (25 100 mcg PO AC-LUNCH 01/10/21 12/07/22 Mcg = 1000 Iu)] Folic Acid-Vit B Complex-Vit C 1 cap PO AC-LUNCH 01/10/21 12/07/22 [Nephrocaps] Apixaban [Eliquis] 2.5 mg PO BID@0800,1700 03/21/21 12/07/22 Acetaminophen [Tylenol 8 Hour] 650 mg PO Q4H PRN 12/03/22 12/07/22 Amiodarone [Cordarone] 200 mg PO DAILY@1700 12/03/22 12/07/22 Atorvastatin [Lipitor] 20 mg PO HS 12/03/22 12/07/22 Biotin 10 mg PO DAILY@1700 12/03/22 12/07/22 Chlorhexidine Gluconate [Hibiclens] 1 applic TOPICAL [place]ES[place] 12/03/22 12/07/22 Docusate [Colace] 100 mg PO BID@0800,1700 12/03/22 12/07/22 INSULIN LISPRO (HumaLOG) [humaLOG] See Protocol SQ AC-TID 12/03/22 12/07/22 Insulin Glargine [Lantus Vial] 15 unit SQ HS 12/03/22 12/07/22 Loratadine [Claritin] 10 mg PO Q2D 12/03/22 12/07/22 Midodrine HCl [ProAmatine] 10 mg PO DAILY 12/03/22 12/07/22 Mirabegron [Myrbetriq] 25 mg PO DAILY 12/03/22 12/07/22 Nystatin 100,000 Unit/gm Powd 1 applic TOPICAL TID 12/03/22 12/07/22 [Mycostatin Powder] Ondansetron [Zofran] 4 mg PO DAILY PRN 12/03/22 12/07/22 Potassium Chloride [Klor-Con M20] 20 meq PO DAILY@1700 12/03/22 12/07/22 Sodium Chloride 5% Ophth Soln 1 drop BOTH EYES BID@0800,1700 12/03/22 12/07/22 [Nikko 128] Torsemide [Demadex] 60 mg PO DAILY@1700 12/03/22 12/07/22 bisacodyL [Dulcolax] 10 mg RECTAL DAILY PRN 12/03/22 12/07/22 guaiFENesin [guaiFENesin Oral 200 mg PO Q4H PRN 12/03/22 12/07/22 Solution] metroNIDAZOLE 0.75% CREAM 1 applic TOPICAL BID PRN 12/03/22 12/07/22 [Metrocream 0.75%] Previous Rx's Medication Instructions Recorded Cyanocobalamin [Vitamin B-12] 500 mcg PO DAILY #30 tab 02/06/21 Gabapentin [Neurontin] 100 mg PO DAILY@1700 #3 cap 12/04/22 Gabapentin [Neurontin] 200 mg PO DAILY@0800 #3 cap 12/04/22 Allergies Allergy/AdvReac Type Severity Reaction Status Date / Time amoxicillin Allergy Rash/Hives Verified 12/07/22 13:41 Penicillins Allergy Rash/Hives Verified 12/07/22 13:41 Sulfa (Sulfonamide Allergy Rash/Hives Verified 12/07/22 13:41 Antibiotics) meperidine HCl [From Demerol] AdvReac Nausea & Verified 12/07/22 13:41 Vomiting Review of Systems ROS Statement: Those systems with pertinent positive or pertinent negative responses have been documented in the HPI. ROS Other: All systems not noted in ROS Statement are negative. Past Medical History Past Medical History: Atrial Fibrillation, Heart Failure, CVA/TIA, Diabetes Mellitus, Dialysis, Deep Vein Thrombosis (DVT), GERD/Reflux, Hyperlipidemia, Hypertension, Myocardial Infarction (MD), Osteoarthritis (OA), Pulmonary Embolus (PE), Renal Disease, Rheumatoid Arthritis (RA), Sleep Apnea/CPAP/BIPAP, Thyroid Disorder Additional Past Medical History / Comment(s): on 02/06/20 with UTI /ESBL/bacteremia. Other hx: IDDM type II, diabetic neuropathy bilateral hands/feet, ESRD with hemodialysis, recurrent UTIs, pt was told she had a past MD d/t EKG, palpitations, SSS with pacer, HARRIS with Cpap, chronic back and bilateral knee pain, hypothyroid. bilat carotid artery occlusions and a stroke she was unaware of Last Myocardial Infarction Date:: unknown History of Any Multi-Drug Resistant Organisms: ESBL, MRSA, VRE Date of last positivie culture/infection: 02/01/21 VRE & MRSA at [facility] MDRO Source:: URINE-VRE & MRSA Past Surgical History: Bladder Surgery, Hysterectomy, Pacemaker Additional Past Surgical History / Comment(s): 02/01/20 R upper arm fistula repositioned, R chest boone cath, rectocele, cystocele, hemorrhoidectomy, bilateral leg vein strippings, bilateral cataract removal, Picc lines, bladder biopsy Past Anesthesia/Blood Transfusion Reactions: No Reported Reaction Type of Cardiac Device: Permanent Pacemaker Device Placement Date:: 01/2017 Past Psychological History: No Psychological Hx Reported Smoking Status: Never smoker Past Alcohol Use History: None Reported Past Drug Use History: None Reported - Past Family History Father Family Medical History: AFIB, AICD/Pacemaker, Congestive Heart Failure (CHF), Coronary Artery Disease (CAD), Diabetes Mellitus, Dialysis, Deep Vein Thrombosis (DVT), Hyperlipidemia, Hypertension, Myocardial Infarction (MD), Rheumatoid Arthritis (RA) Mother Family Medical History: Unable to Obtain Sister(s) Family Medical History: Cancer General Exam - General Exam Comments Initial Comments: GENERAL: Patient is well-developed and well-nourished. Patient is nontoxic and well- hydrated and is in mild distress. ENT: Neck is soft and supple. No significant lymphadenopathy is noted. Oropharynx is clear. Moist mucous membranes. Neck has full range of motion without eliciting any pain. EYES: The sclera were anicteric and conjunctiva were pink and moist. Extraocular movements were intact and pupils were equal round and reactive to light. Eyelids were unremarkable. PULMONARY: Unlabored respirations. Good breath sounds bilaterally. No audible rales rhonchi or wheezing was noted. CARDIOVASCULAR: There is a regular rate and rhythm without any murmurs gallops or rubs. ABDOMEN: Soft and nontender with normal bowel sounds. SKIN: Skin is clear with no lesions or rashes and otherwise unremarkable. NEUROLOGIC: Patient is alert and oriented x3. Cranial nerves II through XII are grossly intact. Motor and sensory are also intact. Normal speech, volume and content. Symmetrical smile. MUSCULOSKELETAL: Normal extremities with adequate strength and full range of motion. Patient has a fistula right arm that currently wrapped I did not unwrap it because he said they unwrapped it twice at [facility] and it bled profusely LYMPHATICS: No significant lymphadenopathy is noted PSYCHIATRIC: Normal psychiatric evaluation. Course Vital Signs 12/07/22 12:57 Temperature 98.6 F Pulse Rate 90 Respiratory 20 Rate Blood Pressure 120/48 O2 Sat by Pulse 99 Oximetry Medical Decision Making - Medical Decision Making Was pt. sent in by a medical professional or institution (PRACHI Escobar, ADVISOR CONSULTANT, urgent care, hospital, or assisted...) When possible be specific @ -[facility] emergency physician transferred the patient to me and I spoke with her prior to transfer Did you speak to anyone other than the patient for history (EMS, parent, family, police, friend...)? What history was obtained from this source @ -EMS gave me most of the history because the patient is extremely hard of hearing Did you review nursing and triage notes (agree or disagree)? Why? @ -I reviewed and agree with nursing and triage notes Were old charts reviewed (outside hosp., previous admission, EMS record, old EKG, old radiological studies, urgent care reports/EKG's, assisted records)? Report findings @ -I reviewed prior lab work and compared to today's results Differential Diagnosis (chest pain, altered mental status, abdominal pain women, abdominal pain men, vaginal bleeding, weakness, fever, dyspnea, syncope, headache, dizziness, GI bleed, back pain, seizure, CVA, palpatations, mental health, musculoskeletal)? @ -not applicable EKG interpreted by me (3pts min.). @ -As above X-rays interpreted by me (1pt min.). @ -None done CT interpreted by me (1pt min.). @ -None done U/S interpreted by me (1pt. min.). @ -None done What testing was considered but not performed or refused? (CT, X-rays, U/S, labs)? Why? @ -None What meds were considered but not given or refused? Why? @ -None Did you discuss the management of the patient with other professionals (professionals i.e. , PA, ADVISOR CONSULTANT, lab, RT, psych nurse, group social worker, truck repair supervisor, teacher, plant protection officer, manager rn case)? Give summary @ -I spoke with Dr. Ramirez and Dr. Argueta and Dr. Argueta came down to see the patient Was smoking cessation discussed for >3mins.? @ -No Was critical care preformed (if so, how long)? @ -No Were there social determinants of health that impacted care today? How? (Homelessness, low income, unemployed, alcoholism, drug addiction, transportation, low edu. Level, literacy, decrease access to med. care, penitentiary, rehab)? @ -No Was there de-escalation of care discussed even if they declined (Discuss DNR or withdrawal of care, Hospice)? DNR status @ -No What co-morbidities impacted this encounter? (DM, HTN, Smoking, COPD, CAD, Cancer, CVA, ARF, Chemo, Hep., AIDS, mental health diagnosis, sleep apnea, morbid obesity)? @ -None Was patient admitted / discharged? Hospital course, mention meds given and route, prescriptions, significant lab abnormalities, going to OR and other pertinent info. @ -Dr. Argueta came down and saw the patient to move the wrap and the patient immediately started bleeding all over the place and at that point time Dr. Argueta want to take the patient to the OR. Undiagnosed new problem with uncertain prognosis? @ -No Drug Therapy requiring intensive monitoring for toxicity (Heparin, Nitro, Insulin, Cardizem)? @ -No Were any procedures done? @ -No Diagnosis/symptom? @ -Fistula bleeding Acute, or Chronic, or Acute on Chronic? @ -Acute Uncomplicated (without systemic symptoms) or Complicated (systemic symptoms)? @ -Complicated Side effects of treatment? @ -No Exacerbation, Progression, or Severe Exacerbation? @ -No Poses a threat to life or bodily function? How? (Chest pain, USA, MD, pneumonia, PE, COPD, DKA, ARF, appy, cholecystitis, CVA, Diverticulitis, Homicidal, Suicidal, threat to staff... and all critical care pts) @ -Yes patient could continue bleeding become anemic and hypoperfusing her organs - Lab Data Result diagrams: 12/07/22 13:10 12/07/22 13:10 Lab Results 12/07/22 12/07/22 Range/Units 13:10 13:10 WBC 7.1 (3.8-10.6) k/uL RBC 2.36 L (3.80-5.40) m/uL Hgb 8.3 L (11.4-16.0) gm/dL Hct 25.4 L (34.0-46.0) % MCV 107.4 H (80.0-100.0) fL MCH 34.9 (25.0-35.0) pg MCHC 32.5 (31.0-37.0) g/dL RDW 15.9 H (11.5-15.5) % Plt Count 137 L (150-450) k/uL MPV 9.3 Macrocytosis Marked A Sodium 137 (137-145) mmol/L Potassium 3.7 (3.5-5.1) mmol/L Chloride 101 (98-107) mmol/L Carbon Dioxide 25 (22-30) mmol/L Anion Gap 11 mmol/L BUN 48 H (7-17) mg/dL Creatinine 5.53 H (0.52-1.04) mg/dL Est GFR (CKD-EPI)AfAm 7 (>60 ml/min/1.73 sqM) Est GFR (CKD-EPI)NonAf 6 (>60 ml/min/1.73 sqM) Glucose 256 H (74-99) mg/dL Calcium 6.7 L (8.4-10.2) mg/dL Total Bilirubin 0.4 (0.2-1.3) mg/dL AST 19 (14-36) U/L ALT 17 (4-34) U/L Alkaline Phosphatase 82 (38-126) U/L Total Protein 5.2 L (6.3-8.2) g/dL Albumin 2.9 L (3.5-5.0) g/dL Disposition Clinical Impression: Hemorrhage of arteriovenous fistula Disposition: ADMITTED IP TO THIS HOSP Referrals: Gama Mcginnis MD [Primary Care Provider] - 1-2 days Time of Disposition: 14:08
[2022-12-07 13:38] LABS: Albumin 2.9 g/dL (3.5-5.0); Calcium 6.7 mg/dL (8.4-10.2); Potassium 3.7 mmol/L (3.5-5.1); Total Bilirubin 0.4 mg/dL (0.2-1.3); Total Protein 5.2 g/dL (6.3-8.2)
[2022-12-07 13:40] LABS: Basophils % (A) 0 %; Eosinophils # (A) 0.1 k/uL (0-0.7); Eosinophils % (A) 2 %; HCT 25.4 % (34.0-46.0); HGB 8.3 gm/dL (11.4-16.0); Lymphocytes # (A) 1.6 k/uL (1.0-4.8); Lymphocytes % (A) 23 %; MCH 34.9 pg (25.0-35.0); MCHC 32.5 g/dL (31.0-37.0); MCV 107.4 fL (80.0-100.0); Macrocytosis Marked; Mean Platelet Volume 9.3; Monocytes # (A) 0.3 k/uL (0-1.0); Monocytes % (A) 5 %; Neutrophils # (A) 4.9 k/uL (1.3-7.7); Neutrophils % (A) 69 %; Platelet Count 137 k/uL (150-450); RBC 2.36 m/uL (3.80-5.40); RDW 15.9 % (11.5-15.5); WBC 7.1 k/uL (3.8-10.6)
[2022-12-07] MEDS ORDERED: SODIUM CHLORIDE 0.9% 1,000 ML IV ONE ×2 (14:08→15:14)
--- NOTE | 2022-12-07 14:27 | P.GSCN ---
History of Present Illness History of present illness: 87-year-old white female patient came to the emergency room with history of bleeding from fistula right arm. Patient had a balloon angioplasty of the fistula yesterday at [place] from a general for high-grade stenosis patient was having shortness morning and she started bleeding profusely from the right arm fistula. This fistula was created in [place] in the past she is having dialysis 3 times a week. Medical history history of chronic renal failure patient is on dialysis 3 times a week Surgical history this patient has a right arm fistula created 3 years ago inflamed and having dialysis 3 times a week patient developed some fistula stenosis patient went [place] primary gentleman had a balloon angioplasty and stent stitch was placed on examination chest is clear good and both lungs first and second sound present Abdomen soft nontender Vascular femorals are 1+ bilateral patient has a l right upper arm fistula we opened the dressing patient started to control bleeding patient was profusely bleeding pressure dressing applied patient will be dictated to the OR controlled the bleeding for possible repair possible ligation risk and complication discussed Past Medical History Past Medical History: Atrial Fibrillation, Heart Failure, CVA/TIA, Diabetes Mellitus, Dialysis, Deep Vein Thrombosis (DVT), GERD/Reflux, Hyperlipidemia, Hypertension, Myocardial Infarction ([place]), Osteoarthritis (OA), Pulmonary Embolus (PE), Renal Disease, Rheumatoid Arthritis (RA), Sleep Apnea/CPAP/BIPAP, Thyroid Disorder Additional Past Medical History / Comment(s): on 02/06/20 with UTI/ESBL/bacteremia. Other hx: IDDM type II, diabetic neuropathy bilateral hands/feet, ESRD with hemodialysis, recurrent UTIs, pt was told she had a past [place] d/t EKG, palpitations, SSS with pacer, HARRIS with Cpap, chronic back and bilateral knee pain, hypothyroid. bilat carotid artery occlusions and a stroke she was unaware of Last Myocardial Infarction Date:: unknown History of Any Multi-Drug Resistant Organisms: ESBL, MRSA, VRE Year Discovered:: 02/01/21 VRE & MRSA at [facility] MDRO Source:: URINE-VRE & MRSA Past Surgical History: Bladder Surgery, Hysterectomy, Pacemaker Additional Past Surgical History / Comment(s): 02/01/20 R upper arm fistula repositioned, R chest boone cath, rectocele, cystocele, hemorrhoidectomy, bilateral leg vein strippings, bilateral cataract removal, Picc lines, bladder biopsy Past Anesthesia/Blood Transfusion Reactions: No Reported Reaction Type of Cardiac Device: Permanent Pacemaker Device Placement Date:: 01/2017 Past Psychological History: No Psychological Hx Reported Smoking Status: Never smoker Past Alcohol Use History: None Reported Past Drug Use History: None Reported - Past Family History Father Family Medical History: AFIB, AICD/Pacemaker, Congestive Heart Failure (CHF), Coronary Artery Disease (CAD), Diabetes Mellitus, Dialysis, Deep Vein Thrombosis (DVT), Hyperlipidemia, Hypertension, Myocardial Infarction ([place]), Rheumatoid Arthritis (RA) Mother Family Medical History: Unable to Obtain Sister(s) Family Medical History: Cancer Medications and Allergies Home Medications Medication Instructions Recorded Confirmed Type Levothyroxine Sodium [Synthroid] 100 mcg PO DAILY 01/31/14 12/07/22 History allopurinoL [Zyloprim] 100 mg PO AC-BRKFST 01/18/17 12/07/22 History Calcium Acetate [PhosLo] 2,001 mg PO TID-W/MEALS 05/25/20 12/07/22 History Mirtazapine [Remeron] 15 mg PO HS 05/25/20 12/07/22 History Calcium Carbonate [Tums] 1,000 mg PO QID PRN 01/10/21 12/07/22 History Cholecalciferol [Vitamin D3 (25 100 mcg PO AC-LUNCH 01/10/21 12/07/22 History Mcg = 1000 Iu)] Folic Acid-Vit B Complex-Vit C 1 cap PO AC-LUNCH 01/10/21 12/07/22 History [Nephrocaps] Cyanocobalamin [Vitamin B-12] 500 mcg PO DAILY #30 tab 02/06/21 12/07/22 Rx Apixaban [Eliquis] 2.5 mg PO BID@0800,1700 03/21/21 12/07/22 History Acetaminophen [Tylenol 8 Hour] 650 mg PO Q4H PRN 12/03/22 12/07/22 History Amiodarone [Cordarone] 200 mg PO DAILY@1700 12/03/22 12/07/22 History Atorvastatin [Lipitor] 20 mg PO HS 12/03/22 12/07/22 History Biotin 10 mg PO DAILY@1700 12/03/22 12/07/22 History Chlorhexidine Gluconate [Hibiclens] 1 applic TOPICAL MOWESA 12/03/22 12/07/22 History Docusate [Colace] 100 mg PO BID@0800,1700 12/03/22 12/07/22 History INSULIN LISPRO (HumaLOG) [humaLOG] See Protocol SQ AC-TID 12/03/22 12/07/22 History Insulin Glargine [Lantus Vial] 15 unit SQ HS 12/03/22 12/07/22 History Loratadine [Claritin] 10 mg PO Q2D 12/03/22 12/07/22 History Midodrine HCl [ProAmatine] 10 mg PO DAILY 12/03/22 12/07/22 History Mirabegron [Myrbetriq] 25 mg PO DAILY 12/03/22 12/07/22 History Nystatin 100,000 Unit/gm Powd 1 applic TOPICAL TID 12/03/22 12/07/22 History [Mycostatin Powder] Ondansetron [Zofran] 4 mg PO DAILY PRN 12/03/22 12/07/22 History Potassium Chloride [Klor-Con M20] 20 meq PO DAILY@1700 12/03/22 12/07/22 History Sodium Chloride 5% Ophth Soln 1 drop BOTH EYES BID@0800,1700 12/03/22 12/07/22 History [Nikko 128] Torsemide [Demadex] 60 mg PO DAILY@1700 12/03/22 12/07/22 History bisacodyL [Dulcolax] 10 mg RECTAL DAILY PRN 12/03/22 12/07/22 History guaiFENesin [guaiFENesin Oral 200 mg PO Q4H PRN 12/03/22 12/07/22 History Solution] metroNIDAZOLE 0.75% CREAM 1 applic TOPICAL BID PRN 12/03/22 12/07/22 History [Metrocream 0.75%] Gabapentin [Neurontin] 100 mg PO DAILY@1700 #3 cap 12/04/22 12/07/22 Rx Gabapentin [Neurontin] 200 mg PO DAILY@0800 #3 cap 12/04/22 12/07/22 Rx Allergies Allergy/AdvReac Type Severity Reaction Status Date / Time amoxicillin Allergy Rash/Hives Verified 12/07/22 13:41 Penicillins Allergy Rash/Hives Verified 12/07/22 13:41 Sulfa (Sulfonamide Allergy Rash/Hives Verified 12/07/22 13:41 Antibiotics) meperidine HCl [From Demerol] AdvReac Nausea & Verified 12/07/22 13:41 Vomiting Surgical - Exam Vital Signs Temp Pulse Resp BP Pulse Ox 98.6 F 90 20 120/48 99 12/07/22 12:57 12/07/22 12:57 12/07/22 12:57 12/07/22 12:57 12/07/22 12:57 Results - Labs 12/07/22 13:10 12/07/22 13:10 Abnormal Lab Results - Last 24 Hours (Table) 12/07/22 12/07/22 Range/Units 13:10 13:10 RBC 2.36 L (3.80-5.40) m/uL Hgb 8.3 L (11.4-16.0) gm/dL Hct 25.4 L (34.0-46.0) % MCV 107.4 H (80.0-100.0) fL RDW 15.9 H (11.5-15.5) % Plt Count 137 L (150-450) k/uL Macrocytosis Marked A BUN 48 H (7-17) mg/dL Creatinine 5.53 H (0.52-1.04) mg/dL Glucose 256 H (74-99) mg/dL Calcium 6.7 L (8.4-10.2) mg/dL Total Protein 5.2 L (6.3-8.2) g/dL Albumin 2.9 L (3.5-5.0) g/dL Diabetes panel 12/07/22 Range/Units 13:10 Sodium 137 (137-145) mmol/L Potassium 3.7 (3.5-5.1) mmol/L Chloride 101 (98-107) mmol/L Carbon Dioxide 25 (22-30) mmol/L BUN 48 H (7-17) mg/dL Creatinine 5.53 H (0.52-1.04) mg/dL Glucose 256 H (74-99) mg/dL Calcium 6.7 L (8.4-10.2) mg/dL AST 19 (14-36) U/L ALT 17 (4-34) U/L Alkaline Phosphatase 82 (38-126) U/L Total Protein 5.2 L (6.3-8.2) g/dL Albumin 2.9 L (3.5-5.0) g/dL Calcium panel 12/07/22 Range/Units 13:10 Calcium 6.7 L (8.4-10.2) mg/dL Albumin 2.9 L (3.5-5.0) g/dL Pituitary panel 12/07/22 Range/Units 13:10 Sodium 137 (137-145) mmol/L Potassium 3.7 (3.5-5.1) mmol/L Chloride 101 (98-107) mmol/L Carbon Dioxide 25 (22-30) mmol/L BUN 48 H (7-17) mg/dL Creatinine 5.53 H (0.52-1.04) mg/dL Glucose 256 H (74-99) mg/dL Calcium 6.7 L (8.4-10.2) mg/dL Adrenal panel 12/07/22 Range/Units 13:10 Sodium 137 (137-145) mmol/L Potassium 3.7 (3.5-5.1) mmol/L Chloride 101 (98-107) mmol/L Carbon Dioxide 25 (22-30) mmol/L BUN 48 H (7-17) mg/dL Creatinine 5.53 H (0.52-1.04) mg/dL Glucose 256 H (74-99) mg/dL Calcium 6.7 L (8.4-10.2) mg/dL Total Bilirubin 0.4 (0.2-1.3) mg/dL AST 19 (14-36) U/L ALT 17 (4-34) U/L Alkaline Phosphatase 82 (38-126) U/L Total Protein 5.2 L (6.3-8.2) g/dL Albumin 2.9 L (3.5-5.0) g/dL
[2022-12-07] MEDS ORDERED: MIDAZOLAM 2 MG/2 ML VIAL ONE (15:09)
[2022-12-07] MEDS ORDERED: fentaNYL (PF) 50 MCG/ML 2 ML AMP ONE (15:09)
[2022-12-07] MEDS ORDERED: ceFAZolin 1,000 MG VIAL ONE (15:09)
[2022-12-07] MEDS ORDERED: KETAMINE 10 MG/ML 20 ML VIAL ONE (15:09)
[2022-12-07] MEDS ORDERED: SODIUM CHLORIDE 0.9% 100 ML BAG ONE (15:09)
[2022-12-07] MEDS ORDERED: PHENYLEPHRINE-0.9% NACL SYG 1,000 MCG/10 ML SYRINGE ONE (15:09)
[2022-12-07 16:17] LABS: Glucose,Whole Blood 187 mg/dL (70-110)
[2022-12-07 16:17] LABS: Glucose,Whole Blood 169 mg/dL (70-110)
--- NOTE | 2022-12-07 16:24 | P.PCN ---
Description of Procedure: Preop diagnoses is bleeding was some femoral brachial fistula post balloon angioplasty right arm Postoperative same Procedure this patient has history of tobacco pressure. Patient to developed a stenosis a femoral brachial fistula yesterday patient was marked [facility] and patient had a balloon angioplasty of the fistula patient was sent home patient this morning was having shower she is started bleeding excessively from the fistula patient was came to the ER we attempted to control the bleeding but patient was bleeding excessively we brought patient to the operating room right arm was prepped and draped for pressure manner right arm was prepped and draped applied sterile manner dressing was removed proximal distal control was obtained and patient was a bleeding excessively from the fistula we used uses a pursestring suture applied with 3-0 nylon Christine and bleeding was controlled through 3 were present in the fistula radial artery was present
[2022-12-07] MEDS ORDERED: CALCIUM CARBONATE 500 MG CHEWABLE PO PRN (16:59)
[2022-12-07] MEDS ORDERED: guaiFENesin SYRUP 100MG/5ML 200 MG/10 ML CUP PO PRN (16:59)
[2022-12-07] MEDS ORDERED: ACETAMINOPHEN TAB 325 MG TAB PO PRN (16:59)
[2022-12-07] MEDS ORDERED: ONDANSETRON 4 MG TAB PO PRN (16:59)
[2022-12-07] MEDS ORDERED: bisacodyL 10 MG SUPP RECTAL PRN (16:59)
[2022-12-07] MEDS ORDERED: NON FORMULARY DRUG (Biotin [Biotin] 5 MG Capsule) PO SCH (17:00)
[2022-12-07] MEDS ORDERED: CHLORHEXIDINE GLUCONATE TOPICAL SCH (17:00)
[2022-12-07] MEDS ORDERED: DEXTROSE 50% SYRINGE 50 ML IVP PRN ×2 (17:08)
[2022-12-07] MEDS ORDERED: INSULIN ASPART (NovoLOG) 100 UNIT/ML VIAL SQ SCH (17:30)
[2022-12-07] MEDS: SODIUM CHLORIDE 5% OPHTH DROPS 15 ML BTL BOTH EYES SCH (17:40)
[2022-12-07 17:41] LABS: Glucose,Whole Blood 166 mg/dL (70-110)
[2022-12-07] MEDS: POTASSIUM CHLORIDE ER 20 MEQ TAB.ER PO SCH (17:49)
[2022-12-07] MEDS: AMIODARONE 200 MG TAB PO SCH (17:50)
[2022-12-07] MEDS: INSULIN ASPART (NovoLOG) 100 UNIT/ML VIAL SQ SCH ×2 (17:50→20:51)
[2022-12-07] MEDS: DOCUSATE 100 MG CAP PO SCH (17:50)
[2022-12-07] MEDS: GABAPENTIN 100 MG CAP PO SCH (17:50)
[2022-12-07] MEDS: CALCIUM ACETATE 667 MG TAB PO SCH (17:50)
[2022-12-07] MEDS: ACETAMINOPHEN TAB 325 MG TAB PO PRN (17:55)
[2022-12-07] MEDS: TORSEMIDE 20 MG TAB PO SCH (18:37)
[2022-12-07 20:41] LABS: Glucose,Whole Blood 123 mg/dL (70-110)
[2022-12-07] MEDS: ATORVASTATIN 20 MG TAB PO SCH (20:54)
[2022-12-07] MEDS: MIRTAZAPINE 15 MG TAB PO SCH (20:55)
[2022-12-07] MEDS: INSULIN DETEMIR (LEVEMIR) 100 UNIT/ML SYR SQ SCH (20:55)
[2022-12-07] MEDS ORDERED: INSULIN DETEMIR (LEVEMIR) 100 UNIT/ML SYR SQ SCH ×2 (21:00)
[2022-12-07] MEDS: NYSTATIN 100,000 UNIT/GM POWD 15 GM TOPICAL SCH (21:44)
[2022-12-08] MEDS: ACETAMINOPHEN TAB 325 MG TAB PO PRN (05:21)
[2022-12-08 06:16] LABS: Glucose,Whole Blood 82 mg/dL (70-110)
[2022-12-08] MEDS: CALCIUM ACETATE 667 MG TAB PO SCH ×3 (06:32→17:15)
[2022-12-08] MEDS: allopurinoL 100 MG TAB PO SCH (06:33)
[2022-12-08] MEDS: LEVOTHYROXINE 100 MCG TAB PO SCH (06:33)
[2022-12-08] MEDS: INSULIN ASPART (NovoLOG) 100 UNIT/ML VIAL SQ SCH ×4 (06:46→21:07)
[2022-12-08] MEDS: MIDODRINE 5 MG TAB PO SCH (07:40)
[2022-12-08] MEDS: DOCUSATE 100 MG CAP PO SCH ×2 (07:40→17:15)
[2022-12-08] MEDS: LORATADINE 10 MG TAB PO SCH (07:40)
[2022-12-08] MEDS: CYANOCOBALAMIN 500 MCG TAB PO SCH (07:40)
[2022-12-08] MEDS: GABAPENTIN 100 MG CAP PO SCH ×2 (07:40→17:15)
[2022-12-08] MEDS: NYSTATIN 100,000 UNIT/GM POWD 15 GM TOPICAL SCH ×3 (07:41→21:08)
[2022-12-08 07:42] LABS: Anisocytosis Slight; Basophils % (A) 0 %; Eosinophils # (A) 0.1 k/uL (0-0.7); Eosinophils % (A) 2 %; HCT 21.4 % (34.0-46.0); HGB 7.1 gm/dL (11.4-16.0); Lymphocytes # (A) 1.9 k/uL (1.0-4.8); Lymphocytes % (A) 26 %; MCH 35.9 pg (25.0-35.0); MCHC 33.2 g/dL (31.0-37.0); MCV 108.2 fL (80.0-100.0); Macrocytosis Marked; Mean Platelet Volume 9.1; Monocytes # (A) 0.4 k/uL (0-1.0); Monocytes % (A) 5 %; Neutrophils # (A) 4.6 k/uL (1.3-7.7); Neutrophils % (A) 65 %; Platelet Count 133 k/uL (150-450); RBC 1.98 m/uL (3.80-5.40); RDW 16.3 % (11.5-15.5); WBC 7.1 k/uL (3.8-10.6)
[2022-12-08 07:56] LABS: African American GFR (CKD) 6 (>60 ml/min/1.73 sqM); Anion Gap 14 mmol/L; Blood Urea Nitrogen 50 mg/dL (7-17); Calcium 6.8 mg/dL (8.4-10.2); Carbon Dioxide 19 mmol/L (22-30); Chloride 103 mmol/L (98-107); Glucose 65 mg/dL (74-99); Non-African American GFR(CKD) 6 (>60 ml/min/1.73 sqM); Potassium 4.4 mmol/L (3.5-5.1); Sodium 136 mmol/L (137-145)
[2022-12-08] MEDS: Mirabegron [Myrbetriq] 25 MG Tab.Er.24h PO SCH (09:08)
--- NOTE | 2022-12-08 09:39 | P.PCN ---
Description of Procedure: Patient was seen this morning this patient came with excessive bleeding right arm cephalic to brachial fistula this patient had a balloon angioplasty done day before yesterday and marked, general patient went for shower she had excessive bleeding patient came to the ER with to come to the OR we controlled the bleeding today this morning her dressing has been changing thrill is present no active bleeding was noted patient can be dialyzed today discussed with the nephrology
--- NOTE | 2022-12-08 09:52 | P.NPCON ---
History of Present Illness - Reason for Consult Consult date: 12/08/22 end stage renal disease - Chief Complaint Bleeding from AV fistula - History of Present Illness This is an 87-year-old female, known with ESRD on dialysis Friday. Presented with bleeding AV fistula in her right arm, after having had a recent balloon angioplasty of the fistula a day before. While the patient was in the shower she scratched an open up and started bleeding heavily. Patient states she is on eliquis. Patient was transported with a tourniquet [facility] they removed the tourniquet and the patient continued to bleed heavily so they eventually wrapped under pressure and it is stopped most of the bleeding. Patient denies any difficulty breathing shortest breath per day patient denies any lightheadedness or dizziness. She was taken to the OR and the bleeding site was sutured. This morning was stopped she is comfortable at room air but complains of aches and pains all over which is chronic. She is able to eat her breakfast without any nausea vomiting. She is very anxious. This morning her labs potassium is 4.4 creatinine 6.18. Hemoglobin 7.1 Past Medical History Past Medical History: Atrial Fibrillation, Heart Failure, CVA/TIA, Diabetes Mellitus, Dialysis, GERD/Reflux, Hyperlipidemia, Hypertension, Myocardial Infarction ([place]), Osteoarthritis (OA), Pulmonary Embolus (PE), Renal Disease, Rheumatoid Arthritis (RA), Sleep Apnea/CPAP/BIPAP, Thyroid Disorder Additional Past Medical History / Comment(s): on 02/06/20 with UTI/ESBL/bacteremia. Other hx: IDDM type II, diabetic neuropathy bilateral hands/feet, ESRD with hemodialysis, recurrent UTIs, pt was told she had a past [place] d/t EKG, palpitations, SSS with pacer, HARRIS with Cpap, chronic back and bilateral knee pain, hypothyroid. bilat carotid artery occlusions and a stroke she was unaware of Last Myocardial Infarction Date:: 01/2017 History of Any Multi-Drug Resistant Organisms: ESBL, MRSA, VRE Date of last positivie culture/infection: 02/01/21 VRE & MRSA at [facility] MDRO Source:: URINE-VRE & MRSA Past Surgical History: Bladder Surgery, Hysterectomy, Pacemaker Additional Past Surgical History / Comment(s): 02/01/20 R upper arm fistula repositioned, R chest boone cath, rectocele, cystocele, hemorrhoidectomy, bilateral leg vein strippings, bilateral cataract removal, Picc lines, bladder biopsy Past Anesthesia/Blood Transfusion Reactions: No Reported Reaction Type of Cardiac Device: Permanent Pacemaker Device Placement Date:: 01/2017 Past Psychological History: No Psychological Hx Reported Additional Psychological History / Comment(s): Pt resides in her own home. Her vicky and son-in-law are temporarily staying with her to help out. She has a CPap, rolling walker, cane, life alert. 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 She recieves meals on wheels. Pt currently receiving home care thru [facility] Smoking Status: Never smoker Past Alcohol Use History: None Reported Past Drug Use History: None Reported - Past Family History Father Family Medical History: AFIB, AICD/Pacemaker, Congestive Heart Failure (CHF), Coronary Artery Disease (CAD), Diabetes Mellitus, Dialysis, Deep Vein Thrombosis (DVT), Hyperlipidemia, Hypertension, Myocardial Infarction ([place]), Rheumatoid Arthritis (RA) Mother Family Medical History: Unable to Obtain Sister(s) Family Medical History: Cancer Medications and Allergies Home Medications Medication Instructions Recorded Confirmed Type Levothyroxine Sodium [Synthroid] 100 mcg PO DAILY 01/31/14 12/07/22 History allopurinoL [Zyloprim] 100 mg PO AC-BRKFST 01/18/17 12/07/22 History Calcium Acetate [PhosLo] 2,001 mg PO TID-W/MEALS 05/25/20 12/07/22 History Mirtazapine [Remeron] 15 mg PO HS 05/25/20 12/07/22 History Calcium Carbonate [Tums] 1,000 mg PO QID PRN 01/10/21 12/07/22 History Cholecalciferol [Vitamin D3 (25 100 mcg PO AC-LUNCH 01/10/21 12/07/22 History Mcg = 1000 Iu)] Folic Acid-Vit B Complex-Vit C 1 cap PO AC-LUNCH 01/10/21 12/07/22 History [Nephrocaps] Cyanocobalamin [Vitamin B-12] 500 mcg PO DAILY #30 tab 02/06/21 12/07/22 Rx Apixaban [Eliquis] 2.5 mg PO BID@0800,1700 03/21/21 12/07/22 History Acetaminophen [Tylenol 8 Hour] 650 mg PO Q4H PRN 12/03/22 12/07/22 History Amiodarone [Cordarone] 200 mg PO DAILY@1700 12/03/22 12/07/22 History Atorvastatin [Lipitor] 20 mg PO HS 12/03/22 12/07/22 History Biotin 10 mg PO DAILY@1700 12/03/22 12/07/22 History Chlorhexidine Gluconate [Hibiclens] 1 applic TOPICAL MOWESA 12/03/22 12/07/22 History Docusate [Colace] 100 mg PO BID@0800,1700 12/03/22 12/07/22 History INSULIN LISPRO (HumaLOG) [humaLOG] See Protocol SQ AC-TID 12/03/22 12/07/22 History Insulin Glargine [Lantus Vial] 15 unit SQ HS 12/03/22 12/07/22 History Loratadine [Claritin] 10 mg PO Q2D 12/03/22 12/07/22 History Midodrine HCl [ProAmatine] 10 mg PO DAILY 12/03/22 12/07/22 History Mirabegron [Myrbetriq] 25 mg PO DAILY 12/03/22 12/07/22 History Nystatin 100,000 Unit/gm Powd 1 applic TOPICAL TID 12/03/22 12/07/22 History [Mycostatin Powder] Ondansetron [Zofran] 4 mg PO DAILY PRN 12/03/22 12/07/22 History Potassium Chloride [Klor-Con M20] 20 meq PO DAILY@169912/03/22 12/07/22 History Sodium Chloride 5% Ophth Soln 1 drop BOTH EYES BID@0800,1700 12/03/22 12/07/22 History [Nikko 128] Torsemide [Demadex] 60 mg PO DAILY@169912/03/22 12/07/22 History bisacodyL [Dulcolax] 10 mg RECTAL DAILY PRN 12/03/22 12/07/22 History guaiFENesin [guaiFENesin Oral 200 mg PO Q4H PRN 12/03/22 12/07/22 History Solution] metroNIDAZOLE 0.75% CREAM 1 applic TOPICAL BID PRN 12/03/22 12/07/22 History [Metrocream 0.75%] Gabapentin [Neurontin] 100 mg PO DAILY@1700 #3 cap 12/04/22 12/07/22 Rx Gabapentin [Neurontin] 200 mg PO DAILY@0800 #3 cap 12/04/22 12/07/22 Rx Allergies Allergy/AdvReac Type Severity Reaction Status Date / Time amoxicillin Allergy Rash/Hives Verified 12/07/22 13:41 Penicillins Allergy Rash/Hives Verified 12/07/22 13:41 Sulfa (Sulfonamide Allergy Rash/Hives Verified 12/07/22 13:41 Antibiotics) meperidine HCl [From Demerol] AdvReac Nausea & Verified 12/07/22 13:41 Vomiting Physical Exam Vitals: Vital Signs Temp Pulse Pulse Resp BP BP Pulse Ox 12/08/22 07:42 70 18 12/08/22 07:01 97.4 F L 70 18 116/56 99 12/08/22 01:20 97.1 F L 89 17 111/66 100 12/07/22 18:40 97.6 F 69 17 110/54 99 12/07/22 18:22 66 126/70 99 12/07/22 18:08 68 115/60 100 12/07/22 17:48 77 135/69 89 L 12/07/22 17:37 73 113/64 97 12/07/22 17:22 69 116/65 100 12/07/22 17:07 70 108/64 12/07/22 16:52 72 108/66 12/07/22 16:38 97.6 F 71 16 113/48 12/07/22 16:21 68 16 113/56 99 12/07/22 16:05 66 16 107/53 97 12/07/22 15:55 96.9 F L 70 16 117/56 97 12/07/22 14:42 98.5 F 81 20 118/56 95 12/07/22 12:57 98.6 F 90 20 120/48 99 Intake and Output 12/07/22 12/08/22 12/08/22 22:59 06:59 14:59 Intake Total 150 Output Total 20 Balance 130 Intake: IV 150 Output: Estimated Blood Loss 20 Other: # Voids 0 1 # Bowel Movements 1 1 on examination she is awake alert HEENT exam no JVP noted no facial asymmetry neck is supple answers clear to auscultation good air entry bilaterally Heart sounds unremarkable Abdomen soft nontender extremity exam was no edema. Neurologically awake alert oriented but very anxious Warm to touch. Results - Lab Results Most recent lab results Calcium 6.8 mg/dL (8.4-10.2) L 12/08/22 06:25 12/08/22 06:25 12/08/22 06:25 Assessment and Plan Assessment: impression 1. ESRD on dialysis Friday at [facility] on 2. admitted with bleeding fistula right upper arm. Status post suturing yesterday 12/07/2022. 3. 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 Diabetes mellitus 5. coronary artery disease, pulmonary embolism, rheumatoid arthritis, sleep apnea. Recommendation 1. we'll try to dialyze her today if possible to see if the fistula is functioning and usable. Will do a 20 half hour treatment and see in the fistula can be used . 2. Start darbepoetin 40 mics subcutaneous weekly
[2022-12-08 11:04] LABS: INR 1.1 (<1.2); Partial Thromboplastin Time 24.1 sec (22.0-30.0); Prothrombin Time 11.1 sec (9.0-12.0)
[2022-12-08 11:45] LABS: Glucose,Whole Blood 207 mg/dL (70-110)
[2022-12-08] MEDS: FOLIC ACID-VIT B COMPLEX-VIT C 1 CAP PO SCH (11:52)
[2022-12-08] MEDS: CHOLECALCIFEROL 25 MCG (1000 IU) TABLET PO SCH (11:52)
[2022-12-08] MEDS ORDERED: DARBEPOETIN ALFA 40 MCG/0.4 ML SYRINGE SQ SCH (12:00)
--- NOTE | 2022-12-08 14:38 | P.HPIM ---
History of Present Illness H&P Date: 12/08/22 Chief Complaint: Bleeding from AV fistula * 87-year-old lady with past medical history significant for end-stage renal disease on hemodialysis Friday was a Friday, history of atrial fibrillation, history of CVA, diabetes mellitus, anemia of chronic kidney disease, history of pulmonary embolism presented to the emergency department brought in after patient was noted to have bleeding from AV fistula and right arm. Patient was emergently taken for surgery and had right balloon angioplasty completed on 12/07/22. Patient was seen by vascular surgery. Patient was noted to have significant anemia with drop in hemoglobin from 8-7. Patient was noted to be taking liquids prior to hospitalization which was placed on hold. Patient had balloon angioplasty done the day before this hospitalization. * Patient. We'll follow presentation, hip and discussed with and date. She de nied chest pain, fever or chills abdominal pain * Care plan discussed with daughter as well Review of Systems REVIEW OF SYSTEMS: Bleeding from AV fistula CONSTITUTIONAL: No fever, no malaise, no fatigue. HEENT: No recent visual problems or hearing problems. Denied any sore throat. CARDIOVASCULAR: No chest pain, orthopnea, PND, no palpitations, no syncope. PULMONARY: No shortness of breath, no cough, no hemoptysis. GASTROINTESTINAL: No diarrhea, no nausea, no vomiting, no abdominal pain. NEUROLOGICAL: No headaches, no weakness, no numbness. HEMATOLOGICAL: Denies any bleeding or petechiae. GENITOURINARY: Denies any burning micturition, frequency, or urgency. MUSCULOSKELETAL/RHEUMATOLOGICAL: Denies any joint pain, swelling, or any muscle pain. ENDOCRINE: Denies any polyuria or polydipsia. Past Medical History Past Medical History: Atrial Fibrillation, Heart Failure, CVA/TIA, Diabetes Mellitus, Dialysis, GERD/Reflux, Hyperlipidemia, Hypertension, Myocardial Infarction (LA), Osteoarthritis (OA), Pulmonary Embolus (PE), Renal Disease, Rheumatoid Arthritis (RA), Sleep Apnea/CPAP/BIPAP, Thyroid Disorder Additional Past Medical History / Comment(s): on 02/06/20 with UTI/ESBL/bacteremia. Other hx: IDDM type II, diabetic neuropathy bilateral hands/feet, ESRD with hemodialysis, recurrent UTIs, pt was told she had a past LA d/t EKG, palpitations, SSS with pacer, HARRIS with Cpap, chronic back and bilateral knee pain, hypothyroid. bilat carotid artery occlusions and a stroke she was unaware of Last Myocardial Infarction Date:: 01/2017 History of Any Multi-Drug Resistant Organisms: ESBL, MRSA, VRE Date of last positivie culture/infection: 02/01/21 VRE & MRSA at [facility] MDRO Source:: URINE-VRE & MRSA Past Surgical History: Bladder Surgery, Hysterectomy, Pacemaker Additional Past Surgical History / Comment(s): 02/01/20 R upper arm fistula repositioned, R chest boone cath, rectocele, cystocele, hemorrhoidectomy, bilateral leg vein strippings, bilateral cataract removal, Picc lines, bladder biopsy Past Anesthesia/Blood Transfusion Reactions: No Reported Reaction Type of Cardiac Device: Permanent Pacemaker Device Placement Date:: 01/2017 Past Psychological History: No Psychological Hx Reported Additional Psychological History / Comment(s): Pt resides in her own home. Her vicky and son-in-law are temporarily staying with her to help out. She has a CPap, rolling walker, cane, life alert. 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 She recieves meals on wheels. Pt currently receiving home care thru [facility] Smoking Status: Never smoker Past Alcohol Use History: None Reported Past Drug Use History: None Reported - Past Family History Father Family Medical History: AFIB, AICD/Pacemaker, Congestive Heart Failure (CHF), Coronary Artery Disease (CAD), Diabetes Mellitus, Dialysis, Deep Vein Thrombosis (DVT), Hyperlipidemia, Hypertension, Myocardial Infarction (LA), Rheumatoid Arthritis (RA) Mother Family Medical History: Unable to Obtain Sister(s) Family Medical History: Cancer Medications and Allergies Home Medications Medication Instructions Recorded Confirmed Type Levothyroxine Sodium [Synthroid] 100 mcg PO DAILY 01/31/14 12/07/22 History allopurinoL [Zyloprim] 100 mg PO AC-BRKFST 01/18/17 12/07/22 History Calcium Acetate [PhosLo] 2,001 mg PO TID-W/MEALS 05/25/20 12/07/22 History Mirtazapine [Remeron] 15 mg PO HS 05/25/20 12/07/22 History Calcium Carbonate [Tums] 1,000 mg PO QID PRN 01/10/21 12/07/22 History Cholecalciferol [Vitamin D3 (25 100 mcg PO AC-LUNCH 01/10/21 12/07/22 History Mcg = 1000 Iu)] Folic Acid-Vit B Complex-Vit C 1 cap PO AC-LUNCH 01/10/21 12/07/22 History [Nephrocaps] Cyanocobalamin [Vitamin B-12] 500 mcg PO DAILY #30 tab 02/06/21 12/07/22 Rx Apixaban [Eliquis] 2.5 mg PO BID@0800,1700 03/21/21 12/07/22 History Acetaminophen [Tylenol 8 Hour] 650 mg PO Q4H PRN 12/03/22 12/07/22 History Amiodarone [Cordarone] 200 mg PO DAILY@1700 12/03/22 12/07/22 History Atorvastatin [Lipitor] 20 mg PO HS 12/03/22 12/07/22 History Biotin 10 mg PO DAILY@1700 12/03/22 12/07/22 History Chlorhexidine Gluconate [Hibiclens] 1 applic TOPICAL MOWESA 12/03/22 12/07/22 History Docusate [Colace] 100 mg PO BID@0800,1700 12/03/22 12/07/22 History INSULIN LISPRO (HumaLOG) [humaLOG] See Protocol SQ AC-TID 12/03/22 12/07/22 History Insulin Glargine [Lantus Vial] 15 unit SQ HS 12/03/22 12/07/22 History Loratadine [Claritin] 10 mg PO Q2D 12/03/22 12/07/22 History Midodrine HCl [ProAmatine] 10 mg PO DAILY 12/03/22 12/07/22 History Mirabegron [Myrbetriq] 25 mg PO DAILY 12/03/22 12/07/22 History Nystatin 100,000 Unit/gm Powd 1 applic TOPICAL TID 12/03/22 12/07/22 History [Mycostatin Powder] Ondansetron [Zofran] 4 mg PO DAILY PRN 12/03/22 12/07/22 History Potassium Chloride [Klor-Con M20] 20 meq PO DAILY@1700 12/03/22 12/07/22 History Sodium Chloride 5% Ophth Soln 1 drop BOTH EYES BID@0800,1700 12/03/22 12/07/22 History [Nikko 128] Torsemide [Demadex] 60 mg PO DAILY@1700 12/03/22 12/07/22 History bisacodyL [Dulcolax] 10 mg RECTAL DAILY PRN 12/03/22 12/07/22 History guaiFENesin [guaiFENesin Oral 200 mg PO Q4H PRN 12/03/22 12/07/22 History Solution] metroNIDAZOLE 0.75% CREAM 1 applic TOPICAL BID PRN 12/03/22 12/07/22 History [Metrocream 0.75%] Gabapentin [Neurontin] 100 mg PO DAILY@1700 #3 cap 12/04/22 12/07/22 Rx Gabapentin [Neurontin] 200 mg PO DAILY@0800 #3 cap 12/04/22 12/07/22 Rx Allergies Allergy/AdvReac Type Severity Reaction Status Date / Time amoxicillin Allergy Rash/Hives Verified 12/07/22 13:41 Penicillins Allergy Rash/Hives Verified 12/07/22 13:41 Sulfa (Sulfonamide Allergy Rash/Hives Verified 12/07/22 13:41 Antibiotics) meperidine HCl [From Demerol] AdvReac Nausea & Verified 12/07/22 13:41 Vomiting Physical Exam Vitals: Vital Signs Temp Pulse Pulse Resp BP BP Pulse Ox 12/08/22 14:11 98.2 F 70 14 99/55 100 12/08/22 14:05 70 16 121/63 100 12/08/22 13:39 98.2 F 67 16 127/72 100 12/08/22 07:42 70 18 12/08/22 07:01 97.4 F L 70 18 116/56 99 12/08/22 01:20 97.1 F L 89 17 111/66 100 12/07/22 18:40 97.6 F 69 17 110/54 99 12/07/22 18:22 66 126/70 99 12/07/22 18:08 68 115/60 100 12/07/22 17:48 77 135/69 89 L 12/07/22 17:37 73 113/64 97 12/07/22 17:22 69 116/65 100 12/07/22 17:07 70 108/64 12/07/22 16:52 72 108/66 12/07/22 16:38 97.6 F 71 16 113/48 12/07/22 16:21 68 16 113/56 99 12/07/22 16:05 66 16 107/53 97 12/07/22 15:55 96.9 F L 70 16 117/56 97 12/07/22 14:42 98.5 F 81 20 118/56 95 Intake and Output 12/07/22 12/08/22 12/08/22 22:59 06:59 14:59 Intake Total 150 0 Output Total 20 Balance 130 0 Intake: IV 150 Blood Product 0 Unit 0 Output: Estimated Blood Loss 20 Other: # Voids 0 1 # Bowel Movements 1 1 PHYSICAL EXAMINATION: GENERAL: The patient is alert and oriented x3, not in any acute distress. Well developed, well nourished. HEENT: Pupils are round and equally reacting to light. EOMI. No scleral icterus. No conjunctival pallor. Normocephalic, atraumatic. No pharyngeal erythema. No thyromegaly. CARDIOVASCULAR: S1 and S2 present. No murmurs, rubs, or gallops. Right arm AV fistula noted no bleeding or bruising noted PULMONARY: Chest is clear to auscultation, no wheezing or crackles. ABDOMEN: Soft, nontender, nondistended, normoactive bowel sounds. No palpable organomegaly. MUSCULOSKELETAL: No joint swelling or deformity. EXTREMITIES: No cyanosis, clubbing, or pedal edema. NEUROLOGICAL: Gross neurological examination did not reveal any focal deficits. SKIN: No rashes. Results CBC & Chem 7: 12/08/22 06:25 12/08/22 06:25 Labs: Abnormal Lab Results - Last 24 Hours (Table) 12/07/22 12/07/22 12/07/22 Range/Units 16:15 16:16 17:39 RBC (3.80-5.40) m/uL Hgb (11.4-16.0) gm/dL Hct (34.0-46.0) % MCV (80.0-100.0) fL MCH (25.0-35.0) pg RDW (11.5-15.5) % Plt Count (150-450) k/uL Macrocytosis Sodium (137-145) mmol/L Carbon Dioxide (22-30) mmol/L BUN (7-17) mg/dL Creatinine (0.52-1.04) mg/dL Glucose (74-99) mg/dL POC Glucose (mg/dL) 187 H 169 H 166 H (70-110) mg/dL Hemoglobin A1c (0.0-6.0) % Calcium (8.4-10.2) mg/dL Crossmatch 12/07/22 12/07/22 12/08/22 Range/Units 18:06 20:39 06:25 RBC 1.98 L (3.80-5.40) m/uL Hgb 7.1 L (11.4-16.0) gm/dL Hct 21.4 L (34.0-46.0) % MCV 108.2 H (80.0-100.0) fL MCH 35.9 H (25.0-35.0) pg RDW 16.3 H (11.5-15.5) % Plt Count 133 L (150-450) k/uL Macrocytosis Marked A Sodium (137-145) mmol/L Carbon Dioxide (22-30) mmol/L BUN (7-17) mg/dL Creatinine (0.52-1.04) mg/dL Glucose (74-99) mg/dL POC Glucose (mg/dL) 123 H (70-110) mg/dL Hemoglobin A1c 6.2 H (0.0-6.0) % Calcium (8.4-10.2) mg/dL Crossmatch 12/08/22 12/08/22 12/08/22 Range/Units 06:25 10:27 11:43 RBC (3.80-5.40) m/uL Hgb (11.4-16.0) gm/dL Hct (34.0-46.0) % MCV (80.0-100.0) fL MCH (25.0-35.0) pg RDW (11.5-15.5) % Plt Count (150-450) k/uL Macrocytosis Sodium 136 L (137-145) mmol/L Carbon Dioxide 19 L (22-30) mmol/L BUN 50 H (7-17) mg/dL Creatinine 6.18 H (0.52-1.04) mg/dL Glucose 65 L (74-99) mg/dL POC Glucose (mg/dL) 207 H (70-110) mg/dL Hemoglobin A1c (0.0-6.0) % Calcium 6.8 L (8.4-10.2) mg/dL Crossmatch See Detail Thrombosis Risk Factor Assmnt - DVT/VTE Prophylaxis DVT/VTE Prophylaxis: Mechanical Prophylaxis ordered Assessment and Plan Assessment: Assessment and plan * Bleeding from AV fistula status post hemostasis * Anemia secondary to end-stage renal disease acute blood loss anemia * Diabetes mellitus type 2 * Coronary artery disease * History of pulmonary embolism * Consultation obtained from nephrology and vascular surgery * Patient given 1 unit of packed RBC follow-up H&H ordered * For diabetes mellitus continue patient on insulin monitor for hypoglycemia * For end-stage renal disease and fluid overload continue torsemide, nephrology to decide regarding hemodialysis., Continue midodrine for blood pressure esteban pport * In regards to history of pulmonary embolism patient was on ELIQUIS which is on hold, per patient last blood work was more than 10 years ago * CODE STATUS is full code * Care plan discussed with patient and daughter as well Time with Patient: Greater than 30
[2022-12-08 16:51] LABS: Glucose,Whole Blood 150 mg/dL (70-110)
[2022-12-08] MEDS: POTASSIUM CHLORIDE ER 20 MEQ TAB.ER PO SCH (17:15)
[2022-12-08] MEDS: AMIODARONE 200 MG TAB PO SCH (17:15)
[2022-12-08] MEDS: TORSEMIDE 20 MG TAB PO SCH (17:17)
[2022-12-08 18:12] LABS: Basophils # (A) 0.1 k/uL (0-0.2); Basophils % (A) 0 %; Eosinophils # (A) 0.1 k/uL (0-0.7); Eosinophils % (A) 1 %; Lymphocytes # (A) 3.2 k/uL (1.0-4.8); Lymphocytes % (A) 29 %; MCHC 32.6 g/dL (31.0-37.0); MCV 107.6 fL (80.0-100.0); Monocytes # (A) 0.7 k/uL (0-1.0); Monocytes % (A) 7 %; Neutrophils % (A) 62 %; Platelet Count 155 k/uL (150-450); RDW 15.9 % (11.5-15.5); WBC 11.3 k/uL (3.8-10.6)
[2022-12-08 18:31] LABS: HGB 9.1 gm/dL (11.4-16.0)
[2022-12-08 18:34] LABS: Macrocytosis Marked
[2022-12-08 20:51] LABS: Glucose,Whole Blood 181 mg/dL (70-110)
[2022-12-08] MEDS: ATORVASTATIN 20 MG TAB PO SCH (21:07)
[2022-12-08] MEDS: MIRTAZAPINE 15 MG TAB PO SCH (21:07)
[2022-12-08] MEDS: INSULIN DETEMIR (LEVEMIR) 100 UNIT/ML SYR SQ SCH (21:08)
[2022-12-09] MEDS: allopurinoL 100 MG TAB PO SCH (06:22)
[2022-12-09] MEDS: LEVOTHYROXINE 100 MCG TAB PO SCH (06:22)
[2022-12-09] MEDS: CALCIUM ACETATE 667 MG TAB PO SCH ×3 (06:22→16:54)
[2022-12-09 06:23] LABS: Glucose,Whole Blood 62 mg/dL (70-110)
[2022-12-09] MEDS: SODIUM CHLORIDE 5% OPHTH DROPS 15 ML BTL BOTH EYES SCH ×3 (06:23→16:56)
[2022-12-09] MEDS: INSULIN ASPART (NovoLOG) 100 UNIT/ML VIAL SQ SCH ×4 (06:24→20:14)
[2022-12-09 06:42] LABS: Glucose,Whole Blood 82 mg/dL (70-110)
[2022-12-09] MEDS: GABAPENTIN 100 MG CAP PO SCH ×2 (08:35→16:55)
[2022-12-09] MEDS: DOCUSATE 100 MG CAP PO SCH ×2 (08:36→19:08)
[2022-12-09] MEDS: CHOLECALCIFEROL 25 MCG (1000 IU) TABLET PO SCH (08:36)
[2022-12-09] MEDS: CYANOCOBALAMIN 500 MCG TAB PO SCH (08:36)
[2022-12-09] MEDS: Mirabegron [Myrbetriq] 25 MG Tab.Er.24h PO SCH (08:38)
[2022-12-09] MEDS: MIDODRINE 5 MG TAB PO SCH (08:38)
[2022-12-09] MEDS: NYSTATIN 100,000 UNIT/GM POWD 15 GM TOPICAL SCH ×3 (08:38→20:22)
[2022-12-09 09:04] LABS: HGB 8.2 g/dL (12.0-15.0); MCH 35.2 pg (27.0-32.0); MCHC 32.8 g/dL (32.0-37.0); MCV 107.3 fL (80.0-97.0); Mean Platelet Volume 11.1 fL (9.5-12.2); NRBC Per 100 WBC 0.3 /100 WBCS (0.0-0.0); Platelet Count 117 X 10*3/uL (140-440); RBC 2.33 X 10*6/uL (4.10-5.20); RDW 17.2 % (11.5-14.5); WBC 7.34 X 10*3/uL (4.50-10.00)
[2022-12-09 09:18] LABS: African American GFR (CKD) 5.7 (60.0-200.0); Anion Gap 14.8 mmol/L (10.00-18.00); BUN/Creat Ratio 8.25 Ratio (12.00-20.00); Blood Urea Nitrogen 56.1 mg/dL (9.0-27.0); Carbon Dioxide 21.2 mmol/L (20.0-27.5); Non-African American GFR(CKD) 4.9 (60.0-200.0); Potassium 4.6 mmol/L (3.5-5.5)
--- NOTE | 2022-12-09 11:44 | P.PN ---
Subjective Progress Note Date: 12/09/22 Interval history : 87-year-old lady with past medical history significant for end-stage renal disease on hemodialysis Friday was a Friday, history of atrial fibrillation, history of CVA, diabetes mellitus, anemia of chronic kidney disease, history of pulmonary embolism presented to the emergency department brought in after patient was noted to have bleeding from AV fistula and right arm. Patient was emergently taken for surgery and had right balloon angioplasty completed on 12/07/22. Patient was seen by vascular surgery. Patient was noted to have significant anemia with drop in hemoglobin from 8-7. Patient was noted to be taking liquids prior to hospitalization which was placed on hold. Patient had balloon angioplasty done the day before this hospitalization. SUBJECTIVE : 12/09> patient does complain of shortness of breath. Patient is alert and oriented 3. Doesn't be a little anxious. Seen by nephrology schedule for hemodialysis/. Continue to hold down liquids at this time. Breathing treatment ordered REVIEW OF SYSTEMS: NEGATIVE EXCEPT FOR shortness of breath CONSTITUTIONAL: No fever, no malaise, no fatigue. HEENT: No recent visual problems or hearing problems. Denied any sore throat. CARDIOVASCULAR: No chest pain, orthopnea, PND, no palpitations, no syncope. PULMONARY: No shortness of breath, no cough, no hemoptysis. GASTROINTESTINAL: No diarrhea, no nausea, no vomiting, no abdominal pain. NEUROLOGICAL: No headaches, no weakness, no numbness. HEMATOLOGICAL: Denies any bleeding or petechiae. GENITOURINARY: Denies any burning micturition, frequency, or urgency. MUSCULOSKELETAL/RHEUMATOLOGICAL: Denies any joint pain, swelling, or any muscle pain. ENDOCRINE: Denies any polyuria or polydipsia. PHYSICAL EXAMINATION: GENERAL: The patient is alert and oriented x3, not in any acute distress. Well developed, well nourished. HEENT: Pupils are round and equally reacting to light. EOMI. No scleral icterus. No conjunctival pallor. Normocephalic, atraumatic. No pharyngeal erythema. No thyromegaly. CARDIOVASCULAR: S1 and S2 present. No murmurs, rubs, or gallops. Right arm AV fistula noted no bleeding or bruising noted PULMONARY: Chest is clear to auscultation, no wheezing or crackles. ABDOMEN: Soft, nontender, nondistended, normoactive bowel sounds. No palpable organomegaly. MUSCULOSKELETAL: No joint swelling or deformity. EXTREMITIES: No cyanosis, clubbing, or pedal edema. NEUROLOGICAL: Gross neurological examination did not reveal any focal deficits. SKIN: No rashes. ASSESMENT & PLAN * Bleeding from AV fistula status post hemostasis POD 2 * Anemia secondary to end-stage renal disease acute blood loss anemia * Diabetes mellitus type 2 * Coronary artery disease * History of pulmonary embolism * History of atrial fibrillation * Consultation obtained from nephrology and vascular surgery * Patient given 1 unit of packed RBC 12/08, continue to hold her liquids * For diabetes mellitus continue patient on insulin monitor for hypoglycemia * For end-stage renal disease and fluid overload continue torsemide, nephrology to decide regarding hemodialysis, plan for hemodialysis 12/10 Continue midodrine for blood pressure support * In regards to history of pulmonary embolism patient was on ELIQUIS which is on hold, per patient last blood work was more than 10 years ago, * Continue amiodarone for atrial fibrillation and liquids on hold at this time * CODE STATUS is full code * Care plan discussed with patient and daughter as well on 12/08 Objective - Vital Signs Vital signs: Vital Signs Temp 97.4 F L 12/09/22 07:35 Pulse 70 12/09/22 07:35 Resp 18 12/09/22 07:35 BP 131/70 12/09/22 07:35 Pulse Ox 98 12/09/22 08:48 FiO2 Intake & Output 12/08/22 12/09/22 12/09/22 18:59 06:59 18:59 Intake Total 610 0 Balance 610 0 Intake: Oral 0 Blood Product 610 Rc As-1 Unit 310 [id number] Other: # Voids 1 # Bowel Movements 1 1 - Labs CBC & Chem 7: 12/09/22 04:59 12/09/22 04:59 Labs: Abnormal Lab Results - Last 24 Hours (Table) 12/08/22 12/08/22 12/08/22 Range/Units 10:27 11:43 16:49 WBC (3.8-10.6) k/uL RBC (3.80-5.40) m/uL Hgb (11.4-16.0) gm/dL Hct (34.0-46.0) % MCV (80.0-100.0) fL MCH (27.0-32.0) pg RDW (11.5-15.5) % Plt Count (140-440) X 10*3/uL Absolute Nucleated RBC (0.00-0.00) X 10*3/uL NRBC/100 WBC Diff (0.0-0.0) /100 WBCS Macrocytosis BUN (9.0-27.0) mg/dL Creatinine (0.6-1.5) mg/dL Est GFR (CKD-EPI)AfAm (60.0-200.0) Est GFR (CKD-EPI)NonAf (60.0-200.0) BUN/Creatinine Ratio (12.00-20.00) Ratio Glucose (70-110) mg/dL POC Glucose (mg/dL) 207 H 150 H (70-110) mg/dL Calcium (8.7-10.3) mg/dL Crossmatch See Detail 12/08/22 12/08/22 12/09/22 Range/Units 17:36 20:49 04:59 WBC 11.3 H (3.8-10.6) k/uL RBC 2.60 L 2.33 L (3.80-5.40) m/uL Hgb 9.1 L D 8.2 L (11.4-16.0) gm/dL Hct 28.0 L 25.0 L (34.0-46.0) % MCV 107.6 H 107.3 H (80.0-100.0) fL MCH 35.2 H (27.0-32.0) pg RDW 15.9 H 17.2 H (11.5-15.5) % Plt Count 117 L (140-440) X 10*3/uL Absolute Nucleated RBC 0.02 H (0.00-0.00) X 10*3/uL NRBC/100 WBC Diff 0.3 H (0.0-0.0) /100 WBCS Macrocytosis Marked A BUN (9.0-27.0) mg/dL Creatinine (0.6-1.5) mg/dL Est GFR (CKD-EPI)AfAm (60.0-200.0) Est GFR (CKD-EPI)NonAf (60.0-200.0) BUN/Creatinine Ratio (12.00-20.00) Ratio Glucose (70-110) mg/dL POC Glucose (mg/dL) 181 H (70-110) mg/dL Calcium (8.7-10.3) mg/dL Crossmatch 12/09/22 12/09/22 Range/Units 04:59 06:22 WBC (3.8-10.6) k/uL RBC (3.80-5.40) m/uL Hgb (11.4-16.0) gm/dL Hct (34.0-46.0) % MCV (80.0-100.0) fL MCH (27.0-32.0) pg RDW (11.5-15.5) % Plt Count (140-440) X 10*3/uL Absolute Nucleated RBC (0.00-0.00) X 10*3/uL NRBC/100 WBC Diff (0.0-0.0) /100 WBCS Macrocytosis BUN 56.1 H (9.0-27.0) mg/dL Creatinine 6.8 H (0.6-1.5) mg/dL Est GFR (CKD-EPI)AfAm 5.7 L (60.0-200.0) Est GFR (CKD-EPI)NonAf 4.9 L (60.0-200.0) BUN/Creatinine Ratio 8.25 L (12.00-20.00) Ratio Glucose 68 L (70-110) mg/dL POC Glucose (mg/dL) 62 L (70-110) mg/dL Calcium 7.0 L (8.7-10.3) mg/dL Crossmatch
[2022-12-09] MEDS: IPRATROPIUM-ALBUTEROL 3 ML NEB INHALATION SCH ×3 (11:48→19:44)
[2022-12-09 11:51] LABS: Glucose,Whole Blood 186 mg/dL (70-110)
[2022-12-09] MEDS: FOLIC ACID-VIT B COMPLEX-VIT C 1 CAP PO SCH (12:15)
--- NOTE | 2022-12-09 12:20 | P.PN ---
Subjective Patient is seen for follow-up for end-stage renal disease. She was admitted to the hospital with bleeding from her AVF Status post suture placement by vascular surgery and currently with no bleeding. Patient is scheduled for hemodialysis in a.m. She did tolerate her dialysis well over the weekend. Objective - Vital Signs Vital signs: Vital Signs Temp 97.4 F L 12/09/22 07:35 Pulse 76 12/09/22 12:05 Resp 18 12/09/22 07:35 BP 131/70 12/09/22 07:35 Pulse Ox 98 12/09/22 08:48 FiO2 Intake & Output 12/08/22 12/09/22 12/09/22 18:59 06:59 18:59 Intake Total 610 0 Balance 610 0 Intake: Oral 0 Blood Product 610 Rc As-1 Unit 310 [id number] Other: # Voids 1 # Bowel Movements 1 1 - Exam Awake, comfortable, no acute distress Examination of the heart S1 and S2 Examination lungs bilateral breath sounds are heard Abdomen is soft nontender Exertion lower extremity shows 1+ edema bilaterally mostly chronic [employer] exam grossly intact - Labs CBC & Chem 7: 12/09/22 04:59 12/09/22 04:59 Labs: Abnormal Lab Results - Last 24 Hours (Table) 12/08/22 12/08/22 12/08/22 Range/Units 10:27 16:49 17:36 WBC 11.3 H (3.8-10.6) k/uL RBC 2.60 L (3.80-5.40) m/uL Hgb 9.1 L D (11.4-16.0) gm/dL Hct 28.0 L (34.0-46.0) % MCV 107.6 H (80.0-100.0) fL MCH (27.0-32.0) pg RDW 15.9 H (11.5-15.5) % Plt Count (140-440) X 10*3/uL Absolute Nucleated RBC (0.00-0.00) X 10*3/uL NRBC/100 WBC Diff (0.0-0.0) /100 WBCS Macrocytosis Marked A BUN (9.0-27.0) mg/dL Creatinine (0.6-1.5) mg/dL Est GFR (CKD-EPI)AfAm (60.0-200.0) Est GFR (CKD-EPI)NonAf (60.0-200.0) BUN/Creatinine Ratio (12.00-20.00) Ratio Glucose (70-110) mg/dL POC Glucose (mg/dL) 150 H (70-110) mg/dL Calcium (8.7-10.3) mg/dL Crossmatch See Detail 12/08/22 12/09/22 12/09/22 Range/Units 20:49 04:59 04:59 WBC (3.8-10.6) k/uL RBC 2.33 L (3.80-5.40) m/uL Hgb 8.2 L (11.4-16.0) gm/dL Hct 25.0 L (34.0-46.0) % MCV 107.3 H (80.0-100.0) fL MCH 35.2 H (27.0-32.0) pg RDW 17.2 H (11.5-15.5) % Plt Count 117 L (140-440) X 10*3/uL Absolute Nucleated RBC 0.02 H (0.00-0.00) X 10*3/uL NRBC/100 WBC Diff 0.3 H (0.0-0.0) /100 WBCS Macrocytosis BUN 56.1 H (9.0-27.0) mg/dL Creatinine 6.8 H (0.6-1.5) mg/dL Est GFR (CKD-EPI)AfAm 5.7 L (60.0-200.0) Est GFR (CKD-EPI)NonAf 4.9 L (60.0-200.0) BUN/Creatinine Ratio 8.25 L (12.00-20.00) Ratio Glucose 68 L (70-110) mg/dL POC Glucose (mg/dL) 181 H (70-110) mg/dL Calcium 7.0 L (8.7-10.3) mg/dL Crossmatch 12/09/22 12/09/22 Range/Units 06:22 11:50 WBC (3.8-10.6) k/uL RBC (3.80-5.40) m/uL Hgb (11.4-16.0) gm/dL Hct (34.0-46.0) % MCV (80.0-100.0) fL MCH (27.0-32.0) pg RDW (11.5-15.5) % Plt Count (140-440) X 10*3/uL Absolute Nucleated RBC (0.00-0.00) X 10*3/uL NRBC/100 WBC Diff (0.0-0.0) /100 WBCS Macrocytosis BUN (9.0-27.0) mg/dL Creatinine (0.6-1.5) mg/dL Est GFR (CKD-EPI)AfAm (60.0-200.0) Est GFR (CKD-EPI)NonAf (60.0-200.0) BUN/Creatinine Ratio (12.00-20.00) Ratio Glucose (70-110) mg/dL POC Glucose (mg/dL) 62 L 186 H (70-110) mg/dL Calcium (8.7-10.3) mg/dL Crossmatch Assessment and Plan Assessment: 1. ESRD on dialysis Friday in [place] 2. admitted with bleeding fistula right upper arm. Status post suturing 12/07/2022. 3. 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 Diabetes mellitus 5. coronary artery disease, pulmonary embolism, rheumatoid arthritis, sleep apnea. Plan: Hemodialysis in a.m. Continue Rhina
--- NOTE | 2022-12-09 13:52 | P.PN ---
Progress Note - Text 87-year-old female patient had a processes and of the fistula in the past patient came with a massive bleeding from the fistula site patient are to the OR bleeding was controlled today on examination there is a thrill present in the graft no evidence of further bleeding discuss with nephrology patient will go for dialysis tomorrow
[2022-12-09 16:20] LABS: Glucose,Whole Blood 220 mg/dL (70-110)
[2022-12-09] MEDS: POTASSIUM CHLORIDE ER 20 MEQ TAB.ER PO SCH (16:54)
[2022-12-09] MEDS: AMIODARONE 200 MG TAB PO SCH (16:55)
[2022-12-09] MEDS: TORSEMIDE 20 MG TAB PO SCH (16:55)
[2022-12-09 19:53] LABS: Glucose,Whole Blood 303 mg/dL (70-110)
[2022-12-09] MEDS: INSULIN DETEMIR (LEVEMIR) 100 UNIT/ML SYR SQ SCH (20:14)
[2022-12-09] MEDS: MIRTAZAPINE 15 MG TAB PO SCH (20:14)
[2022-12-09] MEDS: ATORVASTATIN 20 MG TAB PO SCH (20:14)
[2022-12-09] MEDS: ACETAMINOPHEN TAB 325 MG TAB PO PRN (20:18)
[2022-12-10] MEDS: HYDROmorphone 0.5 MG/0.5 ML SYRINGE IVP PRN ×2 (00:01→09:54)
--- NOTE | 2022-12-10 00:44 | US ---
EXAM: US Duplex Right Upper Extremity Veins CLINICAL HISTORY: ITS.REASON US Reason: severe pain, rule out dvt TECHNIQUE: Real-time duplex ultrasound scan of the right upper extremity veins integrating B-mode two-dimensional vascular structure, Doppler spectral analysis, color flow Doppler imaging and compression. COMPARISON: No relevant prior studies available. FINDINGS: Deep veins: Unremarkable. No DVT in the internal jugular, subclavian, axillary, or brachial veins. The veins demonstrate normal color flow, are normally compressible, with normal phasic flow and/or augmentation response. Superficial veins: Unremarkable. No thrombus in the visualized basilic and cephalic veins. Soft tissues: No acute findings. IMPRESSION: Normal right upper extremity duplex venous ultrasound.
[2022-12-10 06:12] LABS: Glucose,Whole Blood 115 mg/dL (70-110)
[2022-12-10] MEDS: LEVOTHYROXINE 100 MCG TAB PO SCH (06:27)
[2022-12-10] MEDS: CALCIUM ACETATE 667 MG TAB PO SCH ×3 (06:28→17:42)
[2022-12-10] MEDS: allopurinoL 100 MG TAB PO SCH (06:28)
[2022-12-10] MEDS: INSULIN ASPART (NovoLOG) 100 UNIT/ML VIAL SQ SCH ×4 (06:29→21:20)
[2022-12-10] MEDS: IPRATROPIUM-ALBUTEROL 3 ML NEB INHALATION SCH ×4 (09:39→20:44)
[2022-12-10] MEDS: GABAPENTIN 100 MG CAP PO SCH ×2 (09:51→17:43)
[2022-12-10] MEDS: Mirabegron [Myrbetriq] 25 MG Tab.Er.24h PO SCH (09:52)
[2022-12-10] MEDS: DOCUSATE 100 MG CAP PO SCH ×2 (09:54→17:43)
[2022-12-10] MEDS: NYSTATIN 100,000 UNIT/GM POWD 15 GM TOPICAL SCH ×3 (10:02→21:21)
[2022-12-10] MEDS: SODIUM CHLORIDE 5% OPHTH DROPS 15 ML BTL BOTH EYES SCH ×2 (10:11→17:47)
[2022-12-10 11:17] LABS: HCT 26.7 % (37.2-46.3); HGB 8.4 g/dL (12.0-15.0); MCH 34.9 pg (27.0-32.0); MCHC 31.5 g/dL (32.0-37.0); MCV 110.8 fL (80.0-97.0); Mean Platelet Volume 11.8 fL (9.5-12.2); NRBC Per 100 WBC 0.4 /100 WBCS (0.0-0.0); Platelet Count 120 X 10*3/uL (140-440); RBC 2.41 X 10*6/uL (4.10-5.20); RDW 16.9 % (11.5-14.5)
[2022-12-10 11:30] LABS: Anion Gap 16.4 mmol/L (10.00-18.00); BUN/Creat Ratio 8.55 Ratio (12.00-20.00); Blood Urea Nitrogen 64.4 mg/dL (9.0-27.0); Carbon Dioxide 16.5 mmol/L (20.0-27.5); Non-African American GFR(CKD) 4.4 (60.0-200.0); Potassium 6.2 mmol/L (3.5-5.5)
[2022-12-10 12:06] LABS: Glucose,Whole Blood 159 mg/dL (70-110)
--- NOTE | 2022-12-10 12:09 | P.PN ---
Subjective Patient is seen for follow-up for end-stage renal disease. She was admitted to the hospital with bleeding from her AVF Status post suture placement by vascular surgery and currently with no bleeding. Patient is scheduled for hemodialysis today She did tolerate her dialysis well over the weekend. No significant complaints. Objective - Vital Signs Vital signs: Vital Signs Temp 97.2 F L 12/10/22 08:03 Pulse 76 12/10/22 09:54 Resp 19 12/10/22 08:03 BP 131/71 12/10/22 08:03 Pulse Ox 100 12/10/22 08:03 FiO2 Intake & Output 12/09/22 12/10/22 12/10/22 18:59 06:59 18:59 Intake Total 240 236 Output Total 5 Balance 240 231 Intake: Intake, IV Titration 240 Amount Sodium Chloride 0.9% 1, 240 000 ml @ 0 mls/hr IV .[facility] Rx#:[id number] Oral 236 Output: Urine 5 Other: Voiding Method Bedpan # Voids 2 1 # Bowel Movements 1 - Exam Awake, comfortable, no acute distress Examination of the heart S1 and S2 Examination lungs bilateral breath sounds are heard Abdomen is soft nontender Examination of lower extremity shows 1+ edema bilaterally mostly chronic 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 - Labs CBC & Chem 7: 12/10/22 05:39 12/10/22 05:39 Labs: Abnormal Lab Results - Last 24 Hours (Table) 12/09/22 12/09/22 12/10/22 Range/Units 16:19 19:50 05:39 RBC 2.41 L (4.10-5.20) X 10*6/uL Hgb 8.4 L (12.0-15.0) g/dL Hct 26.7 L (37.2-46.3) % MCV 110.8 H (80.0-97.0) fL MCH 34.9 H (27.0-32.0) pg MCHC 31.5 L (32.0-37.0) g/dL RDW 16.9 H (11.5-14.5) % Plt Count 120 L (140-440) X 10*3/uL Absolute Nucleated RBC 0.03 H (0.00-0.00) X 10*3/uL NRBC/100 WBC Diff 0.4 H (0.0-0.0) /100 WBCS Sodium (135-145) mmol/L Potassium (3.5-5.5) mmol/L Carbon Dioxide (20.0-27.5) mmol/L BUN (9.0-27.0) mg/dL Creatinine (0.6-1.5) mg/dL Est GFR (CKD-EPI)AfAm (60.0-200.0) Est GFR (CKD-EPI)NonAf (60.0-200.0) BUN/Creatinine Ratio (12.00-20.00) Ratio POC Glucose (mg/dL) 220 H 303 H (70-110) mg/dL Calcium (8.7-10.3) mg/dL 12/10/22 12/10/22 12/10/22 Range/Units 05:39 06:10 12:04 RBC (4.10-5.20) X 10*6/uL Hgb (12.0-15.0) g/dL Hct (37.2-46.3) % MCV (80.0-97.0) fL MCH (27.0-32.0) pg MCHC (32.0-37.0) g/dL RDW (11.5-14.5) % Plt Count (140-440) X 10*3/uL Absolute Nucleated RBC (0.00-0.00) X 10*3/uL NRBC/100 WBC Diff (0.0-0.0) /100 WBCS Sodium 132 L (135-145) mmol/L Potassium 6.2 H* (3.5-5.5) mmol/L Carbon Dioxide 16.5 L (20.0-27.5) mmol/L BUN 64.4 H (9.0-27.0) mg/dL Creatinine 7.5 H* (0.6-1.5) mg/dL Est GFR (CKD-EPI)AfAm 5.0 L (60.0-200.0) Est GFR (CKD-EPI)NonAf 4.4 L (60.0-200.0) BUN/Creatinine Ratio 8.55 L (12.00-20.00) Ratio POC Glucose (mg/dL) 115 H 159 H (70-110) mg/dL Calcium 7.0 L (8.7-10.3) mg/dL Assessment and Plan Assessment: 1. ESRD on dialysis [facility] Thursday Saturday in [place] 2. admitted with bleeding fistula right upper arm. Status post suturing 12/07/2022. 3. 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 Diabetes mellitus 5. coronary artery disease, pulmonary embolism, rheumatoid arthritis, sleep apnea. 6. Hyperkalemia expect improvement with hemodialysis today Plan: Hemodialysis today Continue Aralelo
--- NOTE | 2022-12-10 13:28 | P.PN ---
Subjective Progress Note Date: 12/10/22 Principal diagnosis: Bleeding form hemodialysis access Interval history : 87-year-old lady with past medical history significant for end-stage renal disease on hemodialysis Friday was a Friday, history of atrial fibrillation, history of CVA, diabetes mellitus, anemia of chronic kidney disease, history of pulmonary embolism presented to the emergency department brought in after patient was noted to have bleeding from AV fistula and right arm. Patient was emergently taken for surgery and had right balloon angioplasty completed on 12/07/22. Patient was seen by vascular surgery. Patient was noted to have significant anemia with drop in hemoglobin from 8-7. Patient was noted to be taking liquids prior to hospitalization which was placed on hold. Patient had balloon angioplasty done the day before this hospitalization. Eventually anticoagulation was resumed on 12/10. Patient underwent successful hemodialysis while inpatient SUBJECTIVE : 12/09> patient does complain of shortness of breath. Patient is alert and oriented 3. Doesn't be a little anxious. Seen by nephrology schedule for hemodialysis. Continue to hold down liquids at this time. Breathing treatment ordered 12/10: Patient continued to complain of shortness of breath plan for hemodialysis today, potassium noted to be 6 oral potassium discontinue patient going for hemodialysis, we'll start a liquid REVIEW OF SYSTEMS: NEGATIVE EXCEPT FOR shortness of breath CONSTITUTIONAL: No fever, no malaise, no fatigue. HEENT: No recent visual problems or hearing problems. Denied any sore throat. CARDIOVASCULAR: No chest pain, orthopnea, PND, no palpitations, no syncope. PULMONARY: No shortness of breath, no cough, no hemoptysis. GASTROINTESTINAL: No diarrhea, no nausea, no vomiting, no abdominal pain. NEUROLOGICAL: No headaches, no weakness, no numbness. HEMATOLOGICAL: Denies any bleeding or petechiae. GENITOURINARY: Denies any burning micturition, frequency, or urgency. MUSCULOSKELETAL/RHEUMATOLOGICAL: Denies any joint pain, swelling, or any muscle pain. ENDOCRINE: Denies any polyuria or polydipsia. PHYSICAL EXAMINATION: GENERAL: The patient is alert and oriented x3, not in any acute distress. Well developed, well nourished. HEENT: Pupils are round and equally reacting to light. EOMI. No scleral icterus. No conjunctival pallor. Normocephalic, atraumatic. No pharyngeal erythema. No thyromegaly. CARDIOVASCULAR: S1 and S2 present. No murmurs, rubs, or gallops. Right arm AV fistula noted no bleeding or bruising noted PULMONARY: Chest is clear to auscultation, no wheezing or crackles. ABDOMEN: Soft, nontender, nondistended, normoactive bowel sounds. No palpable organomegaly. MUSCULOSKELETAL: No joint swelling or deformity. EXTREMITIES: No cyanosis, clubbing, or pedal edema. NEUROLOGICAL: Gross neurological examination did not reveal any focal deficits. SKIN: No rashes. ASSESMENT & PLAN * Bleeding from AV fistula status post hemostasis POD 3 * Anemia secondary to end-stage renal disease acute blood loss anemia * Diabetes mellitus type 2 * Coronary artery disease * History of pulmonary embolism * History of atrial fibrillation * Consultation obtained from nephrology and vascular surgery * Patient given 1 unit of packed RBC 12/08, resumed anticoagulation eliquis 12/10 * For diabetes mellitus continue patient on insulin monitor for hypoglycemia * For end-stage renal disease and fluid overload continue torsemide, nephrology to decide regarding hemodialysis, plan for hemodialysis 12/10 Continue midodrine for blood pressure support * In regards to history of pulmonary embolism patient was on ELIQUIS which was on hold, however resumed 12/10 * Continue amiodarone for atrial fibrillation and devaluation resumed 12/10 * CODE STATUS is full code * Expected discharge for 12/11 Objective - Vital Signs Vital signs: Vital Signs Temp 97.2 F L 12/10/22 08:03 Pulse 52 L 12/10/22 13:15 Resp 19 12/10/22 08:03 BP 131/71 12/10/22 08:03 Pulse Ox 100 12/10/22 08:03 FiO2 Intake & Output 12/09/22 12/10/22 12/10/22 18:59 06:59 18:59 Intake Total 240 236 Output Total 5 Balance 240 231 Intake: Intake, IV Titration 240 Amount Sodium Chloride 0.9% 1, 240 000 ml @ 0 mls/hr IV .[employer] [facility] Rx#:[id number] Oral 236 Output: Urine 5 Other: Voiding Method Bedpan # Voids 2 1 # Bowel Movements 1 - Labs CBC & Chem 7: 12/10/22 05:39 12/10/22 05:39 Labs: Abnormal Lab Results - Last 24 Hours (Table) 12/09/22 12/09/22 12/10/22 Range/Units 16:19 19:50 05:39 RBC 2.41 L (4.10-5.20) X 10*6/uL Hgb 8.4 L (12.0-15.0) g/dL Hct 26.7 L (37.2-46.3) % MCV 110.8 H (80.0-97.0) fL MCH 34.9 H (27.0-32.0) pg MCHC 31.5 L (32.0-37.0) g/dL RDW 16.9 H (11.5-14.5) % Plt Count 120 L (140-440) X 10*3/uL Absolute Nucleated RBC 0.03 H (0.00-0.00) X 10*3/uL NRBC/100 WBC Diff 0.4 H (0.0-0.0) /100 WBCS Sodium (135-145) mmol/L Potassium (3.5-5.5) mmol/L Carbon Dioxide (20.0-27.5) mmol/L BUN (9.0-27.0) mg/dL Creatinine (0.6-1.5) mg/dL Est GFR (CKD-EPI)AfAm (60.0-200.0) Est GFR (CKD-EPI)NonAf (60.0-200.0) BUN/Creatinine Ratio (12.00-20.00) Ratio POC Glucose (mg/dL) 220 H 303 H (70-110) mg/dL Calcium (8.7-10.3) mg/dL 12/10/22 12/10/22 12/10/22 Range/Units 05:39 06:10 12:04 RBC (4.10-5.20) X 10*6/uL Hgb (12.0-15.0) g/dL Hct (37.2-46.3) % MCV (80.0-97.0) fL MCH (27.0-32.0) pg MCHC (32.0-37.0) g/dL RDW (11.5-14.5) % Plt Count (140-440) X 10*3/uL Absolute Nucleated RBC (0.00-0.00) X 10*3/uL NRBC/100 WBC Diff (0.0-0.0) /100 WBCS Sodium 132 L (135-145) mmol/L Potassium 6.2 H* (3.5-5.5) mmol/L Carbon Dioxide 16.5 L (20.0-27.5) mmol/L BUN 64.4 H (9.0-27.0) mg/dL Creatinine 7.5 H* (0.6-1.5) mg/dL Est GFR (CKD-EPI)AfAm 5.0 L (60.0-200.0) Est GFR (CKD-EPI)NonAf 4.4 L (60.0-200.0) BUN/Creatinine Ratio 8.55 L (12.00-20.00) Ratio POC Glucose (mg/dL) 115 H 159 H (70-110) mg/dL Calcium 7.0 L (8.7-10.3) mg/dL
[2022-12-10] MEDS: MIDODRINE 5 MG TAB PO SCH (17:16)
[2022-12-10 17:26] LABS: Glucose,Whole Blood 192 mg/dL (70-110)
[2022-12-10] MEDS: AMIODARONE 200 MG TAB PO SCH (17:42)
[2022-12-10] MEDS: APIXABAN 2.5 MG TABLET PO SCH (17:43)
[2022-12-10] MEDS: CHOLECALCIFEROL 25 MCG (1000 IU) TABLET PO SCH (17:43)
[2022-12-10] MEDS: FOLIC ACID-VIT B COMPLEX-VIT C 1 CAP PO SCH (17:44)
[2022-12-10] MEDS: LORATADINE 10 MG TAB PO SCH (17:47)
[2022-12-10] MEDS: CYANOCOBALAMIN 500 MCG TAB PO SCH (17:47)
[2022-12-10] MEDS: TORSEMIDE 20 MG TAB PO SCH (18:49)
[2022-12-10 20:42] LABS: Glucose,Whole Blood 283 mg/dL (70-110)
[2022-12-10] MEDS: ATORVASTATIN 20 MG TAB PO SCH (21:20)
[2022-12-10] MEDS: INSULIN DETEMIR (LEVEMIR) 100 UNIT/ML SYR SQ SCH (21:20)
[2022-12-10] MEDS: MIRTAZAPINE 15 MG TAB PO SCH (21:20)
[2022-12-10] MEDS: ACETAMINOPHEN TAB 325 MG TAB PO PRN (21:21)
[2022-12-11 06:07] LABS: Glucose,Whole Blood 91 mg/dL (70-110)
[2022-12-11] MEDS: INSULIN ASPART (NovoLOG) 100 UNIT/ML VIAL SQ SCH ×2 (06:19→13:43)
[2022-12-11 06:26] LABS: Anisocytosis Slight; HCT 25.5 % (34.0-46.0); HGB 8.3 gm/dL (11.4-16.0); MCH 35.9 pg (25.0-35.0); MCHC 32.6 g/dL (31.0-37.0); MCV 109.8 fL (80.0-100.0); Mean Platelet Volume 9.2; Platelet Count 112 k/uL (150-450); RBC 2.32 m/uL (3.80-5.40); RDW 16.1 % (11.5-15.5); WBC 6.2 k/uL (3.8-10.6)
[2022-12-11] MEDS: LEVOTHYROXINE 100 MCG TAB PO SCH (06:30)
[2022-12-11] MEDS: CALCIUM ACETATE 667 MG TAB PO SCH ×2 (06:30→13:42)
[2022-12-11] MEDS: allopurinoL 100 MG TAB PO SCH (06:30)
[2022-12-11 06:31] LABS: Macrocytosis Marked
[2022-12-11 06:32] LABS: African American GFR (CKD) 11 (>60 ml/min/1.73 sqM); Anion Gap 9 mmol/L; Blood Urea Nitrogen 37 mg/dL (7-17); Calcium 7.5 mg/dL (8.4-10.2); Carbon Dioxide 24 mmol/L (22-30); Chloride 101 mmol/L (98-107); Glucose 80 mg/dL (74-99); Non-African American GFR(CKD) 9 (>60 ml/min/1.73 sqM); Potassium 4.4 mmol/L (3.5-5.1); Sodium 134 mmol/L (137-145)
[2022-12-11] MEDS: IPRATROPIUM-ALBUTEROL 3 ML NEB INHALATION SCH ×3 (09:13→15:58)
[2022-12-11] MEDS: SODIUM CHLORIDE 5% OPHTH DROPS 15 ML BTL BOTH EYES SCH (09:33)
[2022-12-11] MEDS: APIXABAN 2.5 MG TABLET PO SCH (09:33)
[2022-12-11] MEDS: GABAPENTIN 100 MG CAP PO SCH (09:34)
[2022-12-11] MEDS: MIDODRINE 5 MG TAB PO SCH (09:34)
[2022-12-11] MEDS: DOCUSATE 100 MG CAP PO SCH (09:34)
[2022-12-11] MEDS: CYANOCOBALAMIN 500 MCG TAB PO SCH (09:34)
[2022-12-11] MEDS: Mirabegron [Myrbetriq] 25 MG Tab.Er.24h PO SCH (09:45)
--- NOTE | 2022-12-11 11:09 | P.PN ---
Subjective Patient is seen for follow-up for end-stage renal disease. She was admitted to the hospital with bleeding from her AVF Status post suture placement by vascular surgery and currently with no bleeding. Patient is s/p hemodialysis yesterday with UF of about 1.5 L. This morning patient is complaining of shortness of breath. She is scheduled for extra treatment today. Objective - Vital Signs Vital signs: Vital Signs Temp 97.7 F 12/11/22 07:19 Pulse 86 12/11/22 09:25 Resp 19 12/11/22 08:26 BP 113/55 12/11/22 07:19 Pulse Ox 98 12/11/22 09:23 FiO2 Intake & Output 12/10/22 12/11/22 12/11/22 18:59 06:59 18:59 Intake Total 972 236 Output Total 1505 Balance -533 236 Intake: Oral 472 236 Hemodialysis 500 Output: Urine 5 Hemodialysis 1500 Other: Voiding Method Bedpan Bedpan Diaper Diaper # Voids 1 1 # Bowel Movements 1 - Exam Awake, comfortable, no acute distress Examination of the heart S1 and S2 Examination lungs bilateral breath sounds are heard, decreased at the bases Abdomen is soft nontender Examination of lower extremity shows 1+ edema bilaterally mostly chronic 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 - Labs CBC & Chem 7: 12/11/22 05:22 12/11/22 05:22 Labs: Abnormal Lab Results - Last 24 Hours (Table) 12/10/22 12/10/22 12/10/22 Range/Units 05:39 05:39 12:04 RBC 2.41 L (4.10-5.20) X 10*6/uL Hgb 8.4 L (12.0-15.0) g/dL Hct 26.7 L (37.2-46.3) % MCV 110.8 H (80.0-97.0) fL MCH 34.9 H (27.0-32.0) pg MCHC 31.5 L (32.0-37.0) g/dL RDW 16.9 H (11.5-14.5) % Plt Count 120 L (140-440) X 10*3/uL Absolute Nucleated RBC 0.03 H (0.00-0.00) X 10*3/uL NRBC/100 WBC Diff 0.4 H (0.0-0.0) /100 WBCS Macrocytosis Sodium 132 L (135-145) mmol/L Potassium 6.2 H* (3.5-5.5) mmol/L Carbon Dioxide 16.5 L (20.0-27.5) mmol/L BUN 64.4 H (9.0-27.0) mg/dL Creatinine 7.5 H* (0.6-1.5) mg/dL Est GFR (CKD-EPI)AfAm 5.0 L (60.0-200.0) Est GFR (CKD-EPI)NonAf 4.4 L (60.0-200.0) BUN/Creatinine Ratio 8.55 L (12.00-20.00) Ratio POC Glucose (mg/dL) 159 H (70-110) mg/dL Calcium 7.0 L (8.7-10.3) mg/dL 12/10/22 12/10/22 12/11/22 Range/Units 17:25 20:40 05:22 RBC 2.32 L (4.10-5.20) X 10*6/uL Hgb 8.3 L (12.0-15.0) g/dL Hct 25.5 L (37.2-46.3) % MCV 109.8 H (80.0-97.0) fL MCH 35.9 H (27.0-32.0) pg MCHC (32.0-37.0) g/dL RDW 16.1 H (11.5-14.5) % Plt Count 112 L (140-440) X 10*3/uL Absolute Nucleated RBC (0.00-0.00) X 10*3/uL NRBC/100 WBC Diff (0.0-0.0) /100 WBCS Macrocytosis Marked A Sodium (135-145) mmol/L Potassium (3.5-5.5) mmol/L Carbon Dioxide (20.0-27.5) mmol/L BUN (9.0-27.0) mg/dL Creatinine (0.6-1.5) mg/dL Est GFR (CKD-EPI)AfAm (60.0-200.0) Est GFR (CKD-EPI)NonAf (60.0-200.0) BUN/Creatinine Ratio (12.00-20.00) Ratio POC Glucose (mg/dL) 192 H 283 H (70-110) mg/dL Calcium (8.7-10.3) mg/dL 12/11/22 Range/Units 05:22 RBC (4.10-5.20) X 10*6/uL Hgb (12.0-15.0) g/dL Hct (37.2-46.3) % MCV (80.0-97.0) fL MCH (27.0-32.0) pg MCHC (32.0-37.0) g/dL RDW (11.5-14.5) % Plt Count (140-440) X 10*3/uL Absolute Nucleated RBC (0.00-0.00) X 10*3/uL NRBC/100 WBC Diff (0.0-0.0) /100 WBCS Macrocytosis Sodium 134 L (135-145) mmol/L Potassium (3.5-5.5) mmol/L Carbon Dioxide (20.0-27.5) mmol/L BUN 37 H (9.0-27.0) mg/dL Creatinine 4.08 H (0.6-1.5) mg/dL Est GFR (CKD-EPI)AfAm (60.0-200.0) Est GFR (CKD-EPI)NonAf (60.0-200.0) BUN/Creatinine Ratio (12.00-20.00) Ratio POC Glucose (mg/dL) (70-110) mg/dL Calcium 7.5 L (8.7-10.3) mg/dL Assessment and Plan Assessment: 1. ESRD on dialysis Friday in [place] 2. admitted with bleeding fistula right upper arm. Status post suturing 12/07/2022. 3. 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 Diabetes mellitus 5. coronary artery disease, pulmonary embolism, rheumatoid arthritis, sleep apnea. 6. Hyperkalemia expect improvement with hemodialysis today 7. Volume overload, patient can have an extra treatment with UF of about 3 L as tolerated. Plan: Repeat Hemodialysis today with increase UF at 2-3 L as tolerated. Continue Aranesp
[2022-12-11] MEDS: NYSTATIN 100,000 UNIT/GM POWD 15 GM TOPICAL SCH ×2 (11:29→15:05)
[2022-12-11 11:56] LABS: Glucose,Whole Blood 129 mg/dL (70-110)
[2022-12-11] MEDS ORDERED: MIDODRINE 5 MG TAB PO ONE ×2 (12:00)
[2022-12-11] MEDS: FOLIC ACID-VIT B COMPLEX-VIT C 1 CAP PO SCH (13:43)
[2022-12-11] MEDS: CHOLECALCIFEROL 25 MCG (1000 IU) TABLET PO SCH (13:43)
[2022-12-11 14:08] VITALS: BP 110/63; TEMP 97.4
[2022-12-11 14:12] VITALS: RESP 19
--- NOTE | 2022-12-11 14:24 | P.DS ---
Providers Date of admission: 12/07/22 14:09 Expected date of discharge: 12/11/22 Attending physician: Luis E Velez Consults: 12/07/22 14:08 Consult Physician Urgent Consulting Provider: Erik Argueta Consult Reason/Comments: Hemorrhaging AV fistula Do you want consulting provider notified?: Yes 12/08/22 09:03 Consult Physician Routine Consulting Provider: Shaji Velazco Consult Reason/Comments: ESRD, On HD, Eval for resumption of HD while inpatient Do you want consulting provider notified?: Yes 12/10/22 15:44 Consult to Palliative Care Routine Consulting Provider: Shilpi Arnold Consult Reason/Comments: Goals of care, need to discuss hospice Do you want consulting provider notified?: Yes Primary care physician: [facility] Course: Bleeding form hemodialysis access Interval history : 87-year-old lady with past medical history significant for end-stage renal disease on hemodialysis Friday was a Friday, history of atrial fibrillation, history of CVA, diabetes mellitus, anemia of chronic kidney disease, history of pulmonary embolism presented to the emergency department brought in after patient was noted to have bleeding from AV fistula and right arm. Patient was emergently taken for surgery and had right balloon angioplasty completed on 12/07/22. Patient was seen by vascular surgery. Patient was noted to have significant anemia with drop in hemoglobin from 8-7. Patient was noted to be taking liquids prior to hospitalization which was placed on hold. Patient had balloon angioplasty done the day before this hospitalization. Eventually anticoagulation was resumed on 12/10. Patient underwent successful hemodialysis while inpatient 12/09> patient does complain of shortness of breath. Patient is alert and oriented 3. Doesn't be a little anxious. Seen by nephrology schedule for hemodialysis. Continue to hold down liquids at this time. Breathing treatment ordered 12/10: Patient continued to complain of shortness of breath plan for hemodialysis today, potassium noted to be 6 oral potassium discontinue patient going for hemodialysis, we'll start eliquis 12/11: Patient had hemodialysis completed, at this time patient doesn't want to pursue comfort measures and hospice will be discharged back to facility. Patient daughter was concerned whether she will be hospice eligible had consulted palliative care team however they could not see the patient prior to discharge PHYSICAL EXAMINATION: GENERAL: The patient is alert and oriented x3, not in any acute distress. Well developed, well nourished. HEENT: Pupils are round and equally reacting to light. EOMI. No scleral icterus. No conjunctival pallor. Normocephalic, atraumatic. No pharyngeal erythema. No thyromegaly. CARDIOVASCULAR: S1 and S2 present. No murmurs, rubs, or gallops. Right arm AV fistula noted no bleeding or bruising noted PULMONARY: Chest is clear to auscultation, no wheezing or crackles. ABDOMEN: Soft, nontender, nondistended, normoactive bowel sounds. No palpable organomegaly. MUSCULOSKELETAL: No joint swelling or deformity. EXTREMITIES: No cyanosis, clubbing, or pedal edema. NEUROLOGICAL: Gross neurological examination did not reveal any focal deficits. SKIN: No rashes. ASSESMENT & PLAN * Bleeding from AV fistula status post hemostasis POD 3 * Anemia secondary to end-stage renal disease acute blood loss anemia * Diabetes mellitus type 2 * Coronary artery disease * History of pulmonary embolism * History of atrial fibrillation * Consultation obtained from nephrology and vascular surgery * Patient given 1 unit of packed RBC 12/08, resumed anticoagulation eliquis 12/10 * For diabetes mellitus continue patient on insulin monitor for hypoglycemia * For end-stage renal disease and fluid overload continue torsemide, nephrology to decide regarding hemodialysis, plan for hemodialysis 12/10 Continue midodrine for blood pressure support * In regards to history of pulmonary embolism patient was on ELIQUIS which was on hold, however resumed 12/10 * Continue amiodarone for atrial fibrillation and devaluation resumed 12/10 * discharge for 12/11 Patient Condition at Discharge: Fair Plan - Discharge Summary Discharge Rx Participant: No New Discharge Prescriptions: Continue Levothyroxine Sodium [Synthroid] 100 mcg PO DAILY allopurinoL [Zyloprim] 100 mg PO AC-BRKFST Calcium Acetate [PhosLo] 2,001 mg PO TID-W/MEALS Mirtazapine [Remeron] 15 mg PO HS Cyanocobalamin [Vitamin B-12] 500 mcg PO DAILY #30 tab Atorvastatin [Lipitor] 20 mg PO HS Biotin 10 mg PO DAILY@1700 bisacodyL [Dulcolax] 10 mg RECTAL DAILY PRN PRN Reason: Constipation INSULIN LISPRO (HumaLOG) [humaLOG] See Protocol SQ AC-TID Loratadine [Claritin] 10 mg PO Q2D metroNIDAZOLE 0.75% CREAM [Metrocream 0.75%] 1 applic TOPICAL BID PRN PRN Reason: face rosacea Mirabegron [Myrbetriq] 25 mg PO DAILY Nystatin 100,000 Unit/gm Powd [Mycostatin Powder] 1 applic TOPICAL TID Potassium Chloride [Klor-Con M20] 20 meq PO DAILY@1700 Torsemide [Demadex] 60 mg PO DAILY@1700 Gabapentin [Neurontin] 100 mg PO DAILY@1700 #3 cap Calcium Carbonate [Tums] 1,000 mg PO QID PRN PRN Reason: between meals and snacks Folic Acid-Vit B Complex-Vit C [Nephrocaps] 1 cap PO AC-LUNCH Cholecalciferol [Vitamin D3 (25 Mcg = 1000 Iu)] 100 mcg PO AC-LUNCH Apixaban [Eliquis] 2.5 mg PO BID@0800,1700 Acetaminophen [Tylenol 8 Hour] 650 mg PO Q4H PRN PRN Reason: general discomfort Amiodarone [Cordarone] 200 mg PO DAILY@1700 Chlorhexidine Gluconate [Hibiclens] 1 applic TOPICAL [place] Docusate [Colace] 100 mg PO BID@0800,1700 guaiFENesin [guaiFENesin Oral Solution] 200 mg PO Q4H PRN PRN Reason: Cough Insulin Glargine [Lantus Vial] 15 unit SQ HS Midodrine HCl [ProAmatine] 10 mg PO DAILY Sodium Chloride 5% Ophth Soln [Nikko 128] 1 drop BOTH EYES BID@0800,1700 Ondansetron [Zofran] 4 mg PO DAILY PRN PRN Reason: Nausea Gabapentin [Neurontin] 200 mg PO DAILY@0800 #3 cap Discharge Medication List Levothyroxine Sodium [Synthroid] 100 mcg PO DAILY 01/31/14 [History] allopurinoL [Zyloprim] 100 mg PO AC-BRKFST 01/18/17 [History] Calcium Acetate [PhosLo] 2,001 mg PO TID-W/MEALS 05/25/20 [History] Mirtazapine [Remeron] 15 mg PO HS 05/25/20 [History] Calcium Carbonate [Tums] 1,000 mg PO QID PRN 01/10/21 [History] Cholecalciferol [Vitamin D3 (25 Mcg = 1000 Iu)] 100 mcg PO AC-LUNCH 01/10/21 [History] Folic Acid-Vit B Complex-Vit C [Nephrocaps] 1 cap PO AC-LUNCH 01/10/21 [History] Cyanocobalamin [Vitamin B-12] 500 mcg PO DAILY #30 tab 02/06/21 [Rx] Apixaban [Eliquis] 2.5 mg PO BID@0800,1700 03/21/21 [History] Acetaminophen [Tylenol 8 Hour] 650 mg PO Q4H PRN 12/03/22 [History] Amiodarone [Cordarone] 200 mg PO DAILY@169912/03/22 [History] Atorvastatin [Lipitor] 20 mg PO HS 12/03/22 [History] Biotin 10 mg PO DAILY@169912/03/22 [History] Chlorhexidine Gluconate [Hibiclens] 1 applic TOPICAL [place] 12/03/22 [History] Docusate [Colace] 100 mg PO BID@0800,169912/03/22 [History] INSULIN LISPRO (HumaLOG) [humaLOG] See Protocol SQ AC-TID 12/03/22 [History] Insulin Glargine [Lantus Vial] 15 unit SQ HS 12/03/22 [History] Loratadine [Claritin] 10 mg PO Q2D 12/03/22 [History] Midodrine HCl [ProAmatine] 10 mg PO DAILY 12/03/22 [History] Mirabegron [Myrbetriq] 25 mg PO DAILY 12/03/22 [History] Nystatin 100,000 Unit/gm Powd [Mycostatin Powder] 1 applic TOPICAL TID 12/03/22 [History] Ondansetron [Zofran] 4 mg PO DAILY PRN 12/03/22 [History] Potassium Chloride [Klor-Con M20] 20 meq PO DAILY@169912/03/22 [History] Sodium Chloride 5% Ophth Soln [Nikko 128] 1 drop BOTH EYES BID@0800,0 12/03/22 [History] Torsemide [Demadex] 60 mg PO DAILY@169912/03/22 [History] bisacodyL [Dulcolax] 10 mg RECTAL DAILY PRN 12/03/22 [History] guaiFENesin [guaiFENesin Oral Solution] 200 mg PO Q4H PRN 12/03/22 [History] metroNIDAZOLE 0.75% CREAM [Metrocream 0.75%] 1 applic TOPICAL BID PRN 12/03/22 [History] Gabapentin [Neurontin] 100 mg PO DAILY@1700 #3 cap 12/11/22 [Rx] Gabapentin [Neurontin] 200 mg PO DAILY@0800 #3 cap 12/11/22 [Rx] Follow up Appointment(s)/Referral(s): Gama Mcginnis MD [Primary Care Provider] - 1-2 days Discharge Disposition: TRANSFER TO SNF/ECF
[2022-12-11 16:12] VITALS: PULSE 86
== END 2022-12-11 16:22 | DRG 264 ==
LOC: EC 12:52 → SUPCPDRO 12:52 → 4SSUR 14:09
PROVIDERS: ADMIT Hospitalist; ATTEND Hospitalist
PROC: 0X380ZZ Control Bleeding in Right Upper Arm, Open Approach (ICD-10-PCS; principal; 2022-12-07 14:26)
PROC: 0X380ZZ Control Bleeding in Right Upper Arm, Open Approach (ICD-10-PCS; 2022-12-08)
PROC: 5A1D70Z Performance of Urinary Filtration, Intermittent, Less than 6 Hours Per Day (ICD-10-PCS; 2022-12-08)
PROC: 30233N1 Transfusion of Nonautologous Red Blood Cells into Peripheral Vein, Percutaneous Approach (ICD-10-PCS; 2022-12-08)
DX: T82.838A Hemorrhage due to vascular prosthetic devices, implants and grafts, initial encounter (principal); N18.6 End stage renal disease; I13.2 Hypertensive heart and chronic kidney disease with heart failure and with stage 5 chronic kidney disease, or end stage renal disease; D62 Acute posthemorrhagic anemia; I49.5 Sick sinus syndrome; D63.1 Anemia in chronic kidney disease; E11.22 Type 2 diabetes mellitus with diabetic chronic kidney disease; E11.42 Type 2 diabetes mellitus with diabetic polyneuropathy; I50.9 Heart failure, unspecified; M06.9 Rheumatoid arthritis, unspecified; E03.9 Hypothyroidism, unspecified; Z66 Do not resuscitate; H91.90 Unspecified hearing loss, unspecified ear; G47.33 Obstructive sleep apnea (adult) (pediatric); G89.29 Other chronic pain; M54.9 Dorsalgia, unspecified; M25.562 Pain in left knee; M25.561 Pain in right knee; I48.91 Unspecified atrial fibrillation; I25.10 Atherosclerotic heart disease of native coronary artery without angina pectoris; E87.5 Hyperkalemia; E78.5 Hyperlipidemia, unspecified; Y71.1 Therapeutic (nonsurgical) and rehabilitative cardiovascular devices associated with adverse incidents; Z99.2 Dependence on renal dialysis; Z86.14 Personal history of Methicillin resistant Staphylococcus aureus infection; Z95.818 Presence of other cardiac implants and grafts; I25.2 Old myocardial infarction; Z86.73 Personal history of transient ischemic attack (TIA), and cerebral infarction without residual deficits; Z86.718 Personal history of other venous thrombosis and embolism; Z88.2 Allergy status to sulfonamides; Z88.0 Allergy status to penicillin; Z88.5 Allergy status to narcotic agent; Z79.899 Other long term (current) drug therapy; Z79.891 Long term (current) use of opiate analgesic; Z79.4 Long term (current) use of insulin; Z79.01 Long term (current) use of anticoagulants; Z79.890 Hormone replacement therapy; Z87.891 Personal history of nicotine dependence; Z86.711 Personal history of pulmonary embolism
CPT/HCPCS: 36415; 80048; 80053; 83036; 85025; 85027; 85610; 85730; 86850; 86900; 86901; 86920; 87635; 90935; 94640; 94760; 96360; 99285

== ENCOUNTER 2023-02-19 21:15 | Inpatient (IN) | payer MEDICARE, OTHER ==
--- NOTE | 2023-02-19 22:26 | CT ---
EXAMINATION TYPE: CT brain wo con CT DLP: 1307 mGycm, Automated exposure control for dose reduction was used. DATE OF EXAM: 02/19/2023 10:08 PM COMPARISON: 02/02/2021. CLINICAL INDICATION:Female, 87 years old with history of Altered mental status, TECHNIQUE: Brain: Axial CT images of the brain were obtained with coronal and sagittal reformats created and rev iewed. Contrast used: None. Oral contrast used: None. FINDINGS: Brain: Extra-axial spaces: No abnormal extra-axial fluid collections. Ventricular system: Dilatation in proportion to cerebral atrophy. Cerebral parenchyma: Cerebral atrophy. Remote left frontal lobe injury. No acute intraparenchymal hem orrhage or mass effect. The mendez-white junction is well differentiated. Scattered hypoattenuating ar eas are seen within the white matter. Cerebellum: Unremarkable. Mass effect: No evidence of midline shift. Intracranial vasculature: Atherosclerotic calcifications of the intracranial vessels. Soft tissues: Normal. Calvarium/osseous structures: No depressed skull fracture. Paranasal sinuses and mastoid air cells: Mild scattered paranasal sinus disease. Visualized orbits: Bilateral aphakia IMPRESSION: 1. No acute intracranial process. 2. Remote left frontal lobe injury. 3. Nonspecific white matter changes.
--- NOTE | 2023-02-19 22:40 | XR ---
EXAMINATION TYPE: XR chest 2V DATE OF EXAM: 02/19/2023 10:13 PM COMPARISON: Chest radiographs from 02/05/2021 TECHNIQUE: XR chest 2V Frontal and lateral views of the chest. CLINICAL INDICATION:Female, 87 years old with history of altered mental status; FINDINGS: Lungs/Pleura: There is no evidence of pleural effusion, focal consolidation, or pneumothorax. Pulmonary vascularity: Unremarkable. Heart/mediastinum: Cardiomediastinal silhouette is enlarged and stable. Two lead cardiac conduction d evice overlying the left hemithorax with lead tips projecting over the right ventricle and right atri um. Musculoskeletal: No acute osseous pathology. Right IJ central venous catheter tip in appropriate position. IMPRESSION: 1. No acute cardiopulmonary disease/process. 2. Right IJ central venous catheter tip in appropriate position.
[2023-02-19 22:41] LABS: Anisocytosis Slight; Basophils % (A) 0 %; Eosinophils % (A) 0 %; HCT 37.4 % (34.0-46.0); HGB 11.8 gm/dL (11.4-16.0); Hypochromasia Slight; Lymphocytes # (A) 0.8 k/uL (1.0-4.8); Lymphocytes % (A) 4 %; MCH 35.4 pg (25.0-35.0); MCHC 31.5 g/dL (31.0-37.0); Macrocytosis Marked; Mean Platelet Volume 8.4; Monocytes # (A) 0.6 k/uL (0-1.0); Monocytes % (A) 3 %; Neutrophils # (A) 17.5 k/uL (1.3-7.7); Neutrophils % (A) 92 %; Platelet Count 190 k/uL (150-450); RBC 3.33 m/uL (3.80-5.40); RDW 17.1 % (11.5-15.5)
[2023-02-19 22:42] LABS: MCV 112.4 fL (80.0-100.0)
[2023-02-19 22:56] LABS: Prothrombin Time 10.8 sec (9.0-12.0)
[2023-02-19 23:19] LABS: ALT 20 U/L (4-34); AST 26 U/L (14-36); African American GFR (CKD) 9 (>60 ml/min/1.73 sqM); Albumin 3.6 g/dL (3.5-5.0); Alkaline Phosphatase 119 U/L (38-126); Anion Gap 17 mmol/L; Blood Urea Nitrogen 42 mg/dL (7-17); Calcium 8.1 mg/dL (8.4-10.2); Carbon Dioxide 22 mmol/L (22-30); Chloride 96 mmol/L (98-107); Glucose 194 mg/dL (74-99); Non-African American GFR(CKD) 8 (>60 ml/min/1.73 sqM); Potassium 4.2 mmol/L (3.5-5.1); Sodium 135 mmol/L (137-145); Total Bilirubin 0.6 mg/dL (0.2-1.3); Total Protein 6.2 g/dL (6.3-8.2)
[2023-02-19] MEDS ORDERED: ACETAMINOPHEN TAB 500 MG TAB PO STA (23:55)
[2023-02-20] MEDS ORDERED: CEFEPIME 2 GM in SODIUM CHLORIDE 0.9% 100 ML IVPB STA (00:03)
[2023-02-20] MEDS ORDERED: ACETAMINOPHEN TAB 325 MG TAB PO PRN (00:11)
[2023-02-20] MEDS ORDERED: NALOXONE 0.4 MG/ML 1 ML VIAL IV PRN (00:11)
--- NOTE | 2023-02-20 00:11 | ED ---
Altered Mental Status HPI - General Chief Complaint: Altered Mental Status Stated Complaint: Altered Mental Time Seen by Provider: 02/19/23 21:35 Source: EMS Mode of arrival: EMS Limitations: altered mental status - History of Present Illness Initial Comments: 87-year-old female who presents to the emergency department from [facility]. She has a history of A. fib, end-stage renal disease on hemodialysis Friday, and Friday, hyperlipidemia, hypertension who presents to the emergency department for altered mental status. They state that the patient was last seen well yesterday at noon. She is normally a and O 4. Patient was found to have a fever at the facility and was transferred for further evaluation. Upon speaking with the patient she admits to a cough without sputum production. No chest pain. Patient is mild short of breath. She does not wear oxygen however she is placed on 2 L due to oxygen saturation of 86%. She denies abdominal pain. She does not make urine. Denies any rashes. Does have increased lower extremity edema. She did have dialysis yesterday. Denies any missed sessions. Recently the patient switched to a chest wall catheter for her dialysis. Her fistula in her right upper extremity bled and she was forced to switch her dialysis access. No other alleviating, precipitating or modifying factors - Related Data Home Medications Medication Instructions Recorded Confirmed Levothyroxine Sodium [Synthroid] 100 mcg PO DAILY@0700 01/31/14 02/19/23 allopurinoL [Zyloprim] 100 mg PO DAILY@0800 01/18/17 02/19/23 Calcium Acetate [PhosLo] 2,001 mg PO TUTHSA@0800,1700 05/25/20 02/19/23 Mirtazapine [Remeron] 15 mg PO HS@209905/25/20 02/19/23 Folic Acid-Vit B Complex-Vit C 1 cap PO DAILY@0800 01/10/21 02/19/23 [Nephrocaps] Apixaban [Eliquis] 2.5 mg PO SUMOWEFR@0800,1700 03/21/21 02/19/23 Amiodarone [Cordarone] 200 mg PO DAILY@1700 12/03/22 02/19/23 Atorvastatin [Lipitor] 20 mg PO HS@209912/03/22 02/19/23 Biotin 10 mg PO DAILY@1700 12/03/22 02/19/23 INSULIN LISPRO (HumaLOG) [humaLOG] See Protocol SQ ACHS 12/03/22 02/19/23 Loratadine [Claritin] 10 mg PO DAILY@0800 12/03/22 02/19/23 Midodrine HCl [ProAmatine] 10 mg PO DAILY@0800 12/03/22 02/19/23 Mirabegron [Myrbetriq] 25 mg PO DAILY@0800 12/03/22 02/19/23 Ondansetron [Zofran] 4 mg PO Q6H PRN 12/03/22 02/19/23 Torsemide [Demadex] 20 mg PO MO@0800 12/03/22 02/19/23 bisacodyL [Dulcolax] 10 mg RECTAL DAILY PRN 12/03/22 02/19/23 Acetaminophen Tab [Tylenol] 650 mg PO Q4H PRN 02/19/23 02/19/23 Calcium Acetate [PhosLo] 2,001 mg PO SUMOWEFR@08,12,17 02/19/23 02/19/23 Famotidine [Pepcid] 20 mg PO DAILY@0800 02/19/23 02/19/23 Glucerna Shake 1 can PO TUTHSA@1000 02/19/23 02/19/23 Insulin Detemir (Levemir) [Levemir] 5 unit SQ HS@2100 02/19/23 02/19/23 Magnesium Hydroxide [Milk of 7,200 mg PO DAILY PRN 02/19/23 02/19/23 Magnesia Concentrate] Na Phos,M-B/Na Phos,Di-Ba [Fleet 133 ml RECTAL DAILY PRN 02/19/23 02/19/23 Adult] calcitrioL [Calcitriol] 0.25 mcg PO TUTHSA 02/19/23 02/19/23 Previous Rx's Medication Instructions Recorded Gabapentin [Neurontin] 200 mg PO SUMOWEFR@0800 #6 cap 02/24/23 Gabapentin [Neurontin] 300 mg PO DAILY@1700 #9 cap 02/24/23 cefUROXime axetiL [Cefuroxime] 500 mg PO DAILY #5 tab 02/24/23 Allergies Allergy/AdvReac Type Severity Reaction Status Date / Time amoxicillin Allergy Rash/Hives Verified 02/19/23 22:57 Penicillins Allergy Rash/Hives Verified 02/19/23 22:57 Sulfa (Sulfonamide Allergy Rash/Hives Verified 02/19/23 22:57 Antibiotics) meperidine HCl [From Demerol] AdvReac Nausea & Verified 02/19/23 22:57 Vomiting Review of Systems ROS Statement: Those systems with pertinent positive or pertinent negative responses have been documented in the HPI. ROS Other: All systems not noted in ROS Statement are negative. Past Medical History Past Medical History: Atrial Fibrillation, Heart Failure, CVA/TIA, Diabetes Mellitus, Dialysis, GERD/Reflux, Hyperlipidemia, Hypertension, Myocardial Infarction (OK), Osteoarthritis (OA), Pulmonary Embolus (PE), Renal Disease, Rheumatoid Arthritis (RA), Sleep Apnea/CPAP/BIPAP, Thyroid Disorder Additional Past Medical History / Comment(s): on 02/06/20 with UTI/ESBL/bacteremia. Other hx: IDDM type II, diabetic neuropathy bilateral hands/feet, ESRD with hemodialysis, recurrent UTIs, pt was told she had a past [place] d/t EKG, palpitations, SSS with pacer, HARRIS with Cpap, chronic back and bilateral knee pain, hypothyroid. bilat carotid artery occlusions and a stroke she was unaware of Last Myocardial Infarction Date:: 01/2017 History of Any Multi-Drug Resistant Organisms: ESBL, MRSA, VRE Date of last positivie culture/infection: 02/01/21 VRE & MRSA at [facility] MDRO Source:: URINE-VRE & MRSA Past Surgical History: Bladder Surgery, Hysterectomy, Pacemaker Additional Past Surgical History / Comment(s): 02/01/20 R upper arm fistula repositioned, R chest boone cath, rectocele, cystocele, hemorrhoidectomy, bilateral leg vein strippings, bilateral cataract removal, Picc lines, bladder biopsy Past Anesthesia/Blood Transfusion Reactions: No Reported Reaction Type of Cardiac Device: Permanent Pacemaker Device Placement Date:: 01/2017 Past Psychological History: No Psychological Hx Reported Smoking Status: Never smoker Past Alcohol Use History: None Reported Past Drug Use History: None Reported - Past Family History Father Family Medical History: AFIB, AICD/Pacemaker, Congestive Heart Failure (CHF), Coronary Artery Disease (CAD), Diabetes Mellitus, Dialysis, Deep Vein Thrombosis (DVT), Hyperlipidemia, Hypertension, Myocardial Infarction (OK), Rheumatoid Arthritis (RA) Mother Family Medical History: Unable to Obtain Sister(s) Family Medical History: Cancer General Exam Limitations: altered mental status General appearance: alert, in no apparent distress Head exam: Present: atraumatic, normocephalic, normal inspection Eye exam: Present: normal appearance, PERRL, EOMI. Absent: scleral icterus, conjunctival injection, periorbital swelling ENT exam: Present: normal exam, mucous membranes moist Neck exam: Present: normal inspection. Absent: tenderness, meningismus, lymphadenopathy Respiratory exam: Present: normal lung sounds bilaterally. Absent: respiratory distress, wheezes, rales, rhonchi, stridor Cardiovascular Exam: Present: normal rhythm, tachycardia, normal heart sounds. Absent: systolic murmur, diastolic murmur, rubs, gallop, clicks GI/Abdominal exam: Present: soft, normal bowel sounds. Absent: distended, tenderness, guarding, rebound, rigid Extremities exam: Present: normal inspection, full ROM, normal capillary refill. Absent: tenderness, pedal edema, joint swelling, calf tenderness Back exam: Present: normal inspection Neurological exam: Present: alert, oriented X3, CN II-XII intact Psychiatric exam: Present: normal affect, normal mood Skin exam: Present: warm, dry, intact, normal color. Absent: rash Course Vital Signs 02/19/23 02/19/23 02/19/23 21:20 23:00 23:12 Temperature 99.7 F H Pulse Rate 104 H 99 Respiratory 16 16 Rate Blood Pressure 102/63 106/64 O2 Sat by Pulse 96 88 L 94 L Oximetry Fraction of Inspired Oxygen (FIO2) 02/20/23 02/20/23 02/20/23 00:00 01:40 02:00 Temperature 98.3 F Pulse Rate 89 84 Respiratory 16 16 Rate Blood Pressure 92/45 83/45 O2 Sat by Pulse 95 93 L Oximetry Fraction of Inspired Oxygen (FIO2) 02/20/23 02/20/23 02/20/23 02:31 03:06 05:07 Temperature Pulse Rate 81 90 73 Respiratory 14 20 20 Rate Blood Pressure 94/47 99/47 99/47 O2 Sat by Pulse 95 90 L 94 L Oximetry Fraction of Inspired Oxygen (FIO2) 02/20/23 02/20/23 02/20/23 06:30 08:31 10:20 Temperature 97.8 F Pulse Rate 71 71 74 Respiratory 20 18 20 Rate Blood Pressure 104/52 100/51 98/46 O2 Sat by Pulse 95 94 L 86 L Oximetry Fraction of Inspired Oxygen (FIO2) 02/20/23 02/20/23 02/20/23 11:10 11:11 11:19 Temperature Pulse Rate 73 70 Respiratory 21 13 Rate Blood Pressure O2 Sat by Pulse Oximetry Fraction of 50 Inspired Oxygen (FIO2) 02/20/23 02/20/23 02/20/23 11:21 11:25 11:31 Temperature Pulse Rate 76 70 Respiratory 20 20 Rate Blood Pressure 94/49 O2 Sat by Pulse 90 L 93 L Oximetry Fraction of 75 Inspired Oxygen (FIO2) 02/20/23 02/20/23 02/20/23 11:49 11:55 12:14 Temperature 97.5 F L Pulse Rate 70 70 Respiratory 20 20 Rate Blood Pressure 98/45 O2 Sat by Pulse 96 94 L Oximetry Fraction of 75 Inspired Oxygen (FIO2) 02/20/23 02/20/23 02/20/23 12:59 14:00 15:11 Temperature Pulse Rate 70 70 Respiratory 20 20 Rate Blood Pressure 96/45 91/45 O2 Sat by Pulse 92 L 95 Oximetry Fraction of 75 Inspired Oxygen (FIO2) Medical Decision Making - Medical Decision Making Was pt. sent in by a medical professional or institution (PRACHI Escobar, [employer], urgent care, hospital, or fci...) When possible be specific @ -[facility] Did you speak to anyone other than the patient for history (EMS, parent, family, police, friend...)? What history was obtained from this source @ -EMS Did you review nursing and triage notes (agree or disagree)? Why? @ -I reviewed and agree with nursing and triage notes Were old charts reviewed (outside hosp., previous admission, EMS record, old EKG, old radiological studies, urgent care reports/EKG's, fci records)? Report findings @ -old charts were reviewed - tranfer sheet, med list from [facility] Differential Diagnosis (chest pain, altered mental status, abdominal pain women, abdominal pain men, vaginal bleeding, weakness, fever, dyspnea, syncope, headache, dizziness, GI bleed, back pain, seizure, CVA, palpatations, mental health, musculoskeletal)? @ -cva, sepsis, pneumonia, covid, influenza EKG interpreted by me (3pts min.). @ -yes and demonstrates a ventricular pacemaker with a rate of 94. QRS 158. QTC of 441. No acute ST segment elevations or depressions X-rays interpreted by me (1pt min.). @ -yes, no acute process CT interpreted by me (1pt min.). @ -yes. no acute process U/S interpreted by me (1pt. min.). @ -None done What testing was considered but not performed or refused? (CT, X-rays, U/S, labs)? Why? @ -None What meds were considered but not given or refused? Why? @ -None Did you discuss the management of the patient with other professionals (professionals i.e. , PA, [employer] WORKER, lab, RT, psych nurse, social service agency director, body repairer, teacher, sailing officer, bilingual patient support caseworker)? Give summary @ -yes, leslie from [facility] Was smoking cessation discussed for >3mins.? @ -No Was critical care preformed (if so, how long)? @ -No Were there social determinants of health that impacted care today? How? (Homelessness, low income, unemployed, alcoholism, drug addiction, transportation, low edu. Level, literacy, decrease access to med. care, prison, rehab)? @ -from [facility] Was there de-escalation of care discussed even if they declined (Discuss DNR or withdrawal of care, Hospice)? DNR status @ -No What co-morbidities impacted this encounter? (DM, HTN, Smoking, COPD, CAD, Cancer, CVA, ARF, Chemo, Hep., AIDS, mental health diagnosis, sleep apnea, morbid obesity)? @ -esrd on hd Was patient admitted / discharged? Hospital course, mention meds given and route, prescriptions, significant lab abnormalities, going to OR and other pertinent info. @ -Upon arrival patient is placed into room 17. Thorough history and physical exam was performed. IV access is established and laboratory studies are conducted. Patient has a white count of 19. Creatinine 4.5. Viral swab is negative. Chest x-ray demonstrate no acute process. I did CT the patient's brain due to reported altered mental status which demonstrates no acute intracranial process. Patient does have a low-grade time of 99.7. She is given 1 g of Tylenol. She does have low oxygen saturation saturations and therefore remains on oxygen. I did give the patient at dose of cefepime. Recommended admission due to fever of unknown origin. Blood cultures were obtained before antibiotic administration. Patient will be admitted to [facility]. I spoke with Leslie who agreed to admit the patient. Nephrology and infectious disease will be placed on consult Undiagnosed new problem with uncertain prognosis? @ -yes Drug Therapy requiring intensive monitoring for toxicity (Heparin, Nitro, Insulin, Cardizem)? @ -No Were any procedures done? @ -No Diagnosis/symptom? @ -acute encephalopathy, acute/chronic resp failure, CAP Acute, or Chronic, or Acute on Chronic? @ -acute Uncomplicated (without systemic symptoms) or Complicated (systemic symptoms)? @ -complicated Side effects of treatment? @ -allergic reaction Exacerbation, Progression, or Severe Exacerbation? @ -No Poses a threat to life or bodily function? How? (Chest pain, [place], [place], pneumonia, PE, COPD, DKA, ARF, appy, cholecystitis, CVA, Diverticulitis, Homicidal, Suicidal, threat to staff... and all critical care pts) @ -yes, patient acutely confused. fever in dialysis pt. possible line infection - Lab Data Result diagrams: 02/23/23 07:06 02/23/23 07:06 Lab Results 02/19/23 02/19/23 02/19/23 Range/Units 21:49 21:49 21:49 WBC 19.0 H (3.8-10.6) k/uL RBC 3.33 L (3.80-5.40) m/uL Hgb 11.8 (11.4-16.0) gm/dL Hct 37.4 (34.0-46.0) % MCV 112.4 H (80.0-100.0) fL MCH 35.4 H (25.0-35.0) pg MCHC 31.5 (31.0-37.0) g/dL RDW 17.1 H (11.5-15.5) % Plt Count 190 (150-450) k/uL MPV 8.4 Neutrophils % 92 % Lymphocytes % 4 % Monocytes % 3 % Eosinophils % 0 % Basophils % 0 % Neutrophils # 17.5 H (1.3-7.7) k/uL Lymphocytes # 0.8 L (1.0-4.8) k/uL Monocytes # 0.6 (0-1.0) k/uL Eosinophils # 0.0 (0-0.7) k/uL Basophils # 0.0 (0-0.2) k/uL Hypochromasia Slight Anisocytosis Slight Macrocytosis Marked A PT 10.8 (9.0-12.0) sec INR 1.0 (<1.2) APTT 24.0 (22.0-30.0) sec Sodium 135 L (137-145) mmol/L Potassium 4.2 (3.5-5.1) mmol/L Chloride 96 L (98-107) mmol/L Carbon Dioxide 22 (22-30) mmol/L Anion Gap 17 mmol/L BUN 42 H (7-17) mg/dL Creatinine 4.56 H (0.52-1.04) mg/dL Est GFR (CKD-EPI)AfAm 9 (>60 ml/min/1.73 sqM) Est GFR (CKD-EPI)NonAf 8 (>60 ml/min/1.73 sqM) Glucose 194 H (74-99) mg/dL Calcium 8.1 L (8.4-10.2) mg/dL Total Bilirubin 0.6 (0.2-1.3) mg/dL AST 26 (14-36) U/L ALT 20 (4-34) U/L Alkaline Phosphatase 119 (38-126) U/L Ammonia (<30) umol/L Troponin I (0.000-0.034) ng/mL NT-Pro-B Natriuret Pep pg/mL Total Protein 6.2 L (6.3-8.2) g/dL Albumin 3.6 (3.5-5.0) g/dL Influenza Type A (PCR) (Not Detectd) Influenza Type B (PCR) (Not Detectd) RSV (PCR) (Not Detectd) SARS-CoV-2 (PCR) (Not Detectd) 02/19/23 02/19/23 02/19/23 Range/Units 21:49 21:49 21:49 WBC (3.8-10.6) k/uL RBC (3.80-5.40) m/uL Hgb (11.4-16.0) gm/dL Hct (34.0-46.0) % MCV (80.0-100.0) fL MCH (25.0-35.0) pg MCHC (31.0-37.0) g/dL RDW (11.5-15.5) % Plt Count (150-450) k/uL MPV Neutrophils % % Lymphocytes % % Monocytes % % Eosinophils % % Basophils % % Neutrophils # (1.3-7.7) k/uL Lymphocytes # (1.0-4.8) k/uL Monocytes # (0-1.0) k/uL Eosinophils # (0-0.7) k/uL Basophils # (0-0.2) k/uL Hypochromasia Anisocytosis Macrocytosis PT (9.0-12.0) sec INR (<1.2) APTT (22.0-30.0) sec Sodium (137-145) mmol/L Potassium (3.5-5.1) mmol/L Chloride (98-107) mmol/L Carbon Dioxide (22-30) mmol/L Anion Gap mmol/L BUN (7-17) mg/dL Creatinine (0.52-1.04) mg/dL Est GFR (CKD-EPI)AfAm (>60 ml/min/1.73 sqM) Est GFR (CKD-EPI)NonAf (>60 ml/min/1.73 sqM) Glucose (74-99) mg/dL Calcium (8.4-10.2) mg/dL Total Bilirubin (0.2-1.3) mg/dL AST (14-36) U/L ALT (4-34) U/L Alkaline Phosphatase (38-126) U/L Ammonia <9 (<30) umol/L Troponin I <0.012 (0.000-0.034) ng/mL NT-Pro-B Natriuret Pep pg/mL Total Protein (6.3-8.2) g/dL Albumin (3.5-5.0) g/dL Influenza Type A (PCR) Not Detected (Not Detectd) Influenza Type B (PCR) Not Detected (Not Detectd) RSV (PCR) Not Detected (Not Detectd) SARS-CoV-2 (PCR) Not Detected (Not Detectd) 02/19/23 Range/Units 21:49 WBC (3.8-10.6) k/uL RBC (3.80-5.40) m/uL Hgb (11.4-16.0) gm/dL Hct (34.0-46.0) % MCV (80.0-100.0) fL MCH (25.0-35.0) pg MCHC (31.0-37.0) g/dL RDW (11.5-15.5) % Plt Count (150-450) k/uL MPV Neutrophils % % Lymphocytes % % Monocytes % % Eosinophils % % Basophils % % Neutrophils # (1.3-7.7) k/uL Lymphocytes # (1.0-4.8) k/uL Monocytes # (0-1.0) k/uL Eosinophils # (0-0.7) k/uL Basophils # (0-0.2) k/uL Hypochromasia Anisocytosis Macrocytosis PT (9.0-12.0) sec INR (<1.2) APTT (22.0-30.0) sec Sodium (137-145) mmol/L Potassium (3.5-5.1) mmol/L Chloride (98-107) mmol/L Carbon Dioxide (22-30) mmol/L Anion Gap mmol/L BUN (7-17) mg/dL Creatinine (0.52-1.04) mg/dL Est GFR (CKD-EPI)AfAm (>60 ml/min/1.73 sqM) Est GFR (CKD-EPI)NonAf (>60 ml/min/1.73 sqM) Glucose (74-99) mg/dL Calcium (8.4-10.2) mg/dL Total Bilirubin (0.2-1.3) mg/dL AST (14-36) U/L ALT (4-34) U/L Alkaline Phosphatase (38-126) U/L Ammonia (<30) umol/L Troponin I (0.000-0.034) ng/mL NT-Pro-B Natriuret Pep 05404 pg/mL Total Protein (6.3-8.2) g/dL Albumin (3.5-5.0) g/dL Influenza Type A (PCR) (Not Detectd) Influenza Type B (PCR) (Not Detectd) RSV (PCR) (Not Detectd) SARS-CoV-2 (PCR) (Not Detectd) Disposition Clinical Impression: Acute encephalopathy, Leukocytosis, ESRD (end stage renal disease) on dialysis, Acute respiratory insufficiency Disposition: ADMITTED IP TO THIS HOSP Condition: Stable Is patient prescribed a controlled substance at d/c from ED?: No Time of Disposition: 00:09 Decision to Admit Reason: Admit from EC Decision Date: 02/20/23 Decision Time: 00:09
[2023-02-20] MEDS ORDERED: SODIUM CHLORIDE 0.9% 500 ML 500 ML IV ONE (02:08)
[2023-02-20] MEDS ORDERED: SODIUM CHLORIDE 0.9% 1,000 ML IV SCH (03:45)
[2023-02-20] MEDS ORDERED: MIDODRINE 5 MG TAB PO ONE (06:00)
[2023-02-20] MEDS: CALCIUM ACETATE 667 MG TAB PO SCH ×2 (08:35→18:54)
[2023-02-20] MEDS: LEVOTHYROXINE 100 MCG TAB PO SCH (08:35)
[2023-02-20] MEDS: FAMOTIDINE 20 MG TAB PO SCH (08:35)
[2023-02-20] MEDS: allopurinoL 100 MG TAB PO SCH (08:36)
--- NOTE | 2023-02-20 10:50 | XR ---
EXAMINATION TYPE: XR chest 1V portable DATE OF EXAM: 02/20/2023 Comparison: 02/19/2023 Clinical History: 87 year-old female shortness of breath, dyspnea Findings: Right-sided double-lumen hemodialysis catheter with tips at the lower right atrium. Left anterior [address] wall pacemaker generator with right atrial, right ventricular, and coronary sinus leads. Mild card iomegaly persists. Moving appearance to the pulmonary vasculature though with persistent small left g reater than right pleural effusions. Chronic full-thickness rotator cuff tear on the right. Impression: Persistent small left greater than right pleural effusions with adjacent atelectasis and/or consolida tion. Mild cardiomegaly. Right-sided double-lumen hemodialysis catheter.
--- NOTE | 2023-02-20 11:01 | P.NPCON ---
History of Present Illness - Reason for Consult end stage renal disease - History of Present Illness Reason for consultation: End-stage renal disease History of present illness: Patient is a 87-year-old female seen in consultation for end-stage renal disease. Patient was seen and examined the emergency room. She is maintained on hemodialysis on Friday schedule. Patient has a right chest permacath. Patient was sent to the hospital from [facility] due to altered mental status. Patient is not a very reliable historian. It is noted in the chart that she was noted to have a low-grade fever and was also having a productive cough. Patient was noted to be hypoxic with oxygen saturation of 86%. She did have a temperature of 99.7F on admission. She denies any chest pain or shortness of breath. No vomiting or diarrhea. She scheduled for dialysis today. She does not make urine. Initial chest x-ray showed no acute cardiopulmonary process. Repeat chest x-ray from today showed small effusions with adjacent atelectasis versus consolidation. She did receive a dose of cefepime in the ER. Pulmonology and infectious disease has been consulted. Hemodynamically stable. She is receiving IV fluids. Vital signs are stable. General: No acute distress. HEENT: Head exam is unremarkable. LUNGS: No audible rhonchi or wheezes. HEART: Rate and Rhythm are regular. ABDOMEN: Nontender. EXTREMITITES: No edema. Past Medical History Past Medical History: Atrial Fibrillation, Heart Failure, CVA/TIA, Diabetes Mellitus, Dialysis, GERD/Reflux, Hyperlipidemia, Hypertension, Myocardial Infarction (DC), Osteoarthritis (OA), Pulmonary Embolus (PE), Renal Disease, Rheumatoid Arthritis (RA), Sleep Apnea/CPAP/BIPAP, Thyroid Disorder Additional Past Medical History / Comment(s): on 02/06/20 with UTI/ESBL/bacteremia. Other hx: IDDM type II, diabetic neuropathy bilateral hands/feet, ESRD with hemodialysis, recurrent UTIs, pt was told she had a past [place] d/t EKG, palpitations, SSS with pacer, HARRIS with Cpap, chronic back and bilateral knee pain, hypothyroid. bilat carotid artery occlusions and a stroke she was unaware of Last Myocardial Infarction Date:: 01/2017 History of Any Multi-Drug Resistant Organisms: ESBL, MRSA, VRE Date of last positivie culture/infection: 02/01/21 VRE & MRSA at [facility] MDRO Source:: URINE-VRE & MRSA Past Surgical History: Bladder Surgery, Hysterectomy, Pacemaker Additional Past Surgical History / Comment(s): 02/01/20 R upper arm fistula repositioned, R chest boone cath, rectocele, cystocele, hemorrhoidectomy, bilateral leg vein strippings, bilateral cataract removal, Picc lines, bladder biopsy Past Anesthesia/Blood Transfusion Reactions: No Reported Reaction Type of Cardiac Device: Permanent Pacemaker Device Placement Date:: 01/2017 Past Psychological History: No Psychological Hx Reported Smoking Status: Never smoker Past Alcohol Use History: None Reported Past Drug Use History: None Reported - Past Family History Father Family Medical History: AFIB, AICD/Pacemaker, Congestive Heart Failure (CHF), Coronary Artery Disease (CAD), Diabetes Mellitus, Dialysis, Deep Vein Thrombosis (DVT), Hyperlipidemia, Hypertension, Myocardial Infarction (DC), Rheumatoid Arthritis (RA) Mother Family Medical History: Unable to Obtain Sister(s) Family Medical History: Cancer Medications and Allergies Home Medications Medication Instructions Recorded Confirmed Type RX: Levothyroxine Sodium 100 mcg PO DAILY@0700 01/31/14 02/19/23 History [Synthroid] RX: allopurinoL [Zyloprim] 100 mg PO DAILY@0800 01/18/17 02/19/23 History RX: Calcium Acetate [PhosLo] 2,001 mg PO TUTHSA@0800,1700 05/25/20 02/19/23 History RX: Mirtazapine [Remeron] 15 mg PO HS@2100 05/25/20 02/19/23 History RX: Folic Acid-Vit B Complex-Vit C 1 cap PO DAILY@0800 01/10/21 02/19/23 History [Nephrocaps] RX: Apixaban [Eliquis] 2.5 mg PO SUMOWEFR@0800,1700 03/21/21 02/19/23 History RX: Amiodarone [Cordarone] 200 mg PO DAILY@1700 12/03/22 02/19/23 History RX: Atorvastatin [Lipitor] 20 mg PO HS@2100 12/03/22 02/19/23 History RX: Biotin 10 mg PO DAILY@1700 12/03/22 02/19/23 History RX: INSULIN LISPRO (HumaLOG) See Protocol SQ ACHS 12/03/22 02/19/23 History [humaLOG] RX: Loratadine [Claritin] 10 mg PO DAILY@0800 12/03/22 02/19/23 History RX: Midodrine HCl [ProAmatine] 10 mg PO DAILY@0800 12/03/22 02/19/23 History RX: Mirabegron [Myrbetriq] 25 mg PO DAILY@0800 12/03/22 02/19/23 History RX: Ondansetron [Zofran] 4 mg PO Q6H PRN 12/03/22 02/19/23 History RX: Torsemide [Demadex] 20 mg PO MO@0800 12/03/22 02/19/23 History RX: bisacodyL [Dulcolax] 10 mg RECTAL DAILY PRN 12/03/22 02/19/23 History Acetaminophen Tab [Tylenol] 650 mg PO Q4H PRN 02/19/23 02/19/23 History Apixaban [Eliquis] 2.5 mg PO TUTHSA@1700 02/19/23 02/19/23 History Calcium Acetate [Phoslo] 2,001 mg PO SUMOWEFR@08,12,17 02/19/23 02/19/23 History Famotidine [Pepcid] 20 mg PO DAILY@0802/19/23 02/19/23 History Insulin Detemir (Levemir) [Levemir] 5 unit SQ HS@2100 02/19/23 02/19/23 History Magnesium Hydroxide [Milk of 7,200 mg PO DAILY PRN 02/19/23 02/19/23 History Magnesia Concentrate] Na Phos,M-B/Na Phos,Di-Ba [Fleet 133 ml RECTAL DAILY PRN 02/19/23 02/19/23 History Adult] RX: Gabapentin [Neurontin] 200 mg PO SUMOWEFR@0800 02/19/23 02/19/23 History RX: Gabapentin [Neurontin] 300 mg PO DAILY@1700 02/19/23 02/19/23 History RX: Glucerna Shake 1 can PO TUTHSA@1000 02/19/23 02/19/23 History RX: calcitrioL [Calcitriol] 0.25 mcg PO TUTHSA 02/19/23 02/19/23 History Allergies Allergy/AdvReac Type Severity Reaction Status Date / Time amoxicillin Allergy Rash/Hives Verified 02/19/23 22:57 Penicillins Allergy Rash/Hives Verified 02/19/23 22:57 Sulfa (Sulfonamide Allergy Rash/Hives Verified 02/19/23 22:57 Antibiotics) meperidine HCl [From Demerol] AdvReac Nausea & Verified 02/19/23 22:57 Vomiting Physical Exam Vitals: Vital Signs Temp Pulse Resp BP Pulse Ox 02/20/23 08:31 71 18 100/51 94 L 02/20/23 06:30 97.8 F 71 20 104/52 95 02/20/23 05:07 73 20 99/47 94 L 02/20/23 03:06 90 20 99/47 90 L 02/20/23 02:31 81 14 94/47 95 02/20/23 02:00 84 16 83/45 93 L 02/20/23 01:40 98.3 F 02/20/23 00:00 89 16 92/45 95 02/19/23 23:12 94 L 02/19/23 23:00 99 16 106/64 88 L 02/19/23 21:20 99.7 F H 104 H 16 102/63 96 Intake and Output 02/19/23 02/20/23 02/20/23 22:59 06:59 14:59 Other: Weight 90.718 kg Results - Lab Results Most recent lab results Calcium 8.1 mg/dL (8.4-10.2) L 02/19/23 21:49 02/19/23 21:49 02/19/23 21:49 Assessment and Plan Plan: Assessment: 1. End-stage renal disease maintained on hemodialysis on Friday schedule via right chest permacath. 2. Altered mental status with low grade fever - concern for infection. 3. Acute hypoxic respiratory failure. 4. Diabetes mellitus. 5. Chronic kidney disease mineral bone disease maintained on calcitriol and PhosLo. X. Chronic hypotension maintained on midodrine. Plan: Hemodialysis today. Follow-up cultures. Check cultures from permacath. Antibiotics per ID. Thank you for the consultation. I will continue to follow the patient with you during her hospital stay.
[2023-02-20] MEDS: IPRATROPIUM-ALBUTEROL 3 ML NEB INHALATION PRN ×2 (11:09→20:56)
[2023-02-20 11:17] LABS: Anisocytosis Slight; Basophils % (A) 0 %; Eosinophils % (A) 0 %; HCT 31.4 % (34.0-46.0); Hypochromasia Moderate; Lymphocytes # (A) 1.1 k/uL (1.0-4.8); Lymphocytes % (A) 12 %; MCH 35.9 pg (25.0-35.0); MCHC 31.9 g/dL (31.0-37.0); MCV 112.4 fL (80.0-100.0); Macrocytosis Marked; Mean Platelet Volume 8.2; Monocytes # (A) 0.4 k/uL (0-1.0); Monocytes % (A) 4 %; Neutrophils # (A) 7.7 k/uL (1.3-7.7); Neutrophils % (A) 82 %; Platelet Count 131 k/uL (150-450); RDW 17.4 % (11.5-15.5); WBC 9.4 k/uL (3.8-10.6)
[2023-02-20 11:30] LABS: African American GFR (CKD) 9 (>60 ml/min/1.73 sqM); Anion Gap 12 mmol/L; Blood Urea Nitrogen 45 mg/dL (7-17); Calcium 6.7 mg/dL (8.4-10.2); Carbon Dioxide 22 mmol/L (22-30); Chloride 103 mmol/L (98-107); Glucose 172 mg/dL (74-99); Non-African American GFR(CKD) 8 (>60 ml/min/1.73 sqM); Potassium 3.7 mmol/L (3.5-5.1); Sodium 137 mmol/L (137-145)
[2023-02-20] MEDS ORDERED: CALCIUM GLUCONATE IN NACL 1 GM in SALINE 1 100ML.BAG IVPB ONE (12:30)
[2023-02-20] MEDS: MIDODRINE 5 MG TAB PO SCH ×2 (13:00→18:55)
--- NOTE | 2023-02-20 14:07 | P.HPIM ---
History of Present Illness H&P Date: 02/20/23 History of present illness; patient is a 87-year-old lady with past medical history significant for A. fib, end-stage renal disease on dialysis, hyperlipidemia, hypertension in the ER because of altered mental status. Patient was not acting her usual self for the last day, was having fever at the long-term, was also complaining of cough. Patient was complaining of shortness of breath at rest. Denies any nausea, vomiting abdominal pain. Because of altered mental status and seasonal, patient was brought to the ER. Initial lab work in the ER showed white count of 19, hemoglobin 11.8, platelet count 190, sodium 139, potassium 4.2, BUN 42, creatinine 4.56 X-ray chest negative for acute cardiopulmonary process CT brain negative for acute intracranial process Patient was admitted to medicine service On my examination, currently patient is on nonrebreather, complaint of shortness of breath. Denies any chest pain. Patient is alert, answering APPROPRIATELY REVIEW OF SYSTEMS: CONSTITUTIONAL: No malaise, no fatigue. HEENT: No recent visual problems or hearing problems. Denied any sore throat. CARDIOVASCULAR: No chest pain, orthopnea, PND, no palpitations, no syncope. PULMONARY: As mentioned in HPI GASTROINTESTINAL: No diarrhea, no nausea, no vomiting, no abdominal pain. NEUROLOGICAL: No headaches HEMATOLOGICAL: Denies any bleeding or petechiae. GENITOURINARY: Denies any burning micturition, frequency, or urgency. MUSCULOSKELETAL/RHEUMATOLOGICAL: Denies any joint pain, swelling, or any muscle pain. ENDOCRINE: Denies any polyuria or polydipsia. The rest of the 14-point review of systems is negative. PHYSICAL EXAMINATION: GENERAL: The patient is alert and oriented x3, not in any acute distress. Well developed, well nourished. HEENT: Pupils are round and equally reacting to light. EOMI. No scleral icterus. No conjunctival pallor. Normocephalic, atraumatic. No pharyngeal erythema. No thyromegaly. CARDIOVASCULAR: S1 and S2 present. No murmurs, rubs, or gallops. PULMONARY: Chest is clear to auscultation, no wheezing or crackles. ABDOMEN: Soft, nontender, nondistended, normoactive bowel sounds. No palpable organomegaly. MUSCULOSKELETAL: No joint swelling or deformity. EXTREMITIES: No cyanosis, clubbing, or pedal edema. NEUROLOGICAL: Gross neurological examination did not reveal any focal deficits. SKIN: No rashes. Assessment and plan Acute metabolic encephalopathy Acute hypoxic respiratory failure Fever of unknown origin ESRD Hypertension Hyperlipidemia Insulin-dependent diabetes mellitus Atrial fibrillation ablation Monitor vital signs Monitor CBC Monitor CMP Continue oxygen supplementation Continue breathing treatments Follow-up on blood cultures Continue IV antibiotics Continue amiodarone and Eliquis Monitor blood sugar levels, sliding scale insulin ordered, resume home dose of Levemir Consult ID Consult nephrology recommendations dialysis Pulmonology consulted DVT prophylaxis: Past Medical History Past Medical History: Atrial Fibrillation, Heart Failure, CVA/TIA, Diabetes Mellitus, Dialysis, GERD/Reflux, Hyperlipidemia, Hypertension, Myocardial Infarc tion (AL), Osteoarthritis (OA), Pulmonary Embolus (PE), Renal Disease, Rheumatoid Arthritis (RA), Sleep Apnea/CPAP/BIPAP, Thyroid Disorder Additional Past Medical History / Comment(s): on 02/06/20 with UTI/ESBL/bacteremia. Other hx: IDDM type II, diabetic neuropathy bilateral hands/feet, ESRD with hemodialysis, recurrent UTIs, pt was told she had a past [place] d/t EKG, palpitations, SSS with pacer, HARRIS with Cpap, chronic back and bilateral knee pain, hypothyroid. bilat carotid artery occlusions and a stroke she was unaware of Last Myocardial Infarction Date:: 01/2017 History of Any Multi-Drug Resistant Organisms: ESBL, MRSA, VRE Date of last positivie culture/infection: 02/01/21 VRE & MRSA at [facility] MDRO Source:: URINE-VRE & MRSA Past Surgical History: Bladder Surgery, Hysterectomy, Pacemaker Additional Past Surgical History / Comment(s): 02/01/20 R upper arm fistula repositioned, R chest boone cath, rectocele, cystocele, hemorrhoidectomy, bilateral leg vein strippings, bilateral cataract removal, Picc lines, bladder biopsy Past Anesthesia/Blood Transfusion Reactions: No Reported Reaction Type of Cardiac Device: Permanent Pacemaker Device Placement Date:: 01/2017 Past Psychological History: No Psychological Hx Reported Smoking Status: Never smoker Past Alcohol Use History: None Reported Past Drug Use History: None Reported - Past Family History Father Family Medical History: AFIB, AICD/Pacemaker, Congestive Heart Failure (CHF), Coronary Artery Disease (CAD), Diabetes Mellitus, Dialysis, Deep Vein Thrombosis (DVT), Hyperlipidemia, Hypertension, Myocardial Infarction (AL), Rheumatoid Arthritis (RA) Mother Family Medical History: Unable to Obtain Sister(s) Family Medical History: Cancer Medications and Allergies Home Medications Medication Instructions Recorded Confirmed Type Levothyroxine Sodium [Synthroid] 100 mcg PO DAILY@0700 01/31/14 02/19/23 History allopurinoL [Zyloprim] 100 mg PO DAILY@0800 01/18/17 02/19/23 History Calcium Acetate [PhosLo] 2,001 mg PO TUTHSA@0800,1700 05/25/20 02/19/23 History Mirtazapine [Remeron] 15 mg PO HS@2100 05/25/20 02/19/23 History Folic Acid-Vit B Complex-Vit C 1 cap PO DAILY@0800 01/10/21 02/19/23 History [Nephrocaps] Apixaban [Eliquis] 2.5 mg PO SUMOWEFR@0800,1700 03/21/21 02/19/23 History Amiodarone [Cordarone] 200 mg PO DAILY@1700 12/03/22 02/19/23 History Atorvastatin [Lipitor] 20 mg PO HS@2100 12/03/22 02/19/23 History Biotin 10 mg PO DAILY@1700 12/03/22 02/19/23 History INSULIN LISPRO (HumaLOG) [humaLOG] See Protocol SQ ACHS 12/03/22 02/19/23 History Loratadine [Claritin] 10 mg PO DAILY@0800 12/03/22 02/19/23 History Midodrine HCl [ProAmatine] 10 mg PO DAILY@0800 12/03/22 02/19/23 History Mirabegron [Myrbetriq] 25 mg PO DAILY@0800 12/03/22 02/19/23 History Ondansetron [Zofran] 4 mg PO Q6H PRN 12/03/22 02/19/23 History Torsemide [Demadex] 20 mg PO MO@0800 12/03/22 02/19/23 History bisacodyL [Dulcolax] 10 mg RECTAL DAILY PRN 12/03/22 02/19/23 History Acetaminophen Tab [Tylenol] 650 mg PO Q4H PRN 02/19/23 02/19/23 History Apixaban [Eliquis] 2.5 mg PO TUTHSA@1700 02/19/23 02/19/23 History Calcium Acetate [Phoslo] 2,001 mg PO SUMOWEFR@08,12,17 02/19/23 02/19/23 History Famotidine [Pepcid] 20 mg PO DAILY@0800 02/19/23 02/19/23 History Gabapentin [Neurontin] 200 mg PO SUMOWEFR@0800 02/19/23 02/19/23 History Gabapentin [Neurontin] 300 mg PO DAILY@1700 02/19/23 02/19/23 History Glucerna Shake 1 can PO TUTHSA@1000 02/19/23 02/19/23 History Insulin Detemir (Levemir) [Levemir] 5 unit SQ HS@2100 02/19/23 02/19/23 History Magnesium Hydroxide [Milk of 7,200 mg PO DAILY PRN 02/19/23 02/19/23 History Magnesia Concentrate] Na Phos,M-B/Na Phos,Di-Ba [Fleet 133 ml RECTAL DAILY PRN 02/19/23 02/19/23 History Adult] calcitrioL [Calcitriol] 0.25 mcg PO TUTHSA 02/19/23 02/19/23 History Allergies Allergy/AdvReac Type Severity Reaction Status Date / Time amoxicillin Allergy Rash/Hives Verified 02/19/23 22:57 Penicillins Allergy Rash/Hives Verified 02/19/23 22:57 Sulfa (Sulfonamide Allergy Rash/Hives Verified 02/19/23 22:57 Antibiotics) meperidine HCl [From Demerol] AdvReac Nausea & Verified 02/19/23 22:57 Vomiting Physical Exam Vitals: Vital Signs Temp Pulse Resp BP Pulse Ox 02/20/23 08:31 71 18 100/51 94 L 02/20/23 06:30 97.8 F 71 20 104/52 95 02/20/23 05:07 73 20 99/47 94 L 02/20/23 03:06 90 20 99/47 90 L 02/20/23 02:31 81 14 94/47 95 02/20/23 02:00 84 16 83/45 93 L 02/20/23 01:40 98.3 F 02/20/23 00:00 89 16 92/45 95 02/19/23 23:12 94 L 02/19/23 23:00 99 16 106/64 88 L 02/19/23 21:20 99.7 F H 104 H 16 102/63 96 Intake and Output 02/19/23 02/20/23 02/20/23 22:59 06:59 14:59 Other: Weight 90.718 kg Results CBC & Chem 7: 02/20/23 10:50 02/20/23 10:50 Labs: Abnormal Lab Results - Last 24 Hours (Table) 02/19/23 02/19/23 Range/Units 21:49 21:49 WBC 19.0 H (3.8-10.6) k/uL RBC 3.33 L (3.80-5.40) m/uL MCV 112.4 H (80.0-100.0) fL MCH 35.4 H (25.0-35.0) pg RDW 17.1 H (11.5-15.5) % Neutrophils # 17.5 H (1.3-7.7) k/uL Lymphocytes # 0.8 L (1.0-4.8) k/uL Macrocytosis Marked A Sodium 135 L (137-145) mmol/L Chloride 96 L (98-107) mmol/L BUN 42 H (7-17) mg/dL Creatinine 4.56 H (0.52-1.04) mg/dL Glucose 194 H (74-99) mg/dL Calcium 8.1 L (8.4-10.2) mg/dL Total Protein 6.2 L (6.3-8.2) g/dL
--- NOTE | 2023-02-20 15:48 | P.CNPUL ---
History of Present Illness Consult date: 02/20/23 Reason for consult: dyspnea History of present illness: Tizanidine 87-year-old female patient, [facility] who [facility] the local [facility]. The patient was transferred to us because of altered mental status. She is a DO NOT RESUSCITATE DO NOT INTUBATE/static. The patient was also found to be in acute hypoxic respiratory failure. His oxygen level dropped and she was pulse oxing. 83% on 5 L of oxygen by nasal cannula. Subsequently she became progressively more confused, hypoxic and she was brought into the emergency department accordingly. While in the emergency, the patient became progressively more hypoxic. She was initially on nasal cannula and subsequently she was transitioned to a BiPAP at a pressure of 10/5 with an FiO2 of 75%. Chest x-ray shows no acute cardiopulmonary process from yesterday. She has a right IJ permacath. A repeat chest x-ray was done this morning and the patient was thought to be CHF with pulmonary vessel congestion and fluid overload along with cardiomegaly. The patient is a dialysis dependent and the patient is going to require dialysis today. The patient has already been seen by nephrology. She is currently pulse oxing 93% on BiPAP. Noted the patient has limited on hem odialysis 3 times a week Tuesdays and Saturdays. She has a right IJ permacath in place. She is a very poor historian. She had a low-grade temperature of 99.7 at the time of admission. She denies having any chest pain. She denies having any shortness of breath. No nausea or vomiting. She does not make urine. Her blood work showed a WBC count of 19 with a hemoglobin of 11.8 and a platelet count of 119. Coagulation profile was within normal limits. Covid 19 testing is negative. BUN is at 42 with a creatinine of 4.5. Sodium is at 135 and a potassium level is at 4.2. Other comorbidities include chronic atrial fibrillation and her current rhythm is sinus, previous history of CVA, diabetes mellitus, anemia of chronic disease, and previous history of pulmonary embolism. She was hospitalized back in November 2022 for bleeding from the AV fistula. The patient at that time was seen by vascular surgery and the patient underwent resection and removal of the AV fistula. The patient other has other comorbidities include coronary artery disease, rheumatoid arthritis and sleep apnea. I evaluated this patient in emergency. She was on the BiPAP. She was following simple commands. No agitation. No seizure activity. No focal neurological deficits. CAT scan of the brain was done and it showed no acute abnormalities. Is evidence of nonspecific white matter changes and remote left frontal injury. Review of Systems CONSTITUTIONAL: No malaise, no fatigue. HEENT: No recent visual problems or hearing problems. Denied any sore throat. CARDIOVASCULAR: No chest pain, orthopnea, PND, no palpitations, no syncope. PULMONARY: As mentioned in HPI GASTROINTESTINAL: No diarrhea, no nausea, no vomiting, no abdominal pain. NEUROLOGICAL: No headaches HEMATOLOGICAL: Denies any bleeding or petechiae. GENITOURINARY: Denies any burning micturition, frequency, or urgency. MUSCULOSKELETAL/RHEUMATOLOGICAL: Denies any joint pain, swelling, or any muscle pain. ENDOCRINE: Denies any polyuria or polydipsia. Past Medical History Past Medical History: Atrial Fibrillation, Heart Failure, CVA/TIA, Diabetes Anna litus, Dialysis, GERD/Reflux, Hyperlipidemia, Hypertension, Myocardial Infarction ([place]), Osteoarthritis (OA), Pulmonary Embolus (PE), Renal Disease, Rheumatoid Arthritis (RA), Sleep Apnea/CPAP/BIPAP, Thyroid Disorder Additional Past Medical History / Comment(s): on 02/06/20 with UTI/ESBL/bacteremia. Other hx: IDDM type II, diabetic neuropathy bilateral hands/feet, ESRD with hemodialysis, recurrent UTIs, pt was told she had a past [place] d/t EKG, palpitations, SSS with pacer, HARRIS with Cpap, chronic back and bilateral knee pain, hypothyroid. bilat carotid artery occlusions and a stroke she was unaware of Last Myocardial Infarction Date:: 01/2017 History of Any Multi-Drug Resistant Organisms: ESBL, MRSA, VRE Date of last positivie culture/infection: 02/01/21 VRE & MRSA at [facility] MDRO Source:: URINE-VRE & MRSA Past Surgical History: Bladder Surgery, Hysterectomy, Pacemaker Additional Past Surgical History / Comment(s): 02/01/20 R upper arm fistula repositioned, R chest boone cath, rectocele, cystocele, hemorrhoidectomy, bilateral leg vein strippings, bilateral cataract removal, Picc lines, bladder biopsy Past Anesthesia/Blood Transfusion Reactions: No Reported Reaction Type of Cardiac Device: Permanent Pacemaker Device Placement Date:: 01/2017 Past Psychological History: No Psychological Hx Reported Smoking Status: Never smoker Past Alcohol Use History: None Reported Past Drug Use History: None Reported - Past Family History Father Family Medical History: AFIB, AICD/Pacemaker, Congestive Heart Failure (CHF), Coronary Artery Disease (CAD), Diabetes Mellitus, Dialysis, Deep Vein Thrombosis (DVT), Hyperlipidemia, Hypertension, Myocardial Infarction ([place]), Rheumatoid Arthritis (RA) Mother Family Medical History: Unable to Obtain Sister(s) Family Medical History: Cancer Medications and Allergies Home Medications Medication Instructions Recorded Confirmed Type Levothyroxine Sodium [Synthroid] 100 mcg PO DAILY@0700 01/31/14 02/19/23 History allopurinoL [Zyloprim] 100 mg PO DAILY@0800 01/18/17 02/19/23 History Calcium Acetate [PhosLo] 2,001 mg PO TUTHSA@0800,1700 05/25/20 02/19/23 History Mirtazapine [Remeron] 15 mg PO HS@2100 05/25/20 02/19/23 History Folic Acid-Vit B Complex-Vit C 1 cap PO DAILY@0800 01/10/21 02/19/23 History [Nephrocaps] Apixaban [Eliquis] 2.5 mg PO SUMOWEFR@0800,1700 03/21/21 02/19/23 History Amiodarone [Cordarone] 200 mg PO DAILY@1700 12/03/22 02/19/23 History Atorvastatin [Lipitor] 20 mg PO HS@2100 12/03/22 02/19/23 History Biotin 10 mg PO DAILY@1700 12/03/22 02/19/23 History INSULIN LISPRO (HumaLOG) [humaLOG] See Protocol SQ ACHS 12/03/22 02/19/23 History Loratadine [Claritin] 10 mg PO DAILY@0800 12/03/22 02/19/23 History Midodrine HCl [ProAmatine] 10 mg PO DAILY@0800 12/03/22 02/19/23 History Mirabegron [Myrbetriq] 25 mg PO DAILY@0800 12/03/22 02/19/23 History Ondansetron [Zofran] 4 mg PO Q6H PRN 12/03/22 02/19/23 History Torsemide [Demadex] 20 mg PO MO@0800 12/03/22 02/19/23 History bisacodyL [Dulcolax] 10 mg RECTAL DAILY PRN 12/03/22 02/19/23 History Acetaminophen Tab [Tylenol] 650 mg PO Q4H PRN 02/19/23 02/19/23 History Apixaban [Eliquis] 2.5 mg PO TUTHSA@1700 02/19/23 02/19/23 History Calcium Acetate [Phoslo] 2,001 mg PO SUMOWEFR@08,12,17 02/19/23 02/19/23 History Famotidine [Pepcid] 20 mg PO DAILY@0800 02/19/23 02/19/23 History Gabapentin [Neurontin] 200 mg PO SUMOWEFR@0800 02/19/23 02/19/23 History Gabapentin [Neurontin] 300 mg PO DAILY@1700 02/19/23 02/19/23 History Glucerna Shake 1 can PO TUTHSA@1000 02/19/23 02/19/23 History Insulin Detemir (Levemir) [Levemir] 5 unit SQ HS@2100 02/19/23 02/19/23 History Magnesium Hydroxide [Milk of 7,200 mg PO DAILY PRN 02/19/23 02/19/23 History Magnesia Concentrate] Na Phos,M-B/Na Phos,Di-Ba [Fleet 133 ml RECTAL DAILY PRN 02/19/23 02/19/23 History Adult] calcitrioL [Calcitriol] 0.25 mcg PO TUTHSA 02/19/23 02/19/23 History Allergies Allergy/AdvReac Type Severity Reaction Status Date / Time amoxicillin Allergy Rash/Hives Verified 02/19/23 22:57 Penicillins Allergy Rash/Hives Verified 02/19/23 22:57 Sulfa (Sulfonamide Allergy Rash/Hives Verified 02/19/23 22:57 Antibiotics) meperidine HCl [From Demerol] AdvReac Nausea & Verified 02/19/23 22:57 Vomiting Physical Exam Vitals: Vital Signs Temp Pulse Resp BP Pulse Ox FiO2 02/20/23 11:31 70 20 94/49 93 L 02/20/23 11:25 76 20 90 L 02/20/23 11:21 75 02/20/23 11:19 70 13 06/22/23 11:11 73 21 02/20/23 11:10 50 02/20/23 10:20 74 20 98/46 86 L 02/20/23 08:31 71 18 100/51 94 L 02/20/23 06:30 97.8 F 71 20 104/52 95 02/20/23 05:07 73 20 99/47 94 L 02/20/23 03:06 90 20 99/47 90 L 02/20/23 02:31 81 14 94/47 95 02/20/23 02:00 84 16 83/45 93 L 02/20/23 01:40 98.3 F 02/20/23 00:00 89 16 92/45 95 02/19/23 23:12 94 L 02/19/23 23:00 99 16 106/64 88 L 02/19/23 21:20 99.7 F H 104 H 16 102/63 96 Intake and Output 02/19/23 02/20/23 02/20/23 22:59 06:59 14:59 Other: Weight 90.718 kg GENERAL: The patient is alert and oriented x3, not in any acute distress. Well developed, well nourished. The patient is currently on a BiPAP at a pressures of 10/5 cm of water HEENT: Pupils are round and equally reacting to light. EOMI. No scleral icterus. No conjunctival pallor. Normocephalic, atraumatic. No pharyngeal erythema. No thyromegaly. The patient is a permacath in the right IJ CARDIOVASCULAR: S1 and S2 present. No murmurs, rubs, or gallops. PULMONARY: Chest is clear to auscultation, no wheezing or crackles. ABDOMEN: Soft, nontender, nondistended, normoactive bowel sounds. No palpable organomegaly. MUSCULOSKELETAL: No joint swelling or deformity. EXTREMITIES: No cyanosis, clubbing, or pedal edema. NEUROLOGICAL: Gross neurological examination did not reveal any focal deficits. Examination of the skin revealed no evidence of significant rashes, suspicious appearing nevi or other concerning lesions. Results - Laboratory Findings CBC and BMP: 02/20/23 10:50 02/20/23 10:50 PT/INR, D-dimer PT 10.8 sec (9.0-12.0) 02/19/23 21:49 INR 1.0 (<1.2) 02/19/23 21:49 D-Dimer 2.65 mg/L FEU (<0.60) H 02/20/23 10:50 Abnormal lab findings: Abnormal Labs 02/19/23 02/19/23 02/20/23 21:49 21:49 10:50 WBC 19.0 H RBC 3.33 L MCV 112.4 H MCH 35.4 H RDW 17.1 H Neutrophils # 17.5 H Lymphocytes # 0.8 L Macrocytosis Marked A D-Dimer Sodium 135 L Chloride 96 L BUN 42 H 45 H Creatinine 4.56 H 4.51 H Glucose 194 H 172 H Calcium 8.1 L 6.7 L Total Protein 6.2 L 02/20/23 10:50 WBC RBC MCV MCH RDW Neutrophils # Lymphocytes # Macrocytosis D-Dimer 2.65 H Sodium Chloride BUN Creatinine Glucose Calcium Total Protein - Diagnostic Findings Chest x-ray: image reviewed Assessment and Plan Plan: Acute hypoxic respiratory failure secondary to CHF/fluid overload currently on BiPAP for respiratory support. Mental status change, improving End-stage renal disease on hemodialysis, patient undergoes dialysis 3 times a week MWF the permacath in the right upper extremity. Diabetes mellitus type 2 insulin-dependent Hypertension Hyperlipidemia History of A. fib fibrillation post-ablation History of sick sinus syndrome and the patient has a pacemaker in place History of obstructive sleep apnea maintained on CPAP therapy Chronic back pain and degenerative arthritis of the lower extremities Hypothyroidism Bilateral carotid artery disease/occlusion with a previous history of CVA History of recurrent UTIs including bacteremia with ESBL producing bacteria Rheumatoid arthritis DNR/DNI CODE STATUS Plan Keep the patient on BiPAP for now Proceed with hemodialysis Chest x-ray was reviewed and consistent with CHF and volume overload Resume all medications Check urinalysis if possible as the patient is not producing much of urine outpu t is point in time Resume all medication including anticoagulation Acute echocardiogram as the patient last echo was from 2020 We'll continue to follow Consult nephrology
[2023-02-20] MEDS: GABAPENTIN 100 MG CAP PO SCH (18:54)
[2023-02-20] MEDS: AMIODARONE 200 MG TAB PO SCH (18:54)
[2023-02-20 21:00] LABS: Glucose,Whole Blood 110 mg/dL (70-110)
[2023-02-20] MEDS: INSULIN DETEMIR (LEVEMIR) 100 UNIT/ML SYR SQ SCH (21:18)
[2023-02-20] MEDS: MIRTAZAPINE 15 MG TAB PO SCH (21:18)
[2023-02-20] MEDS: ATORVASTATIN 20 MG TAB PO SCH (21:19)
[2023-02-20] MEDS: APIXABAN 2.5 MG TABLET PO SCH (21:19)
--- NOTE | 2023-02-20 22:21 | P.CONS ---
History of Present Illness - Reason for Consult Consult date: 02/20/23 - History of Present Illness Patient is a 87-year-old female with a past medical history significant for end-stage renal disease on dialysis. Also with history of hypertension hyperlipidemia gout patient was brought into the ER from the local group home for evaluation of mental status changes current symptoms started yesterday afternoon patient was noticed to be febrile at the facility patient also complaining of cough multiple intensity with occasional sputum production no chest pain no hemoptysis no nausea no vomiting no choking on the food no abdominal pain or diarrhea patient was noted to be hypoxic on arrival to the with the same the patient was evaluated patient did have low-grade fever of 99.7 on presentation patient was hypoxic and need for supplemental oxygen currently on BiPAP did have white count 19,000 with a left shift BUN/creatinine has been elevated enzymes are normal influenza RSV and COVID testing was negative patient did have a chest x-ray that was negative for acute cardiopulmonary disease repeat chest x-ray this morning persistent small left greater than right effusion with adjacent atelectasis versus consolidation patient did receive a dose of cefepime infectious disease was consulted for further management of antibiotic therapy Past Medical History Past Medical History: Atrial Fibrillation, Heart Failure, CVA/TIA, Diabetes Anna litus, Dialysis, GERD/Reflux, Hyperlipidemia, Hypertension, Myocardial Infarction ([place]), Osteoarthritis (OA), Pulmonary Embolus (PE), Renal Disease, Rheumatoid Arthritis (RA), Sleep Apnea/CPAP/BIPAP, Thyroid Disorder Additional Past Medical History / Comment(s): on 02/06/20 with UTI/ESBL/bacteremia. Other hx: IDDM type II, diabetic neuropathy bilateral hands/feet, ESRD with hemodialysis, recurrent UTIs, pt was told she had a past [place] d/t EKG, palpitations, SSS with pacer, HARRIS with Cpap, chronic back and bilateral knee pain, hypothyroid. bilat carotid artery occlusions and a stroke she was unaware of Last Myocardial Infarction Date:: 01/2017 History of Any Multi-Drug Resistant Organisms: ESBL, MRSA, VRE Year Discovered:: 02/01/21 VRE & MRSA at [facility] MDRO Source:: URINE-VRE & MRSA Past Surgical History: Bladder Surgery, Hysterectomy, Pacemaker Additional Past Surgical History / Comment(s): 02/01/20 R upper arm fistula repositioned, R chest boone cath, rectocele, cystocele, hemorrhoidectomy, daniel ateral leg vein strippings, bilateral cataract removal, Picc lines, bladder biopsy Past Anesthesia/Blood Transfusion Reactions: No Reported Reaction Type of Cardiac Device: Permanent Pacemaker Device Placement Date:: 01/2017 Past Psychological History: No Psychological Hx Reported Smoking Status: Never smoker Past Alcohol Use History: None Reported Past Drug Use History: None Reported - Past Family History Father Family Medical History: AFIB, AICD/Pacemaker, Congestive Heart Failure (CHF), Coronary Artery Disease (CAD), Diabetes Mellitus, Dialysis, Deep Vein Thrombosis (DVT), Hyperlipidemia, Hypertension, Myocardial Infarction ([place]), Rheumatoid Arthritis (RA) Mother Family Medical History: Unable to Obtain Sister(s) Family Medical History: Cancer Medications and Allergies Home Medications Medication Instructions Recorded Confirmed Type Levothyroxine Sodium [Synthroid] 100 mcg PO DAILY@0700 01/31/14 02/19/23 History allopurinoL [Zyloprim] 100 mg PO DAILY@0800 01/18/17 02/19/23 History Calcium Acetate [PhosLo] 2,001 mg PO TUTHSA@0800,1700 05/25/20 02/19/23 History Mirtazapine [Remeron] 15 mg PO HS@2100 05/25/20 02/19/23 History Folic Acid-Vit B Complex-Vit C 1 cap PO DAILY@0800 01/10/21 02/19/23 History [Nephrocaps] Apixaban [Eliquis] 2.5 mg PO SUMOWEFR@0800,1700 03/21/21 02/19/23 History Amiodarone [Cordarone] 200 mg PO DAILY@1700 12/03/22 02/19/23 History Atorvastatin [Lipitor] 20 mg PO HS@2100 12/03/22 02/19/23 History Biotin 10 mg PO DAILY@1700 12/03/22 02/19/23 History INSULIN LISPRO (HumaLOG) [humaLOG] See Protocol SQ ACHS 12/03/22 02/19/23 History Loratadine [Claritin] 10 mg PO DAILY@0800 12/03/22 02/19/23 History Midodrine HCl [ProAmatine] 10 mg PO DAILY@0800 12/03/22 02/19/23 History Mirabegron [Myrbetriq] 25 mg PO DAILY@0800 12/03/22 02/19/23 History Ondansetron [Zofran] 4 mg PO Q6H PRN 12/03/22 02/19/23 History Torsemide [Demadex] 20 mg PO MO@0800 12/03/22 02/19/23 History bisacodyL [Dulcolax] 10 mg RECTAL DAILY PRN 12/03/22 02/19/23 History Acetaminophen Tab [Tylenol] 650 mg PO Q4H PRN 02/19/23 02/19/23 History Apixaban [Eliquis] 2.5 mg PO TUTHSA@1700 02/19/23 02/19/23 History Calcium Acetate [Phoslo] 2,001 mg PO SUMOWEFR@,,02/19/23 02/19/23 History Famotidine [Pepcid] 20 mg PO DAILY@0800 02/19/23 02/19/23 History Gabapentin [Neurontin] 200 mg PO SUMOWEFR@0800 02/19/23 02/19/23 History Gabapentin [Neurontin] 300 mg PO DAILY@1700 02/19/23 02/19/23 History Glucerna Shake 1 can PO TUTHSA@1000 02/19/23 02/19/23 History Insulin Detemir (Levemir) [Levemir] 5 unit SQ HS@2100 02/19/23 02/19/23 History Magnesium Hydroxide [Milk of 7,200 mg PO DAILY PRN 02/19/23 02/19/23 History Magnesia Concentrate] Na Phos,M-B/Na Phos,Di-Ba [Fleet 133 ml RECTAL DAILY PRN 02/19/23 02/19/23 History Adult] calcitrioL [Calcitriol] 0.25 mcg PO TUTHSA 02/19/23 02/19/23 History Allergies Allergy/AdvReac Type Severity Reaction Status Date / Time amoxicillin Allergy Rash/Hives Verified 02/19/23 22:57 Penicillins Allergy Rash/Hives Verified 02/19/23 22:57 Sulfa (Sulfonamide Allergy Rash/Hives Verified 02/19/23 22:57 Antibiotics) meperidine HCl [From Demerol] AdvReac Nausea & Verified 02/19/23 22:57 Vomiting Physical Exam Vitals: Vital Signs Temp Pulse Resp BP Pulse Ox FiO2 02/20/23 11:49 70 02/20/23 11:31 70 20 94/49 93 L 02/20/23 11:25 76 20 90 L 02/20/23 11:21 75 02/20/23 11:19 70 13 02/20/23 11:11 73 21 02/20/23 11:10 50 02/20/23 10:20 74 20 98/46 86 L 02/20/23 08:31 71 18 100/51 94 L 02/20/23 06:30 97.8 F 71 20 104/52 95 02/20/23 05:07 73 20 99/47 94 L 02/20/23 03:06 90 20 99/47 90 L 02/20/23 02:31 81 14 94/47 95 02/20/23 02:00 84 16 83/45 93 L 02/20/23 01:40 98.3 F 02/20/23 00:00 89 16 92/45 95 02/19/23 23:12 94 L 02/19/23 23:00 99 16 106/64 88 L 02/19/23 21:20 99.7 F H 104 H 16 102/63 96 Intake and Output 02/19/23 02/20/23 02/20/23 22:59 06:59 14:59 Other: Weight 90.718 kg Results CBC & Chem 7: 02/20/23 10:50 02/20/23 10:50 Labs: Abnormal Lab Results - Last 24 Hours (Table) 02/19/23 02/19/23 02/20/23 Range/Units 21:49 21:49 10:50 WBC 19.0 H (3.8-10.6) k/uL RBC 3.33 L 2.80 L (3.80-5.40) m/uL Hgb 10.0 L D (11.4-16.0) gm/dL Hct 31.4 L (34.0-46.0) % MCV 112.4 H 112.4 H (80.0-100.0) fL MCH 35.4 H 35.9 H (25.0-35.0) pg RDW 17.1 H 17.4 H (11.5-15.5) % Plt Count 131 L (150-450) k/uL Neutrophils # 17.5 H (1.3-7.7) k/uL Lymphocytes # 0.8 L (1.0-4.8) k/uL Macrocytosis Marked A Marked A D-Dimer (<0.60) mg/L FEU Sodium 135 L (137-145) mmol/L Chloride 96 L (98-107) mmol/L BUN 42 H (7-17) mg/dL Creatinine 4.56 H (0.52-1.04) mg/dL Glucose 194 H (74-99) mg/dL Calcium 8.1 L (8.4-10.2) mg/dL Total Protein 6.2 L (6.3-8.2) g/dL 02/20/23 02/20/23 Range/Units 10:50 10:50 WBC (3.8-10.6) k/uL RBC (3.80-5.40) m/uL Hgb (11.4-16.0) gm/dL Hct (34.0-46.0) % MCV (80.0-100.0) fL MCH (25.0-35.0) pg RDW (11.5-15.5) % Plt Count (150-450) k/uL Neutrophils # (1.3-7.7) k/uL Lymphocytes # (1.0-4.8) k/uL Macrocytosis D-Dimer 2.65 H (<0.60) mg/L FEU Sodium (137-145) mmol/L Chloride (98-107) mmol/L BUN 45 H (7-17) mg/dL Creatinine 4.51 H (0.52-1.04) mg/dL Glucose 172 H (74-99) mg/dL Calcium 6.7 L (8.4-10.2) mg/dL Total Protein (6.3-8.2) g/dL Assessment and Plan Plan: 1patient presented hospital with mental status changes also noticed to having a fever cough with evidence of effusion and concern for possible atelectasis versus consolidation possible pneumonia marked and excluded specially with a fever and elevated white count and possible gram-negative, patient to have a penicillin allergy to limit the number of antibiotics safe to use 2-we will obtain a CRP and a procalcitonin check sputum for Gram stain and culture 3-we will start the patient on cefepime 1 g daily dose adjusted to the kidney function We will follow on clinical condition and cultures to further adjust medication if needed Thank you for this consultation we will follow the patient along with you Time with Patient: Greater than 30
[2023-02-21 06:28] LABS: Glucose,Whole Blood 94 mg/dL (70-110)
[2023-02-21] MEDS: LEVOTHYROXINE 100 MCG TAB PO SCH (06:28)
[2023-02-21] MEDS: MIDODRINE 5 MG TAB PO SCH ×3 (06:28→16:26)
[2023-02-21 07:13] LABS: Glucose,Whole Blood 89 mg/dL (70-110)
[2023-02-21 07:58] LABS: Anisocytosis Slight; Basophils % (A) 0 %; Eosinophils # (A) 0.1 k/uL (0-0.7); Eosinophils % (A) 2 %; HCT 34.3 % (34.0-46.0); HGB 10.7 gm/dL (11.4-16.0); Hypochromasia Slight; Lymphocytes # (A) 1.4 k/uL (1.0-4.8); Lymphocytes % (A) 20 %; MCH 34.2 pg (25.0-35.0); MCHC 31.2 g/dL (31.0-37.0); MCV 109.9 fL (80.0-100.0); Macrocytosis Marked; Mean Platelet Volume 8.5; Monocytes # (A) 0.4 k/uL (0-1.0); Monocytes % (A) 6 %; Neutrophils # (A) 4.6 k/uL (1.3-7.7); Neutrophils % (A) 69 %; Platelet Count 153 k/uL (150-450); Poikilocytosis Slight; RBC 3.12 m/uL (3.80-5.40); RDW 17.7 % (11.5-15.5); WBC 6.6 k/uL (3.8-10.6)
[2023-02-21] MEDS ORDERED: MIDODRINE 5 MG TAB PO SCH (08:00)
[2023-02-21] MEDS: IPRATROPIUM-ALBUTEROL 3 ML NEB INHALATION PRN ×2 (09:17→12:19)
[2023-02-21] MEDS: Mirabegron [Myrbetriq] 25 MG Tab.Er.24h PO SCH (09:18)
[2023-02-21] MEDS: CALCIUM ACETATE 667 MG TAB PO SCH ×3 (09:29→16:26)
[2023-02-21] MEDS: CEFEPIME 1 GM in SODIUM CHLORIDE 0.9% 50 ML IVPB SCH (09:30)
[2023-02-21] MEDS: APIXABAN 2.5 MG TABLET PO SCH ×2 (09:30→16:26)
[2023-02-21] MEDS: GABAPENTIN 100 MG CAP PO SCH ×2 (09:30→16:26)
[2023-02-21] MEDS: FAMOTIDINE 20 MG TAB PO SCH (09:30)
[2023-02-21] MEDS: allopurinoL 100 MG TAB PO SCH (09:31)
[2023-02-21 10:14] LABS: C Reactive Protein 14.8 mg/dL (<1.0)
[2023-02-21 10:20] LABS: African American GFR (CKD) 15 (>60 ml/min/1.73 sqM); Anion Gap 11 mmol/L; Blood Urea Nitrogen 23 mg/dL (7-17); Carbon Dioxide 26 mmol/L (22-30); Chloride 102 mmol/L (98-107); Glucose 85 mg/dL (74-99); Non-African American GFR(CKD) 13 (>60 ml/min/1.73 sqM); Potassium 3.6 mmol/L (3.5-5.1); Sodium 139 mmol/L (137-145)
--- NOTE | 2023-02-21 11:01 | P.PN ---
Subjective Patient is seen in follow-up for end-stage renal disease. She is maintained on hemodialysis on Friday schedule. No problems with dialysis yesterday. Hemodynamically stable. No chest pain or shortness of breath. Currently on nasal cannula. Vital signs are stable. General: No acute distress. HEENT: Head exam is unremarkable. LUNGS: No audible rhonchi or wheezes. HEART: Rate and Rhythm are regular. ABDOMEN: Nontender. EXTREMITITES: No edema. Objective - Vital Signs Vital signs: Vital Signs Temp 97.4 F L 02/21/23 08:00 Pulse 80 02/21/23 09:30 Resp 16 02/21/23 08:00 BP 120/77 02/21/23 08:00 Pulse Ox 100 02/21/23 09:17 FiO2 40 02/21/23 04:35 Intake & Output 02/20/23 02/21/23 02/21/23 18:59 06:59 18:59 Intake Total 400 Output Total 1999 Balance -1600 Weight 90.718 kg Intake: Hemodialysis 400 Output: Hemodialysis 1999 Other: # Voids 1 - Labs CBC & Chem 7: 02/21/23 07:12 02/21/23 07:12 Labs: Abnormal Lab Results - Last 24 Hours (Table) 02/20/23 02/20/23 02/20/23 Range/Units 10:50 10:50 10:50 RBC 2.80 L (3.80-5.40) m/uL Hgb 10.0 L D (11.4-16.0) gm/dL Hct 31.4 L (34.0-46.0) % MCV 112.4 H (80.0-100.0) fL MCH 35.9 H (25.0-35.0) pg RDW 17.4 H (11.5-15.5) % Plt Count 131 L (150-450) k/uL Macrocytosis Marked A D-Dimer 2.65 H (<0.60) mg/L FEU BUN 45 H (7-17) mg/dL Creatinine 4.51 H (0.52-1.04) mg/dL Glucose 172 H (74-99) mg/dL Calcium 6.7 L (8.4-10.2) mg/dL C-Reactive Protein (<1.0) mg/dL 02/21/23 02/21/23 Range/Units 07:12 07:12 RBC 3.12 L (3.80-5.40) m/uL Hgb 10.7 L (11.4-16.0) gm/dL Hct (34.0-46.0) % MCV 109.9 H (80.0-100.0) fL MCH (25.0-35.0) pg RDW 17.7 H (11.5-15.5) % Plt Count (150-450) k/uL Macrocytosis Marked A D-Dimer (<0.60) mg/L FEU BUN 23 H (7-17) mg/dL Creatinine 3.06 H (0.52-1.04) mg/dL Glucose (74-99) mg/dL Calcium 8.0 L (8.4-10.2) mg/dL C-Reactive Protein 14.8 H (<1.0) mg/dL Assessment and Plan Plan: Assessment: 1. End-stage renal disease maintained on hemodialysis on Friday schedule via right chest permacath. 2. Altered mental status with low grade fever - concern for infection. On antibiotics for pneumonia. ID following. 3. Acute hypoxic respiratory failure. 4. Diabetes mellitus. 5. Chronic kidney disease mineral bone disease maintained on calcitriol and PhosLo. X. Chronic hypotension maintained on midodrine. Plan: Hemodialysis tomorrow. Follow-up cultures. Check phosphorus level.
[2023-02-21 12:04] LABS: Glucose,Whole Blood 172 mg/dL (70-110)
--- NOTE | 2023-02-21 13:34 | P.PN ---
Subjective Progress Note Date: 02/21/23 patient is a 87-year-old lady with past medical history significant for A. fib, end-stage renal disease on dialysis, hyperlipidemia, hypertension in the ER because of altered mental status. Patient was not acting her usual self for the last day, was having fever at the senior care, was also complaining of cough. Patient was complaining of shortness of breath at rest. Denies any nausea, vomiting abdominal pain. Because of altered mental status and seasonal, patient was brought to the ER. Initial lab work in the ER showed white count of 19, hemoglobin 11.8, platelet count 190, sodium 139, potassium 4.2, BUN 42, creatinine 4.56 X-ray chest negative for acute cardiopulmonary process CT brain negative for acute intracranial process Patient was admitted to medicine service On my examination, currently patient is on nonrebreather, complaint of shortness of breath. Denies any chest pain. Patient is alert, answering APPROPRIATELY 02/21. Patient seen and examined. His WBC 6.6, hemoglobin 10.7, sodium 139, potassium 3.6, BUN 23, creatinine 3.06,currently on 4 L of oxygen. Patient has improved a lot compared to yesterday. Patient is off the BiPAP REVIEW OF SYSTEMS: CONSTITUTIONAL: No fever, no malaise,. CARDIOVASCULAR: No chest pain, no palpitations, no syncope. PULMONARY: Breathing s improved GASTROINTESTINAL: No diarrhea, no nausea, no vomiting, no abdominal pain. NEUROLOGICAL: No headaches, no weakness, PHYSICAL EXAMINATION: GENERAL: The patient is alert and oriented x3, not in any acute distress. Well developed, well nourished. HEENT: Pupils are round and equally reacting to light. EOMI. No scleral icterus. No conjunctival pallor. Normocephalic, atraumatic. No pharyngeal erythema. No thyromegaly. CARDIOVASCULAR: S1 and S2 present. No murmurs, rubs, or gallops. PULMONARY: Chest is clear to auscultation, no wheezing or crackles. ABDOMEN: Soft, nontender, nondistended, normoactive bowel sounds. No palpable organomegaly. MUSCULOSKELETAL: No joint swelling or deformity. EXTREMITIES: No cyanosis, clubbing, or pedal edema. NEUROLOGICAL: Gross neurological examination did not reveal any focal deficits. SKIN: No rashes. Assessment and plan Acute metabolic encephalopathy Acute hypoxic respiratory failure Fever of unknown origin ESRD Hypertension Hyperlipidemia Insulin-dependent diabetes mellitus Atrial fibrillation ablation Monitor vital signs Monitor CBC Monitor CMP Follow-up on blood cultures Continue IV Cefepime, renal dosing Continue amiodarone and Eliquis Monitor blood sugar levels,continue current insulin regimen follow-up in ID recommendations continue maintenance dialysis per nephrology follow-up on pulmonary recommendations Objective - Vital Signs Vital signs: Vital Signs Temp 98.1 F 02/21/23 03:45 Pulse 80 02/21/23 09:30 Resp 14 02/21/23 03:45 BP 99/61 02/21/23 03:45 Pulse Ox 100 02/21/23 09:17 FiO2 40 02/21/23 04:35 Intake & Output 02/20/23 02/21/23 02/21/23 18:59 06:59 18:59 Intake Total 400 Output Total 2000 Balance -1600 Weight 90.718 kg Intake: Hemodialysis 400 Output: Hemodialysis 1999 Other: # Voids 1 - Labs CBC & Chem 7: 02/21/23 07:12 02/21/23 07:12 Labs: Abnormal Lab Results - Last 24 Hours (Table) 02/20/23 02/20/23 02/20/23 Range/Units 10:50 10:50 10:50 RBC 2.80 L (3.80-5.40) m/uL Hgb 10.0 L D (11.4-16.0) gm/dL Hct 31.4 L (34.0-46.0) % MCV 112.4 H (80.0-100.0) fL MCH 35.9 H (25.0-35.0) pg RDW 17.4 H (11.5-15.5) % Plt Count 131 L (150-450) k/uL Macrocytosis Marked A D-Dimer 2.65 H (<0.60) mg/L FEU BUN 45 H (7-17) mg/dL Creatinine 4.51 H (0.52-1.04) mg/dL Glucose 172 H (74-99) mg/dL Calcium 6.7 L (8.4-10.2) mg/dL C-Reactive Protein (<1.0) mg/dL 02/21/23 02/21/23 Range/Units 07:12 07:12 RBC 3.12 L (3.80-5.40) m/uL Hgb 10.7 L (11.4-16.0) gm/dL Hct (34.0-46.0) % MCV 109.9 H (80.0-100.0) fL MCH (25.0-35.0) pg RDW 17.7 H (11.5-15.5) % Plt Count (150-450) k/uL Macrocytosis Marked A D-Dimer (<0.60) mg/L FEU BUN (7-17) mg/dL Creatinine (0.52-1.04) mg/dL Glucose (74-99) mg/dL Calcium (8.4-10.2) mg/dL C-Reactive Protein 14.8 H (<1.0) mg/dL
--- NOTE | 2023-02-21 14:28 | P.PN ---
Subjective Progress Note Date: 02/21/23 Tizanidine 87-year-old female patient, long-term resident who resides at the local long-term. The patient was transferred to us because of altered mental status. She is a DO NOT RESUSCITATE DO NOT INTUBATE/static. The patient was also found to be in acute hypoxic respiratory failure. His oxygen level dropped and she was pulse oxing. 83% on 5 L of oxygen by nasal cannula. Subsequently she became progressively more confused, hypoxic and she was brought into the emergency department accordingly. While in the emergency, the patient became progressively more hypoxic. She was initially on nasal cannula and subsequently she was transitioned to a BiPAP at a pressure of 10/5 with an FiO2 of 75%. Chest x-ray shows no acute cardiopulmonary process from yesterday. She has a right IJ permacath. A repeat chest x-ray was done this morning and the patient was thought to be CHF with pulmonary vessel congestion and fluid overload along with cardiomegaly. The patient is a dialysis dependent and the patient is going to require dialysis today. The patient has already been seen by nephrology. She is currently pulse oxing 93% on BiPAP. Noted the patient has limited on hemodialysis 3 times a week Tuesdays and Saturdays. She has a right IJ permacath in place. She is a very poor historian. She had a low-grade temperature of 99.7 at the time of admission. She denies having any chest pain. She denies having any shortness of breath. No nausea or vomiting. She does not make urine. Her blood work showed a WBC count of 19 with a hemoglobin of 11.8 and a platelet count of 119. Coagulation profile was within normal limits. Covid 19 testing is negative. BUN is at 42 with a creatinine of 4.5. Sodium is at 135 and a potassium level is at 4.2. Other comorbidities include chronic atrial fibrillation and her current rhythm is sinus, previous history of CVA, diabetes mellitus, anemia of chronic disease, and previous history of pulmonary embolism. She was hospitalized back in November 2022 for bleeding from the AV fistula. The patient at that time was seen by vascular surgery and the patient underwent resection and removal of the AV fistula. The patient other has other comorbidities include coronary artery disease, rheumatoid arthritis and sleep apnea. I evaluated this patient in emergency. She was on the BiPAP. She was following simple commands. No agitation. No seizure activity. No focal neurological deficits. CAT scan of the brain was done and it showed no acute abnormalities. Is evidence of nonspecific white matter changes and remote left frontal injury. On today's evaluation of 02/18/2023, the patient is on 4 L of oxygen by nasal cannula. She is, comfortable. She was taken off the BiPAP. She underwent hemodialysis yesterday and session will be tomorrow. The findings of the case. She is currently on a medical surgical floor. No cough. No sputum production. She is on IV cefepime as an empiric antibiotic coverage. She is also on anticoagulation with Eliquis 2.5 mg twice daily regarding her paroxysmal A. fib. She is on amiodarone 200 mg by mouth daily. She is on bronchodilators. On her blood work, her family describes at 6.6 with a hemoglobin of 10.7 and a platelet count of 153. BUN is at 23 with a creatinine of 3.06. Sodium is at 139. Pro- calcitonin level was 1.76 yet interpretation is limited as the patient has also chronic kidney disease. The blood culture been negative thus far. No agitation. No altered mentation. The patient is quite comfortable. Objective - Vital Signs Vital signs: Vital Signs Temp 97.4 F L 02/21/23 08:00 Pulse 80 02/21/23 09:30 Resp 16 02/21/23 08:00 BP 120/77 02/21/23 08:00 Pulse Ox 100 02/21/23 09:17 FiO2 40 02/21/23 04:35 Intake & Output 02/20/23 02/21/23 02/21/23 18:59 06:59 18:59 Intake Total 400 Output Total 1999 Balance -1600 Weight 90.718 kg Intake: Hemodialysis 400 Output: Hemodialysis 1999 Other: # Voids 1 - Exam GENERAL: The patient is alert and oriented x3, not in any acute distress. Well developed, well nourished. The patient is currently on 4 L of Oxymizer nasal cannula HEENT: Pupils are round and equally reacting to light. EOMI. No scleral icterus. No conjunctival pallor. Normocephalic, atraumatic. No pharyngeal erythema. No thyromegaly. The patient is a permacath in the right IJ CARDIOVASCULAR: S1 and S2 present. No murmurs, rubs, or gallops. PULMONARY: Chest is clear to auscultation, no wheezing or crackles. ABDOMEN: Soft, nontender, nondistended, normoactive bowel sounds. No palpable organomegaly. MUSCULOSKELETAL: No joint swelling or deformity. EXTREMITIES: No cyanosis, clubbing, or pedal edema. NEUROLOGICAL: Gross neurological examination did not reveal any focal deficits. Examination of the skin revealed no evidence of significant rashes, suspicious appearing nevi or other concerning lesions. - Labs CBC & Chem 7: 02/21/23 07:12 02/21/23 07:12 Labs: Abnormal Lab Results - Last 24 Hours (Table) 02/20/23 02/20/23 02/21/23 Range/Units 10:50 10:50 07:12 RBC 2.80 L 3.12 L (3.80-5.40) m/uL Hgb 10.0 L D 10.7 L (11.4-16.0) gm/dL Hct 31.4 L (34.0-46.0) % MCV 112.4 H 109.9 H (80.0-100.0) fL MCH 35.9 H (25.0-35.0) pg RDW 17.4 H 17.7 H (11.5-15.5) % Plt Count 131 L (150-450) k/uL Macrocytosis Marked A Marked A BUN 45 H (7-17) mg/dL Creatinine 4.51 H (0.52-1.04) mg/dL Glucose 172 H (74-99) mg/dL Calcium 6.7 L (8.4-10.2) mg/dL C-Reactive Protein (<1.0) mg/dL 02/21/23 Range/Units 07:12 RBC (3.80-5.40) m/uL Hgb (11.4-16.0) gm/dL Hct (34.0-46.0) % MCV (80.0-100.0) fL MCH (25.0-35.0) pg RDW (11.5-15.5) % Plt Count (150-450) k/uL Macrocytosis BUN 23 H (7-17) mg/dL Creatinine 3.06 H (0.52-1.04) mg/dL Glucose (74-99) mg/dL Calcium 8.0 L (8.4-10.2) mg/dL C-Reactive Protein 14.8 H (<1.0) mg/dL Assessment and Plan Plan: Acute hypoxic respiratory failure secondary to CHF/fluid overload currently off the BiPAP on 4 L O2 nasal cannula, stable, Mental status change, improved and is back to normal Shortness of breath, improved with hemodialysis End-stage renal disease on hemodialysis, patient undergoes dialysis 3 times a week MWF the permacath in the right upper extremity.. The patient underwent hemodialysis yesterday and the second session will be tomorrow Diabetes mellitus type 2 insulin-dependent Hypertension Hyperlipidemia History of A. fib fibrillation post-ablation History of sick sinus syndrome and the patient has a pacemaker in place History of obstructive sleep apnea maintained on CPAP therapy Chronic back pain and degenerative arthritis of the lower extremities Hypothyroidism Bilateral carotid artery disease/occlusion with a previous history of CVA History of recurrent UTIs including bacteremia with ESBL producing bacteria Rheumatoid arthritis DNR/DNI CODE STATUS Plan Keep the patient on 4 L O2 nasal cannula Proceed with hemodialysis in a.m. The patient underwent hemodialysis yesterday with excellent response Pro calcitonin is elevated as the patient has chronic kidney disease Empiric antibiotic coverage Continue anticoagulation with Eliquis last echo was from 2020 We'll continue to follow
[2023-02-21] MEDS: AMIODARONE 200 MG TAB PO SCH (16:26)
[2023-02-21 17:05] LABS: Glucose,Whole Blood 155 mg/dL (70-110)
[2023-02-21 20:24] LABS: Glucose,Whole Blood 221 mg/dL (70-110)
[2023-02-21] MEDS: INSULIN DETEMIR (LEVEMIR) 100 UNIT/ML SYR SQ SCH (20:38)
[2023-02-21] MEDS: MIRTAZAPINE 15 MG TAB PO SCH (20:38)
[2023-02-21] MEDS: ATORVASTATIN 20 MG TAB PO SCH (20:38)
--- NOTE | 2023-02-21 22:58 | P.PN ---
Subjective Progress Note Date: 02/21/23 Principal diagnosis: Fever--Pneumoia Patient is a 87-year-old female with a past medical history of end- stage disease on dialysis hypertension hyperlipidemia has been sent to the ER for evaluation of mental status changes patient was noticed to be hypoxic did have elevated white count and there is concern for possible left lower lobe pneumonia. On today's evaluation that is 02/22/2020 the patient is afebrile patient is breathing comfortably currently on 4 L nasal cannula oxygen patient denies any chest pain she did have a cough not bringing any sputum no abdominal pain or diarrhea Objective - Vital Signs Vital signs: Vital Signs Temp 97.4 F L 02/21/23 08:00 Pulse 72 02/21/23 12:19 Resp 16 02/21/23 08:00 BP 120/77 02/21/23 08:00 Pulse Ox 100 02/21/23 09:17 FiO2 40 02/21/23 04:35 Intake & Output 02/20/23 02/21/23 02/21/23 18:59 06:59 18:59 Intake Total 400 Output Total 1999 Balance -1600 Weight 90.718 kg Intake: Hemodialysis 400 Output: Hemodialysis 1999 Other: # Voids 1 - Exam GENERAL DESCRIPTION: Elderly female lying in bed in no distress RESPIRATORY SYSTEM: Unlabored breathing , decreased breath sounds at bases HEART: S1 S2 regular rate and rhythm ,no loud murmurs ABDOMEN: Soft , no tenderness EXTREMITIES: No edema feet - Labs CBC & Chem 7: 02/21/23 07:12 02/21/23 07:12 Labs: Abnormal Lab Results - Last 24 Hours (Table) 02/21/23 02/21/23 02/21/23 Range/Units 07:12 07:12 07:12 RBC 3.12 L (3.80-5.40) m/uL Hgb 10.7 L (11.4-16.0) gm/dL MCV 109.9 H (80.0-100.0) fL RDW 17.7 H (11.5-15.5) % Macrocytosis Marked A BUN 23 H (7-17) mg/dL Creatinine 3.06 H (0.52-1.04) mg/dL POC Glucose (mg/dL) (70-110) mg/dL Calcium 8.0 L (8.4-10.2) mg/dL Phosphorus (2.5-4.5) mg/dL C-Reactive Protein 14.8 H (<1.0) mg/dL Procalcitonin 1.76 H (0.02-0.09) ng/mL 02/21/23 02/21/23 Range/Units 07:12 12:02 RBC (3.80-5.40) m/uL Hgb (11.4-16.0) gm/dL MCV (80.0-100.0) fL RDW (11.5-15.5) % Macrocytosis BUN (7-17) mg/dL Creatinine (0.52-1.04) mg/dL POC Glucose (mg/dL) 172 H (70-110) mg/dL Calcium (8.4-10.2) mg/dL Phosphorus 4.8 H (2.5-4.5) mg/dL C-Reactive Protein (<1.0) mg/dL Procalcitonin (0.02-0.09) ng/mL Assessment and Plan (1) Pneumonia Current Visit: Yes Status: Acute Code(s): J18.9 - PNEUMONIA, UNSPECIFIED ORGANISM SNOMED Code(s): 181615795 Plan: 1patient presented hospital with mental status changes also noticed to having a fever cough with evidence of effusion and concern for possible atelectasis versus consolidation possible pneumonia marked and excluded specially with a fever and elevated white count and possible gram-negative, patient to have a pe nicillin allergy to limit the number of antibiotics safe to use 2-Patient did have elevated CRP and a procalcitonin, the patient seem to have shown clinical improvement we will continue the patient on cefepime while waiting for the culture to finalize and monitor clinical course closely Time with Patient: Greater than 30
[2023-02-22 06:08] LABS: Glucose,Whole Blood 110 mg/dL (70-110)
[2023-02-22] MEDS: MIDODRINE 5 MG TAB PO SCH ×3 (06:26→16:31)
[2023-02-22] MEDS: Mirabegron [Myrbetriq] 25 MG Tab.Er.24h PO SCH (07:52)
[2023-02-22] MEDS: IPRATROPIUM-ALBUTEROL 3 ML NEB INHALATION PRN ×3 (07:53→20:19)
[2023-02-22] MEDS: LEVOTHYROXINE 100 MCG TAB PO SCH (08:09)
[2023-02-22] MEDS: CALCIUM ACETATE 667 MG TAB PO SCH ×2 (08:10→16:26)
[2023-02-22] MEDS: allopurinoL 100 MG TAB PO SCH (08:10)
[2023-02-22] MEDS: FAMOTIDINE 20 MG TAB PO SCH (08:11)
[2023-02-22] MEDS: CEFEPIME 1 GM in SODIUM CHLORIDE 0.9% 50 ML IVPB SCH (08:12)
[2023-02-22 09:45] LABS: Anisocytosis Slight; Basophils % (A) 0 %; Eosinophils # (A) 0.1 k/uL (0-0.7); Eosinophils % (A) 2 %; HCT 32.9 % (34.0-46.0); HGB 10.3 gm/dL (11.4-16.0); Hypochromasia Slight; Lymphocytes # (A) 1.9 k/uL (1.0-4.8); Lymphocytes % (A) 29 %; MCH 34.8 pg (25.0-35.0); MCHC 31.4 g/dL (31.0-37.0); MCV 110.5 fL (80.0-100.0); Macrocytosis Marked; Mean Platelet Volume 8.9; Monocytes # (A) 0.3 k/uL (0-1.0); Monocytes % (A) 4 %; Neutrophils # (A) 3.9 k/uL (1.3-7.7); Neutrophils % (A) 62 %; Platelet Count 130 k/uL (150-450); Poikilocytosis Slight; RBC 2.98 m/uL (3.80-5.40); RDW 17.3 % (11.5-15.5); WBC 6.3 k/uL (3.8-10.6)
[2023-02-22 10:19] LABS: ALT 18 U/L (4-34); AST 26 U/L (14-36); African American GFR (CKD) 10 (>60 ml/min/1.73 sqM); Alkaline Phosphatase 97 U/L (38-126); Anion Gap 11 mmol/L; Blood Urea Nitrogen 39 mg/dL (7-17); Calcium 7.4 mg/dL (8.4-10.2); Carbon Dioxide 24 mmol/L (22-30); Chloride 101 mmol/L (98-107); Glucose 220 mg/dL (74-99); Non-African American GFR(CKD) 9 (>60 ml/min/1.73 sqM); Potassium 3.5 mmol/L (3.5-5.1); Sodium 136 mmol/L (137-145); Total Bilirubin 0.4 mg/dL (0.2-1.3); Total Protein 5.7 g/dL (6.3-8.2)
[2023-02-22 10:36] LABS: Tear Drop Cells Present
[2023-02-22] MEDS: ACETAMINOPHEN TAB 325 MG TAB PO PRN ×2 (10:55→16:27)
[2023-02-22 11:43] LABS: Glucose,Whole Blood 177 mg/dL (70-110)
--- NOTE | 2023-02-22 13:22 | CONS ---
CONSULTATION HISTORY OF PRESENT ILLNESS: This is an 87-year-old female well known to me from the past. The patient had a fistula in the right arm which has been occluded. The patient is on dialysis through the right IJ. The patient came with history of mental status changes and acute hypoxic respiratory failure. Today, the patient is having dialysis through the right IJ catheter. Fistula on the right arm has been occluded. There were 2 stitches which has been removed. PHYSICAL EXAMINATION: NECK: Supple, the patient has right IJ catheter. CHEST: Clear. HEART: First and second sounds normal. ABDOMEN: Soft, nontender. EXTREMITIES: Femorals are 1+ bilaterally. At this point, the patient is tolerating dialysis well, we will follow up when she is discharged from the hospital proper, she will need venous mapping of the left arm. MMLILI / TAVO: [id number] /
--- NOTE | 2023-02-22 13:32 | P.PN ---
Subjective Progress Note Date: 02/22/23 Tizanidine 87-year-old female patient, senior living resident who resides at the local senior living. The patient was transferred to us because of altered mental status. She is a DO NOT RESUSCITATE DO NOT INTUBATE/static. The patient was also found to be in acute hypoxic respiratory failure. His oxygen level dropped and she was pulse oxing. 83% on 5 L of oxygen by nasal cannula. Subsequently she became progressively more confused, hypoxic and she was brought into the emergency department accordingly. While in the emergency, the patient became progressively more hypoxic. She was initially on nasal cannula and subsequently she was transitioned to a BiPAP at a pressure of 10/5 with an FiO2 of 75%. Chest x-ray shows no acute cardiopulmonary process from yesterday. She has a right IJ permacath. A repeat chest x-ray was done this morning and the patient was thought to be CHF with pulmonary vessel congestion and fluid overload along with cardiomegaly. The patient is a dialysis dependent and the patient is going to require dialysis today. The patient has already been seen by nephrology. She is currently pulse oxing 93% on BiPAP. Noted the patient has limited on hemodialysis 3 times a week Tuesdays and Saturdays. She has a right IJ permacath in place. She is a very poor historian. She had a low-grade temperature of 99.7 at the time of admission. She denies having any chest pain. She denies having any shortness of breath. No nausea or vomiting. She does not make urine. Her blood work showed a WBC count of 19 with a hemoglobin of 11.8 and a platelet count of 119. Coagulation profile was within normal limits. Covid 19 testing is negative. BUN is at 42 with a creatinine of 4.5. Sodium is at 135 and a potassium level is at 4.2. Other comorbidities include chronic atrial fibrillation and her current rhythm is sinus, previous history of CVA, diabetes mellitus, anemia of chronic disease, and previous history of pulmonary embolism. She was hospitalized back in November 2022 for bleeding from the AV fistula. The patient at that time was seen by vascular surgery and the patient underwent resection and removal of the AV fistula. The patient other has other comorbidities include coronary artery disease, rheumatoid arthritis and sleep apnea. I evaluated this patient in emergency. She was on the BiPAP. She was following simple commands. No agitation. No seizure activity. No focal neurological deficits. CAT scan of the brain was done and it showed no acute abnormalities. Is evidence of nonspecific white matter changes and remote left frontal injury. On today's evaluation of 02/18/2023, the patient is on 4 L of oxygen by nasal cannula. She is, comfortable. She was taken off the BiPAP. She underwent hemodialysis yesterday and session will be tomorrow. The findings of the case. She is currently on a medical surgical floor. No cough. No sputum production. She is on IV cefepime as an empiric antibiotic coverage. She is also on anticoagulation with Eliquis 2.5 mg twice daily regarding her paroxysmal A. fib. She is on amiodarone 200 mg by mouth daily. She is on bronchodilators. On her blood work, her family describes at 6.6 with a hemoglobin of 10.7 and a platelet count of 153. BUN is at 23 with a creatinine of 3.06. Sodium is at 139. Pro- calcitonin level was 1.76 yet interpretation is limited as the patient has also chronic kidney disease. The blood culture been negative thus far. No agitation. No altered mentation. The patient is quite comfortable. On 02/22/2023, the patient remains on oxygen at 2 L/m nasal cannula. She is undergoing hemodialysis today. She has no specific complaints. The volume sta tus been optimized with hemodialysis and ultrafiltration. Labs from today are noted. There was another 6.3 with a hemoglobin of 10.3. BUN is at 99 with a creatinine of 4.7 sodium level is at 136. Objective - Vital Signs Vital signs: Vital Signs Temp 97.4 F L 02/22/23 08:00 Pulse 100 02/22/23 08:05 Resp 18 02/22/23 08:00 BP 134/64 02/22/23 08:00 Pulse Ox 99 02/22/23 08:00 FiO2 40 02/21/23 04:35 Intake & Output 02/21/23 02/22/23 02/22/23 18:59 06:59 18:59 Intake Total 118 Balance 118 Intake: Oral 118 Other: # Voids 1 1 - Exam GENERAL: The patient is alert and oriented x3, not in any acute distress. Well developed, well nourished. The patient is currently on 4 L of Oxymizer nasal cannula HEENT: Pupils are round and equally reacting to light. EOMI. No scleral icterus. No conjunctival pallor. Normocephalic, atraumatic. No pharyngeal erythema. No thyromegaly. The patient is a permacath in the right IJ CARDIOVASCULAR: S1 and S2 present. No murmurs, rubs, or gallops. PULMONARY: Chest is clear to auscultation, no wheezing or crackles. ABDOMEN: Soft, nontender, nondistended, normoactive bowel sounds. No palpable organomegaly. MUSCULOSKELETAL: No joint swelling or deformity. EXTREMITIES: No cyanosis, clubbing, or pedal edema. NEUROLOGICAL: Gross neurological examination did not reveal any focal deficits. Examination of the skin revealed no evidence of significant rashes, suspicious appearing nevi or other concerning lesions. - Labs CBC & Chem 7: 02/22/23 09:18 02/22/23 09:18 Labs: Abnormal Lab Results - Last 24 Hours (Table) 02/21/23 02/21/23 02/21/23 Range/Units 07:12 07:12 12:02 RBC (3.80-5.40) m/uL Hgb (11.4-16.0) gm/dL Hct (34.0-46.0) % MCV (80.0-100.0) fL RDW (11.5-15.5) % Plt Count (150-450) k/uL Macrocytosis Sodium (137-145) mmol/L BUN (7-17) mg/dL Creatinine (0.52-1.04) mg/dL Glucose (74-99) mg/dL POC Glucose (mg/dL) 172 H (70-110) mg/dL Calcium (8.4-10.2) mg/dL Phosphorus 4.8 H (2.5-4.5) mg/dL Total Protein (6.3-8.2) g/dL Albumin (3.5-5.0) g/dL Procalcitonin 1.76 H (0.02-0.09) ng/mL 02/21/23 02/21/23 02/22/23 Range/Units 17:03 20:22 09:18 RBC 2.98 L (3.80-5.40) m/uL Hgb 10.3 L (11.4-16.0) gm/dL Hct 32.9 L (34.0-46.0) % MCV 110.5 H (80.0-100.0) fL RDW 17.3 H (11.5-15.5) % Plt Count 130 L (150-450) k/uL Macrocytosis Marked A Sodium (137-145) mmol/L BUN (7-17) mg/dL Creatinine (0.52-1.04) mg/dL Glucose (74-99) mg/dL POC Glucose (mg/dL) 155 H 221 H (70-110) mg/dL Calcium (8.4-10.2) mg/dL Phosphorus (2.5-4.5) mg/dL Total Protein (6.3-8.2) g/dL Albumin (3.5-5.0) g/dL Procalcitonin (0.02-0.09) ng/mL 02/22/23 Range/Units 09:18 RBC (3.80-5.40) m/uL Hgb (11.4-16.0) gm/dL Hct (34.0-46.0) % MCV (80.0-100.0) fL RDW (11.5-15.5) % Plt Count (150-450) k/uL Macrocytosis Sodium 136 L (137-145) mmol/L BUN 39 H (7-17) mg/dL Creatinine 4.30 H (0.52-1.04) mg/dL Glucose 220 H (74-99) mg/dL POC Glucose (mg/dL) (70-110) mg/dL Calcium 7.4 L (8.4-10.2) mg/dL Phosphorus (2.5-4.5) mg/dL Total Protein 5.7 L (6.3-8.2) g/dL Albumin 3.0 L (3.5-5.0) g/dL Procalcitonin (0.02-0.09) ng/mL Microbiology - Last 24 Hours (Table) 02/19/23 22:18 Blood Culture - Preliminary Blood 02/19/23 21:58 Blood Culture - Preliminary Blood Assessment and Plan Plan: Acute hypoxic respiratory failure secondary to CHF/fluid overload currently off the BiPAP on 2 L O2 nasal cannula, stable Mental status change, improved and is back to normal Shortness of breath, improved with hemodialysis End-stage renal disease on hemodialysis, patient undergoes dialysis 3 times a week MWF the permacath in the right upper extremity.. The patient underwent hemodialysis yesterday and the second session will be tomorrow Diabetes mellitus type 2 insulin-dependent Hypertension Hyperlipidemia History of A. fib fibrillation post-ablation History of sick sinus syndrome and the patient has a pacemaker in place History of obstructive sleep apnea maintained on CPAP therapy Chronic back pain and degenerative arthritis of the lower extremities Hypothyroidism Bilateral carotid artery disease/occlusion with a previous history of CVA History of recurrent UTIs including bacteremia with ESBL producing bacteria Rheumatoid arthritis DNR/DNI CODE STATUS Plan Keep the patient on 2 L O2 nasal cannula Undergoing hemodialysis today Pro calcitonin is elevated as the patient has chronic kidney disease Empiric antibiotic coverage Continue anticoagulation with Eliquis last echo was from 2020 We'll continue to follow
--- NOTE | 2023-02-22 14:49 | P.PN ---
Subjective Progress Note Date: 02/22/23 patient is a 87-year-old lady with past medical history significant for A. fib, end-stage renal disease on dialysis, hyperlipidemia, hypertension in the ER because of altered mental status. Patient was not acting her usual self for the last day, was having fever at the prison, was also complaining of cough. Patient was complaining of shortness of breath at rest. Denies any nausea, vomiting abdominal pain. Because of altered mental status and seasonal, patient was brought to the ER. Initial lab work in the ER showed white count of 19, hemoglobin 11.8, platelet count 190, sodium 139, potassium 4.2, BUN 42, creatinine 4.56 X-ray chest negative for acute cardiopulmonary process CT brain negative for acute intracranial process Patient was admitted to medicine service On my examination, currently patient is on nonrebreather, complaint of shortness of breath. Denies any chest pain. Patient is alert, answering APPROPRIATELY 02/21. Patient seen and examined. His WBC 6.6, hemoglobin 10.7, sodium 139, potassium 3.6, BUN 23, creatinine 3.06,currently on 4 L of oxygen. Patient has improved a lot compared to yesterday. Patient is off the BiPAP 02/22. Patient seen and examined currently undergoing dialysis. States she feels better. REVIEW OF SYSTEMS: CONSTITUTIONAL: No fever, no malaise,. CARDIOVASCULAR: No chest pain, no palpitations, no syncope. PULMONARY: Breathing s improved GASTROINTESTINAL: No diarrhea, no nausea, no vomiting, no abdominal pain. NEUROLOGICAL: No headaches, no weakness, PHYSICAL EXAMINATION: GENERAL: The patient is alert and oriented x3, not in any acute distress. Well developed, well nourished. HEENT: Pupils are round and equally reacting to light. EOMI. No scleral icterus. No conjunctival pallor. Normocephalic, atraumatic. No pharyngeal erythema. No thyromegaly. CARDIOVASCULAR: S1 and S2 present. No murmurs, rubs, or gallops. PULMONARY: Chest is clear to auscultation, no wheezing or crackles. ABDOMEN: Soft, nontender, nondistended, normoactive bowel sounds. No palpable organomegaly. MUSCULOSKELETAL: No joint swelling or deformity. EXTREMITIES: No cyanosis, clubbing, or pedal edema. NEUROLOGICAL: Gross neurological examination did not reveal any focal deficits. SKIN: No rashes. Assessment and plan Acute metabolic encephalopathy Acute hypoxic respiratory failure Fever of unknown origin ESRD Hypertension Hyperlipidemia Insulin-dependent diabetes mellitus Atrial fibrillation ablation Monitor vital signs Monitor CBC Monitor CMP Follow-up on blood cultures Continue IV Cefepime, renal dosing Continue amiodarone and Eliquis Monitor blood sugar levels,continue current insulin regimen follow-up in ID recommendations continue maintenance dialysis per nephrology follow-up on pulmonary recommendations Objective - Vital Signs Vital signs: Vital Signs Temp 98.2 F 02/22/23 13:32 Pulse 72 02/22/23 13:32 Resp 18 02/22/23 13:32 BP 116/55 02/22/23 13:32 Pulse Ox 92 L 02/22/23 12:00 FiO2 40 02/21/23 04:35 Intake & Output 02/21/23 02/22/23 02/22/23 18:59 06:59 18:59 Intake Total 758 Output Total 1900 Balance -1142 Intake: Oral 358 Hemodialysis 400 Output: Hemodialysis 1900 Other: # Voids 1 1 - Labs CBC & Chem 7: 02/22/23 09:18 02/22/23 09:18 Labs: Abnormal Lab Results - Last 24 Hours (Table) 02/21/23 02/21/23 02/22/23 Range/Units 17:03 20:22 09:18 RBC 2.98 L (3.80-5.40) m/uL Hgb 10.3 L (11.4-16.0) gm/dL Hct 32.9 L (34.0-46.0) % MCV 110.5 H (80.0-100.0) fL RDW 17.3 H (11.5-15.5) % Plt Count 130 L (150-450) k/uL Macrocytosis Marked A Sodium (137-145) mmol/L BUN (7-17) mg/dL Creatinine (0.52-1.04) mg/dL Glucose (74-99) mg/dL POC Glucose (mg/dL) 155 H 221 H (70-110) mg/dL Calcium (8.4-10.2) mg/dL Total Protein (6.3-8.2) g/dL Albumin (3.5-5.0) g/dL 02/22/23 02/22/23 Range/Units 09:18 11:42 RBC (3.80-5.40) m/uL Hgb (11.4-16.0) gm/dL Hct (34.0-46.0) % MCV (80.0-100.0) fL RDW (11.5-15.5) % Plt Count (150-450) k/uL Macrocytosis Sodium 136 L (137-145) mmol/L BUN 39 H (7-17) mg/dL Creatinine 4.30 H (0.52-1.04) mg/dL Glucose 220 H (74-99) mg/dL POC Glucose (mg/dL) 177 H (70-110) mg/dL Calcium 7.4 L (8.4-10.2) mg/dL Total Protein 5.7 L (6.3-8.2) g/dL Albumin 3.0 L (3.5-5.0) g/dL Microbiology - Last 24 Hours (Table) 02/19/23 22:18 Blood Culture - Preliminary Blood 02/19/23 21:58 Blood Culture - Preliminary Blood
--- NOTE | 2023-02-22 15:58 | P.PN ---
Subjective Progress Note Date: 02/22/23 Follow-up for ESRD. Finished dialysis today, tolerating well. No dialysis related issues. Objective - Vital Signs Vital signs: Vital Signs Temp 98.2 F 02/22/23 13:32 Pulse 102 H 02/22/23 15:17 Resp 18 02/22/23 13:32 BP 116/55 02/22/23 13:32 Pulse Ox 92 L 02/22/23 12:00 FiO2 40 02/21/23 04:35 Intake & Output 02/21/23 02/22/23 02/22/23 18:59 06:59 18:59 Intake Total 758 Output Total 1900 Balance -1142 Intake: Oral 358 Hemodialysis 400 Output: Hemodialysis 1900 Other: # Voids 1 1 1 # Bowel Movements 1 - Exam No acute distress S1-S2 heard Decreased breath Sounds Right jugular permacath Edema, trace - Labs CBC & Chem 7: 02/22/23 09:18 02/22/23 09:18 Labs: Abnormal Lab Results - Last 24 Hours (Table) 02/21/23 02/21/23 02/22/23 Range/Units 17:03 20:22 09:18 RBC 2.98 L (3.80-5.40) m/uL Hgb 10.3 L (11.4-16.0) gm/dL Hct 32.9 L (34.0-46.0) % MCV 110.5 H (80.0-100.0) fL RDW 17.3 H (11.5-15.5) % Plt Count 130 L (150-450) k/uL Macrocytosis Marked A Sodium (137-145) mmol/L BUN (7-17) mg/dL Creatinine (0.52-1.04) mg/dL Glucose (74-99) mg/dL POC Glucose (mg/dL) 155 H 221 H (70-110) mg/dL Calcium (8.4-10.2) mg/dL Total Protein (6.3-8.2) g/dL Albumin (3.5-5.0) g/dL 02/22/23 02/22/23 Range/Units 09:18 11:42 RBC (3.80-5.40) m/uL Hgb (11.4-16.0) gm/dL Hct (34.0-46.0) % MCV (80.0-100.0) fL RDW (11.5-15.5) % Plt Count (150-450) k/uL Macrocytosis Sodium 136 L (137-145) mmol/L BUN 39 H (7-17) mg/dL Creatinine 4.30 H (0.52-1.04) mg/dL Glucose 220 H (74-99) mg/dL POC Glucose (mg/dL) 177 H (70-110) mg/dL Calcium 7.4 L (8.4-10.2) mg/dL Total Protein 5.7 L (6.3-8.2) g/dL Albumin 3.0 L (3.5-5.0) g/dL Microbiology - Last 24 Hours (Table) 02/19/23 22:18 Blood Culture - Preliminary Blood 02/19/23 21:58 Blood Culture - Preliminary Blood Assessment and Plan Assessment: #1 ESRD, TTS, right chest permacath #2 encephalopathy, concern for infection/pneumonia #3 acute hypoxic respiratory failure, better #4 anemia with ESRD #5 metabolic bone disease #6 chronic hypotension on midodrine Plan: #1 hemodialysis, TTS schedule #2 antibiotics as per infectious disease/primary team #3 ESRD medications
[2023-02-22] MEDS: GABAPENTIN 100 MG CAP PO SCH (16:26)
[2023-02-22] MEDS: APIXABAN 2.5 MG TABLET PO SCH (16:27)
[2023-02-22] MEDS: AMIODARONE 200 MG TAB PO SCH (16:27)
[2023-02-22 16:44] LABS: Glucose,Whole Blood 203 mg/dL (70-110)
[2023-02-22 20:18] LABS: Glucose,Whole Blood 292 mg/dL (70-110)
[2023-02-22] MEDS: INSULIN DETEMIR (LEVEMIR) 100 UNIT/ML SYR SQ SCH (21:44)
[2023-02-22] MEDS: ATORVASTATIN 20 MG TAB PO SCH (21:45)
[2023-02-22] MEDS: MIRTAZAPINE 15 MG TAB PO SCH (21:46)
[2023-02-23] MEDS: MIDODRINE 5 MG TAB PO SCH ×3 (06:01→18:20)
[2023-02-23] MEDS: LEVOTHYROXINE 100 MCG TAB PO SCH (06:01)
[2023-02-23] MEDS: Mirabegron [Myrbetriq] 25 MG Tab.Er.24h PO SCH (08:08)
[2023-02-23 08:20] LABS: Anisocytosis Slight; HGB 11.1 gm/dL (11.4-16.0); Hypochromasia Marked; MCH 35.5 pg (25.0-35.0); MCHC 31.6 g/dL (31.0-37.0); MCV 112.5 fL (80.0-100.0); Macrocytosis Marked; Mean Platelet Volume 8.7; Platelet Count 127 k/uL (150-450); RBC 3.12 m/uL (3.80-5.40); RDW 16.9 % (11.5-15.5); WBC 5.3 k/uL (3.8-10.6)
[2023-02-23] MEDS: CEFEPIME 1 GM in SODIUM CHLORIDE 0.9% 50 ML IVPB SCH (08:21)
[2023-02-23] MEDS: APIXABAN 2.5 MG TABLET PO SCH ×2 (08:21→16:37)
[2023-02-23] MEDS: CALCIUM ACETATE 667 MG TAB PO SCH ×3 (08:21→16:37)
[2023-02-23] MEDS: GABAPENTIN 100 MG CAP PO SCH ×2 (08:22→16:37)
[2023-02-23] MEDS: FAMOTIDINE 20 MG TAB PO SCH (08:22)
[2023-02-23] MEDS: allopurinoL 100 MG TAB PO SCH (08:22)
[2023-02-23 08:35] LABS: ALT 16 U/L (4-34); African American GFR (CKD) 15 (>60 ml/min/1.73 sqM); Albumin 2.9 g/dL (3.5-5.0); Anion Gap 9 mmol/L; Blood Urea Nitrogen 26 mg/dL (7-17); Calcium 7.6 mg/dL (8.4-10.2); Carbon Dioxide 24 mmol/L (22-30); Chloride 97 mmol/L (98-107); Glucose 123 mg/dL (74-99); Non-African American GFR(CKD) 13 (>60 ml/min/1.73 sqM); Sodium 130 mmol/L (137-145); Total Bilirubin 0.5 mg/dL (0.2-1.3); Total Protein 5.5 g/dL (6.3-8.2)
[2023-02-23] MEDS: ACETAMINOPHEN TAB 325 MG TAB PO PRN ×2 (08:36→16:37)
[2023-02-23 08:39] LABS: AST 33 U/L (14-36); Alkaline Phosphatase 92 U/L (38-126); Potassium 4.2 mmol/L (3.5-5.1)
[2023-02-23] MEDS: IPRATROPIUM-ALBUTEROL 3 ML NEB INHALATION PRN ×2 (08:53→16:13)
[2023-02-23 10:02] LABS: Eosinophils # (M) 0.05 k/uL (0-0.7); Monocytes # (M) 0.37 k/uL (0-1.0); Neutrophils # (M) 3.07 k/uL (1.3-7.7); Neutrophils % (M) 58 %; Nucleated Red Blood Cells 0 /100 WBC (0-0); Total Cells Counted 100
--- NOTE | 2023-02-23 10:41 | P.PN ---
Subjective Progress Note Date: 02/22/23 Principal diagnosis: Fever--Pneumoia Patient is a 87-year-old female with a past medical history of end- stage disease on dialysis hypertension hyperlipidemia has been sent to the ER for evaluation of mental status changes patient was noticed to be hypoxic did have elevated white count and there is concern for possible left lower lobe pneumonia. On today's evaluation that is 02/22/2023 the patient remains to be afebrile, the patient is breathing comfortably on 2 L nasal cannula oxygen patient denies having any chest pain or shortness of breath did have occasional cough not bringing up any sputum no abdominal pain no diarrhea Objective - Vital Signs Vital signs: Vital Signs Temp 98 F 02/22/23 12:00 Pulse 70 02/22/23 12:00 Resp 16 02/22/23 12:00 BP 105/55 02/22/23 12:00 Pulse Ox 92 L 02/22/23 12:00 FiO2 40 02/21/23 04:35 Intake & Output 02/21/23 02/22/23 02/22/23 18:59 06:59 18:59 Intake Total 118 Balance 118 Intake: Oral 118 Other: # Voids 1 1 - Exam GENERAL DESCRIPTION: Elderly female lying in bed in no distress RESPIRATORY SYSTEM: Unlabored breathing , decreased breath sounds at bases HEART: S1 S2 regular rate and rhythm ,no loud murmurs ABDOMEN: Soft , no tenderness EXTREMITIES: No edema feet - Labs CBC & Chem 7: 02/23/23 07:06 02/23/23 07:06 Labs: Abnormal Lab Results - Last 24 Hours (Table) 02/21/23 02/21/23 02/22/23 Range/Units 17:03 20:22 09:18 RBC 2.98 L (3.80-5.40) m/uL Hgb 10.3 L (11.4-16.0) gm/dL Hct 32.9 L (34.0-46.0) % MCV 110.5 H (80.0-100.0) fL RDW 17.3 H (11.5-15.5) % Plt Count 130 L (150-450) k/uL Macrocytosis Marked A Sodium (137-145) mmol/L BUN (7-17) mg/dL Creatinine (0.52-1.04) mg/dL Glucose (74-99) mg/dL POC Glucose (mg/dL) 155 H 221 H (70-110) mg/dL Calcium (8.4-10.2) mg/dL Total Protein (6.3-8.2) g/dL Albumin (3.5-5.0) g/dL 02/22/23 02/22/23 Range/Units 09:18 11:42 RBC (3.80-5.40) m/uL Hgb (11.4-16.0) gm/dL Hct (34.0-46.0) % MCV (80.0-100.0) fL RDW (11.5-15.5) % Plt Count (150-450) k/uL Macrocytosis Sodium 136 L (137-145) mmol/L BUN 39 H (7-17) mg/dL Creatinine 4.30 H (0.52-1.04) mg/dL Glucose 220 H (74-99) mg/dL POC Glucose (mg/dL) 177 H (70-110) mg/dL Calcium 7.4 L (8.4-10.2) mg/dL Total Protein 5.7 L (6.3-8.2) g/dL Albumin 3.0 L (3.5-5.0) g/dL Microbiology - Last 24 Hours (Table) 02/19/23 22:18 Blood Culture - Preliminary Blood 02/19/23 21:58 Blood Culture - Preliminary Blood Assessment and Plan (1) Pneumonia Current Visit: Yes Status: Acute Code(s): J18.9 - PNEUMONIA, UNSPECIFIED ORGANISM SNOMED Code(s): 562454872 Plan: 1patient presented hospital with mental status changes also noticed to having a fever cough with evidence of effusion and concern for possible atelectasis versus consolidation possible pneumonia marked and excluded specially with a fever and elevated white count and possible gram-negative, patient to have a penicillin allergy to limit the number of antibiotics safe to use 2-Patient did have elevated CRP and a procalcitonin, 3- the patient seem to have shown clinical improvement, continue the patient on cefepime while waiting for the culture to finalize Time with Patient: Less than 30
[2023-02-23 11:33] LABS: Glucose,Whole Blood 140 mg/dL (70-110)
--- NOTE | 2023-02-23 12:40 | P.PN ---
Subjective Progress Note Date: 02/23/23 Tizanidine 87-year-old female patient, alf resident who resides at the local alf. The patient was transferred to us because of altered mental status. She is a DO NOT RESUSCITATE DO NOT INTUBATE/static. The patient was also found to be in acute hypoxic respiratory failure. His oxygen level dropped and she was pulse oxing. 83% on 5 L of oxygen by nasal cannula. Subsequently she became progressively more confused, hypoxic and she was brought into the emergency department accordingly. While in the emergency, the patient became progressively more hypoxic. She was initially on nasal cannula and subsequently she was transitioned to a BiPAP at a pressure of 10/5 with an FiO2 of 75%. Chest x-ray shows no acute cardiopulmonary process from yesterday. She has a right IJ permacath. A repeat chest x-ray was done this morning and the patient was thought to be CHF with pulmonary vessel congestion and fluid overload along with cardiomegaly. The patient is a dialysis dependent and the patient is going to require dialysis today. The patient has already been seen by nephrology. She is currently pulse oxing 93% on BiPAP. Noted the patient has limited on hemodialysis 3 times a week Tuesdays and Saturdays. She has a right IJ permacath in place. She is a very poor historian. She had a low-grade temperature of 99.7 at the time of admission. She denies having any chest pain. She denies having any shortness of breath. No nausea or vomiting. She does not make urine. Her blood work showed a WBC count of 19 with a hemoglobin of 11.8 and a platelet count of 119. Coagulation profile was within normal limits. Covid 19 testing is negative. BUN is at 42 with a creatinine of 4.5. Sodium is at 135 and a potassium level is at 4.2. Other comorbidities include chronic atrial fibrillation and her current rhythm is sinus, previous history of CVA, diabetes mellitus, anemia of chronic disease, and previous history of pulmonary embolism. She was hospitalized back in November 2022 for bleeding from the AV fistula. The patient at that time was seen by vascular surgery and the patient underwent resection and removal of the AV fistula. The patient other has other comorbidities include coronary artery disease, rheumatoid arthritis and sleep apnea. I evaluated this patient in emergency. She was on the BiPAP. She was following simple commands. No agitation. No seizure activity. No focal neurological deficits. CAT scan of the brain was done and it showed no acute abnormalities. Is evidence of nonspecific white matter changes and remote left frontal injury. On today's evaluation of 02/18/2023, the patient is on 4 L of oxygen by nasal cannula. She is, comfortable. She was taken off the BiPAP. She underwent hemodialysis yesterday and session will be tomorrow. The findings of the case. She is currently on a medical surgical floor. No cough. No sputum production. She is on IV cefepime as an empiric antibiotic coverage. She is also on anticoagulation with Eliquis 2.5 mg twice daily regarding her paroxysmal A. fib. She is on amiodarone 200 mg by mouth daily. She is on bronchodilators. On her blood work, her family describes at 6.6 with a hemoglobin of 10.7 and a platelet count of 153. BUN is at 23 with a creatinine of 3.06. Sodium is at 139. Pro- calcitonin level was 1.76 yet interpretation is limited as the patient has also chronic kidney disease. The blood culture been negative thus far. No agitation. No altered mentation. The patient is quite comfortable. On 02/22/2023, the patient remains on oxygen at 2 L/m nasal cannula. She is undergoing hemodialysis today. She has no specific complaints. The volume sta tus been optimized with hemodialysis and ultrafiltration. Labs from today are noted. There was another 6.3 with a hemoglobin of 10.3. BUN is at 99 with a creatinine of 4.7 sodium level is at 136. On 02/23/2023, the patient is on room air oxygen. No complaints. She underwent hemodialysis yesterday. No signs of any respiratory distress. No signs of any fluid overload. The patient's potassium levels at 4.2, BUN is 26 with a creatinine of 3. White cell count is at 5.3 with a hemoglobin of 11. Objective - Vital Signs Vital signs: Vital Signs Temp 98.1 F 02/23/23 04:00 Pulse 80 02/23/23 09:04 Resp 16 02/23/23 04:00 BP 104/62 02/23/23 04:00 Pulse Ox 96 02/23/23 08:57 FiO2 21 02/23/23 08:57 Intake & Output 02/22/23 02/23/23 02/23/23 18:59 06:59 18:59 Intake Total 1416 200 358 Output Total 1900 Balance -484 200 358 Intake: Oral 1016 200 358 Hemodialysis 400 Output: Hemodialysis 1900 Other: # Voids 1 1 # Bowel Movements 1 - Exam GENERAL: The patient is alert and oriented x3, not in any acute distress. Well developed, well nourished. The patient is currently on 4 L of Oxymizer nasal cannula HEENT: Pupils are round and equally reacting to light. EOMI. No scleral icterus. No conjunctival pallor. Normocephalic, atraumatic. No pharyngeal erythema. No thyromegaly. The patient is a permacath in the right IJ CARDIOVASCULAR: S1 and S2 present. No murmurs, rubs, or gallops. PULMONARY: Chest is clear to auscultation, no wheezing or crackles. ABDOMEN: Soft, nontender, nondistended, normoactive bowel sounds. No palpable organomegaly. MUSCULOSKELETAL: No joint swelling or deformity. EXTREMITIES: No cyanosis, clubbing, or pedal edema. NEUROLOGICAL: Gross neurological examination did not reveal any focal deficits. Examination of the skin revealed no evidence of significant rashes, suspicious appearing nevi or other concerning lesions. - Labs CBC & Chem 7: 02/23/23 07:06 02/23/23 07:06 Labs: Abnormal Lab Results - Last 24 Hours (Table) 02/22/23 02/22/23 02/22/23 Range/Units 09:18 11:42 16:42 RBC (3.80-5.40) m/uL Hgb (11.4-16.0) gm/dL MCV (80.0-100.0) fL MCH (25.0-35.0) pg RDW (11.5-15.5) % Plt Count (150-450) k/uL Macrocytosis Sodium 136 L (137-145) mmol/L Chloride (98-107) mmol/L BUN 39 H (7-17) mg/dL Creatinine 4.30 H (0.52-1.04) mg/dL Glucose 220 H (74-99) mg/dL POC Glucose (mg/dL) 177 H 203 H (70-110) mg/dL Calcium 7.4 L (8.4-10.2) mg/dL Total Protein 5.7 L (6.3-8.2) g/dL Albumin 3.0 L (3.5-5.0) g/dL 02/22/23 02/23/23 02/23/23 Range/Units 20:16 07:06 07:06 RBC 3.12 L (3.80-5.40) m/uL Hgb 11.1 L (11.4-16.0) gm/dL MCV 112.5 H (80.0-100.0) fL MCH 35.5 H (25.0-35.0) pg RDW 16.9 H (11.5-15.5) % Plt Count 127 L (150-450) k/uL Macrocytosis Marked A Sodium 130 L (137-145) mmol/L Chloride 97 L (98-107) mmol/L BUN 26 H (7-17) mg/dL Creatinine 3.06 H (0.52-1.04) mg/dL Glucose 123 H (74-99) mg/dL POC Glucose (mg/dL) 292 H (70-110) mg/dL Calcium 7.6 L (8.4-10.2) mg/dL Total Protein 5.5 L (6.3-8.2) g/dL Albumin 2.9 L (3.5-5.0) g/dL Microbiology - Last 24 Hours (Table) 02/19/23 22:18 Blood Culture - Preliminary Blood 02/19/23 21:58 Blood Culture - Preliminary Blood Assessment and Plan Plan: Acute hypoxic respiratory failure secondary to CHF/fluid overload currently off the BiPAP on 2 L O2 nasal cannula, and subsequently weaned down to room air oxygen Mental status change, improved and is back to normal Shortness of breath, improved with hemodialysis End-stage renal disease on hemodialysis, patient undergoes dialysis 3 times a week MWF the permacath in the right upper extremity.. The patient underwent hemodialysis yesterday and the second session will be tomorrow Diabetes mellitus type 2 insulin-dependent Hypertension Hyperlipidemia History of A. fib fibrillation post-ablation History of sick sinus syndrome and the patient has a pacemaker in place History of obstructive sleep apnea maintained on CPAP therapy Chronic back pain and degenerative arthritis of the lower extremities Hypothyroidism Bilateral carotid artery disease/occlusion with a previous history of CVA History of recurrent UTIs including bacteremia with ESBL producing bacteria Rheumatoid arthritis DNR/DNI CODE STATUS Plan Patient is currently on room air oxygen Undergoing hemodialysis yesterday Pro calcitonin is elevated as the patient has chronic kidney disease Empiric antibiotic coverage Continue anticoagulation with Eliquis last echo was from 2020 We'll sign off the case for now. No active pulmonary issues for now.
--- NOTE | 2023-02-23 13:55 | P.PN ---
Subjective Progress Note Date: 02/23/23 patient is a 87-year-old lady with past medical history significant for A. fib, end-stage renal disease on dialysis, hyperlipidemia, hypertension in the ER because of altered mental status. Patient was not acting her usual self for the last day, was having fever at the retirement, was also complaining of cough. Patient was complaining of shortness of breath at rest. Denies any nausea, vomiting abdominal pain. Because of altered mental status and seasonal, patient was brought to the ER. Initial lab work in the ER showed white count of 19, hemoglobin 11.8, platelet count 190, sodium 139, potassium 4.2, BUN 42, creatinine 4.56 X-ray chest negative for acute cardiopulmonary process CT brain negative for acute intracranial process Patient was admitted to medicine service On my examination, currently patient is on nonrebreather, complaint of shortness of breath. Denies any chest pain. Patient is alert, answering APPROPRIATELY 02/21. Patient seen and examined. His WBC 6.6, hemoglobin 10.7, sodium 139, potassium 3.6, BUN 23, creatinine 3.06,currently on 4 L of oxygen. Patient has improved a lot compared to yesterday. Patient is off the BiPAP 02/22. Patient seen and examined currently undergoing dialysis. States she feels better. 02/23. Patient seen and examined. No acute issues overnight. WBC 5.3, hemoglobin 11.1, platelet count 127, sodium 1:30, BUN 26, creatinine 3.06. Cur rently not requiring any oxygen. REVIEW OF SYSTEMS: CONSTITUTIONAL: No fever, no malaise,. CARDIOVASCULAR: No chest pain, no palpitations, no syncope. PULMONARY: Breathing s improved GASTROINTESTINAL: No diarrhea, no nausea, no vomiting, no abdominal pain. NEUROLOGICAL: No headaches, no weakness, PHYSICAL EXAMINATION: GENERAL: The patient is alert and oriented x3, not in any acute distress. Well developed, well nourished. HEENT: Pupils are round and equally reacting to light. EOMI. No scleral icterus. No conjunctival pallor. Normocephalic, atraumatic. No pharyngeal erythema. No thyromegaly. CARDIOVASCULAR: S1 and S2 present. No murmurs, rubs, or gallops. PULMONARY: Chest is clear to auscultation, no wheezing or crackles. ABDOMEN: Soft, nontender, nondistended, normoactive bowel sounds. No palpable organomegaly. MUSCULOSKELETAL: No joint swelling or deformity. EXTREMITIES: No cyanosis, clubbing, or pedal edema. NEUROLOGICAL: Gross neurological examination did not reveal any focal deficits. SKIN: No rashes. Assessment and plan Acute metabolic encephalopathy Acute hypoxic respiratory failure Fever of unknown origin ESRD Hypertension Hyperlipidemia Insulin-dependent diabetes mellitus Atrial fibrillation ablation Monitor vital signs Monitor CBC Monitor CMP Follow-up on blood cultures Continue IV Cefepime, renal dosing Continue amiodarone and Eliquis Monitor blood sugar levels,continue current insulin regimen follow-up in ID recommendations continue maintenance dialysis per nephrology Pulmonary signed off Objective - Vital Signs Vital signs: Vital Signs Temp 98.1 F 02/23/23 04:00 Pulse 80 02/23/23 09:04 Resp 16 02/23/23 04:00 BP 104/62 02/23/23 04:00 Pulse Ox 96 02/23/23 08:57 FiO2 21 02/23/23 08:57 Intake & Output 02/22/23 02/23/23 02/23/23 18:59 06:59 18:59 Intake Total 1416 200 358 Output Total 1900 Balance -484 200 358 Intake: Oral 1016 200 358 Hemodialysis 400 Output: Hemodialysis 1900 Other: # Voids 1 1 # Bowel Movements 1 - Labs CBC & Chem 7: 02/23/23 07:06 02/23/23 07:06 Labs: Abnormal Lab Results - Last 24 Hours (Table) 02/22/23 02/22/23 02/22/23 Range/Units 11:42 16:42 20:16 RBC (3.80-5.40) m/uL Hgb (11.4-16.0) gm/dL MCV (80.0-100.0) fL MCH (25.0-35.0) pg RDW (11.5-15.5) % Plt Count (150-450) k/uL Macrocytosis Sodium (137-145) mmol/L Chloride (98-107) mmol/L BUN (7-17) mg/dL Creatinine (0.52-1.04) mg/dL Glucose (74-99) mg/dL POC Glucose (mg/dL) 177 H 203 H 292 H (70-110) mg/dL Calcium (8.4-10.2) mg/dL Total Protein (6.3-8.2) g/dL Albumin (3.5-5.0) g/dL 02/23/23 02/23/23 Range/Units 07:06 07:06 RBC 3.12 L (3.80-5.40) m/uL Hgb 11.1 L (11.4-16.0) gm/dL MCV 112.5 H (80.0-100.0) fL MCH 35.5 H (25.0-35.0) pg RDW 16.9 H (11.5-15.5) % Plt Count 127 L (150-450) k/uL Macrocytosis Marked A Sodium 130 L (137-145) mmol/L Chloride 97 L (98-107) mmol/L BUN 26 H (7-17) mg/dL Creatinine 3.06 H (0.52-1.04) mg/dL Glucose 123 H (74-99) mg/dL POC Glucose (mg/dL) (70-110) mg/dL Calcium 7.6 L (8.4-10.2) mg/dL Total Protein 5.5 L (6.3-8.2) g/dL Albumin 2.9 L (3.5-5.0) g/dL Microbiology - Last 24 Hours (Table) 02/19/23 22:18 Blood Culture - Preliminary Blood 02/19/23 21:58 Blood Culture - Preliminary Blood
--- NOTE | 2023-02-23 15:46 | P.PN ---
Subjective Progress Note Date: 02/23/23 Follow-up for ESRD. Objective - Vital Signs Vital signs: Vital Signs Temp 97.9 F 02/23/23 12:00 Pulse 80 02/23/23 12:00 Resp 16 02/23/23 12:00 BP 113/74 02/23/23 12:00 Pulse Ox 94 L 02/23/23 12:00 FiO2 21 02/23/23 08:57 Intake & Output 02/22/23 02/23/23 02/23/23 18:59 06:59 18:59 Intake Total 1416 200 692 Output Total 1900 Balance -484 200 692 Intake: Oral 1016 200 692 Hemodialysis 400 Output: Hemodialysis 1900 Other: # Voids 1 1 # Bowel Movements 1 - Exam No acute distress S1-S2 heard Decreased breath Sounds Right jugular permacath Edema, trace - Labs CBC & Chem 7: 02/23/23 07:06 02/23/23 07:06 Labs: Abnormal Lab Results - Last 24 Hours (Table) 02/22/23 02/22/23 02/23/23 Range/Units 16:42 20:16 07:06 RBC 3.12 L (3.80-5.40) m/uL Hgb 11.1 L (11.4-16.0) gm/dL MCV 112.5 H (80.0-100.0) fL MCH 35.5 H (25.0-35.0) pg RDW 16.9 H (11.5-15.5) % Plt Count 127 L (150-450) k/uL Macrocytosis Marked A Sodium (137-145) mmol/L Chloride (98-107) mmol/L BUN (7-17) mg/dL Creatinine (0.52-1.04) mg/dL Glucose (74-99) mg/dL POC Glucose (mg/dL) 203 H 292 H (70-110) mg/dL Calcium (8.4-10.2) mg/dL Total Protein (6.3-8.2) g/dL Albumin (3.5-5.0) g/dL 02/23/23 02/23/23 Range/Units 07:06 11:31 RBC (3.80-5.40) m/uL Hgb (11.4-16.0) gm/dL MCV (80.0-100.0) fL MCH (25.0-35.0) pg RDW (11.5-15.5) % Plt Count (150-450) k/uL Macrocytosis Sodium 130 L (137-145) mmol/L Chloride 97 L (98-107) mmol/L BUN 26 H (7-17) mg/dL Creatinine 3.06 H (0.52-1.04) mg/dL Glucose 123 H (74-99) mg/dL POC Glucose (mg/dL) 140 H (70-110) mg/dL Calcium 7.6 L (8.4-10.2) mg/dL Total Protein 5.5 L (6.3-8.2) g/dL Albumin 2.9 L (3.5-5.0) g/dL Microbiology - Last 24 Hours (Table) 02/19/23 22:18 Blood Culture - Preliminary Blood 02/19/23 21:58 Blood Culture - Preliminary Blood Assessment and Plan Assessment: #1 ESRD, TTS, right chest permacath #2 encephalopathy, concern for infection/pneumonia #3 acute hypoxic respiratory failure, better #4 anemia with ESRD #5 metabolic bone disease #6 chronic hypotension on midodrine Plan: #1 hemodialysis, TTS schedule #2 antibiotics as per infectious disease/primary team #3 ESRD medications
[2023-02-23] MEDS: AMIODARONE 200 MG TAB PO SCH (16:37)
[2023-02-23 16:51] LABS: Glucose,Whole Blood 147 mg/dL (70-110)
[2023-02-23 20:12] LABS: Glucose,Whole Blood 162 mg/dL (70-110)
[2023-02-23] MEDS: INSULIN DETEMIR (LEVEMIR) 100 UNIT/ML SYR SQ SCH (21:39)
[2023-02-23] MEDS: MIRTAZAPINE 15 MG TAB PO SCH (21:39)
[2023-02-23] MEDS: ATORVASTATIN 20 MG TAB PO SCH (21:39)
[2023-02-24] MEDS: LEVOTHYROXINE 100 MCG TAB PO SCH (05:38)
[2023-02-24] MEDS: MIDODRINE 5 MG TAB PO SCH ×2 (05:38→12:20)
[2023-02-24 06:13] LABS: Glucose,Whole Blood 102 mg/dL (70-110)
[2023-02-24] MEDS: CALCIUM ACETATE 667 MG TAB PO SCH ×2 (08:39→12:20)
[2023-02-24] MEDS: FAMOTIDINE 20 MG TAB PO SCH (08:39)
[2023-02-24] MEDS: APIXABAN 2.5 MG TABLET PO SCH (08:40)
[2023-02-24] MEDS: Mirabegron [Myrbetriq] 25 MG Tab.Er.24h PO SCH (08:40)
[2023-02-24] MEDS: GABAPENTIN 100 MG CAP PO SCH (08:40)
[2023-02-24] MEDS: allopurinoL 100 MG TAB PO SCH (08:40)
[2023-02-24] MEDS: CEFEPIME 1 GM in SODIUM CHLORIDE 0.9% 50 ML IVPB SCH (08:40)
[2023-02-24 10:26] VITALS: RESP 20
[2023-02-24 11:36] LABS: Glucose,Whole Blood 188 mg/dL (70-110)
--- NOTE | 2023-02-24 12:10 | CDI ---
Documentation Clarification Form Date: 02/24/2023 11:50:21 AM From: Nelly Nation RN CCDS Phone: [phone] Admit Date: 02/20/2023 12:11:00 AM Patient Name: Yamilet Lopez Visit Number: [id number] Discharge Date: ATTENTION: The Clinical Documentation Specialists (CDI) and [facility] Coding Staff appreciate your assistance in clarifying documentation. Please respond to the clarification below the line at the bottom and electronically sign. The CDI & [facility] Coding staff will review the response and follow-up if needed. Please note: Queries are made part of the Legal Health Record. If you have any questions, please contact the author of this message via ITS. Dr. Mumtaz Lr Your patient has the documented diagnosis of unspecified CHF 02/20, Pulmonary consult and notes thereafter. Additional information regarding the type, acuity of CHF is requested. History/Risk Factors:87-year-old Female presents to the ED because of altered mental status, shortness of breath and cough. Medical History: Afib; ESRD, HTN; HLD and DM. 02/20, H&P. Clinical Indicators: VS/Pulse OX, 02/19: B/P 102/63; HR 104; Temp 99.7F Oral; RR 16; SpO2 96% room air 02/19: B/P 106/64; HR 99; RR 16; SpO2 88% ra BNP, 02/19: [id number] Echocardiogram Results:02/03/2021 EF 55-60% Mild aortic valve sclerosis. Mild mitral annular calcification present. Mild mitral annular calcification present. Mild mitral and tricuspid regurgitation present. Mild to moderate pulmonary HTN. Trace/mild (physiologic) pulmonic regurgitation. Chest X Ray: 02/20: Persistent small left greater than right pleural effusions with adjacent atelectasis and/or consolidation. Mild cardiomegaly. Right sided double lumen hemodialysis catheter. Pulmonary consult, 02/20: Acute hypoxic respiratory failure secondary to CHF/fluid overload currently on BiPAP for respiratory support. Treatment: Dialysis Wednesday 02/21 Hemodialysis output 2000ml; and Friday 02/23 Hemodialysis output 1900ml In your professional opinion, can you please clarify the acuity and type of CHF if known? [x ] Acute on Chronic Diastolic Heart Failure (preserved EF) [ ] Chronic Diastolic Heart Failure (preserved EF) [ ] Other, please specify [ ] Unable to determine (Template Last Revised: October 2020) MTDD
--- NOTE | 2023-02-24 12:30 | CDI ---
Documentation Clarification Form Date: 02/24/2023 12:11:28 PM From: Nelly Nation RN CCDS Phone: [phone] Admit Date: 02/20/2023 12:11:00 AM Patient Name: Yamilet Lopez Visit Number: [id number] Discharge Date: ATTENTION: The Clinical Documentation Specialists (CDI) and [facility] Coding Staff appreciate your assistance in clarifying documentation. Please respond to the clarification below the line at the bottom and electronically sign. The CDI & [facility] Coding staff will review the response and follow-up if needed. Please note: Queries are made part of the Legal Health Record. If you have any questions, please contact the author of this message via ITS. Dr. Mumtaz Lr The patients principal diagnosis the diagnosis that was chiefly responsible for the admission - has not been clearly identified and clarification is requested. The patient presented with the following Fever, cough and shortness of breath. History/Risk Factors:87-year-old Female presents to the ED because of altered mental status, shortness of breath and cough. Medical History: Afib; ESRD, HTN; HLD and DM. 02/20, H&P. Clinical Indicators: Nephrology note: The patient was noticed to be hypoxic did have elevated white count and there is concern for possible left lower lobe pneumonia. ID, 02/22: Pneumonia Lab findings: Wbc 19.0; Neutrophils 17.5; CRP 14.8; Procalcitonin 1.76 CXR, 02/20: Persistent small left greater than right pleural effusions with adjacent atelectasis and / or consolidation. Mild cardiomegaly. VS/Pulse OX, 02/19: B/P 102/63; HR 104; Temp 99.7F Oral; RR 16; SpO2 96% room air Treatment: 02/19: Tylenol po x 1; 02/20 Cefepime Ivpb x 1; 02/20 0.9NS 500cc bolus; 02/21 Cefepime IVPB Daily, 02/20 Duoneb/Ipratropium 3ml Inhalation QID PRN. Consults: ID see above. In your professional opinion, can you please clarify which diagnosis, after study, was the reason chiefly responsible for the admission? [ ] Sepsis [ x] Pneumonia [ ] Other, please specify [ ] Unable to determine (Template Last Revised: October 2020) MTDD
--- NOTE | 2023-02-24 12:34 | P.DS ---
Providers Date of admission: 02/20/23 00:11 Expected date of discharge: 02/24/23 Attending physician: Luis E Velez Consults: 02/20/23 00:11 Consult Physician Urgent Consulting Provider: Shaji Velazco Consult Reason/Comments: esrd on hd - , , sat Do you want consulting provider notified?: Yes Consult Physician Urgent Consulting Provider: Israel Ayon Consult Reason/Comments: sepsis, esrd on hd Do you want consulting provider notified?: Yes 02/20/23 10:28 Consult Physician Urgent Consulting Provider: Kem Newman Consult Reason/Comments: Acute respiratory failure Do you want consulting provider notified?: Yes 02/20/23 12:49 Consult Physician Urgent Consulting Provider: Erik Argueta Consult Reason/Comments: november fistula repair, retained sutures Do you want consulting provider notified?: Yes Primary care physician: [facility] Course: Discharge diagnoses; Acute metabolic encephalopathy Acute hypoxic respiratory failure Bacterial pneumonia Acute on chronic diastolic heart failure ESRD Hypertension Hyperlipidemia Insulin-dependent diabetes mellitus Atrial fibrillation ablation Hospital course; patient is a 87-year-old lady with past medical history significant for A. fib, end-stage renal disease on dialysis, hyperlipidemia, hypertension in the ER because of altered mental status. Patient was not acting her usual self for the last day, was having fever at the fdc, was also complaining of cough. Patient was complaining of shortness of breath at rest. Denies any nausea, vomiting abdominal pain. Because of altered mental status and seasonal, patient was brought to the ER. Initial lab work in the ER showed white count of 19, hemoglobin 11.8, platelet count 190, sodium 139, potassium 4.2, BUN 42, creatinine 4.56 X-ray chest negative for acute cardiopulmonary process CT brain negative for acute intracranial process Patient was admitted to medicine service On my examination, currently patient is on nonrebreather, complaint of shortness of breath. Denies any chest pain. Patient is alert, answering APPROPRIATELY 02/21. Patient seen and examined. His WBC 6.6, hemoglobin 10.7, sodium 139, potassium 3.6, BUN 23, creatinine 3.06,currently on 4 L of oxygen. Patient has improved a lot compared to yesterday. Patient is off the BiPAP 02/22. Patient seen and examined currently undergoing dialysis. States she feels better. 02/23. Patient seen and examined. No acute issues overnight. WBC 5.3, hemoglobin 11.1, platelet count 127, sodium 1:30, BUN 26, creatinine 3.06. Currently not requiring any oxygen. 02/24. Patient seen and examined. Id cleared the patient for discharge on oral Ceftin 500 mg daily for 5 days. PHYSICAL EXAMINATION: GENERAL: The patient is alert and oriented x3, not in any acute distress. Well developed, well nourished. HEENT: Pupils are round and equally reacting to light. EOMI. No scleral icterus. No conjunctival pallor. Normocephalic, atraumatic. No pharyngeal erythema. No thyromegaly. CARDIOVASCULAR: S1 and S2 present. No murmurs, rubs, or gallops. PULMONARY: Chest is clear to auscultation, no wheezing or crackles. ABDOMEN: Soft, nontender, nondistended, normoactive bowel sounds. No palpable organomegaly. MUSCULOSKELETAL: No joint swelling or deformity. EXTREMITIES: No cyanosis, clubbing, or pedal edema. NEUROLOGICAL: Gross neurological examination did not reveal any focal deficits. SKIN: No rashes. Patient Condition at Discharge: Stable Plan - Discharge Summary Discharge Rx Participant: No New Discharge Prescriptions: New Gabapentin [Neurontin] 200 mg PO SUMOWEFR@0800 #6 cap Gabapentin [Neurontin] 300 mg PO DAILY@1700 #9 cap cefUROXime axetiL [Cefuroxime] 500 mg PO DAILY #5 tab Continue Levothyroxine Sodium [Synthroid] 100 mcg PO DAILY@0700 allopurinoL [Zyloprim] 100 mg PO DAILY@0800 Calcium Acetate [PhosLo] 2,001 mg PO TUTHSA@0800,1700 Mirtazapine [Remeron] 15 mg PO HS@2100 Atorvastatin [Lipitor] 20 mg PO HS@2100 Biotin 10 mg PO DAILY@1700 bisacodyL [Dulcolax] 10 mg RECTAL DAILY PRN PRN Reason: Constipation INSULIN LISPRO (HumaLOG) [humaLOG] See Protocol SQ ACHS Loratadine [Claritin] 10 mg PO DAILY@0800 Mirabegron [Myrbetriq] 25 mg PO DAILY@0800 Torsemide [Demadex] 20 mg PO MO@0800 Acetaminophen Tab [Tylenol] 650 mg PO Q4H PRN PRN Reason: Pain Or Fever > 100.5 Insulin Detemir (Levemir) [Levemir] 5 unit SQ HS@2100 Glucerna Shake 1 can PO TUTHSA@1000 Famotidine [Pepcid] 20 mg PO DAILY@0800 calcitrioL [Calcitriol] 0.25 mcg PO TUTHSA Magnesium Hydroxide [Milk of Magnesia Concentrate] 7,200 mg PO DAILY PRN PRN Reason: Constipation Folic Acid-Vit B Complex-Vit C [Nephrocaps] 1 cap PO DAILY@0800 Apixaban [Eliquis] 2.5 mg PO SUMOWEFR@0800,1700 Amiodarone [Cordarone] 200 mg PO DAILY@1700 Midodrine HCl [ProAmatine] 10 mg PO DAILY@0800 Ondansetron [Zofran] 4 mg PO Q6H PRN PRN Reason: Nausea Na Phos,M-B/Na Phos,Di-Ba [Fleet Adult] 133 ml RECTAL DAILY PRN PRN Reason: Constipation Calcium Acetate [PhosLo] 2,001 mg PO SUMOWEFR@ Discontinued Gabapentin [Neurontin] 200 mg PO SUMOWEFR@0800 Apixaban [Eliquis] 2.5 mg PO TUTHSA@1700 Gabapentin [Neurontin] 300 mg PO DAILY@1700 Discharge Medication List Levothyroxine Sodium [Synthroid] 100 mcg PO DAILY@0700 01/31/14 [History] allopurinoL [Zyloprim] 100 mg PO DAILY@0801/18/17 [History] Calcium Acetate [PhosLo] 2,001 mg PO TUTHSA@0800,1700 05/25/20 [History] Mirtazapine [Remeron] 15 mg PO HS@209905/25/20 [History] Folic Acid-Vit B Complex-Vit C [Nephrocaps] 1 cap PO DAILY@0800 01/10/21 [History] Apixaban [Eliquis] 2.5 mg PO SUMOWEFR@0800,1700 03/21/21 [History] Amiodarone [Cordarone] 200 mg PO DAILY@169912/03/22 [History] Atorvastatin [Lipitor] 20 mg PO HS@209912/03/22 [History] Biotin 10 mg PO DAILY@169912/03/22 [History] INSULIN LISPRO (HumaLOG) [humaLOG] See Protocol SQ ACHS 12/03/22 [History] Loratadine [Claritin] 10 mg PO DAILY@0800 12/03/22 [History] Midodrine HCl [ProAmatine] 10 mg PO DAILY@0800 12/03/22 [History] Mirabegron [Myrbetriq] 25 mg PO DAILY@0800 12/03/22 [History] Ondansetron [Zofran] 4 mg PO Q6H PRN 12/03/22 [History] Torsemide [Demadex] 20 mg PO MO@0800 12/03/22 [History] bisacodyL [Dulcolax] 10 mg RECTAL DAILY PRN 12/03/22 [History] Acetaminophen Tab [Tylenol] 650 mg PO Q4H PRN 02/19/23 [History] Calcium Acetate [PhosLo] 2,001 mg PO SUMOWEFR@08,12,17 02/19/23 [History] Famotidine [Pepcid] 20 mg PO DAILY@0800 02/19/23 [History] Glucerna Shake 1 can PO TUTHSA@1000 02/19/23 [History] Insulin Detemir (Levemir) [Levemir] 5 unit SQ HS@2100 02/19/23 [History] Magnesium Hydroxide [Milk of Magnesia Concentrate] 7,200 mg PO DAILY PRN 02/19/23 [History] Na Phos,M-B/Na Phos,Di-Ba [Fleet Adult] 133 ml RECTAL DAILY PRN 02/19/23 [History] calcitrioL [Calcitriol] 0.25 mcg PO TUTHSA 02/19/23 [History] Gabapentin [Neurontin] 200 mg PO SUMOWEFR@0800 #6 cap 02/24/23 [Rx] Gabapentin [Neurontin] 300 mg PO DAILY@1700 #9 cap 02/24/23 [Rx] cefUROXime axetiL [Cefuroxime] 500 mg PO DAILY #5 tab 02/24/23 [Rx] Follow up Appointment(s)/Referral(s): Gama Mcginnis MD [Primary Care Provider] - 1-2 days
[2023-02-24 13:27] VITALS: BMI 32.1
--- NOTE | 2023-02-24 14:09 | P.PN ---
Subjective Patient is seen for follow-up for end-stage renal disease. Maintained on Friday schedule No significant complaints today. Objective - Vital Signs Vital signs: Vital Signs Temp 97.4 F L 02/24/23 11:57 Pulse 82 02/24/23 11:57 Resp 20 02/24/23 11:57 BP 118/70 02/24/23 11:57 Pulse Ox 98 02/24/23 13:49 FiO2 21 02/23/23 08:57 Intake & Output 02/23/23 02/24/23 02/24/23 18:59 06:59 18:59 Intake Total 1050 118 Balance 1050 118 Weight 87.5 kg 87.5 kg Intake: Oral 1050 118 Other: # Voids 1 0 # Bowel Movements 0 - Exam Patient is awake, comfortable, no acute distress Examination of the heart S1 and S2 Examination of the lungs bilateral breath sounds are heard Abdomen is soft nontender Examination lower extremity shows edema 1+ bilaterally - Labs CBC & Chem 7: 02/23/23 07:06 02/23/23 07:06 Labs: Abnormal Lab Results - Last 24 Hours (Table) 02/23/23 02/23/23 02/24/23 Range/Units 16:49 20:11 11:33 POC Glucose (mg/dL) 147 H 162 H 188 H (70-110) mg/dL Microbiology - Last 24 Hours (Table) 02/19/23 22:18 Blood Culture - Preliminary Blood 02/19/23 21:58 Blood Culture - Preliminary Blood Assessment and Plan Assessment: #1 ESRD, TTS, right chest permacath #2 encephalopathy, concern for infection/pneumonia #3 acute hypoxic respiratory failure, better #4 anemia with ESRD #5 metabolic bone disease #6 chronic hypotension on midodrine Plan: Hemodialysis in a.m.
[2023-02-24 17:01] VITALS: BP 127/56; PULSE 81; TEMP 97.8
== END 2023-02-24 17:30 | DRG 193 ==
LOC: EC 21:15 → 4SSUR 02-20 00:11 → 3SCARD 02-20 11:19
PROVIDERS: ADMIT Hospitalist; ATTEND Hospitalist
PROC: 5A1D70Z Performance of Urinary Filtration, Intermittent, Less than 6 Hours Per Day (ICD-10-PCS; principal; 2023-02-20)
PROC: 5A09357 Assistance with Respiratory Ventilation, Less than 24 Consecutive Hours, Continuous Positive Airway Pressure (ICD-10-PCS; 2023-02-20)
DX: J15.9 Unspecified bacterial pneumonia (principal); G93.41 Metabolic encephalopathy; I50.33 Acute on chronic diastolic (congestive) heart failure; J96.01 Acute respiratory failure with hypoxia; N18.6 End stage renal disease; I13.2 Hypertensive heart and chronic kidney disease with heart failure and with stage 5 chronic kidney disease, or end stage renal disease; J44.0 Chronic obstructive pulmonary disease with (acute) lower respiratory infection; I48.20 Chronic atrial fibrillation, unspecified; E83.9 Disorder of mineral metabolism, unspecified; I49.5 Sick sinus syndrome; D63.1 Anemia in chronic kidney disease; I95.89 Other hypotension; E11.22 Type 2 diabetes mellitus with diabetic chronic kidney disease; E11.40 Type 2 diabetes mellitus with diabetic neuropathy, unspecified; M06.9 Rheumatoid arthritis, unspecified; Z79.4 Long term (current) use of insulin; Z99.2 Dependence on renal dialysis; Z20.822 Contact with and (suspected) exposure to COVID-19; Z66 Do not resuscitate; E78.5 Hyperlipidemia, unspecified; I25.10 Atherosclerotic heart disease of native coronary artery without angina pectoris; G47.33 Obstructive sleep apnea (adult) (pediatric); E03.9 Hypothyroidism, unspecified; K21.9 Gastro-esophageal reflux disease without esophagitis; M10.9 Gout, unspecified; M19.90 Unspecified osteoarthritis, unspecified site; I25.2 Old myocardial infarction; Z79.01 Long term (current) use of anticoagulants; Z79.890 Hormone replacement therapy; Z79.899 Other long term (current) drug therapy; Z82.49 Family history of ischemic heart disease and other diseases of the circulatory system; Z86.711 Personal history of pulmonary embolism; Z86.73 Personal history of transient ischemic attack (TIA), and cerebral infarction without residual deficits; Z87.440 Personal history of urinary (tract) infections; Z86.19 Personal history of other infectious and parasitic diseases; Z86.14 Personal history of Methicillin resistant Staphylococcus aureus infection; Z95.0 Presence of cardiac pacemaker; Z88.5 Allergy status to narcotic agent; Z88.0 Allergy status to penicillin; Z88.2 Allergy status to sulfonamides
CPT/HCPCS: 36415; 70450; 71045; 71046; 80048; 80053; 82140; 83880; 84100; 84145; 84484; 85025; 85379; 85610; 85730; 86140; 87040; 87636; 90935; 93005; 94640; 94660; 94760; 96361; 96365; 96375; 99285

== ENCOUNTER → 2023-04-22 | Outpatient (CLI) | payer MEDICARE, OTHER ==
[2023-04-23 10:24] LABS: Anisocytosis Slight; HGB 10.6 gm/dL (11.4-16.0); Hypochromasia Moderate; MCH 34.9 pg (25.0-35.0); MCHC 32.1 g/dL (31.0-37.0); Macrocytosis Marked; Platelet Count 138 k/uL (150-450); RBC 3.03 m/uL (3.80-5.40); RDW 16.6 % (11.5-15.5); WBC 8.6 k/uL (3.8-10.6)
[2023-04-23 12:59] LABS: Erythrocyte Sedimentation Rate 37 mm/hr (0-20)
[2023-04-23 16:30] LABS: ALT 14 U/L (8-44); AST 18 U/L (13-35); Albumin 3.4 d/dL (3.8-4.9); Albumin/Globulin Ratio 1.31 Ratio (1.60-3.17); Alkaline Phosphatase 129 U/L (41-126); Blood Urea Nitrogen 34.3 mg/dL (9.0-27.0); Calcium 8.8 mg/dL (8.7-10.3); Carbon Dioxide 24.7 mmol/L (21.6-31.8); Chloride 99 mmol/L (96-109); Globulin 2.6 d/dL (1.6-3.3); Glucose 164 mg/dL (70-110); Potassium 3.9 mmol/L (3.5-5.5); Sodium 139 mmol/L (135-145); Total Bilirubin 0.2 mg/dL (0.3-1.2)
== END | disposition home or self-care (01) ==
LOC: EDSTATUS 09:21 → LABPRL 15:00 → LABMARSNF 15:00
PROVIDERS: ATTEND Internal Medicine Geriatric Medicine
DX: N18.6 End stage renal disease (principal); T14.8XXA Other injury of unspecified body region, initial encounter; M79.662 Pain in left lower leg; Y99.9 Unspecified external cause status
CPT/HCPCS: 80053; 85027; 85652; 86140

== ENCOUNTER → 2023-04-24 | Outpatient (CLI) | payer MEDICARE, OTHER ==
--- NOTE | 2023-04-24 09:12 | US ---
EXAMINATION TYPE: US arterial LE single level DATE OF EXAM: 04/24/2023 8:42 AM CLINICAL INDICATION: Female, 87 years old with history of S81.802S UNSPECIFIED OPEN WOUND; Claudicati on; open wound LLE History of: Smoker: No Hypertension: No Diabetic: Yes Hyperlipidemia: Yes TIA/CVA: No Previous Vascular Surgery: No CAD: No DC: No Vascular Ulcers: Yes Claudication: Yes Gangrene: No Right Brachial Pressure: Deferred due to dialysis access right upper extremity. Left Brachial Pressure: 114 Ankle-Brachial Indices: Right: Unable to obtain Left: Unable to obtain Toe Brachial Indices: Right: Could not occlude Left: Could not occlude Patient is non-ambulatory and exam was done while patient remained in wheelchair. Patient could not t olerate cuff pressure on calves or low thigh. Unable to determine ABIs. IMPRESSION: Nondiagnostic exam as discussed above.
== END | disposition home or self-care (01) ==
LOC: RADUSWWP 07:38
PROVIDERS: ATTEND Family Medicine
DX: S81.802S Unspecified open wound, left lower leg, sequela (principal); E11.51 Type 2 diabetes mellitus with diabetic peripheral angiopathy without gangrene; E78.5 Hyperlipidemia, unspecified; X58.XXXS Exposure to other specified factors, sequela
CPT/HCPCS: 93922